=== PATIENT | female | born 1995 | race Caucasian/White ===

== ENCOUNTER 2022-09-26 07:55 | Outpatient (OUT) | payer MEDICARE, MEDICAID, SELFPAY ==
[2022-09-26 08:30] LABS: Basophils Percent Auto 0.6 % (0.2-2.0); Eosinophils Absolute Auto 0.3 10^3/uL (0.0-0.7); Eosinophils Percent Auto 4.4 % (0.9-7.0); Hematocrit 38.9 % (36.0-48.0); Immature Granulocytes Abs Auto 0.02 10^3/uL (0.00-0.03); Immature Granulocytes Pct Auto 0.3 % (0.0-0.5); Lymphocytes Absolute Auto 3.5 10^3/uL (1.2-3.8); Lymphocytes Percent Auto 48.6 % (20.5-60.0); Mean Corpuscular HGB Conc 33.4 g/dL (29.9-35.2); Mean Corpuscular Hemoglobin 30.9 pg (26.7-34.0); Mean Corpuscular Volume 92.4 fL (81.0-99.0); Monocytes Absolute Auto 0.5 10^3/uL (0.3-0.8); Monocytes Percent Auto 7.2 % (1.7-12.0); Neutrophils Absolute Auto 2.8 10^3/uL (1.4-6.5); Neutrophils Percent Auto 38.9 % (43.0-75.0); Platelet Count 134 10^3/uL (150-450); Red Blood Count 4.21 10^6/uL (4.20-5.40); Red Cell Distribution Width 13.5 % (11.0-15.0); White Blood Count 7.3 10^3/uL (4.0-11.0)
[2022-09-26 16:43] LABS: Anion Gap 12.4; BUN Creatinine Ratio 6.7; Carbon Dioxide 29.7 mmol/L (21.0-32.0); Chloride 100 mmol/L (98-107); Estimated GFR (African America >60 (>=60); Estimated GFR (Non-African Ame >60 (>=60); Free T4 1.25 ng/dL (0.76-1.46); Glucose 77 mg/dL (74-106); Potassium 4.1 mmol/L (3.5-5.1); Sodium 138 mmol/L (136-145)
[2022-09-26 16:44] LABS: Alanine Aminotransferase 18 U/L (14-59); Albumin Globulin Ratio 0.6; Albumin Level 2.8 g/dL (3.4-5.0); Alkaline Phosphatase 68 U/L (46-116); Aspartate Amino Transferase 22 U/L (15-37); Bilirubin Total 0.3 mg/dL (0.2-1.0); Calcium 9.1 mg/dL (8.5-10.1); Globulin 4.9 g/dL; Thyroid Stimulating Hormone 0.053 uIU/mL (0.358-3.740); Total Protein 7.7 g/dL (6.4-8.2)
== END 2022-09-26 07:56 ==
LOC: LAB 08:01
PROVIDERS: PCP Family Medicine; Visit Provider Family Medicine
DX: E06.3 Autoimmune thyroiditis (principal); E04.1 Nontoxic single thyroid nodule
CPT/HCPCS: 36415; 80053; 84439; 84443; 85025

== ENCOUNTER 2022-11-01 06:59 | Outpatient (OUT) | payer MEDICARE, MEDICAID, SELFPAY ==
[2022-11-01 08:43] LABS: Thyroid Stimulating Hormone 0.079 uIU/mL (0.358-3.740)
[2022-11-01 10:52] LABS: Free T4 1.38 ng/dL (0.76-1.46)
== END 2022-11-01 07:00 | disposition home or self-care (01) ==
LOC: LAB 06:59
PROVIDERS: PCP Family Medicine; Visit Provider Family Medicine
DX: E04.1 Nontoxic single thyroid nodule (principal); E06.3 Autoimmune thyroiditis
CPT/HCPCS: 36415; 84439; 84443

== ENCOUNTER 2022-11-13 05:55 | Emergency (ER) | payer MEDICARE, MEDICAID, SELFPAY ==
[2022-11-13 06:09] VITALS: PULSE 55; RESP 18; TEMP 36.6; O2SAT 100; BMI 24.3
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
--- NOTE | 2022-11-13 06:37 | CT_ITS ---
[address] [address] Patient Name: PONCE ESTEVES MRN: [id number] date: 1995 Sex: F Assigned Patient Location: ER Current Patient Location: ED.MAIN Accession/Order Number: [id number] Exam Date: 11/13/2022 06:37 Report Date: 11/13/2022 08:07 At the request of: DENIA RAGLAND Procedure: CT head/brain wo con EXAMINATION: CT head/brain wo con HISTORY: fall COMPARISON: No relevant comparison available. TECHNIQUE: Axial CT images were obtained without IV contrast. Dose reduction techniques were achieved by using automated exposure control and/or adjustment of mA and/or kV according to patient size and/or use of iterative reconstruction technique. FINDINGS: BRAIN: No edema, hemorrhage, mass, acute infarction, or inappropriate atrophy. CSF SPACES: No hydrocephalus, subarachnoid hemorrhage, or mass. Appropriate for age. SKULL: No fracture, mass, or other significant visible lesion. SINUSES: No significant mucosal thickening or fluid on the limited views. ORBITS: No appreciable abnormality on the limited views. OTHER: Skin surface contour irregularity suggestive of laceration and left supraorbital region. No radiopaque foreign body. CT/CT head/brain wo con IMPRESSION: 1. No intracranial hemorrhage or appreciable acute abnormality brain. 2. Left supraorbital soft tissue laceration. No fracture. Electronically authenticated by: KRIS MENDOZA Date: 11/13/2022 08:07
== END 2022-11-13 08:35 | disposition home or self-care (01) ==
PROVIDERS: Emergency Provider Emergency Medicine; PCP Family Medicine
DX: S09.8XXA Other specified injuries of head, initial encounter (principal); S01.112A Laceration without foreign body of left eyelid and periocular area, initial encounter; W19.XXXA Unspecified fall, initial encounter; S80.212A Abrasion, left knee, initial encounter; S80.211A Abrasion, right knee, initial encounter; Z79.899 Other long term (current) drug therapy; Z79.890 Hormone replacement therapy
CPT/HCPCS: 12011; 70450; 99284

== ENCOUNTER 2022-11-20 06:37 | Outpatient (OUT) | payer MEDICARE, MEDICAID, SELFPAY ==
[2022-11-20 06:51] LABS: Basophils Absolute Auto 0.1 10^3/uL (0.0-0.1); Basophils Percent Auto 0.7 % (0.2-2.0); Eosinophils Absolute Auto 0.3 10^3/uL (0.0-0.7); Eosinophils Percent Auto 4.2 % (0.9-7.0); Hematocrit 38.2 % (36.0-48.0); Hemoglobin 12.8 g/dL (12.0-16.0); Immature Granulocytes Abs Auto 0.02 10^3/uL (0.00-0.03); Immature Granulocytes Pct Auto 0.3 % (0.0-0.5); Lymphocytes Absolute Auto 3.6 10^3/uL (1.2-3.8); Lymphocytes Percent Auto 49.1 % (20.5-60.0); Mean Corpuscular HGB Conc 33.5 g/dL (29.9-35.2); Mean Corpuscular Hemoglobin 30.8 pg (26.7-34.0); Mean Corpuscular Volume 91.8 fL (81.0-99.0); Mean Platelet Volume 9.8 fL (9.5-13.5); Monocytes Absolute Auto 0.6 10^3/uL (0.3-0.8); Neutrophils Absolute Auto 2.8 10^3/uL (1.4-6.5); Neutrophils Percent Auto 37.7 % (43.0-75.0); Platelet Count 139 10^3/uL (150-450); Red Blood Count 4.16 10^6/uL (4.20-5.40); Red Cell Distribution Width 14.6 % (11.0-15.0); White Blood Count 7.3 10^3/uL (4.0-11.0)
[2022-11-20 08:56] LABS: Alanine Aminotransferase 18 U/L (14-59); Albumin Globulin Ratio 0.7; Albumin Level 2.9 g/dL (3.4-5.0); Alkaline Phosphatase 57 U/L (46-116); Anion Gap 10.1; Aspartate Amino Transferase 20 U/L (15-37); BUN Creatinine Ratio 7.5; Bilirubin Total 0.3 mg/dL (0.2-1.0); Calcium 8.4 mg/dL (8.5-10.1); Carbon Dioxide 31.6 mmol/L (21.0-32.0); Chloride 98 mmol/L (98-107); Estimated GFR (African America >60 (>=60); Estimated GFR (Non-African Ame >60 (>=60); Globulin 4.1 g/dL; Glucose 67 mg/dL (74-106); Potassium 3.7 mmol/L (3.5-5.1); Sodium 136 mmol/L (136-145)
[2022-11-22 13:08] LABS: Lamotrigine (Lamictal), Serum 12.4 ug/mL (2.0-20.0)
== END 2022-11-20 06:38 | disposition home or self-care (01) ==
LOC: LAB 06:37
PROVIDERS: PCP Family Medicine; Visit Provider Family Medicine
DX: G40.909 Epilepsy, unspecified, not intractable, without status epilepticus (principal); R42 Dizziness and giddiness; R26.81 Unsteadiness on feet
CPT/HCPCS: 36415; 80053; 80164; 80175; 85025

== ENCOUNTER 2022-12-18 18:31 | Outpatient (REF) | payer MEDICARE, MEDICAID, SELFPAY ==
[2022-12-18 19:35] LABS: Bilirubin Urine NEGATIVE (NEGATIVE); Blood Urine SMALL (NEGATIVE); Clarity Urine CLEAR (CLEAR); Color Urine YELLOW (YELLOW); Glucose Urine UA NEGATIVE (NEGATIVE); Ketones Urine 15 mg/dL (NEGATIVE); Leukocyte Esterase Urine TRACE (NEGATIVE); Nitrite Urine NEGATIVE (NEGATIVE); Protein Urine 30 mg/dL (NEG/TRACE); Specific Gravity Urine 1.025 (1.005-1.025)
[2022-12-18 19:36] LABS: Urine Microscopic Indicated YES
[2022-12-18 19:51] LABS: Bacteria Urine SMALL #/HPF (NONE SEEN); Cast Seen? NONE SEEN #/LPF (NONE SEEN); Crystals Seen? None Seen #/HPF (None Seen); Mucus Urine TRACE (NONE SEEN); Squamous Epithelial Cell Urine FEW #/LPF (NONE/RARE); Urine Culture Indicated YES
== END 2022-12-18 18:32 | disposition home or self-care (01) ==
LOC: LAB 18:31
PROVIDERS: PCP Family Medicine; Visit Provider Internal Medicine
DX: R30.9 Painful micturition, unspecified (principal); R82.90 Unspecified abnormal findings in urine; R39.198 Other difficulties with micturition
CPT/HCPCS: 81001; 87086; 87150

== ENCOUNTER 2023-03-01 09:30 | Emergency (ER) | payer MEDICARE, MEDICAID, SELFPAY ==
[2023-03-01 09:32] VITALS: BP 108/76; PULSE 98; RESP 18; TEMP 36.4; O2SAT 99; BMI 26.5
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
[2023-03-01 10:43] VITALS: O2SAT 99
[2023-03-01] MEDS: LIDOCAINE HCL 1%-EPINEPHRINE 1:100,000 20 ML MDV INJ (10:45)
--- NOTE | 2023-03-01 10:47 | PC.NURSE ---
1015 ketamine 200mg given im to left thigh spo2 applied to patient resp at bedside and [address] flowers pt with sr up x 2 pt placed on monitor 1020 dr flowers sutures patient at this time 1040 suture completed pt waking up at this time pt given tetanus shot at this time to left deeltoid pt tolerated well 1045 wound cleansd and bacitracin and bandaid applied to left eyebrow 1050 [facility] caregiver at bedside
--- NOTE | 2023-03-08 07:25 | PC.NURSE ---
03/01/23 pt was given adacel during er visit due to tetanus status not utd pt lily well
== END 2023-03-01 11:48 | disposition home or self-care (01) ==
PROVIDERS: Emergency Provider Emergency Medicine; PCP Family Medicine
DX: S01.112A Laceration without foreign body of left eyelid and periocular area, initial encounter (principal); S09.8XXA Other specified injuries of head, initial encounter; W01.10XA Fall on same level from slipping, tripping and stumbling with subsequent striking against unspecified object, initial encounter; Z79.899 Other long term (current) drug therapy; Z79.890 Hormone replacement therapy; F41.9 Anxiety disorder, unspecified; F84.0 Autistic disorder; G47.9 Sleep disorder, unspecified; R56.9 Unspecified convulsions
CPT/HCPCS: 12013; 90471; 90715; 96372; 99152; 99291

== ENCOUNTER 2023-05-05 18:14 | Emergency (ER) | payer MEDICARE, MEDICAID, SELFPAY ==
[2023-05-05 18:15] VITALS: BP 110/58; PULSE 86; RESP 16; TEMP 36.5; O2SAT 100; BMI 21.9
--- NOTE | 2023-05-05 18:28 | PC.NURSE ---
skin marker used to rigo area of concern, blister opened and culture obtained, Clean dry sterile dressing applied by Curtis Waddell at bedside
--- NOTE | 2023-05-05 18:28 | ED.SKABFB1 ---
HPI - Skin/Abscess/Foreign Bdy General Chief complaint: Skin/Abscess/Foreign Body Stated complaint: Wound Check Time Seen by Provider: 05/05/23 18:25 Source: patient Source comment: [facility], EMS Mode of arrival: ambulance History of Present Illness HPI narrative: patient is a 28-year-old female from [facility] [place], history of autism, partially verbal. Patient has developed a wound on her right dorsal hand, localized erythema and swelling with formation of purulent filled blister noted. Patient likely picks and has small scabs noted in different areas as well. This wound on the dorsal hand has some erythema surrounding it concerning for infection, no streaking. Patient was started on Keflex for, has had three doses but the area appears slightly worse and not improving. Transferred to Emergency Room for evaluation of hand wound. Patient alert to person, able to localize pain to the right hand. History comes from EMS and care staff. Concern for abscess, presentation favor cellulitis with infected blister Related Data Home Medications Medication Instructions Recorded Confirmed ammonium lactate 12 % topical cream applic topical 11/13/22 buspirone 30 mg tablet mg 11/13/22 clonidine HCl 0.2 mg tablet mg 11/13/22 divalproex 125 mg capsule,delayed mg PO 11/13/22 release sprinkle famotidine 40 mg tablet mg 11/13/22 guanfacine 2 mg tablet mg 11/13/22 lamotrigine 100 mg tablet mg 11/13/22 lamotrigine 200 mg tablet mg 11/13/22 levothyroxine 150 mcg tablet mcg 11/13/22 (Synthroid) loratadine 10 mg tablet mg 11/13/22 melatonin 3 mg tablet mg 11/13/22 norethindrone 1 mg-ethinyl tab 11/13/22 estradiol 35 mcg tablet (Nortrel) polyethylene glycol 3350 17 g 11/13/22 gram/dose oral powder risperidone 1 mg tablet 3 mg PO BID 11/13/22 11/13/22 Previous Rx's Medication Instructions Recorded sulfamethoxazole 800 1 tab PO Q12H 7 days #14 tabs 05/05/23 mg-trimethoprim 160 mg tablet (Bactrim DS) Allergies Allergy/AdvReac Type Severity Reaction Status Date / Time ethosuximide [From Zarontin] Allergy Unknown Verified 11/13/22 06:46 linaclotide [From Linzess] Allergy Unknown Verified 11/13/22 06:46 Review of Systems ROS Constitutional: Denies: fever or chills Cardiovascular: Denies: chest pain or palpitations Integumentary/Breast: Reports: other (infected blister right dorsal hand) Neurological: Denies: headache Psychiatric: Denies: anxiety Hematologic/Lymphatic: Denies: easy bruising Allergic/Immunologic: Denies: hives [facility] Medical History (Updated 05/05/23 @ 18:49 by PERRY Tejeda) Sleep disorder ?G47.9 - Sleep disorder, unspecified (ICD-10) Hypothyroidism ?E03.9 - Hypothyroidism, unspecified (ICD-10) Seizures ?R56.9 - Unspecified convulsions (ICD-10) Autism ?F84.0 - Autistic disorder (ICD-10) Anxiety ?F41.9 - Anxiety disorder, unspecified (ICD-10) Social History Smoking status: Never smoker Exam Narrative Exam Narrative: Nurses notes and vital signs reviewed and patient is not hypoxic. General: The patient appears well and in no apparent distress. Patient is resting comfortably on cart. Skin: Warm, dry, no pallor noted.patient has a dime-sized fluctuant blister right dorsal hand transparent with visible purulent material, 0.5 cm surrounding erythematous base, no tenderness or erythema to the palm of the hand. no evidence of tendon involvement. Head: atraumatic Neck: Supple, trachea mid-line, no tenderness, no lymphadenopathy Eye: no conjunctival injection Cardiovascular: Regular Rate and Rhythm Respiratory: Patient is in no distress, no accessory muscle use, lungs are clear to auscultation, no wheezing, rales or rhonchi. Chest Wall: no tenderness Musculoskeletal: contractures, history of autism.patient moves fingers hand and wrist freely, neg knavel's signs. Localized infected blister right dorsal hand just proximal to the 3rd MCP joint. No involvement of the palm, no fluctuance of underlying tissue but well domed blister noted with scab at the apex.no streaking or lymphangitis noted. No pain to the wrist joint, patient has small scabs to the left hand with no evidence of infection. GI: Normal bowel sounds, no tenderness to palpation, no masses appreciated. No rebound, guarding, or rigidity noted. Neurological: alert to person Psychiatric: Cooperative Constitutional Vital Signs, click to edit/add: Last Vital Signs Temp 97.7 F 05/05/23 18:15 Pulse 86 05/05/23 18:15 Resp 16 05/05/23 18:15 BP 110/58 05/05/23 18:15 Pulse Ox 100 05/05/23 18:15 O2 Del Method Room Air 05/05/23 18:15 Course Vital Signs Vital signs: Vital Signs Temperature 97.7 F 05/05/23 18:15 Pulse Rate 86 05/05/23 18:15 Respiratory Rate 16 05/05/23 18:15 Blood Pressure 110/58 05/05/23 18:15 Pulse Oximetry 100 05/05/23 18:15 Oxygen Delivery Method Room Air 05/05/23 18:15 Temperature 97.7 F 05/05/23 18:15 Pulse Rate 86 05/05/23 18:15 Respiratory Rate 16 05/05/23 18:15 Blood Pressure 110/58 05/05/23 18:15 Pulse Oximetry 100 05/05/23 18:15 Oxygen Delivery Method Room Air 05/05/23 18:15 MDM - Skin/Abscess/Foreign Bdy MDM Narrative Medical decision making narrative: Patient given Motrin for pain, infected blister suspected coming from base of scabbing, superficial. Patient had three doses of Keflex. Appearance favors possible MRSA. We'll cover with Bactrim as well. Wound culture pending, precautions discussed with care facility. They may use soap and water to the wound for cleaning and wet to dry dressings pending further healing. The patient is to followup with primary care physician in the coming week for reevaluation pending wound culture or to return to the emergency department should any of the signs or symptoms worsen or new symptoms develop. Patient had questions answered. The patient agrees with the following Diagnosis and Treatment plan and the patient will be discharged home. Discharge Plan Discharge Chief Complaint: Skin/Abscess/Foreign Body Clinical Impression: Infected blister Cellulitis Qualifiers: Site of cellulitis: extremity Site of cellulitis of extremity: upper extremity Laterality: right Qualified Code(s): L03.113 - Cellulitis of right upper limb Patient Disposition: Home, Self-Care Time of Disposition Decision: 18:30 Condition: Good Prescriptions / Home Meds: New sulfamethoxazole-trimethoprim [Bactrim DS] 800-160 mg tablet 1 tab PO Q12H 7 Days Qty: 14 0RF No Action lamotrigine 200 mg tablet famotidine 40 mg tablet melatonin 3 mg tablet clonidine HCl 0.2 mg tablet buspirone 30 mg tablet levothyroxine [Synthroid] 150 mcg tablet ammonium lactate 12 % cream TOPICAL polyethylene glycol 3350 17 gram/dose powder guanfacine 2 mg tablet divalproex 125 mg capsule, delayed rel sprinkle PO risperidone 1 mg tablet 3 mg PO BID lamotrigine 100 mg tablet loratadine 10 mg tablet Nortrel 1/35 (28) 1-35 mg-mcg tablet Instructions: Wound Infection (ED), Cellulitis (ED) Additional Instructions: wound culture pending,( SUSPECT MRSA- STANDARD PRECAUTIONS PENDING CULTURE) suspect infected blister, drained ad Bactrim one tablet twice a day for seven days to current Keflex prescription. Take with food. May apply wet to dry dressings until skin heals. Recommend soap and water daily. Stand Alone Forms: Portal Instructions Referrals: ADRIEL TILLEY DO [Primary Care Provider] - 1 week ED ID Incision & Drainage Moderate Sedation Message Please read if using moderate sedation: infected bursa right dorsal hand, dimes size localized erythema at margins favoring cellulitis. Fluctuant skin bubble ( see through blister) with purulent material beneath stemming from apex of scab distally. Skin cleansed with alcohol prep pad, utilizing aseptic technique a left blade scalpel was used to unroof the posterior and purulent/brown material expressed and collected with wound culture swab. No evidence of bleeding, underlying dermis appears intact and full thickness abscess not suspected. Patient tolerated this well without pain. Dry sterile gauze pad applied along with Rah bandage to secure. Neurovascular intact status post drainage procedure.
--- OUTSIDE RECORDS SUMMARY | 2023-05-05 18:33 | XMS_ITS | CCD ---
Author Name Unknown Address [address] [place] [address] Organization [facility] Care Team Providers Care Manager Of Tires Sales Name Role Phone PHYSICIAN, DEFAULT Unavailable Unavailable PHYSICIAN, DEFAULT Unavailable Unavailable PB BARTH Unavailable Unavailable Unavailable Primary Care Provider Unavailabl e PROVIDER, UNKNOWN Attending Unavailable PROVIDER, UNKNOWN Admitting Unavailable TILLEY, DR ADRIEL Craft Admitting Unavailable TILLEY, DR ADRIEL Craft Attending Unavailable TILLEY, DR ADRIEL Craft Primary Care Unavailable TILLEY, DR ADRIEL Craft Consulting Unavailable MISC, DR HERNANDEZ Admitting Unavailable MISC, DR HERNANDEZ Attending Unavailable TILLEY, DR ADRIEL Craft Primary Care Unavailable MISC, DR HERNANDEZ Consulting Unavailable TILLEY, DR ADRIEL Craft Admitting Unavailable TILLEY, DR ADRIEL Craft Attending Unavailable TILLEY, DR ADRIEL Craft Primary Care Unavailable TILLEY, DR ADRIEL Craft Consulting Unavailable MISC, DR HERNANDEZ Admitting Unavailable MISC, DR HERNANDEZ Attending Unavailable REQUEST, DR OROZCO LISTED Primary Care Unavaila ble MISC, DR HERNANDEZ Consulting Unavailable ZIEBER, DR KRIS White Consulting Unavailable TILLEY, DR ADRIEL Craft Admitting Unavailable TILLEY, DR ADRIEL Craft Attending Unavailable REQUEST, DR OROZCO LISTED Primary Care Unavaila ble TILLEY, DR ADRIEL Craft Consulting Unavailable HAY ., DR BLOCK Consulting Unavailable HAY ., DR BLOCK Admitting Unavailable HAY ., DR BLOCK Attending Unavailable TILLEY, DR ADRIEL Craft Primary Care Unavailable REQUEST, DR OROZCO LISTED Primary Care Unavaila ble TILLEY, DR ADRIEL Craft Admitting Unavailable TILLEY, DR ADRIEL Craft Attending Unavailable TILLEY, DR ADRIEL Craft Consulting Unavailable MISC, DR HERNANDEZ Admitting Unavailable MISC, DR HERNANDEZ Attending Unavailable REQUEST, DR OROZCO LISTED Primary Care Unavaila ble WEST, DR MATILDE Stanley Consulting Unavailable MISC, DR HERNANDEZ Consulting Unavailable Allergies Allergy Classification Reported Allergen(s) Allergy Type Date of Onset Reaction(s) Facility (3 sources) Ethosuximide; Translations: [ETHOSUXIMIDE] Drug Allergy 09-15-[address] [facility] (1 source) Allopurinol Drug Allergy 07-16-2013 [facility] (1 source) Ethosuximide Drug Allergy 07-16-2013 [facility] Medications Current Medications Medication Drug Class(es) Dates Sig (Normalized) Sig (Original) chlorhexidine gluconate 1.2 mg/ml mouthwash (2 sources) Start: 09-15-2014 take 15 mL by mouth twice daily chlorhexidine (PERIDEX) 0.12 % oral solution Take 15 mL by mouth 2 times daily. 1 Bottle 0 09/15/2014 Active cloNIDine (2 sources) Central alpha-2 Adrenergic Agonist CLONIDINE HCL ORAL Take by mouth. 0 Active docusate sodium 100 mg oral capsule (2 sources) take 1 capsule by mouth twice daily docusate sodium (COLACE) 100 MG capsule Take 100 mg by mouth 2 times daily. 0 Active fluticasone (2 sources) Corticosteroid Fluticasone Propionate (FLONASE NASAL) [place] into each nostril. 0 Active ibuprofen 600 mg oral tablet (2 sources) Nonsteroidal Anti-inflammatory Drug Start: 09-15-2014 take 1 tablet by mouth every six hours as needed for pain ibuprofen (MOTRIN) 600 MG tablet Take 1 Tab by mouth every 6 hours as needed for Pain. 30 Tab 1 09/15/2014 Active lactobacillus acidophilus 16 mg oral capsule (2 sources) Lactobacillus (ACIDOPHILUS) CAPS Take by mouth. 0 Active Selenium (SELENIMIN ORAL) (2 sources) Selenium (SELENI MIN ORAL) Take by mouth. 0 Active sennosides, nursing home 15 mg oral tablet (2 sources) take 1 tablet by mouth once daily as needed for constipation Sennosides (SENNA) 15 MG tablet Take 1 Tab by mouth daily as needed for Constipation. 0 Active topiramate 25 mg oral tablet (2 sources) take 3 tablets by mouth twice daily topiramate (TOPIRAGEN) 25 MG tablet Take 75 mg by mouth 2 times daily. 0 Active trihexyphenidyl hydrochloride 2 mg oral tablet (2 sources) take 1 tablet by mouth three times daily trihexyphenidyl 2 MG tablet Take 2 mg by mouth 3 times daily. 0 Active zinc gluconate 50 mg oral tablet (2 sources) Zinc Gluconate 5 0 MG TABS Take by mouth. 0 Active Problems Problem Classification Problem Date Documented Da te Episodic/Chronic E Codes: Fall (1 source) Fall on same level from slipping, tripping and stumbling with subsequent striking against unspecified object, initial encounter; Translations: [FALL SAME LVL SLIP STRK UNS OBJ INT] Onset: 07-23-2022 Episodic Epilepsy; convulsions (5 sources) Epilepsy, unspecified, not intractable, without status epilepticus; Translations: [EPILEPSY UNS NOT INTRACT W/O SE] Onset: 04-08-2022 Chronic Genitourinary symptoms and ill-defined conditions (1 source) Unspecified urinary incontinence; Translations: [UNSPECIFIED URINARY INCONTINENCE] Onset: 08-24-2022 Chronic Genitourinary symptoms and ill-defined conditions (4 sources) Anuria and oliguria; Translations: [ANURIA AND OLIGURIA] Onset: 08-21-2022 Episodic Menopausal disorders (1 source) Hormone replacement therapy; Translations: [HORMONE REPLACEMENT THERAPY] Onset: 07-23-2022 Episodic Open wounds of head; neck; and trunk (4 sources) Laceration without foreign body of other part of head, initial encounter; Translations: [LAC W/O FB OTH PART HEAD INIT ENC] Onset: 07-21-2022 Episodic Other aftercare (5 sources) Other residential (current) drug therapy; Translations: [OTH ASSISTED CURRENT DRUG THERAPY] Onset: 04-03-2022 Episodic Superficial injury; contusion (1 source) Contusion of other part of head, initial encounter; Translations: [CONTUS OTH PRT HEAD INITIAL ENCNTR] Onset: 07-23-2022 Episodic Thyroid disorders (13 sources) Hypothyroidism, unspecified; Translations: [Autoimmune thyroiditis] Onset: 06-27-2022 Chronic Results Test Name Value Interpretation Reference Range Facility FREE T4on 08-29-2022 Free T4 [Mass/Vol] 1.76 ng/dL Critically high 0.76-1.46 [facility] Comment on above: Performed By: #### F T4 #### [facility] [address] [place], [place] [address] Dr. Volodymyr Paez TSHon 08-29-2022 TSH Qn m[IU]/L Critically low 0.358-3.740 [facility] Comment on above: Performed By: #### T SH #### [facility] [address] [place] [address] Dr. Volodymyr Paez CULTURE URINEon 08-24-2022 CULTURE URINE Isolate 1 Streptococcus agalactiae >100,000 cfu/mL of ORGANISM 1 Streptococcus agalactiae ANTIBIOTIC M.I.C RX STATUS Benzylpenicillin <=0.06 S F Ampicillin <=0.25 S F Cefotaxime <=0.12 S F Ceftriaxone <=0.12 S F Levofloxacin 1 S F Inducible Clindamycin Resistance Neg NEG F Erythromycin >=8 R F Clindamycin >=1 R F Linezolid <=2 S F Vancomycin 0.5 S F Tetracycline >=16 R F Normal [facility] Comment on above: Performed By: #### T SH, CMP #### [facility] [address] [place] [address] Dr. Volodymyr Paez UA (CLEAN/CATCH) ELECTRO MECHANICAL DESIGNER/MICRO I F IND.on 08-21-2022 Bilirubin Ql (U) Negative Normal NEGATIVE [facility] Comment on above: Performed By: #### U ACSIND ICRO #### [facility] [address] [place] [address] Dr. Volodymyr Paez Clarity (U) CLEAR Normal CLEAR [facility] Comment on above: Performed By: #### U ACSSHAHEEN, ICRO #### [facility] [address] [place] [address] Dr. Volodymyr Paez Color (U) LT. YELLOW Normal YELLOW [facility] Comment on above: Performed By: #### U ACSIND UMICRO #### [facility] [address] [place] [address] Dr. Volodymyr Paez Glucose Ql (U) Negative Normal NEGATIVE [facility] Comment on above: Performed By: #### U ACSIND, UMICRO #### [facility] [address] [place] [address] Dr. Volodymyr Paez Hemoglobin Ql (U) Negative Normal NEGATIVE [facility] Comment on above: Performed By: #### U ACSIND, UMICRO #### [facility] [address] [place] [address] Dr. Volodymyr Paez Ketones Ql (U) Negative Normal NEGATIVE [facility] Comment on above: Performed By: #### U ACSIND, UMICRO #### [facility] [address] [place] [address] [address] Volodymyr Paez LEUKOCYTES SMALL Abnormal NEGATIVE [facility] Comment on above: Performed By: #### U ACSIND, UMICRO #### [facility] [address] [place] [address] [address] Volodymyr Paez Nitrite Ql (U) Negative Normal NEGATIVE [facility] Comment on above: Performed By: #### U ACSSHAHEEN, UMICRO #### [facility] [address] [place] [address] [address] Volodymyr Paez pH (U) 7.0 [pH] Normal 5-9 [facility] Comment on above: Performed By: #### U ACSSHAHEEN, UMICRO #### [facility] [address] [place] [address] Dr. Volodymyr Paez SPEC GRAVITY 1.020 Normal 1.005-<=1.025 [facility] Comment on above: Performed By: #### U ACSSHAHEEN, ICRO #### [facility] [address] [place] [address] Dr. Volodymyr Paez UA PROTEIN Negative Normal NEGATIVE/ TRACE [facility] Comment on above: Performed By: #### U ACSSHAHEEN, UMICRO #### [facility] [address] [place] [address] Dr. Volodymyr Paez UR MICRO IND INDICATED Normal [facility] Comment on above: Performed By: #### U ACSSHAHEEN, UMICRO #### [facility] [address] [place] [address] Dr. Volodymyr Paez Urobilinogen Qn (U) 0.2 {Leta'U}/dL Normal 0.2 - 1. 0 [facility] Comment on above: Performed By: #### U ACSSHAHEEN, UMICRO #### [facility] [address] [place] [address] [address] Volodymyr Paez URINE MICROSCOPIC ONLYon BACTERIA SMALL Abnormal NONE SEEN [facility] Comment on above: Performed By: #### U ACSIND, UMICRO #### [facility] [address] [place] [address] Dr. Volodymyr Paez Bacteria identified Cx Nom (U) INDICATED Normal [facility] Comment on above: Performed By: #### U ACSSHAHEEN, UMICRO #### [facility] [address] [place] [address] [address] Volodymyr Paez CAST NONE SEEN Normal NONE SEEN [facility] Comment on above: Performed By: #### U ACSSHAHEEN, UMICRO #### [facility] [address] [place] [address] Dr. Volodymyr Paez Crystals LM Nom (Urine sed) NONE SEEN Normal NONE SEEN [facility] Comment on above: Performed By: #### U ACSSHAHEEN ICRO #### [facility] [address] [place] [address] Dr. Volodymyr Paez Epithelial cells LM Ql (Urine sed) MODERATE Abnormal NONE SEEN /RARE [facility] Comment on above: Performed By: #### U ACSSHAHEEN ICRO #### [facility] [address] [place] [address] Dr. Volodymyr Paez MUCOUS TRACE Abnormal NONE SEEN [facility] Comment on above: Performed By: #### U ACSSHAHEEN ICRO #### [facility] [address] [place] [address] Dr. Volodymyr Paez RBC 2-5 Abnormal 0-2 [facility] Comment on above: Performed By: #### U VERA UMICRO #### [facility] [address] [place] [address] Dr. Volodymyr Paez WBC 10-20 Abnormal NONE SEEN [facility] Comment on above: Performed By: #### U ACSSHAHEEN UMICRO #### [facility] [address] [place] [address] Dr. Volodymyr Paez LAMOTRIGINEon 08-13-2022 Lamotrigine, Serum 11.2 ug/mL Normal 2.0-20.0 [facility] Comment on above: Result Comment: Dete ction Limit = 1.0 Performed By: #### T SH, CMP #### [facility] [address] [place] [address] [address] Volodymyr Paez CBC AUTO DIFFon 08-09-2022 BASO # 0.0 103/ul Normal 0.0-0.1 [facility] Comment on above: Performed By: #### C BC #### [facility] [address] [place] [address] Dr. Volodymyr Paez Basophils/100 WBC (Bld) 0.4 % Normal 0.2-2.0 [facility] Comment on above: Performed By: #### C BC #### [facility] [address] [place] [address] Dr. Volodymyr Paez EO # 0.4 103/ul Normal 0.0-0.7 [facility] Comment on above: Performed By: #### C BC #### [facility] [address] [place] [address] Dr. Volodymyr Paez Eosinophils/100 WBC (Bld) 4.3 % Normal 0.9-7.0 [facility] Comment on above: Performed By: #### C BC #### [facility] [address] [place] [address] Dr. Volodymyr Paez Erythrocyte distribution width (RBC) [Ratio] 13.2 % Normal 11.0-15.0 [facility] Comment on above: Performed By: #### C BC #### [facility] [address] [place] [address] Dr. Volodymyr Paez Hematocrit (Bld) [Volume fraction] 40.2 % Normal 36.0-48.0 [facility] Comment on above: Performed By: #### C BC #### [facility] [address] [place] [address] Dr. Volodymyr Paez Hemoglobin (Bld) [Mass/Vol] 13.8 g/dL Normal 12.0-16.0 [facility] Comment on above: Performed By: #### C BC #### [facility] [address] [place] [address] Dr. Volodymyr Paez IG # 0.02 10e3/ul Normal 0.00-0.03 [facility] Comment on above: Performed By: #### C BC #### [facility] [address] [place] [address] Dr. Volodymyr Paez IG % 0.2 % Normal 0.0-0.5 [facility] Comment on above: Performed By: #### C BC #### [facility] [address] [place] [address] Dr. Volodymyr Paez LYMPH # 4.3 103/ul Critically high 1.2-3.8 [facility] Comment on above: Performed By: #### C BC #### [facility] [address] [place] [address] Dr. Volodymyr Paez Lymphocytes/100 WBC (Bld) 51.8 % Normal 20.5-60.0 [facility] Comment on above: Performed By: #### C BC #### [facility] [address] [place] [address] Dr. Volodymyr Paez MANUAL DIFF REQ NO Normal [facility] Comment on above: Performed By: #### C BC #### [facility] [address] [place] [address] Dr. Volodymyr Paez MCH (RBC) [Entitic mass] 31.0 pg Normal 26.7-34.0 [facility] Comment on above: Performed By: #### C BC #### [facility] [address] [place] [address] Dr. Volodymyr Paez MCHC (RBC) [Mass/Vol] 34.3 g/dL Normal 29.9-35.2 [facility] Comment on above: Performed By: #### C BC #### [facility] [address] [place] [address] Dr. Volodymyr Paez MCV (RBC) [Entitic vol] 90.3 fL Normal 81.0-99.0 [facility] Comment on above: Performed By: #### C BC #### [facility] [address] [place] [address] Dr. Volodymyr Paez MONO # 0.9 103/ul Critically high 0.3-0.8 [facility] Comment on above: Performed By: #### C BC #### [facility] [address] [place] [address] Dr. Volodymyr Paez Monocytes/100 WBC (Bld) 10.4 % Normal 1.7-12.0 [facility] Comment on above: Performed By: #### C BC #### [facility] [address] [place] [address] Dr. Volodymyr Paez NEUT # 2.7 103/ul Normal 1.4-6.5 [facility] Comment on above: Performed By: #### C BC #### [facility] [address] [place] [address] Dr. Volodymyr Paez Neutrophils/100 WBC (Bld) 32.9 % Critically low 43.0-75.0 [facility] Comment on above: Performed By: #### C BC #### [facility] [address] [place] [address] Dr. Volodymyr Paez Platelet mean volume (Bld) [Entitic vol] 10.3 fL Normal 9.5-13.5 [facility] Comment on above: Performed By: #### C BC #### [facility] [address] [place] [address] Dr. Volodymyr Paez PLT 231 103/ul Normal 150-450 [facility] Comment on above: Performed By: #### C BC #### [facility] [address] [place] [address] Dr. Volodymyr Paez RBC 4.45 106/ul Normal 4.20-5.40 [facility] Comment on above: Performed By: #### C BC #### [facility] [address] [place] [address] Dr. Volodymyr Paez WBC 8.2 103/ul Normal 4.0-11.0 [facility] Comment on above: Performed By: #### C BC #### [facility] [address] [place] [address] Dr. Volodymyr Paez DEPAKENE/ VALPROIC ACIDon DEPAKENE 80.3 ug/ml Normal 50.0-100.0 [facility] Comment on above: Performed By: #### V ALP #### [facility] [address] [place] [address] Dr. Volodymyr Paez US THYROIDon 07-10-2022 US THYROID EXAMINATION: US THYROID HISTORY: Autoimmune thyroiditis COMPARISON: 10/24/2021 TECHNIQUE: Sonographic images of the thyroid gland were obtained. FINDINGS: The right thyroid lobe is normal in size and contour measuring 4.1 x 0.6 x 0.9 cm. Mildly heterogeneous echotexture with no focal nodules. The thyroid isthmus measures 3 mm. No focal nodules. The left thyroid lobe measures 4.3 x 0.8 x 1.1 cm. Mildly heterogeneous echotexture. 2 focal nodules, one nodule measuring over 5 mm Nodule 1:0.6 x 0.6 x 0.3 cm. Solid, hypoechoic, wide, smooth margins, no calcifications. TR 4 IMPRESSION: Diffuse thyroid atrophy 2 subcentimeter left thyroid nodules measuring up to 6 mm. No follow-up required TI-RADS: [employer] [place] [employer] TI-RADS committee's white paper recommendations for thyroid lesions classified as TR4 (moderately suspicious) are listed below: > 1.0 cm. Follow-up ultrasound in 1, 2, 3, and 5 years. > 1.5 cm. FNA. J. Am Chidi Radiol 2017;14:[id number]. Electronically authenticated by: MATILDE WATERMAN Date: 2022-07-10 13:01 Normal [facility] LAMOTRIGINEon 06-29-2022 Lamotrigine, Serum 14.2 ug/mL Normal 2.0-20.0 [facility] Comment on above: Result Comment: Dete ction Limit = 1.0 Performed By: #### T AKIKO, CMP #### [facility] [address] [place] [address] Dr. Volodymyr Paez CBC AUTO DIFFon 06-27-2022 BASO # 0.1 103/ul Normal 0.0-0.1 [facility] Comment on above: Performed By: #### T AKIKO, CMP #### [facility] [address] [place] [address] Dr. Volodymyr Paez Basophils/100 WBC (Bld) 0.7 % Normal 0.2-2.0 [facility] Comment on above: Performed By: #### T AKIKO, CMP #### [facility] [address] [place] [address] Dr. Volodymyr Paez EO # 0.4 103/ul Normal 0.0-0.7 [facility] Comment on above: Performed By: #### T SH, CMP #### [facility] [address] [place] [address] Dr. Volodymyr Paez Eosinophils/100 WBC (Bld) 5.1 % Normal 0.9-7.0 [facility] Comment on above: Performed By: #### T SH, CMP #### [facility] [address] [place] [address] Dr. Volodymyr Paez Erythrocyte distribution width (RBC) [Ratio] 13.1 % Normal 11.0-15.0 [facility] Comment on above: Performed By: #### T AKIKO, CMP #### [facility] [address] [place] [address] Dr. Volodymyr Paez Hematocrit (Bld) [Volume fraction] 39.7 % Normal 36.0-48.0 [facility] Comment on above: Performed By: #### T SH, CMP #### [facility] [address] [place] [address] Dr. Volodymyr Paez Hemoglobin (Bld) [Mass/Vol] 13.3 g/dL Normal 12.0-16.0 [facility] Comment on above: Performed By: #### T AKIKO, CMP #### [facility] [address] [place] [address] Dr. Volodymyr Paez IG # 0.02 10e3/ul Normal 0.00-0.03 [facility] Comment on above: Performed By: #### T SH, CMP #### [facility] [address] [place] [address] Dr. Volodymyr Paez IG % 0.3 % Normal 0.0-0.5 [facility] Comment on above: Performed By: #### T SH, CMP #### [facility] [address] [place] [address] Dr. Volodymyr Paez LYMPH # 3.6 103/ul Normal 1.2-3.8 [facility] Comment on above: Performed By: #### T SH, CMP #### [facility] [address] [place] [address] Dr. Volodymyr Paez Lymphocytes/100 WBC (Bld) 47.4 % Normal 20.5-60.0 [facility] Comment on above: Performed By: #### T SH, CMP #### [facility] [address] [place] [address] Dr. Volodymyr Paez MANUAL DIFF REQ NO Normal [facility] Comment on above: Performed By: #### T SH, CMP #### [facility] [address] [place] [address] Dr. Volodymyr Paez MCH (RBC) [Entitic mass] 30.3 pg Normal 26.7-34.0 [facility] Comment on above: Performed By: #### T SH, CMP #### [facility] [address] [place] [address] Dr. Volodymyr Paez MCHC (RBC) [Mass/Vol] 33.5 g/dL Normal 29.9-35.2 [facility] Comment on above: Performed By: #### T SH, CMP #### [facility] [address] [place] [address] Dr. Volodymyr Paez MCV (RBC) [Entitic vol] 90.4 fL Normal 81.0-99.0 [facility] Comment on above: Performed By: #### T SH, CMP #### [facility] [address] [place] [address] Dr. Volodymyr Paez MONO # 0.9 103/ul Critically high 0.3-0.8 [facility] Comment on above: Performed By: #### T SH, CMP #### [facility] [address] [place] [address] Dr. Volodymyr Paez Monocytes/100 WBC (Bld) 11.3 % Normal 1.7-12.0 [facility] Comment on above: Performed By: #### T SH, CMP #### [facility] [address] [place] [address] Dr. Volodymyr Paez NEUT # 2.7 103/ul Normal 1.4-6.5 [facility] Comment on above: Performed By: #### T SH, CMP #### [facility] [address] [place] [address] Dr. Volodymyr Paez Neutrophils/100 WBC (Bld) 35.2 % Critically low 43.0-75.0 [facility] Comment on above: Performed By: #### T SH, CMP #### [facility] [address] [place] [address] Dr. Volodymyr Paez Platelet mean volume (Bld) [Entitic vol] 11.4 fL Normal 9.5-13.5 [facility] Comment on above: Performed By: #### T SH, CMP #### [facility] [address] [place] [address] Dr. Volodymyr Paez PLT 96 103/ul Critically low 150-450 [facility] Comment on above: Result Comment: slid e made; no plt clumps seen Performed By: #### T SH, CMP #### [facility] [address] [place] [address] Dr. Volodymyr Paez RBC 4.39 106/ul Normal 4.20-5.40 [facility] Comment on above: Performed By: #### T SH, CMP #### [facility] [address] [place] [address] Dr. Volodymyr Paez WBC 7.6 103/ul Normal 4.0-11.0 [facility] Comment on above: Performed By: #### T SH, CMP #### [facility] [address] [place] [address] Dr. Volodymyr Paez FREE T4on 06-27-2022 Free T4 [Mass/Vol] 1.45 ng/dL Normal 0.76-1.46 [facility] Comment on above: Performed By: #### F T4 #### [facility] [address] [place] [address] Dr. Volodymyr Paez PROF 14(COMP METB)on 023 Albumin [Mass/Vol] 3.2 g/dL Critically low 3.4-5.0 [facility] Comment on above: Performed By: #### T SH, CMP #### [facility] [address] [place], [place] [id number] Dr. Volodymyr Paez Albumin/Globulin [Mass ratio] 0.7 {ratio} Normal [facility] Comment on above: Performed By: #### T AKIKO, CMP #### [facility] [address] [place] [address] Dr. Volodymyr Paez ALP [Catalytic activity/Vol] 65 U/L Normal 46-116 [facility] Comment on above: Performed By: #### T AKIKO, CMP #### [facility] [address] [place] [address] Dr. Volodymyr Paez ALT [Catalytic activity/Vol] 20 U/L Normal 14-59 [facility] Comment on above: Performed By: #### T AKIKO, CMP #### [facility] [address] [place] [address] Dr. Volodymyr Paez Anion gap [Moles/Vol] 11.3 mmol/L Normal [facility] Comment on above: Performed By: #### T AKIKO, CMP #### [facility] [address] [place] [address] Dr. Volodymyr Paez AST [Catalytic activity/Vol] 25 U/L Normal 15-37 [facility] Comment on above: Performed By: #### T AKIKO, CMP #### [facility] [address] [place] [address] Dr. Volodymyr Paez Bilirubin [Mass/Vol] 0.3 mg/dL Normal 0.2-1.0 [facility] Comment on above: Performed By: #### T AKIKO, CMP #### [facility] [address] [place] [address] Dr. Volodymyr Paez Calcium [Mass/Vol] 9.5 mg/dL Normal 8.5-10.1 [facility] Comment on above: Performed By: #### T AKIKO, CMP #### [facility] [address] [place] [address] Dr. Volodymyr Paez Chloride [Moles/Vol] 100 mmol/L Normal 98-107 [facility] Comment on above: Performed By: #### T AKIKO, CMP #### [facility] [address] [place] [address] Dr. Volodymyr Paez CO2 [Moles/Vol] 30.1 mmol/L Normal 21.0-32.0 [facility] Comment on above: Performed By: #### T SH, CMP #### [facility] [address] [place] [address] Dr. Volodymyr Paez Creatinine [Mass/Vol] 0.92 mg/dL Normal 0.55-1.02 [facility] Comment on above: Performed By: #### T SH, CMP #### [facility] [address] [place] [address] Dr. Volodymyr Paez EGFR-AF PALAUAN >60 Normal >=60 [facility] Comment on above: Performed By: #### T SH, CMP #### [facility] [address] [place] [address] Dr. Volodymyr Paez EGFR-NON AF PALAUAN >60 Normal >=60 [facility] Comment on above: Performed By: #### T SH, CMP #### [facility] [address] [place] [address] Dr. Volodymyr Paez Globulin (S) [Mass/Vol] 4.4 g/dL Normal [facility] Comment on above: Performed By: #### T SH, CMP #### [facility] [address] [place] [address] Dr. Volodymyr Paez Glucose [Mass/Vol] 76 mg/dL Normal 74-106 [facility] Comment on above: Performed By: #### T SH, CMP #### [facility] [address] [place] [address] Dr. Volodymyr Paez Potassium [Moles/Vol] 4.4 mmol/L Normal 3.5-5.1 [facility] Comment on above: Performed By: #### T SH, CMP #### [facility] [address] [place] [address] Dr. Volodymyr Paez Protein [Mass/Vol] 7.6 g/dL Normal 6.4-8.2 [facility] Comment on above: Performed By: #### T SH, CMP #### [facility] [address] [place] [address] Dr. Volodymyr Paez Sodium [Moles/Vol] 137 mmol/L Normal 136-145 [facility] Comment on above: Performed By: #### T SH, CMP #### [facility] [address] [address] [address] Volodymyr Paez Urea nitrogen [Mass/Vol] 7.0 mg/dL Normal 7.0-18.0 [facility] Comment on above: Performed By: #### T SH, CMP #### [facility] [address] [address] [address] Volodymyr Paez Urea nitrogen/Creatinine [Mass ratio] 7.6 mg/mg Normal [facility] Comment on above: Performed By: #### T SH, CMP #### [facility] [address] [place] [address] Dr. Volodymyr Paze TSHon 06-27-2022 TSH 0.099 uIU/mL Critically low 0.358-3.740 [facility] Comment on above: Performed By: #### T SH, CMP #### [facility] [address] [address] [address] Volodymyr Paez Progress Noteson 05-01-2022 Technology Sales Representative Authentication Interface Message Text Received message from Connie ([facility]) -- Bina from [place] calling to schedule an OR visit. -- I spoke to Cate today, informed her of the wait time -- we will call when there's an available opening for Ms. Esteves. Cate said that she will leave message for Bina and note it in charts. ----- Sunday, May 01, 2022 at 8:14:46 AM ----- ----- Provider: Parish Castellanos Specialist -- Clinic: [place] ----- Normal [facility] Telephone Encounteron 2022 Technology Sales Representative Authentication Interface Message Text Bina from [facility] calling in. She wanted to know where the pt was at on the OR wait list. E-mail sent to Connie E-mail sent 04/30/22 Normal [facility] DEPAKENE/ VALPROIC ACIDon DEPAKENE 72.4 ug/ml Normal 50.0-100.0 [facility] Comment on above: Performed By: #### T , [facility] #### [facility] [address] [address] [address] Volodymyr Paez Progress Noteson 03-13-2022 Technology Sales Representative Authentication Interface Message Text ----- Sunday, March 13, 2022 at 11:58:40 AM ----- ----- Provider: Ashely Coreas DMD -- Clinic: [place] ----- OR EVALUATION Patient presents for evaluation to determine best course of treatment due to history of Mental Disorders. Patient is accompanied by caregiver for today's appointment. Patient partially cooperated for a partial intraoral exam. Clinical findings: It is best suited that this patient have full comprehensive examination, radiographs and treatment completed in the OR setting. Explained that the patient will be added to our OR waiting list, and the legal guardian will be contacted once a time slot becomes available. Legal Guardian: Toshia Esteves Phone #: [phone] NOTE: Patient had a hard time leaning her head back, but allowed me to look. Patient not indicating she is in any pain. #8 is very discolored - most likely will need RCT treatment. Gingiva very red and irritated. Caregiver did not know who patient's guardian was or contact information, looked it up in [facility]. Next Visit: OR Normal [facility] US THYROIDon 10-25-2021 US THYROID EXAMINATION: US THYROID HISTORY: Non-toxic multinodular goiter COMPARISON: Ultrasound thyroid 02/23/2020 FINDINGS: RIGHT LOBE: Slightly enlarged lobe with heterogeneous echotexture. No suspicious nodules. Lobe size: 5.0 x 1.2 x 1.0 cm LEFT LOBE: Heterogeneous and containing an 11 x 10 x 7 mm TR 4 nodule and a 5 x 5 x 4 mm TR 4 nodule. Lobe size: 4.8 x 1 0.3, 0.1 0.3 cm ISTHMUS: Slightly thickened and heterogeneous echotexture. Thickness: 5 mm IMPRESSION: 1. Slightly prominent and heterogeneous thyroid gland; nonspecific. 2. Slight change in size and appearance of the 2 left lobe nodules, but by criteria annual screening is still recommended. TR 4: The [place] [employer] TI-RADS committee's white paper recommendations for thyroid lesions classified as TR4 (moderately suspicious) are listed below: > 1.0 cm. Follow-up ultrasound in 1, 2, 3, and 5 years. > 1.5 cm. FNA. J. Am Chidi Radiol 2017;14:587-595. Electronically authenticated by: KRIS MENDOZA Date: 2021-10-25 09:[address] [facility] FREE T4on 10-24-2021 Free T4 [Mass/Vol] 1.08 ng/dL Normal 0.76-1.46 [facility] Comment on above: Performed By: #### T SH, CMP #### [facility] [address] [address] [address] Volodymyr Paez TSHon 10-24-2021 TSH 12.719 uIU/mL Critically high 0.358-3.740 [facility] Comment on above: Performed By: #### T SH #### [facility] [address] [address] [address] Volodymyr Paez Encounters Encounter Date Encounter Type Care Provider Facility Start: 08-29-2022 End: 08-30-[address] ADRIEL TILLEY Facility:[facility] Start: 08-21-2022 End: 08-21-[address] DOCTOR JAVED Facility:[facility] Start: 08-09-2022 End: 08-10-[address] ADRIEL TILLEY Facility:[facility] Start: 07-21-2022 End: 07-21-[address] UMAIR Leung Facility:[facility] Start: 07-10-2022 End: 07-11-[address] DOCTOR JAVED Facility:[facility] Start: 06-27-2022 End: 06-28-[address] OROZCO LISTED REQUEST Facility:[facility] Start: 04-30-2022 Telephone encounter Martha dill DMD Work Phone: [facility] Comment on above: Dental Start: 04-03-2022 End: 04-04-[address] ADRIEL TILLEY Facility:[facility] Start: 03-13-2022 End: 03-18-2022 ambulatory UNKNOWN PROVIDER Facility:[facility] Start: 03-13-2022 End: 03-18-2022 Patient encounter procedure Martha Cooperrider DMD Work Phone: [facility] Start: 10-24-2021 End: 10-25-[address] DOCTOR INFANTE Facility: Start: 11-07-2016 End: 11-08-2016 Ambulatory DEFAULT PHYSICIAN Facility[facility] Plan of Treatment Date Care Activity Detail Author Start: 2043 Shingles (RZV) Vacci ne (1 of 2) Shingles (RZV) Vaccine (1 of 2) [facility] Start: 01-20-2022 Influenza vaccination Influenza Vacc ine (#1) [facility] Start: 07-19-2020 COVID-19 Vaccine (3 - Booster for Pfizer series) COVID-19 Vaccine (3 - Booster for Pfizer series) [facility] Start: 2014 Screening for malign ant neoplasm of cervix Pap Smear [facility] Start: 2011 Hepatitis C screening Hepatitis C An tibody [facility] Start: 2011 Tetanus + diphtheria + acellular pertussis vaccine (product) Tdap Booster [facility] Start: 01-02-2008 HIV screening HIV Test [facility] Payers Date Payer Category Payer Unknown 2013 Medicaid [id number] 2012 Medicare MEDICARE MEDICAR E PART A & B [id number] 2012-Present [address] [place] [address] Medicare [id number] 1993 Unknown [id number] 1959 Medicaid [id number] 1959 Medicare [id number] 1954 Unknown [id number] 1954 Unknown [id number] 1954 Unknown [id number] 1954 Unknown [id number] 1954 Unknown [id number] 1954 Unknown [id number] 1954 Unknown [id number] 1954 Unknown [id number] Social History Date Type Detail Facility Tobacco smoking stat [facility] Tobacco smoking consumption unknown [facility] Start: 1995 Sex Assigned At Not on file [facility] Note 04-30-2022 Telephone Encounter - Liliana Song - 04/30/2022 3:03 PM EST Note Date & Type Note Facility 04-30-2022 Miscellaneous Notes Formattin g of this note might be different from the original. Bina from [facility] calling in. She wanted to know where the pt was at on the OR wait list. E-mail sent to Connie E-mail sent 04/30/22 documented in this encounter [facility] Telephone encounter Note 04-30-2022 Telephone Encounter - Liliana Song - 04/30/2022 3:03 PM EST Note Date & Type Note Facility 04-30-2022 Telephone encounter Note Form atting of this note might be different from the original. Bina from [facility] calling in. She wanted to know where the pt was at on the OR wait list. E-mail sent to Connie E-mail sent 04/30/22 [facility] History of Present illness Narrative 03-13-2022 Martha Coreas DMD - 03/13/2022 10:06 AM EST Note Date & Type Note Facility 03-13-2022 History of Presen t illness Narrative ----- Sunday, March 13, 2022 at 11:58:40 AM ----- ----- Provider: [id number] - Martha Coreas DMD -- Clinic: [place] ----- OR EVALUATION Patient presents for evaluation to determine best course of treatment due to history of Mental Disorders. Patient is accompanied by caregiver for today's appointment. Patient partially cooperated for a partial intraoral exam. Clinical findings: It is best suited that this patient have full comprehensive examination, radiographs and treatment completed in the OR setting. Explained that the patient will be added to our OR waiting list, and the legal guardian will be contacted once a time slot becomes available. Legal Guardian: Toshia Esteves Phone #: [phone] NOTE: Patient had a hard time leaning her head back, but allowed me to look. Patient not indicating she is in any pain. #8 is very discolored - most likely will need RCT treatment. Gingiva very red and irritated. Caregiver did not know who patient's guardian was or contact information, looked it up in [facility]. Next Visit: OR documented in this encounter [facility] Summary Purpose Family History No Family History Records FoundNo Family History Records FoundNo Family History Records Found Advance Directives No Advanced Directives Records FoundNo Advanced Directives Records FoundNo Advanced Directives Records Found Additional Source Comments INFORMATION SOURCE (unrecogn ized section and content) DATE CREATED AUTHOR 10/16/2017 [facility] DATE CREATED AUTHOR AUTHOR'S ORGANIZ ATION 05/01/2022 [facility] DATE CREATED AUTHOR AUTHOR'S ORGANIZ ATION 09/02/2022 [facility] Reason for Visit (unrecogniz ed section and content) Reason Onset Date Comments Dental 04/30/2022 FOR RECORDS PERTAINING TO PATIENTS WHO ARE OR HAVE BEEN ENROLLED IN A CHEMICAL DEPENDENCY/SUBSTANCEABUSE PROGRAM, SOME INFORMATION MAY BE OMITTED. This clinical summary was aggregated from multiple sources. Caution should be exercised in using it in the provision of clinical care. This summary normalizes information from multiple sources, and as a consequence, information in this document may materially change the coding, format and clinical context of patient data. In addition, data may be omitted in some cases. CLINICAL DECISIONS SHOULD BE BASED ON THE PRIMARY CLINICAL RECORDS. [facility]. provides no warranty or guarantee of the accuracy or completeness of information in this document.
[2023-05-05] MEDS: IBUPROFEN 400 MG TABLET PO (18:48)
[2023-05-05] MEDS: SULFAMETHOXAZOLE/TRIMETHOPRIM 800-160 MG TABLET 1 TAB PO (18:48)
== END 2023-05-05 20:13 | disposition home or self-care (01) ==
PROVIDERS: Emergency Provider Emergency Medicine; PCP Family Medicine
DX: S60.521A Blister (nonthermal) of right hand, initial encounter (principal); L08.9 Local infection of the skin and subcutaneous tissue, unspecified; F84.0 Autistic disorder; Z79.899 Other long term (current) drug therapy; Z79.890 Hormone replacement therapy; G47.9 Sleep disorder, unspecified; F41.9 Anxiety disorder, unspecified; R56.9 Unspecified convulsions; X58.XXXA Exposure to other specified factors, initial encounter
CPT/HCPCS: 87070; 87150; 87186; 99284

== ENCOUNTER 2023-08-02 17:48 | Emergency (ER) | payer MEDICARE, MEDICAID, SELFPAY ==
[2023-08-02 17:49] VITALS: BP 98/62; PULSE 82; TEMP 36.7; O2SAT 100; BMI 24.2
--- NOTE | 2023-08-02 17:58 | CT_ITS ---
The [address] [address] Patient Name: PONCE ESTEVES MRN: [id number] date: 1995 Sex: F Assigned Patient Location: ED.MAIN Current Patient Location: ER Accession/Order Number: [id number] Exam Date: 08/02/2023 18:14 Report Date: 08/02/2023 19:17 At the request of: MARY HANNA Procedure: CT facial bones wo con CT MAXILLOFACIAL WITHOUT CONTRAST. CLINICAL HISTORY: fall COMPARISON: None. TECHNIQUE: Multidetector maxillofacial CT without contrast. Coronal and sagittal reformatted images were obtained. FINDINGS: OSSEOUS STRUCTURES: No acute fracture is seen. ORBITS: Normal orbits. No inflammation or fluid collection. ORAL CAVITY: No inflammation or fluid collection. No periapical lucency. SOFT TISSUES: There is a forehead scalp contusion.. VISUALIZED INTRACRANIAL CONTENTS: No acute findings. MASTOID AIR CELLS: Clear. PARANASAL SINUSES: Clear.. CT/CT facial bones wo con IMPRESSION: No acute maxillofacial fracture. Forehead scalp contusion. Electronically authenticated by: TOMAS NEWTON Date: 08/02/2023 19:17
--- NOTE | 2023-08-02 17:59 | CT_ITS ---
The [address] [address] Patient Name: PONCE ESTEVES MRN: [id number] date: 1995 Sex: F Assigned Patient Location: ED.MAIN Current Patient Location: ER Accession/Order Number: [id number] Exam Date: 08/02/2023 18:14 Report Date: 08/02/2023 19:13 At the request of: MARY HANNA Procedure: CT cervical spine wo con CT CERVICAL SPINE WITHOUT IV CONTRAST. INDICATION: Fall. COMPARISON: There are no prior studies available for comparison. TECHNIQUE: CT of the cervical spine without contrast. Orthogonal sagittal and coronal multiplanar reformatted images were created. . FINDINGS: BONY ALIGNMENT: There is normal cervical lordosis. No spondylolisthesis. VERTEBRAL BODY: No acute fracture of the cervical spine. 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 Intervertebral disc spaces are intact. CENTRAL CANAL/NEURAL FORAMINA: No high-grade central canal or neuroforaminal stenosis. SOFT TISSUE: No mass or inflammation. UPPER LUNGS: No acute findings. CT/CT cervical spine wo con IMPRESSION: No acute cervical spinal fracture. Electronically authenticated by: TOMAS NEWTON Date: 08/02/2023 19:13
--- NOTE | 2023-08-02 17:59 | CT_ITS ---
The [address] [address] Patient Name: PONCE ESTEVES MRN: [id number] date: 1995 Sex: F Assigned Patient Location: ED.MAIN Current Patient Location: ED.MAIN Accession/Order Number: [id number] Exam Date: 08/02/2023 18:14 Report Date: 08/02/2023 19:10 At the request of: MARY HANNA Procedure: CT head/brain wo con CT HEAD WITHOUT CONTRAST. INDICATION: Fall. COMPARISON: 11/13/2022 TECHNIQUE: Axial CT head images from the skull base to the vertex without IV contrast were acquired. Coronal and sagittal reformats were also obtained. FINDINGS: EXTRA-AXIAL SPACE: Age-appropriate ventricles. No acute extra-axial collection. No extra-axial mass. No midline shift. CEREBRUM: No focal abnormality. No CT evidence of acute large territorial cortical infarct, hemorrhage or mass effect. CEREBELLUM: No focal abnormality. No CT evidence of acute infarct, hemorrhage or mass effect. BRAINSTEM: No focal abnormality. No CT evidence of acute infarct, hemorrhage or mass effect. EXTRACRANIAL STRUCTURES. The paranasal sinuses are clear. Mastoid air cells are clear. Orbits are unremarkable. No discrete pituitary mass. Intact calvarium. CT/CT head/brain wo con IMPRESSION: No acute intracranial abnormality. Electronically authenticated by: TOMAS NEWTON Date: 08/02/2023 19:10
--- NOTE | 2023-08-02 18:06 | ED.HEATRA1 ---
HPI HPI - Head Injury General Chief complaint: Head Injury Stated complaint: FALL Time Seen by Provider: 08/02/23 17:56 Source: EMR Mode of arrival: ambulance Limitations: other Limitations comment: MRDD History of Present Illness HPI Narrative: 28-year-old female presents for an injury to her face. She was sitting in a chair and was rocking and she hit her forehead and nose area on a table when she rocked too far forward. 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 This reportedly happened today at 2 PM. She last had a tetanus shot about 20 years ago. Related Data Home Medications ?Medication ?Instructions ?Recorded ?Confirmed ammonium lactate 12 % topical cream 1 applic topical BID 11/13/22 08/02/23 buspirone 30 mg tablet 30 mg PO TID 11/13/22 08/02/23 clonidine HCl 0.2 mg tablet 0.2 mg PO QID 11/13/22 08/02/23 divalproex 125 mg capsule,delayed 125 mg PO TID 11/13/22 08/02/23 release sprinkle famotidine 40 mg tablet 40 mg PO DAILY 11/13/22 08/02/23 guanfacine 2 mg tablet 2 mg PO BID 11/13/22 08/02/23 lamotrigine 100 mg tablet 150 mg PO AC 11/13/22 08/02/23 lamotrigine 200 mg tablet mg 11/13/22 levothyroxine 150 mcg tablet mcg 11/13/22 (Synthroid) loratadine 10 mg tablet mg 11/13/22 melatonin 3 mg tablet mg 11/13/22 norethindrone 1 mg-ethinyl tab 11/13/22 estradiol 35 mcg tablet (Nortrel) polyethylene glycol 3350 17 g 11/13/22 gram/dose oral powder risperidone 1 mg tablet 3 mg PO BID 11/13/22 11/13/22 Previous Rx's ?Medication ?Instructions ?Recorded sulfamethoxazole 800 1 tab PO Q12H 7 days #14 tabs 05/05/23 mg-trimethoprim 160 mg tablet (Bactrim DS) Allergies Allergy/AdvReac Type Severity Reaction Status Date / Time ethosuximide [From Zarontin] Allergy Unknown Verified 08/02/23 18:00 linaclotide [From Linzess] Allergy Unknown Verified 08/02/23 18:00 Opioid HPI Opioid Management Most Recent Pain and Opioid Data: Last Pain Scale 4 03/01/23 09:43 Review of Systems ROS Narrative Not obtainable [facility] Medical History (Updated 08/02/23 @ 18:58 by Jose De Jesus Hightower MD) Sleep disorder ?G47.9 - Sleep disorder, unspecified (ICD-10) Hypothyroidism ?E03.9 - Hypothyroidism, unspecified (ICD-10) Seizures ?R56.9 - Unspecified convulsions (ICD-10) Autism ?F84.0 - Autistic disorder (ICD-10) Anxiety ?F41.9 - Anxiety disorder, unspecified (ICD-10) Social History Smoking status: Never smoker Exam Narrative Exam Narrative: Nurses note and vital signs reviewed and patient is not hypoxic. General: The patient appears well and in no apparent distress. Patient is resting comfortably on cart. Skin: Warm, dry, no pallor noted. There is no rash noted. Head: Normocephalic, she has purple-colored bruising on her forehead and nose. There is a superficial laceration on the bridge of her nose, no active bleeding. Eye: Normal conjunctiva, no drainage Ears, Nose, Mouth, and Throat: oral mucosa is moist. Nares patent. Cardiovascular: Regular Rate and Rhythm Respiratory: Patient is in no distress, no accessory muscle use, lungs are clear to auscultation, no wheezing, rales or rhonchi Back: non-tender, no CVA tenderness bilaterally to percussion. GI: Normal bowel sounds, no tenderness to palpation, no masses appreciated. No rebound, guarding, or rigidity noted. Musculoskeletal: Superficial abrasions present on the dorsum of her right hand. Fingers and wrist seem to have full range of motion Neurological: Awake and alert, watching a TV show on a tablet Psychiatric: Cooperative Constitutional Vital Signs, click to edit/add: Last Vital Signs Temp 98.1 F 08/02/23 17:49 Pulse 82 08/02/23 17:49 Resp 18 08/02/23 17:49 BP 98/62 08/02/23 17:49 Pulse Ox 100 08/02/23 17:49 O2 Del Method Room Air 08/02/23 17:49 Course Vital Signs Vital signs: Vital Signs Temperature 98.1 F 08/02/23 17:49 Pulse Rate 82 08/02/23 17:49 Respiratory Rate 18 08/02/23 17:49 Blood Pressure 98/62 08/02/23 17:49 Pulse Oximetry 100 08/02/23 17:49 Oxygen Delivery Method Room Air 08/02/23 17:49 Temperature 98.1 F 08/02/23 17:49 Pulse Rate 82 08/02/23 17:49 Respiratory Rate 18 08/02/23 17:49 Blood Pressure 98/62 08/02/23 17:49 Pulse Oximetry 100 08/02/23 17:49 Oxygen Delivery Method Room Air 08/02/23 17:49 MDM - Head Injury MDM Narrative Medical decision making narrative: CT scans are pending and the patient is signed out to Dr. Parisi Differential Diagnosis Differential diagnosis: Likely epidural hematoma, closed head injury, subarachnoid hematoma and subdural hematoma Discharge Plan Discharge Chief Complaint: Head Injury Clinical Impression: Facial contusion Patient Disposition: Still a Patient Prescriptions / Home Meds: No Action lamotrigine 200 mg tablet famotidine 40 mg tablet 40 mg PO DAILY melatonin 3 mg tablet clonidine HCl 0.2 mg tablet 0.2 mg PO QID buspirone 30 mg tablet 30 mg PO TID levothyroxine [Synthroid] 150 mcg tablet ammonium lactate 12 % cream 1 applic TOPICAL BID polyethylene glycol 3350 17 gram/dose powder guanfacine 2 mg tablet 2 mg PO BID divalproex 125 mg capsule, delayed rel sprinkle 125 mg PO TID risperidone 1 mg tablet 3 mg PO BID lamotrigine 100 mg tablet 150 mg PO AC loratadine 10 mg tablet Nortrel () 1-35 mg-mcg tablet sulfamethoxazole-trimethoprim [Bactrim DS] 800-160 mg tablet 1 tab PO Q12H 7 Days Qty: 14 0RF Print Language: Czech Referrals: ADRIEL TILLEY DO [Primary Care Provider] - 1 week
[2023-08-02] MEDS: ADACEL DIPH,PERTUSS(ACELL),TET VAC/PF 0.5 ML ADULT SYRINGE IM (18:30)
--- OUTSIDE RECORDS SUMMARY | 2023-08-02 18:30 | XMS_ITS | CCD ---
Author Organization [facility] Care Team Providers Care Marketing Officer Name Role Phone PHYSICIAN, DEFAULT Unavailable Unavailable [...] DR ADRIEL [employer] Unavailable MISC, DR HRENANDEZ Admitting Unavailable MISC, DR HERNANDEZ Attending Unavailable REQUEST, DR OROZCO LISTED Primary Care Unavaila ble WEST, DR MATILDE Stanley [employer] Unavailable MISC, DR HERNANDEZ Consulting Unavailable Allergies Allergy Classification Reported Allergen(s) Allergy Type Date of Onset Reaction(s) Facility (3 sources) Ethosuximide; Translations: [ETHOSUXIMIDE] Drug Allergy 09-15-2014 [facility] (1 source) Allopurinol Drug Allergy 07-16-2013 [facility] (1 source) Ethosuximide Drug Allergy 07-16-2013 [facility] Medications Current Medications Medication Drug [...] (2 sources) Corticosteroid Fluticasone Propionate (FLONASE NASAL) [place] into each nostril. 0 Active ibuprofen 600 [...] ORAL) Take by mouth. 0 Active sennosides, jail 15 mg oral tablet (2 sources) take [...] 07-21-2022 Episodic Other aftercare (5 sources) Other alf (current) drug therapy; Translations: [OTH ALF CURRENT DRUG THERAPY] Onset: 04-03-2022 Episodic Superficial injury; contusion (1 source) Contusion of other part of head, initial encounter; Translations: [CONTUS OTH PRT HEAD INITIAL ENCNTR] Onset: 07-23-2022 Episodic Thyroid disorders (13 sources) Hypothyroidism, unspecified; Translations: [Autoimmune thyroiditis] Onset: 06-27-2022 Chronic Results Test Name Value Interpretation Reference Range Facility FREE T4on 08-29-2022 Free T4 [Mass/Vol] 1.76 ng/dL Critically high 0.76-1.46 [facility] Comment on above: Performed By: #### F T4 #### [facility] [address] [address] [address] Volodymyr Paez TSHon 08-29-2022 TSH Qn m[IU]/L Critically low 0.358-3.740 [facility] Comment on above: Performed By: #### T SH #### [facility] [address] [address] [address] Volodymyr Paez CULTURE URINEon 08-24-2022 CULTURE [...] S F Tetracycline >=16 R F Normal [facility] Comment on above: Performed By: #### T SH, CMP #### [facility] [address] [place] [address] Dr. Volodymyr Paez UA (CLEAN/CATCH) CERTIFIED TRAVEL COUNSELOR/MICRO I F IND.on 08-21-2022 Bilirubin Ql (U) Negative Normal NEGATIVE [facility] Comment on above: Performed By: #### U ACSIND, UMICRO #### [facility] [address] [place] [address] Dr. Volodymyr Paez Clarity (U) CLEAR Normal CLEAR [facility] Comment on above: Performed By: #### U ACSIND, ICRO #### [facility] [address] [place] [address] Dr. Volodymyr Paez Color (U) LT. YELLOW Normal YELLOW [facility] Comment on above: Performed By: #### U ACSIND, UMICRO #### [facility] [address] [place] [address] Dr. Volodymyr Paez Glucose Ql (U) Negative Normal NEGATIVE [facility] Comment on above: Performed By: #### U ACSIND, UMICRO #### [facility] [address] [place] [address] Dr. Volodymyr Paez Hemoglobin Ql (U) Negative Normal NEGATIVE [facility] Comment on above: Performed By: #### U ACSIND, UMICRO #### [facility] [address] [place] [address] Dr. Volodymyr Paez Ketones Ql (U) Negative Normal NEGATIVE [facility] Comment on above: Performed By: #### U ACSIND, UMICRO #### [facility] [address] [address] [address] Volodymyr Paez LEUKOCYTES SMALL Abnormal NEGATIVE [facility] Comment on above: Performed By: #### U ACSSHAHEEN UMICRO #### [facility] [address] [place] [address] Dr. Volodymyr Paez Nitrite Ql (U) Negative Normal NEGATIVE [facility] Comment on above: Performed By: #### U ACSSHAHEEN UMICRO #### [facility] [address] [place] [address] Dr. Volodymyr Paez pH (U) 7.0 [pH] Normal 5-9 [facility] Comment on above: Performed By: #### U VIDYA GAMEZICRO #### [facility] [address] [place] [address] Dr. Volodymyr Paez SPEC GRAVITY 1.020 Normal 1.005-<=1.[address] [facility] Comment on above: Performed By: #### U VIDYA GAMEZICRO #### [facility] [address] [place] [address] Dr. Volodymyr Paez UA PROTEIN Negative Normal NEGATIVE/ TRACE [facility] Comment on above: Performed By: #### U VERA ICRO #### [facility] [address] [place] [address] Dr. Volodymyr Paez UR MICRO IND INDICATED Normal [facility] Comment on above: Performed By: #### U VIDYA GAMEZICRO #### [facility] [address] [place] [address] Dr. Volodymyr Paez Urobilinogen Qn (U) 0.2 {Leta'U}/dL Normal 0.2 - 1. 0 [facility] Comment on above: Performed By: #### U VERA UMICRO #### [facility] [address] [place] [address] Dr. Volodymyr Paez URINE MICROSCOPIC ONLYon BACTERIA SMALL Abnormal NONE SEEN [facility] Comment on above: Performed By: #### U VERA UMICRO #### [facility] [address] [place] [address] Dr. Volodymyr Paez Bacteria identified Cx Nom (U) INDICATED Normal [facility] Comment on above: Performed By: #### U ACSIND, UMICRO #### [facility] [address] [place] [address] Dr. Volodymyr Paez CAST NONE SEEN Normal NONE SEEN [facility] Comment on above: Performed By: #### U ACSIND, UMICRO #### [facility] [address] [place] [address] Dr. Volodymyr Paez Crystals LM Nom (Urine sed) NONE SEEN Normal NONE SEEN [facility] Comment on above: Performed By: #### U ACSIND, UMICRO #### [facility] [address] [place] [address] Dr. Volodymyr Paez Epithelial cells LM Ql (Urine sed) MODERATE Abnormal NONE SEEN /RARE [facility] Comment on above: Performed By: #### U ACSIND, UMICRO #### [facility] [address] [place] [address] Dr. Volodymyr Paez MUCOUS TRACE Abnormal NONE SEEN [facility] Comment on above: Performed By: #### U ACSIND, UMICRO #### [facility] [address] [place] [address] Dr. Volodymyr Paez RBC 2-5 Abnormal 0-2 [facility] Comment on above: Performed By: #### U ACSIND, UMICRO #### [facility] [address] [place] [address] Dr. Volodymyr Paez WBC 10-20 Abnormal NONE SEEN [facility] Comment on above: Performed By: #### U ACSIND, UMICRO #### [facility] [address] [place] [address] Dr. Volodymyr Paez LAMOTRIGINEon 08-13-2022 Lamotrigine, Serum 11.2 ug/mL Normal 2.0-20.0 [facility] Comment on above: Result Comment: Dete ction Limit = 1.0 Performed By: #### T SH, CMP #### [facility] [address] [place] [address] Dr. Volodymyr Paez CBC AUTO DIFFon 08-09-2022 BASO # 0.0 103/ul Normal 0.0-0.1 [facility] Comment on above: Performed By: #### C BC #### [facility] [address] [place] [address] Dr. Volodymyr Paez Basophils/100 WBC (Bld) 0.4 % Normal 0.2-2.0 [facility] Comment on above: Performed By: #### C BC #### [facility] [address] [place] [address] Dr. Volodymyr Paez EO # 0.4 103/ul Normal 0.0-0.7 [facility] Comment on above: Performed By: #### C BC #### [facility] [address] [place] [address] Dr. Volodymyr Paez Eosinophils/100 WBC (Bld) 4.3 % Normal 0.9-7.0 [facility] Comment on above: Performed By: #### C BC #### [facility] [address] [place] [address] Dr. Volodymyr Paez Erythrocyte distribution width (RBC) [Ratio] 13.2 % Normal 11.0-15.0 [facility] Comment on above: Performed By: #### C BC #### [facility] [address] [place] [address] Dr. Volodymyr Paez Hematocrit (Bld) [Volume fraction] 40.2 % Normal 36.0-48.0 [facility] Comment on above: Performed By: #### C BC #### [facility] [address] [place] [address] Dr. Volodymyr Paez Hemoglobin (Bld) [Mass/Vol] 13.8 g/dL Normal 12.0-16.0 [facility] Comment on above: Performed By: #### C BC #### [facility] [address] [place] [address] Dr. Volodymyr Paez IG # 0.02 10e3/ul Normal 0.00-0.03 [facility] Comment on above: Performed By: #### C BC #### [facility] [address] [place] [address] Dr. Volodymyr Paez IG % 0.2 % Normal 0.0-0.5 [facility] Comment on above: Performed By: #### C BC #### [facility] [address] [place] [address] Dr. Volodymyr Paez LYMPH # 4.3 103/ul Critically high 1.2-3.8 [facility] Comment on above: Performed By: #### C BC #### [facility] [address] [place] [address] Dr. Volodymyr Paez Lymphocytes/100 WBC (Bld) 51.8 % Normal 20.5-60.0 [facility] Comment on above: Performed By: #### C BC #### [facility] [address] [place] [address] Dr. Volodymyr Paez MANUAL DIFF REQ NO Normal [facility] Comment on above: Performed By: #### C BC #### [facility] [address] [place] [address] Dr. Volodymyr Paez MCH (RBC) [Entitic mass] 31.0 pg Normal 26.7-34.0 [facility] Comment on above: Performed By: #### C BC #### [facility] [address] [place] [address] Dr. Volodymyr Paez MCHC (RBC) [Mass/Vol] 34.3 g/dL Normal 29.9-35.2 [facility] Comment on above: Performed By: #### C BC #### [facility] [address] [place] [address] Dr. Volodymyr Paez MCV (RBC) [Entitic vol] 90.3 fL Normal 81.0-99.0 [facility] Comment on above: Performed By: #### C BC #### [facility] [address] [place] [address] Dr. Volodymyr Paez MONO # 0.9 103/ul Critically high 0.3-0.8 [facility] Comment on above: Performed By: #### C BC #### [facility] [address] [place] [address] Dr. Volodymyr Paez Monocytes/100 WBC (Bld) 10.4 % Normal 1.7-12.0 [facility] Comment on above: Performed By: #### C BC #### [facility] [address] [place] [address] Dr. Volodymyr Paez NEUT # 2.7 103/ul Normal 1.4-6.5 [facility] Comment on above: Performed By: #### C BC #### [facility] [address] [place] [address] Dr. Volodymyr Paez Neutrophils/100 WBC (Bld) 32.9 % Critically low 43.0-75.0 [facility] Comment on above: Performed By: #### C BC #### [facility] [address] [place] [address] Dr. Volodymyr Paez Platelet mean volume (Bld) [Entitic vol] 10.3 fL Normal 9.5-13.5 [facility] Comment on above: Performed By: #### C BC #### [facility] [address] [place] [address] Dr. Volodymyr Paez PLT 231 103/ul Normal 150-450 [facility] Comment on above: Performed By: #### C BC #### [facility] [address] [place] [address] Dr. Volodymyr Paez RBC 4.45 106/ul Normal 4.20-5.40 [facility] Comment on above: Performed By: #### C BC #### [facility] [address] [place] [address] Dr. Volodymyr Paez WBC 8.2 103/ul Normal 4.0-11.0 [facility] Comment on above: Performed By: #### C BC #### [facility] [address] [place] [address] Dr. Volodymyr Paez DEPAKENE/ VALPROIC ACIDon DEPAKENE 80.3 ug/ml Normal 50.0-100.0 [facility] Comment on above: Performed By: #### V ALP #### [facility] [address] [place] [address] Dr. Volodymyr Paez US THYROIDon 07-10-2022 US [...] 6 mm. No follow-up required TI-RADS: The [employer] TI-RADS committee's white paper recommendations for thyroid lesions classified as TR4 (moderately suspicious) are listed below: > 1.0 cm. Follow-up ultrasound in 1, 2, 3, and 5 years. > 1.5 cm. FNA. J. Am Chidi Radiol 2017;14:[id number]. Electronically authenticated by: MATILDE WATERMAN Date: 2022-07-10 13:01 Normal [facility] LAMOTRIGINEon 06-29-2022 Lamotrigine, Serum 14.2 ug/mL Normal 2.0-20.0 [facility] Comment on above: Result Comment: Dete ction Limit = 1.0 Performed By: #### T AKIKO, CMP #### [facility] [address] [place] [address] Dr. Volodymyr Paez CBC AUTO DIFFon 06-27-2022 BASO # 0.1 103/ul Normal 0.0-0.1 [facility] Comment on above: Performed By: #### T AKIKO, CMP #### [facility] [address] [address] [address] Volodymyr Paez Basophils/100 WBC (Bld) 0.7 % Normal 0.2-2.0 [facility] Comment on above: Performed By: #### T AKIKO, CMP #### [facility] [address] [place] [address] Dr. Volodymyr Paez EO # 0.4 103/ul Normal 0.0-0.7 [facility] Comment on above: Performed By: #### T SH, CMP #### [facility] [address] [place] [address] Dr. Volodymyr Paez Eosinophils/100 WBC (Bld) 5.1 % Normal 0.9-7.0 [facility] Comment on above: Performed By: #### T SH, CMP #### [facility] [address] [place] [address] Dr. Volodymyr Paez Erythrocyte distribution width (RBC) [Ratio] 13.1 % Normal 11.0-15.0 [facility] Comment on above: Performed By: #### T SH, CMP #### [facility] [address] [place] [address] Dr. Volodymyr Paez Hematocrit (Bld) [Volume fraction] 39.7 % Normal 36.0-48.0 [facility] Comment on above: Performed By: #### T SH, CMP #### [facility] [address] [place] [address] Dr. Volodymyr Paez Hemoglobin (Bld) [Mass/Vol] 13.3 g/dL Normal 12.0-16.0 [facility] Comment on above: Performed By: #### T SH, CMP #### [facility] [address] [place] [address] Dr. Volodymyr Paez IG # 0.02 10e3/ul Normal 0.00-0.03 [facility] Comment on above: Performed By: #### T SH, CMP #### [facility] [address] [place] [address] Dr. Volodymyr Paez IG % 0.3 % Normal 0.0-0.5 [facility] Comment on above: Performed By: #### T SH, CMP #### [facility] [address] [place] [address] Dr. Volodymyr Paez LYMPH # 3.6 103/ul Normal 1.2-3.8 [facility] Comment on above: Performed By: #### T SH, CMP #### [facility] [address] [place] [address] Dr. Volodymyr Paez Lymphocytes/100 WBC (Bld) 47.4 % Normal 20.5-60.0 [facility] Comment on above: Performed By: #### T SH, CMP #### [facility] [address] [place] [address] Dr. Volodymyr Paez MANUAL DIFF REQ NO Normal [facility] Comment on above: Performed By: #### T SH, CMP #### [facility] [address] [place] [address] Dr. Volodymyr Paez MCH (RBC) [Entitic mass] 30.3 pg Normal 26.7-34.0 [facility] Comment on above: Performed By: #### T SH, CMP #### [facility] [address] [place] [address] Dr. Volodymyr Paez MCHC (RBC) [Mass/Vol] 33.5 g/dL Normal 29.9-35.2 [facility] Comment on above: Performed By: #### T SH, CMP #### [facility] [address] [place] [address] Dr. Volodymyr Paez MCV (RBC) [Entitic vol] 90.4 fL Normal 81.0-99.0 [facility] Comment on above: Performed By: #### T SH, CMP #### [facility] [address] [place] [address] Dr. Volodymyr Paez MONO # 0.9 103/ul Critically high 0.3-0.[address] [facility] Comment on above: Performed By: #### T SH, CMP #### [facility] [address] [place] [address] Dr. Volodymyr Paez Monocytes/100 WBC (Bld) 11.3 % Normal 1.7-12.0 [facility] Comment on above: Performed By: #### T SH, CMP #### [facility] [address] [place] [address] Dr. Volodymyr Paez NEUT # 2.7 103/ul Normal 1.4-6.5 [facility] Comment on above: Performed By: #### T SH, CMP #### [facility] [address] [place] [address] Dr. Volodymyr Paez Neutrophils/100 WBC (Bld) 35.2 % Critically low 43.0-75.0 [facility] Comment on above: Performed By: #### T SH, CMP #### [facility] [address] [place] [address] Dr. Volodymyr Paez Platelet mean volume (Bld) [Entitic vol] 11.4 fL Normal 9.5-13.5 [facility] Comment on above: Performed By: #### T SH, CMP #### [facility] [address] [place] [address] Dr. Volodymyr Paez PLT 96 103/ul Critically low 150-450 [facility] Comment on above: Result Comment: slid e made; no plt clumps seen Performed By: #### T SH, CMP #### [facility] [address] [place] [address] Dr. Volodymyr Paez RBC 4.39 106/ul Normal 4.20-5.40 [facility] Comment on above: Performed By: #### T SH, CMP #### [facility] [address] [place] [address] Dr. Volodymyr Paez WBC 7.6 103/ul Normal 4.0-11.0 [facility] Comment on above: Performed By: #### T SH, CMP #### [facility] [address] [place] [address] Dr. Volodymyr Paez FREE T4on 06-27-2022 Free T4 [Mass/Vol] 1.45 ng/dL Normal 0.76-1.46 [facility] Comment on above: Performed By: #### F T4 #### [facility] [address] [place] [address] Dr. Volodymyr Paez PROF 14(COMP METB)on 023 Albumin [Mass/Vol] 3.2 g/dL Critically low 3.4-5.0 [facility] Comment on above: Performed By: #### T SH, CMP #### [facility] [address] [place] [address] Dr. Volodymyr Paez Albumin/Globulin [Mass ratio] 0.7 {ratio} Normal [facility] Comment on above: Performed By: #### T SH, CMP #### [facility] [address] [address] [address] Volodymyr Paez ALP [Catalytic activity/Vol] 65 U/L Normal 46-116 [facility] Comment on above: Performed By: #### T SH, CMP #### [facility] [address] [address] [address] Volodymyr Paez ALT [Catalytic activity/Vol] 20 U/L Normal 14-59 [facility] Comment on above: Performed By: #### T SH, CMP #### [facility] [address] [address] [address] Volodymyr Paez Anion gap [Moles/Vol] 11.3 mmol/L Normal [facility] Comment on above: Performed By: #### T SH, CMP #### [facility] [address] [address] [address] Volodymyr Paez AST [Catalytic activity/Vol] 25 U/L Normal 15-37 [facility] Comment on above: Performed By: #### T SH, CMP #### [facility] [address] [address] [address] Volodymyr Paez Bilirubin [Mass/Vol] 0.3 mg/dL Normal 0.2-1.0 [facility] Comment on above: Performed By: #### T SH, CMP #### [facility] [address] [address] [address] Volodymyr Paez Calcium [Mass/Vol] 9.5 mg/dL Normal 8.5-10.1 [facility] Comment on above: Performed By: #### T SH, CMP #### [facility] [address] [address] [address] Volodymyr Paez Chloride [Moles/Vol] 100 mmol/L Normal 98-107 [facility] Comment on above: Performed By: #### T SH, CMP #### [facility] [address] [address] [address] Volodymyr Paez CO2 [Moles/Vol] 30.1 mmol/L Normal 21.0-32.0 [facility] Comment on above: Performed By: #### T SH, CMP #### [facility] [address] [address] [address] Volodymyr Paez Creatinine [Mass/Vol] 0.92 mg/dL Normal 0.55-1.02 [facility] Comment on above: Performed By: #### T SH, CMP #### [facility] [address] [address] [address] Volodymyr Paez EGFR-AF ITALIAN >60 Normal >=60 [facility] Comment on above: Performed By: #### T SH, CMP #### [facility] [address] [address] [address] Volodymyr Paez EGFR-NON AF ITALIAN >60 Normal >=60 [facility] Comment on above: Performed By: #### T SH, CMP #### [facility] [address] [place] [address] Dr. Volodymyr Paez Globulin (S) [Mass/Vol] 4.4 g/dL Normal [facility] Comment on above: Performed By: #### T SH, CMP #### [facility] [address] [address] [address] Volodymyr Paez Glucose [Mass/Vol] 76 mg/dL Normal 74-106 [facility] Comment on above: Performed By: #### T SH, CMP #### [facility] [address] [place] [address] Dr. Volodymyr Paez Potassium [Moles/Vol] 4.4 mmol/L Normal 3.5-5.1 [facility] Comment on above: Performed By: #### T SH, CMP #### [facility] [address] [address] [address] Voloydmyr Paez Protein [Mass/Vol] 7.6 g/dL Normal 6.4-8.2 [facility] Comment on above: Performed By: #### T SH, CMP #### [facility] [address] [place] [address] Dr. Volodymyr Paez Sodium [Moles/Vol] 137 mmol/L Normal 136-145 [facility] Comment on above: Performed By: #### T SH, CMP #### [facility] [address] [address] [address] Volodymyr Paez Urea nitrogen [Mass/Vol] 7.0 mg/dL Normal 7.0-18.0 [facility] Comment on above: Performed By: #### T SH, CMP #### [facility] [address] [address] [address] Volodymyr Paez Urea nitrogen/Creatinine [Mass ratio] 7.6 mg/mg Normal [facility] Comment on above: Performed By: #### T SH, CMP #### [facility] [address] [address] [address] Volodymyr Paez TSHon 06-27-2022 TSH 0.099 uIU/mL Critically low 0.358-3.740 [facility] Comment on above: Performed By: #### T SH, CMP #### [facility] [address] [address] [address] Volodymyr Paez Progress Noteson 05-01-2022 [employer] Authentication Interface Message Text Received message from Connie ([facility] [place]) -- Bina from [place] calling to schedule an OR visit. -- I spoke to Cate today, informed her of the wait time -- we will call when there's an available opening for Ms. Esteves. Cate said that she will leave message for Bina and note it in charts. ----- Sunday, May 01, 2022 at 8:14:46 AM ----- ----- Provider: Parish Castellanos Specialist -- Clinic: [place] ----- Normal [facility] Telephone Encounteron 2022 [employer] Authentication Interface Message Text Bina from [facility] calling in. She wanted to know where the pt was at on the OR wait list. E-mail sent to Connie E-mail sent 04/30/22 Normal [facility] DEPAKENE/ VALPROIC ACIDon DEPAKENE 72.4 ug/ml Normal 50.0-100.0 [facility] Comment on above: Performed By: #### T SH, CMP #### [facility] [address], [place] [address] Dr. Volodymyr Paez Progress Noteson 03-13-2022 [employer] Authentication Interface Message Text ----- Sunday, March 13, 2022 at 11:58:40 AM ----- ----- Provider: [id number] Coreas DMD -- Clinic: [place] ----- OR EVALUATION Patient presents for evaluation [...] available. Legal Guardian: Toshia Esteves Phone #: [phone] NOTE: Patient had a hard time leaning her head back, but allowed me to look. Patient not indicating she is in any pain. #8 is very discolored - most likely will need RCT treatment. Gingiva very red and irritated. Caregiver did not know who patient's guardian was or contact information, looked it up in [employer]. Next Visit: OR Normal [facility] US THYROIDon 10-25-2021 US THYROID EXAMINATION: [...] screening is still recommended. TR 4: The [employer] TI-RADS committee's white paper recommendations for thyroid lesions classified as TR4 (moderately suspicious) are listed below: > 1.0 cm. Follow-up ultrasound in 1, 2, 3, and 5 years. > 1.5 cm. FNA. J. Am Chidi Radiol 2017;14:587-595. Electronically authenticated by: KRIS MENDOZA Date: 2021-10-25 09:31 Normal [facility] FREE T4on 10-24-2021 Free T4 [Mass/Vol] 1.08 ng/dL Normal 0.76-1.46 [facility] Comment on above: Performed By: #### T SH, CMP #### [facility] [address] [address] [address] Volodymyr Paez TSHon 10-24-2021 TSH 12.719 uIU/mL Critically high 0.358-3.740 [facility] Comment on above: Performed By: #### T SH #### [facility] [address] [address] [address] Volodymyr Paez Encounters Encounter Date Encounter Type Care Provider Facility Start: 08-29-2022 End: 08-30-[address] ADRIEL TILLEY Facility:[facility] Start: 08-21-2022 End: 08-21-[address] DOCTOR JAVED Facility:[facility] Start: 08-09-2022 End: 08-10-[address] ADRIEL TILLEY Facility:[facility] Start: 07-21-2022 End: 07-21-[address] UMAIR TURNER . Facility:[facility] Start: 07-10-2022 End: 07-11-[address] DOCTOR JAVED Facility:[facility] Start: 06-27-2022 End: 06-28-[address] OROZCO LISTED REQUEST Facility:[facility] Start: 04-30-2022 Telephone encounter Martha dill DMD Work Phone: [facility] Comment on above: Dental Start: 04-03-2022 End: 04-04-[address] ADRIEL TILLEY Facility:[facility] Start: 03-13-2022 End: 03-18-2022 ambulatory UNKNOWN PROVIDER Facility:[facility] Start: 03-13-2022 End: 03-18-2022 Patient encounter procedure Martha Coreas DMD Work Phone: [facility] Start: 10-24-2021 End: 10-25-[address] DOCTOR JAVED Facility: Start: 11-07-2016 End: 11-08-2016 Ambulatory DEFAULT PHYSICIAN Facility:[facility] Plan of Treatment Date Care Activity Detail Author Start: 2043 Shingles (RZV) Vacci ne (1 of 2) Shingles (RZV) Vaccine (1 of 2) [facility] Start: 01-20-2022 Influenza vaccination Influenza Vacc ine (#1) [facility] Start: 07-19-2020 COVID-19 Vaccine (3 - Booster for Pfizer series) COVID-19 Vaccine (3 - Booster for Pfizer series) [facility] Start: 2014 Screening for malign ant neoplasm of cervix Pap Smear [facility] Start: 2011 Hepatitis C screening Hepatitis C An tibody [facility] Start: 2011 Tetanus + diphtheria + acellular pertussis vaccine (product) Tdap Booster [facility] Start: 01-02-2008 HIV screening HIV Test [facility] Payers Date Payer Category Payer Unknown 2013 Medicaid [id number] 2012 Medicare MEDICARE MEDICAR E PART A & B [id number] 2012-Present [address] [place] [address] Medicare [id number] 1993 Unknown [id number] 1959 Medicaid [id number] 1959 Medicare [id number] 1954 Unknown [id number] 1954 Unknown [id number] 1954 Unknown [id number] 1954 Unknown [id number] 1954 Unknown [id number] 1954 Unknown [id number] 1954 Unknown [id number] 1954 Unknown [id number] Social History Date Type Detail Facility Tobacco smoking stat [facility] Tobacco smoking consumption unknown [facility] Start: 1995 Sex Assigned At Not on file [facility] Note 04-30-2022 Telephone Encounter - Liilana Song - 04/30/2022 3:03 PM EST Note Date & Type Note Facility 04-30-2022 Miscellaneous Notes Formattin g of this note might be different from the original. Bina from [facility] calling in. She wanted to know where the pt was at on the OR wait list. E-mail sent to Connie E-mail sent 04/30/22 documented in this encounter [facility] Note 04-30-2022 Telephone Encounter - Liliana Song - 04/30/2022 3:03 PM EST Note Date & Type Note Facility 04-30-2022 Telephone encounter Note Form atting of this note might be different from the original. Bina from [facility] calling in. She wanted to know where the pt was at on the OR wait list. E-mail sent to Connie E-mail sent 04/30/22 [facility] History of Present illness Narrative 03-13-2022 Martha Coreas DMD - 03/13/2022 10:06 AM EST Note Date & Type Note Facility 03-13-2022 History of Presen t illness Narrative ----- Sunday, March 13, 2022 at 11:58:40 AM ----- ----- Provider: [id number] - Martha Coreas DMD -- Clinic: [place] ----- OR EVALUATION Patient presents for evaluation [...] available. Legal Guardian: Toshia Esteves Phone #: [phone] NOTE: Patient had a hard time leaning her head back, but allowed me to look. Patient not indicating she is in any pain. #8 is very discolored - most likely will need RCT treatment. Gingiva very red and irritated. Caregiver did not know who patient's guardian was or contact information, looked it up in [employer]. Next Visit: OR documented in this encounter [facility] Summary Purpose Family History No Family History Records FoundNo Family History Records FoundNo Family History Records Found Advance Directives No Advanced Directives Records FoundNo Advanced Directives Records FoundNo Advanced Directives Records Found Additional Source Comments INFORMATION SOURCE (unrecogn ized section and content) DATE CREATED AUTHOR 10/16/2017 [facility] DATE CREATED AUTHOR AUTHOR'S ORGANIZ ATION 05/01/2022 [facility] DATE CREATED AUTHOR AUTHOR'S ORGANIZ ATION 09/02/2022 [facility] Reason for Visit (unrecogniz ed section and [...] BE BASED ON THE PRIMARY CLINICAL RECORDS. [facility] [employer] [facility] provides no warranty or guarantee of the accuracy or completeness of information in this document.
[2023-08-02 19:55] VITALS: BP 108/45; PULSE 80; O2SAT 99
== END 2023-08-02 21:36 | disposition home or self-care (01) ==
PROVIDERS: Emergency Provider Internal Medicine; PCP Family Medicine
DX: S00.83XA Contusion of other part of head, initial encounter (principal); Z23 Encounter for immunization; W22.03XA Walked into furniture, initial encounter; Z79.899 Other long term (current) drug therapy; F79 Unspecified intellectual disabilities; G47.9 Sleep disorder, unspecified; E03.9 Hypothyroidism, unspecified; R56.9 Unspecified convulsions; R84.0 Abnormal level of enzymes in specimens from respiratory organs and thorax; F41.9 Anxiety disorder, unspecified
CPT/HCPCS: 70450; 70486; 72125; 90471; 90715; 99284

== ENCOUNTER 2023-08-11 15:02 | Emergency (ER) | payer MEDICARE, MEDICAID, SELFPAY ==
[2023-08-11 15:02] VITALS: BP 110/64; PULSE 94; TEMP 36.7; O2SAT 96; BMI 23.1
--- NOTE | 2023-08-11 15:09 | CT_ITS ---
The [address] [address] Patient Name: PONCE ESTEVES MRN: [id number] date: 1995 Sex: F Assigned Patient Location: ER Current Patient Location: .MAIN Accession/Order Number: [id number] Exam Date: 08/11/2023 15:45 Report Date: 08/11/2023 16:38 At the request of: MARY HANNA Procedure: CT facial bones wo con EXAM: CT head/brain wo con, CT facial bones wo con HISTORY: fall COMPARISON: 08/02/2023 TECHNIQUE: Axial CT scans through the head and facial bones were obtained without IV contrast administration. Dose reduction techniques were achieved by using: automated exposure control and/or adjustment of mA and /or kV according to patient size and/or use of iterative reconstruction technique. CT BRAIN FINDINGS: Exam is distorted secondary to motion artifact. Findings are made within these confines. There is no evidence of acute intracranial hemorrhage or abnormal extra-axial fluid collection. No mass effect or midline shift is seen. There is no evidence of large acute territorial infarction. There is no hydrocephalus. No definite acute fracture is identified. There is soft tissue swelling in the mid forehead. CT/CT facial bones wo con IMPRESSION: Within the limitations of motion artifact, no discrete acute intracranial abnormality identified. No acute displaced calvarial fracture. Moderate soft tissue swelling over the mid forehead. CT FACIAL FINDINGS: Exam is distorted secondary to motion artifact. Findings are made within these confines. No acute fracture or posttraumatic malalignment. The globes are intact bilaterally. There is no retrobulbar hematoma. The soft tissues are unremarkable. The visualized paranasal sinuses show no air-fluid level. Mastoid air cells are clear. IMPRESSION: Within the limitations of motion artifact, no acute fracture of facial bones is identified. Electronically authenticated by: NGOC CARRASCO Date: 08/11/2023 16:38
--- NOTE | 2023-08-11 15:09 | CT_ITS ---
The [address] [address] Patient Name: PONCE ESTEVES MRN: [id number] date: 1995 Sex: F Assigned Patient Location: ER Current Patient Location: .[facility] Accession/Order Number: [id number] Exam Date: 08/11/2023 15:45 Report Date: 08/11/2023 16:38 At the request of: MARY HANNA Procedure: CT head/brain wo con EXAM: CT head/brain wo con, CT facial bones wo con HISTORY: fall COMPARISON: 08/02/2023 TECHNIQUE: Axial CT scans through the head and facial bones were obtained without IV contrast administration. Dose reduction techniques were achieved by using: automated exposure control and/or adjustment of mA and /or kV according to patient size and/or use of iterative reconstruction technique. CT BRAIN FINDINGS: Exam is distorted secondary to motion artifact. Findings are made within these confines. There is no evidence of acute intracranial hemorrhage or abnormal extra-axial fluid collection. No mass effect or midline shift is seen. There is no evidence of large acute territorial infarction. There is no hydrocephalus. No definite acute fracture is identified. There is soft tissue swelling in the mid forehead. CT/CT head/brain wo con IMPRESSION: Within the limitations of motion artifact, no discrete acute intracranial abnormality identified. No acute displaced calvarial fracture. Moderate soft tissue swelling over the mid forehead. CT FACIAL FINDINGS: Exam is distorted secondary to motion artifact. Findings are made within these confines. No acute fracture or posttraumatic malalignment. The globes are intact bilaterally. There is no retrobulbar hematoma. The soft tissues are unremarkable. The visualized paranasal sinuses show no air-fluid level. Mastoid air cells are clear. IMPRESSION: Within the limitations of motion artifact, no acute fracture of facial bones is identified. Electronically authenticated by: NGOC CARRASCO Date: 08/11/2023 16:38
--- NOTE | 2023-08-11 15:12 | ED_ITS ---
HPI HPI - Head Injury General Chief complaint: Head Injury Stated complaint: fall Time Seen by Provider: 08/11/23 15:09 Source: patient Mode of arrival: ambulance History of Present Illness HPI Narrative: 28-year-old female presents for a facial and head injury. She had fallen sometime within the last few hours and hit her face. She has fallen several times recently and was here within the last week for a similar injury. She is unable to provide any history, she has MRDD and lives in a facility. Related Data Home Medications ?Medication ?Instructions ?Recorded ?Confirmed ammonium lactate 12 % topical cream 1 applic topical BID 11/13/22 08/02/23 buspirone 30 mg tablet 30 mg PO TID 11/13/22 08/02/23 clonidine HCl 0.2 mg tablet 0.2 mg PO QID 11/13/22 08/02/23 divalproex 125 mg capsule,delayed 125 mg PO TID 11/13/22 08/02/23 release sprinkle famotidine 40 mg tablet 40 mg PO DAILY 11/13/22 08/02/23 guanfacine 2 mg tablet 2 mg PO BID 11/13/22 08/02/23 lamotrigine 100 mg tablet 150 mg PO AC 11/13/22 08/02/23 lamotrigine 200 mg tablet mg 11/13/22 levothyroxine 150 mcg tablet See Rx Instructions .Route .COMPLEX 11/13/22 08/02/23 (Synthroid) loratadine 10 mg tablet 10 mg PO AC 11/13/22 08/02/23 melatonin 3 mg tablet 3 mg PO .hs 11/13/22 08/02/23 norethindrone 1 mg-ethinyl 1 tab PO DAILY 11/13/22 08/02/23 estradiol 35 mcg tablet (Nortrel) polyethylene glycol 3350 17 17 g PO DAILY 11/13/22 08/02/23 gram/dose oral powder risperidone 1 mg tablet 3 mg PO BID 11/13/22 11/13/22 acetaminophen 500 mg tablet 1,000 mg PO .q4hr PRN pain 08/02/23 08/02/23 Previous Rx's ?Medication ?Instructions ?Recorded sulfamethoxazole 800 1 tab PO Q12H 7 days #14 tabs 05/05/23 mg-trimethoprim 160 mg tablet (Bactrim DS) Allergies Allergy/AdvReac Type Severity Reaction Status Date / Time ethosuximide [From Zarontin] Allergy Unknown Verified 08/02/23 18:00 linaclotide [From Linzess] Allergy Unknown Verified 08/02/23 18:00 Opioid HPI Opioid Management Most Recent Pain and Opioid Data: Last Pain Scale 3 08/11/23 15:28 Review of Systems ROS Narrative Not obtainable PFSH [facility] Medical History (Updated 08/11/23 @ 16:58 by Jose De Jesus Hightower MD) Sleep disorder ?G47.9 - Sleep disorder, unspecified (ICD-10) Hypothyroidism ?E03.9 - Hypothyroidism, unspecified (ICD-10) Seizures ?R56.9 - Unspecified convulsions (ICD-10) Autism ?F84.0 - Autistic disorder (ICD-10) Anxiety ?F41.9 - Anxiety disorder, unspecified (ICD-10) Social History Smoking status: Never smoker Exam Narrative Exam Narrative: Nurses note and vital signs reviewed and patient is not hypoxic. General: The patient is rocking on the bed and is in no respiratory distress. Skin: Warm, dry, no pallor noted. There is no rash noted. Head: Normocephalic, bruising noted on the forehead and bridge of nose and around both eyes Eye: Normal conjunctiva, no drainage Ears, Nose, Mouth, and Throat: oral mucosa is moist. Cardiovascular: Regular Rate and Rhythm Respiratory: Patient is in no distress, no accessory muscle use, lungs are clear to auscultation, no wheezing, rales or rhonchi Back: non-tender GI: Soft and nontender Musculoskeletal: No palpable tenderness Neurological: Awake and alert Psychiatric: Difficult to assess due to MRDD Constitutional Vital Signs, click to edit/add: Last Vital Signs Temp 98.0 F 08/11/23 15:02 Pulse 94 H 08/11/23 15:02 Resp 20 08/11/23 15:02 BP 110/64 08/11/23 15:02 Pulse Ox 96 08/11/23 15:02 O2 Del Method Room Air 08/11/23 15:02 Course Vital Signs Vital signs: Vital Signs Temperature 98.0 F 08/11/23 15:02 Pulse Rate 94 H 08/11/23 15:02 Respiratory Rate 20 08/11/23 15:02 Blood Pressure 110/64 08/11/23 15:02 Pulse Oximetry 96 08/11/23 15:02 Oxygen Delivery Method Room Air 08/11/23 15:02 Temperature 98.0 F 08/11/23 15:02 Pulse Rate 94 H 08/11/23 15:02 Respiratory Rate 20 08/11/23 15:02 Blood Pressure 110/64 08/11/23 15:02 Pulse Oximetry 96 08/11/23 15:02 Oxygen Delivery Method Room Air 08/11/23 15:02 MDM - Head Injury MDM Narrative Medical decision making narrative: CT facial bones and CT brain are negative per radiologist and the patient is released. Findings were discussed with her mother. Differential Diagnosis Differential diagnosis: Likely epidural hematoma, closed head injury, subarachnoid hematoma, subdural hematoma and other (Facial contusion) Imaging Data CT scan - head: Radiologist's impression: ITS Impressions Facial Bones CT 08/11/23 15:09 IMPRESSION: Within the limitations of motion artifact, no discrete acute intracranial abnormality identified. No acute displaced calvarial fracture. Moderate soft tissue swelling over the mid forehead. CT FACIAL FINDINGS: Exam is distorted secondary to motion artifact. Findings are made within these confines. No acute fracture or posttraumatic malalignment. The globes are intact bilaterally. There is no retrobulbar hematoma. The soft tissues are unremarkable. The visualized paranasal sinuses show no air-fluid level. Mastoid air cells are clear. IMPRESSION: Within the limitations of motion artifact, no acute fracture of facial bones is identified. Electronically authenticated by: [employer] Date: 08/11/2023 16:[address] 08/11/23 15:09 IMPRESSION: Within the limitations of motion artifact, no discrete acute intracranial abnormality identified. No acute displaced calvarial fracture. Moderate soft tissue swelling over the mid forehead. CT FACIAL FINDINGS: Exam is distorted secondary to motion artifact. Findings are made within these confines. No acute fracture or posttraumatic malalignment. The globes are intact bilaterally. There is no retrobulbar hematoma. The soft tissues are unremarkable. The visualized paranasal sinuses show no air-fluid level. Mastoid air cells are clear. IMPRESSION: Within the limitations of motion artifact, no acute fracture of facial bones is identified. Electronically authenticated by: [employer] ([employer]) Date: 08/11/2023 16:38 Discharge Plan Discharge Stand Alone Forms: Portal Instructions Chief Complaint: Head Injury Clinical Impression: Facial contusion Patient Disposition: Home, Self-Care Time of Disposition Decision: 16:57 Condition: Good Mode of Transportation: Private Vehicle Prescriptions / Home Meds: No Action lamotrigine 200 mg tablet famotidine 40 mg tablet 40 mg PO DAILY melatonin 3 mg tablet 3 mg PO .hs clonidine HCl 0.2 mg tablet 0.2 mg PO QID buspirone 30 mg tablet 30 mg PO TID levothyroxine [Synthroid] 150 mcg tablet See Rx Instructions .ROUTE .COMPLEX Rx Instructions: 125 mcg PO daily ammonium lactate 12 % cream 1 applic TOPICAL BID polyethylene glycol 3350 17 gram/dose powder 17 g PO DAILY guanfacine 2 mg tablet 2 mg PO BID divalproex 125 mg capsule, delayed rel sprinkle 125 mg PO TID risperidone 1 mg tablet 3 mg PO BID lamotrigine 100 mg tablet 150 mg PO AC loratadine 10 mg tablet 10 mg PO AC Nortrel 1/35 (28) 1-35 mg-mcg tablet 1 tab PO DAILY acetaminophen 500 mg tablet 1,000 mg PO .q4hr PRN (Reason: pain) sulfamethoxazole-trimethoprim [Bactrim DS] 800-160 mg tablet 1 tab PO Q12H 7 Days Qty: 14 0RF Print Language: Hungarian Instructions: Facial Contusion (ED) Referrals: ADRIEL TILLEY DO [Primary Care Provider] - 1 week
--- OUTSIDE RECORDS SUMMARY | 2023-08-11 15:13 | XMS_ITS | CCD ---
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 Name Role Phone PHYSICIAN, DEFAULT Unavailable Unavailable [...] Consulting Unavailable MISC, DR HERNANDEZ Consulting Unavailable EDSON LOMBARDI Attending Unavailable Allergies Allergy Classification Reported Allergen(s) Allergy Type Date of Onset Reaction(s) Facility (3 sources) Ethosuximide; Translations: [ETHOSUXIMIDE] Drug Allergy 09-15-2014 [facility] (1 source) Allopurinol Drug Allergy 07-16-2013 [facility] (1 source) Ethosuximide Drug Allergy 07-16-2013 [facility] Medications Current Medications Medication Drug Class(es) [...] (2 sources) Corticosteroid Fluticasone Propionate (FLONASE NASAL) [place] into each nostril. 0 Active ibuprofen 600 [...] ORAL) Take by mouth. 0 Active sennosides, group home 15 mg oral tablet (2 sources) [...] 07-21-2022 Episodic Other aftercare (5 sources) Other terminal carman (current) drug therapy; Translations: [OTH FDC CURRENT DRUG THERAPY] Onset: 04-03-2022 Episodic Superficial injury; contusion (1 source) Contusion of other part of head, initial encounter; Translations: [CONTUS OTH PRT HEAD INITIAL ENCNTR] Onset: 07-23-2022 Episodic Thyroid disorders (13 sources) Hypothyroidism, unspecified; Translations: [Autoimmune thyroiditis] Onset: 06-27-2022 Chronic Results Test Name Value Interpretation Reference Range Facility FREE T4on 08-29-2022 Free T4 [Mass/Vol] 1.76 ng/dL Critically high 0.76-1.46 [facility] Comment on above: Performed By: #### F T4 #### [facility] [address] [place] [address] Dr. Volodymyr Paez TSHon 08-29-2022 TSH Qn m[IU]/L Critically low 0.358-3.740 [facility] Comment on above: Performed By: #### T SH #### [facility] [address] [place] [address] Dr. Volodymyr Paez CULTURE URINEon 08-24-2022 CULTURE [...] S F Tetracycline >=16 R F Normal [facility] Comment on above: Performed By: #### T SH, CMP #### [facility] [address] [place] [address] Dr. Volodymyr Paez UA (CLEAN/CATCH) MIXER RUNNER/MICRO I F IND.on 08-21-2022 Bilirubin Ql (U) Negative Normal NEGATIVE [facility] Comment on above: Performed By: #### U ACSIND, ICRO #### [facility] [address] [place] [address] Dr. Volodymyr Paez Clarity (U) CLEAR Normal CLEAR [facility] Comment on above: Performed By: #### U ACSIND, ICRO #### [facility] [address] [place] [address] Dr. Volodymyr Paez Color (U) LT. YELLOW Normal YELLOW [facility] Comment on above: Performed By: #### U ACSIND, UMICRO #### [facility] [address] [place] [address] Dr. Volodymyr Paez Glucose Ql (U) Negative Normal NEGATIVE [facility] Comment on above: Performed By: #### U ACSIND, UMICRO #### [facility] [address] [place] [address] Dr. Volodymyr Paez Hemoglobin Ql (U) Negative Normal NEGATIVE [facility] Comment on above: Performed By: #### U ACSIND, UMICRO #### [facility] [address] [place] [address] Dr. Volodymyr Paez Ketones Ql (U) Negative Normal NEGATIVE [facility] Comment on above: Performed By: #### U ACSIND, UMICRO #### [facility] [address] [address] [address] Volodymyr Paez LEUKOCYTES SMALL Abnormal NEGATIVE [facility] Comment on above: Performed By: #### U ACSSHAHEEN UMICRO #### [facility] [address] [address] [address] Volodymyr Paez Nitrite Ql (U) Negative Normal NEGATIVE [facility] Comment on above: Performed By: #### U VERA UMICRO #### [facility] [address] [place] [address] Dr. Volodymyr Paez pH (U) 7.0 [pH] Normal 5-9 [facility] Comment on above: Performed By: #### U VERA UMICRO #### [facility] [address] [place] [address] Dr. Volodymyr Paez SPEC GRAVITY 1.020 Normal 1.005-<=1.025 [facility] Comment on above: Performed By: #### U VERA UMICRO #### [facility] [address] [place] [address] Dr. Volodymyr Paez UA PROTEIN Negative Normal NEGATIVE/ TRACE [facility] Comment on above: Performed By: #### U VERA UMICRO #### [facility] [address] [place] [address] Dr. Volodymyr Paez UR MICRO IND INDICATED Normal [facility] Comment on above: Performed By: #### U VERA UMICRO #### [facility] [address] [address] [address] Volodymyr Paez Urobilinogen Qn (U) 0.2 {Leta'U}/dL Normal 0.2 - 1. 0 [facility] Comment on above: Performed By: #### U VERA UMICRO #### [facility] [address] [place] [address] Dr. Volodymyr Paez URINE MICROSCOPIC ONLYon BACTERIA SMALL Abnormal NONE SEEN [facility] Comment on above: Performed By: #### U VERA UMICRO #### [facility] [address] [place] [address] Dr. Volodymyr Paez Bacteria identified Cx Nom (U) INDICATED Normal [facility] Comment on above: Performed By: #### U ACSIND, UMICRO #### [facility] [address] [place] [address] Dr. Volodymyr Paez CAST NONE SEEN Normal NONE SEEN [facility] Comment on above: Performed By: #### U ACSIND, UMICRO #### [facility] [address] [place] [address] Dr. Volodymyr Paez Crystals LM Nom (Urine sed) NONE SEEN Normal NONE SEEN [facility] Comment on above: Performed By: #### U ACSIND, UMICRO #### [facility] [address] [place] [address] Dr. Volodymyr Paez Epithelial cells LM Ql (Urine sed) MODERATE Abnormal NONE SEEN /RARE [facility] Comment on above: Performed By: #### U ACSSHAHEEN, UMICRO #### [facility] [address] [place] [address] Dr. Volodymyr Paez MUCOUS TRACE Abnormal NONE SEEN [facility] Comment on above: Performed By: #### U ACSSHAHEEN, UMICRO #### [facility] [address] [place] [address] Dr. Volodymyr Paez RBC 2-5 Abnormal 0-2 [facility] Comment on above: Performed By: #### U ACSSHAHEEN, UMICRO #### [facility] [address] [place] [address] Dr. Volodymyr Paez WBC 10-20 Abnormal NONE SEEN [facility] Comment on above: Performed By: #### U ACSIND, UMICRO #### [facility] [address] [place] [address] Dr. Volodymyr Paez LAMOTRIGINEon 08-13-2022 Lamotrigine, Serum 11.2 ug/mL Normal 2.0-20.0 [facility] Comment on above: Result Comment: Dete ction Limit = 1.0 Performed By: #### T SH, CMP #### [facility] [address] [place] [address] Dr. Volodymyr Paez CBC AUTO DIFFon 08-09-2022 BASO # 0.0 103/ul Normal 0.0-0.1 [facility] Comment on above: Performed By: #### C BC #### [facility] [address] [place] [address] Dr. Volodymyr Paez Basophils/100 WBC (Bld) 0.4 % Normal 0.2-2.0 [facility] Comment on above: Performed By: #### C BC #### [facility] [address] [place] [address] Dr. Volodymyr Paez EO # 0.4 103/ul Normal 0.0-0.7 [facility] Comment on above: Performed By: #### C BC #### [facility] [address] [place] [address] Dr. Volodymyr Paez Eosinophils/100 WBC (Bld) 4.3 % Normal 0.9-7.0 [facility] Comment on above: Performed By: #### C BC #### [facility] [address] [place] [address] Dr. Volodymyr Paez Erythrocyte distribution width (RBC) [Ratio] 13.2 % Normal 11.0-15.0 [facility] Comment on above: Performed By: #### C BC #### [facility] [address] [place] [address] Dr. Volodymyr Paez Hematocrit (Bld) [Volume fraction] 40.2 % Normal 36.0-48.0 [facility] Comment on above: Performed By: #### C BC #### [facility] [address] [place] [address] Dr. Volodymyr Paez Hemoglobin (Bld) [Mass/Vol] 13.8 g/dL Normal 12.0-16.0 [facility] Comment on above: Performed By: #### C BC #### [facility] [address] [place] [address] Dr. Volodymyr Paez IG # 0.02 10e3/ul Normal 0.00-0.03 [facility] Comment on above: Performed By: #### C BC #### [facility] [address] [place] [address] Dr. Volodymyr Paez IG % 0.2 % Normal 0.0-0.5 [facility] Comment on above: Performed By: #### C BC #### [facility] [address] [place] [address] Dr. Volodymyr Paez LYMPH # 4.3 103/ul Critically high 1.2-3.8 [facility] Comment on above: Performed By: #### C BC #### [facility] [address] [place] [address] Dr. Volodymyr Paez Lymphocytes/100 WBC (Bld) 51.8 % Normal 20.5-60.0 [facility] Comment on above: Performed By: #### C BC #### [facility] [address] [place] [address] Dr. Volodymyr Paez MANUAL DIFF REQ NO Normal [facility] Comment on above: Performed By: #### C BC #### [facility] [address] [place] [address] Dr. Volodymyr Paez MCH (RBC) [Entitic mass] 31.0 pg Normal 26.7-34.0 [facility] Comment on above: Performed By: #### C BC #### [facility] [address] [place] [address] Dr. Volodymyr Paez MCHC (RBC) [Mass/Vol] 34.3 g/dL Normal 29.9-35.2 [facility] Comment on above: Performed By: #### C BC #### [facility] [address] [place] [address] Dr. Volodymyr Paez MCV (RBC) [Entitic vol] 90.3 fL Normal 81.0-99.0 [facility] Comment on above: Performed By: #### C BC #### [facility] [address] [place] [address] Dr. Volodymyr Paez MONO # 0.9 103/ul Critically high 0.3-0.8 [facility] Comment on above: Performed By: #### C BC #### [facility] [address] [place] [address] Dr. Volodymyr Paez Monocytes/100 WBC (Bld) 10.4 % Normal 1.7-12.0 [facility] Comment on above: Performed By: #### C BC #### [facility] [address] [place] [address] Dr. Volodymyr Paez NEUT # 2.7 103/ul Normal 1.4-6.5 [facility] Comment on above: Performed By: #### C BC #### [facility] [address] [place] [address] Dr. Volodymyr Paez Neutrophils/100 WBC (Bld) 32.9 % Critically low 43.0-75.0 [facility] Comment on above: Performed By: #### C BC #### [facility] [address] [place] [address] Dr. Volodymyr Paez Platelet mean volume (Bld) [Entitic vol] 10.3 fL Normal 9.5-13.5 [facility] Comment on above: Performed By: #### C BC #### [facility] [address] [place] [address] Dr. Volodymyr Paez PLT 231 103/ul Normal 150-450 [facility] Comment on above: Performed By: #### C BC #### [facility] [address] [place] [address] Dr. Volodymyr Paez RBC 4.45 106/ul Normal 4.20-5.40 [facility] Comment on above: Performed By: #### C BC #### [facility] [address] [place] [address] Dr. Volodymyr Paez WBC 8.2 103/ul Normal 4.0-11.0 [facility] Comment on above: Performed By: #### C BC #### [facility] [address] [place] [address] Dr. Volodymyr Paez DEPAKENE/ VALPROIC ACIDon DEPAKENE 80.3 ug/ml Normal 50.0-100.0 [facility] Comment on above: Performed By: #### V ALP #### [facility] [address] [place] [address] Dr. Volodymyr Paez US THYROIDon 07-10-2022 US [...] 6 mm. No follow-up required TI-RADS: The [employer] TI-RADS committee's white paper recommendations for thyroid lesions classified as TR4 (moderately suspicious) are listed below: > 1.0 cm. Follow-up ultrasound in 1, 2, 3, and 5 years. > 1.5 cm. FNA. J. Am Chidi Radiol 2017;14:[id number]. Electronically authenticated by: MATILDE WATERMAN Date: 2022-07-10 13:01 Normal [facility] LAMOTRIGINEon 06-29-2022 Lamotrigine, Serum 14.2 ug/mL Normal 2.0-20.0 [facility] Comment on above: Result Comment: Dete ction Limit = 1.0 Performed By: #### T AKIKO, CMP #### [facility] [address] [place] [address] Dr. Volodymyr Paez CBC AUTO DIFFon 06-27-2022 BASO # 0.1 103/ul Normal 0.0-0.1 [facility] Comment on above: Performed By: #### T AKIKO, CMP #### [facility] [address] [place] [address] Dr. Volodymyr Paez Basophils/100 WBC (Bld) 0.7 % Normal 0.2-2.0 [facility] Comment on above: Performed By: #### T AKIKO, CMP #### [facility] [address] [place] [address] Dr. Volodymyr Paez EO # 0.4 103/ul Normal 0.0-0.7 [facility] Comment on above: Performed By: #### T SH, CMP #### [facility] [address] [place] [address] Dr. Volodymyr Paez Eosinophils/100 WBC (Bld) 5.1 % Normal 0.9-7.0 [facility] Comment on above: Performed By: #### T AKIKO, CMP #### [facility] [address] [place] [address] Dr. Volodymyr Paez Erythrocyte distribution width (RBC) [Ratio] 13.1 % Normal 11.0-15.0 [facility] Comment on above: Performed By: #### T AKIKO, CMP #### [facility] [address] [place] [address] Dr. Volodymyr Paez Hematocrit (Bld) [Volume fraction] 39.7 % Normal 36.0-48.0 [facility] Comment on above: Performed By: #### T AKIKO, CMP #### [facility] [address] [place] [address] Dr. Volodymyr Paez Hemoglobin (Bld) [Mass/Vol] 13.3 g/dL Normal 12.0-16.0 [facility] Comment on above: Performed By: #### T AKIKO, CMP #### [facility] [address] [place] [address] Dr. Volodymyr Paez IG # 0.02 10e3/ul Normal 0.00-0.03 [facility] Comment on above: Performed By: #### T AKIKO, CMP #### [facility] [address] [place] [address] Dr. Volodymyr Paez IG % 0.3 % Normal 0.0-0.5 [facility] Comment on above: Performed By: #### T AKIKO, CMP #### [facility] [address] [place] [address] Dr. Volodymyr Paez LYMPH # 3.6 103/ul Normal 1.2-3.8 [facility] Comment on above: Performed By: #### T AKIKO, CMP #### [facility] [address] [place] [address] Dr. Volodymyr Paez Lymphocytes/100 WBC (Bld) 47.4 % Normal 20.5-60.0 [facility] Comment on above: Performed By: #### T SH, CMP #### [facility] [address] [place] [address] Dr. Volodymyr Paez MANUAL DIFF REQ NO Normal [facility] Comment on above: Performed By: #### T SH, CMP #### [facility] [address] [place] [address] Dr. Volodymyr Paez MCH (RBC) [Entitic mass] 30.3 pg Normal 26.7-34.0 [facility] Comment on above: Performed By: #### T AKIKO, CMP #### [facility] [address] [place] [address] Dr. Volodymyr Paez MCHC (RBC) [Mass/Vol] 33.5 g/dL Normal 29.9-35.2 [facility] Comment on above: Performed By: #### T AKIKO, CMP #### [facility] [address] [place] [address] Dr. Volodymyr Paez MCV (RBC) [Entitic vol] 90.4 fL Normal 81.0-99.0 [facility] Comment on above: Performed By: #### T AKIKO, CMP #### [facility] [address] [place] [address] Dr. Volodymyr Paez MONO # 0.9 103/ul Critically high 0.3-0.8 [facility] Comment on above: Performed By: #### T SH, CMP #### [facility] [address] [place] [address] Dr. Volodymyr Paez Monocytes/100 WBC (Bld) 11.3 % Normal 1.7-12.0 [facility] Comment on above: Performed By: #### T SH, CMP #### [facility] [address] [place] [address] Dr. Volodymyr Paez NEUT # 2.7 103/ul Normal 1.4-6.5 [facility] Comment on above: Performed By: #### T SH, CMP #### [facility] [address] [place] [address] Dr. Volodymyr Paez Neutrophils/100 WBC (Bld) 35.2 % Critically low 43.0-75.0 [facility] Comment on above: Performed By: #### T SH, CMP #### [facility] [address] [place] [address] Dr. Volodymyr Paez Platelet mean volume (Bld) [Entitic vol] 11.4 fL Normal 9.5-13.5 [facility] Comment on above: Performed By: #### T SH, CMP #### [facility] [address] [place] [address] Dr. Volodymyr Paez PLT 96 103/ul Critically low 150-450 [facility] Comment on above: Result Comment: slid e made; no plt clumps seen Performed By: #### T SH, CMP #### [facility] [address] [place] [address] Dr. Volodymyr Paez RBC 4.39 106/ul Normal 4.20-5.40 [facility] Comment on above: Performed By: #### T SH, CMP #### [facility] [address] [place] [address] Dr. Volodymyr Paez WBC 7.6 103/ul Normal 4.0-11.0 [facility] Comment on above: Performed By: #### T SH, CMP #### [facility] [address] [place] [address] Dr. Volodymyr Paez FREE T4on 06-27-2022 Free T4 [Mass/Vol] 1.45 ng/dL Normal 0.76-1.46 [facility] Comment on above: Performed By: #### F T4 #### [facility] [address] [place] [address] Dr. Volodymyr Paez PROF 14(COMP METB)on 023 Albumin [Mass/Vol] 3.2 g/dL Critically low 3.4-5.0 [facility] Comment on above: Performed By: #### T SH, CMP #### [facility] [address] [place] [address] Dr. Volodymyr Paez Albumin/Globulin [Mass ratio] 0.7 {ratio} Normal [facility] Comment on above: Performed By: #### T SH, CMP #### [facility] [address] [place] [address] Dr. Volodymyr Paez ALP [Catalytic activity/Vol] 65 U/L Normal 46-116 [facility] Comment on above: Performed By: #### T SH, CMP #### [facility] [address] [address] [address] Volodymyr Paez ALT [Catalytic activity/Vol] 20 U/L Normal 14-59 [facility] Comment on above: Performed By: #### T SH, CMP #### [facility] [address] [place] [address] Dr. Volodymyr Paez Anion gap [Moles/Vol] 11.3 mmol/L Normal [facility] Comment on above: Performed By: #### T SH, CMP #### [facility] [address] [place] [address] Dr. Volodymyr Paez AST [Catalytic activity/Vol] 25 U/L Normal 15-37 [facility] Comment on above: Performed By: #### T AKIKO, CMP #### [facility] [address] [place] [address] Dr. Volodymyr Paez Bilirubin [Mass/Vol] 0.3 mg/dL Normal 0.2-1.0 [facility] Comment on above: Performed By: #### T AKIKO, CMP #### [facility] [address] [place] [address] Dr. Volodymyr Paez Calcium [Mass/Vol] 9.5 mg/dL Normal 8.5-10.1 [facility] Comment on above: Performed By: #### T SH, CMP #### [facility] [address] [place] [address] Dr. Volodymyr Paez Chloride [Moles/Vol] 100 mmol/L Normal 98-107 [facility] Comment on above: Performed By: #### T SH, CMP #### [facility] [address] [place] [address] Dr. Volodymyr Paez CO2 [Moles/Vol] 30.1 mmol/L Normal 21.0-32.0 [facility] Comment on above: Performed By: #### T SH, CMP #### [facility] [address] [address] [address] Volodymyr Paez Creatinine [Mass/Vol] 0.92 mg/dL Normal 0.55-1.02 [facility] Comment on above: Performed By: #### T SH, CMP #### [facility] [address] [address] [address] Volodymyr Paez EGFR-AF SWEDISH >60 Normal >=60 [facility] Comment on above: Performed By: #### T SH, CMP #### [facility] [address] [address] [address] Volodymyr Paez EGFR-NON AF SWEDISH >60 Normal >=60 [facility] Comment on above: Performed By: #### T SH, CMP #### [facility] [address] [place] [address] Dr. Volodymyr Paez Globulin (S) [Mass/Vol] 4.4 g/dL Normal [facility] Comment on above: Performed By: #### T SH, CMP #### [facility] [address] [address] [address] Volodymyr Paez Glucose [Mass/Vol] 76 mg/dL Normal 74-106 [facility] Comment on above: Performed By: #### T SH, CMP #### [facility] [address] [place] [address] Dr. Volodymyr Paez Potassium [Moles/Vol] 4.4 mmol/L Normal 3.5-5.1 [facility] Comment on above: Performed By: #### T SH, CMP #### [facility] [address] [address] [address] Volodymyr Paez Protein [Mass/Vol] 7.6 g/dL Normal 6.4-8.2 [facility] Comment on above: Performed By: #### T SH, CMP #### [facility] [address] [address] [address] Volodymyr Paez Sodium [Moles/Vol] 137 mmol/L Normal 136-145 [facility] Comment on above: Performed By: #### T SH, CMP #### [facility] [address] [address] [address] Volodymyr Paez Urea nitrogen [Mass/Vol] 7.0 mg/dL Normal 7.0-18.0 [facility] Comment on above: Performed By: #### T SH, CMP #### [facility] [address] [address] [address] Volodymyr Paez Urea nitrogen/Creatinine [Mass ratio] 7.6 mg/mg Normal [facility] Comment on above: Performed By: #### T SH, CMP #### [facility] [address] [address] [address] Volodymyr Paez TSHon 06-27-2022 TSH 0.099 uIU/mL Critically low 0.358-3.740 [facility] Comment on above: Performed By: #### T AKIKO, CMP #### [facility] [address] [address] [address] Volodymyr Paez Progress Noteson 05-01-2022 Business Supervisor Authentication Interface Message Text Received message from Connie ([facility] -- Bina from [facility] calling to schedule an OR visit. -- I spoke to Cate today, informed her of the wait time -- we will call when there's an available opening for Ms. Esteves. Cate said that she will leave message for Bina and note it in charts. ----- Sunday, May 01, 2022 at 8:14:46 AM ----- ----- Provider: Parish Castellanos Specialist -- Clinic: [place] ----- Normal [facility] Telephone Encounteron 2022 Business Supervisor Authentication Interface Message Text Bina from [facility] calling in. She wanted to know where the pt was at on the OR wait list. E-mail sent to Connie E-mail sent 04/30/22 Normal [facility] DEPAKENE/ VALPROIC ACIDon DEPAKENE 72.4 ug/ml Normal 50.0-100.0 [facility] Comment on above: Performed By: #### T , CMP #### [facility] [address] [address] [address] Volodymyr Paez Progress Noteson 03-13-2022 Business Supervisor Authentication Interface Message Text ----- Sunday, March 13, 2022 at 11:58:40 AM ----- ----- Provider: Ashely Coreas DMD -- Clinic: [place] ----- OR EVALUATION Patient presents for evaluation [...] available. Legal Guardian: Toshia Esteves Phone #: [phone] NOTE: Patient had a hard time leaning her head back, but allowed me to look. Patient not indicating she is in any pain. #8 is very discolored - most likely will need RCT treatment. Gingiva very red and irritated. Caregiver did not know who patient's guardian was or contact information, looked it up in [employer]. Next Visit: OR Normal [facility] US THYROIDon 10-25-2021 US THYROID EXAMINATION: [...] screening is still recommended. TR 4: The [employer] TI-RADS committee's white paper recommendations for thyroid lesions classified as TR4 (moderately suspicious) are listed below: > 1.0 cm. Follow-up ultrasound in 1, 2, 3, and 5 years. > 1.5 cm. FNA. J. Am Chidi Radiol 2017;14:587-595. Electronically authenticated by: KRIS MENDOZA Date: 2021-10-25 09:31 Normal [facility] FREE T4on 10-24-2021 Free T4 [Mass/Vol] 1.08 ng/dL Normal 0.76-1.46 [facility] Comment on above: Performed By: #### T SH, CMP #### [facility] [address] [address] [address] Volodymyr Paez TSHon 10-24-2021 TSH 12.719 uIU/mL Critically high 0.358-3.740 [facility] Comment on above: Performed By: #### T SH #### [facility] [address] [address] [address] Volodymyr Paez Encounters Encounter Date Encounter Type Care Provider Facility Start: 08-06-2023 End: 08-06-2023 ambulatory EDSON LOMBARDI Not Available Start: 08-29-2022 End: 08-30-[address] ADRIEL [...] encounter Martha dill DMD Work Phone: [facility] Comment on above: Dental Start: 04-03-2022 End: 04-04-[address] ADRIEL TILLEY Facility:[facility] Start: 03-13-2022 End: 03-18-2022 ambulatory UNKNOWN PROVIDER Facility:[facility] Start: 03-13-2022 End: 03-18-2022 Patient encounter procedure Martha Coreas DMD Work Phone: [facility] Start: 10-24-2021 End: 10-25-[address] DOCTOR JAVED Facility: Start: 11-07-2016 End: 11-08-2016 Ambulatory DEFAULT PHYSICIAN Facility:[facility] Plan of Treatment Date Care Activity Detail Author Start: 2043 Shingles (RZV) Vacci ne (1 of 2) [facility]ing[facility] (RZV[facility] Start: 01-20-2022 Influenza vaccination Influenza Vacc ine (#1) [facility] Start: 07-19-2020 COVID-19 Vaccine (3 - Booster for Pfizer series) COVID-19 Vaccine (3 - Booster for Pfizer series) [facility] Start: 2014 Screening for malign ant neoplasm of cervix Pap Smear [facility] Start: 2011 Hepatitis C screening Hepatitis C An tibody [facility] Start: 2011 Tetanus + diphtheria + acellular pertussis vaccine (product) Tdap [facility]oster [facility] Start: 01-02-2008 HIV screening HIV Test [facility] Payers Date Payer Category Payer Unknown 2013 Medicaid [id number] 2012 Medicare MEDICARE MEDICAR E PART A & B [id number] 2012-Present [address] [place] [address] Medicare [id number] 1993 Unknown [id number] 1993 Unknown [id number] 1959 Medicaid [id number] 1959 Medicare [id number] 1954 Unknown [id number] 1954 Unknown [id number] [id number] 1954 Unknown [id number] [id number] 1954 Unknown [id number] [id number] 1954 Unknown [id number] [id number] 1954 Unknown [id number] [id number] 1954 Unknown [id number] [id number] 1954 Unknown [id number] Social History Date Type Detail Facility Tobacco smoking stat [facility] Tobacco smoking consumption unknown [facility] Start: 1993 Sex Assigned At Not on file [facility] Note 04-30-2022 Telephone Encounter - Liliana Song - 04/30/2022 3:03 PM EST Note Date & Type Note Facility 04-30-2022 Miscellaneous Notes Formattin g of this note might be different from the original. Bina from [facility] calling in. She wanted to know where [...] be different from the original. Bina from [facility] calling in. She wanted to know where the pt was at on the OR wait list. E-mail sent to Connie E-mail sent 04/30/22 [facility] History of Present illness Narrative 03-13-2022 Martha Coreas DMD - 03/13/2022 10:06 AM EST Note Date & Type Note Facility 03-13-2022 History of Presen t illness Narrative ----- Sunday, March 13, 2022 at 11:58:40 AM ----- ----- Provider: [id number] - Martha Coreas DMD -- Clinic: [place] ----- OR EVALUATION Patient presents for evaluation [...] available. Legal Guardian: Toshia Esteves Phone #: [phone] NOTE: Patient had a hard time leaning her head back, but allowed me to look. Patient not indicating she is in any pain. #8 is very discolored - most likely will need RCT treatment. Gingiva very red and irritated. Caregiver did not know who patient's guardian was or contact information, looked it up in [facility]. Next Visit: OR documented in this encounter [facility] Summary Purpose Family History No Family History Records FoundNo Family History Records FoundNo Family History Records FoundNo Family History Records Found Advance Directives No Advanced Directives Records FoundNo Advanced Directives Records FoundNo Advanced Directives Records FoundNo Advanced Directives Records Found Additional Source Comments INFORMATION SOURCE (unrecogn ized section and content) DATE CREATED AUTHOR 10/16/2017 [facility] DATE CREATED AUTHOR AUTHOR'S ORGANIZ ATION 05/01/2022 [facility] DATE CREATED AUTHOR AUTHOR'S ORGANIZ ATION 09/02/2022 [facility] DATE CREATED AUTHOR AUTHOR'S ORGANIZ ATION 08/07/2023 [facility] Reason for Visit (unrecogniz ed section and [...] BE BASED ON THE PRIMARY CLINICAL RECORDS. [facility] provides no warranty or guarantee of the accuracy or completeness of information in this document.
== END 2023-08-11 17:16 | disposition home or self-care (01) ==
PROVIDERS: Emergency Provider Emergency Medicine; PCP Family Medicine
DX: S00.83XA Contusion of other part of head, initial encounter (principal); W19.XXXA Unspecified fall, initial encounter; F79 Unspecified intellectual disabilities; Z79.899 Other long term (current) drug therapy; Z79.890 Hormone replacement therapy; G47.9 Sleep disorder, unspecified; E03.9 Hypothyroidism, unspecified; F41.9 Anxiety disorder, unspecified; F84.0 Autistic disorder
CPT/HCPCS: 70450; 70486; 99284

== ENCOUNTER 2023-09-12 06:49 | Outpatient (OUT) | payer MEDICARE, MEDICAID, SELFPAY ==
--- OUTSIDE RECORDS SUMMARY | 2023-09-12 06:52 | XMS_ITS | CCD ---
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 Machine Adjuster Name Role Phone PHYSICIAN, DEFAULT Unavailable Unavailable [...] DR KRIS White Consulting Unavailable TILLEY, DR ADRILE Craft Admitting Unavailable TILLEY, DR ADRIEL Craft [...] Ethosuximide; Translations: [ETHOSUXIMIDE] Drug Allergy 09-15-2014 Rash [facility] (1 source) Allopurinol Drug Allergy 07-16-2013 [facility] Repository (1 source) Ethosuximide Drug Allergy 07-16-2013 [facility] Repository Medications Current Medications Medication Drug Class(es) [...] (2 sources) Corticosteroid Fluticasone Propionate (FLONASE NASAL) [place] into each nostril. 0 Active ibuprofen 600 [...] ORAL) Take by mouth. 0 Active sennosides, longterm 15 mg oral tablet (2 sources) take [...] 07-21-2022 Episodic Other aftercare (5 sources) Other detention (current) drug therapy; Translations: [OTH ENGINEER ASSISTANT CURRENT DRUG THERAPY] Onset: 04-03-2022 Episodic Superficial injury; contusion (1 source) Contusion of other part of head, initial encounter; Translations: [CONTUS OTH PRT HEAD INITIAL ENCNTR] Onset: 07-23-2022 Episodic Thyroid disorders (13 sources) Hypothyroidism, unspecified; Translations: [Autoimmune thyroiditis] Onset: 06-27-2022 Chronic Results Test Name Value Interpretation Reference Range Facility FREE T4on 08-29-2022 Free T4 [Mass/Vol] 1.76 ng/dL Critically high 0.76-1.46 [facility] Comment on above: Performed By: #### F T4 #### [facility] Laboratory [address] [place] [id number] Volodymyr Paez TSHon 08-29-2022 TSH Qn m[IU]/L Critically low 0.358-3.[address] [facility] Comment on above: Performed By: #### T SH #### [facility] [address] [address] [address] Volodymyr Paez CULTURE URINEon 08-24-2022 CULTURE [...] F Tetracycline >=16 R F Normal [facility] Comment on above: Performed By: #### T SH, CMP #### [facility] [address] [place] [address] Dr. Volodymyr Paez UA (CLEAN/CATCH) TIMBER FELLER/MICRO I F IND.on 08-21-2022 Bilirubin Ql (U) Negative Normal NEGATIVE [facility] Comment on above: Performed By: #### U ACSIND, UMICRO #### [facility] [address] [place] [address] Dr. Volodymyr Paez Clarity (U) CLEAR Normal CLEAR [facility] Comment on above: Performed By: #### U ACSIND, UMICRO #### [facility] [address] [place] [address] Dr. Volodymyr Paez Color (U) LT. YELLOW Normal YELLOW [facility] Comment on above: Performed By: #### U ACSIND, UMICRO #### [facility] [address] [place] [address] Dr. Volodymyr Paez Glucose Ql (U) Negative Normal NEGATIVE [facility] Comment on above: Performed By: #### U ACSIND, UMICRO #### [facility] [address] [place] [address] Dr. Volodymyr Paez Hemoglobin Ql (U) Negative Normal NEGATIVE [facility] Comment on above: Performed By: #### U ACSIND, UMICRO #### [facility] [address] [place] [address] Dr. Volodymyr Paez Ketones Ql (U) Negative Normal NEGATIVE [facility] Comment on above: Performed By: #### U ACSSHAHEEN UMICRO #### [facility] [address] [address] [address] Volodymyr Paez LEUKOCYTES SMALL Abnormal NEGATIVE [facility] Comment on above: Performed By: #### U ACSSHAHEEN, UMICRO #### [facility] [address] [address] [address] Volodymyr Paez Nitrite Ql (U) Negative Normal NEGATIVE [facility] Comment on above: Performed By: #### U ACSSHAHEEN UMICRO #### [facility] [address] [address] [address] Volodymyr Paez pH (U) 7.0 [pH] Normal 5-9 [facility] Comment on above: Performed By: #### U ACSSHAHEEN ICRO #### [facility] [address] [place] [address] Dr. Volodymyr Paez SPEC GRAVITY 1.020 Normal 1.005-<=1.[address] [facility] Comment on above: Performed By: #### U ACSSHAHEEN ICRO #### [facility] [address] [place] [address] Dr. Volodymyr Paez UA PROTEIN Negative Normal NEGATIVE/ TRACE [facility] Comment on above: Performed By: #### U VERA ICRO #### [facility] [address] [address] [address] Volodymyr Paez UR MICRO IND INDICATED Normal [facility] Comment on above: Performed By: #### U VERA UMICRO #### [facility] [address] [address] [address] Volodymyr Paez Urobilinogen Qn (U) 0.2 {Leta'U}/dL Normal 0.2 - 1. 0 [facility] Comment on above: Performed By: #### U ACSSHAHEEN ICRO #### [facility] [address] [address] [address] Volodymyr Paez URINE MICROSCOPIC ONLYon BACTERIA SMALL Abnormal NONE SEEN [facility] Comment on above: Performed By: #### U ACSSHAHEEN UMICRO #### [facility] [address] [place] [address] Dr. Volodymyr Paez Bacteria identified Cx Nom (U) INDICATED Normal [facility] Comment on above: Performed By: #### U ACSSHAHEEN, UMICRO #### [facility] [address] [place] [address] Dr. Volodymyr Paez CAST NONE SEEN Normal NONE SEEN [facility] Comment on above: Performed By: #### U ACSSHAHEEN, UMICRO #### [facility] [address] [place] [address] Dr. Volodymyr Paez Crystals LM Nom (Urine sed) NONE SEEN Normal NONE SEEN [facility] Comment on above: Performed By: #### U ACSSHAHEEN, UMICRO #### [facility] [address] [place] [address] Dr. Volodymyr Paez Epithelial cells LM Ql (Urine sed) MODERATE Abnormal NONE SEEN /RARE [facility] Comment on above: Performed By: #### U ACSSHAHEEN UMICRO #### [facility] [address] [place] [address] Dr. Volodymyr Paez MUCOUS TRACE Abnormal NONE SEEN [facility] Comment on above: Performed By: #### U ACSSHAHEEN UMICRO #### [facility] [address] [place] [address] Dr. Volodymyr Paez RBC 2-5 Abnormal 0-2 [facility] Comment on above: Performed By: #### U ACSSHAHEEN UMICRO #### [facility] [address] [place] [address] Dr. Volodymyr Paez WBC 10-20 Abnormal NONE SEEN [facility] Comment on above: Performed By: #### U ACSSHAHEEN, UMICRO #### [facility] [address] [place] [address] Dr. Volodymyr Paez LAMOTRIGINEon 08-13-2022 Lamotrigine, Serum 11.2 ug/mL Normal 2.0-20.0 [facility] Comment on above: Result Comment: Dete ction Limit = 1.0 Performed By: #### T SH, CMP #### [facility] [address] [place] [address] Dr. Volodymyr Paez CBC AUTO DIFFon 08-09-2022 BASO # 0.0 103/ul Normal 0.0-0.1 [facility] Comment on above: Performed By: #### C BC #### [facility] [address] [place] [address] Dr. Volodymyr Paez Basophils/100 WBC (Bld) 0.4 % Normal 0.2-2.0 [facility] Comment on above: Performed By: #### C BC #### [facility] [address] [place] [address] Dr. Volodymyr Paez EO # 0.4 103/ul Normal 0.0-0.7 [facility] Comment on above: Performed By: #### C BC #### [facility] [address] [place] [address] Dr. Volodymyr Paez Eosinophils/100 WBC (Bld) 4.3 % Normal 0.9-7.0 [facility] Comment on above: Performed By: #### C BC #### [facility] [address] [place] [address] Dr. Volodymyr Paez Erythrocyte distribution width (RBC) [Ratio] 13.2 % Normal 11.0-15.0 [facility] Comment on above: Performed By: #### C BC #### [facility] [address] [place] [address] Dr. Volodymyr Paez Hematocrit (Bld) [Volume fraction] 40.2 % Normal 36.0-48.0 [facility] Comment on above: Performed By: #### C BC #### [facility] [address] [place] [address] Dr. Volodymyr Paez Hemoglobin (Bld) [Mass/Vol] 13.8 g/dL Normal 12.0-16.0 [facility] Comment on above: Performed By: #### C BC #### [facility] [address] [place] [address] Dr. Volodymyr Paez IG # 0.02 10e3/ul Normal 0.00-0.03 [facility] Comment on above: Performed By: #### C BC #### [facility] [address] [place] [address] Dr. Volodymyr Paez IG % 0.2 % Normal 0.0-0.5 [facility] Comment on above: Performed By: #### C BC #### [facility] [address] [place] [address] Dr. Volodymyr Paez LYMPH # 4.3 103/ul Critically high 1.2-3.8 [facility] Comment on above: Performed By: #### C BC #### [facility] [address] [place] [address] Dr. Volodymyr Paez Lymphocytes/100 WBC (Bld) 51.8 % Normal 20.5-60.0 [facility] Comment on above: Performed By: #### C BC #### [facility] [address] [place] [address] Dr. Volodymyr Paez MANUAL DIFF REQ NO Normal [facility] Comment on above: Performed By: #### C BC #### [facility] [address] [place] [address] Dr. Volodymyr Paez MCH (RBC) [Entitic mass] 31.0 pg Normal 26.7-34.0 [facility] Comment on above: Performed By: #### C BC #### [facility] [address] [place] [address] Dr. Volodymyr Paez MCHC (RBC) [Mass/Vol] 34.3 g/dL Normal 29.9-35.2 [facility] Comment on above: Performed By: #### C BC #### [facility] [address] [place] [address] Dr. Volodymyr Paez MCV (RBC) [Entitic vol] 90.3 fL Normal 81.0-99.0 [facility] Comment on above: Performed By: #### C BC #### [facility] [address] [place] [address] Dr. Volodymyr Paez MONO # 0.9 103/ul Critically high 0.3-0.8 [facility] Comment on above: Performed By: #### C BC #### [facility] [address] [place] [address] Dr. Volodymyr Paez Monocytes/100 WBC (Bld) 10.4 % Normal 1.7-12.0 [facility] Comment on above: Performed By: #### C BC #### [facility] [address] [place] [address] Dr. Volodymyr Paez NEUT # 2.7 103/ul Normal 1.4-6.5 [facility] Comment on above: Performed By: #### C BC #### [facility] [address] [place] [address] Dr. Volodymyr Paez Neutrophils/100 WBC (Bld) 32.9 % Critically low 43.0-75.0 [facility] Comment on above: Performed By: #### C BC #### [facility] [address] [place] [address] Dr. Volodymyr Paez Platelet mean volume (Bld) [Entitic vol] 10.3 fL Normal 9.5-13.5 [facility] Comment on above: Performed By: #### C BC #### [facility] [address] [place] [address] Dr. Volodymyr Paez PLT 231 103/ul Normal 150-450 [facility] Comment on above: Performed By: #### C BC #### [facility] [address] [place] [address] Dr. Volodymyr Paez RBC 4.45 106/ul Normal 4.20-5.40 [facility] Comment on above: Performed By: #### C BC #### [facility] [address] [place] [address] Dr. Volodymyr Paez WBC 8.2 103/ul Normal 4.0-11.0 [facility] Comment on above: Performed By: #### C BC #### [facility] [address] [place] [address] Dr. Volodymyr Paez DEPAKENE/ VALPROIC ACIDon DEPAKENE 80.3 ug/ml Normal 50.0-100.0 [facility] Comment on above: Performed By: #### V ALP #### [facility] [address] [place] [address] Dr. Volodymyr Paez US THYROIDon 07-10-2022 US [...] 6 mm. No follow-up required TI-RADS: The [employer] TI-RADS committee's white paper recommendations for thyroid lesions classified as TR4 (moderately suspicious) are listed below: > 1.0 cm. Follow-up ultrasound in 1, 2, 3, and 5 years. > 1.5 cm. FNA. J. Am Chidi Radiol 2017;14:587-595. Electronically authenticated by: MATILDE WATERMAN Date: 2022-07-10 13:01 Normal [facility] LAMOTRIGINEon 06-29-2022 Lamotrigine, Serum 14.2 ug/mL Normal 2.0-20.0 [facility] Comment on above: Result Comment: Dete ction Limit = 1.0 Performed By: #### T AKIKO, CMP #### [facility] Laboratory [address] [place] [address] Dr. Volodymyr Paez CBC AUTO DIFFon 06-27-2022 BASO # 0.1 103/ul Normal 0.0-0.1 [facility] Comment on above: Performed By: #### T AKIKO, CMP #### [facility] [address] [place] [address] Dr. Volodymyr Paez Basophils/100 WBC (Bld) 0.7 % Normal 0.2-2.0 [facility] Comment on above: Performed By: #### T AKIKO, CMP #### [facility] [address] [place] [address] Dr. Volodymyr Paez EO # 0.4 103/ul Normal 0.0-0.7 [facility] Comment on above: Performed By: #### T SH, CMP #### [facility] [address] [place] [address] Dr. Volodymyr Paez Eosinophils/100 WBC (Bld) 5.1 % Normal 0.9-7.0 [facility] Comment on above: Performed By: #### T SH, CMP #### [facility] [address] [place] [address] Dr. Volodymyr Paez Erythrocyte distribution width (RBC) [Ratio] 13.1 % Normal 11.0-15.0 [facility] Comment on above: Performed By: #### T AKIKO, CMP #### [facility] [address] [place] [address] Dr. Volodymyr Paez Hematocrit (Bld) [Volume fraction] 39.7 % Normal 36.0-48.0 [facility] Comment on above: Performed By: #### T AKIKO, CMP #### [facility] [address] [place] [address] Dr. Volodymyr Paez Hemoglobin (Bld) [Mass/Vol] 13.3 g/dL Normal 12.0-16.0 [facility] Comment on above: Performed By: #### T AKIKO, CMP #### [facility] [address] [place] [address] Dr. Volodymyr Paez IG # 0.02 10e3/ul Normal 0.00-0.03 [facility] Comment on above: Performed By: #### T AKIKO, CMP #### [facility] [address] [place] [address] Dr. Volodymyr Paez IG % 0.3 % Normal 0.0-0.5 [facility] Comment on above: Performed By: #### T SH, CMP #### [facility] [address] [place] [address] Dr. Volodymyr Paez LYMPH # 3.6 103/ul Normal 1.2-3.8 [facility] Comment on above: Performed By: #### T AKIKO, CMP #### [facility] [address] [place] [address] Dr. Volodymyr Paez Lymphocytes/100 WBC (Bld) 47.4 % Normal 20.5-60.0 [facility] Comment on above: Performed By: #### T SH, CMP #### [facility] [address] [place] [address] Dr. Volodymyr Paez MANUAL DIFF REQ NO Normal [facility] Comment on above: Performed By: #### T SH, CMP #### [facility] [address] [place] [address] Dr. Volodymyr Paez MCH (RBC) [Entitic mass] 30.3 pg Normal 26.7-34.0 [facility] Comment on above: Performed By: #### T SH, CMP #### [facility] [address] [place] [address] Dr. Volodymyr Paez MCHC (RBC) [Mass/Vol] 33.5 g/dL Normal 29.9-35.2 [facility] Comment on above: Performed By: #### T SH, CMP #### [facility] [address] [place] [address] Dr. Volodymyr Paez MCV (RBC) [Entitic vol] 90.4 fL Normal 81.0-99.0 [facility] Comment on above: Performed By: #### T SH, CMP #### [facility] [address] [place] [address] Dr. Volodymyr Paez MONO # 0.9 103/ul Critically high 0.3-0.8 [facility] Comment on above: Performed By: #### T SH, CMP #### [facility] [address] [place] [address] Dr. Volodymyr Paez Monocytes/100 WBC (Bld) 11.3 % Normal 1.7-12.0 [facility] Comment on above: Performed By: #### T SH, CMP #### [facility] [address] [place] [address] Dr. Volodymyr Paez NEUT # 2.7 103/ul Normal 1.4-6.5 [facility] Comment on above: Performed By: #### T SH, CMP #### [facility] [address] [place] [address] Dr. Volodymyr Paez Neutrophils/100 WBC (Bld) 35.2 % Critically low 43.0-75.0 [facility] Comment on above: Performed By: #### T SH, CMP #### [facility] [address] [place] [address] Dr. Volodymyr Paez Platelet mean volume (Bld) [Entitic vol] 11.4 fL Normal 9.5-13.5 [facility] Comment on above: Performed By: #### T SH, CMP #### [facility] [address] [place] [address] Dr. Volodymyr Paez PLT 96 103/ul Critically low 150-450 [facility] Comment on above: Result Comment: slid e made; no plt clumps seen Performed By: #### T SH, CMP #### [facility] [address] [place] [address] Dr. Volodymyr Paez RBC 4.39 106/ul Normal 4.20-5.40 [facility] Comment on above: Performed By: #### T SH, CMP #### [facility] [address] [place] [address] Dr. Volodymyr Paez WBC 7.6 103/ul Normal 4.0-11.0 [facility] Comment on above: Performed By: #### T SH, CMP #### [facility] [address] [place] [address] Dr. Volodymyr Paez FREE T4on 06-27-2022 Free T4 [Mass/Vol] 1.45 ng/dL Normal 0.76-1.46 [facility] Comment on above: Performed By: #### F T4 #### [facility] [address] [place] [address] Dr. Volodymyr Paez PROF 14(COMP METB)on 023 Albumin [Mass/Vol] 3.2 g/dL Critically low 3.4-5.0 [facility] Comment on above: Performed By: #### T SH, CMP #### [facility] [address] [place] [address] Dr. Volodymyr Paez Albumin/Globulin [Mass ratio] 0.7 {ratio} Normal [facility] Comment on above: Performed By: #### T SH, CMP #### [facility] [address] [place] [address] Dr. Volodymyr Paez ALP [Catalytic activity/Vol] 65 U/L Normal 46-116 [facility] Comment on above: Performed By: #### T SH, CMP #### [facility] [address] [place] [address] Dr. Volodymyr Paez ALT [Catalytic activity/Vol] 20 U/L Normal 14-59 [facility] Comment on above: Performed By: #### T SH, CMP #### [facility] [address] [place] [address] Dr. Volodymyr Paez Anion gap [Moles/Vol] 11.3 mmol/L Normal [facility] Comment on above: Performed By: #### T AKIKO, CMP #### [facility] [address] [place] [address] Dr. Volodymyr Paez AST [Catalytic activity/Vol] 25 U/L Normal 15-37 [facility] Comment on above: Performed By: #### T AKIKO, CMP #### [facility] [address] [place] [address] Dr. Volodymyr Paez Bilirubin [Mass/Vol] 0.3 mg/dL Normal 0.2-1.0 [facility] Comment on above: Performed By: #### T AKIKO, CMP #### [facility] [address] [place] [address] Dr. Volodymyr Paez Calcium [Mass/Vol] 9.5 mg/dL Normal 8.5-10.1 [facility] Comment on above: Performed By: #### T SH, CMP #### [facility] [address] [place] [address] Dr. Volodymyr Paez Chloride [Moles/Vol] 100 mmol/L Normal 98-107 [facility] Comment on above: Performed By: #### T SH, CMP #### [facility] [address] [place] [address] Dr. Volodymyr Paez CO2 [Moles/Vol] 30.1 mmol/L Normal 21.0-32.0 [facility] Comment on above: Performed By: #### T SH, CMP #### [facility] [address] [place] [address] Dr. Volodymyr Paez Creatinine [Mass/Vol] 0.92 mg/dL Normal 0.55-1.02 [facility] Comment on above: Performed By: #### T SH, CMP #### [facility] [address] [address] [address] Volodymyr Paez EGFR-AF KITTITIAN >60 Normal >=60 [facility] Comment on above: Performed By: #### T SH, CMP #### [facility] [address] [place] [address] Dr. Volodymyr Paez EGFR-NON AF KITTITIAN >60 Normal >=60 [facility] Comment on above: Performed By: #### T SH, CMP #### [facility] [address] [place] [address] Dr. Volodymyr Paez Globulin (S) [Mass/Vol] 4.4 g/dL Normal [facility] Comment on above: Performed By: #### T SH, CMP #### [facility] [address] [place] [address] Dr. Volodymyr Paez Glucose [Mass/Vol] 76 mg/dL Normal 74-106 [facility] Comment on above: Performed By: #### T SH, CMP #### [facility] [address] [place] [address] Dr. Volodymyr Paez Potassium [Moles/Vol] 4.4 mmol/L Normal 3.5-5.1 [facility] Comment on above: Performed By: #### T SH, CMP #### [facility] [address] [place] [address] Dr. Volodymyr Paez Protein [Mass/Vol] 7.6 g/dL Normal 6.4-8.2 [facility] Comment on above: Performed By: #### T SH, CMP #### [facility] [address] [place] [address] Dr. Volodymyr Paez Sodium [Moles/Vol] 137 mmol/L Normal 136-145 [facility] Comment on above: Performed By: #### T SH, CMP #### [facility] [address] [address] [address] Volodymyr Paez Urea nitrogen [Mass/Vol] 7.0 mg/dL Normal 7.0-18.0 [facility] Comment on above: Performed By: #### T SH, CMP #### [facility] [address] [address] [address] Volodymyr Paez Urea nitrogen/Creatinine [Mass ratio] 7.6 mg/mg Normal [facility] Comment on above: Performed By: #### T SH, CMP #### [facility] [address] [address] [address] Volodymyr Paez TSHon 06-27-2022 TSH 0.099 uIU/mL Critically low 0.358-3.740 [facility] Comment on above: Performed By: #### T AKIKO, CMP #### [facility] [address] [address] [address] Volodymyr Paez Progress Noteson 05-01-2022 [employer] Authentication Interface Message Text Received message from Connie ([facility] -- Bina from [place] calling to schedule an OR visit. -- I spoke to Cate today, informed her of the wait time -- we will call when there's an available opening for Ms. Esteves. Cate said that she will leave message for Bina and note it in charts. ----- Sunday, May 01, 2022 at 8:14:46 AM ----- ----- Provider: Parish Castellanos Specialist -- Clinic: [place] ----- Normal [facility] Telephone Encounteron 2022 Area Plant Manager Authentication Interface Message Text Bina from [facility] calling in. She wanted to know where the pt was at on the OR wait list. E-mail sent to Connie E-mail sent 04/30/22 Normal [facility] DEPAKENE/ VALPROIC ACIDon DEPAKENE 72.4 ug/ml Normal 50.0-100.0 [facility] Comment on above: Performed By: #### T , CMP #### [facility] [address] [address] [address] Volodymyr Paez Progress Noteson 03-13-2022 Area Plant Manager Authentication Interface Message Text ----- Sunday, March 13, 2022 at 11:58:40 AM ----- ----- Provider: Ashely Coreas DMD -- Clinic: [place] ----- OR EVALUATION Patient presents for evaluation [...] available. Legal Guardian: Toshia Esteves Phone #: [phone] NOTE: Patient had a hard time leaning her head back, but allowed me to look. Patient not indicating she is in any pain. #8 is very discolored - most likely will need RCT treatment. Gingiva very red and irritated. Caregiver did not know who patient's guardian was or contact information, looked it up in [employer]. Next Visit: OR Normal [facility] US THYROIDon 10-25-2021 US THYROID EXAMINATION: [...] screening is still recommended. TR 4: The [employer] TI-RADS committee's white paper recommendations for thyroid lesions classified as TR4 (moderately suspicious) are listed below: > 1.0 cm. Follow-up ultrasound in 1, 2, 3, and 5 years. > 1.5 cm. FNA. J. Am Chidi Radiol 2017;14:587-595. Electronically authenticated by: KRIS MENDOZA Date: 2021-10-25 09:31 Normal [facility] FREE T4on 10-24-2021 Free T4 [Mass/Vol] 1.08 ng/dL Normal 0.76-1.46 [facility] Comment on above: Performed By: #### T SH, CMP #### [facility] [address] [address] [address] Volodymyr Paez TSHon 10-24-2021 TSH 12.719 uIU/mL Critically high 0.358-3.740 [facility] Comment on above: Performed By: #### T SH #### [facility] [address] [address] [address] Volodymyr Paez Encounters Encounter Date Encounter [...] REQUEST Facility:[facility] Start: 04-30-2022 Telephone encounter Martha stephensonider DMD Work Phone: [facility] Comment on above: Dental Start: 04-03-2022 End: 04-04-[address] ADRIEL TILLEY Facility:[facility] Start: 03-13-2022 End: 03-18-2022 ambulatory UNKNOWN PROVIDER Facility:[facility] Start: 03-13-2022 End: 03-18-2022 Patient encounter procedure Martha Cooperrider DMD Work Phone: [facility] Start: 10-24-2021 End: 10-25-[address] DOCTOR JAVED Facility: Start: 11-07-2016 End: 11-08-2016 Ambulatory DEFAULT PHYSICIAN Facility:[facility] Plan of Treatment Date Care Activity Detail Author Start: 2043 Shingles (RZV) Vacci ne (1 of 2) Shingles (RZV) Vaccine (1 of 2) [facility] Start: 01-20-2022 Influenza vaccination Influ[facility] ine [facility] Start: 07-19-2020 COVID-19 Vaccine (3 - Booster for Pfizer series) COVID-19 Vaccine (3 - Booster for Pfizer series) [facility] Start: 2014 Screening for malign ant neoplasm of cervix Pap Smear [facility] Start: 2011 Hepatitis C screening Hepatitis C An tibody [facility] Start: 2011 Tetanus + diphtheria + acellular pertussis vaccine (product) [facility]ap [facility] Start: 01-02-2008 HIV screening HIV Test [facility] Payers Date Payer Category Payer Unknown 2013 Medicaid [id number] 2012 Medicare MEDICARE MEDICAR E PART A & B [id number] 2012-Present [address] [place] [address] Medicare [id number] 1993 Unknown [id number] 1993 Unknown [id number] 1959 Medicaid [id number] 1959 Medicare [id number] 1954 Unknown [id number] 1954 Unknown [id number] 1954 Unknown [id number] 1954 Unknown [id number] [id number] 1954 Unknown [id number] [id number] 1954 Unknown [id number] 1954 Unknown [id number] 1954 Unknown [id number] Social History Date Type Detail Facility Tobacco smoking stat [facility] Start: 1995 Sex Assigned At Not on file [facility] Note 04-30-2022 Telephone Encounter - Liliana Song - 04/30/2022 3:03 PM EST Note Date & Type Note Facility 04-30-2022 Miscellaneous Notes Formattin g of this note might be different from the original. Bina from [facility] calling in. She wanted to know where the pt was at on the OR wait list. E-mail sent to Connie E-mail sent 04/30/22 documented in this encounter [facility] Telephone encounter Note 04-30-2022 Telephone Encounter - Liliana Song - 04/30/2022 3:03 PM EST Note Date & Type Note Facility 04-30-2022 Telephone encounter Note Form atting of this note might be different from the original. Bina from [facility] calling in. She wanted to know where the pt was at on the OR wait list. E-mail sent to Connie E-mail sent 04/30/22 [facility] History of Present illness Narrative 03-13-2022 Martha Coreas DMD - 03/13/2022 10:06 AM EST Note Date & Type Note Facility 03-13-2022 History of Presen t illness Narrative ----- Saturday, March 13, 2022 at 11:58:40 AM ----- ----- Provider: [id number] - Martha Coreas DMD -- Clinic: [place] ----- OR EVALUATION Patient presents for evaluation [...] available. Legal Guardian: Toshia Esteves Phone #: [phone] NOTE: Patient had a hard time leaning her head back, but allowed me to look. Patient not indicating she is in any pain. #8 is very discolored - most likely will need RCT treatment. Gingiva very red and irritated. Caregiver did not know who patient's guardian was or contact information, looked it up in [facility]. Next Visit: OR [facility] Summary Purpose Family History No Family History Records FoundNo Family History Records FoundNo Family History Records FoundNo Family History Records Found Advance Directives No Advanced Directives Records FoundNo Advanced Directives Records FoundNo Advanced Directives Records FoundNo Advanced Directives Records Found Additional Source Comments INFORMATION SOURCE (unrecogn ized section and content) DATE CREATED AUTHOR 10/16/2017 [facility] DATE CREATED AUTHOR AUTHOR'S ORGANIZ ATION 05/01/2022 [facility] DATE CREATED AUTHOR AUTHOR'S ORGANIZ ATION 09/02/2022 [facility] DATE CREATED AUTHOR AUTHOR'S ORGANIZ ATION 08/07/2023 [facility] Reason for Visit (unrecogniz ed section and [...] BE BASED ON THE PRIMARY CLINICAL RECORDS. [employer] [facility]. provides no warranty or guarantee of the accuracy or completeness of information in this document.
[2023-09-12 13:06] LABS: Valproic Acid 93.9 ug/mL (50.0-100.0)
[2023-09-16 17:06] LABS: Lamotrigine (Lamictal), Serum 10.3 ug/mL (2.0-20.0)
== END 2023-09-12 06:50 | disposition home or self-care (01) ==
LOC: LAB 06:50
PROVIDERS: PCP Family Medicine; Visit Provider Family Medicine
DX: G40.909 Epilepsy, unspecified, not intractable, without status epilepticus (principal); Z79.899 Other long term (current) drug therapy
CPT/HCPCS: 36415; 80164; 80175

== ENCOUNTER 2023-09-24 20:40 | Emergency (ER) | payer MEDICARE, MEDICAID, SELFPAY ==
[2023-09-24 20:43] VITALS: BP 104/66; PULSE 77; TEMP 36.4; O2SAT 98
--- NOTE | 2023-09-24 20:54 | XR_ITS ---
The [address] [address] Patient Name: PONCE ESTEVES MRN: [id number] date: 1995 Sex: F Assigned Patient Location: ER Current Patient Location: ER Accession/Order Number: [id number] Exam Date: 09/24/2023 21:15 Report Date: 09/24/2023 22:16 At the request of: KEVIN REYES Procedure: XR elbow RT min 3V XR elbow RT min 3V 09/24/2023 9:15 PM EDT CLINICAL INDICATION: Fall COMPARISON: None. TECHNIQUE: 3 views of the right elbow. FINDINGS: The bones are intact. The alignment is anatomic. The joints are maintained. Soft tissue edema involving the posterior elbow with foci of air and irregularity. XR/XR elbow RT min 3V IMPRESSION: No acute osseous abnormality. Electronically authenticated by: LUL MERCER Date: 09/24/2023 22:16
--- OUTSIDE RECORDS SUMMARY | 2023-09-24 20:54 | XMS_ITS | CCD ---
Author Organization [facility] [employer] Care Team Providers Care Union Contract Representative Name Role Phone PHYSICIAN, DEFAULT Unavailable Unavailable PHYSICIAN, DEFAULT Unavailable Unavailable PB BRATH Unavailable Unavailable Unavailable Primary Care Provider Unavailabl [...] Unavailable HAY ., DR BLOCK Attending Unavailable ITLLEY, DR ADRIEL Craft Primary Care Unavailable REQUEST, [...] Ethosuximide; Translations: [ETHOSUXIMIDE] Drug Allergy 09-15-2014 [facility] (1 source) Allopurinol Drug Allergy 07-16-2013 [facility] (1 source) Ethosuximide Drug Allergy 07-16-2013 [facility] Medications Current Medications Medication Drug Class(es) [...] (2 sources) Corticosteroid Fluticasone Propionate (FLONASE NASAL) [place] into each nostril. 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] Onset: 04-03-2022 Episodic Superficial injury; contusion (1 source) Contusion of other part of head, initial encounter; Translations: [CONTUS OTH PRT HEAD INITIAL ENCNTR] Onset: 07-23-2022 Episodic Thyroid disorders (13 sources) Hypothyroidism, unspecified; Translations: [Autoimmune thyroiditis] Onset: 06-27-2022 Chronic Results Test Name Value Interpretation Reference Range Facility FREE T4on 08-29-2022 Free T4 [Mass/Vol] 1.76 ng/dL Critically high 0.76-1.46 [facility] Comment on above: Performed By: #### F T4 #### [facility] [address] [place] [id number] Volodymyr Paez TSHon 08-29-2022 TSH Qn m[IU]/L Critically low 0.358-3.740 [facility] Comment on above: Performed By: #### T SH #### [facility] [address] [address] [address] Volodymyr Paez CULTURE URINEon 08-24-2022 CULTURE [...] F Tetracycline >=16 R F Normal [facility] Comment on above: Performed By: #### T SH, CMP #### [facility] [address] [place] [address] Dr. Volodymyr Paez UA (CLEAN/CATCH) AMMONIA BOX TENDER/MICRO I F IND.on 08-21-2022 Bilirubin Ql (U) Negative Normal NEGATIVE [facility] Comment on above: Performed By: #### U ACSIND, UMICRO #### [facility] [address] [place] [address] Dr. Volodymyr Paez Clarity (U) CLEAR Normal CLEAR [facility] Comment on above: Performed By: #### U ACSIND, UMICRO #### [facility] [address] [place] [address] Dr. Volodymyr Paez Color (U) LT. YELLOW Normal YELLOW [facility] Comment on above: Performed By: #### U ACSIND, UMICRO #### [facility] [address] [place] [address] Dr. Volodymyr Paez Glucose Ql (U) Negative Normal NEGATIVE [facility] Comment on above: Performed By: #### U ACSIND, UMICRO #### [facility] [address] [place] [address] Dr. Volodymyr Paez Hemoglobin Ql (U) Negative Normal NEGATIVE [facility] Comment on above: Performed By: #### U ACSIND, UMICRO #### [facility] [address] [place] [address] Dr. Volodymyr Paez Ketones Ql (U) Negative Normal NEGATIVE [facility] Comment on above: Performed By: #### U ACSSHAHEEN UMICRO #### [facility] [address] [address] [address] Volodymyr Paez LEUKOCYTES SMALL Abnormal NEGATIVE [facility] Comment on above: Performed By: #### U ACSSHAHEEN, UMICRO #### [facility] [address] [address] [address] Volodymyr Paez Nitrite Ql (U) Negative Normal NEGATIVE [facility] Comment on above: Performed By: #### U ACSSHAHEEN UMICRO #### [facility] [address] [address] [address] Volodymyr Paez pH (U) 7.0 [pH] Normal 5-9 [facility] Comment on above: Performed By: #### U ACSSHAHEEN ICRO #### [facility] [address] [place] [address] Dr. Volodymyr Paez SPEC GRAVITY 1.020 Normal 1.005-<=1.025 [facility] Comment on above: Performed By: #### U ACSSHAHEEN ICRO #### [facility] [address] [place] [address] Dr. Volodymyr Paez UA PROTEIN Negative Normal NEGATIVE/ TRACE [facility] Comment on above: Performed By: #### U VERA ICRO #### [facility] [address] [address] [address] Volodymyr Paez UR MICRO IND INDICATED Normal [facility] Comment on above: Performed By: #### U VERA UMICRO #### [facility] [address] [address] [address] Volodymyr Paez Urobilinogen Qn (U) 0.2 {Leta'U}/dL Normal 0.2 - 1. 0 [facility] Comment on above: Performed By: #### U ACSSHAHEEN ICRO #### [facility] [address] [address] [address] Volodymyr Paez URINE MICROSCOPIC ONLYon BACTERIA SMALL Abnormal NONE SEEN [facility] Comment on above: Performed By: #### U ACSSHAHEEN UMICRO #### [facility] [address] [place] [address] Dr. Volodymyr Paez Bacteria identified Cx Nom (U) INDICATED Normal [facility] Comment on above: Performed By: #### U ACSSHAHEEN, UMICRO #### [facility] [address] [place] [address] Dr. Volodymyr Paez CAST NONE SEEN Normal NONE SEEN [facility] Comment on above: Performed By: #### U ACSSHAHEEN, UMICRO #### [facility] [address] [place] [address] Dr. Vloodymyr Paez Crystals LM Nom (Urine sed) NONE SEEN Normal NONE SEEN [facility] Comment on above: Performed By: #### U ACSSHAHEEN, UMICRO #### [facility] [address] [place] [address] Dr. Volodymyr Paez Epithelial cells LM Ql (Urine sed) MODERATE Abnormal NONE SEEN /RARE [facility] Comment on above: Performed By: #### U ACSSHAHEEN UMICRO #### [facility] [address] [place] [address] Dr. Volodymyr Paez MUCOUS TRACE Abnormal NONE SEEN [facility] Comment on above: Performed By: #### U ACSSHAHEEN UMICRO #### [facility] [address] [place] [address] Dr. Volodymyr Paez RBC 2-5 Abnormal 0-2 [facility] Comment on above: Performed By: #### U ACSSHAHEEN UMICRO #### [facility] [address] [place] [address] Dr. Volodymyr Paez WBC 10-20 Abnormal NONE SEEN [facility] Comment on above: Performed By: #### U ACSSHAHEEN, UMICRO #### [facility] [address] [place] [address] Dr. Volodymyr Paez LAMOTRIGINEon 08-13-2022 Lamotrigine, Serum 11.2 ug/mL Normal 2.0-20.0 [facility] Comment on above: Result Comment: Dete ction Limit = 1.0 Performed By: #### T SH, CMP #### [facility] [address] [place] [address] Dr. Volodymyr Paez CBC AUTO DIFFon 08-09-2022 BASO # 0.0 103/ul Normal 0.0-0.1 [facility] Comment on above: Performed By: #### C BC #### [facility] [address] [place] [address] Dr. Volodymyr Paez Basophils/100 WBC (Bld) 0.4 % Normal 0.2-2.0 [facility] Comment on above: Performed By: #### C BC #### [facility] [address] [place] [address] Dr. Volodymyr Paez EO # 0.4 103/ul Normal 0.0-0.7 [facility] Comment on above: Performed By: #### C BC #### [facility] [address] [place] [address] Dr. Volodymyr Paez Eosinophils/100 WBC (Bld) 4.3 % Normal 0.9-7.0 [facility] Comment on above: Performed By: #### C BC #### [facility] [address] [place] [address] Dr. Volodymyr Paez Erythrocyte distribution width (RBC) [Ratio] 13.2 % Normal 11.0-15.0 [facility] Comment on above: Performed By: #### C BC #### [facility] [address] [place] [address] Dr. Volodymyr Paez Hematocrit (Bld) [Volume fraction] 40.2 % Normal 36.0-48.0 [facility] Comment on above: Performed By: #### C BC #### [facility] [address] [place] [address] Dr. Volodymyr Paez Hemoglobin (Bld) [Mass/Vol] 13.8 g/dL Normal 12.0-16.0 [facility] Comment on above: Performed By: #### C BC #### [facility] [address] [place] [address] Dr. Volodymyr Paez IG # 0.02 10e3/ul Normal 0.00-0.03 [facility] Comment on above: Performed By: #### C BC #### [facility] [address] [place] [address] Dr. Volodymyr Paez IG % 0.2 % Normal 0.0-0.5 [facility] Comment on above: Performed By: #### C BC #### [facility] [address] [place] [address] Dr. Volodymyr Paez LYMPH # 4.3 103/ul Critically high 1.2-3.8 [facility] Comment on above: Performed By: #### C BC #### [facility] [address] [place] [address] Dr. Volodymyr Paez Lymphocytes/100 WBC (Bld) 51.8 % Normal 20.5-60.0 [facility] Comment on above: Performed By: #### C BC #### [facility] [address] [place] [address] Dr. Voldoymyr Paez MANUAL DIFF REQ NO Normal [facility] Comment on above: Performed By: #### C BC #### [facility] [address] [place] [address] Dr. Volodymyr Paez MCH (RBC) [Entitic mass] 31.0 pg Normal 26.7-34.0 [facility] Comment on above: Performed By: #### C BC #### [facility] [address] [place] [address] Dr. Volodymyr Paez MCHC (RBC) [Mass/Vol] 34.3 g/dL Normal 29.9-35.2 [facility] Comment on above: Performed By: #### C BC #### [facility] [address] [place] [address] Dr. Volodymyr Paez MCV (RBC) [Entitic vol] 90.3 fL Normal 81.0-99.0 [facility] Comment on above: Performed By: #### C BC #### [facility] [address] [place] [address] Dr. Volodymyr Paez MONO # 0.9 103/ul Critically high 0.3-0.8 [facility] Comment on above: Performed By: #### C BC #### [facility] [address] [place] [address] Dr. Volodymyr Paez Monocytes/100 WBC (Bld) 10.4 % Normal 1.7-12.0 [facility] Comment on above: Performed By: #### C BC #### [facility] [address] [place] [address] Dr. Volodymyr Paez NEUT # 2.7 103/ul Normal 1.4-6.5 [facility] Comment on above: Performed By: #### C BC #### [facility] [address] [place] [address] Dr. Volodymyr Paez Neutrophils/100 WBC (Bld) 32.9 % Critically low 43.0-75.0 [facility] Comment on above: Performed By: #### C BC #### [facility] [address] [place] [address] Dr. Volodymyr Paez Platelet mean volume (Bld) [Entitic vol] 10.3 fL Normal 9.5-13.5 [facility] Comment on above: Performed By: #### C BC #### [facility] [address] [place] [address] Dr. Volodymyr Paez PLT 231 103/ul Normal 150-450 [facility] Comment on above: Performed By: #### C BC #### [facility] [address] [place] [address] Dr. Volodymyr Paez RBC 4.45 106/ul Normal 4.20-5.40 [facility] Comment on above: Performed By: #### C BC #### [facility] [address] [place] [address] Dr. Volodymyr Paez WBC 8.2 103/ul Normal 4.0-11.0 [facility] Comment on above: Performed By: #### C BC #### [facility] [address] [place] [address] Dr. Volodymyr Paez DEPAKENE/ VALPROIC ACIDon DEPAKENE 80.3 ug/ml Normal 50.0-100.0 [facility] Comment on above: Performed By: #### V ALP #### [facility] [address] [place] [address] Dr. Volodymyr Paez US THYROIDon 07-10-2022 US [...] 6 mm. No follow-up required TI-RADS: The [employer] TI-RADS committee's white paper recommendations for thyroid lesions classified as TR4 (moderately suspicious) are listed below: > 1.0 cm. Follow-up ultrasound in 1, 2, 3, and 5 years. > 1.5 cm. FNA. J. Am Chidi Radiol 2017;14:587-595. Electronically authenticated by: MATILDE WATERMAN Date: 2022-07-10 13:01 Normal [facility] LAMOTRIGINEon 06-29-2022 Lamotrigine, Serum 14.2 ug/mL Normal 2.0-20.0 [facility] Comment on above: Result Comment: Dete ction Limit = 1.0 Performed By: #### T AKIKO, CMP #### [facility] [address] [place] [address] Dr. Volodymyr Paez CBC AUTO DIFFon 06-27-2022 BASO # 0.1 103/ul Normal 0.0-0.1 [facility] Comment on above: Performed By: #### T AKIKO, CMP #### [facility] [address] [place] [address] Dr. Volodymyr Paez Basophils/100 WBC (Bld) 0.7 % Normal 0.2-2.0 [facility] Comment on above: Performed By: #### T AKIOK, CMP #### [facility] [address] [place] [address] Dr. Volodymyr Paez EO # 0.4 103/ul Normal 0.0-0.7 [facility] Comment on above: Performed By: #### T SH, CMP #### [facility] [address] [place] [address] Dr. Volodymyr Paez Eosinophils/100 WBC (Bld) 5.1 % Normal 0.9-7.0 [facility] Comment on above: Performed By: #### T SH, CMP #### [facility] [address] [place] [address] Dr. Volodymyr Paez Erythrocyte distribution width (RBC) [Ratio] 13.1 % Normal 11.0-15.0 [facility] Comment on above: Performed By: #### T AKIKO, CMP #### [facility] [address] [place] [address] Dr. Volodymyr Paez Hematocrit (Bld) [Volume fraction] 39.7 % Normal 36.0-48.0 [facility] Comment on above: Performed By: #### T AKIKO, CMP #### [facility] [address] [place] [address] Dr. Volodymyr Paez Hemoglobin (Bld) [Mass/Vol] 13.3 g/dL Normal 12.0-16.0 [facility] Comment on above: Performed By: #### T AKIKO, CMP #### [facility] [address] [place] [address] Dr. Volodymyr Paez IG # 0.02 10e3/ul Normal 0.00-0.03 [facility] Comment on above: Performed By: #### T AKIKO, CMP #### [facility] [address] [place] [address] Dr. Volodymyr Paez IG % 0.3 % Normal 0.0-0.5 [facility] Comment on above: Performed By: #### T SH, CMP #### [facility] [address] [place] [address] Dr. Volodymyr Paez LYMPH # 3.6 103/ul Normal 1.2-3.8 [facility] Comment on above: Performed By: #### T AKIKO, CMP #### [facility] [address] [place] [address] Dr. Volodymyr Paez Lymphocytes/100 WBC (Bld) 47.4 % Normal 20.5-60.0 [facility] Comment on above: Performed By: #### T SH, CMP #### [facility] [address] [place] [address] Dr. Volodymyr Paez MANUAL DIFF REQ NO Normal [facility] Comment on above: Performed By: #### T SH, CMP #### [facility] [address] [place] [address] Dr. Volodymyr Paez MCH (RBC) [Entitic mass] 30.3 pg Normal 26.7-34.0 [facility] Comment on above: Performed By: #### T SH, CMP #### [facility] [address] [place] [address] Dr. Volodymyr Paez MCHC (RBC) [Mass/Vol] 33.5 g/dL Normal 29.9-35.2 [facility] Comment on above: Performed By: #### T SH, CMP #### [facility] [address] [place] [address] Dr. Volodymyr Paez MCV (RBC) [Entitic vol] 90.4 fL Normal 81.0-99.0 [facility] Comment on above: Performed By: #### T SH, CMP #### [facility] [address] [place] [address] Dr. Volodymyr Paez MONO # 0.9 103/ul Critically high 0.3-0.8 [facility] Comment on above: Performed By: #### T SH, CMP #### [facility] [address] [place] [address] Dr. Volodymyr Paez Monocytes/100 WBC (Bld) 11.3 % Normal 1.7-12.0 [facility] Comment on above: Performed By: #### T SH, CMP #### [facility] [address] [place] [address] Dr. Volodymyr Paez NEUT # 2.7 103/ul Normal 1.4-6.5 [facility] Comment on above: Performed By: #### T SH, CMP #### [facility] [address] [place] [address] Dr. Volodymyr Paez Neutrophils/100 WBC (Bld) 35.2 % Critically low 43.0-75.0 [facility] Comment on above: Performed By: #### T SH, CMP #### [facility] [address] [place] [address] Dr. Volodymyr Paez Platelet mean volume (Bld) [Entitic vol] 11.4 fL Normal 9.5-13.5 [facility] Comment on above: Performed By: #### T SH, CMP #### [facility] [address] [place] [address] Dr. Volodymyr Paez PLT 96 103/ul Critically low 150-450 [facility] Comment on above: Result Comment: slid e made; no plt clumps seen Performed By: #### T SH, CMP #### [facility] [address] [place] [address] Dr. Volodymyr Paez RBC 4.39 106/ul Normal 4.20-5.40 [facility] Comment on above: Performed By: #### T SH, CMP #### [facility] [address] [place] [address] Dr. Volodymyr Paez WBC 7.6 103/ul Normal 4.0-11.0 [facility] Comment on above: Performed By: #### T SH, CMP #### [facility] [address] [place] [address] Dr. Volodymyr Paez FREE T4on 06-27-2022 Free T4 [Mass/Vol] 1.45 ng/dL Normal 0.76-1.46 [facility] Comment on above: Performed By: #### F T4 #### [facility] [address] [place] [address] Dr. Volodymyr Paez PROF 14(COMP METB)on 023 Albumin [Mass/Vol] 3.2 g/dL Critically low 3.4-5.0 [facility] Comment on above: Performed By: #### T SH, CMP #### [facility] [address] [place] [address] Dr. Volodymyr Paez Albumin/Globulin [Mass ratio] 0.7 {ratio} Normal [facility] Comment on above: Performed By: #### T SH, CMP #### [facility] [address] [place] [address] Dr. Volodymyr Paez ALP [Catalytic activity/Vol] 65 U/L Normal 46-116 [facility] Comment on above: Performed By: #### T SH, CMP #### [facility] [address] [place] [address] Dr. Volodymyr Paez ALT [Catalytic activity/Vol] 20 U/L Normal 14-59 [facility] Comment on above: Performed By: #### T SH, CMP #### [facility] [address] [place] [address] Dr. Volodymyr Paez Anion gap [Moles/Vol] 11.3 mmol/L Normal [facility] Comment on above: Performed By: #### T AKIKO, CMP #### [facility] [address] [place] [address] Dr. Volodymyr Paez AST [Catalytic activity/Vol] 25 U/L Normal 15-37 [facility] Comment on above: Performed By: #### T AKIKO, CMP #### [facility] [address] [place] [address] Dr. Volodymyr Paez Bilirubin [Mass/Vol] 0.3 mg/dL Normal 0.2-1.0 [facility] Comment on above: Performed By: #### T AKIKO, CMP #### [facility] [address] [place] [address] Dr. Volodymyr Paez Calcium [Mass/Vol] 9.5 mg/dL Normal 8.5-10.1 [facility] Comment on above: Performed By: #### T SH, CMP #### [facility] [address] [place] [address] Dr. Volodymyr Paez Chloride [Moles/Vol] 100 mmol/L Normal 98-107 [facility] Comment on above: Performed By: #### T SH, CMP #### [facility] [address] [place] [address] Dr. Volodymyr Paez CO2 [Moles/Vol] 30.1 mmol/L Normal 21.0-32.0 [facility] Comment on above: Performed By: #### T SH, CMP #### [facility] [address] [place] [address] Dr. Volodymyr Paez Creatinine [Mass/Vol] 0.92 mg/dL Normal 0.55-1.02 [facility] Comment on above: Performed By: #### T SH, CMP #### [facility] [address] [address] [address] Volodymyr Paez EGFR-AF DUTCH >60 Normal >=60 [facility] Comment on above: Performed By: #### T SH, CMP #### [facility] [address] [place] [address] Dr. Volodymyr Paez EGFR-NON AF DUTCH >60 Normal >=60 [facility] Comment on above: Performed By: #### T SH, CMP #### [facility] [address] [place] [address] Dr. Volodymyr Paez Globulin (S) [Mass/Vol] 4.4 g/dL Normal [facility] Comment on above: Performed By: #### T SH, CMP #### [facility] [address] [place] [address] Dr. Volodymyr Paez Glucose [Mass/Vol] 76 mg/dL Normal 74-106 [facility] Comment on above: Performed By: #### T SH, CMP #### [facility] [address] [place] [address] Dr. Volodymyr Paez Potassium [Moles/Vol] 4.4 mmol/L Normal 3.5-5.1 [facility] Comment on above: Performed By: #### T SH, CMP #### [facility] [address] [place] [address] Dr. Volodymyr Paez Protein [Mass/Vol] 7.6 g/dL Normal 6.4-8.2 [facility] Comment on above: Performed By: #### T SH, CMP #### [facility] [address] [place] [address] Dr. Volodymyr Paez Sodium [Moles/Vol] 137 mmol/L Normal 136-145 [facility] Comment on above: Performed By: #### T SH, CMP #### [facility] [address] [address] [address] Volodymyr Paez Urea nitrogen [Mass/Vol] 7.0 mg/dL Normal 7.0-18.0 [facility] Comment on above: Performed By: #### T SH, CMP #### [facility] [address] [address] [address] Volodymyr Paez Urea nitrogen/Creatinine [Mass ratio] 7.6 mg/mg Normal [facility] Comment on above: Performed By: #### T SH, CMP #### [facility] [address] [address] [address] Volodymyr Paez TSHon 06-27-2022 TSH 0.099 uIU/mL Critically low 0.358-3.740 [facility] Comment on above: Performed By: #### T AKIKO, CMP #### [facility] [address] [address] [address] Volodymyr Paez Progress Noteson 05-01-2022 [employer]st Authentication Interface Message Text Received message from Connie ([facility]) -- Bina from [place] calling to schedule an OR visit. -- I spoke to Cate today, informed her of the wait time -- we will call when there's an available opening for Ms. Esteves. Cate said that she will leave message for Bina and note it in charts. ----- Sunday, May 01, 2022 at 8:14:46 AM ----- ----- Provider: Parish Castellanos Specialist -- Clinic: [place] ----- Normal [facility] Telephone Encounteron 2022 Furn[employer] Combination Analyst Authentication Interface Message Text Bina from [facility] calling in. She wanted to know where the pt was at on the OR wait list. E-mail sent to Connie E-mail sent 04/30/22 Normal [facility] DEPAKENE/ VALPROIC ACIDon DEPAKENE 72.4 ug/ml Normal 50.0-100.0 [facility] Comment on above: Performed By: #### T , CMP #### [facility] [address] [address] [address] Volodymyr Paez Progress Noteson 03-13-2022 Furnace Combination Analyst Authentication Interface Message Text ----- Sunday, March 13, 2022 at 11:58:40 AM ----- ----- Provider: Ashely Coreas DMD -- Clinic: [place] ----- OR EVALUATION Patient presents for evaluation [...] available. Legal Guardian: Toshia Esteves Phone #: [phone] NOTE: Patient had a hard time leaning her head back, but allowed me to look. Patient not indicating she is in any pain. #8 is very discolored - most likely will need RCT treatment. Gingiva very red and irritated. Caregiver did not know who patient's guardian was or contact information, looked it up in [employer]. Next Visit: OR Normal [facility] US THYROIDon 10-25-2021 US THYROID EXAMINATION: [...] screening is still recommended. TR 4: The [employer] TI-RADS committee's white paper recommendations for thyroid lesions classified as TR4 (moderately suspicious) are listed below: > 1.0 cm. Follow-up ultrasound in 1, 2, 3, and 5 years. > 1.5 cm. FNA. J. Am Chidi Radiol 2017;14:587-595. Electronically authenticated by: KRIS MENDOZA Date: 2021-10-25 09:31 Normal [facility] FREE T4on 10-24-2021 Free T4 [Mass/Vol] 1.08 ng/dL Normal 0.76-1.46 [facility] Comment on above: Performed By: #### T SH, CMP #### [facility] [address] [address] [address] Volodymyr Paez TSHon 10-24-2021 TSH 12.719 uIU/mL Critically high 0.358-3.740 [facility] Comment on above: Performed By: #### T SH #### [facility] [address] [address] [address] Volodymyr Paez Encounters Encounter Date Encounter [...] Telephone encounter Martha stephensonider DMD Work Phone: [facility] Comment on above: Dental Start: 04-03-2022 End: 04-04-[address] ADRIEL TILLEY Facility:[facility] Start: 03-13-2022 End: 03-18-2022 ambulatory UNKNOWN PROVIDER Facility:[facility] Start: 03-13-2022 End: 03-18-2022 Patient encounter procedure Martha Cooperrider DMD Work Phone: [facility] Start: 10-24-2021 End: 10-25-[address] DOCTOR JAVED Facility: Start: 11-07-2016 End: 11-08-2016 Ambulatory DEFAULT PHYSICIAN Facility:[facility] Plan of Treatment Date Care Activity Detail Author Start: 2043 Shingles (RZV) Vacci ne (1 of 2) Shingles (RZV) Vaccine (1 of 2) [facility] Start: 01-20-2022 Influenza vaccination [facility] ine [facility]: 07-19-2020 COVID-19 Vaccine (3 - Booster for Pfizer series) COVID-19 Vaccine (3 - Booster for Pfizer series) [facility] Start: 2014 Screening for malign ant neoplasm of cervix Pap Smear [facility] Start: 2011 Hepatitis C screening Hepatitis C An tibody [facility] Start: 2011 Tetanus + diphtheria + acellular pertussis vaccine (product) Tdap Booster [facility] Start: 01-02-2008 HIV screening HIV Test [facility] Payers Date Payer Category Payer Unknown 2013 Medicaid [id number] 2012 Medicare MEDICARE MEDICAR E PART A & B [id number] 2012-Present [address] [place] [address] Medicare [id number] 1993 Unknown [id number] 1993 Unknown [id number] 1959 Medicaid [id number] 1959 Medicare [id number] 1954 Unknown [id number] 1954 Unknown [id number] 1954 Unknown [id number] 1954 Unknown [id number] 1954 Unknown [id number] 1954 Unknown [id number] 1954 Unknown [id number] 1954 Unknown [id number] Social History Date Type Detail Facility Tobacco smoking stat [facility] Tobacco [facility] consumption [facility] Start: 1993 Sex Assigned At Not on file [facility] Note 04-30-2022 Telephone Encounter - Liliana Song - 04/30/2022 3:03 PM EST Note Date & Type Note Facility 04-30-2022 Miscellaneous Notes Formattin g of this note might be different from the original. Bina from [facility] calling in. She wanted to know where the pt was at on the OR wait list. E-mail sent to Connie E-mail sent 04/30/22 documented in this encounter [facility] Telephone encounter Note 04-30-2022 Telephone Encounter - Liliana Song - 04/30/2022 3:03 PM EST Note Date & Type Note Facility 04-30-2022 Telephone encounter Note Form atting of this note might be different from the original. Bina from [facility] calling in. She wanted to know where the pt was at on the OR wait list. E-mail sent to Connie E-mail sent 04/30/22 [facility] History of Present illness Narrative 03-13-2022 Martha Coreas DMD - 03/13/2022 10:06 AM EST Note Date & Type Note Facility 03-13-2022 History of Presen t illness Narrative ----- Saturday, March 13, 2022 at 11:58:40 AM ----- ----- Provider: [id number] - Martha Coreas DMD -- Clinic: [place] ----- OR EVALUATION Patient presents for evaluation [...] available. Legal Guardian: Toshia Esteves Phone #: [phone] NOTE: Patient had a hard time leaning her head back, but allowed me to look. Patient not indicating she is in any pain. #8 is very discolored - most likely will need RCT treatment. Gingiva very red and irritated. Caregiver did not know who patient's guardian was or contact information, looked it up in [facility]. Next Visit: OR documented in this encounter [facility] Summary Purpose Family History No Family History Records FoundNo Family History Records FoundNo Family History Records FoundNo Family History Records Found Advance Directives No Advanced Directives Records FoundNo Advanced Directives Records FoundNo Advanced Directives Records FoundNo Advanced Directives Records Found Additional Source Comments INFORMATION SOURCE (unrecogn ized section and content) DATE CREATED AUTHOR 10/16/2017 [facility] DATE CREATED AUTHOR AUTHOR'S ORGANIZ ATION 05/01/2022 [facility] DATE CREATED AUTHOR AUTHOR'S ORGANIZ ATION 09/02/2022 [facility] DATE CREATED AUTHOR AUTHOR'S ORGANIZ ATION 08/07/2023 [facility] [place] Reason for Visit (unrecogniz ed section and [...] BE BASED ON THE PRIMARY CLINICAL RECORDS. [employer] [facility] [facility]. provides no warranty or guarantee of the accuracy or completeness of information in this document.
--- NOTE | 2023-09-24 20:55 | ED.GENADUL1 ---
HPI HPI - General Adult General Chief complaint: Extremity Injury, Upper Stated complaint: fall Time Seen by Provider: 09/24/23 20:52 Source: caregiver and medical record Mode of arrival: ambulance Limitations: physical limitation History of Present Illness HPI narrative: Patient is a 28-year-old female with a history of autism, profound developmental delay who lives [facility] a [facility], presents to the emergency department by ambulance for evaluation of her right elbow. She sustained a fall yesterday. She was not evaluated at that time. This was apparently a witnessed fall at work and the patient has been acting appropriately. The penitentiary was concerned today by the appearance of her right elbow. No medications given prior to arrival. Related Data Home Medications ?Medication ?Instructions ?Recorded ?Confirmed ammonium lactate 12 % topical cream 1 applic topical BID 11/13/22 08/02/23 buspirone 30 mg tablet 30 mg PO TID 11/13/22 08/02/23 clonidine HCl 0.2 mg tablet 0.2 mg PO QID 11/13/22 08/02/23 divalproex 125 mg capsule,delayed 125 mg PO TID 11/13/22 08/02/23 release sprinkle famotidine 40 mg tablet 40 mg PO DAILY 11/13/22 08/02/23 guanfacine 2 mg tablet 2 mg PO BID 11/13/22 08/02/23 lamotrigine 100 mg tablet 150 mg PO AC 11/13/22 08/02/23 lamotrigine 200 mg tablet mg 11/13/22 levothyroxine 150 mcg tablet See Rx Instructions .Route .COMPLEX 11/13/22 08/02/23 (Synthroid) loratadine 10 mg tablet 10 mg PO AC 11/13/22 08/02/23 melatonin 3 mg tablet 3 mg PO .hs 11/13/22 08/02/23 norethindrone 1 mg-ethinyl 1 tab PO DAILY 11/13/22 08/02/23 estradiol 35 mcg tablet (Nortrel) polyethylene glycol 3350 17 17 g PO DAILY 11/13/22 08/02/23 gram/dose oral powder risperidone 1 mg tablet 3 mg PO BID 11/13/22 11/13/22 acetaminophen 500 mg tablet 1,000 mg PO .q4hr PRN pain 08/02/23 08/02/23 Previous Rx's ?Medication ?Instructions ?Recorded sulfamethoxazole 800 1 tab PO Q12H 7 days #14 tabs 05/05/23 mg-trimethoprim 160 mg tablet (Bactrim DS) cephalexin 500 mg capsule 500 mg PO Q8H 10 days #30 caps 09/24/23 Allergies Allergy/AdvReac Type Severity Reaction Status Date / Time ethosuximide [From Zarontin] Allergy Unknown Verified 09/24/23 20:47 linaclotide [From Linzess] Allergy Unknown Verified 09/24/23 20:47 Opioid HPI Opioid Management Most Recent Opioid Data: Last Pain Scale 3 08/11/23 15:28 Review of Systems ROS Status of ROS unobtainable due to medical condition and unobtainable due to mental status Constitutional Denies: fever Ears, nose, mouth, and throat Denies: nasal congestion Respiratory Denies: shortness of breath Gastrointestinal Denies: nausea or vomiting Integumentary/Breast Denies: rash Allergic/Immunologic Denies: [facility] Medical History (Updated 09/24/23 @ 22:20 by PERRY Wilson) Sleep disorder ?G47.9 - Sleep disorder, unspecified (ICD-10) Hypothyroidism ?E03.9 - Hypothyroidism, unspecified (ICD-10) Seizures ?R56.9 - Unspecified convulsions (ICD-10) Autism ?F84.0 - Autistic disorder (ICD-10) Anxiety ?F41.9 - Anxiety disorder, unspecified (ICD-10) Social History Smoking status: Never smoker Exam Narrative Exam Narrative: Gen.: Awake, alert, in no distress; Developmentally delayed, does not participate in the history or cooperate with physical Head: Normocephalic, atraumatic ENT: Moist mucous membranes, No evidence of facial or dental injury Respiratory: No respiratory distress Extremities: Mild swelling and redness noted to the right posterior elbow over the olecranon with a 1 cm laceration noted over the posterior elbow. Patient does not actively flex or extend at the elbow however she uses the right arm to hold her iPad. She allows full passive range of motion at the right arm. No obvious deformity. Psych: Normal mood and affect Neuro: No focal neuro deficit Skin: Warm, dry, intact Constitutional Vital Signs, click to edit/add: Last Vital Signs Temp 97.5 F L 09/24/23 20:43 Pulse 77 09/24/23 20:43 Resp 18 09/24/23 20:43 BP 104/66 09/24/23 20:43 Pulse Ox 98 09/24/23 20:43 O2 Del Method Room Air 09/24/23 20:43 Course Vital Signs Vital signs: Vital Signs Temperature 97.5 F L 09/24/23 20:43 Pulse Rate 77 09/24/23 20:43 Respiratory Rate 18 09/24/23 20:43 Blood Pressure 104/66 09/24/23 20:43 Pulse Oximetry 98 09/24/23 20:43 Oxygen Delivery Method Room Air 09/24/23 20:43 Temperature 97.5 F L 09/24/23 20:43 Pulse Rate 77 09/24/23 20:43 Respiratory Rate 18 09/24/23 20:43 Blood Pressure 104/66 09/24/23 20:43 Pulse Oximetry 98 09/24/23 20:43 Oxygen Delivery Method Room Air 09/24/23 20:43 Medical Decision Making MDM Narrative Medical decision making narrative: X-rays obtained, radiologist reviewed with no evidence of acute bony abnormality. The laceration is over 24 hours old, there are no large open gapped wounds. The 1 cm laceration was cleansed and dressed with bacitracin and a dressing. Rah wrap placed for comfort. Patient is neurovascularly intact. Discussed tetanus update with the patient's mother at bedside, she does not want the patient to have a tetanus update tonight and would like to just take her home, she will talk to [facility] tomorrow to see if the patient needs a tetanus update and will have that done tomorrow if needed. Return to the ER if symptoms change or worsen. Medical Records Medical records reviewed: Yes I reviewed the patient's medical records Imaging Data XR elbow: Attestation: I have reviewed the pertinent imaging results. Radiologist's impression: ITS Impressions Elbow X-Ray 09/24/23 20:54 IMPRESSION: No acute osseous abnormality. Electronically authenticated by: LUL MERCER Date: 09/24/2023 22:16 Discharge Plan Discharge Stand Alone Forms: Portal Instructions Chief Complaint: Extremity Injury, Upper Clinical Impression: Contusion of right elbow, Laceration of right elbow Patient Disposition: Home, Self-Care Time of Disposition Decision: 22:20 Condition: Good Prescriptions / Home Meds: New cephalexin 500 mg capsule 500 mg PO Q8H 10 Days Qty: 30 0RF No Action lamotrigine 200 mg tablet famotidine 40 mg tablet 40 mg PO DAILY melatonin 3 mg tablet 3 mg PO .hs clonidine HCl 0.2 mg tablet 0.2 mg PO QID buspirone 30 mg tablet 30 mg PO TID levothyroxine [Synthroid] 150 mcg tablet See Rx Instructions .ROUTE .COMPLEX Rx Instructions: 125 mcg PO daily ammonium lactate 12 % cream 1 applic TOPICAL BID polyethylene glycol 3350 17 gram/dose powder 17 g PO DAILY guanfacine 2 mg tablet 2 mg PO BID divalproex 125 mg capsule, delayed rel sprinkle 125 mg PO TID risperidone 1 mg tablet 3 mg PO BID lamotrigine 100 mg tablet 150 mg PO AC loratadine 10 mg tablet 10 mg PO AC Nortrel (28) 1-35 mg-mcg tablet 1 tab PO DAILY acetaminophen 500 mg tablet 1,000 mg PO .q4hr PRN (Reason: pain) sulfamethoxazole-trimethoprim [Bactrim DS] 800-160 mg tablet 1 tab PO Q12H 7 Days Qty: 14 0RF Print Language: Icelandic Instructions: Contusion in Adults (ED), Laceration Without Closure (ED) Referrals: ADRIEL TILLEY DO [Primary Care Provider] - 1 week
[2023-09-24] MEDS: BACITRACIN 0.9 GM PACKET 1 PACKET TOPICAL (21:28)
[2023-09-24] MEDS: CEPHALEXIN 500 MG CAPSULE PO (22:28)
[2023-09-24 22:49] VITALS: BP 100/65; PULSE 70; O2SAT 98
== END 2023-09-24 22:49 | disposition home or self-care (01) ==
PROVIDERS: Emergency Provider Emergency Medicine; PCP Family Medicine
DX: S50.01XA Contusion of right elbow, initial encounter (principal); S51.011A Laceration without foreign body of right elbow, initial encounter; W19.XXXA Unspecified fall, initial encounter; F84.0 Autistic disorder; R62.50 Unspecified lack of expected normal physiological development in childhood
CPT/HCPCS: 73080; 99283

== ENCOUNTER 2023-11-12 06:31 | Outpatient (OUT) | payer MEDICARE, MEDICAID, SELFPAY ==
--- OUTSIDE RECORDS SUMMARY | 2023-11-12 06:34 | XMS_ITS | CCD ---
Author Organization [facility] Care Team Providers Care Oil Field Operator Name Role Phone PHYSICIAN, DEFAULT Unavailable [...] Consulting Unavailable MISC, DR HERNANDEZ Consulting Unavailable HILLEDSON Attending Unavailable HILL, EDSON Attending Unavailable Allergies Allergy Classification Reported Allergen(s) Allergy Type Date of Onset Reaction(s) Facility (3 sources) Ethosuximide; Translations: [ETHOSUXIMIDE] Drug Allergy 09-15-2014 [facility] (1 source) Allopurinol Drug Allergy 07-16-2013 [facility] (1 source) Ethosuximide Drug Allergy 07-16-2013 [facility] Medications Current Medications Medication Drug [...] (2 sources) Corticosteroid Fluticasone Propionate (FLONASE NASAL) [place] into each nostril. 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; Translations: [OTH SKILLED NURSING CURRENT DRUG THERAPY] Onset: 04-03-2022 Episodic Superficial injury; contusion (1 source) Contusion of other part of head, initial encounter; Translations: [CONTUS OTH PRT HEAD INITIAL ENCNTR] Onset: 07-23-2022 Episodic Thyroid disorders (13 sources) Hypothyroidism, unspecified; Translations: [Autoimmune thyroiditis] Onset: 06-27-2022 Chronic Results Test Name Value Interpretation Reference Range Facility FREE T4on 08-29-2022 Free T4 [Mass/Vol] 1.76 ng/dL Critically high 0.76-1.46 [facility] Comment on above: Performed By: #### F T4 #### [facility] [address], [place] [address] Dr. Volodymyr Paez TSHon 08-29-2022 TSH Qn m[IU]/L Critically low 0.358-3.740 [facility] Comment on above: Performed By: #### T SH #### [facility] [address] [place] [address] Dr. Volodymyr Paez CULTURE URINEon 08-24-2022 CULTURE [...] F Tetracycline >=16 R F Normal [facility] Comment on above: Performed By: #### T SH, CMP #### [facility] [address] [place] [address] Dr. Volodymyr Paez UA (CLEAN/CATCH) ECONOMIC SPECIALIST/MICRO I F IND.on 08-21-2022 Bilirubin Ql (U) Negative Normal NEGATIVE [facility] Comment on above: Performed By: #### U ACSSHAHEEN ICRO #### [facility] [address] [place] [address] Dr. Volodymyr Paez Clarity (U) CLEAR Normal CLEAR [facility] Comment on above: Performed By: #### U ACSSHAHEEN ICRO #### [facility] [address] [place] [address] Dr. Volodymyr Paez Color (U) LT. YELLOW Normal YELLOW [facility] Comment on above: Performed By: #### U ACSSHAHEEN UMICRO #### [facility] [address] [place] [address] Dr. Volodymyr Paez Glucose Ql (U) Negative Normal NEGATIVE [facility] Comment on above: Performed By: #### U ACSIND UMICRO #### [facility] [address] [place] [address] Dr. Volodymyr Paez Hemoglobin Ql (U) Negative Normal NEGATIVE [facility] Comment on above: Performed By: #### U ACSIND, UMICRO #### [facility] [address] [place] [address] Dr. Volodymyr Paez Ketones Ql (U) Negative Normal NEGATIVE [facility] Comment on above: Performed By: #### U ACSIND, UMICRO #### [facility] [address] [place] [address] Dr. Volodymyr Paez LEUKOCYTES SMALL Abnormal NEGATIVE [facility] Comment on above: Performed By: #### U ACSIND, UMICRO #### [facility] [address] [place] [address] Dr. Volodymyr Paez Nitrite Ql (U) Negative Normal NEGATIVE [facility] Comment on above: Performed By: #### U ACSSHAHEEN, UMICRO #### [facility] [address] [place] [address] Dr. Volodymyr Paez pH (U) 7.0 [pH] Normal 5-9 [facility] Comment on above: Performed By: #### U ACSSHAHEEN, UMICRO #### [facility] [address] [place] [address] Dr. Volodymyr Paez SPEC GRAVITY 1.020 Normal 1.005-<=1.025 [facility] Comment on above: Performed By: #### U ACSSHAHEEN, UMICRO #### [facility] [address] [place] [address] Dr. Volodymyr Paez UA PROTEIN Negative Normal NEGATIVE/ TRACE [facility] Comment on above: Performed By: #### U ACSSHAHEEN, UMICRO #### [facility] [address] [place] [address] Dr. Volodymyr Paez UR MICRO IND INDICATED Normal [facility] Comment on above: Performed By: #### U ACSSHAHEEN, UMICRO #### [facility] [address] [place] [address] Dr. Volodymyr Paez Urobilinogen Qn (U) 0.2 {Leta'U}/dL Normal 0.2 - 1. 0 [facility] Comment on above: Performed By: #### U ACSSHAHEEN, UMICRO #### [facility] [address] [place] [address] Dr. Volodymyr Paez URINE MICROSCOPIC ONLYon BACTERIA SMALL Abnormal NONE SEEN [facility] Comment on above: Performed By: #### U ACSIND, UMICRO #### [facility] [address] [place] [address] Dr. Volodymyr Paez Bacteria identified Cx Nom (U) INDICATED Normal [facility] Comment on above: Performed By: #### U ACSSHAHEEN, UMICRO #### [facility] [address] [place] [address] Dr. Volodymyr Paez CAST NONE SEEN Normal NONE SEEN [facility] Comment on above: Performed By: #### U ACSSHAHEEN, UMICRO #### [facility] [address] [place] [address] Dr. Volodymyr Paez Crystals LM Nom (Urine sed) NONE SEEN Normal NONE SEEN [facility] Comment on above: Performed By: #### U ACSSHAHEEN, ICRO #### [facility] [address] [place] [address] Dr. Volodymyr Paez Epithelial cells LM Ql (Urine sed) MODERATE Abnormal NONE SEEN /RARE [facility] Comment on above: Performed By: #### U ACSSHAHEEN, ICRO #### [facility] [address] [place] [address] Dr. Volodymyr Paez MUCOUS TRACE Abnormal NONE SEEN [facility] Comment on above: Performed By: #### U ACSSHAHEEN ICRO #### [facility] [address] [place] [address] Dr. Volodymyr Paez RBC 2-5 Abnormal 0-2 [facility] Comment on above: Performed By: #### U ACSSHAHEEN ICRO #### [facility] [address] [place] [address] Dr. Volodymyr Paez WBC 10-20 Abnormal NONE SEEN [facility] Comment on above: Performed By: #### U ACSSHAHEEN, ICRO #### [facility] [address] [place] [address] Dr. Volodymyr Paez LAMOTRIGINEon 08-13-2022 Lamotrigine, Serum 11.2 ug/mL Normal 2.0-20.0 [facility] Comment on above: Result Comment: Dete ction Limit = 1.0 Performed By: #### T SH, CMP #### [facility] [address] [place] [address] Dr. Volodymyr Paez CBC AUTO DIFFon 08-09-2022 BASO # 0.0 103/ul Normal 0.0-0.1 [facility] Comment on above: Performed By: #### C BC #### [facility] [address] [place] [address] Dr. Volodymyr Paez Basophils/100 WBC (Bld) 0.4 % Normal 0.2-2.0 [facility] Comment on above: Performed By: #### C BC #### [facility] [address] [place] [address] Dr. Volodymyr Paez EO # 0.4 103/ul Normal 0.0-0.7 [facility] Comment on above: Performed By: #### C BC #### [facility] [address] [place] [address] Dr. Volodymyr Paez Eosinophils/100 WBC (Bld) 4.3 % Normal 0.9-7.0 [facility] Comment on above: Performed By: #### C BC #### [facility] [address] [place] [address] Dr. Volodymyr Paez Erythrocyte distribution width (RBC) [Ratio] 13.2 % Normal 11.0-15.0 [facility] Comment on above: Performed By: #### C BC #### [facility] [address] [place] [address] Dr. Volodymyr Paez Hematocrit (Bld) [Volume fraction] 40.2 % Normal 36.0-48.0 [facility] Comment on above: Performed By: #### C BC #### [facility] [address] [place] [address] Dr. Volodymyr Paez Hemoglobin (Bld) [Mass/Vol] 13.8 g/dL Normal 12.0-16.0 [facility] Comment on above: Performed By: #### C BC #### [facility] [address] [place] [address] Dr. Volodymyr Paez IG # 0.02 10e3/ul Normal 0.00-0.03 [facility] Comment on above: Performed By: #### C BC #### [facility] [address] [place] [address] [address] Volodymyr Paez IG % 0.2 % Normal 0.0-0.5 [facility] Comment on above: Performed By: #### C BC #### [facility] [address] [place] [address] [address] Volodymyr Paez LYMPH # 4.3 103/ul Critically high 1.2-3.8 [facility] Comment on above: Performed By: #### C BC #### [facility] [address] [place] [address] Dr. Volodymyr Paez Lymphocytes/100 WBC (Bld) 51.8 % Normal 20.5-60.0 [facility] Comment on above: Performed By: #### C BC #### [facility] [address] [place] [address] Dr. Volodymyr Paez MANUAL DIFF REQ NO Normal [facility] Comment on above: Performed By: #### C BC #### [facility] [address] [place] [address] Dr. Volodymyr Paez MCH (RBC) [Entitic mass] 31.0 pg Normal 26.7-34.0 [facility] Comment on above: Performed By: #### C BC #### [facility] [address] [place] [address] Dr. Volodymyr Paez MCHC (RBC) [Mass/Vol] 34.3 g/dL Normal 29.9-35.2 [facility] Comment on above: Performed By: #### C BC #### [facility] [address] [place] [address] Dr. Volodymyr Paez MCV (RBC) [Entitic vol] 90.3 fL Normal 81.0-99.0 [facility] Comment on above: Performed By: #### C BC #### [facility] [address] [place] [address] Dr. Volodymyr Paez MONO # 0.9 103/ul Critically high 0.3-0.8 [facility] Comment on above: Performed By: #### C BC #### [facility] [address] [place] [address] Dr. Volodymyr Paez Monocytes/100 WBC (Bld) 10.4 % Normal 1.7-12.0 [facility] Comment on above: Performed By: #### C BC #### [facility] [address] [place] [address] Dr. Volodymyr Paez NEUT # 2.7 103/ul Normal 1.4-6.5 [facility] Comment on above: Performed By: #### C BC #### [facility] [address] [place] [address] Dr. Volodymyr Paez Neutrophils/100 WBC (Bld) 32.9 % Critically low 43.0-75.0 [facility] Comment on above: Performed By: #### C BC #### [facility] [address] [place] [address] Dr. Volodymyr Paez Platelet mean volume (Bld) [Entitic vol] 10.3 fL Normal 9.5-13.5 [facility] Comment on above: Performed By: #### C BC #### [facility] [address] [place] [address] Dr. Volodymyr Paez PLT 231 103/ul Normal 150-450 [facility] Comment on above: Performed By: #### C BC #### [facility] [address] [place] [address] Dr. oVlodymyr Paez RBC 4.45 106/ul Normal 4.20-5.40 [facility] Comment on above: Performed By: #### C BC #### [facility] [address] [place] [address] Dr. Volodymyr Paez WBC 8.2 103/ul Normal 4.0-11.0 [facility] Comment on above: Performed By: #### C BC #### [facility] [address] [place] [address] Dr. Volodymyr Paez DEPAKENE/ VALPROIC ACIDon DEPAKENE 80.3 ug/ml Normal 50.0-100.0 [facility] Comment on above: Performed By: #### V ALP #### [facility] [address] [place] [address] Dr. Volodymyr Paez US THYROIDon 07-10-2022 US [...] 6 mm. No follow-up required TI-RADS: The [employer] TI-RADS committee's white paper recommendations for thyroid lesions classified as TR4 (moderately suspicious) are listed below: > 1.0 cm. Follow-up ultrasound in 1, 2, 3, and 5 years. > 1.5 cm. FNA. J. Am Chidi Radiol 2017;14:[id number]. Electronically authenticated by: MATILDE WATERMAN Date: 2022-07-10 13:01 Normal [facility] LAMOTRIGINEon 06-29-2022 Lamotrigine, Serum 14.2 ug/mL Normal 2.0-20.0 [facility] Comment on above: Result Comment: Dete ction Limit = 1.0 Performed By: #### T AKIKO, CMP #### [facility] [address] [place] [address] Dr. Volodymyr Paez CBC AUTO DIFFon 06-27-2022 BASO # 0.1 103/ul Normal 0.0-0.1 [facility] Comment on above: Performed By: #### T AKIKO, CMP #### [facility] [address] [address] [address] Volodymyr Paez Basophils/100 WBC (Bld) 0.7 % Normal 0.2-2.0 [facility] Comment on above: Performed By: #### T AKIKO, CMP #### [facility] [address] [place] [address] Dr. Volodymyr Paez EO # 0.4 103/ul Normal 0.0-0.7 [facility] Comment on above: Performed By: #### T SH, CMP #### [facility] [address] [place] [address] Dr. Volodymyr Paez Eosinophils/100 WBC (Bld) 5.1 % Normal 0.9-7.0 [facility] Comment on above: Performed By: #### T SH, CMP #### [facility] [address] [place] [address] Dr. Volodymyr Paez Erythrocyte distribution width (RBC) [Ratio] 13.1 % Normal 11.0-15.0 [facility] Comment on above: Performed By: #### T SH, CMP #### [facility] [address] [place] [address] Dr. Volodymyr Paez Hematocrit (Bld) [Volume fraction] 39.7 % Normal 36.0-48.0 [facility] Comment on above: Performed By: #### T SH, CMP #### [facility] [address] [place] [address] Dr. Volodymyr Paez Hemoglobin (Bld) [Mass/Vol] 13.3 g/dL Normal 12.0-16.0 [facility] Comment on above: Performed By: #### T SH, CMP #### [facility] [address] [place] [address] Dr. Volodymyr Paez IG # 0.02 10e3/ul Normal 0.00-0.03 [facility] Comment on above: Performed By: #### T SH, CMP #### [facility] [address] [place] [address] Dr. Volodymyr Paez IG % 0.3 % Normal 0.0-0.5 [facility] Comment on above: Performed By: #### T SH, CMP #### [facility] [address] [place] [address] Dr. Volodymyr Paez LYMPH # 3.6 103/ul Normal 1.2-3.8 [facility] Comment on above: Performed By: #### T SH, CMP #### [facility] [address] [place] [address] Dr. Volodymyr Paez Lymphocytes/100 WBC (Bld) 47.4 % Normal 20.5-60.0 [facility] Comment on above: Performed By: #### T SH, CMP #### [facility] [address] [place] [address] Dr. Volodymyr Paez MANUAL DIFF REQ NO Normal [facility] Comment on above: Performed By: #### T SH, CMP #### [facility] [address] [place] [address] Dr. Volodymyr Paez MCH (RBC) [Entitic mass] 30.3 pg Normal 26.7-34.0 [facility] Comment on above: Performed By: #### T SH, CMP #### [facility] [address] [place] [address] Dr. Volodymyr Paez MCHC (RBC) [Mass/Vol] 33.5 g/dL Normal 29.9-35.2 [facility] Comment on above: Performed By: #### T SH, CMP #### [facility] [address] [place] [address] Dr. Volodymyr Paez MCV (RBC) [Entitic vol] 90.4 fL Normal 81.0-99.0 [facility] Comment on above: Performed By: #### T SH, CMP #### [facility] [address] [place] [address] Dr. Volodymyr Paez MONO # 0.9 103/ul Critically high 0.3-0.8 [facility] Comment on above: Performed By: #### T SH, CMP #### [facility] [address] [place] [address] Dr. Volodymyr Paez Monocytes/100 WBC (Bld) 11.3 % Normal 1.7-12.0 [facility] Comment on above: Performed By: #### T SH, CMP #### [facility] [address] [place] [address] Dr. Volodymyr Paez NEUT # 2.7 103/ul Normal 1.4-6.5 [facility] Comment on above: Performed By: #### T SH, CMP #### [facility] [address] [place] [address] Dr. Volodymyr Paez Neutrophils/100 WBC (Bld) 35.2 % Critically low 43.0-75.0 [facility] Comment on above: Performed By: #### T SH, CMP #### [facility] [address] [place] [address] Dr. Volodymyr Paez Platelet mean volume (Bld) [Entitic vol] 11.4 fL Normal 9.5-13.5 [facility] Comment on above: Performed By: #### T SH, CMP #### [facility] [address] [place] [address] Dr. Volodymyr Paez PLT 96 103/ul Critically low 150-450 [facility] Comment on above: Result Comment: slid e made; no plt clumps seen Performed By: #### T SH, CMP #### [facility] [address] [place] [address] Dr. Volodymyr Paez RBC 4.39 106/ul Normal 4.20-5.40 [facility] Comment on above: Performed By: #### T SH, CMP #### [facility] [address] [place] [address] Dr. Volodymyr Paez WBC 7.6 103/ul Normal 4.0-11.0 [facility] Comment on above: Performed By: #### T SH, CMP #### [facility] [address] [place] [address] Dr. Volodymyr Paez FREE T4on 06-27-2022 Free T4 [Mass/Vol] 1.45 ng/dL Normal 0.76-1.46 [facility] Comment on above: Performed By: #### F T4 #### [facility] [address] [place] [address] Dr. Volodymyr Paez PROF 14(COMP METB)on 023 Albumin [Mass/Vol] 3.2 g/dL Critically low 3.4-5.0 [facility] Comment on above: Performed By: #### T SH, CMP #### [facility] [address] [place] [address] Dr. Volodymyr Paez Albumin/Globulin [Mass ratio] 0.7 {ratio} Normal [facility] Comment on above: Performed By: #### T AKIKO, CMP #### [facility] [address] [place] [address] Dr. Volodymyr Paez ALP [Catalytic activity/Vol] 65 U/L Normal 46-116 [facility] Comment on above: Performed By: #### T AKIKO, CMP #### [facility] [address] [address] [address] Volodymyr Paez ALT [Catalytic activity/Vol] 20 U/L Normal 14-59 [facility] Comment on above: Performed By: #### T AKIKO, CMP #### [facility] [address] [place] [address] Dr. Volodymyr Paez Anion gap [Moles/Vol] 11.3 mmol/L Normal [facility] Comment on above: Performed By: #### T AKIKO, CMP #### [facility] [address] [place] [address] Dr. Volodymyr Paez AST [Catalytic activity/Vol] 25 U/L Normal 15-37 [facility] Comment on above: Performed By: #### T AKIKO, CMP #### [facility] [address] [place] [address] Dr. Volodymyr Paez Bilirubin [Mass/Vol] 0.3 mg/dL Normal 0.2-1.0 [facility] Comment on above: Performed By: #### T AKIKO, CMP #### [facility] [address] [place] [address] Dr. Volodymyr Paez Calcium [Mass/Vol] 9.5 mg/dL Normal 8.5-10.1 [facility] Comment on above: Performed By: #### T AKIKO, CMP #### [facility] [address] [place] [address] Dr. Volodymyr Paez Chloride [Moles/Vol] 100 mmol/L Normal 98-107 [facility] Comment on above: Performed By: #### T AKIKO, CMP #### [facility] [address] [place] [address] Dr. Volodymyr Paez CO2 [Moles/Vol] 30.1 mmol/L Normal 21.0-32.0 [facility] Comment on above: Performed By: #### T SH, CMP #### [facility] [address] [place] [address] Dr. Volodymyr Paez Creatinine [Mass/Vol] 0.92 mg/dL Normal 0.55-1.02 [facility] Comment on above: Performed By: #### T SH, CMP #### [facility] [address] [address] [address] Volodymyr Paez EGFR-AF SAMOAN >60 Normal >=60 [facility] Comment on above: Performed By: #### T SH, CMP #### [facility] [address] [place] [address] Dr. Volodymyr Paez EGFR-NON AF SAMOAN >60 Normal >=60 [facility] Comment on above: Performed By: #### T SH, CMP #### [facility] [address] [place] [address] Dr. Volodymyr Paez Globulin (S) [Mass/Vol] 4.4 g/dL Normal [facility] Comment on above: Performed By: #### T SH, CMP #### [facility] [address] [place] [address] Dr. Volodymyr Paez Glucose [Mass/Vol] 76 mg/dL Normal 74-106 [facility] Comment on above: Performed By: #### T SH, CMP #### [facility] [address] [place] [address] Dr. Volodymyr Paez Potassium [Moles/Vol] 4.4 mmol/L Normal 3.5-5.1 [facility] Comment on above: Performed By: #### T SH, CMP #### [facility] [address] [place] [address] Dr. Volodymyr Paez Protein [Mass/Vol] 7.6 g/dL Normal 6.4-8.2 [facility] Comment on above: Performed By: #### T SH, CMP #### [facility] [address] [place] [address] Dr. Volodymyr Paez Sodium [Moles/Vol] 137 mmol/L Normal 136-145 [facility] Comment on above: Performed By: #### T SH, CMP #### [facility] [address] [address] [address] Volodymyr Paez Urea nitrogen [Mass/Vol] 7.0 mg/dL Normal 7.0-18.0 [facility] Comment on above: Performed By: #### T SH, CMP #### [facility] [address] [address] [address] Volodymyr Paez Urea nitrogen/Creatinine [Mass ratio] 7.6 mg/mg Normal [facility] Comment on above: Performed By: #### T SH, CMP #### [facility] [address] [place] [address] Dr. Volodymyr Paez TSHon 06-27-2022 TSH 0.099 uIU/mL Critically low 0.358-3.740 [facility] Comment on above: Performed By: #### T SH, CMP #### [facility] [address] [place] [address] Dr. Volodymyr Paez Progress Noteson 05-01-2022 Quantitative Analyst Developer Authentication Interface Message Text Received message from Connie ([facility]) -- Bina from [place] calling to schedule an OR visit. -- I spoke to Cate today, informed her of the wait time -- we will call when there's an available opening for Ms. Esteves. Cate said that she will leave message for Bina and note it in charts. ----- Sunday, May 01, 2022 at 8:14:46 AM ----- ----- Provider: Parish Castellanos Specialist -- Clinic: [facility] ----- Normal [facility] [employer] Telephone Encounteron 2022 Quantitative Analyst Developer Authentication Interface Message Text Bina from [facility] calling in. She wanted to know where the pt was at on the OR wait list. E-mail sent to Connie E-mail sent 04/30/22 Normal [facility] [employer] DEPAKENE/ VALPROIC ACIDon DEPAKENE 72.4 ug/ml Normal 50.0-100.0 [facility] Comment on above: Performed By: #### T , [facility] #### [facility] [address] [address] [address] Volodymyr Paez Progress Noteson 03-13-2022 Quantitative Analyst Developer Authentication Interface Message Text ----- Sunday, March 13, 2022 at 11:58:40 AM ----- ----- Provider: Ashely Coreas DMD -- Clinic: [place] ----- OR EVALUATION Patient presents for evaluation [...] available. Legal Guardian: Toshia Esteves Phone #: [phone] NOTE: Patient had a hard time leaning her head back, but allowed me to look. Patient not indicating she is in any pain. #8 is very discolored - most likely will need RCT treatment. Gingiva very red and irritated. Caregiver did not know who patient's guardian was or contact information, looked it up in [place]. Next Visit: OR Normal [facility] US THYROIDon 10-25-2021 US THYROID EXAMINATION: [...] screening is still recommended. TR 4: The [employer] TI-RADS committee's white paper recommendations for thyroid lesions classified as TR4 (moderately suspicious) are listed below: > 1.0 cm. Follow-up ultrasound in 1, 2, 3, and 5 years. > 1.5 cm. FNA. J. Am Chidi Radiol 2017;14:587-595. Electronically authenticated by: KRIS MENDOZA Date: 2021-10-25 09:31 Normal [facility] FREE T4on 10-24-2021 Free T4 [Mass/Vol] 1.08 ng/dL Normal 0.76-1.46 [facility] Comment on above: Performed By: #### T SH, CMP #### [facility] [address] [address] [address] Volodymyr Paez TSHon 10-24-2021 TSH 12.719 uIU/mL Critically high 0.358-3.740 [facility] Comment on above: Performed By: #### T SH #### [facility] [address] [address] [address] Volodymyr Paez Encounters Encounter Date Encounter Type Care Provider Facility Start: 10-01-2023 End: 10-01-2023 ambulatory EDSON LOMBARDI Not Available Start: 08-06-2023 End: 08-06-2023 ambulatory EDSON LOMBARDI [...] Telephone encounter Martha dill DMD Work Phone: [facility] Comment on above: Dental Start: 04-03-2022 End: 04-04-[address] ADRIEL TILLEY Facility:[facility] Start: 03-13-2022 End: 03-18-2022 ambulatory UNKNOWN PROVIDER Facility:[facility] Start: 03-13-2022 End: 03-18-2022 Patient encounter procedure Martha Coreas DMD Work Phone: [facility] Start: 10-24-2021 End: 10-25-[address] DOCTOR JAVED Facility: Start: 11-07-2016 End: 11-08-2016 Ambulatory DEFAULT PHYSICIAN Facility:[facility] Plan of Treatment Date Care Activity Detail Author Start: 2043 Shingles (RZV) Vacci ne (1 of 2) Shingles (RZV) Vaccine (1 of 2) [facility] Start: 01-20-2022 Influenza vaccination Influenza Vacc ine (#1) [facility] Start: 07-19-2020 COVID-19 Vaccine (3 - Booster for Pfizer series) COVID-19 Vaccine (3 - Booster for Pfizer series) [facility] Start: 2014 Screening for malign ant neoplasm of cervix Pap Smear [facility] Start: 2011 Hepatitis C screening Hepatitis C An tibody [facility] Start: 2011 Tetanus + diphtheria + acellular pertussis vaccine (product) Tdap Booster [facility] Start: 01-02-2008 HIV screening HIV Test [facility] Payers Date Payer Category Payer Unknown 2013 Medicaid [id number] 2012 Medicare MEDICARE MEDICAR E PART A & B [id number] 2012-Present [address] [place] [address] Medicare [id number] 1993 Unknown [id number] 1993 Unknown [id number] 1993 Unknown [id number] 1959 Medicaid [id number] 1959 Medicare [id number] 1954 Unknown [id number] [id number] 1954 Unknown [id number] [id number] 1954 Unknown [id number] [id number] 1954 Unknown [id number] [id number] 1954 Unknown [id number] [id number] 1954 Unknown [id number] [id number] 1954 Unknown [id number] [id number] 1954 Unknown [id number] Social History Date Type Detail Facility Tobacco smoking stat [facility] Tobacco smoking consumption unknown [facility] Start: 1995 Sex Assigned At Not on file [facility] Note 04-30-2022 Telephone Encounter - Liliana Song - 04/30/2022 3:03 PM EST Note Date & Type Note Facility 04-30-2022 Miscellaneous Notes Formattin g of this note might be different from the original. Bina from [facility] calling in. She wanted to know where the pt was at on the OR wait list. E-mail sent to Connie E-mail sent 04/30/22 [facility] Tele[facility] encounter Note 04-30-2022 Telephone Encounter - Liliana Song - 04/30/2022 3:03 PM EST Note Date & Type Note Facility 04-30-2022 Telephone encounter Note Form atting of this note might be different from the original. Bina from [facility] calling in. She wanted to know where the pt was at on the OR wait list. E-mail sent to Connie E-mail sent 04/30/22 [facility] History of Present illness Narrative 03-13-2022 Martha Coreas DMD - 03/13/2022 10:06 AM EST Note Date & Type Note Facility 03-13-2022 History of Presen t illness Narrative ----- Sunday, March 13, 2022 at 11:58:40 AM ----- ----- Provider: [id number] Misael Coreas DMD -- Clinic: [place] ----- OR EVALUATION Patient presents for evaluation [...] available. Legal Guardian: Toshia Esteves Phone #: [phone] NOTE: Patient had a hard time leaning her head back, but allowed me to look. Patient not indicating she is in any pain. #8 is very discolored - most likely will need RCT treatment. Gingiva very red and irritated. Caregiver did not know who patient's guardian was or contact information, looked it up in [place]. Next Visit: OR [facility] Purpose Family History No Family History Records FoundNo Family History Records FoundNo Family History Records FoundNo Family History Records Found Advance Directives No Advanced Directives Records FoundNo Advanced Directives Records FoundNo Advanced Directives Records FoundNo Advanced Directives Records Found Additional Source Comments INFORMATION SOURCE (unrecogn ized section and content) DATE CREATED AUTHOR 10/16/2017 [facility] DATE CREATED AUTHOR AUTHOR'S ORGANIZ ATION 05/01/2022 [facility] DATE CREATED AUTHOR AUTHOR'S ORGANGRANT ATION 09/02/2022 [facility] DATE CREATED AUTHOR AUTHOR'S ORGANIZ ATION 10/01/2023 [facility] Reason for Visit (unrecogniz ed section and [...] BE BASED ON THE PRIMARY CLINICAL RECORDS. [facility] provides no warranty or guarantee of the accuracy or completeness of information in this document.
[2023-11-12 07:06] LABS: Basophils Absolute Auto 0.1 10^3/uL (0.0-0.1); Basophils Percent Auto 0.6 % (0.2-2.0); Eosinophils Absolute Auto 0.6 10^3/uL (0.0-0.7); Eosinophils Percent Auto 7.3 % (0.9-7.0); Hematocrit 40.3 % (36.0-48.0); Hemoglobin 13.8 g/dL (12.0-16.0); Immature Granulocytes Abs Auto 0.02 10^3/uL (0.00-0.03); Immature Granulocytes Pct Auto 0.3 % (0.0-0.5); Lymphocytes Absolute Auto 5.1 10^3/uL (1.2-3.8); Lymphocytes Percent Auto 64.7 % (20.5-60.0); Mean Corpuscular HGB Conc 34.2 g/dL (29.9-35.2); Mean Corpuscular Hemoglobin 33.6 pg (26.7-34.0); Mean Corpuscular Volume 98.1 fL (81.0-99.0); Mean Platelet Volume 10.3 fL (9.5-13.5); Monocytes Absolute Auto 0.7 10^3/uL (0.3-0.8); Neutrophils Absolute Auto 1.4 10^3/uL (1.4-6.5); Neutrophils Percent Auto 18.1 % (43.0-75.0); Platelet Count 105 10^3/uL (150-450); Red Blood Count 4.11 10^6/uL (4.20-5.40); Red Cell Distribution Width 12.6 % (11.0-15.0); White Blood Count 7.9 10^3/uL (4.0-11.0)
[2023-11-12 07:21] LABS: Free T4 0.67 ng/dL (0.76-1.46)
[2023-11-12 07:25] LABS: BUN Creatinine Ratio 11.3; Calcium 8.5 mg/dL (8.5-10.1); Carbon Dioxide 27.1 mmol/L (21.0-32.0); Chloride 99 mmol/L (98-107); Estimated GFR (African America >60 (>=60); Estimated GFR (Non-African Ame >60 (>=60); Glucose 98 mg/dL (74-106); Potassium 4.1 mmol/L (3.5-5.1); Sodium 135 mmol/L (136-145)
[2023-11-12 07:26] LABS: Alanine Aminotransferase 13 U/L (14-59); Albumin Globulin Ratio 0.7; Albumin Level 2.7 g/dL (3.4-5.0); Alkaline Phosphatase 46 U/L (46-116); Aspartate Amino Transferase 33 U/L (15-37); Bilirubin Total 0.2 mg/dL (0.2-1.0); Free T3 1.24 pg/mL (2.18-3.98); Globulin 4.1 g/dL; Thyroid Stimulating Hormone 17.944 uIU/mL (0.358-3.740); Total Protein 6.8 g/dL (6.4-8.2)
== END 2023-11-12 06:32 | disposition home or self-care (01) ==
LOC: LAB 06:31
PROVIDERS: PCP Family Medicine; Visit Provider Family Medicine
DX: E06.3 Autoimmune thyroiditis (principal); Z79.899 Other long term (current) drug therapy
CPT/HCPCS: 36415; 80053; 84439; 84443; 84481; 85025

== ENCOUNTER 2023-12-25 09:54 | Outpatient (OUT) | payer MEDICARE, MEDICAID, SELFPAY ==
--- NOTE | 2023-12-25 | US_ITS ---
[address] [address] Patient Name: PONCE ESTEVES MRN: [id number] date: 1995 Sex: F Assigned Patient Location: US Current Patient Location: Accession/Order Number: [id number] Exam Date: 12/25/2023 10:00 Report Date: 12/26/2023 06:26 At the request of: NON-STAFF PHYSICIAN Procedure: US thyroid EXAMINATION: US thyroid HISTORY: NONTOXIC MULTINODULAR GOITER COMPARISON: Ultrasound thyroid 07/10/2022 FINDINGS: RIGHT LOBE: Normal size and echotexture. Lobe size: 3.1 x 0.5 0.8 cm LEFT LOBE: Contains a 9 mm TR 4 nodule within superior pole and a 4 mm TR 4 nodule within inferior pole. Lobe size: 4.2 x 1.0 x 0.7 cm ISTHMUS: Normal size and echotexture. Thickness: 3 mm US/US thyroid IMPRESSION: 1. For slight technical differences in measurement, the left lobe TR 4 nodules are felt to be stable. No additional follow-up recommended at this time. TR4 (moderately suspicious): If > 1.0 cm, follow-up ultrasound in 1, 2, 3, and 5 years. If > 1.5 cm, fine needle aspiration (FNA). Electronically authenticated by: KRIS MENDOZA Date: 12/26/2023 06:26
--- OUTSIDE RECORDS SUMMARY | 2023-12-25 10:08 | XMS_ITS | CCD ---
Author Organization [facility] Care Team Providers Care Watch Inspector Name Role Phone PHYSICIAN, DEFAULT Unavailable Unavailable [...] sources) Ethosuximide; Translations: [ETHOSUXIMIDE] Drug Allergy 09-15-2014 [facility] (1 source) Allopurinol Drug Allergy 07-16-2013 [facility] (1 source) Ethosuximide Drug Allergy 07-16-2013 [facility] Medications Current Medications Medication [...] (2 sources) Corticosteroid Fluticasone Propionate (FLONASE NASAL) [place] into each nostril. 0 Active ibuprofen 600 [...] ORAL) Take by mouth. 0 Active sennosides, skilled nursing 15 mg oral tablet (2 sources) take [...] 07-21-2022 Episodic Other aftercare (5 sources) Other manager terminal (current) drug therapy; Translations: [OTH SCREWDOWN OPERATOR CURRENT DRUG THERAPY] Onset: 04-03-2022 Episodic Superficial injury; contusion (1 source) Contusion of other part of head, initial encounter; Translations: [CONTUS OTH PRT HEAD INITIAL ENCNTR] Onset: 07-23-2022 Episodic Thyroid disorders (13 sources) Hypothyroidism, unspecified; Translations: [Autoimmune thyroiditis] Onset: 06-27-2022 Chronic Results Test Name Value Interpretation Reference Range Facility FREE T4on 08-29-2022 Free T4 [Mass/Vol] 1.76 ng/dL Critically high 0.76-1.46 [facility] Comment on above: Performed By: #### F T4 #### [facility] [address], [place] [address] Dr. Volodymyr Paez TSHon 08-29-2022 TSH Qn m[IU]/L Critically low 0.358-3.740 [facility] Comment on above: Performed By: #### T SH #### [facility] [address] [place] [address] Dr. Volodymyr Paez CULTURE URINEon 08-24-2022 CULTURE [...] >=16 R F Normal [facility] Comment on above: Performed By: #### T SH, CMP #### [facility] [address] [place] [address] Dr. Volodymyr Paez UA (CLEAN/CATCH) ENGINEERING PROJECT MANAGER/MICRO I F IND.on 08-21-2022 Bilirubin Ql (U) Negative Normal NEGATIVE [facility] Comment on above: Performed By: #### U ACSSHAHEEN ICRO #### [facility] [address] [place] [address] Dr. Volodymyr Paez Clarity (U) CLEAR Normal CLEAR [facility] Comment on above: Performed By: #### U ACSSHAHEEN ICRO #### [facility] [address] [place] [address] Dr. Volodymyr Paez Color (U) LT. YELLOW Normal YELLOW [facility] Comment on above: Performed By: #### U ACSSHAHEEN UMICRO #### [facility] [address] [place] [address] Dr. Volodymyr Paez Glucose Ql (U) Negative Normal NEGATIVE [facility] Comment on above: Performed By: #### U ACSIND UMICRO #### [facility] [address] [place] [address] Dr. Volodymyr Paez Hemoglobin Ql (U) Negative Normal NEGATIVE [facility] Comment on above: Performed By: #### U ACSIND, UMICRO #### [facility] [address] [place] [address] Dr. Volodymyr Paez Ketones Ql (U) Negative Normal NEGATIVE [facility] Comment on above: Performed By: #### U ACSIND, UMICRO #### [facility] [address] [place] [address] Dr. Volodymyr Paez LEUKOCYTES SMALL Abnormal NEGATIVE [facility] Comment on above: Performed By: #### U ACSIND, UMICRO #### [facility] [address] [place] [address] Dr. Volodymyr Paez Nitrite Ql (U) Negative Normal NEGATIVE [facility] Comment on above: Performed By: #### U ACSSHAHEEN, UMICRO #### [facility] [address] [place] [address] Dr. Volodymyr Paez pH (U) 7.0 [pH] Normal 5-9 [facility] Comment on above: Performed By: #### U ACSSHAHEEN, UMICRO #### [facility] [address] [place] [address] Dr. Volodymyr Paez SPEC GRAVITY 1.020 Normal 1.005-<=1.025 [facility] Comment on above: Performed By: #### U ACSSHAHEEN, UMICRO #### [facility] [address] [place] [address] Dr. Volodymyr Paez UA PROTEIN Negative Normal NEGATIVE/ TRACE [facility] Comment on above: Performed By: #### U ACSSHAHEEN, UMICRO #### [facility] [address] [place] [address] Dr. Volodymyr Paez UR MICRO IND INDICATED Normal [facility] Comment on above: Performed By: #### U ACSSHAHEEN, UMICRO #### [facility] [address] [place] [address] Dr. Volodymyr Paez Urobilinogen Qn (U) 0.2 {Leta'U}/dL Normal 0.2 - 1. 0 [facility] Comment on above: Performed By: #### U ACSSHAHEEN, UMICRO #### [facility] [address] [place] [address] Dr. Volodymyr Paez URINE MICROSCOPIC ONLYon BACTERIA SMALL Abnormal NONE SEEN [facility] Comment on above: Performed By: #### U ACSIND, UMICRO #### [facility] [address] [place] [address] Dr. Volodymyr Paez Bacteria identified Cx Nom (U) INDICATED Normal [facility] Comment on above: Performed By: #### U ACSSHAHEEN, UMICRO #### [facility] [address] [place] [address] Dr. Volodymyr Paez CAST NONE SEEN Normal NONE SEEN [facility] Comment on above: Performed By: #### U ACSSHAHEEN, UMICRO #### [facility] [address] [place] [address] Dr. Volodymyr Paez Crystals LM Nom (Urine sed) NONE SEEN Normal NONE SEEN [facility] Comment on above: Performed By: #### U ACSSHAHEEN, ICRO #### [facility] [address] [place] [address] Dr. Volodymyr Paez Epithelial cells LM Ql (Urine sed) MODERATE Abnormal NONE SEEN /RARE [facility] Comment on above: Performed By: #### U ACSSHAHEEN, ICRO #### [facility] [address] [place] [address] Dr. Volodymyr Paez MUCOUS TRACE Abnormal NONE SEEN [facility] Comment on above: Performed By: #### U ACSSHAHEEN ICRO #### [facility] [address] [place] [address] Dr. Volodymyr Paez RBC 2-5 Abnormal 0-2 [facility] Comment on above: Performed By: #### U ACSSHAHEEN ICRO #### [facility] [address] [place] [address] Dr. Volodymyr Paez WBC 10-20 Abnormal NONE SEEN [facility] Comment on above: Performed By: #### U ACSSHAHEEN, ICRO #### [facility] [address] [place] [address] Dr. Volodymyr Paez LAMOTRIGINEon 08-13-2022 Lamotrigine, Serum 11.2 ug/mL Normal 2.0-20.0 [facility] Comment on above: Result Comment: Dete ction Limit = 1.0 Performed By: #### T SH, CMP #### [facility] [address] [place] [address] Dr. Volodymyr Paez CBC AUTO DIFFon 08-09-2022 BASO # 0.0 103/ul Normal 0.0-0.1 [facility] Comment on above: Performed By: #### C BC #### [facility] [address] [place] [address] Dr. Volodymyr Paez Basophils/100 WBC (Bld) 0.4 % Normal 0.2-2.0 [facility] Comment on above: Performed By: #### C BC #### [facility] [address] [place] [address] Dr. Volodymyr Paez EO # 0.4 103/ul Normal 0.0-0.7 [facility] Comment on above: Performed By: #### C BC #### [facility] [address] [place] [address] Dr. Volodymyr Paez Eosinophils/100 WBC (Bld) 4.3 % Normal 0.9-7.0 [facility] Comment on above: Performed By: #### C BC #### [facility] [address] [place] [address] Dr. Volodymyr Paez Erythrocyte distribution width (RBC) [Ratio] 13.2 % Normal 11.0-15.0 [facility] Comment on above: Performed By: #### C BC #### [facility] [address] [place] [address] Dr. Volodymyr Paez Hematocrit (Bld) [Volume fraction] 40.2 % Normal 36.0-48.0 [facility] Comment on above: Performed By: #### C BC #### [facility] [address] [place] [address] Dr. Volodymyr Paez Hemoglobin (Bld) [Mass/Vol] 13.8 g/dL Normal 12.0-16.0 [facility] Comment on above: Performed By: #### C BC #### [facility] [address] [place] [address] Dr. Volodymyr Paez IG # 0.02 10e3/ul Normal 0.00-0.03 [facility] Comment on above: Performed By: #### C BC #### [facility] [address] [place] [address] [address] Volodymyr Paez IG % 0.2 % Normal 0.0-0.5 [facility] Comment on above: Performed By: #### C BC #### [facility] [address] [place] [address] [address] Volodymyr Paez LYMPH # 4.3 103/ul Critically high 1.2-3.8 [facility] Comment on above: Performed By: #### C BC #### [facility] [address] [place] [address] Dr. Volodymyr Paez Lymphocytes/100 WBC (Bld) 51.8 % Normal 20.5-60.0 [facility] Comment on above: Performed By: #### C BC #### [facility] [address] [place] [address] Dr. Volodymyr Paez MANUAL DIFF REQ NO Normal [facility] Comment on above: Performed By: #### C BC #### [facility] [address] [place] [address] Dr. Volodymyr Paez MCH (RBC) [Entitic mass] 31.0 pg Normal 26.7-34.0 [facility] Comment on above: Performed By: #### C BC #### [facility] [address] [place] [address] Dr. Volodymyr Paez MCHC (RBC) [Mass/Vol] 34.3 g/dL Normal 29.9-35.2 [facility] Comment on above: Performed By: #### C BC #### [facility] [address] [place] [address] Dr. Volodymyr Paez MCV (RBC) [Entitic vol] 90.3 fL Normal 81.0-99.0 [facility] Comment on above: Performed By: #### C BC #### [facility] [address] [place] [address] Dr. Volodymyr Paez MONO # 0.9 103/ul Critically high 0.3-0.8 [facility] Comment on above: Performed By: #### C BC #### [facility] [address] [place] [address] Dr. Volodymyr Paez Monocytes/100 WBC (Bld) 10.4 % Normal 1.7-12.0 [facility] Comment on above: Performed By: #### C BC #### [facility] [address] [place] [address] Dr. Volodymyr Paez NEUT # 2.7 103/ul Normal 1.4-6.5 [facility] Comment on above: Performed By: #### C BC #### [facility] [address] [place] [address] Dr. Volodymyr Paez Neutrophils/100 WBC (Bld) 32.9 % Critically low 43.0-75.0 [facility] Comment on above: Performed By: #### C BC #### [facility] [address] [place] [address] Dr. Volodymyr Paez Platelet mean volume (Bld) [Entitic vol] 10.3 fL Normal 9.5-13.5 [facility] Comment on above: Performed By: #### C BC #### [facility] [address] [place] [address] Dr. Volodymyr Paez PLT 231 103/ul Normal 150-450 [facility] Comment on above: Performed By: #### C BC #### [facility] [address] [place] [address] Dr. Volodymyr Paez RBC 4.45 106/ul Normal 4.20-5.40 [facility] Comment on above: Performed By: #### C BC #### [facility] [address] [place] [address] Dr. Volodymyr Paez WBC 8.2 103/ul Normal 4.0-11.0 [facility] Comment on above: Performed By: #### C BC #### [facility] [address] [place] [address] Dr. Volodymyr Paez DEPAKENE/ VALPROIC ACIDon DEPAKENE 80.3 ug/ml Normal 50.0-100.0 [facility] Comment on above: Performed By: #### V ALP #### [facility] [address] [place] [address] Dr. Volodymyr Paez US THYROIDon 07-10-2022 US [...] 6 mm. No follow-up required TI-RADS: The [employer] TI-RADS committee's white paper recommendations for thyroid lesions classified as TR4 (moderately suspicious) are listed below: > 1.0 cm. Follow-up ultrasound in 1, 2, 3, and 5 years. > 1.5 cm. FNA. J. Am Chidi Radiol 2017;14:[id number]. Electronically authenticated by: MATILDE WATERMAN Date: 2022-07-10 13:01 Normal [facility] LAMOTRIGINEon 06-29-2022 Lamotrigine, Serum 14.2 ug/mL Normal 2.0-20.0 [facility] Comment on above: Result Comment: Dete ction Limit = 1.0 Performed By: #### T AKIKO, CMP #### [facility] [address] [place] [address] Dr. Volodymyr Paez CBC AUTO DIFFon 06-27-2022 BASO # 0.1 103/ul Normal 0.0-0.1 [facility] Comment on above: Performed By: #### T AKIKO, CMP #### [facility] [address] [place] [address] [address] Volodymyr Paez Basophils/100 WBC (Bld) 0.7 % Normal 0.2-2.0 [facility] Comment on above: Performed By: #### T AKIKO, CMP #### [facility] [address] [place] [address] Dr. Volodymyr Paez EO # 0.4 103/ul Normal 0.0-0.7 [facility] Comment on above: Performed By: #### T SH, CMP #### [facility] [address] [place] [address] Dr. Volodymyr Paez Eosinophils/100 WBC (Bld) 5.1 % Normal 0.9-7.0 [facility] Comment on above: Performed By: #### T SH, CMP #### [facility] [address] [place] [address] Dr. Volodymyr Paez Erythrocyte distribution width (RBC) [Ratio] 13.1 % Normal 11.0-15.0 [facility] Comment on above: Performed By: #### T SH, CMP #### [facility] [address] [place] [address] Dr. Volodymyr Paez Hematocrit (Bld) [Volume fraction] 39.7 % Normal 36.0-48.0 [facility] Comment on above: Performed By: #### T SH, CMP #### [facility] [address] [place] [address] Dr. Volodymyr Paez Hemoglobin (Bld) [Mass/Vol] 13.3 g/dL Normal 12.0-16.0 [facility] Comment on above: Performed By: #### T SH, CMP #### [facility] [address] [place] [address] Dr. Volodymyr Paez IG # 0.02 10e3/ul Normal 0.00-0.03 [facility] Comment on above: Performed By: #### T SH, CMP #### [facility] [address] [place] [address] Dr. Volodymyr Paez IG % 0.3 % Normal 0.0-0.5 [facility] Comment on above: Performed By: #### T SH, CMP #### [facility] [address] [place] [address] Dr. Volodymyr Paez LYMPH # 3.6 103/ul Normal 1.2-3.8 [facility] Comment on above: Performed By: #### T SH, CMP #### [facility] [address] [place] [address] Dr. Volodymyr Paez Lymphocytes/100 WBC (Bld) 47.4 % Normal 20.5-60.0 [facility] Comment on above: Performed By: #### T SH, CMP #### [facility] [address] [place] [address] Dr. Volodymyr Paez MANUAL DIFF REQ NO Normal [facility] Comment on above: Performed By: #### T SH, CMP #### [facility] [address] [place] [address] Dr. Volodymyr Paez MCH (RBC) [Entitic mass] 30.3 pg Normal 26.7-34.0 [facility] Comment on above: Performed By: #### T SH, CMP #### [facility] [address] [place] [address] Dr. Volodymyr Paez MCHC (RBC) [Mass/Vol] 33.5 g/dL Normal 29.9-35.2 [facility] Comment on above: Performed By: #### T SH, CMP #### [facility] [address] [place] [address] Dr. Volodymyr Paez MCV (RBC) [Entitic vol] 90.4 fL Normal 81.0-99.0 [facility] Comment on above: Performed By: #### T SH, CMP #### [facility] [address] [place] [address] Dr. Volodymyr Paez MONO # 0.9 103/ul Critically high 0.3-0.8 [facility] Comment on above: Performed By: #### T SH, CMP #### [facility] [address] [place] [address] Dr. Volodymyr Paez Monocytes/100 WBC (Bld) 11.3 % Normal 1.7-12.0 [facility] Comment on above: Performed By: #### T SH, CMP #### [facility] [address] [place] [address] Dr. Volodymyr Paez NEUT # 2.7 103/ul Normal 1.4-6.5 [facility] Comment on above: Performed By: #### T SH, CMP #### [facility] [address] [place] [address] Dr. Volodymyr Paez Neutrophils/100 WBC (Bld) 35.2 % Critically low 43.0-75.0 [facility] Comment on above: Performed By: #### T SH, CMP #### [facility] [address] [place] [address] Dr. Volodymyr Paez Platelet mean volume (Bld) [Entitic vol] 11.4 fL Normal 9.5-13.5 [facility] Comment on above: Performed By: #### T SH, CMP #### [facility] [address] [place] [address] Dr. Volodymyr Paez PLT 96 103/ul Critically low 150-450 [facility] Comment on above: Result Comment: slid e made; no plt clumps seen Performed By: #### T SH, CMP #### [facility] [address] [place] [address] Dr. Volodymyr Paez RBC 4.39 106/ul Normal 4.20-5.40 [facility] Comment on above: Performed By: #### T SH, CMP #### [facility] [address] [place] [address] Dr. Volodymyr Paez WBC 7.6 103/ul Normal 4.0-11.0 [facility] Comment on above: Performed By: #### T SH, CMP #### [facility] [address] [place] [address] Dr. Volodymyr Paez FREE T4on 06-27-2022 Free T4 [Mass/Vol] 1.45 ng/dL Normal 0.76-1.46 [facility] Comment on above: Performed By: #### F T4 #### [facility] [address] [place] [address] Dr. Volodymyr Paez PROF 14(COMP METB)on 023 Albumin [Mass/Vol] 3.2 g/dL Critically low 3.4-5.0 [facility] Comment on above: Performed By: #### T SH, CMP #### [facility] [address] [place] [address] Dr. Volodymyr Paez Albumin/Globulin [Mass ratio] 0.7 {ratio} Normal [facility] Comment on above: Performed By: #### T AKIKO, CMP #### [facility] [address] [place] [address] Dr. Volodymyr Paez ALP [Catalytic activity/Vol] 65 U/L Normal 46-116 [facility] Comment on above: Performed By: #### T AKIKO, CMP #### [facility] [address] [place] [address] [address] Volodymyr Paez ALT [Catalytic activity/Vol] 20 U/L Normal 14-59 [facility] Comment on above: Performed By: #### T AKIKO, CMP #### [facility] [address] [place] [address] Dr. Volodymyr Paez Anion gap [Moles/Vol] 11.3 mmol/L Normal [facility] Comment on above: Performed By: #### T AKIKO, CMP #### [facility] [address] [place] [address] Dr. Volodymyr Paez AST [Catalytic activity/Vol] 25 U/L Normal 15-37 [facility] Comment on above: Performed By: #### T AKIKO, CMP #### [facility] [address] [place] [address] Dr. Volodymyr Paez Bilirubin [Mass/Vol] 0.3 mg/dL Normal 0.2-1.0 [facility] Comment on above: Performed By: #### T AKIKO, CMP #### [facility] [address] [place] [address] Dr. Volodymyr Paez Calcium [Mass/Vol] 9.5 mg/dL Normal 8.5-10.1 [facility] Comment on above: Performed By: #### T AKIKO, CMP #### [facility] [address] [place] [address] Dr. Volodymyr Paez Chloride [Moles/Vol] 100 mmol/L Normal 98-107 [facility] Comment on above: Performed By: #### T AKIKO, CMP #### [facility] [address] [place] [address] Dr. Volodymyr Paez CO2 [Moles/Vol] 30.1 mmol/L Normal 21.0-32.0 [facility] Comment on above: Performed By: #### T SH, CMP #### [facility] [address] [place] [address] Dr. Volodymyr Paez Creatinine [Mass/Vol] 0.92 mg/dL Normal 0.55-1.02 [facility] Comment on above: Performed By: #### T SH, CMP #### [facility] [address] [address] [address] Volodymyr Paez EGFR-AF [place] >60 Normal >=60 [facility] Comment on above: Performed By: #### T SH, CMP #### [facility] [address] [place] [address] Dr. Volodymyr Paez EGFR-NON AF [place] >60 Normal >=60 [facility] Comment on above: Performed By: #### T SH, CMP #### [facility] [address] [place] [address] Dr. Volodymyr Paez Globulin (S) [Mass/Vol] 4.4 g/dL Normal [facility] Comment on above: Performed By: #### T SH, CMP #### [facility] [address] [place] [address] Dr. Volodymyr Paez Glucose [Mass/Vol] 76 mg/dL Normal 74-106 [facility] Comment on above: Performed By: #### T SH, CMP #### [facility] [address] [place] [address] Dr. Volodymyr Paez Potassium [Moles/Vol] 4.4 mmol/L Normal 3.5-5.1 [facility] Comment on above: Performed By: #### T SH, CMP #### [facility] [address] [place] [address] Dr. Volodymyr Paez Protein [Mass/Vol] 7.6 g/dL Normal 6.4-8.2 [facility] Comment on above: Performed By: #### T SH, CMP #### [facility] [address] [place] [address] Dr. Volodymyr Paez Sodium [Moles/Vol] 137 mmol/L Normal 136-145 [facility] Comment on above: Performed By: #### T SH, CMP #### [facility] [address] [address] [address] Volodymyr Paez Urea nitrogen [Mass/Vol] 7.0 mg/dL Normal 7.0-18.0 [facility] Comment on above: Performed By: #### T SH, CMP #### [facility] [address] [address] [address] Volodymyr Paez Urea nitrogen/Creatinine [Mass ratio] 7.6 mg/mg Normal [facility] Comment on above: Performed By: #### T SH, CMP #### [facility] [address] [place] [address] Dr. Volodymyr Paez TSHon 06-27-2022 TSH 0.099 uIU/mL Critically low 0.358-3.740 [facility] Comment on above: Performed By: #### T SH, CMP #### [facility] [address] [place] [address] Dr. Volodymyr Paez Progress Noteson 05-01-2022 Medical Numerical Control Operator Authentication Interface Message Text Received message from Connie ([facility]) -- Bina from [facility] calling to schedule an OR visit. -- I spoke to Cate today, informed her of the wait time -- we will call when there's an available opening for Ms. Esteves. Cate said that she will leave message for Bina and note it in charts. ----- Sunday, May 01, 2022 at 8:14:46 AM ----- ----- Provider: Parish Castellanos Specialist -- Clinic: [facility] ----- Normal [facility] Telephone Encounteron 2022 Medical Numerical Control Operator Authentication Interface Message Text Bina from [facility] calling in. She wanted to know where the pt was at on the OR wait list. E-mail sent to Connie E-mail sent 04/30/22 Normal [facility] DEPAKENE/ VALPROIC ACIDon DEPAKENE 72.4 ug/ml Normal 50.0-100.0 [facility] Comment on above: Performed By: #### T , [facility] #### [facility] [address] [address] [address] Volodymyr Paez Progress Noteson 03-13-2022 Medical Numerical Control Operator Authentication Interface Message Text ----- Sunday, March 13, 2022 at 11:58:40 AM ----- ----- Provider: Ashely Coreas DMD -- Clinic: [facility] ----- OR EVALUATION Patient presents for evaluation [...] available. Legal Guardian: Toshia Esteves Phone #: [phone] NOTE: Patient had a hard time leaning her head back, but allowed me to look. Patient not indicating she is in any pain. #8 is very discolored - most likely will need RCT treatment. Gingiva very red and irritated. Caregiver did not know who patient's guardian was or contact information, looked it up in [facility]. Next Visit: OR Normal [facility] US THYROIDon 10-25-2021 US THYROID EXAMINATION: [...] screening is still recommended. TR 4: The [place] [employer] TI-RADS committee's white paper recommendations for thyroid lesions classified as TR4 (moderately suspicious) are listed below: > 1.0 cm. Follow-up ultrasound in 1, 2, 3, and 5 years. > 1.5 cm. FNA. J. Am Chidi Radiol 2017;14:587-595. Electronically authenticated by: KRIS MENDOZA Date: 2021-10-25 09:31 Normal [facility] FREE T4on 10-24-2021 Free T4 [Mass/Vol] 1.08 ng/dL Normal 0.76-1.46 [facility] Comment on above: Performed By: #### T SH, CMP #### [facility] [address] [address] [address] Volodymyr Paez TSHon 10-24-2021 TSH 12.719 uIU/mL Critically high 0.358-3.740 [facility] Comment on above: Performed By: #### T SH #### [facility] [address] [address] [address] Volodymyr Paez Encounters Encounter Date Encounter [...] Telephone encounter Martha dill DMD Work Phone: [facility] Comment on above: Dental Start: 04-03-2022 End: 04-04-[address] ADRIEL TILLEY Facility:[facility] Start: 03-13-2022 End: 03-18-2022 ambulatory UNKNOWN PROVIDER Facility:[facility] Start: 03-13-2022 End: 03-18-2022 Patient encounter procedure Martha Coreas DMD Work Phone: [facility] Start: 10-24-2021 End: 10-25-[address] DOCTOR JAVED Facility: Start: 11-07-2016 End: 11-08-2016 Ambulatory DEFAULT PHYSICIAN Facility:[facility] Plan of Treatment Date Care Activity Detail Author Start: 2043 Shingles (RZV) Vacci ne (1 of 2) Shingles (RZV) Vaccine (1 of 2) [facility] Start: 01-20-2022 Influenza vaccination Influenza Vacc ine (#1) [facility] Start: 07-19-2020 COVID-19 Vaccine (3 - Booster for Pfizer series) COVID-19 Vaccine (3 - Booster for Pfizer series) [facility] Start: 2014 Screening for malign ant neoplasm of cervix Pap Smear [facility] Start: 2011 Hepatitis C screening Hepatitis C An tibody [facility] Start: 2011 Tetanus + diphtheria + acellular pertussis vaccine (product) [facility]ap [facility] Start: 01-02-2008 HIV screening HIV Test [facility] Payers Date Payer Category Payer Unknown 2013 Medicaid [id number] 2012 Medicare MEDICARE MEDICAR E PART A & B [id number] 2012-Present [address] [place] [address] Medicare [id number] 1993 Unknown [id number] 1993 Unknown [id number] 1993 Unknown [id number] [id number] 1959 Medicaid [id number] 1959 Medicare [id number] 1954 Unknown [id number] [id number] 1954 Unknown [id number] [id number] 1954 Unknown [id number] [id number] 1954 Unknown [id number] [id number] 1954 Unknown [id number] [id number] 1954 Unknown [id number] [id number] 1954 Unknown [id number] [id number] 1954 Unknown [id number] Social History Date Type Detail Facility Tobacco smoking stat [facility] Tobacco smoking consumption unknown [facility] Start: 1993 Sex Assigned At Not on file [facility] Note 04-30-2022 Telephone Encounter - Liliana Song - 04/30/2022 3:03 PM EST Note Date & Type Note Facility 04-30-2022 Miscellaneous Notes Formattin g of this note might be different from the original. Bina from [facility] calling in. She wanted to know where the pt was at on the OR wait list. E-mail sent to Connie E-mail sent 04/30/22 [facility] Note 04-30-2022 Telephone Encounter - Liliana Song - 04/30/2022 3:03 PM EST Note Date & Type Note Facility 04-30-2022 Telephone encounter Note Form atting of this note might be different from the original. Bina from [facility] calling in. She wanted to know where the pt was at on the OR wait list. E-mail sent to Connie E-mail sent 04/30/22 [facility] History of Present illness Narrative 03-13-2022 Martha Coreas DMD - 03/13/2022 10:06 AM EST Note Date & Type Note Facility 03-13-2022 History of Presen t illness Narrative ----- Sunday, March 13, 2022 at 11:58:40 AM ----- ----- Provider: [id number] Misael Coreas DMD -- Clinic: [facility] ----- OR EVALUATION Patient presents for evaluation [...] available. Legal Guardian: Toshia Esteves Phone #: [phone] NOTE: Patient had a hard time leaning her head back, but allowed me to look. Patient not indicating she is in any pain. #8 is very discolored - most likely will need RCT treatment. Gingiva very red and irritated. Caregiver did not know who patient's guardian was or contact information, looked it up in [employer]. Next Visit: OR [facility] this [facility] Summary Purpose Family History No Family History Records FoundNo Family History Records FoundNo Family History Records FoundNo Family History Records Found Advance Directives No Advanced Directives Records FoundNo Advanced Directives Records FoundNo Advanced Directives Records FoundNo Advanced Directives Records Found Additional Source Comments INFORMATION SOURCE (unrecogn ized section and content) DATE CREATED AUTHOR 10/16/2017 [facility] DATE CREATED AUTHOR AUTHOR'S ORGANIZ ATION 05/01/2022 [facility] DATE CREATED AUTHOR AUTHOR'S ORGANGRANT ATION 09/02/2022 [facility] pital DATE CREATED AUTHOR AUTHOR'S ORGANIZ ATION 10/01/2023 [facility] Reason for Visit (unrecogniz ed section [...] BE BASED ON THE PRIMARY CLINICAL RECORDS. [employer] [facility]. provides no warranty or guarantee of the accuracy or completeness of information in this document.
== END 2023-12-25 09:55 | disposition home or self-care (01) ==
LOC: US 09:55
PROVIDERS: PCP Family Medicine
DX: E04.2 Nontoxic multinodular goiter (principal)
CPT/HCPCS: 76536

== ENCOUNTER 2024-01-01 06:40 | Outpatient (OUT) | payer MEDICARE, MEDICAID, SELFPAY ==
--- OUTSIDE RECORDS SUMMARY | 2024-01-01 06:42 | XMS_ITS | CCD ---
Author Organization [facility] Care Team Providers Care [employer] Teacher Name Role Phone PHYSICIAN, DEFAULT Unavailable Unavailable PHYSICIAN, DEFAULT Unavailable Unavailable PB BARTH Unavailable Unavailable Unavailable Primary Care Provider Unavailabl e TILLEY, DR ADRIEL Craft Admitting Unavailable TILLEY, DR ADRIEL Craft Attending Unavailable TILLEY, DR ADRIEL Craft Primary Care Unavailable TILLEY, DR ADRIEL Craft Consulting Unavailable MISC, DR HERNANDEZ Admitting Unavailable MISC, DR HERNANDEZ Attending Unavailable TILLEY, DR ADRIEL Craft Primary Care Unavailable MISC, DR HERNANDEZ Consulting Unavailable TILLEY, DR ADRIEL Craft Admitting Unavailable TILLEY, DR ADRIEL Craft Attending Unavailable TILLEY, DR DARIEL Craft Primary Care Unavailable TILLEY, DR ARDIEL Craft Consulting Unavailable MISC, DR HERNANDEZ Admitting [...] Consulting Unavailable MISC, DR HERNANDEZ Consulting Unavailable HILL, EDSON Attending Unavailable HILL, EDSON Attending Unavailable Unavailable Primary Care Provider Unavailabl e Allergies Allergy Classification Reported Allergen(s) Allergy Type Date of Onset Reaction(s) Facility (3 sources) Ethosuximide Drug Allergy 09-15-2014 Rash [facility] (1 source) Allopurinol Drug Allergy 07-16-2013 [facility] (1 source) Ethosuximide Drug Allergy 07-16-2013 [facility] Medications Current Medications Medication Drug Class(es) Dates Sig (Normalized) Sig (Original) chlorhexidine gluconate 1.2 mg/ml mouthwash (3 sources) Start: 09-15-2014 take 15 mL by mouth twice daily chlorhexidine (PERIDEX) 0.12 % oral solution Take 15 mL by mouth 2 times daily. 1 Bottle 0 09/15/2014 Active cloNIDine (3 sources) Central alpha-2 Adrenergic Agonist CLONIDINE HCL ORAL Take by mouth. Active CLONIDINE HCL OR AL Take by mouth. 0 Active docusate sodium 100 mg oral capsule (3 sources) take 1 capsule by mouth twice daily docusate sodium (COLACE) 100 MG capsule Take 100 mg by mouth 2 times daily. Active fluticasone (3 sources) Corticosteroid Fluticasone Prop ionate (FLONASE NASAL) [place] into each nostril. Active Fluticasone Prop ionate (FLONASE NASAL) [place] into each nostril. 0 Active ibuprofen 600 mg oral tablet (3 sources) Nonsteroidal Anti-inflammatory Drug Start: 09-15-2014 take 1 tablet by mouth every six hours as needed for pain ibuprofen (MOTRIN) 600 MG tablet Take 1 Tab by mouth every 6 hours as needed for Pain. 30 Tab 1 09/15/2014 Active lactobacillus acidophilus 16 mg oral capsule (3 sources) Lactobacillus (ACIDOPHILUS) CAPS Take by mouth. Active Selenium (SELENIMIN ORAL) (3 sources) Selenium (SELENIMIN ORAL) Take by mouth. Active Selenium (SELENI MIN ORAL) Take by mouth. 0 Active sennosides, assisted 15 mg oral tablet (3 sources) take 1 tablet by luly th once daily as needed for constipation Sennosides (SENNA) 15 MG tablet Take 1 Tab by mouth daily as needed for Constipation. Active topiramate 25 mg oral tablet (3 sources) take 3 tablets by mo uth twice daily topiramate (TOPIRAGEN) 25 MG tablet Take 75 mg by mouth 2 times daily. Active trihexyphenidyl hydrochloride 2 mg oral tablet (3 sources) take 1 tablet by luly th three times daily trihexyphenidyl 2 MG tablet Take 2 mg by mouth 3 times daily. Active zinc gluconate 50 mg oral tablet (3 sources) Zinc Gluconate 5 0 MG TABS Take by mouth. Active Problems Problem Classification Problem Date Documented Da te Episodic/Chronic Disorders of teeth and jaw (1 source) Dental caries; Translations: [Dental caries, unspecified] 12-27-2023 Episodic E Codes: Fall (1 source) Fall on [...] Other detention (current) drug therapy; Translations: [OTH [facility] CURRENT DRUG THERAPY] Onset: 04-03-2022 Episodic Superficial injury; contusion (1 source) Contusion of other part of head, initial encounter; Translations: [CONTUS OTH PRT HEAD INITIAL ENCNTR] Onset: 07-23-2022 Episodic Thyroid disorders (13 sources) Hypothyroidism, unspecified; Translations: [Autoimmune thyroiditis] Onset: 06-27-2022 Chronic Results Test Name Value Interpretation Reference Range Facility Progress Noteson 12-30-2023 [employer] Authentication Interface Message Text Attempted to contact patient/ parent / guardian at telephone number listed -- no answer, left voicemail message requesting a return call.----- Saturday, December 30, 2023 at 2:26:35 PM ----- ----- Provider: LESLIE [facility] -- Clinic: [place] ----- Normal [facility] FREE T4on 08-29-2022 Free T4 [Mass/Vol] 1.76 ng/dL Critically high 0.76-1.46 [facility] Comment on above: Performed By: #### F T4 #### [facility] [address] [place] [address] Dr. Volodymyr Paez TSHon 08-29-2022 TSH Qn m[IU]/L Critically low 0.358-3.740 [facility] Comment on above: Performed By: #### T SH #### [facility] [address] [place] [address] Dr. Volodymyr Paez CULTURE URINEon 08-24-2022 CULTURE [...] S F Tetracycline >=16 R F Normal [facility] Comment on above: Performed By: #### T SH, CMP #### [facility] [address] [place] [address] Dr. Volodymyr Paez UA (CLEAN/CATCH) ESCROW SECRETARY/MICRO I F IND.on 08-21-2022 Bilirubin Ql (U) Negative Normal NEGATIVE [facility] Comment on above: Performed By: #### U ACSIND UMICRO #### [facility] [address] [place] [address] Dr. Volodymyr Paez Clarity (U) CLEAR Normal CLEAR [facility] Comment on above: Performed By: #### U ACSIND, UMICRO #### [facility] [address] [place] [address] Dr. Volodymyr Paez Color (U) LT. YELLOW Normal YELLOW [facility] Comment on above: Performed By: #### U ACSIND, UMICRO #### [facility] [address] [address] [address] Volodymyr Paez Glucose Ql (U) Negative Normal NEGATIVE [facility] Comment on above: Performed By: #### U ACSIND, UMICRO #### [facility] [address] [address] [address] Volodymyr Paez Hemoglobin Ql (U) Negative Normal NEGATIVE [facility] Comment on above: Performed By: #### U ACSIND, UMICRO #### [facility] [address] [address] [address] Volodymyr Paez Ketones Ql (U) Negative Normal NEGATIVE [facility] Comment on above: Performed By: #### U ACSIND, UMICRO #### [facility] [address] [address] [address] Volodymyr Paez LEUKOCYTES SMALL Abnormal NEGATIVE [facility] Comment on above: Performed By: #### U ACSIND, UMICRO #### [facility] [address] [address] [address] Volodymyr Paez Nitrite Ql (U) Negative Normal NEGATIVE [facility] Comment on above: Performed By: #### U ACSIND, UMICRO #### [facility] [address] [address] [address] Volodymyr Paez pH (U) 7.0 [pH] Normal 5-9 [facility] Comment on above: Performed By: #### U ACSIND, UMICRO #### [facility] [address] [address] [address] Volodymyr Paez SPEC GRAVITY 1.020 Normal 1.005-<=1.025 [facility] Comment on above: Performed By: #### U ACSIND, UMICRO #### [facility] [address] [address] [address] Volodymyr Paez UA PROTEIN Negative Normal NEGATIVE/ TRACE [facility] Comment on above: Performed By: #### U ACSIND, UMICRO #### [facility] [address] [address] [address] Volodymyr Paez UR MICRO IND INDICATED Normal [facility] Comment on above: Performed By: #### U ACSIND, UMICRO #### [facility] [address] [address] [address] Volodymyr Paez Urobilinogen Qn (U) 0.2 {Leta'U}/dL Normal 0.2 - 1. 0 [facility] Comment on above: Performed By: #### U ACSIND, UMICRO #### [facility] [address] [address] [address] Volodymyr Paez URINE MICROSCOPIC ONLYon BACTERIA SMALL Abnormal NONE SEEN [facility] Comment on above: Performed By: #### U ACSIND, UMICRO #### [facility] [address] [place] [address] Dr. Volodymyr Paez Bacteria identified Cx Nom (U) INDICATED Normal [facility] Comment on above: Performed By: #### U ACSIND, UMICRO #### [facility] [address] [place] [address] Dr. Volodymyr Paez CAST NONE SEEN Normal NONE SEEN [facility] Comment on above: Performed By: #### U ACSIND, UMICRO #### [facility] [address] [place] [address] Dr. Volodymyr Paez Crystals LM Nom (Urine sed) NONE SEEN Normal NONE SEEN [facility] Comment on above: Performed By: #### U ACSIND, UMICRO #### [facility] [address] [place] [address] Dr. Volodymyr Paez Epithelial cells LM Ql (Urine sed) MODERATE Abnormal NONE SEEN /RARE [facility] Comment on above: Performed By: #### U ACSIND, UMICRO #### [facility] [address] [address] [address] Volodymyr Paez MUCOUS TRACE Abnormal NONE SEEN [facility] Comment on above: Performed By: #### U ACSIND, UMICRO #### [facility] [address] [place] [address] Dr. Volodymyr Paez RBC 2-5 Abnormal 0-2 [facility] Comment on above: Performed By: #### U ACSIND, UMICRO #### [facility] [address] [place] [address] Dr. Volodymyr Paez WBC 10-20 Abnormal NONE SEEN [facility] Comment on above: Performed By: #### U ACSSHAHEEN, UMICRO #### [facility] [address] [place] [address] Dr. Volodymyr Paez LAMOTRIGINEon 08-13-2022 Lamotrigine, Serum 11.2 ug/mL Normal 2.0-20.0 [place] Comment on above: Result Comment: Dete ction Limit = 1.0 Performed By: #### T SH, CMP #### [facility] [address] [place] [address] Dr. Volodymyr Paez CBC AUTO DIFFon 08-09-2022 BASO # 0.0 103/ul Normal 0.0-0.1 [facility] Comment on above: Performed By: #### C BC #### [facility] [address] [place] [address] Dr. Volodymyr Paez Basophils/100 WBC (Bld) 0.4 % Normal 0.2-2.0 [facility] Comment on above: Performed By: #### C BC #### [facility] [address] [place] [address] Dr. Volodymyr Paez EO # 0.4 103/ul Normal 0.0-0.7 [facility] Comment on above: Performed By: #### C BC #### [facility] [address] [place] [address] Dr. Volodymyr Paez Eosinophils/100 WBC (Bld) 4.3 % Normal 0.9-7.0 [facility] Comment on above: Performed By: #### C BC #### [facility] [address] [place] [address] Dr. Volodymyr Paez Erythrocyte distribution width (RBC) [Ratio] 13.2 % Normal 11.0-15.0 [facility] Comment on above: Performed By: #### C BC #### [facility] [address] [place] [address] Dr. Volodymyr Paez Hematocrit (Bld) [Volume fraction] 40.2 % Normal 36.0-48.0 [facility] Comment on above: Performed By: #### C BC #### [facility] [address] [place] [address] Dr. Volodymyr Paez Hemoglobin (Bld) [Mass/Vol] 13.8 g/dL Normal 12.0-16.0 [facility] Comment on above: Performed By: #### C BC #### [facility] [address] [place] [address] Dr. Volodymyr Paez IG # 0.02 10e3/ul Normal 0.00-0.03 [facility] Comment on above: Performed By: #### C BC #### [facility] [address] [place] [address] Dr. Volodymyr Paez IG % 0.2 % Normal 0.0-0.5 [facility] Comment on above: Performed By: #### C BC #### [facility] [address] [place] [address] Dr. Volodymyr Paez LYMPH # 4.3 103/ul Critically high 1.2-3.8 [facility] Comment on above: Performed By: #### C BC #### [facility] [address] [place] [address] Dr. Volodymyr Paez Lymphocytes/100 WBC (Bld) 51.8 % Normal 20.5-60.0 [facility] Comment on above: Performed By: #### C BC #### [facility] [address] [place] [address] Dr. Volodymyr Paez MANUAL DIFF REQ NO Normal [facility] Comment on above: Performed By: #### C BC #### [facility] [address] [place] [address] Dr. Volodymyr Paez MCH (RBC) [Entitic mass] 31.0 pg Normal 26.7-34.0 [facility] Comment on above: Performed By: #### C BC #### [facility] [address] [place] [address] Dr. Volodymyr Paez MCHC (RBC) [Mass/Vol] 34.3 g/dL Normal 29.9-35.2 [facility] Comment on above: Performed By: #### C BC #### [facility] [address] [address] [address] Volodymyr Paez MCV (RBC) [Entitic vol] 90.3 fL Normal 81.0-99.0 [facility] Comment on above: Performed By: #### C BC #### [facility] [address] [address] [address] Volodymyr Paez MONO # 0.9 103/ul Critically high 0.3-0.8 [facility] Comment on above: Performed By: #### C BC #### [facility] [address] [address] [address] Volodymyr Paez Monocytes/100 WBC (Bld) 10.4 % Normal 1.7-12.0 [facility] Comment on above: Performed By: #### C BC #### [facility] [address] [address] [address] Volodymyr Paez NEUT # 2.7 103/ul Normal 1.4-6.5 [facility] Comment on above: Performed By: #### C BC #### [facility] [address] [place] [address] Dr. Volodymyr Paez Neutrophils/100 WBC (Bld) 32.9 % Critically low 43.0-75.0 [facility] Comment on above: Performed By: #### C BC #### [facility] [address] [address] [address] Volodymyr Paez Platelet mean volume (Bld) [Entitic vol] 10.3 fL Normal 9.5-13.5 [facility] Comment on above: Performed By: #### C BC #### [facility] [address] [place] [address] Dr. Volodymyr Paez PLT 231 103/ul Normal 150-450 [facility] Comment on above: Performed By: #### C BC #### [facility] [address] [place] [address] Dr. Volodymyr Paez RBC 4.45 106/ul Normal 4.20-5.40 [facility] Comment on above: Performed By: #### C BC #### [facility] [address] [address] [address] Volodymyr Paez WBC 8.2 103/ul Normal 4.0-11.0 [facility] Comment on above: Performed By: #### C BC #### [facility] [address] [place], [place] [address] Dr. Volodymyr Paez DEPAKENE/ VALPROIC ACIDon DEPAKENE 80.3 ug/ml Normal 50.0-100.0 [facility] Comment on above: Performed By: #### V ALP #### [facility] [address] [address] [address] Volodymyr Paez US THYROIDon 07-10-2022 US [...] 6 mm. No follow-up required TI-RADS: The [employer] TI-RADS committee's white paper recommendations for thyroid lesions classified as TR4 (moderately suspicious) are listed below: > 1.0 cm. Follow-up ultrasound in 1, 2, 3, and 5 years. > 1.5 cm. FNA. J. Am Chidi Radiol 2017;14:[id number]. Electronically authenticated by: MATILDE WATERMAN Date: 2022-07-10 13:01 Normal [facility] LAMOTRIGINEon 06-29-2022 Lamotrigine, Serum 14.2 ug/mL Normal 2.0-20.0 [place] Comment on above: Result Comment: Dete ction Limit = 1.0 Performed By: #### T SH, CMP #### [facility] [address] [place] [address] Dr. Volodymyr Paez CBC AUTO DIFFon 06-27-2022 BASO # 0.1 103/ul Normal 0.0-0.1 [facility] Comment on above: Performed By: #### T SH, CMP #### [facility] [address] [place] [address] Dr. Volodymyr Paez Basophils/100 WBC (Bld) 0.7 % Normal 0.2-2.0 [facility] Comment on above: Performed By: #### T SH, CMP #### [facility] [address] [place] [address] Dr. Volodymyr Paez EO # 0.4 103/ul Normal 0.0-0.7 [facility] Comment on above: Performed By: #### T SH, CMP #### [facility] [address] [place] [address] Dr. Volodymyr Paez Eosinophils/100 WBC (Bld) 5.1 % Normal 0.9-7.0 [facility] Comment on above: Performed By: #### T SH, CMP #### [facility] [address] [place] [address] Dr. Volodymyr Paez Erythrocyte distribution width (RBC) [Ratio] 13.1 % Normal 11.0-15.0 [facility] Comment on above: Performed By: #### T SH, CMP #### [facility] [address] [place] [address] Dr. Volodymyr Paez Hematocrit (Bld) [Volume fraction] 39.7 % Normal 36.0-48.0 [facility] Comment on above: Performed By: #### T SH, CMP #### [facility] [address] [place] [address] Dr. Volodymyr Paez Hemoglobin (Bld) [Mass/Vol] 13.3 g/dL Normal 12.0-16.0 [facility] Comment on above: Performed By: #### T SH, CMP #### [facility] [address] [place] [address] Dr. Volodymyr Paez IG # 0.02 10e3/ul Normal 0.00-0.03 [facility] Comment on above: Performed By: #### T SH, CMP #### [facility] [address] [place] [address] Dr. Volodymyr Paez IG % 0.3 % Normal 0.0-0.5 [facility] Comment on above: Performed By: #### T SH, CMP #### [facility] [address] [place] [address] Dr. Volodymyr Paez LYMPH # 3.6 103/ul Normal 1.2-3.8 [facility] Comment on above: Performed By: #### T SH, CMP #### [facility] [address] [place] [address] Dr. Volodymyr Paez Lymphocytes/100 WBC (Bld) 47.4 % Normal 20.5-60.0 [facility] Comment on above: Performed By: #### T SH, CMP #### [facility] [address] [place] [address] Dr. Volodymyr Paez MANUAL DIFF REQ NO Normal [facility] Comment on above: Performed By: #### T SH, CMP #### [facility] [address] [place] [address] Dr. Volodymyr Paez MCH (RBC) [Entitic mass] 30.3 pg Normal 26.7-34.0 [facility] Comment on above: Performed By: #### T SH, CMP #### [facility] [address] [place] [address] Dr. Volodymyr Paez MCHC (RBC) [Mass/Vol] 33.5 g/dL Normal 29.9-35.2 [facility] Comment on above: Performed By: #### T SH, CMP #### [facility] [address] [place] [address] Dr. Volodymyr Paez MCV (RBC) [Entitic vol] 90.4 fL Normal 81.0-99.0 [facility] Comment on above: Performed By: #### T SH, CMP #### [facility] [address] [place] [address] Dr. Volodymyr Paez MONO # 0.9 103/ul Critically high 0.3-0.8 [facility] Comment on above: Performed By: #### T AKIKO, CMP #### [facility] [address] [place] [address] Dr. Volodymyr Paez Monocytes/100 WBC (Bld) 11.3 % Normal 1.7-12.0 [facility] Comment on above: Performed By: #### T AKIKO, CMP #### [facility] [address] [place] [address] Dr. Volodymyr Paez NEUT # 2.7 103/ul Normal 1.4-6.5 [facility] Comment on above: Performed By: #### T AKIKO, CMP #### [facility] [address] [place] [address] Dr. Volodymyr Paez Neutrophils/100 WBC (Bld) 35.2 % Critically low 43.0-75.0 [facility] Comment on above: Performed By: #### T AKIKO, CMP #### [facility] [address] [place] [address] Dr. Volodymyr Paez Platelet mean volume (Bld) [Entitic vol] 11.4 fL Normal 9.5-13.5 [facility] Comment on above: Performed By: #### T AKIKO, CMP #### [facility] [address] [place] [address] Dr. Volodymyr Paez PLT 96 103/ul Critically low 150-450 [facility] Comment on above: Result Comment: slid e made; no plt clumps seen Performed By: #### T AKIKO, CMP #### [facility] [address] [place] [address] Dr. Volodymyr Paez RBC 4.39 106/ul Normal 4.20-5.40 [facility] Comment on above: Performed By: #### T AKIKO, CMP #### [facility] [address] [place] [address] Dr. Volodymyr Paez WBC 7.6 103/ul Normal 4.0-11.0 [facility] Comment on above: Performed By: #### T AKIKO, CMP #### [facility] [address] [place] [address] Dr. Volodymyr Paez FREE T4on 06-27-2022 Free T4 [Mass/Vol] 1.45 ng/dL Normal 0.76-1.46 [place] Comment on above: Performed By: #### F T4 #### [facility] [address] [place] [address] Dr. Volodymyr Paez PROF 14(COMP METB)on 023 Albumin [Mass/Vol] 3.2 g/dL Critically low 3.4-5.0 [facility] Comment on above: Performed By: #### T SH, CMP #### [facility] [address] [place] [address] Dr. Volodymyr Paez Albumin/Globulin [Mass ratio] 0.7 {ratio} [facility] Comment on above: Performed By: #### T SH, CMP #### [facility] [address] [place] [address] Dr. Volodymyr Paez ALP [Catalytic activity/Vol] 65 U/L Normal 46-116 [facility] Comment on above: Performed By: #### T SH, CMP #### [facility] [address] [place] [address] Dr. Volodymyr Paez ALT [Catalytic activity/Vol] 20 U/L Normal 14-59 [facility] Comment on above: Performed By: #### T SH, CMP #### [facility] [address] [place] [address] Dr. Volodymyr Paez Anion gap [Moles/Vol] 11.3 mmol/L Normal [facility] Comment on above: Performed By: #### T SH, CMP #### [facility] [address] [place] [address] Dr. Volodymyr Paez AST [Catalytic activity/Vol] 25 U/L Normal 15-37 [facility] Comment on above: Performed By: #### T SH, CMP #### [facility] [address] [place] [address] Dr. Volodymyr Paez Bilirubin [Mass/Vol] 0.3 mg/dL Normal 0.2-1.0 [facility] Comment on above: Performed By: #### T SH, CMP #### [facility] [address] [place] [address] Dr. Volodymyr Paez Calcium [Mass/Vol] 9.5 mg/dL Normal 8.5-10.1 The [facility] Comment on above: Performed By: #### T SH, CMP #### [facility] [address] [place] [address] Dr. Volodymyr Paez Chloride [Moles/Vol] 100 mmol/L Normal 98-107 [facility] Comment on above: Performed By: #### T SH, CMP #### [facility] [address] [place] [address] Dr. Volodymyr Paez CO2 [Moles/Vol] 30.1 mmol/L Normal 21.0-32.0 [facility] Comment on above: Performed By: #### T SH, CMP #### [facility] [address] [place] [address] Dr. Volodymyr Paez Creatinine [Mass/Vol] 0.92 mg/dL Normal 0.55-1.02 [facility] Comment on above: Performed By: #### T SH, CMP #### [facility] [address] [place] [address] Dr. Volodymyr Paez EGFR-AF [place] >60 Normal >=60 [facility] Comment on above: Performed By: #### T SH, CMP #### [facility] [address] [place] [address] Dr. Volodymyr Paez EGFR-NON AF [place] >60 Normal >=60 [facility] Comment on above: Performed By: #### T SH, CMP #### [facility] [address] [place] [address] Dr. Volodymyr Paez Globulin (S) [Mass/Vol] 4.4 g/dL Normal [facility] Comment on above: Performed By: #### T SH, CMP #### [facility] [address] [place] [address] Dr. Volodymyr Paez Glucose [Mass/Vol] 76 mg/dL Normal 74-106 [facility] Comment on above: Performed By: #### T SH, CMP #### [facility] [address] [place] [address] Dr. Volodymyr Paez Potassium [Moles/Vol] 4.4 mmol/L Normal 3.5-5.1 [facility] Comment on above: Performed By: #### T SH, CMP #### [facility] [address] [place] [address] Dr. Volodymyr Paez Protein [Mass/Vol] 7.6 g/dL Normal 6.4-8.2 [place] Comment on above: Performed By: #### T SH, CMP #### [facility] [address] [place] [address] Dr. Volodymyr Paez Sodium [Moles/Vol] 137 mmol/L Normal 136-145 [place] Comment on above: Performed By: #### T SH, CMP #### [facility] Laboratory [address] [place] [address] Dr. Volodymyr Paez Urea nitrogen [Mass/Vol] 7.0 mg/dL Normal 7.0-18.0 [facility] Comment on above: Performed By: #### T SH, CMP #### [facility] [address] [place] [address] Dr. Volodymyr Paez Urea nitrogen/Creatinine [Mass ratio] 7.6 mg/mg Normal [facility] Comment on above: Performed By: #### T SH, CMP #### [facility] [address] [place] [address] Dr. Volodymyr Paez TSHon 06-27-2022 TSH 0.099 uIU/mL Critically low 0.358-3.740 [facility] Comment on above: Performed By: #### T SH, CMP #### [facility] [address] [place] [address] Dr. Volodymyr Paez DEPAKENE/ VALPROIC ACIDon DEPAKENE 72.4 ug/ml Normal 50.0-100.0 [facility] Comment on above: Performed By: #### T SH, CMP #### [facility] [address] [place] [address] Dr. Volodymyr Paez US THYROIDon 10-25-2021 US THYROID EXAMINATION: US [...] screening is still recommended. TR 4: The [employer] TI-RADS committee's white paper recommendations for thyroid lesions classified as TR4 (moderately suspicious) are listed below: > 1.0 cm. Follow-up ultrasound in 1, 2, 3, and 5 years. > 1.5 cm. FNA. J. Am Chidi Radiol 2017;14:587-595. Electronically authenticated by: KRIS MENDOZA Date: 2021-10-25 09:31 Normal [facility] FREE T4on 10-24-2021 Free T4 [Mass/Vol] 1.08 ng/dL Normal 0.76-1.46 [place] Comment on above: Performed By: #### T SH, CMP #### [facility] [address] [address] [address] Volodymyr Paez TSHon 10-24-2021 TSH 12.719 uIU/mL Critically high 0.358-3.740 [facility] Comment on above: Performed By: #### T SH #### [facility] [address] [address] [address] Volodymyr Paez Encounters Encounter Date Encounter Type Care Provider Facility Start: 12-27-2023 End: 12-27-2023 Admission to same day surgery center Mike Weber DDS Work Phone: [facility] Start: 10-01-2023 End: 10-01-2023 ambulatory EDSON RALEIGH Not Available Start: 08-06-2023 End: 08-06-2023 ambulatory [...] REQUEST Facility:[facility] Start: 04-30-2022 Telephone encounter Martha Tristin dill DMD Work Phone: [facility] Comment on above: Dental Start: 04-03-2022 End: 04-04-[address] ADRIEL TILLEY Facility:[facility] Start: 03-13-2022 End: 03-18-2022 Patient encounter procedure Martha Coreas DMD Work Phone: [facility] Start: 10-24-2021 End: 10-25-[address] DOCTOR JAVED Facility:[facility] Start: 11-07-2016 End: 11-08-2016 Ambulatory DEFAULT PHYSICIAN Facility:[facility] Plan of Treatment Date Care Activity Detail Author Start: 2043 Shingles (RZV) Vacci ne (1 of 2) Shingles (RZV) Vaccine (1 of 2) [facility] Start: 01-21-2024 Influenza vaccination Influenza Vacc ine (#1) [facility] Start: 12-22-2023 COVID-19 Vaccine ( season) COVID-19 Vaccine ( season) [facility] Start: 01-20-2022 Influenza vaccination Influenza Vacc ine (#1) [facility] Start: 07-19-2020 COVID-19 Vaccine (3 - Booster for Pfizer series) COVID-19 Vaccine (3 - Booster for Pfizer series) [facility] Start: 01-02-2020 HPV Vaccine (optiona l start - years) HPV Vaccine (optional start 27-45 years) [facility] Start: 2014 Screening for malign ant neoplasm of cervix Pap Smear [facility] Start: 12-21-2013 Annual wellness visit Annual W nancy Visit ([id number]) [facility] Start: 01-02-2012 Hepatitis A (HAV) Va ccine (optional start 19+ years) Hepatitis A (HAV) Vaccine (optional start 19+ years) [facility] Start: 01-02-2012 Hepatitis B vaccination Hepati tis B (HBV) Vaccine (1 of 3 - 19+ 3-dose series) [facility] Start: 2011 Hepatitis C screening Hepatitis C An tibody [facility] Start: 2011 Tetanus + diphtheria + acellular pertussis vaccine (product) Tdap Booster [facility] Start: 01-02-2008 HIV screening HIV Test [facility] DENTAL RESTORATIONS DENTAL MEENA RATIONS Routine scheduled Caries [facility] Payers Date Payer Category Payer Unknown 2013 Medicaid [id number] 2012 Medicare MEDICARE MEDICAR E PART A & B [id number] 2012-Present [id number] [place] [address] Medicare [id number] 1993 Unknown [id number] 1993 Unknown [id number] 1959 Medicaid [id number] 1959 Medicare [id number] 1954 Unknown [id number] 1954 Unknown [id number] [id number] 1954 Unknown [id number] [id number] 1954 Unknown [id number] [id number] 1954 Unknown [id number] [id number] 1954 Unknown [id number] [id number] 1954 Unknown [id number] [id number] 1954 Unknown [id number] Social History Date Type Detail Facility Tobacco smoking stat [facility] Tobacco smoking consumption unknown [facility] Start: 1993 Sex Assigned At Not on file [facility] Gender identity Not on file [facility] Note 04-30-2022 Telephone Encounter - Liliana Song - 04/30/2022 3:03 PM EST Note Date & Type Note Facility 04-30-2022 Miscellaneous Notes Formattin g of this note might be different from the original. Bina from [facility] calling in. She wanted to know [...] be different from the original. Bina from [facility] calling in. She wanted to know where the pt was at on the OR wait list. E-mail sent to Connie E-mail sent 04/30/22 [facility] History of Present illness Narrative 03-13-2022 Martha Coreas DMD - 03/13/2022 10:06 AM EST Note Date & Type Note Facility 03-13-2022 History of Presen t illness Narrative ----- Sunday, March 13, 2022 at 11:58:40 AM ----- ----- Provider: [id number] Misael Coreas DMD -- Clinic: [place] ----- OR [...] available. Legal Guardian: Toshia Esteves Phone #: [phone] NOTE: Patient had a hard time leaning her head back, but allowed me to look. Patient not indicating she is in any pain. #8 is very discolored - most likely will need RCT treatment. Gingiva very red and irritated. Caregiver did not know who patient's guardian was or contact information, looked it up in [employer]. Next Visit: OR documented in this encounter [facility] Evaluation note Note Date & Type Note Facility Evaluation note Diagnosis Caries- Primary Unspecified dental caries [facility] Summary Purpose Family History No Family History Records FoundNo Family History Records FoundNo Family History Records FoundNo Family History Records Found Advance Directives No Advanced Directives Records FoundNo Advanced Directives Records FoundNo Advanced Directives Records FoundNo Advanced Directives Records Found Reason for Referral Specialty Diagnoses / Procedures Referred By Alessandro azul Referred To Contact Anesthesiology Diagnoses Caries Elmer Topete, DDS [address] [place] [address] [facility] PRE ADMISSION TESTING [address] [place] [address] Referral ID Status Reason Start Date Expiration Date V isits Requested Visits Authorized [id number] Authorized 12/27/2023 12/26/2024 1 1 Scheduling Instructions Your surgical team will reach out to you to schedule a pre-admission testing appointment. Question Answer Reason for consult? Recommended PAT Risk Score Additional Source Comments INFORMATION SOURCE (unrecogn ized section and content) DATE CREATED AUTHOR 10/16/2017 [facility] DATE CREATED AUTHOR AUTHOR'S ORGANIZ ATION 09/02/[address] [facility] DATE CREATED AUTHOR AUTHOR'S ORGANIZ ATION 10/01/2023 [facility] EPIC DATE CREATED AUTHOR AUTHOR'S ORGANIZ ATION 12/31/2023 [facility] [employer] [employer] [facility] Reason for Visit (unrecogniz ed section and [...] BE BASED ON THE PRIMARY CLINICAL RECORDS. [employer] [facility]. provides no warranty or guarantee of the accuracy or completeness of information in this document.
[2024-01-01 07:38] LABS: Thyroid Stimulating Hormone 17.755 uIU/mL (0.358-3.740)
[2024-01-01 08:38] LABS: Free T4 0.69 ng/dL (0.76-1.46)
== END 2024-01-01 06:41 | disposition home or self-care (01) ==
LOC: LAB 06:41
PROVIDERS: PCP Family Medicine; Visit Provider Family Medicine
DX: E03.9 Hypothyroidism, unspecified (principal)
CPT/HCPCS: 36415; 84439; 84443

== ENCOUNTER 2024-01-28 06:49 | Outpatient (OUT) | payer MEDICARE, MEDICAID, SELFPAY ==
--- OUTSIDE RECORDS SUMMARY | 2024-01-28 06:53 | XMS_ITS | CCD ---
Author Organization [facility] Care Team Providers Care Zone Supervisor Firearms Name Role Phone PHYSICIAN, DEFAULT Unavailable Unavailable [...] MISC, DR HERNANDEZ Consulting Unavailable ZIEBER, DR PETE White Consulting Unavailable TILLEY, DR ADRIEL Craft [...] ble TILLEY, DR ADRIEL Craft Admitting Unavailable TLILEY, DR ADRIEL Craft Attending Unavailable TILLEY, DR ADRIEL Craft Consulting Unavailable MISC, DR HERNANDEZ Admitting Unavailable MISC, DR HERNANDEZ Attending Unavailable REQUEST, DR OROZCO LISTED Primary Care Unavaila ble WEST, DR MATILDE Stanley Consulting Unavailable MISC, DR HERNANDEZ Consulting Unavailable Unavailable Primary Care Provider Unavailabl e Andersonlocattadeo OLSON, Noms Provider Primary Care Provi roselyn Pete Mcguire MD Unavailable [phone] EDSON MARTINEZ Attending Unavailable EDSON MARTINEZ Attending Unavailable EDSON MARTINEZ Attending Unavailable Andersonlokayla OLSON, Noms Provider Primary Care Provi roselyn Allergies Allergy Classification Reported Allergen(s) Allergy Type Date of Onset Reaction(s) Facility (6 sources) Ethosuximide Drug Allergy 09-15-2014 Rash [facility] (1 source) Allopurinol Drug Allergy 07-16-2013 [facility] (1 source) Ethosuximide Drug Allergy 07-16-2013 [facility] (2 sources) linaclotide Drug Allergy 08-06-2023 [facility] Healthcare Medications Current Medications Medication Drug Class(es) Dates Sig (Normalized) Sig (Original) busPIRone hydrochloride 30 mg oral tablet (1 source) take 1 tablet by mouth in the morning, then take 1 tablet by mouth in the evening, then take 1 tablet by mouth at bedtime busPIRone (Buspar) 30 MG tablet Take 30 mg by mouth in the morning and 30 mg in the evening and 30 mg before bedtime. Active chlorhexidine gluconate 1.2 mg/ml mouthwash (4 sources) Start: 09-15-2014 take 15 mL by mouth twice daily chlorhexidine (PERIDEX) 0.12 % oral solution Take 15 mL by mouth 2 times daily. 1 Bottle 0 09/15/2014 Active cloNIDine hydrochloride 0.2 mg oral tablet (5 sources) Central alpha-2 Adrenergic Agonist cloNIDine (Catapres) 0.2 MG tablet Take 0.2 mg by mouth in the morning and 0.2 mg at noon and 0.2 mg in the evening and 0.2 mg before bedtime. Active CLONIDINE HCL OR AL Take by mouth. Active CLONIDINE HCL OR AL Take by mouth. 0 Active docusate sodium 100 mg oral capsule (4 sources) take 1 capsule by mouth twice daily docusate sodium (COLACE) 100 MG capsule Take 100 mg by mouth 2 times daily. Active ethinyl estradiol 0.035 mg / norethindrone acetate 1 mg oral tablet (1 source) Estrogen norethindrone-et hiny l estradiol (Ortho-Novum, Nortrel) 1-35 MG-MCG tablet Take 1 tablet by mouth Daily Active famotidine 40 mg oral tablet (1 source) Histamine-2 Receptor Antagonist take 1 tablet by mouth once daily famotidine (Pepcid) 40 MG tablet Take 40 mg by mouth Daily Active fluticasone (4 sources) Corticosteroid Fluticasone Propionate (FLONASE NASAL) [employer] into each nostril. Active Fluticasone Prop ionate (FLONASE NASAL) [employer] into each nostril. 0 Active guanFACINE 2 mg oral tablet (1 source) Central alpha-2 Adrenergic Agonist take 1 tablet by mouth in the morning guanFACINE (Tenex) 2 MG tablet Take 2 mg by mouth in the morning and 2 mg before bedtime. Active ibuprofen 600 mg oral tablet (4 sources) Nonsteroidal Anti-inflammatory Drug Start: 09-16-19 15 take 1 tablet by mouth every six hours as needed for pain ibuprofen (MOTRIN) 600 MG tablet Take 1 Tab by mouth every 6 hours as needed for Pain. 30 Tab 1 09/15/2014 Active ammonium lactate 120 mg/ml topical cream (1 source) ammonium lactate (Amlactin) 12 % cream Apply 2 application topically Daily Active lactobacillus acidophilus 16 mg oral capsule (4 sources) Lactobacillus (ACIDOPHILUS) CAPS Take by mouth. Active lamoTRIgine 100 mg oral tablet (2 sources) Mood Stabilizer, Anti-epileptic Agent take 1 tablet by mouth at bedtime lamoTRIgine (LaMICtal) 100 MG tablet Take 100 mg by mouth at bedtime Active take 1 tablet by mouth in the mo rning lamoTRIgine (LaMICtal) 150 MG tablet Take 150 mg by mouth in the morning. Active levothyroxine sodium 0.175 mg oral tablet (1 source) l-Thyroxine take 1 tablet by mouth before mealtime levothyroxine (Synthroid, Levoxyl) 175 MCG tablet Take 175 mcg by mouth in the morning. Take before meals. Active loratadine 10 mg oral tablet (1 source) take 1 tablet by mouth once daily loratadine (Claritin) 10 MG tablet Take 10 mg by mouth Daily Active melatonin 3 mg disintegrating oral tablet (1 source) take 1 tablet by mouth at bedtime Melatonin 3 MG tablet dispersible Take 3 mg by mouth at bedtime Active 24 hr paliperidone 3 mg extended release oral tablet (1 source) Atypical Antipsychotic take 1 tablet by mouth every twenty-four hours in the morning paliperidone (Invega) 3 MG 24 hr tablet Take 3 mg by mouth in the morning and 3 mg before bedtime. Do not crush, chew, or split.. Active polyethylene glycol 3350 23811 mg powder for oral solution (1 source) Osmotic Laxative take 17 g by mouth once daily polyethylene glycol, PEG, 3350 (Miralax) 17 g packet Take 17 g by mouth Daily Active QUEtiapine 200 mg oral tablet (2 sources) Atypical Antipsychotic take 1 tablet by mouth at bedtime QUEtiapine (SEROquel) 200 MG tablet Take 200 mg by mouth at bedtime Active take 1 tablet by mouth at bedtim e QUEtiapine (SEROquel) 400 MG tablet Take 400 mg by mouth at bedtime Active Selenium (SELENIMIN ORAL) (4 sources) Selenium (SELENI MIN ORAL) Take by mouth. Active Selenium (SELENI MIN ORAL) Take by mouth. 0 Active sennosides, jail 15 mg oral tablet (4 sources) take 1 tablet by mouth once daily as needed for constipation Sennosides (SENNA) 15 MG tablet Take 1 Tab by mouth daily as needed for Constipation. Active topiramate 25 mg oral tablet (4 sources) take 3 tablets by mouth twice daily topiramate (TOPIRAGEN) 25 MG tablet Take 75 mg by mouth 2 times daily. Active trihexyphenidyl hydrochloride 2 mg oral tablet (4 sources) take 1 tablet by mouth three times daily trihexyphenidyl 2 MG tablet Take 2 mg by mouth 3 times daily. Active divalproex sodium 125 mg delayed release oral tablet (2 sources) Mood Stabilizer, Anti-epileptic Agent take 4 tablets by mouth in the morning, then take 4 tablets by mouth in the evening, then take 4 tablets by mouth at bedtime divalproex (Depakote) 125 MG EC tablet Take 500 mg by mouth in the morning and 500 mg in the evening and 500 mg before bedtime. Active divalproex (Depa kote) 125 MG EC tablet Take 1,000 mg by mouth at bedtime Do not crush, chew, or split. Active zinc gluconate 50 mg oral ta blet (4 sources) Zinc Gluconate 5 0 MG TABS Take by mouth. Active Problems Active Problems Problem Classification Problem Date Documented Da te Episodic/Chronic Anxiety disorders (2 sources) Anxiety disorder; Translations: [Anxiety disorder, unspecified] Onset: 09-03-2017 08-06-2023 Chronic Delirium, dementia, and amnestic and other cognitive disorders (3 sources) Pseudobulbar affect; Translations: [Pseudobulbar affect] Onset: 08-06-2023 08-06-2023 Chronic Developmental disorders (3 sources) Intellectual disability; Translations: [Unspecified intellectual disabilities] Onset: 01-15-2024 01-15-2024 Chronic Disorders of teeth and jaw (3 sources) Dental caries; Translations: [Dental caries, unspecified] Onset: 12-27-2023 12-27-2023 Episodic Disorders usually diagnosed in infancy, childhood, or adolescence (3 sources) Autism spectrum disorder; Translations: [Autistic disorder] Onset: 09-03-2017 08-06-2023 Chronic E Codes: Fall (1 source) Fall on same level from slipping, tripping and stumbling with subsequent striking against unspecified object, initial encounter; Translations: [FALL SAME LVL SLIP STRK UNS OBJ INT] Onset: 07-23-2022 Episodic Epilepsy; convulsions (8 sources) Epilepsy, unspecified, not intractable, without status epilepticus; Translations: [Seizure disorder] Onset: 04-08-2022 Chronic Genitourinary symptoms and ill-defined [...] 07-21-2022 Episodic Other aftercare (5 sources) Other intermediate (current) drug therapy; Translations: [OTH CORRECTION CURRENT DRUG THERAPY] Onset: 04-03-2022 Episodic Other nervous system disorders (3 sources) Abnormal gait; Translations: [Unsteadiness on feet] Onset: 08-06-2023 01-15-2024 Episodic Superficial injury; contusion (1 source) Contusion of other part of head, initial encounter; Translations: [CONTUS OTH PRT HEAD INITIAL ENCNTR] Onset: 07-23-2022 Episodic Thyroid disorders (13 sources) Hypothyroidism, unspecified; Translations: [Autoimmune thyroiditis] Onset: 06-27-2022 Chronic Past or Other Problems Problem Classification Problem Date Documented Da te Episodic/Chronic Conditions associated with dizziness or vertigo (2 sources) Dizziness; Translations: [Dizziness and giddiness] Onset: 07-03-2018 08-06-2023 Episodic Residual codes; unclassified (2 sources) Personal history of other specified conditions; Translations: [Personal history of other specified diseases] Onset: 09-03-2017 08-06-2023 Episodic Results Test Name Value Interpretation Reference Range Facility Progress Noteson 01-08-2024 Special Delivery Messenger Authentication Interface Message Text Parent/guardian/pat ient was contacted for PAT AND OR Sedation scheduled -- confirmed information with patient, also informed mom importance of going to PAT appointment -- if missed, IV Sedation will be cancelled, and you will be placed back on wait list 03/02/24----- Monday, January 08, 2024 at 2:14:12 PM ----- ----- Provider: [facility] -- Clinic: [place] ----- Normal [facility] Progress Noteson 12-30-2023 Special Delivery Messenger Authentication Interface Message Text Attempted to contact patient/ parent / guardian at telephone number listed -- no answer, left voicemail message requesting a return call.----- Saturday, December 30, 2023 at 2:26:35 PM ----- ----- Provider: [facility] -- Clinic: [place] ----- Normal [facility] FREE T4on 08-29-2022 Free T4 [Mass/Vol] 1.76 ng/dL Critically high 0.76-1.46 [facility] Comment on above: Performed By: #### F T4 #### [facility] [address] [place] [address] Dr. Volodymyr Paez TSHon 08-29-2022 TSH Qn m[IU]/L Critically low 0.358-3.740 [facility] Comment on above: Performed By: #### T SH #### [facility] [address] [place] [address] Dr. Volodymyr Paez CULTURE URINEon 08-24-2022 CULTURE [...] S F Tetracycline >=16 R F Normal [facility] Comment on above: Performed By: #### T SH, CMP #### [facility] [address] [place] [address] Dr. Volodymyr Paez UA (CLEAN/CATCH) SLATE ROOFER/MICRO I F IND.on 08-21-2022 Bilirubin Ql (U) Negative Normal NEGATIVE [facility] Comment on above: Performed By: #### U ACSIND, ICRO #### [facility] [address] [place] [address] Dr. Volodymyr Paez Clarity (U) CLEAR Normal CLEAR [facility] Comment on above: Performed By: #### U ACSIND, ICRO #### [facility] [address] [place] [address] Dr. Volodymyr Paez Color (U) LT. YELLOW Normal YELLOW [facility] Comment on above: Performed By: #### U ACSIND, UMICRO #### [facility] [address] [place] [address] Dr. Volodymyr Paez Glucose Ql (U) Negative Normal NEGATIVE [facility] [place] Comment on above: Performed By: #### U ACSIND, UMICRO #### [facility] [address] [place] [address] Dr. Volodymyr Paez Hemoglobin Ql (U) Negative Normal NEGATIVE [facility] Comment on above: Performed By: #### U ACSIND, UMICRO #### [facility] [address] [place] [address] Dr. Volodymry Paez Ketones Ql (U) Negative Normal NEGATIVE [facility] Comment on above: Performed By: #### U ACSSHAHEEN UMICRO #### [facility] [address] [address] [address] Volodymyr Paez LEUKOCYTES SMALL Abnormal NEGATIVE [facility] Comment on above: Performed By: #### U ACSSHAHEEN UMICRO #### [facility] [address] [address] [address] Volodymyr Paez Nitrite Ql (U) Negative Normal NEGATIVE [facility] Comment on above: Performed By: #### U ACSSHAHEEN UMICRO #### [facility] [address] [address] [address] Volodymyr Paez pH (U) 7.0 [pH] Normal 5-9 [facility] Comment on above: Performed By: #### U VERA UMICRO #### [facility] [address] [place] [address] Dr. Volodymyr Paez SPEC GRAVITY 1.020 Normal 1.005-<=1.[address] [facility] Comment on above: Performed By: #### U VERA UMICRO #### [facility] [address] [place] [address] Dr. Volodymyr Paez UA PROTEIN Negative Normal NEGATIVE/ TRACE [facility] Comment on above: Performed By: #### U VERA UMICRO #### [facility] [address] [place] [address] Dr. Volodymyr Paez UR MICRO IND INDICATED Normal [facility] Comment on above: Performed By: #### U VERA UMICRO #### [facility] [address] [address] [address] Volodymyr Paez Urobilinogen Qn (U) 0.2 {Leta'U}/dL Normal 0.2 - 1. 0 [facility] Comment on above: Performed By: #### U VERA UMICRO #### [facility] [address] [place] [address] Dr. Volodymyr Paez URINE MICROSCOPIC ONLYon BACTERIA SMALL Abnormal NONE SEEN [facility] Comment on above: Performed By: #### U VERA UMICRO #### [facility] [address] [place] [address] Dr. Volodymyr Paez Bacteria identified Cx Nom (U) INDICATED Normal [facility] Comment on above: Performed By: #### U ACSSHAHEEN, UMICRO #### [facility] [address] [place] [address] Dr. Volodymyr Paez CAST NONE SEEN Normal NONE SEEN [facility] Comment on above: Performed By: #### U ACSSHAHEEN, UMICRO #### [facility] [address] [place] [address] Dr. Volodymyr Paez Crystals LM Nom (Urine sed) NONE SEEN Normal NONE SEEN [facility] Comment on above: Performed By: #### U ACSSHAHEEN, UMICRO #### [facility] [address] [place] [address] Dr. Volodymyr Paez Epithelial cells LM Ql (Urine sed) MODERATE Abnormal NONE SEEN /RARE [facility] Comment on above: Performed By: #### U ACSSHAHEEN, UMICRO #### [facility] [address] [place] [address] Dr. Volodymyr Paez MUCOUS TRACE Abnormal NONE SEEN [facility] Comment on above: Performed By: #### U ACSSHAHEEN, UMICRO #### [facility] [address] [place] [address] Dr. Volodymyr Paez RBC 2-5 Abnormal 0-2 [facility] Comment on above: Performed By: #### U ACSSHAHEEN, UMICRO #### [facility] [address] [place] [address] Dr. Volodymyr Paez WBC 10-20 Abnormal NONE SEEN [facility] Comment on above: Performed By: #### U ACSSHAHEEN, UMICRO #### [facility] [address] [place] [address] Dr. Volodymyr Paez LAMOTRIGINEon 08-13-2022 Lamotrigine, Serum 11.2 ug/mL Normal 2.0-20.0 [facility] Comment on above: Result Comment: Dete ction Limit = 1.0 Performed By: #### T SH, CMP #### [facility] [address] [place] [address] Dr. Volodymyr Paez CBC AUTO DIFFon 08-09-2022 BASO # 0.0 103/ul Normal 0.0-0.1 [facility] Comment on above: Performed By: #### C BC #### [facility] [address] [place] [address] Dr. Volodymyr Paez Basophils/100 WBC (Bld) 0.4 % Normal 0.2-2.0 [facility] Comment on above: Performed By: #### C BC #### [facility] [address] [place] [address] Dr. Volodymyr Paez EO # 0.4 103/ul Normal 0.0-0.7 [facility] Comment on above: Performed By: #### C BC #### [facility] [address] [place] [address] Dr. Volodymyr Paez Eosinophils/100 WBC (Bld) 4.3 % Normal 0.9-7.0 [facility] Comment on above: Performed By: #### C BC #### [facility] [address] [place] [address] Dr. Volodymyr Paez Erythrocyte distribution width (RBC) [Ratio] 13.2 % Normal 11.0-15.0 [facility] Comment on above: Performed By: #### C BC #### [facility] [address] [place] [address] Dr. Volodymyr Paez Hematocrit (Bld) [Volume fraction] 40.2 % Normal 36.0-48.0 [facility] Comment on above: Performed By: #### C BC #### [facility] [address] [place] [address] Dr. Volodymyr Paez Hemoglobin (Bld) [Mass/Vol] 13.8 g/dL Normal 12.0-16.0 [facility] Comment on above: Performed By: #### C BC #### [facility] [address] [place] [address] Dr. Volodymyr Paez IG # 0.02 10e3/ul Normal 0.00-0.03 [facility] Comment on above: Performed By: #### C BC #### [facility] [address] [place] [address] Dr. Volodymyr Paez IG % 0.2 % Normal 0.0-0.5 [facility] Comment on above: Performed By: #### C BC #### [facility] [address] [place] [address] Dr. Volodymyr Paez LYMPH # 4.3 103/ul Critically high 1.2-3.[address] [facility] Comment on above: Performed By: #### C BC #### [facility] [address] [place] [address] Dr. Volodymyr Paez Lymphocytes/100 WBC (Bld) 51.8 % Normal 20.5-60.0 [facility] Comment on above: Performed By: #### C BC #### [facility] [address] [place] [address] Dr. Volodymyr Paez MANUAL DIFF REQ NO Normal [facility] Comment on above: Performed By: #### C BC #### [facility] [address] [place] [address] Dr. Volodymyr Paez MCH (RBC) [Entitic mass] 31.0 pg Normal 26.7-34.0 [facility] Comment on above: Performed By: #### C BC #### [facility] [address] [place] [address] Dr. Volodymyr Paez MCHC (RBC) [Mass/Vol] 34.3 g/dL Normal 29.9-35.2 [facility] Comment on above: Performed By: #### C BC #### [facility] [address] [place] [address] Dr. Volodymyr Paez MCV (RBC) [Entitic vol] 90.3 fL Normal 81.0-99.0 [facility] Comment on above: Performed By: #### C BC #### [facility] [address] [place] [address] Dr. Volodymyr Paez MONO # 0.9 103/ul Critically high 0.3-0.[address] [facility] Comment on above: Performed By: #### C BC #### [facility] [address] [place] [address] Dr. Volodmyyr Paez Monocytes/100 WBC (Bld) 10.4 % Normal 1.7-12.0 [facility] Comment on above: Performed By: #### C BC #### [facility] [address] [place] [address] Dr. Volodymyr Paez NEUT # 2.7 103/ul Normal 1.4-6.5 [facility] Comment on above: Performed By: #### C BC #### [facility] [address] [place] [address] Dr. Volodymyr Paez Neutrophils/100 WBC (Bld) 32.9 % Critically low 43.0-75.0 [facility] Comment on above: Performed By: #### C BC #### [facility] [address] [place] [address] Dr. Volodymyr Paez Platelet mean volume (Bld) [Entitic vol] 10.3 fL Normal 9.5-13.5 [facility] Comment on above: Performed By: #### C BC #### [facility] [address] [place] [address] Dr. Volodymyr Paez PLT 231 103/ul Normal 150-450 [facility] Comment on above: Performed By: #### C BC #### [facility] [address] [place] [address] Dr. Volodymyr Paez RBC 4.45 106/ul Normal 4.20-5.40 [facility] Comment on above: Performed By: #### C BC #### [facility] [address] [place] [address] Dr. Volodymyr Paez WBC 8.2 103/ul Normal 4.0-11.0 [facility] Comment on above: Performed By: #### C BC #### [facility] [address] [place] [address] Dr. Volodymyr Paez DEPAKENE/ VALPROIC ACIDon DEPAKENE 80.3 ug/ml Normal 50.0-100.0 [facility] Comment on above: Performed By: #### V ALP #### [facility] [address] [place] [address] Dr. Volodymyr Paez US THYROIDon 07-10-2022 US [...] 6 mm. No follow-up required TI-RADS: The [employer] TI-RADS committee's white paper recommendations for thyroid lesions classified as TR4 (moderately suspicious) are listed below: > 1.0 cm. Follow-up ultrasound in 1, 2, 3, and 5 years. > 1.5 cm. FNA. J. Am Chidi Radiol 2017;14:[id number]. Electronically authenticated by: MATILDE WATERMAN Date: 2022-07-10 13:01 Normal [facility] LAMOTRIGINEon 06-29-2022 Lamotrigine, Serum 14.2 ug/mL Normal 2.0-20.0 [facility] Comment on above: Result Comment: Dete ction Limit = 1.0 Performed By: #### T AKIKO, CMP #### [facility] [address] [place] [address] Dr. Volodymyr Paez CBC AUTO DIFFon 06-27-2022 BASO # 0.1 103/ul Normal 0.0-0.1 [facility] Comment on above: Performed By: #### T AKIKO, CMP #### [facility] [address] [place] [address] Dr. Volodymyr Paez Basophils/100 WBC (Bld) 0.7 % Normal 0.2-2.0 [facility] Comment on above: Performed By: #### T AKIOK, CMP #### [facility] [address] [place] [address] Dr. Volodymyr Paez EO # 0.4 103/ul Normal 0.0-0.7 [facility] Comment on above: Performed By: #### T AKIKO, CMP #### [facility] [address] [place] [address] Dr. Volodymyr Paez Eosinophils/100 WBC (Bld) 5.1 % Normal 0.9-7.0 [facility] Comment on above: Performed By: #### T AKIKO, CMP #### [facility] [address] [place] [address] Dr. Volodymyr Paez Erythrocyte distribution width (RBC) [Ratio] 13.1 % Normal 11.0-15.0 [facility] Comment on above: Performed By: #### T AKIKO, CMP #### [facility] [address] [place] [address] Dr. Volodymyr Paez Hematocrit (Bld) [Volume fraction] 39.7 % Normal 36.0-48.0 [facility] Comment on above: Performed By: #### T AKIKO, CMP #### [facility] [address] [place] [address] Dr. Volodymyr Paez Hemoglobin (Bld) [Mass/Vol] 13.3 g/dL Normal 12.0-16.0 [facility] Comment on above: Performed By: #### T AKIKO, CMP #### [facility] [address] [place] [address] Dr. Volodymyr Paez IG # 0.02 10e3/ul Normal 0.00-0.03 [facility] Comment on above: Performed By: #### T AKIKO, CMP #### [facility] [address] [place] [address] Dr. Volodymyr Paez IG % 0.3 % Normal 0.0-0.5 [facility] Comment on above: Performed By: #### T AKIKO, CMP #### [facility] [address] [place] [address] Dr. Volodymyr Paez LYMPH # 3.6 103/ul Normal 1.2-3.8 [facility] Comment on above: Performed By: #### T AKIKO, CMP #### [facility] [address] [place] [address] Dr. Volodymyr Paez Lymphocytes/100 WBC (Bld) 47.4 % Normal 20.5-60.0 [facility] Comment on above: Performed By: #### T SH, CMP #### [facility] [facility] [address] [place] [address] Dr. Volodymyr Paez MANUAL DIFF REQ NO Normal [facility] Comment on above: Performed By: #### T SH, CMP #### [facility] [address] [place] [address] Dr. Volodymyr Paez MCH (RBC) [Entitic mass] 30.3 pg Normal 26.7-34.0 [facility] Comment on above: Performed By: #### T SH, CMP #### [facility] [address] [place] [address] Dr. Volodymyr Paez MCHC (RBC) [Mass/Vol] 33.5 g/dL Normal 29.9-35.2 [facility] Comment on above: Performed By: #### T SH, CMP #### [facility] [address] [place] [address] Dr. Volodymyr Paez MCV (RBC) [Entitic vol] 90.4 fL Normal 81.0-99.0 [facility] Comment on above: Performed By: #### T AKIKO, CMP #### [facility] [address] [place] [address] Dr. Volodymyr Paez MONO # 0.9 103/ul Critically high 0.3-0.[address] [facility] Comment on above: Performed By: #### T SH, CMP #### [facility] [address] [place] [address] Dr. Volodymyr Paez Monocytes/100 WBC (Bld) 11.3 % Normal 1.7-12.0 [facility] Comment on above: Performed By: #### T SH, CMP #### [facility] [address] [place] [address] Dr. Volodymyr Paez NEUT # 2.7 103/ul Normal 1.4-6.5 [facility] Comment on above: Performed By: #### T SH, CMP #### [facility] [address] [place] [address] Dr. Volodymyr Paez Neutrophils/100 WBC (Bld) 35.2 % Critically low 43.0-75.0 [facility] Comment on above: Performed By: #### T SH, CMP #### [facility] [address] [place] [address] Dr. Volodymyr Paez Platelet mean volume (Bld) [Entitic vol] 11.4 fL Normal 9.5-13.5 [facility] Comment on above: Performed By: #### T SH, CMP #### [facility] [address] [place] [address] Dr. Volodymyr Paez PLT 96 103/ul Critically low 150-450 [facility] Comment on above: Result Comment: slid e made; no plt clumps seen Performed By: #### T SH, CMP #### [facility] [address] [place] [address] Dr. Volodymyr Paez RBC 4.39 106/ul Normal 4.20-5.40 [facility] Comment on above: Performed By: #### T SH, CMP #### [facility] [address] [place] [address] Dr. Volodymyr Paez WBC 7.6 103/ul Normal 4.0-11.0 [facility] Comment on above: Performed By: #### T SH, CMP #### [facility] [address] [place] [address] Dr. Volodymyr Paez FREE T4on 06-27-2022 Free T4 [Mass/Vol] 1.45 ng/dL Normal 0.76-1.46 [facility] Comment on above: Performed By: #### F T4 #### [facility] [address] [place] [address] Dr. Volodymyr Paez PROF 14(COMP METB)on 023 Albumin [Mass/Vol] 3.2 g/dL Critically low 3.4-5.0 [facility] Comment on above: Performed By: #### T SH, CMP #### [facility] [address] [place] [address] Dr. Volodymyr Paez Albumin/Globulin [Mass ratio] 0.7 {ratio} Normal [facility] Comment on above: Performed By: #### T SH, CMP #### [facility] [address] [place] [address] Dr. Volodymyr Paez ALP [Catalytic activity/Vol] 65 U/L Normal 46-116 [facility] Comment on above: Performed By: #### T SH, CMP #### [facility] [address] [place] [address] Dr. Volodymyr Paez ALT [Catalytic activity/Vol] 20 U/L Normal 14-59 [facility] Comment on above: Performed By: #### T SH, CMP #### [facility] [address] [place] [address] Dr. Volodymyr Paez Anion gap [Moles/Vol] 11.3 mmol/L Normal [facility] Comment on above: Performed By: #### T AKIKO, CMP #### [facility] [address] [place] [address] Dr. Volodymyr Paez AST [Catalytic activity/Vol] 25 U/L Normal 15-37 [facility] Comment on above: Performed By: #### T SH, CMP #### [facility] [address] [place] [address] Dr. Volodymyr Paez Bilirubin [Mass/Vol] 0.3 mg/dL Normal 0.2-1.0 [facility] Comment on above: Performed By: #### T AKIKO, CMP #### [facility] [address] [place] [address] Dr. Volodymyr Paez Calcium [Mass/Vol] 9.5 mg/dL Normal 8.5-10.1 [facility] Comment on above: Performed By: #### T SH, CMP #### [facility] [address] [place] [address] Dr. Volodymyr Paez Chloride [Moles/Vol] 100 mmol/L Normal 98-107 [facility] Comment on above: Performed By: #### T SH, CMP #### [facility] [address] [place] [address] Dr. Volodymyr Paez CO2 [Moles/Vol] 30.1 mmol/L Normal 21.0-32.0 [facility] Comment on above: Performed By: #### T SH, CMP #### [facility] [address] [place] [address] Dr. Volodymyr Paez Creatinine [Mass/Vol] 0.92 mg/dL Normal 0.55-1.02 [facility] Comment on above: Performed By: #### T SH, CMP #### [facility] [address] [address] [address] Volodymyr Paez EGFR-AF NICARAGUAN >60 Normal >=60 [facility] Comment on above: Performed By: #### T SH, CMP #### [facility] [address] [place] [address] Dr. Volodymyr Paez EGFR-NON AF NICARAGUAN >60 Normal >=60 [facility] Comment on above: Performed By: #### T SH, CMP #### [facility] [address] [place] [address] Dr. Volodymyr Paez Globulin (S) [Mass/Vol] 4.4 g/dL Normal [facility] Comment on above: Performed By: #### T SH, CMP #### [facility] [address] [place] [address] Dr. Volodymyr Paez Glucose [Mass/Vol] 76 mg/dL Normal 74-106 [facility] Comment on above: Performed By: #### T SH, CMP #### [facility] [address] [place] [address] Dr. Volodymyr Paez Potassium [Moles/Vol] 4.4 mmol/L Normal 3.5-5.1 [facility] Comment on above: Performed By: #### T SH, CMP #### [facility] [address] [place] [address] Dr. Volodymyr Paez Protein [Mass/Vol] 7.6 g/dL Normal 6.4-8.2 [facility] Comment on above: Performed By: #### T SH, CMP #### [facility] [address] [place] [address] Dr. Volodymyr Paez Sodium [Moles/Vol] 137 mmol/L Normal 136-145 [facility] Comment on above: Performed By: #### T SH, CMP #### [facility] [address] [address] [address] Volodymyr Paez Urea nitrogen [Mass/Vol] 7.0 mg/dL Normal 7.0-18.0 [facility] Comment on above: Performed By: #### T SH, CMP #### [facility] [address] [address] [address] Volodymyr Paez Urea nitrogen/Creatinine [Mass ratio] 7.6 mg/mg Normal [facility] Comment on above: Performed By: #### T SH, CMP #### [facility] [address] [place] [address] Dr. Volodymyr Paez TSHon 06-27-2022 TSH 0.099 uIU/mL Critically low 0.358-3.740 [facility] Comment on above: Performed By: #### T AKIKO, CMP #### [facility] [address] [place] [address] Dr. Volodymyr Paez DEPAKENE/ VALPROIC ACIDon DEPAKENE 72.4 ug/ml Normal 50.0-100.0 [facility] Comment on above: Performed By: #### T AKIKO, CMP #### [facility] [address] [place] [address] Dr. Volodymyr Paez US THYROIDon 10-25-2021 US [...] screening is still recommended. TR 4: The [employer] TI-RADS committee's white paper recommendations for thyroid lesions classified as TR4 (moderately suspicious) are listed below: > 1.0 cm. Follow-up ultrasound in 1, 2, 3, and 5 years. > 1.5 cm. FNA. J. Am Chidi Radiol 2017;14:587-595. Electronically authenticated by: PETE MENDOZA Date: 2021-10-25 09:31 Normal [facility] FREE T4on 10-24-2021 Free T4 [Mass/Vol] 1.08 ng/dL Normal 0.76-1.46 [facility] Comment on above: Performed By: #### T SH, CMP #### [facility] [address] [place], [place] [address] Dr. Volodymyr Paez TSHon 10-24-2021 TSH 12.719 uIU/mL Critically high 0.358-3.740 [facility] Comment on above: Performed By: #### T SH #### [facility] [address] [place], [place] [address] Dr. Volodymyr Paez Vital Signs Date Time Vital Sign Value Performing Clinician Faci lity 01-21-2024 11:05-0400 Diastolic blood pressure 72 mm[Hg] Edson AMADOR Work Phone: [facility] 01-21-2024 11:05-0400 Heart rate 92 /min Edson AMADOR Work Phone: [facility] 01-21-2024 11:05-0400 Respiratory rate 16 /min Edson AMADOR Work Phone: [facility] 01-21-2024 11:05-0400 SaO2% (BldA) [Mass fraction] 96 % Edson AMADOR Work Phone: [facility] 01-21-2024 11:05-0400 Systolic blood pressure 118 mm[Hg] Edson AMADOR Work Phone: [facility] Healthcare Encounters Encounter Date Encounter Type Care Provider Facility Start: 01-21-2024 End: 01-21-2024 Bamboo flowsheet Edson AMADOR Work Phone: [facility] Start: 01-21-2024 End: 01-21-2024 Bamboo flowsheet Edson Martinez PA Work Phone: [employer] [address] Start: 01-21-2024 End: 01-21-2024 ambulatory EDSON MARTINEZ Not Available Start: 01-21-2024 End: 01-21-2024 Office outpatient visit 15 minutes Edson Martinez PA Work Phone: [facility] [employer] [facility] Comment on above: Seizure disorder (CM S/HCC) (Primary Dx); Mental deficiency (CMS/HCC); Autism (CMS/HCC); Pseudobulbar affect; Gait instability Start: 12-27-2023 End: 12-27-2023 Admission to same day surgery center Mike Weber DDS Work Phone: [facility] Start: 10-01-2023 End: 10-01-2023 ambulatory EDSON MARTINEZ Not Available Start: 08-06-2023 End: 08-06-2023 ambulatory EDSON MARTINEZ Not Available Start: 08-29-2022 End: 08-30-2022 ambulatory [...] Telephone encounter Martha dill DMD Work Phone: [facility] Comment on above: Dental Start: 04-03-2022 End: 04-04-[address] ADRIEL TILLEY Facility:[facility] Start: 03-13-2022 End: 03-18-2022 Patient encounter procedure Martha Coreas DMD Work Phone: [facility] Start: 10-24-2021 End: 10-25-[address] DOCTOR JAVED Facility: Start: 11-07-2016 End: 11-08-2016 Ambulatory DEFAULT PHYSICIAN Facility:[facility] Plan of Treatment Date Care Activity Detail Author Start: 2043 Shingles (RZV) Vacci ne (1 of 2) Shingles (RZV) Vaccine (1 of 2) [facility] Start: 05-12-2024 End: 05-12-2024 Patient encounter procedure 05/12/2024 11:20 AM EST Office Visit [facility] [address] [place] [address] Edson Martinez PA [address] [place] [address] [facility] Start: 03-02-2024 Subsequent hospital visit by physician 03/02/2024 Hospital Encounter [facility] Ambulatory Surgery [address] [place], [place] [id number] Elmer Topete, DDS [address] [place] [address] [facility] Ambulatory Surgery Start: 02-05-2024 End: 02-05-2024 Patient encounter procedure 02/05/2024 9:15 AM EDT Office Visit [facility] Pre-Admission Testing [address] [place], [place] [id number] Refugio Ferrell, INSTRUMENT MAK[employer] [address] [place] [address] [facility] Pre-Admission Testing Start: 01-21-2024 Influenza vaccination Influenza Vacc ine (#1) [facility] Start: 01-21-2024 End: 01-20-2025 Lamotrigine level Lamotrigine level Lab Routine Seizure disorder (CMS/HCC) Expected: 01/21/2024 (Approximate), Expires: 01/20/2025 [facility] Work Phone: Comment on above: Expected: 01/21/2024 (Approximate), Expires: 01/20/2025 Start: 01-21-2024 End: 01-20-2025 Valproic acid level, total Valproic acid level, total Lab Routine Seizure disorder (CMS/HCC) Expected: 01/21/2024 (Approximate), Expires: 01/20/2025 [facility] Healthcare Comment on above: Expected: 01/21/2024 (Approximate), Expires: 01/20/2025 Start: 12-22-2023 COVID-19 Vaccine ( season) COVID-19 Vaccine ( season) [facility] Start: 12-22-2023 Influenza vaccination Influenza Vacc ine (#1) [facility] Start: 2023 Screening for malign ant neoplasm of cervix [facility] Start: 01-20-2022 Influenza vaccination Influenza Vacc ine (#1) [facility] Start: 07-19-2020 COVID-19 Vaccine (3 - Booster for Pfizer series) COVID-19 Vaccine (3 - Booster for Pfizer series) [facility] Start: 01-02-2020 HPV Vaccine (optiona l start 27-45 years) HPV Vaccine (optional start 27-45 years) [facility] Start: 2014 Screening for malign ant neoplasm of cervix Pap Smear [facility] Start: 12-21-2013 Annual wellness visit Annual [facility] Visit ([id number]) [facility] Start: 01-02-2012 Hepatitis A (HAV) Vaccine (optional start 19+ years) Hepatitis A (HAV) Vaccine (optional start 19+ years) [facility] Start: 01-02-2012 Hepatitis B vaccination Hepati tis B (HBV) Vaccine (1 of 3 - 19+ 3-dose series) [facility] Start: 2011 Hepatitis C screening Hepatitis C An tibody [facility] Start: 2011 Tetanus + diphtheria + acellular pertussis vaccine (product) Tdap Booster [facility] Start: 01-02-2008 HIV screening [facility] Start: 1993 Medicare Annual Wellness (AWV) Medicare Annual Wellness (AWV) [facility] DENTAL RESTORATIONS DENTAL MEENA RATIONS Routine scheduled Caries [facility] Payers Date Payer Category Payer Unknown 2013 Medicaid [id number] 2012 Medicare [id number] 1993 Unknown [id number] 2.16.84 [id number] 1993 Unknown [id number] 2.16.84 [id number] 1993 Unknown [id number] 2.16.84 [id number] 1959 Medicaid [id number] 1959 Medicare [id number] 1954 Unknown [id number] 2.16.84 [id number] 1954 Unknown [id number] 2.16.84 [id number] 1954 Unknown [id number] 2.16.84 [id number] 1954 Unknown [id number] 2.16.84 [id number] 1954 Unknown [id number] 2.16.84 [id number] 1954 Unknown [id number] 2.16.84 [id number] 1954 Unknown [id number] 2.16.84 [id number] 1954 Unknown [id number] 2.16.84 [id number] Social History Date Type Detail Facility Tobacco smoking stat [facility] Tobacco smoking consumption unknown [facility] Start: 1995 Sex Assigned At Not on file [facility] Start: 10-01-2023 End: 01-21-2024 Gender identity Not on file [facility] Start: 08-06-2023 Tobacco smoking stat us NHIS Never smoked tobacco [facility] Start: 08-06-2023 Tobacco use and exposure Smokeless t obacco non-user [facility] Start: 10-01-2023 End: 01-21-2024 Alcoholic beverage intake Lifetime non-drinker (finding) [facility] Start: 10-01-2023 End: 01-21-2024 History of Social function [facility] Note 04-30-2022 Telephone Encounter - Liliana Song - 04/30/2022 3:03 PM EST Note Date & Type Note Facility 04-30-2022 Miscellaneous Notes Formattin g of this note might be different from the original. Bina from [facility] calling in. She wanted to [...] be different from the original. Bina from [facility] calling in. She wanted to know where the pt was at on the OR wait list. E-mail sent to Connie E-mail sent 04/30/22 [facility] History of Present illness Narrative 03-13-2022 Martha Coreas DMD - 03/13/2022 10:06 AM EST Note Date & Type Note Facility 03-13-2022 History of Presen t illness Narrative ----- Sunday, March 13, 2022 at 11:58:40 AM ----- ----- Provider: [id number] Coreas DMD -- Clinic: [place] ----- OR EVALUATION Patient presents for evaluation [...] time slot becomes available. Legal Guardian: Toshia Ascencio Phone #: [phone] NOTE: Patient had a hard time leaning her head back, but allowed me to look. Patient not indicating she is in any pain. #8 is very discolored - most likely will need RCT treatment. Gingiva very red and irritated. Caregiver did not know who patient's guardian was or contact information, looked it up in Identify. Next Visit: OR documented in this encounter [facility] Evaluation note Note Date & Type Note Facility Evaluation note Diagnosis Caries- Primary Unspecified dental caries documented in this encounter [facility] Evaluation note Note Date & Type Note Facility Evaluation note Diagnosis Caries- Primary Unspecified dental caries Caries- Primary Unspecified dental caries [facility] Evaluation note Note Date & Type Note Facility Evaluation note Diagnosis Seizure disorder ([facility])- Primary Unspecified epilepsy without mention of intractable epilepsy Mental deficiency ([facility]) Unspecified mental retardation Autism ([facility]) Autistic disorder, current or active state Pseudobulbar affect Gait instability Abnormality of gait documented in this encounter [facility] Summary Purpose Family History No Family History Records FoundNo Family History Records FoundNo Family History Records FoundNo Family History Records Found Advance Directives No Advanced Directives Records FoundNo Advanced Directives Records FoundNo Advanced Directives Records FoundNo Advanced Directives Records Found Reason for Referral Specialty Diagnoses / Procedures Referred By Alessandro azul Referred To Contact Anesthesiology Diagnoses Caries Elmer Topete, DDS [address] [place] [address] [facility] PRE ADMISSION TESTING [address] [place] [address] Referral ID Status Reason Start Date Expiration Date V isits Requested Visits Authorized [id number] Authorized 12/27/2023 12/26/2024 1 1 Scheduling Instructions Your surgical team will reach out to you to schedule a pre-admission testing appointment. Question Answer Reason for consult? Recommended PAT Risk Score Additional Source Comments INFORMATION SOURCE (unrecogn ized section and content) DATE CREATED AUTHOR 10/16/2017 [facility] DATE CREATED AUTHOR AUTHOR'S ORGANIZ ATION 09/02/2022 [facility] DATE CREATED AUTHOR AUTHOR'S ORGANIZ ATION 01/10/2024 [facility] [employer] [facility] DATE CREATED AUTHOR AUTHOR'S ORGANIZ ATION 01/22/2024 [facility] EPIC Reason for Visit (unrecogniz ed section and content) Reason Onset Date Comments Dental 04/30/2022 Reason Comments Seizures Care Teams (unrecognized sec tion and content) Zone Supervisor Firearms Relationship Specialty Start Date End Date Unallocated, May Schneider MD [address] [place] [address] PCP - General Family Medicine 07/09/23 Pete Mcguire MD [address] [place] [address] Referring Physician Neurology 07/09/23 Zone Supervisor Firearms Relationship Specialty Start Date End Date Unallocated, May Schneider MD [address] [place] [address] PCP - General Family Medicine 07/09/23 Pete Mcguire MD [address] [place] [address] Referring Physician Neurology 07/09/23 FOR RECORDS PERTAINING TO PATIENTS WHO ARE [...] BE BASED ON THE PRIMARY CLINICAL RECORDS. [facility] [employer] [facility]. provides no warranty or guarantee of the accuracy or completeness of information in this document.
[2024-01-28 09:01] LABS: Thyroid Stimulating Hormone 7.461 uIU/mL (0.358-3.740)
[2024-01-28 11:18] LABS: Free T4 0.81 ng/dL (0.76-1.46)
== END 2024-01-28 06:50 | disposition home or self-care (01) ==
LOC: LAB 06:50
PROVIDERS: PCP Family Medicine; Visit Provider Family Medicine
DX: E03.9 Hypothyroidism, unspecified (principal); Z79.899 Other long term (current) drug therapy
CPT/HCPCS: 36415; 84439; 84443

== ENCOUNTER 2024-03-25 07:04 | Outpatient (OUT) | payer MEDICARE, MEDICAID, SELFPAY ==
--- OUTSIDE RECORDS SUMMARY | 2024-03-25 07:08 | XMS_ITS | CCD ---
Author Organization [facility] CliniSyme Care Team Providers Care Relay Tester Name Role Phone PHYSICIAN, DEFAULT Unavailable Unavailable PHYSICIAN, DEFAULT Unavailable Unavailable PB BARTH Unavailable Unavailable Unavailable Primary Care Provider Unavailabl e TILLEY, DR NATHAN Craft Admitting Unavailable TILLEY, DR NATHAN Craft Attending Unavailable TILLEY, DR NATHAN Craft Primary Care Unavailable TILLEY, DR NATHAN Craft Consulting Unavailable MISC, DR HERNANDEZ Admitting Unavailable MISC, DR HERNANDEZ Attending Unavailable TILLEY, DR NATHAN Craft Primary Care Unavailable MISC, DR HERNANDEZ Consulting Unavailable TILLEY, DR NATHAN Craft Admitting Unavailable TILLEY, DR NATHAN Craft Attending Unavailable TILLEY, DR NATHAN Craft Primary Care Unavailable TILLEY, DR NATHAN Craft Consulting Unavailable MISC, DR HERNANDEZ Admitting Unavailable MISC, DR HERNANDEZ Attending Unavailable REQUEST, DR OROZCO LISTED Primary Care Unavaila ble MISC, DR HERNANDEZ Consulting Unavailable ZIEBER, DR KRIS White Consulting Unavailable TILLEY, DR NATHAN Craft Admitting Unavailable TILLEY, DR NATHAN Craft Attending Unavailable REQUEST, DR OROZCO LISTED Primary Care Unavaila ble TILLEY, DR NATHAN Craft Consulting Unavailable HAY ., DR BLOCK Consulting Unavailable HAY ., DR BLOCK Admitting Unavailable HAY ., DR BLOCK Attending Unavailable TILLEY, DR NATHAN Craft Primary Care Unavailable REQUEST, DR OROZCO LISTED Primary Care Unavaila ble TILLEY, DR NATHAN Craft Admitting Unavailable TILLEY, DR NATHAN Craft Attending Unavailable TILLEY, DR NATHAN Craft Consulting Unavailable MISC, DR HERNANDEZ Admitting Unavailable MISC, DR HERNANDEZ Attending Unavailable REQUEST, DR OROZCO LISTED Primary Care Unavaila ble WEST, DR MATILDE Stanley Consulting Unavailable MISC, DR HERNANDEZ Consulting Unavailable Unavailable Primary Care Provider Unavailabl e Andersonlocated , May Provider Primary Care Provi roselyn Kris Mcguire MD Unavailable Andersonlocated May OLSON Provider Primary Care Provi roselyn ELMER TOPETE Attending Unavailable PROVIDER, UNKNOWN Admitting Unavailable PROVIDER, UNKNOWN Admitting Unavailable PROVIDER, UNKNOWN Attending Unavailable ELMER TOPETE Admitting Unavailable ELMER TOPETE Attending Unavailable Nathan Tilley MD Primary Care Provider RADHA MARTINEZ Attending Unavailable RADHA MARTINEZ Attending Unavailable RADHA MARTINEZ Attending Unavailable LAI ALVARADO Attending Unavailable Allergies Allergy Classification Reported Allergen(s) Allergy Type Date of Onset Reaction(s) Facility (19 sources) Ethosuximide; Translations: [ETHOSUXIMIDE] Drug Allergy 09-15-2014 Rash [facility] (1 source) Allopurinol Drug Allergy 07-16-2013 [facility] (1 source) Ethosuximide Drug Allergy 07-16-2013 [facility] (9 sources) linaclotide; Translations: [LINACLOTIDE] Drug Allergy 08-06-2023 [facility] Medications Current Medications Medication Drug Class(es) Dates Sig (Normalized) Sig (Original) acetaminophen 325 mg oral capsule (7 sources) Acetaminophen (Tylenol) 325 MG CAPS Take by mouth. Active busPIRone hydrochloride 30 mg oral tablet (12 sources) take 1 tablet by mouth in the morning, then take 1 tablet by mouth in the evening, then take 1 tablet by mouth at bedtime busPIRone (Buspar) 30 MG tablet Take 30 mg by mouth in the morning and 30 mg in the evening and 30 mg before bedtime. Active chlorhexidine gluconate 1.2 mg/ml mouthwash (12 sources) Start: 09-15-2014 take 15 mL by mouth twice daily chlorhexidine (PERIDEX) 0.12 % oral solution Take 15 mL by mouth 2 times daily. 1 Bottle 0 09/15/2014 Active cloNIDine hydrochloride 0.2 mg oral tablet (17 sources) Central alpha-2 Adrenergic Agonist cloNIDine (Catapres) 0.2 MG tablet Take 0.2 mg by mouth in the morning and 0.2 mg at noon and 0.2 mg in the evening and 0.2 mg before bedtime. Active CLONIDINE HCL OR AL Take by mouth. Suspended CLONIDINE HCL OR AL Take by mouth. Active CLONIDINE HCL OR AL Take by mouth. 0 Active docusate sodium 100 mg oral capsule (12 sources) take 1 capsule by mouth twice daily docusate sodium (COLACE) 100 MG capsule Take 100 mg by mouth 2 times daily. Active ethinyl estradiol 0.035 mg / norethindrone acetate 1 mg oral tablet (12 sources) Estrogen norethindrone-et hiny l estradiol (Ortho-Novum, Nortrel) 1-35 MG-MCG tablet Take 1 tablet by mouth Daily Active famotidine 40 mg oral tablet (12 sources) Histamine-2 Receptor Antagonist take 1 tablet by mouth once daily famotidine (Pepcid) 40 MG tablet Take 40 mg by mouth Daily Active fluticasone (12 sources) Corticosteroid Fluticasone Propionate (FLONASE NASAL) [place] into each nostril. Suspended Fluticasone Prop ionate (FLONASE NASAL) [place] into each nostril. Active Fluticasone Prop ionate (FLONASE NASAL) [place] into each nostril. 0 Active guanFACINE 2 mg oral tablet (12 sources) Central alpha-2 Adrenergic Agonist take 1 tablet by mouth in the morning guanFACINE (Tenex) 2 MG tablet Take 2 mg by mouth in the morning and 2 mg before bedtime. Active GUANFACINE HCL O RAL Take by mouth. Suspended GUANFACINE HCL O RAL Take by mouth. Active ibuprofen 600 mg oral tablet (12 sources) Nonsteroidal Anti-inflammatory Drug Start: 09-15-2014 take 1 tablet by mouth every six hours as needed for pain ibuprofen (MOTRIN) 600 MG tablet Take 1 Tab by mouth every 6 hours as needed for Pain. 30 Tab 1 09/15/2014 Active ammonium lactate 120 mg/ml topical cream (5 sources) ammonium lactate (Amlactin) 12 % cream Apply 2 application topically Daily Active lactobacillus acidophilus 16 mg oral capsule (12 sources) Lactobacillus (ACIDOPHILUS) CAPS Take by mouth. Active lamoTRIgine 100 mg oral tablet (17 sources) Mood Stabilizer, Anti-epileptic Agent take 1 tablet by mouth at bedtime lamoTRIgine (LaMICtal) 100 MG tablet Take 100 mg by mouth at bedtime Active take 1 tablet by mouth in the mo rning lamoTRIgine (LaMICtal) 150 MG tablet Take 150 mg by mouth in the morning. Active levothyroxine sodium 0.175 mg oral tablet (12 sources) l-Thyroxine take 1 tablet by mouth before mealtime levothyroxine (Synthroid, Levoxyl) 175 MCG tablet Take 175 mcg by mouth in the morning. Take before meals. Active take 1 tablet by mouth once sandra y levothyroxine (SYNTHROID) 200 MCG tablet Take 200 mcg by mouth daily. Active loratadine 10 mg oral tablet (12 sources) take 1 tablet by luly th once daily loratadine (Claritin) 10 MG tablet Take 10 mg by mouth Daily Active melatonin 3 mg disintegratin g oral tablet (12 sources) take 1 tablet by luly th at bedtime Melatonin 3 MG tablet dispersible Take 3 mg by mouth at bedtime Active take 1 tablet by mouth at bedtim e melatonin 3 MG TABS tablet Take 3 mg by mouth at bedtime. Active 2 ml ondansetron 2 mg/ml injection (1 source) Serotonin-3 Receptor Antagonist Start: 03-02-2024 End: 03-02-2024 take 4 mg intravenously once as needed for nausea 4 mg, Intravenous Push, PACU ONCE PRN, Starting on Sat03/02/24 at 0938, Until Sat03/02/24 at 1537, Nausea, Vomiting, PACU Now 24 hr paliperidone 3 mg extended release oral tablet (12 sources) Atypical Antipsychotic take 1 tablet by mouth every twenty-four hours in the morning paliperidone (Invega) 3 MG 24 hr tablet Take 3 mg by mouth in the morning and 3 mg before bedtime. Do not crush, chew, or split.. Active take 2 tablets by mouth once sachin ly paliperidone (INVEGA) 3 MG 24 hour tablet Take 6 mg by mouth daily. Active polyethylene glycol 3350 59261 mg powder for oral solution (12 sources) Osmotic Laxative take 17 g by mouth once daily polyethylene glycol, PEG, 3350 (Miralax) 17 g packet Take 17 g by mouth Daily Active QUEtiapine 200 mg oral tablet (17 sources) Atypical Antipsychotic take 1 tablet by mouth at bedtime QUEtiapine (SEROquel) 200 MG tablet Take 200 mg by mouth at bedtime Active take 1 tablet by mouth at bedtim e QUEtiapine (SEROquel) 400 MG tablet Take 400 mg by mouth at bedtime Active QUEtiapine Fumar ate (SEROQUEL ORAL) Take by mouth. Suspended QUEtiapine Fumar ate (SEROQUEL ORAL) Take by mouth. Active Selenium (SELENIMIN ORAL) (12 sources) Selenium (SELENI MIN ORAL) Take by mouth. Suspended Selenium (SELENI MIN ORAL) Take by mouth. Active Selenium (SELENI MIN ORAL) Take by mouth. 0 Active sennosides, half-way 15 mg oral tablet (12 sources) take 1 tablet by mouth once daily as needed for constipation Sennosides (SENNA) 15 MG tablet Take 1 Tab by mouth daily as needed for Constipation. Active topiramate 25 mg oral tablet (12 sources) take 3 tablets by mouth twice daily topiramate (TOPIRAGEN) 25 MG tablet Take 75 mg by mouth 2 times daily. Active trihexyphenidyl hydrochloride 2 mg oral tablet (12 sources) take 1 tablet by mouth three times daily trihexyphenidyl 2 MG tablet Take 2 mg by mouth 3 times daily. Active divalproex sodium 125 mg delayed release oral tablet (17 sources) Mood Stabilizer, Anti-epileptic Agent take 4 [...] Do not crush, chew, or split. Active take 1 tablet by mouth three gabrielle es daily divalproex (DEPAKOTE) 125 MG EC tablet Take 125 mg by mouth 3 times daily. Active zinc gluconate 50 mg oral ta blet (12 sources) Zinc Gluconate 5 0 MG TABS Take by mouth. Active Completed/Discontinued Medications Medication Drug Class(es) Dates Sig (Normalized) Sig (Original) 1 ml naloxone hydrochloride 0.4 mg/ml injection (2 sources) Opioid Antagonist Start: 03-02-2024 0.4 mg, Intravenous Push, PRN, Starting on Sat03/02/24 at 0937, Until Discontinued, Respiratory Rate Less Than 8 for adults and less than 12 for Peds or for suspected overdose, PACU Now 20 ml sodium chloride 9 mg/ml injection (1 source) Start: 03-02-2024 3 mL, Intravenous Push, PRN, Starting on Sat03/02/24 at 0937, Until Discontinued, For medication administration and blood draw, PACU Now Problems Active Problems Problem Classification Problem Date Documented Date Episodic/Chronic Anxiety disorders (6 sources) Anxiety disorder; Translations: [Anxiety disorder, unspecified] Onset: 09-03-2017 08-06-2023 Chronic Delirium, dementia, and amnestic and other cognitive disorders (8 sources) Pseudobulbar affect; Translations: [Pseudobulbar affect] Onset: 08-06-2023 08-06-2023 Chronic Developmental disorders (8 sources) Intellectual disability; Translations: [Unspecified intellectual disabilities] Onset: 01-15-2024 01-15-2024 Chronic Disorders usually diagnosed in infancy, childhood, or adolescence (8 sources) Autism spectrum disorder; Translations: [Autistic disorder] Onset: 09-03-2017 08-06-2023 Chronic E Codes: Fall (1 source) Fall on same level from slipping, tripping and stumbling with subsequent striking against unspecified object, initial encounter; Translations: [FALL SAME LVL SLIP STRK UNS OBJ INT] Onset: 07-23-2022 Episodic Epilepsy; convulsions (13 sources) Epilepsy, unspecified, not intractable, without status epilepticus; Translations: [Seizure disorder] Onset: 04-08-2022 Chronic Genitourinary symptoms and ill-defined conditions (1 source) Unspecified urinary incontinence; Translations: [UNSPECIFIED URINARY INCONTINENCE] Onset: 08-24-2022 Chronic Genitourinary symptoms and ill-defined conditions (4 sources) Anuria and oliguria; Translations: [ANURIA AND OLIGURIA] Onset: 08-21-2022 Episodic Menopausal disorders (1 source) Hormone replacement therapy; Translations: [HORMONE REPLACEMENT THERAPY] Onset: 07-23-2022 Episodic Mycoses (2 sources) Onychomycosis; Translations: [Tinea unguium] 03-10-2024 Episodic Open wounds of head; neck; and trunk (4 sources) Laceration without foreign body of other part of head, initial encounter; Translations: [LAC W/O FB OTH PART HEAD INIT ENC] Onset: 07-21-2022 Episodic Other aftercare (5 sources) Other rodent exterminator (current) drug therapy; Translations: [OTH SCAFFOLD WORKER CURRENT DRUG THERAPY] Onset: 04-03-2022 Episodic Other connective tissue disease (2 sources) Pain of toe of right foot; Translations: [Pain in right toe(s)] 03-10-2024 Episodic Other connective tissue disease (2 sources) Pain of toe of left foot; Translations: [Pain in left toe(s)] 03-10-2024 Episodic Other diseases of veins and lymphatics (2 sources) Peripheral venous insufficiency; Translations: [Venous insufficiency (chronic) (peripheral)] 03-10-2024 Episodic Other skin disorders (2 sources) Ingrowing nail; Translations: [Ingrowing nail] 03-10-2024 Episodic Superficial injury; contusion (1 source) Contusion of other part of head, initial encounter; Translations: [CONTUS OTH PRT HEAD INITIAL ENCNTR] Onset: 07-23-2022 Episodic Thyroid disorders (13 sources) Hypothyroidism, unspecified; Translations: [Autoimmune thyroiditis] Onset: 06-27-2022 Chronic Unclassified (1 source) NO SHOW 02-05-2024 Past or Other Problems Problem Classification Problem Date Documented Da te Episodic/Chronic Conditions associated with dizziness or vertigo (6 sources) Dizziness; Translations: [Dizziness and giddiness] Onset: 07-03-2018 08-06-2023 Episodic Disorders of teeth and jaw (12 sources) Dental caries; Translations: [Dental caries, unspecified] Onset: 12-27-2023 Resolved: 03-02-2024 12-27-2023 Episodic Other nervous system disorders (8 sources) Abnormal gait; Translations: [Unsteadiness on feet] Onset: 08-06-2023 01-15-2024 Episodic Residual codes; unclassified (6 sources) Personal history of other specified conditions; Translations: [Personal history of other specified diseases] Onset: 09-03-2017 08-06-2023 Episodic Results Test Name Value Interpretation Reference Range Facility Anesthesia Postprocedure [place] 03-02-2024 [facility] Authentication Interface Message Text Anesthesia Postoperative Assessment: Vital Signs (most recent): BP 113/73 (BP Location: right arm) Pulse 113 Temp 36.7 ???C (98.1 ???F) (Temporal) Resp 19 Ht 5' 4 (1.626 m) Wt 136 lb 9.6 oz (62 kg) LMP (LMP Unknown) Comment: hcg negative SpO2 98% BMI 23.45 kg/m??? Anesthesia Post Evaluation Level of consciousness: awake Post-procedure exam normal. Body temperature, hydration status, PONV and pain evaluated and addressed. Pain management: adequate Hydration status: normal PONV:No nausea/vomiting reported Cardiopulmonary status stable Respiratory status: acceptable Cardiovascular status: acceptable ANESTHESIA NOTABLE EVENTS: No notable events documented. Normal [facility] Anesthesia Preprocedure Geovany reis 03-02-2024 [facility] Authentication Interface Message Text ASA: 3 No history of anesthetic complications NPO status: Greater than 8 hours Past Medical History and Review of Systems Pulmonary (+) sleep apnea (-) non-smoker Dental ROS (+) teeth problems missing Endo (+) hypothyroidism (Gato's disease) label tacker - negative ROS Comment: - 03/02/2024 beta-HCG urine negative in the pre-op Neuro/Psych (+) bipolar disorder, anxiety/panic attacks, seizures (lamictal, lamictal treatment), intellectual disability Comment: - Autism Cardiovascular (+) Surgical risk: intermediate; Cardiac condition: no apparent No previous ECG available GI/Hepatic/Renal (+) GERD Heme/Other - negative ROS Other ROS: - Hx. Of tooth extraction 2014, GA, nasal ET #6.5, MAC #3, grade 1 view - Strabismus Physical Exam Airway Mallampati: II TM distance: Adequate Micrognathia: Not present Jaw opening: Adequate Neck flexion: Adequate Dental PE (+) missing teeth Pulmonary - pulmonary exam normal Comment: Chest clear to auscultation bilaterally Cardiovascular - cardiovascular exam normal Comment: RRR with S1S2; no murmurs, gallops, or rubs Neuro Comment: - Minimal verbal interaction, follows commands Plan Anesthesia plan: general; (ETT) Anesthesia risks / alternatives discussed pre-op ( Anesthesia consent obtained and scanned into [facility]. Scheduled for surgery 03/02/2024. ) Questions answered / anesthesia plan accepted ( Anesthesia consent obtained and scanned into [facility]. Scheduled for surgery 03/02/2024. ) Past medical history, surgical history, allergies, and medications reviewed. Pertinent laboratory tests, EKG, imaging, and consults reviewed and I have personally seen and evaluated the patient, repeating cabrera portions of the history and physical examination. Attestation: Anesthesia options were discussed with the patient and/or legal school admissions representative. The risks, benefits and alternatives were reviewed. Questions regarding anesthesia were answered. Patient and/or legal school admissions representative knows such anesthetics and procedures may be performed by Resident physicians, Certified Anesthesiologist Assistants, or Certified Nurse Anesthetists under the supervision of a physician. The patient /or the patient's legal school admissions representative agree with the plan for anesthesia. Comment: Anesthesia consent obtained and scanned into EPIC. Scheduled for surgery 03/02/2024. MHPATFORM Normal [facility] Anesthesia Transfer Of Careo n 03-02-2024 [facility] Authentication Interface Message Text Patient taken to PACU. Patient was awake, comfortable, and stable on arrival. Anesthesia Transfer of Care Note Past Medical History: Past Medical History: Diagnosis Date Alopecia Autism (HCC) Biliary dyskinesia Bipolar disorder (HCC) Constipation Dysphagia Furunculosis BERT (generalized anxiety disorder) GERD (gastroesophageal reflux disease) Gato's disease Hypothyroidism Intellectual disability OCD (obsessive compulsive disorder) ED (obstructive sleep apnea) No CPAP Pervasive developmental disorder (HCC) Seizure (HCC) Strabismus Thyroid nodule Sleep Apnea/Positive STOP-BANG: Yes Problem List: Patient Active Problem List: (none) - all problems resolved or deleted Past Surgical History: Review of patient's past surgical history indicates: EXTRACTION, TOOTH (09/15/2014) Procedure: Wilson teeth; Surgeon: Bradley Goodwin DDS; Location: PERIOPERATIVE SERVICES; Service: Oral EUA, ORAL (09/15/2014) Procedure: EUA, ORAL; Surgeon: Bradley Goodwin DDS; Location: PERIOPERATIVE SERVICES; Service: Oral Allergies: Linzess [linaclotide] and Zarontin [ethosuximide] Basic Operating Room Facts: Surgeon(s): Elmer Topete DDS Anesthesiologist: Milton Luna MD RESORT HOUSEKEEPER: Adalgisa Smith APRN-DARSHAN Operations Support Specialist: Dayanna Preciado MD DENTAL RESTORATIONS (Right: Mouth) Intraoperative Events: No acute event ASA: 3 EBL: 3 mL Urine Not documented Lactated Ringers and NaCl 0.9%: Fluid Totals (Filter: LR and NaCl 0.9% Medications Shown) Medication Calculated Total No medications were administered. Cell Saver: Not documented Blood Volume Values: Blood Products None MTP Blood: MTP PRBC: Not documented MTP FFP: Not documented MTP PLT: Not documented MTP Cryo: Not documented MTP Whole Blood: Not documented Current Vasoactive Medications: {Vasoactive Medications: None Lines, Drains, Airways Peripheral IV Access: 03/02/24 1018 22 gauge Left Hand (Active) Site Assessment WNL;Dressing intact 03/02/24 1020 Infusion Status Port #1 Infusing;Patent 03/02/24 1020 Airway Insertion Details [REMOVED] Advanced Airway: ETT, Nasal #6.5 (Removed) 03/02/24 1020 Pre-Oxygenation/ Induction: Mask Rapid Sequence Induction?: Mask Ventilation: Easy;w/nasal airway Blade Type: Mac Blade Size: 3.5 Visualization: Grade 1 Airway Type: ETT, Nasal Airway Size: #6.5 Post Insertion Assessment: Confirmation: Equal bilateral breath sounds, CO2 confirmed # Attempts >1: Special Equipment: Lalo forceps Present on Admission?: Previously Removed / Not Present: Removal Reason: Not Removed at Discharge: Removed 03/02/24 1155 Location (cm) 28 03/02/24 1020 Measured from: Naris 03/02/24 1020 Secured via: Taped 03/02/24 1020 Site Assessment WNL 03/02/24 1020 All non-working IVs have been removed: N/A Laboratory Data: CBC (last 3 years, up to 8 values) No lab values to display. BMP (last 3 years, up to 8 values) No lab values to display. Basic Metabolic Panel No lab values to display. No results found for: INR No result for BNP LFT's (last 3 years, up to 8 values) No lab values to display. Arterial Blood Gases None Hand off Completed: Yes 1. The patient was identified. 2. Pertinent medical history was relayed. 3. A brief discussion was had about any pertinent surgical/ procedural issues. 4. Intraoperative/ anesthetic management issue and concerns were discussed. 5. Plans for the early post-operative period relayed. 6. An opportunity for questions and acknowledgment of understanding of the report was received. Adalgisa Smith, GAME PROGRAMER-RESORT HOUSEKEEPER Normal [facility] Blood Attestationon 03-02-20 [facility] Authentication Interface Message Text Blood Attestation: ATTESTATION OF INFORMED CONSENT FOR BLOOD: The transfusion of blood and/or blood components were discussed with the patient and/or legal school admissions representative. The risks, benefits and alternatives were reviewed. Questions regarding blood transfusions were answered. The patient /or the patient's legal school admissions representative agree with the plan for transfusion of blood and/or blood components. Normal [facility] Brief Operative Noteon 03-02 [facility] Authentication Interface Message Text Brief Operative Note PHE OR 3 Chantel Ascencio 29 year old female Surgical Contact Serial Number: [id number] Preoperative Diagnosis: Pre-op Diagnosis * Caries [K02.9] Postoperative Diagnosis: * Caries [K02.9] Procedures: Full mouth x-ray [07980] Prophylaxis [18522] Restorations [87337] Floride application [83209] Surgeon(s): Surgeon(s): Elmer Topete DDS Staff: Table Filler Nurse: Trudi Padilla Component Engineer: Paula Contreras DDS; Melquiades Christie DDS Anesthesia: General Anesthesiologist: Milton Luna MD RESORT HOUSEKEEPER: Adalgisa Smith APRN-DARSHAN Operations Support Specialist: Dayanna Preciado MD Specimen(s): * No specimens in log * Estimated Blood Loss: less than 5 cc Lines/Drains: Peripheral IV Access: 03/02/24 1018 22 gauge Left Hand (Active) Site Assessment WNL;Dressing intact 03/02/24 1020 Infusion Status Port #1 Infusing;Patent 03/02/24 1020 Temporarily Retained Foreign Object: No Location: Object: Anticipated removal date: Findings: Normal Complications: None Status at end of surgery: Stable Activity: weight bearing as tolerated Surgical wound class: No wound. Patient Class: Outpatient Surgery. Is this a patient scheduled as an outpatient that needs to be admitted as an inpatient? No Dr. Topete was present in the OR for the critical portion of the procedure and procedure sign-out. Signed by Paula Contreras DDS 03/02/2024 11:48 AM Normal [facility] Progress Noteson 03-02-2024 [facility] Authentication Interface Message Text ----- Saturday, March 02, 2024 at 11:38:59 AM ----- ----- Provider: [id number] Rebolledo DDS -- Clinic: [facility] ----- ANGELICA notes, pt is ready for tx [place]. X-Rays look good, few cavities found and confirmed clinically. restos completed. OP Note by Paula Contreras DDS at 03/01/2024 6:14 PM Author: Paula Contreras DDS Service: Dentistry Author Type: Resident Filed: 03/02/2024 11:56 AM Date of Service: 03/01/2024 6:14 PM Note Type: OP Note Status: Cosign Needed Mechanical System Technician: Paula Contreras DDS (Resident) Cosign Required: Yes Expand All Collapse All Surgical Case Number Data Unavailable Operating Room Data Unavailable Preoperative Diagnosis(es): Caries [k02.9] Surgeon: Dr. Topete Is Analyst Surgeon: Melquiades Arias DDS - Paula Contreras DDS Anesthesia: General- Nasal ETT Estimated Blood Loss: Less than 5 cc IV Fluids: 50 cc Urine Output: Not measured. Findings: The patient was brought to the operating room and placed in the supine position on the operating room table. Following satisfactory induction of GA. The patient was intubated with a nasal endotracheal tube. She was then prepped and drapped in the usual sterile fashion for dental procedures. Full mouth series were then taken and an oral examination was completed. A moistened throat pack was then placed. Full mouth scaling The radiographs were examined by the attending and the resident and used in conjunction with th oral exam to formulate a treatment plan. The restorative aspect of the treatment plan included the following: Composite caodaism on tooth #7 surface ML. Amalgam restorations on teeth #29 O, #30 OL and #31 O surface. These restorations were placed following excavation of the carious lesions on each tooth. The remaining dentition was then polished with prophy paste. The oral cavity was irrigated and suctioned then the throat pack was removed. Fluoride treament was placed on the remaining dentition. The patient tolerated the procedure well was extubated in the operating room, and taken to the PACU in stable condition. Complications: None Status at end of surgery: Stable Medications: Medications Taking No outpatient medications have been marked as taking for the 03/02/24 encounter (Hospital Encounter). Dictated by: Paula Contreras DDS: Dr. Topete was present for the critical portions of the procedure. ----- Signed on Saturday, March 02, 2024 at 11:57:17 AM ----- ----- Provider: [id number] - Elmer Rebolledo DDS -- Clinic: [facility] ----- Normal [facility] URINE HCG-IN OFFICEon 2023 HCG ( test) Ql (U) Negative Negative [facility] Negative Internal Control Negative Negative [facility] Positive Internal Control Positive Positive [facility] URINE HCG-IN OFFICEOrdered B y: Aure Salgado on 03-02-2024 HCG ( test) Ql (U) Negative Negative [facility] Interpretation and review of laboratory results Normal [facility] Negative Internal Control Negative Negative [facility] Positive Internal Control Positive Positive [facility] OP Noteon 03-01-2024 [facility] Authentication Interface Message Text Surgical Case Number Data Unavailable Operating Room Data Unavailable Preoperative Diagnosis(es): Caries [k02.9] Surgeon: Dr. Topete Is Analyst Surgeon: Melquiades Arias DDS - Paula Contreras DDS Anesthesia: General- Nasal ETT Estimated Blood Loss: Less than 5 cc IV Fluids: 50 cc Urine Output: Not measured. Findings: The patient was brought to the operating room and placed in the supine position on the operating room table. Following satisfactory induction of GA. The patient was intubated with a nasal endotracheal tube. She was then prepped and drapped in the usual sterile fashion for dental procedures. Full mouth series were then taken and an oral examination was completed. A moistened throat pack was then placed. Full mouth scaling The radiographs were examined by the attending and the resident and used in conjunction with th oral exam to formulate a treatment plan. The restorative aspect of the treatment plan included the following: Composite caodaism on tooth #7 surface ML. Amalgam restorations on teeth #29 O, #30 OL and #31 O surface. These restorations were placed following excavation of the carious lesions on each tooth. The remaining dentition was then polished with prophy paste. The oral cavity was irrigated and suctioned then the throat pack was removed. Fluoride treament was placed on the remaining dentition. The patient tolerated the procedure well was extubated in the operating room, and taken to the PACU in stable condition. Complications: None Status at end of surgery: Stable Medications: No outpatient medications have been marked as taking for the 03/02/24 encounter (Hospital Encounter). Dictated by: Paula Contreras DDS: Dr. Topete was present for the critical portions of the procedure. Paula Contreras DDS 03/01/2024 6:15 PM Normal [facility] Telephone Encounteron 2023 [facility] Authentication Interface Message Text Anesthesia consent obtained and scanned into K[facility]ji. Scheduled for surgery 03/02/2024. Normal [facility] Telephone Encounteron 2023 [facility] Authentication Interface Message Text Anesthesia consent obtained and scanned into EPIC. Scheduled for surgery 03/02/2024. Normal [facility] PAT Call Historyon [facility] Authentication Interface Message Text Telephone History Chantel Ascencio, [id number] 02/19/2024 Patient was identified by name and date of via Ivon, caregiver. Needs: Physical, Neck Circumference, BHCG, and ED on DOS. Note: OSH records/labs scanned to director of social media marketing. If the patient becomes ill prior to procedure or surgery, they are to call their provider or surgeon's office directly. 29 year old 136.6 lbs 5' 4 Date of Surgery: 03/02 Surgeon: Yoselyn Type of Surgery: DENTAL RESTORATIONS HISTORY OF PRESENT ILLNESS: [email or web address] [address] [place], enter through the [facility] doors. STOP-BANG Row Name 02/19/24 3454 History of sleep apnea? Yes NO PSG found, NO CPAP (Mild ED per Mom) EXERCISE CAPACITY: <4 mets and Uses a wheel chair ALLERGIES: Zarontin [ethosuximide] PREVIOUS ANESTHETIC EXPERIENCES AND INTUBATION HISTORY: No previous anesthetic complication FAMILY HISTORY OF ANESTHETIC COMPLICATIONS: None per Mom PAST MEDICAL HISTORY: Past Medical History: Diagnosis Date Alopecia Autism (HCC) Biliary dyskinesia Bipolar disorder (HCC) Constipation Dysphagia Furunculosis BERT (generalized anxiety disorder) GERD (gastroesophageal reflux disease) Gato's disease Hypothyroidism Intellectual disability OCD (obsessive compulsive disorder) ED (obstructive sleep apnea) No CPAP Pervasive developmental disorder (HCC) Seizure (HCC) Strabismus Thyroid nodule PROBLEM LIST: Patient Active Problem List: Caries [K02.9] Past Medical History and Review of Systems Pulmonary (+) sleep apnea Comment: Denies SOB, wheezes, fever, chills, increased sputum, or general malaise. 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 ROS Neuro/Psych (+) bipolar disorder, seizures, intellectual disability Cardiovascular - negative ROS GI/Hepatic/Renal (+) GERD Heme/Other - negative ROS PAST SURGICAL HISTORY: Past Surgical History: Procedure Laterality Date EUA, ORAL 09/15/2014 Procedure: EUA, ORAL; Surgeon: Bradley Goodwin DDS; Location: PERIOPERATIVE SERVICES; Service: Oral EXTRACTION, TOOTH Bilateral 09/15/2014 Procedure: Wilson teeth; Surgeon: Bradley Goodwin DDS; Location: PERIOPERATIVE SERVICES; Service: Oral SOCIAL HISTORY: Social History Socioeconomic History Marital status: Single Tobacco Use Smoking status: Never Smokeless tobacco: Never Substance and Sexual Activity Alcohol use: Never Drug use: Never PAIN ASSESSMENT: Severity: 0 Location: N/A LABORATORY DATA: Type AND Screen (Last result in the past 30 days) No lab values to display. CBC (last 3 years, up to 8 values) No lab values to display. BMP (last 3 years, up to 8 values) No lab values to display. Basic Metabolic Panel No lab values to display. PT/PTT/INR (last 3 years, up to 8 values) No lab values to display. Arterial Blood Gases None No result for BNP LFT's (last 3 years, up to 8 values) No lab values to display. Urinalysis No lab values to display. Lipids (last 3 years, up to 8 values) No lab values to display. No results found for: TSH No results found for: HBA1C TESTS REVIEWED: CXRay: No Chest x-ray found EKG: Last ECG Date: Not Found ECHO: Echocardiogram date: Not Found No results found for this basename: LVEF Stress test date: Last StressTest: none found going back to 09/10/2014 CURRENT MEDICATION LIST: Current Outpatient Medications Medication Sig Dispense Refill levothyroxine (SYNTHROID) 200 MCG tablet Take 200 mcg by mouth daily. Acetaminophen (Tylenol) 325 MG CAPS Take by mouth. divalproex (DEPAKOTE) 125 MG EC tablet Take 125 mg by mouth 3 times daily. melatonin 3 MG TABS tablet Take 3 mg by mouth at bedtime. norethindrone-ethin yl estradiol (Nortrel , 21,) 1-35 MG-MCG tablet Take 1 Tablet by mouth daily. paliperidone (INVEGA) 3 MG 24 hour tablet Take 6 mg by mouth daily. polyethylene glycol (MIRALAX) packet Dissolve 17 g in 8 ounces of liquid and drink daily. QUEtiapine Fumarate (SEROQUEL ORAL) Take by mouth. busPIRone (BUSPAR) 30 MG tablet Take 30 mg by mouth daily. famotidine (PEPCID) 40 MG tablet Take 40 mg by mouth daily. GUANFACINE HCL ORAL Take by mouth. lamoTRIgine (LaMICtal) 100 MG tablet Take 100 mg by mouth daily. loratadine (CLARITIN) 10 MG tablet Take 10 mg by mouth daily. chlorhexidine (PERIDEX) 0.12 % oral solution Take 15 mL by mouth 2 times daily. 1 Bottle 0 ibuprofen (MOTRIN) 600 MG tablet Take 1 Tab by mouth every 6 hours as needed for Pain. 30 Tab 1 trihexyphenidyl 2 MG tablet Take 2 mg by mouth 3 times daily. Zinc Gluconate 50 MG TABS Take by mouth. Fluticasone Propionate (FLONASE NASAL) [place] into each nostril. Selenium (SELENIMIN ORAL) Take by mouth. Sennosides (SENNA) 15 MG tablet Take 1 Tab by mouth daily as needed for Constipation. topiramate (TOPIRAGEN) 25 MG tablet Take 75 mg by mouth 2 times daily (more content not included)... Normal [facility] Progress Noteson 02-17-2024 [facility] Authentication Interface Message Text Patient PAT has be rescheduled for 02/19/2024--for OR visit 03/02/2024----- Saturday, February 17, 2024 at 10:10:00 AM ----- ----- Provider: LESLIE [facility] [employer] -- Clinic: [place] ----- Normal [facility] Progress Noteson 02-05-2024 [facility] Authentication Interface Message Text Patient was no show for PAT today at [facility] surgery is scheduled 03/02-Contact Concetta @ [email or web address] --advised if PAT needs to reschedule or patient will be removed from OR----- Monday, February 05, 2024 at 4:24:04 PM ----- ----- Provider: LESLIE [facility] [employer] -- Clinic: [place] ----- Normal [facility] Progress Noteson 01-08-2024 [facility] Authentication Interface Message Text Parent/guardian/pat ient was contacted for PAT AND OR Sedation scheduled -- confirmed information with patient, also informed mom importance of going to PAT appointment -- if missed, IV Sedation will be cancelled, and you will be placed back on wait list 03/02/24----- Monday, January 08, 2024 at 2:14:12 PM ----- ----- Provider: LESLIE [facility] [employer] Mechanic -- Clinic: [place] ----- Normal [facility] Progress Noteson 12-30-2023 [facility] Authentication Interface Message Text Attempted to contact patient/ parent / guardian at telephone number listed -- no answer, left voicemail message requesting a return call.----- Saturday, December 30, 2023 at 2:26:35 PM ----- ----- Provider: LESLIE [facility] [employer] Metal Mechanic -- Clinic: [place] ----- [email or web address] FREE T4on 08-29-2022 Free T4 [Mass/Vol] 1.76 ng/dL Critically high 0.76-1.46 [facility] Comment on above: Performed By: #### F T4 #### [facility] [address] [place] [address] Dr. Volodymyr Paez TSHon 08-29-2022 TSH Qn m[IU]/L Critically low 0.358-3.740 [facility] Comment on above: Performed By: #### T SH #### [facility] [address] [place] [address] Dr. Volodymyr Paez CULTURE URINEon 08-24-2022 CULTURE [...] S F Tetracycline >=16 R F Normal [facility] Comment on above: Performed By: #### T SH, CMP #### [facility] [address] [place] [address] Dr. Volodymyr Paez UA (CLEAN/CATCH) [employer]ER/MICRO I F IND.on 08-21-2022 Bilirubin Ql (U) Negative Normal NEGATIVE [facility] Comment on above: Performed By: #### U ACSIND, UMICRO #### [facility] [address] [place] [address] Dr. Volodymyr Paez Clarity (U) CLEAR Normal CLEAR [facility] Comment on above: Performed By: #### U ACSIND, UMICRO #### [facility] [address] [place] [address] Dr. Volodymyr Paez Color (U) LT. YELLOW Normal YELLOW [facility] Comment on above: Performed By: #### U ACSIND, ICRO #### [facility] [address] [place] [address] Dr. Volodymyr Paez Glucose Ql (U) Negative Normal NEGATIVE [facility] Comment on above: Performed By: #### U ACSIND, ICRO #### [facility] [address] [place] [address] Dr. Volodymyr Paez Hemoglobin Ql (U) Negative Normal NEGATIVE [facility] Comment on above: Performed By: #### U ACSIND, ICRO #### [facility] [address] [place] [address] Dr. Volodymyr Paez Ketones Ql (U) Negative Normal NEGATIVE [facility] Comment on above: Performed By: #### U ACSIND, UMICRO #### [facility] [address] [place] [address] Dr. Volodymyr Paez LEUKOCYTES SMALL Abnormal NEGATIVE [facility] Comment on above: Performed By: #### U ACSIND, UMICRO #### [facility] [address] [place] [address] Dr. Volodymyr Paez Nitrite Ql (U) Negative Normal NEGATIVE [facility] Comment on above: Performed By: #### U ACSIND, UMICRO #### [facility] [address] [address] [address] Volodymyr Paez pH (U) 7.0 [pH] Normal 5-9 [facility] Comment on above: Performed By: #### U ACSIND, UMICRO #### [facility] [address] [address] [address] Volodymyr Paez SPEC GRAVITY 1.020 Normal 1.005-<=1.025 [facility] Comment on above: Performed By: #### U ACSIND, UMICRO #### [facility] [address] [address] [address] Volodymyr Paez UA PROTEIN Negative Normal NEGATIVE/ TRACE [facility] Comment on above: Performed By: #### U ACSIND, UMICRO #### [facility] [address] [place] [address] Dr. Volodymyr Paez UR MICRO IND INDICATED Normal [facility] Comment on above: Performed By: #### U ACSIND, UMICRO #### [facility] [address] [address] [address] Volodymyr Paez Urobilinogen Qn (U) 0.2 {Leta'U}/dL Normal 0.2 - 1. 0 [facility] Comment on above: Performed By: #### U ACSIND, UMICRO #### [facility] [address] [place] [address] Dr. Volodymyr Paez URINE MICROSCOPIC ONLYon BACTERIA SMALL Abnormal NONE SEEN [facility] Comment on above: Performed By: #### U ACSIND, UMICRO #### [facility] [address] [address] [address] Volodymyr Paez Bacteria identified Cx Nom (U) INDICATED Normal [facility] Comment on above: Performed By: #### U ACSIND, UMICRO #### [facility] [address] [place] [address] Dr. Volodymyr Paez CAST NONE SEEN Normal NONE SEEN [facility] Comment on above: Performed By: #### U ACSIND, UMICRO #### [facility] [address] [address] [address] Volodymyr Paez Crystals LM Nom (Urine sed) NONE SEEN Normal NONE SEEN [facility] Comment on above: Performed By: #### U ACSSHAHEEN, UMICRO #### [facility] [address] [address] [address] Volodymyr Paez Epithelial cells LM Ql (Urine sed) MODERATE Abnormal NONE SEEN /RARE [facility] Comment on above: Performed By: #### U ACSSHAHEEN, UMICRO #### [facility] [address] [address] [address] Volodymyr Paez MUCOUS TRACE Abnormal NONE SEEN [facility] Comment on above: Performed By: #### U ACSSHAHEEN, UMICRO #### [facility] [address] [place] [address] Dr. Volodymyr Paez RBC 2-5 Abnormal 0-2 [facility] Comment on above: Performed By: #### U ACSSHAHEEN, ICRO #### [facility] [address] [place] [address] Dr. Volodymyr Paez WBC 10-20 Abnormal NONE SEEN [facility] Comment on above: Performed By: #### U ACSSHAHEEN, ICRO #### [facility] [address] [place] [address] Dr. Volodymyr Paez LAMOTRIGINEon 08-13-2022 Lamotrigine, Serum 11.2 ug/mL Normal 2.0-20.0 [facility] Comment on above: Result Comment: Dete ction Limit = 1.0 Performed By: #### T SH, CMP #### [facility] [address] [place] [address] Dr. Volodymyr Paez CBC AUTO DIFFon 08-09-2022 BASO # 0.0 103/ul Normal 0.0-0.1 [facility] Comment on above: Performed By: #### C BC #### [facility] [address] [place] [address] Dr. Volodymyr Paez Basophils/100 WBC (Bld) 0.4 % Normal 0.2-2.0 [facility] Comment on above: Performed By: #### C BC #### [facility] [address] [address] [address] Volodymyr Paez EO # 0.4 103/ul Normal 0.0-0.7 [facility] Comment on above: Performed By: #### C BC #### [facility] [address] [place] [address] Dr. Volodymyr Paez Eosinophils/100 WBC (Bld) 4.3 % Normal 0.9-7.0 [facility] Comment on above: Performed By: #### C BC #### [facility] [address] [place] [address] Dr. Volodymyr Paez Erythrocyte distribution width (RBC) [Ratio] 13.2 % Normal 11.0-15.0 [facility] Comment on above: Performed By: #### C BC #### [facility] [address] [place] [address] Dr. Volodymyr Paez Hematocrit (Bld) [Volume fraction] 40.2 % Normal 36.0-48.0 [facility] Comment on above: Performed By: #### C BC #### [facility] [address] [place] [address] Dr. Volodymyr Paez Hemoglobin (Bld) [Mass/Vol] 13.8 g/dL Normal 12.0-16.0 [facility] Comment on above: Performed By: #### C BC #### [facility] [address] [place] [address] Dr. Volodymyr Paez IG # 0.02 10e3/ul Normal 0.00-0.03 [facility] Comment on above: Performed By: #### C BC #### [facility] [address] [place] [address] Dr. Volodymyr Paez IG % 0.2 % Normal 0.0-0.5 [facility] Comment on above: Performed By: #### C BC #### [facility] [address] [place] [address] Dr. Volodymyr Paez LYMPH # 4.3 103/ul Critically high 1.2-3.8 [facility] Comment on above: Performed By: #### C BC #### [facility] [address] [place] [address] Dr. Volodymyr Paez Lymphocytes/100 WBC (Bld) 51.8 % Normal 20.5-60.0 [facility] Comment on above: Performed By: #### C BC #### [facility] [address] [place] [address] Dr. Volodymyr Paez MANUAL DIFF REQ NO Normal [facility] Comment on above: Performed By: #### C BC #### [facility] [address] [place] [address] Dr. Volodymyr Paez MCH (RBC) [Entitic mass] 31.0 pg Normal 26.7-34.0 [facility] Comment on above: Performed By: #### C BC #### [facility] [address] [place] [address] Dr. Volodymyr Paez MCHC (RBC) [Mass/Vol] 34.3 g/dL Normal 29.9-35.2 [facility] Comment on above: Performed By: #### C BC #### [facility] [address] [place] [address] Dr. Volodymyr Paez MCV (RBC) [Entitic vol] 90.3 fL Normal 81.0-99.0 [facility] Comment on above: Performed By: #### C BC #### [facility] [address] [place] [address] Dr. Volodymyr Paez MONO # 0.9 103/ul Critically high 0.3-0.8 [facility] Comment on above: Performed By: #### C BC #### [facility] [address] [place] [address] Dr. Volodymyr Paez Monocytes/100 WBC (Bld) 10.4 % Normal 1.7-12.0 [facility] Comment on above: Performed By: #### C BC #### [facility] [address] [place] [address] Dr. Volodymyr Paez NEUT # 2.7 103/ul Normal 1.4-6.5 [facility] Comment on above: Performed By: #### C BC #### [facility] [address] [place] [address] Dr. Volodymyr Paez Neutrophils/100 WBC (Bld) 32.9 % Critically low 43.0-75.0 [facility] Comment on above: Performed By: #### C BC #### [facility] [address] [place] [address] Dr. Volodymyr Paez Platelet mean volume (Bld) [Entitic vol] 10.3 fL Normal 9.5-13.5 [facility] Comment on above: Performed By: #### C BC #### [facility] [address] [place] [address] Dr. Volodymyr Paez PLT 231 103/ul Normal 150-450 [facility] Comment on above: Performed By: #### C BC #### [facility] [address] [place] [address] Dr. Volodymyr Paez RBC 4.45 106/ul Normal 4.20-5.40 [facility] Comment on above: Performed By: #### C BC #### [facility] [address] [place] [address] Dr. Volodymyr Paez WBC 8.2 103/ul Normal 4.0-11.0 [facility] Comment on above: Performed By: #### C BC #### [facility] [address] [place] [address] Dr. Volodymyr Paez DEPAKENE/ VALPROIC ACIDon DEPAKENE 80.3 ug/ml Normal 50.0-100.0 [facility] Comment on above: Performed By: #### V ALP #### [facility] [address] [place] [address] Dr. Volodymyr Paez US THYROIDon 07-10-2022 US [...] 6 mm. No follow-up required TI-RADS: The [employer] TI-RADS committee's white paper recommendations for thyroid lesions classified as TR4 (moderately suspicious) are listed below: > 1.0 cm. Follow-up ultrasound in 1, 2, 3, and 5 years. > 1.5 cm. FNA. J. Am Chidi Radiol 2017;14:587-595. Electronically authenticated by: MATILDE WATERMAN Date: 2022-07-10 13:01 Normal [facility] LAMOTRIGINEon 06-29-2022 Lamotrigine, Serum 14.2 ug/mL Normal 2.0-20.0 [facility] Comment on above: Result Comment: Dete ction Limit = 1.0 Performed By: #### T SH, CMP #### [facility] [address] [place] [address] Dr. Volodymyr Paez CBC AUTO DIFFon 06-27-2022 BASO # 0.1 103/ul Normal 0.0-0.1 [facility] Comment on above: Performed By: #### T SH, CMP #### [facility] [address] [place] [address] Dr. Volodymyr Paez Basophils/100 WBC (Bld) 0.7 % Normal 0.2-2.0 [facility] Comment on above: Performed By: #### T SH, CMP #### [facility] [address] [place] [address] Dr. Volodymyr Paez EO # 0.4 103/ul Normal 0.0-0.7 [facility] Comment on above: Performed By: #### T SH, CMP #### [facility] [address] [place] [address] Dr. Volodymyr Paez Eosinophils/100 WBC (Bld) 5.1 % Normal 0.9-7.0 [facility] Comment on above: Performed By: #### T SH, CMP #### [facility] [address] [place] [address] Dr. Volodymyr Paez Erythrocyte distribution width (RBC) [Ratio] 13.1 % Normal 11.0-15.0 [facility] Comment on above: Performed By: #### T SH, CMP #### [facility] [address] [place] [address] Dr. Volodymyr Paez Hematocrit (Bld) [Volume fraction] 39.7 % Normal 36.0-48.0 [facility] Comment on above: Performed By: #### T SH, CMP #### [facility] [address] [place] [address] Dr. Volodymyr Paez Hemoglobin (Bld) [Mass/Vol] 13.3 g/dL Normal 12.0-16.0 [facility] Comment on above: Performed By: #### T SH, CMP #### [facility] [address] [place] [address] Dr. Volodymyr Paez IG # 0.02 10e3/ul Normal 0.00-0.03 [facility] Comment on above: Performed By: #### T SH, CMP #### [facility] [address] [place] [address] Dr. Volodymyr Paez IG % 0.3 % Normal 0.0-0.5 [facility] Comment on above: Performed By: #### T SH, CMP #### [facility] [address] [place] [address] Dr. Volodymyr Paez LYMPH # 3.6 103/ul Normal 1.2-3.8 [facility] Comment on above: Performed By: #### T SH, CMP #### [facility] [facility] [address] [place] [address] Dr. Volodymyr Paez Lymphocytes/100 WBC (Bld) 47.4 % Normal 20.5-60.0 [facility] Comment on above: Performed By: #### T SH, CMP #### [facility] [address] [place] [address] Dr. Volodymyr Paez MANUAL DIFF REQ NO Normal [facility] Comment on above: Performed By: #### T SH, CMP #### [facility] [address] [address] [address] Volodymyr Paez MCH (RBC) [Entitic mass] 30.3 pg Normal 26.7-34.0 [facility] Comment on above: Performed By: #### T SH, CMP #### [facility] [address] [place] [address] Dr. Volodymyr Paez MCHC (RBC) [Mass/Vol] 33.5 g/dL Normal 29.9-35.2 [facility] Comment on above: Performed By: #### T SH, CMP #### [facility] [address] [place] [address] Dr. Volodymyr Paez MCV (RBC) [Entitic vol] 90.4 fL Normal 81.0-99.0 [facility] Comment on above: Performed By: #### T SH, CMP #### [facility] [address] [place] [address] Dr. Volodymyr Paez MONO # 0.9 103/ul Critically high 0.3-0.8 [facility] Comment on above: Performed By: #### T SH, CMP #### [facility] [address] [place] [address] Dr. Volodymyr Paez Monocytes/100 WBC (Bld) 11.3 % Normal 1.7-12.0 [facility] Comment on above: Performed By: #### T SH, CMP #### [facility] [address] [place] [address] Dr. Volodymyr Paez NEUT # 2.7 103/ul Normal 1.4-6.5 [facility] Comment on above: Performed By: #### T SH, CMP #### [facility] [address] [place] [address] Dr. Volodymyr Paez Neutrophils/100 WBC (Bld) 35.2 % Critically low 43.0-75.0 [facility] Comment on above: Performed By: #### T SH, CMP #### [facility] [address] [place] [address] Dr. Volodymyr Paez Platelet mean volume (Bld) [Entitic vol] 11.4 fL Normal 9.5-13.5 [facility] Comment on above: Performed By: #### T SH, CMP #### [facility] [address] [place] [address] Dr. Volodymyr Paez PLT 96 103/ul Critically low 150-450 [facility] Comment on above: Result Comment: slid e made; no plt clumps seen Performed By: #### T SH, CMP #### [facility] [address] [place] [address] Dr. Volodymyr Paez RBC 4.39 106/ul Normal 4.20-5.40 [facility] Comment on above: Performed By: #### T SH, CMP #### [facility] [address] [place] [address] Dr. Volodymyr Paez WBC 7.6 103/ul Normal 4.0-11.0 [facility] Comment on above: Performed By: #### T SH, CMP #### [facility] [address] [place] [address] Dr. Volodymyr Paez FREE T4on 06-27-2022 Free T4 [Mass/Vol] 1.45 ng/dL Normal 0.76-1.46 [facility] Comment on above: Performed By: #### F T4 #### [facility] [address] [place] [address] Dr. Volodymyr Paez PROF 14(COMP METB)on 023 Albumin [Mass/Vol] 3.2 g/dL Critically low 3.4-5.0 [facility] Comment on above: Performed By: #### T SH, CMP #### [facility] [address] [place] [address] Dr. Volodymyr Paez Albumin/Globulin [Mass ratio] 0.7 {ratio} Normal [facility] Comment on above: Performed By: #### T SH, CMP #### [facility] [address] [place] [address] Dr. Volodymyr Paez ALP [Catalytic activity/Vol] 65 U/L Normal 46-116 [facility] Comment on above: Performed By: #### T SH, CMP #### [facility] [address] [address] [address] Volodymyr Paez ALT [Catalytic activity/Vol] 20 U/L Normal 14-59 [facility] Comment on above: Performed By: #### T SH, CMP #### [facility] [address] [address] [address] Volodymyr Paez Anion gap [Moles/Vol] 11.3 mmol/L Normal [facility] Comment on above: Performed By: #### T SH, CMP #### [facility] [address] [address] [address] Volodymyr Paez AST [Catalytic activity/Vol] 25 U/L Normal 15-37 [facility] Comment on above: Performed By: #### T AKIKO, CMP #### [facility] [address] [place] [address] Dr. Volodymyr Paez Bilirubin [Mass/Vol] 0.3 mg/dL Normal 0.2-1.0 [facility] Comment on above: Performed By: #### T AKIKO, CMP #### [facility] [address] [place] [address] Dr. Volodymyr Paez Calcium [Mass/Vol] 9.5 mg/dL Normal 8.5-10.1 [facility] Comment on above: Performed By: #### T AKIKO, CMP #### [facility] [address] [address] [address] Volodymyr Paez Chloride [Moles/Vol] 100 mmol/L Normal 98-107 [facility] Comment on above: Performed By: #### T AKIKO, CMP #### [facility] [address] [place] [address] Dr. Volodymyr Paez CO2 [Moles/Vol] 30.1 mmol/L Normal 21.0-32.0 [facility] Comment on above: Performed By: #### T AKIKO, CMP #### [facility] [address] [place] [address] Dr. Volodymyr Paez Creatinine [Mass/Vol] 0.92 mg/dL Normal 0.55-1.02 [facility] Comment on above: Performed By: #### T AKIKO, CMP #### [facility] [address] [place] [address] Dr. Volodymyr Paez EGFR-AF BHUTANESE >60 Normal >=60 [facility] Comment on above: Performed By: #### T AKIKO, CMP #### [facility] [address] [place] [address] Dr. Volodymyr Paez EGFR-NON AF BHUTANESE >60 Normal >=60 [facility] Comment on above: Performed By: #### T SH, CMP #### [facility] [address] [address] [address] Volodymyr Paez Globulin (S) [Mass/Vol] 4.4 g/dL Normal [facility] Comment on above: Performed By: #### T AKIKO, CMP #### [facility] [address] [place] [address] Dr. Volodymyr Paez Glucose [Mass/Vol] 76 mg/dL Normal 74-106 [facility] Comment on above: Performed By: #### T AKIKO, CMP #### [facility] [address] [place] [address] Dr. Volodymyr Paez Potassium [Moles/Vol] 4.4 mmol/L Normal 3.5-5.1 [facility] Comment on above: Performed By: #### T AKIKO, CMP #### [facility] [address] [place] [address] Dr. Volodymyr Paez Protein [Mass/Vol] 7.6 g/dL Normal 6.4-8.2 [facility] Comment on above: Performed By: #### T AKIKO, CMP #### [facility] [address] [place] [address] Dr. Volodymyr Paez Sodium [Moles/Vol] 137 mmol/L Normal 136-145 [facility] Comment on above: Performed By: #### T AKIKO, CMP #### [facility] [address] [place] [address] Dr. Volodymyr Paez Urea nitrogen [Mass/Vol] 7.0 mg/dL Normal 7.0-18.0 [facility] Comment on above: Performed By: #### T AKIKO, CMP #### [facility] [address] [place], [place] [address] Dr. Volodymyr Paez Urea nitrogen/Creatinine [Mass ratio] 7.6 mg/mg Normal [facility] Comment on above: Performed By: #### T SH, CMP #### [facility] [address] [address] [address] Volodymyr Paez TSHon 06-27-2022 TSH 0.099 uIU/mL Critically low 0.358-3.740 [facility] Comment on above: Performed By: #### T SH, CMP #### [facility] [address] [address] [address] Volodymyr Paez DEPAKENE/ VALPROIC ACIDon DEPAKENE 72.4 ug/ml Normal 50.0-100.0 [facility] Comment on above: Performed By: #### T , CMP #### [facility] [address] [place] [address] Dr. Volodymyr Paez US THYROIDon 10-25-2021 US [...] screening is still recommended. TR 4: The [employer] TI-RADS committee's white paper recommendations for thyroid lesions classified as TR4 (moderately suspicious) are listed below: > 1.0 cm. Follow-up ultrasound in 1, 2, 3, and 5 years. > 1.5 cm. FNA. J. Am Chidi Radiol 2017;14:587-595. Electronically authenticated by: KRIS MENDOZA Date: 2021-10-25 09:31 Normal [facility] FREE T4on 10-24-2021 Free T4 [Mass/Vol] 1.08 ng/dL Normal 0.76-1.46 [facility] Comment on above: Performed By: #### T SH, CMP #### [facility] [address] [address] [address] Volodymyr Paez TSHon 10-24-2021 TSH 12.719 uIU/mL Critically high 0.358-3.740 [facility] Comment on above: Performed By: #### T SH #### [facility] [address] [address] [address] Volodymyr Paez Vital Signs Date Time Vital Sign Value Performing Clinician Faci lity 03-10-2024 11:19-0500 Body height 165.1 cm Lai Alvarado DPM FACFAS Work Phone: [facility] 03-10-2024 11:19-0500 Body mass index (BMI) [Ratio] 21.3 kg/m2 Lai Alvarado DPM FACFAS Work Phone: [facility] 03-10-2024 11:19-0500 Body weight 58.06 kg Lai Alvarado DPM FACFAS Work Phone: [facility] 03-10-2024 11:19-0500 Diastolic blood pressure 72 mm[Hg] Lai Alvarado DPM FACFAS Work Phone: [facility] 03-10-2024 11:19-0500 Heart rate 88 /min Lai Alvarado DPM FACFAS Work Phone: [facility] 03-10-2024 11:19-0500 Systolic blood pressure 115 mm[Hg] Lai Alvarado DPM FACFAS Work Phone: [facility] 03-02-2024 12:30-0500 Body temperature 98.1 [degF] Elmer Topete DDS Work Phone: [facility] 03-02-2024 12:30-0500 Diastolic blood pressure 73 mm[Hg] Elmer Topete DDS Work Phone: [facility] 03-02-2024 12:30-0500 Heart rate 113 /min Elmer Topete [employer]: [place] Work Phone: [facility] 03-02-2024 12:30-0500 Respiratory rate 19 /min Elmer Topete [employer]: [place] Work Phone[facility] 03-02-2024 12:30-0500 SaO2% (BldA) [Mass fraction] 98 % Elmer Topete [employer]: [place] Work Phone: [facility] 03-02-2024 12:30-0500 Systolic blood pressure 113 mm[Hg] Elmer Topete [employer]: [place] Work Phone: [facility] 03-02-2024 09:11-0500 Body height 162.6 cm Elmer Topete [employer]: [place] Work Phone: [facility] 03-02-2024 09:11-0500 Body mass index (BMI) [Ratio] 23.45 kg/m2 Elmer Topete [employer]: [place] Work Phone: [facility] 03-02-2024 09:11-0500 Body weight 61.96 kg Elmeredgard Topete [employer]: [place] Work Phone: [facility] 02-19-2024 11:00-0400 Body height 162.6 cm Kelly Cabello RN [facility] 02-19-2024 11:00-0400 Body mass index (BMI) [Ratio] 23.45 kg/m2 Kelly Cabello RN [employer] 02-19-2024 11:00-0400 Body weight 61.96 kg Kelly Cabello RN [employer] 01-21-2024 11:05-0400 Diastolic blood pressure 72 mm[Hg] Radha AMADOR Work Phone: [facility] [employer] 01-21-2024 11:05-0400 Heart rate 92 /min Radha Martinez PA Work Phone: [facility] [employer] 01-21-2024 11:05-0400 Respiratory rate 16 /min Radha AMADOR Work Phone: [facility] [employer] 01-21-2024 11:05-0400 SaO2% (BldA) [Mass fraction] 96 % Radha AMADOR Work Phone: [facility] 01-21-2024 11:05-0400 Systolic blood pressure 118 mm[Hg] Radha AMADOR Work Phone: [facility] Healthcare Encounters Encounter Date Encounter Type Care Provider Facility Start: 03-10-2024 End: 03-10-2024 Bamboo flowsheet Lai D Dolce DPM FACFAS Work Phone: [facility] Start: 03-10-2024 End: 03-10-2024 Bamboo flowsheet Lai D Dolce DPM FACFAS Work Phone: [facility] Start: 03-10-2024 End: 03-10-2024 ambulatory LAI D DOLCE Not Available Start: 03-10-2024 End: 03-10-2024 Office outpatient new 30 minutes Lai D Dolce DPM FACFAS Work Phone: [facility] Comment on above: Venous insufficiency (chronic) (peripheral) (Primary Dx); Onychomycosis; Pain in right toe(s); Pain in left toe(s); Onychocryptosis Start: 03-02-2024 End: 03-02-2024 Patient encounter procedure Elmer Topete DDS Work Phone: [facility] Start: 03-02-2024 End: 03-02-2024 Subsequent hospital visit by physician Elmer Topete DDS Work Phone: [facility] Start: 03-02-2024 End: 03-02-2024 ambulatory ELMER TOPETE Facility:[facility] Start: 02-26-2024 End: 02-26-2024 Telephone encounter Kelly Cabello RN [facility] Comment on above: Pre-surgical Evaluat ion (DD adult dental restorations 03/02 under [place] at [place]. PAT completed - anesthesia consent. ZOHRA RN spoke to Mary (nurse), confirmed NPO, [place] address, and 0900 arrival time/) Start: 02-24-2024 End: 02-24-2024 Telephone encounter Ashleigh Kaplan RN [facility] Comment on above: PAT (Anesthesia cons ent obtained) Start: 02-21-2024 End: 02-21-2024 Telephone encounter Ashleigh Kaplan RN [facility] Comment on above: PAT (Anesthesia cons ent obtained) Start: 02-19-2024 End: 02-19-2024 Nursing evaluation of patient and report Kelly Cabello RN [facility] Comment on above: Pre-op evaluation (P rimary Dx) Start: 02-19-2024 End: 02-19-2024 Preprocedural examination done Kelly Cabello RN [facility] Start: 02-19-2024 ambulatory UNKNOWN PROVIDER Facili ty:[facility] Start: 02-19-2024 Encounter for other preprocedural examination UNKNOWN PROVIDER [facility] Start: 02-05-2024 End: 02-05-2024 Patient encounter procedure Refugio Ferrell GAME PROGRAMER-DIRECTOR OF CLINICAL APPLICATIONS Work Phone: [facility] Comment on above: NO SHOW (Primary Dx) Start: 01-21-2024 End: 01-21-2024 Bamboo flowsheet Radha AMADOR Work Phone: [employer] [facility] Start: 01-21-2024 End: 01-21-2024 Bamboo flowsheet Radha AMADOR Work Phone: [employer] [facility] Start: 01-21-2024 End: 01-21-2024 ambulatory RADHA MARTINEZ Not Available Start: 01-21-2024 End: 01-21-2024 Office outpatient visit 15 minutes Radha AMADOR Work Phone: [employer] [facility] Comment on above: Seizure disorder (CM S/HCC) (Primary Dx); Mental deficiency (CMS/HCC); Autism (CMS/HCC); Pseudobulbar affect; Gait instability Start: 12-27-2023 End: 12-27-2023 Admission to same day surgery center Mike Weebr DDS Work Phone: [facility] Start: 10-01-2023 End: 10-01-2023 ambulatory RADHA MARTINEZ Not Available Start: 08-06-2023 End: 08-06-2023 ambulatory RADHA MARTINEZ Not Available Start: 08-29-2022 End: 08-30-[address] NATHAN TILLEY Facility:[facility] Start: 08-21-2022 End: 08-21-[address] DOCTOR JAVED Facility:[facility] Start: 08-09-2022 End: 08-10-[address] NATHAN TILLEY Facility:[facility] Start: 07-21-2022 End: 07-21-[address] UMAIR TURNER . Facility:[facility] Start: 07-10-2022 End: 07-11-[address] DOCTOR JAVED Facility:[facility] Start: 06-27-2022 End: 06-28-[address] OROZCO LISTED REQUEST Facility:[facility] Start: 04-30-2022 Telephone encounter Martha dill DMD Work Phone: [facility] Comment on above: Dental Start: 04-03-2022 End: 04-04-[address] NATHAN TILLEY Facility:[facility] Start: 03-13-2022 End: 03-18-2022 Patient encounter procedure Martha Coreas DMD Work Phone: [facility] Start: 10-24-2021 End: 10-25-[address] DOCTOR JAVED Facility:[facility] Start: 11-07-2016 End: 11-08-2016 Ambulatory DEFAULT PHYSICIAN Facility:[facility] Procedures Date Procedure Procedure Detail Performing Clinician Start: 03-02-2024 End: 03-02-2024 Urine test visual color cmprsn neos Milton Luna MD Work Phone: Plan of Treatment Date Care Activity Detail Author Start: 2043 Shingles (RZV) Vacci ne (1 of 2) Shingles (RZV) Vaccine (1 of 2) [facility] Start: 06-10-2024 End: 06-10-2024 Patient encounter procedure 06/10/2024 10:30 AM EST Procedure Visit [facility] [address] [place] [address] Lai Alvarado DPM FACFAS [address] [place] [address] [place] [address] [facility] Start: 05-12-2024 End: 05-12-2024 Patient encounter procedure 05/12/2024 11:20 AM EST Office Visit [facility] [address] [place] [address] Radha Martinez PA [address] [place] [address] [facility] Start: 03-02-2024 End: 03-02-2024 Admission to same day surgery center 03/02/2024 9:14 AM EST - 03/02/2024 10:58 AM EST Surgery [facility] [address] [place], [place] [id number] Elmer Topete DDS [address] [id number] [facility] Comment on above: [facility] Start: 03-02-2024 End: 03-02-2024 DENTAL RESTORATIONS [facility] Start: 03-02-2024 End: 03-02-2024 Admission to same day surgery center 03/02/2024 7:40 AM EST - 03/02/2024 9:24 AM EST Surgery [facility] [address] [place] [address] Elmer Topete DDS [address] [place] [address] [facility] Comment on above: [employer] Start: 03-02-2024 End: 03-02-2024 DENTAL RESTORATIONS D[facility]ATIONS Routine scheduled Caries 03/02/2024 7:40 AM EST [facility] Start: 03-02-2024 Subsequent hospital visit by physician [facility] Start: 03-02-2024 End: 03-02-2024 Patient encounter procedure [facility] Start: 02-05-2024 End: 02-05-2024 Patient encounter procedure 02/05/2024 9:15 AM EDT Office Visit [facility] [address] [place] [address] Refugio Ferrell, GAME PROGRAMER-DIRECTOR OF CLINICAL APPLICATIONS [address] [place] [address] [facility] Start: 01-21-2024 Influenza vaccination Influenza Vacc ine (#[facility]) [facility] Start: 01-21-2024 End: 01-20-2025 Lamotrigine level Lamotrigine level Lab Routine Seizure disorder ([facility]/HCC) Expected: 01/21/2024 (Approximate), Expires: 01/20/2025 [facility] Work Phone: Comment on above: Expected: 01/21/2024 (Approximate), Expires: 01/20/2025 Start: 01-21-2024 End: 01-20-2025 Valproic acid level, total Valproic acid level, total Lab Routine Seizure disorder (CMS/HCC) Expected: 01/21/2024 (Approximate), Expires: 01/20/2025 [facility] Comment on above: Expected: 01/21/2024 (Approximate), Expires: 01/20/2025 Start: 12-22-2023 COVID-19 Vaccine ( season) COVID-19 Vaccine ( season) [facility] Start: 12-22-2023 COVID-19 Vaccine ( season) COVID-19 Vaccine ( season) [facility] Start: 12-22-2023 Influenza vaccination Influenza Vacc ine (#1) [facility] Start: 2023 Screening for malign ant neoplasm of cervix [facility] Start: 01-20-2022 Influenza vaccination Influenza Vacc [...] Start: 12-21-2013 Annual wellness visit Annual W ellness Visit ([id number]) [facility] Start: 01-02-2012 Hepatitis A [...] [facility] Start: 01-02-2008 HIV screening HIV Test [facility] Start: 1993 Medicare Annual Wellness (AWV) Medicare Annual Wellness (AWV) [facility]ATIONS DENTAL MEENA RATIONS Routine scheduled Caries [facility] Payers Date Payer Category Payer Dental --Stand Alone DENTAL-MEDI CAID [id number] 2014 Unknown 2013 Medicaid [id number] 2012 Medicare [id number] 2012 Medicare FFS MEDICARE [id number] 1993 Unknown [id number] 32 1993 Unknown [id number] [id number] 32 1993 Unknown [id number] [id number] 32 1993 Unknown [id number] [id number] 259 1993 Unknown [id number] [id number] 259 1993 Unknown [id number] [id number] 259 1993 Unknown [id number] [id number] 259 1959 Medicaid [id number] 1959 Medicare [id number] 1954 Unknown [id number] [id number] 93 1954 Unknown [id number] [id number] 93 1954 Unknown [id number] [id number] 93 1954 Unknown [id number] [id number] 93 1954 Unknown [id number] [id number] 93 1954 Unknown [id number] [id number] 93 1954 Unknown [id number] [id number] 93 1954 Unknown [id number] 93 Social History Date Type Detail Facility Tobacco smoking stat [facility] Tobacco smoking consumption unknown [facility] Start: 1995 Sex Assigned At [facility] on file [facility] Start: 10-01-2023 End: 03-10-2024 Gender identity Not on file [facility] Start: 08-06-2023 End: 02-19-2024 Tobacco smoking status [facility] Never smoked tobacco [facility] Start: 08-06-2023 End: 02-19-2024 Tobacco use and exposure Smokeless tobacco non-user [facility] Start: 10-01-2023 End: 03-10-2024 Alcoholic beverage intake Lifetime non-drinker (finding) [facility] Start: 10-01-2023 End: 03-10-2024 History of Social function [facility] Start: 07-06-2014 Sex Female (finding) [facility] Clinical Notes 03-13-2022 to 03-10-2024 Lai Alvarado DPM FAC[facility]AS - 03/10/2024 10:50 AM ESTDischarge InstructionsBrief Operative Note - Paula Contreras DDS - 03/02/2024 10:26 AM ESTOP Note - Paula Contreras DDS - 03/01/2024 6:14 PM EST Note Date & Type Note Facility 03-10-2024 History of Present illness Narrative patient: Chantel Ascencio : 1995 PCP: Nathan Tilley MD SUBJECTIVE This is a 29 y.o. female that presents today with a chief complaint of painful elongated nails digits 1 through 10. They cause marked limitation in ambulation due to pain and pressure from shoe gear. 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 Pseudobulbar affect Seizure disorder (CMS/HCC) Medications: Current Outpatient Medications: ammonium lactate (Amlactin) 12 % cream, Apply 2 application topically Daily, Disp: , Rfl: busPIRone (Buspar) 30 MG tablet, Take 30 mg by mouth in the morning and 30 mg in the evening and 30 mg before bedtime., Disp: , Rfl: cloNIDine (Catapres) 0.2 MG tablet, Take 0.2 mg by mouth in the morning and 0.2 mg at noon and 0.2 mg in the evening and 0.2 mg before bedtime., Disp: , Rfl: divalproex (Depakote) 125 MG EC tablet, Take 500 mg by mouth in the morning and 500 mg in the evening and 500 mg before bedtime., Disp: , Rfl: divalproex (Depakote) 125 MG EC tablet, Take 1,000 mg by mouth at bedtime Do not crush, chew, or split., Disp: , Rfl: famotidine (Pepcid) 40 MG tablet, Take 40 mg by mouth Daily, Disp: , Rfl: guanFACINE (Tenex) 2 MG tablet, Take 2 mg by mouth in the morning and 2 mg before bedtime., Disp: , Rfl: lamoTRIgine (LaMICtal) 100 MG tablet, Take 100 mg by mouth at bedtime, Disp: , Rfl: lamoTRIgine (LaMICtal) 150 MG tablet, Take 150 mg by mouth in the morning., Disp: , Rfl: levothyroxine (Synthroid, Levoxyl) 175 MCG tablet, Take 175 mcg by mouth in the morning. Take before meals., Disp: , Rfl: loratadine (Claritin) 10 MG tablet, Take 10 mg by mouth Daily, Disp: , Rfl: Melatonin 3 MG tablet dispersible, Take 3 mg by mouth at bedtime, Disp: , Rfl: norethindrone-ethinyl estradiol (Ortho-Novum, Nortrel) 1-35 MG-MCG tablet, Take 1 tablet by mouth Daily, Disp: , Rfl: paliperidone (Invega) 3 MG 24 hr tablet, Take 3 mg by mouth in the morning and 3 mg before bedtime. Do not crush, chew, or split.., Disp: , Rfl: polyethylene glycol, PEG, 3350 (Miralax) 17 g packet, Take 17 g by mouth Daily, Disp: , Rfl: QUEtiapine (SEROquel) 200 MG tablet, Take 200 mg by mouth at bedtime, Disp: , Rfl: QUEtiapine (SEROquel) 400 MG tablet, Take 400 mg by mouth at bedtime, Disp: , Rfl: Review of systems: Constitutional: Denies fever, chills, nausea, vomiting GI: Denies abdominal pain, cramping, loose stool, gastric ulcers Musculoskeletal: Denies low back pain, knee pain, systemic arthritis Neurologic: Denies burning, tingling, transient paralysis OBJECTIVE Physical Examination: DERM: Positive hair growth to b/l feet with good skin turgor noted. Negative openings in skin. No macerations noted interdigitally. Web spaces were clean and dry. No ulcerations were noted. Mild to moderate venous stasis disease bilaterally no ulcerations noted significant incurvation of the nails bilateral Nails 1 through 10 were thickened elongated yellow and crumbly with subungual debris. They were painful to palpation [id number] on the right [id number] on the left. VASC: DP /PT were nonpalpable bilateral. Capillary refill time < 3 seconds Digits 1-5 bilateral NEURO: [place] Cecy 5.07 monofilament was intact B/L. Vibratory sensation was intact B/L Musculoskeletal: Muscle strength was +5 over 5 all intrinsic and extrinsic muscles tested. ASSESSMENT 1. Onychomycosis 2. Pain in right toe(s) 3. Pain in left toe(s) 4. Onychocryptosis 5. Venous insufficiency (chronic) (peripheral) PLAN The patient her caregiver were educated on proper foot care as well as the etiology of onychomycosis. I educated the patient on proper shoe gear as well. Today the nails were debrided both in length and thickness 1 through 10. Educated the patient on venous stasis disease as well as her caregivers present during the examination treatment. Recommended elevation compression stating to me she currently uses compression. Performed slant back procedures of bilateral great toe secondary to incurvation of the nails. Lai Alvarado DPM FACFAS documented in this encounter [facility] 03-02-2024 Hospital Discharge instructions Rehana Aguillon RN - 03/02/2024 12:22 PM EST PERIOPERATIVE DISCHARGE/HOME-GOING INSTRUCTIONS ANESTHESIA - GENERAL (ADULT) If a problem arises, you may contact your physician by calling [phone] and asking for the resident mobile application tester for Dental service. Special Care Needs: Activity: Rest at home today and tomorrow, then progress to your regular activities as tolerated. Diet: Clear liquids are best tolerated at first. If you are not nauseated, you can progress your diet to solid foods as tolerated. Possible post-operative precautions: Call you doctor or clinic for: 1. Signs of infection such as fever or chills. 2. Severe pain that in not relieved by Tylenol or your pain medicine prescription. 3. You may have a sore throat - it is usually gone in 1 to 2 days. Post-anesthesia safety: Possible side effects include drowsiness, dizziness, or inability to think clearly. For your safety, do not drive, drink alcoholic beverages, take any unprescribed medication or make any important decisions for 24 hours. A responsible adult should be with you for 24 hours. If no urine by 6 pm or you become very uncomfortable and can t urinate, call [phone] or come to the emergency room. A risk of anesthesia is post operative nausea and/or vomiting (PONV). Certain patients?are at higher risk than others. Talk to your anesthesiologist about the plan to minimize this risk. In?general, it is best to start with only ice chips or small sips of water, then progress to clear, non-alcoholic fluids. You do not have to eat if you do not feel like it; fluids?are the most important in?the first?24 hours after surgery. If you start to eat, try bananas, applesauce, plain toast, saltine crackers, or broth; avoid fried or fatty foods. Make sure to eat something about 15 minutes before taking any pain medications. Seek medical attention for any prolonged?PONV and signs of dehydration. The day after surgery, a nurse will call to check on you. However, if there are any questions or concerns, please call us at the number listed in the home going instructions. documented in this encounter [facility] 03-02-2024 Miscellaneous Notes Brief Operative Note [facility] OR 3 Chantel Ascencio 29 year old female Surgical Contact Serial Number: [id number] Preoperative Diagnosis: Pre-op Diagnosis * Caries [K02.9] Postoperative Diagnosis: * Caries [K02.9] Procedures: Full mouth x-ray [44784] Prophylaxis [34766] Restorations [10838] Floride application [16293] Surgeon(s): Surgeon(s): Elmer Topete DDS Staff: Table Filler Nurse: Trudi Padilla Component Engineer: Paula Contreras DDS; Melquiades Christie DDS Anesthesia: General Anesthesiologist: Milton Luna MD RESORT HOUSEKEEPER: Adalgisa Smith APRN-DARSHAN Operations Support Specialist: Dayanna Preciado MD Specimen(s): * No specimens in log * Estimated Blood Loss: less than 5 cc Lines/Drains: Peripheral IV Access: 03/02/24 1018 22 gauge Left Hand (Active) Site Assessment WNL;Dressing intact 03/02/24 1020 Infusion Status Port #1 Infusing;Patent 03/02/24 1020 Temporarily Retained Foreign Object: No Location: Object: Anticipated removal date: Findings: Normal Complications: None Status at end of surgery: Stable Activity: weight bearing as tolerated Surgical wound class: No wound. Patient Class: Outpatient Surgery. Is this a patient scheduled as an outpatient that needs to be admitted as an inpatient? No Dr. Topete was present in the OR for the critical portion of the procedure and procedure sign-out. Signed by Paula Contreras DDS 03/02/2024 11:48 AM Cosigned by Elmer Topete DDS at 03/02/2024 11:55 AM EST Blood Attestation: ATTESTATION OF INFORMED CONSENT FOR BLOOD: The transfusion of blood and/or blood components were discussed with the patient and/or legal school admissions representative. The risks, benefits and alternatives were reviewed. Questions regarding blood transfusions were answered. The patient /or the patient s legal school admissions representative agree with the plan for transfusion of blood and/or blood components. Surgical Case Number Data Unavailable Operating Room Data Unavailable Preoperative Diagnosis(es): Caries [k02.9] Surgeon: Dr. Topete Is Analyst Surgeon: Melquiades Arias DDS - Paula Contreras DDS Anesthesia: General- Nasal ETT Estimated Blood Loss: Less than 5 cc IV Fluids: 50 cc Urine Output: Not measured. Findings: The patient was brought to the operating room and placed in the supine position on the operating room table. Following satisfactory induction of GA. The patient was intubated with a nasal endotracheal tube. She was then prepped and drapped in the usual sterile fashion for dental procedures. Full mouth series were then taken and an oral examination was completed. A moistened throat pack was then placed. Full mouth scaling The radiographs were examined by the attending and the resident and used in conjunction with th oral exam to formulate a treatment plan. The restorative aspect of the treatment plan included the following: Composite caodaism on tooth #7 surface ML. Amalgam restorations on teeth #29 O, #30 OL and #31 O surface. These restorations were placed following excavation of the carious lesions on each tooth. The remaining dentition was then polished with prophy paste. The oral cavity was irrigated and suctioned then the throat pack was removed. Fluoride treament was placed on the remaining dentition. The patient tolerated the procedure well was extubated in the operating room, and taken to the PACU in stable condition. Complications: None Status at end of surgery: Stable Medications: No outpatient medications have been marked as taking for the 03/02/24 encounter (Hospital Encounter). Dictated by: Paula Contreras DDS: Dr. Topete was present for the critical portions of the procedure. Paula Contreras DDS 03/01/2024 6:15 PM Cosigned by Elmer Topete DDS at 03/02/2024 11:56 AM EST documented in this encounter [facility] 03-02-2024 Surgery Postoperative evaluation and management note Brief Operative Note [facility] OR 3 Chantel Ascencio 29 year old female Surgical Contact Serial Number: [id number] Preoperative Diagnosis: Pre-op Diagnosis * Caries [K02.9] Postoperative Diagnosis: * Caries [K02.9] Procedures: Full mouth x-ray [72491] Prophylaxis [69528] Restorations [25088] Floride application [54154] Surgeon(s): Surgeon(s): Elmer Topete DDS Staff: Table Filler Nurse: Trudi Padilla Component Engineer: Paula Contreras DDS; Melquiades Christie DDS Anesthesia: General Anesthesiologist: Milton Luna MD RESORT HOUSEKEEPER: Adalgisa Smith APRN-DARSHAN Operations Support Specialist: Dayanna Preciado MD Specimen(s): * No specimens in log * Estimated Blood Loss: less than 5 cc Lines/Drains: Peripheral IV Access: 03/02/24 1018 22 gauge Left Hand (Active) Site Assessment WNL;Dressing intact 03/02/24 1020 Infusion Status Port #1 Infusing;Patent 03/02/24 1020 Temporarily Retained Foreign Object: No Location: Object: Anticipated removal date: Findings: Normal Complications: None Status at end of surgery: Stable Activity: weight bearing as tolerated Surgical wound class: No wound. Patient Class: Outpatient Surgery. Is this a patient scheduled as an outpatient that needs to be admitted as an inpatient? No Dr. Topete was present in the OR for the critical portion of the procedure and procedure sign-out. Signed by Palua Contreras DDS 03/02/2024 11:48 AM Cosigned by Elmer Topete DDS at 03/02/2024 11:55 AM EST [facility] 03-02-2024 History and physical note Images from the original note were not included. Surgical History and Physical [facility] [address] [place] [address] Name: Chantel Ascencio : 1995 29 year old CSN: [id number] Attending: Elmer Topete DDS Date of Admission: 03/02/2024 8:38 AM Room/Bed: [facility] OR/NONE Planned Procedure: Procedure(s): DENTAL RESTORATIONS HPI: Chantel Ascencio is a 29 year old female with Pre-Op Diagnosis Codes: * Caries [K02.9]. Past Medical History: Past Medical History: Diagnosis Date Alopecia Autism (HCC) Biliary dyskinesia Bipolar disorder (HCC) Constipation Dysphagia Furunculosis BERT (generalized anxiety disorder) GERD (gastroesophageal reflux disease) Gato's disease Hypothyroidism Intellectual disability OCD (obsessive compulsive disorder) ED (obstructive sleep apnea) No CPAP Pervasive developmental disorder (HCC) Seizure (HCC) Strabismus Thyroid nodule Past Surgical History: Review of patient's past surgical history indicates: EXTRACTION, TOOTH (09/15/2014) Procedure: Wilson teeth; Surgeon: Bradley Goodwin DDS; Location: PERIOPERATIVE SERVICES; Service: Oral EUA, ORAL (09/15/2014) Procedure: EUA, ORAL; Surgeon: Bradley Goodwin DDS; Location: PERIOPERATIVE SERVICES; Service: Oral Medications: Current Facility-Administered Medications Medication Dose Route Frequency Last Rate Last Admin naloxone (NARCAN) 0.4 MG/ML injection 0.4 mg Intravenous Push PRN ondansetron (ZOFRAN) 4 MG/2ML injection 4 mg Intravenous Push PACU once PRN sodium chloride 0.9 % injection 3 mL Intravenous Push PRN naloxone (NARCAN) 0.4 MG/ML injection 0.4 mg Intravenous Push PRN Family History: No family history on file. Social History: Social History Socioeconomic History Marital status: Single Tobacco Use Smoking status: Never Smokeless tobacco: Never Substance and Sexual Activity Alcohol use: Never Drug use: Never Allergies: Linzess [linaclotide] and Zarontin [ethosuximide] Vitals Signs: BP 101/49 (BP Location: right arm) Pulse 85 Resp 16 Ht 5' 4 (1.626 m) Wt 136 lb 9.6 oz (62 kg) LMP (LMP Unknown) Comment: hcg negative SpO2 100% BMI 23.45 kg/m ROS: Denies fever, chills, chest pain, SOB, palpitations. Objective Physical Exam: Gen: Eyes: Normal Pulm: Chest clear to auscultation bilaterally CV: No murmurs, gallops, or rubs Abd: No masses Neuro: No motor deficits Skin: No gross or obvious abnormalities on visible skin Psych: alert and oriented to person, place and time Imaging: Laboratory Values and Test Results: No results found for this or any previous visit (from the past 16047 hours). BMP (last 3 years, up to 8 values) No lab values to display. No results found for this or any previous visit (from the past 8760 hours). ASSESSMENT & PLAN Assessment: Chantel Ascencio is a 29 year old female with Pre-Op Diagnosis Codes: * Caries [K02.9]. Plan: I have personally reviewed the patient's medical history and performed the physical examination below immediately before the procedure. Medications, allergies, and pertinent laboratory and diagnostic tests were also reviewed at this time. Procedure is still indicated. Yes Seen an evaluated by Melquiades Stewart DDS. Discussed with attending Elmer Topete DDS. Melquiades Stewart DDS 03/02/24 9:38 AM Cosigned by Elmer Topete DDS at 03/02/2024 11:48 AM EST [facility] Work Phone: 03-02-2024 Note Surgical History and Physical [facility] [address] [place], [place] [id number] Name: Chantel Ascencio : 1995 29 year old CSN: [id number] Attending: Elmer Topete DDS Date of Admission: 03/02/2024 8:38 AM Room/Bed: [facility] OR/NONE Planned Procedure: Procedure(s): DENTAL RESTORATIONS HPI: Chantel Ascencio is a 29 year old female with Pre-Op Diagnosis Codes: * Caries [K02.9]. Past Medical History: Past Medical History: Diagnosis Date Alopecia Autism (HCC) Biliary dyskinesia Bipolar disorder (HCC) Constipation Dysphagia Furunculosis BERT (generalized anxiety disorder) GERD (gastroesophageal reflux disease) Gato's disease Hypothyroidism Intellectual disability OCD (obsessive compulsive disorder) ED (obstructive sleep apnea) No CPAP Pervasive developmental disorder (HCC) Seizure (HCC) Strabismus Thyroid nodule Past Surgical History: Review of patient's past surgical history indicates: EXTRACTION, TOOTH (09/15/2014) Procedure: Wilson teeth; Surgeon: Bradley Goodwin DDS; Location: PERIOPERATIVE SERVICES; Service: Oral EUA, ORAL (09/15/2014) Procedure: EUA, ORAL; Surgeon: Bradley Goodwin DDS; Location: PERIOPERATIVE SERVICES; Service: Oral Medications: Current Facility-Administered Medications Medication Dose Route Frequency Last Rate Last Admin naloxone (NARCAN) 0.4 MG/ML injection 0.4 mg Intravenous Push PRN ondansetron (ZOFRAN) 4 MG/2ML injection 4 mg Intravenous Push PACU once PRN sodium chloride 0.9 % injection 3 mL Intravenous Push PRN naloxone (NARCAN) 0.4 MG/ML injection 0.4 mg Intravenous Push PRN Family History: No family history on file. Social History: Social History Socioeconomic History Marital status: Single Tobacco Use Smoking status: Never Smokeless tobacco: Never Substance and Sexual Activity Alcohol use: Never Drug use: Never Allergies: Linzess [linaclotide] and Zarontin [ethosuximide] Vitals Signs: BP 101/49 (BP Location: right arm) Pulse 85 Resp 16 Ht 5' 4 (1.626 m) Wt 136 lb 9.6 oz (62 kg) LMP (LMP Unknown) Comment: hcg negative SpO2 100% BMI 23.45 kg/m??? ROS: Denies fever, chills, chest pain, SOB, palpitations. Objective Physical Exam: Gen: Eyes: Normal Pulm: Chest clear to auscultation bilaterally CV: No murmurs, gallops, or rubs Abd: No masses Neuro: No motor deficits Skin: No gross or obvious abnormalities on visible skin Psych: alert and oriented to person, place and time Imaging: Laboratory Values and Test Results: No results found for this or any previous visit (from the past 13544 hours). BMP (last 3 years, up to 8 values) No lab values to display. No results found for this or any previous visit (from the past 8760 hours). ASSESSMENT AND PLAN Assessment: Chantel Ascencio is a 29 year old female with Pre-Op Diagnosis Codes: * Caries [K02.9]. Plan: I have personally reviewed the patient's medical history and performed the physical examination below immediately before the procedure. Medications, allergies, and pertinent laboratory and diagnostic tests were also reviewed at this time. Procedure is still indicated. Yes Seen an evaluated by Melquiades Stewart DDS. Discussed with attending Elmer Topete DDS. Melquiades Stewart DDS 03/02/24 9:38 AM [facility] 03-02-2024 History and physical note Surgical Attestation: I have reviewed the patient's History and Physical Examination. I have personally seen and evaluated the patient, repeating cabrera portions. There is no significant interval change. Surgery is still indicated. Yes Consent reviewed and signed by patient/family: Yes Operative site verified and marked: site verified but not marked as not anatomically possible Melquiades Stewart DDS 03/02/2024 9:38 AM Cosigned by Elmer Topete DDS at 03/02/2024 11:48 AM EST HOSPITAL [facility] 03-02-2024 Note Surgical Attestation : I have reviewed the patient's History and Physical Examination. I have personally seen and evaluated the patient, repeating cabrera portions. There is no significant interval change. Surgery is still indicated. Yes Consent reviewed and signed by patient/family: Yes Operative site verified and marked: site verified but not marked as not anatomically possible Melquiades Stewart DDS 03/02/2024 9:38 AM [facility] 03-02-2024 Progress note Formatting of t his note is different from the original. Blood Attestation: ATTESTATION OF INFORMED CONSENT FOR BLOOD: The transfusion of blood and/or blood components were discussed with the patient and/or legal school admissions representative. The risks, benefits and alternatives were reviewed. Questions regarding blood transfusions were answered. The patient /or the patient s legal school admissions representative agree with the plan for transfusion of blood and/or blood components. [employer] Work Phone: 03-02-2024 History of Present illness Narrative ----- Saturday, March 02, 2024 at 11:38:59 AM ----- ----- Provider: Pradip Rebolledo DDS -- Clinic: [facility] ----- [place] notes, pt is ready for tx [place]. X-Rays look good, few cavities found and confirmed clinically. restos completed. OP Note by Paula Contreras DDS at 03/01/2024 6:14 PM Author: Paula Contreras DDS Service: Dentistry Author Type: Resident Filed: 03/02/2024 11:56 AM Date of Service: 03/01/2024 6:14 PM Note Type: OP Note Status: Cosign Needed Mechanical System Technician: Paula Contreras DDS (Resident) Cosign Required: Yes Expand All Collapse All Surgical Case Number Data Unavailable Operating Room Data Unavailable Preoperative Diagnosis(es): Caries [k02.9] Surgeon: Dr. Topete Is Analyst Surgeon: Melquiades Arias DDS - Paula Contreras DDS Anesthesia: General- Nasal ETT Estimated Blood Loss: Less than 5 cc IV Fluids: 50 cc Urine Output: Not measured. Findings: The patient was brought to the operating room and placed in the supine position on the operating room table. Following satisfactory induction of GA. The patient was intubated with a nasal endotracheal tube. She was then prepped and drapped in the usual sterile fashion for dental procedures. Full mouth series were then taken and an oral examination was completed. A moistened throat pack was then placed. Full mouth scaling The radiographs were examined by the attending and the resident and used in conjunction with th oral exam to formulate a treatment plan. The restorative aspect of the treatment plan included the following: Composite caodaism on tooth #7 surface ML. Amalgam restorations on teeth #29 O, #30 OL and #31 O surface. These restorations were placed following excavation of the carious lesions on each tooth. The remaining dentition was then polished with prophy paste. The oral cavity was irrigated and suctioned then the throat pack was removed. Fluoride treament was placed on the remaining dentition. The patient tolerated the procedure well was extubated in the operating room, and taken to the PACU in stable condition. Complications: None Status at end of surgery: Stable Medications: Medications Taking No outpatient medications have been marked as taking for the 03/02/24 encounter (Hospital Encounter). Dictated by: Paula Contreras DDS: Dr. Topete was present for the critical portions of the procedure. ----- Signed on Saturday, March 02, 2024 at 11:57:17 AM ----- ----- Provider: Pradip Rebolledo DDS -- Clinic: [facility] ----- documented in this encounter [facility] 03-01-2024 Surgery Surgical operation note Surgical Case Number Data Unavailable Operating Room Data Unavailable Preoperative Diagnosis(es): Caries [k02.9] Surgeon: Dr. Topete Is Analyst Surgeon: Melquiades Arias DDS - Paula Contreras DDS Anesthesia: General- Nasal ETT Estimated Blood Loss: Less than 5 cc IV Fluids: 50 cc Urine Output: Not measured. Findings: The patient was brought to the operating room and placed in the supine position on the operating room table. Following satisfactory induction of GA. The patient was intubated with a nasal endotracheal tube. She was then prepped and drapped in the usual sterile fashion for dental procedures. Full mouth series were then taken and an oral examination was completed. A moistened throat pack was then placed. Full mouth scaling The radiographs were examined by the attending and the resident and used in conjunction with th oral exam to formulate a treatment plan. The restorative aspect of the treatment plan included the following: Composite caodaism on tooth #7 surface ML. Amalgam restorations on teeth #29 O, #30 OL and #31 O surface. These restorations were placed following excavation of the carious lesions on each tooth. The remaining dentition was then polished with prophy paste. The oral cavity was irrigated and suctioned then the throat pack was removed. Fluoride treament was placed on the remaining dentition. The patient tolerated the procedure well was extubated in the operating room, and taken to the PACU in stable condition. Complications: None Status at end of surgery: Stable Medications: No outpatient medications have been marked as taking for the 03/02/24 encounter (Hospital Encounter). Dictated by: Paula Contreras DDS: Dr. Topete was present for the critical portions of the procedure. Paula Contreras DDS 03/01/2024 6:15 PM Cosigned by Elmer Topete DDS at 03/02/2024 11:56 AM EST [facility] 03-01-2024 Note Surgical Attestation : I have reviewed the patient's History and Physical Examination. I have personally seen and evaluated the patient, repeating cabrera portions. There is no significant interval change. Surgery is still indicated. Yes Consent reviewed and signed by patient/family: Yes Operative site verified and marked: Verified but not marked Paula Contreras DDS 03/01/2024 6:10 PM [email or web address] Telephone encounter Note Anesthesia consent obtained and scanned into [facility]. Scheduled for surgery 03/02/2024. [facility] 02-24-2024 Miscellaneous Notes Anesthesia consent obtained and scanned into [facility]. Scheduled for surgery 03/02/2024. documented in this encounter [facility] 02-21-2024 Telephone encounter Note Anesthesia consent obtained and scanned into [facility]. Scheduled for surgery 03/02/2024. [facility] 02-21-2024 Miscellaneous Notes Anesthesia consent obtained and scanned into [facility]. Scheduled for surgery 03/02/2024. documented in this encounter [facility] 02-19-2024 Instructions Kelly Cabello RN - 02/19/2024 12:19 PM EDT CURRENT MEDICATIONS: Aspirin: No NSAIDS: No Other Antiplatelet Medication: No Anticoagulants: No Steroids: No SGLT-2/GLP-1: No PATIENT MEDICATION INSTRUCTIONS: On the morning of your surgery, please take only the following medications, with a small sip of water: NONE. (Note: pt requires medication crushed/in pudding/applesauce or other substance). DAY OF SURGERY NOTES: Please use this CHECKLIST to prepare for your surgery/procedure: ? Assume that any lab or testing done during your Pre-admission testing appointment is within normal limits unless otherwise contacted. ? Expect a call from [facility] [employer] [facility] one business day prior to surgery for surgery arrival time and location. ? Please plan to restart your medications the day after surgery unless otherwise explicitly instructed. ? Please contact your surgeon s/proceduralist s office for any surgical or recovery types of questions. ? CANCELLING YOUR SURGERY/PROCEDURE: If you get a cold, are not feeling well, or become , please call your surgeon s office as soon as possible. ? Refer to your Preparing for Your Surgery/Procedure booklet or [facility]/surgery if you have questions. Contact the Pre-Admission Testing department at [phone] or your surgeon's office with any questions that are not answered. ? Eating and drinking before surgery: Adult Patients: No food or drink for 8 hours prior to surgery check in time. Plain water is allowed up to 2 hours prior to your surgery arrival time. A sip of water with approved morning medications is acceptable. Post-op Nausea and Vomiting: A risk of anesthesia is nausea and/or vomiting (PONV). Certain patients are at higher risk than others. Talk to your anesthesiologist about the plan to minimize this risk. In general, it is best to start with only ice chips or small sips of water, then progress to clear, non-alcoholic fluids. You do not have to eat if you do not feel like it; fluids are the most important in the first 24 hours after surgery. If you start to eat, try bananas, applesauce, plain toast, saltine crackers, or broth; avoid fried or fatty foods. Make sure to eat something about 15 minutes before taking any pain medications. Seek medical attention for any prolonged PONV and signs of dehydration. Patients whose assigned sex at was female, and are starting puberty or beyond, will be urine tested for per hospital policy. ON THE DAY OF SURGERY: ? DO bring your ID, insurance card, medication list, and a small amount of montero for filling prescriptions and any medical co-pays. ? Do NOT wear any jewelry, (including rings, earrings, or mouth, tongue, or body piercings). Metal jewelry could cause constriction, amputation, or lane. Loose or bulky things in your mouth can be unsafe and result in breathing problems. ? DO bring glasses if you wear contacts and other assistance items such as oxygen, inhaler, cane, walker, etc. ? Do NOT bring valuables, credit cards, or large amounts of montero. ? Do NOT wear lotion or strong-smelling fragrance (perfume, cologne, cream or lotion). ? ARRANGE FOR A RIDE: If you are scheduled to go home the same day of surgery, a responsible adult MUST drive or accompany you home in a car, cab, shared ride service, or Metro-van. You will not be allowed to drive yourself home or travel home alone. Your surgery may be cancelled if you do not have a ride. A responsible adult must stay with you after surgery. Please call [facility] [employer] if you need transportation assistance or have concerns about going home [phone]. ? PLEASE BE ON TIME. A late arrival may result in the cancellation/ delay of your surgery. Thank you for choosing [facility]; it is our pleasure to care for you documented in this encounter [facility] 02-19-2024 Evaluation note Telephone History Chantel Ascencio, [id number] 02/19/2024 Patient was identified by name and date of via Ivon, caregiver. Needs: Physical, Neck Circumference, BHCG, and ED on DOS. Note: OSH records/labs scanned to director of social media marketing. If the patient becomes ill prior to procedure or surgery, they are to call their provider or surgeon's office directly. 29 year old 136.6 lbs 5' 4 Date of Surgery: 03/02 Surgeon: Yoselyn Type of Surgery: DENTAL RESTORATIONS HISTORY OF PRESENT ILLNESS: telephone history for the upcoming surgery at [facility], [address] [place], enter through the west entrance doors. STOP-BANG Row Name 02/19/24 1154 History of sleep apnea? Yes NO PSG found, NO CPAP (Mild ED per Mom) EXERCISE CAPACITY: <4 mets and Uses a wheel chair ALLERGIES: Zarontin [ethosuximide] PREVIOUS ANESTHETIC EXPERIENCES AND INTUBATION HISTORY: No previous anesthetic complication FAMILY HISTORY OF ANESTHETIC COMPLICATIONS: None per Mom PAST MEDICAL HISTORY: Past Medical History: Diagnosis Date Alopecia Autism (HCC) Biliary dyskinesia Bipolar disorder (HCC) Constipation Dysphagia Furunculosis BERT (generalized anxiety disorder) GERD (gastroesophageal reflux disease) Gato's disease Hypothyroidism Intellectual disability OCD (obsessive compulsive disorder) ED (obstructive sleep apnea) No CPAP Pervasive developmental disorder (HCC) Seizure (HCC) Strabismus Thyroid nodule PROBLEM LIST: Patient Active Problem List: Caries [K02.9] Past Medical History and Review of Systems Pulmonary (+) sleep apnea Comment: Denies SOB, wheezes, fever, chills, increased sputum, or general malaise. 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 ROS Neuro/Psych (+) bipolar disorder, seizures, intellectual disability Cardiovascular - negative ROS GI/Hepatic/Renal (+) GERD Heme/Other - negative ROS PAST SURGICAL HISTORY: Past Surgical History: Procedure Laterality Date EUA, ORAL 09/15/2014 Procedure: EUA, ORAL; Surgeon: Bradley Goodwin DDS; Location: PERIOPERATIVE SERVICES; Service: Oral EXTRACTION, TOOTH Bilateral 09/15/2014 Procedure: Wilson teeth; Surgeon: Bradley Goodwin DDS; Location: PERIOPERATIVE SERVICES; Service: Oral SOCIAL HISTORY: Social History Socioeconomic History Marital status: Single Tobacco Use Smoking status: Never Smokeless tobacco: Never Substance and Sexual Activity Alcohol use: Never Drug use: Never PAIN ASSESSMENT: Severity: 0 Location: N/A LABORATORY DATA: Type & Screen (Last result in the past 30 days) No lab values to display. CBC (last 3 years, up to 8 values) No lab values to display. BMP (last 3 years, up to 8 values) No lab values to display. Basic Metabolic Panel No lab values to display. PT/PTT/INR (last 3 years, up to 8 values) No lab values to display. Arterial Blood Gases None No result for BNP LFT's (last 3 years, up to 8 values) No lab values to display. Urinalysis No lab values to display. Lipids (last 3 years, up to 8 values) No lab values to display. No results found for: TSH No results found for: HBA1C TESTS REVIEWED: CXRay: No Chest x-ray found EKG: Last ECG Date: Not Found ECHO: Echocardiogram date: Not Found No results found for this basename: LVEF Stress test date: Last StressTest: none found going back to 09/10/2014 CURRENT MEDICATION LIST: Current Outpatient Medications Medication Sig Dispense Refill levothyroxine (SYNTHROID) 200 MCG tablet Take 200 mcg by mouth daily. Acetaminophen (Tylenol) 325 MG CAPS Take by mouth. divalproex (DEPAKOTE) 125 MG EC tablet Take 125 mg by mouth 3 times daily. melatonin 3 MG TABS tablet Take 3 mg by mouth at bedtime. norethindrone-ethinyl estradiol (Nortrel 1/35, 21,) 1-35 MG-MCG tablet Take 1 Tablet by mouth daily. paliperidone (INVEGA) 3 MG 24 hour tablet Take 6 mg by mouth daily. polyethylene glycol (MIRALAX) packet Dissolve 17 g in 8 ounces of liquid and drink daily. QUEtiapine Fumarate (SEROQUEL ORAL) Take by mouth. busPIRone (BUSPAR) 30 MG tablet Take 30 mg by mouth daily. famotidine (PEPCID) 40 MG tablet Take 40 mg by mouth daily. GUANFACINE HCL ORAL Take by mouth. lamoTRIgine (LaMICtal) 100 MG tablet Take 100 mg by mouth daily. loratadine (CLARITIN) 10 MG tablet Take 10 mg by mouth daily. chlorhexidine (PERIDEX) 0.12 % oral solution Take 15 mL by mouth 2 times daily. 1 Bottle 0 ibuprofen (MOTRIN) 600 MG tablet Take 1 Tab by mouth every 6 hours as needed for Pain. 30 Tab 1 trihexyphenidyl 2 MG tablet Take 2 mg by mouth 3 times daily. Zinc Gluconate 50 MG TABS Take by mouth. Fluticasone Propionate (FLONASE NASAL) [place] into each nostril. Selenium (SELENIMIN ORAL) Take by mouth. Sennosides (SENNA) 15 MG tablet Take 1 Tab by mouth daily as needed for Constipation. topiramate (TOPIRAGEN) 25 MG tablet Take 75 mg by mouth 2 times daily. Lactobacillus (ACIDOPHILUS) CAPS Take by mouth. CLONIDINE HCL ORAL Take by mouth. docusate sodium (COLACE) 100 MG capsule Take 100 mg by mouth 2 times daily. No current facility-administered medications for this visit. CURRENT MEDICATIONS: Aspirin: No NSAIDS: No Other Antiplatelet Medication: No Anticoagulants: No Steroids: No SGLT-2/GLP-1: No PATIENT MEDICATION INSTRUCTIONS: On the morning of your surgery, please take only the following medications, with a small sip of water: NONE. (Note: pt requires medication crushed/in pudding/applesauce or other substance). DAY OF SURGERY NOTES: Please use this CHECKLIST to prepare for your surgery/procedure: ? Assume that any lab or testing done during your Pre-admission testing appointment is within normal limits unless otherwise contacted. ? Expect a call from [employer] one business day prior to surgery for surgery arrival time and location. ? Please plan to restart your medications the day after surgery unless otherwise explicitly instructed. ? Please contact your surgeon s/proceduralist s office for any surgical or recovery types of questions. ? CANCELLING YOUR SURGERY/PROCEDURE: If you get a cold, are not feeling well, or become , please call your surgeon s office as soon as possible. ? Refer to your Preparing for Your Surgery/Procedure booklet or [facility]org/surgery if you have questions. Contact the Pre-Admission Testing department at [phone] or your surgeon's office with any questions that are not answered. ? Eating and drinking before surgery: Adult Patients: No food or drink for 8 hours prior to surgery check in time. Plain water is allowed up to 2 hours prior to your surgery arrival time. A sip of water with approved morning medications is acceptable. Post-op Nausea and Vomiting: A risk of anesthesia is nausea and/or vomiting (PONV). Certain patients are at higher risk than others. Talk to your anesthesiologist about the plan to minimize this risk. In general, it is best to start with only ice chips or small sips of water, then progress to clear, non-alcoholic fluids. You do not have to eat if you do not feel like it; fluids are the most important in the first 24 hours after surgery. If you start to eat, try bananas, applesauce, plain toast, saltine crackers, or broth; avoid fried or fatty foods. Make sure to eat something about 15 minutes before taking any pain medications. Seek medical attention for any prolonged PONV and signs of dehydration. Patients whose assigned sex at was female, and are starting puberty or beyond, will be urine tested for per hospital policy. ON THE DAY OF SURGERY: ? DO bring your ID, insurance card, medication list, and a small amount of montero for filling prescriptions and any medical co-pays. ? Do NOT wear any jewelry, (including rings, earrings, or mouth, tongue, or body piercings). Metal jewelry could cause constriction, amputation, or lane. Loose or bulky things in your mouth can be unsafe and result in breathing problems. ? DO bring glasses if you wear contacts and other assistance items such as oxygen, inhaler, cane, walker, etc. ? Do NOT bring valuables, credit cards, or large amounts of montero. ? Do NOT wear lotion or strong-smelling fragrance (perfume, cologne, cream or lotion). ? ARRANGE FOR A RIDE: If you are scheduled to go home the same day of surgery, a responsible adult MUST drive or accompany you home in a car, cab, shared ride service, or Metro-van. You will not be allowed to drive yourself home or travel home alone. Your surgery may be cancelled if you do not have a ride. A responsible adult must stay with you after surgery. Please call [employer] if you need transportation assistance or have concerns about going home [phone]. ? PLEASE BE ON TIME. A late arrival may result in the cancellation/ delay of your surgery. [facility]; it is our pleasure to care for you Kelly Cabello RN Time Spent Performing this Telephone History: 48 with follow-up [facility]: [facility] 02-19-2024 Miscellaneous Notes Telephone History Chantel Ascencio, [id number] 02/19/2024 Patient was identified by name and date of via Ivon, caregiver. Needs: Physical, Neck Circumference, BHCG, and ED on DOS. If the patient becomes ill prior to procedure or surgery, they are to call their provider or surgeon's office directly. 29 year old 136.6 lbs 5' 4 Date of Surgery: 03/02 Surgeon: Yoselyn Type of Surgery: DENTAL RESTORATIONS HISTORY OF PRESENT ILLNESS: telephone history for the upcoming surgery at [facility], [address] [place], enter through the [place] entrance doors. STOP-BANG Row Name 02/19/24 0594 History of sleep apnea? Yes NO PSG found, NO CPAP (Mild ED per Mom) EXERCISE CAPACITY: <4 mets and Uses a wheel chair ALLERGIES: Zarontin [ethosuximide] PREVIOUS ANESTHETIC EXPERIENCES AND INTUBATION HISTORY: No previous anesthetic complication FAMILY HISTORY OF ANESTHETIC COMPLICATIONS: None per Mom PAST MEDICAL HISTORY: Past Medical History: Diagnosis Date Alopecia Autism (HCC) Biliary dyskinesia Bipolar disorder (HCC) Constipation Dysphagia Furunculosis BERT (generalized anxiety disorder) GERD (gastroesophageal reflux disease) Gato's disease Hypothyroidism Intellectual disability OCD (obsessive compulsive disorder) ED (obstructive sleep apnea) No CPAP Pervasive developmental disorder (HCC) Seizure (HCC) Strabismus Thyroid nodule PROBLEM LIST: Patient Active Problem List: Caries [K02.9] Past Medical History and Review of Systems Pulmonary (+) sleep apnea Comment: Denies SOB, wheezes, fever, chills, increased sputum, or general malaise. 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 ROS Neuro/Psych (+) bipolar disorder, seizures, intellectual disability Cardiovascular - negative ROS GI/Hepatic/Renal (+) GERD Heme/Other - negative ROS PAST SURGICAL HISTORY: Past Surgical History: Procedure Laterality Date EUA, ORAL 09/15/2014 Procedure: EUA, ORAL; Surgeon: Bradley Goodwin DDS; Location: PERIOPERATIVE SERVICES; Service: Oral EXTRACTION, TOOTH Bilateral 09/15/2014 Procedure: Wilson teeth; Surgeon: Bradley Goodwin DDS; Location: PERIOPERATIVE SERVICES; Service: Oral SOCIAL HISTORY: Social History Socioeconomic History Marital status: Single Tobacco Use Smoking status: Never Smokeless tobacco: Never Substance and Sexual Activity Alcohol use: Never Drug use: Never PAIN ASSESSMENT: Severity: 0 Location: N/A LABORATORY DATA: Type & Screen (Last result in the past 30 days) No lab values to display. CBC (last 3 years, up to 8 values) No lab values to display. BMP (last 3 years, up to 8 values) No lab values to display. Basic Metabolic Panel No lab values to display. PT/PTT/INR (last 3 years, up to 8 values) No lab values to display. Arterial Blood Gases None No result for BNP LFT's (last 3 years, up to 8 values) No lab values to display. Urinalysis No lab values to display. Lipids (last 3 years, up to 8 values) No lab values to display. No results found for: TSH No results found for: HBA1C TESTS REVIEWED: CXRay: No Chest x-ray found EKG: Last ECG Date: Not Found ECHO: Echocardiogram date: Not Found No results found for this basename: LVEF Stress test date: Last StressTest: none found going back to 09/10/2014 CURRENT MEDICATION LIST: Current Outpatient Medications Medication Sig Dispense Refill levothyroxine (SYNTHROID) 200 MCG tablet Take 200 mcg by mouth daily. Acetaminophen (Tylenol) 325 MG CAPS Take by mouth. divalproex (DEPAKOTE) 125 MG EC tablet Take 125 mg by mouth 3 times daily. melatonin 3 MG TABS tablet Take 3 mg by mouth at bedtime. norethindrone-ethinyl estradiol (Nortrel 1/35, 21,) 1-35 MG-MCG tablet Take 1 Tablet by mouth daily. paliperidone (INVEGA) 3 MG 24 hour tablet Take 6 mg by mouth daily. polyethylene glycol (MIRALAX) packet Dissolve 17 g in 8 ounces of liquid and drink daily. QUEtiapine Fumarate (SEROQUEL ORAL) Take by mouth. busPIRone (BUSPAR) 30 MG tablet Take 30 mg by mouth daily. famotidine (PEPCID) 40 MG tablet Take 40 mg by mouth daily. GUANFACINE HCL ORAL Take by mouth. lamoTRIgine (LaMICtal) 100 MG tablet Take 100 mg by mouth daily. loratadine (CLARITIN) 10 MG tablet Take 10 mg by mouth daily. chlorhexidine (PERIDEX) 0.12 % oral solution Take 15 mL by mouth 2 times daily. 1 Bottle 0 ibuprofen (MOTRIN) 600 MG tablet Take 1 Tab by mouth every 6 hours as needed for Pain. 30 Tab 1 trihexyphenidyl 2 MG tablet Take 2 mg by mouth 3 times daily. Zinc Gluconate 50 MG TABS Take by mouth. Fluticasone Propionate (FLONASE NASAL) [place] into each nostril. Selenium (SELENIMIN ORAL) Take by mouth. Sennosides (SENNA) 15 MG tablet Take 1 Tab by mouth daily as needed for Constipation. topiramate (TOPIRAGEN) 25 MG tablet Take 75 mg by mouth 2 times daily. Lactobacillus (ACIDOPHILUS) CAPS Take by mouth. CLONIDINE HCL ORAL Take by mouth. docusate sodium (COLACE) 100 MG capsule Take 100 mg by mouth 2 times daily. No current facility-administered medications for this visit. CURRENT MEDICATIONS: Aspirin: No NSAIDS: No Other Antiplatelet Medication: No Anticoagulants: No Steroids: No SGLT-2/GLP-1: No PATIENT MEDICATION INSTRUCTIONS: On the morning of your surgery, please take only the following medications, with a small sip of water: NONE. (Note: pt requires medication crushed/in pudding/applesauce or other substance). DAY OF SURGERY NOTES: Please use this CHECKLIST to prepare for your surgery/procedure: ? Assume that any lab or testing done during your Pre-admission testing appointment is within normal limits unless otherwise contacted. ? Expect a call from [employer] one business day prior to surgery for surgery arrival time and location. ? Please plan to restart your medications the day after surgery unless otherwise explicitly instructed. ? Please contact your surgeon s/proceduralist s office for any surgical or recovery types of questions. ? CANCELLING YOUR SURGERY/PROCEDURE: If you get a cold, are not feeling well, or become , please call your surgeon s office as soon as possible. ? Refer to your Preparing for Your Surgery/Procedure booklet or [facility]org/surgery if you have questions. Contact the Pre-Admission Testing department at [phone] or your surgeon's office with any questions that are not answered. ? Eating and drinking before surgery: Adult Patients: No food or drink for 8 hours prior to surgery check in time. Plain water is allowed up to 2 hours prior to your surgery arrival time. A sip of water with approved morning medications is acceptable. Post-op Nausea and Vomiting: A risk of anesthesia is nausea and/or vomiting (PONV). Certain patients are at higher risk than others. Talk to your anesthesiologist about the plan to minimize this risk. In general, it is best to start with only ice chips or small sips of water, then progress to clear, non-alcoholic fluids. You do not have to eat if you do not feel like it; fluids are the most important in the first 24 hours after surgery. If you start to eat, try bananas, applesauce, plain toast, saltine crackers, or broth; avoid fried or fatty foods. Make sure to eat something about 15 minutes before taking any pain medications. Seek medical attention for any prolonged PONV and signs of dehydration. Patients whose assigned sex at was female, and are starting puberty or beyond, will be urine tested for per hospital policy. ON THE DAY OF SURGERY: ? DO bring your ID, insurance card, medication list, and a small amount of montero for filling prescriptions and any medical co-pays. ? Do NOT wear any jewelry, (including rings, earrings, or mouth, tongue, or body piercings). Metal jewelry could cause constriction, amputation, or lane. Loose or bulky things in your mouth can be unsafe and result in breathing problems. ? DO bring glasses if you wear contacts and other assistance items such as oxygen, inhaler, cane, walker, etc. ? Do NOT bring valuables, credit cards, or large amounts of montero. ? Do NOT wear lotion or strong-smelling fragrance (perfume, cologne, cream or lotion). ? ARRANGE FOR A RIDE: If you are scheduled to go home the same day of surgery, a responsible adult MUST drive or accompany you home in a car, cab, shared ride service, or Metro-van. You will not be allowed to drive yourself home or travel home alone. Your surgery may be cancelled if you do not have a ride. A responsible adult must stay with you after surgery. Please call [employer] if you need transportation assistance or have concerns about going home [phone]. ? PLEASE BE ON TIME. A late arrival may result in the cancellation/ delay of your surgery. Thank you for choosing [facility]; it is our pleasure to care for you Kelly Cabello RN Time Spent Performing this Telephone History: 48 with follow-up [facility]: documented in this encounter [employer] 02-19-2024 Miscellaneous Notes Telephone History Chantel Ascencio, [id number] 02/19/2024 Patient was identified by name and date of via Ivon, caregiver. Needs: Physical, Neck Circumference, BHCG, and ED on DOS. Note: OSH records/labs scanned to director of social media marketing. If the patient becomes ill prior to procedure or surgery, they are to call their provider or surgeon's office directly. 29 year old 136.6 lbs 5' 4 Date of Surgery: 03/02 Surgeon: Yoselyn Type of Surgery: DENTAL RESTORATIONS HISTORY OF PRESENT ILLNESS: telephone history for the upcoming surgery at [facility], [address] [place], enter through the west entrance doors. STOP-BANG Row Name 02/19/24 1154 History of sleep apnea? Yes NO PSG found, NO CPAP (Mild ED per Mom) EXERCISE CAPACITY: <4 mets and Uses a wheel chair ALLERGIES: Zarontin [ethosuximide] PREVIOUS ANESTHETIC EXPERIENCES AND INTUBATION HISTORY: No previous anesthetic complication FAMILY HISTORY OF ANESTHETIC COMPLICATIONS: None per Mom PAST MEDICAL HISTORY: Past Medical History: Diagnosis Date Alopecia Autism (HCC) Biliary dyskinesia Bipolar disorder (HCC) Constipation Dysphagia Furunculosis BERT (generalized anxiety disorder) GERD (gastroesophageal reflux disease) Gato's disease Hypothyroidism Intellectual disability OCD (obsessive compulsive disorder) DE (obstructive sleep apnea) No CPAP Pervasive developmental disorder (HCC) Seizure (HCC) Strabismus Thyroid nodule PROBLEM LIST: Patient Active Problem List: Caries [K02.9] Past Medical History and Review of Systems Pulmonary (+) sleep apnea Comment: Denies SOB, wheezes, fever, chills, increased sputum, or general malaise. 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 ROS Neuro/Psych (+) bipolar disorder, seizures, intellectual disability Cardiovascular - negative ROS GI/Hepatic/Renal (+) GERD Heme/Other - negative ROS PAST SURGICAL HISTORY: Past Surgical History: Procedure Laterality Date EUA, ORAL 09/15/2014 Procedure: EUA, ORAL; Surgeon: Bradley Goodwin DDS; Location: PERIOPERATIVE SERVICES; Service: Oral EXTRACTION, TOOTH Bilateral 09/15/2014 Procedure: Wilson teeth; Surgeon: Bradley Goodwin DDS; Location: PERIOPERATIVE SERVICES; Service: Oral SOCIAL HISTORY: Social History Socioeconomic History Marital status: Single Tobacco Use Smoking status: Never Smokeless tobacco: Never Substance and Sexual Activity Alcohol use: Never Drug use: Never PAIN ASSESSMENT: Severity: 0 Location: N/A LABORATORY DATA: Type & Screen (Last result in the past 30 days) No lab values to display. CBC (last 3 years, up to 8 values) No lab values to display. BMP (last 3 years, up to 8 values) No lab values to display. Basic Metabolic Panel No lab values to display. PT/PTT/INR (last 3 years, up to 8 values) No lab values to display. Arterial Blood Gases None No result for BNP LFT's (last 3 years, up to 8 values) No lab values to display. Urinalysis No lab values to display. Lipids (last 3 years, up to 8 values) No lab values to display. No results found for: TSH No results found for: HBA1C TESTS REVIEWED: CXRay: No Chest x-ray found EKG: Last ECG Date: Not Found ECHO: Echocardiogram date: Not Found No results found for this basename: LVEF Stress test date: Last StressTest: none found going back to 09/10/2014 CURRENT MEDICATION LIST: Current Outpatient Medications Medication Sig Dispense Refill levothyroxine (SYNTHROID) 200 MCG tablet Take 200 mcg by mouth daily. Acetaminophen (Tylenol) 325 MG CAPS Take by mouth. divalproex (DEPAKOTE) 125 MG EC tablet Take 125 mg by mouth 3 times daily. melatonin 3 MG TABS tablet Take 3 mg by mouth at bedtime. norethindrone-ethinyl estradiol (Nortrel 1/35, 21,) 1-35 MG-MCG tablet Take 1 Tablet by mouth daily. paliperidone (INVEGA) 3 MG 24 hour tablet Take 6 mg by mouth daily. polyethylene glycol (MIRALAX) packet Dissolve 17 g in 8 ounces of liquid and drink daily. QUEtiapine Fumarate (SEROQUEL ORAL) Take by mouth. busPIRone (BUSPAR) 30 MG tablet Take 30 mg by mouth daily. famotidine (PEPCID) 40 MG tablet Take 40 mg by mouth daily. GUANFACINE HCL ORAL Take by mouth. lamoTRIgine (LaMICtal) 100 MG tablet Take 100 mg by mouth daily. loratadine (CLARITIN) 10 MG tablet Take 10 mg by mouth daily. chlorhexidine (PERIDEX) 0.12 % oral solution Take 15 mL by mouth 2 times daily. 1 Bottle 0 ibuprofen (MOTRIN) 600 MG tablet Take 1 Tab by mouth every 6 hours as needed for Pain. 30 Tab 1 trihexyphenidyl 2 MG tablet Take 2 mg by mouth 3 times daily. Zinc Gluconate 50 MG TABS Take by mouth. Fluticasone Propionate (FLONASE NASAL) [place] into each nostril. Selenium (SELENIMIN ORAL) Take by mouth. Sennosides (SENNA) 15 MG tablet Take 1 Tab by mouth daily as needed for Constipation. topiramate (TOPIRAGEN) 25 MG tablet Take 75 mg by mouth 2 times daily. Lactobacillus (ACIDOPHILUS) CAPS Take by mouth. CLONIDINE HCL ORAL Take by mouth. docusate sodium (COLACE) 100 MG capsule Take 100 mg by mouth 2 times daily. No current facility-administered medications for this visit. CURRENT MEDICATIONS: Aspirin: No NSAIDS: No Other Antiplatelet Medication: No Anticoagulants: No Steroids: No SGLT-2/GLP-1: No PATIENT MEDICATION INSTRUCTIONS: On the morning of your surgery, please take only the following medications, with a small sip of water: NONE. (Note: pt requires medication crushed/in pudding/applesauce or other substance). DAY OF SURGERY NOTES: Please use this CHECKLIST to prepare for your surgery/procedure: ? Assume that any lab or testing done during your Pre-admission testing appointment is within normal limits unless otherwise contacted. ? Expect a call from [employer] one business day prior to surgery for surgery arrival time and location. ? Please plan to restart your medications the day after surgery unless otherwise explicitly instructed. ? Please contact your surgeon s/proceduralist s office for any surgical or recovery types of questions. ? CANCELLING YOUR SURGERY/PROCEDURE: If you get a cold, are not feeling well, or become , please call your surgeon s office as soon as possible. ? Refer to your Preparing for Your Surgery/Procedure booklet or [email or web address] if you have questions. Contact the Pre-Admission Testing department at [phone] or your surgeon's office with any questions that are not answered. ? Eating and drinking before surgery: Adult Patients: No food or drink for 8 hours prior to surgery check in time. Plain water is allowed up to 2 hours prior to your surgery arrival time. A sip of water with approved morning medications is acceptable. Post-op Nausea and Vomiting: A risk of anesthesia is nausea and/or vomiting (PONV). Certain patients are at higher risk than others. Talk to your anesthesiologist about the plan to minimize this risk. In general, it is best to start with only ice chips or small sips of water, then progress to clear, non-alcoholic fluids. You do not have to eat if you do not feel like it; fluids are the most important in the first 24 hours after surgery. If you start to eat, try bananas, applesauce, plain toast, saltine crackers, or broth; avoid fried or fatty foods. Make sure to eat something about 15 minutes before taking any pain medications. Seek medical attention for any prolonged PONV and signs of dehydration. Patients whose assigned sex at was female, and are starting puberty or beyond, will be urine tested for per hospital policy. ON THE DAY OF SURGERY: ? DO bring your ID, insurance card, medication list, and a small amount of montero for filling prescriptions and any medical co-pays. ? Do NOT wear any jewelry, (including rings, earrings, or mouth, tongue, or body piercings). Metal jewelry could cause constriction, amputation, or lane. Loose or bulky things in your mouth can be unsafe and result in breathing problems. ? DO bring glasses if you wear contacts and other assistance items such as oxygen, inhaler, cane, walker, etc. ? Do NOT bring valuables, credit cards, or large amounts of montero. ? Do NOT wear lotion or strong-smelling fragrance (perfume, cologne, cream or lotion). ? ARRANGE FOR A RIDE: If you are scheduled to go home the same day of surgery, a responsible adult MUST drive or accompany you home in a car, cab, shared ride service, or [employer]-van. You will not be allowed to drive yourself home or travel home alone. Your surgery may be cancelled if you do not have a ride. A responsible adult must stay with you after surgery. Please call [employer] if you need transportation assistance or have concerns about going home [phone]. ? PLEASE BE ON TIME. A late arrival may result in the cancellation/ delay of your surgery. Thank you for choosing [facility]; it is our pleasure to care for you Kelly Cabello RN Time Spent Performing this Telephone History: 48 with follow-up [place]: documented in this encounter [facility] 10-21-2023 History and physical note Images from the original note were not included. Surgical History and Physical [facility] [address] [address] Name: Chantel Ascencio : 1995 29 year old CSN: [id number] Attending: Elmer Topete DDS Date of Admission: 03/02/2024 8:38 AM Room/Bed: [facility] OR/NONE Planned Procedure: Procedure(s): DENTAL RESTORATIONS HPI: Chantel Ascencio is a 29 year old female with Pre-Op Diagnosis Codes: * Caries [K02.9]. Past Medical History: Past Medical History: Diagnosis Date Alopecia Autism (HCC) Biliary dyskinesia Bipolar disorder (HCC) Constipation Dysphagia Furunculosis BERT (generalized anxiety disorder) GERD (gastroesophageal reflux disease) Gato's disease Hypothyroidism Intellectual disability OCD (obsessive compulsive disorder) ED (obstructive sleep apnea) No CPAP Pervasive developmental disorder (HCC) Seizure (HCC) Strabismus Thyroid nodule Past Surgical History: Review of patient's past surgical history indicates: EXTRACTION, TOOTH (09/15/2014) Procedure: Wilson teeth; Surgeon: Bradley Goodwin DDS; Location: PERIOPERATIVE SERVICES; Service: Oral EUA, ORAL (09/15/2014) Procedure: EUA, ORAL; Surgeon: Bradley Goodwin DDS; Location: PERIOPERATIVE SERVICES; Service: Oral Medications: Current Facility-Administered Medications Medication Dose Route Frequency Last Rate Last Admin naloxone (NARCAN) 0.4 MG/ML injection 0.4 mg Intravenous Push PRN ondansetron (ZOFRAN) 4 MG/2ML injection 4 mg Intravenous Push PACU once PRN sodium chloride 0.9 % injection 3 mL Intravenous Push PRN naloxone (NARCAN) 0.4 MG/ML injection 0.4 mg Intravenous Push PRN Family History: No family history on file. Social History: Social History Socioeconomic History Marital status: Single Tobacco Use Smoking status: Never Smokeless tobacco: Never Substance and Sexual Activity Alcohol use: Never Drug use: Never Allergies: Linzess [linaclotide] and Zarontin [ethosuximide] Vitals Signs: BP 101/49 (BP Location: right arm) Pulse 85 Resp 16 Ht 5' 4 (1.626 m) Wt 136 lb 9.6 oz (62 kg) LMP (LMP Unknown) Comment: hcg negative SpO2 100% BMI 23.45 kg/m ROS: Denies fever, chills, chest pain, SOB, palpitations. Objective Physical Exam: Gen: Eyes: Normal Pulm: Chest clear to auscultation bilaterally CV: No murmurs, gallops, or rubs Abd: No masses Neuro: No motor deficits Skin: No gross or obvious abnormalities on visible skin Psych: alert and oriented to person, place and time Imaging: Laboratory Values and Test Results: No results found for this or any previous visit (from the past 97434 hours). BMP (last 3 years, up to 8 values) No lab values to display. No results found for this or any previous visit (from the past 8760 hours). ASSESSMENT & PLAN Assessment: Chantel Ascencio is a 29 year old female with Pre-Op Diagnosis Codes: * Caries [K02.9]. Plan: I have personally reviewed the patient's medical history and performed the physical examination below immediately before the procedure. Medications, allergies, and pertinent laboratory and diagnostic tests were also reviewed at this time. Procedure is still indicated. Yes Seen an evaluated by Melquiades Stewart DDS. Discussed with attending Emler Topete DDS. Melquiades Stewart DDS 03/02/24 9:38 AM Cosigned by Elmer Topete DDS at 03/02/2024 11:48 AM EST Surgical Attestation: I have reviewed the patient's History and Physical Examination. I have personally seen and evaluated the patient, repeating cabrera portions. There is no significant interval change. Surgery is still indicated. Yes Consent reviewed and signed by patient/family: Yes Operative site verified and marked: site verified but not marked as not anatomically possible Melquiades Stewart DDS 03/02/2024 9:38 AM Cosigned by Elmer Topete DDS at 03/02/2024 11:48 AM EST documented in this encounter [facility] 04-30-2022 Miscellaneous Notes Bina from [facility] calling in. She wanted to know where the pt was at on the OR wait list. E-mail sent to Connie E-mail sent 04/30/22 documented in this encounter [facility] 04-30-2022 Telephone encounter Note Bina from [facility] calling in. She wanted to know where the pt was at on the OR wait list. E-mail sent to Connie E-mail sent 04/30/22 [facility] 03-13-2022 History of Present illness Narrative ----- Sunday, March 13, 2022 at 11:58:40 AM ----- ----- Provider: [id number] Coreas DMD -- Clinic: [place] ----- OR [...] available. Legal Guardian: Toshia Ascencio Phone #: [phone] NOTE: Patient had a hard time leaning her head back, but allowed me to look. Patient not indicating she is in any pain. #8 is very discolored - most likely will need RCT treatment. Gingiva very red and irritated. Caregiver did not know who patient's guardian was or contact information, looked it up in [facility]. Next Visit: OR documented in this encounter [facility] Evaluation note Diagnosis Caries- Primary Unspecified dental caries [facility] Diagnosis Caries- Primary Unspecified dental caries Caries- Primary Unspecified dental caries [facility] Diagnosis Seizure disorder (CMS/HCC)- Primary Unspecified epilepsy without mention of intractable epilepsy Mental deficiency (CMS/HCC) Unspecified mental retardation Autism (CMS/HCC) Autistic disorder, current or active state Pseudobulbar affect Gait instability Abnormality of gait [facility] Diagnosis Caries- Primary Unspecified dental caries NO SHOW- Primary Caries Unspecified dental caries [facility] Diagnosis Caries- Primary Unspecified dental caries Pre-op evaluation- Primary Preoperative examination, unspecified Caries Unspecified dental caries [facility] Diagnosis Caries- Primary Unspecified dental caries [facility] Diagnosis Venous insufficiency (chronic) (peripheral)- Primary Unspecified venous (peripheral) insufficiency Onychomycosis Dermatophytosis of nail Pain in right toe(s) Pain in left toe(s) Onychocryptosis Ingrowing nail [facility]* Auth/Cert (Routine) Specialty Diagnoses / Procedures Referred By Contac t Referred To Contact Ambulatory Surgery Diagnoses Caries Caries [K02.9] Procedures INTERDENTAL FIXATION. UNLISTED PROCEDURE, DENTOALVEOLAR STRUCTURES DENTAL RESTORATIONS Elmer Topete, DDS [address] [place] [address] Phone: tel: fax: [employer] [place] [address] Phone: tel: Referral ID Status Reason Start Date Expiration Date Visits Re quested Visits Authorized [id number] 3 [facility] Purpose Family History No Family History Records FoundNo Family History Records FoundNo Family History Records FoundNo Family History Records Found Advance Directives No Advanced Directives Records FoundNo Advanced Directives Records FoundNo Advanced Directives Records FoundNo Advanced Directives Records Found Reason for Referral Specialty Diagnoses / Procedures Referred By Contac t Referred To Contact Anesthesiology Diagnoses Caries Elmer Topete, DDS [address] [place] [address] [facility] PRE ADMISSION TESTING [address] [place] [address] Referral ID Status Reason Start Date Expiration Date V isits Requested Visits Authorized [id number] Authorized 12/27/2023 12/26/2024 1 1 Scheduling Instructions Your surgical team will reach out to you to schedule a pre-admission testing appointment. Question Answer Reason for consult? Recommended PAT Risk Score Additional Source Comments INFORMATION SOURCE (unrecogn ized section and content) DATE CREATED AUTHOR 10/16/2017 [facility] DATE CREATED AUTHOR AUTHOR'S ORGANIZ ATION 09/02/2022 [facility] DATE CREATED AUTHOR AUTHOR'S ORGANIZ ATION 03/10/2024 [facility] [employer] [facility] DATE CREATED AUTHOR AUTHOR'S ORGANIZ ATION 03/12/2024 [facility] EPIC Reason for Visit (unrecogniz ed section and content) Reason Onset Date Comments Dental 04/30/2022 Reason Comments Seizures Reason Onset Date Comments PAT 02/21/2024 Anesthesia conse nt obtained Reason Onset Date Comments PAT 02/24/2024 Anesthesia conse nt obtained Reason Onset Date Comments Pre-surgical Evaluation 02/26/2024 DD adult dental restorations 03/02 under [place] at [place]. PAT completed - anesthesia consent. ZOHRA RN spoke to Mary (nurse), confirmed [facility], [place] address, and 0900 arrival time Reason Comments Toenail Problem RT grt nail fungal Care Teams (unrecognized sec tion and content) Relay Tester Relationship Specialty Start Date End Date Unallocated, Noms Provider, [address] [place], [place] [id number] PCP - General Family Medicine 07/09/23 Kris Mcguire MD [address] [place] [address] Referring Physician Neurology 07/09/23 Relay Tester Relationship Specialty Start Date End Date Unallocated, May Schneider MD [address] [place] [address] [place] [address] PCP - General Family Medicine 07/09/23 Kris Mcguire MD [address] [place] [id number] Referring Physician Neurology 07/09/23 Relay Tester Relationship Specialty Start Date End Date Nathan Tilley MD [address] [place] [address] PCP - General Family Medicine 03/10/24 Kris Mcguire MD [address] [id number] Referring Physician Neurology 07/09/23 Relay Tester Relationship Specialty Start Date End Date Nathan Tilley MD [address] [place] [address] PCP - General Family Medicine 03/10/24 Kris Mcguire MD [address] [place] [address] Referring Physician Neurology 07/09/23 PRN Active and Recently Administ ered Medications (unrecognized section and content) Medication Order 02/29/2024 03/01/2024 03/02/2024 bacitracin 500 UNIT/GM ointment (CANCELED) PRN, Starting on Sat03/02/24 at 1037, Until Sat03/02/24 at 1156, Intra-op 1037 (Given - Provid er: Melquiades Stewart, DDS - Comment: Applied to lips at end of procedure) naloxone (NARCAN) 0.4 MG/ML injection 0.4 mg, Intravenous Push, PRN, Starting on Sat03/02/24 at 0937, Until Discontinued, Respiratory Rate Less Than 8 for adults and less than 12 for Peds or for suspected overdose, PACU Now ondansetron (ZOFRAN) 4 MG/2ML injection 4 mg, Intravenous Push, PACU ONCE PRN, Starting on Sat03/02/24 at 0938, Until Sat03/02/24 at 1537, Nausea, Vomiting, PACU Now sodium chloride 0.9 % injection 3 mL, Intravenous Push, PRN, Starting on Sat03/02/24 at 0937, Until Discontinued, For medication administration and blood draw, PACU Now FOR RECORDS PERTAINING TO PATIENTS WHO ARE [...] BE BASED ON THE PRIMARY CLINICAL RECORDS. [employer] provides no warranty or guarantee of the accuracy or completeness of information in this document.
[2024-03-25 08:16] LABS: Thyroid Stimulating Hormone 5.723 uIU/mL (0.358-3.740)
== END 2024-03-25 07:05 | disposition home or self-care (01) ==
LOC: LAB 07:05
PROVIDERS: PCP Family Medicine; Visit Provider Family Medicine
DX: E04.2 Nontoxic multinodular goiter (principal); Z79.899 Other long term (current) drug therapy
CPT/HCPCS: 36415; 84436; 84443

== ENCOUNTER 2024-04-01 07:23 | Outpatient (OUT) | payer MEDICARE, MEDICAID, SELFPAY ==
--- OUTSIDE RECORDS SUMMARY | 2024-04-01 07:26 | XMS_ITS | CCD ---
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 Suspended Fluticasone Prop ionate (FLONASE NASAL) [place] into each nostril. Active Fluticasone Prop ionate (FLONASE NASAL) [place] into each nostril. 0 Active guanFACINE 2 [...] by mouth daily. Active polyethylene glycol 3350 06181 mg powder for oral solution (12 sources) [...] ORAL) Take by mouth. 0 Active sennosides, mcc 15 mg oral tablet (12 sources) take [...] 07-21-2022 Episodic Other aftercare (5 sources) Other penitentiary (current) drug therapy; Translations: [OTH [facility] CURRENT DRUG THERAPY] Onset: 04-03-2022 Episodic Other [...] Range Facility Anesthesia Postprocedure Estelle meadows 03-02-2024 [employer] Authentication Interface Message Text Anesthesia Postoperative Assessment: [...] EVENTS: No notable events documented. 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 Scheduled for surgery 03/02/2024. ) Questions answered / anesthesia plan accepted ( Anesthesia consent obtained and scanned into [employer]. Scheduled for surgery 03/02/2024. ) Past medical history, surgical history, allergies, and medications reviewed. Pertinent laboratory tests, EKG, imaging, and consults reviewed and I have personally seen and evaluated the patient, repeating cabrera portions of the history and physical examination. Attestation: Anesthesia options were discussed with the patient and/or legal surgical sales representative. The risks, benefits and alternatives were reviewed. Questions regarding anesthesia were answered. Patient and/or legal surgical sales representative knows such anesthetics and procedures may be performed by Resident physicians, Certified Anesthesiologist Assistants, or Certified Nurse Anesthetists under the supervision of a physician. The patient /or the patient's legal surgical sales representative agree with the plan for anesthesia. Comment: Anesthesia consent obtained and scanned into [employer]. Scheduled for surgery 03/02/2024. MHPATFORM Normal [facility] Anesthesia Transfer Of Careo n 03-02-2024 [employer] Authentication Interface Message Text Patient taken to [...] surgical history indicates: EXTRACTION, TOOTH (09/15/2014) Procedure: [place] teeth; Surgeon: Bradley Goodwin DDS; Location: PERIOPERATIVE SERVICES; Service: Oral EUA, ORAL (09/15/2014) Procedure: EUA, ORAL; Surgeon: Bradley Goodwin DDS; Location: PERIOPERATIVE SERVICES; Service: Oral Allergies: Linzess [linaclotide] and Zarontin [ethosuximide] Basic Operating Room Facts: Surgeon(s): Elmer Topete DDS Anesthesiologist: Milton Luna MD STUDENT TRUCK DRIVER: Adalgisa Smith APRN-DARSHAN Medical File Clerk: Dayanna Preciado MD DENTAL RESTORATIONS (Right: Mouth) [...] of the report was received. Adalgisa Smith, CASEWORKER-STUDENT TRUCK DRIVER Normal [facility] Blood Attestationon 03-02-20 [employer] Interface Message Text Blood Attestation: ATTESTATION OF INFORMED CONSENT FOR BLOOD: The transfusion of blood and/or blood components were discussed with the patient and/or legal surgical sales representative. The risks, benefits and alternatives were reviewed. Questions regarding blood transfusions were answered. The patient /or the patient's legal surgical sales representative agree with the plan for transfusion of blood and/or blood components. Normal [facility] Brief Operative Noteon 03-02 [employer] Interface Message Text Brief Operative Note P[facility] OR 3 Chantel Ascencio 29 year old female Surgical Contact Serial Number: [id number] Preoperative Diagnosis: Pre-op Diagnosis * Caries [K02.9] Postoperative Diagnosis: * Caries [K02.9] Procedures: Full mouth x-ray [95050] Prophylaxis [06688] Restorations [54511] Floride application [10004] Surgeon(s): Surgeon(s): Elmer Topete DDS Staff: Diesel Locomotive Firer/Fireman Nurse: Trudi Padilla Baby Registry Sales Consultant: Paula Contreras DDS; Melquiades Christie DDS Anesthesia: General Anesthesiologist: Milton Luna MD STUDENT TRUCK DRIVER: Adalgisa Smith APRN-DARSHAN Medical File Clerk: Dayanna Preciado MD Specimen(s): * No specimens [...] Contreras DDS 03/02/2024 11:48 AM Normal [facility] Progress Noteson 03-02-2024 [employer] Interface Message Text ----- Saturday, March 02, 2024 at 11:38:59 AM ----- ----- Provider: [id number] Rebolledo DDS -- Clinic: [facility] ----- ANGELICA notes, pt is ready for tx [place]. X-Rays look good, few cavities found and confirmed clinically. restos completed. OP Note by Paula Contreras DDS at 03/01/2024 6:14 PM Author: Paula Contreras DDS Service: Dentistry Author Type: Resident Filed: 03/02/2024 11:56 AM Date of Service: 03/01/2024 6:14 PM Note Type: OP Note Status: Cosign Needed Valet Parker: Paula Contreras DDS (Resident) Cosign Required: Yes Expand All Collapse All Surgical Case Number Data Unavailable Operating Room Data Unavailable Preoperative Diagnosis(es): Caries [k02.9] Surgeon: Dr. 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 Amalgam restorations [...] 2024 at 11:57:17 AM ----- ----- Provider: [id number] - Elmer Rebolledo DDS -- Clinic: [facility] [...] Positive Positive [facility] OP Noteon 03-01-2024 [employer] Interface Message Text Surgical Case Number Data Unavailable Operating Room Data Unavailable Preoperative Diagnosis(es): Caries [k02.9] Surgeon: Dr. 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 Amalgam restorations [...] Contreras DDS 03/01/2024 6:15 PM Normal [facility] Telephone Encounteron 2023 [employer] Interface Message Text Anesthesia consent obtained and scanned into [employer]. Scheduled for surgery 03/02/2024. Normal [facility] Telephone Encounteron 2023 [employer] Interface Message Text Anesthesia consent obtained and scanned into [employer]. Scheduled for surgery 03/02/2024. Normal [facility] PAT Call Historyon [employer] Interface Message Text Telephone History Chantel Ascencio, [id number] 02/19/2024 Patient was identified by name and date of via Ivon, caregiver. Needs: Physical, Neck Circumference, BHCG, and ED on DOS. Note: OSH records/labs scanned to media supervisor. If the patient becomes ill prior to procedure or surgery, they are to call their provider or surgeon's office directly. 29 year old 136.6 lbs 5' 4 Date of Surgery: 03/02 Surgeon: Yoselyn Type of Surgery: DENTAL RESTORATIONS HISTORY OF PRESENT ILLNESS: [facility], [address] [place], enter through the [facility]. STOP-BANG Row Name 02/19/24 2694 History of sleep apnea? 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 Fluticasone Propionate (FLONASE NASAL) [place] into each nostril. Selenium (SELENIMIN ORAL) Take by mouth. Sennosides (SENNA) 15 MG tablet Take 1 Tab by mouth daily as needed for Constipation. topiramate (TOPIRAGEN) 25 MG tablet Take 75 mg by mouth 2 times daily (more content not included)... Normal [facility] Progress Noteson 02-17-2024 [employer] Interface Message Text Patient PAT has be rescheduled for 02/19/2024--for OR visit 03/02/2024----- Saturday, February 17, 2024 at 10:10:00 AM ----- ----- Provider: LESLIE [facility] Acute [facility] Nurse -- Clinic: [place] ----- Normal [facility] Progress Noteson 02-05-2024 [employer] Interface Message Text Patient was no show for PAT today at [facility] surgery is scheduled 03/02-Contact Concetta @ [email or web address] --advised if PAT needs to reschedule or patient will be removed from OR----- Monday, February 05, 2024 at 4:24:04 PM ----- ----- Provider: LESLIE [facility] Nurse -- Clinic: [place] ----- Normal [facility] Progress Noteson 01-08-2024 [employer] Interface Message Text Parent/guardian/pat ient was contacted for PAT AND OR Sedation scheduled -- confirmed information with patient, also informed mom importance of going to PAT appointment -- if missed, IV Sedation will be cancelled, and you will be placed back on wait list 03/02/24----- Monday, January 08, 2024 at 2:14:12 PM ----- ----- Provider: LESLIE [facility] Nurse -- Clinic: [place] ----- Normal [facility] Progress Noteson 12-30-2023 [employer] Interface Message Text Attempted to contact patient/ parent / guardian at telephone number listed -- no answer, left voicemail message requesting a return call.----- Saturday, December 30, 2023 at 2:26:35 PM ----- ----- Provider: LESLIE [facility] Nurse -- Clinic: [place] ----- Normal [facility] FREE T4on 08-29-2022 Free T4 [Mass/Vol] 1.76 ng/dL Critically high 0.76-1.46 [facility] Comment on above: Performed By: #### F T4 #### [facility] [address] [place] [address] Dr. Volodymyr Paez TSHon 08-29-2022 TSH Qn m[IU]/L Critically low 0.358-3.740 [facility] Comment on above: Performed By: #### T SH #### [facility] [address] [place] [address] Dr. Volodymyr Paez CULTURE URINEon 08-24-2022 CULTURE [...] S F Tetracycline >=16 R F Normal [facility] Comment on above: Performed By: #### T SH, CMP #### [facility] [address] [place] [address] Dr. Volodymyr Paez UA (CLEAN/CATCH) CHIEF LOAD DISPATCHER/MICRO I F IND.on 08-21-2022 Bilirubin Ql (U) Negative Normal NEGATIVE [facility] Comment on above: Performed By: #### U ACSIND, UMICRO #### [facility] [address] [place] [address] Dr. Volodymyr Paez Clarity (U) CLEAR Normal CLEAR [facility] Comment on above: Performed By: #### U ACSIND, UMICRO #### [facility] [address] [place] [address] Dr. Volodymyr Paez Color (U) LT. YELLOW Normal YELLOW [facility] Comment on above: Performed By: #### U ACSIND, ICRO #### [facility] [address] [place] [address] Dr. Volodymyr Paez Glucose Ql (U) Negative Normal NEGATIVE [facility] Comment on above: Performed By: #### U ACSIND, ICRO #### [facility] [address] [place] [address] Dr. Volodymyr Paez Hemoglobin Ql (U) Negative Normal NEGATIVE [facility] Comment on above: Performed By: #### U ACSIND, ICRO #### [facility] [address] [place] [address] Dr. Volodymyr Paez Ketones Ql (U) Negative Normal NEGATIVE [facility] Comment on above: Performed By: #### U ACSIND, UMICRO #### [facility] [address] [place] [address] Dr. Volodymyr Paez LEUKOCYTES SMALL Abnormal NEGATIVE [facility] Comment on above: Performed By: #### U ACSIND, UMICRO #### [facility] [address] [place] [address] Dr. Volodymyr Paez Nitrite Ql (U) Negative Normal NEGATIVE [facility] Comment on above: Performed By: #### U ACSIND, UMICRO #### [facility] [address] [address] [address] Volodymyr Paez pH (U) 7.0 [pH] Normal 5-9 [facility] Comment on above: Performed By: #### U ACSIND, UMICRO #### [facility] [address] [address] [address] Volodymyr Paez SPEC GRAVITY 1.020 Normal 1.005-<=1.025 [facility] Comment on above: Performed By: #### U ACSIND, UMICRO #### [facility] [address] [address] [address] oVlodymyr Paez UA PROTEIN Negative Normal NEGATIVE/ TRACE [facility] Comment on above: Performed By: #### U ACSIND, UMICRO #### [facility] [address] [place] [address] Dr. Volodymyr Paez UR MICRO IND INDICATED Normal [facility] Comment on above: Performed By: #### U ACSIND, UMICRO #### [facility] [address] [address] [address] Volodymyr Paez Urobilinogen Qn (U) 0.2 {Leta'U}/dL Normal 0.2 - 1. 0 [facility] Comment on above: Performed By: #### U ACSIND, UMICRO #### [facility] [address] [place] [address] Dr. Volodymyr Paez URINE MICROSCOPIC ONLYon BACTERIA SMALL Abnormal NONE SEEN [facility] Comment on above: Performed By: #### U ACSIND, UMICRO #### [facility] [address] [address] [address] Volodymyr Paez Bacteria identified Cx Nom (U) INDICATED Normal [facility] Comment on above: Performed By: #### U ACSIND, UMICRO #### [facility] [address] [place] [address] Dr. Volodymyr Paez CAST NONE SEEN Normal NONE SEEN [facility] Comment on above: Performed By: #### U ACSIND, UMICRO #### [facility] [address] [address] [address] Volodymyr Paez Crystals LM Nom (Urine sed) NONE SEEN Normal NONE SEEN [facility] Comment on above: Performed By: #### U ACSSHAHEEN, UMICRO #### [facility] [address] [address] [address] Volodymyr Paez Epithelial cells LM Ql (Urine sed) MODERATE Abnormal NONE SEEN /RARE [facility] Comment on above: Performed By: #### U ACSSHAHEEN, UMICRO #### [facility] [address] [address] [address] Volodymyr Paez MUCOUS TRACE Abnormal NONE SEEN [facility] Comment on above: Performed By: #### U ACSSHAHEEN, UMICRO #### [facility] [address] [place] [address] Dr. Volodymyr Paez RBC 2-5 Abnormal 0-2 [facility] Comment on above: Performed By: #### U ACSSHAHEEN, ICRO #### [facility] [address] [place] [address] Dr. Volodymyr Paez WBC 10-20 Abnormal NONE SEEN [facility] Comment on above: Performed By: #### U ACSSHAHEEN, ICRO #### [facility] [address] [place] [address] Dr. Volodymyr Paez LAMOTRIGINEon 08-13-2022 Lamotrigine, Serum 11.2 ug/mL Normal 2.0-20.0 [facility] Comment on above: Result Comment: Dete ction Limit = 1.0 Performed By: #### T SH, CMP #### [facility] [address] [place] [address] Dr. Volodymyr Paez CBC AUTO DIFFon 08-09-2022 BASO # 0.0 103/ul Normal 0.0-0.1 [facility] Comment on above: Performed By: #### C BC #### [facility] [address] [place] [address] Dr. Volodymyr Paez Basophils/100 WBC (Bld) 0.4 % Normal 0.2-2.0 [facility] Comment on above: Performed By: #### C BC #### [facility] [address] [address] [address] Volodymyr Paez EO # 0.4 103/ul Normal 0.0-0.7 [facility] Comment on above: Performed By: #### C BC #### [facility] [address] [place] [address] Dr. Volodymyr Paez Eosinophils/100 WBC (Bld) 4.3 % Normal 0.9-7.0 [facility] Comment on above: Performed By: #### C BC #### [facility] [address] [place] [address] Dr. Volodymyr Paez Erythrocyte distribution width (RBC) [Ratio] 13.2 % Normal 11.0-15.0 [facility] Comment on above: Performed By: #### C BC #### [facility] [address] [place] [address] Dr. Volodymyr Paez Hematocrit (Bld) [Volume fraction] 40.2 % Normal 36.0-48.0 [facility] Comment on above: Performed By: #### C BC #### [facility] [address] [place] [address] Dr. Volodymyr Paez Hemoglobin (Bld) [Mass/Vol] 13.8 g/dL Normal 12.0-16.0 [facility] Comment on above: Performed By: #### C BC #### [facility] [address] [place] [address] Dr. Volodymyr Paez IG # 0.02 10e3/ul Normal 0.00-0.03 [facility] Comment on above: Performed By: #### C BC #### [facility] [address] [place] [address] Dr. Volodymyr Paez IG % 0.2 % Normal 0.0-0.5 [facility] Comment on above: Performed By: #### C BC #### [facility] [address] [place] [address] Dr. Volodymyr Paez LYMPH # 4.3 103/ul Critically high 1.2-3.8 [facility] Comment on above: Performed By: #### C BC #### [facility] [address] [place] [address] Dr. Volodymyr Paez Lymphocytes/100 WBC (Bld) 51.8 % Normal 20.5-60.0 [facility] Comment on above: Performed By: #### C BC #### [facility] [address] [place] [address] Dr. Volodymyr Paez MANUAL DIFF REQ NO Normal [facility] Comment on above: Performed By: #### C BC #### [facility] [address] [place] [address] Dr. Volodymyr Paez MCH (RBC) [Entitic mass] 31.0 pg Normal 26.7-34.0 [facility] Comment on above: Performed By: #### C BC #### [facility] [address] [place] [address] Dr. Volodymyr Paez MCHC (RBC) [Mass/Vol] 34.3 g/dL Normal 29.9-35.2 [facility] Comment on above: Performed By: #### C BC #### [facility] [address] [place] [address] Dr. Volodymyr Paez MCV (RBC) [Entitic vol] 90.3 fL Normal 81.0-99.0 [facility] Comment on above: Performed By: #### C BC #### [facility] [address] [place] [address] Dr. Volodymyr Paez MONO # 0.9 103/ul Critically high 0.3-0.8 [facility] Comment on above: Performed By: #### C BC #### [facility] [address] [place] [address] Dr. Volodymyr Paez Monocytes/100 WBC (Bld) 10.4 % Normal 1.7-12.0 [facility] Comment on above: Performed By: #### C BC #### [facility] [address] [place] [address] Dr. Volodymyr Paez NEUT # 2.7 103/ul Normal 1.4-6.5 [facility] Comment on above: Performed By: #### C BC #### [facility] [address] [place] [address] Dr. Volodymyr Paez Neutrophils/100 WBC (Bld) 32.9 % Critically low 43.0-75.0 [facility] Comment on above: Performed By: #### C BC #### [facility] [address] [place] [address] Dr. Volodymyr Paez Platelet mean volume (Bld) [Entitic vol] 10.3 fL Normal 9.5-13.5 [facility] Comment on above: Performed By: #### C BC #### [facility] [address] [place] [address] Dr. Volodymyr Paez PLT 231 103/ul Normal 150-450 [facility] Comment on above: Performed By: #### C BC #### [facility] [address] [place] [address] Dr. Volodymyr Paez RBC 4.45 106/ul Normal 4.20-5.40 [facility] Comment on above: Performed By: #### C BC #### [facility] [address] [place] [address] Dr. Volodymyr Paez WBC 8.2 103/ul Normal 4.0-11.0 [facility] Comment on above: Performed By: #### C BC #### [facility] [address] [place] [address] Dr. Volodymyr Paez DEPAKENE/ VALPROIC ACIDon DEPAKENE 80.3 ug/ml Normal 50.0-100.0 [facility] Comment on above: Performed By: #### V ALP #### [facility] [address] [place] [address] Dr. Volodymyr Paez US THYROIDon 07-10-2022 US [...] 6 mm. No follow-up required TI-RADS: The [employer] TI-RADS committee's white paper recommendations for thyroid lesions classified as TR4 (moderately suspicious) are listed below: > 1.0 cm. Follow-up ultrasound in 1, 2, 3, and 5 years. > 1.5 cm. FNA. J. Am Chidi Radiol 2017;14:587-595. Electronically authenticated by: MATILDE WATERMAN Date: 2022-07-10 13:01 Normal [facility] LAMOTRIGINEon 06-29-2022 Lamotrigine, Serum 14.2 ug/mL Normal 2.0-20.0 [facility] Comment on above: Result Comment: Dete ction Limit = 1.0 Performed By: #### T SH, CMP #### [facility] [address] [place] [address] Dr. Volodymyr Paez CBC AUTO DIFFon 06-27-2022 BASO # 0.1 103/ul Normal 0.0-0.1 [facility] Comment on above: Performed By: #### T SH, CMP #### [facility] [address] [place] [address] Dr. Volodymyr Paez Basophils/100 WBC (Bld) 0.7 % Normal 0.2-2.0 [facility] Comment on above: Performed By: #### T SH, CMP #### [facility] [address] [place] [address] Dr. Volodymyr Paez EO # 0.4 103/ul Normal 0.0-0.7 [facility] Comment on above: Performed By: #### T SH, CMP #### [facility] [address] [place] [address] Dr. Volodymyr Paez Eosinophils/100 WBC (Bld) 5.1 % Normal 0.9-7.0 [facility] Comment on above: Performed By: #### T SH, CMP #### [facility] [address] [place] [address] Dr. Volodymyr Paez Erythrocyte distribution width (RBC) [Ratio] 13.1 % Normal 11.0-15.0 [facility] Comment on above: Performed By: #### T SH, CMP #### [facility] [address] [place] [address] Dr. Volodymyr Paez Hematocrit (Bld) [Volume fraction] 39.7 % Normal 36.0-48.0 [facility] Comment on above: Performed By: #### T SH, CMP #### [facility] [address] [place] [address] Dr. Volodymyr Paez Hemoglobin (Bld) [Mass/Vol] 13.3 g/dL Normal 12.0-16.0 [facility] Comment on above: Performed By: #### T SH, CMP #### [facility] [address] [place] [address] Dr. Volodymyr Paez IG # 0.02 10e3/ul Normal 0.00-0.03 [facility] Comment on above: Performed By: #### T SH, CMP #### [facility] [facility] [address] [place] [address] Dr. Volodymyr Paez IG % 0.3 % Normal 0.0-0.5 [facility] Comment on above: Performed By: #### T SH, CMP #### [facility] [address] [place] [address] Dr. Volodymyr Paez LYMPH # 3.6 103/ul Normal 1.2-3.8 [facility] Comment on above: Performed By: #### T SH, CMP #### [facility] [address] [place] [address] Dr. Volodymyr Paez Lymphocytes/100 WBC (Bld) 47.4 % Normal 20.5-60.0 [facility] Comment on above: Performed By: #### T SH, CMP #### [facility] [address] [place] [address] Dr. Volodymyr Paez MANUAL DIFF REQ NO Normal [facility] Comment on above: Performed By: #### T SH, CMP #### [facility] [address] [address] [address] Volodymyr Paez MCH (RBC) [Entitic mass] 30.3 pg Normal 26.7-34.0 [facility] Comment on above: Performed By: #### T SH, CMP #### [facility] [address] [place] [address] Dr. Volodymyr Paez MCHC (RBC) [Mass/Vol] 33.5 g/dL Normal 29.9-35.2 [facility] Comment on above: Performed By: #### T SH, CMP #### [facility] [address] [place] [address] Dr. Volodymyr Paez MCV (RBC) [Entitic vol] 90.4 fL Normal 81.0-99.0 [facility] Comment on above: Performed By: #### T SH, CMP #### [facility] [address] [place] [address] Dr. Volodymyr Paez MONO # 0.9 103/ul Critically high 0.3-0.8 [facility] Comment on above: Performed By: #### T SH, CMP #### [facility] [address] [place] [address] Dr. Volodymyr Paez Monocytes/100 WBC (Bld) 11.3 % Normal 1.7-12.0 [facility] Comment on above: Performed By: #### T SH, CMP #### [facility] [address] [place] [address] Dr. Volodymyr Paez NEUT # 2.7 103/ul Normal 1.4-6.5 [facility] Comment on above: Performed By: #### T SH, CMP #### [facility] [address] [place] [address] Dr. Volodymyr Paez Neutrophils/100 WBC (Bld) 35.2 % Critically low 43.0-75.0 [facility] Comment on above: Performed By: #### T SH, CMP #### [facility] [address] [place] [address] Dr. Volodymyr Paez Platelet mean volume (Bld) [Entitic vol] 11.4 fL Normal 9.5-13.5 [facility] Comment on above: Performed By: #### T SH, CMP #### [facility] [address] [place] [address] Dr. Volodymyr Paez PLT 96 103/ul Critically low 150-450 [facility] Comment on above: Result Comment: slid e made; no plt clumps seen Performed By: #### T SH, CMP #### [facility] [address] [place] [address] Dr. Volodymyr Paez RBC 4.39 106/ul Normal 4.20-5.40 [facility] Comment on above: Performed By: #### T SH, CMP #### [facility] [address] [place] [address] Dr. Volodymyr Paez WBC 7.6 103/ul Normal 4.0-11.0 [facility] Comment on above: Performed By: #### T SH, CMP #### [facility] [address] [place] [address] Dr. Volodymyr Paez FREE T4on 06-27-2022 Free T4 [Mass/Vol] 1.45 ng/dL Normal 0.76-1.46 [facility] Comment on above: Performed By: #### F T4 #### [facility] [address] [place] [address] Dr. Volodymyr Paez PROF 14(COMP METB)on 023 Albumin [Mass/Vol] 3.2 g/dL Critically low 3.4-5.0 [facility] Comment on above: Performed By: #### T SH, CMP #### [facility] [address] [place] [address] Dr. Volodymyr Paez Albumin/Globulin [Mass ratio] 0.7 {ratio} Normal [facility] Comment on above: Performed By: #### T SH, CMP #### [facility] [address] [place] [address] Dr. Volodymyr Paez ALP [Catalytic activity/Vol] 65 U/L Normal 46-116 [facility] Comment on above: Performed By: #### T SH, CMP #### [facility] [address] [address] [address] Volodymyr Paez ALT [Catalytic activity/Vol] 20 U/L Normal 14-59 [facility] Comment on above: Performed By: #### T SH, CMP #### [facility] [address] [address] [address] Volodymyr Paez Anion gap [Moles/Vol] 11.3 mmol/L Normal [facility] Comment on above: Performed By: #### T SH, CMP #### [facility] [address] [address] [address] Volodymyr Paez AST [Catalytic activity/Vol] 25 U/L Normal 15-37 [facility] Comment on above: Performed By: #### T AKIKO, CMP #### [facility] [address] [place] [address] Dr. Volodymyr Paez Bilirubin [Mass/Vol] 0.3 mg/dL Normal 0.2-1.0 [facility] Comment on above: Performed By: #### T AKIKO, CMP #### [facility] [address] [place] [address] Dr. Volodymyr Paez Calcium [Mass/Vol] 9.5 mg/dL Normal 8.5-10.1 [facility] Comment on above: Performed By: #### T AKIKO, CMP #### [facility] [address] [address] [address] Volodymyr Paez Chloride [Moles/Vol] 100 mmol/L Normal 98-107 [facility] Comment on above: Performed By: #### T AKIKO, CMP #### [facility] [address] [place] [address] Dr. Volodymyr Paez CO2 [Moles/Vol] 30.1 mmol/L Normal 21.0-32.0 [facility] Comment on above: Performed By: #### T AKIKO, CMP #### [facility] [address] [place] [address] Dr. Volodymyr Paez Creatinine [Mass/Vol] 0.92 mg/dL Normal 0.55-1.02 [facility] Comment on above: Performed By: #### T AKIKO, CMP #### [facility] [address] [place] [address] Dr. Volodymyr Paez EGFR-AF TAIWANESE >60 Normal >=60 [facility] Comment on above: Performed By: #### T AKIKO, CMP #### [facility] [address] [place] [address] Dr. Volodymyr Paez EGFR-NON AF TAIWANESE >60 Normal >=60 [facility] Comment on above: Performed By: #### T SH, CMP #### [facility] [address] [address] [address] Volodymyr Paez Globulin (S) [Mass/Vol] 4.4 g/dL Normal [facility] Comment on above: Performed By: #### T AKIKO, CMP #### [facility] [address] [place] [address] Dr. Volodymyr Paez Glucose [Mass/Vol] 76 mg/dL Normal 74-106 [facility] Comment on above: Performed By: #### T AKIKO, CMP #### [facility] [address] [place] [address] Dr. Volodymyr Paez Potassium [Moles/Vol] 4.4 mmol/L Normal 3.5-5.1 [facility] Comment on above: Performed By: #### T AKIKO, CMP #### [facility] [address] [place] [address] Dr. Volodymyr Paez Protein [Mass/Vol] 7.6 g/dL Normal 6.4-8.2 [facility] Comment on above: Performed By: #### T AKIKO, CMP #### [facility] [address] [place] [address] Dr. Volodymyr Paez Sodium [Moles/Vol] 137 mmol/L Normal 136-145 [facility] Comment on above: Performed By: #### T AKIKO, CMP #### [facility] [address] [place] [address] Dr. Volodymyr Paez Urea nitrogen [Mass/Vol] 7.0 mg/dL Normal 7.0-18.0 [facility] Comment on above: Performed By: #### T AKIKO, CMP #### [facility] [address] [place], [place] [address] Dr. Volodymyr Paez Urea nitrogen/Creatinine [Mass ratio] 7.6 mg/mg Normal [facility] Comment on above: Performed By: #### T SH, CMP #### [facility] [address] [address] [address] Volodymyr Paez TSHon 06-27-2022 TSH 0.099 uIU/mL Critically low 0.358-3.740 [facility] Comment on above: Performed By: #### T SH, CMP #### [facility] [address] [address] [address] Volodymyr Paez DEPAKENE/ VALPROIC ACIDon DEPAKENE 72.4 ug/ml Normal 50.0-100.0 [facility] Comment on above: Performed By: #### T , CMP #### [facility] [address] [place] [address] Dr. Volodymyr Paez US THYROIDon 10-25-2021 US [...] screening is still recommended. TR 4: The [employer] TI-RADS committee's white paper recommendations for thyroid lesions classified as TR4 (moderately suspicious) are listed below: > 1.0 cm. Follow-up ultrasound in 1, 2, 3, and 5 years. > 1.5 cm. FNA. J. Am Chidi Radiol 2017;14:587-595. Electronically authenticated by: KRIS MENDOZA Date: 2021-10-25 09:31 Normal [facility] FREE T4on 10-24-2021 Free T4 [Mass/Vol] 1.08 ng/dL Normal 0.76-1.46 [facility] Comment on above: Performed By: #### T SH, CMP #### [facility] [address] [address] [address] Volodymyr Paez TSHon 10-24-2021 TSH 12.719 uIU/mL Critically high 0.358-3.740 [facility] Comment on above: Performed By: #### T SH #### [facility] [address] [address] [address] Volodymyr Paez Vital Signs Date Time Vital Sign Value Performing Clinician Faci lity 03-10-2024 11:19-0500 Body height 165.1 cm Lai Alvarado DPM FACFAS Work Phone: [facility] 03-10-2024 11:19-0500 Body mass index (BMI) [Ratio] 21.3 kg/m2 Lai Alvarado DPM FACFAS Work Phone: [facility] 03-10-2024 11:19-0500 Body weight 58.06 kg Lai Alvarado DPM FACFAS Work Phone: [facility] 03-10-2024 11:19-0500 Diastolic blood pressure 72 mm[Hg] Lai Alvarado DPM FACFAS Work Phone: [facility] 03-10-2024 11:19-0500 Heart rate 88 /min Lai Alvarado DPM FACFAS Work Phone: [facility] 03-10-2024 11:19-0500 Systolic blood pressure 115 mm[Hg] Lai Alvarado DPM FACFAS Work Phone: [facility] 03-02-2024 12:30-0500 Body temperature 98.1 [degF] Elmer Topete DDS Work Phone: [facility] 03-02-2024 12:30-0500 Diastolic blood pressure 73 mm[Hg] Elmer Topete DDS Work Phone: [facility] 03-02-2024 12:30-0500 Heart rate 113 /min Elmer Topete [employer] [facility] 03-02-2024 12:30-0500 Respiratory rate 19 /min Elmer Topete [employer] [facility] 03-02-2024 12:30-0500 SaO2% (BldA) [Mass fraction] 98 % Elmer Topete [employer] [facility] 03-02-2024 12:30-0500 Systolic blood pressure 113 mm[Hg] Elmer Topete [employer] [facility] 03-02-2024 09:11-0500 Body height 162.6 cm Elmer Topete [employer] [facility] 03-02-2024 09:11-0500 Body mass index (BMI) [Ratio] 23.45 kg/m2 Elmer Topete [employer] [facility] 03-02-2024 09:11-0500 Body weight 61.96 kg Elmeredgard Topete [employer] [facility] 02-19-2024 11:00-0400 Body height 162.6 cm Kelly Cabello [facility] 02-19-2024 11:00-0400 Body mass index (BMI) [Ratio] 23.45 kg/m2 Kelly Cabello RN [facility] 02-19-2024 11:00-0400 Body weight 61.96 kg Kelly Cabello RN [facility] 01-21-2024 11:05-0400 Diastolic blood pressure 72 mm[Hg] Radha AMADOR Work Phone: [facility] [email or web address] 01-21-2024 11:05-0400 Heart rate 92 /min Radha Martinez PA Work Phone: [facility] [email or web address] 01-21-2024 11:05-0400 Respiratory rate 16 /min Radha AMADOR Work Phone: [facility] [email or web address] 01-21-2024 11:05-0400 SaO2% (BldA) [Mass fraction] 96 % Radha AMADOR Work Phone: [facility] 01-21-2024 11:05-0400 Systolic blood pressure 118 mm[Hg] Radha AMADOR Work Phone: [facility] Encounters Encounter Date Encounter Type Care Provider Facility Start: 03-10-2024 End: 03-10-2024 Bamboo flowsheet Lai D Dolce DPM FACFAS Work Phone: [facility] Start: 03-10-2024 End: 03-10-2024 Bamboo flowsheet Lai D Dolce DPM FACFAS Work Phone: [facility] Start: 03-10-2024 End: 03-10-2024 ambulatory LAI D DOLCE Not Available Start: 03-10-2024 End: 03-10-2024 Office outpatient new 30 minutes Lai D Dolce DPM FACFAS Work Phone: [facility] Comment on above: Venous insufficiency (chronic) (peripheral) (Primary Dx); Onychomycosis; Pain in right toe(s); Pain in left toe(s); Onychocryptosis Start: 03-02-2024 End: 03-02-2024 Patient encounter procedure Elmer Topete DDS Work Phone: [facility] Start: 03-02-2024 End: 03-02-2024 Subsequent hospital visit by physician Elmer Topete DDS Work Phone: [facility] Start: 03-02-2024 End: 03-02-2024 ambulatory ELMER TOPETE Facility:[facility] Start: 02-26-2024 End: 02-26-2024 Telephone encounter Kelly Cabello RN [facility] Comment on above: Pre-surgical Evaluat ion (DD adult dental restorations 03/02 under [place] at [facility]. PAT completed - anesthesia consent. ZOHRA RN spoke to Mary (nurse), confirmed NPO, [facility] address, and 0900 arrival time/) Start: 02-24-2024 End: 02-24-2024 Telephone encounter Ashleigh Kaplan RN [facility] Comment on above: PAT (Anesthesia cons ent obtained) Start: 02-21-2024 End: 02-21-2024 Telephone encounter Ashleigh Kaplan RN [facility] Comment on above: PAT (Anesthesia cons ent obtained) Start: 02-19-2024 End: 02-19-2024 Nursing evaluation of patient and report Kelly Cabello RN [facility] Comment on above: Pre-op evaluation (P rimary Dx) Start: 02-19-2024 End: 02-19-2024 Preprocedural examination done Kelly Cabello RN [facility] Start: 02-19-2024 ambulatory UNKNOWN PROVIDER Facili ty:[facility] Start: 02-19-2024 Encounter for other preprocedural examination UNKNOWN PROVIDER [facility] Start: 02-05-2024 End: 02-05-2024 Patient encounter procedure Refugio Ferrell CASEWORKER-SEWAGE DISPOSAL WORKER Work Phone: [facility] Comment on above: NO SHOW (Primary Dx) Start: 01-21-2024 End: 01-21-2024 Bamboo flowsheet Radha AMADOR Work Phone: [employer] [facility] Start: 01-21-2024 End: 01-21-2024 Bamboo flowsheet Radha AMADOR Work Phone: [employer] [facility] Start: 01-21-2024 End: 01-21-2024 ambulatory RADHA MARTINEZ Not Available Start: 01-21-2024 End: 01-21-2024 Office outpatient visit 15 minutes Radha AMADOR Work Phone: [employer] [facility] Comment on above: Seizure disorder (CM S/HCC) (Primary Dx); Mental deficiency (CMS/HCC); Autism (CMS/HCC); Pseudobulbar affect; Gait instability Start: 12-27-2023 End: 12-27-2023 Admission to same day surgery center Mike Weber DDS Work Phone: [facility] Start: 10-01-2023 End: 10-01-2023 ambulatory [...] Telephone encounter Martha dill DMD Work Phone: [facility] Comment on above: Dental Start: 04-03-2022 End: 04-04-[address] NATHAN TILLEY Facility:[facility] Start: 03-13-2022 End: 03-18-2022 Patient encounter procedure Martha Coreas DMD Work Phone: [facility] Start: 10-24-2021 End: 10-25-[address] DOCTOR JAVED Facility:[facility] Start: 11-07-2016 End: 11-08-2016 Ambulatory DEFAULT PHYSICIAN Facility:[facility] Procedures Date Procedure Procedure Detail Performing Clinician Start: 03-02-2024 End: 03-02-2024 Urine test visual color cmprsn neos Milton Luna MD Work Phone: Plan of Treatment Date Care Activity Detail Author Start: 2043 Shingles (RZV) Vacci ne (1 of 2) Shingles (RZV) Vaccine (1 of 2) [facility] Start: 06-10-2024 End: 06-10-2024 Patient encounter procedure 06/10/2024 10:30 AM EST Procedure Visit [facility] [address] [place] [address] Lai Alvarado DPM FACFAS [address] [place] [address] [place] [address] [facility] Start: 05-12-2024 End: 05-12-2024 Patient encounter procedure 05/12/2024 11:20 AM EST Office Visit [facility] [address] [place] [address] Radha Martinez PA [address] [place] [address] [facility] Start: 03-02-2024 End: 03-02-2024 Admission to same day surgery center 03/02/2024 9:14 AM EST - 03/02/2024 10:58 AM EST Surgery [facility] [address] [place], [place] [id number] Elmer Topete DDS [address] [id number] DENTAL RESTORATIONS [facility] Comment on above: [facility]AL [facility]ATIONS Start: 03-02-2024 End: 03-02-2024 DENTAL RESTORATIONS [facility] Start: 03-02-2024 End: 03-02-2024 Admission to same day surgery center 03/02/2024 7:40 AM EST - 03/02/2024 9:24 AM EST Surgery [facility] [address] [place] [address] Elmer Topete DDS [address] [place] [address] DENTAL RESTORATIONS [facility] Comment on above: DENTAL [facility]ORATIONS Start: 03-02-2024 End: 03-02-2024 DENTAL RESTORATIONS DENTAL RESTORATIONS Routine scheduled Caries 03/02/2024 7:40 AM EST [facility] Start: 03-02-2024 Subsequent hospital visit by physician [facility] Start: 03-02-2024 End: 03-02-2024 Patient encounter procedure [facility] Start: 02-05-2024 End: 02-05-2024 Patient encounter procedure 02/05/2024 9:15 AM EDT Office Visit [facility] [address] [place] [address] Refugio Ferrell, CASEWORKER-SEWAGE DISPOSAL WORKER [address] [place] [address] [facility] Start: 01-21-2024 Influenza vaccination Influenza Vacc ine (#[facility] Start: 01-21-2024 End: 01-20-2025 Lamotrigine level Lamotrigine level Lab Routine Seizure disorder ([facility]/HCC) Expected: 01/21/2024 (Approximate), Expires: 01/20/2025 [facility] Work Phone: Comment on above: Expected: 01/21/2024 (Approximate), Expires: 01/20/2025 Start: 01-21-2024 End: 01-20-2025 Valproic acid level, total Valproic acid level, total Lab Routine Seizure disorder (CMS/HCC) Expected: 01/21/2024 (Approximate), Expires: 01/20/2025 [facility] Comment on above: Expected: 01/21/2024 (Approximate), Expires: 01/20/2025 Start: 12-22-2023 COVID-19 Vaccine ( season) COVID-19 Vaccine ( season) [facility] Start: 12-22-2023 COVID-19 Vaccine ( season) COVID-19 Vaccine ( season) [facility] Start: 12-22-2023 Influenza vaccination Influenza Vacc ine (#1) [facility] Start: 2023 Screening for malign ant neoplasm of cervix [facility] Start: 01-20-2022 Influenza vaccination Influenza [...] [facility] Start: 01-02-2008 HIV screening HIV Test [facility] Start: 1993 Medicare Annual Wellness (AWV) Medicare Annual Wellness (AWV) [facility] DENTAL RESTORATIONS DENTAL MEENA RATIONS Routine scheduled Caries [facility] Payers Date Payer Category Payer Dental --Stand Alone DENTAL-MEDI CAID [id number] 2014 Unknown 2013 Medicaid [id number] 2012 Medicare [id number] 2012 Medicare FFS MEDICARE [id number] 1993 Unknown [id number] 32 1993 Unknown [id number] [id number] 32 1993 Unknown [id number] [id number] 32 1993 Unknown [id number] 2.840.1.180703.3.579.2.1 259 1993 Unknown [id number] 2.840.1.297163.3.579.2.1 259 1993 Unknown [id number] [id number] 259 1993 Unknown [id number] [id number] 259 1959 Medicaid [id number] 1959 Medicare [id number] 1954 Unknown [id number] [id number] 93 1954 Unknown [id number] [id number] 93 1954 Unknown [id number] [id number] 93 1954 Unknown [id number] [id number] 93 1954 Unknown [id number] [id number] 93 1954 Unknown [id number] [id number] 93 1954 Unknown [id number] [id number] 93 1954 Unknown [id number] [id number] 93 Social History Date Type Detail Facility Tobacco smoking stat [facility] Tobacco smoking consumption unknown [facility] Start: 1995 Sex Assigned At Not on file [facility] Start: 10-01-2023 End: 03-10-2024 Gender identity Not on file [facility] Start: 08-06-2023 End: 02-19-2024 Tobacco smoking status [facility] Never smoked tobacco [facility] Start: 08-06-2023 End: 02-19-2024 Tobacco use and exposure Smokeless tobacco non-user [facility] Start: 10-01-2023 End: 03-10-2024 Alcoholic beverage intake Lifetime non-drinker (finding) [facility] Start: 10-01-2023 End: 03-10-2024 History of Social function [facility] Start: 07-06-2014 Sex Female (finding) [facility] Clinical Notes 03-13-2022 to 03-10-2024 Lai Alvarado [...] subungual debris. They were painful to palpation 81322 on the right 80919 on the left. VASC: DP /PT were nonpalpable bilateral. Capillary refill time < 3 seconds Digits 1-5 bilateral NEURO: [place] Cecy 5.07 monofilament was intact B/L. Vibratory [...] Alvarado DPM FACFAS documented in this encounter [facility] 03-02-2024 Hospital Discharge instructions Rehana Aguillon RN - 03/02/2024 12:22 PM EST PERIOPERATIVE DISCHARGE/HOME-GOING INSTRUCTIONS ANESTHESIA - GENERAL (ADULT) If a problem arises, you may contact your physician by calling [phone] and asking for the resident drone operator for Dental service. Special Care Needs: Activity: [...] very uncomfortable and can t urinate, call [phone] or come to the emergency room. A [...] home going instructions. documented in this encounter [facility] 03-02-2024 Miscellaneous Notes Brief Operative Note [facility] OR 3 Chantel Ascencio 29 year old female Surgical Contact Serial Number: [id number] Preoperative Diagnosis: Pre-op Diagnosis * Caries [K02.9] Postoperative Diagnosis: * Caries [K02.9] Procedures: Full mouth x-ray [53468] Prophylaxis [79971] Restorations [85723] Floride application [16785] Surgeon(s): Surgeon(s): Elmer Topete DDS Staff: Diesel Locomotive Firer/Fireman Nurse: Trudi Padilla Baby Registry Sales Consultant: Paula Contreras DDS; Melquiades Christie DDS Anesthesia: General Anesthesiologist: Milton Luna MD STUDENT TRUCK DRIVER: Adalgisa Smith APRN-DARSHAN Medical File Clerk: Dayanna Preciado MD Specimen(s): * No specimens [...] were discussed with the patient and/or legal surgical sales representative. The risks, benefits and alternatives were reviewed. Questions regarding blood transfusions were answered. The patient /or the patient s legal surgical sales representative agree with the plan for transfusion of blood and/or blood components. Surgical Case Number Data Unavailable Operating Room Data Unavailable Preoperative Diagnosis(es): Caries [k02.9] Surgeon: Dr. 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 [employer] restorations [...] 11:56 AM EST documented in this encounter [facility] 03-02-2024 Surgery Postoperative evaluation and management note Brief Operative Note [facility] OR 3 Chantel Ascencio 29 year old female Surgical Contact Serial Number: [id number] Preoperative Diagnosis: Pre-op Diagnosis * Caries [K02.9] Postoperative Diagnosis: * Caries [K02.9] Procedures: Full mouth x-ray [15276] Prophylaxis [65622] Restorations [13048] Floride application [67638] Surgeon(s): Surgeon(s): Elmer Topete DDS Staff: Diesel Locomotive Firer/Fireman Nurse: Trudi Padilla Baby Registry Sales Consultant: Paula Contreras DDS; Melquiades Christie DDS Anesthesia: General Anesthesiologist: Milton Luna MD STUDENT TRUCK DRIVER: Adalgisa Smith APRN-DARSHAN Medical File Clerk: Dayanna Preciado MD Specimen(s): * No specimens [...] Topete DDS at 03/02/2024 11:55 AM EST [facility] 03-02-2024 History and physical note Images from the original note were not included. Surgical History and Physical [facility] [address] [place] [address] Name: Chantel Ascencio : 1995 29 year old CSN: [id number] Attending: Elmer Topete DDS Date of Admission: 03/02/2024 8:38 AM Room/Bed: [facility] OR/NONE Planned Procedure: Procedure(s): DENTAL RESTORATIONS HPI: [...] surgical history indicates: EXTRACTION, TOOTH (09/15/2014) Procedure: Chamberlain teeth; Surgeon: Bradley Goodwin DDS; Location: PERIOPERATIVE [...] or any previous visit (from the past 52197 hours). BMP (last 3 years, up to [...] Topete DDS at 03/02/2024 11:48 AM EST [facility] Work Phone: 03-02-2024 Note Surgical History and Physical [facility] [address] [place], [place] [id number] Name: Chantel Ascencio : 1995 29 year old CSN: [id number] Attending: Elmer Topete DDS Date of Admission: 03/02/2024 8:38 AM Room/Bed: [facility] OR/NONE Planned Procedure: Procedure(s): DENTAL RESTORATIONS HPI: [...] surgical history indicates: EXTRACTION, TOOTH (09/15/2014) Procedure: Chamberlain teeth; Surgeon: Bradley Goodwin DDS; Location: PERIOPERATIVE [...] or any previous visit (from the past 52649 hours). BMP (last 3 years, up to [...] Melquiades Stewart DDS 03/02/24 9:38 AM [facility] 03-02-2024 History and physical note Surgical [...] Topete DDS at 03/02/2024 11:48 AM EST [facility] 03-02-2024 Note Surgical Attestation : I have [...] Melquiades Stewart DDS 03/02/2024 9:38 AM [facility] 03-02-2024 Progress note Formatting of t his note is different from the original. Blood Attestation: ATTESTATION OF INFORMED CONSENT FOR BLOOD: The transfusion of blood and/or blood components were discussed with the patient and/or legal surgical sales representative. The risks, benefits and alternatives were reviewed. Questions regarding blood transfusions were answered. The patient /or the patient s legal surgical sales representative agree with the plan for transfusion of blood and/or blood components. [facility] Work Phone: 03-02-2024 History of Present illness Narrative ----- Saturday, March 02, 2024 at 11:38:59 AM ----- ----- Provider: Pradip Rebolledo DDS -- Clinic: [facility] ----- [place] notes, pt is ready for tx [place]. X-Rays look good, few cavities found and confirmed clinically. restos completed. OP Note by Paula Contreras DDS at 03/01/2024 6:14 PM Author: Paula Contreras DDS Service: Dentistry Author Type: Resident Filed: 03/02/2024 11:56 AM Date of Service: 03/01/2024 6:14 PM Note Type: OP Note Status: Cosign Needed Valet Parker: Paula Contreras DDS (Resident) Cosign Required: Yes Expand All Collapse All Surgical Case Number Data Unavailable Operating Room Data Unavailable Preoperative Diagnosis(es): Caries [k02.9] Surgeon: Dr. 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 Amalgam restorations [...] ----- Provider: Pradip Rebolledo DDS -- Clinic: [facility] ----- documented in this encounter [facility] 03-01-2024 Surgery Surgical operation note Surgical Case Number Data Unavailable Operating Room Data Unavailable Preoperative Diagnosis(es): Caries [k02.9] Surgeon: Dr. 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 Amalgam restorations [...] Topete DDS at 03/02/2024 11:56 AM EST [facility] 03-01-2024 Note Surgical Attestation : I have reviewed the patient's History and Physical Examination. I have personally seen and evaluated the patient, repeating cabrera portions. There is no significant interval change. Surgery is still indicated. Yes Consent reviewed and signed by patient/family: Yes Operative site verified and marked: Verified but not marked Paula Contreras DDS 03/01/2024 6:10 PM [facility] 02-24-[facility]24 Telephone encounter Note Anesthesia consent obtained and scanned into [employer]. Scheduled for surgery 03/02/2024. [facility] 02-24-2024 Miscellaneous Notes Anesthesia consent obtained and scanned into [employer]. Scheduled for surgery 03/02/2024. documented in this encounter [facility] 02-21-2024 Telephone encounter Note Anesthesia consent obtained and scanned into [employer]. Scheduled for surgery 03/02/2024. [facility] 02-21-2024 Miscellaneous Notes Anesthesia consent obtained and scanned into [employer]. Scheduled for surgery 03/02/2024. documented in this encounter [facility] 02-19-2024 Instructions Kelly Cabello RN - 02/19/2024 [...] otherwise contacted. ? Expect a call from [facility] one business day prior to surgery for [...] your Preparing for Your Surgery/Procedure booklet or [email or web address] if you have questions. Contact the Pre-Admission Testing department at [phone] or your surgeon's office with any questions [...] stay with you after surgery. Please call [facility] [employer] if you need transportation assistance or have concerns about going home [phone]. ? PLEASE BE ON TIME. A late arrival may result in the cancellation/ delay of your surgery. Thank you for choosing [facility]; it is our pleasure to care for you documented in this encounter [facility] 02-19-2024 Evaluation note Telephone History Chantel Ascencio, [id number] 02/19/2024 Patient was identified by name and date of via Ivon, caregiver. Needs: Physical, Neck Circumference, BHCG, and ED on DOS. Note: OSH records/labs scanned to media supervisor. If the patient becomes ill prior to procedure or surgery, they are to call their provider or surgeon's office directly. 29 year old 136.6 lbs 5' 4 Date of Surgery: 03/02 Surgeon: Yoselyn Type of Surgery: DENTAL RESTORATIONS HISTORY OF PRESENT ILLNESS: telephone history for the upcoming surgery at [facility], [address] [place], enter through the west entrance doors. 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 Fluticasone Propionate (FLONASE NASAL) [place] into each nostril. Selenium (SELENIMIN ORAL) Take [...] otherwise contacted. ? Expect a call from [facility] one business day prior to surgery for [...] your Preparing for Your Surgery/Procedure booklet or [email or web address] if you have questions. Contact the Pre-Admission Testing department at [phone] or your surgeon's office with any questions [...] stay with you after surgery. Please call [facility] if you need transportation assistance or have concerns about going home [phone]. ? PLEASE BE ON TIME. A late arrival may result in the cancellation/ delay of your surgery. [facility]; it is our pleasure to care for you Kelly Cabello RN Time Spent Performing this Telephone History: 48 with follow-up [facility]: [facility] 02-19-2024 Miscellaneous Notes Telephone History Chantel Ascencio, [id number] 02/19/2024 Patient was identified by name and [...] telephone history for the upcoming surgery at [facility], [address] [place], enter through the vernon entrance doors. STOP-BANG Row Name 02/19/24 0776 History of sleep apnea? 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 Fluticasone Propionate (FLONASE NASAL) [place] into each nostril. Selenium (SELENIMIN ORAL) Take [...] otherwise contacted. ? Expect a call from [facility] one business day prior to surgery for [...] your Preparing for Your Surgery/Procedure booklet or [email or web address] if you have questions. Contact the Pre-Admission Testing department at [phone] or your surgeon's office with any questions [...] stay with you after surgery. Please call [facility] if you need transportation assistance or have concerns about going home [phone]. ? PLEASE BE ON TIME. A late arrival may result in the cancellation/ delay of your surgery. Thank you for choosing [facility]; it is our pleasure to care for you Kelly Cabello RN Time Spent Performing this Telephone History: 48 with follow-up [facility]: documented in this encounter [facility] 02-19-2024 Miscellaneous Notes Telephone History Chantel Ascencio, [id number] 02/19/2024 Patient was identified by name and date of via Ivon, caregiver. Needs: Physical, Neck Circumference, BHCG, and ED on DOS. Note: OSH records/labs scanned to media supervisor. If the patient becomes ill prior to procedure or surgery, they are to call their provider or surgeon's office directly. 29 year old 136.6 lbs 5' 4 Date of Surgery: 03/02 Surgeon: Yoselyn Type of Surgery: DENTAL RESTORATIONS HISTORY OF PRESENT ILLNESS: telephone history for the upcoming surgery at [facility], [address] [place], enter through the west entrance doors. 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 Fluticasone Propionate (FLONASE NASAL) [place] into each nostril. Selenium (SELENIMIN ORAL) Take [...] otherwise contacted. ? Expect a call from [facility] one business day prior to surgery for [...] your Preparing for Your Surgery/Procedure booklet or [email or web address] if you have questions. Contact the Pre-Admission Testing department at [phone] or your surgeon's office with any questions [...] a car, cab, shared ride service, or [employer]-van. You will not be allowed to drive yourself home or travel home alone. Your surgery may be cancelled if you do not have a ride. A responsible adult must stay with you after surgery. Please call [facility] if you need transportation assistance or have concerns about going home [phone]. ? PLEASE BE ON TIME. A late arrival may result in the cancellation/ delay of your surgery. Thank you for choosing [facility]; it is our pleasure to care for you Kelly Cabello RN Time Spent Performing this Telephone History: 48 with follow-up [place]: documented in this encounter [facility] 10-21-2023 History and physical note Images from the original note were not included. Surgical History and Physical [facility] [address] [address] Name: Chantel Ascencio : 1995 29 year old CSN: [id number] Attending: Elmer Topete DDS Date of Admission: 03/02/2024 8:38 AM Room/Bed: [facility] OR/NONE Planned Procedure: Procedure(s): DENTAL RESTORATIONS HPI: [...] surgical history indicates: EXTRACTION, TOOTH (09/15/2014) Procedure: Chamberlain teeth; Surgeon: Bradley Goodwin DDS; Location: PERIOPERATIVE [...] or any previous visit (from the past 14742 hours). BMP (last 3 years, up to [...] 11:48 AM EST documented in this encounter [facility] 04-30-2022 Miscellaneous Notes Bina from [facility] calling in. She wanted to know where the pt was at on the OR wait list. E-mail sent to Connie E-mail sent 04/30/22 documented in this encounter [facility] 04-30-2022 Telephone encounter Note Bina from [facility] calling in. She wanted to know where the pt was at on the OR wait list. E-mail sent to Connie E-mail sent 04/30/22 [facility] 03-13-2022 History of Present illness Narrative ----- Sunday, March 13, 2022 at 11:58:40 AM ----- ----- Provider: [id number] Coreas DMD -- Clinic: [facility] ----- OR EVALUATION Patient presents for evaluation [...] available. Legal Guardian: Toshia Ascencio Phone #: [phone] NOTE: Patient had a hard time leaning her head back, but allowed me to look. Patient not indicating she is in any pain. #8 is very discolored - most likely will need RCT treatment. Gingiva very red and irritated. Caregiver did not know who patient's guardian was or contact information, looked it up in [facility]. Next Visit: OR documented in this encounter [...] DENTOALVEOLAR STRUCTURES DENTAL RESTORATIONS Elmer Topete, DDS [address] [place] [address] Phone: tel: fax: [facility] [employer] [place] [address] Phone: tel: Referral ID Status Reason Start Date Expiration Date Visits Re quested Visits Authorized [id number] 3 [facility] Purpose Family History No Family History Records FoundNo Family History Records FoundNo Family History Records FoundNo Family History Records Found Advance Directives No Advanced Directives Records FoundNo Advanced Directives Records FoundNo Advanced Directives Records FoundNo Advanced Directives Records Found Reason for Referral Specialty Diagnoses / Procedures Referred By Contac t Referred To Contact Anesthesiology Diagnoses Caries Elmer Topete, DDS [address] [place] [address] [facility] PRE ADMISSION TESTING [address] [place] [address] Referral ID Status Reason Start Date Expiration Date V isits Requested Visits Authorized [id number] Authorized 12/27/2023 12/26/2024 1 1 Scheduling Instructions Your surgical team will reach out to you to schedule a pre-admission testing appointment. Question Answer Reason for consult? Recommended PAT Risk Score Additional Source Comments INFORMATION SOURCE (unrecogn ized section and content) DATE CREATED AUTHOR 10/16/2017 [facility] DATE CREATED AUTHOR AUTHOR'S ORGANIZ ATION 09/02/2022 [facility] DATE CREATED AUTHOR AUTHOR'S ORGANIZ ATION 03/10/2024 [facility] DATE CREATED AUTHOR AUTHOR'S ORGANIZ ATION 03/12/2024 [facility] EPIC Reason for Visit (unrecogniz ed section and content) Reason Onset Date Comments Dental 04/30/2022 Reason Comments Seizures Reason Onset Date Comments PAT 02/21/2024 Anesthesia conse nt obtained Reason Onset Date Comments PAT 02/24/2024 Anesthesia conse nt obtained Reason Onset Date Comments Pre-surgical Evaluation 02/26/2024 DD adult dental restorations 03/02 under [place] at [place]. PAT completed - anesthesia consent. 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 Relationship Specialty Start Date End Date Unallocated, May Schneider MD [address] [place] [address] [place] [address] PCP - General Family Medicine 07/09/23 Kirs Mcguire MD [address] [place] [id number] Referring Physician Neurology 07/09/23 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 [employer] provides no warranty or guarantee of the accuracy or completeness of information in this document.
[2024-04-01 11:08] LABS: Free T4 0.81 ng/dL (0.76-1.46)
[2024-04-01 14:10] LABS: Valproic Acid 99.6 ug/mL (50.0-100.0)
[2024-04-06 06:07] LABS: Lamotrigine (Lamictal), Serum 11.8 ug/mL (2.0-20.0)
== END 2024-04-01 07:24 | disposition home or self-care (01) ==
LOC: LAB 07:23
PROVIDERS: PCP Family Medicine; Visit Provider Family Medicine
DX: G40.909 Epilepsy, unspecified, not intractable, without status epilepticus (principal); Z79.899 Other long term (current) drug therapy; E06.3 Autoimmune thyroiditis; F31.9 Bipolar disorder, unspecified
CPT/HCPCS: 36415; 80164; 80175; 84439; 84443

== ENCOUNTER 2024-05-29 06:37 | Outpatient (OUT) | payer MEDICARE, MEDICAID, SELFPAY ==
--- OUTSIDE RECORDS SUMMARY | 2024-05-29 06:40 | XMS_ITS | CCD ---
Author Organization [facility] Care Team Providers Care Gallery Or Museum Attendant Name Role Phone PHYSICIAN, DEFAULT Unavailable Unavailable [...] (1 source) Allopurinol Drug Allergy 07-16-2013 [facility] (1 source) Ethosuximide Drug Allergy 07-16-2013 [facility] (9 sources) linaclotide; Translations: [LINACLOTIDE] Drug [...] (12 sources) Corticosteroid Fluticasone Propionate (FLONASE NASAL) Kennedy into each nostril. Suspended Fluticasone Prop ionate (FLONASE NASAL) Kennedy into each nostril. Active Fluticasone Prop ionate (FLONASE NASAL) Kennedy into each nostril. 0 Active guanFACINE 2 [...] by mouth daily. 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 Scheduled for surgery 03/02/2024. ) Questions answered / anesthesia plan accepted ( Anesthesia consent obtained and scanned into [employer]. Scheduled for surgery 03/02/2024. ) Past medical history, surgical history, allergies, and medications reviewed. Pertinent laboratory tests, EKG, imaging, and consults reviewed and I have personally seen and evaluated the patient, repeating cabrera portions of the history and physical examination. Attestation: Anesthesia options were discussed with the patient and/or legal floor representative. The risks, benefits and alternatives were reviewed. Questions regarding anesthesia were answered. Patient and/or legal floor representative knows such anesthetics and procedures may be performed by Resident physicians, Certified Anesthesiologist Assistants, or Certified Nurse Anesthetists under the supervision of a physician. The patient /or the patient's legal floor representative agree with the plan for anesthesia. Comment: Anesthesia consent obtained and scanned into [employer]. Scheduled for surgery 03/02/2024. [facility]FORM Normal [facility] An[facility] Transfer Of Careo n 03-02-2024 [employer]hentication Interface Message Text Patient taken to [...] surgical history indicates: EXTRACTION, TOOTH (09/15/2014) Procedure: Danese teeth; Surgeon: Bradley Goodwin DDS; Location: PERIOPERATIVE SERVICES; Service: Oral EUA, ORAL (09/15/2014) Procedure: EUA, ORAL; Surgeon: Bradley Goodwin DDS; Location: PERIOPERATIVE SERVICES; Service: Oral Allergies: Linzess [linaclotide] and Zarontin [ethosuximide] Basic Operating Room Facts: Surgeon(s): Elmer Topete DDS Anesthesiologist: Milton Luna MD UNISHEAR OPERATOR: Adalgisa Smith APRN-DARSHAN Build And Deployment Engineer: Dayanna Preciado MD DENTAL RESTORATIONS (Right: Mouth) [...] of the report was received. Adalgisa Smith, EXECUTIVE TALENT ACQUISITION CONSULTANT-UNISHEAR OPERATOR Normal [facility] Blood Attestationon 03-02-20 [employer] Interface Message Text Blood Attestation: ATTESTATION OF INFORMED CONSENT FOR BLOOD: The transfusion of blood and/or blood components were discussed with the patient and/or legal floor representative. The risks, benefits and alternatives were reviewed. Questions regarding blood transfusions were answered. The patient /or the patient's legal floor representative agree with the plan for transfusion of blood and/or blood components. Normal [facility] Brief Operative Noteon 03-02 [employer] Interface Message Text Brief Operative Note PHE OR 3 Chantel Ascencio 29 year old female Surgical Contact Serial Number: [id number] Preoperative Diagnosis: Pre-op Diagnosis * Caries [K02.9] Postoperative Diagnosis: * Caries [K02.9] Procedures: Full mouth x-ray [28504] Prophylaxis [31107] Restorations [89316] Floride application [97743] Surgeon(s): Surgeon(s): Elmer Topete DDS Staff: Extraction Machine Operator Nurse: Trudi Padilla Scrap Drop Crane Operator: Paula Contreras DDS; Melquiades Christie DDS Anesthesia: General Anesthesiologist: Milton Luna MD UNISHEAR OPERATOR: Adalgisa Smith APRN-DARSHAN Build And Deployment Engineer: Dayanna Preciado MD Specimen(s): * No specimens [...] Contreras DDS 03/02/2024 11:48 AM Normal [facility] Progress Noteson 03-02-2024 [employer] Interface Message Text ----- Saturday, March 02, 2024 at 11:38:59 AM ----- ----- Provider: [id number] Rebolledo DDS -- Clinic: [facility] ----- ANGELICA notes, pt is ready for tx [place]. X-Rays look good, few cavities found and confirmed clinically. restos completed. OP Note by Paula Contreras DDS at 03/01/2024 6:14 PM Author: Paula Contreras DDS Service: Dentistry Author Type: Resident Filed: 03/02/2024 11:56 AM Date of Service: 03/01/2024 6:14 PM Note Type: OP Note Status: Cosign Needed Answerer: Paula Contreras DDS (Resident) Cosign Required: Yes Expand All Collapse All Surgical Case Number Data Unavailable Operating Room Data Unavailable Preoperative Diagnosis(es): Caries [k02.9] Surgeon: Dr. Topete Scanner Operator Surgeon: Melquiades Arias DDS - Paula Contreras [...] the treatment plan included the following: Composite worship on tooth #7 surface ML. [employer] restorations [...] 2024 at 11:57:17 AM ----- ----- Provider: [id number] - Elmer Rebolledo DDS -- Clinic: [facility] [...] Positive [facility] OP Noteon 03-01-2024 [employer] Interface Message Text Surgical Case Number Data Unavailable Operating Room Data Unavailable Preoperative Diagnosis(es): Caries [k02.9] Surgeon: Dr. Topete Scanner Operator Surgeon: Melquiades Arias DDS - Paula Contreras [...] the treatment plan included the following: Composite worship on tooth #7 surface ML. [employer] restorations [...] Contreras DDS 03/01/2024 6:15 PM Normal [facility] Telephone Encounteron 2023 [employer] Interface Message Text Anesthesia consent obtained and scanned into [employer]. Scheduled for surgery 03/02/2024. Normal [facility] Telephone Encounteron 2023 [employer] Interface Message Text Anesthesia consent obtained and scanned into [employer]. Scheduled for surgery 03/02/2024. Normal [facility] PAT Call Historyon [employer] Interface Message Text Telephone History Chantel Ascencio, [id number] 02/19/2024 Patient was identified by name and date of via Ivon, caregiver. Needs: Physical, Neck Circumference, BHCG, and ED on DOS. Note: OSH records/labs scanned to media planner. If the patient becomes ill prior to procedure or surgery, they are to call their provider or surgeon's office directly. 29 year old 136.6 lbs 5' 4 Date of Surgery: 03/02 Surgeon: Yoselyn Type of Surgery: DENTAL RESTORATIONS HISTORY OF PRESENT ILLNESS: [facility] [address] [place], enter through the [facility] doors. STOP-BANG Row Name 02/19/24 3364 History of sleep apnea? 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 Fluticasone Propionate (FLONASE NASAL) Kennedy into each nostril. Selenium (SELENIMIN ORAL) Take by mouth. Sennosides (SENNA) 15 MG tablet Take 1 Tab by mouth daily as needed for Constipation. topiramate (TOPIRAGEN) 25 MG tablet Take 75 mg by mouth 2 times daily (more content not included)... Normal [facility] Progress Noteson 02-17-2024 [employer] Interface Message Text Patient PAT has be rescheduled for 02/19/2024--for OR visit 03/02/2024----- Saturday, February 17, 2024 at 10:10:00 AM ----- ----- Provider: LESLIE Claros Dental-Product Expert -- Clinic: [facility] ----- Normal [facility] Progress Noteson 02-05-2024 [employer] Interface Message Text Patient was no show for PAT today at [facility] surgery is scheduled 03/02-Contact Concetta @ [email or web address] --advised if PAT needs to reschedule or patient will be removed from OR----- Monday, February 05, 2024 at 4:24:04 PM ----- ----- Provider: LESLIE Claros Dental-Product Expert -- Clinic: [facility] ----- Normal [facility] Progress Noteson 01-08-2024 [employer] Interface Message Text Parent/guardian/pat ient was contacted for PAT AND OR Sedation scheduled -- confirmed information with patient, also informed mom importance of going to PAT appointment -- if missed, IV Sedation will be cancelled, and you will be placed back on wait list 03/02/24----- Monday, January 08, 2024 at 2:14:12 PM ----- ----- Provider: LESLIE Claros Dental-Product Expert -- Clinic: [facility] ----- Normal [facility] Progress Noteson 12-30-2023 [employer] Interface Message Text Attempted to contact patient/ parent / guardian at telephone number listed -- no answer, left voicemail message requesting a return call.----- Saturday, December 30, 2023 at 2:26:35 PM ----- ----- Provider: LESLIE Claros Dental-Product Expert -- Clinic: [facility] ----- Normal [facility] FREE T4on 08-29-2022 Free T4 [Mass/Vol] 1.76 ng/dL Critically high 0.76-1.46 [facility] Comment on above: Performed By: #### F T4 #### [facility] [address] [place] [address] Dr. Volodymyr Paez TSHon 08-29-2022 TSH Qn m[IU]/L Critically low 0.358-3.[address] [facility] Comment on above: Performed By: #### T SH #### [facility] [address] [place] [address] Dr. Volodymyr Paez CULTURE URINEon 08-24-2022 CULTURE [...] S F Tetracycline >=16 R F Normal [facility] Comment on above: Performed By: #### T SH, CMP #### [facility] [address] [place] [address] Dr. Volodymyr Paez UA (CLEAN/CATCH) SUPERVISOR ROLLER SHOP/MICRO I F IND.on 08-21-2022 Bilirubin Ql (U) Negative Normal NEGATIVE [facility] Comment on above: Performed By: #### U ACSIND, UMICRO #### [facility] [address] [place] [address] Dr. Volodymyr Paez Clarity (U) CLEAR Normal CLEAR [facility] Comment on above: Performed By: #### U ACSIND, UMICRO #### [facility] [address] [place] [address] Dr. Volodymyr Paez Color (U) LT. YELLOW Normal YELLOW [facility] Comment on above: Performed By: #### U ACSIND, ICRO #### [facility] [address] [place] [address] Dr. Volodymyr Paez Glucose Ql (U) Negative Normal NEGATIVE [facility] Comment on above: Performed By: #### U ACSIND, ICRO #### [facility] [address] [place] [address] Dr. Volodymyr Paez Hemoglobin Ql (U) Negative Normal NEGATIVE [facility] Comment on above: Performed By: #### U ACSIND, ICRO #### [facility] [address] [place] [address] Dr. Volodymyr Paez Ketones Ql (U) Negative Normal NEGATIVE [facility] Comment on above: Performed By: #### U ACSIND, UMICRO #### [facility] [address] [place] [address] Dr. Volodymyr Paez LEUKOCYTES SMALL Abnormal NEGATIVE [facility] Comment on above: Performed By: #### U ACSIND, UMICRO #### [facility] [address] [place] [address] Dr. Volodymyr Paez Nitrite Ql (U) Negative Normal NEGATIVE [facility] Comment on above: Performed By: #### U ACSIND, UMICRO #### [facility] [address] [address] [address] Volodymyr Paez pH (U) 7.0 [pH] Normal 5-9 [facility] Comment on above: Performed By: #### U ACSIND, UMICRO #### [facility] [address] [address] [address] Volodymyr Paez SPEC GRAVITY 1.020 Normal 1.005-<=1.[address] [facility] Comment on above: Performed By: #### U ACSIND, UMICRO #### [facility] [address] [address] [address] Volodymyr Paez UA PROTEIN Negative Normal NEGATIVE/ TRACE [facility] Comment on above: Performed By: #### U ACSIND, UMICRO #### [facility] [address] [place] [address] Dr. Volodymyr Paez UR MICRO IND INDICATED Normal [facility] Comment on above: Performed By: #### U ACSIND, UMICRO #### [facility] [address] [address] [address] Volodymyr Paez Urobilinogen Qn (U) 0.2 {Leta'U}/dL Normal 0.2 - 1. 0 [facility] Comment on above: Performed By: #### U ACSIND, UMICRO #### [facility] [address] [place] [address] Dr. Volodymyr Paez URINE MICROSCOPIC ONLYon BACTERIA SMALL Abnormal NONE SEEN [facility] Comment on above: Performed By: #### U ACSIND, UMICRO #### [facility] [address] [address] [address] Volodymyr Paez Bacteria identified Cx Nom (U) INDICATED Normal [facility] Comment on above: Performed By: #### U ACSIND, UMICRO #### [facility] [address] [place] [address] Dr. Volodymyr Paez CAST NONE SEEN Normal NONE SEEN [facility] Comment on above: Performed By: #### U ACSIND, UMICRO #### [facility] [address] [address] [address] Volodymyr Paez Crystals LM Nom (Urine sed) NONE SEEN Normal NONE SEEN [facility] Comment on above: Performed By: #### U ACSSHAHEEN, UMICRO #### [facility] [address] [address] [address] Volodymyr Paez Epithelial cells LM Ql (Urine sed) MODERATE Abnormal NONE SEEN /RARE [facility] Comment on above: Performed By: #### U ACSSHAHEEN, UMICRO #### [facility] [address] [address] [address] Volodymyr Paez MUCOUS TRACE Abnormal NONE SEEN [facility] Comment on above: Performed By: #### U ACSSHAHEEN, UMICRO #### [facility] [address] [place] [address] Dr. Volodymyr Paez RBC 2-5 Abnormal 0-2 [facility] Comment on above: Performed By: #### U ACSSHAHEEN, ICRO #### [facility] [address] [place] [address] Dr. Volodymyr Paez WBC 10-20 Abnormal NONE SEEN [facility] Comment on above: Performed By: #### U ACSSHAHEEN, ICRO #### [facility] [address] [place] [address] Dr. Volodymyr Paez LAMOTRIGINEon 08-13-2022 Lamotrigine, Serum 11.2 ug/mL Normal 2.0-20.0 [facility] Comment on above: Result Comment: Dete ction Limit = 1.0 Performed By: #### T SH, CMP #### [facility] [address] [place] [address] Dr. Volodymyr Paez CBC AUTO DIFFon 08-09-2022 BASO # 0.0 103/ul Normal 0.0-0.1 [facility] Comment on above: Performed By: #### C BC #### [facility] [address] [place] [address] Dr. Volodymyr Paez Basophils/100 WBC (Bld) 0.4 % Normal 0.2-2.0 [facility] Comment on above: Performed By: #### C BC #### [facility] [address] [address] [address] Volodymyr Paez EO # 0.4 103/ul Normal 0.0-0.7 [facility] Comment on above: Performed By: #### C BC #### [facility] [address] [place] [address] Dr. Volodymyr Paez Eosinophils/100 WBC (Bld) 4.3 % Normal 0.9-7.0 [facility] Comment on above: Performed By: #### C BC #### [facility] [address] [place] [address] Dr. Volodymyr Paez Erythrocyte distribution width (RBC) [Ratio] 13.2 % Normal 11.0-15.0 [facility] Comment on above: Performed By: #### C BC #### [facility] [address] [place] [address] Dr. Volodymyr Paez Hematocrit (Bld) [Volume fraction] 40.2 % Normal 36.0-48.0 [facility] Comment on above: Performed By: #### C BC #### [facility] [address] [place] [address] Dr. Volodymyr Paez Hemoglobin (Bld) [Mass/Vol] 13.8 g/dL Normal 12.0-16.0 [facility] Comment on above: Performed By: #### C BC #### [facility] [address] [place] [address] Dr. Volodymyr Paez IG # 0.02 10e3/ul Normal 0.00-0.03 [facility] Comment on above: Performed By: #### C BC #### [facility] [address] [place] [address] Dr. Volodymyr Paez IG % 0.2 % Normal 0.0-0.5 [facility] Comment on above: Performed By: #### C BC #### [facility] [address] [place] [address] Dr. Volodymyr Paez LYMPH # 4.3 103/ul Critically high 1.2-3.[address] [facility] Comment on above: Performed By: #### C BC #### [facility] [address] [place] [address] Dr. Volodymyr Paez Lymphocytes/100 WBC (Bld) 51.8 % Normal 20.5-60.0 [facility] Comment on above: Performed By: #### C BC #### [facility] [address] [place] [address] Dr. Volodymyr Paez MANUAL DIFF REQ NO Normal The [facility] Comment on above: Performed By: #### C BC #### [facility] [address] [place] [address] Dr. Volodymyr Paez MCH (RBC) [Entitic mass] 31.0 pg Normal 26.7-34.0 [facility] Comment on above: Performed By: #### C BC #### [facility] [address] [place] [address] Dr. Volodymyr Paez MCHC (RBC) [Mass/Vol] 34.3 g/dL Normal 29.9-35.2 [facility] Comment on above: Performed By: #### C BC #### [facility] [address] [place] [address] Dr. Volodymyr Paez MCV (RBC) [Entitic vol] 90.3 fL Normal 81.0-99.0 [facility] Comment on above: Performed By: #### C BC #### [facility] [address] [place] [address] Dr. Volodymyr Paez MONO # 0.9 103/ul Critically high 0.3-0.8 The [facility] Comment on above: Performed By: #### C BC #### [facility] [address] [place] [address] Dr. Volodymyr Paez Monocytes/100 WBC (Bld) 10.4 % Normal 1.7-12.0 [facility] Comment on above: Performed By: #### C BC #### [facility] [address] [place] [address] Dr. Volodymyr Paez NEUT # 2.7 103/ul Normal 1.4-6.5 [facility] Comment on above: Performed By: #### C BC #### [facility] [address] [place] [address] Dr. Volodymyr Paez Neutrophils/100 WBC (Bld) 32.9 % Critically low 43.0-75.0 [facility] Comment on above: Performed By: #### C BC #### [facility] [address] [place] [address] Dr. Volodymyr Paez Platelet mean volume (Bld) [Entitic vol] 10.3 fL Normal 9.5-13.5 [facility] Comment on above: Performed By: #### C BC #### [facility] [address] [place] [address] Dr. Volodymyr Paez PLT 231 103/ul Normal 150-450 [facility] Comment on above: Performed By: #### C BC #### [facility] [address] [place] [address] Dr. Volodymyr Paez RBC 4.45 106/ul Normal 4.20-5.40 [facility] Comment on above: Performed By: #### C BC #### [facility] [address] [place] [address] Dr. Volodymyr Paez WBC 8.2 103/ul Normal 4.0-11.0 [facility] Comment on above: Performed By: #### C BC #### [facility] [address] [place] [address] Dr. Volodymyr Paez DEPAKENE/ VALPROIC ACIDon DEPAKENE 80.3 ug/ml Normal 50.0-100.0 [facility] Comment on above: Performed By: #### V ALP #### [facility] [address] [place] [address] Dr. Volodymyr Paez US THYROIDon 07-10-2022 US [...] 6 mm. No follow-up required TI-RADS: The [employer] TI-RADS committee's white paper recommendations for thyroid lesions classified as TR4 (moderately suspicious) are listed below: > 1.0 cm. Follow-up ultrasound in 1, 2, 3, and 5 years. > 1.5 cm. FNA. J. Am Chidi Radiol 2017;14:587-595. Electronically authenticated by: MATILDE WATERMAN Date: 2022-07-10 13:01 Normal [facility] LAMOTRIGINEon 06-29-2022 Lamotrigine, Serum 14.2 ug/mL Normal 2.0-20.0 [facility] Comment on above: Result Comment: Dete ction Limit = 1.0 Performed By: #### T SH, CMP #### [facility] [address] [place] [address] Dr. Volodymyr Paez CBC AUTO DIFFon 06-27-2022 BASO # 0.1 103/ul Normal 0.0-0.1 [facility] Comment on above: Performed By: #### T SH, CMP #### [facility] [address] [place] [address] Dr. Volodymyr Paez Basophils/100 WBC (Bld) 0.7 % Normal 0.2-2.0 [facility] Comment on above: Performed By: #### T SH, CMP #### [facility] [address] [place] [address] Dr. Volodymyr Paez EO # 0.4 103/ul Normal 0.0-0.7 [facility] Comment on above: Performed By: #### T SH, CMP #### [facility] [address] [place] [address] Dr. Volodymyr Paez Eosinophils/100 WBC (Bld) 5.1 % Normal 0.9-7.0 [facility] Comment on above: Performed By: #### T SH, CMP #### [facility] [address] [place] [address] Dr. Volodymyr Paez Erythrocyte distribution width (RBC) [Ratio] 13.1 % Normal 11.0-15.0 [facility] Comment on above: Performed By: #### T SH, CMP #### [facility] [address] [place] [address] Dr. Volodymyr Paez Hematocrit (Bld) [Volume fraction] 39.7 % Normal 36.0-48.0 [facility] Comment on above: Performed By: #### T SH, CMP #### [facility] [address] [place] [address] Dr. Volodymyr Paez Hemoglobin (Bld) [Mass/Vol] 13.3 g/dL Normal 12.0-16.0 [facility] Comment on above: Performed By: #### T SH, CMP #### [facility] [address] [place] [address] Dr. Volodymyr Paez IG # 0.02 10e3/ul Normal 0.00-0.03 [facility] Comment on above: Performed By: #### T SH, CMP #### [facility] [address] [place] [address] Dr. Volodymyr Paez IG % 0.3 % Normal 0.0-0.5 [facility] Comment on above: Performed By: #### T SH, CMP #### [facility] [address] [place] [address] Dr. Volodymyr Paez LYMPH # 3.6 103/ul Normal 1.2-3.8 [facility] Comment on above: Performed By: #### T SH, CMP #### [facility] [address] [place] [address] Dr. Volodymyr Paez Lymphocytes/100 WBC (Bld) 47.4 % Normal 20.5-60.0 [facility] Comment on above: Performed By: #### T SH, CMP #### [facility] [address] [place] [address] Dr. Volodymyr Paez MANUAL DIFF REQ NO Normal [facility] Comment on above: Performed By: #### T SH, CMP #### [facility] [address] [address] [address] Volodymyr Paez MCH (RBC) [Entitic mass] 30.3 pg Normal 26.7-34.0 [facility] Comment on above: Performed By: #### T SH, CMP #### [facility] [address] [place] [address] Dr. Volodymyr Paez MCHC (RBC) [Mass/Vol] 33.5 g/dL Normal 29.9-35.2 [facility] Comment on above: Performed By: #### T SH, CMP #### [facility] [address] [place] [address] Dr. Volodymyr Paez MCV (RBC) [Entitic vol] 90.4 fL Normal 81.0-99.0 [facility] Comment on above: Performed By: #### T SH, CMP #### [facility] [address] [place] [address] Dr. Volodymyr Paez MONO # 0.9 103/ul Critically high 0.3-0.[address] [facility] Comment on above: Performed By: #### T SH, CMP #### [facility] [address] [place] [address] Dr. Volodymyr Paez Monocytes/100 WBC (Bld) 11.3 % Normal 1.7-12.0 [facility] Comment on above: Performed By: #### T SH, CMP #### [facility] [address] [place] [address] Dr. Volodymyr Paez NEUT # 2.7 103/ul Normal 1.4-6.5 [facility] Comment on above: Performed By: #### T SH, CMP #### [facility] [address] [place] [address] Dr. Volodymyr Paez Neutrophils/100 WBC (Bld) 35.2 % Critically low 43.0-75.0 [facility] Comment on above: Performed By: #### T SH, CMP #### [facility] [address] [place] [address] Dr. Volodymyr Paez Platelet mean volume (Bld) [Entitic vol] 11.4 fL Normal 9.5-13.5 [facility] Comment on above: Performed By: #### T SH, CMP #### [facility] [address] [place] [address] Dr. Volodymyr Paez PLT 96 103/ul Critically low 150-450 [facility] Comment on above: Result Comment: slid e made; no plt clumps seen Performed By: #### T SH, CMP #### [facility] [address] [place] [address] Dr. Volodymyr Paez RBC 4.39 106/ul Normal 4.20-5.40 [facility] Comment on above: Performed By: #### T SH, CMP #### [facility] [address] [place] [address] Dr. Volodymyr Paez WBC 7.6 103/ul Normal 4.0-11.0 [facility] Comment on above: Performed By: #### T SH, CMP #### [facility] [address] [place] [address] Dr. Volodymyr Paez FREE T4on 06-27-2022 Free T4 [Mass/Vol] 1.45 ng/dL Normal 0.76-1.46 [facility] Comment on above: Performed By: #### F T4 #### [facility] [address] [place] [address] Dr. Volodymyr Paez PROF 14(COMP METB)on 023 Albumin [Mass/Vol] 3.2 g/dL Critically low 3.4-5.0 [facility] Comment on above: Performed By: #### T SH, CMP #### [facility] [address] [place] [address] Dr. Volodymyr Paez Albumin/Globulin [Mass ratio] 0.7 {ratio} Normal [facility] Comment on above: Performed By: #### T SH, CMP #### [facility] [address] [place] [address] Dr. Volodymyr Paez ALP [Catalytic activity/Vol] 65 U/L Normal 46-116 [facility] Comment on above: Performed By: #### T SH, CMP #### [facility] [address] [address] [address] Volodymyr Paez ALT [Catalytic activity/Vol] 20 U/L Normal 14-59 [facility] Comment on above: Performed By: #### T SH, CMP #### [facility] [address] [address] [address] Volodymyr Paez Anion gap [Moles/Vol] 11.3 mmol/L Normal [facility] Comment on above: Performed By: #### T SH, CMP #### [facility] [address] [address] [address] Volodymyr Paez AST [Catalytic activity/Vol] 25 U/L Normal 15-37 [facility] Comment on above: Performed By: #### T AKIKO, CMP #### [facility] [address] [place] [address] Dr. Volodymyr Paez Bilirubin [Mass/Vol] 0.3 mg/dL Normal 0.2-1.0 [facility] Comment on above: Performed By: #### T AKIKO, CMP #### [facility] [address] [place] [address] Dr. Volodymyr Paez Calcium [Mass/Vol] 9.5 mg/dL Normal 8.5-10.1 [facility] Comment on above: Performed By: #### T AKIKO, CMP #### [facility] [address] [address] [address] Volodymyr Paez Chloride [Moles/Vol] 100 mmol/L Normal 98-107 [facility] Comment on above: Performed By: #### T AKIKO, CMP #### [facility] [address] [place] [address] Dr. Volodymyr Paez CO2 [Moles/Vol] 30.1 mmol/L Normal 21.0-32.0 [facility] Comment on above: Performed By: #### T AKIKO, CMP #### [facility] [address] [place] [address] Dr. Volodymyr Paez Creatinine [Mass/Vol] 0.92 mg/dL Normal 0.55-1.02 [facility] Comment on above: Performed By: #### T AKIKO, CMP #### [facility] [address] [place] [address] Dr. Volodymyr Paez EGFR-AF TRISTANIAN >60 Normal >=60 [facility] Comment on above: Performed By: #### T AKIKO, CMP #### [facility] [address] [place] [address] Dr. Volodymyr Paez EGFR-NON AF TRISTANIAN >60 Normal >=60 [facility] Comment on above: Performed By: #### T SH, CMP #### [facility] [address] [address] [address] Volodymyr Paez Globulin (S) [Mass/Vol] 4.4 g/dL Normal [facility] Comment on above: Performed By: #### T AKIKO, CMP #### [facility] [address] [place] [address] Dr. Volodymyr Paez Glucose [Mass/Vol] 76 mg/dL Normal 74-106 [facility] Comment on above: Performed By: #### T AKIKO, CMP #### [facility] [address] [place] [address] Dr. Volodymyr Paez Potassium [Moles/Vol] 4.4 mmol/L Normal 3.5-5.1 [facility] Comment on above: Performed By: #### T AKIKO, CMP #### [facility] [address] [place] [address] Dr. Volodymyr Paez Protein [Mass/Vol] 7.6 g/dL Normal 6.4-8.2 [facility] Comment on above: Performed By: #### T AKIKO, CMP #### [facility] [address] [place] [address] Dr. Volodymyr Paez Sodium [Moles/Vol] 137 mmol/L Normal 136-145 [facility] Comment on above: Performed By: #### T AKIKO, CMP #### [facility] [address] [place] [address] Dr. Volodymyr Paez Urea nitrogen [Mass/Vol] 7.0 mg/dL Normal 7.0-18.0 [facility] Comment on above: Performed By: #### T AKIKO, CMP #### [facility] [address] [place], [place] [id number] Dr. Volodymyr Paez Urea nitrogen/Creatinine [Mass ratio] 7.6 mg/mg Normal [facility] Comment on above: Performed By: #### T SH, CMP #### [facility] [address] [address] [address] Volodymyr Paez TSHon 06-27-2022 TSH 0.099 uIU/mL Critically low 0.358-3.740 [facility] Comment on above: Performed By: #### T SH, CMP #### [facility] [address] [address] [address] Volodymyr Paez DEPAKENE/ VALPROIC ACIDon DEPAKENE 72.4 ug/ml Normal 50.0-100.0 [facility] Comment on above: Performed By: #### T , CMP #### [facility] [address] [place] [address] Dr. Volodymyr Paez US THYROIDon 10-25-2021 US [...] screening is still recommended. TR 4: The [employer] TI-RADS committee's white paper recommendations for thyroid lesions classified as TR4 (moderately suspicious) are listed below: > 1.0 cm. Follow-up ultrasound in 1, 2, 3, and 5 years. > 1.5 cm. FNA. J. Am Chidi Radiol 2017;14:587-595. Electronically authenticated by: KRIS MENDOZA Date: 2021-10-25 09:31 Normal [facility] FREE T4on 10-24-2021 Free T4 [Mass/Vol] 1.08 ng/dL Normal 0.76-1.46 [facility] Comment on above: Performed By: #### T SH, CMP #### [facility] [address] [address] [address] Volodymyr Paez TSHon 10-24-2021 TSH 12.719 uIU/mL Critically high 0.358-3.740 [facility] Comment on above: Performed By: #### T SH #### [facility] [address] [address] [address] Volodymyr Paez Vital Signs Date Time Vital Sign Value Performing Clinician Faci lity 03-10-2024 11:19-0500 Body height 165.1 cm Lai Alvarado DPM FACFAS Work Phone: [facility] 03-10-2024 11:19-0500 Body mass index (BMI) [Ratio] 21.3 kg/m2 Lai Alvarado DPM FACFAS Work Phone: [facility] 03-10-2024 11:19-0500 Body weight 58.06 kg Lai Alvarado DPM FACFAS Work Phone: [facility] 03-10-2024 11:19-0500 Diastolic blood pressure 72 mm[Hg] Lai Alvarado DPM FACFAS Work Phone: [facility] 03-10-2024 11:19-0500 Heart rate 88 /min Lai Alvarado DPM FACFAS Work Phone: [facility] 03-10-2024 11:19-0500 Systolic blood pressure 115 mm[Hg] Lai Alvarado DPM FACFAS Work Phone: [facility] 03-02-2024 12:30-0500 Body temperature 98.1 [degF] Elmer Topete DDS Work Phone: [facility] 03-02-2024 12:30-0500 Diastolic blood pressure 73 mm[Hg] Elmer Topete DDS Work Phone: [facility] 03-02-2024 12:30-0500 Heart rate 113 /min Elmer Topete [employer] [facility] 03-02-2024 12:30-0500 Respiratory rate 19 /min Elmer Topete [employer] [facility] 03-02-2024 12:30-0500 SaO2% (BldA) [Mass fraction] 98 % Elmer Topete [employer] [facility] 03-02-2024 12:30-0500 Systolic blood pressure 113 mm[Hg] Elmer Topete [employer] [facility] 03-02-2024 09:11-0500 Body height 162.6 cm Elmer Topete [employer] [facility] 03-02-2024 09:11-0500 Body mass index (BMI) [Ratio] 23.45 kg/m2 Elmer Topete [employer] [facility] 03-02-2024 09:11-0500 Body weight 61.96 kg Elmeredgard Topete [employer] [facility] 02-19-2024 11:00-0400 Body height 162.6 cm Kelly Cabello [facility] 02-19-2024 11:00-0400 Body mass index (BMI) [Ratio] 23.45 kg/m2 Kelly Cabello RN [employer] 02-19-2024 11:00-0400 Body weight 61.96 kg Kelly Cabello RN [employer] 01-21-2024 11:05-0400 Diastolic blood pressure 72 mm[Hg] Radha AMADOR Work Phone: [facility] [employer] 01-21-2024 11:05-0400 Heart rate 92 /min Radha Martinez PA Work Phone: [facility] [employer] 01-21-2024 11:05-0400 Respiratory rate 16 /min Radha AMADOR Work Phone: [facility] [employer] 01-21-2024 11:05-0400 SaO2% (BldA) [Mass fraction] 96 % Radha AMADOR Work Phone: [facility] 01-21-2024 11:05-0400 Systolic blood pressure 118 mm[Hg] Radha AMADOR Work Phone: [facility] Encounters Encounter Date Encounter Type Care Provider Facility Start: 03-10-2024 End: 03-10-2024 Bamboo flowsheet Lai D Dolce DPM FACFAS Work Phone: [facility] Start: 03-10-2024 End: 03-10-2024 Bamboo flowsheet Lai D Dolce DPM FACFAS Work Phone: [facility] Start: 03-10-2024 End: 03-10-2024 ambulatory LAI D DOLCE Not Available Start: 03-10-2024 End: 03-10-2024 Office outpatient new 30 minutes Lai D Dolce DPM FACFAS Work Phone: [facility] Comment on above: Venous insufficiency (chronic) (peripheral) (Primary Dx); Onychomycosis; Pain in right toe(s); Pain in left toe(s); Onychocryptosis Start: 03-02-2024 End: 03-02-2024 Patient encounter procedure Elmer Topete DDS Work Phone: [facility] Start: 03-02-2024 End: 03-02-2024 Subsequent hospital visit by physician Elmer Topete DDS Work Phone: [facility] Start: 03-02-2024 End: 03-02-2024 ambulatory ELMER TOPETE Facility:[facility] Start: 02-26-2024 End: 02-26-2024 Telephone encounter Kelly Cabello RN [facility] Pre-Admission Testing Comment on above: Pre-surgical Evaluat ion (DD adult dental restorations 03/02 under [place] at [place]. PAT completed - anesthesia consent. ZOHRA RN spoke to Mary (nurse), confirmed NPO, [place] address, and 0900 arrival time/) Start: 02-24-2024 End: 02-24-2024 Telephone encounter Ashleigh Kaplan RN [facility] Pre-Admission Testing Comment on above: PAT (Anesthesia cons ent obtained) Start: 02-21-2024 End: 02-21-2024 Telephone encounter Ashleigh Kaplan RN [facility] Pre-Admission Testing Comment on above: PAT (Anesthesia cons ent obtained) Start: 02-19-2024 End: 02-19-2024 Nursing evaluation of patient and report Kelly Cabello RN [facility] Pre-Admission Testing Comment on above: Pre-op evaluation (P rimary Dx) Start: 02-19-2024 End: 02-19-2024 Preprocedural examination done Kelly Cabello RN [facility] Start: 02-19-2024 ambulatory UNKNOWN PROVIDER Facili ty:[facility] Start: 02-19-2024 Encounter for other preprocedural examination UNKNOWN PROVIDER [facility] Start: 02-05-2024 End: 02-05-2024 Patient encounter procedure Refugio Ferrell EXECUTIVE TALENT ACQUISITION CONSULTANT-STOCK PARTS FABRICATOR Work Phone: [facility] Pre-Admission Testing Comment on above: NO SHOW (Primary Dx) Start: 01-21-2024 End: 01-21-2024 Bamboo flowsheet Radha AMADOR Work Phone: [employer] [facility] Start: 01-21-2024 End: 01-21-2024 Bamboo flowsheet Radha AMADOR Work Phone: [employer] [facility] Start: 01-21-2024 End: 01-21-2024 ambulatory RADHA MARTINEZ Not Available Start: 01-21-2024 End: 01-21-2024 Office outpatient visit 15 minutes Radha AMADOR Work Phone: [employer] [facility] Comment on above: Seizure disorder (CM S/HCC) (Primary Dx); Mental deficiency (CMS/HCC); Autism (CMS/HCC); Pseudobulbar affect; Gait instability Start: 12-27-2023 End: 12-27-2023 Admission to same day surgery center Mike Weber DDS Work Phone: [facility] Start: 10-01-2023 End: 10-01-2023 ambulatory RADHA [...] Telephone encounter Martha dill DMD Work Phone: [facility] Comment on above: Dental Start: 04-03-2022 End: 04-04-[address] NATHAN TILLEY Facility:[facility] Start: 03-13-2022 End: 03-18-2022 Patient encounter procedure Martha Coreas DMD Work Phone: [facility] Start: 10-24-2021 End: 10-25-[address] DOCTOR JAVED Facility:[facility] Start: 11-07-2016 End: 11-08-2016 Ambulatory DEFAULT PHYSICIAN Facility:[facility] Procedures Date Procedure Procedure Detail Performing Clinician Start: 03-02-2024 End: 03-02-2024 Urine test visual color cmprsn neos Milton Luna MD Work Phone: Plan of Treatment Date Care Activity Detail Author Start: 2043 Shingles (RZV) Vacci ne (1 of 2) Shingles (RZV) Vaccine (1 of 2) [facility] Start: 06-10-2024 End: 06-10-2024 Patient encounter procedure 06/10/2024 10:30 AM EST Procedure Visit [facility] [address] [place] [address] Lai Alvarado DPM FACFAS [address] [place] [address] [place] [address] [facility] Start: 05-12-2024 End: 05-12-2024 Patient encounter procedure 05/12/2024 11:20 AM EST Office Visit [facility] [address] [place] [address] Radha Martinez PA [address] [place] [address] [facility] Start: 03-02-2024 End: 03-02-2024 Admission to same day surgery center 03/02/2024 9:14 AM EST - 03/02/2024 10:58 AM EST Surgery [facility] [address] [place], [place] [id number] Elmer Topete DDS [address] [id number] DENTAL RESTORATIONS [facility] Surgery Comment on above: DENTAL RESTORATIONS Start: 03-02-2024 End: 03-02-2024 DENTAL RESTORATIONS [facility] Start: 03-02-2024 End: 03-02-2024 Admission to same day surgery center 03/02/2024 7:40 AM EST - 03/02/2024 9:24 AM EST Surgery [facility] Amb[facility] Surgery [address] [place] [address] Elmer Topete DDS [address] [place] [address] DENTAL RESTORATIONS [facility] Surgery Comment on above: DENTAL RESTORATIONS Start: 03-02-2024 End: 03-02-2024 DENTAL RESTORATIONS DENTAL RESTORATIONS Routine scheduled Caries 03/02/2024 7:40 AM EST [facility] Start: 03-02-2024 Subsequent hospital visit by physician [facility] Start: 03-02-2024 End: 03-02-2024 Patient encounter procedure [facility] Start: 02-05-2024 End: 02-05-2024 Patient encounter procedure 02/05/2024 9:15 AM EDT Office Visit [facility] Pre-Admission Testing [address] [place] [address] Refugio Ferrell, EXECUTIVE TALENT ACQUISITION CONSULTANT-STOCK PARTS FABRICATOR [address] [place] [address] [facility] Pre-Admission Testing Start: 01-21-2024 Influenza vaccination Influenza Vacc ine (#[facility]) [facility] Start: 01-21-2024 End: 01-20-2025 Lamotrigine level Lamotrigine level Lab Routine Seizure disorder ([facility]/HCC) Expected: 01/21/2024 (Approximate), Expires: 01/20/2025 [facility] Work Phone: Comment on above: Expected: 01/21/2024 (Approximate), Expires: 01/20/2025 Start: 01-21-2024 End: 01-20-2025 Valproic acid level, total Valproic acid level, total Lab Routine Seizure disorder (CMS/HCC) Expected: 01/21/2024 (Approximate), Expires: 01/20/2025 [facility] Comment on above: Expected: 01/21/2024 (Approximate), Expires: 01/20/2025 Start: 12-22-2023 COVID-19 Vaccine ( season) COVID-19 Vaccine ( season) [facility] Start: 12-22-2023 COVID-19 Vaccine ( season) COVID-19 Vaccine ( season) [facility] Start: 12-22-2023 Influenza vaccination Influenza Vacc ine (#1) [facility] Start: 2023 Screening for malign ant neoplasm of cervix [facility] Start: 01-20-2022 Influenza vaccination Influenza Vacc [...] [facility] Start: 01-02-2008 HIV screening HIV Test [facility] Start: 1993 Medicare Annual Wellness (AWV) Medicare Annual Wellness (AWV) [facility] DENTAL RESTORATIONS DENTAL MEENA RATIONS Routine scheduled Caries [facility] Payers Date Payer Category Payer Dental --Stand Alone DENTAL-MEDI CAID [id number] 2014 Unknown 2013 Medicaid [id number] 2012 Medicare [id number]. [id number] 2012 Medicare FFS MEDICARE [id number] 1993 Unknown [id number] [id number] 32 1993 Unknown [id number] [id number] 32 1993 Unknown [id number] [id number] 32 1993 Unknown [id number] 2.840.1.779829.3.579.2.1 259 1993 Unknown [id number] 2.840.1.028705.3.579.2.1 259 1993 Unknown [id number] 2.16840.1.525869.3.579.2.1 259 1993 Unknown [id number] [id number] 259 1959 Medicaid [id number] 1959 Medicare [id number] 1954 Unknown [id number] [id number] 93 1954 Unknown [id number] [id number] 93 1954 Unknown [id number] [id number] 93 1954 Unknown [id number] 2.16840.1.725308.3.579.2.5 93 1954 Unknown [id number] 2.16840.1.524871.3.579.2.5 93 1954 Unknown [id number] [id number] 93 1954 Unknown [id number] 2.16.840.1.567378.3.579.2.5 93 1954 Unknown [id number] [id number] 93 Social History Date Type Detail Facility Tobacco smoking stat [facility] Tobacco smoking consumption unknown [facility] Start: 1995 Sex Assigned At Not on file [facility] Start: 10-01-2023 End: 03-10-2024 Gender identity Not on file [facility] Start: 08-06-2023 End: 02-19-2024 Tobacco smoking status [facility] Never smoked tobacco [facility] Start: 08-06-2023 End: 02-19-2024 Tobacco use and exposure Smokeless tobacco non-user [facility] Start: 10-01-2023 End: 03-10-2024 Alcoholic beverage intake Lifetime non-drinker (finding) [facility] Start: 10-01-2023 End: 03-10-2024 History of Social function [facility] Start: 07-06-2014 Sex Female (finding) [facility] Clinical Notes 03-13-2022 to 03-10-2024 Lai Alvarado [...] subungual debris. They were painful to palpation 19263 on the right 18754 on the left. VASC: DP /PT were nonpalpable bilateral. Capillary refill time < 3 seconds Digits 1-5 bilateral NEURO: [place] Cecy 5.07 monofilament was intact B/L. Vibratory [...] Alvarado DPM FACFAS documented in this encounter [facility] 03-02-2024 Hospital Discharge instructions Rehana Aguillon RN - 03/02/2024 12:22 PM EST PERIOPERATIVE DISCHARGE/HOME-GOING INSTRUCTIONS ANESTHESIA - GENERAL (ADULT) If a problem arises, you may contact your physician by calling [phone] and asking for the resident visualization developer for Dental service. Special Care Needs: Activity: [...] very uncomfortable and can t urinate, call [phone] or come to the emergency room. A [...] home going instructions. documented in this encounter [facility] 03-02-2024 Miscellaneous Notes Brief Operative Note PHE OR 3 Chantel Ascencio 29 year old female Surgical Contact Serial Number: [id number] Preoperative Diagnosis: Pre-op Diagnosis * Caries [K02.9] Postoperative Diagnosis: * Caries [K02.9] Procedures: Full mouth x-ray [14680] Prophylaxis [54437] Restorations [84544] Floride application [71530] Surgeon(s): Surgeon(s): Elmer Topete DDS Staff: Extraction Machine Operator Nurse: Trudi Padilla Scrap Drop Crane Operator: Paula Contreras DDS; Melquiades Christie DDS Anesthesia: General Anesthesiologist: Milton Luna MD UNISHEAR OPERATOR: Adalgisa Smith APRN-DARSHAN Build And Deployment Engineer: Dayanna Preciado MD Specimen(s): * No specimens [...] were discussed with the patient and/or legal floor representative. The risks, benefits and alternatives were reviewed. Questions regarding blood transfusions were answered. The patient /or the patient s legal floor representative agree with the plan for transfusion of blood and/or blood components. Surgical Case Number Data Unavailable Operating Room Data Unavailable Preoperative Diagnosis(es): Caries [k02.9] Surgeon: Dr. Topete Scanner Operator Surgeon: Melquiades Arias DDS - Paula Contreras [...] the treatment plan included the following: Composite worship on tooth #7 surface ML. [employer] restorations [...] 11:56 AM EST documented in this encounter [facility] 03-02-2024 Surgery Postoperative evaluation and management note Brief Operative Note PHE OR 3 Chantel Ascencio 29 year old female Surgical Contact Serial Number: [id number] Preoperative Diagnosis: Pre-op Diagnosis * Caries [K02.9] Postoperative Diagnosis: * Caries [K02.9] Procedures: Full mouth x-ray [62598] Prophylaxis [57334] Restorations [88615] Floride application [84796] Surgeon(s): Surgeon(s): Elmer Topete DDS Staff: Extraction Machine Operator Nurse: Trudi Padilla Scrap Drop Crane Operator: Paula Contreras DDS; Melquiades Christie DDS Anesthesia: General Anesthesiologist: Milton Luna MD UNISHEAR OPERATOR: Adalgisa Smith APRN-DARSHAN Build And Deployment Engineer: Dayanna Preciado MD Specimen(s): * No specimens [...] Topete DDS at 03/02/2024 11:55 AM EST [facility] 03-02-2024 History and physical note Images from the original note were not included. Surgical History and Physical [facility] Ambulatory Surgery [address] [place] [address] Name: Chantel Ascencio : 1995 29 year old CSN: [id number] Attending: Elmer Topete DDS Date of Admission: 03/02/2024 8:38 AM Room/Bed: [facility] OR/NONE Planned Procedure: Procedure(s): DENTAL RESTORATIONS [...] surgical history indicates: EXTRACTION, TOOTH (09/15/2014) Procedure: Danese teeth; Surgeon: Bradley Goodwin DDS; Location: PERIOPERATIVE [...] or any previous visit (from the past 81366 hours). BMP (last 3 years, up to [...] Topete DDS at 03/02/2024 11:48 AM EST [facility] Work Phone: 03-02-2024 Note Surgical History and Physical [facility] Ambulatory Surgery [address] [place], [place] [address] Name: Chantel Ascencio : 1995 29 year old CSN: [id number] Attending: Elmer Topete DDS Date of Admission: 03/02/2024 8:38 AM Room/Bed: [facility] OR/NONE Planned Procedure: Procedure(s): DENTAL RESTORATIONS [...] surgical history indicates: EXTRACTION, TOOTH (09/15/2014) Procedure: Danese teeth; Surgeon: Bradley Goodwin DDS; Location: PERIOPERATIVE [...] or any previous visit (from the past 70890 hours). BMP (last 3 years, up to [...] Melquiades Stewart DDS 03/02/24 9:38 AM [facility] [employer] [facility] 03-02-2024 History and physical note Surgical [...] Topete DDS at 03/02/2024 11:48 AM EST [facility] [employer] 03-02-2024 Note Surgical Attestation : I have [...] Melquiades Stewart DDS 03/02/2024 9:38 AM [facility] [employer] [facility] 03-02-2024 Progress note Formatting of t his note is different from the original. Blood Attestation: ATTESTATION OF INFORMED CONSENT FOR BLOOD: The transfusion of blood and/or blood components were discussed with the patient and/or legal floor representative. The risks, benefits and alternatives were reviewed. Questions regarding blood transfusions were answered. The patient /or the patient s legal floor representative agree with the plan for transfusion of blood and/or blood components. [employer] Phone: 03-02-2024 History of Present illness Narrative ----- Saturday, March 02, 2024 at 11:38:59 AM ----- ----- Provider: Pradip Rebolledo DDS -- Clinic: [facility] ----- [place] notes, pt is ready for tx [place]. X-Rays look good, few cavities found and confirmed clinically. restos completed. OP Note by Paula Contreras DDS at 03/01/2024 6:14 PM Author: Paula Contreras DDS Service: Dentistry Author Type: Resident Filed: 03/02/2024 11:56 AM Date of Service: 03/01/2024 6:14 PM Note Type: OP Note Status: Cosign Needed Answerer: Paula Contreras DDS (Resident) Cosign Required: Yes Expand All Collapse All Surgical Case Number Data Unavailable Operating Room Data Unavailable Preoperative Diagnosis(es): Caries [k02.9] Surgeon: Dr. Topete Scanner Operator Surgeon: Melquiades Arias DDS - Paula Contreras [...] the treatment plan included the following: Composite worship on tooth #7 surface ML. [employer] restorations [...] ----- Provider: Pradip Rebolledo DDS -- Clinic: [facility] ----- documented in this encounter [facility] 03-01-2024 Surgery Surgical operation note Surgical Case Number Data Unavailable Operating Room Data Unavailable Preoperative Diagnosis(es): Caries [k02.9] Surgeon: Dr. Topete Scanner Operator Surgeon: Melquiades Arias DDS - Paula Contreras [...] the treatment plan included the following: Composite worship on tooth #7 surface ML. [employer]alg[employer] restorations [...] Topete DDS at 03/02/2024 11:56 AM EST [facility] 03-01-2024 Note Surgical Attestation : I have reviewed the patient's History and Physical Examination. I have personally seen and evaluated the patient, repeating cabrera portions. There is no significant interval change. Surgery is still indicated. Yes Consent reviewed and signed by patient/family: Yes Operative site verified and marked: Verified but not marked Paula Contreras DDS 03/01/2024 6:10 PM [facility] Telephone encounter Note Anesthesia consent obtained and scanned into [employer]. Scheduled for surgery 03/02/2024. [facility] 02-24-2024 Miscellaneous Notes Anesthesia consent obtained and scanned into [employer]. Scheduled for surgery 03/02/2024. documented in this encounter [facility] 02-21-2024 Telephone encounter Note Anesthesia consent obtained and scanned into [employer]. Scheduled for surgery 03/02/2024. [facility] 02-21-2024 Miscellaneous Notes Anesthesia consent obtained and scanned into [employer]. Scheduled for surgery 03/02/2024. documented in this encounter [facility] 02-19-2024 Instructions Kelly Cabello RN - 02/19/2024 [...] otherwise contacted. ? Expect a call from [employer] one business day prior to surgery for [...] your Preparing for Your Surgery/Procedure booklet or [email or web address] if you have questions. Contact the Pre-Admission Testing department at [phone] or your surgeon's office with any questions [...] stay with you after surgery. Please call [facility] [employer] if you need transportation assistance or have concerns about going home [phone]. ? PLEASE BE ON TIME. A late arrival may result in the cancellation/ delay of your surgery. Thank you for choosing [facility]; it is our pleasure to care for you documented in this encounter [facility] 02-19-2024 Evaluation note Telephone History Chantel Ascencio, [id number] 02/19/2024 Patient was identified by name and date of via Ivon, caregiver. Needs: Physical, Neck Circumference, BHCG, and ED on DOS. Note: OSH records/labs scanned to media planner. If the patient becomes ill prior to procedure or surgery, they are to call their provider or surgeon's office directly. 29 year old 136.6 lbs 5' 4 Date of Surgery: 03/02 Surgeon: Yoselyn Type of Surgery: DENTAL RESTORATIONS HISTORY OF PRESENT ILLNESS: telephone history for the upcoming surgery at [facility], [address] [place], enter through the west entrance doors. 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 Fluticasone Propionate (FLONASE NASAL) Kennedy into each nostril. Selenium (SELENIMIN ORAL) Take [...] otherwise contacted. ? Expect a call from [employer] one business day prior to surgery for [...] your Preparing for Your Surgery/Procedure booklet or [email or web address] if you have questions. Contact the Pre-Admission Testing department at [phone] or your surgeon's office with any questions [...] stay with you after surgery. Please call [employer] Document Preparation if you need transportation assistance or have concerns about going home [phone]. ? PLEASE BE ON TIME. A late arrival may result in the cancellation/ delay of your surgery. [facility]; it is our pleasure to care for you Kelly Cabello RN Time Spent Performing this Telephone History: 48 with follow-up [facility]: [facility] 02-19-2024 Miscellaneous Notes Telephone History Chantel Ascencio, [id number] 02/19/2024 Patient was identified by name and [...] telephone history for the upcoming surgery at [facility], [address] [place], enter through the east branch entrance doors. STOP-BANG Row Name 02/19/24 [id number] History of sleep apnea? 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 Fluticasone Propionate (FLONASE NASAL) Kennedy into each nostril. Selenium (SELENIMIN ORAL) Take [...] otherwise contacted. ? Expect a call from [employer] one business day prior to surgery for [...] your Preparing for Your Surgery/Procedure booklet or [email or web address] if you have questions. Contact the Pre-Admission Testing department at [phone] or your surgeon's office with any questions [...] stay with you after surgery. Please call [employer] Document Preparation if you need transportation assistance or have concerns about going home [phone]. ? PLEASE BE ON TIME. A late arrival may result in the cancellation/ delay of your surgery. Thank you for choosing [employer]; it is our pleasure to care for you Kelly Cabello RN Time Spent Performing this Telephone History: 48 with follow-up [facility]: documented in this encounter [facility] 02-19-2024 Miscellaneous Notes Telephone History Chantel Ascencio, [id number] 02/19/2024 Patient was identified by name and date of via Ivon, caregiver. Needs: Physical, Neck Circumference, BHCG, and ED on DOS. Note: OSH records/labs scanned to media planner. If the patient becomes ill prior to procedure or surgery, they are to call their provider or surgeon's office directly. 29 year old 136.6 lbs 5' 4 Date of Surgery: 03/02 Surgeon: Yoselyn Type of Surgery: DENTAL RESTORATIONS HISTORY OF PRESENT ILLNESS: telephone history for the upcoming surgery at [facility], [address] [place], enter through the west entrance doors. 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 Fluticasone Propionate (FLONASE NASAL) Kennedy into each nostril. Selenium (SELENIMIN ORAL) Take [...] otherwise contacted. ? Expect a call from [employer] one business day prior to surgery for [...] your Preparing for Your Surgery/Procedure booklet or [email or web address] if you have questions. Contact the Pre-Admission Testing department at [phone] or your surgeon's office with any questions [...] a car, cab, shared ride service, or [employer]-van. You will not be allowed to drive yourself home or travel home alone. Your surgery may be cancelled if you do not have a ride. A responsible adult must stay with you after surgery. Please call [employer] Document Preparation if you need transportation assistance or have concerns about going home [phone]. ? PLEASE BE ON TIME. A late arrival may result in the cancellation/ delay of your surgery. Thank you for choosing [facility]; it is our pleasure to care for you Kelly Cabello RN Time Spent Performing this Telephone History: 48 with follow-up [place] [facility]: documented in this encounter [facility] 10-21-2023 History and physical note Images from the original note were not included. Surgical History and Physical [facility] [address] [address] Name: Chantel Ascencio : 1995 29 year old CSN: [id number] Attending: Elmer Topete DDS Date of Admission: 03/02/2024 8:38 AM Room/Bed: [facility] OR/NONE Planned Procedure: Procedure(s): DENTAL RESTORATIONS [...] surgical history indicates: EXTRACTION, TOOTH (09/15/2014) Procedure: Danese teeth; Surgeon: Bradley Goodwin DDS; Location: PERIOPERATIVE [...] or any previous visit (from the past 43120 hours). BMP (last 3 years, up to [...] 11:48 AM EST documented in this encounter [facility] 04-30-2022 Miscellaneous Notes Bina from [facility] calling in. She wanted to know where the pt was at on the OR wait list. E-mail sent to Connie E-mail sent 04/30/22 documented in this encounter [facility] 04-30-2022 Telephone encounter Note Bina from [facility] calling in. She wanted to know where the pt was at on the OR wait list. E-mail sent to Connie E-mail sent 04/30/22 [facility] 03-13-2022 History of Present illness Narrative ----- Sunday, March 13, 2022 at 11:58:40 AM ----- ----- Provider: [id number] Coreas DMD -- Clinic: [facility] ----- OR EVALUATION Patient presents for evaluation [...] time slot becomes available. Legal Guardian: Toshia sAcencio Phone #: [phone] NOTE: Patient had a hard time leaning her head back, but allowed me to look. Patient not indicating she is in any pain. #8 is very discolored - most likely will need RCT treatment. Gingiva very red and irritated. Caregiver did not know who patient's guardian was or contact information, looked it up in [facility]. Next Visit: OR documented in [...] DENTOALVEOLAR STRUCTURES DENTAL RESTORATIONS Elmer Topete, DDS [address] [place] [address] Phone: tel: fax: [place] [employer] [place] [address] Phone: tel: Referral ID Status Reason Start Date Expiration Date Visits Re quested Visits Authorized [id number] 3 [facility] Summary Purpose Family History No [...] Caries Elmer Topete, DDS [address] [place] [address] [facility] PRE ADMISSION TESTING [address] [place] [address] Referral ID Status Reason Start Date Expiration Date V isits Requested Visits Authorized [id number] Authorized 12/27/2023 12/26/2024 1 1 Scheduling Instructions Your surgical team will reach out to you to schedule a pre-admission testing appointment. Question Answer Reason for consult? Recommended PAT Risk Score Additional Source Comments INFORMATION SOURCE (unrecogn ized section and content) DATE CREATED AUTHOR 10/16/2017 [facility] DATE CREATED AUTHOR AUTHOR'S ORGANIZ ATION 09/02/2022 [facility] DATE CREATED AUTHOR AUTHOR'S ORGANIZ ATION 03/10/2024 [facility] DATE CREATED AUTHOR AUTHOR'S ORGANIZ ATION 03/12/2024 [facility] EPIC Reason for Visit (unrecogniz ed section and content) Reason Onset Date Comments Dental 04/30/2022 Reason Comments Seizures Reason Onset Date Comments PAT 02/21/2024 Anesthesia conse nt obtained Reason Onset Date Comments PAT 02/24/2024 Anesthesia conse nt obtained Reason Onset Date Comments Pre-surgical Evaluation 02/26/2024 DD adult dental restorations 03/02 under [place] at [place]. PAT completed - anesthesia consent. ZOHRA RN spoke to Mary (nurse), confirmed [facility], [place] address, and 0900 arrival time Reason Comments Toenail Problem RT grt nail fungal Care Teams (unrecognized sec tion and content) Gallery [employer] Museum Attendant Relationship Specialty Start Date End Date Unallocated, [place] Provider, [address] [place], [place] [id number] PCP - General Family Medicine 07/09/23 Kris Mcguire MD [address] [place] [address] Referring Physician Neurology 07/09/23 [employer] Museum Attendant Relationship Specialty Start Date End Date Unallocated, May Schneider MD [address] [place] [address] [place] [address] PCP - General Family Medicine 07/09/23 Kris Mcguire MD [address] [place] [id number] Referring Physician Neurology 07/09/23 Gallery [employer] Museum Attendant Relationship Specialty Start Date End Date Nathan Tilley MD [address] [place] [address] PCP - General Family Medicine 03/10/24 Kris Mcguire MD [address] [place] [id number] Referring Physician Neurology 07/09/23 Gallery [employer] Museum Attendant Relationship Specialty Start Date End Date Nathan Tilley MD [address] [place] [address] PCP - General Family Medicine 03/10/24 Kris Mcguire MD [address] [place] [address] Referring Physician Neurology 07/09/23 PRN Active and [...] BE BASED ON THE PRIMARY CLINICAL RECORDS. [employer] provides no warranty or guarantee of the accuracy or completeness of information in this document.
[2024-05-29 08:01] LABS: Thyroid Stimulating Hormone 0.054 uIU/mL (0.358-3.740)
[2024-05-29 08:05] LABS: Free T4 1.07 ng/dL (0.76-1.46)
== END 2024-05-29 06:38 | disposition home or self-care (01) ==
LOC: LAB 06:38
PROVIDERS: PCP Family Medicine; Visit Provider Family Medicine
DX: E03.9 Hypothyroidism, unspecified (principal)
CPT/HCPCS: 36415; 84439; 84443

== ENCOUNTER 2024-06-05 06:48 | Outpatient (OUT) | payer MEDICARE, MEDICAID, SELFPAY ==
--- OUTSIDE RECORDS SUMMARY | 2024-06-05 06:52 | XMS_ITS | CCD ---
Author Organization [facility]iniSy[facility] Care Team Providers Care Parts Assembler Name Role Phone PHYSICIAN, DEFAULT Unavailable Unavailable [...] Primary Care Provider Unavailabl e Andersonlocated , Frank Provider Primary Care Provi roselyn Kris Mcguire MD Unavailable Andersonlocated Frank OLSON Provider Primary Care Provi roselyn ELMER TOPETE Attending Unavailable PROVIDER, UNKNOWN Admitting Unavailable PROVIDER, UNKNOWN Admitting Unavailable PROVIDER, UNKNOWN Attending Unavailable ELMER TOPETE Admitting Unavailable ELMER TOPETE Attending Unavailable Nathan Tilley MD Primary Care Provider [phone] RADHA MARTINEZ Attending Unavailable RADHA MARTINEZ Attending Unavailable RADHA MARTINEZ Attending Unavailable LAI ALVARADO Attending Unavailable Allergies Allergy Classification Reported Allergen(s) Allergy Type Date of Onset Reaction(s) Facility (20 sources) Ethosuximide; Translations: [ETHOSUXIMIDE] Drug Allergy 09-15-2014 [facility] (1 source) Allopurinol Drug Allergy 07-16-2013 [facility] (1 source) Ethosuximide Drug Allergy 07-16-2013 [facility] (11 sources) linaclotide; Translations: [LINACLOTIDE] Drug Allergy 08-06-2023 [facility] Medications Current Medications Medication Drug Class(es) Dates Sig (Normalized) Sig (Original) acetaminophen 325 mg oral capsule (7 sources) Acetaminophen (Tylenol) 325 MG CAPS Take by mouth. Active busPIRone hydrochloride 30 mg oral tablet (14 sources) take 1 tablet by mouth in [...] Active cloNIDine hydrochloride 0.2 mg oral tablet (19 sources) Central alpha-2 Adrenergic Agonist cloNIDine (Catapres) [...] / norethindrone acetate 1 mg oral tablet (14 sources) Estrogen norethindrone-et hiny l estradiol (Ortho-Novum, Nortrel) 1-35 MG-MCG tablet Take 1 tablet by mouth Daily Active famotidine 40 mg oral tablet (14 sources) Histamine-2 Receptor Antagonist take 1 tablet by mouth once daily famotidine (Pepcid) 40 MG tablet Take 40 mg by mouth Daily Active fluticasone (12 sources) Corticosteroid Fluticasone Propionate (FLONASE NASAL) [place] into each nostril. Suspended Fluticasone Prop ionate (FLONASE NASAL) [place] into each nostril. Active Fluticasone Prop ionate (FLONASE NASAL) [place] into each nostril. 0 Active guanFACINE 2 mg oral tablet (14 sources) Central alpha-2 Adrenergic Agonist take 1 [...] Active ammonium lactate 120 mg/ml topical cream (7 sources) ammonium lactate (Amlactin) 12 % cream Apply 2 application topically Daily Active lactobacillus acidophilus 16 mg oral capsule (12 sources) Lactobacillus (ACIDOPHILUS) CAPS Take by mouth. Active lamoTRIgine 100 mg oral tablet (20 sources) Mood Stabilizer, Anti-epileptic Agent take 1 tablet by mouth at bedtime lamoTRIgine (LaMICtal) 100 MG tablet Take 100 mg by mouth at bedtime Active take 1 tablet by mouth in the mo rning lamoTRIgine (LaMICtal) 150 MG tablet Take 150 mg by mouth in the morning. Active levothyroxine sodium 0.2 mg oral tablet (16 sources) l-Thyroxine take 1 tablet by mouth before mealtime levothyroxine (Synthroid, Levoxyl) 200 MCG tablet Take 200 mcg by mouth in the morning. Take before meals. Active take 1 tablet by mouth before me altime levothyroxine (Synthroid, Levoxyl) 25 MCG tablet Take 25 mcg by mouth in the morning. Take before meals. Active take 1 tablet by mouth before me altime levothyroxine (Synthroid, Levoxyl) 175 MCG tablet Take 175 mcg by mouth in the morning. Take before meals. Active loratadine 10 mg oral tablet (14 sources) take 1 tablet by luly th once daily loratadine (Claritin) 10 MG tablet Take 10 mg by mouth Daily Active melatonin 3 mg disintegratin g oral tablet (14 sources) take 1 tablet by luly th [...] paliperidone 3 mg extended release oral tablet (14 sources) Atypical Antipsychotic take 1 tablet by [...] by mouth daily. Active polyethylene glycol 3350 41943 mg powder for oral solution (14 sources) Osmotic Laxative take 17 g by mouth once daily polyethylene glycol, PEG, 3350 (Miralax) 17 g packet Take 17 g by mouth Daily Active QUEtiapine 200 mg oral tablet (20 sources) Atypical Antipsychotic take 1 tablet by [...] ORAL) Take by mouth. 0 Active sennosides, snf 15 mg oral tablet (12 sources) take [...] sodium 125 mg delayed release oral tablet (20 sources) Mood Stabilizer, Anti-epileptic Agent take 4 [...] 0.4 mg, Intravenous Push, PRN, Starting on 03/02/24 at 0937, Until Discontinued, Respiratory Rate Less [...] Problem Date Documented Date Episodic/Chronic Anxiety disorders (8 sources) Anxiety disorder; Translations: [Anxiety disorder, unspecified] Onset: 09-03-2017 08-06-2023 Chronic Delirium, dementia, and amnestic and other cognitive disorders (10 sources) Pseudobulbar affect; Translations: [Pseudobulbar affect] Onset: 08-06-2023 08-06-2023 Chronic Developmental disorders (10 sources) Intellectual disability; Translations: [Unspecified intellectual disabilities] Onset: 01-15-2024 01-15-2024 Chronic Disorders usually diagnosed in infancy, childhood, or adolescence (12 sources) Autism spectrum disorder; Translations: [Autistic disorder] Onset: 09-03-2017 08-06-2023 Chronic E Codes: Fall (1 source) Fall on same level from slipping, tripping and stumbling with subsequent striking against unspecified object, initial encounter; Translations: [FALL SAME LVL SLIP STRK UNS OBJ INT] Onset: 07-23-2022 Episodic Epilepsy; convulsions (17 sources) Epilepsy, unspecified, not intractable, without status [...] 07-21-2022 Episodic Other aftercare (5 sources) Other fpc (current) drug therapy; Translations: [OTH USP CURRENT DRUG THERAPY] Onset: 04-03-2022 Episodic Other connective tissue disease (2 sources) Pain of toe of right foot; Translations: [Pain in right toe(s)] 03-10-2024 Episodic Other connective tissue disease (2 sources) Pain of toe of left foot; Translations: [Pain in left toe(s)] 03-10-2024 Episodic Other diseases of veins and lymphatics (2 sources) Peripheral venous insufficiency; Translations: [Venous insufficiency (chronic) (peripheral)] 03-10-2024 Episodic Other nervous system disorders (12 sources) Abnormal gait; Translations: [Unsteadiness on feet] Onset: 08-06-2023 01-15-2024 Episodic Other nutritional; endocrine; and metabolic disorders (2 sources) Developmental delay; Translations: [Unspecified lack of expected normal physiological development in childhood] 06-03-2024 Episodic Other skin disorders (2 sources) Ingrowing [...] Episodic/Chronic Conditions associated with dizziness or vertigo (8 sources) Dizziness; Translations: [Dizziness and giddiness] Onset: 07-03-2018 08-06-2023 Episodic Disorders of teeth and jaw (12 sources) Dental caries; Translations: [Dental caries, unspecified] Onset: 12-27-2023 Resolved: 03-02-2024 12-27-2023 Episodic Residual codes; unclassified (8 sources) Personal history of other specified conditions; Translations: [Personal history of other specified diseases] Onset: 09-03-2017 08-06-2023 Episodic Results Test Name Value Interpretation Reference Range Facility Anesthesia Postprocedure Estelle carusobeau 03-02-2024 Experimental Flight Test Mechanic Authentication Interface Message Text Anesthesia Postoperative Assessment: [...] EVENTS: No notable events documented. 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 Scheduled for surgery 03/02/2024. ) Questions answered / anesthesia plan accepted ( Anesthesia consent obtained and scanned into Mydish. Scheduled for surgery 03/02/2024. ) Past medical history, surgical history, allergies, and medications reviewed. Pertinent laboratory tests, EKG, imaging, and consults reviewed and I have personally seen and evaluated the patient, repeating cabrera portions of the history and physical examination. Attestation: Anesthesia options were discussed with the patient and/or legal chemical sales representative. The risks, benefits and alternatives were reviewed. Questions regarding anesthesia were answered. Patient and/or legal chemical sales representative knows such anesthetics and procedures may be performed by Resident physicians, Certified Anesthesiologist Assistants, or Certified Nurse Anesthetists under the supervision of a physician. The patient /or the patient's legal chemical sales representative agree with the plan for anesthesia. Comment: Anesthesia consent obtained and scanned into Mydish. Scheduled for surgery 03/02/2024. MHPATFORM Normal [facility] Anesthesia Transfer Of Careo n 03-02-2024 Experimental Flight Test Mechanic Authentication Interface Message Text Patient taken to [...] surgical history indicates: EXTRACTION, TOOTH (09/15/2014) Procedure: [place] teeth; Surgeon: Bradley Goodwin DDS; Location: PERIOPERATIVE SERVICES; Service: Oral EUA, ORAL (09/15/2014) Procedure: EUA, ORAL; Surgeon: Bradley Goodwin DDS; Location: PERIOPERATIVE SERVICES; Service: Oral Allergies: Linzess [linaclotide] and Zarontin [ethosuximide] Basic Operating Room Facts: Surgeon(s): Elmer Topete DDS Anesthesiologist: Milton Luna MD ANALYTICAL LABORATORY TECHNICIAN: Adalgisa Smith APRN-DARSHAN Supervisor Record Press: Dayanna Preciado MD DENTAL RESTORATIONS (Right: Mouth) [...] of the report was received. Adalgisa Smith, WARP HAULER-ANALYTICAL LABORATORY TECHNICIAN Normal [facility] Blood Attestationon 03-02-20 Experimental [employer] Test Mechanic Authentication Interface Message Text Blood Attestation: ATTESTATION OF INFORMED CONSENT FOR BLOOD: The transfusion of blood and/or blood components were discussed with the patient and/or legal chemical sales representative. The risks, benefits and alternatives were reviewed. Questions regarding blood transfusions were answered. The patient /or the patient's legal chemical sales representative agree with the plan for transfusion of blood and/or blood components. Normal [facility] Brief Operative Noteon 03-02 Experimental Flight Test Mechanic Authentication Interface Message Text Brief Operative Note [facility] OR 3 Chantel Ascencio 29 year old female Surgical Contact Serial Number: [id number] Preoperative Diagnosis: Pre-op Diagnosis * Caries [K02.9] Postoperative Diagnosis: * Caries [K02.9] Procedures: Full mouth x-ray [85486] Prophylaxis [57564] Restorations [91055] Floride application [01322] Surgeon(s): Surgeon(s): Elmer Topete DDS Staff: Retail Shift Leader Nurse: Trudi Padilla Field Talent Qualification Specialist: Paula Contreras DDS; Melquiades Christie DDS Anesthesia: General Anesthesiologist: Milton Luna MD ANALYTICAL LABORATORY TECHNICIAN: Adalgisa Smith APRN-DARSHAN Supervisor Record Press: Dayanna Preciado MD Specimen(s): * No specimens [...] Contreras DDS 03/02/2024 11:48 AM Normal [facility] Progress Noteson 03-02-2024 Experimental Flight Test Mechanic Authentication Interface Message Text ----- Saturday, March 02, 2024 at 11:38:59 AM ----- ----- Provider: [id number] - Elmer Rebolledo DDS -- Clinic: [facility] ----- [place] notes, pt is ready for tx [place]. X-Rays look good, few cavities found and confirmed clinically. restos completed. OP Note by Paula Contreras DDS at 03/01/2024 6:14 PM Author: Paula Contreras DDS Service: Dentistry Author Type: Resident Filed: 03/02/2024 11:56 AM Date of Service: 03/01/2024 6:14 PM Note Type: OP Note Status: Cosign Needed Refrigerating Machine Operator: Paula Contreras DDS (Resident) Cosign Required: Yes Expand All Collapse All Surgical Case Number Data Unavailable Operating Room Data Unavailable Preoperative Diagnosis(es): Caries [k02.9] Surgeon: Dr. Topete Tissue Rewinder Surgeon: Melquiades Arias DDS - Paula Contreras [...] the treatment plan included the following: Composite holiness on tooth #7 surface ML. Amalgam restorations [...] 2024 at 11:57:17 AM ----- ----- Provider: [id number] - Elmer Rebolledo DDS -- Clinic: [facility] [...] [facility]on 03-01-2024 Experimental Flight Test Mechanic Authentication Interface Message Text Surgical Case Number Data Unavailable Operating Room Data Unavailable Preoperative Diagnosis(es): Caries [k02.9] Surgeon: Dr. Topete Tissue Rewinder Surgeon: Melquiades Arias DDS - Paula Contreras [...] the treatment plan included the following: Composite holiness on tooth #7 surface ML. Amalgam restorations [...] Contreras DDS 03/01/2024 6:15 PM Normal [facility] Telephone Encounteron 2023 Experimental Flight Test Mechanic Authentication Interface Message Text Anesthesia consent obtained and scanned into Mydish. Scheduled for surgery 03/02/2024. Normal [facility] Telephone Encounteron 2023 Experimental Flight Test Mechanic Authentication Interface Message Text Anesthesia consent obtained and scanned into Mydish. Scheduled for surgery 03/02/2024. Normal [facility] PAT Call Historyon Experimental Flight Test Mechanic Authentication Interface Message Text Telephone History Chantel Ascencio, [id number] 02/19/2024 Patient was identified by name and date of via Ivon, caregiver. Needs: Physical, Neck Circumference, BHCG, and ED on DOS. Note: OSH records/labs scanned to social media project manager. If the patient becomes ill prior to procedure or surgery, they are to call their provider or surgeon's office directly. 29 year old 136.6 lbs 5' 4 Date of Surgery: 03/02 Surgeon: Yoselyn Type of Surgery: DENTAL RESTORATIONS HISTORY OF PRESENT ILLNESS: telephone history for the upcoming surgery at [facility], [address] [place], [facility] through [facility]. 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 norethindrone-ethin yl estradiol (Nortrel 1, 21,) 1-35 MG-MCG tablet Take 1 Tablet [...] Take by mouth. Fluticasone Propionate (FLONASE NASAL) [place] into each nostril. Selenium (SELENIMIN ORAL) Take by mouth. Sennosides (SENNA) 15 MG tablet Take 1 Tab by mouth daily as needed for Constipation. topiramate (TOPIRAGEN) 25 MG tablet Take 75 mg by mouth 2 times daily (more content not included)... Normal [facility] Progress Noteson 02-17-2024 Experimental Flight Test Mechanic Authentication Interface Message Text Patient PAT has be rescheduled for 02/19/2024--for OR visit 03/02/2024----- Saturday, February 17, 2024 at 10:10:00 AM ----- ----- Provider: Justine Awad-Date Night Caregiver -- Clinic: [place] ----- Normal [facility] Progress Noteson 02-05-2024 Experimental Flight Test Mechanic Authentication Interface Message Text Patient was no show for PAT today at [place] there surgery is scheduled 03/02-Contact Concetta figueroa --advised if PAT needs to reschedule or patient will be removed from OR----- Monday, February 05, 2024 at 4:24:04 PM ----- ----- Provider: LESLIE [facility]-Date Night Caregiver -- Clinic: [place] ----- Normal [facility] Progress Noteson 01-08-2024 Experimental Flight Test Mechanic Authentication Interface Message Text Parent/guardian/pat ient was contacted for PAT AND OR Sedation scheduled -- confirmed information with patient, also informed mom importance of going to PAT appointment -- if missed, IV Sedation will be cancelled, and you will be placed back on wait list 03/02/24----- Monday, January 08, 2024 at 2:14:12 PM ----- ----- Provider: LESLIE [facility]-Date Night Caregiver -- Clinic: [place] ----- Normal [facility] Progress Noteson 12-30-2023 Experimental Flight Test Mechanic Authentication Interface Message Text Attempted to contact patient/ parent / guardian at telephone number listed -- no answer, left voicemail message requesting a return call.----- Saturday, December 30, 2023 at 2:26:35 PM ----- ----- Provider: LESLIE [facility]-Date Night Caregiver -- Clinic: [place] ----- Normal [facility] FREE T4on 08-29-2022 Free T4 [Mass/Vol] 1.76 ng/dL Critically high 0.76-1.46 [facility] Comment on above: Performed By: #### F T4 #### [facility] [address] [address] [address] Volodymyr Paez TSHon 08-29-2022 TSH Qn m[IU]/L Critically low 0.358-3.740 [facility] Comment on above: Performed By: #### T SH #### [facility] [address] [address] [address] Volodymyr Paez CULTURE URINEon 08-24-2022 CULTURE [...] S F Tetracycline >=16 R F Normal [facility] Comment on above: Performed By: #### T SH, CMP #### [facility] [address] [place] [address] Dr. Volodymyr Paez UA (CLEAN/CATCH) COLLECTOR OF PORT/MICRO I F IND.on 08-21-2022 Bilirubin Ql (U) Negative Normal NEGATIVE [facility] Comment on above: Performed By: #### U ACSIND, UMICRO #### [facility] [address] [place] [address] Dr. Volodymyr Paez Clarity (U) CLEAR Normal CLEAR [facility] Comment on above: Performed By: #### U ACSIND, UMICRO #### [facility] [address] [place] [address] Dr. Volodymyr Paez Color (U) LT. YELLOW Normal YELLOW [facility] Comment on above: Performed By: #### U ACSIND, UMICRO #### [facility] [address] [place] [address] Dr. Volodymyr Paez Glucose Ql (U) Negative Normal NEGATIVE [facility] Comment on above: Performed By: #### U ACSIND, UMICRO #### [facility] [address] [place] [address] Dr. Volodymyr Paez Hemoglobin Ql (U) Negative Normal NEGATIVE [facility] Comment on above: Performed By: #### U ACSIND, UMICRO #### [facility] [address] [place] [address] Dr. Volodymyr Paez Ketones Ql (U) Negative Normal NEGATIVE [facility] Comment on above: Performed By: #### U ACSIND, UMICRO #### [facility] [address] [place] [address] Dr. Volodymyr Paez LEUKOCYTES SMALL Abnormal NEGATIVE [facility] Comment on above: Performed By: #### U ACSSHAHEEN UMICRO #### [facility] [address] [place] [address] Dr. Volodymyr Paez Nitrite Ql (U) Negative Normal NEGATIVE [facility] Comment on above: Performed By: #### U ACSSHAHEEN UMICRO #### [facility] [address] [place] [address] Dr. Volodymyr Paez pH (U) 7.0 [pH] Normal 5-9 [facility] Comment on above: Performed By: #### U VIDYA GAMEZICRO #### [facility] [address] [place] [address] Dr. Volodymyr Paez SPEC GRAVITY 1.020 Normal 1.005-<=1.025 The [facility] Comment on above: Performed By: #### U VIDYA GAMEZICRO #### [facility] [address] [place] [address] Dr. Volodymyr Paez UA PROTEIN Negative Normal NEGATIVE/ TRACE [facility] Comment on above: Performed By: #### U VIDYA GAMEZICRO #### [facility] [address] [place] [address] Dr. Volodymyr Paez UR MICRO IND INDICATED Normal [facility] Comment on above: Performed By: #### U VIDYA GAMEZICRO #### [facility] [address] [place] [address] Dr. Volodymyr Paez Urobilinogen Qn (U) 0.2 {Leta'U}/dL Normal 0.2 - 1. 0 [facility] Comment on above: Performed By: #### U VERA UMICRO #### [facility] [address] [place] [address] Dr. Volodymyr Paez URINE MICROSCOPIC ONLYon BACTERIA SMALL Abnormal NONE SEEN [facility] Comment on above: Performed By: #### U ACSSHAHEEN UMICRO #### [facility] [address] [place] [address] Dr. Volodymyr Paez Bacteria identified Cx Nom (U) INDICATED Normal [facility] Comment on above: Performed By: #### U ACSIND, UMICRO #### [facility] [address] [place] [address] Dr. Volodymyr Paez CAST NONE SEEN Normal NONE SEEN [facility] Comment on above: Performed By: #### U ACSIND, UMICRO #### [facility] [address] [place] [address] Dr. Volodymyr Paez Crystals LM Nom (Urine sed) NONE SEEN Normal NONE SEEN [facility] Comment on above: Performed By: #### U ACSIND, UMICRO #### [facility] [address] [place] [address] Dr. Volodymyr Paez Epithelial cells LM Ql (Urine sed) MODERATE Abnormal NONE SEEN /RARE [facility] Comment on above: Performed By: #### U ACSIND, UMICRO #### [facility] [address] [place] [address] Dr. Volodymyr Paez MUCOUS TRACE Abnormal NONE SEEN [facility] Comment on above: Performed By: #### U ACSIND, UMICRO #### [facility] [address] [place] [address] Dr. Volodymyr Paez RBC 2-5 Abnormal 0-2 [facility] Comment on above: Performed By: #### U ACSIND, UMICRO #### [facility] [address] [place] [address] Dr. Volodymyr Paez WBC 10-20 Abnormal NONE SEEN [facility] Comment on above: Performed By: #### U ACSIND, UMICRO #### [facility] [address] [place] [address] Dr. Volodymyr Paez LAMOTRIGINEon 08-13-2022 Lamotrigine, Serum 11.2 ug/mL Normal 2.0-20.0 The [facility] Comment on above: Result Comment: Dete ction Limit = 1.0 Performed By: #### T SH, CMP #### [facility] [address] [place] [address] Dr. Volodymyr Paez CBC AUTO DIFFon 08-09-2022 BASO # 0.0 103/ul Normal 0.0-0.1 [facility] Comment on above: Performed By: #### C BC #### [facility] [address] [place] [address] Dr. Volodymyr Paez Basophils/100 WBC (Bld) 0.4 % Normal 0.2-2.0 [facility] Comment on above: Performed By: #### C BC #### [facility] [address] [place] [address] Dr. Volodymyr Paez EO # 0.4 103/ul Normal 0.0-0.7 [facility] Comment on above: Performed By: #### C BC #### [facility] [address] [place] [address] Dr. Volodymyr Paez Eosinophils/100 WBC (Bld) 4.3 % Normal 0.9-7.0 [facility] Comment on above: Performed By: #### C BC #### [facility] [address] [place] [address] Dr. Volodymyr Paez Erythrocyte distribution width (RBC) [Ratio] 13.2 % Normal 11.0-15.0 [facility] Comment on above: Performed By: #### C BC #### [facility] [address] [place] [address] Dr. Volodymyr Paez Hematocrit (Bld) [Volume fraction] 40.2 % Normal 36.0-48.0 [facility] Comment on above: Performed By: #### C BC #### [facility] [address] [place] [address] Dr. Volodymyr Paez Hemoglobin (Bld) [Mass/Vol] 13.8 g/dL Normal 12.0-16.0 [facility] Comment on above: Performed By: #### C BC #### [facility] [address] [place] [address] Dr. Volodymyr Paez IG # 0.02 10e3/ul Normal 0.00-0.03 [facility] Comment on above: Performed By: #### C BC #### [facility] [address] [place] [address] Dr. Volodymyr Paez IG % 0.2 % Normal 0.0-0.5 [facility] Comment on above: Performed By: #### C BC #### [facility] [address] [place] [address] Dr. Volodymyr Paez LYMPH # 4.3 103/ul Critically high 1.2-3.8 [facility] Comment on above: Performed By: #### C BC #### [facility] [address] [place] [address] Dr. Volodymyr Paez Lymphocytes/100 WBC (Bld) 51.8 % Normal 20.5-60.0 [facility] Comment on above: Performed By: #### C BC #### [facility] [address] [place] [address] Dr. Volodymyr Paez MANUAL DIFF REQ NO Normal [facility] Comment on above: Performed By: #### C BC #### [facility] [address] [place] [address] Dr. Volodymyr Peaz MCH (RBC) [Entitic mass] 31.0 pg Normal 26.7-34.0 [facility] Comment on above: Performed By: #### C BC #### [facility] [address] [place] [address] Dr. Volodymyr Paez MCHC (RBC) [Mass/Vol] 34.3 g/dL Normal 29.9-35.2 [facility] Comment on above: Performed By: #### C BC #### [facility] [address] [place] [address] Dr. Volodymyr Paez MCV (RBC) [Entitic vol] 90.3 fL Normal 81.0-99.0 [facility] Comment on above: Performed By: #### C BC #### [facility] [address] [place] [address] Dr. Volodymyr Paez MONO # 0.9 103/ul Critically high 0.3-0.8 [facility] Comment on above: Performed By: #### C BC #### [facility] [address] [place] [address] Dr. Volodymyr Paez Monocytes/100 WBC (Bld) 10.4 % Normal 1.7-12.0 [facility] Comment on above: Performed By: #### C BC #### [facility] [address] [place] [address] Dr. Volodymyr Paez NEUT # 2.7 103/ul Normal 1.4-6.5 [facility] Comment on above: Performed By: #### C BC #### [facility] [address] [place] [address] Dr. Volodymyr Paez Neutrophils/100 WBC (Bld) 32.9 % Critically low 43.0-75.0 [facility] Comment on above: Performed By: #### C BC #### [facility] [address] [place] [address] Dr. Volodymyr Paez Platelet mean volume (Bld) [Entitic vol] 10.3 fL Normal 9.5-13.5 [facility] Comment on above: Performed By: #### C BC #### [facility] [address] [place] [address] Dr. Volodymyr Paez PLT 231 103/ul Normal 150-450 [facility] Comment on above: Performed By: #### C BC #### [facility] [address] [place] [address] Dr. Volodymyr Paez RBC 4.45 106/ul Normal 4.20-5.40 [facility] Comment on above: Performed By: #### C BC #### [facility] [address] [place] [address] Dr. Volodymyr Paez WBC 8.2 103/ul Normal 4.0-11.0 [facility] Comment on above: Performed By: #### C BC #### [facility] [address] [place] [address] Dr. Volodymyr Paez DEPAKENE/ VALPROIC ACIDon DEPAKENE 80.3 ug/ml Normal 50.0-100.0 [facility] Comment on above: Performed By: #### V ALP #### [facility] [address] [place] [address] Dr. Volodymyr Paez US THYROIDon 07-10-2022 US [...] 6 mm. No follow-up required TI-RADS: The [employer] TI-RADS committee's white paper recommendations for thyroid lesions classified as TR4 (moderately suspicious) are listed below: > 1.0 cm. Follow-up ultrasound in 1, 2, 3, and 5 years. > 1.5 cm. FNA. J. Am Chidi Radiol 2017;14:587-595. Electronically authenticated by: MATILDE WATERMAN Date: 2022-07-10 13:01 Normal [facility] LAMOTRIGINEon 06-29-2022 Lamotrigine, Serum 14.2 ug/mL Normal 2.0-20.0 [facility] Comment on above: Result Comment: Dete ction Limit = 1.0 Performed By: #### T AKIKO, CMP #### [facility] [address] [place] [address] Dr. Volodymyr Paez CBC AUTO DIFFon 06-27-2022 BASO # 0.1 103/ul Normal 0.0-0.1 [facility] Comment on above: Performed By: #### T AKIKO, CMP #### [facility] [address] [address] [address] Volodymyr Paez Basophils/100 WBC (Bld) 0.7 % Normal 0.2-2.0 [facility] Comment on above: Performed By: #### T AKIKO, CMP #### [facility] [address] [address] [address] Volodymyr Paez EO # 0.4 103/ul Normal 0.0-0.7 [facility] Comment on above: Performed By: #### T SH, CMP #### [facility] [address] [place] [address] Dr. Volodymyr Paez Eosinophils/100 WBC (Bld) 5.1 % Normal 0.9-7.0 [facility] Comment on above: Performed By: #### T SH, CMP #### [facility] [address] [place] [address] Dr. Volodymyr Paez Erythrocyte distribution width (RBC) [Ratio] 13.1 % Normal 11.0-15.0 [facility] Comment on above: Performed By: #### T SH, CMP #### [facility] [address] [place] [address] Dr. Volodymyr Paez Hematocrit (Bld) [Volume fraction] 39.7 % Normal 36.0-48.0 [facility] Comment on above: Performed By: #### T AKIKO, CMP #### [facility] [address] [place] [address] Dr. Volodymyr Paez Hemoglobin (Bld) [Mass/Vol] 13.3 g/dL Normal 12.0-16.0 [facility] Comment on above: Performed By: #### T SH, CMP #### [facility] [address] [place] [address] Dr. Volodymyr Paez IG # 0.02 10e3/ul Normal 0.00-0.03 [facility] Comment on above: Performed By: #### T AKIKO, CMP #### [facility] [address] [place] [address] Dr. Volodymyr Paez IG % 0.3 % Normal 0.0-0.5 [facility] Comment on above: Performed By: #### T SH, CMP #### [facility] [address] [place] [address] Dr. Volodymyr Paez LYMPH # 3.6 103/ul Normal 1.2-3.8 [facility] Comment on above: Performed By: #### T SH, CMP #### [facility] [address] [place] [address] Dr. Volodymyr Paez Lymphocytes/100 WBC (Bld) 47.4 % Normal 20.5-60.0 [facility] Comment on above: Performed By: #### T SH, CMP #### [facility] [address] [place] [address] Dr. Volodymyr Paez MANUAL DIFF REQ NO Normal [facility] Comment on above: Performed By: #### T SH, CMP #### [facility] [address] [place] [address] Dr. Volodymyr Paez MCH (RBC) [Entitic mass] 30.3 pg Normal 26.7-34.0 [facility] Comment on above: Performed By: #### T SH, CMP #### [facility] [address] [place] [address] Dr. Voloydmyr Paez MCHC (RBC) [Mass/Vol] 33.5 g/dL Normal 29.9-35.2 [facility] Comment on above: Performed By: #### T AKIKO, CMP #### [facility] [address] [place] [address] Dr. Volodymyr Paez MCV (RBC) [Entitic vol] 90.4 fL Normal 81.0-99.0 [facility] Comment on above: Performed By: #### T SH, CMP #### [facility] [address] [place] [address] Dr. Volodymyr Paez MONO # 0.9 103/ul Critically high 0.3-0.8 [facility] Comment on above: Performed By: #### T AKIKO, CMP #### [facility] [address] [place] [address] Dr. Volodymyr Paez Monocytes/100 WBC (Bld) 11.3 % Normal 1.7-12.0 [facility] Comment on above: Performed By: #### T SH, CMP #### [facility] [address] [place] [address] Dr. Volodymyr Paez NEUT # 2.7 103/ul Normal 1.4-6.5 [facility] Comment on above: Performed By: #### T SH, CMP #### [facility] [address] [place] [address] Dr. Volodymyr Paez Neutrophils/100 WBC (Bld) 35.2 % Critically low 43.0-75.0 [facility] Comment on above: Performed By: #### T SH, CMP #### [facility] [address] [place] [address] Dr. Volodymyr Paez Platelet mean volume (Bld) [Entitic vol] 11.4 fL Normal 9.5-13.5 [facility] Comment on above: Performed By: #### T SH, CMP #### [facility] [address] [place] [address] Dr. Volodymyr Paez PLT 96 103/ul Critically low 150-450 [facility] Comment on above: Result Comment: slid e made; no plt clumps seen Performed By: #### T AKIKO, CMP #### [facility] [address] [place] [address] Dr. Volodymyr Paez RBC 4.39 106/ul Normal 4.20-5.40 [facility] Comment on above: Performed By: #### T AKIKO, CMP #### [facility] [address] [place] [address] Dr. Volodymyr Paez WBC 7.6 103/ul Normal 4.0-11.0 [facility] Comment on above: Performed By: #### T AKIKO, CMP #### [facility] [address] [place] [address] Dr. Volodymyr Paez FREE T4on 06-27-2022 Free T4 [Mass/Vol] 1.45 ng/dL Normal 0.76-1.46 [facility] Comment on above: Performed By: #### F T4 #### [facility] [address] [place] [address] Dr. Volodymyr Paez PROF 14(COMP METB)on 023 Albumin [Mass/Vol] 3.2 g/dL Critically low 3.4-5.[address] [facility] Comment on above: Performed By: #### T SH, CMP #### [facility] [address] [place] [address] Dr. Volodymyr Paez Albumin/Globulin [Mass ratio] 0.7 {ratio} Normal [facility] Comment on above: Performed By: #### T SH, CMP #### [facility] [address] [address] [address] Volodymyr Paez ALP [Catalytic activity/Vol] 65 U/L Normal 46-116 [facility] Comment on above: Performed By: #### T SH, CMP #### [facility] [address] [address] [address] Volodymyr Paez ALT [Catalytic activity/Vol] 20 U/L Normal 14-59 [facility] Comment on above: Performed By: #### T SH, CMP #### [facility] [address] [address] [address] Volodymyr Paez Anion gap [Moles/Vol] 11.3 mmol/L Normal [facility] Comment on above: Performed By: #### T SH, CMP #### [facility] [address] [address] [address] Volodymyr Paez AST [Catalytic activity/Vol] 25 U/L Normal 15-37 [facility] Comment on above: Performed By: #### T SH, CMP #### [facility] [address] [address] [address] Volodymyr Paez Bilirubin [Mass/Vol] 0.3 mg/dL Normal 0.2-1.0 [facility] Comment on above: Performed By: #### T SH, CMP #### [facility] [address] [address] [address] Volodymyr Paez Calcium [Mass/Vol] 9.5 mg/dL Normal 8.5-10.1 [facility] Comment on above: Performed By: #### T SH, CMP #### [facility] [address] [address] [address] Volodymyr Paez Chloride [Moles/Vol] 100 mmol/L Normal 98-107 [facility] Comment on above: Performed By: #### T SH, CMP #### [facility] [address] [address] [address] Volodymyr Paez CO2 [Moles/Vol] 30.1 mmol/L Normal 21.0-32.0 [facility] Comment on above: Performed By: #### T SH, CMP #### [facility] [address] [address] [address] Volodymyr Paez Creatinine [Mass/Vol] 0.92 mg/dL Normal 0.55-1.02 [facility] Comment on above: Performed By: #### T SH, CMP #### [facility] [address] [address] [address] Volodymyr Paez EGFR-AF BAHAMIAN >60 Normal >=60 [facility] Comment on above: Performed By: #### T SH, CMP #### [facility] [address] [address] [address] Volodymyr Paez EGFR-NON AF BAHAMIAN >60 Normal >=60 [facility] Comment on above: Performed By: #### T SH, CMP #### [facility] [address] [place] [address] Dr. Volodymyr Paez Globulin (S) [Mass/Vol] 4.4 g/dL Normal [facility] Comment on above: Performed By: #### T SH, CMP #### [facility] [address] [address] [address] Volodymyr Paez Glucose [Mass/Vol] 76 mg/dL Normal 74-106 The [facility] Comment on above: Performed By: #### T SH, CMP #### [facility] [address] [place] [address] Dr. Volodymyr Paez Potassium [Moles/Vol] 4.4 mmol/L Normal 3.5-5.1 [facility] Comment on above: Performed By: #### T SH, CMP #### [facility] [address] [address] [address] Volodymyr Paez Protein [Mass/Vol] 7.6 g/dL Normal 6.4-8.2 [facility] Comment on above: Performed By: #### T SH, CMP #### [facility] [address] [place] [address] Dr. Volodymyr Paez Sodium [Moles/Vol] 137 mmol/L Normal 136-145 [facility] Comment on above: Performed By: #### T SH, CMP #### [facility] [address] [place], [place] [address] Dr. Volodymyr Paez Urea nitrogen [Mass/Vol] 7.0 mg/dL Normal 7.0-18.0 [facility] Comment on above: Performed By: #### T SH, CMP #### [facility] [address] [place], [place] [address] Dr. Volodymyr Paez Urea nitrogen/Creatinine [Mass ratio] 7.6 mg/mg Normal [facility] Comment on above: Performed By: #### T SH, CMP #### [facility] [address] [address] [address] Volodymyr Paez TSHon 06-27-2022 TSH 0.099 uIU/mL Critically low 0.358-3.740 [facility] Comment on above: Performed By: #### T SH, CMP #### [facility] [address] [place] [address] Dr. Volodymyr Paez DEPAKENE/ VALPROIC ACIDon DEPAKENE 72.4 ug/ml Normal 50.0-100.0 [facility] Comment on above: Performed By: #### T SH, CMP #### [facility] [address] [place] [address] Dr. Volodymyr Paez US THYROIDon 10-25-2021 US [...] screening is still recommended. TR 4: The [employer] TI-RADS committee's white paper recommendations for thyroid lesions classified as TR4 (moderately suspicious) are listed below: > 1.0 cm. Follow-up ultrasound in 1, 2, 3, and 5 years. > 1.5 cm. FNA. J. Am Chidi Radiol 2017;14:587-595. Electronically authenticated by: KRIS MENDOZA Date: 2021-10-25 09:31 Normal [facility] FREE T4on 10-24-2021 Free T4 [Mass/Vol] 1.08 ng/dL Normal 0.76-1.46 [facility] Comment on above: Performed By: #### T SH, CMP #### [facility] [address] [place], [place] [address] Dr. Volodymyr Paez TSHon 10-24-2021 TSH 12.719 uIU/mL Critically high 0.358-3.740 [facility] [place] Comment on above: Performed By: #### T SH #### [facility] [address] [address] [address] Volodymyr Paez Vital Signs Date Time Vital Sign Value Performing Clinician Faci lity 06-03-2024 09:45-0500 Body height 165.1 cm Eduarda Polyplus-transfection PA Work Phone: [facility] 06-03-2024 09:45-0500 Body mass index (BMI) [Ratio] 21.47 kg/m2 Eduarda Lowe PA Work Phone: [facility] 06-03-2024 09:45-0500 Body weight 58.51 kg Eduarda Lowe PA Work Phone: [facility] 03-10-2024 11:19-0500 Body height 165.1 cm Lai Alvarado DPM FACFAS Work Phone: [facility] 03-10-2024 11:19-0500 Body mass index (BMI) [Ratio] 21.3 kg/m2 Lai Alvarado DPM FACFAS Work Phone: [facility] 03-10-2024 11:19-0500 Body weight 58.06 kg Lai Alvarado DPM FACFAS Work Phone: [facility] 03-10-2024 11:19-0500 Diastolic blood pressure 72 mm[Hg] Lai Dolce DPM FACFAS Work Phone: [facility] 03-10-2024 11:19-0500 Heart rate 88 /min Lai Alvarado DPM FACFAS Work Phone: [facility] 03-10-2024 11:19-0500 Systolic blood pressure 115 mm[Hg] Lai Alvarado DPM FACFAS Work Phone: [facility] 03-02-2024 12:30-0500 Body temperature 98.1 [degF] Elmer Topete DDS Work Phone: [facility] 03-02-2024 12:30-0500 Diastolic blood pressure 73 mm[Hg] Elmer Topete DDS Work Phone: [facility] 03-02-2024 12:30-0500 Heart rate 113 /min Elmer Topete DDS Work Phone: [facility] 03-02-2024 12:30-0500 Respiratory rate 19 /min Elmer Topete DDS Work Phone: [facility] 03-02-2024 12:30-0500 SaO2% (BldA) [Mass fraction] 98 % Elmer Topete DDS Work Phone: [facility] 03-02-2024 12:30-0500 Systolic blood pressure 113 mm[Hg] Elmer Topete DDS Work Phone: [facility] 03-02-2024 09:11-0500 Body height 162.6 cm Elmer Topete DDS Work Phone: [facility] 03-02-2024 09:11-0500 Body mass index (BMI) [Ratio] 23.45 kg/m2 Elmer Topete DDS Work Phone: [facility] 03-02-2024 09:11-0500 Body weight 61.96 kg Elmer Topete DDS Work Phone: [facility] 02-19-2024 11:00-0400 Body height 162.6 cm Kelly Cabello RN [facility] 02-19-2024 11:00-0400 Body mass index (BMI) [Ratio] 23.45 kg/m2 Kelly Cabello RN [facility] 02-19-2024 11:00-0400 Body weight 61.96 kg Kelly Cabello RN [facility] 01-21-2024 11:05-0400 Diastolic blood pressure 72 mm[Hg] Radha AMADOR Work Phone: [facility] 01-21-2024 11:05-0400 Heart rate 92 /min Radha AMADOR Work Phone: [facility] 01-21-2024 11:05-0400 Respiratory rate 16 /min Radha AMADOR Work Phone: [facility] 01-21-2024 11:05-0400 SaO2% (BldA) [Mass fraction] 96 % Radha AMADOR Work Phone: [facility] 01-21-2024 11:05-0400 Systolic blood pressure 118 mm[Hg] Radha Martinez PA Work Phone: [facility] Healthcare Encounters Encounter Date Encounter Type Care Provider Facility Start: 06-03-2024 End: 06-03-2024 Office outpatient visit 25 minutes Eduarda AMADOR Work Phone: [facility] Comment on above: Seizure disorder (CM S/HCC) (Primary Dx); Autism (CMS/HCC); Developmental delay; Gait instability Start: 03-10-2024 End: 03-10-2024 Bamboo flowsheet Lai Alvarado DPM FACFAS Work Phone: [facility] Start: 03-10-2024 End: 03-10-2024 Bamboo flowsheet Lai Alvarado DPM FACFAS Work Phone: [facility] Start: 03-10-2024 End: 03-10-2024 ambulatory LAI ALVARADO Not Available Start: 03-10-2024 End: 03-10-2024 Office outpatient new 30 minutes Lai Alvarado DPM FACFAS Work Phone: [facility] Comment on above: Venous insufficiency (chronic) (peripheral) (Primary Dx); Onychomycosis; Pain in right toe(s); Pain in left toe(s); Onychocryptosis Start: 03-02-2024 End: 03-02-2024 Patient encounter procedure Elmer Topete DDS Work Phone: [facility] Dentistry Start: 03-02-2024 End: 03-02-2024 Subsequent hospital visit by physician Elmer Topete DDS Work Phone: [facility] Start: 03-02-2024 End: 03-02-2024 ambulatory ELMER ALROSSY Facility:[facility] Start: 02-26-2024 End: 02-26-2024 Telephone encounter Kelly Cabello RN [facility] Pre-Admission Testing Comment on above: Pre-surgical Evaluat ion (DD adult dental restorations 03/02 under [place] at [place]. PAT completed - anesthesia consent. PAT RN spoke to Mary (nurse), confirmed NPO, [place] address, and 0900 arrival time/) Start: 02-24-2024 End: 02-24-2024 Telephone encounter Ashleigh Kaplan RN [facility] Pre-Admission Testing Comment on above: PAT (Anesthesia cons ent obtained) Start: 02-21-2024 End: 02-21-2024 Telephone encounter Ashleigh Kaplan RN [facility] Pre-Admission Testing Comment on above: PAT (Anesthesia cons ent obtained) Start: 02-19-2024 End: 02-19-2024 Nursing evaluation of patient and report Kelly Cabello RN [facility] Pre-Admission Testing Comment on above: Pre-op evaluation (P rimary Dx) Start: 02-19-2024 End: 02-19-2024 Preprocedural examination done Kelly Cabello RN [facility] Start: 02-19-2024 ambulatory UNKNOWN PROVIDER Facili ty:[facility] Start: 02-19-2024 Encounter for other preprocedural examination UNKNOWN PROVIDER [facility] Start: 02-05-2024 End: 02-05-2024 Patient encounter procedure Refugio Ferrell [employer]ER Work Phone: [facility] Pre-Admission Testing Comment on above: NO SHOW (Primary Dx) Start: 01-21-2024 End: 01-21-2024 Bamboo flowsheet Radha AMADOR Work Phone: [facility] Start: 01-21-2024 End: 01-21-2024 Bamboo flowsheet Radha Martinez PA [facility] Start: 01-21-2024 End: 01-21-2024 ambulatory RADHA MARTINEZ Not Available Start: 01-21-2024 End: 01-21-2024 Office outpatient visit 15 minutes Radha AMADOR Work Phone: [facility] [employer] [facility] Comment on above: Seizure disorder (CM S/HCC) (Primary Dx); Mental deficiency (CMS/HCC); Autism (CMS/HCC); Pseudobulbar affect; Gait instability Start: 12-27-2023 End: 12-27-2023 Admission to same day surgery center Mike Weber DDS Work Phone: [facility] Start: 10-01-2023 End: 10-01-2023 ambulatory RADHA MARTINEZ [...] REQUEST Facility:[facility] Start: 04-30-2022 Telephone encounter Martha Crow rrider DMD Work Phone: [facility] Comment on above: Dental Start: 04-03-2022 End: 04-04-[address] NATHAN TILLEY Facility:[facility] Start: 03-13-2022 End: 03-18-2022 Patient encounter procedure Martha Coreas ALEXANDER Work Phone: [facility] Start: 10-24-2021 End: 10-25-[address] DOCTOR JAVED Facility:[facility] Start: 11-07-2016 End: 11-08-2016 Ambulatory DEFAULT PHYSICIAN Facility:[facility] Procedures Date Procedure Procedure Detail Performing Clinician Start: 03-02-2024 End: 03-02-2024 Urine test visual color cmprsn meths Milton Luna MD Work Phone: Plan of Treatment Date Care Activity Detail Author Start: 2043 Shingles (RZV) Vacci ne (1 of 2) Shingles (RZV) Vaccine (1 of 2) [facility] Start: 08-25-2024 End: 08-25-2024 Patient encounter procedure 08/25/2024 9:00 AM EDT Office Visit [facility] [address] [place] [address] Eduarda De Anda PA [address] [place] [address] [facility] Start: 06-10-2024 End: 06-10-2024 Patient encounter procedure 06/10/2024 10:30 AM EST Procedure Visit [facility] [address] [facility] [place] [address] Lai Alvarado, DPM FACFAS [address] [place] [address] [facility] Start: 05-12-2024 End: 05-12-2024 Patient encounter procedure 05/12/2024 11:20 AM EST Office Visit [facility] [address] [place] [address] Radha Martinez PA [address] [place] [address] [facility] [address] [facility] Start: 03-02-2024 End: 03-02-2024 Admission to same day surgery center 03/02/2024 9:14 AM EST - 03/02/2024 10:58 AM EST Surgery [facility] [address] [place] [id number] Elmer Topete DDS [address] [place] [address] DENTAL [facility]ORATIONS [facility] Surgery Comment on above: [facility]AL [employer] Start: 03-02-2024 End: 03-02-2024 DENTAL RESTORATIONS [facility] Start: 03-02-2024 End: 03-02-2024 Admission to same day surgery center 03/02/2024 7:40 AM EST - 03/02/2024 9:24 AM EST Surgery [facility] [address] [place] [id number] Elmer Topete DDS [address] [place] [address] DENTAL RESTORATIONS [facility] Surgery Comment on above: D[facility]AL [employer]ORATIONS Start: 03-02-2024 End: 03-02-2024 DENTAL RESTORATIONS DENTAL RESTORATIONS Routine scheduled Caries 03/02/2024 7:40 AM EST [facility] Start: 03-02-2024 Subsequent hospital visit by physician [facility] Start: 03-02-2024 End: 03-02-2024 Patient encounter procedure [facility] Dentistry Start: 02-05-2024 End: 02-05-2024 Patient encounter procedure 02/05/2024 9:15 AM EDT Office Visit [facility] Pre-Admission Testing [address] [place] [id number] Refugio Ferrell, CHERELLE-PHYSICAL EDUCATION TEACHER [address] [address] [facility] Pre-Admission Testing Start: 01-21-2024 Influenza vaccination Influenza Vacc ine (#1) [facility] Start: 01-21-2024 End: 01-20-2025 Lamotrigine level Lamotrigine level Lab Routine Seizure disorder (CMS/HCC) Expected: 01/21/2024 (Approximate), Expires: 01/20/2025 [facility] Work Phone: Comment on above: Expected: 01/21/2024 (Approximate), Expires: 01/20/2025 Start: 01-21-2024 End: 01-20-2025 Valproic acid level, total Valproic acid level, total Lab Routine Seizure disorder (CMS/HCC) Expected: 01/21/2024 (Approximate), Expires: 01/20/2025 [facility] Comment on above: Expected: 01/21/2024 (Approximate), Expires: 01/20/2025 Start: 12-22-2023 COVID-19 Vaccine ( season) COVID-19 Vaccine ( season) [facility] Start: 12-22-2023 COVID-19 Vaccine ( season) COVID-19 Vaccine ( season) [facility] Start: 12-22-2023 Influenza vaccination Influenza Vacc ine (#1) [facility] Start: 2023 Screening for malign ant neoplasm of cervix [facility] Start: 01-20-2022 Influenza vaccination [...] Start: 12-21-2013 Annual wellness visit Annual [facility] Visit ([id number]) [facility] Start: 01-02-2012 Hepatitis A (HAV) Vaccine (optional start 19+ years) Hepatitis A (HAV) Vaccine (optional start 19+ years) [facility] Start: 01-02-2012 Hepatitis B vaccination Hepati tis B (HBV) Vaccine (1 of + 3-dose series) [facility] Start: 2011 Hepatitis C screening Hepatitis C An tibody [facility] Start: 2011 Tetanus + diphtheria + acellular pertussis vaccine (product) [facility] Start: 01-02-2008 HIV screening HIV Test [facility] Start: 1993 Medicare Annual Wellness (AWV) Medicare Annual Wellness (AWV) [facility] DENTAL RESTORATIONS DENTAL MEENA RATIONS Routine scheduled Caries [facility] Payers Date Payer Category Payer Dental --Stand Alone DENTAL-MEDI CAID [id number] 2014 Unknown 2013 Medicaid [id number] 2012 Medicare [id number]. [id number] 2012 Medicare FFS MEDICARE [id number] 1993 Unknown [id number] [id number] 32 1993 Unknown [id number] 2.16.840.1.186030.3.579.2.7 32 1993 Unknown [id number] 2.16.840.1.075816.3.579.2.7 32 1993 Unknown [id number] 2.16.840.1.087089.3.579.2.1 259 1993 Unknown [id number] 2.16.840.1.034875.3.579.2.1 259 1993 Unknown [id number] 2.16.840.1.619274.3.579.2.1 259 1993 Unknown [id number] 2.16.840.1.185094.3.579.2.1 259 1959 Medicaid [id number] 1959 Medicare [id number] 1954 Unknown [id number] 2.16.840.1.008907.3.579.2.5 93 1954 Unknown [id number] 2.16.840.1.653537.3.579.2.5 93 1954 Unknown [id number] 2.840.1.980683.3.579.2.5 93 1954 Unknown [id number] 2.840.1.217993.3.579.2.5 93 1954 Unknown [id number] 2.840.1.350675.3.579.2.5 93 1954 Unknown [id number] 2.16.840.1.824297.3.579.2.5 93 1954 Unknown [id number] 2.16.840.1.866909.3.579.2.5 93 1954 Unknown [id number] 2.16.840.1.739319.3.579.2.5 93 Social History Date Type Detail Facility Tobacco smoking stat [facility] Tobacco smoking consumption unknown [facility] Start: 1995 Sex Assigned At [facility] on file [facility] Start: 10-01-2023 End: 06-03-2024 Gender identity Not on file [facility] Start: 08-06-2023 End: 02-19-2024 Tobacco smoking status NHIS Never smoked tobacco [facility] Start: 08-06-2023 End: 02-19-2024 Tobacco use and exposure Smokeless tobacco non-user [facility] Start: 10-01-2023 End: 06-03-2024 Alcoholic beverage intake Lifetime non-drinker (finding) [facility] Start: 10-01-2023 End: 06-03-2024 History of Social function [facility] Start: 07-06-2014 Sex [facility] (finding) [facility] Notes 03-13-2022 to 06-03-2024 PERRY Vazquez - 06/03/2024 10:00 AM ESTMarjuany Alvarado DPM [facility] - 03/10/2024 10:50 AM ESTDischarge InstructionsBrief Operative Note - Paula Contreras DDS - 03/02/2024 10:26 AM EST Note Date & Type Note Facility 06-03-2024 History of Present illness Narrative Romelia Ascencio is a 29 y.o. 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 Social History Tobacco Use Smoking status: Never Smokeless tobacco: Never Substance Use Topics Alcohol use: Never Medication Documentation Review Audit Reviewed by Krista Wu MA (Frontend Engineer) on 06/03/24 at 0955 Medication Order Taking? Sig Documenting Provider Last Dose Status ammonium lactate (Amlactin) 12 % cream [id number] Apply 2 application topically Daily Patient not taking: Reported on 06/03/2024 Historical Provider, Active busPIRone (Buspar) 30 MG tablet [id number] Take 30 mg by mouth in the morning and 30 mg in the evening and 30 mg before bedtime. Historical Provider, Active cloNIDine (Catapres) 0.2 MG tablet [id number] Take 0.2 mg by mouth in the morning and 0.2 mg at noon and 0.2 mg in the evening and 0.2 mg before bedtime. Real Schneider MD Active divalproex (Depakote) 125 MG EC tablet [id number] Take 500 mg by mouth in the morning and 500 mg in the evening and 500 mg before bedtime. Real Schneider MD Active divalproex (Depakote) 125 MG EC tablet [id number] Take 1,000 mg by mouth at bedtime Do not crush, chew, or split. Real Schneider MD Active famotidine (Pepcid) 40 MG tablet [id number] Take 40 mg by mouth Daily Real Schneider MD Active guanFACINE (Tenex) 2 MG tablet [id number] Take 2 mg by mouth in the morning and 2 mg before bedtime. Real Schneider MD Active lamoTRIgine (LaMICtal) 100 MG tablet [id number] Take 100 mg by mouth at bedtime Real Schneider MD Active lamoTRIgine (LaMICtal) 150 MG tablet [id number] Take 150 mg by mouth in the morning. Real Schneider MD Active levothyroxine (Synthroid, Levoxyl) 200 MCG tablet [id number] Take 200 mcg by mouth in the morning. Take before meals. Real Schneider MD Active levothyroxine (Synthroid, Levoxyl) 25 MCG tablet [id number] Take 25 mcg by mouth in the morning. Take before meals. Real Schneider MD Active loratadine (Claritin) 10 MG tablet [id number] Take 10 mg by mouth Daily Real Schneider MD Active Melatonin 3 MG tablet dispersible [id number] Take 3 mg by mouth at bedtime Real Schneider MD Active norethindrone-ethinyl estradiol (Ortho-Novum, Nortrel) 1-35 MG-MCG tablet [id number] Take 1 tablet by mouth Daily Real Schneider MD Active paliperidone (Invega) 3 MG 24 hr tablet [id number] Take 3 mg by mouth in the morning and 3 mg before bedtime. Do not crush, chew, or split.. Real Schneider MD Active polyethylene glycol, PEG, 3350 (Miralax) 17 g packet [id number] Take 17 g by mouth Daily Real Schneider MD Active QUEtiapine (SEROquel) 200 MG tablet [id number] Take 200 mg by mouth at bedtime Historical Provider, Active QUEtiapine (SEROquel) 400 MG tablet [id number] Take 400 mg by mouth at bedtime Historical Provider, Active HPI History obtained from caregiver report from [facility] Caregiver from [facility] here with patient today SEIZURE -on lamictal and depakote -denies any missed doses -denies any recent seizure -Angel Griffith continues to use a wheelchair for long distances -they consider her high risk for falls -last fall a couple of weeks ago -she is very unsteady -caregiver does not think that she had recent medication levels checked -she is very fatigued during the day -caregiver notes that she sleeps most of the day ROS Review of Systems Constitutional: Negative for activity change and appetite change. Respiratory: Negative. Neurological: Negative for dizziness, tremors and seizures. Objective Visit Vitals Ht 5' 5 Wt 129 lb BMI 21.47 kg/m Smoking Status Never BSA 1.64 m Neurological Exam Mental Status Awake and alert. Orientation: Unable to assess. Memory: impaired. Fund of knowledge is abnormal. Cranial Nerves CN II: Visual acuity appears grossly intact. CN III, IV, : Extraocular movements intact bilaterally. Normal lids and orbits bilaterally. Pupils equal round and reactive to light bilaterally. CN VII: Full and symmetric facial movement. CN VIII: Hearing is normal. Motor Normal muscle bulk throughout. Increased muscle tone. No abnormal involuntary movements. Gait In wheelchair. Motor Examination RUE Strength deltoid, biceps, triceps, wrist extensors, wrist extensors, wrist flexor, manager ambulatory strength 5/5. LUE Strength deltoid, biceps, triceps, wrist extensors, wrist extensors, wrist flexor, manager ambulatory strength 5/5. RLE Strength illopsoas, quadriceps, tibialis anterior, and gastrocnemius strength 5/5. LLE Strength illopsoas, quadriceps, tibialis anterior, and gastrocnemius strength 5/5. Tone Normal tone x4 extremities. Reflexes: RUE biceps reflex 1, brachioradialis reflex 1 LUE biceps reflex 1, brachioradialis reflex 1 RLE knee reflex 1 LLE knee reflex 1 Assessment and Plan Seizure disorder (CMS/HCC) Mental deficiency (CMS/HCC) Autism (CMS/HCC) Pseudobulbar affect Patient has history of seizure disorder, autism, MRDD and anxiety with signs/symptoms of pseudobulbar affect. She has been on topamax in the past, and this has since been weaned. She is maintained on depakote and lamictal for seizure prevention. Blood work revealed depakote and lamictal levels within therapeutic range from August 2023. She denies recent seizures but caregiver that she is more fatigued. She has not yet had labwork done. Dizziness Gait instability Tremor She also experiences chronic gait instability, dizziness, and is high risk for recurrent falls. She has completed vestibular therapy in the past. Carotid ultrasound was very limited due to patient cooperation. For MRI or CTA she would require sedation per [facility]. She had two recent falls 07/17/23 and 08/02/23. She was evaluated at [facility] ER. Lamictal dose was recently decreased, although she continues with balance problem. Blood work 09/12/2023: Valproic acid level 93.9, lamictal level 10.3 Blood work 08/07/2022: depakote level 80.3, lamictal level 11.2 Blood work 11/23/2022: depakote level 85, lamictal level 12.[address] 08/02/2023: nonacute CT cervical spine 08/02/2023: nonacute. 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 Maxillofacial without contrast 08/02/2023: revealed no acute fracture. There was finding of forehead scalp contusion. Ambulatory EEG 2018: normal PLAN Labwork order written on facility order sheet. Continue lamictal 150mg PO QAM and 100mg PO at bedtime for seizure prevention Continue Depakote 125mg 4 tabs PO TID and 8 tabs PO at bedtime for seizure prevention Continue with fall precautions at [facility] and assisted transfers and supervision/assistance with ambulation to avoid falls. She is at a high risk of trauma and debility associated with falls. 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 They were painful to palpation 24129 on the right 34756 on the left. VASC: DP /PT were nonpalpable bilateral. Capillary refill time < 3 seconds Digits 1-5 bilateral NEURO: Loma Cecy 5.07 monofilament was intact B/L. Vibratory [...] toe secondary to incurvation of the nails. MAURA Salas documented in this encounter [facility] 03-02-2024 Hospital Discharge instructions Rehana Aguillon RN - 03/02/2024 12:22 PM EST PERIOPERATIVE DISCHARGE/HOME-GOING INSTRUCTIONS ANESTHESIA - GENERAL (ADULT) If a problem arises, you may contact your physician by calling [phone] and asking for the resident integration specialist for Dental service. Special Care Needs: Activity: [...] very uncomfortable and can t urinate, call [phone] or come to the emergency room. A [...] home going instructions. documented in this encounter [facility] 03-02-2024 Miscellaneous Notes Brief Operative Note [facility] OR 3 Chantel Ascencio 29 year old female Surgical Contact Serial Number: [id number] Preoperative Diagnosis: Pre-op Diagnosis * Caries [K02.9] Postoperative Diagnosis: * Caries [K02.9] Procedures: Full mouth x-ray [46750] Prophylaxis [99102] Restorations [11806] Floride application [17176] Surgeon(s): Surgeon(s): Elmer Topete DDS Staff: Retail Shift Leader Nurse: Trudi Padilla Field Talent Qualification Specialist: Paula Contreras DDS; Melquiades Christie DDS Anesthesia: General Anesthesiologist: Milton Luna MD ANALYTICAL LABORATORY TECHNICIAN: Adalgisa Smith APRN-DARSHAN Supervisor Record Press: Dayanna Preciado MD Specimen(s): * No specimens [...] were discussed with the patient and/or legal chemical sales representative. The risks, benefits and alternatives were reviewed. Questions regarding blood transfusions were answered. The patient /or the patient s legal chemical sales representative agree with the plan for transfusion of blood and/or blood components. Surgical Case Number Data Unavailable Operating Room Data Unavailable Preoperative Diagnosis(es): Caries [k02.9] Surgeon: Dr. Topete Tissue Rewinder Surgeon: Melquiades Arias DDS - aPula Contreras DDS Anesthesia: General- Nasal ETT Estimated [...] the treatment plan included the following: Composite holiness on tooth #7 surface ML. Amalgam restorations [...] 11:56 AM EST documented in this encounter [facility] 03-02-2024 Surgery Postoperative evaluation and management note Brief Operative Note [facility] OR 3 Chantel Ascencio 29 year old female Surgical Contact Serial Number: [id number] Preoperative Diagnosis: Pre-op Diagnosis * Caries [K02.9] Postoperative Diagnosis: * Caries [K02.9] Procedures: Full mouth x-ray [48626] Prophylaxis [16583] Restorations [09591] Floride application [57908] Surgeon(s): Surgeon(s): Elmer Topete DDS Staff: Retail Shift Leader Nurse: Trudi Padilla Field Talent Qualification Specialist: Paula Contreras DDS; Melquiades Christie DDS Anesthesia: General Anesthesiologist: Milton Luna MD ANALYTICAL LABORATORY TECHNICIAN: Adalgisa Smith APRN-DARSHAN Supervisor Record Press: Dayanna Preciado MD Specimen(s): * No specimens [...] Topete DDS at 03/02/2024 11:55 AM EST [facility] 03-02-2024 History and physical note Images from the original note were not included. Surgical History and Physical [facility] Ambulatory Surgery [address] [place] [address] Name: Chantel Ascencio : 1995 29 year old CSN: [id number] Attending: Elmer Topete DDS Date of Admission: 03/02/2024 8:38 AM Room/Bed: [facility] OR/NONE Planned Procedure: Procedure(s): DENTAL RESTORATIONS [...] surgical history indicates: EXTRACTION, TOOTH (09/15/2014) Procedure: [place] teeth; Surgeon: Bradley Goodwin DDS; Location: PERIOPERATIVE [...] or any previous visit (from the past 58551 hours). BMP (last 3 years, up to [...] Topete DDS at 03/02/2024 11:48 AM EST [facility] Work Phone: 03-02-2024 Note Surgical History and Physical [facility] Ambulatory Surgery [address] [place] [address] Name: Chantel Ascencio : 1995 29 year old CSN: [id number] Attending: Elmer Topete DDS Date of Admission: 03/02/2024 8:38 AM Room/Bed: [facility] OR/NONE Planned Procedure: Procedure(s): DENTAL RESTORATIONS [...] surgical history indicates: EXTRACTION, TOOTH (09/15/2014) Procedure: [place] teeth; Surgeon: Bradley Goodwin DDS; Location: PERIOPERATIVE [...] or any previous visit (from the past 10394 hours). BMP (last 3 years, up to [...] Melquiades Stewart DDS 03/02/24 9:38 AM [facility] 03-02-2024 History and physical note Surgical [...] Topete DDS at 03/02/2024 11:48 AM EST ank 03-02-2024 Note Surgical Attestation : I have [...] Melquiades Stewart DDS 03/02/2024 9:38 AM [facility] 03-02-2024 Progress note Formatting of t his note is different from the original. Blood Attestation: ATTESTATION OF INFORMED CONSENT FOR BLOOD: The transfusion of blood and/or blood components were discussed with the patient and/or legal chemical sales representative. The risks, benefits and alternatives were reviewed. Questions regarding blood transfusions were answered. The patient /or the patient s legal chemical sales representative agree with the plan for transfusion of blood and/or blood components. [facility] Work Phone: 03-02-2024 History of Present illness Narrative ----- Saturday, March 02, 2024 at 11:38:59 AM ----- ----- Provider: [id number] Rebolledo DDS -- Clinic: [facility] ----- [place] notes, pt is ready for tx [place]. X-Rays look good, few cavities found and confirmed clinically. restos completed. OP Note by Paula Contreras DDS at 03/01/2024 6:14 PM Author: Paula Contreras DDS Service: Dentistry Author Type: Resident Filed: 03/02/2024 11:56 AM Date of Service: 03/01/2024 6:14 PM Note Type: OP Note Status: Cosign Needed Refrigerating Machine Operator: Paula Contreras DDS (Resident) Cosign Required: Yes Expand All Collapse All Surgical Case Number Data Unavailable Operating Room Data Unavailable Preoperative Diagnosis(es): Caries [k02.9] Surgeon: Dr. Topete Tissue Rewinder Surgeon: Melquiades Arias DDS - Paula Contreras [...] the treatment plan included the following: Composite holiness on tooth #7 surface ML. Amalgam restorations [...] 2024 at 11:57:17 AM ----- ----- Provider: [id number] - Elmer Rebolledo DDS -- Clinic: [facility] ----- documented in this encounter [facility] 03-01-2024 Surgery Surgical operation note Surgical Case Number Data Unavailable Operating Room Data Unavailable Preoperative Diagnosis(es): Caries [k02.9] Surgeon: Dr. Topete Tissue Rewinder Surgeon: Melquiades Arias DDS - Paula Contreras [...] the treatment plan included the following: Composite holiness on tooth #7 surface ML. Amalgam restorations [...] Topete DDS at 03/02/2024 11:56 AM EST [facility] 03-01-2024 Note Surgical Attestation : I have reviewed the patient's History and Physical Examination. I have personally seen and evaluated the patient, repeating cabrera portions. There is no significant interval change. Surgery is still indicated. Yes Consent reviewed and signed by patient/family: Yes Operative site verified and marked: Verified but not marked Paula Contreras DDS 03/01/2024 6:10 PM [facility] 02-24-2024 Telephone encounter Note Anesthesia consent obtained and scanned into Myd[facility]. Scheduled for surgery [facility]/02[facility]2024[facility] Miscellaneous Notes Anesthesia consent obtained and scanned into Mydish. Scheduled for surgery 03/02/2024. [facility]-21-2024 Telephone encounter Note Anesthesia consent obtained and scanned into Mydish. Scheduled for surgery 03/02/2024. [facility] 02-21-2024 Miscellaneous Notes Anesthesia consent obtained and scanned into Mydish. Scheduled for surgery 03/02/2024. documented in this encounter [facility] 02-19-2024 Instructions Kelly Cabello RN - [...] otherwise contacted. ? Expect a call from [facility] one business day prior to surgery for [...] your Preparing for Your Surgery/Procedure booklet or [email or web address] if you have questions. Contact the Pre-Admission Testing department at [phone] or your surgeon's office with any questions [...] stay with you after surgery. Please call [employer] if you need transportation assistance or have concerns about going home [phone]. ? PLEASE BE ON TIME. A late arrival may result in the cancellation/ delay of your surgery. Thank you for choosing [facility]; it is our pleasure to care for you documented in this encounter [facility] 02-19-2024 Evaluation note Telephone History Chantel Ascencio, [id number] 02/19/2024 Patient was identified by name and date of via Ivon, caregiver. Needs: Physical, Neck Circumference, BHCG, and ED on DOS. Note: OSH records/labs scanned to social media project manager. If the patient becomes ill prior to procedure or surgery, they are to call their provider or surgeon's office directly. 29 year old 136.6 lbs 5' 4 Date of Surgery: 03/02 Surgeon: Yoselyn Type of Surgery: DENTAL RESTORATIONS HISTORY OF PRESENT ILLNESS: telephone history for the upcoming surgery at [facility], [address] enter through the west entrance doors. STOP-BANG [...] (+) teeth problems missing Endo (+) hypothyroidism sewing machine bobbin winder - negative ROS Neuro/Psych (+) bipolar disorder, seizures, intellectual disability Cardiovascular - negative ROS GI/Hepatic/Renal (+) GERD Heme/Other - negative ROS PAST SURGICAL HISTORY: Past Surgical History: Procedure Laterality Date EUA, ORAL 09/15/2014 Procedure: EUA, ORAL; Surgeon: Bradley Goodwin DDS; Location: PERIOPERATIVE SERVICES; Service: Oral EXTRACTION, TOOTH Bilateral 09/15/2014 Procedure: [place] teeth; Surgeon: Bradley Goodwin DDS; Location: PERIOPERATIVE [...] Take by mouth. Fluticasone Propionate (FLONASE NASAL) [place] into each nostril. Selenium (SELENIMIN ORAL) Take [...] otherwise contacted. ? Expect a call from [facility] [facility] one business day prior to surgery for [...] your Preparing for Your Surgery/Procedure booklet or [email or web address] if you have questions. Contact the Pre-Admission Testing department at [phone] or your surgeon's office with any questions [...] stay with you after surgery. Please call [employer] if you need transportation assistance or have concerns about going home [phone]. ? PLEASE BE ON TIME. A late arrival may result in the cancellation/ delay of your surgery. Thank you for choosing [facility] [employer] [facility]; it is our pleasure to care for you Kelly Cabello RN Time Spent Performing this Telephone History: 48 with follow-up [facility]: [facility] 02-19-2024 Miscellaneous Notes Telephone History Chantel Ascencio, [id number] 02/19/2024 Patient was identified by name and [...] telephone history for the upcoming surgery at [facility], [address] [place], enter through the west entrance doors. STOP-BANG [...] (+) teeth problems missing Endo (+) hypothyroidism sewing machine bobbin winder - negative ROS Neuro/Psych (+) bipolar disorder, seizures, intellectual disability Cardiovascular - negative ROS GI/Hepatic/Renal (+) GERD Heme/Other - negative ROS PAST SURGICAL HISTORY: Past Surgical History: Procedure Laterality Date EUA, ORAL 09/15/2014 Procedure: EUA, ORAL; Surgeon: Bradley Goodwin DDS; Location: PERIOPERATIVE SERVICES; Service: Oral EXTRACTION, TOOTH Bilateral 09/15/2014 Procedure: [place] teeth; Surgeon: Bradley Goodwin DDS; Location: PERIOPERATIVE [...] Take by mouth. Fluticasone Propionate (FLONASE NASAL) [place] into each nostril. Selenium (SELENIMIN ORAL) Take [...] otherwise contacted. ? Expect a call from [employer] one business day prior to surgery for [...] your Preparing for Your Surgery/Procedure booklet or [email or web address] if you have questions. Contact the Pre-Admission Testing department at [phone] or your surgeon's office with any questions [...] stay with you after surgery. Please call [employer] if you need transportation assistance or have concerns about going home [phone]. ? PLEASE BE ON TIME. A late arrival may result in the cancellation/ delay of your surgery. Thank you for choosing [facility]; it is our pleasure to care for you Kelly Cabello RN Time Spent Performing this Telephone History: 48 with follow-up [place]: documented in this encounter [facility] 02-19-2024 Miscellaneous Notes Telephone History Chantel Ascencio, [id number] 02/19/2024 Patient was identified by name and date of via Ivon, caregiver. Needs: Physical, Neck Circumference, BHCG, and ED on DOS. Note: OSH records/labs scanned to social media project manager. If the patient becomes ill prior to procedure or surgery, they are to call their provider or surgeon's office directly. 29 year old 136.6 lbs 5' 4 Date of Surgery: 03/02 Surgeon: Yoselyn Type of Surgery: DENTAL RESTORATIONS HISTORY OF PRESENT ILLNESS: telephone history for the upcoming surgery at [facility], [address] [place], enter through the [facility]. STOP-BANG Row Name 02/19/24 1154 History [...] (+) teeth problems missing Endo (+) hypothyroidism sewing machine bobbin winder - negative ROS Neuro/Psych (+) bipolar disorder, seizures, intellectual disability Cardiovascular - negative ROS GI/Hepatic/Renal (+) GERD Heme/Other - negative ROS PAST SURGICAL HISTORY: Past Surgical History: Procedure Laterality Date EUA, ORAL 09/15/2014 Procedure: EUA, ORAL; Surgeon: Bradley Goodwin DDS; Location: PERIOPERATIVE SERVICES; Service: Oral EXTRACTION, TOOTH Bilateral 09/15/2014 Procedure: [place] teeth; Surgeon: Bradley Goodwin DDS; Location: PERIOPERATIVE [...] Take by mouth. Fluticasone Propionate (FLONASE NASAL) [place] into each nostril. Selenium (SELENIMIN ORAL) Take [...] otherwise contacted. ? Expect a call from [employer] one business day prior to surgery for [...] your Preparing for Your Surgery/Procedure booklet or [email or web address] if you have questions. Contact the Pre-Admission Testing department at [phone] or your surgeon's office with any questions [...] stay with you after surgery. Please call [facility] Social Work if you need transportation assistance or have concerns about going home [phone]. ? PLEASE BE ON TIME. A late arrival may result in the cancellation/ delay of your surgery. Thank you for choosing [facility]; it is our pleasure to care for you Kelly Cabello RN Time Spent Performing this Telephone History: 48 with follow-up [place]: documented in this encounter [facility] 10-21-2023 History and physical note Images from the original note were not included. Surgical History and Physical [facility] Amb[facility] Surgery [address] [place] [address] Name: Chantel Ascencio : 1995 29 year old CSN: [id number] Attending: Elmer Topete DDS Date of Admission: 03/02/2024 8:38 AM Room/Bed: [facility] OR/NONE Planned Procedure: Procedure(s): DENTAL RESTORATIONS [...] surgical history indicates: EXTRACTION, TOOTH (09/15/2014) Procedure: [place] teeth; Surgeon: Bradley Goodwin DDS; Location: PERIOPERATIVE [...] or any previous visit (from the past 88034 hours). BMP (last 3 years, up to [...] 11:48 AM EST documented in this encounter [facility] 04-30-2022 Miscellaneous Notes Bina from [facility] calling in. She wanted to know where the pt was at on the OR wait list. E-mail sent to Connie E-mail sent 04/30/22 documented in this encounter [facility] 04-30-2022 Telephone encounter Note Ibna from [facility] calling in. She wanted to know where the pt was at on the OR wait list. E-mail sent to Connie E-mail sent 04/30/22 [facility] 03-13-2022 History of Present illness Narrative ----- Sunday, March 13, 2022 at 11:58:40 AM ----- ----- Provider: Ashely Coreas DMD -- Clinic: [place] ----- OR EVALUATION Patient presents for evaluation [...] available. Legal Guardian: Toshia Ascencio Phone #: [phone] NOTE: Patient had a hard time leaning her head back, but allowed me to look. Patient not indicating she is in any pain. #8 is very discolored - most likely will need RCT treatment. Gingiva very red and irritated. Caregiver did not know who patient's guardian was or contact information, looked it up in [employer]. Next Visit: OR documented in this encounter [...] Ingrowing nail [facility] Diagnosis Seizure disorder (CMS/HCC)- Primary Unspecified epilepsy without mention of intractable epilepsy Autism (CMS/HCC) Autistic disorder, current or active state Developmental delay Unspecified delay in development Gait instability Abnormality of gait [facility] N[facility]* Auth/Cert (Routine) Specialty Diagnoses / Procedures Referred By Alessandro azul Referred To Contact Ambulatory Surgery Diagnoses Caries Caries [[id number]] Procedures INTERDENTAL FIXATION. UNLISTED PROCEDURE, DENTOALVEOLAR STRUCTURES DENTAL RESTORATIONS DequanMisaelLetitiaKyler fosterth, DDS [address] [place] [address] Phone: tel: fax: [facility] [employer] [address] [place] [phone] Phone: tel: Referral ID Status Reason Start Date Expiration Date Visits Re quested Visits Authorized [id number] 3 [facility] Summary Purpose Family History No Family History Records FoundNo Family History Records FoundNo Family History Records FoundNo Family History Records Found Advance Directives No Advanced Directives Records FoundNo Advanced Directives Records FoundNo Advanced Directives Records FoundNo Advanced Directives Records Found Reason for Referral Specialty Diagnoses / Procedures Referred By Alessandro azul Referred To Contact Anesthesiology Diagnoses Caries Elmer Topete, DDS [address] [place] [address] [facility] PRE ADMISSION TESTING [address] [place] [address] Referral ID Status Reason Start Date Expiration Date V isits Requested Visits Authorized [id number] Authorized 12/27/2023 12/26/2024 1 1 Scheduling Instructions Your surgical team will reach out to you to schedule a pre-admission testing appointment. Question Answer Reason for consult? Recommended PAT Risk Score Additional Source Comments INFORMATION SOURCE (unrecogn ized section and content) DATE CREATED AUTHOR 10/16/2017 [facility] DATE CREATED AUTHOR AUTHOR'S ORGANIZ ATION 09/02/[address] [facility] DATE CREATED AUTHOR AUTHOR'S ORGANIZ ATION 03/10/2024 [facility] [employer] DATE CREATED AUTHOR AUTHOR'S ORGANIZ ATION 03/12/2024 [facility] EPIC Reason for Visit (unrecogniz ed section and content) Reason Onset Date Comments Dental 04/30/2022 Reason Comments Seizures Reason Onset Date Comments PAT 02/21/2024 Anesthesia conse nt obtained Reason Onset Date Comments PAT 02/24/2024 Anesthesia conse nt obtained Reason Onset Date Comments Pre-surgical Evaluation 02/26/2024 DD adult dental restorations 03/02 under [place] at [place]. PAT completed - anesthesia consent. PAT RN spoke to Mary (nurse), confirmed NPO, [place] address, and 0900 arrival time Reason Comments Toenail Problem RT grt nail fungal Care Teams (unrecognized sec tion and content) Parts Assembler Relationship Specialty Start Date End [place] Unalloc[place], [place] [address] [place] [address] PCP - General Family Medicine 07/09/23 Kris Mcguire MD [address] [place] [address] Referring Physician Neurology 07/09/23 Parts Assembler Relationship Specialty Start Date End Date Unallocated, Frank Schneider MD [address] [place] [address] PCP - General Family Medicine 07/09/23 Kris Mcguire MD [address] [place] [address] Referring Physician Neurology 07/09/23 Parts Assembler Relationship Specialty Start Date End Date Nathan Tilley MD [facility] [address] [place] [address] PCP - General Family Medicine 03/10/24 Kris Mcguire MD [address] [place] [address] Referring Physician Neurology 07/09/23 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 [facility]. provides no warranty or guarantee of the accuracy or completeness of information in this document.
[2024-06-05 10:53] LABS: Valproic Acid 94.5 ug/mL (50.0-100.0)
[2024-06-08 08:08] LABS: Lamotrigine (Lamictal), Serum 13.4 ug/mL (2.0-20.0)
== END 2024-06-05 06:49 | disposition home or self-care (01) ==
LOC: LAB 06:50
PROVIDERS: PCP Family Medicine; Visit Provider Family Medicine
DX: Z51.81 Encounter for therapeutic drug level monitoring (principal); R53.83 Other fatigue
CPT/HCPCS: 36415; 80164; 80175

== ENCOUNTER 2024-09-22 06:59 | Outpatient (OUT) | payer MEDICARE, MEDICAID, SELFPAY ==
--- OUTSIDE RECORDS SUMMARY | 2024-09-22 07:02 | XMS_ITS | Clinical Summary ---
Author Organization [employer] [facility] tem Address [id number] [address] [place] [address] Care Team Providers Care Line Service Technician Name Role Phone Nathan Iyer DO Primary Care Provider Allergies Active Allergy Reactions Criticality Noted Date Comments Ethosuximide Rash Low 09/15/2014 Medications cloNIDine (CATAPRES) 0.2 mg tablet Take 0.2 mg by mouth 3 (three) times a day. Active divalproex (DEPAKOTE) 125 mg EC tablet Take 125 mg by mouth 4 (four) times a day. Active docusate sodium (COLACE) 100 mg capsule Take 100 mg by mouth 3 (three) times a day. Active fluticasone (FLONASE) 50 mcg/actuation nasal spray Administer 1 spray into each nostril daily. Active guanFACINE (TENEX) 1 mg tablet Take 2 mg by mouth nightly. Active guanFACINE (TENEX) 2 mg tablet Take 2 mg by mouth every morning before breakfast. Active diphenhydrAMINE (SOMINEX) 25 mg tablet Take 25 mg by mouth nightly as needed for sleep. Active ibuprofen (ADVIL,MOTRIN) 600 mg tablet Take 600 mg by mouth every 6 (six) hours as needed for pain. Active guaiFENesin (MUCINEX) 600 mg tablet extended release 12hr Take 600 mg by mouth every 12 (twelve) hours as needed. Active ondansetron (ZOFRAN) 4 mg tablet Take 4 mg by mouth every 8 (eight) hours as needed for nausea or vomiting. Active sennosides (sennosides) 8.8 mg/5 mL syrup Take 8.6 mg by mouth 2 (two) times a day as needed. Active triamcinolone (KENALOG) 0.1 % lotion Apply 1 application topically daily as needed. Active levothyroxine (SYNTHROID, LEVOTHROID) 100 MCG tablet Take 100 mcg by mouth daily. Active ammonium lactate (AMLACTIN) 12 % cream 8 Active diazePAM (VALIUM) 5 mg tablet 8 Active divalproex sprinkle (DEPAKOTE SPRINKLE) 125 mg capsule 8 Active lamoTRIgine (LaMICtal XR) 300 mg tablet extended release 24hr 8 Active NORTREL 1/35, 28, 1-35 mg-mcg per tablet 8 Active risperiDONE (RisperDAL) 1 mg tablet 8 Active risperiDONE (RisperDAL) 0.5 mg tablet 8 Active loratadine (CLARITIN) 10 mg tablet Take 10 mg by mouth daily. Active MELATONIN ORAL Take 3 mg by mouth once daily at bedtime. Active senna (SENOKOT) 8.6 mg tablet Take 17.2 mg by mouth 2 (two) times a day. Active acetaminophen (TYLENOL) 325 mg tablet Take 650 mg by mouth. Active bisacodyl (BISCOLAX) 10 mg suppository Insert 10 mg into the rectum as needed for constipation. Active diphenhydrAMINE (COMPLETE ALLERGY) 25 mg capsule Take 25 mg by mouth every 6 (six) hours as needed for itching. Active guaiFENesin (ROBITUSSIN) 100 mg/5 mL syrup Take by mouth every 4 (four) hours as needed for cough. Active busPIRone (BUSPAR) 10 mg tablet 3 (three) times a day. 8 Active lansoprazole (PREVACID) 30 mg capsule 8 Active pantoprazole (PROTONIX) 40 mg EC tablet 8 Active minoxidil (ROGAINE) 5 % solution Apply 1 application topically. Active cyanocobalamin, vitamin B-12, (VITAMIN B-12 ORAL) Take 1,500 mcg by mouth. Active lubiprostone (AMITIZA) 24 MCG capsule Take 24 mcg by mouth 2 (two) times a day with meals. Active bacitracin 500 unit/gram ointment Apply 1 application topically 2 (two) times a day. Active Active Problems Problem Noted Date Diagnosed Date Dizziness 07/03/2018 Thickening of wall of gallbladder 09/03/2017 Developmental delay 09/03/2017 Vomiting 09/03/2017 Dysphagia 09/03/2017 Autism 09/03/2017 Thyroid nodule 09/03/2017 Hypothyroidism 09/03/2017 History of seizure 09/03/2017 Anxiety disorder 09/03/2017 Resolved Problems Problem Noted Date Diagnosed Date Resolved Date Biliary dyskinesia 06/24/2018 0 Chronic cholecystitis 06/24/20182019 Weight loss 09/03/2017 07/01/2019 Family History Medical History Relation Name Comments Hypothyroidism Father Relation Name Status Comments Father Alive Mother Alive Social History Tobacco Use Types Packs/Day Years Used Date Smoking Tobacco: Never Smokeless Tobacco: Never Tobacco Cessation:Counseling Given: No Alcohol Use Standard Drinks/Week Comments No 0 (1 standard drink = 0.6 oz pur e alcohol) PHQ-2 Answer Date Recorded Total Score 0 07/01/2019 Childcare Answer Date Recorded Childcare Unknown 10/02/2018 Employment Answer Date Recorded Employment Unknown 10/02/2018 Purpose - Life Answer Date Recorded Purpose and direction in life Unknown Comments Unknown Sex and Gender Information Value Date Recorded Sex Assigned at Not on file Legal Sex Female 1:10 PM EDT Gender Identity Not on file Sexual Orientation Not on file Last Filed Vital Signs Vital Sign Reading Time Taken Comments Blood Pressure 105/65 07/01/2019 1:20 PM EDT Pulse 101 07/01/2019 1:20 PM EDT Temperature 36.3 C (97.4 F) 01/27/2018 10:31 AM EDT Respiratory Rate 17 06/24/2018 9:49 AM EST Oxygen Saturation 98% 2018 10:38 AM EDT Inhaled Oxygen Concentration - - Weight 71.4 kg (157 lb 8 oz) 07/01/2019 1:20 PM EDT Height 165.1 cm (5' 5 ) 07/01/2019 1:20 PM EDT Body Mass Index 26.21 07/01/2019 1:20 PM EDT Plan of Treatment Health Maintenance Due Date Last Done Comments Depression Screening 2005 Tobacco Screening 2005 Adult BMI Screening 2011 DTaP,Tdap and Td Vaccines (1 - Tdap) 01/02/2012 Pap Smear 2014 Influenza Vaccine 12/21/2024 Medical Devices Not on file Insurance MEDICAID [place] MEDICARE Advance Directives Documents on File Type Date Recorded 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
--- OUTSIDE RECORDS SUMMARY | 2024-09-22 07:02 | XMS_ITS | Clinical Summary ---
Author Organization [facility] Address [address] [place], [place] [id number] Care Team Providers Care Senior Linux Systems Engineer Name Role Phone Nathan Iyer DO Primary Care Provider Social History Tobacco Use Types Packs/Day Years Used Date Smoking Tobacco: Never Assessed Comments Unknown Sex and Gender Information Value Date Recorded Sex Assigned at Not on file Legal Sex Female 8:23 AM EST Gender Identity Not on file Sexual Orientation Not on file Plan of Treatment Health Maintenance Due Date Last Done Comments Anxiety Screening 2011 Depression Screening 2011 HIV Screening 2011 Hepatitis C Screening 2011 DTaP,Tdap,Td Vaccine (1 - Tdap) 01/02/2012 Hepatitis B Vaccine (1 of 3 - 19+ 3-dose series) 01/01 Cervical Cancer Screening 2014 Covid-19 Vaccine (2023- season) 2023 Influenza Vaccine (Season Ended) 2024 Insurance [address] [place] [id number] MEDICAID [place] Care Teams Senior Linux Systems Engineer Relationship Specialty Start Date End Date Nathan Iyer DO PCP - General Family Medicine 09/03/12
--- OUTSIDE RECORDS SUMMARY | 2024-09-22 07:03 | XMS_ITS | CCD ---
Author Organization [facility] Care Team Providers Care Returned Goods Receiving Clerk Name Role Phone PHYSICIAN, DEFAULT Unavailable Unavailable [...] Unavailable Nathan Tilley MD Primary Care Provider [phone] Kris Mcguire MD Unavailable EDUARDA PRUITT Attending Unavailable LAI ALVARADO Attending Unavailable RADHA MARTINEZ Attending Unavailable RADHA MARTINEZ Attending Unavailable EDUARDA PRUITT Attending Unavailable LAI ALVARADO Attending Unavailable LAI ALVARADO Attending Unavailable Allergies Allergy Classification Reported Allergen(s) Allergy Type Date of Onset Reaction(s) Facility (20 sources) Ethosuximide; Translations: [ETHOSUXIMIDE] [facility] All[facility]ol Drug Allergy 07-16-2013 [facility] (1 source) Ethosuximide Drug Allergy 07-16-2013 [facility] (18 sources) linaclotide; Translations: [LINACLOTIDE] Drug Allergy 08-06-2023 [facility] Healthcare Medications Current Medications Medication Drug Class(es) Dates Sig (Normalized) Sig (Original) acetaminophen 325 mg oral capsule (7 sources) Acetaminophen (Tylenol) 325 MG CAPS Take by mouth. Active busPIRone hydrochloride 30 mg oral tablet (20 sources) take 1 tablet by mouth in [...] Active cloNIDine hydrochloride 0.2 mg oral tablet (20 sources) Central alpha-2 Adrenergic Agonist cloNIDine (Catapres) 0.2 MG tablet Take 0.2 mg by mouth in the morning and 0.2 mg at noon and 0.2 mg in the evening and 0.2 mg before bedtime. Active CLONIDINE HCL OR AL Take by mouth. Suspended CLONIDINE HCL OR AL Take by mouth. Active CLONIDINE HCL OR AL Take by mouth. 0 Active diazePAM 5 mg oral tablet (2 sources) Benzodiazepine Start: 08-11-2024 diazePAM (Valium) 5 MG tablet Indications: Gait instability , Developmental delay , Seizure disorder (CMS/HCC) Take 1 tablet (5 mg) by mouth 1 time for 1 dose 30 minutes prior to MRI 1 tablet 08/11/2024 Active docusate sodium 100 mg oral capsule (12 sources) take 1 capsule by mouth twice daily docusate sodium (COLACE) 100 MG capsule Take 100 mg by mouth 2 times daily. Active ethinyl estradiol 0.035 mg / norethindrone acetate 1 mg oral tablet (20 sources) Estrogen norethindrone-et hi nyl estradiol (Ortho-Novum, Nortrel) 1-35 MG-MCG tablet Take 1 tablet by mouth Daily Active famotidine 40 mg oral tablet (20 sources) Histamine-2 Receptor Antagonist take 1 tablet by mouth once daily famotidine (Pepcid) 40 MG tablet Take 40 mg by mouth Daily Active fluticasone (12 sources) Corticosteroid Fluticasone Propionate (FLONASE NASAL) Eddy into each nostril. Suspended Fluticasone Prop ionate (FLONASE NASAL) Eddy into each nostril. Active Fluticasone Prop ionate (FLONASE NASAL) Eddy into each nostril. 0 Active guanFACINE 2 mg oral tablet (20 sources) Central alpha-2 Adrenergic Agonist take 1 [...] Active ammonium lactate 120 mg/ml topical cream (14 sources) ammonium lactate (Amlactin) 12 % cream [...] Active levothyroxine sodium 0.2 mg oral tablet (20 sources) l-Thyroxine take 1 tablet by mouth [...] meals. Active loratadine 10 mg oral tablet (20 sources) take 1 tablet by luly th once daily loratadine (Claritin) 10 MG tablet Take 10 mg by mouth Daily Active melatonin 3 mg disintegratin g oral tablet (20 sources) take 1 tablet by luly th [...] paliperidone 3 mg extended release oral tablet (20 sources) Atypical Antipsychotic take [...] by mouth daily. Active polyethylene glycol 3350 96026 mg powder for oral solution (20 sources) Osmotic Laxative take 17 g by [...] ORAL) Take by mouth. 0 Active sennosides, halfway 15 mg oral tablet (12 sources) take [...] Problem Date Documented Date Episodic/Chronic Anxiety disorders (15 sources) Anxiety disorder; Translations: [Anxiety disorder, unspecified] Onset: 09-03-2017 08-06-2023 Chronic Delirium, dementia, and amnestic and other cognitive disorders (19 sources) Pseudobulbar affect; Translations: [Pseudobulbar affect] Onset: 08-06-2023 08-06-2023 Chronic Developmental disorders (17 sources) Intellectual disability; Translations: [Unspecified intellectual disabilities] Onset: 01-15-2024 01-15-2024 Chronic Disorders usually diagnosed in infancy, childhood, or adolescence (19 sources) Autism spectrum disorder; Translations: [Autistic disorder] Onset: 09-03-2017 08-06-2023 Chronic E Codes: Fall (1 source) Fall on same level from slipping, tripping and stumbling with subsequent striking against unspecified object, initial encounter; Translations: [FALL SAME LVL SLIP STRK UNS OBJ INT] Onset: 07-23-2022 Episodic Epilepsy; convulsions (20 sources) Epilepsy, unspecified, not intractable, without status epilepticus; Translations: [Seizure disorder] Onset: 04-08-2022 Chronic Genitourinary symptoms and ill-defined conditions (1 source) Unspecified urinary incontinence; Translations: [UNSPECIFIED URINARY INCONTINENCE] Onset: 08-24-2022 Chronic Genitourinary symptoms and ill-defined conditions (4 sources) Anuria and oliguria; Translations: [ANURIA AND OLIGURIA] Onset: 08-21-2022 Episodic Malaise and fatigue (2 sources) Asthenia; Translations: [Weakness] 08-11-2024 Episodic Menopausal disorders (1 source) Hormone replacement therapy; Translations: [HORMONE REPLACEMENT THERAPY] Onset: 07-23-2022 Episodic Mycoses (4 sources) Onychomycosis; Translations: [Tinea unguium] 03-10-2024 Episodic Open wounds of head; neck; and trunk (4 sources) Laceration without foreign body of other part of head, initial encounter; Translations: [LAC W/O FB OTH PART HEAD INIT ENC] Onset: 07-21-2022 Episodic Other aftercare (5 sources) Other buttermaker (current) drug therapy; Translations: [OTH CARE HOME CURRENT DRUG THERAPY] Onset: 04-03-2022 Episodic Other connective tissue disease (4 sources) Pain of toe of right foot; Translations: [Pain in right toe(s)] 03-10-2024 Episodic Other connective tissue disease (4 sources) Pain of toe of left foot; Translations: [Pain in left toe(s)] 03-10-2024 Episodic Other diseases of veins and lymphatics (2 sources) Peripheral venous insufficiency; Translations: [Venous insufficiency (chronic) (peripheral)] 03-10-2024 Episodic Other nutritional; endocrine; and metabolic disorders (4 sources) Developmental delay; Translations: [Unspecified lack of [...] Episodic/Chronic Conditions associated with dizziness or vertigo (15 sources) Dizziness; Translations: [Dizziness and giddiness] Onset: 07-03-2018 08-06-2023 Episodic Disorders of teeth and jaw (12 sources) Dental caries; Translations: [Dental caries, unspecified] Onset: 12-27-2023 Resolved: 03-02-2024 12-27-2023 Episodic Other nervous system disorders (20 sources) Abnormal gait; Translations: [Unsteadiness on feet] Onset: 08-06-2023 01-15-2024 Episodic Residual codes; unclassified (15 sources) Personal history of other specified conditions; Translations: [Personal history of other specified diseases] Onset: 09-03-2017 08-06-2023 Episodic Results Test Name Value Interpretation Reference Range Facility Anesthesia Postprocedure Estelle taniationon 03-02-2024 Improvement Lead Authentication Interface Message Text Anesthesia Postoperative Assessment: [...] EVENTS: No notable events documented. 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 Of tooth extraction 2015, [place], nasal ET #6.5, MAC #3, grade [...] ( Anesthesia consent obtained and scanned into [facility]. Scheduled for surgery 03/02/2024. ) Questions answered / anesthesia plan accepted ( Anesthesia consent obtained and scanned into [facility]. Scheduled for surgery 03/02/2024. ) Past medical history, surgical history, allergies, and medications reviewed. Pertinent laboratory tests, EKG, imaging, and consults reviewed and I have personally seen and evaluated the patient, repeating cabrera portions of the history and physical examination. Attestation: Anesthesia options were discussed with the patient and/or legal insurance representative. The risks, benefits and alternatives were reviewed. Questions regarding anesthesia were answered. Patient and/or legal insurance representative knows such anesthetics and procedures may be performed by Resident physicians, Certified Anesthesiologist Assistants, or Certified Nurse Anesthetists under the supervision of a physician. The patient /or the patient's legal insurance representative agree with the plan for anesthesia. Comment: Anesthesia consent obtained and scanned into [facility]. Scheduled for surgery 03/02/2024. MHPATFORM Normal [facility] Anesthesia Transfer Of Careo n 03-02-2024 Improvement Lead Authentication Interface Message Text Patient taken to [...] surgical history indicates: EXTRACTION, TOOTH (09/15/2014) Procedure: [place] teeth; Surgeon: Bradley Goodwin DDS; Location: PERIOPERATIVE SERVICES; Service: Oral EUA, ORAL (09/15/2014) Procedure: EUA, ORAL; Surgeon: Buddy, Bradley Y., DDS; Location: PERIOPERATIVE SERVICES; Service: Oral Allergies: Linzess [linaclotide] and Zarontin [ethosuximide] Basic Operating Room Facts: Surgeon(s): Elmer Topete DDS Anesthesiologist: Milton Luna MD DAIRY EQUIPMENT SPECIALIST: Adalgisa Smith APRN-DARSHAN Melt Supervisor: Dayanna Preciado MD DENTAL RESTORATIONS (Right: Mouth) [...] of the report was received. Adalgisa Smith, CHERELLE-DARSHAN Normal [facility] Blood Attestationon 03-02-20 Improvement Lead Authentication Interface Message Text Blood Attestation: ATTESTATION OF INFORMED CONSENT FOR BLOOD: The transfusion of blood and/or blood components were discussed with the patient and/or legal insurance representative. The risks, benefits and alternatives were reviewed. Questions regarding blood transfusions were answered. The patient /or the patient's legal insurance representative agree with the plan for transfusion of blood and/or blood components. Normal [facility] Brief Operative Noteon 03-02 Improvement Lead Authentication Interface Message Text Brief Operative Note PHE OR 3 Chantel Ascencio 29 year old female Surgical Contact Serial Number: [id number] Preoperative Diagnosis: Pre-op Diagnosis * Caries [K02.9] Postoperative Diagnosis: * Caries [K02.9] Procedures: Full mouth x-ray [91138] Prophylaxis [62102] Restorations [21240] Floride application [58377] Surgeon(s): Surgeon(s): Elmer Topete DDS Staff: Team Foreman Nurse: Trudi Padilla Energy Conservation Representative: Paula Contreras DDS; Melquiades Christie DDS Anesthesia: General Anesthesiologist: Milton Luna MD DAIRY EQUIPMENT SPECIALIST: Adalgisa Smith APRN-DARSHAN Melt Supervisor: Dayanna Preciado MD Specimen(s): * No specimens [...] Contreras DDS 03/02/2024 11:48 AM Normal [facility] Progress Noteson 03-02-2024 Improvement Lead Authentication Interface Message Text ----- Saturday, March 02, 2024 at 11:38:59 AM ----- ----- Provider: Pradip Rebolledo DDS -- Clinic: [facility] ----- [place] notes, pt is ready for tx [place]. X-Rays look good, few cavities found and confirmed clinically. restos completed. OP Note by Paula Contreras DDS at 03/01/2024 6:14 PM Author: Paula Contreras DDS Service: Dentistry Author Type: Resident Filed: 03/02/2024 11:56 AM Date of Service: 03/01/2024 6:14 PM Note Type: OP Note Status: Cosign Needed Metal Cutter: Paula Contreras DDS (Resident) Cosign Required: Yes Expand All Collapse All Surgical Case Number Data Unavailable Operating Room Data Unavailable Preoperative Diagnosis(es): Caries [k02.9] Surgeon: Dr. Topete Drafting Detailer Surgeon: Melquiades Arias DDS - Paula Contreras [...] the treatment plan included the following: Composite buddhist on tooth #7 surface ML. Amalgam restorations [...] 2024 at 11:57:17 AM ----- ----- Provider: [id number] Rebolledo DDS -- Clinic: [facility] ----- Normal [facility] URINE HCG-IN [...] Positive [facility] OP Noteon 03-01-2024 Improvement Lead Authentication Interface Message Text Surgical Case Number Data Unavailable Operating Room Data Unavailable Preoperative Diagnosis(es): Caries [k02.9] Surgeon: Dr. Topete Drafting Detailer Surgeon: Melquiades Arias DDS - Paula Contreras [...] the treatment plan included the following: Composite buddhist on tooth #7 surface ML. Amalgam restorations [...] Contreras DDS 03/01/2024 6:15 PM Normal [facility] Telephone Encounteron 2023 Improvement Lead Authentication Interface Message Text Anesthesia consent obtained and scanned into [facility]. Scheduled for surgery 03/02/2024. Normal [facility] Telephone Encounteron 2023 Improvement Lead Authentication Interface Message Text Anesthesia consent obtained and scanned into [facility]. Scheduled for surgery 03/02/2024. Normal [facility] PAT Call Historyon Improvement Lead Authentication Interface Message Text Telephone History Chantel Ascencio, [id number] 02/19/2024 Patient was identified by name and date of via Ivon, caregiver. Needs: Physical, Neck Circumference, BHCG, and ED on DOS. Note: OSH records/labs scanned to [facility]. If the patient becomes ill prior to procedure or surgery, they are to call their provider or surgeon's office directly. 29 year old 136.6 lbs 5' 4 Date of Surgery: 03/02 Surgeon: Yoselyn Type of Surgery: DENTAL RESTORATIONS HISTORY OF PRESENT ILLNESS: telephone history for the upcoming surgery at [facility], [address] [place], enter through the west entrance doors. STOP-BANG Row Name 02/19/24 [id number] History of sleep apnea? 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 Fluticasone Propionate (FLONASE NASAL) Eddy into each nostril. Selenium (SELENIMIN ORAL) Take by mouth. Sennosides (SENNA) 15 MG tablet Take 1 Tab by mouth daily as needed for Constipation. topiramate (TOPIRAGEN) 25 MG tablet Take 75 mg by mouth 2 times daily (more content not included)... Normal [facility] Progress Noteson 02-17-2024 Improvement Lead Authentication Interface Message Text Patient PAT has be rescheduled for 02/19/2024--for OR visit 03/02/2024----- Saturday, February 17, 2024 at 10:10:00 AM ----- ----- Provider: LESLIE Claros Dental-Assembler Trim -- Clinic: [place] ----- Normal [facility] Progress Noteson 02-05-2024 Improvement Lead Authentication Interface Message Text Patient was no show for PAT today at [facility] surgery is scheduled 03/02-Contact Concetta @ [email or web address] --advised if PAT needs to reschedule or patient will be removed from OR----- Monday, February 05, 2024 at 4:24:04 PM ----- ----- Provider: LESLIE [facility]os [facility]im -- Clinic: [place] ----- Normal [facility] Progress Noteson 01-08-2024 Improvement Lead Authentication Interface Message Text Parent/guardian/pat ient was contacted for PAT AND OR Sedation scheduled -- confirmed information with patient, also informed mom importance of going to PAT appointment -- if missed, IV Sedation will be cancelled, and you will be placed back on wait list 03/02/24----- Monday, January 08, 2024 at 2:14:12 PM ----- ----- Provider: LESLIE Claros [facility]-Assembler Trim -- Clinic: [place] ----- Normal [facility] Progress Noteson 12-30-2023 Improvement Lead Authentication Interface Message Text Attempted to contact patient/ parent / guardian at telephone number listed -- no answer, left voicemail message requesting a return call.----- Saturday, December 30, 2023 at 2:26:35 PM ----- ----- Provider: LESLIE Claros [facility]-Assembler Trim -- Clinic: [place] ----- Normal [facility] FREE T4on 08-29-2022 Free T4 [Mass/Vol] 1.76 ng/dL Critically high 0.76-1.46 [facility] Comment on above: Performed By: #### F T4 #### [facility] [address] [place] [address] Dr. Volodymyr Paez TSHon 08-29-2022 TSH Qn m[IU]/L Critically low 0.358-3.740 [facility] Comment on above: Performed By: #### T SH #### [facility] [address] [place] [address] Dr. Volodymyr Paez CULTURE URINEon 08-24-2022 CULTURE [...] S F Tetracycline >=16 R F Normal [facility] Comment on above: Performed By: #### T SH, CMP #### [facility] [address] [place] [address] Dr. Volodymyr Paez UA (CLEAN/CATCH) BIOLOGICAL SCIENTIST/MICRO I F IND.on 08-21-2022 Bilirubin Ql (U) Negative Normal NEGATIVE [facility] Comment on above: Performed By: #### U ACSSHAHEEN ICRO #### [facility] [address] [place] [address] Dr. Volodymyr Paez Clarity (U) CLEAR Normal CLEAR [facility] Comment on above: Performed By: #### U ACSSHAHEEN UMICRO #### [facility] [address] [place] [address] Dr. Volodymyr Paez Color (U) LT. YELLOW Normal YELLOW [facility] Comment on above: Performed By: #### U ACSSHAHEEN, UMICRO #### [facility] [address] [place] [address] Dr. Volodymyr Paez Glucose Ql (U) Negative Normal NEGATIVE [facility] Comment on above: Performed By: #### U ACSIND, UMICRO #### [facility] [address] [address] [address] Volodymyr Paez Hemoglobin Ql (U) Negative Normal NEGATIVE [facility] Comment on above: Performed By: #### U ACSIND, UMICRO #### [facility] [address] [address] [address] Volodymyr Paez Ketones Ql (U) Negative Normal NEGATIVE [facility] Comment on above: Performed By: #### U ACSIND, UMICRO #### [facility] [address] [address] [address] Volodymyr Paez LEUKOCYTES SMALL Abnormal NEGATIVE [facility] Comment on above: Performed By: #### U ACSIND, UMICRO #### [facility] [address] [place] [address] Dr. Volodymyr Paez Nitrite Ql (U) Negative Normal NEGATIVE [facility] Comment on above: Performed By: #### U ACSIND, ICRO #### [facility] [address] [place] [address] Dr. Volodymyr Paez pH (U) 7.0 [pH] Normal 5-9 [facility] Comment on above: Performed By: #### U ACSSHAHEEN, ICRO #### [facility] [address] [place] [address] Dr. Volodymyr Paez SPEC GRAVITY 1.020 Normal 1.005-<=1.025 [facility] Comment on above: Performed By: #### U ACSIND, UMICRO #### [facility] [address] [place] [address] Dr. Volodymyr Paez UA PROTEIN Negative Normal NEGATIVE/ TRACE [facility] Comment on above: Performed By: #### U ACSIND, UMICRO #### [facility] [address] [place] [address] Dr. Volodymyr Paez UR MICRO IND INDICATED Normal [facility] Comment on above: Performed By: #### U ACSIND, UMICRO #### [facility] [address] [place] [address] Dr. Volodymyr Paez Urobilinogen Qn (U) 0.2 {Leta'U}/dL Normal 0.2 - 1. 0 [facility] Comment on above: Performed By: #### U ACSIND, UMICRO #### [facility] [address] [place] [address] Dr. Volodymyr Paez URINE MICROSCOPIC ONLYon BACTERIA SMALL Abnormal NONE SEEN [facility] Comment on above: Performed By: #### U ACSIND, UMICRO #### [facility] [address] [place] [address] Dr. Volodymyr Paez Bacteria identified Cx Nom (U) INDICATED Normal [facility] Comment on above: Performed By: #### U ACSIND, UMICRO #### [facility] [address] [place] [address] Dr. Volodymyr Paez CAST NONE SEEN Normal NONE SEEN [facility] Comment on above: Performed By: #### U ACSIND, UMICRO #### [facility] [address] [place] [address] Dr. Volodymyr Paez Crystals LM Nom (Urine sed) NONE SEEN Normal NONE SEEN [facility] Comment on above: Performed By: #### U ACSSHAHEEN, UMICRO #### [facility] [address] [place] [address] Dr. Volodymyr Paez Epithelial cells LM Ql (Urine sed) MODERATE Abnormal NONE SEEN /RARE [facility] Comment on above: Performed By: #### U ACSSHAHEEN UMICRO #### [facility] [address] [place] [address] Dr. Volodymyr Paez MUCOUS TRACE Abnormal NONE SEEN [facility] Comment on above: Performed By: #### U ACSIND, UMICRO #### [facility] [address] [place] [address] Dr. Volodymyr Paez RBC 2-5 Abnormal 0-2 [facility] Comment on above: Performed By: #### U ACSIND, UMICRO #### [facility] [address] [place] [address] Dr. Volodymyr Paez WBC 10-20 Abnormal NONE SEEN [facility] Comment on above: Performed By: #### U ACSIND, UMICRO #### [facility] [address] [place] [address] Dr. Volodymyr Paez LAMOTRIGINEon 08-13-2022 Lamotrigine, Serum 11.2 ug/mL Normal 2.0-20.0 [facility] Comment on above: Result Comment: Dete ction Limit = 1.0 Performed By: #### T SH, CMP #### [facility] [address] [place] [address] Dr. Volodymyr Paez CBC AUTO DIFFon 08-09-2022 BASO # 0.0 103/ul Normal 0.0-0.1 [facility] Comment on above: Performed By: #### C BC #### [facility] [address] [place] [address] Dr. Volodymyr Paez Basophils/100 WBC (Bld) 0.4 % Normal 0.2-2.0 [facility] Comment on above: Performed By: #### C BC #### [facility] [address] [place] [address] Dr. Volodymyr Paez EO # 0.4 103/ul Normal 0.0-0.7 [facility] Comment on above: Performed By: #### C BC #### [facility] [address] [place] [address] Dr. Volodymyr Paez Eosinophils/100 WBC (Bld) 4.3 % Normal 0.9-7.0 [facility] Comment on above: Performed By: #### C BC #### [facility] [address] [place] [address] Dr. Volodymyr Paez Erythrocyte distribution width (RBC) [Ratio] 13.2 % Normal 11.0-15.0 [facility] Comment on above: Performed By: #### C BC #### [facility] [address] [place] [address] Dr. Volodymyr Paez Hematocrit (Bld) [Volume fraction] 40.2 % Normal 36.0-48.0 [facility] Comment on above: Performed By: #### C BC #### [facility] [address] [place] [address] Dr. Volodymyr Paez Hemoglobin (Bld) [Mass/Vol] 13.8 g/dL Normal 12.0-16.0 [facility] Comment on above: Performed By: #### C BC #### [facility] [address] [place] [address] Dr. Volodymyr Paez IG # 0.02 10e3/ul Normal 0.00-0.03 [facility] Comment on above: Performed By: #### C BC #### [facility] [address] [place] [address] Dr. Volodymyr Paez IG % 0.2 % Normal 0.0-0.5 [facility] Comment on above: Performed By: #### C BC #### [facility] [address] [place] [address] Dr. Volodymyr Paez LYMPH # 4.3 103/ul Critically high 1.2-3.8 [facility] Comment on above: Performed By: #### C BC #### [facility] [address] [place] [address] Dr. Volodymyr Paez Lymphocytes/100 WBC (Bld) 51.8 % Normal 20.5-60.0 [facility] Comment on above: Performed By: #### C BC #### [facility] [address] [place] [address] Dr. Volodymyr Paez MANUAL DIFF REQ NO Normal [facility] Comment on above: Performed By: #### C BC #### [facility] [address] [place] [address] Dr. Volodymyr Paez MCH (RBC) [Entitic mass] 31.0 pg Normal 26.7-34.0 [facility] Comment on above: Performed By: #### C BC #### [facility] [address] [place] [address] Dr. Volodymyr Paez MCHC (RBC) [Mass/Vol] 34.3 g/dL Normal 29.9-35.2 [facility] Comment on above: Performed By: #### C BC #### [facility] [address] [place] [address] Dr. Volodymyr Paez MCV (RBC) [Entitic vol] 90.3 fL Normal 81.0-99.0 [facility] Comment on above: Performed By: #### C BC #### [facility] [address] [place] [address] Dr. Volodymyr Paez MONO # 0.9 103/ul Critically high 0.3-0.8 [facility] Comment on above: Performed By: #### C BC #### [facility] [address] [place] [address] Dr. Volodymyr Paez Monocytes/100 WBC (Bld) 10.4 % Normal 1.7-12.0 [facility] Comment on above: Performed By: #### C BC #### [facility] [address] [place] [address] Dr. Volodymyr Paez NEUT # 2.7 103/ul Normal 1.4-6.5 [facility] Comment on above: Performed By: #### C BC #### [facility] [address] [place] [address] Dr. Volodymyr Paez Neutrophils/100 WBC (Bld) 32.9 % Critically low 43.0-75.0 [facility] Comment on above: Performed By: #### C BC #### [facility] [address] [place] [address] Dr. Volodymyr Paez Platelet mean volume (Bld) [Entitic vol] 10.3 fL Normal 9.5-13.5 [facility] Comment on above: Performed By: #### C BC #### [facility] [address] [place] [address] Dr. Volodymyr Paez PLT 231 103/ul Normal 150-450 [facility] Comment on above: Performed By: #### C BC #### [facility] [address] [place] [address] Dr. Volodymyr Paez RBC 4.45 106/ul Normal 4.20-5.40 [facility] Comment on above: Performed By: #### C BC #### [facility] [address] [place] [address] Dr. Volodymyr Paez WBC 8.2 103/ul Normal 4.0-11.0 [facility] Comment on above: Performed By: #### C BC #### [facility] [address] [place] [address] Dr. Volodymyr Paez DEPAKENE/ VALPROIC ACIDon DEPAKENE 80.3 ug/ml Normal 50.0-100.0 [facility] Comment on above: Performed By: #### V ALP #### [facility] [address] [address] [address] Volodymyr Paez US THYROIDon 07-10-2022 US [...] 6 mm. No follow-up required TI-RADS: The [employer] TI-RADS committee's white paper recommendations for thyroid lesions classified as TR4 (moderately suspicious) are listed below: > 1.0 cm. Follow-up ultrasound in 1, 2, 3, and 5 years. > 1.5 cm. FNA. J. Am Chidi Radiol 2017;14:587-595. Electronically authenticated by: MATILDE WATERMAN Date: 2022-07-10 13:01 Normal [facility] LAMOTRIGINEon 06-29-2022 Lamotrigine, Serum 14.2 ug/mL Normal 2.0-20.0 [facility] Comment on above: Result Comment: Dete ction Limit = 1.0 Performed By: #### T SH, CMP #### [facility] [address] [place] [address] Dr. Volodymyr Paez CBC AUTO DIFFon 06-27-2022 BASO # 0.1 103/ul Normal 0.0-0.1 [facility] Comment on above: Performed By: #### T SH, CMP #### [facility] [address] [place] [address] Dr. Volodymyr Paez Basophils/100 WBC (Bld) 0.7 % Normal 0.2-2.0 [facility] Comment on above: Performed By: #### T SH, CMP #### [facility] [address] [place] [address] Dr. Volodymyr Paez EO # 0.4 103/ul Normal 0.0-0.7 [facility] Comment on above: Performed By: #### T SH, CMP #### [facility] [address] [place] [address] Dr. Volodymyr Paez Eosinophils/100 WBC (Bld) 5.1 % Normal 0.9-7.0 [facility] Comment on above: Performed By: #### T AKIKO, CMP #### [facility] [address] [place] [address] Dr. Volodymyr Paez Erythrocyte distribution width (RBC) [Ratio] 13.1 % Normal 11.0-15.0 [facility] Comment on above: Performed By: #### T AKIKO, CMP #### [facility] [address] [place] [address] Dr. Volodymyr Paez Hematocrit (Bld) [Volume fraction] 39.7 % Normal 36.0-48.0 [facility] Comment on above: Performed By: #### T AKIKO, CMP #### [facility] [address] [place] [address] Dr. Volodymyr Paez Hemoglobin (Bld) [Mass/Vol] 13.3 g/dL Normal 12.0-16.0 [facility] Comment on above: Performed By: #### T SH, CMP #### [facility] [address] [place] [address] Dr. Volodymyr Paez IG # 0.02 10e3/ul Normal 0.00-0.03 [facility] Comment on above: Performed By: #### T AKIKO, CMP #### [facility] [address] [place], [place] [id number] Dr. Volodymyr Paez IG % 0.3 % Normal 0.0-0.5 [facility] Comment on above: Performed By: #### T AKIKO, CMP #### [facility] [address] [place] [address] Dr. Volodymyr Paez LYMPH # 3.6 103/ul Normal 1.2-3.8 [facility] Comment on above: Performed By: #### T AKIKO, CMP #### [facility] [address] [place] [address] Dr. Volodymyr Paez Lymphocytes/100 WBC (Bld) 47.4 % Normal 20.5-60.0 [facility] Comment on above: Performed By: #### T AKIKO, CMP #### [facility] [address] [place] [address] Dr. Volodymyr Paez MANUAL DIFF REQ NO Normal [facility] Comment on above: Performed By: #### T AKIKO, CMP #### [facility] [address] [place] [address] Dr. Volodymyr Paez MCH (RBC) [Entitic mass] 30.3 pg Normal 26.7-34.0 [facility] Comment on above: Performed By: #### T AKIKO, CMP #### [facility] [address] [place] [address] Dr. Volodymyr Paez MCHC (RBC) [Mass/Vol] 33.5 g/dL Normal 29.9-35.2 [facility] Comment on above: Performed By: #### T AKIKO, CMP #### [facility] [address] [place] [address] Dr. Volodymyr Paez MCV (RBC) [Entitic vol] 90.4 fL Normal 81.0-99.0 [facility] Comment on above: Performed By: #### T AKIKO, CMP #### [facility] [address] [place] [address] Dr. Volodymyr Paez MONO # 0.9 103/ul Critically high 0.3-0.8 [facility] Comment on above: Performed By: #### T AKIKO, CMP #### [facility] [address] [place] [address] Dr. Volodymyr Paez Monocytes/100 WBC (Bld) 11.3 % Normal 1.7-12.0 [facility] Comment on above: Performed By: #### T SH, CMP #### [facility] [address] [place] [address] Dr. Volodymyr Paez NEUT # 2.7 103/ul Normal 1.4-6.5 [facility] Comment on above: Performed By: #### T SH, CMP #### [facility] [address] [place] [address] Dr. Volodymyr Paez Neutrophils/100 WBC (Bld) 35.2 % Critically low 43.0-75.0 [facility] Comment on above: Performed By: #### T AKIKO, CMP #### [facility] [address] [place] [address] Dr. Volodymyr Paez Platelet mean volume (Bld) [Entitic vol] 11.4 fL Normal 9.5-13.5 [facility] Comment on above: Performed By: #### T AKIKO, CMP #### [facility] [address] [place] [address] Dr. Volodymyr Paez PLT 96 103/ul Critically low 150-450 [facility] Comment on above: Result Comment: slid e made; no plt clumps seen Performed By: #### T AKIKO, CMP #### [facility] [address] [place] [address] Dr. Volodymyr Paez RBC 4.39 106/ul Normal 4.20-5.40 [facility] Comment on above: Performed By: #### T AKIKO, CMP #### [facility] [address] [place] [address] Dr. Volodymyr Paez WBC 7.6 103/ul Normal 4.0-11.0 [facility] Comment on above: Performed By: #### T AKIKO, CMP #### [facility] [address] [place] [address] Dr. Volodymyr Paez FREE T4on 06-27-2022 Free T4 [Mass/Vol] 1.45 ng/dL Normal 0.76-1.46 [facility] Comment on above: Performed By: #### F T4 #### [facility] [address] [place] [address] Dr. Volodymyr Paez PROF 14(COMP METB)on 023 Albumin [Mass/Vol] 3.2 g/dL Critically low 3.4-5.0 [facility] Comment on above: Performed By: #### T SH, CMP #### [facility] [address] [place] [address] Dr. Volodymyr Paez Albumin/Globulin [Mass ratio] 0.7 {ratio} Normal [facility] Comment on above: Performed By: #### T SH, CMP #### [facility] [address] [place] [address] Dr. Volodymyr Paez ALP [Catalytic activity/Vol] 65 U/L Normal 46-116 [facility] Comment on above: Performed By: #### T SH, CMP #### [facility] [address] [place] [address] Dr. Volodymyr Paez ALT [Catalytic activity/Vol] 20 U/L Normal 14-59 [facility] Comment on above: Performed By: #### T SH, CMP #### [facility] [address] [place] [address] Dr. Volodymyr Paez Anion gap [Moles/Vol] 11.3 mmol/L Normal [facility] Comment on above: Performed By: #### T SH, CMP #### [facility] [address] [place] [address] Dr. Volodymyr Paez AST [Catalytic activity/Vol] 25 U/L Normal 15-37 [facility] Comment on above: Performed By: #### T SH, CMP #### [facility] [address] [place] [address] Dr. Volodymyr Paez Bilirubin [Mass/Vol] 0.3 mg/dL Normal 0.2-1.0 [facility] Comment on above: Performed By: #### T SH, CMP #### [facility] [address] [place] [address] Dr. Volodymyr Paez Calcium [Mass/Vol] 9.5 mg/dL Normal 8.5-10.1 [facility] Comment on above: Performed By: #### T SH, CMP #### [facility] [address] [address] [address] Volodymyr Paez Chloride [Moles/Vol] 100 mmol/L Normal 98-107 [facility] Comment on above: Performed By: #### T SH, CMP #### [facility] [address] [address] [address] Volodymyr Paez CO2 [Moles/Vol] 30.1 mmol/L Normal 21.0-32.0 [facility] Comment on above: Performed By: #### T SH, CMP #### [facility] [address] [place] [address] Dr. Volodymyr Paez Creatinine [Mass/Vol] 0.92 mg/dL Normal 0.55-1.02 [facility] Comment on above: Performed By: #### T SH, CMP #### [facility] [address] [place] [address] Dr. Volodymyr Paez EGFR-AF MARTINIQUAIS >60 Normal >=60 [facility] Comment on above: Performed By: #### T SH, CMP #### [facility] [address] [place] [address] Dr. Volodymyr Paez EGFR-NON AF MARTINIQUAIS >60 Normal >=60 [facility] Comment on above: Performed By: #### T SH, CMP #### [facility] [address] [place] [address] Dr. Volodymyr Paez Globulin (S) [Mass/Vol] 4.4 g/dL Normal [facility] Comment on above: Performed By: #### T SH, CMP #### [facility] [address] [place] [address] Dr. Volodymyr Paez Glucose [Mass/Vol] 76 mg/dL Normal 74-106 [facility] Comment on above: Performed By: #### T SH, CMP #### [facility] [address] [place] [address] Dr. Volodymyr Paez Potassium [Moles/Vol] 4.4 mmol/L Normal 3.5-5.1 [facility] Comment on above: Performed By: #### T SH, CMP #### [facility] [address] [address] [address] Volodymyr Paez Protein [Mass/Vol] 7.6 g/dL Normal 6.4-8.2 [facility] Comment on above: Performed By: #### T SH, CMP #### [facility] [address] [place] [address] Dr. Volodymyr Paez Sodium [Moles/Vol] 137 mmol/L Normal 136-145 [facility] Comment on above: Performed By: #### T SH, CMP #### [facility] [address] [place] [address] Dr. Volodymyr Paez Urea nitrogen [Mass/Vol] 7.0 mg/dL Normal 7.0-18.0 [facility] Comment on above: Performed By: #### T SH, CMP #### [facility] [address] [place] [address] Dr. Volodymyr Paez Urea nitrogen/Creatinine [Mass ratio] 7.6 mg/mg Normal [facility] Comment on above: Performed By: #### T SH, CMP #### [facility] [address] [place] [address] Dr. Volodymyr Paez TSHon 06-27-2022 TSH 0.099 uIU/mL Critically low 0.358-3.740 [facility] Comment on above: Performed By: #### T SH, CMP #### [facility] [address] [place] [address] Dr. Volodymyr Paez DEPAKENE/ VALPROIC ACIDon DEPAKENE 72.4 ug/ml Normal 50.0-100.0 [facility] Comment on above: Performed By: #### T SH, CMP #### [facility] [address] [place] [address] Dr. Volodymyr Paez US THYROIDon 10-25-2021 US [...] screening is still recommended. TR 4: The [employer] TI-RADS committee's white paper recommendations for thyroid lesions classified as TR4 (moderately suspicious) are listed below: > 1.0 cm. Follow-up ultrasound in 1, 2, 3, and 5 years. > 1.5 cm. FNA. J. Am Chidi Radiol 2017;14:587-595. Electronically authenticated by: KRIS MENDOZA Date: 2021-10-25 09:31 Normal [facility] FREE T4on 10-24-2021 Free T4 [Mass/Vol] 1.08 ng/dL Normal 0.76-1.46 [facility] Comment on above: Performed By: #### T SH, CMP #### [facility] [address] [address] [address] Volodymyr Paez TSHon 10-24-2021 TSH 12.719 uIU/mL Critically high 0.358-3.740 [facility] Comment on above: Performed By: #### T SH #### [facility] [address] [address] [address] Volodymyr Paez Vital Signs Date Time Vital Sign Value Performing Clinician Faci lity 08-25-2024 11:03040 Body height 165.1 cm Lai Alvarado DPM [facility]ACFAS Work Phone: [facility] 08-25-2024 11:03040 Body mass index (BMI) [Ratio] 21.3 kg/m2 Lai Alvarado DPM [facility]AC[facility]AS Work Phone: [facility] 08-25-2024 11:03040 Body weight 58.06 kg Lai Alvarado DPM [facility]AC[facility]AS Work Phone: [facility] 08-25-2024 11:03-0400 Diastolic blood pressure 64 mm[Hg] Lai Alvarado DPM FACFAS Work Phone: [facility] 08-25-2024 11:03-0400 Heart rate 71 /min Lai Alvarado DPM [facility]AC[facility]AS Work Phone: [facility] 08-25-2024 11:03-0400 Systolic blood pressure 110 mm[Hg] Lai Alvarado DPM [facility]AC[facility]AS Work Phone: [facility] 08-11-2024 10:16-0400 Body height 165.1 cm Eduarda Lowe PA Work Phone: [facility] 08-11-2024 10:16-0400 Body mass index (BMI) [Ratio] 21.47 kg/m2 Eduarda Lowe PA Work Phone: [facility] 08-11-2024 10:16-0400 Body weight 58.51 kg Eduarda Lowe PA Work Phone: [facility] 08-11-2024 10:16-0400 Diastolic blood pressure 62 mm[Hg] Eduarda Lowe PA Work Phone: [facility] 08-11-2024 10:16-0400 Systolic blood pressure 106 mm[Hg] Eduarda Lowe PA Work Phone: [facility] 06-10-2024 10:24-0500 Body height 165.1 cm Lai Alvarado DPM [facility]AC[facility]AS Work Phone: [facility] 06-10-2024 10:24-0500 Body mass index (BMI) [Ratio] 21.47 kg/m2 Lai Alvarado DPM [facility]AC[facility]AS Work Phone: [facility] 06-10-2024 10:24-0500 Body weight 58.51 kg Lai Alvarado DPM [facility]AC[facility]AS Work Phone: [facility] 06-10-2024 10:24-0500 Diastolic blood pressure 72 mm[Hg] Lai Alvarado DPM FACFAS Work Phone: [facility] 06-10-2024 10:24-0500 Heart rate 74 /min Lai Alvarado DPM [facility]AC[facility]AS Work Phone: [facility] 06-10-2024 10:24-0500 Systolic blood pressure 120 mm[Hg] Lai Alvarado DPM [facility]ACFAS Work Phone: [facility] 06-03-2024 09:45-0500 Body height 165.1 cm Eduarda Lowe PA Work Phone: [facility] 06-03-2024 09:45-0500 Body mass index (BMI) [Ratio] 21.47 kg/m2 Eduarda Lowe PA Work Phone: [facility] 06-03-2024 09:45-0500 Body weight 58.51 kg Eduarda Lowe PA Work Phone: [facility] 03-10-2024 11:19-0500 Body height 165.1 cm Lai Alvarado DPM FAC[facility]AS Work Phone: [facility] 03-10-2024 11:19-0500 Body mass index (BMI) [Ratio] 21.3 kg/m2 Lai Alvarado DPM [facility]AS Work Phone: [facility] 03-10-2024 11:19-0500 Body weight 58.06 kg Lai Alvarado DPM [facility]AS Work Phone: [facility] 03-10-2024 11:19-0500 Diastolic blood pressure 72 mm[Hg] Lai Alvarado DPM [facility]AC[facility]AS Work Phone: [facility] 03-10-2024 11:19-0500 Heart rate 88 /min Lai Alvarado DPM [facility]AC[facility]AS Work Phone: [facility] 03-10-2024 11:19-0500 Systolic blood pressure 115 mm[Hg] Lai Alvarado DPM FACFAS Work Phone: [facility] 03-02-2024 12:30-0500 Body temperature 98.1 [degF] Elmer Topete DDS Work Phone: [facility] 03-02-2024 12:30-0500 Diastolic blood pressure 73 mm[Hg] Elmer Topete DDS Work Phone: [facility] 03-02-2024 12:30-0500 Heart rate 113 /min Elmer Topete DDS Work Phone: [employer] 03-02-2024 12:30-0500 Respiratory rate 19 /min [facility]mer [facility]ete [facility]DS [facility] 03-02-2024 12:30-0500 SaO2% (BldA) [Mass fraction] 98 % Elmer Topete [employer] [facility] 03-02-2024 12:30-0500 Systolic blood pressure 113 mm[Hg] Elmer Topete DDS [facility] 03-02-2024 09:11-0500 Body height 162.6 cm Elmer Topete [employer] [facility] 03-02-2024 09:11-0500 Body mass index (BMI) [Ratio] 23.45 kg/m2 Elmer Topete [employer] [facility] 03-02-2024 09:11-0500 Body weight 61.96 kg Elmer Topete DDS [facility] 02-19-2024 11:00-0400 Body height 162.6 cm Kelly Cabello RN [facility] 02-19-2024 11:00-0400 Body mass index (BMI) [Ratio] 23.45 kg/m2 Kelly Cabello RN [facility] 02-19-2024 11:00-0400 Body weight 61.96 kg Kelly Cabello RN [facility] 01-21-2024 11:05-0400 Diastolic blood pressure 72 mm[Hg] Radha Martinez PA Work Phone: [facility] [employer] 01-21-2024 11:05-0400 Heart rate 92 /min Radha Martinez PA Work Phone: [facility] [employer] 01-21-2024 11:05-0400 Respiratory rate 16 /min Radha AMADOR Work Phone: [facility] 01-21-2024 11:05-0400 SaO2% (BldA) [Mass fraction] 96 % Radha AMADOR Work Phone: [facility] 01-21-2024 11:05-0400 Systolic blood pressure 118 mm[Hg] Radha AMADOR Work Phone: [facility] Healthcare Encounters Encounter Date Encounter Type Care Provider Facility Start: 08-25-2024 End: 08-25-2024 Bamboo flowsheet Lai D Dolce DPM FACFAS Work Phone: [facility] Start: 08-25-2024 End: 08-25-2024 Bamboo flowsheet Lai D Dolce DPM FACFAS Work Phone: [facility] Start: 08-25-2024 End: 08-25-2024 Patient encounter procedure Lai D Dolce DPM FACFAS Work Phone: [facility] Comment on above: Onychomycosis (Prima ry Dx); Pain in right toe(s); Pain in left toe(s) Start: 08-25-2024 End: 08-25-2024 ambulatory LAI D DOLCE Not Available Start: 08-11-2024 End: 08-11-2024 Bamboo flowsheet Eduarda Lowe PA Work Phone: [facility] Start: 08-11-2024 End: 08-11-2024 Bamboo flowsheet Eduarda Lowe PA Work Phone: [facility] Start: 08-11-2024 End: 08-11-2024 Office outpatient visit 25 minutes Eduarda Lowe PA Work Phone: [facility] Comment on above: Seizure disorder (CM S/HCC) (Primary Dx); Gait instability; Pseudobulbar affect; Developmental delay; Weakness Start: 08-11-2024 End: 08-11-2024 ambulatory EDUARDA LOWE Not Available Start: 06-10-2024 End: 06-10-2024 Bamboo flowsheet Lai D Dolce DPM [facility]AC[facility]AS Work Phone: [facility] Start: 06-10-2024 End: 06-10-2024 Bamboo flowsheet Lai D Dolce DPM FAC[facility]AS Work Phone: [facility] Start: 06-10-2024 End: 06-10-2024 Patient encounter procedure Lai D Dolce DPM FACFAS Work Phone: [facility] Comment on above: Onychomycosis (Prima ry Dx); Pain in right toe(s); Pain in left toe(s) Start: 06-10-2024 End: 06-10-2024 ambulatory LAI D DOLCE Not Available Start: 06-03-2024 End: 06-03-2024 Office outpatient visit 25 minutes Eduarda AMADOR Work Phone: [facility] Comment on above: Seizure disorder (CM S/HCC) (Primary Dx); Autism (CMS/HCC); Developmental delay; Gait instability Start: 06-03-2024 End: 06-03-2024 ambulatory EDUARDA PRUITT Not Available Start: 03-10-2024 End: 03-10-2024 Bamboo flowsheet Lai D Dolce DPM FACFAS Work Phone: [facility] Start: 03-10-2024 End: 03-10-2024 Bamboo flowsheet Lai D Dolce DPM FACFAS Work Phone: [facility] Start: 03-10-2024 End: 03-10-2024 ambulatory LAI D DOLCE Not Available Start: 03-10-2024 End: 03-10-2024 Office outpatient new 30 minutes Lai D Dolce DPM FACFAS Work Phone: [facility] Comment on above: Venous insufficiency (chronic) (peripheral) (Primary Dx); Onychomycosis; Pain in right toe(s); Pain in left toe(s); Onychocryptosis Start: 03-02-2024 End: 03-02-2024 Patient encounter procedure Elmer Topete DDS Work Phone: [facility] Start: 03-02-2024 End: 03-02-2024 Subsequent hospital visit by physician Elmer Topete DDS Work Phone: [facility] Start: 03-02-2024 End: 03-02-2024 ambulatory ELMER TOPETE Facility:[facility] Start: 02-26-2024 End: 02-26-2024 Telephone encounter Kelly Cabello RN [facility] Pre-Admission Testing Comment on above: Pre-surgical Evaluat ion (DD adult dental restorations 03/02 under [place] at [place]. PAT completed - anesthesia consent. PAT RN spoke to Mary (nurse), confirmed NPO, [place] address, and 0900 arrival time/) Start: 02-24-2024 End: 02-24-2024 Telephone encounter Ashleigh Kaplan RN [facility] Pre-Admission Testing Comment on above: PAT (Anesthesia cons ent obtained) Start: 02-21-2024 End: 02-21-2024 Telephone encounter Ashleigh Kaplan RN [facility] Pre-Admission Testing Comment on above: PAT (Anesthesia cons ent obtained) Start: 02-19-2024 End: 02-19-2024 Nursing evaluation of patient and report Kelly Cabello RN [facility] Pre-Admission Testing Comment on above: Pre-op evaluation (P rimary Dx) Start: 02-19-2024 End: 02-19-2024 Preprocedural examination done Kelly Cabello RN [facility] Start: 02-19-2024 ambulatory UNKNOWN PROVIDER Facili ty:[facility] Start: 02-19-2024 Encounter for other preprocedural examination UNKNOWN PROVIDER [facility] Start: 02-05-2024 End: 02-05-2024 Patient encounter procedure Kelechisophie Ghassan [employer] Work Phone: [facility] Pre-Admission Testing Comment on above: NO SHOW (Primary Dx) Start: 01-21-2024 End: 01-21-2024 Bamboo flowsheet Radha AMADOR Work Phone: [facility] Start: 01-21-2024 End: 01-21-2024 Bamboo flowsheet Radha AMADOR Work Phone: [facility] Start: 01-21-2024 End: 01-21-2024 ambulatory RADHA MARTINEZ Not Available Start: 01-21-2024 End: 01-21-2024 Office outpatient visit 15 minutes Radha AMADOR Work Phone: [facility] Comment on above: Seizure disorder (CM S/HCC) (Primary Dx); Mental deficiency (CMS/HCC); Autism (CMS/HCC); Pseudobulbar affect; Gait instability Start: 12-27-2023 End: 12-27-2023 Admission to same day surgery center Mike Tonnyyasir Weber DDS Work Phone: [facility] Start: 10-01-2023 End: 10-01-2023 ambulatory RADHA MARTINEZ Not Available Start: 08-29-2022 [...] Telephone encounter Martha dill DMD Work Phone: [facility] Comment on above: Dental Start: 04-03-2022 End: 04-04-[address] NATHAN TILLEY Facility:[facility] Start: 03-13-2022 End: 03-18-2022 Patient encounter procedure Martha Coreas DMD Work Phone: [facility] Start: 10-24-2021 End: 10-25-[address] DOCTOR JAVED Facility:[facility] Start: 11-07-2016 End: 11-08-2016 Ambulatory DEFAULT PHYSICIAN Facility:[facility] Procedures Date Procedure Procedure Detail Performing Clinician Start: 03-02-2024 End: 03-02-2024 Urine test visual color cmprsn meths Milton Luna MD Work Phone: Plan of Treatment Date Care Activity Detail Author Start: 2043 Shingles (RZV) Vacci ne (1 of 2) Shingles (RZV) Vaccine (1 of 2) [facility] Start: 12-21-2024 Influenza vaccination Influenz a Vaccine (Season Ended) [facility] Start: 11-03-2024 End: 11-03-2024 Patient encounter procedure 11/03/2024 11:00 AM EDT Procedure Visit [facility] [address] [place] [address] Lai Alvarado, DPM FACFAS [address] [facility] [place] [address] [facility] Start: 08-25-2024 End: 08-25-2024 Patient encounter procedure [facility] Comment on above: Arrived Start: 08-19-2024 End: 08-19-2024 Patient encounter procedure 08/19/2024 11:00 AM EDT Procedure Visit [facility] [address] [place] [id number] Lai Alvarado, DPM FACFAS [address] [facility] [place] [address] [facility] Start: 08-11-2024 End: 08-11-2024 Patient encounter procedure [facility] Comment on above: Arrived Start: 06-10-2024 End: 06-10-2024 Patient encounter procedure [facility] Comment on above: Arrived Start: 05-12-2024 End: 05-12-2024 Patient encounter procedure 05/12/2024 11:20 AM EST Office Visit [facility] [address] [place] [address] Radha Martinez PA [address] [place] [address] [facility] Start: 03-02-2024 End: 03-02-2024 Admission to same day surgery center 03/02/2024 9:14 AM EST - 03/02/2024 10:58 AM EST Surgery [facility] Amb[facility] [address] [place] [address] Elmer Topete DDS [address] [place] [address] DENTAL RESTORATIONS [facility] Comment on above: DENTAL RESTORATIONS Start: 03-02-2024 End: 03-02-2024 DENTAL RESTORATIONS [facility] Start: 03-02-2024 End: 03-02-2024 Admission to same day surgery center 03/02/2024 7:40 AM EST - 03/02/2024 9:24 AM EST Surgery [facility] Ambulatory Surgery [address] [place] [address] Elmer Topete DDS [address] [place] [address] DENTAL RESTORATIONS [facility] Surgery Comment on above: DENTAL RESTORATIONS Start: 03-02-2024 End: 03-02-2024 DENTAL RESTORATIONS DENTAL RESTORATIONS Routine scheduled Caries 03/02/2024 7:40 AM EST [facility] Start: 03-02-2024 Subsequent hospital visit by physician [facility] Ambulatory Surgery Start: 03-02-2024 End: 03-02-2024 Patient encounter procedure [facility] Dentistry Start: 02-05-2024 End: 02-05-2024 Patient encounter procedure 02/05/2024 9:15 AM EDT Office Visit [facility] Pre-Admission Testing [address] [place] [address] Refugio Ferrell, CALENDER FEEDER-PRICING INTERN [address] [facility] [address] [facility] Pre-Admission Testing Start: 01-21-2024 Influenza vaccination Influenza Vacc ine (#1) [facility] Start: 01-21-2024 End: 01-20-2025 Lamotrigine level Lamotrigine level Lab Routine Seizure disorder (CMS/HCC) Expected: 01/21/2024 (Approximate), Expires: 01/20/2025 [facility] Work Phone: Comment on above: Expected: 01/21/2024 (Approximate), Expires: 01/20/2025 Start: 01-21-2024 End: 01-20-2025 Valproic acid level, total Valproic acid level, total Lab Routine Seizure disorder (CMS/HCC) Expected: 01/21/2024 (Approximate), Expires: 01/20/2025 [facility] Comment on above: Expected: 01/21/2024 (Approximate), Expires: 01/20/2025 Start: 12-22-2023 COVID-19 Vaccine ( season) COVID-19 Vaccine ( season) [facility] Start: 12-22-2023 COVID-19 Vaccine ( season) COVID-19 Vaccine ( season) [facility] Start: 12-22-2023 Influenza vaccination Influenza Vacc ine (#1) [facility] Start: 2023 Screening for malign ant neoplasm of cervix [facility] Start: 01-20-2022 Influenza vaccination Influenza [...] Start: 12-21-2013 Annual wellness visit Annual [facility] Visit ([id number]) [facility] Start: 01-02-2012 Hepatitis A (HAV) Vaccine (optional start 19+ years) Hepatitis A (HAV) Vaccine (optional start 19+ years) [facility] Start: 01-02-2012 Hepatitis B vaccination Hepati tis B (HBV) Vaccine (1 of 3 - 19+ 3-dose series) [facility] Start: 2011 Hepatitis C screening Hepatitis C An tibody [facility] Start: 2011 Tetanus + diphtheria + acellular pertussis vaccine (product) Tdap Booster [facility] Start: 01-02-2008 HIV screening HIV Test [facility] Start: 1993 Medicare Annual Wellness (AWV) Medicare Annual Wellness (AWV) [facility] DENTAL RESTORATIONS DENTAL MEENA RATIONS Routine scheduled Caries [facility] Payers Date Payer Category Payer Dental --Stand Alone DENTAL-MEDI CAID [id number] 2014 Unknown 2013 Medicaid [id number]. [id number] 2012 Medicare [id number] [id number]. [id number] 2012 Medicare FFS MEDICARE [id number] 1993 Unknown [id number] 2.16.840.1.080076.3.579.2.7 32 1993 Unknown [id number] 2.16.840.1.842288.3.579.2.7 32 1993 Unknown [id number] 2.16.840.1.431554.3.579.2.7 32 1993 Unknown [id number] 2.16.840.1.550683.3.579.2.1 259 1993 Unknown [id number] 2.16.840.1.106684.3.579.2.1 259 1993 Unknown [id number] 2.16.840.1.051787.3.579.2.1 259 1993 Unknown [id number] 2.16.840.1.673677.3.579.2.1 259 1993 Unknown [id number] 2.16.840.1.966337.3.579.2.1 259 1993 Unknown [id number] 2.16.840.1.966685.3.579.2.1 259 1993 Unknown [id number] 2.16.840.1.760684.3.579.2.1 259 1959 Medicaid [id number] 1959 Medicare [id number] 1954 Unknown [id number] 2.16.840.1.929571.3.579.2.5 93 1954 Unknown [id number] .16.840.1.308790.3.579.2.5 93 1954 Unknown [id number] 2.16.840.1.265920.3.579.2.5 93 1954 Unknown [id number] 2.16.840.1.388553.3.579.2.5 93 1954 Unknown [id number] 2.16.840.1.717516.3.579.2.5 93 1954 Unknown [id number] 2.16.840.1.350809.3.579.2.5 93 1954 Unknown [id number] 2.16.840.1.217625.3.579.2.5 93 1954 Unknown [id number] 2.16.840.1.799369.3.579.2.5 93 Social History Date Type Detail Facility [facility] Start: 1995 [facility] Start: 10-01-2023 End: 08-11-2024 Gender identity Not on file [facility] Start: 08-06-2023 End: 02-19-2024 Tobacco smoking status NDIS Never smoked tobacco [facility] Start: 08-06-2023 End: 02-19-2024 Tobacco use and exposure Smokeless tobacco non-user [facility] Start: 10-01-2023 End: 08-25-2024 Alcoholic beverage intake Lifetime non-drinker (finding) [facility] Start: 10-01-2023 End: 08-11-2024 History of Social function [facility] Start: 07-06-2014 Sex Female (finding) [facility] Clinical Notes 03-13-2022 to 08-25-2024 Lai Alvarado DPM FACFAS - 08/25/2024 11:00 AM PERRY Lentz - 08/11/2024 10:40 AM Julio Alvarado DPM FACSHANAE - 06/10/2024 10:30 AM PERRY Potts - 06/03/2024 10:00 AM EST Note Date & Type Note Facility 08-25-2024 History of Present illness Narrative Images from the original note were not included. patient: Chantel Ascencio : 1995 PCP: Nathan Tilley MD SUBJECTIVE This is a 29 y.o. female that presents today with a chief complaint of painful elongated nails digits 1 through 10. They cause marked limitation in ambulation due to pain and pressure from shoe gear. 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 Pseudobulbar affect Seizure disorder (CMS/HCC) Medications: Current Outpatient Medications: ammonium lactate (Amlactin) 12 % cream, Apply 2 application topically Daily (Patient not taking: Reported on 06/03/2024), Disp: , Rfl: busPIRone (Buspar) 30 MG tablet, Take 30 mg by mouth in the morning and 30 mg in the evening and 30 mg before bedtime., Disp: , Rfl: cloNIDine (Catapres) 0.2 MG tablet, Take 0.2 mg by mouth in the morning and 0.2 mg at noon and 0.2 mg in the evening and 0.2 mg before bedtime., Disp: , Rfl: diazePAM (Valium) 5 MG tablet, Take 1 tablet (5 mg) by mouth 1 time for 1 dose 30 minutes prior to MRI, Disp: 1 tablet, Rfl: 0 divalproex (Depakote) 125 MG EC tablet, Take [...] morning., Disp: , Rfl: levothyroxine (Synthroid, Levoxyl) 200 MCG tablet, Take 200 mcg by mouth in the morning. Take before meals., Disp: , Rfl: levothyroxine (Synthroid, Levoxyl) 25 MCG tablet, Take 25 mcg by mouth in the [...] clean and dry. No ulcerations were noted. Nails 1 through 10 were thickened elongated yellow and crumbly with subungual debris. They were painful to palpation 11071 on the right 10156 on the left. VASC: DP /PT were nonpalpable bilateral. Capillary refill time < 3 seconds Digits 1-5 bilateral NEURO: Mend[place] Cecy 5.07 monofilament was intact B/L. Vibratory sensation was intact B/L Musculoskeletal: Muscle strength was +5 over 5 all intrinsic and extrinsic muscles tested. Radiographs: AP/MO/LAT: Diagnostic ultrasound: ASSESSMENT 1. Onychomycosis 2. Pain in right toe(s) 3. Pain in left toe(s) PLAN The patient was educated on proper foot care as well as the etiology of onychomycosis. I educated the patient on proper shoe gear as well. Today the nails were debrided both in length and thickness 1 through 10. MAURA Salas documented in this encounter [facility] 08-11-2024 History of Present illness Narrative Romelia Ascencio [...] Never Medication Documentation Review Audit Reviewed by Freida Amezquita MA (Baler Operator) on 08/11/24 at 1017 Medication Order Taking? Sig Documenting Provider Last Dose Status ammonium lactate (Amlactin) 12 % cream [id number] Apply 2 application topically Daily Patient not taking: Reported on 06/03/2024 Historical ProviderMD Active busPIRone (Buspar) 30 MG tablet [id number] Take 30 mg by mouth in the morning and 30 mg in the evening and 30 mg before bedtime. Historical MD Jennie Active cloNIDine (Catapres) 0.2 MG tablet [id number] Take 0.2 mg by mouth in the morning and 0.2 mg at noon and 0.2 mg in the evening and 0.2 mg before bedtime. Historical MD Jennie Active divalproex (Depakote) 125 MG EC tablet [id number] Take 500 mg by mouth in the morning and 500 mg in the evening and 500 mg before bedtime. Real Schneider MD Active divalproex (Depakote) 125 MG EC tablet [id number] Take 1,000 mg by mouth at bedtime Do not crush, chew, or split. Real Schneider MD Active famotidine (Pepcid) 40 MG tablet [id number] Take 40 mg by mouth Daily Real Schneider MD Active guanFACINE (Tenex) 2 MG tablet [id number] Take 2 mg by mouth in the morning and 2 mg before bedtime. Real Schneider MD Active lamoTRIgine (LaMICtal) 100 MG tablet [id number] Take 100 mg by mouth at bedtime Real Schneider MD Active lamoTRIgine (LaMICtal) 150 MG tablet [id number] Take 150 mg by mouth in the morning. Real Schneider MD Active levothyroxine (Synthroid, Levoxyl) 200 MCG tablet [id number] Take 200 mcg by mouth in the morning. Take before meals. Real Schneider MD Active levothyroxine (Synthroid, Levoxyl) 25 MCG tablet [id number] Take 25 mcg by mouth in the morning. Take before meals. Historical ProviderMD Active loratadine (Claritin) 10 MG tablet [id number] Take 10 mg by mouth Daily Historical MD Jennie Active Melatonin 3 MG tablet dispersible [id number] Take 3 mg by mouth at bedtime Historical ProviderMD Active norethindrone-ethinyl estradiol (Ortho-Novum, Nortrel) 1-35 MG-MCG tablet [id number] Take 1 tablet by mouth Daily Historical ProviderMD Active paliperidone (Invega) 3 MG 24 hr tablet [id number] Take 3 mg by mouth in the morning and 3 mg before bedtime. Do not crush, chew, or split.. Historical ProviderMD Active polyethylene glycol, PEG, 3350 (Miralax) 17 g packet [id number] Take 17 g by mouth Daily Historical MD Jennie Active QUEtiapine (SEROquel) 200 MG tablet [id number] Take 200 mg by mouth at bedtime Historical MD Jennie Active QUEtiapine (SEROquel) 400 MG tablet [id number] Take 400 mg by mouth at bedtime Historical ProviderMD Active HPI History obtained from caregiver report from [facility] Caregiver from [facility] here with patient today SEIZURE -on lamictal and depakote -denies any missed doses -denies any recent seizure -[facility] continues to use a wheelchair -she is in PT and they states she is declining -she has trouble with loss of balance when she is walking or standing -per therapy notes she struggles to maintain upright posture -her rocking has increased -she is not walking with out assistance -they would like to look into further testing that may be causing her decline ROS Review of Systems Constitutional: Negative for activity change and appetite change. Respiratory: Negative. Musculoskeletal: Positive for gait problem. Neurological: Positive for weakness. Negative for dizziness, tremors and seizures. Objective Visit Vitals BP 106/62 Ht 5' 5 Wt 129 lb BMI [...] triceps, wrist extensors, wrist extensors, wrist flexor, gin inspector strength 5/5. LUE Strength deltoid, biceps, triceps, wrist extensors, wrist extensors, wrist flexor, gin inspector strength 5/5. RLE Strength illopsoas, quadriceps, tibialis [...] but caregiver that she is more fatigued. Labwork 06/05/24 revealed therapeutic medication levels. There is note from PT and staff at [facility] that the patient has had continued loss of balance when standing or walking. She loses her balance with all activities including transfers. Strength is also worsening. If MRI is needed, she would likely need sedation. Dizziness Gait instability Tremor She also experiences chronic gait instability, dizziness, and is high risk for recurrent falls. She has completed vestibular therapy in the past. Carotid ultrasound was very limited due to patient cooperation. For MRI or CTA she would require sedation per [facility]. She continues with balance disturbance and worsening strength per PT at [facility]. Blood work 09/12/2023: Valproic acid level 93.9, [...] contusion. Ambulatory EEG 2018: normal PLAN Labwork reviewed. Progress notes and PT notes reviewed from [facility]. We will look into local options for MRI brain and cervical spine with sedation. We may need to consider [facility]. Continue Lamictal 150mg PO QAM and 100mg PO at bedtime for seizure prevention Continue Depakote 125mg 4 tabs PO TID and 8 tabs PO at bedtime for seizure prevention Continue with fall precautions and assisted transfers and supervision/assistance with ambulation to avoid falls. She is at a high risk of trauma and debility associated with falls and her symptoms are worsening. We will assess for acute change. Follow up after imaging. documented in this encounter [facility] 06-10-2024 History of Present illness Narrative Images from the original note were not included. patient: Chantel Ascencio : 1995 PCP: Nathan Tilley MD SUBJECTIVE This is a 29 y.o. female that presents today with a chief complaint of painful elongated nails digits 1 through 10. They cause marked limitation in ambulation due to pain and pressure from shoe gear. 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 Take before meals., Disp: , Rfl: levothyroxine (Synthroid, Levoxyl) 25 MCG tablet, Take 25 mcg by mouth in the [...] clean and dry. No ulcerations were noted. Nails 1 through 10 were thickened elongated yellow and crumbly with subungual debris. They were painful to palpation 78412 on the right 86104 on the left. VASC: DP /PT were nonpalpable bilateral. Capillary refill time < 3 seconds Digits 1-5 bilateral NEURO: [place] Cecy 5.07 monofilament was intact B/L. Vibratory sensation was intact B/L Musculoskeletal: Muscle strength was +5 over 5 all intrinsic and extrinsic muscles tested. Radiographs: AP/MO/LAT: Diagnostic ultrasound: ASSESSMENT 1. Onychomycosis 2. Pain in right toe(s) 3. Pain in left toe(s) PLAN The patient was educated on proper foot care as well as the etiology of onychomycosis. I educated the patient on proper shoe gear as well. Today the nails were debrided both in length and thickness 1 through 10. MAURA Salas documented in this encounter [facility] 06-03-2024 History of Present illness Narrative Romelia [...] Review Audit Reviewed by Krista Wu MA (Baler Operator) on 06/03/24 at 0955 Medication Order Taking? Sig Documenting Provider Last Dose Status ammonium lactate (Amlactin) 12 % cream [id number] Apply 2 application topically Daily Patient not taking: Reported on 06/03/2024 Real Schneider MD Active busPIRone (Buspar) 30 MG tablet [id number] Take 30 mg by mouth in the morning and 30 mg in the evening and 30 mg before bedtime. Real Schneider MD Active cloNIDine (Catapres) 0.2 MG tablet [id number] Take 0.2 mg by mouth in the morning and 0.2 mg at noon and 0.2 mg in the evening and 0.2 mg before bedtime. Real Schneider MD Active divalproex (Depakote) 125 MG EC tablet [id number] Take 500 mg by mouth in the morning and 500 mg in the evening and 500 mg before bedtime. Real Schneider MD Active divalproex (Depakote) 125 MG EC tablet [id number] Take 1,000 mg by mouth at bedtime Do not crush, chew, or split. Real Schneider MD Active famotidine (Pepcid) 40 MG tablet [id number] Take 40 mg by mouth Daily Real Schneider MD Active guanFACINE (Tenex) 2 MG tablet [id number] Take 2 mg by mouth in the morning and 2 mg before bedtime. Real Schneider MD Active lamoTRIgine (LaMICtal) 100 MG tablet [id number] Take 100 mg by mouth at bedtime Real Schneider MD Active lamoTRIgine (LaMICtal) 150 MG tablet [id number] Take 150 mg by mouth in the morning. Real Schneider MD Active levothyroxine (Synthroid, Levoxyl) 200 MCG tablet [id number] Take 200 mcg by mouth in the morning. Take before meals. Real Schneider MD Active levothyroxine (Synthroid, Levoxyl) 25 MCG tablet [id number] Take 25 mcg by mouth in the morning. Take before meals. Real Schneider MD Active loratadine (Claritin) 10 MG tablet [id number] Take 10 mg by mouth Daily Real Schneider MD Active Melatonin 3 MG tablet dispersible [id number] Take 3 mg by mouth at bedtime Real Schneider MD Active norethindrone-ethinyl estradiol (Ortho-Novum, Nortrel) 1-35 MG-MCG tablet [id number] Take 1 tablet by mouth Daily Historical ProviderMD Active paliperidone (Invega) 3 MG 24 hr tablet [id number] Take 3 mg by mouth in the morning and 3 mg before bedtime. Do not crush, chew, or split.. Historical Provider, Active polyethylene glycol, PEG, 3350 (Miralax) 17 g packet [id number] Take 17 g by mouth Daily Historical ProviderMD Active QUEtiapine (SEROquel) 200 MG tablet [id number] Take 200 mg by mouth at bedtime Historical ProviderMD Active QUEtiapine (SEROquel) 400 MG tablet [id number] Take 400 mg by mouth at bedtime Historical Provider, Active HPI History obtained from caregiver report from [facility] Caregiver from [facility] here with patient today SEIZURE -on lamictal and depakote -denies any missed doses -denies any recent seizure -[facility] continues to use a wheelchair for long [...] triceps, wrist extensors, wrist extensors, wrist flexor, gin inspector strength 5/5. LUE Strength deltoid, biceps, triceps, wrist extensors, wrist extensors, wrist flexor, gin inspector strength 5/5. RLE Strength illopsoas, quadriceps, tibialis [...] or CTA she would require sedation per [facility]. She had two recent falls 07/17/23 and 08/02/23. She was evaluated at [facility]. Lamictal dose was recently decreased, although [...] seizure prevention Continue with fall precautions at [facility] and assisted transfers and supervision/assistance with ambulation to avoid falls. She is at a high risk of trauma and debility associated with falls. Follow up 2 months documented in this encounter [facility] 03-10-2024 History of Present illness Narrative [...] subungual debris. They were painful to palpation 62885 on the right 76254 on the left. VASC: DP /PT were nonpalpable bilateral. Capillary refill time < 3 seconds Digits 1-5 bilateral NEURO: [place] Cecy 5.07 monofilament was intact B/L. Vibratory [...] nails. MAURA Salas documented in this encounter [facility] 03-02-2024 Hospital Discharge instructions Rehana Aguillon RN - 03/02/2024 12:22 PM EST PERIOPERATIVE DISCHARGE/HOME-GOING INSTRUCTIONS ANESTHESIA - GENERAL (ADULT) If a problem arises, you may contact your physician by calling [phone] and asking for the resident energy conservation representative for Dental service. Special Care Needs: Activity: [...] very uncomfortable and can t urinate, call [phone] or come to the emergency room. A [...] home going instructions. documented in this encounter [facility] 03-02-2024 Miscellaneous Notes Brief Operative Note [facility] OR 3 Chantel Ascencio 29 year old female Surgical Contact Serial Number: [id number] Preoperative Diagnosis: Pre-op Diagnosis * Caries [K02.9] Postoperative Diagnosis: * Caries [K02.9] Procedures: Full mouth x-ray [64099] Prophylaxis [72882] Restorations [39396] Floride application [67961] Surgeon(s): Surgeon(s): Elmer Topete DDS Staff: Team Foreman Nurse: Trudi Padilla Energy Conservation Representative: Paula Contreras DDS; Melquiades Christie DDS Anesthesia: General Anesthesiologist: Milton Luna MD DAIRY EQUIPMENT SPECIALIST: Adalgisa Smith APRN-DARSHAN Melt Supervisor: Dayanna Preciado MD Specimen(s): * No specimens [...] were discussed with the patient and/or legal insurance representative. The risks, benefits and alternatives were reviewed. Questions regarding blood transfusions were answered. The patient /or the patient s legal insurance representative agree with the plan for transfusion of blood and/or blood components. Surgical Case Number Data Unavailable Operating Room Data Unavailable Preoperative Diagnosis(es): Caries [k02.9] Surgeon: Dr. Topete Drafting Detailer Surgeon: Melquiades Arias DDS - Paula Contreras [...] the treatment plan included the following: Composite buddhist on tooth #7 surface ML. Amalgam restorations [...] 11:56 AM EST documented in this encounter [facility] 03-02-2024 Surgery Postoperative evaluation and management note Brief Operative Note [facility] OR 3 Chantel Ascencio 29 year old female Surgical Contact Serial Number: [id number] Preoperative Diagnosis: Pre-op Diagnosis * Caries [K02.9] Postoperative Diagnosis: * Caries [K02.9] Procedures: Full mouth x-ray [90098] Prophylaxis [21192] Restorations [37360] Floride application [55313] Surgeon(s): Surgeon(s): Elmer Topete DDS Staff: Team Foreman Nurse: Trudi Padilla Energy Conservation Representative: Paula Contreras DDS; Melquiades Christie DDS Anesthesia: General Anesthesiologist: Milton Luna MD DAIRY EQUIPMENT SPECIALIST: Adalgisa Smith APRN-DARSHAN Melt Supervisor: Dayanna Preciado MD Specimen(s): * No specimens [...] Topete DDS at 03/02/2024 11:55 AM EST [facility] 03-02-2024 History and physical note Images from the original note were not included. Surgical History and Physical [facility] Ambulatory Surgery [address] [place] [address] Name: Chantel Ascencio : 1995 29 year old CSN: [id number] Attending: Elmer Topete DDS Date of Admission: 03/02/2024 8:38 AM Room/Bed: [facility] OR/NONE Planned Procedure: Procedure(s): DENTAL RESTORATIONS [...] surgical history indicates: EXTRACTION, TOOTH (09/15/2014) Procedure: [place] teeth; Surgeon: Bradley Goodwin DDS; Location: PERIOPERATIVE [...] or any previous visit (from the past 44472 hours). BMP (last 3 years, up to [...] Topete DDS at 03/02/2024 11:48 AM EST [facility] Work Phone: 03-02-2024 Note Surgical History and Physical [facility] Ambulatory Surgery [address] [place] [address] Name: Chantel Ascencio : 1995 29 year old CSN: [id number] Attending: Elmer Topete DDS Date of Admission: 03/02/2024 8:38 AM Room/Bed: [facility] OR/NONE Planned Procedure: Procedure(s): DENTAL RESTORATIONS [...] surgical history indicates: EXTRACTION, TOOTH (09/15/2014) Procedure: [place] teeth; Surgeon: Bradley Goodwin DDS; Location: PERIOPERATIVE [...] or any previous visit (from the past 97914 hours). BMP (last 3 years, up to [...] Melquiades Stewart DDS 03/02/24 9:38 AM [facility] 03-02-2024 History and physical note Surgical [...] Topete DDS at 03/02/2024 11:48 AM EST [facility] 03-02-2024 Note Surgical Attestation : I have [...] Melquiades Stewart DDS 03/02/2024 9:38 AM [facility] 03-02-2024 Progress note Formatting of t his note is different from the original. Blood Attestation: ATTESTATION OF INFORMED CONSENT FOR BLOOD: The transfusion of blood and/or blood components were discussed with the patient and/or legal insurance representative. The risks, benefits and alternatives were reviewed. Questions regarding blood transfusions were answered. The patient /or the patient s legal insurance representative agree with the plan for transfusion of blood and/or blood components. [facility] Work Phone: 03-02-2024 History of Present illness Narrative ----- Saturday, March 02, 2024 at 11:38:59 AM ----- ----- Provider: Pradip - Elmer Rebolledo DDS -- Clinic: [facility] ----- [place] notes, [place] is ready for tx [place]. X-Rays look good, few cavities found and confirmed clinically. restos completed. OP Note by aPula Contreras DDS at 03/01/2024 6:14 PM Author: Paula Contreras DDS Service: Dentistry Author Type: Resident Filed: 03/02/2024 11:56 AM Date of Service: 03/01/2024 6:14 PM Note Type: OP Note Status: Cosign Needed Metal Cutter: Paula Contreras DDS (Resident) Cosign Required: Yes Expand All Collapse All Surgical Case Number Data Unavailable Operating Room Data Unavailable Preoperative Diagnosis(es): Caries [k02.9] Surgeon: Dr. Topete Drafting Detailer Surgeon: Melquiades Arias DDS - Paula Contreras [...] the treatment plan included the following: Composite buddhist on tooth #7 surface ML. Amalgam restorations [...] ----- Provider: Pradip Rebolledo DDS -- Clinic: [facility] ----- documented in this encounter [facility] 03-01-2024 Surgery Surgical operation note Surgical Case Number Data Unavailable Operating Room Data Unavailable Preoperative Diagnosis(es): Caries [k02.9] Surgeon: Dr. Topete Drafting Detailer Surgeon: Melquiades Arias DDS - Paula Contreras [...] the treatment plan included the following: Composite buddhist on tooth #7 surface ML. Amalgam restorations [...] Topete DDS at 03/02/2024 11:56 AM EST [facility] 03-01-2024 Note Surgical Attestation : I have reviewed the patient's History and Physical Examination. I have personally seen and evaluated the patient, repeating cabrera portions. There is no significant interval change. Surgery is still indicated. Yes Consent reviewed and signed by patient/family: Yes Operative site verified and marked: Verified but not marked Paula Contreras DDS 03/01/2024 6:10 PM [facility] 02-24-2024 Telephone encounter Note Anesthesia consent obtained and scanned into [employer]. Scheduled for surgery 03/02/2024. [facility] 02-24-2024 Miscellaneous Notes Anesthesia consent obtained and scanned into [employer]. Scheduled for surgery 03/02/2024. documented in this encounter [facility] 02-21-2024 Telephone encounter Note Anesthesia consent obtained and scanned into [employer]. Scheduled for surgery 03/02/2024. [facility] 02-21-2024 Miscellaneous Notes Anesthesia consent obtained and scanned into [employer]. Scheduled for surgery 03/02/2024. documented in this encounter [facility] 02-19-2024 Instructions Kelly Cabello RN [...] otherwise contacted. ? Expect a call from [facility] one business day prior to surgery for [...] your Preparing for Your Surgery/Procedure booklet or [email or web address] if you have questions. Contact the Pre-Admission Testing department at [phone] or your surgeon's office with any questions [...] stay with you after surgery. Please call [facility] if you need transportation assistance or have concerns about going home [phone]. ? PLEASE BE ON TIME. A late arrival may result in the cancellation/ delay of your surgery. Thank you for choosing [facility]; it is our pleasure to care for you documented in this encounter [facility] 02-19-2024 Evaluation note Telephone History Chantel Ascencio, [id number] 02/19/2024 Patient was identified by name and date of via Ivon, caregiver. Needs: Physical, Neck Circumference, BHCG, and ED on DOS. Note: OSH records/labs scanned to social media intern. If the patient becomes ill prior to procedure or surgery, they are to call their provider or surgeon's office directly. 29 year old 136.6 lbs 5' 4 Date of Surgery: 03/02 Surgeon: Yoselyn Type of Surgery: DENTAL RESTORATIONS HISTORY OF PRESENT ILLNESS: telephone history for the upcoming surgery at [facility], [address] [place], enter through the [place] entrance doors. 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 Fluticasone Propionate (FLONASE NASAL) Eddy into each nostril. Selenium (SELENIMIN ORAL) Take [...] otherwise contacted. ? Expect a call from [facility] one business day prior to surgery for [...] your Preparing for Your Surgery/Procedure booklet or [email or web address] if you have questions. Contact the Pre-Admission Testing department at [phone] or your surgeon's office with any questions [...] stay with you after surgery. Please call [facility] Social Work if you need transportation assistance or have concerns about going home [phone]. ? PLEASE BE ON TIME. A late arrival may result in the cancellation/ delay of your surgery. Thank you for choosing [facility]; it is our pleasure to care for you Kelly Cabello RN Time Spent Performing this Telephone History: 48 with follow-up [place]: [facility] 02-19-2024 Miscellaneous Notes Telephone History Chantel Ascencio, [id number] 02/19/2024 Patient was identified by name and [...] telephone history for the upcoming surgery at [facility], [address] [place], enter through the [place] entrance doors. 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 Fluticasone Propionate (FLONASE NASAL) Eddy into each nostril. Selenium (SELENIMIN ORAL) Take [...] otherwise contacted. ? Expect a call from [facility] one business day prior to surgery for [...] your Preparing for Your Surgery/Procedure booklet or [email or web address] if you have questions. Contact the Pre-Admission Testing department at [phone] or your surgeon's office with any questions [...] stay with you after surgery. Please call [facility] Social Work if you need transportation assistance or have concerns about going home [phone]. ? PLEASE BE ON TIME. A late arrival may result in the cancellation/ delay of your surgery. Thank you for choosing [facility]; it is our pleasure to care for you Kelly Cabello RN Time Spent Performing this Telephone History: 48 with follow-up [facility]: documented in this encounter [facility] 02-19-2024 Miscellaneous Notes Telephone History Chantel Ascencio, [id number] 02/19/2024 Patient was identified by name and date of via Ivon, caregiver. Needs: Physical, Neck Circumference, BHCG, and ED on DOS. Note: OSH records/labs scanned to social media intern. If the patient becomes ill prior to procedure or surgery, they are to call their provider or surgeon's office directly. 29 year old 136.6 lbs 5' 4 Date of Surgery: 03/02 Surgeon: Yoselyn Type of Surgery: DENTAL RESTORATIONS HISTORY OF PRESENT ILLNESS: telephone history for the upcoming surgery at [facility], [address] [facility], enter through the [facility] doors. 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 norethindrone-ethinyl estradiol (Nortrel 1, 21,) 1-35 MG-MCG tablet [...] Take by mouth. Fluticasone Propionate (FLONASE NASAL) Eddy into each nostril. Selenium (SELENIMIN ORAL) Take [...] otherwise contacted. ? Expect a call from [facility] one business day prior to surgery for [...] your Preparing for Your Surgery/Procedure booklet or [email or web address] if you have questions. Contact the Pre-Admission Testing department at [phone] or your surgeon's office with any questions [...] stay with you after surgery. Please call [facility] [employer] [facility] if you need transportation assistance or have concerns about going home [phone]. ? PLEASE BE ON TIME. A late arrival may result in the cancellation/ delay of your surgery. Thank you for choosing [facility]; it is our pleasure to care for you Kelly Cabello RN Time Spent Performing this Telephone History: 48 with follow-up [facility]: documented in this encounter [facility] 10-21-2023 History and physical note Images from the original note were not included. Surgical History and Physical [facility] Ambulatory Surgery [address] [place] [address] Name: Chantel Ascencio : 1995 29 year old CSN: [id number] Attending: Elmer Topete DDS Date of Admission: 03/02/2024 8:38 AM Room/Bed: [facility] OR/NONE Planned Procedure: Procedure(s): DENTAL RESTORATIONS [...] surgical history indicates: EXTRACTION, TOOTH (09/15/2014) Procedure: [place] teeth; Surgeon: Bradley Goodwin DDS; Location: PERIOPERATIVE [...] or any previous visit (from the past 22779 hours). BMP (last 3 years, up to [...] 11:48 AM EST documented in this encounter [facility] 04-30-2022 Miscellaneous Notes Bina from [facility] calling in. She wanted to know where the pt was at on the OR wait list. E-mail sent to Connie E-mail sent 04/30/22 documented in this encounter [facility] 04-30-2022 Telephone encounter Note Bnia from [facility] calling in. She wanted to know where the pt was at on the OR wait list. E-mail sent to Connie E-mail sent 04/30/22 [facility] History of Present illness Narrative ----- Sunday, March 13, 2022 at 11:58:40 AM ----- ----- Provider: [id number] - Martha Coreas DMD -- Clinic: [place] ----- OR EVALUATION Patient presents for evaluation [...] available. Legal Guardian: Toshia Ascencio Phone #: [phone] NOTE: Patient had a hard time leaning her head back, but allowed me to look. Patient not indicating she is in any pain. #8 is very discolored - most likely will need RCT treatment. Gingiva very red and irritated. Caregiver did not know who patient's guardian was or contact information, looked it up in [employer]. Next Visit: OR documented in this encounter [facility] Evaluation note Diagnosis Caries- Primary Unspecified dental [...] [facility] Diagnosis Onychomycosis- Primary Dermatophytosis of nail Pain in right toe(s) Pain in left toe(s) [facility] Diagnosis Seizure disorder (CMS/HCC)- Primary Unspecified epilepsy without mention of intractable epilepsy Gait instability Abnormality of gait Pseudobulbar affect Developmental delay Unspecified delay in development Weakness Other malaise and fatigue [facility] Diagnosis Onychomycosis- Primary Dermatophytosis of nail Pain in right toe(s) Pain in left toe(s) [facility] N[facility]* Auth/Cert (Routine) Specialty Diagnoses / Procedures Referred By Alessandro azul Referred To Contact Ambulatory Surgery Diagnoses Caries Caries [K02.9] Procedures INTERDENTAL FIXATION. UNLISTED PROCEDURE, DENTOALVEOLAR STRUCTURES DENTAL RESTORATIONS Elmer Topete, DDS [address] [place] [address] Phone: tel: fax: [email or web address] [address] Phone: tel: Referral ID Status Reason Start Date Expiration Date Visits Re quested Visits Authorized [id number] 3 3 [facility] Summary Purpose Family History No [...] Caries Elmer Topete, DDS [address] [place] [address] [facility] PRE ADMISSION TESTING [address] [place] [address] Referral ID Status Reason Start Date Expiration Date V isits Requested Visits Authorized [id number] Authorized 12/27/2023 12/26/2024 1 1 Scheduling Instructions Your surgical team will reach out to you to schedule a pre-admission testing appointment. Question Answer Reason for consult? Recommended PAT Risk Score Additional Source Comments INFORMATION SOURCE (unrecogn ized section and content) DATE CREATED AUTHOR 10/16/2017 [facility] DATE CREATED AUTHOR AUTHOR'S ORGANIZ ATION 09/02/2022 [employer] [facility] DATE CREATED AUTHOR AUTHOR'S ORGANIZ ATION 03/10/2024 [facility] DATE CREATED AUTHOR AUTHOR'S ORGANIZ ATION 08/28/2024 [facility] EPIC Reason for Visit (unrecogniz ed section and content) Reason Onset Date Comments Dental 04/30/2022 Reason Comments Seizures Reason Onset Date Comments PAT 02/21/2024 Anesthesia conse nt obtained Reason Onset Date Comments PAT 02/24/2024 Anesthesia conse nt obtained Reason Onset Date Comments Pre-surgical Evaluation 02/26/2024 DD adult dental restorations 03/02 under [place] at [place]. PAT completed - anesthesia consent. PAT RN spoke to Mary (nurse), confirmed O, [place] address, and 0900 arrival time Reason Comments Toenail Problem RT grt nail fungal Reason Comments Toenail Care Non DM nail care Care Teams (unrecognized sec tion and content) Returned Goods Receiving Clerk Relationship Specialty Start Date End Date Unallocated, Frank Schneider MD [address] [place] [address] PCP - General Family Medicine 07/09/23 Kris Mcguire MD [address] [place] [address] Referring Physician Neurology 07/09/23 Returned Goods Receiving Clerk Relationship Specialty Start Date End Date Unallocated, Frank Schneider MD [address] [place] [address] PCP - General Family Medicine 07/09/23 Kris Mcguire MD [address] [place] [address] Referring Physician Neurology 07/09/23 Returned Goods Receiving Clerk Relationship Specialty Start Date End Date Nathan Tilley MD [address] [place] [address] PCP - General Family Medicine 03/10/24 Kris Mcguire MD [address] [place] [address] Referring Physician Neurology 07/09/23 Returned Goods Receiving Clerk Relationship Specialty Start Date End Date Nathan Tilley MD [facility] [address] [place] [address] PCP - General Family Medicine 03/10/24 Kris Mcguire MD [address] [place] [address] Referring Physician Neurology 07/09/23 Returned Goods Receiving Clerk Relationship Specialty Start Date End Date Nathan Tilley MD [address] [place] [address] PCP - General Family Medicine 03/10/24 Kris Mcguire MD [address] [place] [address] Referring Physician Neurology 07/09/23 Returned Goods Receiving Clerk Relationship Specialty Start Date End Date Nathan Tilley MD [address] [place] [address] PCP - General Family Medicine 03/10/24 Kris Mcguire MD [address] [place] [address] Referring Physician Neurology 07/09/23 Returned Goods Receiving Clerk Relationship Specialty Start Date End Date Nathan Tilley MD [facility] [address] [place] [address] PCP - General Family Medicine 03/10/24 Kris Mcguire MD [address] [place] [address] Referring Physician Neurology 07/09/23 Returned Goods Receiving Clerk Relationship Specialty Start Date End Date Nathan Tilley MD [address] [place], [place] [address] [address] [place] [address] PCP - General Family Medicine 03/10/24 Kris Mcguire MD Referring Physician Neurology 07/09/23 Returned Goods Receiving Clerk Relationship Specialty Start Date End Date Nathan Tilley MD [facility] [address] [place] [address] PCP - General Family Medicine 03/10/24 Kris Mcguire MD Referring Physician Neurology 07/09/23 PRN Active and [...] BE BASED ON THE PRIMARY CLINICAL RECORDS. [facility]. provides no warranty or guarantee of the accuracy or completeness of information in this document.
[2024-09-22 10:46] LABS: Free T4 1.03 ng/dL (0.76-1.46)
== END 2024-09-22 07:00 | disposition home or self-care (01) ==
LOC: LAB 07:00
PROVIDERS: PCP Family Medicine; Visit Provider Internal Medicine Endocrinology, Diabetes & Metabolism
DX: E03.9 Hypothyroidism, unspecified (principal)
CPT/HCPCS: 36415; 84439; 84443

== ENCOUNTER 2024-10-29 06:53 | Outpatient (OUT) | payer MEDICARE, MEDICAID, SELFPAY ==
--- OUTSIDE RECORDS SUMMARY | 2024-10-29 06:56 | XMS_ITS | CCD ---
Author Organization [facility] Care Team Providers Care Television Parts Tester Name Role Phone PHYSICIAN, DEFAULT Unavailable Unavailable PHYSICIAN, DEFAULT Unavailable Unavailable PB BARTH Unavailable Unavailable Unavailable Primary Care Provider Unavailabl e IYER, DR NATHAN Craft Admitting Unavailable IYER, DR NATHAN Craft Attending Unavailable IYER, DR NATHAN Craft Primary Care Unavailable IYER, DR NATHAN Craft Consulting Unavailable MISC, DR HERNANDEZ Admitting Unavailable MISC, DR HERNANDEZ Attending Unavailable IYER, DR NATHAN Craft Primary Care Unavailable MISC, DR HERNANDEZ Consulting Unavailable IYER, DR NATHAN Craft Admitting Unavailable IYER, DR NATHAN Craft Attending Unavailable IYER, DR NATHAN Craft Primary Care Unavailable IYER, DR NATHAN Craft Consulting Unavailable MISC, DR HERNANDEZ Admitting Unavailable MISC, DR HERNANDEZ Attending Unavailable REQUEST, DR OROZCO LISTED Primary Care Unavaila ble MISC, DR HERNANDEZ Consulting Unavailable ZIEBER, DR KRIS White Consulting Unavailable IYER, DR NATHAN Craft Admitting Unavailable IYER, DR NATHAN Craft Attending Unavailable REQUEST, DR OROZCO LISTED Primary Care Unavaila ble IYER, DR NATHAN Craft Consulting Unavailable HAY ., DR BLOCK Consulting Unavailable HAY ., DR BLOCK Admitting Unavailable HAY ., DR BLOCK Attending Unavailable IYER, DR NATHAN Craft Primary Care Unavailable REQUEST, DR OROZCO LISTED Primary Care Unavaila ble IYER, DR NATHAN Craft Admitting Unavailable IYER, DR NATHAN Craft Attending Unavailable IYER, DR NATHAN Craft Consulting Unavailable MISC, DR HERNANDEZ Admitting Unavailable MISC, DR HERNANDEZ Attending Unavailable REQUEST, DR OROZCO LISTED Primary Care Unavaila ble WEST, DR MATILDE Stanley Consulting Unavailable MISC, DR HERNANDEZ Consulting Unavailable IYER, NATHAN Arce Unavailable IYER, NATHAN Annitting Unavailable Unavailable Primary Care Provider Unavailabl e Andersonlocattadeo OLSON, Noms Provider Primary Care Provi roselyn Kris Mcguire MD Unavailable Unallocated , [facility] Provider Primary Care Jaspreet dempsey ELMER TOPETE Attending Unavailable PROVIDER, UNKNOWN Admitting Unavailable PROVIDER, UNKNOWN Admitting Unavailable PROVIDER, UNKNOWN Attending Unavailable ELMER TOPETE Admitting Unavailable ELMER TOPETE Attending Unavailable Nathan Iyer MD Primary Care Provider Kris Mcguire MD EDUARDA DE ANDA Attending Unavailable LAI ALVARADO Attending Unavailable HARJIT, RADHA Attending Unavailable HARJIT, RADHA Attending Unavailable ADILSON, EDUARDA Attending Unavailable LAI ALVARADO Attending Unavailable CHRISTIANO, LAI Valentine Attending Unavailable Adilson, Eduarda Attending Unavailable Eduarda De Anda Admitting Unavailable Nathan Iyer Primary Care Unavailable Allergies Allergy Classification Reported Allergen(s) Allergy Type Date of Onset Reaction(s) Facility (20 sources) Ethosuximide; Translations: [ETHOSUXIMIDE] Drug Allergy 09-15-2014 [facility] (1 source) Allopurinol Drug Allergy 07-16-2013 [facility] (1 source) Ethosuximide Drug Allergy 07-16-2013 [facility] (18 sources) linaclotide; Translations: [LINACLOTIDE] Drug Allergy 08-06-2023 [facility] Healthcare Medications Current Medications Medication Drug [...] (12 sources) Corticosteroid Fluticasone Propionate (FLONASE NASAL) [place] into each nostril. Suspended Fluticasone Prop ionate (FLONASE NASAL) [place] into each nostril. Active Fluticasone Prop ionate (FLONASE NASAL) [place] into each nostril. 0 Active guanFACINE 2 [...] by mouth daily. Active polyethylene glycol 3350 59164 mg powder for oral solution (20 sources) [...] ORAL) Take by mouth. 0 Active sennosides, long term 15 mg oral tablet (12 sources) take [...] 07-21-2022 [facility] Other aftercare (5 sources) Other fdc (current) drug therapy; Translations: [OTH FILM OR VIDEOTAPE EDITOR CURRENT DRUG THERAPY] Onset: 04-03-2022 Epis[facility] Other [...] Interpretation Reference Range Facility Anesthesia Postprocedure Estelle luationon 03-02-2024 [employer] Authentication Interface Message Text Anesthesia Postoperative Assessment: [...] EVENTS: No notable events documented. 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 Scheduled for surgery 03/02/2024. ) Questions answered / anesthesia plan accepted ( Anesthesia consent obtained and scanned into [facility]. Scheduled for surgery 03/02/2024. ) Past medical history, surgical history, allergies, and medications reviewed. Pertinent laboratory tests, EKG, imaging, and consults reviewed and I have personally seen and evaluated the patient, repeating cabrera portions of the history and physical examination. Attestation: Anesthesia options were discussed with the patient and/or legal technical sales representative. The risks, benefits and alternatives were reviewed. Questions regarding anesthesia were answered. Patient and/or legal technical sales representative knows such anesthetics and procedures may be performed by Resident physicians, Certified Anesthesiologist Assistants, or Certified Nurse Anesthetists under the supervision of a physician. The patient /or the patient's legal technical sales representative agree with the plan for anesthesia. Comment: Anesthesia consent obtained and scanned into [facility]. Scheduled for surgery 03/02/2024. MHPATFORM Normal [facility] Anesthesia Transfer Of Careo n 03-02-2024 House[employer] Authentication Interface Message Text Patient taken to [...] surgical history indicates: EXTRACTION, TOOTH (09/15/2014) Procedure: [place] teeth; Surgeon: Bradley Goodwin DDS; Location: PERIOPERATIVE SERVICES; Service: Oral EUA, ORAL (09/15/2014) Procedure: EUA, ORAL; Surgeon: Bradley Goodwin DDS; Location: PERIOPERATIVE SERVICES; Service: Oral Allergies: Linzess [linaclotide] and Zarontin [ethosuximide] Basic Operating Room Facts: Surgeon(s): Elmer Topete DDS Anesthesiologist: Milton Luna MD HEALTH SCREENER: Adalgisa Smith APRN-DARSHAN Assembler Flexible Leads: Dayanna Preciado MD DENTAL RESTORATIONS (Right: Mouth) [...] was received. Adalgisa Smith, CHERELLE-DARSHAN Normal [facility] Blood Attestationon 03-02-20 [facility] Authentication Interface Message Text Blood Attestation: ATTESTATION OF INFORMED CONSENT FOR BLOOD: The transfusion of blood and/or blood components were discussed with the patient and/or legal technical sales representative. The risks, benefits and alternatives were reviewed. Questions regarding blood transfusions were answered. The patient /or the patient's legal technical sales representative agree with the plan for transfusion of blood and/or blood components. Normal [facility] Brief Operative Noteon 03-02 [facility] Authentication Interface Message Text Brief Operative Note PHE OR 3 Chantel Ascencio 29 year old female Surgical Contact Serial Number: [id number] Preoperative Diagnosis: Pre-op Diagnosis * Caries [K02.9] Postoperative Diagnosis: * Caries [K02.9] Procedures: Full mouth x-ray [06093] Prophylaxis [71864] Restorations [44464] Floride application [59699] Surgeon(s): Surgeon(s): Elmer Topete DDS Staff: Senior Cost Analyst Nurse: Trudi Padilla Employment Consultant: Paula Contreras DDS; Melquiades Christie DDS Anesthesia: General Anesthesiologist: Milton Luna MD HEALTH SCREENER: Adalgisa Smith, HOSPITALITY WORKERS-DARSHAN Assembler Flexible Leads: Dayanna Preciado MD Specimen(s): * No specimens [...] be admitted as an inpatient? No Dr. Toepte was present in the OR for the critical portion of the procedure and procedure sign-out. Signed by Paula Contreras DDS 03/02/2024 11:48 AM Normal [facility] Progress Noteson 03-02-2024 [employer] Authentication Interface Message Text ----- Saturday, March 02, 2024 at 11:38:59 AM ----- ----- Provider: Pradip Rebolledo DDS -- Clinic: [facility] ----- [place] notes, pt is ready for tx [place]. X-Rays look good, few cavities found and confirmed clinically. restos completed. OP Note by Paula Contreras DDS at 03/01/2024 6:14 PM Author: Paula Contreras DDS Service: Dentistry Author Type: Resident Filed: 03/02/2024 11:56 AM Date of Service: 03/01/2024 6:14 PM Note Type: OP Note Status: Cosign Needed Environmental Educator: Paula Contreras DDS (Resident) Cosign Required: Yes Expand All Collapse All Surgical Case Number Data Unavailable Operating Room Data Unavailable Preoperative Diagnosis(es): Caries [k02.9] Surgeon: Dr. Topete Construction Checker Surgeon: Melquiades Arias DDS - Paula Contreras [...] the treatment plan included the following: Composite yarsani on tooth #7 surface ML. Amalgam restorations [...] ----- Provider: Pradip Rebolledo DDS -- Clinic: [facility] ----- Normal [facility] URINE HCG-IN OFFICEon 2023 HCG ( test) Ql (U) Negative Negative [facility] Negative Internal Control Negative Negative [facility] Positive Internal Control Positive Positive [facility] URINE HCG-IN OFFICEOrdered B y: Aure Naomi on 03-02-2024 HCG ( test) Ql (U) Negative Negative [facility] Interpretation and review of laboratory results Normal [facility] Negative Internal Control Negative Negative [facility] Positive Internal Control Positive Positive [facility] OP Noteon 03-01-2024 House[employer] Authentication Interface Message Text Surgical Case Number Data Unavailable Operating Room Data Unavailable Preoperative Diagnosis(es): Caries [k02.9] Surgeon: Dr. Topete Construction Checker Surgeon: Melquiades Arias DDS - Paula Contreras [...] the treatment plan included the following: Composite yarsani on tooth #7 surface ML. Amalgam restorations [...] Contreras DDS 03/01/2024 6:15 PM Normal [facility] Telephone Encounteron 2023 [facility] Authentication Interface Message Text Anesthesia consent obtained and scanned into [facility]. Scheduled for surgery 03/02/2024. Normal [facility] Telephone Encounteron 2023 [facility] Authentication Interface Message Text Anesthesia consent obtained and scanned into [facility]. Scheduled for surgery 03/02/2024. Normal [facility] PAT Call Historyon [employer] Authentication Interface Message Text Telephone History Chantel Ascencio, [id number] 02/19/2024 Patient was identified by name and date of via Ivon, caregiver. Needs: Physical, Neck Circumference, BHCG, and ED on DOS. Note: OSH records/labs scanned to [facility]. If the patient becomes ill prior to procedure or surgery, they are to call their provider or surgeon's office directly. 29 year old 136.6 lbs 5' 4 Date of Surgery: 03/02 Surgeon: Yoselyn Type of Surgery: DENTAL RESTORATIONS HISTORY OF PRESENT ILLNESS: telephone history for the upcoming surgery at [facility], [address] [place], enter through the [place] entrance doors. GRZEGORZ-TIKI Row Name 02/19/24 1204 History of sleep apnea? 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 norethindrone-ethin yl estradiol (Nortrel 135, 21,) 1-35 MG-MCG tablet Take 1 Tablet [...] Take by mouth. Fluticasone Propionate (FLONASE NASAL) [place] into each nostril. Selenium (SELENIMIN ORAL) Take by mouth. Sennosides (SENNA) 15 MG tablet Take 1 Tab by mouth daily as needed for Constipation. topiramate (TOPIRAGEN) 25 MG tablet Take 75 mg by mouth 2 times daily (more content not included)... Normal [facility] Progress Noteson 02-17-2024 House[employer] Authentication Interface Message Text Patient PAT has be rescheduled for 02/19/2024--for OR visit 03/02/2024----- Saturday, February 17, 2024 at 10:10:00 AM ----- ----- Provider: LESLIE Claros [facility] -- Clinic: [facility] ----- Normal [facility] Progress Noteson 02-05-2024 House[employer] Authentication Interface Message Text Patient was no show for PAT today at [facility] surgery is scheduled 03/02-Contact Concetta ramoswiconisco --advised if PAT needs to reschedule or patient will be removed from OR----- Monday, February 05, 2024 at 4:24:04 PM ----- ----- Provider: LESLIE Claros [facility] Admin -- Clinic: [facility] ----- Normal [facility] Progress Noteson 01-08-2024 [facility] Authentication Interface Message Text Parent/guardian/pat ient was contacted for PAT AND OR Sedation scheduled -- confirmed information with patient, also informed mom importance of going to PAT appointment -- if missed, IV Sedation will be cancelled, and you will be placed back on wait list 03/02/24----- Monday, January 08, 2024 at 2:14:12 PM ----- ----- Provider: LESLIE Claros [facility] -- Clinic: [facility] ----- Normal [facility] Progress Noteson 12-30-2023 Household [employer]ores Authentication Interface Message Text Attempted to contact patient/ parent / guardian at telephone number listed -- no answer, left voicemail message requesting a return call.----- Saturday, December 30, 2023 at 2:26:35 PM ----- ----- Provider: THOUSTON4 - Candace Claros, Dental[facility] Admin -- Clinic: [facility] ----- [facility] Free T4on 01-09-2023 Free T4 [Mass/Vol] 1.12 ng/dL Normal 0.58-1.64 [facility] Comment on above: Performed By: #### 2 [id number], [id number] #### [facility] [address] [place] [address] Physician Orderon 01-09-2023 Physician Order [id number] Normal [facility] TSHon 01-09-2023 TSH Qn 4.74 m[IU]/L Normal 0.34-5.60 [facility] Comment on above: Performed By: #### 2 [id number], [id number] #### [facility] [address] [place] [address] FREE T4on 08-29-2022 Free T4 [Mass/Vol] 1.76 ng/dL Critically high 0.76-1.46 [facility] Comment on above: Performed By: #### F T4 #### [facility] [address] [place] [address] Dr. Volodymyr Paez TSHon 08-29-2022 TSH Qn m[IU]/L Critically low 0.358-3.740 [facility] Comment on above: Performed By: #### T SH #### [facility] [address] [place] [address] Dr. Volodymyr Paez CULTURE URINEon 08-24-2022 CULTURE [...] S F Tetracycline >=16 R F Normal [facility] Comment on above: Performed By: #### T SH, CMP #### [facility] [address] [address] [address] Volodymyr Paez UA (CLEAN/CATCH) MILLING OPERATOR/MICRO I F IND.on 08-21-2022 Bilirubin Ql (U) Negative Normal NEGATIVE [facility] Comment on above: Performed By: #### U ACSIND, UMICRO #### [facility] [address] [address] [address] Volodymyr Paez Clarity (U) CLEAR Normal CLEAR [facility] Comment on above: Performed By: #### U ACSIND, UMICRO #### [facility] [address] [address] [address] Volodymyr Paez Color (U) LT. YELLOW Normal YELLOW [facility] Comment on above: Performed By: #### U ACSIND, UMICRO #### [facility] [address] [place] [address] Dr. Volodymyr Paez Glucose Ql (U) Negative Normal NEGATIVE [facility] Comment on above: Performed By: #### U ACSIND, UMICRO #### [facility] [address] [address] [address] Volodymyr Paez Hemoglobin Ql (U) Negative Normal NEGATIVE [facility] Comment on above: Performed By: #### U ACSIND, UMICRO #### [facility] [address] [address] [address] Volodymyr Paez Ketones Ql (U) Negative Normal NEGATIVE [facility] Comment on above: Performed By: #### U ACSIND, UMICRO #### [facility] [address] [address] [address] Volodymyr Paez LEUKOCYTES SMALL Abnormal NEGATIVE [facility] Comment on above: Performed By: #### U ACSIND, UMICRO #### [facility] [address] [address] [address] Volodymyr Paez Nitrite Ql (U) Negative Normal NEGATIVE [facility] Comment on above: Performed By: #### U ACSIND, UMICRO #### [facility] [address] [address] [address] Volodymyr Paez pH (U) 7.0 [pH] Normal 5-9 [facility] Comment on above: Performed By: #### U ACSSHAHEEN UMICRO #### [facility] [address] [place] [address] Dr. Volodymyr Paez SPEC GRAVITY 1.020 Normal 1.005-<=1.025 [facility] Comment on above: Performed By: #### U ACSIND, UMICRO #### [facility] [address] [place] [address] Dr. Volodymyr Paez UA PROTEIN Negative Normal NEGATIVE/ TRACE [facility] Comment on above: Performed By: #### U ACSSHAHEEN UMICRO #### [facility] [address] [place] [address] Dr. Volodymyr Paez UR MICRO IND INDICATED Normal [facility] Comment on above: Performed By: #### U ACSSHAHEEN UMICRO #### [facility] [address] [place] [address] Dr. Volodymyr Paez Urobilinogen Qn (U) 0.2 {Leta'U}/dL Normal 0.2 - 1. 0 [facility] Comment on above: Performed By: #### U ACSSHAHEEN UMICRO #### [facility] [address] [place] [address] Dr. Volodymyr Paez URINE MICROSCOPIC ONLYon BACTERIA SMALL Abnormal NONE SEEN [facility] Comment on above: Performed By: #### U ACSSHAHEEN UMICRO #### [facility] [address] [place] [address] Dr. Volodymyr Paez Bacteria identified Cx Nom (U) INDICATED Normal [facility] Comment on above: Performed By: #### U ACSIND, UMICRO #### [facility] [address] [place] [address] Dr. Volodymyr Paez CAST NONE SEEN Normal NONE SEEN [facility] Comment on above: Performed By: #### U ACSIND, UMICRO #### [facility] [address] [place] [address] Dr. Volodymyr Paez Crystals LM Nom (Urine sed) NONE SEEN Normal NONE SEEN [facility] Comment on above: Performed By: #### U ACSIND, UMICRO #### [facility] [address] [place] [address] Dr. Volodymyr Paez Epithelial cells LM Ql (Urine sed) MODERATE Abnormal NONE SEEN /RARE [facility] Comment on above: Performed By: #### U ACSIND, UMICRO #### [facility] [address] [place] [address] Dr. Volodymyr Paez MUCOUS TRACE Abnormal NONE SEEN [facility] Comment on above: Performed By: #### U ACSIND, UMICRO #### [facility] [address] [place] [address] Dr. Volodymyr Paez RBC 2-5 Abnormal 0-2 [facility] Comment on above: Performed By: #### U ACSIND, UMICRO #### [facility] [address] [place] [address] Dr. Volodymyr Paez WBC 10-20 Abnormal NONE SEEN [facility] Comment on above: Performed By: #### U ACSSHAHEEN, ICRO #### [facility] [address] [place] [address] Dr. Volodymyr Paez LAMOTRIGINEon 08-13-2022 Lamotrigine, Serum 11.2 ug/mL Normal 2.0-20.0 [facility] Comment on above: Result Comment: Dete ction Limit = 1.0 Performed By: #### T SH, CMP #### [facility] [address] [place] [address] Dr. Volodymyr Paez CBC AUTO DIFFon 08-09-2022 BASO # 0.0 103/ul Normal 0.0-0.1 [facility] Comment on above: Performed By: #### C BC #### [facility] [address] [place] [address] Dr. Volodymyr Paez Basophils/100 WBC (Bld) 0.4 % Normal 0.2-2.0 [facility] Comment on above: Performed By: #### C BC #### [facility] [address] [place] [address] Dr. Volodymyr Paez EO # 0.4 103/ul Normal 0.0-0.7 [facility] Comment on above: Performed By: #### C BC #### [facility] [address] [place] [address] Dr. Volodymyr Paez Eosinophils/100 WBC (Bld) 4.3 % Normal 0.9-7.0 [facility] Comment on above: Performed By: #### C BC #### [facility] [address] [place] [address] Dr. Volodymyr Paez Erythrocyte distribution width (RBC) [Ratio] 13.2 % Normal 11.0-15.0 [facility] Comment on above: Performed By: #### C BC #### [facility] [address] [place] [address] Dr. Volodymyr Paez Hematocrit (Bld) [Volume fraction] 40.2 % Normal 36.0-48.0 [facility] Comment on above: Performed By: #### C BC #### [facility] [address] [place] [address] Dr. Volodymyr Paez Hemoglobin (Bld) [Mass/Vol] 13.8 g/dL Normal 12.0-16.0 [facility] Comment on above: Performed By: #### C BC #### [facility] [address] [place] [address] Dr. Volodymyr Paez IG # 0.02 10e3/ul Normal 0.00-0.03 [facility] Comment on above: Performed By: #### C BC #### [facility] [address] [place] [address] Dr. Volodymyr Paez IG % 0.2 % Normal 0.0-0.5 [facility] Comment on above: Performed By: #### C BC #### [facility] [address] [place] [address] Dr. Volodymyr Paez LYMPH # 4.3 103/ul Critically high 1.2-3.8 [facility] Comment on above: Performed By: #### C BC #### [facility] [address] [place] [address] Dr. Volodymyr Paez Lymphocytes/100 WBC (Bld) 51.8 % Normal 20.5-60.0 [facility] Comment on above: Performed By: #### C BC #### [facility] [address] [place] [address] Dr. Volodymyr Paez MANUAL DIFF REQ NO Normal [facility] Comment on above: Performed By: #### C BC #### [facility] [address] [place] [address] Dr. Volodymyr Paez MCH (RBC) [Entitic mass] 31.0 pg Normal 26.7-34.0 [facility] Comment on above: Performed By: #### C BC #### [facility] [address] [place] [address] Dr. Volodymyr Paez MCHC (RBC) [Mass/Vol] 34.3 g/dL Normal 29.9-35.2 [facility] Comment on above: Performed By: #### C BC #### [facility] [address] [place] [address] Dr. Volodymyr Paez MCV (RBC) [Entitic vol] 90.3 fL Normal 81.0-99.0 [facility] Comment on above: Performed By: #### C BC #### [facility] [address] [place] [address] Dr. Volodymyr Paez MONO # 0.9 103/ul Critically high 0.3-0.8 [facility] Comment on above: Performed By: #### C BC #### [facility] [address] [place] [address] Dr. Volodymyr Paez Monocytes/100 WBC (Bld) 10.4 % Normal 1.7-12.0 [facility] Comment on above: Performed By: #### C BC #### [facility] [address] [place] [address] Dr. Volodymyr Paez NEUT # 2.7 103/ul Normal 1.4-6.5 [facility] Comment on above: Performed By: #### C BC #### [facility] [address] [place] [address] Dr. Volodymyr Paez Neutrophils/100 WBC (Bld) 32.9 % Critically low 43.0-75.0 [facility] Comment on above: Performed By: #### C BC #### [facility] [address] [address] [address] Volodymyr Paez Platelet mean volume (Bld) [Entitic vol] 10.3 fL Normal 9.5-13.5 [facility] Comment on above: Performed By: #### C BC #### [facility] [address] [address] [address] Volodymyr Paez PLT 231 103/ul Normal 150-450 [facility] Comment on above: Performed By: #### C BC #### [facility] [address] [address] [address] Volodymyr Paez RBC 4.45 106/ul Normal 4.20-5.40 [facility] Comment on above: Performed By: #### C BC #### [facility] [address] [place] [address] Dr. Volodymyr Paez WBC 8.2 103/ul Normal 4.0-11.0 [facility] Comment on above: Performed By: #### C BC #### [facility] [address] [place] [address] Dr. Volodymyr Paez DEPAKENE/ VALPROIC ACIDon DEPAKENE 80.3 ug/ml Normal 50.0-100.0 [facility] Comment on above: Performed By: #### V ALP #### [facility] [address] [place] [address] Dr. Volodymyr Paez US THYROIDon 07-10-2022 US [...] 6 mm. No follow-up required TI-RADS: [employer] TI-RADS committee's white paper recommendations for thyroid lesions classified as TR4 (moderately suspicious) are listed below: > 1.0 cm. Follow-up ultrasound in 1, 2, 3, and 5 years. > 1.5 cm. FNA. J. Am Chidi Radiol 2017;14:587-595. Electronically authenticated by: MATILDE WATERMAN Date: 2022-07-10 13:01 Normal [facility] LAMOTRIGINEon 06-29-2022 Lamotrigine, Serum 14.2 ug/mL Normal 2.0-20.0 [facility] Comment on above: Result Comment: Dete ction Limit = 1.0 Performed By: #### T AKIKO, CMP #### [facility] [address] [place] [address] Dr. Volodymyr Paez CBC AUTO DIFFon 06-27-2022 BASO # 0.1 103/ul Normal 0.0-0.1 [facility] Comment on above: Performed By: #### T AKIKO, CMP #### [facility] [address] [place] [address] Dr. Volodymyr Paez Basophils/100 WBC (Bld) 0.7 % Normal 0.2-2.0 [facility] Comment on above: Performed By: #### T AKIKO, CMP #### [facility] [address] [place] [address] Dr. Volodymyr Paez EO # 0.4 103/ul Normal 0.0-0.7 [facility] Comment on above: Performed By: #### T AKIKO, CMP #### [facility] [address] [place] [address] Dr. Volodymyr Paez Eosinophils/100 WBC (Bld) 5.1 % Normal 0.9-7.0 [facility] Comment on above: Performed By: #### T SH, CMP #### [facility] [address] [place] [address] Dr. Volodymyr Paez Erythrocyte distribution width (RBC) [Ratio] 13.1 % Normal 11.0-15.0 [facility] Comment on above: Performed By: #### T SH, CMP #### [facility] [address] [place] [address] Dr. Volodymyr Paez Hematocrit (Bld) [Volume fraction] 39.7 % Normal 36.0-48.0 [facility] Comment on above: Performed By: #### T SH, CMP #### [facility] [address] [place] [address] Dr. Volodymyr Paez Hemoglobin (Bld) [Mass/Vol] 13.3 g/dL Normal 12.0-16.0 [facility] Comment on above: Performed By: #### T SH, CMP #### [facility] [address] [place] [address] Dr. Volodymyr Paez IG # 0.02 10e3/ul Normal 0.00-0.03 [facility] Comment on above: Performed By: #### T SH, CMP #### [facility] [address] [place] [address] Dr. Volodymyr Paez IG % 0.3 % Normal 0.0-0.5 [facility] Comment on above: Performed By: #### T SH, CMP #### [facility] [address] [place] [address] Dr. Volodymyr Paez LYMPH # 3.6 103/ul Normal 1.2-3.8 [facility] Comment on above: Performed By: #### T SH, CMP #### [facility] [address] [place] [address] Dr. Volodymyr Paez Lymphocytes/100 WBC (Bld) 47.4 % Normal 20.5-60.0 [facility] Comment on above: Performed By: #### T SH, CMP #### [facility] [address] [place] [address] Dr. Volodymyr Paez MANUAL DIFF REQ NO Normal [facility] Comment on above: Performed By: #### T SH, CMP #### [facility] [address] [place] [address] Dr. Volodymyr Paez MCH (RBC) [Entitic mass] 30.3 pg Normal 26.7-34.0 [facility] Comment on above: Performed By: #### T SH, CMP #### [facility] [address] [place] [address] Dr. Volodymyr Paez MCHC (RBC) [Mass/Vol] 33.5 g/dL Normal 29.9-35.2 [facility] Comment on above: Performed By: #### T SH, CMP #### [facility] [address] [place] [address] Dr. Volodymyr Paez MCV (RBC) [Entitic vol] 90.4 fL Normal 81.0-99.0 [facility] Comment on above: Performed By: #### T AKIKO, CMP #### [facility] [address] [place] [address] Dr. Volodymyr Paez MONO # 0.9 103/ul Critically high 0.3-0.8 [facility] Comment on above: Performed By: #### T AKIKO, CMP #### [facility] [address] [place] [address] Dr. Volodymyr Paez Monocytes/100 WBC (Bld) 11.3 % Normal 1.7-12.0 [facility] Comment on above: Performed By: #### T AKIKO, CMP #### [facility] [address] [place] [address] Dr. Volodymyr Paez NEUT # 2.7 103/ul Normal 1.4-6.5 [facility] Comment on above: Performed By: #### T AKIKO, CMP #### [facility] [address] [place] [address] Dr. Volodymyr Paez Neutrophils/100 WBC (Bld) 35.2 % Critically low 43.0-75.0 [facility] Comment on above: Performed By: #### T SH, CMP #### [facility] [address] [place] [address] Dr. Volodymyr Paez Platelet mean volume (Bld) [Entitic vol] 11.4 fL Normal 9.5-13.5 [facility] Comment on above: Performed By: #### T AKIKO, CMP #### [facility] [address] [place] [address] Dr. Volodymyr Paez PLT 96 103/ul Critically low 150-450 [facility] Comment on above: Result Comment: slid e made; no plt clumps seen Performed By: #### T SH, CMP #### [facility] [address] [place] [address] Dr. Volodymyr Paez RBC 4.39 106/ul Normal 4.20-5.40 [facility] Comment on above: Performed By: #### T SH, CMP #### [facility] [address] [place] [address] Dr. Volodymyr Paez WBC 7.6 103/ul Normal 4.0-11.0 [facility] Comment on above: Performed By: #### T SH, CMP #### [facility] [address] [place] [address] Dr. Volodymyr Paez FREE T4on 06-27-2022 Free T4 [Mass/Vol] 1.45 ng/dL Normal 0.76-1.46 [facility] Comment on above: Performed By: #### F T4 #### [facility] [address] [place] [address] Dr. Volodymyr Paez PROF 14(COMP METB)on 023 Albumin [Mass/Vol] 3.2 g/dL Critically low 3.4-5.0 [facility] Comment on above: Performed By: #### T SH, CMP #### [facility] [address] [place] [address] Dr. Volodymyr Paez Albumin/Globulin [Mass ratio] 0.7 {ratio} Normal [facility] Comment on above: Performed By: #### T SH, CMP #### [facility] [address] [place] [address] Dr. Volodymyr Paez ALP [Catalytic activity/Vol] 65 U/L Normal 46-116 [facility] Comment on above: Performed By: #### T SH, CMP #### [facility] [address] [place] [address] Dr. Volodymyr Paez ALT [Catalytic activity/Vol] 20 U/L Normal 14-59 [facility] Comment on above: Performed By: #### T SH, CMP #### [facility] [address] [address] [address] Volodymyr Paez Anion gap [Moles/Vol] 11.3 mmol/L Normal [facility] Comment on above: Performed By: #### T SH, CMP #### [facility] [address] [address] [address] Volodymyr Paez AST [Catalytic activity/Vol] 25 U/L Normal 15-37 [facility] Comment on above: Performed By: #### T SH, CMP #### [facility] [address] [address] [address] Volodymyr Paez Bilirubin [Mass/Vol] 0.3 mg/dL Normal 0.2-1.0 [facility] Comment on above: Performed By: #### T SH, CMP #### [facility] [address] [place] [address] Dr. Volodymyr Paez Calcium [Mass/Vol] 9.5 mg/dL Normal 8.5-10.1 [facility] Comment on above: Performed By: #### T SH, CMP #### [facility] [address] [place] [address] Dr. Volodymyr Paez Chloride [Moles/Vol] 100 mmol/L Normal 98-107 [facility] Comment on above: Performed By: #### T SH, CMP #### [facility] [address] [place] [address] Dr. Volodymyr Paez CO2 [Moles/Vol] 30.1 mmol/L Normal 21.0-32.0 [facility] Comment on above: Performed By: #### T SH, CMP #### [facility] [address] [place] [address] Dr. Volodymyr Paez Creatinine [Mass/Vol] 0.92 mg/dL Normal 0.55-1.02 [facility] Comment on above: Performed By: #### T SH, CMP #### [facility] [address] [place] [address] Dr. Volodymyr Paez EGFR-AF CHINESE >60 Normal >=60 [facility] Comment on above: Performed By: #### T SH, CMP #### [facility] [address] [address] [address] Volodymyr Paez EGFR-NON AF CHINESE >60 Normal >=60 [facility] Comment on above: Performed By: #### T SH, CMP #### [facility] [address] [address] [address] Volodymyr Paez Globulin (S) [Mass/Vol] 4.4 g/dL Normal [facility] Comment on above: Performed By: #### T SH, CMP #### [facility] [address] [address] [address] Volodymyr Paez Glucose [Mass/Vol] 76 mg/dL Normal 74-106 [facility] Comment on above: Performed By: #### T SH, CMP #### [facility] [address] [place] [address] Dr. Volodymyr Paez Potassium [Moles/Vol] 4.4 mmol/L Normal 3.5-5.1 [facility] Comment on above: Performed By: #### T SH, CMP #### [facility] [address] [place] [address] Dr. Volodymyr Paez Protein [Mass/Vol] 7.6 g/dL Normal 6.4-8.2 [facility] Comment on above: Performed By: #### T SH, CMP #### [facility] [address] [place] [address] Dr. Volodymyr Paez Sodium [Moles/Vol] 137 mmol/L Normal 136-145 [facility] Comment on above: Performed By: #### T SH, CMP #### [facility] [address] [place] [address] Dr. Volodymyr Paez Urea nitrogen [Mass/Vol] 7.0 mg/dL Normal 7.0-18.0 [facility] Comment on above: Performed By: #### T SH, CMP #### [facility] [address] [place] [address] Dr. Volodymyr Paez Urea nitrogen/Creatinine [Mass ratio] 7.6 mg/mg Normal [facility] Comment on above: Performed By: #### T SH, CMP #### [facility] [address] [place] [address] Dr. Volodymyr Paez TSHon 06-27-2022 TSH 0.099 uIU/mL Critically low 0.358-3.740 [facility] Comment on above: Performed By: #### T SH, CMP #### [facility] [address] [address] [address] Volodymyr Paez DEPAKENE/ VALPROIC ACIDon DEPAKENE 72.4 ug/ml Normal 50.0-100.0 [facility] Comment on above: Performed By: #### T SH, CMP #### [facility] [address] [address] [address] Volodymyr Paez US THYROIDon 10-25-2021 US [...] screening is still recommended. TR 4: [employer] TI-RADS committee's white paper recommendations for thyroid lesions classified as TR4 (moderately suspicious) are listed below: > 1.0 cm. Follow-up ultrasound in 1, 2, 3, and 5 years. > 1.5 cm. FNA. J. Am Chidi Radiol 2017;14:587-595. Electronically authenticated by: KRIS MENDOZA Date: 2021-10-25 09:31 Normal [facility] FREE T4on 10-24-2021 Free T4 [Mass/Vol] 1.08 ng/dL Normal 0.76-1.46 [facility] Comment on above: Performed By: #### T SH, CMP #### [facility] [address] [address] [address] Volodymyr Paez TSHon 10-24-2021 TSH 12.719 uIU/mL Critically high 0.358-3.740 [facility] Comment on above: Performed By: #### T #### [facility] [address] [address] [address] Volodymyr Paez Vital Signs Date Time Vital Sign Value Performing Clinician Junior whitt 08-25-2024 11:03-0400 Body height 165.1 cm Lai Alvarado DPM FACFAS Work Phone: [facility] 08-25-2024 11:03-0400 Body mass index (BMI) [Ratio] 21.3 kg/m2 Lai Alvarado DPM FACFAS Work Phone: [facility] 08-25-2024 11:03-0400 Body weight 58.06 kg Lai Alvarado DPM FACFAS Work Phone: [facility] 08-25-2024 11:03-0400 Diastolic blood pressure 64 mm[Hg] Lai Alvarado DPM FACFAS Work Phone: [facility] 08-25-2024 11:03-0400 Heart rate 71 /min Lai Alvarado DPM FACFAS Work Phone: [facility] 08-25-2024 11:03-0400 Systolic blood pressure 110 mm[Hg] Lai Alvarado DPM FACFAS Work Phone: [facility] 08-11-2024 10:16-0400 Body height 165.1 cm Eduarda Lowe PA Work Phone: [facility] 08-11-2024 10:16-0400 Body mass index (BMI) [Ratio] 21.47 kg/m2 Eduarda Lowe PA Work Phone: [facility] 08-11-2024 10:16-0400 Body weight 58.51 kg Eduarda Lowe PA Work Phone: [facility] 08-11-2024 10:16-0400 Diastolic blood pressure 62 mm[Hg] Eduarda Lowe PA Work Phone: [facility] 08-11-2024 10:16-0400 Systolic blood pressure 106 mm[Hg] Eduarda Lowe PA Work Phone: [facility] 06-10-2024 10:24-0500 Body height 165.1 cm Lai Alvarado DPM FACFAS Work Phone: [facility] 06-10-2024 10:24-0500 Body mass index (BMI) [Ratio] 21.47 kg/m2 Lai Alvarado DPM FACFAS Work Phone: [facility] 06-10-2024 10:24-0500 Body weight 58.51 kg Lai Alvarado DPM FACFAS Work Phone: [facility] 06-10-2024 10:24-0500 Diastolic blood pressure 72 mm[Hg] Lai Alvarado DPM FACFAS Work Phone: [facility] 06-10-2024 10:24-0500 Heart rate 74 /min Lai Alvarado DPM FACFAS Work Phone: [facility] 06-10-2024 10:24-0500 Systolic blood pressure 120 mm[Hg] Lai Alvarado DPM FACFAS Work Phone: [facility] 06-03-2024 09:45-0500 Body height 165.1 cm Eduarda Lowe PA Work Phone: [facility] 06-03-2024 09:45-0500 Body mass index (BMI) [Ratio] 21.47 kg/m2 Eduarda Lowe PA Work Phone: [facility] 06-03-2024 09:45-0500 Body weight 58.51 kg Eduarda Lowe PA Work Phone: [facility] 03-10-2024 11:19-0500 Body height 165.1 cm Lai Alvarado DPM FACFAS Work Phone: [facility] 03-10-2024 11:19-0500 Body mass index (BMI) [Ratio] 21.3 kg/m2 Lai Alvarado DPM FACFAS Work Phone: [facility] 03-10-2024 11:19-0500 Body weight 58.06 kg Lai Alvarado DPM FACFAS Work Phone: [facility] 03-10-2024 11:19-0500 Diastolic blood pressure 72 mm[Hg] Lai Alvarado DPM FACFAS Work Phone: [facility] 03-10-2024 11:19-0500 Heart rate 88 /min Lai Alvarado DPM FACFAS Work Phone: [facility] 03-10-2024 11:19-0500 Systolic blood pressure 115 mm[Hg] Lai Alvarado DPM FACFAS Work Phone: [facility] 03-02-2024 12:30-0500 Body temperature 98.1 [degF] Elmer Baires-Danicai DDS Work Phone: [facility] 03-02-2024 12:30-0500 Diastolic blood pressure 73 mm[Hg] Elmer Al-Danicai DDS Work Phone: [facility] 03-02-2024 12:30-0500 Heart rate 113 /min Elmer Baires-Danicai DDS Work Phone: [facility] 03-02-2024 12:30-0500 Respiratory rate 19 /min Elmer Baires-Danicai DDS Work Phone: [facility] 03-02-2024 12:30-0500 SaO2% (BldA) [Mass fraction] 98 % Elmer Baires-Danicai DDS Work Phone: [facility] 03-02-2024 12:30-0500 Systolic blood pressure 113 mm[Hg] Elmer Al-Danicai DDS Work Phone: [facility] 03-02-2024 09:11-0500 Body height 162.6 cm Elmer Baires-Danicai DDS Work Phone: [facility] 03-02-2024 09:11-0500 Body mass index (BMI) [Ratio] 23.45 kg/m2 Elmer Al-Mashni DDS Work Phone: [facility] 03-02-2024 09:11-0500 Body weight 61.96 kg Elmer Topete DDS Work Phone: [facility] 02-19-2024 11:00-0400 Body height 162.6 cm Kelly Cabello RN [facility] 02-19-2024 11:00-0400 Body mass index (BMI) [Ratio] 23.45 kg/m2 Kelly Cabello RN [facility] 02-19-2024 11:00-0400 Body weight 61.96 kg Kelly Cabello RN [facility] 01-21-2024 11:05-0400 Diastolic blood pressure 72 mm[Hg] Radha AMADOR Work Phone: [facility] 01-21-2024 11:05-0400 Heart rate 92 /min Radha AMADOR Work Phone: [facility] 01-21-2024 11:05-0400 Respiratory rate 16 /min Radha AMADOR Work Phone: [facility] 01-21-2024 11:05-0400 SaO2% (BldA) [Mass fraction] 96 % Radha AMADOR Work Phone: [facility] 01-21-2024 11:05-0400 Systolic blood pressure 118 mm[Hg] Radha AMADOR Work Phone: [facility] Healthcare Encounters Encounter Date Encounter Type Care Provider Facility Start: 10-01-2024 End: 10-01-2024 ambulatory [facility] Facility:[facility] Start: 08-25-2024 End: 08-25-2024 Bamboo flowsheet Lai Alvarado DPM FACFAS Work Phone: [facility] Start: 08-25-2024 End: 08-25-2024 Bamboo flowsheet Lai Alvarado DPM FACFAS Work Phone: [facility] Start: 08-25-2024 End: 08-25-2024 Patient encounter procedure Lai Alvarado DPM FACFAS Work Phone: [facility] [...] Phone: [facility] Start: 08-11-2024 End: 08-11-2024 Office outpatient visit 25 minutes Eduarda Lowe PA Work Phone: [facility] Comment on above: Seizure disorder (CM S/HCC) [...] 06-03-2024 Office outpatient visit 25 minutes Eduarda Lowe PA Work Phone: [facility] Comment on above: Seizure disorder (CM S/HCC) (Primary Dx); Autism (CMS/HCC); Developmental delay; Gait instability Start: 06-03-2024 End: 06-03-2024 ambulatory EDUARDA LOWE Not Available Start: 03-10-2024 End: 03-10-2024 Bamboo flowsheet Lai Serge Dolce DPM FACFAS Work Phone: [facility] Start: 03-10-2024 End: 03-10-2024 Bamboo flowsheet Lai D Dolce DPM FACFAS Work Phone: [facility] Start: 03-10-2024 End: 03-10-2024 ambulatory LAI Valentine DOLRODOLFO Not Available Start: 03-10-2024 End: 03-10-2024 Office outpatient new 30 minutes Lai Serge Dolce DPM FACFAS Work Phone: [facility] Comment on above: Venous insufficiency (chronic) (peripheral) (Primary Dx); Onychomycosis; Pain in right toe(s); Pain in left toe(s); Onychocryptosis Start: 03-02-2024 End: 03-02-2024 Patient encounter procedure Elmer Topete DDS Work Phone: [facility] Start: 03-02-2024 End: 03-02-2024 Subsequent hospital visit by physician Elmer Topete DDS Work Phone: [facility] Start: 03-02-2024 End: 03-02-2024 ambulatory ELMER TOPETE Facility:[facility] Start: 02-26-2024 End: 02-26-2024 Telephone encounter Kelly Cabello RN [facility] Pre-Admission Testing Comment on above: Pre-surgical Evaluat ion (DD adult dental restorations 03/02 under [place] at [place]. PAT completed - anesthesia consent. ZOHRA RN spoke to Mary (nurse), confirmed NPO, [place] address, and 0900 arrival time/) Start: 02-24-2024 End: 02-24-2024 Telephone encounter Ashleigh Kaplan RN [facility] Pre-Admission Testing Comment on above: PAT (Anesthesia cons ent obtained) Start: 02-21-2024 End: 02-21-2024 Telephone encounter Ashleigh Kaplan RN [facility] Pre-Admission Testing Comment on above: PAT (Anesthesia cons ent obtained) Start: 02-19-2024 End: 02-19-2024 Nursing evaluation of patient and report Kelly Cabello RN [facility] Pre-Admission Testing Comment on above: Pre-op evaluation (P rimary Dx) Start: 02-19-2024 End: 02-19-2024 Preprocedural examination done Kelly Cabello RN [facility] Start: 02-19-2024 ambulatory UNKNOWN PROVIDER Facili ty:[facility] Start: 02-19-2024 Encounter for other preprocedural examination UNKNOWN PROVIDER [facility] Start: 02-05-2024 End: 02-05-2024 Patient encounter procedure Refugio Ghassan [employer] Work Phone: [facility] Pre-Admission Testing Comment on above: NO SHOW (Primary Dx) Start: 01-21-2024 End: 01-21-2024 [employer] Radha AMADOR Work Phone: [employer] [facility] Start: 01-21-2024 End: 01-21-2024 Bamboo flowsheet Radha AMADOR Work Phone: [employer] [facility] Start: 01-21-2024 End: 01-21-2024 ambulatory RADHA MARTINEZ Not Available Start: 01-21-2024 End: 01-21-2024 Office outpatient visit 15 minutes Radha AMADOR Work Phone: [employer] [facility] Comment on above: Seizure disorder (CM S/HCC) (Primary Dx); Mental deficiency (CMS/HCC); Autism (CMS/HCC); Pseudobulbar affect; Gait instability Start: 12-27-2023 End: 12-27-2023 Admission to same day surgery center Mike Weber DDS Work Phone: [facility] Start: 10-01-2023 End: 10-01-2023 ambulatory RADHA MARTINEZ Not Available Start: 01-09-2023 End: 01-10-2023 ambulatory NATHAN IYER Facility:[facility] Start: 08-29-2022 End: 08-30-[address] NATHAN IYER Facility: Start: 08-21-2022 End: 08-21-[address] DOCTOR JAVED Facility:[facility] Start: 08-09-2022 End: 08-10-[address] NATHAN IYER Facility:[facility] Start: 07-21-2022 End: 07-21-[address] UMAIR Leung Facility:[facility] Start: 07-10-2022 End: 07-11-[address] DOCTOR JAVED Facility:[facility] Start: 06-27-2022 End: 06-28-2022 ambulatory NONE LISTED REQUEST Facility:[facility] Start: 04-30-2022 Telephone encounter Martha Tristin dill DMD Work Phone: [facility] Comment on above: Dental Start: 04-03-2022 End: 04-04-[address] NATHAN IYER Facility:[facility] Start: 03-13-2022 End: 03-18-2022 Patient encounter procedure Martha Joss DMD Work Phone: [facility] Start: 10-24-2021 End: 10-25-[address] DOCTOR JAVED Facility:[facility] Start: 11-07-2016 End: 11-08-2016 Ambulatory DEFAULT PHYSICIAN [facility] Procedures Date Procedure Procedure Detail Performing Clinician Start: 03-02-2024 End: 03-02-2024 Urine test visual color cmprsn neos Milton Luna MD Work Phone: Plan of Treatment Date Care Activity Detail Author Start: 2043 Shingles (RZV) Vacci ne (1 of 2) Shingles (RZV) Vaccine (1 of 2) [facility] Start: 12-21-2024 Influenza vaccination Influenz a Vaccine (Season Ended) [facility] Start: 11-03-2024 End: 11-03-2024 Patient encounter procedure 11/03/2024 11:00 AM EDT Procedure Visit [facility] [facility]ists [address] [facility] Luana [place] [address] Lai Alvarado, DPM FACFAS [address] [facility] [place] [address] [facility] Start: 08-25-2024 End: 08-25-2024 Patient encounter procedure CK LUNA Comment on above: Arrived Start: 08-19-2024 End: 08-19-2024 Patient encounter procedure 08/19/2024 11:00 AM EDT Procedure Visit [facility] [address] [place] [address] Lai Alvarado, DPM FACFAS [address] [place] [address] [facility] Start: 08-11-2024 End: 08-11-2024 Patient encounter procedure CK BURROUGHS Comment on above: Arrived Start: 06-10-2024 End: 06-10-2024 Patient encounter procedure [facility] Comment on above: Arrived Start: 05-12-2024 End: 05-12-2024 Patient encounter procedure 05/12/2024 11:20 AM EST Office Visit [facility] [address] [facility] [address] [place] [address] Radha Martinez PA [address] [place] [address] [facility] Start: 03-02-2024 End: 03-02-2024 Admission to same day surgery center 03/02/2024 9:14 AM EST - 03/02/2024 10:58 AM EST Surgery [facility] [address] [place] [address] Elmer Topete, [address] [place] [address] DENTAL RESTORATIONS [facility] Comment on above: DENTAL RESTORATIONS Start: 03-02-2024 End: 03-02-2024 DENTAL RESTORATIONS [facility] Start: 03-02-2024 End: 03-02-2024 Admission to same day surgery center 03/02/2024 7:40 AM EST - 03/02/2024 9:24 AM EST Surgery [facility] [address] [place] [address] Elmer Topete, DDS [address] [place] [address] DENTAL RESTORATIONS [facility] Comment on above: DENTAL RESTORATIONS Start: 03-02-2024 End: 03-02-2024 DENTAL RESTORATIONS DENTAL RESTORATIONS Routine scheduled Caries 03/02/2024 7:[address] [facility] Start: 03-02-2024 Subsequent hospital visit by physician [facility] Start: 03-02-2024 End: 03-02-[address] [facility] Dentistry Start: 02-05-2024 End: 02-05-2024 Patient encounter procedure 02/05/2024 9:15 AM EDT Office Visit [facility] Pre-Admission Testing [address] [place], [place] [id number] Refugio Ferrell, HOSPITALITY WORKERS-INTERIOR DESIGN COORDINATOR [address] [facility] [place] [address] [facility] Pre-Admission Testing Start: 01-21-2024 Influenza vaccination Influenza Vacc ine (#1) [facility] Start: 01-21-2024 End: 01-20-2025 Lamotrigine level Lamotrigine level Lab Routine Seizure disorder ([facility]/HCC) Expected: 01/21/2024 (Approximate), Expires: 01/20/2025 [facility] Healthcare Work Phone: Comment on above: Expected: 01/21/2024 (Approximate), Expires: 01/20/2025 Start: 01-21-2024 End: 01-20-2025 Valproic acid level, total Valproic acid level, total Lab Routine Seizure disorder (CMS/HCC) Expected: 01/21/2024 (Approximate), Expires: 01/20/2025 [facility] Comment on above: Expected: 01/21/2024 (Approximate), Expires: 01/20/2025 Start: 12-22-2023 COVID-19 Vaccine () COVID-19 Vaccine (3 - 2023-24 season) [facility] Start: 12-22-2023 COVID-19 Vaccine ( season) COVID-19 Vaccine ( season) [facility] Start: 12-22-2023 Influenza vaccination Influenza Vacc ine (#1) [facility] Start: 2023 Screening for malign ant neoplasm of cervix [facility] Start: 01-20-2022 Influenza vaccination Influenza Vacc [...] Start: 12-21-2013 Annual wellness visit Annual [facility] Visit ([id number]) [facility] Start: 01-02-2012 Hepatitis [...] [facility] Start: 01-02-2008 HIV screening [facility] Start: 1995 Medicare Annual Wellness (AWV) Medicare Annual Wellness (AWV) [facility] DENTAL RESTORATIONS DENTAL MEENA RATIONS Routine scheduled [facility] Payers Date Payer Category Payer Self-pay 2024 Medicare [id number] 2014 Dental --Stand Alone DENTAL-MEDI CAID [id number] 2014 Unknown 2013 Medicaid [id number]. [id number] 2012 Medicare [id number] [id number]. [id number] 2012 Medicare FFS MEDICARE [id number] 1993 Unknown [id number] 2.16.840.1.452613.3.579.2.7 32 1993 Unknown [id number] 2.16.840.1.652518.3.579.2.7 32 1993 Unknown [id number] 2.840.1.495368.3.579.2.7 32 1993 Unknown [id number] 2.16840.1.801019.3.579.2.1 259 1993 Unknown [id number] 2.16.840.1.049006.3.579.2.1 259 1993 Unknown [id number] 2.16.840.1.503833.3.579.2.1 259 1993 Unknown [id number] 2.16.840.1.603433.3.579.2.1 259 1993 Unknown [id number] 2.16.840.1.919729.3.579.2.1 259 1993 Unknown [id number] 2.16.840.1.325986.3.579.2.1 259 1993 Unknown [id number] 2.16.840.1.868342.3.579.2.1 259 1959 Medicaid [id number] 1959 Medicare [id number] 1954 Unknown [id number] 2.16.840.1.768198.3.579.2.5 93 1954 Unknown [id number] 2.16.840.1.227139.3.579.2.5 93 1954 Unknown [id number] 2.16.840.1.721286.3.579.2.5 93 1954 Unknown [id number] 2.16.840.1.074908.3.579.2.5 93 1954 Unknown [id number] 2.16.840.1.352863.3.579.2.5 93 1954 Unknown [id number] 2.16.840.1.053696.3.579.2.5 93 1954 Unknown [id number] 2.16.840.1.738413.3.579.2.5 93 1954 Unknown [id number] 2.16.840.1.487303.3.579.2.5 93 Unknown [id number] 2.16.840.1.426974.3.579.2.7 27 Unknown [id number] 2.16.840.1.844350.3.579.2.5 31 Social History Date Type Detail Facility [facility] Start: 1995 Sex Assigned At Not on file [facility] Start: 10-01-2023 End: 08-11-2024 Gender identity Not on file [facility] Start: 08-06-2023 End: 02-19-2024 Tobacco smoking status NHIS Never smoked tobacco [facility] Start: 08-06-2023 End: 02-19-2024 Tobacco use and exposure Smokeless tobacco non-user [facility] Start: 10-01-2023 End: 08-25-2024 Alcoholic beverage intake Lifetime non-drinker (finding) [facility] Start: 10-01-2023 End: 08-11-2024 History of Social function [facility] Start: 07-06-2014 Sex Female (finding) Angel torrezyang Clinical Notes 03-13-2022 to 08-25-2024 Lai Alvarado DPM FACFAS - 08/25/2024 11:00 AM PERRY Lentz - 08/11/2024 10:40 AM Julio Alvarado DPM FACSHANAE - 06/10/2024 10:30 AM PERRY Potts - 06/03/2024 10:00 AM EST Note Date & Type Note Facility 08-25-2024 History of Present illness Narrative Images from the original note were not included. patient: Chantel Ascencio : 1995 PCP: Nathan Iyer MD SUBJECTIVE This is a 29 y.o. female that presents today with a chief complaint of painful elongated nails digits 1 through 10. They cause marked limitation in ambulation due to pain and pressure from shoe gear. 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 They were painful to palpation 27771 on the right 45884 on the left. VASC: DP /PT were nonpalpable bilateral. Capillary refill time < 3 seconds Digits 1-5 bilateral NEURO: [place] Cecy 5.07 monofilament was intact B/L. Vibratory [...] 10. MAURA Salas documented in this encounter [facility] 08-11-2024 History of Present illness Narrative [...] Review Audit Reviewed by Freida Amezquita MA ([employer] Alterations Dressmaker) on 08/11/24 at 1017 Medication Order Taking? Sig Documenting Provider Last Dose Status ammonium lactate (Amlactin) 12 % cream [id number] Apply 2 application topically Daily Patient not taking: Reported on 06/03/2024 Historical ProviderMD Active busPIRone (Buspar) 30 MG tablet [id number] Take 30 mg by mouth in the morning and 30 mg in the evening and 30 mg before bedtime. Historical ProviderMD Active cloNIDine (Catapres) 0.2 MG tablet [id number] Take 0.2 mg by mouth in the morning and 0.2 mg at noon and 0.2 mg in the evening and 0.2 mg before bedtime. Historical ProviderMD Active divalproex (Depakote) 125 MG EC tablet [id number] Take 500 mg by mouth in the morning and 500 mg in the evening and 500 mg before bedtime. Historical ProviderMD Active divalproex (Depakote) 125 MG EC tablet [id number] Take 1,000 mg by mouth at bedtime Do not crush, chew, or split. Historical ProviderMD Active famotidine (Pepcid) 40 MG tablet [id number] Take 40 mg by mouth Daily Historical ProviderMD Active guanFACINE (Tenex) 2 MG tablet [id number] Take 2 mg by mouth in the morning and 2 mg before bedtime. Historical ProviderMD Active lamoTRIgine (LaMICtal) 100 MG tablet [id number] Take 100 mg by mouth at bedtime Historical ProviderMD Active lamoTRIgine (LaMICtal) 150 MG tablet [id number] Take 150 mg by mouth in the morning. Historical ProviderMD Active levothyroxine (Synthroid, Levoxyl) 200 MCG tablet [id number] Take 200 mcg by mouth in the morning. Take before meals. Historical ProviderMD Active levothyroxine (Synthroid, Levoxyl) 25 MCG tablet [id number] Take 25 mcg by mouth in the morning. Take before meals. Historical ProviderMD Active loratadine (Claritin) 10 MG tablet [id number] Take 10 mg by mouth Daily Historical ProviderMD Active Melatonin 3 MG tablet dispersible [id number] Take 3 mg by mouth at bedtime Historical ProviderMD Active norethindrone-ethinyl estradiol (Ortho-Novum, Nortrel) 1-35 MG-MCG tablet [id number] Take 1 tablet by mouth Daily Historical ProviderMD Active paliperidone (Invega) 3 MG 24 hr tablet [id number] Take 3 mg by mouth in the morning and 3 mg before bedtime. Do not crush, chew, or split.. Historical ProviderMD Active polyethylene glycol, PEG, 3350 (Miralax) 17 g packet [id number] Take 17 g by mouth Daily Historical ProviderMD Active QUEtiapine (SEROquel) 200 MG tablet [id number] Take 200 mg by mouth at bedtime Historical ProviderMD Active QUEtiapine (SEROquel) 400 MG tablet [id number] Take 400 mg by mouth at bedtime Historical Provider, Active HPI History obtained from caregiver report from [facility] Caregiver from [facility] here with patient today SEIZURE -on lamictal and depakote -denies any missed doses -denies any recent seizure -Angel Griffith continues to use a wheelchair -she is [...] triceps, wrist extensors, wrist extensors, wrist flexor, construction skills teacher strength 5/5. LUE Strength deltoid, biceps, triceps, wrist extensors, wrist extensors, wrist flexor, construction skills teacher strength 5/5. RLE Strength illopsoas, quadriceps, tibialis [...] is note from PT and staff at [facility] that the patient has had continued loss [...] or CTA she would require sedation per [facility]. She continues with balance disturbance and worsening strength per PT at [facility]. Blood work 09/12/2023: Valproic acid level 93.9, [...] finding of forehead scalp contusion. Ambulatory EEG 2017: normal PLAN Labwork reviewed. Progress notes and PT notes reviewed from [facility]. We will look into local options for [...] up after imaging. documented in this encounter [facility] 06-10-2024 History of Present illness Narrative Images from the original note were not included. patient: Chantel Ascencio : 1995 PCP: Nathan Iyer MD SUBJECTIVE This is a 29 y.o. [...] subungual debris. They were painful to palpation 80175 on the right 97751 on the left. VASC: DP /PT were nonpalpable bilateral. Capillary refill time < 3 seconds Digits 1-5 bilateral NEURO: [place] Cecy 5.07 monofilament was intact B/L. Vibratory [...] 10. MAURA Salas documented in this encounter [facility] 06-03-2024 History of Present illness Narrative [...] Review Audit Reviewed by Krista Wu MA ([employer]ter[employer] Dressmaker) on 06/03/24 at 0955 Medication Order Taking? Sig Documenting Provider Last Dose Status ammonium lactate (Amlactin) 12 % cream [id number] Apply 2 application topically Daily Patient not taking: Reported on 06/03/2024 Historical ProviderMD Active busPIRone (Buspar) 30 MG tablet [id number] Take 30 mg by mouth in the morning and 30 mg in the evening and 30 mg before bedtime. Historical Provider, Active cloNIDine (Catapres) 0.2 MG tablet [id number] Take 0.2 mg by mouth in the morning and 0.2 mg at noon and 0.2 mg in the evening and 0.2 mg before bedtime. Real Schneider MD Active divalproex (Depakote) 125 MG EC tablet [id number] Take 500 mg by mouth in the morning and 500 mg in the evening and 500 mg before bedtime. Real Schneider MD Active divalproex (Depakote) 125 MG EC tablet [id number] Take 1,000 mg by mouth at bedtime Do not crush, chew, or split. Real Schneider MD Active famotidine (Pepcid) 40 MG tablet [id number] Take 40 mg by mouth Daily Real Schneider MD Active guanFACINE (Tenex) 2 MG tablet [id number] Take 2 mg by mouth in the morning and 2 mg before bedtime. Real Schneider MD Active lamoTRIgine (LaMICtal) 100 MG tablet [id number] Take 100 mg by mouth at bedtime Real Schneider MD Active lamoTRIgine (LaMICtal) 150 MG tablet [id number] Take 150 mg by mouth in the morning. Real Schneider MD Active levothyroxine (Synthroid, Levoxyl) 200 MCG tablet [id number] Take 200 mcg by mouth in the morning. Take before meals. Real Schneider MD Active levothyroxine (Synthroid, Levoxyl) 25 MCG tablet [id number] Take 25 mcg by mouth in the morning. Take before meals. Real Schneider MD Active loratadine (Claritin) 10 MG tablet [id number] Take 10 mg by mouth Daily Real Schneider MD Active Melatonin 3 MG tablet dispersible [id number] Take 3 mg by mouth at bedtime Real Schneider MD Active norethindrone-ethinyl estradiol (Ortho-Novum, Nortrel) 1-35 MG-MCG tablet [id number] Take 1 tablet by mouth Daily Real Schneider MD Active paliperidone (Invega) 3 MG 24 hr tablet [id number] Take 3 mg by mouth in the morning and 3 mg before bedtime. Do not crush, chew, or split.. Real Schneider MD Active polyethylene glycol, PEG, 3350 (Miralax) 17 g packet [id number] Take 17 g by mouth Daily Real Schneider MD Active QUEtiapine (SEROquel) 200 MG tablet [id number] Take 200 mg by mouth at bedtime Historical Provider, Active QUEtiapine (SEROquel) 400 MG tablet [id number] Take 400 mg by mouth at bedtime Historical Provider, Active HPI History obtained from caregiver report from [facility] Caregiver from [facility] here with patient today SEIZURE -on lamictal [...] triceps, wrist extensors, wrist extensors, wrist flexor, construction skills teacher strength 5/5. LUE Strength deltoid, biceps, triceps, wrist extensors, wrist extensors, wrist flexor, construction skills teacher strength 5/5. RLE Strength illopsoas, quadriceps, tibialis [...] or CTA she would require sedation per [facility]. She had two recent falls 07/17/23 and 08/02/23. She was evaluated at [facility] ER. Lamictal dose was recently decreased, [...] seizure prevention Continue with fall precautions at [facility] and assisted transfers and supervision/assistance with ambulation to avoid falls. She is at a high risk of trauma and debility associated with falls. Follow up 2 months documented in this encounter [facility] 03-10-2024 History of Present illness Narrative patient: Chantel Ascencio : 1995 PCP: Nathan Iyer MD SUBJECTIVE This is a 29 y.o. 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 They were painful to palpation 52979 on the right 77209 on the left. VASC: DP /PT were nonpalpable bilateral. Capillary refill time < 3 seconds Digits 1-5 bilateral NEURO: [place] Cecy 5.07 monofilament was intact B/L. Vibratory [...] nails. MAURA Salas documented in this encounter [facility] 03-02-2024 Hospital Discharge instructions Rehana Aguillon RN - 03/02/2024 12:22 PM EST PERIOPERATIVE DISCHARGE/HOME-GOING INSTRUCTIONS ANESTHESIA - GENERAL (ADULT) If a problem arises, you may contact your physician by calling [phone] and asking for the resident technical solutions director for Dental service. Special Care Needs: Activity: [...] very uncomfortable and can t urinate, call [phone] or come to the emergency room. A [...] home going instructions. documented in this encounter [facility] 03-02-2024 Miscellaneous Notes Brief Operative Note [facility] OR 3 Chantel Ascencio 29 year old female Surgical Contact Serial Number: [id number] Preoperative Diagnosis: Pre-op Diagnosis * Caries [K02.9] Postoperative Diagnosis: * Caries [K02.9] Procedures: Full mouth x-ray [24701] Prophylaxis [69530] Restorations [66085] Floride application [25733] Surgeon(s): Surgeon(s): Elmer Topete DDS Staff: Senior Cost Analyst Nurse: Trudi Padilla Employment Consultant: Paula Contreras DDS; Melquiades Christie DDS Anesthesia: General Anesthesiologist: Milton Luan MD HEALTH SCREENER: Adalgisa Smith APRN-DARSHAN Assembler Flexible Leads: Dayanna Preciado MD Specimen(s): * No specimens [...] were discussed with the patient and/or legal technical sales representative. The risks, benefits and alternatives were reviewed. Questions regarding blood transfusions were answered. The patient /or the patient s legal technical sales representative agree with the plan for transfusion of blood and/or blood components. Surgical Case Number Data Unavailable Operating Room Data Unavailable Preoperative Diagnosis(es): Caries [k02.9] Surgeon: Dr. Topete Construction Checker Surgeon: Melquiades Arias DDS - Paula Contreras [...] the treatment plan included the following: Composite yarsani on tooth #7 surface ML. Amalgam restorations [...] 11:56 AM EST documented in this encounter [facility] 03-02-2024 Surgery Postoperative evaluation and management note Brief Operative Note [facility] OR 3 Chantel Ascencio 29 year old female Surgical Contact Serial Number: [id number] Preoperative Diagnosis: Pre-op Diagnosis * Caries [K02.9] Postoperative Diagnosis: * Caries [K02.9] Procedures: Full mouth x-ray [34211] Prophylaxis [63239] Restorations [70150] Floride application [08719] Surgeon(s): Surgeon(s): Elmer Topete DDS Staff: Senior Cost Analyst Nurse: Trudi Padilla Employment Consultant: Paula Contreras DDS; Melquiades Christie DDS Anesthesia: General Anesthesiologist: Milton Luna MD HEALTH SCREENER: Adalgisa Smith APRN-DARSHAN Assembler Flexible Leads: Dayanna Preciado MD Specimen(s): * No specimens [...] Topete DDS at 03/02/2024 11:[address] [facility] 03-02-2024 History and physical note Images from the original note were not included. Surgical History and Physical [facility] Amb[facility] Surgery [address] [place] [address] Name: Chantel Ascencio : 1995 29 year old CSN: [id number] Attending: Elmer Topete DDS Date of Admission: 03/02/2024 8:38 AM Room/Bed: [facility]/NONE Planned Procedure: Procedure(s): DENTAL RESTORATIONS [...] surgical history indicates: EXTRACTION, TOOTH (09/15/2014) Procedure: Minor [place] teeth; Surgeon: Bradley Goodwin DDS; Location: PERIOPERATIVE [...] or any previous visit (from the past 13351 hours). BMP (last 3 years, up to [...] Topete DDS at 03/02/2024 11:[address] [facility] Work Phone: 03-02-2024 Note Surgical History and Physical [facility] [address] [place] [address] Name: Chantel Ascencio : 1995 29 year old CSN: [id number] Attending: Elmer Topete DDS Date of Admission: 03/02/2024 8:38 AM Room/Bed: [facility]/NONE Planned Procedure: Procedure(s): DENTAL RESTORATIONS HPI: Chantel Ascencio is a 29 year old female with Pre-Op Diagnosis Codes: * Caries [K02.9]. Past Medical History: Past Medical History: Diagnosis Date Alopecia Autism (HCC) Biliary dyskinesia Bipolar disorder (HCC) Constipation Dysphagia Furunculosis BERT (generalized anxiety disorder) GERD (gastroesophageal reflux disease) Gaot's disease Hypothyroidism Intellectual disability OCD (obsessive compulsive disorder) ED (obstructive sleep apnea) No CPAP Pervasive developmental disorder (HCC) Seizure (HCC) Strabismus Thyroid nodule Past Surgical History: Review of patient's past surgical history indicates: EXTRACTION, TOOTH (09/15/2014) Procedure: [place] teeth; Surgeon: Bradley Goodwin DDS; Location: PERIOPERATIVE [...] or any previous visit (from the past 22164 hours). BMP (last 3 years, up to [...] Melquiades Stewart DDS 03/02/24 9:38 AM [facility] 03-02-2024 History and physical note Surgical [...] Topete DDS at 03/02/2024 11:48 AM EST [facility] 03-02-2024 Note Surgical Attestation : I have [...] Melquiades Stewart DDS 03/02/2024 9:38 AM [facility] 03-02-2024 Progress note Formatting of t his note is different from the original. Blood Attestation: ATTESTATION OF INFORMED CONSENT FOR BLOOD: The transfusion of blood and/or blood components were discussed with the patient and/or legal technical sales representative. The risks, benefits and alternatives were reviewed. Questions regarding blood transfusions were answered. The patient /or the patient s legal technical sales representative agree with the plan for transfusion of blood and/or blood components. [facility] Work Phone: 03-02-2024 History of Present illness Narrative ----- Saturday, March 02, 2024 at 11:38:59 AM ----- ----- Provider: [id number] Rebolledo DDS -- Clinic: [facility] ----- [place] notes, pt is ready for tx [place]. X-Rays look good, few cavities found and confirmed clinically. restos completed. OP Note by Paula Contreras DDS at 03/01/2024 6:14 PM Author: Paula Contreras DDS Service: Dentistry Author Type: Resident Filed: 03/02/2024 11:56 AM Date of Service: 03/01/2024 6:14 PM Note Type: OP Note Status: Cosign Needed Environmental Educator: Paula Contreras DDS (Resident) Cosign Required: Yes Expand All Collapse All Surgical Case Number Data Unavailable Operating Room Data Unavailable Preoperative Diagnosis(es): Caries [k02.9] Surgeon: Dr. Topete Construction Checker Surgeon: Melquiades Arias DDS - Paula Contreras [...] the treatment plan included the following: Composite yarsani on tooth #7 surface ML. Amalgam restorations [...] 2024 at 11:57:17 AM ----- ----- Provider: [id number] - Elmer Rebolledo DDS -- Clinic: [facility] ----- documented in this encounter [facility] 03-01-2024 Surgery Surgical operation note Surgical Case Number Data Unavailable Operating Room Data Unavailable Preoperative Diagnosis(es): Caries [k02.9] Surgeon: Dr. Topete Construction Checker Surgeon: Melquiades Arias DDS - Paula Contreras [...] the treatment plan included the following: Composite yarsani on tooth #7 surface ML. Amalgam restorations [...] Topete DDS at 03/02/2024 11:[address] [facility] 03-01-2024 Note Surgical Attestation : I have reviewed the patient's History and Physical Examination. I have personally seen and evaluated the patient, repeating cabrera portions. There is no significant interval change. Surgery is still indicated. Yes Consent reviewed and signed by patient/family: Yes Operative site verified and marked: Verified but not marked Paula Contreras DDS 03/01/2024 6:10 PM [facility] 02-24-2024 Telephone encounter Note Anesthesia consent obtained and scanned into [employer]. Scheduled for surgery [facility]/02[facility]2024[facility] Miscellaneous Notes Anesthesia consent obtained and scanned into [employer]. Scheduled for surgery 03/02/2024. [facility] Tele[facility] encounter Note Anesthesia consent obtained and scanned into [employer]. Scheduled for surgery 03/02/2024. [facility] Miscellaneous Notes Anesthesia consent obtained and scanned into [employer]. Scheduled for surgery 03/02/2024. documented in this encounter [facility] 02-19-2024 Instructions Kelly Cabello RN - 02/19/2024 [...] otherwise contacted. ? Expect a call from [facility] one business day prior to surgery for [...] your Preparing for Your Surgery/Procedure booklet or [email or web address] if you have questions. Contact the Pre-Admission Testing department at [phone] or your surgeon's office with any questions [...] stay with you after surgery. Please call [facility] if you need transportation assistance or have concerns about going home [phone]. ? PLEASE BE ON TIME. A late arrival may result in the cancellation/ delay of your surgery. Thank you for choosing [facility]; it is our pleasure to care for you documented in this encounter [facility] 02-19-2024 Evaluation note Telephone History Chantel Ascencio, [id number] 02/19/2024 Patient was identified by name and date of via Ivon, caregiver. Needs: Physical, Neck Circumference, BHCG, and ED on DOS. Note: OSH records/labs scanned to remedial reading teacher. If the patient becomes ill prior to procedure or surgery, they are to call their provider or surgeon's office directly. 29 year old 136.6 lbs 5' 4 Date of Surgery: 03/02 Surgeon: Yoselyn Type of Surgery: DENTAL RESTORATIONS HISTORY OF PRESENT ILLNESS: telephone history for the upcoming surgery at 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 Fluticasone Propionate (FLONASE NASAL) [place] into each nostril. Selenium (SELENIMIN ORAL) Take [...] otherwise contacted. ? Expect a call from [facility] one business day prior to surgery for [...] your Preparing for Your Surgery/Procedure booklet or [email or web address] if you have questions. Contact the Pre-Admission Testing department at [phone] or your surgeon's office with any questions [...] stay with you after surgery. Please call [facility] if you need transportation assistance or have concerns about going home [phone]. ? PLEASE BE ON TIME. A late arrival may result in the cancellation/ delay of your surgery. Thank you for choosing [facility]; it is our pleasure to care for you Kelly Cabello RN Time Spent Performing this Telephone History: 48 with follow-up [facility]: [facility] 02-19-2024 Miscellaneous Notes Telephone History Chantel Ascencio, [id number] 02/19/2024 Patient was identified by name and [...] telephone history for the upcoming surgery at [facility], [address] [place], enter through the west entrance doors. 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 Fluticasone Propionate (FLONASE NASAL) [place] into each nostril. Selenium (SELENIMIN ORAL) Take [...] otherwise contacted. ? Expect a call from [facility] one business day prior to surgery for [...] your Preparing for Your Surgery/Procedure booklet or [email or web address] if you have questions. Contact the Pre-Admission Testing department at [phone] or your surgeon's office with any questions [...] stay with you after surgery. Please call [facility] if you need transportation assistance or have concerns about going home [phone]. ? PLEASE BE ON TIME. A late arrival may result in the cancellation/ delay of your surgery. Thank you for choosing [facility]; it is our pleasure to care for you Kelly Cabello RN Time Spent Performing this Telephone History: 48 with follow-up [place]: documented in this encounter [facility] 02-19-2024 Miscellaneous Notes Telephone History Chantel Ascencio, [id number] 02/19/2024 Patient was identified by name and date of via Ivon, caregiver. Needs: Physical, Neck Circumference, BHCG, and ED on DOS. Note: OSH records/labs scanned to remedial reading teacher. If the patient becomes ill prior to procedure or surgery, they are to call their provider or surgeon's office directly. 29 year old 136.6 lbs 5' 4 Date of Surgery: 03/02 Surgeon: Yoselyn Type of Surgery: DENTAL RESTORATIONS HISTORY OF PRESENT ILLNESS: telephone history for the upcoming surgery at [facility], [address] [place], enter through the [facility] doors. 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 Fluticasone Propionate (FLONASE NASAL) [place] into each nostril. Selenium (SELENIMIN ORAL) Take [...] otherwise contacted. ? Expect a call from [facility] one business day prior to surgery for [...] your Preparing for Your Surgery/Procedure booklet or [email or web address] if you have questions. Contact the Pre-Admission Testing department at [phone] or your surgeon's office with any questions [...] stay with you after surgery. Please call [facility] Social Work if you need transportation assistance or have concerns about going home [phone]. ? PLEASE BE ON TIME. A late arrival may result in the cancellation/ delay of your surgery. Thank you for choosing [facility]; it is our pleasure to care for you Kelly Cabello RN Time Spent Performing this Telephone History: 48 with follow-up [place]: documented in this encounter [facility] 10-21-2023 History and physical note Images from the original note were not included. Surgical History and Physical [facility] [address] [place] [address] Name: Chantel Ascencio : 1995 29 year old CSN: [id number] Attending: Elmer Topete DDS Date of Admission: 03/02/2024 8:38 AM Room/Bed: [facility]/NONE Planned Procedure: Procedure(s): DENTAL RESTORATIONS [...] surgical history indicates: EXTRACTION, TOOTH (09/15/2014) Procedure: [place] teeth; Surgeon: Bradley Goodwin DDS; Location: PERIOPERATIVE [...] or any previous visit (from the past 03209 hours). BMP (last 3 years, up to [...] 11:48 AM EST documented in this encounter [facility] 04-30-2022 Miscellaneous Notes Bina from [facility] calling in. She wanted to know where the pt was at on the OR wait list. E-mail sent to Connie E-mail sent 04/30/[address] this encounter [facility] 04-30-2022 Telephone encounter Note Bina from [facility] calling in. She wanted to know where the pt was at on the OR wait list. E-mail sent to Connie E-mail sent 04/30/22 [facility] 03-13-2022 History of Present illness Narrative ----- [...] available. Legal Guardian: Toshia Ascencio Phone #: [phone] NOTE: Patient had a hard time leaning her head back, but allowed me to look. Patient not indicating she is in any pain. #8 is very discolored - most likely will need RCT treatment. Gingiva very red and irritated. Caregiver did not know who patient's guardian was or contact information, looked it up in [employer]. Next Visit: OR documented in this encounter [...] UNLISTED PROCEDURE, DENTOALVEOLAR STRUCTURES DENTAL RESTORATIONS Elmer Topete DDS [address] [id number] Phone: tel: fax: [facility] [employer] [address] [facility] [address] Phone: tel: Referral ID Status Reason Start Date Expiration Date Visits Re quested Visits Authorized [id number] [address] [facility] Summary Purpose Family History No Family History [...] To Contact Anesthesiology Diagnoses Caries Elmer Topete, VIANNEY [address] [place] [address] [facility] PRE ADMISSION TESTING [address] [place] [address] Referral ID Status Reason Start Date Expiration Date V isits Requested Visits Authorized [id number] Authorized 12/27/2023 12/26/2024 1 1 Scheduling Instructions Your surgical team will reach out to you to schedule a pre-admission testing appointment. Question Answer Reason for consult? Recommended PAT Risk Score Additional Source Comments INFORMATION SOURCE (unrecogn ized section and content) DATE CREATED AUTHOR 10/16/2017 [facility] DATE CREATED AUTHOR AUTHOR'S ORGANIZ ATION 09/02/2022 [facility] DATE CREATED AUTHOR AUTHOR'S ORGANIZ ATION 01/11/2023 [facility] DATE CREATED AUTHOR AUTHOR'S ORGANIZ ATION 03/10/2024 [facility] DATE CREATED AUTHOR AUTHOR'S ORGANIZ ATION 08/28/2024 [facility] DATE CREATED AUTHOR AUTHOR'S ORGANIZ ATION 10/06/2024 [facility] Reason for Visit (unrecogniz ed section and content) Reason Onset Date Comments Dental 04/30/2022 Reason Comments Seizures Reason Onset Date Comments PAT 02/21/2024 Anesthesia conse nt obtained Reason Onset Date Comments PAT 02/24/2024 Anesthesia conse nt obtained Reason Onset Date Comments Pre-surgical Evaluation 02/26/2024 DD adult dental restorations 03/02 under [place] at [place]. PAT completed - anesthesia consent. PAT RN spoke to Mary (nurse), confirmed NPO, [place] address, and 0900 arrival time Reason Comments Toenail Problem RT grt nail fungal Reason Comments Toenail Care Non DM nail care Care Teams (unrecognized sec tion and content) Television Parts Tester Relationship Specialty Start Date End Date Unallocated, May Schneider MD [address] [place] [address] PCP - General Family Medicine 07/09/23 Kris Mcguire MD [address] [place] [address] Referring Physician Neurology 07/09/23 Television Parts Tester Relationship Specialty Start Date End Date Unallocated, May Schneider MD [address] [place] [address] PCP - General Family Medicine 07/09/23 Kris Mcguire MD [address] [place] [address] Referring Physician Neurology 07/09/23 Television Parts Tester Relationship Specialty Start Date End Date Nathan Iyer MD [address] [place] [address] PCP - General Family Medicine 03/10/24 Kris Mcguire MD [address] [place] [address] Referring Physician Neurology 07/09/23 Television Parts Tester Relationship Specialty Start Date End Date Nathan Iyer MD [facility] [address] [place] [address] PCP - General Family Medicine 03/10/24 Kris Mcguire MD [address] [place] [address] Referring Physician Neurology 07/09/23 Television Parts Tester Relationship Specialty Start Date End Date Nathan Iyer MD [facility] [address] [place] [address] PCP - General Family Medicine 03/10/24 Kris Mcguire MD [address] [place] [address] Referring Physician Neurology 07/09/23 Television Parts Tester Relationship Specialty Start Date End Date Nathan Iyer MD [facility] [address] [place] [address] PCP - General Family Medicine 03/10/24 Kris Mcguire MD [address] [place] [address] Referring Physician Neurology 07/09/23 Television Parts Tester Relationship Specialty Start Date End Date Nathan Iyer MD [facility] [address] [place] [address] PCP - General Family Medicine 03/10/24 Kris Mcguire MD [address] [place] [address] Referring Physician Neurology 07/09/23 Television Parts Tester Relationship Specialty Start Date End Date Nathan Iyer MD [facility] [address] [place] [address] PCP - General Family Medicine 03/10/24 Kris Mcguire MD Referring Physician Neurology 07/09/23 Television Parts Tester Relationship Specialty Start Date End Date Nathan Iyer MD [facility] [address] [place] [address] PCP - General Family Medicine 03/10/24 Kris [...] BE BASED ON THE PRIMARY CLINICAL RECORDS. [employer] [facility]. provides no warranty or guarantee of the accuracy or completeness of information in this document.
--- OUTSIDE RECORDS SUMMARY | 2024-10-29 06:56 | XMS_ITS | Clinical Summary ---
Author Organization [facility] tem Address [id number] [address] [place] [address] Care Team Providers Care Publications Editor Name Role Phone Nathan Iyer DO Primary [...] Documents on File Type Date Recorded Patient Jewelry Inspector Expl anation Living Will 09/03/2017 4:36 PM LEGAL GURA DIANSHIP/AGREEMENT FOR CARE [facility] Care Teams Publications Editor Relationship Specialty Start Date End Date Nathan Iyer DO [address] [place] [address] PCP - General Family Medicine 08/23/17
--- OUTSIDE RECORDS SUMMARY | 2024-10-29 06:56 | XMS_ITS | Clinical Summary ---
Author Organization [facility] Address [address] [place], [place] [id number] Care Team Providers Care Stationary Engineer Name Role Phone Nathan Iyer DO Primary Care Provider [phone] Social History Tobacco Use Types Packs/Day Years [...] Covid-19 Vaccine (2023- season) 2023 Influenza Vaccine (#1) 2024 Insurance [address] [id number] MEDICAID [place] Care Teams Stationary Engineer Relationship Specialty Start Date End Date Nathan Iyer DO PCP - General Family Medicine 09/03/12
[2024-10-29 07:22] LABS: Hematocrit 39.4 % (36.0-48.0); Hemoglobin 13.8 g/dL (12.0-16.0); Immature Granulocytes Abs Auto 0.03 10^3/uL (0.00-0.03); Immature Granulocytes Pct Auto 0.5 % (0.0-0.5); Lymphocytes Absolute Auto 4.0 10^3/uL (1.2-3.8); Mean Corpuscular HGB Conc 35.0 g/dL (29.9-35.2); Mean Corpuscular Hemoglobin 34.8 pg (26.7-34.0); Mean Corpuscular Volume 99.2 fL (81.0-99.0); Platelet Count 164 10^3/uL (150-450); Red Blood Count 3.97 10^6/uL (4.20-5.40); White Blood Count 6.6 10^3/uL (4.0-11.0)
[2024-10-29 08:11] LABS: Alanine Aminotransferase 13 U/L (14-59); Albumin Globulin Ratio 0.6; Albumin Level 2.8 g/dL (3.4-5.0); Alkaline Phosphatase 46 U/L (46-116); Anion Gap 9.5; Aspartate Amino Transferase 21 U/L (15-37); Blood Urea Nitrogen 11.0 mg/dL (7.0-18.0); Calcium 9.4 mg/dL (8.5-10.1); Carbon Dioxide 31.6 mmol/L (21.0-32.0); Chloride 100 mmol/L (98-107); Estimated GFR (African America >60 (>=60 mL/min/1.73m^2); Estimated GFR (Non-African Ame >60 (>=60 mL/min/1.73m^2); Free T3 1.90 pg/mL (2.18-3.98); Globulin 4.5 g/dL; Glucose 71 mg/dL (74-106); Potassium 4.1 mmol/L (3.5-5.1); Sodium 137 mmol/L (136-145); Thyroid Stimulating Hormone 8.031 uIU/mL (0.358-3.740); Total Protein 7.3 g/dL (6.4-8.2)
== END 2024-10-29 06:54 | disposition home or self-care (01) ==
LOC: LAB 06:54
PROVIDERS: PCP Family Medicine; Visit Provider Family Medicine
DX: E03.9 Hypothyroidism, unspecified (principal)
CPT/HCPCS: 36415; 80053; 84439; 84443; 84481; 85025

== ENCOUNTER 2024-12-08 07:15 | Outpatient (OUT) | payer MEDICARE, MEDICAID, SELFPAY ==
--- OUTSIDE RECORDS SUMMARY | 2024-11-24 09:30 | XMS_ITS | Encounter Summary ---
Author Organization [facility] Address [address] [place] [address] Care Team Providers Care Tamping Machine Operator Name Role Phone Pete Mcguire MD Unavailable [phone] Nathan Iyer MD Primary Care Provider [phone] Reason for Visit * Reason Comments Toenail Care Non DM nail care Encounter Details Date Type Department Care Team (Latest Contact Info) Description 11/24/2024 9:30 AM EDT Procedure Visit [facility] [address] [place] [address] Lai Alston, DPM [facility] [address] [facility] [place] [address] Onychomycosis (Primary Dx); Pain in right toe(s); Pain in left toe(s) Social History Tobacco Use Types Packs/Day Years Used Date Smoking Tobacco: Never Smokeless Tobacco: Never Tobacco Cessation:Counseling Given: Yes Alcohol Use Standard Drinks/Week Comments Never 0 (1 standard drink = 0.6 oz pur e alcohol) Comments Unknown Sex and Gender Information Value Date Recorded Sex Assigned at Not on file Legal Sex Female 11:47 PM EDT Gender Identity Not on file Sexual Orientation Not on file documented as of this encounter Last Filed Vital Signs Vital Sign Reading Time Taken Comments Blood Pressure 115/63 11/24/2024 10:00 AM EDT Pulse 70 11/24/2024 10:00 AM EDT Temperature - - Respiratory Rate - - Oxygen Saturation - - Inhaled Oxygen Concentration - - Weight 58.1 kg (128 lb) 11/24/2024 10:00 AM EDT Height 165.1 cm (5' 5 ) 11/24/2024 10:00 AM EDT Body Mass Index 21.3 11/24/2024 10:00 AM EDT documented in this encounter Progress Notes * Lai Alston DPM [facility] - 11/24/2024 9:30 AM EDT Images from the original note were not [...] Linzess [Linaclotide] Ethosuximide Rash Past Medical History: Active Ambulatory Problems Diagnosis Date Noted Anxiety disorder 09/03/2017 Autism (HCC) 09/03/2017 History of seizure 09/03/2017 Dizziness 07/03/2018 Pseudobulbar affect 08/06/2023 Gait instability 08/06/2023 Seizure disorder (HCC) Mental disability 01/15/2024 Resolved Ambulatory Problems Diagnosis Date Noted No Resolved Ambulatory Problems Past Medical History: Diagnosis Date Anxiety 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 They were painful to palpation 19247 on the right 09263 on the left. VASC: DP /PT were nonpalpable bilateral. Capillary refill time < 3 seconds Digits 1-5 bilateral NEURO: [place] Cecy 5.07 monofilament was intact B/L. Vibratory [...] were debrided both in length and thickness 1through 10. MAURA Salas documented in this encounter Plan of Treatment Upcoming Encounters Date Type Department Care Team (Late st Contact Info) Description 02/23/2025 9:30 AM EST Procedure Visit [facility] [address] [place] [address] Lai Alston DPM [facility] [address] [place] [address] documented as of this encounter Visit Diagnoses Diagnosis Onychomycosis- Primary Dermatophytosis of nail Pain in right toe(s) Pain in left toe(s) documented in this encounter Care Teams Tamping Machine Operator Relationship Specialty Start Date End Date Nathan Iyer MD [address] [facility] [address] [place] [address] PCP - General Family Medicine 03/10/24 Pete Mcguire MD Referring Physician Neurology 07/09/23 documented as of this encounter
--- OUTSIDE RECORDS SUMMARY | 2024-12-08 07:17 | XMS_ITS | Clinical Summary ---
Author Organization [facility] Healthcare Address [address] [place] [address] Care Team Providers Care Safety And Health Manager Name Role Phone Pete Mcguire MD Unavailable Nathan Iyer MD Primary Care Provider Allergies Active Allergy Reactions Criticality Noted Date Comments Ethosuximide Rash Low 09/15/2014 Linaclotide 08/06/2023 Medications ammonium lactate (Amlactin) 12 % cream Apply 2 application topically Daily Active busPIRone (Buspar) 30 MG tablet Take 30 mg by mouth in the morning and 30 mg in the evening and 30 mg before bedtime. Active cloNIDine (Catapres) 0.2 MG tablet Take 0.2 mg by mouth in the morning and 0.2 mg at noon and 0.2 mg in the evening and 0.2 mg before bedtime. Active divalproex (Depakote) 125 MG EC tablet Take 500 mg by mouth in the morning and 500 mg in the evening and 500 mg before bedtime. Active divalproex (Depakote) 125 MG EC tablet Take 1,000 mg by mouth at bedtime Do not crush, chew, or split. Active famotidine (Pepcid) 40 MG tablet Take 40 mg by mouth Daily Active guanFACINE (Tenex) 2 MG tablet Take 2 mg by mouth in the morning and 2 mg before bedtime. Active lamoTRIgine (LaMICtal) 100 MG tablet Take 100 mg by mouth at bedtime Active lamoTRIgine (LaMICtal) 150 MG tablet Take 150 mg by mouth in the morning. Active loratadine (Claritin) 10 MG tablet Take 10 mg by mouth Daily Active Melatonin 3 MG tablet dispersible Take 3 mg by mouth at bedtime Active norethindrone-et hinyl estradiol (Ortho-Novum, Nortrel) 1-35 MG-MCG tablet Take 1 tablet by mouth Daily Active paliperidone (Invega) 3 MG 24 hr tablet Take 3 mg by mouth in the morning and 3 mg before bedtime. Do not crush, chew, or split.. Active polyethylene glycol, PEG, 3350 (Miralax) 17 g packet Take 17 g by mouth Daily Active QUEtiapine (SEROquel) 200 MG tablet Take 200 mg by mouth at bedtime Active QUEtiapine (SEROquel) 400 MG tablet Take 400 mg by mouth at bedtime Active levothyroxine (Synthroid, Levoxyl) 200 MCG tablet Take 200 mcg by mouth in the morning. Take before meals. Active levothyroxine (Synthroid, Levoxyl) 25 MCG tablet Take 25 mcg by mouth in the morning. Take before meals. Active diazePAM (Valium) 5 MG tabletIndication s:Gait instability,Deve lopmental delay,Seizure disorder (HCC) Take 1 tablet (5 mg) by mouth 1 time for 1 dose 30 minutes prior to MRI 1 tablet 5 Active Active Problems Problem Noted Date Diagnosed Date Mental disability 01/15/2024 Overview (01/15/2024): Mental Retardation She has undelrying Autism, MRDD and anxiety with s/s of PBA. She follows with psychiatry and was recently started on Lexapro and is doing well. Pseudobulbar affect 08/06/2023 Gait instability 08/06/2023 Overview (01/15/2024): Patient has been experiencing increased gait instability and balance problems in the past month noted by [place], increased tone in her extremities, dizziness when looking upwards which has been contributing to falls. She has had dizziness in the past, as noted above. She had an unwitnessed fall without reported loss of consciousness. She was evaluated recently after the fall at [facility] and had a Head CT, which revealed no acute process. There was left supraorbital soft tissue laceration. Blood work 11/23/2022 revealed Lamictal 12.4, valproic acid 85. Carotid ultraound was very limited due to patient cooperation, no hemodynamic significant stenosis noted. For MRI or CTA she would require sedation per [place]. Her balance is stable and there have been no falls since her last visit. Dizziness 07/03/2018 Anxiety disorder 09/03/2017 Autism 09/03/2017 History of seizure 09/03/2017 Seizure disorder Overview (01/15/2024): Patient with history of seizure disorder. She was previously on Topamax and this was weaned. Ambulatory EEG from 2018 was normal. She is currently treated with Depakote and Lamictal. Bloodwork 08/07/2022 revealed Lamictal level 11.2, Depakote level 80.3, platelets 231. She is overall at baseline with no recent breakthrough events. Encounters Date Type Department Care Team Description 11/27/2024 Abstract [facility] [address] [place] [address] Lai Alston, DPM FACFAS 11/24/2024 9:30 AM EDT Procedure Visit [facility] [address] [place] [address] Lai Alston, DPM FACFAS Onychomycosis (Primary Dx); Pain in right toe(s); Pain in left toe(s) 11/24/2024 Bamboo flowsheet [facility] [address] [place] [id number] Lai Alston, DPM FACFAS from Last 3 Months Social History Tobacco Use Types Packs/Day Years [...] AM EDT Temperature - - Respiratory Rate 16 01/21/2024 11:05 AM EDT Oxygen Saturation 96% 01/21/2024 11:05 AM EDT Inhaled Oxygen Concentration - - Weight 58.1 kg (128 lb) 11/24/2024 10:00 AM EDT Height 165.1 cm (5' 5 ) 11/24/2024 10:00 AM EDT Body Mass Index 21.3 11/24/2024 10:00 AM EDT Plan of Treatment Upcoming Encounters Date Type Department Care Team (Late st Contact Info) Description 02/23/2025 9:30 AM EST Procedure Visit [facility] [address] [facility] [place] [address] Lai Alston, MAURA FACFAS [address] [facility] [place] [address] Health Maintenance Due Date Last Done Comments Pap Smear 2014 Cervical Cancer Screening 2023 HPV/Cotest 2023 Influenza Vaccine (#1) [address] [place] [address] MEDICARE [place]ICA[place] Care Teams Safety And Health Manager Relationship Specialty Start Date End Date Nathan Iyer MD [facility] [employer] [address] [place] [address] PCP - General Family Medicine 03/10/24 Pete Mcguire MD Referring Physician Neurology 07/09/23
--- OUTSIDE RECORDS SUMMARY | 2024-12-08 07:17 | XMS_ITS | Encounter Summary ---
Author Organization [facility] Address [address] [place] [address] Care Team Providers Care Inspector Repairer Name Role Phone Pete Mcguire MD Unavailable [phone] Nathan Iyer MD Primary Care Provider [phone] Encounter Details Date Type Department Care Team (Late Contact Info) Description 11/24/2024 Bamboo flowsheet [facility] [address] [place] [address] Lai Alston, DPM FACFAS [address] [place] [address] Social History Tobacco Use Types Packs/Day Years Used Date Smoking Tobacco: Never Smokeless Tobacco: Never Alcohol Use Standard Drinks/Week Comments Never 0 (1 standard drink = 0.6 oz pur e alcohol) Comments Unknown Sex and Gender Information Value Date Recorded Sex Assigned at Not on file Legal Sex Female 11:47 PM EDT Gender Identity Not on file Sexual Orientation Not on file documented as of this encounter Plan of Treatment Upcoming Encounters Date Type Department Care Team (Late Contact Info) Description 02/23/2025 9:30 AM EST Procedure Visit [facility] [address] [place] [address] Lai Alston, DPM FACFAS [address] [place] [address] documented as of this encounter Visit Diagnoses Not on filedocumented in this encounter Care Teams Inspector Repairer Relationship Specialty Start Date End Date Nathan Iyer MD [address] [facility] [address] [facility] [address] [place], [place] [address] PCP - General Family Medicine 03/10/24 Pete Mcguire MD Referring Physician Neurology 07/09/23 documented as of this encounter
--- OUTSIDE RECORDS SUMMARY | 2024-12-08 07:17 | XMS_ITS | Encounter Summary ---
Author Organization [facility] Address [address] [place] [address] Care Team Providers Care Continuous Improvement Lead Name Role Phone Pete Mcguire MD Unavailable [phone] Nathan Iyer MD Primary Care Provider [phone] Encounter Details Date Type Department Care Team (Late st Contact Info) Description 11/27/2024 Abstract [facility] [address] [place] [phone] Lai Alston, DPM FACFAS [address] [place] [address] Social History Tobacco Use Types Packs/Day Years [...] EST Procedure Visit [facility] [address] [place] [address] Lai Alston, DPM FACFAS [address] [place] [address] documented as of this encounter Visit Diagnoses Not on filedocumented in this encounter Care Teams Continuous Improvement Lead Relationship Specialty Start Date End Date Nathan Iyer MD [facility] [employer] [address] [place] [address] PCP - General Family Medicine 03/10/24 Pete Mcguire MD Referring Physician Neurology 07/09/23 documented as of this encounter
--- OUTSIDE RECORDS SUMMARY | 2024-12-08 07:17 | XMS_ITS | Clinical Summary ---
Author Organization [email or web address] tem Address [id number] [address] [place] [address] Care Team Providers Care Telecommunicator Supervisor Name Role Phone Nathan Iyer DO Primary [...] 07/01/2019 1:20 PM EDT Plan of Treatment Upcoming Encounters Date Type Department Care Team (Late st Contact Info) Description 12/24/2024 10:15 AM EDT Office Visit [facility] [address] [place] [address] Lyn Monroy, PA-C [address] [facility] [address] [place] [address] Health Maintenance Due Date Last Done Comments Depression Screening 2005 Tobacco Screening 2005 Adult BMI Screening 2011 DTaP,Tdap and Td Vaccines (1 - Tdap) 01/02/2012 Pap Smear 2014 Influenza Vaccine 12/21/2024 Medical Devices Not on file Insurance MEDICAID [place] MEDICARE Advance Directives Documents on File Type Date Recorded Patient Director Business Systems Expl anation Living Will 09/03/2017 4:36 PM LEGAL [employer] DIAN[employer]IP/AGREEMENT FOR CARE [facility] Care Teams Telecommunicator Supervisor Relationship Specialty Start Date End Date Nathan Iyer DO [address] [place] [address] PCP - General Family Medicine 08/23/17
--- OUTSIDE RECORDS SUMMARY | 2024-12-08 07:17 | XMS_ITS | Clinical Summary ---
Author Organization [facility] Address [address] [place], [place] [id number] Care Team Providers Care Pesticide Applicator Name Role Phone Nathan Iyer DO Primary [...] 3-dose series) 01/01 Cervical Cancer Screening 2014 HPV Vaccine (1 - 3-dose SCDM series) 01/02/2020 Influenza Vaccine (#1) 2024 [address] [place] [address] MEDICAID [place] Care Teams Pesticide Applicator Relationship Specialty Start Date End Date Nathan Iyer DO PCP - General Family Medicine 09/03/12
--- OUTSIDE RECORDS SUMMARY | 2024-12-08 07:19 | XMS_ITS | CCD ---
Author Organization [facility]iniSym[facility] Care Team Providers Care Orthoptist Name Role Phone PHYSICIAN, DEFAULT Unavailable Unavailable [...] Consulting Unavailable MISC, DR HERNANDEZ Consulting Unavailable TILLEY, NATHAN Attending Unavailable TILLEY, NATHAN Annitting Unavailable Unavailable Primary Care Provider Unavailabl e Rock OLSON, Noms Provider Primary Care Provi roselyn Kris Mcguire MD Unavailable [phone] Unallocated MD [facility] Provider Primary Care Jaspreet roselyn ELMER TOPETE Attending Unavailable PROVIDER, UNKNOWN Admitting Unavailable PROVIDER, UNKNOWN Admitting Unavailable PROVIDER, UNKNOWN Attending Unavailable ELMER TOPETE Admitting Unavailable ELMER TOPETE Attending Unavailable Nathan Tilley MD Primary Care Provider [phone] Kris Mcguire MD Unavailable Eduarda De Anda Attending Unavailable Eduarda De Anda Admitting Unavailable Nathan Tilley Primary Care Unavailable Kris Mcguire MD Unavailable [phone] EDUARDA DE ANDA Attending Unavailable DOLLAI REYNOLDS Attending Unavailable EDUARDA DE ANDA Attending Unavailable DOLLAI REYNOLDS Attending Unavailable DOLCELAI Attending Unavailable RADHA MARTINEZ Attending Unavailable LAI ALVARADO Attending Unavailable Allergies Allergy Classification Reported Allergen(s) Allergy Type Date of Onset Reaction(s) Facility (20 sources) Ethosuximide; Translations: [ETHOSUXIMIDE] Drug Allergy 09-15-2014 [facility] (1 source) Allopurinol Drug Allergy 07-16-2013 [facility] (1 source) Ethosuximide Drug Allergy 07-16-2013 [facility] (20 sources) linaclotide; Translations: [LINACLOTIDE] Drug Allergy 08-06-2023 [facility] Medications Current Medications Medication Drug Class(es) Dates [...] 0 Active diazePAM 5 mg oral tablet (4 sources) Benzodiazepine Start: 08-11-2024 diazePAM (Valium) 5 MG tablet Indications: Gait instability , Developmental delay , Seizure disorder (HCC) Take 1 tablet (5 mg) [...] (12 sources) Corticosteroid Fluticasone Propionate (FLONASE NASAL) Bailey into each nostril. Suspended Fluticasone Prop ionate (FLONASE NASAL) Bailey into each nostril. Active Fluticasone Prop ionate (FLONASE NASAL) Bailey into each nostril. 0 Active guanFACINE 2 [...] Active ammonium lactate 120 mg/ml topical cream (16 sources) ammonium lactate (Amlactin) 12 % cream [...] by mouth daily. Active polyethylene glycol 3350 08601 mg powder for oral solution (20 sources) [...] ORAL) Take by mouth. 0 Active sennosides, mcfp 15 mg oral tablet (12 sources) take [...] Problem Date Documented Date Episodic/Chronic Anxiety disorders (17 sources) Anxiety disorder; Translations: [Anxiety disorder, unspecified] Onset: 09-03-2017 08-06-2023 Chronic Delirium, dementia, and amnestic and other cognitive disorders (20 sources) Pseudobulbar affect; Translations: [Pseudobulbar affect] Onset: 08-06-2023 08-06-2023 Chronic Developmental disorders (19 sources) Intellectual disability; Translations: [Unspecified intellectual disabilities] Onset: 01-15-2024 01-15-2024 Chronic Disorders usually diagnosed in infancy, childhood, or adolescence (20 sources) Autism spectrum disorder; Translations: [Autistic disorder] [...] [HORMONE REPLACEMENT THERAPY] Onset: 07-23-2022 Episodic Mycoses (5 sources) Onychomycosis; Translations: [Tinea unguium] 03-10-2024 Episodic Open wounds of head; neck; and trunk (4 sources) Laceration without foreign body of other part of head, initial encounter; Translations: [LAC W/O FB OTH PART HEAD INIT ENC] Onset: 07-21-2022 Episodic Other aftercare (5 sources) 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 therapy; Translations: [OTH USP CURRENT DRUG THERAPY] Onset: 04-03-2022 Episodic Other connective tissue disease (5 sources) Pain of toe of right foot; Translations: [Pain in right toe(s)] 03-10-2024 Episodic Other connective tissue disease (5 sources) Pain of toe of left foot; [...] Episodic/Chronic Conditions associated with dizziness or vertigo (17 sources) Dizziness; Translations: [Dizziness and giddiness] Onset: 07-03-2018 08-06-2023 Episodic Disorders of teeth and jaw (12 sources) Dental caries; Translations: [Dental caries, unspecified] Onset: 12-27-2023 Resolved: 03-02-2024 12-27-2023 Episodic Other nervous system disorders (20 sources) Abnormal gait; Translations: [Unsteadiness on feet] Onset: 08-06-2023 01-15-2024 Episodic Residual codes; unclassified (17 sources) Personal history of other specified conditions; Translations: [Personal history of other specified diseases] Onset: 09-03-2017 08-06-2023 Episodic Results Test Name Value Interpretation Reference Range Facility Anesthesia Postprocedure Estelle luationon 03-02-2024 [employer] Systems Operator Authentication Interface Message Text Anesthesia Postoperative Assessment: [...] EVENTS: No notable events documented. 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 Scheduled for surgery 03/02/2024. ) Questions answered / anesthesia plan accepted ( Anesthesia consent obtained and scanned into [employer]. Scheduled for surgery 03/02/2024. ) Past medical history, surgical history, allergies, and medications reviewed. Pertinent laboratory tests, EKG, imaging, and consults reviewed and I have personally seen and evaluated the patient, repeating cabrera portions of the history and physical examination. Attestation: Anesthesia options were discussed with the patient and/or legal branch customer service representative. The risks, benefits and alternatives were reviewed. Questions regarding anesthesia were answered. Patient and/or legal branch customer service representative knows such anesthetics and procedures may be performed by Resident physicians, Certified Anesthesiologist Assistants, or Certified Nurse Anesthetists under the supervision of a physician. The patient /or the patient's legal branch customer service representative agree with the plan for anesthesia. Comment: Anesthesia consent obtained and scanned into Mixwit. Scheduled for surgery 03/02/2024. MHPATFORM Normal [facility] [place] [employer] Surveillance Systems Operator Authentication Interface Message Text Patient taken to [...] surgical history indicates: EXTRACTION, TOOTH (09/15/2014) Procedure: [place] teeth; Surgeon: Bradley Goodwin DDS; Location: PERIOPERATIVE SERVICES; Service: Oral EUA, ORAL (09/15/2014) Procedure: EUA, ORAL; Surgeon: Bradley Goodwin DDS; Location: PERIOPERATIVE SERVICES; Service: Oral Allergies: Linzess [linaclotide] and Zarontin [ethosuximide] Basic Operating Room Facts: Surgeon(s): Elmer Topete DDS Anesthesiologist: Milton Luna MD ASSISTANT INFANT TODDLER TEACHER: Adalgisa Smith APRN-DARSHAN Client Application Support Engineer: Dayanna Preciado MD DENTAL RESTORATIONS (Right: [...] understanding of the report was received. Adalgisa Smith APRN-DARSHAN Normal [facility] Blood Attestationon 03-02-20 Ground Surveillance Systems Operator Authentication Interface Message Text Blood Attestation: ATTESTATION OF INFORMED CONSENT FOR BLOOD: The transfusion of blood and/or blood components were discussed with the patient and/or legal branch customer service representative. The risks, benefits and alternatives were reviewed. Questions regarding blood transfusions were answered. The patient /or the patient's legal branch customer service representative agree with the plan for transfusion of blood and/or blood components. Normal [facility] Brief Operative Noteon 03-02 Ground Surveillance Systems Operator Authentication Interface Message Text Brief Operative Note PHE OR 3 Chantel Ascencio 29 year old female Surgical Contact Serial Number: [id number] Preoperative Diagnosis: Pre-op Diagnosis * Caries [K02.9] Postoperative Diagnosis: * Caries [K02.9] Procedures: Full mouth x-ray [44569] Prophylaxis [43147] Restorations [35416] Floride application [52011] Surgeon(s): Surgeon(s): Elmer Topete DDS Staff: Program Director/Music Director Nurse: Trudi Padilla Precision Thread Grinder Operator: Paula Contreras DDS; Melquiades Christie DDS Anesthesia: General Anesthesiologist: Milton Luna MD ASSISTANT INFANT TODDLER TEACHER: Adalgisa Smith APRN-DARSHAN Client Application Support Engineer: Dayanna Preciado MD Specimen(s): * No [...] Contreras DDS 03/02/2024 11:48 AM Normal [facility] Progress Noteson 03-02-2024 Ground Surveillance Systems Operator Authentication Interface Message Text ----- Saturday, March 02, 2024 at 11:38:59 AM ----- ----- Provider: Pradip Rebolledo DDS -- Clinic: [facility] ----- [place] notes, pt is ready for tx [place]. X-Rays look good, few cavities found and confirmed clinically. restos completed. OP Note by Paula Contreras DDS at 03/01/2024 6:14 PM Author: Paula Contreras DDS Service: Dentistry Author Type: Resident Filed: 03/02/2024 11:56 AM Date of Service: 03/01/2024 6:14 PM Note Type: OP Note Status: Cosign Needed Calculus Tutor: Paula Contreras DDS (Resident) Cosign Required: Yes Expand All Collapse All Surgical Case Number Data Unavailable Operating Room Data Unavailable Preoperative Diagnosis(es): Caries [k02.9] Surgeon: Dr. Topete Orthotics Prosthetics Technician Surgeon: Melquiades Arias DDS - Paula Contreras [...] the treatment plan included the following: Composite gnosticism on tooth #7 surface ML. Amalgam restorations [...] ----- Provider: Pradip Rebolledo DDS -- Clinic: [facility] ----- Normal [facility] URINE HCG-IN OFFICEon 2023 HCG ( test) Ql (U) Negative Negative [facility] Negative Internal Control Negative Negative [facility] Positive Internal Control Positive Positive [facility] URINE HCG-IN OFFICEOrdered B y: Aure Ceballosangela on 03-02-2024 HCG ( test) Ql (U) Negative Negative [facility] Interpretation and review of laboratory results Normal [facility] Negative Internal Control Negative Negative [facility] Positive Internal Control Positive Positive [facility] OP Noteon 03-01-2024 Ground Surveillance Systems Operator Authentication Interface Message Text Surgical Case Number Data Unavailable Operating Room Data Unavailable Preoperative Diagnosis(es): Caries [k02.9] Surgeon: Dr. Topete Orthotics Prosthetics Technician Surgeon: Melquiades Arias DDS - Paula Aboelkheir,DDS Anesthesia: General- Nasal ETT Estimated Blood Loss: [...] the treatment plan included the following: Composite gnosticism on tooth #7 surface ML. Amalgam restorations [...] 03/02/24 encounter (Hospital Encounter). Dictated by: Paula Conrteras DDS: Dr. Topete was present for the critical portions of the procedure. Paula Contreras DDS 03/01/2024 6:15 PM Normal [facility] Telephone Encounteron 2023 Ground Surveillance Systems Operator Authentication Interface Message Text Anesthesia consent obtained and scanned into Mixwit. Scheduled for surgery 03/02/2024. Normal [facility] Telephone Encounteron 2023 Ground Surveillance Systems Operator Authentication Interface Message Text Anesthesia consent obtained and scanned into Mixwit. Scheduled for surgery 03/02/2024. Normal [facility] PAT Call Historyon Ground Surveillance Systems Operator Authentication Interface Message Text Telephone History Chantel Ascencio, [id number] 02/19/2024 Patient was identified by name and date of via Ivon, caregiver. Needs: Physical, Neck Circumference, BHCG, and ED on DOS. Note: OSH records/labs scanned to [facility]. If the patient becomes ill prior to procedure or surgery, they are to call their provider or surgeon's office directly. 29 year old 136.6 lbs 5' 4 Date of Surgery: 03/02 Surgeon: Yoselyn Type of Surgery: DENTAL RESTORATIONS HISTORY OF PRESENT ILLNESS: telephone history for the upcoming surgery at [facility], [address] enter through the west entrance doors. STOP-BANG Row Name 02/19/24 0401 History of sleep apnea? 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 norethindrone-ethin yl estradiol (Nortrel 1/35, 21,) 1-35 MG-MCG tablet [...] Take by mouth. Fluticasone Propionate (FLONASE NASAL) Bailey into each nostril. Selenium (SELENIMIN ORAL) Take by mouth. Sennosides (SENNA) 15 MG tablet Take 1 Tab by mouth daily as needed for Constipation. topiramate (TOPIRAGEN) 25 MG tablet Take 75 mg by mouth 2 times daily (more content not included)... Normal [facility] Progress Noteson 02-17-2024 Ground Surveillance Systems Operator Authentication Interface Message Text Patient PAT has be rescheduled for 02/19/2024--for OR visit 03/02/2024----- Saturday, February 17, 2024 at 10:10:00 AM ----- ----- Provider: LESLIE Claros Dental-Cruise Counselor -- Clinic: [place] ----- Normal [facility] Progress Noteson 02-05-2024 Ground Surveillance Systems Operator Authentication Interface Message Text Patient was no show for PAT today at [facility] surgery is scheduled 03/02-Contact Concetta @ [facility] --advised if PAT needs to reschedule or patient will be removed from OR----- Monday, February 05, 2024 at 4:24:04 PM ----- ----- Provider: LESLIE Claros Dental-Cruise Counselor -- Clinic: [place] ----- Normal [facility] Progress Noteson 01-08-2024 Ground Surveillance Systems Operator Authentication Interface Message Text Parent/guardian/pat ient was contacted for PAT AND OR Sedation scheduled -- confirmed information with patient, also informed mom importance of going to PAT appointment -- if missed, IV Sedation will be cancelled, and you will be placed back on wait list 03/02/24----- Monday, January 08, 2024 at 2:14:12 PM ----- ----- Provider: LESLIE Claros Dental-Cruise Counselor -- Clinic: [place] ----- Normal [facility] Progress Noteson 12-30-2023 Ground Surveillance Systems Operator Authentication Interface Message Text Attempted to contact patient/ parent / guardian at telephone number listed -- no answer, left voicemail message requesting a return call.----- Saturday, December 30, 2023 at 2:26:35 PM ----- ----- Provider: LESLIE Claros Dental-Cruise Counselor -- Clinic: [place] ----- Normal [facility] Free T4on 01-09-2023 Free T4 [Mass/Vol] 1.12 ng/dL Normal 0.58-1.64 [facility] Comment on above: Performed By: #### 2 [id number], [id number] #### [facility] [address] [id number] Physician Orderon 01-09-2023 Physician Order [id number] Normal [facility] TSHon 01-09-2023 TSH Qn 4.74 m[IU]/L Normal 0.34-5.60 [facility] Comment on above: Performed By: #### 2 [id number], [id number] #### [facility] [address] [id number] FREE T4on 08-29-2022 Free T4 [Mass/Vol] 1.76 ng/dL Critically high 0.76-1.46 [facility] Comment on above: Performed By: #### F T4 #### [facility] [address] [place] [address] Dr. Volodymyr Paez TSHon 08-29-2022 TSH Qn m[IU]/L Critically low 0.358-3.740 [facility] Comment on above: Performed By: #### T SH #### [facility] [address] [place] [address] Dr. Volodymyr Paez CULTURE URINEon 08-24-2022 CULTURE [...] F Tetracycline >=16 R F Normal [facility] Comment on above: Performed By: #### T SH, CMP #### [facility] [address] [address] [address] Volodymyr Paez UA (CLEAN/CATCH) INDUSTRIAL EDUCATION TEACHER/MICRO I F IND.on 08-21-2022 Bilirubin Ql (U) Negative Normal NEGATIVE [facility] Comment on above: Performed By: #### U ACSIND, UMICRO #### [facility] [address] [address] [address] Volodymyr Paez Clarity (U) CLEAR Normal CLEAR [facility] Comment on above: Performed By: #### U ACSIND, UMICRO #### [facility] [address] [place] [address] Dr. Volodymyr Paez Color (U) LT. YELLOW Normal YELLOW [facility] Comment on above: Performed By: #### U ACSIND, UMICRO #### [facility] [address] [place] [address] Dr. Volodymyr Paez Glucose Ql (U) Negative Normal NEGATIVE [facility] Comment on above: Performed By: #### U ACSIND, UMICRO #### [facility] [address] [address] [address] Volodymyr Paez Hemoglobin Ql (U) Negative Normal NEGATIVE [facility] Comment on above: Performed By: #### U ACSIND, UMICRO #### [facility] [address] [address] [address] Volodymyr Paez Ketones Ql (U) Negative Normal NEGATIVE [facility] Comment on above: Performed By: #### U ACSIND, UMICRO #### [facility] [address] [address] [address] Volodymyr Paez LEUKOCYTES SMALL Abnormal NEGATIVE [facility] Comment on above: Performed By: #### U ACSIND, UMICRO #### [facility] [address] [place] [address] Dr. Volodymyr Paez Nitrite Ql (U) Negative Normal NEGATIVE [facility] Comment on above: Performed By: #### U ACSIND, UMICRO #### [facility] [address] [place] [address] Dr. Volodymyr Paez pH (U) 7.0 [pH] Normal 5-9 [facility] Comment on above: Performed By: #### U ACSSHAHEEN UMICRO #### [facility] [address] [place] [address] Dr. Volodymyr Paez SPEC GRAVITY 1.020 Normal 1.005-<=1.025 [facility] Comment on above: Performed By: #### U ACSSHAHEEN UMICRO #### [facility] [address] [place] [address] Dr. Volodymyr Paez UA PROTEIN Negative Normal NEGATIVE/ TRACE [facility] Comment on above: Performed By: #### U ACSSHAHEEN UMICRO #### [facility] [address] [place] [address] Dr. Volodymyr Paez UR MICRO IND INDICATED Normal [facility] Comment on above: Performed By: #### U ACSSHAHEEN UMICRO #### [facility] [address] [place] [address] Dr. Volodymyr Paez Urobilinogen Qn (U) 0.2 {Leta'U}/dL Normal 0.2 - 1. 0 [facility] Comment on above: Performed By: #### U ACSSHAHEEN UMICRO #### [facility] [address] [place] [address] Dr. Volodymyr Paez URINE MICROSCOPIC ONLYon BACTERIA SMALL Abnormal NONE SEEN [facility] Comment on above: Performed By: #### U ACSSHAHEEN UMICRO #### [facility] [address] [place] [address] Dr. Volodymyr Paez Bacteria identified Cx Nom (U) INDICATED Normal [facility] Comment on above: Performed By: #### U ACSSHAHEEN UMICRO #### [facility] [address] [place] [address] Dr. Volodymyr Paez CAST NONE SEEN Normal NONE SEEN [facility] Comment on above: Performed By: #### U ACSSHAHEEN UMICRO #### [facility] [address] [place] [address] Dr. Volodymyr Paez Crystals LM Nom (Urine sed) NONE SEEN Normal NONE SEEN [facility] Comment on above: Performed By: #### U ACSIND, UMICRO #### [facility] [address] [place] [address] Dr. Volodymyr Paez Epithelial cells LM Ql (Urine sed) MODERATE Abnormal NONE SEEN /RARE [facility] Comment on above: Performed By: #### U ACSIND, UMICRO #### [facility] [address] [place] [address] Dr. Volodymyr Paez MUCOUS TRACE Abnormal NONE SEEN [facility] Comment on above: Performed By: #### U ACSSHAHEEN, UMICRO #### [facility] [address] [place] [address] Dr. Volodymyr Paez RBC 2-5 Abnormal 0-2 [facility] Comment on above: Performed By: #### U ACSSHAHEEN, UMICRO #### [facility] [address] [place] [address] Dr. Volodymyr Paez WBC 10-20 Abnormal NONE SEEN [facility] Comment on above: Performed By: #### U ACSSHAHEEN, UMICRO #### [facility] [address] [place] [address] Dr. Volodymyr Paez LAMOTRIGINEon 08-13-2022 Lamotrigine, Serum 11.2 ug/mL Normal 2.0-20.0 [facility] Comment on above: Result Comment: Dete ction Limit = 1.0 Performed By: #### T SH, CMP #### [facility] [address] [place] [address] Dr. Volodymyr Paez CBC AUTO DIFFon 08-09-2022 BASO # 0.0 103/ul Normal 0.0-0.1 [facility] Comment on above: Performed By: #### C BC #### [facility] [address] [place] [address] Dr. Volodymyr Paez Basophils/100 WBC (Bld) 0.4 % Normal 0.2-2.0 [facility] Comment on above: Performed By: #### C BC #### [facility] [address] [place] [address] Dr. Volodymyr Paez EO # 0.4 103/ul Normal 0.0-0.7 [facility] Comment on above: Performed By: #### C BC #### [facility] [address] [place] [address] Dr. Volodymyr Paez Eosinophils/100 WBC (Bld) 4.3 % Normal 0.9-7.0 [facility] Comment on above: Performed By: #### C BC #### [facility] [address] [place] [address] Dr. Volodymyr Paez Erythrocyte distribution width (RBC) [Ratio] 13.2 % Normal 11.0-15.0 [facility] Comment on above: Performed By: #### C BC #### [facility] [address] [place] [address] Dr. Volodymyr Paez Hematocrit (Bld) [Volume fraction] 40.2 % Normal 36.0-48.0 [facility] Comment on above: Performed By: #### C BC #### [facility] [address] [place] [address] Dr. Volodymyr Paez Hemoglobin (Bld) [Mass/Vol] 13.8 g/dL Normal 12.0-16.0 [facility] Comment on above: Performed By: #### C BC #### [facility] [address] [place] [address] Dr. Volodymyr Paez IG # 0.02 10e3/ul Normal 0.00-0.03 [facility] Comment on above: Performed By: #### C BC #### [facility] [address] [place] [address] Dr. Volodymyr Paez IG % 0.2 % Normal 0.0-0.5 [facility] Comment on above: Performed By: #### C BC #### [facility] [address] [place] [address] Dr. Volodymyr Paez LYMPH # 4.3 103/ul Critically high 1.2-3.8 [facility] Comment on above: Performed By: #### C BC #### [facility] [address] [place] [address] Dr. Volodymyr Paez Lymphocytes/100 WBC (Bld) 51.8 % Normal 20.5-60.0 [facility] Comment on above: Performed By: #### C BC #### [facility] [address] [place] [address] Dr. Volodymyr Paez MANUAL DIFF REQ NO Normal [facility] Comment on above: Performed By: #### C BC #### [facility] [address] [place] [address] Dr. Volodymyr Paez MCH (RBC) [Entitic mass] 31.0 pg Normal 26.7-34.0 [facility] Comment on above: Performed By: #### C BC #### [facility] [address] [place] [address] Dr. Volodymyr Paez MCHC (RBC) [Mass/Vol] 34.3 g/dL Normal 29.9-35.2 [facility] Comment on above: Performed By: #### C BC #### [facility] [address] [place] [address] Dr. Volodymyr Paez MCV (RBC) [Entitic vol] 90.3 fL Normal 81.0-99.0 [facility] Comment on above: Performed By: #### C BC #### [facility] [address] [place] [address] Dr. Volodymyr Paez MONO # 0.9 103/ul Critically high 0.3-0.8 [facility] Comment on above: Performed By: #### C BC #### [facility] [address] [place] [address] Dr. Volodymyr Paez Monocytes/100 WBC (Bld) 10.4 % Normal 1.7-12.0 [facility] Comment on above: Performed By: #### C BC #### [facility] [address] [place] [address] Dr. Volodymyr Paez NEUT # 2.7 103/ul Normal 1.4-6.5 [facility] Comment on above: Performed By: #### C BC #### [facility] [address] [place] [address] Dr. Volodymyr Paez Neutrophils/100 WBC (Bld) 32.9 % Critically low 43.0-75.0 [facility] Comment on above: Performed By: #### C BC #### [facility] [address] [place] [address] Dr. Volodymyr Paez Platelet mean volume (Bld) [Entitic vol] 10.3 fL Normal 9.5-13.5 [facility] Comment on above: Performed By: #### C BC #### [facility] [address] [place] [address] Dr. Volodymyr Paez PLT 231 103/ul Normal 150-450 [facility] Comment on above: Performed By: #### C BC #### [facility] [address] [place] [address] Dr. Volodymyr Paez RBC 4.45 106/ul Normal 4.20-5.40 [facility] Comment on above: Performed By: #### C BC #### [facility] [address] [place] [address] Dr. Volodymyr Paez WBC 8.2 103/ul Normal 4.0-11.0 [facility] Comment on above: Performed By: #### C BC #### [facility] [address] [place] [address] Dr. Volodymyr Paez DEPAKENE/ VALPROIC ACIDon DEPAKENE 80.3 ug/ml Normal 50.0-100.0 [facility] Comment on above: Performed By: #### V ALP #### [facility] [address] [place] [address] Dr. Volodymyr Paez US THYROIDon 07-10-2022 US [...] 6 mm. No follow-up required TI-RADS: The [employer] TI-RADS committee's white paper recommendations for thyroid lesions classified as TR4 (moderately suspicious) are listed below: > 1.0 cm. Follow-up ultrasound in 1, 2, 3, and 5 years. > 1.5 cm. FNA. J. Am Chidi Radiol 2017;14:587-595. Electronically authenticated by: MATILDE WATERMAN Date: 2022-07-10 13:01 Normal [facility] LAMOTRIGINEon 06-29-2022 Lamotrigine, Serum 14.2 ug/mL Normal 2.0-20.0 [facility] Comment on above: Result Comment: Dete ction Limit = 1.0 Performed By: #### T AKIKO, CMP #### [facility] [address] [place] [address] Dr. Volodymyr Paez CBC AUTO DIFFon 06-27-2022 BASO # 0.1 103/ul Normal 0.0-0.1 [facility] Comment on above: Performed By: #### T AKIKO, CMP #### [facility] [address] [place] [address] Dr. Volodymyr Paez Basophils/100 WBC (Bld) 0.7 % Normal 0.2-2.0 [facility] Comment on above: Performed By: #### T AIKKO, CMP #### [facility] [address] [place] [address] Dr. Volodymyr Paez EO # 0.4 103/ul Normal 0.0-0.7 [facility] Comment on above: Performed By: #### T SH, CMP #### [facility] [address] [place] [address] Dr. Volodymyr Paez Eosinophils/100 WBC (Bld) 5.1 % Normal 0.9-7.0 [facility] Comment on above: Performed By: #### T KAIKO, CMP #### [facility] [address] [place] [address] Dr. Volodymyr Paez Erythrocyte distribution width (RBC) [Ratio] 13.1 % Normal 11.0-15.0 [facility] Comment on above: Performed By: #### T AKIKO, CMP #### [facility] [address] [place] [address] Dr. Volodymyr Paez Hematocrit (Bld) [Volume fraction] 39.7 % Normal 36.0-48.0 [facility] Comment on above: Performed By: #### T AKIKO, CMP #### [facility] [address] [place] [address] Dr. Volodymyr Paez Hemoglobin (Bld) [Mass/Vol] 13.3 g/dL Normal 12.0-16.0 [facility] Comment on above: Performed By: #### T AKIKO, CMP #### [facility] [address] [place] [address] Dr. Volodymyr Paez IG # 0.02 10e3/ul Normal 0.00-0.03 [facility] Comment on above: Performed By: #### T AKIKO, CMP #### [facility] [address] [place] [address] Dr. Volodymyr Paez IG % 0.3 % Normal 0.0-0.5 [facility] Comment on above: Performed By: #### T AKIKO, CMP #### [facility] [address] [place] [address] Dr. Volodymyr Paez LYMPH # 3.6 103/ul Normal 1.2-3.8 [facility] Comment on above: Performed By: #### T AKIKO, CMP #### [facility] [address] [place] [address] Dr. Volodymyr Paez Lymphocytes/100 WBC (Bld) 47.4 % Normal 20.5-60.0 [facility] Comment on above: Performed By: #### T AKIKO, CMP #### [facility] [address] [place] [address] Dr. Volodymyr Paez MANUAL DIFF REQ NO Normal [facility] Comment on above: Performed By: #### T AKIKO, CMP #### [facility] [address] [place] [address] Dr. Volodymyr Paez MCH (RBC) [Entitic mass] 30.3 pg Normal 26.7-34.0 [facility] Comment on above: Performed By: #### T SH, CMP #### [facility] [address] [place] [address] Dr. Volodymyr Paez MCHC (RBC) [Mass/Vol] 33.5 g/dL Normal 29.9-35.2 [facility] Comment on above: Performed By: #### T SH, CMP #### [facility] [address] [place] [address] Dr. Volodymyr Paez MCV (RBC) [Entitic vol] 90.4 fL Normal 81.0-99.0 [facility] Comment on above: Performed By: #### T AKIKO, CMP #### [facility] [address] [place] [address] Dr. Volodymyr Paez MONO # 0.9 103/ul Critically high 0.3-0.8 [facility] Comment on above: Performed By: #### T AKIKO, CMP #### [facility] [address] [place] [address] Dr. Volodymyr Paez Monocytes/100 WBC (Bld) 11.3 % Normal 1.7-12.0 [facility] Comment on above: Performed By: #### T AKIKO, CMP #### [facility] [address] [place] [address] Dr. Volodymyr Paez NEUT # 2.7 103/ul Normal 1.4-6.5 [facility] Comment on above: Performed By: #### T AKIKO, CMP #### [facility] [address] [place] [address] Dr. Volodymyr Paez Neutrophils/100 WBC (Bld) 35.2 % Critically low 43.0-75.0 [facility] Comment on above: Performed By: #### T AKIKO, CMP #### [facility] [address] [place] [address] Dr. Volodymyr Paez Platelet mean volume (Bld) [Entitic vol] 11.4 fL Normal 9.5-13.5 [facility] Comment on above: Performed By: #### T AKIKO, CMP #### [facility] [address] [place] [address] Dr. Volodymyr Peaz PLT 96 103/ul Critically low 150-450 [facility] Comment on above: Result Comment: slid e made; no plt clumps seen Performed By: #### T SH, CMP #### [facility] [address] [place] [address] Dr. Volodymyr Paez RBC 4.39 106/ul Normal 4.20-5.40 [facility] Comment on above: Performed By: #### T SH, CMP #### [facility] [address] [place] [address] Dr. Volodymyr Paez WBC 7.6 103/ul Normal 4.0-11.0 [facility] Comment on above: Performed By: #### T SH, CMP #### [facility] [address] [place] [address] Dr. Volodymyr Paez FREE T4on 06-27-2022 Free T4 [Mass/Vol] 1.45 ng/dL Normal 0.76-1.46 [facility] Comment on above: Performed By: #### F T4 #### [facility] [address] [place] [address] Dr. Volodymyr Paez PROF 14(COMP METB)on 023 Albumin [Mass/Vol] 3.2 g/dL Critically low 3.4-5.0 [facility] Comment on above: Performed By: #### T SH, CMP #### [facility] [address] [place] [address] Dr. Volodymyr Paez Albumin/Globulin [Mass ratio] 0.7 {ratio} Normal [facility] Comment on above: Performed By: #### T SH, CMP #### [facility] [address] [place] [address] Dr. Volodymyr Paez ALP [Catalytic activity/Vol] 65 U/L Normal 46-116 [facility] Comment on above: Performed By: #### T SH, CMP #### [facility] [address] [place] [address] Dr. Volodymyr Paez ALT [Catalytic activity/Vol] 20 U/L Normal 14-59 [facility] Comment on above: Performed By: #### T SH, CMP #### [facility] [address] [address] [address] Volodymyr Paez Anion gap [Moles/Vol] 11.3 mmol/L Normal [facility] Comment on above: Performed By: #### T SH, CMP #### [facility] [address] [address] [address] Volodymyr Paez AST [Catalytic activity/Vol] 25 U/L Normal 15-37 [facility] Comment on above: Performed By: #### T SH, CMP #### [facility] [address] [address] [address] Volodymyr Paez Bilirubin [Mass/Vol] 0.3 mg/dL Normal 0.2-1.0 [facility] Comment on above: Performed By: #### T SH, CMP #### [facility] [address] [address] [address] Volodymyr Paez Calcium [Mass/Vol] 9.5 mg/dL Normal 8.5-10.1 [facility] Comment on above: Performed By: #### T SH, CMP #### [facility] [address] [address] [address] Volodymyr Paez Chloride [Moles/Vol] 100 mmol/L Normal 98-107 [facility] Comment on above: Performed By: #### T SH, CMP #### [facility] [address] [address] [address] Volodymyr Paez CO2 [Moles/Vol] 30.1 mmol/L Normal 21.0-32.0 [facility] Comment on above: Performed By: #### T SH, CMP #### [facility] [address] [address] [address] Volodymyr Paez Creatinine [Mass/Vol] 0.92 mg/dL Normal 0.55-1.02 [facility] Comment on above: Performed By: #### T SH, CMP #### [facility] [address] [address] [address] Volodymyr Paez EGFR-AF TURKMEN >60 Normal >=60 [facility] Comment on above: Performed By: #### T SH, CMP #### [facility] [address] [address] [address] Volodymyr Paez EGFR-NON AF TURKMEN >60 Normal >=60 [facility] Comment on above: Performed By: #### T SH, CMP #### [facility] [address] [address] [address] Volodymyr Paez Globulin (S) [Mass/Vol] 4.4 g/dL Normal [facility] Comment on above: Performed By: #### T SH, CMP #### [facility] [address] [address] [address] Volodymyr Paez Glucose [Mass/Vol] 76 mg/dL Normal 74-106 [facility] Comment on above: Performed By: #### T SH, CMP #### [facility] [address] [address] [address] Volodymyr Paez Potassium [Moles/Vol] 4.4 mmol/L Normal 3.5-5.1 [facility] Comment on above: Performed By: #### T SH, CMP #### [facility] [address] [address] [address] Volodymyr Paez Protein [Mass/Vol] 7.6 g/dL Normal 6.4-8.2 [facility] Comment on above: Performed By: #### T SH, CMP #### [facility] [address] [address] [address] Volodymyr Paez Sodium [Moles/Vol] 137 mmol/L Normal 136-145 [facility] Comment on above: Performed By: #### T SH, CMP #### [facility] [address] [address] [address] Volodymyr Paez Urea nitrogen [Mass/Vol] 7.0 mg/dL Normal 7.0-18.0 [facility] Comment on above: Performed By: #### T SH, CMP #### [facility] [address] [address] [address] Volodymyr Paez Urea nitrogen/Creatinine [Mass ratio] 7.6 mg/mg Normal [facility] Comment on above: Performed By: #### T SH, CMP #### [facility] [address] [address] [address] Volodymyr Paez TSHon 06-27-2022 TSH 0.099 uIU/mL Critically low 0.358-3.740 [facility] Comment on above: Performed By: #### T SH, CMP #### [facility] [address] [address] [address] Volodymyr Paez DEPAKENE/ VALPROIC ACIDon DEPAKENE 72.4 ug/ml Normal 50.0-100.0 [facility] Comment on above: Performed By: #### T AKIKO, CMP #### [facility] [address] [address] [address] Volodymyr Paez US THYROIDon 10-25-2021 US [...] screening is still recommended. TR 4: The [employer] TI-RADS committee's white paper recommendations for thyroid lesions classified as TR4 (moderately suspicious) are listed below: > 1.0 cm. Follow-up ultrasound in 1, 2, 3, and 5 years. > 1.5 cm. FNA. J. Am Chidi Radiol 2017;14:587-595. Electronically authenticated by: KRIS MENDOZA Date: 2021-10-25 09:31 Normal [facility] FREE T4on 10-24-2021 Free T4 [Mass/Vol] 1.08 ng/dL Normal 0.76-1.46 [facility] Comment on above: Performed By: #### T SH, CMP #### [facility] [address] [place], [place] [address] Dr. Volodymyr Paez TSHon 10-24-2021 TSH 12.719 uIU/mL Critically high 0.358-3.740 [facility] Comment on above: Performed By: #### T SH #### [facility] [address] [place], [place] [address] Dr. Volodymyr Paez Vital Signs Date Time Vital Sign Value Performing Clinician Andreei lity 11-24-2024 10:00-0400 Body height 165.1 cm Lai Hackettce DPM FACFAS Work Phone: [facility] 11-24-2024 10:00-0400 Body mass index (BMI) [Ratio] 21.3 kg/m2 Lai Dolce DPM FACFAS Work Phone: [facility] 11-24-2024 10:00-0400 Body weight 58.06 kg Lai Dolce DPM FACFAS Work Phone: [facility] 11-24-2024 10:00-0400 Diastolic blood pressure 63 mm[Hg] Lai Dolce DPM FACFAS Work Phone: [facility] 11-24-2024 10:00-0400 Heart rate 70 /min Lai Dolce DPM FACFAS Work Phone: [facility] 11-24-2024 10:00-0400 Systolic blood pressure 115 mm[Hg] Lai Dolce DPM FACFAS Work Phone: [facility] 08-25-2024 11:03-0400 Body height 165.1 cm Lai Dolce DPM FACFAS Work Phone: [facility] 08-25-2024 11:03-0400 Body mass index (BMI) [Ratio] 21.3 kg/m2 Lai Dolce DPM FACFAS Work Phone: [facility] 08-25-2024 11:03-0400 Body weight 58.06 kg Lai Dolce DPM FACFAS Work Phone: [facility] 08-25-2024 11:03-0400 Diastolic blood pressure 64 mm[Hg] Lai Alvarado DPM FACFAS Work Phone: [facility] 08-25-2024 11:03-0400 Heart rate 71 /min Lai Alvarado DPM FACFAS Work Phone: [facility] 08-25-2024 11:03-0400 Systolic blood pressure 110 mm[Hg] Lai Alvarado DPM FACFAS Work Phone: [facility] 08-11-2024 10:16-0400 Body height 165.1 cm Eduarda Lowe PA Work Phone: [facility] 08-11-2024 10:16-0400 Body mass index (BMI) [Ratio] 21.47 kg/m2 Eduarda Lowe PA Work Phone: [facility] 08-11-2024 10:16-0400 Body weight 58.51 kg Eduarda Lowe PA Work Phone: [facility] 08-11-2024 10:16-0400 Diastolic blood pressure 62 mm[Hg] Eduarda Lowe PA Work Phone: [facility] 08-11-2024 10:16-0400 Systolic blood pressure 106 mm[Hg] Eduarda Lowe PA Work Phone: [facility] 06-10-2024 10:24-0500 Body height 165.1 cm Lai Alvarado DPM FACFAS Work Phone: [facility] 06-10-2024 10:24-0500 Body mass index (BMI) [Ratio] 21.47 kg/m2 Lai Alvarado DPM FACFAS Work Phone: [facility] 06-10-2024 10:24-0500 Body weight 58.51 kg Lai Alvarado DPM FACFAS Work Phone: [facility] 06-10-2024 10:24-0500 Diastolic blood pressure 72 mm[Hg] Lai Alvarado DPM FACFAS Work Phone: [facility] 06-10-2024 10:24-0500 Heart rate 74 /min Lai Alvarado DPM FACFAS Work Phone: [facility] 06-10-2024 10:24-0500 Systolic blood pressure 120 mm[Hg] Lai Alvarado DPM FACFAS Work Phone: [facility] 06-03-2024 09:45-0500 Body height 165.1 cm Eduarda Lowe PA Work Phone: [facility] 06-03-2024 09:45-0500 Body mass index (BMI) [Ratio] 21.47 kg/m2 Eduarda Lowe PA Work Phone: [facility] 06-03-2024 09:45-0500 Body weight 58.51 kg Eduarda Lowe PA Work Phone: [facility] 03-10-2024 11:19-0500 Body height 165.1 cm Lai Alvarado DPM FACFAS Work Phone: [facility] 03-10-2024 11:19-0500 Body mass index (BMI) [Ratio] 21.3 kg/m2 Lai Alvarado DPM FACFAS Work Phone: [facility] 03-10-2024 11:19-0500 Body weight 58.06 kg Lai Alvarado DPM FACFAS Work Phone: [facility] 03-10-2024 11:19-0500 Diastolic blood pressure 72 mm[Hg] Lai Alvarado DPM FACFAS Work Phone: [facility] 03-10-2024 11:19-0500 Heart rate 88 /min Lai Alvarado DPM FACFAS Work Phone: [facility] 03-10-2024 11:19-0500 Systolic blood pressure 115 mm[Hg] Lai Alvarado DPM FACFAS Work Phone: [facility] 03-02-2024 12:30-0500 Body temperature 98.1 [degF] Elmer Topete DDS Work Phone: [facility] 03-02-2024 12:30-0500 Diastolic blood pressure 73 mm[Hg] Elmer Toptee DDS Work Phone: [facility] 03-02-2024 12:30-0500 Heart rate 113 /min Elmer Samaniegoi DDS Work Phone: [facility] 03-02-2024 12:30-0500 Respiratory rate 19 /min Elmer Topete DDS Work Phone: [facility] 03-02-2024 12:30-0500 SaO2% (BldA) [Mass fraction] 98 % Elmer Topete DDS Work Phone: [facility] 03-02-2024 12:30-0500 Systolic blood pressure 113 mm[Hg] Elmer Topete DDS Work Phone: [facility] 03-02-2024 09:11-0500 Body height 162.6 cm Elmeredgard [facility]ete DDS [facility] 03-02-2024 09:11-0500 Body mass index (BMI) [Ratio] 23.45 kg/m2 Elmeredgard Topete DDS Work Phone: [facility] 03-02-2024 09:11-0500 Body weight 61.96 kg Elmer Topete DDS Work Phone: [facility] 02-19-2024 11:00-0400 Body height 162.6 cm [email or web address] 02-19-2024 11:00-0400 Body mass index (BMI) [Ratio] 23.45 kg/m2 Kelly Cabello RN [facility] 02-19-2024 11:00-0400 Body weight 61.96 kg Kelly Cabello RN [facility] 01-21-2024 11:05-0400 Diastolic blood pressure 72 mm[Hg] Radha Martinez PA Work Phone: [facility] 01-21-2024 11:05-0400 Heart rate 92 /min Radha Martinez PA Work Phone: [facility] 01-21-2024 11:05-0400 Respiratory rate 16 /min Radha Hill PA Work Phone: [facility] 01-21-2024 11:05-0400 SaO2% (BldA) [Mass fraction] 96 % Radha AMADOR Work Phone: [facility] 01-21-2024 11:05-0400 Systolic blood pressure 118 mm[Hg] Radha AMADOR Work Phone: [facility] Healthcare Encounters Encounter Date Encounter Type Care Provider Facility Start: 11-24-2024 End: 11-24-2024 Bamboo flowsheet Lai D Dolce DPM FACFAS Work Phone: [facility] Start: 11-24-2024 End: 11-24-2024 Bamboo flowsheet Lai D Dolce DPM FACFAS Work Phone: [facility] Start: 11-24-2024 End: 11-24-2024 ambulatory LAI Serge ALVARADO Not Available Start: 11-24-2024 End: 11-24-2024 Patient encounter procedure Lai D Dolce DPM FACFAS Work Phone: [facility] Comment on above: Onychomycosis (Prima ry Dx); Pain in right toe(s); Pain in left toe(s) Start: 10-01-2024 End: 10-01-2024 ambulatory Eduarda [facility] Facility:[facility] Start: 08-25-2024 End: 08-25-2024 Bamboo flowsheet Lai [...] End: 03-02-2024 Patient encounter procedure Elmer Topete S Work Phone: [facility] Dentistry Start: 03-02-2024 End: 03-02-2024 Subsequent hospital visit by physician Elmer Topete [facility] Work Phone: [facility] Start: 03-02-2024 End: 03-02-2024 ambulatory ELMER TOPETE Facility:[facility] Start: 02-26-2024 End: 02-26-2024 Telephone encounter Kelly Cabello RN [facility] Pre-Admission Testing Comment on above: Pre-surgical Evaluat ion (DD adult dental restorations 03/02 under [place] at [place]. PAT completed - anesthesia consent. ZORHA RN spoke to Mary (nurse), confirmed NPO, [place] address, and 0900 arrival time/) Start: 02-24-2024 End: 02-24-2024 Telephone encounter Ashleigh Kaplan RN [facility] Pre-Admission Testing Comment on above: PAT (Anesthesia cons ent obtained) Start: 02-21-2024 End: 02-21-2024 Telephone encounter Ashleigh Kaplan RN [facility] Pre-Admission Testing Comment on above: PAT (Anesthesia cons ent obtained) Start: 02-19-2024 End: 02-19-2024 Nursing evaluation of patient and report Kelly Cabello RN [facility] Pre-Admission Testing Comment on above: Pre-op evaluation (P rimary Dx) Start: 02-19-2024 End: 02-19-2024 Preprocedural examination done Kelly Cabello RN [facility] Start: 02-19-2024 ambulatory UNKNOWN PROVIDER Facili ty:[facility] Start: 02-19-2024 Encounter for other preprocedural examination UNKNOWN PROVIDER [facility] Start: 02-05-2024 End: 02-05-2024 Patient encounter procedure Refugio Duronromanherlinda [employer] LEVELER-[employer]OTOCOMPOSITION KEYBOARD OPERATOR Work Phone: [facility] Pre-Admission Testing Comment on above: NO SHOW (Primary Dx) Start: 01-21-2024 End: 01-21-2024 Bamboo flowsheet Radha AMADOR Work Phone: [facility] Start: 01-21-2024 End: 01-21-2024 Bamboo flowsheet Radha AMADOR Work Phone: [facility] Start: 01-21-2024 End: 01-21-2024 ambulatory RADHA MARTINEZ Not Available Start: 01-21-2024 End: 01-21-2024 Office outpatient visit 15 minutes Radha AMADOR Work Phone: [facility] Comment on above: Seizure disorder (CM S/HCC) (Primary Dx); Mental deficiency (CMS/HCC); Autism (CMS/HCC); Pseudobulbar affect; Gait instability Start: 12-27-2023 End: 12-27-2023 Admission to same day surgery center Mike Weber DDS Work Phone: [facility] Start: 01-09-2023 End: 01-10-2023 ambulatory NATHAN TILLEY Facility[facility] Start: 08-29-2022 End: 08-30-[address] NATHAN [...] encounter procedure Martha Coreas DMD Work Phone: [facility] Start: 10-24-2021 End: 10-25-[address] DOCTOR JAVED Facility:[facility] Start: 11-07-2016 End: 11-08-2016 Ambulatory DEFAULT PHYSICIAN Facility:[facility] Procedures Date Procedure Procedure Detail Performing Clinician Start: 03-02-2024 End: 03-02-2024 Urine test visual color cmprsn neos Milton Luna MD Work Phone: Plan of Treatment Date Care Activity Detail Author Start: 2043 Shingles (RZV) Vacci ne (1 of 2) Shingles (RZV) Vaccine (1 of 2) [facility] Start: 02-23-2025 End: 02-23-2025 Patient encounter procedure 02/23/2025 9:30 AM EST Procedure Visit [facility] [address] [place] [id number] Lai Alvarado, DPM FACFAS [address] [place] [address] [facility] [facility] Start: 12-21-2024 Influenza vaccination [facility] Start: 11-03-2024 End: 11-03-2024 Patient encounter procedure 11/03/2024 11:00 AM EDT Procedure Visit [facility] [address] [place] [id number] Lai Alvarado, DPM FACFAS [address] [place] [address] [facility] Start: 08-25-2024 End: 08-25-2024 Patient encounter procedure CK SHAINA CHERYL Comment on above: Arrived Start: 08-19-2024 End: 08-19-2024 Patient encounter procedure 08/19/2024 11:00 AM EDT Procedure Visit [facility] [address] [place] [address] Lai Alvarado, DPM FACFAS [address] [facility] [place] [address] [facility] Start: 08-11-2024 End: 08-11-2024 Patient encounter procedure [facility] BURROUGHS Comment on above: Arrived Start: 06-10-2024 End: 06-10-2024 Patient encounter procedure [facility] Comment on above: Arrived Start: 05-12-2024 End: 05-12-2024 Patient encounter procedure 05/12/2024 11:20 AM EST Office Visit [facility] [address] [place] [address] Radha Martinez PA [address] [place] [address] [facility] [address] [facility] Start: 03-02-2024 End: 03-02-2024 Admission to same day surgery center 03/02/2024 9:14 AM EST - 03/02/2024 10:58 AM EST Surgery [facility] [address] [place] [address] Elmer Topete, DDS [address] [place] [address] DENTAL RESTORATIONS [facility] Comment on above: DENTAL RESTORATIONS Start: 03-02-2024 End: 03-02-2024 DENTAL RESTORATIONS [facility] Start: 03-02-2024 End: 03-02-2024 Admission to same day surgery center 03/02/2024 7:40 AM EST - 03/02/2024 9:24 AM EST Surgery [facility] [address] [place] [address] Elmer Topete, DDS [address] [place] [address] DENTAL RESTORATIONS [facility] Comment on above: DENTAL RESTORATIONS Start: 03-02-2024 End: 03-02-2024 DENTAL RESTORATIONS DENTAL RESTORATIONS Routine scheduled Caries 03/02/2024 7:40 AM EST [facility] Start: 03-02-2024 Subsequent hospital visit by physician [facility] Start: 03-02-2024 End: 03-02-2024 Patient encounter procedure [facility] Dentistry Start: 02-05-2024 End: 02-05-2024 Patient encounter procedure 02/05/2024 9:15 AM EDT Office Visit [facility] [address] [place] [address] Refugio Ferrell, PRINTED CIRCUIT BOARDS SOLDER LEVELER-PHOTOCOMPOSITION KEYBOARD OPERATOR [address] [facility] [address] [facility] Start: 01-21-2024 Influenza vaccination Influenza Vacc ine (#1) [facility] Start: 01-21-2024 End: 01-20-2025 Lamotrigine level Lamotrigine level Lab Routine Seizure disorder (CMS/HCC) Expected: 01/21/2024 (Approximate), Expires: 01/20/2025 [facility] Work Phone: Comment on above: Expected: 01/21/2024 (Approximate), Expires: 01/20/2025 Start: 01-21-2024 End: 01-20-2025 Valproic acid level, total Valproic acid level, total Lab Routine Seizure disorder (CMS/HCC) Expected: 01/21/2024 (Approximate), Expires: 01/20/2025 [facility] Comment on above: Expected: 01/21/2024 (Approximate), Expires: 01/20/2025 Start: 12-22-2023 COVID-19 Vaccine ( season) COVID-19 Vaccine ( season) [facility] Start: 12-22-2023 COVID-19 Vaccine ( season) COVID-19 Vaccine ( season) [facility] Start: 12-22-2023 Influenza vaccination Influenza Vacc ine (#1) [facility] Start: 2023 Screening for malign ant neoplasm of cervix [facility] Start: 01-20-2022 Influenza vaccination Influenza [...] Start: 12-21-2013 [facility] wellness [id number] Start: 01-02-2012 Hepatitis A [...] [facility] Start: 01-02-2008 HIV screening [facility] Start: 1995 Medicare Annual Wellness (AWV) Medicare Annual Wellness (AWV) [facility] DENTAL RESTORATIONS DENTAL MEENA RATIONS Routine scheduled [facility] Payers Date Payer Category Payer Self-pay 2024 Medicare [id number] 2014 Dental --Stand Alone DENTAL-MEDI CAID [id number] 2014 Unknown 2013 Medicaid [id number] 2012 Medicare [id number] [id number]. [id number] 2012 Medicare FFS MEDICARE [id number] 1993 Unknown [id number] 32 1993 Unknown [id number] 2.840.1.743544.3.579.2.7 32 1993 Unknown [id number] 2840.1.150967.3.579.2.7 32 1993 Unknown [id number] 2.16840.1.411388.3.579.2.1 259 1993 Unknown [id number] 2.16840.1.310290.3.579.2.1 259 1993 Unknown [id number] 2.16840.1.482048.3.579.2.1 259 1993 Unknown [id number] 2.16840.1.994930.3.579.2.1 259 1993 Unknown [id number] 2.16.840.1.432213.3.579.2.1 259 1993 Unknown [id number] 2.16.840.1.773682.3.579.2.1 259 1993 Unknown [id number] 2.16.840.1.030404.3.579.2.1 259 1959 Medicaid [id number] 1959 Medicare [id number] 1954 Unknown [id number] 2.16.840.1.897130.3.579.2.5 93 1954 Unknown [id number] 2.16.840.1.038947.3.579.2.5 93 1954 Unknown [id number] 2.16.840.1.815366.3.579.2.5 93 1954 Unknown [id number] 2.16.840.1.709870.3.579.2.5 93 1954 Unknown [id number] 2.16.840.1.977673.3.579.2.5 93 1954 Unknown [id number] 2.16.840.1.530518.3.579.2.5 93 1954 Unknown [id number] 2.16.840.1.051318.3.579.2.5 93 1954 Unknown [id number] 2.16.840.1.841578.3.579.2.5 93 Unknown [id number] 2.16.840.1.913110.3.579.2.7 27 Unknown [id number] 2.16.840.1.396927.3.579.2.5 31 Social History Date Type Detail Facility Tobacco smoking stat [facility] Tobacco smoking consumption unknown [facility] Start: 1995 Sex Assigned At Not on file [facility] Start: 10-01-2023 End: 11-24-2024 Gender identity Not on file [facility] Start: 08-06-2023 End: 02-19-2024 Tobacco smoking status NHIS Never smoked tobacco [facility] Start: 08-06-2023 End: 02-19-2024 Tobacco use and exposure Smokeless tobacco non-user [facility] Start: 10-01-2023 End: 11-24-2024 Alcoholic beverage intake Lifetime non-drinker (finding) [facility] Start: 10-01-2023 End: 11-24-2024 History of Social function [facility] Start: 07-06-2014 Sex Female (finding) [facility] Clinical Notes 03-13-2022 to 11-24-2024 Lai Alvarado DPM FACFAS - 11/24/2024 9:30 AM EDTMkelvin Alvarado DPM FACFAS - 08/25/2024 11:00 AM PERRY Lentz - 08/11/2024 10:40 AM EDTMarc Serge Alvarado DPM FACFAS - 06/10/2024 10:30 AM EST Note Date & Type Note Facility 11-24-2024 History of Present illness Narrative Images from [...] subungual debris. They were painful to palpation 27120 on the right 90282 on the left. VASC: DP /PT were nonpalpable bilateral. Capillary refill time < 3 seconds Digits 1-5 bilateral NEURO: [place] Cecy 5.07 monofilament was intact B/L. Vibratory [...] 10. 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 They were painful to palpation 65673 on the right 33114 on the left. VASC: DP /PT were nonpalpable bilateral. Capillary refill time < 3 seconds Digits 1-5 bilateral NEURO: [place] Cecy 5.07 monofilament was intact B/L. Vibratory [...] 10. MAURA Salas documented in this encounter [facility] 08-11-2024 History of Present illness Narrative Romelia [...] Review Audit Reviewed by Freida Amezquita MA (Bottle House Pumper) on 08/11/24 at 1017 Medication Order Taking? Sig Documenting Provider Last Dose Status ammonium lactate (Amlactin) 12 % cream [id number] Apply 2 application topically Daily Patient not taking: Reported on 06/03/2024 Historical ProviderMD Active busPIRone (Buspar) 30 MG tablet [id number] Take 30 mg by mouth in the morning and 30 mg in the evening and 30 mg before bedtime. Historical ProviderMD Active cloNIDine (Catapres) 0.2 MG tablet [id number] Take 0.2 mg by mouth in the morning and 0.2 mg at noon and 0.2 mg in the evening and 0.2 mg before bedtime. Real Schneider MD Active divalproex (Depakote) 125 MG EC tablet [id number] Take 500 mg by mouth in the morning and 500 mg in the evening and 500 mg before bedtime. Real Schneider MD Active divalproex (Depakote) 125 MG EC tablet [id number] Take 1,000 mg by mouth at bedtime Do not crush, chew, or split. Historical MD Jennie Active famotidine (Pepcid) 40 MG tablet [id number] Take 40 mg by mouth Daily Historical MD Jennie Active guanFACINE (Tenex) 2 MG tablet [id number] Take 2 mg by mouth in the morning and 2 mg before bedtime. Historical ProviderMD Active lamoTRIgine (LaMICtal) 100 MG tablet [id number] Take 100 mg by mouth at bedtime Historical ProviderMD Active lamoTRIgine (LaMICtal) 150 MG tablet [id number] Take 150 mg by mouth in the morning. Historical ProviderMD Active levothyroxine (Synthroid, Levoxyl) 200 MCG tablet [id number] Take 200 mcg by mouth in the morning. Take before meals. Historical ProviderMD Active levothyroxine (Synthroid, Levoxyl) 25 MCG tablet [id number] Take 25 mcg by mouth in the morning. Take before meals. Historical ProviderMD Active loratadine (Claritin) 10 MG tablet [id number] Take 10 mg by mouth Daily Historical ProviderMD Active Melatonin 3 MG tablet dispersible [id number] Take 3 mg by mouth at bedtime Historical MD Jennie Active norethindrone-ethinyl estradiol (Ortho-Novum, Nortrel) 1-35 MG-MCG tablet [id number] Take 1 tablet by mouth Daily Historical ProviderMD Active paliperidone (Invega) 3 MG 24 hr tablet [id number] Take 3 mg by mouth in the morning and 3 mg before bedtime. Do not crush, chew, or split.. Historical ProviderMD Active polyethylene glycol, PEG, 3350 (Miralax) 17 g packet [id number] Take 17 g by mouth Daily Historical MD Jennie Active QUEtiapine (SEROquel) 200 MG tablet [id number] Take 200 mg by mouth at bedtime Historical MD Jennie Active QUEtiapine (SEROquel) 400 MG tablet [id number] Take 400 mg by mouth at bedtime Historical ProviderMD Active HPI History obtained from caregiver report from [place] Caregiver from [place] here with patient today SEIZURE -on lamictal and depakote -denies any missed doses -denies any recent seizure -[place] continues to use a wheelchair -she is [...] triceps, wrist extensors, wrist extensors, wrist flexor, superintendent horticulture strength 5/5. LUE Strength deltoid, biceps, triceps, wrist extensors, wrist extensors, wrist flexor, superintendent horticulture strength 5/5. RLE Strength illopsoas, quadriceps, tibialis [...] is note from PT and staff at [place] that the patient has had continued loss [...] or CTA she would require sedation per [place]. She continues with balance disturbance and worsening strength per PT at [place]. Blood work 09/12/2023: Valproic acid level 93.9, [...] Progress notes and PT notes reviewed from [place]. We will look into local options for [...] up after imaging. documented in this encounter [facility] 06-10-2024 History of Present illness Narrative Images [...] subungual debris. They were painful to palpation 19315 on the right 12242 on the left. VASC: DP /PT were nonpalpable bilateral. Capillary refill time < 3 seconds Digits 1-5 bilateral NEURO: [place] Cecy 5.07 monofilament was intact B/L. Vibratory [...] 10. MAURA Salas documented in this encounter [facility] 06-03-2024 History of Present illness Narrative Romelia [...] Review Audit Reviewed by Krista Wu MA (Bottle House Pumper) on 06/03/24 at 0955 Medication Order Taking? Sig Documenting Provider Last Dose Status ammonium lactate (Amlactin) 12 % cream [id number] Apply 2 application topically Daily Patient not taking: Reported on 06/03/2024 Historical MD Jennie Active busPIRone (Buspar) 30 MG tablet [id number] Take 30 mg by mouth in the morning and 30 mg in the evening and 30 mg before bedtime. Historical MD Jennie Active cloNIDine (Catapres) 0.2 MG tablet [id number] Take 0.2 mg by mouth in the morning and 0.2 mg at noon and 0.2 mg in the evening and 0.2 mg before bedtime. Historical MD Jennie Active divalproex (Depakote) 125 MG EC tablet [id number] Take 500 mg by mouth in the morning and 500 mg in the evening and 500 mg before bedtime. Real Schneider MD Active divalproex (Depakote) 125 MG EC tablet [id number] Take 1,000 mg by mouth at bedtime Do not crush, chew, or split. Real Schneider MD Active famotidine (Pepcid) 40 MG tablet [id number] Take 40 mg by mouth Daily Historical MD Jennie Active guanFACINE (Tenex) 2 MG tablet [id number] Take 2 mg by mouth in the morning and 2 mg before bedtime. Real Schneider MD Active lamoTRIgine (LaMICtal) 100 MG tablet [id number] Take 100 mg by mouth at bedtime Historical MD Jennie Active lamoTRIgine (LaMICtal) 150 MG tablet [id number] Take 150 mg by mouth in the morning. Real Schneider MD Active levothyroxine (Synthroid, Levoxyl) 200 MCG tablet [id number] Take 200 mcg by mouth in the morning. Take before meals. Historical ProviderMD Active levothyroxine (Synthroid, Levoxyl) 25 MCG tablet [id number] Take 25 mcg by mouth in the morning. Take before meals. Historical ProviderMD Active loratadine (Claritin) 10 MG tablet [id number] Take 10 mg by mouth Daily Historical ProviderMD Active Melatonin 3 MG tablet dispersible [id number] Take 3 mg by mouth at bedtime Historical ProviderMD Active norethindrone-ethinyl estradiol (Ortho-Novum, Nortrel) 1-35 MG-MCG tablet [id number] Take 1 tablet by mouth Daily Historical ProviderMD Active paliperidone (Invega) 3 MG 24 hr tablet [id number] Take 3 mg by mouth in the morning and 3 mg before bedtime. Do not crush, chew, or split.. Historical ProviderMD Active polyethylene glycol, PEG, 3350 (Miralax) 17 g packet [id number] Take 17 g by mouth Daily Historical ProviderMD Active QUEtiapine (SEROquel) 200 MG tablet [id number] Take 200 mg by mouth at bedtime Historical ProviderMD Active QUEtiapine (SEROquel) 400 MG tablet [id number] Take 400 mg by mouth at bedtime Historical Provider, Active HPI History obtained from caregiver report from [place] Caregiver from [place] here with patient today SEIZURE -on lamictal and depakote -denies any missed doses -denies any recent seizure -[place] continues to use a wheelchair for long [...] triceps, wrist extensors, wrist extensors, wrist flexor, superintendent horticulture strength 5/5. LUE Strength deltoid, biceps, triceps, wrist extensors, wrist extensors, wrist flexor, superintendent horticulture strength 5/5. RLE Strength illopsoas, quadriceps, tibialis [...] or CTA she would require sedation per [place]. She had two recent falls 07/17/23 and 08/02/23. She was evaluated at [facility]. Lamictal dose was recently decreased, although [...] seizure prevention Continue with fall precautions at [place] and assisted transfers and supervision/assistance with ambulation to avoid falls. She is at a high risk of trauma and debility associated with falls. 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 They were painful to palpation 90068 on the right 23493 on the left. VASC: DP /PT were nonpalpable bilateral. Capillary refill time < 3 seconds Digits 1-5 bilateral NEURO: [place] Cecy 5.07 monofilament was intact B/L. Vibratory [...] nails. MAURA Salas documented in this encounter [facility] 03-02-2024 Hospital Discharge instructions Rehana Aguillon RN - 03/02/2024 12:22 PM EST PERIOPERATIVE DISCHARGE/HOME-GOING INSTRUCTIONS ANESTHESIA - GENERAL (ADULT) If a problem arises, you may contact your physician by calling [phone] and asking for the resident transmission technician for Dental service. Special Care Needs: Activity: [...] very uncomfortable and can t urinate, call [phone] or come to the emergency room. A [...] instructions. documented in this encounter [facility] 03-02-2024 Miscellaneous Notes Brief Operative Note PHE OR 3 Chantel Ascencio 29 year old female Surgical Contact Serial Number: [id number] Preoperative Diagnosis: Pre-op Diagnosis * Caries [K02.9] Postoperative Diagnosis: * Caries [K02.9] Procedures: Full mouth x-ray [53104] Prophylaxis [17828] Restorations [22540] Floride application [00601] Surgeon(s): Surgeon(s): Elmer Topete DDS Staff: Program Director/Music Director Nurse: Trudi Padilla Precision Thread Grinder Operator: Paula Contreras DDS; Melquiades Christie DDS Anesthesia: General Anesthesiologist: Milton Luna MD ASSISTANT INFANT TODDLER TEACHER: Adalgisa Smith APRN-DARSHAN Client Application Support Engineer: Dayanna Preciado MD Specimen(s): * No [...] were discussed with the patient and/or legal branch customer service representative. The risks, benefits and alternatives were reviewed. Questions regarding blood transfusions were answered. The patient /or the patient s legal branch customer service representative agree with the plan for transfusion of blood and/or blood components. Surgical Case Number Data Unavailable Operating Room Data Unavailable Preoperative Diagnosis(es): Caries [k02.9] Surgeon: Dr. Topete Orthotics Prosthetics Technician Surgeon: Melquiades Arias DDS - Paula Contreras [...] the treatment plan included the following: Composite gnosticism on tooth #7 surface ML. Amalgam restorations [...] EST documented in this encounter [facility] 03-02-2024 Surgery Postoperative evaluation and management note Brief Operative Note PHE OR 3 Chantel Loomisyer 29 year old female Surgical Contact Serial Number: [id number] Preoperative Diagnosis: Pre-op Diagnosis * Caries [K02.9] Postoperative Diagnosis: * Caries [K02.9] Procedures: Full mouth x-ray [61737] Prophylaxis [45028] Restorations [45480] Floride application [46721] Surgeon(s): Surgeon(s): Elmer Topete DDS Staff: Program Director/Music Director Nurse: Trudi Padilla Precision Thread Grinder Operator: Paula Contreras DDS; Melquiades Christie DDS Anesthesia: General Anesthesiologist: Milton Luna MD ASSISTANT INFANT TODDLER TEACHER: sAdalgisa APRN-DARSHAN Client Application Support Engineer: Dayanna Preciado MD Specimen(s): * No [...] at 03/02/2024 11:55 AM EST [facility] 03-02-2024 History and physical note Images from the original note were not included. Surgical History and Physical [facility] [address] [place] [address] Name: Chantel Ascencio : 1995 29 year old CSN: [id number] Attending: Elmer Topete DDS Date of Admission: 03/02/2024 8:38 AM Room/Bed: [facility] OR/NONE Planned Procedure: Procedure(s): DENTAL RESTORATIONS HPI: [...] surgical history indicates: EXTRACTION, TOOTH (09/15/2014) Procedure: [place] teeth; Surgeon: Bradley Goodwin DDS; Location: PERIOPERATIVE [...] or any previous visit (from the past 79977 hours). BMP (last 3 years, up to [...] Topete DDS at 03/02/2024 11:48 AM EST [facility] 03-02-2024 Note Surgical History and Physical [facility] [address] [place] [address] Name: Chantel Ascencio : 1995 29 year old CSN: [id number] Attending: Elmer Topete DDS Date of Admission: 03/02/2024 8:38 AM Room/Bed: [facility] OR/NONE Planned Procedure: Procedure(s): DENTAL RESTORATIONS HPI: [...] surgical history indicates: EXTRACTION, TOOTH (09/15/2014) Procedure: [place] teeth; Surgeon: Bradley Goodwin DDS; Location: PERIOPERATIVE [...] or any previous visit (from the past 64719 hours). BMP (last 3 years, up to [...] Melquiades Stewart DDS 03/02/24 9:38 AM [facility] 03-02-2024 History and physical note Surgical [...] Topete DDS at 03/02/2024 11:48 AM EST [facility] 03-02-2024 Note Surgical Attestation : I have [...] Melquiades Stewart DDS 03/02/2024 9:38 AM [facility] 03-02-2024 Progress note Formatting of t his note is different from the original. Blood Attestation: ATTESTATION OF INFORMED CONSENT FOR BLOOD: The transfusion of blood and/or blood components were discussed with the patient and/or legal branch customer service representative. The risks, benefits and alternatives were reviewed. Questions regarding blood transfusions were answered. The patient /or the patient s legal branch customer service representative agree with the plan for transfusion of blood and/or blood components. [facility] Work Phone: 03-02-2024 History of Present illness Narrative ----- Saturday, March 02, 2024 at 11:38:59 AM ----- ----- Provider: [id number] - Elmer Rebolledo DDS -- Clinic: [facility] ----- [place] notes, pt is ready for tx [place]. X-Rays look good, few cavities found and confirmed clinically. restos completed. OP Note by Paula Contreras DDS at 03/01/2024 6:14 PM Author: Paula Contreras DDS Service: Dentistry Author Type: Resident Filed: 03/02/2024 11:56 AM Date of Service: 03/01/2024 6:14 PM Note Type: OP Note Status: Cosign Needed Calculus Tutor: Paula Contreras DDS (Resident) Cosign Required: Yes Expand All Collapse All Surgical Case Number Data Unavailable Operating Room Data Unavailable Preoperative Diagnosis(es): Caries [k02.9] Surgeon: Dr. Topete Orthotics Prosthetics Technician Surgeon: Melquiades Arias DDS - Paula Contreras [...] the treatment plan included the following: Composite gnosticism on tooth #7 surface ML. Amalgam restorations [...] 2024 at 11:57:17 AM ----- ----- Provider: [id number] Misael Rebolledo DDS -- Clinic: [facility] ----- documented in this encounter [facility] 03-01-2024 Surgery Surgical operation note Surgical Case Number Data Unavailable Operating Room Data Unavailable Preoperative Diagnosis(es): Caries [k02.9] Surgeon: Dr. Topete Orthotics Prosthetics Technician Surgeon: Melquiades Arias DDS - Paula Contreras [...] the treatment plan included the following: Composite gnosticism on tooth #7 surface ML. Amalgam restorations [...] Topete DDS at 03/02/2024 11:56 AM EST [facility] 03-01-2024 Note Surgical Attestation : I have reviewed the patient's History and Physical Examination. I have personally seen and evaluated the patient, repeating cabrera portions. There is no significant interval change. Surgery is still indicated. Yes Consent reviewed and signed by patient/family: Yes Operative site verified and marked: Verified but not marked Paula Contreras DDS 03/01/2024 6:10 PM [facility] 02-24-2024 Telephone encounter Note Anesthesia consent obtained and scanned into EPIC. Scheduled for surgery 03/02/2024. [facility] 02-24-2024 Miscellaneous Notes Anesthesia consent obtained and scanned into EPIC. Scheduled for surgery 03/02/2024. documented in this encounter [facility] 02-21-2024 Telephone encounter Note Anesthesia consent obtained and scanned into EPIC. Scheduled for surgery 03/02/2024. [facility] 02-21-2024 Miscellaneous Notes Anesthesia consent obtained and scanned into EPIC. Scheduled for surgery 03/02/2024. documented in this encounter [facility] 02-19-2024 Instructions Kelly Cabello RN - 02/19/2024 [...] ? Expect a call from [facility] [facility] one business day prior to surgery for [...] your Preparing for Your Surgery/Procedure booklet or [email or web address] if you have questions. Contact the Pre-Admission Testing department at [phone] or your surgeon's office with any questions [...] you after surgery. Please call [facility] Social Work if you need transportation assistance or have concerns about going home [phone]. ? PLEASE BE ON TIME. A late arrival may result in the cancellation/ delay of your surgery. Thank you for choosing [facility]; it is our pleasure to care for you documented in this encounter [facility] 02-19-2024 Evaluation note Telephone History Chantel Sonu, [id number] 02/19/2024 Patient was identified by name and date of via Ivon, caregiver. Needs: Physical, Neck Circumference, BHCG, and ED on DOS. Note: OSH records/labs scanned to [employer]. If the patient becomes ill prior to procedure or surgery, they are to call their provider or surgeon's office directly. 29 year old 136.6 lbs 5' 4 Date of Surgery: 03/02 Surgeon: Yoselyn Type of Surgery: DENTAL RESTORATIONS HISTORY OF PRESENT ILLNESS: telephone history for the upcoming surgery at [facility], [address] [place], enter through the [facility] doors. STOP-BANG Row Name 02/19/24 7303 History of sleep apnea? 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 Fluticasone Propionate (FLONASE NASAL) [place] into each nostril. Selenium (SELENIMIN ORAL) Take [...] otherwise contacted. ? Expect a call from [facility] one business day prior to surgery for [...] your Preparing for Your Surgery/Procedure booklet or [email or web address] if you have questions. Contact the Pre-Admission Testing department at [phone] or your surgeon's office with any questions [...] you after surgery. Please call [facility] Social Work if you need transportation assistance or have concerns about going home [phone]. ? PLEASE BE ON TIME. A late arrival may result in the cancellation/ delay of your surgery. Thank you for choosing [facility]; it is our pleasure to care for you Kelly Cabello RN Time Spent Performing this Telephone History: 48 with follow-up [facility] [place]: [facility] 02-19-2024 Miscellaneous Notes Telephone History Chantel Ascencio, [id number] 02/19/2024 Patient was identified by name and [...] for the upcoming surgery at [facility], [address] [place], enter through the [facility] doors. 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 norethindrone-ethinyl estradiol (Nortrel 135, 21,) 1-35 MG-MCG tablet [...] Take by mouth. Fluticasone Propionate (FLONASE NASAL) [place] into each nostril. Selenium (SELENIMIN ORAL) Take [...] otherwise contacted. ? Expect a call from [facility] one business day prior to surgery for [...] your Preparing for Your Surgery/Procedure booklet or [email or web address] if you have questions. Contact the Pre-Admission Testing department at [phone] or your surgeon's office with any questions [...] you after surgery. Please call [facility] Social Work if you need transportation assistance or have concerns about going home [phone]. ? PLEASE BE ON TIME. A late arrival may result in the cancellation/ delay of your surgery. Thank you for choosing [facility]; it is our pleasure to care for you Kelly Cabello RN Time Spent Performing this Telephone History: 48 with follow-up [facility] [place]: documented in this encounter [facility] 02-19-2024 Miscellaneous Notes Telephone History Chantel Ascencio, [id number] 02/19/2024 Patient was identified by name and date of via Ivon, caregiver. Needs: Physical, Neck Circumference, BHCG, and ED on DOS. Note: OSH records/labs scanned to chief media officer. If the patient becomes ill prior to procedure or surgery, they are to call their provider or surgeon's office directly. 29 year old 136.6 lbs 5' 4 Date of Surgery: 03/02 Surgeon: Yoselyn Type of Surgery: DENTAL RESTORATIONS HISTORY OF PRESENT ILLNESS: telephone history for the upcoming surgery at [facility], [address] [place], enter through the [facility] entrance doors. STOP-BANG Row Name 02/19/24 1154 History of sleep apnea? 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 norethindrone-ethinyl estradiol (Nortrel 135, 21,) 1-35 MG-MCG tablet [...] Take by mouth. Fluticasone Propionate (FLONASE NASAL) [place] into each nostril. Selenium (SELENIMIN ORAL) Take [...] otherwise contacted. ? Expect a call from [facility] one business day prior to surgery for [...] your Preparing for Your Surgery/Procedure booklet or [email or web address] if you have questions. Contact the Pre-Admission Testing department at [phone] or your surgeon's office with any questions [...] you after surgery. Please call [facility] Social Work if you need transportation assistance or have concerns about going home [phone]. ? PLEASE BE ON TIME. A late arrival may result in the cancellation/ delay of your surgery. Thank you for choosing [facility]; it is our pleasure to care for you Kelly Cabello RN Time Spent Performing this Telephone History: 48 with follow-up [facility] [place]: documented in this encounter [facility] 10-21-2023 History and physical note Images from the original note were not included. Surgical History and Physical [facility] [address] [facility] [address] [address] Name: Chantel Ascencio : 1995 29 year old CSN: [id number] Attending: Elmer Topete DDS Date of Admission: 03/02/2024 8:38 AM Room/Bed: [facility] OR/NONE Planned Procedure: Procedure(s): DENTAL RESTORATIONS HPI: [...] surgical history indicates: EXTRACTION, TOOTH (09/15/2014) Procedure: [place] teeth; Surgeon: Bradley Goodwin DDS; Location: PERIOPERATIVE [...] or any previous visit (from the past 51468 hours). BMP (last 3 years, up to [...] EST documented in this encounter [facility] 04-30-2022 Miscellaneous Notes Bina from [facility] calling in. She wanted to know where the pt was at on the OR wait list. E-mail sent to Connie E-mail sent 04/30/22 documented in this encounter [facility] 04-30-2022 Telephone encounter Note Bina from [facility] calling in. She wanted to know where the pt was at on the OR wait list. E-mail sent to Connie E-mail sent 04/30/[address] [facility] History of Present illness Narrative ----- Saturday, March 13, 2022 at 11:58:40 AM ----- ----- Provider: [id number] Coreas DMD -- Clinic: [facility] ----- OR EVALUATION Patient presents for evaluation [...] available. Legal Guardian: Toshia Ascencio Phone #: [phone] NOTE: Patient had a hard time leaning her head back, but allowed me to look. Patient not indicating she is in any pain. #8 is very discolored - most likely will need RCT treatment. Gingiva very red and irritated. Caregiver did not know who patient's guardian was or contact information, looked it up in [employer]. Next Visit: OR documented in this encounter [facility] Evaluation note Diagnosis Caries- Primary Unspecified dental caries [facility] Diagnosis Caries- Primary Unspecified dental caries Caries- Primary Unspecified dental caries [facility] Diagnosis Seizure disorder (CMS/HCC)- Primary Unspecified epilepsy without mention of intractable epilepsy Mental deficiency ([facility]) Unspecified mental retardation Autism ([facility]) Autistic disorder, current or active state Pseudobulbar [...] [facility] Diagnosis Seizure disorder ([facility])- Primary Unspecified epilepsy without mention of intractable epilepsy Autism ([facility]) Autistic disorder, current or active state Developmental delay Unspecified delay in development Gait instability Abnormality of gait [facility] Diagnosis Onychomycosis- Primary Dermatophytosis of nail Pain in right toe(s) Pain in left toe(s) [facility]* Diagnosis Seizure disorder ([facility]/HCC)- Primary Unspecified epilepsy without mention of intractable [...] Specialty Diagnoses / Procedures Referred By Alessandro t Referred To Contact Ambulatory Surgery Diagnoses Caries Caries [K02.9] Procedures INTERDENTAL FIXATION. UNLISTED PROCEDURE, DENTOALVEOLAR STRUCTURES DENTAL RESTORATIONS Elmer Topete, DDS [address] [place] [address] Phone: tel: fax: [employer] [place] [place] [address] Phone: tel: Referral ID Status Reason Start Date Expiration Date Visits Re quested Visits Authorized [id number] 3 3 [facility] Summary Purpose Family History No Family History [...] Caries Elmer Topete, DDS [address] [place] [address] [facility] PRE ADMISSION TESTING [address] [id number] Referral ID Status Reason Start Date Expiration Date V isits Requested Visits Authorized [id number] Authorized 12/27/2023 12/26/2024 1 1 Scheduling Instructions Your surgical team will reach out to you to schedule a pre-admission testing appointment. Question Answer Reason for consult? Recommended PAT Risk Score Additional Source Comments INFORMATION SOURCE (unrecogn ized section and content) DATE CREATED AUTHOR 10/16/2017 [facility] DATE CREATED AUTHOR AUTHOR'S ORGANIZ ATION 09/02/2022 [facility] DATE CREATED AUTHOR AUTHOR'S ORGANIZ ATION 01/11/2023 [facility] DATE CREATED AUTHOR AUTHOR'S ORGANIZ ATION 03/10/2024 [facility] DATE CREATED AUTHOR AUTHOR'S ORGANIZ ATION 10/06/2024 [facility] DATE CREATED AUTHOR AUTHOR'S ORGANIZ ATION 11/27/2024 [facility] EPIC Reason for Visit (unrecogniz ed section and content) Reason Onset Date Comments Dental 04/30/2022 Reason Comments Seizures Reason Onset Date Comments PAT 02/21/2024 Anesthesia conse nt obtained Reason Onset Date Comments PAT 02/24/2024 Anesthesia conse nt obtained Reason Onset Date Comments Pre-surgical Evaluation 02/26/2024 DD adult dental restorations 03/02 under [place] at [place]. PAT completed - anesthesia consent. PAT RN spoke to Mary (nurse), confirmed NPO, [place] address, and 0900 arrival time Reason Comments Toenail Problem RT grt nail fungal Reason Comments Toenail Care Non DM nail care Care Teams (unrecognized sec tion and content) Orthoptist Relationship Specialty Start Date End Date Unallocated, May Schneider MD [address] [place] [address] PCP - General Family Medicine 07/09/23 Kris Mcguire MD [address] [id number] Referring Physician Neurology 07/09/23 Orthoptist Relationship Specialty Start Date End Date Unallocated, May Schneider MD [address] [place], [place] [address] [place] [address] PCP - General Family Medicine 07/09/23 Kris Mcguire MD [address] [id number] Referring Physician Neurology 07/09/23 Orthoptist Relationship Specialty Start Date End Date Nathan Tilley MD [facility] [employer] [address] [place] [address] PCP - General Family Medicine 03/10/24 Kris Mcguire MD [address] [id number] Referring Physician Neurology 07/09/23 Orthoptist Relationship Specialty Start Date End Date Nathan Tilley MD [facility] [employer] [address] [place] [address] PCP - General Family Medicine 03/10/24 Kris Mcguire MD [address] [id number] Referring Physician Neurology 07/09/23 Orthoptist Relationship Specialty Start Date End Date Nathan Tilley MD [address] [place] [address] PCP - General Family Medicine 03/10/24 Kris Mcguire MD [address] [place] [address] Referring Physician Neurology 07/09/23 Orthoptist Relationship Specialty Start Date End Date Nathan Tilley MD [facility] [employer] [address] [place] [address] PCP - General Family Medicine 03/10/24 Kris Mcguire MD [address] [place] [address] Referring Physician Neurology 07/09/23 Orthoptist Relationship Specialty Start Date End Date Nathan Tilley MD [facility] [employer] [address] [place] [address] PCP - General Family Medicine 03/10/24 Kris Mcguire MD [address] [place] [address] Referring Physician Neurology 07/09/23 Orthoptist Relationship Specialty Start Date End Date Nathan Tilley MD [facility] [employer] [address] [place] [address] PCP - General Family Medicine 03/10/24 Kris Mcguire MD Referring Physician Neurology 07/09/23 Orthoptist Relationship Specialty Start Date End Date Nathan Tilley MD [address] [place] [address] PCP - General Family Medicine 03/10/24 Kris Mcguire MD Referring Physician Neurology 07/09/23 Orthoptist Relationship Specialty Start Date End Date Nathan Tilley MD [address] [place] [address] PCP - General [facility] Medicine 03/10/24 Kris Mcguire MD Referring Physician Neurology 07/09/23 Orthoptist Relationship Specialty Start Date End Date Nathan Tilley MD [address] [place] [address] PCP - General [facility] Medicine 03/10/24 Kris Mcguire MD Referring Physician [...] BE BASED ON THE PRIMARY CLINICAL RECORDS. [employer] [facility]. provides no warranty or guarantee of the accuracy or completeness of information in this document.
== END 2024-12-08 07:16 | disposition home or self-care (01) ==
LOC: LAB 07:15
PROVIDERS: PCP Family Medicine; Visit Provider Family Medicine
DX: F41.8 Other specified anxiety disorders (principal); G40.909 Epilepsy, unspecified, not intractable, without status epilepticus; F84.0 Autistic disorder; Z79.899 Other long term (current) drug therapy
CPT/HCPCS: 36415; 80164

== ENCOUNTER 2024-12-15 08:50 | Outpatient (OUT) | payer MEDICARE, MEDICAID, SELFPAY ==
--- OUTSIDE RECORDS SUMMARY | 2024-12-17 08:53 | XMS_ITS | Clinical Summary ---
Author Organization [facility] Healthcare Address [address] [place] [address] [address] Care Team Providers Care American Board Certified Orthotist Name Role Phone Pete Mcguire MD Unavailable Nathan Iyer MD Primary Care Provider [phone] Allergies Active Allergy Reactions Criticality Noted Date [...] problems in the past month noted by Farnham, increased tone in her extremities, dizziness when looking upwards which has been contributing to falls. She has had dizziness in the past, as noted above. She had an unwitnessed fall without reported loss of consciousness. She was evaluated recently after the fall at [facility] and had a Head CT, which revealed no acute process. There was left supraorbital soft tissue laceration. Blood work 11/23/2022 revealed Lamictal 12.4, valproic acid 85. Carotid ultraound was very limited due to patient cooperation, no hemodynamic significant stenosis noted. For MRI or CTA she would require sedation per Farnham. Her balance is stable and there have [...] Description 11/27/2024 Abstract [facility] [address] [facility] [place] [address] Lai Alston, DPM FACFAS 11/24/2024 9:30 AM EDT Procedure Visit [facility] [address] [place] [address] Lai Alston, DPM FACFAS Onychomycosis (Primary Dx); Pain in right toe(s); Pain in left toe(s) 11/24/2024 Bamboo flowsheet [facility] [address] [place] [id number] Lai Alston, DPM FACFAS from Last 3 [...] EST Procedure Visit [facility] [address] [facility] [place] [address] Lai Alston, MAURA FACFAS [address] [facility] [place] [address] Health Maintenance Due Date Last Done Comments Pap Smear 2014 Cervical Cancer Screening 2023 HPV/Cotest 2023 Influenza Vaccine (#1) [address] [place] [address] MEDICARE MEDICAID [place] Care Teams American Board Certified Orthotist Relationship Specialty Start Date End Date Nathan Iyer MD [facility] [employer] [address] [place] [address] PCP - General Family Medicine 03/10/24 Pete Mcguire MD Referring Physician Neurology 07/09/23
--- OUTSIDE RECORDS SUMMARY | 2024-12-17 08:53 | XMS_ITS | Clinical Summary ---
Author Organization [facility] Address [address] [address] Care Team Providers Care Ski Topper Name Role Phone Unavailable Primary Care Provider Unavailabl e Source Comments The following information is NOT included in Care Everywhere downloads:Psychiatric notes, ECG results, Cardiac Rehab notes, Pulmonary Function notes, data from Smart[employer] (includes but not limited toPregnancy data,audiograms, eye exams, pre-surgical evaluation notes, well-child exam data).[facility] Allergies Active Allergy Reactions Criticality Noted Date Comments Linaclotide 03/02/2024 Ethosuximide Rash 09/15/2014 Medications Lactobacillus (ACIDOPHILUS) CAPS Take by mouth. Active CLONIDINE HCL ORAL Take by mouth. Active docusate sodium (COLACE) 100 MG capsule Take 100 mg by mouth 2 times daily. Active Fluticasone Propionate (FLONASE NASAL) [place] into each nostril. Active Selenium (SELENIMIN ORAL) Take by mouth. Active Sennosides (SENNA) 15 MG tablet Take 1 Tab by mouth daily as needed for Constipation. Active topiramate (TOPIRAGEN) 25 MG tablet Take 75 mg by mouth 2 times daily. Active trihexyphenidyl 2 MG tablet Take 2 mg by mouth 3 times daily. Active Zinc Gluconate 50 MG TABS Take by mouth. Active chlorhexidine (PERIDEX) 0.12 % oral solution Take 15 mL by mouth 2 times daily. 1 Bottle 0 09/15/2014 Active ibuprofen (MOTRIN) 600 MG tablet Take 1 Tab by mouth every 6 hours as needed for Pain. 30 Tab 1 09/15/2014 Active busPIRone (BUSPAR) 30 MG tablet Take 30 mg by mouth daily. Active famotidine (PEPCID) 40 MG tablet Take 40 mg by mouth daily. Active GUANFACINE HCL ORAL Take by mouth. Active lamoTRIgine (LaMICtal) 100 MG tablet Take 100 mg by mouth daily. Active loratadine (CLARITIN) 10 MG tablet Take 10 mg by mouth daily. Active melatonin 3 MG TABS tablet Take 3 mg by mouth at bedtime. Active norethindrone-e thinyl estradiol (Nortrel 1/35, 21,) 1-35 MG-MCG tablet Take 1 Tablet by mouth daily. Active paliperidone (INVEGA) 3 MG 24 hour tablet Take 6 mg by mouth daily. Active polyethylene glycol (MIRALAX) packet Dissolve 17 g in 8 ounces of liquid and drink daily. Active QUEtiapine Fumarate (SEROQUEL ORAL) Take by mouth. Active levothyroxine (SYNTHROID) 200 MCG tablet Take 200 mcg by mouth daily. Active Acetaminophen (Tylenol) 325 MG CAPS Take by mouth. Active divalproex (DEPAKOTE) 125 MG EC tablet Take 125 mg by mouth 3 times daily. Active Resolved Problems Problem Noted Date Diagnosed Date Resolved Date Caries 12/27/2023 03/02/2024 Social History Tobacco Use Types Packs/Day Years Used Date Smoking Tobacco: Never Smokeless Tobacco: Never Tobacco Cessation:Counseling Given: Not Answered Alcohol Use Standard Drinks/Week Comments Never 0 (1 standard drink = 0.6 oz pur e alcohol) Substance Use Types Use/Week Comments Never Comments No Sex and Gender Information Value Date Recorded Sex Assigned at Not on file Legal Sex Female 1:56 PM EDT Gender Identity Not on file Sexual Orientation Not on file Last Filed Vital Signs Vital Sign Reading Time Taken Comments Blood Pressure 113/73 03/02/2024 12:30 PM EST Pulse 113 03/02/2024 12:30 PM EST Temperature 36.7 C (98.1 F) 03/02/2024 12:30 PM EST Respiratory Rate 19 03/02/2024 12:30 PM EST Oxygen Saturation 98% 03/02/2024 12:30 PM EST Inhaled Oxygen Concentration - - Weight 62 kg (136 lb 9.6 oz) 03/02/2024 9:11 AM EST Height 162.6 cm (5' 4 ) 03/02/2024 9:11 AM EST Body Mass Index 23.45 03/02/2024 9:11 AM EST Plan of Treatment Health Maintenance Due Date Last Done Comments HIV Test 01/02/2008 Hepatitis C Antibody 2011 Tdap Booster 2011 Hepatitis A (HAV) Vaccine (optional start 19+ years) 01/02/2012 Hepatitis B (HBV) Vaccine (1 of 3 - 19+ 3-dose series) 01/02/2012 Annual Wellness Visit (G0438) 12/21/2013 Pap Smear 2014 HPV Vaccine (optional start 27-45 years) 01/02/2020 COVID-19 Vaccine ( - 2023- season) 2023 05/24/2020, 05/03/2020 Influenza Vaccine (#1) 2025 Shingles (RZV) Vaccine (1 of 2) 2043 Mammography Discontinued Pneumococcal Vaccine(s) Aged Out No l onger eligible based on patient's age to complete this topic Insurance MEDICAID MEDICARE DENTAL-MEDICAID DENTAL-MEDICAID
--- OUTSIDE RECORDS SUMMARY | 2024-12-17 08:53 | XMS_ITS | Clinical Summary ---
Author Organization [facility] tem Address [id number] [address] [place] [address] Care Team Providers Care Mild Disabilities Teacher Name Role Phone Nathan Iyer DO Primary [...] Nose and Throat [address] [place] [address] Lyn Monroy, PA-C [address] [facility] [place] [address] Health Maintenance Due Date Last Done Comments Depression Screening 2005 Tobacco Screening 2005 Adult BMI Screening 2011 DTaP,Tdap and Td Vaccines (1 - Tdap) 01/02/2012 Pap Smear 2014 Influenza Vaccine 12/21/2024 Medical Devices Not on file Insurance MEDICAID [place] MEDICARE Advance Directives Documents on File Type Date Recorded 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
--- OUTSIDE RECORDS SUMMARY | 2024-12-17 08:53 | XMS_ITS | Clinical Summary ---
Author Organization [facility] Address [address] [place], [place] [id number] Care Team Providers Care Contact Center Assistant Name Role Phone Nathan Iyer DO Primary [...] series) 01/02/2020 Influenza Vaccine (#1) 2024 Insurance [address] [place] [address] [place]ICA[place] Care Teams Contact Center Assistant Relationship Specialty Start Date End Date Nathan Iyer DO PCP - General Family Medicine 09/03/12
--- OUTSIDE RECORDS SUMMARY | 2024-12-17 08:53 | XMS_ITS | Encounter Summary ---
Author Organization [facility] Address [address] [place] [address] Care Team Providers Care Mailing Manager Name Role Phone Pete Mcguire MD Unavailable [phone] Nathan Iyer MD Primary Care Provider [phone] Encounter Details Date Type Department Care Team (Late st Contact Info) Description 11/27/2024 Abstract [facility] [address] [address] [place] [id number] Lai Alston, DPM FACFAS [address] [place] [address] Social History Tobacco Use Types [...] EST Procedure Visit [facility] [address] [address] [place] [address] Lai Alston, DPM FACFAS [address] [place] [address] documented as of this encounter Visit Diagnoses Not on filedocumented in this encounter Care Teams Mailing Manager Relationship Specialty Start Date End Date Nathan Iyer MD [facility] [employer] [address] [place] [address] PCP - General Family Medicine 03/10/24 Pete Mcguire MD Referring Physician Neurology 07/09/23 documented as of this encounter
--- OUTSIDE RECORDS SUMMARY | 2024-12-17 08:56 | XMS_ITS | CCD ---
Author Organization [facility] CliniSyal Care Team Providers Care Health Information Administrator Name Role Phone PHYSICIAN, DEFAULT Unavailable Unavailable [...] Provi roselyn Kris Mcguire MD Unavailable Unallocated MD [facility] Provider Primary Care Jaspreet roselyn ELMER TOPETE Attending Unavailable PROVIDER, UNKNOWN Admitting Unavailable PROVIDER, UNKNOWN Admitting Unavailable PROVIDER, UNKNOWN Attending Unavailable ELMER TOPETE Admitting Unavailable ELMER TOPETE Attending Unavailable Nathan Tilley MD Primary Care Provider [phone] Kris Mcguire MD Unavailable [phone] Eduarda De Anda Attending Unavailable Eduarda De Anda Admitting Unavailable Nathan Tilley Primary Care Unavailable Kris Mcguire MD Unavailable EDUARDA DE ANDA Attending Unavailable DOLLAI REYNOLDS Attending Unavailable EDUARDA DE ANDA Attending Unavailable DOLLAI REYNOLDS Attending Unavailable DOLCELAI Attending Unavailable RADHA MARTINEZ Attending Unavailable LAI ALVARADO Attending Unavailable Allergies Allergy Classification Reported Allergen(s) Allergy Type Date of Onset Reaction(s) Facility (20 sources) Ethosuximide; Translations: [ETHOSUXIMIDE] Drug Allergy 09-15-2014 [facility] (1 source) Allopurinol Drug Allergy 07-16-2013 [facility] (1 source) Ethosuximide Drug Allergy 07-16-2013 [facility] (20 sources) linaclotide; Translations: [LINACLOTIDE] Drug Allergy 08-06-2023 [facility] Medications Current Medications Medication Drug Class(es) Dates [...] (12 sources) Corticosteroid Fluticasone Propionate (FLONASE NASAL) Coffey into each nostril. Suspended Fluticasone Prop ionate (FLONASE NASAL) Coffey into each nostril. Active Fluticasone Prop ionate (FLONASE NASAL) Coffey into each nostril. 0 Active guanFACINE 2 [...] by mouth daily. Active polyethylene glycol 3350 36573 mg powder for oral solution (20 sources) [...] ORAL) Take by mouth. 0 Active sennosides, care home 15 mg oral tablet (12 sources) take [...] Episodic Other aftercare (5 sources) Other terminal gauger (current) drug therapy; Translations: [OTH [facility] CURRENT DRUG THERAPY] Onset: 04-03-2022 Episodic Other [...] Range Facility Anesthesia Postprocedure Estelle luationon 03-02-2024 [facility] Authentication Interface Message Text Anesthesia Postoperative Assessment: [...] EVENTS: No notable events documented. Normal [facility] Anesthesia Preprocedure Eval uationon 03-02-2024 [employer] Developer Authentication Interface Message Text ASA: 3 No history of anesthetic complications NPO status: Greater than 8 hours Past Medical History and Review of Systems Pulmonary (+) sleep apnea (-) non-smoker Dental ROS (+) teeth problems missing Endo (+) hypothyroidism (Gato's disease) conformal pad former - negative ROS Comment: - 03/02/2024 beta-HCG [...] ( Anesthesia consent obtained and scanned into MyWave. Scheduled for surgery 03/02/2024. ) Questions answered / anesthesia plan accepted ( Anesthesia consent obtained and scanned into MyWave. Scheduled for surgery 03/02/2024. ) Past medical history, surgical history, allergies, and medications reviewed. Pertinent laboratory tests, EKG, imaging, and consults reviewed and I have personally seen and evaluated the patient, repeating cabrera portions of the history and physical examination. Attestation: Anesthesia options were discussed with the patient and/or legal patient service representative. The risks, benefits and alternatives were reviewed. Questions regarding anesthesia were answered. Patient and/or legal patient service representative knows such anesthetics and procedures may be performed by Resident physicians, Certified Anesthesiologist Assistants, or Certified Nurse Anesthetists under the supervision of a physician. The patient /or the patient's legal patient service representative agree with the plan for anesthesia. Comment: Anesthesia consent obtained and scanned into MyWave. Scheduled for surgery 03/02/2024. MHPATFORM Normal [facility] [place] 03-02-2024 [facility] Developer Authentication Interface Message Text Patient taken to [...] surgical history indicates: EXTRACTION, TOOTH (09/15/2014) Procedure: [place] teeth; Surgeon: Bradley Goodwin DDS; Location: PERIOPERATIVE SERVICES; Service: Oral EUA, ORAL (09/15/2014) Procedure: EUA, ORAL; Surgeon: Bradley Goodwin DDS; Location: PERIOPERATIVE SERVICES; Service: Oral Allergies: Linzess [linaclotide] and Zarontin [ethosuximide] Basic Operating Room Facts: Surgeon(s): Elmer Topete DDS Anesthesiologist: Milton Luna MD VENEER STAPLER: Adalgisa Smith APRN-DARSHAN Dry Chain Operator: Dayanna Preciado MD DENTAL RESTORATIONS (Right: Mouth) [...] was received. Adalgisa Smith APRN-DARSHAN Normal [facility] Blood Attestationon 03-02-20 [facility] Developer Authentication Interface Message Text Blood Attestation: ATTESTATION OF INFORMED CONSENT FOR BLOOD: The transfusion of blood and/or blood components were discussed with the patient and/or legal patient service representative. The risks, benefits and alternatives were reviewed. Questions regarding blood transfusions were answered. The patient /or the patient's legal patient service representative agree with the plan for transfusion of blood and/or blood components. Normal [facility] Brief Operative Noteon 03-02 [employer] Developer Authentication Interface Message Text Brief Operative Note PHE OR 3 Chantel Ascencio 29 year old female Surgical Contact Serial Number: [id number] Preoperative Diagnosis: Pre-op Diagnosis * Caries [K02.9] Postoperative Diagnosis: * Caries [K02.9] Procedures: Full mouth x-ray [98122] Prophylaxis [28452] Restorations [85782] Floride application [50784] Surgeon(s): Surgeon(s): Elmer Topete DDS Staff: Financial Wellness Coach Nurse: Trudi Padilla Environmental Scientist: Paula Contreras DDS; Melquiades Christie DDS Anesthesia: General Anesthesiologist: Milton Luna MD VENEER STAPLER: Adalgisa Smith APRN-DARSHAN Dry Chain Operator: Dayanna Preciado MD Specimen(s): * No specimens [...] Contreras DDS 03/02/2024 11:48 AM Normal [facility] Progress Noteson 03-02-2024 [employer] Developer Authentication Interface Message Text ----- Saturday, March 02, 2024 at 11:38:59 AM ----- ----- Provider: Pradip Rebolledo DDS -- Clinic: [facility] ----- [place] notes, pt is ready for tx [place]. X-Rays look good, few cavities found and confirmed clinically. restos completed. OP Note by Paula Contreras DDS at 03/01/2024 6:14 PM Author: Paula Contreras DDS Service: Dentistry Author Type: Resident Filed: 03/02/2024 11:56 AM Date of Service: 03/01/2024 6:14 PM Note Type: OP Note Status: Cosign Needed Web Content & Social Media Manager: Paula Contreras DDS (Resident) Cosign Required: Yes Expand All Collapse All Surgical Case Number Data Unavailable Operating Room Data Unavailable Preoperative Diagnosis(es): Caries [k02.9] Surgeon: Dr. Topete Electrical Maintenance Engineer Surgeon: Melquiades Arias DDS - Paula Contreras [...] the treatment plan included the following: Composite protestant on tooth #7 surface ML. Amalgam restorations [...] ----- Provider: Pradip Rebolledo DDS -- Clinic: [facility] ----- Normal [facility] URINE [...] Positive Positive [facility] OP Noteon 03-01-2024 [employer] Developer Authentication Interface Message Text Surgical Case Number Data Unavailable Operating Room Data Unavailable Preoperative Diagnosis(es): Caries [k02.9] Surgeon: Dr. Topete Electrical Maintenance Engineer Surgeon: Melquiades Arias DDS - Paula Aboelkheir,DDS [...] the treatment plan included the following: Composite protestant on tooth #7 surface ML. Amalgam restorations [...] Contreras DDS 03/01/2024 6:15 PM Normal [facility] Telephone Encounteron 2023 [facility] Developer Authentication Interface Message Text Anesthesia consent obtained and scanned into MyWave. Scheduled for surgery 03/02/2024. Normal [facility] Telephone Encounteron 2023 [employer] Developer Authentication Interface Message Text Anesthesia consent obtained and scanned into MyWave. Scheduled for surgery 03/02/2024. Normal [facility] PAT Call Historyon [employer] Developer Authentication Interface Message Text Telephone History Chantel Ascencio, [id number] 02/19/2024 Patient was identified by name and date of via Ivon, caregiver. Needs: Physical, Neck Circumference, BHCG, and ED on DOS. Note: OSH records/labs scanned to [facility]. If the patient becomes ill prior to procedure or surgery, they are to call their provider or surgeon's office directly. 29 year old 136.6 lbs 5' 4 Date of Surgery: 03/02 Surgeon: Yoselyn Type of Surgery: DENTAL RESTORATIONS HISTORY OF PRESENT ILLNESS: telephone history for the upcoming surgery at [facility], [address] enter through the west entrance doors. STOP-BANG Row Name 02/19/24 [id number] History of sleep apnea? Yes NO PSG [...] (+) teeth problems missing Endo (+) hypothyroidism conformal pad former - negative ROS Neuro/Psych (+) bipolar disorder, seizures, intellectual disability Cardiovascular - negative ROS GI/Hepatic/Renal (+) GERD Heme/Other - negative ROS PAST SURGICAL HISTORY: Past Surgical History: Procedure Laterality Date EUA, ORAL 09/15/2014 Procedure: EUA, ORAL; Surgeon: Bradley Goodwin DDS; Location: PERIOPERATIVE SERVICES; Service: Oral EXTRACTION, TOOTH Bilateral 09/15/2014 Procedure: [place] teeth; Surgeon: Bradley Goodwin DDS; Location: PERIOPERATIVE [...] Take by mouth. Fluticasone Propionate (FLONASE NASAL) Coffey into each nostril. Selenium (SELENIMIN ORAL) Take by mouth. Sennosides (SENNA) 15 MG tablet Take 1 Tab by mouth daily as needed for Constipation. topiramate (TOPIRAGEN) 25 MG tablet Take 75 mg by mouth 2 times daily (more content not included)... Normal [facility] Progress Noteson 02-17-2024 [employer] Developer Authentication Interface Message Text Patient PAT has be rescheduled for 02/19/2024--for OR visit 03/02/2024----- Saturday, February 17, 2024 at 10:10:00 AM ----- ----- Provider: LESLIE Claros Dental-Automobile Sales Representative -- Clinic: [facility] ----- Normal [facility] Progress Noteson 02-05-2024 [employer] Developer Authentication Interface Message Text Patient was no show for PAT today at [facility] surgery is scheduled 03/02-Contact Concetta @ [facility] --advised if PAT needs to reschedule or patient will be removed from OR----- Monday, February 05, 2024 at 4:24:04 PM ----- ----- Provider: LESLIE [facility] [employer]-Autom[employer] Sales Representative -- Clinic: [facility] ----- Normal [facility] Progress Noteson 01-08-2024 [employer] Developer Authentication Interface Message Text Parent/guardian/pat ient was contacted for PAT AND OR Sedation scheduled -- confirmed information with patient, also informed mom importance of going to PAT appointment -- if missed, IV Sedation will be cancelled, and you will be placed back on wait list 03/02/24----- Monday, January 08, 2024 at 2:14:12 PM ----- ----- Provider: LESLIE [facility] [employer]-Autom[employer] Sales Representative -- Clinic: [facility] ----- Normal [facility] Progress Noteson 12-30-2023 [employer] Developer Authentication Interface Message Text Attempted to contact patient/ parent / guardian at telephone number listed -- no answer, left voicemail message requesting a return call.----- Saturday, December 30, 2023 at 2:26:35 PM ----- ----- Provider: LESLIE [facility]os [employer]-Automobile Sales Representative -- Clinic: [place] ----- Normal [facility] Free T4on 01-09-2023 Free T4 [Mass/Vol] 1.12 ng/dL Normal 0.58-1.64 [facility] Comment on above: Performed By: #### 2 [id number], [id number] #### [facility] [address] [id number] Physician Orderon 01-09-2023 Physician Order [id number] Normal [facility] TSHon 01-09-2023 TSH Qn 4.74 m[IU]/L Normal 0.34-5.60 [facility] Comment on above: Performed By: #### 2 [id number], [id number] #### [facility] [address] [id number] FREE T4on 08-29-2022 Free T4 [Mass/Vol] 1.76 ng/dL Critically high 0.76-1.46 [facility] Comment on above: Performed By: #### F T4 #### [facility] [address] [place] [address] Dr. Volodymyr Paez TSHon 08-29-2022 TSH Qn m[IU]/L Critically low 0.358-3.740 [facility] Comment on above: Performed By: #### T SH #### [facility] [address] [place] [address] Dr. Volodymyr Paez CULTURE URINEon 08-24-2022 CULTURE [...] F Tetracycline >=16 R F Normal [facility] Comment on above: Performed By: #### T SH, CMP #### [facility] [address] [address] [address] Volodymyr Paez UA (CLEAN/CATCH) B2B SALES REPRESENTATIVE/MICRO I F IND.on 08-21-2022 Bilirubin Ql (U) Negative Normal NEGATIVE [facility] Comment on above: Performed By: #### U ACSIND, UMICRO #### [facility] [address] [address] [address] Volodymyr Paez Clarity (U) CLEAR Normal CLEAR [facility] Comment on above: Performed By: #### U ACSIND, UMICRO #### [facility] [address] [place] [address] Dr. Volodymyr Paez Color (U) LT. YELLOW Normal YELLOW [facility] Comment on above: Performed By: #### U ACSIND, UMICRO #### [facility] [address] [place] [address] Dr. Volodymyr Paez Glucose Ql (U) Negative Normal NEGATIVE [facility] Comment on above: Performed By: #### U ACSIND, UMICRO #### [facility] [address] [address] [address] Volodymyr Paez Hemoglobin Ql (U) Negative Normal NEGATIVE [facility] Comment on above: Performed By: #### U ACSIND, UMICRO #### [facility] [address] [address] [address] Volodymyr Paez Ketones Ql (U) Negative Normal NEGATIVE [facility] Comment on above: Performed By: #### U ACSIND, UMICRO #### [facility] [address] [address] [address] Volodymyr Paez LEUKOCYTES SMALL Abnormal NEGATIVE [facility] Comment on above: Performed By: #### U ACSIND, UMICRO #### [facility] [address] [place] [address] Dr. Volodymyr Paez Nitrite Ql (U) Negative Normal NEGATIVE [facility] Comment on above: Performed By: #### U ACSIND, UMICRO #### [facility] [address] [place] [address] Dr. Volodymyr Paez pH (U) 7.0 [pH] Normal 5-9 [facility] Comment on above: Performed By: #### U ACSSHAHEEN UMICRO #### [facility] [address] [place] [address] Dr. Volodymyr Paez SPEC GRAVITY 1.020 Normal 1.005-<=1.025 [facility] Comment on above: Performed By: #### U ACSSHAHEEN UMICRO #### [facility] [address] [place] [address] Dr. Volodymyr Paez UA PROTEIN Negative Normal NEGATIVE/ TRACE [facility] Comment on above: Performed By: #### U ACSSHAHEEN UMICRO #### [facility] [address] [place] [address] Dr. Volodymyr Paez UR MICRO IND INDICATED Normal [facility] Comment on above: Performed By: #### U ACSSHAHEEN UMICRO #### [facility] [address] [place] [address] Dr. Volodymyr Paez Urobilinogen Qn (U) 0.2 {Leta'U}/dL Normal 0.2 - 1. 0 [facility] Comment on above: Performed By: #### U ACSSHAHEEN UMICRO #### [facility] [address] [place] [address] Dr. Volodymyr Paez URINE MICROSCOPIC ONLYon BACTERIA SMALL Abnormal NONE SEEN [facility] Comment on above: Performed By: #### U ACSSHAHEEN UMICRO #### [facility] [address] [place] [address] Dr. Volodymyr Paez Bacteria identified Cx Nom (U) INDICATED Normal [facility] Comment on above: Performed By: #### U ACSSHAHEEN UMICRO #### [facility] [address] [place] [address] Dr. Volodymyr Paez CAST NONE SEEN Normal NONE SEEN [facility] Comment on above: Performed By: #### U ACSSHAHEEN UMICRO #### [facility] [address] [place] [address] Dr. Volodymyr Paez Crystals LM Nom (Urine sed) NONE SEEN Normal NONE SEEN [facility] Comment on above: Performed By: #### U ACSIND, UMICRO #### [facility] [address] [place] [address] Dr. Volodymyr Paez Epithelial cells LM Ql (Urine sed) MODERATE Abnormal NONE SEEN /RARE [facility] Comment on above: Performed By: #### U ACSIND, UMICRO #### [facility] [address] [place] [address] Dr. Volodymyr Paez MUCOUS TRACE Abnormal NONE SEEN [facility] Comment on above: Performed By: #### U ACSSHAHEEN, UMICRO #### [facility] [address] [place] [address] Dr. Volodymyr Paez RBC 2-5 Abnormal 0-2 [facility] Comment on above: Performed By: #### U ACSSHAHEEN, UMICRO #### [facility] [address] [place] [address] Dr. Volodymyr Paez WBC 10-20 Abnormal NONE SEEN [facility] Comment on above: Performed By: #### U ACSSHAHEEN, UMICRO #### [facility] [address] [place] [address] Dr. Volodymyr Paez LAMOTRIGINEon 08-13-2022 Lamotrigine, Serum 11.2 ug/mL Normal 2.0-20.0 [facility] Comment on above: Result Comment: Dete ction Limit = 1.0 Performed By: #### T SH, CMP #### [facility] [address] [place] [address] Dr. Volodymyr Paez CBC AUTO DIFFon 08-09-2022 BASO # 0.0 103/ul Normal 0.0-0.1 [facility] Comment on above: Performed By: #### C BC #### [facility] [address] [place] [address] Dr. Volodymyr Paez Basophils/100 WBC (Bld) 0.4 % Normal 0.2-2.0 [facility] Comment on above: Performed By: #### C BC #### [facility] [address] [place] [address] Dr. Volodymyr Paez EO # 0.4 103/ul Normal 0.0-0.7 [facility] Comment on above: Performed By: #### C BC #### [facility] [address] [place] [address] Dr. Volodymyr Paez Eosinophils/100 WBC (Bld) 4.3 % Normal 0.9-7.0 [facility] Comment on above: Performed By: #### C BC #### [facility] [address] [place] [address] Dr. Volodymyr Paez Erythrocyte distribution width (RBC) [Ratio] 13.2 % Normal 11.0-15.0 [facility] Comment on above: Performed By: #### C BC #### [facility] [address] [place] [address] Dr. Volodymyr Paez Hematocrit (Bld) [Volume fraction] 40.2 % Normal 36.0-48.0 [facility] Comment on above: Performed By: #### C BC #### [facility] [address] [place] [address] Dr. Volodymyr Paez Hemoglobin (Bld) [Mass/Vol] 13.8 g/dL Normal 12.0-16.0 [facility] Comment on above: Performed By: #### C BC #### [facility] [address] [place] [address] Dr. Volodymyr Paez IG # 0.02 10e3/ul Normal 0.00-0.03 [facility] Comment on above: Performed By: #### C BC #### [facility] [address] [place] [address] Dr. Volodymyr Paez IG % 0.2 % Normal 0.0-0.5 [facility] Comment on above: Performed By: #### C BC #### [facility] [address] [place] [address] Dr. Volodymyr Paez LYMPH # 4.3 103/ul Critically high 1.2-3.8 [facility] Comment on above: Performed By: #### C BC #### [facility] [address] [place] [address] Dr. Volodymyr Paez Lymphocytes/100 WBC (Bld) 51.8 % Normal 20.5-60.0 [facility] Comment on above: Performed By: #### C BC #### [facility] [address] [place] [address] Dr. Volodymyr Paez MANUAL DIFF REQ NO Normal [facility] Comment on above: Performed By: #### C BC #### [facility] [address] [place] [address] Dr. Volodymyr Paez MCH (RBC) [Entitic mass] 31.0 pg Normal 26.7-34.0 [facility] Comment on above: Performed By: #### C BC #### [facility] [address] [place] [address] Dr. Volodymyr Paez MCHC (RBC) [Mass/Vol] 34.3 g/dL Normal 29.9-35.2 [facility] Comment on above: Performed By: #### C BC #### [facility] [address] [place] [address] Dr. Volodymyr Paez MCV (RBC) [Entitic vol] 90.3 fL Normal 81.0-99.0 [facility] Comment on above: Performed By: #### C BC #### [facility] [address] [place] [address] Dr. Volodymyr Paez MONO # 0.9 103/ul Critically high 0.3-0.8 [facility] Comment on above: Performed By: #### C BC #### [facility] [address] [place] [address] Dr. Volodymyr Paez Monocytes/100 WBC (Bld) 10.4 % Normal 1.7-12.0 [facility] Comment on above: Performed By: #### C BC #### [facility] [address] [place] [address] Dr. Volodymyr Paez NEUT # 2.7 103/ul Normal 1.4-6.5 [facility] Comment on above: Performed By: #### C BC #### [facility] [address] [place] [address] Dr. Volodymyr Paez Neutrophils/100 WBC (Bld) 32.9 % Critically low 43.0-75.0 [facility] Comment on above: Performed By: #### C BC #### [facility] [address] [place] [address] Dr. Volodymyr Paez Platelet mean volume (Bld) [Entitic vol] 10.3 fL Normal 9.5-13.5 [facility] Comment on above: Performed By: #### C BC #### [facility] [address] [place] [address] Dr. Volodymyr Paez PLT 231 103/ul Normal 150-450 [facility] Comment on above: Performed By: #### C BC #### [facility] [address] [place] [address] Dr. Volodymyr Paez RBC 4.45 106/ul Normal 4.20-5.40 [facility] Comment on above: Performed By: #### C BC #### [facility] [address] [place] [address] Dr. Volodymyr Paez WBC 8.2 103/ul Normal 4.0-11.0 [facility] Comment on above: Performed By: #### C BC #### [facility] [address] [place] [address] Dr. Volodymyr Paez DEPAKENE/ VALPROIC ACIDon DEPAKENE 80.3 ug/ml Normal 50.0-100.0 [facility] Comment on above: Performed By: #### V ALP #### [facility] [address] [place] [address] Dr. Volodymyr Paez US THYROIDon 07-10-2022 US [...] by: MATILDE WATERMAN Date: 2022-07-10 13:01 Normal [facility] LAMOTRIGINEon 06-29-2022 Lamotrigine, Serum 14.2 ug/mL Normal 2.0-20.0 [facility] Comment on above: Result Comment: Dete ction Limit = 1.0 Performed By: #### T AKIKO, CMP #### [facility] [address] [place] [address] Dr. Volodymyr Paez CBC AUTO DIFFon 06-27-2022 BASO # 0.1 103/ul Normal 0.0-0.1 [facility] Comment on above: Performed By: #### T AKIKO, CMP #### [facility] [address] [place] [address] Dr. Volodymyr Paez Basophils/100 WBC (Bld) 0.7 % Normal 0.2-2.0 [facility] Comment on above: Performed By: #### T AKIKO, CMP #### [facility] [address] [place] [address] Dr. Volodymyr Paez EO # 0.4 103/ul Normal 0.0-0.7 [facility] Comment on above: Performed By: #### T SH, CMP #### [facility] [address] [place] [address] Dr. Volodymyr Paez Eosinophils/100 WBC (Bld) 5.1 % Normal 0.9-7.0 [facility] Comment on above: Performed By: #### T AKIKO, CMP #### [facility] [address] [place] [address] Dr. Volodymyr Paez Erythrocyte distribution width (RBC) [Ratio] 13.1 % Normal 11.0-15.0 [facility] Comment on above: Performed By: #### T AKIKO, CMP #### [facility] [address] [place] [address] Dr. Volodymyr Paez Hematocrit (Bld) [Volume fraction] 39.7 % Normal 36.0-48.0 [facility] Comment on above: Performed By: #### T AKIKO, CMP #### [facility] Laboratory [address] [place] [address] Dr. Volodymyr Paez Hemoglobin (Bld) [Mass/Vol] 13.3 g/dL Normal 12.0-16.0 [facility] Comment on above: Performed By: #### T AKIKO, CMP #### [facility] [address] [place] [address] Dr. Volodymyr Paez IG # 0.02 10e3/ul Normal 0.00-0.03 [facility] Comment on above: Performed By: #### T AKIKO, CMP #### [facility] [address] [place] [address] Dr. Volodymyr Paez IG % 0.3 % Normal 0.0-0.5 [facility] Comment on above: Performed By: #### T AKIKO, CMP #### [facility] [address] [place] [address] Dr. Volodymyr Paez LYMPH # 3.6 103/ul Normal 1.2-3.8 [facility] Comment on above: Performed By: #### T AKIKO, CMP #### [facility] [address] [place] [address] Dr. Volodymyr Paez Lymphocytes/100 WBC (Bld) 47.4 % Normal 20.5-60.0 [facility] Comment on above: Performed By: #### T AKIKO, CMP #### [facility] [address] [place] [address] Dr. Volodymyr Paez MANUAL DIFF REQ NO Normal [facility] Comment on above: Performed By: #### T AKIKO, CMP #### [facility] [address] [place] [address] Dr. Volodymyr Paez MCH (RBC) [Entitic mass] 30.3 pg Normal 26.7-34.0 [facility] Comment on above: Performed By: #### T SH, CMP #### [facility] [address] [place] [address] Dr. Volodymyr Paez MCHC (RBC) [Mass/Vol] 33.5 g/dL Normal 29.9-35.2 [facility] Comment on above: Performed By: #### T SH, CMP #### [facility] [address] [place] [address] Dr. Volodymyr Paez MCV (RBC) [Entitic vol] 90.4 fL Normal 81.0-99.0 [facility] Comment on above: Performed By: #### T AKIKO, CMP #### [facility] [address] [place] [address] Dr. Volodymyr Paez MONO # 0.9 103/ul Critically high 0.3-0.8 [facility] Comment on above: Performed By: #### T AKIKO, CMP #### [facility] [address] [place] [address] Dr. Volodymyr Paez Monocytes/100 WBC (Bld) 11.3 % Normal 1.7-12.0 [facility] Comment on above: Performed By: #### T AKIKO, CMP #### [facility] [address] [place] [address] Dr. Volodymyr Paez NEUT # 2.7 103/ul Normal 1.4-6.5 [facility] Comment on above: Performed By: #### T AKIKO, CMP #### [facility] [address] [place] [address] Dr. Volodymyr Paez Neutrophils/100 WBC (Bld) 35.2 % Critically low 43.0-75.0 [facility] Comment on above: Performed By: #### T AKIKO, CMP #### [facility] [address] [place] [address] Dr. Volodymyr Paez Platelet mean volume (Bld) [Entitic vol] 11.4 fL Normal 9.5-13.5 [facility] Comment on above: Performed By: #### T AKIKO, CMP #### [facility] [address] [place] [address] Dr. Volodymyr Paez PLT 96 103/ul Critically low 150-450 [facility] Comment on above: Result Comment: slid e made; no plt clumps seen Performed By: #### T SH, CMP #### [facility] [address] [place] [address] Dr. Volodymyr Paez RBC 4.39 106/ul Normal 4.20-5.40 [facility] Comment on above: Performed By: #### T SH, CMP #### [facility] [address] [place] [address] Dr. Volodymyr Paez WBC 7.6 103/ul Normal 4.0-11.0 [facility] Comment on above: Performed By: #### T SH, CMP #### [facility] [address] [place] [address] Dr. Volodymyr Paez FREE T4on 06-27-2022 Free T4 [Mass/Vol] 1.45 ng/dL Normal 0.76-1.46 [facility] Comment on above: Performed By: #### F T4 #### [facility] [address] [place] [address] Dr. Volodymyr Paez PROF 14(COMP METB)on 023 Albumin [Mass/Vol] 3.2 g/dL Critically low 3.4-5.0 [facility] Comment on above: Performed By: #### T SH, CMP #### [facility] [address] [place] [address] Dr. Volodymyr Paez Albumin/Globulin [Mass ratio] 0.7 {ratio} Normal [facility] Comment on above: Performed By: #### T SH, CMP #### [facility] [address] [place] [address] Dr. Volodymyr Paez ALP [Catalytic activity/Vol] 65 U/L Normal 46-116 [facility] Comment on above: Performed By: #### T SH, CMP #### [facility] [address] [place] [address] Dr. Volodymyr Paez ALT [Catalytic activity/Vol] 20 U/L Normal 14-59 [facility] Comment on above: Performed By: #### T SH, CMP #### [facility] [address] [address] [address] Volodymyr Paez Anion gap [Moles/Vol] 11.3 mmol/L Normal [facility] Comment on above: Performed By: #### T SH, CMP #### [facility] [address] [address] [address] Volodymyr Paez AST [Catalytic activity/Vol] 25 U/L Normal 15-37 [facility] Comment on above: Performed By: #### T SH, CMP #### [facility] [address] [address] [address] Volodymyr Paez Bilirubin [Mass/Vol] 0.3 mg/dL Normal 0.2-1.0 [facility] Comment on above: Performed By: #### T SH, CMP #### [facility] [address] [address] [address] Volodymyr Paez Calcium [Mass/Vol] 9.5 mg/dL Normal 8.5-10.1 [facility] Comment on above: Performed By: #### T SH, CMP #### [facility] [address] [address] [address] Volodymyr Paez Chloride [Moles/Vol] 100 mmol/L Normal 98-107 [facility] Comment on above: Performed By: #### T SH, CMP #### [facility] [address] [address] [address] Volodymyr Paez CO2 [Moles/Vol] 30.1 mmol/L Normal 21.0-32.[address] [facility] Comment on above: Performed By: #### T SH, CMP #### [facility] [address] [address] [address] Volodymyr Paez Creatinine [Mass/Vol] 0.92 mg/dL Normal 0.55-1.02 [facility] Comment on above: Performed By: #### T SH, CMP #### [facility] [address] [address] [address] Volodymyr Paez EGFR-AF ANDORRAN >60 Normal >=[address] [facility] Comment on above: Performed By: #### T SH, CMP #### [facility] [address] [address] [address] Volodymyr Paez EGFR-NON AF ANDORRAN >60 Normal >=60 [facility] Comment on above: Performed By: #### T SH, CMP #### [facility] [address] [address] [address] Volodymyr Paez Globulin (S) [Mass/Vol] 4.4 g/dL Normal [facility] Comment on above: Performed By: #### T SH, CMP #### [facility] [address] [address] [address] Volodymyr Paez Glucose [Mass/Vol] 76 mg/dL Normal 74-106 [facility] Comment on above: Performed By: #### T SH, CMP #### [facility] [address] [address] [address] Volodymyr Paez Potassium [Moles/Vol] 4.4 mmol/L Normal 3.5-5.1 [facility] Comment on above: Performed By: #### T SH, CMP #### [facility] [address] [address] [address] Volodymyr Paez Protein [Mass/Vol] 7.6 g/dL Normal 6.4-8.2 [facility] Comment on above: Performed By: #### T SH, CMP #### [facility] [address] [address] [address] Volodymyr Paez Sodium [Moles/Vol] 137 mmol/L Normal 136-145 [facility] Comment on above: Performed By: #### T SH, CMP #### [facility] [address] [address] [address] Volodymyr Paez Urea nitrogen [Mass/Vol] 7.0 mg/dL Normal 7.0-18.0 [facility] Comment on above: Performed By: #### T SH, CMP #### [facility] [address] [address] [address] Volodymyr Paez Urea nitrogen/Creatinine [Mass ratio] 7.6 mg/mg Normal [facility] Comment on above: Performed By: #### T SH, CMP #### [facility] [address] [address] [address] Volodymyr Paez TSHon 06-27-2022 TSH 0.099 uIU/mL Critically low 0.358-3.740 [facility] Comment on above: Performed By: #### T SH, CMP #### [facility] [address] [address] [address] Volodymyr Paez DEPAKENE/ VALPROIC ACIDon DEPAKENE 72.4 ug/ml Normal 50.0-100.0 [facility] Comment on above: Performed By: #### T AKIKO, CMP #### [facility] [address] [address] [address] Volodymyr Paez US THYROIDon 10-25-2021 US [...] KRIS MENDOZA Date: 2021-10-25 09:31 Normal [facility] FREE T4on 10-24-2021 Free T4 [Mass/Vol] 1.08 ng/dL Normal 0.76-1.46 [facility] Comment on above: Performed By: #### T SH, CMP #### [facility] [address] [place], [place] [address] Dr. Volodymyr Paez TSHon 10-24-2021 TSH 12.719 uIU/mL Critically high 0.358-3.740 [facility] Comment on above: Performed By: #### T SH #### [facility] [address] [place], [place] [address] Dr. Volodymyr Paez Vital Signs Date Time Vital Sign Value Performing Clinician Andreei lity 11-24-2024 10:00-0400 Body height 165.1 cm Lai Hackettce DPM FACFAS Work Phone: [facility] 11-24-2024 10:00-0400 Body mass index (BMI) [Ratio] 21.3 kg/m2 Lai Dolce DPM FACFAS Work Phone: [facility] 11-24-2024 10:00-0400 Body weight 58.06 kg Lai Dolce DPM FACFAS Work Phone: [facility] 11-24-2024 10:00-0400 Diastolic blood pressure 63 mm[Hg] Lai Dolce DPM FACFAS Work Phone: [facility] 11-24-2024 10:00-0400 Heart rate 70 /min Lai Dolce DPM FACFAS Work Phone: [facility] 11-24-2024 10:00-0400 Systolic blood pressure 115 mm[Hg] Lai Dolce DPM FACFAS Work Phone: [facility] 08-25-2024 11:03-0400 Body height 165.1 cm Lai Dolce DPM FACFAS Work Phone: [facility] 08-25-2024 11:03-0400 Body mass index (BMI) [Ratio] 21.3 kg/m2 Lai Dolce DPM FACFAS Work Phone: [facility] 08-25-2024 11:03-0400 Body weight 58.06 kg Lai Dolce DPM FACFAS Work Phone: [facility] 08-25-2024 11:03-0400 Diastolic blood pressure 64 mm[Hg] Lai Alvarado DPM FACFAS Work Phone: [facility] 08-25-2024 11:03-0400 Heart rate 71 /min Lai Alvarado DPM FACFAS Work Phone: [facility] 08-25-2024 11:03-0400 Systolic blood pressure 110 mm[Hg] Lai Alvarado DPM FACFAS Work Phone: [facility] 08-11-2024 10:16-0400 Body height 165.1 cm Eduarda Lowe PA Work Phone: [facility] 08-11-2024 10:16-0400 Body mass index (BMI) [Ratio] 21.47 kg/m2 Eduarda Lowe PA Work Phone: [facility] 08-11-2024 10:16-0400 Body weight 58.51 kg Eduarda Lowe PA Work Phone: [facility] 08-11-2024 10:16-0400 Diastolic blood pressure 62 mm[Hg] Eduarda Lowe PA Work Phone: [facility] 08-11-2024 10:16-0400 Systolic blood pressure 106 mm[Hg] Eduarda Lowe PA Work Phone: [facility] 06-10-2024 10:24-0500 Body height 165.1 cm Lai Alvarado DPM FACFAS Work Phone: [facility] 06-10-2024 10:24-0500 Body mass index (BMI) [Ratio] 21.47 kg/m2 Lai Alvarado DPM FACFAS Work Phone: [facility] 06-10-2024 10:24-0500 Body weight 58.51 kg Lai Alvarado DPM FACFAS Work Phone: [facility] 06-10-2024 10:24-0500 Diastolic blood pressure 72 mm[Hg] Lai Alvarado DPM FACFAS Work Phone: [facility] 06-10-2024 10:24-0500 Heart rate 74 /min Lai Alvarado DPM FACFAS Work Phone: [facility] 06-10-2024 10:24-0500 Systolic blood pressure 120 mm[Hg] Lai Alvarado DPM FACFAS Work Phone: [facility] 06-03-2024 09:45-0500 Body height 165.1 cm Eduarda Lowe PA Work Phone: [facility] 06-03-2024 09:45-0500 Body mass index (BMI) [Ratio] 21.47 kg/m2 Eduarda Lowe PA Work Phone: [facility] 06-03-2024 09:45-0500 Body weight 58.51 kg Eduarda Lowe PA Work Phone: [facility] 03-10-2024 11:19-0500 Body height 165.1 cm Lai Alvarado DPM FACFAS Work Phone: [facility] 03-10-2024 11:19-0500 Body mass index (BMI) [Ratio] 21.3 kg/m2 Lai Alvarado DPM FACFAS Work Phone: [facility] 03-10-2024 11:19-0500 Body weight 58.06 kg Lai Alvarado DPM FACFAS Work Phone: [facility] 03-10-2024 11:19-0500 Diastolic blood pressure 72 mm[Hg] Lai Alvarado DPM FACFAS Work Phone: [facility] 03-10-2024 11:19-0500 Heart rate 88 /min Lai Alvarado DPM FACFAS Work Phone: [facility] 03-10-2024 11:19-0500 Systolic blood pressure 115 mm[Hg] Lai Alvarado DPM FACFAS Work Phone: [facility] 03-02-2024 12:30-0500 Body temperature 98.1 [degF] Elmer Topete DDS Work Phone: [facility] 03-02-2024 12:30-0500 Diastolic blood pressure 73 mm[Hg] Elmer Topete DDS Work Phone: [email or web address] 03-02-2024 12:30-0500 Heart rate 113 /min Elmer Samaniegoi DDS Work Phone: [email or web address] 03-02-2024 12:30-0500 Respiratory rate 19 /min Elmer Topete DDS Work Phone: [email or web address] 03-02-2024 12:30-0500 SaO2% (BldA) [Mass fraction] 98 % Elmer Topete DDS Work Phone: [email or web address] 03-02-2024 12:30-0500 Systolic blood pressure 113 mm[Hg] Elmer Topete DDS Work Phone: [email or web address] 03-02-2024 09:11-0500 Body height 162.6 cm Elmeredgard Topete DDS Work Phone: [facility] 03-02-2024 09:11-0500 Body mass index (BMI) [Ratio] 23.45 kg/m2 Elmeredgrad Topete DDS Work Phone: [email or web address] 03-02-2024 09:11-0500 Body weight 61.96 kg Elmer Topete DDS Work Phone: [email or web address] 02-19-2024 11:00-0400 Body height 162.6 cm Kelly Cabello RN [facility] 02-19-2024 11:00-0400 Body mass index (BMI) [Ratio] 23.45 kg/m2 Kelly Cabello RN [facility] 02-19-2024 11:00-0400 Body weight 61.96 kg Kelly Cabello [email or web address] 01-21-2024 11:05-0400 Diastolic blood pressure 72 mm[Hg] Radha Martinez PA Work Phone: [facility] 01-21-2024 11:05-0400 Heart rate 92 /min Radha Martinez PA Work Phone: [facility] 01-21-2024 11:05-0400 Respiratory rate 16 /min Radha Hill PA Work Phone: [facility] 01-21-2024 11:05-0400 SaO2% (BldA) [Mass fraction] 96 % Radha AMADOR Work Phone: [facility] 01-21-2024 11:05-0400 Systolic blood pressure 118 mm[Hg] Radha AMADOR Work Phone: [facility] Encounters Encounter Date Encounter Type [...] toe(s) Start: 10-01-2024 End: 10-01-2024 ambulatory Eduarda [facility] Facility[facility] Start: 08-25-2024 End: 08-25-2024 Bamboo flowsheet [...] encounter procedure Elmer Topete S Work Phone: [facility] Start: 03-02-2024 End: 03-02-2024 Subsequent hospital visit by physician Elmer Topete [facility] Work Phone: [facility] [place] [facility] Start: 03-02-2024 End: 03-02-2024 ambulatory ELMER TOPETE Facility:[facility] Start: 02-26-2024 End: 02-26-2024 Telephone encounter Kelly Cabello RN [facility] Pre-Admission Testing Comment on above: Pre-surgical Evaluat ion (DD adult dental restorations 03/02 under [place] at [place]. PAT completed - anesthesia consent. ZOHRA RN spoke to Mary (nurse), confirmed NPO, [place] address, and 0900 arrival time/) Start: 02-24-2024 End: 02-24-2024 Telephone encounter Ashleigh Kaplan RN [facility] Pre-Admission Testing Comment on above: PAT (Anesthesia cons ent obtained) Start: 02-21-2024 End: 02-21-2024 Telephone encounter Ashleigh Kaplan RN [facility] Pre-Admission Testing Comment on above: PAT (Anesthesia cons ent obtained) Start: 02-19-2024 End: 02-19-2024 Nursing evaluation of patient and report Kelly Cabello RN [facility] [place] Pre-Admission Testing Comment on above: Pre-op evaluation (P rimary Dx) Start: 02-19-2024 End: 02-19-2024 Preprocedural examination done Kelly Cabello RN [facility] Start: 02-19-2024 ambulatory UNKNOWN PROVIDER Facili ty:[facility] Start: 02-19-2024 Encounter for other preprocedural examination UNKNOWN PROVIDER [facility] Start: 02-05-2024 End: 02-05-2024 Patient encounter procedure Refugio Duronromanherlinda CRISIS MENTAL HEALTH THERAPIST-PHONE TRIAGE SPECIALIST Work Phone: [facility] [place] Pre-Admission Testing Comment on above: NO SHOW (Primary Dx) Start: 01-21-2024 End: 01-21-2024 Bamboo flowsheet Radha AMADOR Work Phone: [email or web address] [facility] Start: 01-21-2024 End: 01-21-2024 Bamboo flowsheet Radha AMADOR Work Phone: [email or web address] [facility] Start: 01-21-2024 End: 01-21-2024 ambulatory RADHA MARTINEZ Not Available Start: 01-21-2024 End: 01-21-2024 Office outpatient visit 15 minutes Radha AMADOR Work Phone: [email or web address] [facility] Comment on above: Seizure disorder (CM S/HCC) (Primary Dx); Mental deficiency (CMS/HCC); Autism (CMS/HCC); Pseudobulbar affect; Gait instability Start: 12-27-2023 End: 12-27-2023 Admission to same day surgery center Mike Weber DDS Work Phone: [facility] Start: 01-09-2023 End: 01-10-2023 ambulatory NATHAN TILLEY Facility:[facility] Start: 08-29-2022 End: 08-30-2022 [...] Telephone encounter Martha dill DMD Work Phone: [facility] Comment on above: Dental Start: 04-03-2022 End: 04-04-[address] NATHAN TILLEY Facility:[facility] Start: 03-13-2022 End: 03-18-2022 Patient encounter procedure Martha Coreas DMD Work Phone: [facility] Start: 10-24-2021 End: 10-25-[address] DOCTOR JAVED Facility:[facility] Start: 11-07-2016 End: 11-08-2016 Ambulatory DEFAULT PHYSICIAN Facility:[facility] Procedures Date Procedure Procedure Detail Performing Clinician Start: 03-02-2024 End: 03-02-2024 Urine test visual color cmprsn neos Milton Luna MD Work Phone: Plan of Treatment Date Care Activity Detail Author Start: 2043 Shingles (RZV) Vacci ne (1 of 2) Shingles (RZV) Vaccine (1 of 2) [facility] Start: 02-23-2025 End: 02-23-2025 Patient encounter procedure 02/23/2025 9:30 AM EST Procedure Visit [facility] [address] [place] [phone] Lai Alvarado, DPM FACFAS [address] [place] [address] [facility] Start: 12-21-2024 Influenza vaccination [facility] Start: 11-03-2024 End: 11-03-2024 Patient encounter procedure 11/03/2024 11:00 AM EDT Procedure Visit [facility] [address] [place] [phone] Lai Alvarado, DPM FACFAS [address] [place] [address] [facility] Start: 08-25-2024 End: 08-25-2024 Patient encounter procedure [facility] SHAINA CHERYL Comment on above: Arrived Start: 08-19-2024 End: 08-19-2024 Patient encounter procedure 08/19/2024 11:00 AM EDT Procedure Visit [facility] [address] [place] [address] Lai Alvarado, DPM FACFAS [address] [facility] [place] [address] [facility] Start: 08-11-2024 End: 08-11-2024 Patient encounter procedure CK BURROUGHS Comment on above: Arrived Start: 06-10-2024 End: 06-10-2024 Patient encounter procedure [facility] Comment on above: Arrived Start: 05-12-2024 End: 05-12-2024 Patient encounter procedure 05/12/2024 11:20 AM EST Office Visit [facility] [address] [place] [address] Radha Martinez PA [address] [place] [address] [facility] Start: 03-02-2024 End: 03-02-2024 Admission to same day surgery center 03/02/2024 9:14 AM EST - 03/02/2024 10:58 AM EST Surgery [facility] [place] [facility] [address] [place] [address] Elmer Topete, DDS [address] [place] [address] DENTAL RESTORATIONS [facility] [place] [facility] Comment on above: DENTAL RESTORATIONS Start: 03-02-2024 End: 03-02-2024 DENTAL RESTORATIONS [facility] Start: 03-02-2024 End: 03-02-2024 Admission to same day surgery center 03/02/2024 7:40 AM EST - 03/02/2024 9:24 AM EST Surgery [facility] [place] [facility] [address] [place] [address] Elmer Topete, DDS [address] [place] [address] DENTAL RESTORATIONS [facility] [place] [facility] Comment on above: DENTAL RESTORATIONS Start: 03-02-2024 End: 03-02-2024 DENTAL RESTORATIONS DENTAL RESTORATIONS Routine scheduled Caries 03/02/2024 7:40 AM EST [facility] Start: 03-02-2024 Subsequent hospital visit by physician [facility] [place] [facility] Start: 03-02-2024 End: 03-02-2024 Patient encounter procedure [facility] Start: 02-05-2024 End: 02-05-2024 Patient encounter procedure 02/05/2024 9:15 AM EDT Office Visit [facility] Pre-Admission Testing [address] [place] [id number] Refugio Ferrell, CRISIS MENTAL HEALTH THERAPIST-PHONE TRIAGE SPECIALIST [address] [facility] [place] [address] [facility] [place] Pre-Admission Testing Start: 01-21-2024 Influenza vaccination Influenza Vacc ine (#1) [facility] Start: 01-21-2024 End: 01-20-2025 Lamotrigine level Lamotrigine level Lab Routine Seizure disorder (CMS/HCC) Expected: 01/21/2024 (Approximate), Expires: 01/20/2025 [facility] Work Phone: Comment on above: Expected: 01/21/2024 (Approximate), Expires: 01/20/2025 Start: 01-21-2024 End: 01-20-2025 Valproic acid level, total Valproic acid level, total Lab Routine Seizure disorder (CMS/HCC) Expected: 01/21/2024 (Approximate), Expires: 01/20/2025 [facility] Comment on above: Expected: 01/21/2024 (Approximate), Expires: 01/20/2025 Start: 12-22-2023 COVID-19 Vaccine ( season) COVID-19 Vaccine ( season) [facility] Start: 12-22-2023 COVID-19 Vaccine ( season) COVID-19 Vaccine ( season) [facility] Start: 12-22-2023 Influenza vaccination Influenza Vacc ine (#1) [facility] Start: 2023 Screening for malign ant neoplasm of cervix [facility] Start: 01-20-2022 Influenza vaccination Influenza [...] Start: 12-21-2013 [facility] wellness [id number] Start: 01-02-2012 [...] [facility] Start: 01-02-2008 HIV [facility] Start: 1993 Medicare Annual Wellness (AWV) Medicare Annual Wellness (AWV) [facility] DENTAL RESTORATIONS DENTAL MEENA RATIONS Routine scheduled [facility] Payers Date Payer Category Payer Self-pay 2024 Medicare [id number] 2014 Dental --Stand Alone DENTAL-MEDI CAID [id number] 2014 Unknown 2013 Medicaid [id number] 2012 Medicare [id number]. [id number] 2012 Medicare FFS MEDICARE [id number] 1993 Unknown [id number] 32 1993 Unknown [id number] 2.840.1.914108.3.579.2.7 32 1993 Unknown [id number] 32 1993 Unknown [id number] 2.16840.1.268611.3.579.2.1 259 1993 Unknown [id number] 2.16840.1.872110.3.579.2.1 259 1993 Unknown [id number] 2.16840.1.301549.3.579.2.1 259 1993 Unknown [id number] 2.16840.1.060593.3.579.2.1 259 1993 Unknown [id number] 2.16.840.1.676054.3.579.2.1 259 1993 Unknown [id number] 2.16.840.1.411868.3.579.2.1 259 1993 Unknown [id number] 2.16.840.1.884997.3.579.2.1 259 1959 Medicaid [id number] 1959 Medicare [id number] 1954 Unknown [id number] 2.16.840.1.952859.3.579.2.5 93 1954 Unknown [id number] 2.16.840.1.670583.3.579.2.5 93 1954 Unknown [id number] 2.16.840.1.164531.3.579.2.5 93 1954 Unknown [id number] 2.16.840.1.786900.3.579.2.5 93 1954 Unknown [id number] 2.16.840.1.751252.3.579.2.5 93 1954 Unknown [id number] 2.16.840.1.787758.3.579.2.5 93 1954 Unknown [id number] 1956 Unknown [id number] 93 Unknown [id number] 27 Unknown [id number] 31 Social History Date Type Detail Facility Tobacco smoking stat [facility] Tobacco smoking consumption unknown [facility] Start: 1995 Sex Assigned At Not on file [facility] Start: 10-01-2023 End: 11-24-2024 Gender identity Not on file [facility] Start: 08-06-2023 End: 02-19-2024 Tobacco smoking status NHIS Never smoked tobacco [facility] Start: 08-06-2023 End: 02-19-2024 Tobacco use and exposure Smokeless tobacco non-user [facility] Start: 10-01-2023 End: 11-24-2024 Alcoholic beverage intake Lifetime non-drinker (finding) [facility] Start: 10-01-2023 End: 11-24-2024 History of Social function [facility] Start: 07-06-2014 Sex Female (finding) [facility] Clinical Notes 03-13-2022 to 11-24-2024 Lai Alvarado [...] subungual debris. They were painful to palpation 33758 on the right 85785 on the left. VASC: DP /PT were nonpalpable bilateral. Capillary refill time < 3 seconds Digits 1-5 bilateral NEURO: Battiest Cecy 5.07 monofilament was intact B/L. Vibratory [...] 10. MAURA Salas documented in this encounter 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 They were painful to palpation 98440 on the right 02619 on the left. VASC: DP /PT were nonpalpable bilateral. Capillary refill time < 3 seconds Digits 1-5 bilateral NEURO: Battiest Cecy 5.07 monofilament was intact B/L. Vibratory [...] 10. MAURA Salas documented in this encounter [facility] 08-11-2024 History of Present illness Narrative Romelia [...] Review Audit Reviewed by Freida Amezquita MA (Knitted Goods Shaper) on 08/11/24 at 1017 Medication Order Taking? Sig Documenting Provider Last Dose Status ammonium lactate (Amlactin) 12 % cream [id number] Apply 2 application topically Daily Patient not taking: Reported on 06/03/2024 Historical ProviderMD Active busPIRone (Buspar) 30 MG tablet [id number] Take 30 mg by mouth in the morning and 30 mg in the evening and 30 mg before bedtime. Historical ProviderMD Active cloNIDine (Catapres) 0.2 MG tablet [id number] Take 0.2 mg by mouth in the morning and 0.2 mg at noon and 0.2 mg in the evening and 0.2 mg before bedtime. Real Schneider MD Active divalproex (Depakote) 125 MG EC tablet [id number] Take 500 mg by mouth in the morning and 500 mg in the evening and 500 mg before bedtime. Real Schneider MD Active divalproex (Depakote) 125 MG EC tablet [id number] Take 1,000 mg by mouth at bedtime Do not crush, chew, or split. Historical MD Jennie Active famotidine (Pepcid) 40 MG tablet [id number] Take 40 mg by mouth Daily Historical MD Jennie Active guanFACINE (Tenex) 2 MG tablet [id number] Take 2 mg by mouth in the morning and 2 mg before bedtime. Historical ProviderMD Active lamoTRIgine (LaMICtal) 100 MG tablet [id number] Take 100 mg by mouth at bedtime Historical ProviderMD Active lamoTRIgine (LaMICtal) 150 MG tablet [id number] Take 150 mg by mouth in the morning. Historical ProviderMD Active levothyroxine (Synthroid, Levoxyl) 200 MCG tablet [id number] Take 200 mcg by mouth in the morning. Take before meals. Historical ProviderMD Active levothyroxine (Synthroid, Levoxyl) 25 MCG tablet [id number] Take 25 mcg by mouth in the morning. Take before meals. Historical ProviderMD Active loratadine (Claritin) 10 MG tablet [id number] Take 10 mg by mouth Daily Historical ProviderMD Active Melatonin 3 MG tablet dispersible [id number] Take 3 mg by mouth at bedtime Historical MD Jennie Active norethindrone-ethinyl estradiol (Ortho-Novum, Nortrel) 1-35 MG-MCG tablet [id number] Take 1 tablet by mouth Daily Historical ProviderMD Active paliperidone (Invega) 3 MG 24 hr tablet [id number] Take 3 mg by mouth in the morning and 3 mg before bedtime. Do not crush, chew, or split.. Historical ProviderMD Active polyethylene glycol, PEG, 3350 (Miralax) 17 g packet [id number] Take 17 g by mouth Daily Historical MD Jennie Active QUEtiapine (SEROquel) 200 MG tablet [id number] Take 200 mg by mouth at bedtime Historical MD Jennie Active QUEtiapine (SEROquel) 400 MG tablet [id number] Take 400 mg by mouth at bedtime Historical ProviderMD Active HPI History obtained from caregiver report from [facility] Caregiver from [facility] here with patient today SEIZURE -on lamictal and depakote -denies any missed doses -denies any recent seizure -[place] continues to use a wheelchair -she is [...] triceps, wrist extensors, wrist extensors, wrist flexor, affiliate marketing coordinator strength 5/5. LUE Strength deltoid, biceps, triceps, wrist extensors, wrist extensors, wrist flexor, affiliate marketing coordinator strength 5/5. RLE Strength illopsoas, quadriceps, tibialis [...] is note from PT and staff at [facility] that the patient has had continued loss [...] or CTA she would require sedation per [facility]. She continues with balance disturbance and worsening strength per PT at [facility]. Blood work 09/12/2023: Valproic acid level 93.9, [...] Progress notes and PT notes reviewed from [place]. We will look into local options for [...] up after imaging. documented in this encounter [facility] 06-10-2024 History of Present illness Narrative Images [...] subungual debris. They were painful to palpation 59433 on the right 61538 on the left. VASC: DP /PT were nonpalpable bilateral. Capillary refill time < 3 seconds Digits 1-5 bilateral NEURO: Battiest Cecy 5.07 monofilament was intact B/L. Vibratory [...] 10. MAURA Salas documented in this encounter [facility] 06-03-2024 History of Present illness Narrative Romelia [...] Review Audit Reviewed by Krista Wu MA (Knitted Goods Shaper) on 06/03/24 at 0955 Medication Order Taking? Sig Documenting Provider Last Dose Status ammonium lactate (Amlactin) 12 % cream [id number] Apply 2 application topically Daily Patient not taking: Reported on 06/03/2024 Historical MD Jennie Active busPIRone (Buspar) 30 MG tablet [id number] Take 30 mg by mouth in the morning and 30 mg in the evening and 30 mg before bedtime. Historical MD Jennie Active cloNIDine (Catapres) 0.2 MG tablet [id number] Take 0.2 mg by mouth in the morning and 0.2 mg at noon and 0.2 mg in the evening and 0.2 mg before bedtime. Historical MD Jennie Active divalproex (Depakote) 125 MG EC tablet [id number] Take 500 mg by mouth in the morning and 500 mg in the evening and 500 mg before bedtime. Real Schneider MD Active divalproex (Depakote) 125 MG EC tablet [id number] Take 1,000 mg by mouth at bedtime Do not crush, chew, or split. Real Schneider MD Active famotidine (Pepcid) 40 MG tablet [id number] Take 40 mg by mouth Daily Historical MD Jennie Active guanFACINE (Tenex) 2 MG tablet [id number] Take 2 mg by mouth in the morning and 2 mg before bedtime. Real Schneider MD Active lamoTRIgine (LaMICtal) 100 MG tablet [id number] Take 100 mg by mouth at bedtime Historical MD Jennie Active lamoTRIgine (LaMICtal) 150 MG tablet [id number] Take 150 mg by mouth in the morning. Real Schneider MD Active levothyroxine (Synthroid, Levoxyl) 200 MCG tablet [id number] Take 200 mcg by mouth in the morning. Take before meals. Historical ProviderMD Active levothyroxine (Synthroid, Levoxyl) 25 MCG tablet [id number] Take 25 mcg by mouth in the morning. Take before meals. Historical ProviderMD Active loratadine (Claritin) 10 MG tablet [id number] Take 10 mg by mouth Daily Historical ProviderMD Active Melatonin 3 MG tablet dispersible [id number] Take 3 mg by mouth at bedtime Historical ProviderMD Active norethindrone-ethinyl estradiol (Ortho-Novum, Nortrel) 1-35 MG-MCG tablet [id number] Take 1 tablet by mouth Daily Historical ProviderMD Active paliperidone (Invega) 3 MG 24 hr tablet [id number] Take 3 mg by mouth in the morning and 3 mg before bedtime. Do not crush, chew, or split.. Historical ProviderMD Active polyethylene glycol, PEG, 3350 (Miralax) 17 g packet [id number] Take 17 g by mouth Daily Historical ProviderMD Active QUEtiapine (SEROquel) 200 MG tablet [id number] Take 200 mg by mouth at bedtime Historical ProviderMD Active QUEtiapine (SEROquel) 400 MG tablet [id number] Take 400 mg by mouth at bedtime Historical Provider, Active HPI History obtained from caregiver report from [place] Caregiver from [place] here with patient today SEIZURE -on lamictal and depakote -denies any missed doses -denies any recent seizure -[place] continues to use a wheelchair for long [...] triceps, wrist extensors, wrist extensors, wrist flexor, affiliate marketing coordinator strength 5/5. LUE Strength deltoid, biceps, triceps, wrist extensors, wrist extensors, wrist flexor, affiliate marketing coordinator strength 5/5. RLE Strength illopsoas, quadriceps, tibialis [...] or CTA she would require sedation per [place]. She had two recent falls 07/17/23 and 08/02/23. She was evaluated at [facility] ER. Lamictal dose was recently decreased, [...] seizure prevention Continue with fall precautions at [facility] and assisted transfers and supervision/assistance with ambulation to avoid falls. She is at a high risk of trauma and debility associated with falls. Follow up 2 months documented in this encounter 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 They were painful to palpation 49546 on the right 41454 on the left. VASC: DP /PT were nonpalpable bilateral. Capillary refill time < 3 seconds Digits 1-5 bilateral NEURO: Battiest Cecy 5.07 monofilament was intact B/L. Vibratory [...] nails. MAURA Salas documented in this encounter [facility] 03-02-2024 Hospital Discharge instructions Rehana Aguillon RN - 03/02/2024 12:22 PM EST PERIOPERATIVE DISCHARGE/HOME-GOING INSTRUCTIONS ANESTHESIA - GENERAL (ADULT) If a problem arises, you may contact your physician by calling [phone] and asking for the resident online health and fitness coach for Dental service. Special Care Needs: Activity: [...] very uncomfortable and can t urinate, call [phone] or come to the emergency room. A [...] home going instructions. documented in this encounter [facility] 03-02-2024 Miscellaneous Notes Brief Operative Note PHE OR 3 Chantel Ascencio 29 year old female Surgical Contact Serial Number: [id number] Preoperative Diagnosis: Pre-op Diagnosis * Caries [K02.9] Postoperative Diagnosis: * Caries [K02.9] Procedures: Full mouth x-ray [98029] Prophylaxis [83470] Restorations [96970] Floride application [64709] Surgeon(s): Surgeon(s): Elmer Topete DDS Staff: Financial Wellness Coach Nurse: Trudi Padilla Environmental Scientist: Paula Contreras DDS; Melquiades Christie DDS Anesthesia: General Anesthesiologist: Milton Luna MD VENEER STAPLER: Adalgisa Smith APRN-DARSHAN Dry Chain Operator: Dayanna Preciado MD Specimen(s): * No specimens [...] were discussed with the patient and/or legal patient service representative. The risks, benefits and alternatives were reviewed. Questions regarding blood transfusions were answered. The patient /or the patient s legal patient service representative agree with the plan for transfusion of blood and/or blood components. Surgical Case Number Data Unavailable Operating Room Data Unavailable Preoperative Diagnosis(es): Caries [k02.9] Surgeon: Dr. Topete Electrical Maintenance Engineer Surgeon: Melquiades Arias DDS - Paula Contreras [...] the treatment plan included the following: Composite protestant on tooth #7 surface ML. Amalgam restorations [...] 11:56 AM EST documented in this encounter [facility] 03-02-2024 Surgery Postoperative evaluation and management note Brief Operative Note PHE OR 3 Chantel Loomisyer 29 year old female Surgical Contact Serial Number: [id number] Preoperative Diagnosis: Pre-op Diagnosis * Caries [K02.9] Postoperative Diagnosis: * Caries [K02.9] Procedures: Full mouth x-ray [79798] Prophylaxis [25905] Restorations [02024] Floride application [45877] Surgeon(s): Surgeon(s): Elmer Topete DDS Staff: Financial Wellness Coach Nurse: Trudi Padilla Environmental Scientist: Paula Contreras DDS; Melquiades Christie DDS Anesthesia: General Anesthesiologist: Milton Luna MD VENEER STAPLER: sAdalgisa APRN-DARSHAN Dry Chain Operator: Dayanna Preciado MD Specimen(s): * No specimens [...] Topete DDS at 03/02/2024 11:55 AM EST [facility] 03-02-2024 History and physical note Images from the original note were not included. Surgical History and Physical [facility] [address] [place] [address] Name: Chantel Ascencio : 1995 29 year old CSN: [id number] Attending: Elmer Topete DDS Date of Admission: 03/02/2024 8:38 AM Room/Bed: [facility] OR/NONE Planned Procedure: Procedure(s): DENTAL RESTORATIONS [...] surgical history indicates: EXTRACTION, TOOTH (09/15/2014) Procedure: [place] teeth; Surgeon: Bradley Goodwin DDS; Location: PERIOPERATIVE [...] or any previous visit (from the past 60804 hours). BMP (last 3 years, up to [...] Topete DDS at 03/02/2024 11:48 AM EST [facility]: 03-02-2024 Note Surgical History and Physical [facility] [address] [place] [address] Name: Chantel Ascencio : 1995 29 year old CSN: [id number] Attending: Elmer Topete DDS Date of Admission: 03/02/2024 8:38 AM Room/Bed: [facility] OR/NONE Planned Procedure: Procedure(s): DENTAL RESTORATIONS [...] surgical history indicates: EXTRACTION, TOOTH (09/15/2014) Procedure: [place] teeth; Surgeon: Bradley Goodwin DDS; Location: PERIOPERATIVE [...] or any previous visit (from the past 71267 hours). BMP (last 3 years, up to [...] Melquiades Stewart DDS 03/02/24 9:38 AM [facility] 03-02-2024 History and physical note Surgical [...] Topete DDS at 03/02/2024 11:48 AM EST [facility] 03-02-2024 Note Surgical Attestation : I have [...] Melquiades Stewart DDS 03/02/2024 9:38 AM [facility] 03-02-2024 Progress note Formatting of t his note is different from the original. Blood Attestation: ATTESTATION OF INFORMED CONSENT FOR BLOOD: The transfusion of blood and/or blood components were discussed with the patient and/or legal patient service representative. The risks, benefits and alternatives were reviewed. Questions regarding blood transfusions were answered. The patient /or the patient s legal patient service representative agree with the plan for transfusion of blood and/or blood components. [facility] Work Phone: 03-02-2024 History of Present illness Narrative ----- Saturday, March 02, 2024 at 11:38:59 AM ----- ----- Provider: [id number] - Elmer Rebolledo DDS -- Clinic: [facility] ----- [place] notes, pt is ready for tx [place]. X-Rays look good, few cavities found and confirmed clinically. restos completed. OP Note by Paula Contreras DDS at 03/01/2024 6:14 PM Author: Paula Contreras DDS Service: Dentistry Author Type: Resident Filed: 03/02/2024 11:56 AM Date of Service: 03/01/2024 6:14 PM Note Type: OP Note Status: Cosign Needed Web Content & Social Media Manager: Paula Contreras DDS (Resident) Cosign Required: Yes Expand All Collapse All Surgical Case Number Data Unavailable Operating Room Data Unavailable Preoperative Diagnosis(es): Caries [k02.9] Surgeon: Dr. Topete Electrical Maintenance Engineer Surgeon: Melquiades Arias DDS - Paula Contreras [...] the treatment plan included the following: Composite protestant on tooth #7 surface ML. Amalgam restorations [...] 2024 at 11:57:17 AM ----- ----- Provider: [id number] Misael Rebolledo DDS -- Clinic: [facility] ----- documented in this encounter [facility] 03-01-2024 Surgery Surgical operation note Surgical Case Number Data Unavailable Operating Room Data Unavailable Preoperative Diagnosis(es): Caries [k02.9] Surgeon: Dr. Topete Electrical Maintenance Engineer Surgeon: Melquiades Arias DDS - Paula Contreras [...] the treatment plan included the following: Composite protestant on tooth #7 surface ML. Amalgam restorations [...] for the critical portions of the procedure. Puala Contreras DDS 03/01/2024 6:15 PM Cosigned by Elmer Topete DDS at 03/02/2024 11:56 AM EST [facility] 03-01-2024 Note Surgical Attestation : I have reviewed the patient's History and Physical Examination. I have personally seen and evaluated the patient, repeating cabrera portions. There is no significant interval change. Surgery is still indicated. Yes Consent reviewed and signed by patient/family: Yes Operative site verified and marked: Verified but not marked Paula Contreras DDS 03/01/2024 6:10 PM [facility] 02-24-2024 Telephone encounter Note Anesthesia consent obtained and scanned into EPIC. Scheduled for surgery 03/02/2024. [facility] 02-24-2024 Miscellaneous Notes Anesthesia consent obtained and scanned into EPIC. Scheduled for surgery 03/02/2024. documented in this encounter [facility] 02-21-2024 Telephone encounter Note Anesthesia consent obtained and scanned into EPIC. Scheduled for surgery 03/02/2024. [facility] 02-21-2024 Miscellaneous Notes Anesthesia consent obtained and scanned into EPIC. Scheduled for surgery 03/02/2024. documented in this encounter [facility] 02-19-2024 Instructions Kelly Cabello RN [...] otherwise contacted. ? Expect a call from [facility] one business day prior to surgery for [...] your Preparing for Your Surgery/Procedure booklet or [email or web address] if you have questions. Contact the Pre-Admission Testing department at [phone] or your surgeon's office with any questions [...] stay with you after surgery. Please call [facility] Social Work if you need transportation assistance or have concerns about going home [phone]. ? PLEASE BE ON TIME. A late arrival may result in the cancellation/ delay of your surgery. Thank you for choosing [facility]; it is our pleasure to care for you documented in this encounter [facility] 02-19-2024 Evaluation note Telephone History Chantel Sonu, [id number] 02/19/2024 Patient was identified by name and date of via [place], caregiver. Needs: Physical, Neck Circumference, BHCG, and ED on DOS. Note: OSH records/labs scanned to [employer]. If the patient becomes ill prior to procedure or surgery, they are to call their provider or surgeon's office directly. 29 year old 136.6 lbs 5' 4 Date of Surgery: 03/02 Surgeon: Yoselyn Type of Surgery: DENTAL RESTORATIONS HISTORY OF PRESENT ILLNESS: telephone history for the upcoming surgery at [facility], [address] [place], enter through the [facility] doors. STOP-BANG Row Name 02/19/24 9510 History of sleep apnea? Yes NO PSG [...] (+) teeth problems missing Endo (+) hypothyroidism conformal pad former - negative ROS Neuro/Psych (+) bipolar disorder, seizures, intellectual disability Cardiovascular - negative ROS GI/Hepatic/Renal (+) GERD Heme/Other - negative ROS PAST SURGICAL HISTORY: Past Surgical History: Procedure Laterality Date EUA, ORAL 09/15/2014 Procedure: EUA, ORAL; Surgeon: Bradley Goodwin DDS; Location: PERIOPERATIVE SERVICES; Service: Oral EXTRACTION, TOOTH Bilateral 09/15/2014 Procedure: [place] teeth; Surgeon: Bradley Goodwin DDS; Location: PERIOPERATIVE [...] Take by mouth. Fluticasone Propionate (FLONASE NASAL) Coffey into each nostril. Selenium (SELENIMIN ORAL) Take [...] otherwise contacted. ? Expect a call from [facility] one business day prior to surgery for [...] your Preparing for Your Surgery/Procedure booklet or [email or web address] if you have questions. Contact the Pre-Admission Testing department at [phone] or your surgeon's office with any questions [...] stay with you after surgery. Please call [facility] Social Work if you need transportation assistance or have concerns about going home [phone]. ? PLEASE BE ON TIME. A late arrival may result in the cancellation/ delay of your surgery. Thank you for choosing [facility]; it is our pleasure to care for you Kelly Cabello RN Time Spent Performing this Telephone History: 48 with follow-up [facility]: [facility] 02-19-2024 Miscellaneous Notes Telephone History Chantel Ascencio, [id number] 02/19/2024 Patient was identified by name and [...] telephone history for the upcoming surgery at [facility], [address] [place], enter through the [facility] doors. STOP-BANG Row Name 02/19/24 1154 [...] (+) teeth problems missing Endo (+) hypothyroidism conformal pad former - negative ROS Neuro/Psych (+) bipolar disorder, seizures, intellectual disability Cardiovascular - negative ROS GI/Hepatic/Renal (+) GERD Heme/Other - negative ROS PAST SURGICAL HISTORY: Past Surgical History: Procedure Laterality Date EUA, ORAL 09/15/2014 Procedure: EUA, ORAL; Surgeon: Bradley Goodwin DDS; Location: PERIOPERATIVE SERVICES; Service: Oral EXTRACTION, TOOTH Bilateral 09/15/2014 Procedure: [place] teeth; Surgeon: Bradley Goodwin DDS; Location: PERIOPERATIVE [...] Take by mouth. Fluticasone Propionate (FLONASE NASAL) Coffey into each nostril. Selenium (SELENIMIN ORAL) Take [...] otherwise contacted. ? Expect a call from [facility] one business day prior to surgery for [...] for Your Surgery/Procedure booklet or [email or web address] if you have questions. Contact the Pre-Admission Testing department at [phone] or your surgeon's office with any questions [...] stay with you after surgery. Please call [facility] Social Work if you need transportation assistance or have concerns about going home [phone]. ? PLEASE BE ON TIME. A late arrival may result in the cancellation/ delay of your surgery. Thank you for choosing [facility]; it is our pleasure to care for you Kelly Cabello RN Time Spent Performing this Telephone History: 48 with follow-up [facility]: documented in this encounter [facility] 02-19-2024 Miscellaneous Notes Telephone History Chantel Ascencio, [id number] 02/19/2024 Patient was identified by name and date of via Ivon, caregiver. Needs: Physical, Neck Circumference, BHCG, and ED on DOS. Note: OSH records/labs scanned to media executive. If the patient becomes ill prior to procedure or surgery, they are to call their provider or surgeon's office directly. 29 year old 136.6 lbs 5' 4 Date of Surgery: 03/02 Surgeon: Yoselyn Type of Surgery: DENTAL RESTORATIONS HISTORY OF PRESENT ILLNESS: telephone history for the upcoming surgery at [facility], [address] [place], enter through the [facility] entrance doors. STOP-BANG Row Name 02/19/24 1154 [...] (+) teeth problems missing Endo (+) hypothyroidism conformal pad former - negative ROS Neuro/Psych (+) bipolar disorder, seizures, intellectual disability Cardiovascular - negative ROS GI/Hepatic/Renal (+) GERD Heme/Other - negative ROS PAST SURGICAL HISTORY: Past Surgical History: Procedure Laterality Date EUA, ORAL 09/15/2014 Procedure: EUA, ORAL; Surgeon: Bradley Goodwin DDS; Location: PERIOPERATIVE SERVICES; Service: Oral EXTRACTION, TOOTH Bilateral 09/15/2014 Procedure: [place] teeth; Surgeon: Bradley Goodwin DDS; Location: PERIOPERATIVE [...] Take by mouth. Fluticasone Propionate (FLONASE NASAL) [place] into each nostril. Selenium (SELENIMIN ORAL) Take [...] otherwise contacted. ? Expect a call from [employer] one business day prior to surgery for [...] your Preparing for Your Surgery/Procedure booklet or [email or web address] if you have questions. Contact the Pre-Admission Testing department at [phone] or your surgeon's office with any questions [...] stay with you after surgery. Please call [facility] Social Work if you need transportation assistance or have concerns about going home [phone]. ? PLEASE BE ON TIME. A late arrival may result in the cancellation/ delay of your surgery. Thank you for choosing [facility]; it is our pleasure to care for you Kelly Cabello RN Time Spent Performing this Telephone History: 48 with follow-up [facility]: documented in this encounter [facility] 10-21-2023 History and physical note Images from the original note were not included. Surgical History and Physical [facility] [address] [facility] [address] Name: Chantel Ascencio : 1995 29 year old CSN: [id number] Attending: Elmer Topete DDS Date of Admission: 03/02/2024 8:38 AM Room/Bed: [facility] OR/NONE Planned Procedure: Procedure(s): DENTAL RESTORATIONS [...] surgical history indicates: EXTRACTION, TOOTH (09/15/2014) Procedure: [place] teeth; Surgeon: Bradley Goodwin DDS; Location: PERIOPERATIVE [...] or any previous visit (from the past 95837 hours). BMP (last 3 years, up to [...] 11:48 AM EST documented in this encounter [facility] 04-30-2022 Miscellaneous Notes Bina from [facility] calling in. She wanted to know where the pt was at on the OR wait list. E-mail sent to Connie E-mail sent 04/30/22 documented in this encounter [facility] 04-30-2022 Telephone encounter Note Bina from [facility] calling in. She wanted to know where the pt was at on the OR wait list. E-mail sent to Connie E-mail sent 04/30/22 [facility] History of Present illness Narrative ----- Saturday, March 13, 2022 at 11:58:40 AM ----- ----- Provider: [id number] Coreas DMD -- Clinic: [facility] ----- OR [...] available. Legal Guardian: Toshia Ascencio Phone #: [phone] NOTE: Patient had a hard time leaning her head back, but allowed me to look. Patient not indicating she is in any pain. #8 is very discolored - most likely will need RCT treatment. Gingiva very red and irritated. Caregiver did not know who patient's guardian was or contact information, looked it up in [employer]. Next Visit: OR documented in this encounter [facility] Evaluation note Diagnosis Caries- Primary Unspecified dental caries [facility] Diagnosis Caries- Primary Unspecified dental caries Caries- Primary Unspecified dental caries [facility] Diagnosis Seizure disorder (CMS/HCC)- Primary Unspecified epilepsy without mention of intractable epilepsy Mental deficiency ([facility]) Unspecified mental retardation Autism ([facility]) Autistic disorder, current or active [...] [facility] Seizure disorder ([facility])- Primary Unspecified epilepsy without mention of intractable epilepsy Autism ([facility]) Autistic disorder, current or active state Developmental delay Unspecified delay in development Gait instability Abnormality of gait [facility] Diagnosis Onychomycosis- Primary Dermatophytosis of nail Pain in right toe(s) Pain in left toe(s) [facility] Diagnosis Seizure disorder ([facility]/HCC)- Primary Unspecified epilepsy without mention of [...] DENTOALVEOLAR STRUCTURES DENTAL RESTORATIONS Elmer Topete, DDS [address] [place] [address] Phone: tel: fax: THE [employer] ([employer] [place] [address] Phone: tel: Referral ID Status Reason Start Date Expiration Date Visits Re quested Visits Authorized [id number] 3 3 [facility] Summary Purpose Family History No [...] Caries Elmer Topete, DDS [address] [place] [address] [facility] PRE ADMISSION TESTING [address] [id number] Referral ID Status Reason Start Date Expiration Date V isits Requested Visits Authorized [id number] Authorized 12/27/2023 12/26/2024 1 1 Scheduling Instructions Your surgical team will reach out to you to schedule a pre-admission testing appointment. Question Answer Reason for consult? Recommended PAT Risk Score Additional Source Comments INFORMATION SOURCE (unrecogn ized section and content) DATE CREATED AUTHOR 10/16/2017 [facility] DATE CREATED AUTHOR AUTHOR'S ORGANIZ ATION 09/02/2022 [facility] DATE CREATED AUTHOR AUTHOR'S ORGANIZ ATION 01/11/2023 [facility] DATE CREATED AUTHOR AUTHOR'S ORGANIZ ATION 03/10/2024 [email or web address] DATE CREATED AUTHOR AUTHOR'S ORGANIZ ATION 10/06/[address] [facility] DATE CREATED AUTHOR AUTHOR'S ORGANIZ ATION 11/27/2024 [facility] dical Specialists EPIC Reason for Visit (unrecogniz ed section and content) Reason Onset Date Comments Dental 04/30/2022 Reason Comments Seizures Reason Onset Date Comments PAT 02/21/2024 Anesthesia conse nt obtained Reason Onset Date Comments PAT 02/24/2024 Anesthesia conse nt obtained Reason Onset Date Comments Pre-surgical Evaluation 02/26/2024 DD adult dental restorations 03/02 under [place] at [place]. PAT completed - anesthesia consent. PAT RN spoke to Mary (nurse), confirmed NPO, [place] address, and 0900 arrival time Reason Comments Toenail Problem RT grt nail fungal Reason Comments Toenail Care Non DM nail care Care Teams (unrecognized sec tion and content) Health Information Administrator Relationship Specialty Start Date End Date Unallocated, May Schneider MD [address] [place] [address] PCP - General Family Medicine 07/09/23 Kris Mcguire MD [address] [phone] Referring Physician Neurology 07/09/23 Health Information Administrator Relationship Specialty Start Date End Date Unallocated, May Schneider MD [address] [place], [place] [address] [place] [address] PCP - General Family Medicine 07/09/23 Kris Mcguire MD [address] [phone] Referring Physician Neurology 07/09/23 Health Information Administrator Relationship Specialty Start Date End Date Nathan Tilley MD [facility] [address] [place] [address] PCP - General Family Medicine 03/10/24 Kris Mcguire MD [address] [phone] Referring Physician Neurology 07/09/23 Health Information Administrator Relationship Specialty Start Date End Date Nathan Tilley MD [facility] [address] [place] [address] PCP - General Family Medicine 03/10/24 Kris Mcguire MD [address] [phone] Referring Physician Neurology 07/09/23 Health Information Administrator Relationship Specialty Start Date End Date Nathan Tilley MD [address] [place] [address] PCP - General Family Medicine 03/10/24 Kris Mcguire MD [address] [place] [address] Referring Physician Neurology 07/09/23 Health Information Administrator Relationship Specialty Start Date End Date Nathan Tilley MD [facility] [address] [place] [address] PCP - General Family Medicine 03/10/24 Kris Mcguire MD [address] [place] [address] Referring Physician Neurology 07/09/23 Health Information Administrator Relationship Specialty Start Date End Date Nathan Tilley MD [facility] [address] [place] [address] PCP - General Family Medicine 03/10/24 Kris Mcguire MD [address] [place] [address] Referring Physician Neurology 07/09/23 Health Information Administrator Relationship Specialty Start Date End Date Nathan Tilley MD [facility] [address] [place] [address] PCP - General Family Medicine 03/10/24 Kris Mcguire MD Referring Physician Neurology 07/09/23 Health Information Administrator Relationship Specialty Start Date End Date Nathan Tilley MD [address] [place] [address] PCP - General Family Medicine 03/10/24 Kris Mcguire MD Referring Physician Neurology 07/09/23 Health Information Administrator Relationship Specialty Start Date End Date Nathan Tilley MD [address] [place] [address] PCP - General [facility] Medicine 03/10/24 Kris Mcguire MD Referring Physician Neurology 07/09/23 Health Information Administrator Relationship Specialty Start Date End Date Nathan Tilley MD [address] [place] [address] PCP - General [facility] Medicine 03/10/24 Kris Mcguire MD Referring [...] BE BASED ON THE PRIMARY CLINICAL RECORDS. [employer] [facility]. provides no warranty or guarantee of the accuracy or completeness of information in this document.
== END 2024-12-15 08:51 | disposition home or self-care (01) ==
LOC: LAB 12-17 08:51
PROVIDERS: PCP Family Medicine; Visit Provider Family Medicine
DX: G40.909 Epilepsy, unspecified, not intractable, without status epilepticus (principal); F42.9 Obsessive-compulsive disorder, unspecified; F31.9 Bipolar disorder, unspecified
CPT/HCPCS: 36415; 80164

== ENCOUNTER 2025-01-13 07:15 | Outpatient (OUT) | payer MEDICARE, MEDICAID, SELFPAY ==
--- OUTSIDE RECORDS SUMMARY | 2025-01-13 07:17 | XMS_ITS | Clinical Summary ---
Author Organization [facility] Address [address] [place] [address] Care Team Providers Care Salesperson [employer] Name Role Phone Unavailable Primary Care Provider Unavailabl e Source Comments The following information is NOT included in Care Everywhere downloads:Psychiatric notes, ECG results, Cardiac Rehab notes, Pulmonary Function notes, data from [employer] (includes but not limited toPregnancy data,audiograms, eye exams, pre-surgical evaluation notes, well-child exam data).[facility] Allergies Active Allergy Reactions Criticality Noted Date Comments Linaclotide 03/02/2024 Ethosuximide Rash 09/15/2014 Medications Lactobacillus (ACIDOPHILUS) CAPS Take by mouth. Active CLONIDINE HCL ORAL Take by mouth. Active docusate sodium (COLACE) 100 MG capsule Take 100 mg by mouth 2 times daily. Active Fluticasone Propionate (FLONASE NASAL) [place] into each nostril. Active Selenium (SELENIMIN ORAL) [...] HPV Vaccine (optional start 27-45 years) 01/02/2020 Dental Oral Exam 08/31/2024 03/02/2024 Dental Prophylaxis 08/31/2024 03/02/2024 COVID-19 Vaccine ( - 2024- season) 2024 05/24/2020, 05/03/2020 Influenza Vaccine (#1) 2024 Dental X-Ray: Bitewings 03/03/2025 03/02/2024 Shingles (RZV) Vaccine (1 of 2) 2043 Mammography Discontinued Pneumococcal Vaccine(s) Aged Out No l onger eligible based on patient's age to complete this topic Procedures Procedure Name Priority Date/Time Associated Diagnosis Comments PROPHYLAXIS - ADULT Routine 03/02/2024 1 2:00 AM EST COMPREHENSVE ORAL EVALUATION Routine 03/02/2024 12:00 AM EST from Last 3 Months or Most Recently Relevant to Health Maintenance Insurance MEDICAID MEDICARE DENTAL-MEDICAID DENTAL-MEDICAID
--- OUTSIDE RECORDS SUMMARY | 2025-01-13 07:17 | XMS_ITS | Clinical Summary ---
Author Organization [facility] Address [address] [place], [place] [id number] Care Team Providers Care Enterprise Account Manager Name Role Phone Nathan Iyer DO Primary [...] [place] [address] [place] Care Teams Enterprise Account Manager Relationship Specialty Start Date End Date Nathan Iyer DO PCP - General Family Medicine 09/03/12
--- OUTSIDE RECORDS SUMMARY | 2025-01-13 07:17 | XMS_ITS | Encounter Summary ---
Author Organization [facility] Address [address] [id number] Care Team Providers Care Foot Tender Name Role Phone Unavailable Primary Care Provider Unavailabl e Encounter Details Date Type Department Care Team (Late st Contact Info) Description 03/02/2024 Abstract [facility] Dentistry [address] [place] [address] Paula Contreras DDS [address] [id number] Social History Tobacco Use Types Packs/Day Years [...] as of this encounter Plan of Treatment Not on file documented as of this encounter Procedures Procedure Name Priority Date/Time Associated Diagnosis Comments 16 EXTRACTION ERUPTED TOOTH/EXR Routine 03/02/2024 12:00 AM EST 32 EXTRACTION ERUPTED TOOTH/EXR Routine 03/02/2024 12:00 AM EST 1 EXTRACTION ERUPTED TOOTH/EXR Routine 03/02/2024 12:00 AM EST 17 EXTRACTION ERUPTED TOOTH/EXR Routine 03/02/2024 12:00 AM EST 7 ML RESIN - TWO SURFACES, ANTERIOR Routine 03/02/2024 12:00 AM EST 30 LO AMALGAM TWO SURFACES PERMANE Routine 03/02/2024 12:00 AM EST 15 O AMALGAM ONE SURFACE PERMANEN Routine 03/02/2024 12:00 AM EST 29 O AMALGAM ONE SURFACE PERMANEN Routine 03/02/2024 12:00 AM EST 18 O AMALGAM ONE SURFACE PERMANEN Routine 03/02/2024 12:00 AM EST 31 O AMALGAM ONE SURFACE PERMANEN Routine 03/02/2024 12:00 AM EST PROPHYLAXIS - ADULT Routine 03/02/2024 1 2:00 AM EST COMPREHENSVE ORAL EVALUATION Routine 03/02/2024 12:00 AM EST documented in this encounter Visit Diagnoses Not on filedocumented in this encounter
--- OUTSIDE RECORDS SUMMARY | 2025-01-13 07:17 | XMS_ITS | Clinical Summary ---
Author Organization [facility] Address [address] [place] [address] Care Team Providers Care Director Of Product Marketing Name Role Phone Pete Mcguire MD Unavailable [...] problems in the past month noted by [place], increased tone in her extremities, dizziness when looking upwards which has been contributing to falls. She has had dizziness in the past, as noted above. She had an unwitnessed fall without reported loss of consciousness. She was evaluated recently after the fall at [facility] and had a Head CT, which revealed no acute process. There was left supraorbital soft tissue laceration. Blood work 11/23/2022 revealed Lamictal 12.4, valproic acid 85. Carotid ultraound was very limited due to patient cooperation, no hemodynamic significant stenosis noted. For MRI or CTA she would require sedation per [place]. Her balance is stable and there have [...] Description 11/27/2024 Abstract [facility] [address] [facility] [place] [address] Lai Alston, DPM FACFAS 11/24/2024 9:30 AM EDT Procedure Visit [facility] [address] [place] [address] Lai Alston, DPM FACFAS Onychomycosis (Primary Dx); Pain in right toe(s); Pain in left toe(s) 11/24/2024 Bamboo flowsheet [facility] [address] [place] [id number] Lai Alston, DPM FACFAS from Last 3 [...] EST Procedure Visit [facility] [address] [place] [address] Lai Alston, MAURA FACFAS [address] [facility] [place] [address] Health Maintenance Due Date Last Done Comments Pap Smear 2014 Cervical Cancer Screening 2023 HPV/Cotest 2023 Influenza Vaccine (#1) [address] [place] [address] MEDICARE [place]ICA[place] Care Teams Director Of Product Marketing Relationship Specialty Start Date End Date Nathan Iyer MD [facility] [address] [place] [address] PCP - General Family Medicine 03/10/24 Pete Mcguire MD Referring Physician Neurology 07/09/23
--- OUTSIDE RECORDS SUMMARY | 2025-01-13 07:17 | XMS_ITS | Clinical Summary ---
Author Organization [facility] Address [id number] [address] [place] [address] Care Team Providers Care Speech Instructor Name Role Phone Nathan Iyer DO Primary Care Provider [phone] Allergies Active Allergy Reactions Criticality Noted Date Comments Linaclotide Nausea And Vomiting 12/24/2024 Ethosuximide Rash Low 09/15/2014 Medications cloNIDine (CATAPRES) 0.2 mg tablet Take 1 tablet (0.2 mg total) by mouth in the morning and 1 tablet (0.2 mg total) at noon and 1 tablet (0.2 mg total) before bedtime. Active divalproex (DEPAKOTE) 125 mg EC tablet Take 1 tablet (125 mg total) by mouth in the morning and 1 tablet (125 mg total) at noon and 1 tablet (125 mg total) in the evening and 1 tablet (125 mg total) before bedtime. Active docusate sodium (COLACE) 100 mg capsule Take 1 capsule (100 mg total) by mouth in the morning and 1 capsule (100 mg total) at noon and 1 capsule (100 mg total) before bedtime. Active guanFACINE (TENEX) 1 mg tablet Take 2 mg by mouth nightly. Active guanFACINE (TENEX) 2 mg tablet Take 1 tablet (2 mg total) by mouth every morning before breakfast. Active diphenhydrAMINE (SOMINEX) 25 mg tablet Take 25 mg by mouth nightly as needed for sleep. Active ibuprofen (ADVIL,MOTRIN) 600 mg tablet Take 1 tablet (600 mg total) by mouth every 6 (six) hours as needed for pain. Active guaiFENesin (MUCINEX) 600 mg tablet extended release 12hr Take 1 tablet (600 mg total) by mouth every 12 (twelve) hours as needed. Active ondansetron (ZOFRAN) 4 mg tablet Take 1 tablet (4 mg total) by mouth every 8 (eight) hours as needed for nausea or vomiting. Active sennosides (sennosides) 8.8 mg/5 mL syrup Take 8.6 mg by mouth 2 (two) times a day as needed. Active triamcinolone (KENALOG) 0.1 % lotion Apply 1 application topically daily as needed. Active levothyroxine (SYNTHROID, LEVOTHROID) 100 MCG tablet Take 1 tablet (100 mcg total) by mouth in the morning. Active ammonium lactate (AMLACTIN) 12 % cream [...] Active acetaminophen (TYLENOL) 325 mg tablet Take 2 tablets (650 mg total) by mouth. Active bisacodyl (BISCOLAX) 10 mg suppository Insert 1 suppository (10 mg total) into the rectum as needed for constipation. Active diphenhydrAMINE (COMPLETE ALLERGY) 25 mg capsule Take 25 mg by mouth every 6 (six) hours as needed for itching. Active guaiFENesin (ROBITUSSIN) 100 mg/5 mL syrup Take by mouth every 4 (four) hours as needed for cough. Active busPIRone (BUSPAR) 10 mg tablet 1 tablet (10 mg total) in the morning and 1 tablet (10 mg total) at noon and 1 tablet (10 mg total) before bedtime. 8 Active lansoprazole (PREVACID) 30 mg capsule [...] topically 2 (two) times a day. Active polyethylene glycol (GLYCOLAX) 17 gram packet Take 17 g by mouth in the morning. Active famotidine (PEPCID) 40 mg tablet Take 1 tablet (40 mg total) by mouth in the morning. Active mupirocin (BACTROBAN) 2 % ointment Apply 1 Application topically 3 (three) times a day. Active paliperidone (INVEGA) 3 mg 24 hr tablet Take 1 tablet (3 mg total) by mouth every morning. Active QUEtiapine (SEROquel) 400 mg tablet Take 1 tablet (400 mg total) by mouth nightly. Active azelastine (ASTELIN) 137 mcg (0.1 %) nasal sprayIndication s:Nasal congestion Administer 2 sprays into each nostril in the morning and 2 sprays before bedtime. Use in each nostril as directed. 30 mL 5 5 Active mometasone (NASONEX) 50 mcg/actuation nasal sprayIndication s:Nasal congestion Administer 2 sprays into each nostril in the morning. 17 g 5 5 Active fluticasone (FLONASE) 50 mcg/actuation nasal spray Administer 1 spray into each nostril daily. 025 Discontin ued(Alter dave therapy) Active Problems Problem Noted Date Diagnosed Date Nasal congestion 12/24/2024 Recurrent sinusitis 12/24/2024 Dizziness 07/03/2018 Thickening of wall of gallbladder 09/03/2017 Developmental delay 09/03/2017 Vomiting 09/03/2017 Dysphagia 09/03/2017 Autism 09/03/2017 Thyroid nodule 09/03/2017 Hypothyroidism 09/03/2017 History of seizure 09/03/2017 Anxiety disorder 09/03/2017 Resolved Problems Problem Noted Date Diagnosed Date Resolved Date Biliary dyskinesia 06/24/2018 0 Chronic cholecystitis 06/24/20182019 Weight loss 09/03/2017 07/01/2019 Encounters Date Type Department Care Team Description 12/24/2024 10:15 AM EDT Office Visit [facility] [address] [facility] [place] [address] Lyn Monroy PA-C Recurrent sinusitis (Primary Dx); Recurrent sinus infections; Nasal congestion 12/24/2024 Travel from Last 3 Months Family History Medical History Relation Name Comments [...] Care Team (Late st Contact Info) Description 02/24/2025 9:30 AM EST Office Visit [facility] Department of [facility] [address] [facility] [address] [place] [address] Shanna Del Valle MD [address] [facility] [place] [address] 03/16/2025 12:45 PM EST Office Visit [facility] [address] [facility] [address] [place] [address] Lyn Monroy, PA-C [address] [address] Health Maintenance Due Date Last Done Comments Depression Screening 2005 Tobacco Screening 2005 Adult BMI Screening 2011 Pap Smear 2014 DTaP,Tdap and Td Vaccines (3 - Td or Tdap) 06/10/2021 06/10/2011, 11/02/2005 Influenza Vaccine 12/21/2024 COVID-19 Vaccine Completed 02/06/2024, , 05/24/2020, Additional history exists Medical Devices Not on file [place] Advance Directives Documents on File Type Date Recorded Patient Materials Scheduler Expl anation Living Will 09/03/2017 4:36 PM LEGAL [place]URA DIANSHIP/AGREEMENT FOR CARE [facility] Care Teams Speech Instructor Relationship Specialty Start Date End Date Nathan Iyer DO [address] [place] [address] PCP - General Family Medicine 5/4/18
--- OUTSIDE RECORDS SUMMARY | 2025-01-13 07:17 | XMS_ITS | Encounter Summary ---
Author Organization [facility] Address [address] [place] [address] Care Team Providers Care Manager Steel Name Role Phone Pete Mcguire MD Unavailable [phone] Nathan Iyer MD Primary Care Provider [phone] Encounter Details Date Type Department Care Team (Late st Contact Info) Description 11/27/2024 Abstract [facility] [address] [place] [id number] Lai Alston, DPM FACFAS [address] [place] [address] Social History Tobacco Use Types [...] EST Procedure Visit [facility] [address] [place] [address] Lai Alston, DPM FACFAS [address] [place] [address] documented as of this encounter Visit Diagnoses Not on filedocumented in this encounter Care Teams Manager Steel Relationship Specialty Start Date End Date Nathan Iyer MD [facility] [address] [place] [address] PCP - General Family Medicine 03/10/24 Pete Mcguire MD Referring Physician Neurology 07/09/23 documented as of this encounter
--- OUTSIDE RECORDS SUMMARY | 2025-01-13 07:18 | XMS_ITS | CCD ---
Author Organization [facility] Care Team Providers Care Dry Cleaning Attendant Name Role Phone PHYSICIAN, DEFAULT Unavailable [...] Unavailable TILLEY, NATHAN Attending Unavailable TILLEY, NATHAN Admitting Unavailable Unavailable Primary Care Provider Unavailabl e Unallocated May OLSON Provider Primary Care Provi roselyn Kris Mcguire MD Unavailable Unallocated May OLSON Provider Primary Care Provi roselyn ELMER TOPETE Attending Unavailable PROVIDER, UNKNOWN Admitting Unavailable PROVIDER, UNKNOWN Admitting Unavailable PROVIDER, UNKNOWN Attending Unavailable ELMER TOPETE Admitting Unavailable ELMER TOPETE Attending Unavailable Tilley Nathan OLSON Primary Care Provider Maynor OLSON, Kris Unavailable [phone] Maynor OLSON, Kris Unavailable EDUARDA PRUITT Attending Unavailable DOLCE, LAI Valentine Attending Unavailable LOWE, EDUARDA Attending Unavailable DOLCE, LAI Valentine Attending Unavailable DOLCE, LAI Valentine Attending Unavailable HILL, RADHA Attending Unavailable DOLCE, LAI Valnetine Attending Unavailable Tilley Nathan RENEE Primary Care Provider PHILIP VICTOR Attending Unavailable TILLEYNATHAN Referring Unavailable TILLEYNATHAN Primary Care Unavailable Tilley Nathan RENEE Primary Care Provider [phone] Jadiel VIDEO GAMES MECHANIC-PATIENT SERVICE TECHNICIAN PST-CKenisha Attending Provider Kenisha Duvall Attending Unavailable TilleyNathan Primary Care Unavailable Kenisha Duvall Admitting Unavailable Tilley, Nathan Craft Primary Care Unavailable Lowe, Eduarda Admitting Unavailable Lowe, Eduarda Attending Unavailable DuvallKenisha Admitting Unavailable DuvallKenisha chavira Attending Unavailable TilleyNathan Primary Care Unavailable Allergies Allergy Classification Reported Allergen(s) Allergy Type Date of Onset Reaction(s) Facility (20 sources) Ethosuximide; Translations: [ETHOSUXIMIDE] Drug Allergy 5 [facility] (1 source) Allopurinol Drug Allergy 4 [facility] (1 source) Ethosuximide Drug Allergy 4 [facility] (20 sources) linaclotide; Translations: [LINACLOTIDE] Drug Allergy 4 Unknown Reaction [facility] (1 source) Ethosuximide Drug Allergy 5 Rash [facility] (1 source) linaclotide Drug Allergy 5 Nausea And Vomiting [facility] (1 source) Ethosuximide Drug Allergy [address] [place] [address] Repository (1 source) linaclotide Drug Allergy [address] [place] [address] Repository Medications Current Medications Medication Drug Class(es) Dates Sig (Normalized) Sig (Original) acetaminophen 325 mg oral capsule (10 sources) Start: 12-28-2024 take 2 capsules by mouth every four to six hours as needed for pain Acetaminophen 325 mg capsule Active 650 MG PO EVERY 4-6 HOURS as needed for fever or pain December 28, 2024 12:00am Complies with drug therapy acetaminophen (T YLENOL) 325 mg tablet Take 2 tablets (650 mg total) by mouth. Active Acetaminophen (T ylenol) 325 MG CAPS Take by mouth. Active Acetaminophen / guaiFENesin (2 sources) Start: 12-28-2024 take 1 tablet by mouth twice daily Acetaminophen-Guaifenesin 325-200 mg tablet Active 1 TAB PO Twice daily December 28, 2024 12:00am Complies with drug therapy Start: 12-28-2024 take 1 tablet by mouth twice d aily azelastine hydrochloride 0.137 mg/actuat metered dose nasal spray (1 source) Histamine-1 Receptor Antagonist Start: 12-24-2024 take 2 spray(s) nasal route in the morning azelastine (ASTELIN) 137 mcg (0.1 %) nasal spray Indications: Nasal congestion Administer 2 sprays into each nostril in the morning and 2 sprays before bedtime. Use in each nostril as directed. 30 mL 5 12/24/2024 Active bacitracin 0.5 unt/mg topical ointment (1 source) bacitracin 500 unit/gram ointment Apply 1 application topically 2 (two) times a day. Active bisacodyl 10 mg rectal suppository (3 sources) Stimulant Laxative Start: 12-28-2024 Bisacodyl (Dulcolax (Bisacodyl)) 10 mg suppository Active 10 MG AR Daily as needed for constipation December 28, 2024 12:00am Complies with drug therapy bisacodyl (BISCO LAX) 10 mg suppository Insert 1 suppository (10 mg total) into the rectum as needed for constipation. Active busPIRone hydrochloride 30 mg oral tablet (20 sources) Start: 12-28-2024 take 1 tablet by mouth three times daily Buspirone 30 mg tablet Active 30 MG PO Three times daily December 28, 2024 12:00am Complies with drug therapy Start: 12-19-2017 busPIRone (BUS PAR) 10 mg tablet 1 tablet (10 mg total) in the morning and 1 tablet (10 mg total) at noon and 1 tablet (10 mg total) before bedtime. 12/19/2017 Active take 1 tablet by luly th in the morning, then take 1 tablet [...] times daily. 1 Bottle 0 09/15/2014 Active 12 hr cloNIDine hydrochloride 0.1 mg extended release oral tablet (20 sources) Central alpha-2 Adrenergic Agonist Start: 12-28-2024 take 1 tablet by mouth three times daily Clonidine Hcl 0.2 mg tablet Active 0.2 MG PO Three times daily December 28, 2024 12:00am Complies with drug therapy Start: 12-28-2024 take 1 tablet by luly th twice daily Clonidine Hcl 0.1 mg tablet extended release 12 hr Active 0.1 MG PO Twice daily December 28, 2024 12:00am Complies with drug therapy cloNIDine (CATAP RES) 0.2 mg tablet Take 1 tablet (0.2 mg total) by mouth in the morning and 1 tablet (0.2 mg total) at noon and 1 tablet (0.2 mg total) before bedtime. Active CLONIDINE HCL OR AL Take by mouth. Suspended CLONIDINE HCL OR AL Take by mouth. Active CLONIDINE HCL OR AL Take by mouth. 0 Active cyanocobalamin, vitamin B-12, (VITAMIN B-12 ORAL) (1 source) cyanocobalamin, vitamin B-12, (VITAMIN B-12 ORAL) Take 1,500 mcg by mouth. Active cyproheptadine hydrochloride 4 mg oral tablet (2 sources) Start: 12-29-19 take 1 tablet by mouth once daily at bedtime Cyproheptadine 4 mg tablet Active 4 MG PO Daily at bedtime December 28, 2024 12:00am Complies with drug therapy diazePAM 5 mg oral tablet (5 sources) Benzodiazepine Start: 08-12-19 diazePAM (Valium) 5 MG tablet Indications: Gait instability , Developmental delay , Seizure disorder (HCC) Take 1 tablet (5 mg) by mouth 1 time for 1 dose 30 minutes prior to MRI 1 tablet 08/11/2024 Active Start: 08-06-2017 diazePAM (LEIDA UM) 5 mg tablet 08/06/2017 Active diphenhydrAMINE hydrochloride 25 mg oral tablet (2 sources) Histamine-1 Receptor Antagonist take 1 tablet by mouth once daily as needed for sleep diphenhydrAMINE (SOMINEX) 25 mg tablet Take 25 mg by mouth nightly as needed for sleep. Active take 1 capsule by mo [facility] every six hours as needed diphenhydrAMINE (COMPLETE ALLERGY) 25 mg capsule Take 25 mg by mouth every 6 (six) hours as needed for itching. Active docusate sodium 100 mg oral capsule (13 sources) docusate sodium (COLACE) 100 mg capsule Take 1 capsule (100 mg total) by mouth in the morning and 1 capsule (100 mg total) at noon and 1 capsule (100 mg total) before bedtime. Active Norethindrone-Ethin Estradiol (20 sources) Estrogen Start: 12-28-2024 take [id number] 7 ug by mouth once daily Norethindrone-Ethin Estradiol (Nortrel 1/35 (21)) 1-35 mg-mcg (21) tablet Active 1 TAB PO Daily December 28, 2024 12:00am Complies with drug therapy Start: 12-28-2024 take [id number] 2857 ug by mouth once daily Start: 10-07-2017 NORTREL 1/35, 28, 1-35 mg-mcg per tablet 10/07/2017 Active norethindrone-et hinyl estradiol (Ortho-Novum, Nortrel) 1-35 MG-MCG tablet Take 1 tablet by mouth Daily Active famotidine 40 mg oral tablet (20 sources) Histamine-2 Receptor Antagonist Start: 12-28-2024 take 1 tablet by mouth once daily Famotidine 40 mg tablet Active 40 MG PO Daily December 28, 2024 12:00am Complies with drug therapy take 1 tablet by mouth in the mo rning famotidine (PEPCID) 40 mg tablet Take 1 tablet (40 mg total) by mouth in the morning. Active guaiFENesin 20 mg/ml oral solution (4 sources) Start: 12-28-2024 take 200 mg by mouth every four hours as needed for cough Guaifenesin (Adult Tussin Chest Congestion) 100 mg/5 mL liquid Active 200 MG PO Every 4 hours as needed for cough December 28, 2024 12:00am Complies with drug therapy guaiFENesin (MARGIE ITUSSIN) 100 mg/5 mL syrup Take by mouth every 4 (four) hours as needed for cough. Active take 1 tablet by luly th every twelve hours as needed guaiFENesin (MUCINEX) 600 mg tablet exte nded release 12hr Take 1 tablet (600 mg total) by mouth every 12 (twelve) hours as needed. Active guanFACINE 2 mg oral tablet (20 sources) Central alpha-2 Adrenergic Agonist Start: 12-28-2024 take 1 tablet by mouth twice daily Guanfacine 2 mg tablet Active 2 MG PO Twice daily December 28, 2024 12:00am Complies with drug therapy take 2 tablets by mouth once sachin ly guanFACINE (TENEX) 1 mg tablet Take 2 mg by mouth nightly. Active take 1 tablet by luly th once daily before breakfast guanFACINE (TENEX) 2 mg tablet Take 1 tablet (2 mg total) by mouth every morning before breakfast. Active GUANFACINE HCL O RAL Take by mouth. Suspended GUANFACINE HCL O RAL Take by mouth. Active ibuprofen 600 mg oral tablet (15 sources) Nonsteroidal Anti-inflammatory Drug Start: 12-28-2024 Ibuprofen (Ibu) 6 00 mg tablet Active 600 MG PO every 6 to 8 hours as needed for pain December 28, 2024 12:00am Complies with drug therapy Start: 09-15-2014 take 1 tablet by luly th every six hours as needed for pain ibuprofen (MOTRIN) 600 MG tablet Take 1 Tab by mouth every 6 hours as needed for Pain. 30 Tab 1 09/15/2014 Active ammonium lactate 120 mg/ml topical cream (17 sources) Start: 07-08-2017 ammonium lacta te (AMLACTIN) 12 % cream 07/08/2017 Active ammonium lactate (Amlactin) 12 % cream Apply 2 application topically Daily Active lactobacillus acidophilus 16 mg oral capsule (12 sources) Lactobacillus (ACIDOPHILUS) CAPS Take by mouth. Active lamoTRIgine 100 mg oral tablet (20 sources) Mood Stabilizer, Anti-epileptic Agent Start: take 1 tablet by mouth once daily at bedtime Lamotrigine (Lamictal) 100 mg tablet Active 100 MG PO Daily at bedtime December 28, 2024 12:00am Complies with drug therapy Start: 12-28-2024 take 1 tablet by luly th once daily Lamotrigine (Lamictal) 150 mg tablet Active 150 MG PO Daily December 28, 2024 12:00am Complies with drug therapy Start: 10-10-2017 lamoTRIgine (L aMICtal XR) 300 mg tablet extended release 24hr 10/10/2017 Active take 1 tablet by luly th at bedtime lamoTRIgine (LaMICtal) 100 MG tablet Take 100 mg by mouth at bedtime Active take 1 tablet by luly th in the morning lamoTRIgine (LaMICtal) 150 MG tablet Take 150 mg by mouth in the morning. Active lansoprazole 30 mg delayed release oral capsule (1 source) Proton Pump Inhibitor Start: 01-23-2018 lansoprazole (PREVACID) 30 mg capsule 01/23/2018 Active levothyroxine sodium 0.2 mg oral tablet (20 sources) l-Thyroxine Start: 12-28-2024 take 1 tablet by mouth once daily Levothyroxine (Euthyrox) 200 mcg tablet Active 200 MCG PO Daily December 28, 2024 12:00am Complies with drug therapy take 1 tablet by mouth in the mo rning levothyroxine (SYNTHROID, LEVOTHROID) 100 MCG tablet Take 1 tablet (100 mcg total) by mouth in the morning. Active take 1 tablet by mouth before me altime levothyroxine (Synthroid, Levoxyl) 200 MCG tablet Take [...] (20 sources) take 1 tablet by mouth once daily loratadine (CLARITIN) 10 mg tablet Take 10 mg by mouth daily. Active lubiprostone 0.024 mg oral capsule (1 source) Chloride Channel Activator take 1 capsule by mouth twice daily at mealtime lubiprostone (AMITIZA) 24 MCG capsule Take 24 mcg by mouth 2 (two) times a day with meals. Active melatonin 3 mg oral capsule (20 sources) Start: 5 take 1 capsule by mouth once daily at bedtime Melatonin 3 mg capsule Active 3 MG PO Daily at bedtime December 28, 2024 12:00am Complies with drug therapy take 3 mg by mouth once daily at bedtime MELATONIN ORAL Take 3 mg by mouth once daily at bedtime. Active take 1 tablet by mouth at bedtim e Melatonin 3 MG tablet dispersible Take 3 mg by mouth at bedtime Active minoxidil 50 mg/ml topical spray (1 source) Arteriolar Vasodilator minoxidil (ROGAINE) 5 % solution Apply 1 application topically. Active mometasone furoate 0.05 mg/actuat metered dose nasal spray (1 source) Corticosteroid Start: 5 take 2 spray(s) nasal route in the morning mometasone (NASONEX) 50 mcg/actuation nasal spray Indications: Nasal congestion Administer 2 sprays into each nostril in the morning. 17 g 5 12/24/2024 Active mupirocin 0.02 mg/mg topical ointment (3 sources) RNA Synthetase Inhibitor Antibacterial Start: Mupirocin (Centany) 2 % ointment Active 1 APPLIC TOPICAL Twice daily December 28, 2024 12:00am Complies with drug therapy mupirocin (BACTR OBAN) 2 % ointment Apply 1 Application topically 3 (three) times a day. Active ondansetron 4 mg disintegrating oral tablet (4 sources) Serotonin-3 Receptor Antagonist Start: 12-28-2024 Ondansetron 4 mg tablet,disintegrating Active 4 MG PO every 6 to 8 hours as needed for nausea and vomiting December 28, 2024 12:00am Complies with drug therapy Start: 03-02-2024 End: 03-02-2024 take 4 mg intravenously once as needed for nausea 4 mg, Intravenous Push, PACU ONCE PRN, Starting on 03/02/24 at 0938, Until Sat03/02/24 at 1537, Nausea, Vomiting, PACU Now take 1 tablet by luly th every eight hours as needed for nausea and vomiting ondansetron (ZOFRAN) 4 mg tablet Take 1 tablet (4 mg total) by mouth every 8 (eight) hours as needed for nausea or vomiting. Active 24 hr paliperidone 3 mg extended release oral tablet (20 sources) Atypical Antipsychotic Start: 12-28-2024 take 1 tablet by mouth three times daily Paliperidone (Invega) 3 mg tablet extended release 24hr Active 3 MG PO Three times daily December 28, 2024 12:00am Complies with drug therapy take 1 tablet by luly th once daily in the morning paliperidone (INVEGA) 3 mg 24 hr tablet Take 1 tablet (3 mg total) by mouth every morning. Active take 1 tablet by luly th every twenty-four hours in the morning paliperidone (Invega) 3 MG 24 hr tablet Take 3 mg by mouth in the morning and 3 mg before bedtime. Do not crush, chew, or split.. Active take 2 tablets by mouth once sachin ly paliperidone (INVEGA) 3 MG 24 hour tablet Take 6 mg by mouth daily. Active pantoprazole 40 mg delayed release oral tablet (1 source) Proton Pump Inhibitor Start: 02-27-2018 pantoprazole (PROTONIX) 40 mg EC tablet 02/27/2018 Active polyethylene glycol 3350 36265 mg powder for oral solution (20 sources) Osmotic Laxative Start: 12-28-2024 Polyethylene Glycol 3350 (Clearlax) 17 gram powder in packet Active 17 GM PO Daily December 28, 2024 12:00am Complies with drug therapy polyethylene gly col (GLYCOLAX) 17 gram packet Take 17 g by mouth in the morning. Active QUEtiapine 400 mg oral tablet (20 sources) Atypical Antipsychotic Start: 12-28-2024 take 1 tablet by mouth once daily at bedtime Quetiapine 400 mg tablet Active 400 MG PO Daily at bedtime December 28, 2024 12:00am Complies with drug therapy take 1 tablet by mouth once sandra y QUEtiapine (SEROquel) 400 mg tablet Take 1 tablet (400 mg total) by mouth nightly. Active take 1 tablet by mouth at bedtim e QUEtiapine (SEROquel) 200 MG tablet Take 200 mg by mouth at bedtime Active QUEtiapine Fumar ate (SEROQUEL ORAL) Take by mouth. Suspended QUEtiapine Fumar ate (SEROQUEL ORAL) Take by mouth. Active risperiDONE 1 mg oral tablet (2 sources) Atypical Antipsychotic Start: 10-10-2017 risperi DONE (RisperDAL) 0.5 mg tablet 10/10/2017 Active Start: 10-10-2017 risperiDONE (R isperDAL) 1 mg tablet 10/10/2017 Active Selenium (SELENIMIN ORAL) (12 sources) Selenium (SELENI MIN ORAL) Take by mouth. Suspended Selenium (SELENI MIN ORAL) Take by mouth. Active Selenium (SELENI MIN ORAL) Take by mouth. 0 Active sennosides, halfway 8.6 mg oral tablet (16 sources) Start: 12-28-2024 Sennosides (Bl ack-Draught Lax-Senna) 8.6 mg tablet Active 17.2 MG PO 1 to 2 times per day as needed for constipation December 28, 2024 12:00am Complies with drug therapy take 2 tablets by mouth twice da jose c senna (SENOKOT) 8.6 mg tablet Take 17.2 mg by mouth 2 (two) times a day. Active take 8.6 mg by mouth twice daily as needed sennosides (sennosides) 8.8 mg/5 mL syrup Take 8.6 mg by mouth 2 (two) times a day as needed. Active take 1 tablet by luly th once daily as needed for constipation Sennosides (SENNA) 15 MG tablet Take 1 Tab by mouth daily as needed for Constipation. Active topiramate 25 mg oral tablet (12 sources) take 3 tablets by mouth twice daily topiramate (TOPIRAGEN) 25 MG tablet Take 75 mg by mouth 2 times daily. Active triamcinolone acetonide 1 mg/ml topical lotion (1 source) Corticosteroid triamcinolone (KENALOG) 0.1 % lotion Apply 1 application topically daily as needed. Active trihexyphenidyl hydrochloride 2 mg oral tablet (12 sources) take 1 tablet by mouth three times daily trihexyphenidyl 2 MG tablet Take 2 mg by mouth 3 times daily. Active divalproex sodium 125 mg delayed release oral tablet (20 sources) Mood Stabilizer, Anti-epileptic Agent Start: 025 Divalproex (Depakote) 125 mg tablet,delayed release (DR/EC) Active 1000 MG PO Twice daily December 28, 2024 12:00am Complies with drug therapy Start: 12-28-2024 take 4 tablets by mo uth once daily Divalproex (Depakote) 125 mg tablet,delayed release (DR/EC) Active 500 MG PO Daily December 28, 2024 12:00am Complies with drug therapy Start: 10-10-2017 divalproex spr inkle (DEPAKOTE SPRINKLE) 125 mg capsule 10/10/2017 Active divalproex (DEPA KOTE) 125 mg EC tablet Take 1 tablet (125 mg total) by mouth in the morning and 1 tablet (125 mg total) at noon and 1 tablet (125 mg total) in the evening and 1 tablet (125 mg total) before bedtime. Active divalproex (Depa kote) 125 MG EC tablet Take 1,000 mg by mouth at bedtime Do not crush, chew, or split. Active take 4 tablets by mo ut in the morning, then take 4 tablets by mouth in the evening, then take 4 tablets by mouth at bedtime divalproex (Depakote) 125 MG EC tablet Take 500 mg by mouth in the morning and 500 mg in the evening and 500 mg before bedtime. Active zinc gluconate 50 mg oral ta blet (12 sources) Zinc Gluconate 5 0 MG TABS Take by mouth. Active Completed/Discontinued Medications Medication Drug Class(es) Dates Sig (Normalized) Sig (Original) fluticasone propionate 0.05 mg/actuat metered dose nasal spray (13 sources) Corticosteroid End: 12-24-2024 take 1 spray(s) nasal route once daily fluticasone (FLONASE) 50 mcg/actuation nasal spray Administer 1 spray into each nostril daily. 12/24/2024 Discontinued (Alternate therapy) Fluticasone Prop ionate (FLONASE NASAL) [place] into each nostril. Suspended Fluticasone Prop ionate (FLONASE NASAL) [place] into each nostril. Active Fluticasone Prop ionate (FLONASE NASAL) [place] into each nostril. 0 Active 1 ml naloxone hydrochloride 0.4 mg/ml injection (2 sources) Opioid Antagonist Start: 03-02-2024 0.4 mg, Intr avenous Push, PRN, Starting on Sat03/02/24 at 0937, Until Discontinued, Respiratory Rate Less Than 8 for adults and less than 12 for Peds or for suspected overdose, PACU Now 20 ml sodium chloride 9 mg/ml injection (1 source) Start: 03-02-2024 3 mL, Intraven ous Push, PRN, Starting on Sat03/02/24 at 0937, Until Discontinued, For medication administration and blood draw, PACU Now Problems Active Problems Problem Classification Problem Date Documented Date Episodic/Chronic Anxiety disorders (18 sources) Anxiety disorder; Translations: [Anxiety disorder, unspecified] [...] 07-21-2022 Episodic Other aftercare (5 sources) Other [place] [facility] (current) drug therapy; Translations: [OTH DISABILITY EXAMINER CURRENT DRUG THERAPY] Onset: 04-03-2022 Episodic [...] (peripheral)] 03-10-2024 Episodic Other nervous system disorders (20 sources) Abnormal gait; Translations: [Unsteadiness on feet] Onset: 08-06-2023 01-15-2024 Episodic Other skin disorders (2 sources) Ingrowing nail; Translations: [Ingrowing nail] 03-10-2024 Episodic Other upper respiratory disease (4 sources) Nasal congestion; Translations: [Nasal congestion] Onset: 12-24-2024 12-24-2024 Episodic Other upper respiratory disease (1 source) Nasal congestion; Translations: [Nasal congestion] Onset: 12-24-2024 Episodic Other upper respiratory infections (5 sources) Recurrent sinusitis; Translations: [Chronic sinusitis, unspecified] Onset: 12-24-2024 12-24-2024 Chronic Superficial injury; contusion (1 source) Contusion of other part of head, initial encounter; Translations: [CONTUS OTH PRT HEAD INITIAL ENCNTR] Onset: 07-23-2022 Episodic Thyroid disorders (15 sources) Hypothyroidism, unspecified; Translations: [Autoimmune thyroiditis] Onset: 09-03-2017 Chronic Unclassified (1 source) NO SHOW 02-05-2024 Unclassified (1 source) Sinus Problem Onset: 12-24-2024 Unclassified (1 source) Please arrange for MRI with General Anesthesia, need to have an MRI suite that can accommodate general anesthesia Past or Other Problems Problem Classification Problem Date Documented Da te Episodic/Chronic Biliary tract disease (3 sources) Finding of measures of gallbladder; Translations: [Other specified diseases of gallbladder] Onset: 09-03-2017 Resolved: 07-01-2019 09-03-2017 Episodic Conditions associated with dizziness or vertigo (18 sources) Dizziness; Translations: [Dizziness and giddiness] Onset: 07-03-2018 08-06-2023 Episodic Disorders of teeth and jaw (12 sources) Dental caries; Translations: [Dental caries, unspecified] Onset: 12-27-2023 Resolved: 03-02-2024 12-27-2023 Episodic Mood disorders (1 source) Mood disorders Onset: 07-01-2019 07-01-2019 Nausea and vomiting (1 source) Vomiting; Translations: [Vomiting, unspecified] Onset: 09-03-2017 09-03-2017 Episodic Other gastrointestinal disorders (1 source) Dysphagia; Translations: [Dysphagia, unspecified] Onset: 09-03-2017 09-03-2017 Episodic Other nutritional; endocrine; and metabolic disorders (5 sources) Developmental delay; Translations: [Unspecified lack of expected normal physiological development in childhood] Onset: 09-03-2017 06-03-2024 Episodic Other nutritional; endocrine; and metabolic disorders (1 source) Weight decreased; Translations: [Abnormal weight loss] Onset: 09-03-2017 Resolved: 07-01-2019 07-01-2019 Episodic Residual codes; unclassified (18 sources) Personal history of other specified conditions; Translations: [Personal history of other specified diseases] Onset: 09-03-2017 08-06-2023 Episodic Results Test Name Value Interpretation Reference Range Facility Anesthesia Postprocedure [facility] 03-02-2024 [employer] Operator Authentication Interface Message Text Anesthesia Postoperative [...] EVENTS: No notable events documented. Normal [facility] Anesthesia Preprocedure Geovany reis 03-02-2024 [employer]ane Operator Authentication Interface Message Text ASA: 3 No history of anesthetic complications NPO status: Greater than 8 hours Past Medical History and Review of Systems Pulmonary (+) sleep apnea (-) non-smoker Dental ROS (+) teeth problems missing Endo (+) hypothyroidism (Gato's disease) brusher tender - negative ROS Comment: - 03/02/2024 [...] ( Anesthesia consent obtained and scanned into [facility]. Scheduled for surgery 03/02/2024. ) Questions answered / anesthesia plan accepted ( Anesthesia consent obtained and scanned into [facility]. Scheduled for surgery 03/02/2024. ) Past medical history, surgical history, allergies, and medications reviewed. Pertinent laboratory tests, EKG, imaging, and consults reviewed and I have personally seen and evaluated the patient, repeating cabrera portions of the history and physical examination. Attestation: Anesthesia options were discussed with the patient and/or legal advertising account representative. The risks, benefits and alternatives were reviewed. Questions regarding anesthesia were answered. Patient and/or legal advertising account representative knows such anesthetics and procedures may be performed by Resident physicians, Certified Anesthesiologist Assistants, or Certified Nurse Anesthetists under the supervision of a physician. The patient /or the patient's legal advertising account representative agree with the plan for anesthesia. Comment: Anesthesia consent obtained and scanned into EPIC. Scheduled for surgery 03/02/2024. 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 Authentication Interface Message Text Patient taken [...] surgical history indicates: EXTRACTION, TOOTH (09/15/2014) Procedure: [place] teeth; Surgeon: Bradley Goodwin DDS; Location: PERIOPERATIVE SERVICES; Service: Oral EUA, ORAL (09/15/2014) Procedure: EUA, ORAL; Surgeon: Bradley Goodwin DDS; Location: PERIOPERATIVE SERVICES; Service: Oral Allergies: Linzess [linaclotide] and Zarontin [ethosuximide] Basic Operating Room Facts: Surgeon(s): Elmer Topete DDS Anesthesiologist: Milton Luna MD CUTTER TENDER: Adalgisa Smith APRN-DARSHAN Supervisor Edging: Dayanna Preciado MD DENTAL RESTORATIONS (Right: Mouth) [...] of the report was received. Adalgisa Smith, VIDEO GAMES MECHANIC-CUTTER TENDER Normal [facility] Blood Attestationon 03-02-20 Pit Crane Operator Authentication Interface Message Text Blood Attestation: ATTESTATION OF INFORMED CONSENT FOR BLOOD: The transfusion of blood and/or blood components were discussed with the patient and/or legal advertising account representative. The risks, benefits and alternatives were reviewed. Questions regarding blood transfusions were answered. The patient /or the patient's legal advertising account representative agree with the plan for transfusion of blood and/or blood components. Normal [facility] Brief Operative Noteon 03-02 Pit Crane Operator Authentication Interface Message Text Brief Operative Note PHE OR 3 Chantel Ascencio 29 year old female Surgical Contact Serial Number: [id number] Preoperative Diagnosis: Pre-op Diagnosis * Caries [K02.9] Postoperative Diagnosis: * Caries [K02.9] Procedures: Full mouth x-ray [85750] Prophylaxis [14711] Restorations [27659] Floride application [50033] Surgeon(s): Surgeon(s): Elmer Topete DDS Staff: Belt Repairer Nurse: Trudi Padilla Factorer: Paula Contreras DDS; Melquiades Christie DDS Anesthesia: General Anesthesiologist: Milton Luna MD CUTTER TENDER: Adalgisa Smith APRN-DARSHAN Supervisor Edging: Dayanna Preciado MD Specimen(s): * No specimens [...] Contreras DDS 03/02/2024 11:48 AM Normal [facility] Progress Noteson 03-02-2024 Pit Crane Operator Authentication Interface Message Text ----- Saturday, March 02, 2024 at 11:38:59 AM ----- ----- Provider: [id number] Rebolledo DDS -- Clinic: [facility] ----- [place] notes, pt is ready for tx [place]. X-Rays look good, few cavities found and confirmed clinically. restos completed. OP Note by Paula Contreras DDS at 03/01/2024 6:14 PM Author: Paula Contreras DDS Service: Dentistry Author Type: Resident Filed: 03/02/2024 11:56 AM Date of Service: 03/01/2024 6:14 PM Note Type: OP Note Status: Cosign Needed Tank Car Loader: Paula Contreras DDS (Resident) Cosign Required: Yes Expand All Collapse All Surgical Case Number Data Unavailable Operating Room Data Unavailable Preoperative Diagnosis(es): Caries [k02.9] Surgeon: Dr. Topete Electrolysis Investigator Surgeon: Melquiades Arias DDS - Paula Contreras [...] the treatment plan included the following: Composite denominational on tooth #7 surface ML. Amalgam restorations [...] 2024 at 11:57:17 AM ----- ----- Provider: [id number] - Elmer Rebolledo DDS -- Clinic: [facility] [...] Positive [facility] OP Noteon 03-01-2024 Pit Crane Operator Authentication Interface Message Text Surgical Case Number Data Unavailable Operating Room Data Unavailable Preoperative Diagnosis(es): Caries [k02.9] Surgeon: Dr. Topete Electrolysis Investigator Surgeon: Melquiades Arias DDS - Paula Contreras [...] the treatment plan included the following: Composite denominational on tooth #7 surface ML. Amalgam restorations [...] Contreras DDS 03/01/2024 6:15 PM Normal [facility] Telephone Encounteron 2023 Pit Crane Operator Authentication Interface Message Text Anesthesia consent obtained and scanned into [employer]. Scheduled for surgery 03/02/2024. Normal [facility] Telephone Encounteron 2023 Pit Crane Operator Authentication Interface Message Text Anesthesia consent obtained and scanned into EPIC. Scheduled for surgery 03/02/2024. Normal [facility] PAT Call Historyon Pit Crane Operator Authentication Interface Message Text Telephone History Chantel Ascencio, [id number] 02/19/2024 Patient was identified by name and date of via Ivon, caregiver. Needs: Physical, Neck Circumference, BHCG, and ED on DOS. Note: OSH records/labs scanned to digital media manager. If the patient becomes ill prior to procedure or surgery, they are to call their provider or surgeon's office directly. 29 year old 136.6 lbs 5' 4 Date of Surgery: 03/02 Surgeon: Yoselyn Type of Surgery: DENTAL RESTORATIONS HISTORY OF PRESENT ILLNESS: telephone history for the upcoming surgery at [facility], [address] [place], [facility] STOP-BANG Row Name 02/19/24 [id number] History of sleep apnea? Yes NO PSG [...] (+) teeth problems missing Endo (+) hypothyroidism brusher tender - negative ROS Neuro/Psych (+) bipolar disorder, seizures, intellectual disability Cardiovascular - negative ROS GI/Hepatic/Renal (+) GERD Heme/Other - negative ROS PAST SURGICAL HISTORY: Past Surgical History: Procedure Laterality Date EUA, ORAL 09/15/2014 Procedure: EUA, ORAL; Surgeon: Bradley Goodwin DDS; Location: PERIOPERATIVE SERVICES; Service: Oral EXTRACTION, TOOTH Bilateral 09/15/2014 Procedure: [place] teeth; Surgeon: Bradley Goodwin DDS; Location: PERIOPERATIVE [...] Take by mouth. Fluticasone Propionate (FLONASE NASAL) [place] into each nostril. Selenium (SELENIMIN ORAL) Take by mouth. Sennosides (SENNA) 15 MG tablet Take 1 Tab by mouth daily as needed for Constipation. topiramate (TOPIRAGEN) 25 MG tablet Take 75 mg by mouth 2 times daily (more content not included)... Normal [facility] Progress Noteson 02-17-2024 Pit Crane Operator Authentication Interface Message Text Patient PAT has be rescheduled for 02/19/2024--for OR visit 03/02/2024----- Saturday, February 17, 2024 at 10:10:00 AM ----- ----- Provider: LESLIE [facility]-Financial Investment Manager -- Clinic: [place] ----- Normal [facility] Progress Noteson 02-05-2024 Pit Crane Operator Authentication Interface Message Text Patient was no show for PAT today at [facility] surgery is scheduled 03/02-Contact [place] --advised if PAT needs to reschedule or patient will be removed from OR----- Monday, February 05, 2024 at 4:24:04 PM ----- ----- Provider: LESLIE [facility]-Financial Investment Manager -- Clinic: [place] ----- Normal [facility] Progress Noteson 01-08-2024 Pit Crane Operator Authentication Interface Message Text Parent/guardian/pat ient was contacted for PAT AND OR Sedation scheduled -- confirmed information with patient, also informed mom importance of going to PAT appointment -- if missed, IV Sedation will be cancelled, and you will be placed back on wait list 03/02/24----- Monday, January 08, 2024 at 2:14:12 PM ----- ----- Provider: LESLIE [facility]-Financial Investment Manager -- Clinic: [place] ----- Normal [facility] Progress Noteson 12-30-2023 Pit Crane Operator Authentication Interface Message Text Attempted to contact patient/ parent / guardian at telephone number listed -- no answer, left voicemail message requesting a return call.----- Saturday, December 30, 2023 at 2:26:35 PM ----- ----- Provider: LESLIE [facility]-Financial Investment Manager -- Clinic: [place] ----- [facility] Free T4on 01-09-2023 Free T4 [Mass/Vol] 1.12 ng/dL Normal 0.58-1.64 [facility] Comment on above: Performed By: #### 2 [id number] #### [facility] Laboratory [address] [place] [address] Physician Orderon 01-09-2023 Physician Order [id number] Normal [facility] TSHon 01-09-2023 TSH Qn 4.74 m[IU]/L Normal 0.34-5.60 [facility] Comment on above: Performed By: #### 2 [id number], [id number] #### [facility] [address] [place] [address] FREE T4on 08-29-2022 Free T4 [Mass/Vol] 1.76 ng/dL Critically high 0.76-1.46 [facility] Comment on above: Performed By: #### F T4 #### [facility] [address] [place] [address] Dr. Volodymyr Paez TSHon 08-29-2022 TSH Qn m[IU]/L Critically low 0.358-3.740 [facility] Comment on above: Performed By: #### T SH #### [facility] [address] [place] [address] Dr. Volodymyr Paez CULTURE URINEon 08-24-2022 CULTURE [...] S F Tetracycline >=16 R F Normal [facility] Comment on above: Performed By: #### T SH, CMP #### [facility] [address] [place] [address] Dr. Volodymyr Paez UA (CLEAN/CATCH) CARD DECORATOR/MICRO I F IND.on 08-21-2022 Bilirubin Ql (U) Negative Normal NEGATIVE [facility] Comment on above: Performed By: #### U ACSSHAHEEN ICRO #### [facility] [address] [place] [address] Dr. Volodymyr Paez Clarity (U) CLEAR Normal CLEAR [facility] Comment on above: Performed By: #### U ACSSHAHEEN, UMICRO #### [facility] [address] [place] [address] Dr. Volodymyr Paez Color (U) LT. YELLOW Normal YELLOW [facility] Comment on above: Performed By: #### U ACSSHAHEEN, UMICRO #### [facility] [address] [place] [address] Dr. Volodymyr Paez Glucose Ql (U) Negative Normal NEGATIVE [facility] Comment on above: Performed By: #### U ACSSHAHEEN, UMICRO #### [facility] [address] [address] [address] Volodymyr Paez Hemoglobin Ql (U) Negative Normal NEGATIVE [facility] Comment on above: Performed By: #### U ACSIND, UMICRO #### [facility] [address] [address] [address] Volodymyr Paez Ketones Ql (U) Negative Normal NEGATIVE [facility] Comment on above: Performed By: #### U ACSIND, UMICRO #### [facility] [address] [place] [address] Dr. Volodymyr Paez LEUKOCYTES SMALL Abnormal NEGATIVE [facility] Comment on above: Performed By: #### U ACSIND UMICRO #### [facility] [address] [place] [address] Dr. Volodymyr Paez Nitrite Ql (U) Negative Normal NEGATIVE [facility] Comment on above: Performed By: #### U ACSIND UMICRO #### [facility] [address] [address] [address] Volodymyr Paez pH (U) 7.0 [pH] Normal 5-9 [facility] Comment on above: Performed By: #### U ACSSHAHEEN UMICRO #### [facility] [address] [place] [address] Dr. Volodymyr Paez SPEC GRAVITY 1.020 Normal 1.005-<=1.025 [facility] Comment on above: Performed By: #### U ACSIND UMICRO #### [facility] [address] [address] [address] Volodymyr Paez UA PROTEIN Negative Normal NEGATIVE/ TRACE [facility] Comment on above: Performed By: #### U ACSIND, UMICRO #### [facility] [address] [address] [address] Volodymyr Paez UR MICRO IND INDICATED Normal [facility] Comment on above: Performed By: #### U ACSIND, UMICRO #### [facility] [address] [place] [address] Dr. Volodymyr Paez Urobilinogen Qn (U) 0.2 {Leta'U}/dL Normal 0.2 - 1. 0 [facility] Comment on above: Performed By: #### U ACSIND, UMICRO #### [facility] [address] [place] [address] Dr. Volodymyr Paez URINE MICROSCOPIC ONLYon BACTERIA SMALL Abnormal NONE SEEN The [facility] Comment on above: Performed By: #### U ACSIND, UMICRO #### [facility] [address] [place] [address] Dr. Volodymyr Paez Bacteria identified Cx Nom (U) INDICATED Normal [facility] Comment on above: Performed By: #### U ACSIND, UMICRO #### [facility] [address] [place] [address] Dr. Volodymyr Paez CAST NONE SEEN Normal NONE SEEN The [facility] Comment on above: Performed By: #### U ACSIND, UMICRO #### [facility] [address] [place] [address] Dr. Volodymyr Paez Crystals LM Nom (Urine sed) NONE SEEN Normal NONE SEEN The [facility] Comment on above: Performed By: #### U ACSIND, UMICRO #### [facility] [address] [place] [address] Dr. Volodymyr Paez Epithelial cells LM Ql (Urine sed) MODERATE Abnormal NONE SEEN /RARE [facility] Comment on above: Performed By: #### U ACSIND, UMICRO #### [facility] [address] [place] [address] Dr. Volodymyr Paez MUCOUS TRACE Abnormal NONE SEEN The [facility] Comment on above: Performed By: #### U ACSIND, UMICRO #### [facility] [address] [place] [address] Dr. Volodymyr Paez RBC 2-5 Abnormal 0-2 [facility] Comment on above: Performed By: #### U ACSIND, UMICRO #### [facility] [address] [place] [address] Dr. Volodymyr Paez WBC 10-20 Abnormal NONE SEEN The [facility] Comment on above: Performed By: #### U ACSIND, UMICRO #### [facility] [address] [place] [address] Dr. Volodymyr Paez LAMOTRIGINEon 08-13-2022 Lamotrigine, Serum 11.2 ug/mL Normal 2.0-20.0 [facility] Comment on above: Result Comment: Dete ction Limit = 1.0 Performed By: #### T SH, CMP #### [facility] [address] [place] [address] Dr. Volodymyr Paez CBC AUTO DIFFon 08-09-2022 BASO # 0.0 103/ul Normal 0.0-0.1 [facility] Comment on above: Performed By: #### C BC #### [facility] [address] [place] [address] Dr. Volodymyr Paez Basophils/100 WBC (Bld) 0.4 % Normal 0.2-2.0 [facility] Comment on above: Performed By: #### C BC #### [facility] [address] [place] [address] Dr. Volodymyr Paez EO # 0.4 103/ul Normal 0.0-0.7 [facility] Comment on above: Performed By: #### C BC #### [facility] [address] [place] [address] Dr. Volodymyr Paez Eosinophils/100 WBC (Bld) 4.3 % Normal 0.9-7.0 [facility] Comment on above: Performed By: #### C BC #### [facility] [address] [place] [address] Dr. Volodymyr Paez Erythrocyte distribution width (RBC) [Ratio] 13.2 % Normal 11.0-15.0 [facility] Comment on above: Performed By: #### C BC #### [facility] [address] [place] [address] Dr. Volodymyr Paez Hematocrit (Bld) [Volume fraction] 40.2 % Normal 36.0-48.0 [facility] Comment on above: Performed By: #### C BC #### [facility] [address] [place] [address] Dr. Volodymyr Paez Hemoglobin (Bld) [Mass/Vol] 13.8 g/dL Normal 12.0-16.0 [facility] Comment on above: Performed By: #### C BC #### [facility] [address] [place] [address] Dr. Volodymyr Paez IG # 0.02 10e3/ul Normal 0.00-0.03 [facility] Comment on above: Performed By: #### C BC #### [facility] [address] [place] [address] Dr. Volodymyr Paez IG % 0.2 % Normal 0.0-0.5 [facility] Comment on above: Performed By: #### C BC #### [facility] [address] [place] [address] Dr. Volodymyr Paez LYMPH # 4.3 103/ul Critically high 1.2-3.8 [facility] Comment on above: Performed By: #### C BC #### [facility] [address] [place] [address] Dr. Volodymyr Paez Lymphocytes/100 WBC (Bld) 51.8 % Normal 20.5-60.0 [facility] Comment on above: Performed By: #### C BC #### [facility] [address] [place] [address] Dr. Volodymyr Paez MANUAL DIFF REQ NO Normal [facility] Comment on above: Performed By: #### C BC #### [facility] [address] [place] [address] Dr. Volodymyr Paez MCH (RBC) [Entitic mass] 31.0 pg Normal 26.7-34.0 [facility] Comment on above: Performed By: #### C BC #### [facility] [address] [place] [address] Dr. Volodymyr Paez MCHC (RBC) [Mass/Vol] 34.3 g/dL Normal 29.9-35.2 [facility] Comment on above: Performed By: #### C BC #### [facility] [address] [place] [address] Dr. Volodymyr Paez MCV (RBC) [Entitic vol] 90.3 fL Normal 81.0-99.0 [facility] Comment on above: Performed By: #### C BC #### [facility] [address] [address] [address] Volodymyr Paez MONO # 0.9 103/ul Critically high 0.3-0.8 [facility] Comment on above: Performed By: #### C BC #### [facility] [address] [address] [address] Volodymyr Paez Monocytes/100 WBC (Bld) 10.4 % Normal 1.7-12.0 [facility] Comment on above: Performed By: #### C BC #### [facility] [address] [address] [address] Volodymyr Paez NEUT # 2.7 103/ul Normal 1.4-6.5 [facility] Comment on above: Performed By: #### C BC #### [facility] [address] [place] [address] Dr. Volodymyr Paez Neutrophils/100 WBC (Bld) 32.9 % Critically low 43.0-75.0 [facility] Comment on above: Performed By: #### C BC #### [facility] [address] [address] [address] Volodymyr Paez Platelet mean volume (Bld) [Entitic vol] 10.3 fL Normal 9.5-13.5 [facility] Comment on above: Performed By: #### C BC #### [facility] [address] [address] [address] Volodymyr Paez PLT 231 103/ul Normal 150-450 [facility] Comment on above: Performed By: #### C BC #### [facility] [address] [address] [address] Volodymyr Paez RBC 4.45 106/ul Normal 4.20-5.40 [facility] Comment on above: Performed By: #### C BC #### [facility] [address] [address] [address] Volodymyr Paez WBC 8.2 103/ul Normal 4.0-11.0 [facility] Comment on above: Performed By: #### C BC #### [facility] [address] [place] [address] Dr. Volodymyr Paez DEPAKENE/ VALPROIC ACIDon DEPAKENE 80.3 ug/ml Normal 50.0-100.0 [facility] Comment on above: Performed By: #### V ALP #### [facility] [address] [place] [address] Dr. Volodymyr Paez US THYROIDon 07-10-2022 US [...] 6 mm. No follow-up required TI-RADS: The [employer] TI-RADS committee's white paper recommendations for thyroid lesions classified as TR4 (moderately suspicious) are listed below: > 1.0 cm. Follow-up ultrasound in 1, 2, 3, and 5 years. > 1.5 cm. FNA. J. Am Chidi Radiol 2017;14:587-595. Electronically authenticated by: MATILDE WATERMAN Date: 2022-07-10 13:01 Normal [facility] LAMOTRIGINEon 06-29-2022 Lamotrigine, Serum 14.2 ug/mL Normal 2.0-20.0 [facility] Comment on above: Result Comment: Dete ction Limit = 1.0 Performed By: #### T SH, CMP #### [facility] [address] [place] [address] Dr. Volodymyr Paez CBC AUTO DIFFon 06-27-2022 BASO # 0.1 103/ul Normal 0.0-0.1 [facility] Comment on above: Performed By: #### T SH, CMP #### [facility] [address] [place] [address] Dr. Volodymyr Paez Basophils/100 WBC (Bld) 0.7 % Normal 0.2-2.0 [facility] Comment on above: Performed By: #### T SH, CMP #### [facility] [address] [place] [address] Dr. Volodymyr Paez EO # 0.4 103/ul Normal 0.0-0.7 [facility] Comment on above: Performed By: #### T SH, CMP #### [facility] [address] [place] [address] Dr. Volodymyr Paez Eosinophils/100 WBC (Bld) 5.1 % Normal 0.9-7.0 [facility] Comment on above: Performed By: #### T SH, CMP #### [facility] [address] [place] [address] Dr. Volodymyr Paez Erythrocyte distribution width (RBC) [Ratio] 13.1 % Normal 11.0-15.0 [facility] Comment on above: Performed By: #### T SH, CMP #### [facility] [address] [place] [address] Dr. Volodymyr Paez Hematocrit (Bld) [Volume fraction] 39.7 % Normal 36.0-48.0 [facility] Comment on above: Performed By: #### T SH, CMP #### [facility] [address] [place] [address] Dr. Volodymyr Paez Hemoglobin (Bld) [Mass/Vol] 13.3 g/dL Normal 12.0-16.0 [facility] Comment on above: Performed By: #### T SH, CMP #### [facility] [address] [place] [address] Dr. Volodymyr Paez IG # 0.02 10e3/ul Normal 0.00-0.03 [facility] Comment on above: Performed By: #### T SH, CMP #### [facility] [address] [place] [address] Dr. Volodymyr Paez IG % 0.3 % Normal 0.0-0.5 [facility] Comment on above: Performed By: #### T SH, CMP #### [facility] [address] [place] [address] Dr. Volodymyr Paez LYMPH # 3.6 103/ul Normal 1.2-3.8 [facility] Comment on above: Performed By: #### T SH, CMP #### [facility] [address] [place] [address] Dr. Volodymyr Paez Lymphocytes/100 WBC (Bld) 47.4 % Normal 20.5-60.0 [facility] Comment on above: Performed By: #### T SH, CMP #### [facility] [address] [place] [address] Dr. Volodymyr Paez MANUAL DIFF REQ NO Normal [facility] Comment on above: Performed By: #### T SH, CMP #### [facility] [address] [place] [address] Dr. Volodymyr Paez MCH (RBC) [Entitic mass] 30.3 pg Normal 26.7-34.0 [facility] Comment on above: Performed By: #### T SH, CMP #### [facility] [address] [place] [address] Dr. Volodymyr Paez MCHC (RBC) [Mass/Vol] 33.5 g/dL Normal 29.9-35.2 [facility] Comment on above: Performed By: #### T SH, CMP #### [facility] [address] [place] [address] Dr. Volodymyr Paez MCV (RBC) [Entitic vol] 90.4 fL Normal 81.0-99.0 [facility] Comment on above: Performed By: #### T SH, CMP #### [facility] [address] [place] [address] Dr. Volodymyr Paez MONO # 0.9 103/ul Critically high 0.3-0.8 [facility] System Comment on above: Performed By: #### T SH, CMP #### [facility] [address] [place] [address] Dr. Volodymyr Paez Monocytes/100 WBC (Bld) 11.3 % Normal 1.7-12.0 [facility] Comment on above: Performed By: #### T SH, CMP #### [facility] [address] [place] [address] Dr. Volodymyr Paez NEUT # 2.7 103/ul Normal 1.4-6.5 [facility] Comment on above: Performed By: #### T SH, CMP #### [facility] [address] [place] [address] Dr. Volodymyr Paez Neutrophils/100 WBC (Bld) 35.2 % Critically low 43.0-75.0 [facility] Comment on above: Performed By: #### T SH, CMP #### [facility] [address] [place] [address] Dr. Volodymyr Paez Platelet mean volume (Bld) [Entitic vol] 11.4 fL Normal 9.5-13.5 [facility] Comment on above: Performed By: #### T AKIKO, CMP #### [facility] [address] [place] [address] Dr. Volodymyr Paez PLT 96 103/ul Critically low 150-450 [facility] Comment on above: Result Comment: slid e made; no plt clumps seen Performed By: #### T SH, CMP #### [facility] [address] [place] [address] Dr. Volodymyr Paez RBC 4.39 106/ul Normal 4.20-5.40 [facility] Comment on above: Performed By: #### T SH, CMP #### [facility] [address] [place] [address] Dr. Volodymyr Paez WBC 7.6 103/ul Normal 4.0-11.0 [facility] Comment on above: Performed By: #### T SH, CMP #### [facility] [address] [place] [address] Dr. Volodymyr Paez FREE T4on 06-27-2022 Free T4 [Mass/Vol] 1.45 ng/dL Normal 0.76-1.46 [facility] Comment on above: Performed By: #### F T4 #### [facility] [address] [place] [address] Dr. Volodymyr Paez PROF 14(COMP METB)on 023 Albumin [Mass/Vol] 3.2 g/dL Critically low 3.4-5.0 [facility] Comment on above: Performed By: #### T SH, CMP #### [facility] [address] [place] [address] Dr. Volodymyr Paez Albumin/Globulin [Mass ratio] 0.7 {ratio} Normal [facility] Comment on above: Performed By: #### T SH, CMP #### [facility] [address] [place] [address] Dr. Volodymyr Paez ALP [Catalytic activity/Vol] 65 U/L Normal 46-116 [facility] Comment on above: Performed By: #### T SH, CMP #### [facility] [address] [place] [address] Dr. Volodymyr Paez ALT [Catalytic activity/Vol] 20 U/L Normal 14-59 [facility] Comment on above: Performed By: #### T SH, CMP #### [facility] [address] [place] [address] Dr. Volodymyr Paez Anion gap [Moles/Vol] 11.3 mmol/L Normal [facility] Comment on above: Performed By: #### T SH, CMP #### [facility] [address] [place] [address] Dr. Volodymyr Paez AST [Catalytic activity/Vol] 25 U/L Normal 15-37 [facility] Comment on above: Performed By: #### T SH, CMP #### [facility] [address] [place] [address] Dr. Volodymyr Paez Bilirubin [Mass/Vol] 0.3 mg/dL Normal 0.2-1.0 [facility] Comment on above: Performed By: #### T SH, CMP #### [facility] [address] [place] [address] Dr. Volodymyr Paez Calcium [Mass/Vol] 9.5 mg/dL Normal 8.5-10.1 [facility] Comment on above: Performed By: #### T SH, CMP #### [facility] [address] [place] [address] Dr. Volodymyr Paez Chloride [Moles/Vol] 100 mmol/L Normal 98-107 [facility] Comment on above: Performed By: #### T SH, CMP #### [facility] [address] [address] [address] Volodymyr Paez CO2 [Moles/Vol] 30.1 mmol/L Normal 21.0-32.0 [facility] Comment on above: Performed By: #### T SH, CMP #### [facility] [address] [place] [address] Dr. Volodymyr Paez Creatinine [Mass/Vol] 0.92 mg/dL Normal 0.55-1.02 [facility] Comment on above: Performed By: #### T SH, CMP #### [facility] [address] [place] [address] Dr. Volodymyr Paez EGFR-AF SUDANESE >60 Normal >=60 [facility] Comment on above: Performed By: #### T SH, CMP #### [facility] [address] [place] [address] Dr. Volodymyr Paez EGFR-NON AF SUDANESE >60 Normal >=60 [facility] Comment on above: Performed By: #### T SH, CMP #### [facility] [address] [place] [address] Dr. Volodymyr Paez Globulin (S) [Mass/Vol] 4.4 g/dL Normal [facility] Comment on above: Performed By: #### T SH, CMP #### [facility] [address] [place] [address] Dr. Volodymyr Paez Glucose [Mass/Vol] 76 mg/dL Normal 74-106 [facility] Comment on above: Performed By: #### T SH, CMP #### [facility] [address] [place] [address] Dr. Volodymyr Paez Potassium [Moles/Vol] 4.4 mmol/L Normal 3.5-5.1 [facility] Comment on above: Performed By: #### T SH, CMP #### [facility] [address] [address] [address] Volodymyr Paez Protein [Mass/Vol] 7.6 g/dL Normal 6.4-8.2 [facility] Comment on above: Performed By: #### T AKIKO, CMP #### [facility] [address] [address] [address] Volodymyr Paez Sodium [Moles/Vol] 137 mmol/L Normal 136-145 [facility] Comment on above: Performed By: #### T SH, CMP #### [facility] [address] [place] [address] Dr. Volodymyr Paez Urea nitrogen [Mass/Vol] 7.0 mg/dL Normal 7.0-18.0 [facility] Comment on above: Performed By: #### T AKIKO, CMP #### [facility] [address] [place] [address] Dr. Volodymyr Paez Urea nitrogen/Creatinine [Mass ratio] 7.6 mg/mg Normal [facility] Comment on above: Performed By: #### T AKIKO, CMP #### [facility] [address] [place] [address] Dr. Volodymyr Paez TSHon 06-27-2022 TSH 0.099 uIU/mL Critically low 0.358-3.740 [facility] Comment on above: Performed By: #### T AKIKO, CMP #### [facility] [address] [place] [address] Dr. Volodymyr Paez DEPAKENE/ VALPROIC ACIDon DEPAKENE 72.4 ug/ml Normal 50.0-100.0 [facility] Comment on above: Performed By: #### T AKIKO, CMP #### [facility] [address] [place] [address] Dr. Volodymyr Paez US THYROIDon 10-25-2021 US [...] screening is still recommended. TR 4: The [employer] TI-RADS committee's white paper recommendations for thyroid lesions classified as TR4 (moderately suspicious) are listed below: > 1.0 cm. Follow-up ultrasound in 1, 2, 3, and 5 years. > 1.5 cm. FNA. J. Am Chidi Radiol 2017;14:587-595. Electronically authenticated by: KRIS MENDOZA Date: 2021-10-25 09:31 Normal [facility] FREE T4on 10-24-2021 Free T4 [Mass/Vol] 1.08 ng/dL Normal 0.76-1.46 [facility] Comment on above: Performed By: #### T SH, CMP #### [facility] [address] [address] [address] Volodymyr Paez TSHon 10-24-2021 TSH 12.719 uIU/mL Critically high 0.358-3.740 [facility] Comment on above: Performed By: #### T SH #### [facility] [address] [address] [address] Volodymyr Paez Vital Signs Date Time Vital Sign Value Performing Clinician Facility 01-08-2025 08:01-0400 Body height 165.1 cm Nathan Tilley DO Work Phone: [facility] 01-08-2025 08:01-0400 Body weight 58.87 kg Nathan Tilley DO Work Phone: [facility] 01-08-2025 08:01-0400 Diastolic blood pressure 64 mm[Hg] Nathan Tilley DO Work Phone: [facility] 01-08-2025 08:01-0400 Heart rate 87 /min Nathan Tilley DO Work Phone: [facility] 01-08-2025 08:01-0400 Respiratory rate 16 /min Nathan Tilley DO Work Phone: [facility] 01-08-2025 08:01-0400 SaO2% (BldA) [Mass fraction] 97 % Nathan Tilley DO Work Phone: [facility] 01-08-2025 08:01-0400 Systolic blood pressure 113 mm[Hg] Nathan Tilley DO Work Phone: [facility] 11-24-2024 10:00-0400 Body height 165.1 cm Lai Dolce DPM FACFAS Work Phone: [facility] 11-24-2024 10:00-0400 Body mass index (BMI) [Ratio] 21.3 kg/m2 Lai Dolce DPM FACFAS Work Phone: [facility] 11-24-2024 10:00-0400 Body weight 58.06 kg Lai Dolce DPM FACFAS Work Phone: [facility] 11-24-2024 10:00-0400 Diastolic blood pressure 63 mm[Hg] Lai Dolce DPM FACFAS Work Phone: [facility] 11-24-2024 10:00-0400 Heart rate 70 /min Lai Dolce DPM FACFAS Work Phone: [facility] 11-24-2024 10:00-0400 Systolic blood pressure 115 mm[Hg] Lai Dolce DPM FACFAS Work Phone: [facility] 08-25-2024 11:03-0400 Body height 165.1 cm Lai Dolce DPM FACFAS Work Phone: [facility] 08-25-2024 11:03-0400 Body mass index (BMI) [Ratio] 21.3 kg/m2 Lai Dolce DPM FACFAS Work Phone: [facility] 08-25-2024 11:03-0400 Body weight 58.06 kg Lai Dolce DPM FACFAS Work Phone: [facility] 08-25-2024 11:03-0400 Diastolic blood pressure 64 mm[Hg] Lai Alvarado DPM FACFAS Work Phone: [facility] 08-25-2024 11:03-0400 Heart rate 71 /min Lai Alvarado DPM FACFAS Work Phone: [facility] 08-25-2024 11:03-0400 Systolic blood pressure 110 mm[Hg] Lai Alvarado DPM FACFAS Work Phone: [facility] 08-11-2024 10:16-0400 Body height 165.1 cm Eduarda Lowe PA Work Phone: [facility] 08-11-2024 10:16-0400 Body mass index (BMI) [Ratio] 21.47 kg/m2 Eduarda Lowe PA Work Phone: [facility] 08-11-2024 10:16-0400 Body weight 58.51 kg Eduarda Lowe PA Work Phone: [facility] 08-11-2024 10:16-0400 Diastolic blood pressure 62 mm[Hg] Eduarda Lowe PA Work Phone: [facility] 08-11-2024 10:16-0400 Systolic blood pressure 106 mm[Hg] Eduarda Lowe PA Work Phone: [facility] 06-10-2024 10:24-0500 Body height 165.1 cm Lai Alvarado DPM FACFAS Work Phone: [facility] 06-10-2024 10:24-0500 Body mass index (BMI) [Ratio] 21.47 kg/m2 Lai Alvarado DPM FACFAS Work Phone: [facility] 06-10-2024 10:24-0500 Body weight 58.51 kg Lai Alvarado DPM FACFAS Work Phone: [facility] 06-10-2024 10:24-0500 Diastolic blood pressure 72 mm[Hg] Lai Alvarado DPM FACFAS Work Phone: [facility] 06-10-2024 10:24-0500 Heart rate 74 /min Lai Dolce DPM FACFAS Work Phone: [facility] 06-10-2024 10:24-0500 Systolic blood pressure 120 mm[Hg] Lai Hackettce DPM FACFAS Work Phone: [facility] 06-03-2024 09:45-0500 Body height 165.1 cm Eduarda Crowdlye PA Work Phone: [facility] 06-03-2024 09:45-0500 Body mass index (BMI) [Ratio] 21.47 kg/m2 Eduarda Lowe PA Work Phone: [facility] 06-03-2024 09:45-0500 Body weight 58.51 kg Eduarda Lowe PA Work Phone: [facility] 03-10-2024 11:19-0500 Body height 165.1 cm Lai Dolce DPM FACFAS Work Phone: [facility] 03-10-2024 11:19-0500 Body mass index (BMI) [Ratio] 21.3 kg/m2 Lai Dolce DPM FACFAS Work Phone: [facility] 03-10-2024 11:19-0500 Body weight 58.06 kg Lai Dolce DPM FACFAS Work Phone: [facility] 03-10-2024 11:19-0500 Diastolic blood pressure 72 mm[Hg] Lai Hackettce DPM FACFAS Work Phone: [facility] 03-10-2024 11:19-0500 Heart rate 88 /min Lai Dolce DPM FACFAS Work Phone: [facility] 03-10-2024 11:19-0500 Systolic blood pressure 115 mm[Hg] Lai Dolce DPM FACFAS Work Phone: [facility] 03-02-2024 12:30-0500 Body temperature 98.1 [degF] Elmer Topete DDS Work Phone: [facility] 11-11-2024 12:30-0500 Diastolic blood pressure 73 mm[Hg] [facility] 03-02-2024 12:30-0500 Heart rate 113 /min Elmer Topete DDS [facility] 03-02-2024 12:30-0500 Respiratory rate 19 /min Elmer Topete DDS [facility] 03-02-2024 12:30-0500 SaO2% (BldA) [Mass fraction] 98 % Elmer Topete DDS [facility] 03-02-2024 12:30-0500 Systolic blood pressure 113 mm[Hg] Elmer Topete DDS [facility] 03-02-2024 09:11-0500 Body height 162.6 cm Elmeredgard Topete DDS [facility] 03-02-2024 09:11-0500 Body mass index (BMI) [Ratio] 23.45 kg/m2 Elmeredgard Topete DDS [facility] 03-02-2024 09:11-0500 Body weight 61.96 kg Elmeredgard Topete DDS [facility] 02-19-2024 11:00-0400 Body height 162.6 cm [facility] 02-19-2024 11:00-0400 Body mass index (BMI) [Ratio] 23.45 kg/m2 Kelly Cabello RN [facility] 02-19-2024 11:00-0400 Body weight 61.96 kg [facility] 01-21-2024 11:05-0400 Diastolic blood pressure 72 mm[Hg] Radha Lombardi PA Work Phone: [facility] 01-21-2024 11:05-0400 Heart rate 92 /min Radha Lombardi PA Work Phone: [facility] 01-21-2024 11:05-0400 Respiratory rate 16 /min Radha AMADOR Work Phone: [facility] 01-21-2024 11:05-0400 SaO2% (BldA) [Mass fraction] 96 % Radha AMADOR Work Phone: [facility] 01-21-2024 11:05-0400 Systolic blood pressure 118 mm[Hg] Radha AMADOR Work Phone: [facility] Healthcare Encounters Encounter Date Encounter Type Care Provider Facility Start: 01-08-2025 End: 01-08-2025 Patient encounter procedure Kenisha Mata Duvall [employer] MECHANIC-PATIENT SERVICE TECHNICIAN PST-[facility] -Surgery Center [facility] Start: 01-08-2025 End: 01-08-2025 ambulatory Nathan Tilley DO Work Phone: [facility] Work Phone: Start: 12-28-2024 End: 12-28-2024 Patient encounter procedure Kenisha Mata Jadiel [employer] MECHANIC-PATIENT SERVICE TECHNICIAN PST-C -Pre-Surgical Testing Work Phone: Start: 12-28-2024 End: 12-28-2024 ambulatory Nathan Tilley DO Work Phone: [facility] Work Phone: Start: 12-24-2024 End: 12-24-2024 Office outpatient new 30 minutes Philip Victor PA-C Work Phone: [facility] Comment on above: Recurrent sinusitis (Primary Dx); Recurrent sinus infections; Nasal congestion Start: 12-24-2024 End: 12-24-2024 ambulatory PHILIP VICTOR [facility] Start: 11-24-2024 End: 11-24-2024 Bamboo flowsheet Lai Alvarado DPM FACFAS Work Phone: [facility] Start: 11-24-2024 End: 11-24-2024 Bamboo flowsheet Lai Alvarado DPM FACFAS Work Phone: [facility] [place] Start: 11-24-2024 End: 11-24-2024 ambulatory LAI ALVARADO Not Available Start: 11-24-2024 End: 11-24-2024 Patient encounter procedure Lai Alvarado DPM FACFAS Work Phone: [facility] Comment on above: Onychomycosis (Prima ry Dx); Pain in right toe(s); Pain in left toe(s) Start: 10-01-2024 End: 10-01-2024 ambulatory Nathan Tilley Facility:[facility] Start: 08-25-2024 End: 08-25-2024 Bamboo flowsheet Lai Alvarado DPM FACFAS Work Phone: [facility] Start: 08-25-2024 End: 08-25-2024 Bamboo flowsheet Lai Serge Alvarado DPM FACFAS Work Phone: [facility] Start: 08-25-2024 End: 08-25-2024 Patient encounter procedure Lai Serge Hackettezio DPM FACFAS Work Phone: [facility] Comment on above: Onychomycosis (Prima ry Dx); Pain in right toe(s); Pain in left toe(s) Start: 08-25-2024 End: 08-25-2024 ambulatory LAI ALVARADO Not Available Start: 08-11-2024 End: 08-11-2024 Bamboo flowsheet Eduarda Lowe PA Work Phone: [facility] Start: 08-11-2024 End: 08-11-2024 Bamboo flowsheet Eduarda Lowe PA Work Phone: [facility] Start: 08-11-2024 End: 08-11-2024 Office outpatient visit 25 minutes Eduarda Lowe PA Work Phone: [facility] Comment on above: Seizure disorder (CM S/HCC) [...] instability Start: 06-03-2024 End: 06-03-2024 ambulatory EDUARDA SONAL Not Available Start: 03-10-2024 End: 03-10-2024 Bamboo [...] encounter procedure Elmer Topete DDS Work Phone: [facility] Start: 03-02-2024 End: 03-02-2024 Subsequent hospital visit by physician Elmer Topete DDS Work Phone: [facility] Start: 03-02-2024 End: 03-02-2024 ambulatory ELMER TOPETE Facility:[facility] Start: 02-26-2024 End: 02-26-2024 Telephone encounter Kelly Cabello RN [facility] Pre-Admission [facility] Comment on above: Pre-surgical Evaluat ion (DD adult dental restorations 03/02 under [place] at [place]. PAT completed - anesthesia consent. PAT RN spoke to Mary (nurse), confirmed NPO, [place] address, and 0900 arrival time/) Start: 02-24-2024 End: 02-24-2024 Telephone encounter Ashleigh Kaplan RN [facility] Comment on above: PAT (Anesthesia cons ent obtained) Start: 02-21-2024 End: 02-21-2024 Telephone encounter Ashleigh Kaplan RN [facility]mission [facility] Comment on above: PAT (Anesthesia cons ent obtained) Start: 02-19-2024 End: 02-19-2024 Nursing evaluation of patient and report Kelly Cabello RN [facility] Comment on above: Pre-op evaluation (P rimary Dx) Start: 02-19-2024 End: 02-19-2024 Preprocedural examination done Kelly Cabello RN [facility] Start: 02-19-2024 ambulatory UNKNOWN PROVIDER Facili ty:[facility] Start: 02-19-2024 Encounter for other preprocedural examination UNKNOWN PROVIDER [facility] Start: 02-05-2024 End: 02-05-2024 Patient encounter procedure Refugio Ferrell [employer] MECHANIC-[employer]LL HAULER Work Phone: [facility] Comment on above: NO SHOW (Primary Dx) Start: 01-21-2024 End: 01-21-2024 Bamboo flowsheet Radha AMADOR Work Phone: [facility] [address] Start: 01-21-2024 End: 01-21-2024 Bamboo flowsheet Radha AMADOR Work Phone: [facility] [address] Start: 01-21-2024 End: 01-21-2024 ambulatory RADHA LOMBARDI Not Available Start: 01-21-2024 End: 01-21-2024 Office outpatient visit 15 minutes Radha AMADOR Work Phone: [facility] [employer] [facility] Comment on above: Seizure disorder (CM S/HCC) (Primary Dx); Mental deficiency (CMS/HCC); Autism (CMS/HCC); Pseudobulbar affect; Gait instability Start: 12-27-2023 End: 12-27-2023 Admission to same day surgery center Mike Weber DDS Work Phone: [facility] Start: 01-09-2023 End: 01-10-2023 ambulatory NATHAN TILLEY Facility:[facility] Start: 08-29-2022 End: 08-30-2022 ambulatory [...] Telephone encounter Martha dill DMD Work Phone: [facility] Comment on above: Dental Start: 04-03-2022 End: 04-04-[address] NATHAN TILLEY Facility:[facility] Start: 03-13-2022 End: 03-18-2022 Patient encounter procedure Martha Coreas DMD Work Phone: [facility] Start: 10-24-2021 End: 10-25-[address] [...] (RZV) Vaccine (1 of 2) [facility] Start: 02-24-2025 End: 02-24-2025 Patient encounter procedure 02/24/2025 9:30 AM EST Office Visit [facility], A Department of [address] [place] [address] Shanna Del Valle MD [address] [place] [address] [facility], A Department of [facility] Start: 02-23-2025 End: 02-23-2025 Patient encounter procedure 02/23/2025 9:30 AM EST Procedure Visit [facility] [address] [place] [id number] Lai Alvarado, DPM FACFAS [address] [place] [address] [facility] Start: 02-17-2025 End: 02-17-2025 Patient encounter procedure 02/17/2025 2:45 PM EDT Office Visit [facility] [address] [facility] [place] [place] [address] Philip Victor, PA-C [address] [address] [facility] Start: 01-08-2025 OR CAT/MRI W/ IV SEDATION (Not Applicable) OR CAT/MRI W/ IV SEDATION (Not Applicable) [facility] Start: 12-21-2024 Influenza vaccination [facility] Start: 11-03-2024 End: 11-03-2024 Patient encounter procedure 11/03/2024 11:00 AM EDT Procedure Visit [facility] [address] [place] [address] Lai Alvarado, DPM FACFAS [address] [place] [address] [facility] Start: 08-25-2024 End: 08-25-2024 Patient encounter procedure [facility] Comment on above: Arrived Start: 08-19-2024 End: 08-19-2024 Patient encounter procedure 08/19/2024 11:00 AM EDT Procedure Visit [facility] [address] [place] [address] Lai Alvarado, DPM FACFAS [address] [place] [address] [facility] Start: 08-11-2024 End: 08-11-2024 Patient encounter procedure [facility] Comment on above: Arrived Start: 06-10-2024 End: 06-10-2024 Patient encounter procedure [facility] Comment on above: Arrived Start: 05-12-2024 End: 05-12-2024 Patient encounter procedure 05/12/2024 11:20 AM EST Office Visit [facility] [address] [place] [address] Radha Lombardi PA [address] [place] [address] [facility] Start: 03-02-2024 End: 03-02-2024 Admission to same day surgery center 03/02/2024 9:14 AM EST - 03/02/2024 10:58 AM EST Surgery [facility] [address] [place] [id number] Elmer Topete S [address] [place] [address] DENTAL [employer]ORATIONS [facility] Comment on above: [employer]AL [employer] Start: 03-02-2024 End: 03-02-2024 DENTAL RESTORATIONS [facility] Start: 03-02-2024 End: 03-02-2024 Admission to same day surgery center 03/02/2024 7:40 AM EST - 03/02/2024 9:24 AM EST Surgery [facility] [address] [place] [id number] Elmer Topete DDS [address] [place] [address] DENTAL [employer]ORATIONS [facility] Comment on above: [employer]AL [employer]OR[employer] Start: 03-02-2024 End: 03-02-2024 DENTAL RESTORATIONS DENTAL RESTORATIONS Routine scheduled Caries 03/02/2024 7:40 AM EST [facility] Start: 03-02-2024 Subsequent hospital visit by physician [facility] Start: 03-02-2024 End: 03-02-2024 Patient encounter procedure [facility] Start: 02-05-2024 End: 02-05-2024 Patient encounter procedure 02/05/2024 9:15 AM EDT Office Visit [facility] [address] [place] [phone] Refugio Ferrell, CHERELLE-ROLL HAULER [address] [facility] [place] [address] [facility] Start: 01-21-2024 Influenza vaccination Influenza Vacc ine (#1) [facility] Start: 01-21-2024 End: 01-20-2025 Lamotrigine level Lamotrigine level Lab Routine Seizure disorder (CMS/HCC) Expected: 01/21/2024 (Approximate), Expires: 01/20/2025 [facility] Work Phone: Comment on above: Expected: 01/21/2024 (Approximate), Expires: 01/20/2025 Start: 01-21-2024 End: 01-20-2025 Valproic acid level, total Valproic acid level, total Lab Routine Seizure disorder (CMS/HCC) Expected: 01/21/2024 (Approximate), Expires: 01/20/2025 [facility] Comment on above: Expected: 01/21/2024 (Approximate), Expires: 01/20/2025 Start: 12-22-2023 COVID-19 Vaccine ( season) COVID-19 Vaccine ( season) [facility] Start: 12-22-2023 COVID-19 Vaccine () COVID-19 Vaccine () [facility] Start: 12-22-2023 Influenza vaccination Influenza Vacc ine (#1) [facility] Start: 2023 Screening for malign ant neoplasm of cervix [facility] Start: 01-20-2022 Influenza vaccination Influenza Vacc ine (#1) [facility] Start: 06-10-2021 DTaP,Tdap and Td Vaccines (3 - Td or Tdap) DTaP,Tdap and Td Vaccines (3 - Td or Tdap) [facility] Start: 07-19-2020 COVID-19 Vaccine (3 [...] Hepati tis B (HBV) Vaccine (1 of - + 3-dose series) [facility] Start: 2011 Adult BMI Screening Adult BMI Screen ing [facility] Start: 2011 Hepatitis C screening Hepatitis C An tibody [facility] Start: 2011 Tetanus + diphtheria + acellular pertussis vaccine (product) [facility] Start: 01-02-2008 HIV screening HIV Test [place] Start: 2005 Depression Screening Depression Scre ening [facility] Start: 2005 Tobacco Screening Tobacco Screening [facility] Start: 1993 Medicare Annual Wellness (AWV) Medicare Annual Wellness (AWV) [facility] DENTAL RESTORATIONS DENTAL MEENA RATIONS Routine scheduled [facility] referral [facility] Work Phone: Payers Date Payer Category Payer Self-pay 2024 Medicare [id number] 2014 Dental --Stand Alone DENTAL-MEDI CAID [id number] 2014 Unknown 2013 Medicaid [id number]. [id number] 2012 Medicare [id number] [id number]. [id number] 2012 Medicare FFS MEDICARE [id number] 1993 Unknown [id number] 2.16.840.1.089834.3.579.2.7 32 1993 Unknown [id number] 2.16.840.1.632047.3.579.2.7 32 1993 Unknown [id number] 2.16.840.1.863370.3.579.2.7 32 1993 Unknown [id number] 2.16.840.1.595940.3.579.2.1 259 1993 Unknown [id number] 2.16.840.1.416497.3.579.2.1 259 1993 Unknown [id number] 2.16.840.1.817806.3.579.2.1 259 1993 Unknown [id number] 2.16840.1.650391.3.579.2.1 259 1993 Unknown [id number] 2.16.840.1.851634.3.579.2.1 259 1993 Unknown [id number] 2.16.840.1.745276.3.579.2.1 259 1993 Unknown [id number] 2.16.840.1.312169.3.579.2.1 259 1993 Unknown [id number] 2.16.840.1.572876.3.579.2.1 286 1959 Medicaid [id number] 1959 Medicare [id number] 1954 Unknown [id number] 2.16.840.1.417215.3.579.2.5 93 1954 Unknown [id number] 2.16.840.1.972638.3.579.2.5 93 1954 Unknown [id number] 2.16.840.1.692863.3.579.2.5 93 1954 Unknown [id number] 2.16.840.1.051970.3.579.2.5 93 1954 Unknown [id number] 2.16.840.1.003657.3.579.2.5 93 1954 Unknown [id number] 2.16.840.1.110440.3.579.2.5 93 1954 Unknown [id number] 2.16.840.1.252351.3.579.2.5 93 1954 Unknown [id number] 2.16.840.1.200727.3.579.2.5 93 Unknown [id number] 2.16.840.1.000604.3.579.2.7 27 Unknown [facility] [id number] Unknown [id number] 2.16.840.1.638875.3.579.2.5 31 Unknown [id number] 2.16.840.1.718207.3.579.2.5 31 Unknown [id number] 2.16.840.1.399257.3.579.2.5 31 Social History Date Type Detail [facility] Start: 1995 Sex Assigned At [facility] on file [facility] Start: 06-02-2020 End: 10-01-2023 Gender identity Not on file [facility] Start: 08-06-2023 End: 01-08-2025 Tobacco smoking status NHIS Never smoked tobacco [facility] Start: 09-03-2017 End: 08-06-2023 Tobacco use and exposure Smokeless tobacco non-user [facility] Start: 10-01-2023 End: 11-24-2024 Alcoholic beverage intake Lifetime non-drinker (finding) [facility] Start: 06-02-2020 End: 10-01-2023 History of Social function [facility] Start: 07-06-2014 End: 08-15-2017 Sex Female (finding) [facility] Start: 07-01-2019 Alcoholic beverage intake Current non-drinker of alcohol (finding) [facility] Adolescent depressio n screening assessment 0 [facility] Start: 1995 Sex Assigned At Female F [facility] Goals Date Patient Goal Desired Activity /State Clinical Notes 03-13-2022 to 12-24-2024 Philip Victor PA-C - 12/24/2024 10:15 AM EDTMarc Serge Alvarado DPM [facility]AC[facility]AS - 11/24/2024 9:30 AM EDTMarc Serge Alvarado DPM FACFAS - 08/25/2024 11:00 AM PERRY Lentz - 08/11/2024 10:40 AM EDT Note Date & Type Note Facility 12-24-2024 History of Present illness Narrative [facility] [address] [facility] [id number] SUBJECTIVE: Patient ID (1995): Chantel Ascencio is a 29 y.o. female presents today for Chief Complaint Patient presents with Sinus Problem Nasal Congestion HPI: Chantel is seen as a new patient in consultation for recurrent sinusitis and chronic nasal congestion. She is present with her mother and caregiver who provide the history. She has a history of autism and developmental delay and resides at [facility]. Mom reports that Chantel experiences chronic nasal congestion, drainage and frequent recurring sinus infections a few times per year. There is concern for allergies as there seems to be a seasonal pattern to patient's symptoms. She has not had formal allergy testing. Per nursing documentation sent by care facility. Patient was started on a Z-Babak 12/22 due to green nasal drainage. Since last March she has been on Levaquin, Augmentin, clindamycin and cephalexin for congestion and sinus infections. The duration of antibiotic treatments have been proximally 7 days, each time she is treated. It is also noted that she will often times have puffy, red eyes and seems to be light sensitive. It is unclear if Chantel takes daily antihistamines, though her mother mentions she might be taking Claritin. The use of nasal sprays is uncertain, but the patient does use eye drops for her dry eyes as needed. Chantel has no history of ENT-related surgeries such as sinus surgery, tonsillectomy or ear tube placement. She has not had sinus imaging. Mom notes that she is scheduled for a brain MRI to be completed at [facility] in [place] next week which has to be done with sedation. HISTORY: Past Medical History: Diagnosis Date Abnormal ultrasound ADHD (attention deficit hyperactivity disorder) Allergic Alopecia Anxiety Anxiety disorder 09/03/2017 Autism Developmental delay 09/03/2017 Dysphagia 09/03/2017 Gato's disease History of seizure 09/03/2017 History of seizures Hypothyroidism Mental retardation Pervasive developmental disorder Pica RUQ abdominal pain Seizures ([facility]) Sleep apnea Strabismus Thickening of wall of gallbladder Thyroid nodule LEFT Vomiting 09/03/2017 Weight loss Past Surgical History: Procedure Laterality Date EGD N/A 2018 Performed by Destiney Magaña MD at [facility] Family History Problem Relation Age of Onset Hypothyroidism Father Social History Socioeconomic History Marital status: Single Spouse name: Not on file Number of children: Not on file Years of education: Not on file Highest education level: Not on file Occupational History Not on file Tobacco Use Smoking status: Never Smokeless tobacco: Never Substance and Sexual Activity Alcohol use: No Drug use: No Sexual activity: Defer Other Topics Concern Coffee Not Asked Tea Not Asked Carbonated Beverages Not Asked Chocolate Not Asked Social History Narrative Not on file Social Drivers of Health Financial Resource Strain: Not on file Food Insecurity: Not on file Transportation Needs: Not on file Physical Activity: Not on file Stress: Not on file Social Connections: Not on file Interpersonal Safety: Not on file Housing Instability: Not on file Allergies Allergen Reactions Linzess [Linaclotide] Nausea And Vomiting Zarontin [Ethosuximide] Rash Current Outpatient Medications Medication Sig Dispense Refill acetaminophen (TYLENOL) 325 mg tablet Take 2 tablets (650 mg total) by mouth. bisacodyl (BISCOLAX) 10 mg suppository Insert 1 suppository (10 mg total) into the rectum as needed for constipation. busPIRone (BUSPAR) 10 mg tablet 1 tablet (10 mg total) in the morning and 1 tablet (10 mg total) at noon and 1 tablet (10 mg total) before bedtime. cloNIDine (CATAPRES) 0.2 mg tablet Take 1 tablet (0.2 mg total) by mouth in the morning and 1 tablet (0.2 mg total) at noon and 1 tablet (0.2 mg total) before bedtime. cyanocobalamin, vitamin B-12, (VITAMIN B-12 ORAL) Take 1,500 mcg by mouth. divalproex (DEPAKOTE) 125 mg EC tablet Take 1 tablet (125 mg total) by mouth in the morning and 1 tablet (125 mg total) at noon and 1 tablet (125 mg total) in the evening and 1 tablet (125 mg total) before bedtime. divalproex sprinkle (DEPAKOTE SPRINKLE) 125 mg capsule docusate sodium (COLACE) 100 mg capsule Take 1 capsule (100 mg total) by mouth in the morning and 1 capsule (100 mg total) at noon and 1 capsule (100 mg total) before bedtime. famotidine (PEPCID) 40 mg tablet Take 1 tablet (40 mg total) by mouth in the morning. guaiFENesin (MUCINEX) 600 mg tablet extended release 12hr Take 1 tablet (600 mg total) by mouth every 12 (twelve) hours as needed. guaiFENesin (ROBITUSSIN) 100 mg/5 mL syrup Take by mouth every 4 (four) hours as needed for cough. guanFACINE (TENEX) 2 mg tablet Take 1 tablet (2 mg total) by mouth every morning before breakfast. ibuprofen (ADVIL,MOTRIN) 600 mg tablet Take 1 tablet (600 mg total) by mouth every 6 (six) hours as needed for pain. lamoTRIgine (LaMICtal XR) 300 mg tablet extended release 24hr levothyroxine (SYNTHROID, LEVOTHROID) 100 MCG tablet Take 1 tablet (100 mcg total) by mouth in the morning. MELATONIN ORAL Take 3 mg by mouth once daily at bedtime. mupirocin (BACTROBAN) 2 % ointment Apply 1 Application topically 3 (three) times a day. NORTREL 1/35, 28, 1-35 mg-mcg per tablet ondansetron (ZOFRAN) 4 mg tablet Take 1 tablet (4 mg total) by mouth every 8 (eight) hours as needed for nausea or vomiting. paliperidone (INVEGA) 3 mg 24 hr tablet Take 1 tablet (3 mg total) by mouth every morning. polyethylene glycol (GLYCOLAX) 17 gram packet Take 17 g by mouth in the morning. QUEtiapine (SEROquel) 400 mg tablet Take 1 tablet (400 mg total) by mouth nightly. ammonium lactate (AMLACTIN) 12 % cream (Patient not taking: Reported on 12/24/2024) azelastine (ASTELIN) 137 mcg (0.1 %) nasal spray Administer 2 sprays into each nostril in the morning and 2 sprays before bedtime. Use in each nostril as directed. 30 mL 5 bacitracin 500 unit/gram ointment Apply 1 application topically 2 (two) times a day. (Patient not taking: Reported on 12/24/2024) diazePAM (VALIUM) 5 mg tablet (Patient not taking: Reported on 12/24/2024) diphenhydrAMINE (COMPLETE ALLERGY) 25 mg capsule Take 25 mg by mouth every 6 (six) hours as needed for itching. (Patient not taking: Reported on 12/24/2024) diphenhydrAMINE (SOMINEX) 25 mg tablet Take 25 mg by mouth nightly as needed for sleep. (Patient not taking: Reported on 12/24/2024) guanFACINE (TENEX) 1 mg tablet Take 2 mg by mouth nightly. (Patient not taking: Reported on 12/24/2024) lansoprazole (PREVACID) 30 mg capsule (Patient not taking: Reported on 12/24/2024) loratadine (CLARITIN) 10 mg tablet Take 10 mg by mouth daily. (Patient not taking: Reported on 12/24/2024) lubiprostone (AMITIZA) 24 MCG capsule Take 24 mcg by mouth 2 (two) times a day with meals. (Patient not taking: Reported on 12/24/2024) minoxidil (ROGAINE) 5 % solution Apply 1 application topically. (Patient not taking: Reported on 12/24/2024) mometasone (NASONEX) 50 mcg/actuation nasal spray Administer 2 sprays into each nostril in the morning. 17 g 5 pantoprazole (PROTONIX) 40 mg EC tablet (Patient not taking: Reported on 12/24/2024) risperiDONE (RisperDAL) 0.5 mg tablet (Patient not taking: Reported on 12/24/2024) risperiDONE (RisperDAL) 1 mg tablet (Patient not taking: Reported on 12/24/2024) senna (SENOKOT) 8.6 mg tablet Take 17.2 mg by mouth 2 (two) times a day. (Patient not taking: Reported on 12/24/2024) sennosides (sennosides) 8.8 mg/5 mL syrup Take 8.6 mg by mouth 2 (two) times a day as needed. (Patient not taking: Reported on 12/24/2024) triamcinolone (KENALOG) 0.1 % lotion Apply 1 application topically daily as needed. (Patient not taking: Reported on 12/24/2024) No current facility-administered medications for this visit. REVIEW OF SYSTEMS: Review of Systems Constitutional: Negative for fever. HENT: Positive for congestion and sore throat. Eyes: Negative for redness. Respiratory: Positive for cough. Skin: Negative for rash. Data Reviewed: PHYSICAL EXAMINATION: There were no vitals taken for this visit. Constitutional: Alert, NAD, somewhat reluctant to examination . Voice normal quality. Head/Face: Normocephalic, without obvious abnormality, salivary glands normal, atraumatic, sinuses nontender, and facial nerve intact Eyes: No gross abnormalities., EOMI, no nystagmus, and no lid ptosis Ear: RIGHT: hearing normal, external ear normal, and canal abnormal due to occluding cerumen LEFT: hearing normal, external ear normal, canal normal, and TM normal without fluid or infection Nose: External nose appears normal, septum midline, no nasal polyps or masses, turbinate hypertrophy, clear rhinorrhea, and mucosal edema Oral: normal teeth, normal lips, normal gums, normal hard palate, normal anterior tongue, and oral mucosa moist Oropharynx: normal-appearing mucosa, no pharyngitis, no exudate, and normal soft palate and uvula Nasopharynx: unable to view due to hyperactive gag reflex, Neck:normal, supple, no adenopathy, thyroid normal in size, no nodules or tenderness, and no neck masses palpable Respiration: No stridor, Normal respiratory effort. Neurologic: Grossly normal ASSESSMENT/PLAN: Chantel was seen today for sinus problem and nasal congestion. Diagnoses and all orders for this visit: Recurrent sinusitis Recurrent sinus infections - [facility] [place], [place] - [facility] [place] [place]; Future Nasal congestion - [facility] [place] - [facility] [place] [place]; Future - azelastine (ASTELIN) 137 mcg (0.1 %) nasal spray; Administer 2 sprays into each nostril in the morning and 2 sprays before bedtime. Use in each nostril as directed. - mometasone (NASONEX) 50 mcg/actuation nasal spray; Administer 2 sprays into each nostril in the morning. Plan: Chantel Ascencio was seen and evaluated. Examination was limited due to patient's cognition. Nasal endoscopy was not attempted as I suspected that patient would be very intolerant to this exam. -referral placed to Allergy/immunology -ordered azelastine and Nasonex nasal sprays to be used in combination -we will request for MRI brain imaging to be pushed through PACS for assessment of the sinuses. Although this is not the preferred imaging modality some insight can be gathered as opposed to ordering CT sinus which patient will most likely require sedation to complete. -return for follow-up in 4-6 weeks, advised to call sooner with concerns. All questions were addressed, mom agrees to this plan. Provider Statement: I PHILIP VICTOR PA-C personally performed the services described in the documentation as described by the above named scribe in my presence. It is both accurate and complete at the time of final signature. Philip Victor PA-C 12/24/2024 12:17 PM Counseling: The following elements of medical decision making were considered during this visit: Prescription drug management and Reviewed and summarized previous records and Low risk of morbidity from additional diagnostic testing or treatment. The patient was counseled regarding prognosis, risks and benefits of treatment options, impressions, importance of compliance with treatment and risk factor reductions. The patient verbalized understanding and agreement to the plan. Please note that parts of this chart were generated using voice recognition M*Modal dictation software. Although every effort was made to ensure the accuracy of this automated earth mover, some errors in earth mover may have occurred. Philip Victor PA-C 12/24/24 1224 documented in this encounter [facility] 11-24-2024 History of Present illness Narrative Images [...] subungual debris. They were painful to palpation [phone] on the right [id number] on the left. VASC: DP /PT were nonpalpable bilateral. Capillary refill time < 3 seconds Digits 1-5 bilateral NEURO: Story Cecy 5.07 monofilament was intact B/L. Vibratory [...] 10. MAURA Salas documented in this encounter [facility] 08-25-2024 History of Present illness Narrative [...] Past Medical History: Diagnosis Date Anxiety Autism ([facility]) Disturbance of salivary secretion [...] subungual debris. They were painful to palpation [phone] on the right [phone] on the left. VASC: DP /PT were nonpalpable bilateral. Capillary refill time < 3 seconds Digits 1-5 bilateral NEURO: Story Cecy 5.07 monofilament was intact B/L. Vibratory [...] 10. MAURA Salas documented in this encounter [facility] 08-11-2024 History of Present illness Narrative [...] Review Audit Reviewed by Freida Amezquita MA (Morgue Keeper) on 08/11/24 at 1017 Medication Order Taking? Sig Documenting Provider Last Dose Status ammonium lactate (Amlactin) 12 % cream [id number] Apply 2 application topically Daily Patient not taking: Reported on 06/03/2024 Real Schneider MD Active busPIRone (Buspar) 30 MG tablet [id number] Take 30 mg by mouth in the morning and 30 mg in the evening and 30 mg before bedtime. Real Schneider MD Active cloNIDine (Catapres) 0.2 MG tablet [id number] Take 0.2 mg by mouth in the morning and 0.2 mg at noon and 0.2 mg in the evening and 0.2 mg before bedtime. Real Schneider MD Active divalproex (Depakote) 125 MG EC tablet [id number] Take 500 mg by mouth in the morning and 500 mg in the evening and 500 mg before bedtime. Real Schneider MD Active divalproex (Depakote) 125 MG EC tablet [id number] Take 1,000 mg by mouth at bedtime Do not crush, chew, or split. Real Schneider MD Active famotidine (Pepcid) 40 MG tablet [id number] Take 40 mg by mouth Daily Real Schneider MD Active guanFACINE (Tenex) 2 MG tablet [id number] Take 2 mg by mouth in the morning and 2 mg before bedtime. Real Schneider MD Active lamoTRIgine (LaMICtal) 100 MG tablet [id number] Take 100 mg by mouth at bedtime Real Schneider MD Active lamoTRIgine (LaMICtal) 150 MG tablet [id number] Take 150 mg by mouth in the morning. Real Schneider MD Active levothyroxine (Synthroid, Levoxyl) 200 MCG tablet [id number] Take 200 mcg by mouth in the morning. Take before meals. Real Schneider MD Active levothyroxine (Synthroid, Levoxyl) 25 MCG tablet [id number] Take 25 mcg by mouth in the morning. Take before meals. Real Schneider MD Active loratadine (Claritin) 10 MG tablet [id number] Take 10 mg by mouth Daily Real Schneider MD Active Melatonin 3 MG tablet dispersible [id number] Take 3 mg by mouth at bedtime Real Schneider MD Active norethindrone-ethinyl estradiol (Ortho-Novum, Nortrel) 1-35 MG-MCG tablet [id number] Take 1 tablet by mouth Daily Historical Provider, Active paliperidone (Invega) 3 MG 24 hr tablet [id number] Take 3 mg by mouth in the morning and 3 mg before bedtime. Do not crush, chew, or split.. Historical Provider, Active polyethylene glycol, PEG, 3350 (Miralax) 17 g packet [id number] Take 17 g by mouth Daily Historical ProviderMD Active QUEtiapine (SEROquel) 200 MG tablet [id number] Take 200 mg by mouth at bedtime Historical ProviderMD Active QUEtiapine (SEROquel) 400 MG tablet [id number] Take 400 mg by mouth at bedtime Historical Provider, Active HPI History obtained from caregiver report from [facility] Caregiver from [facility] here with patient today SEIZURE -on lamictal and depakote -denies any missed doses -denies any recent seizure -[facility] continues to use a wheelchair -she is [...] triceps, wrist extensors, wrist extensors, wrist flexor, meter supervisor strength 5/5. LUE Strength deltoid, biceps, triceps, wrist extensors, wrist extensors, wrist flexor, meter supervisor strength 5/5. RLE Strength illopsoas, quadriceps, tibialis [...] is note from PT and staff at [facility] that the patient has had continued loss [...] or CTA she would require sedation per [facility]. She continues with balance disturbance and worsening strength per PT at [facility]. Blood work 09/12/2023: Valproic acid level 93.9, [...] Progress notes and PT notes reviewed from [facility]. We will look into local options for [...] up after imaging. documented in this encounter [facility] 06-10-2024 History of Present illness Narrative [...] Past Medical History: Diagnosis Date Anxiety Autism ([facility]) Disturbance of salivary secretion [...] subungual debris. They were painful to palpation [id number] on the right [phone] on the left. VASC: DP /PT were nonpalpable bilateral. Capillary refill time < 3 seconds Digits 1-5 bilateral NEURO: Story Cecy 5.07 monofilament was intact B/L. Vibratory [...] 10. MAURA Salas documented in this encounter [facility] 06-03-2024 History of Present illness Narrative [...] Review Audit Reviewed by Krista Wu MA (Morgue Keeper) on 06/03/24 at 0955 Medication Order Taking? Sig Documenting Provider Last Dose Status ammonium lactate (Amlactin) 12 % cream [id number] Apply 2 application topically Daily Patient not taking: Reported on 06/03/2024 Historical Provider, Active busPIRone (Buspar) 30 MG tablet [id number] Take 30 mg by mouth in the morning and 30 mg in the evening and 30 mg before bedtime. Real Schneider MD Active cloNIDine (Catapres) 0.2 MG tablet [id number] Take 0.2 mg by mouth in the morning and 0.2 mg at noon and 0.2 mg in the evening and 0.2 mg before bedtime. Real Schneider MD Active divalproex (Depakote) 125 MG EC tablet [id number] Take 500 mg by mouth in the morning and 500 mg in the evening and 500 mg before bedtime. Real Schneider MD Active divalproex (Depakote) 125 MG EC tablet [id number] Take 1,000 mg by mouth at bedtime Do not crush, chew, or split. Real Schneider MD Active famotidine (Pepcid) 40 MG tablet [id number] Take 40 mg by mouth Daily Real Schneider MD Active guanFACINE (Tenex) 2 MG tablet [id number] Take 2 mg by mouth in the morning and 2 mg before bedtime. Real Schneider MD Active lamoTRIgine (LaMICtal) 100 MG tablet [id number] Take 100 mg by mouth at bedtime Historical MD Jennie Active lamoTRIgine (LaMICtal) 150 MG tablet [id number] Take 150 mg by mouth in the morning. Real Schneider MD Active levothyroxine (Synthroid, Levoxyl) 200 MCG tablet [id number] Take 200 mcg by mouth in the morning. Take before meals. Real Schneider MD Active levothyroxine (Synthroid, Levoxyl) 25 MCG tablet [id number] Take 25 mcg by mouth in the morning. Take before meals. Real Schneider MD Active loratadine (Claritin) 10 MG tablet [id number] Take 10 mg by mouth Daily Real Schneider MD Active Melatonin 3 MG tablet dispersible [id number] Take 3 mg by mouth at bedtime Real Schneider MD Active norethindrone-ethinyl estradiol (Ortho-Novum, Nortrel) 1-35 MG-MCG tablet [id number] Take 1 tablet by mouth Daily Real Schneider MD Active paliperidone (Invega) 3 MG 24 hr tablet [id number] Take 3 mg by mouth in the morning and 3 mg before bedtime. Do not crush, chew, or split.. Real Schneider MD Active polyethylene glycol, PEG, 3350 (Miralax) 17 g packet [id number] Take 17 g by mouth Daily Historical Provider, Active QUEtiapine (SEROquel) 200 MG tablet [id number] Take 200 mg by mouth at bedtime Historical Provider, Active QUEtiapine (SEROquel) 400 MG tablet [id number] Take 400 mg by mouth at bedtime Historical Provider, Active HPI History obtained from caregiver report from [facility] Caregiver from [facility] here with patient today SEIZURE -on lamictal [...] triceps, wrist extensors, wrist extensors, wrist flexor, meter supervisor strength 5/5. LUE Strength deltoid, biceps, triceps, wrist extensors, wrist extensors, wrist flexor, meter supervisor strength 5/5. RLE Strength illopsoas, quadriceps, tibialis [...] or CTA she would require sedation per [facility]. She had two recent falls 07/17/23 and 08/02/23. She was evaluated at [facility] ER. Lamictal dose was recently decreased, [...] seizure prevention Continue with fall precautions at [place] and assisted transfers and supervision/assistance with ambulation to avoid falls. She is at a high risk of trauma and debility associated with falls. Follow up 2 months documented in this encounter [facility] 03-10-2024 History of Present illness Narrative [...] subungual debris. They were painful to palpation 97635 on the right 68065 on the left. VASC: DP /PT were nonpalpable bilateral. Capillary refill time < 3 seconds Digits 1-5 bilateral NEURO: Story Cecy 5.07 monofilament was intact B/L. Vibratory [...] nails. MAURA Salas documented in this encounter [facility] 03-02-2024 Hospital Discharge instructions Rehana Aguillon RN - 03/02/2024 12:22 PM EST PERIOPERATIVE DISCHARGE/HOME-GOING INSTRUCTIONS ANESTHESIA - GENERAL (ADULT) If a problem arises, you may contact your physician by calling [phone] and asking for the resident humanities division chair for Dental service. Special Care Needs: Activity: [...] very uncomfortable and can t urinate, call [phone] or come to the emergency room. A [...] home going instructions. documented in this encounter [facility] 03-02-2024 Miscellaneous Notes Brief Operative Note PHE OR 3 Chantel Ascencio 29 year old female Surgical Contact Serial Number: [id number] Preoperative Diagnosis: Pre-op Diagnosis * Caries [K02.9] Postoperative Diagnosis: * Caries [K02.9] Procedures: Full mouth x-ray [84462] Prophylaxis [02553] Restorations [77321] Floride application [64651] Surgeon(s): Surgeon(s): Elmer Topete DDS Staff: Belt Repairer Nurse: Trudi Padilla Factorer: Paula Contreras DDS; [facility]aney DDS Anesthesia: General Anesthesiologist: Milton Luna MD CUTTER TENDER: Adalgisa Smith APRN-DARSHAN Supervisor Edging: Dayanna Preciado MD Specimen(s): * No specimens [...] were discussed with the patient and/or legal advertising account representative. The risks, benefits and alternatives were reviewed. Questions regarding blood transfusions were answered. The patient /or the patient s legal advertising account representative agree with the plan for transfusion of blood and/or blood components. Surgical Case Number Data Unavailable Operating Room Data Unavailable Preoperative Diagnosis(es): Caries [k02.9] Surgeon: Dr. Topete Electrolysis Investigator Surgeon: Melquiades Arias DDS - Paula Contreras [...] the treatment plan included the following: Composite denominational on tooth #7 surface ML. Amalgam restorations [...] 11:56 AM EST documented in this encounter [facility] 03-02-2024 Surgery Postoperative evaluation and management note Brief Operative Note PHE OR 3 Chantel Ascencio 29 year old female Surgical Contact Serial Number: [id number] Preoperative Diagnosis: Pre-op Diagnosis * Caries [K02.9] Postoperative Diagnosis: * Caries [K02.9] Procedures: Full mouth x-ray [00141] Prophylaxis [00978] Restorations [99916] Floride application [76130] Surgeon(s): Surgeon(s): Elmer Topete DDS Staff: Belt Repairer Nurse: Trudi Padilla Factorer: Paula Contreras DDS; Melquiades Christie DDS Anesthesia: General Anesthesiologist: Milton Luna MD CUTTER TENDER: Adalgisa Smith APRN-DARSHAN Supervisor Edging: Dayanna Preciado MD Specimen(s): * No specimens [...] Topete DDS at 03/02/2024 11:55 AM EST [facility] 03-02-2024 History and physical note Images from the original note were not included. Surgical History and Physical [facility] [address] [place] [address] Name: Chantel Ascencio : 1995 29 year old CSN: [id number] Attending: Elmer Topete DDS Date of Admission: 03/02/2024 8:38 AM Room/Bed: [facility] OR/NONE Planned Procedure: Procedure(s): DENTAL RESTORATIONS [...] surgical history indicates: EXTRACTION, TOOTH (09/15/2014) Procedure: Ferris teeth; Surgeon: Bradley Goodwin DDS; Location: PERIOPERATIVE [...] or any previous visit (from the past 33666 hours). BMP (last 3 years, up to [...] Topete DDS at 03/02/2024 11:48 AM EST [facility] Work Phone: 03-02-2024 Note Surgical History and Physical [facility] [address] [place] [address] Name: Chantel Ascencio : 1995 29 year old CSN: [id number] Attending: Elmer Topete DDS Date of Admission: 03/02/2024 8:38 AM Room/Bed: [facility] OR/NONE Planned Procedure: Procedure(s): DENTAL RESTORATIONS [...] surgical history indicates: EXTRACTION, TOOTH (09/15/2014) Procedure: Ferris teeth; Surgeon: Bradley Goodwin DDS; Location: PERIOPERATIVE [...] or any previous visit (from the past 92552 hours). BMP (last 3 years, up to [...] Melquiades Stewart DDS 03/02/24 9:38 AM [facility] 03-02-2024 History and physical note Surgical [...] Topete DDS at 03/02/2024 11:48 AM EST [employer] [facility] 03-02-2024 Note Surgical Attestation : I have [...] Melquiades Stewart DDS 03/02/2024 9:38 AM [facility] 03-02-2024 Progress note Formatting of t his note is different from the original. Blood Attestation: ATTESTATION OF INFORMED CONSENT FOR BLOOD: The transfusion of blood and/or blood components were discussed with the patient and/or legal advertising account representative. The risks, benefits and alternatives were reviewed. Questions regarding blood transfusions were answered. The patient /or the patient s legal advertising account representative agree with the plan for transfusion of blood and/or blood components. [employer] Work Phone: 03-02-2024 History of Present illness Narrative ----- Saturday, March 02, 2024 at 11:38:59 AM ----- ----- Provider: [id number] - Elmer Rebolledo DDS -- Clinic: [facility] ----- [place] notes, pt is ready for tx [place]. X-Rays look good, few cavities found and confirmed clinically. restos completed. OP Note by Paula Contreras DDS at 03/01/2024 6:14 PM Author: Paula Contreras DDS Service: Dentistry Author Type: Resident Filed: 03/02/2024 11:56 AM Date of Service: 03/01/2024 6:14 PM Note Type: OP Note Status: Cosign Needed Tank Car Loader: Paula Contreras DDS (Resident) Cosign Required: Yes Expand All Collapse All Surgical Case Number Data Unavailable Operating Room Data Unavailable Preoperative Diagnosis(es): Caries [k02.9] Surgeon: Dr. Topete Electrolysis Investigator Surgeon: Melquiades Arias DDS - Paula Contreras [...] the treatment plan included the following: Composite denominational on tooth #7 surface ML. Amalgam restorations [...] ----- Provider: Pradip Rebolledo DDS -- Clinic: [facility] ----- documented in this encounter [facility] 03-01-2024 Surgery Surgical operation note Surgical Case Number Data Unavailable Operating Room Data Unavailable Preoperative Diagnosis(es): Caries [k02.9] Surgeon: Dr. Topete Electrolysis Investigator Surgeon: Melquiades Arias DDS - Paula Contreras [...] the treatment plan included the following: Composite denominational on tooth #7 surface ML. Amalgam restorations [...] Topete DDS at 03/02/2024 11:56 AM EST [facility] 03-01-2024 Note Surgical Attestation : I have reviewed the patient's History and Physical Examination. I have personally seen and evaluated the patient, repeating cabrera portions. There is no significant interval change. Surgery is still indicated. Yes Consent reviewed and signed by patient/family: Yes Operative site verified and marked: Verified but not marked Paula Contreras DDS 03/01/2024 6:10 PM [facility] 02-24-2024 Telephone encounter Note Anesthesia consent obtained and scanned into [facility]. Sched[facility] for [facility] Miscellaneous Notes Anesthesia consent obtained and scanned into [employer]. Scheduled for surgery 03/02/2024. documented in this encounter [facility] 02-21[facility]24 Telephone encounter Note Anesthesia consent obtained and scanned into [employer]. Scheduled for surgery 03/02/2024. [facility] 11-01-2024 Miscellaneous Notes Anesthesia consent obtained and scanned into [employer]. Scheduled for surgery 03/02/2024. documented in this encounter [facility] 02-19-2024 Instructions Kelly Cabello RN - [...] otherwise contacted. ? Expect a call from [facility] one business day prior to surgery [...] your Preparing for Your Surgery/Procedure booklet or [email or web address] if you have questions. Contact the Pre-Admission Testing department at [phone] or your surgeon's office with any questions [...] stay with you after surgery. Please call [employer] if you need transportation assistance or have concerns about going home [phone]. ? PLEASE BE ON TIME. A late arrival may result in the cancellation/ delay of your surgery. Thank you for choosing [facility]; it is our pleasure to care for you documented in this encounter [facility] 02-19-2024 Evaluation note Telephone History Chantel Ascencio, [id number] 02/19/2024 Patient was identified by name and date of via Ivon, caregiver. Needs: Physical, Neck Circumference, BHCG, and ED on DOS. Note: OSH records/labs scanned to digital media manager. If the patient becomes ill prior to procedure or surgery, they are to call their provider or surgeon's office directly. 29 year old 136.6 lbs 5' 4 Date of Surgery: 03/02 Surgeon: Yoselyn Type of Surgery: DENTAL RESTORATIONS HISTORY OF PRESENT ILLNESS: telephone history for the upcoming surgery at [facility], [address] [place], enter through the [facility] entrance doors. STOP-BANG Row Name 02/19/24 1154 [...] (+) teeth problems missing Endo (+) hypothyroidism brusher tender - negative ROS Neuro/Psych (+) bipolar disorder, seizures, intellectual disability Cardiovascular - negative ROS GI/Hepatic/Renal (+) GERD Heme/Other - negative ROS PAST SURGICAL HISTORY: Past Surgical History: Procedure Laterality Date EUA, ORAL 09/15/2014 Procedure: EUA, ORAL; Surgeon: Bradley Goodwin DDS; Location: PERIOPERATIVE SERVICES; Service: Oral EXTRACTION, TOOTH Bilateral 09/15/2014 Procedure: Ferris teeth; Surgeon: Bradley Goodwin DDS; Location: PERIOPERATIVE [...] Take by mouth. Fluticasone Propionate (FLONASE NASAL) [place] into each nostril. Selenium (SELENIMIN ORAL) Take [...] otherwise contacted. ? Expect a call from [facility] one business day prior to surgery for [...] your Preparing for Your Surgery/Procedure booklet or [email or web address] if you have questions. Contact the Pre-Admission Testing department at [phone] or your surgeon's office with any questions [...] stay with you after surgery. Please call [employer] if you need transportation assistance or have concerns about going home [phone]. ? PLEASE BE ON TIME. A late arrival may result in the cancellation/ delay of your surgery. Thank you for choosing [facility]; it is our pleasure to care for you Kelly Cabello RN Time Spent Performing this Telephone History: 48 with follow-up [facility]: [facility] 02-19-2024 Miscellaneous Notes Telephone History Chantel Ascencio, [id number] 02/19/2024 Patient was identified by name and [...] telephone history for the upcoming surgery at [facility], [address] [place], [facility]. STOP-BANG Row Name 02/19/24 1154 [...] (+) teeth problems missing Endo (+) hypothyroidism brusher tender - negative ROS Neuro/Psych (+) bipolar disorder, seizures, intellectual disability Cardiovascular - negative ROS GI/Hepatic/Renal (+) GERD Heme/Other - negative ROS PAST SURGICAL HISTORY: Past Surgical History: Procedure Laterality Date EUA, ORAL 09/15/2014 Procedure: EUA, ORAL; Surgeon: Bradley Goodwin DDS; Location: PERIOPERATIVE SERVICES; Service: Oral EXTRACTION, TOOTH Bilateral 09/15/2014 Procedure: Ferris teeth; Surgeon: Bradley Goodwin DDS; Location: PERIOPERATIVE [...] Take by mouth. Fluticasone Propionate (FLONASE NASAL) [place] into each nostril. Selenium (SELENIMIN ORAL) Take [...] otherwise contacted. ? Expect a call from [facility] one business day prior to surgery for [...] your Preparing for Your Surgery/Procedure booklet or [email or web address] if you have questions. Contact the Pre-Admission Testing department at [phone] or your surgeon's office with any questions [...] stay with you after surgery. Please call [employer] if you need transportation assistance or have concerns about going home [phone]. ? PLEASE BE ON TIME. A late arrival may result in the cancellation/ delay of your surgery. Thank you for choosing [facility]; it is our pleasure to care for you Kelly Cabello RN Time Spent Performing this Telephone History: 48 with follow-up [place]: documented in this encounter [facility] 02-19-2024 Miscellaneous Notes Telephone History Chantel Ascencio, [id number] 02/19/2024 Patient was identified by name and date of via Ivon, caregiver. Needs: Physical, Neck Circumference, BHCG, and ED on DOS. Note: OSH records/labs scanned to digital media manager. If the patient becomes ill prior to procedure or surgery, they are to call their provider or surgeon's office directly. 29 year old 136.6 lbs 5' 4 Date of Surgery: 03/02 Surgeon: Yoselyn Type of Surgery: DENTAL RESTORATIONS HISTORY OF PRESENT ILLNESS: telephone history for the upcoming surgery at [facility], [address] [place], enter through the [facility] entrance doors. STOP-BANG Row Name 02/19/24 1154 [...] (+) teeth problems missing Endo (+) hypothyroidism brusher tender - negative ROS Neuro/Psych (+) bipolar disorder, seizures, intellectual disability Cardiovascular - negative ROS GI/Hepatic/Renal (+) GERD Heme/Other - negative ROS PAST SURGICAL HISTORY: Past Surgical History: Procedure Laterality Date EUA, ORAL 09/15/2014 Procedure: EUA, ORAL; Surgeon: Bradley Goodwin DDS; Location: PERIOPERATIVE SERVICES; Service: Oral EXTRACTION, TOOTH Bilateral 09/15/2014 Procedure: Ferris teeth; Surgeon: Bradley Goodwin DDS; Location: PERIOPERATIVE [...] Take by mouth. Fluticasone Propionate (FLONASE NASAL) [place] into each nostril. Selenium (SELENIMIN ORAL) Take [...] otherwise contacted. ? Expect a call from [facility] one business day prior to surgery for [...] your Preparing for Your Surgery/Procedure booklet or [email or web address] if you have questions. Contact the Pre-Admission Testing department at [phone] or your surgeon's office with any questions [...] stay with you after surgery. Please call [facility] Social Work if you need transportation assistance or have concerns about going home [phone]. ? PLEASE BE ON TIME. A late arrival may result in the cancellation/ delay of your surgery. Thank you for choosing [facility]; it is our pleasure to care for you Kelly Cabello RN Time Spent Performing this Telephone History: 48 with follow-up [facility]: documented in this encounter [facility] 10-21-2023 History and physical note Images from the original note were not included. Surgical History and Physical [facility] [address] [address] Name: Chantel Ascencio : 1995 29 year old CSN: [id number] Attending: Elmer Topete DDS Date of Admission: 03/02/2024 8:38 AM Room/Bed: [facility] OR/NONE Planned Procedure: Procedure(s): DENTAL RESTORATIONS [...] surgical history indicates: EXTRACTION, TOOTH (09/15/2014) Procedure: Ferris teeth; Surgeon: Bradley Goodwin DDS; Location: PERIOPERATIVE [...] or any previous visit (from the past 43469 hours). BMP (last 3 years, up to [...] Stewart DDS 03/02/24 9:38 AM Cosigned by Elemr Topete DDS at 03/02/2024 11:48 AM EST [...] 11:48 AM EST documented in this encounter [facility] 04-30-2022 Miscellaneous Notes Bina from [facility] calling in. She wanted to know where the pt was at on the OR wait list. E-mail sent to Connie E-mail sent 04/30/22 documented in this encounter [facility] 04-30-2022 Telephone encounter Note Bina from [facility] calling in. She wanted to know where the pt was at on the OR wait list. E-mail sent to Connie E-mail sent 04/30/22 [facility] 03-13-2022 History of Present illness Narrative ----- Sunday, March 13, 2022 at 11:58:40 AM ----- ----- Provider: [id number] Misael Coreas DMD -- Clinic: [place] ----- OR EVALUATION Patient presents for evaluation [...] available. Legal Guardian: Toshia Ascencio Phone #: [phone] NOTE: Patient had a hard time leaning her head back, but allowed me to look. Patient not indicating she is in any pain. #8 is very discolored - most likely will need RCT treatment. Gingiva very red and irritated. Caregiver did not know who patient's guardian was or contact information, looked it up in [employer]. Next Visit: OR documented in this encounter [...] in left toe(s) documented in this encounter [facility] HealthcareEvaluation note* Diagnosis Seizure disorder (CMS/HCC)- Primary Unspecified epilepsy without mention of intractable epilepsy Gait instability Abnormality of gait Pseudobulbar affect Developmental delay Unspecified delay in development Weakness Other malaise and fatigue documented in this encounter [facility] HealthcareEvaluation note* Diagnosis Onychomycosis- Primary Dermatophytosis of nail Pain in right toe(s) Pain in left toe(s) documented in this encounter [facility] HealthcareEvaluation note* Diagnosis Recurrent sinusitis- Primary Unspecified sinusitis (chronic) Recurrent sinus infections Unspecified sinusitis (chronic) Nasal congestion Other diseases of nasal cavity and sinuses [facility] assessment information available [facility] Work Phone: InstructionsNot on filedocumented in this encounter [facility] SystemReason for referral (narrative)No reason for referral information availableUniversity [facility] Work Phone: Reason for visit Narrative* Auth/Cert (Routine) Specialty Diagnoses / Procedures Referred By Alessandro t Referred To Contact Ambulatory Surgery Diagnoses Caries Caries [K02.9] Procedures INTERDENTAL FIXATION. UNLISTED PROCEDURE, DENTOALVEOLAR STRUCTURES DENTAL RESTORATIONS Elmer Topete, DDS [address] [place] [address] Phone: tel: fax: [employer] 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 Living Will 09/03/2017 4:36 PM LEGAL GURA DIANSHIP/AGREEMENT FOR CARE RUST Advance Directive Response Recorded Date/ Time Advance Directives No December 12:12pm Reason for Referral Specialty Diagnoses / Procedures Referred By Alessandro t Referred To Contact Anesthesiology Diagnoses Caries Elmer Topete, DDS [address] [place] [address] S PRE ADMISSION TESTING [address] [place] [address] Referral ID Status Reason Start Date Expiration Date V isits Requested Visits Authorized [id number] Authorized 12/27/2023 12/26/2024 1 1 Scheduling Instructions Your surgical team will reach out to you to schedule a pre-admission testing appointment. Question Answer Reason for consult? Recommended PAT Risk Score Chief Complaint and Reason for Visit Chief Complaint Admit Date R26.81 R62.50 G40.909 December 28 11:04am Chief Complaint Admit Date R26.81 R62.50 G40.909 December 28 11:04am R26.81 R62.50 G40.909 January 08 7:36am Additional Source Comments INFORMATION SOURCE (unrecogn ized section and content) DATE CREATED AUTHOR 10/16/2017 [facility] DATE CREATED AUTHOR AUTHOR'S ORGANIZ ATION 09/02/[address] [facility] DATE CREATED AUTHOR AUTHOR'S ORGANIZ ATION 01/11/2023 [facility] DATE CREATED AUTHOR AUTHOR'S ORGANIZ ATION 03/10/2024 [facility] DATE CREATED AUTHOR AUTHOR'S ORGANIZ ATION 11/27/2024 [facility] EPIC DATE CREATED AUTHOR AUTHOR'S ORGANIZ ATION 12/26/2024 [facility] DATE CREATED AUTHOR AUTHOR'S ORGANIZ ATION 01/09/2025 [facility] y[facility] Reason for Visit (unrecogniz ed section and content) Reason Onset Date Comments Dental 04/30/2022 Reason Comments Seizures Reason Onset Date Comments PAT 02/21/2024 Anesthesia conse nt obtained Reason Onset Date Comments PAT 02/24/2024 Anesthesia conse nt obtained Reason Onset Date Comments Pre-surgical Evaluation 02/26/2024 DD adult dental restorations 03/02 under [place] at [place]. PAT completed - anesthesia consent. PAT RN spoke to Mary (nurse), confirmed NPO, [place] address, and 0900 arrival time Reason Comments Toenail Problem RT grt nail fungal Reason Comments Toenail Care Non DM nail care Reason Comments Sinus Problem Nasal Congestion Specialty Diagnoses / Procedures Referred By Alessandro azul Referred To Contact Otolaryngology Diagnoses Recurrent sinus infections Nasal congestion Ref Prov, [place] [address] [facility] - [facility] [address] [place] [address], [address] [place] [address] Phone: tel: fax: Referral ID Status Reason Start Date Expiration Date Visits Requested Visits Authorized [id number] Pending Review Specialty Services Required 11/11/2024 11/11/2025 1 1 Care Teams (unrecognized sec tion and content) Dry Cleaning Attendant Relationship Specialty Start Date End Date Unallocated, May Schneider MD [address] [place] [address] [id number] PCP - General Family Medicine 07/09/23 Kris Mcguire MD [address] [place] [address] Referring Physician Neurology 07/09/23 Dry Cleaning Attendant Relationship Specialty Start Date End Date Unallocated, May Schneider MD [address] [place] [address] PCP - General Family Medicine 07/09/23 Kris Mcguire MD [address] [place] [address] Referring Physician Neurology 07/09/23 Dry Cleaning Attendant Relationship Specialty Start Date End Date Nathan Tilley MD [address] [employer] [address] [place] [address] PCP - General Family Medicine 03/10/24 Kris Mcguire MD [address] [place] [address] Referring Physician Neurology 07/09/23 Dry Cleaning Attendant Relationship Specialty Start Date End Date Nathan Tilley MD [address] [employer] [place] [address] PCP - General Family Medicine 03/10/24 Kris Mcguire MD [address] [place] [address] Referring Physician Neurology 07/09/23 Dry Cleaning Attendant Relationship Specialty Start Date End Date Nathan Tilley MD [facility] [employer] [address] [place] [address] PCP - General Family Medicine 03/10/24 Kris Mcguire MD [address] [place] [address] Referring Physician Neurology 07/09/23 Dry Cleaning Attendant Relationship Specialty Start Date End Date Nathan Tilley MD [facility] [employer] [address] [place] [address] PCP - General Family Medicine 03/10/24 Kris Mcguire MD [address] [place] [address] Referring Physician Neurology 07/09/23 Dry Cleaning Attendant Relationship Specialty Start Date End Date Nathan Tilley MD [facility] [employer] [address] [place] [address] PCP - General Family Medicine 03/10/24 Kris Mcguire MD [address] [place] [address] Referring Physician Neurology 07/09/23 Dry Cleaning Attendant Relationship Specialty Start Date End Date Nathan Tilley MD [address] [employer] [address] [place] [address] PCP - General Family Medicine 03/10/24 Kris Mcguire MD Referring Physician Neurology 07/09/23 Dry Cleaning Attendant Relationship Specialty Start Date End Date Nathan Tilley MD [facility] [employer] Systems [address] [place] [address] PCP - General Family Medicine 03/10/24 Kris Mcguire MD Referring Physician Neurology 07/09/23 Dry Cleaning Attendant Relationship Specialty Start Date End Date Ntahan Tilley MD [address] [employer] [address] [place] [address] PCP - General Family Medicine 03/10/24 Kris Mcguire MD Referring Physician Neurology 07/09/23 Dry Cleaning Attendant Relationship Specialty Start Date End Date Nathan Tilley MD [address] [employer] [address] [place] [address] PCP - General Family Medicine 03/10/24 Kris Mcguire MD Referring Physician Neurology 07/09/23 Dry Cleaning Attendant Relationship Specialty Start Date End Date Tilley Nathan DO [address] [id number] PCP - General Family Medicine 08/23/17 Team Status: Active Member Role Status Dates Nathan Tilley DO Primary Care Provider Active Team Status: Inactive Member Role Status Dates Nathan Tilley DO Primary Care Provider Active Start: December 28, 2024 End: December 28, 2024 STACIE Prado Attending Provider Active Start: December 28, 2024 End: December 28, 2024 Team Status: Inactive Member Role Status Dates Nathan Tilley DO Primary Care Provider Active Start: January 08, 2025 End: January 08, 2025 STACIE Prado Attending Provider Active Start: January 08, 2025 End: January 08, 2025 PRN Active and Recently Administ ered Medications [...] medication administration and blood draw, PACU Now Goals (unrecognized section and content) Goals may be documented in a n alternate section FOR RECORDS PERTAINING TO PATIENTS WHO ARE [...] BE BASED ON THE PRIMARY CLINICAL RECORDS. [employer] provides no warranty or guarantee of the accuracy or completeness of information in this document.
[2025-01-13 08:24] LABS: Free T3 2.27 pg/mL (2.18-3.98); Thyroid Stimulating Hormone 0.160 uIU/mL (0.358-3.740)
== END 2025-01-13 07:16 | disposition home or self-care (01) ==
LOC: LAB 07:15
PROVIDERS: PCP Family Medicine; Visit Provider Family Medicine
DX: E06.3 Autoimmune thyroiditis (principal); E04.1 Nontoxic single thyroid nodule; Z79.899 Other long term (current) drug therapy
CPT/HCPCS: 36415; 84439; 84443; 84481

== ENCOUNTER 2025-02-02 07:06 | Outpatient (OUT) | payer MEDICARE, MEDICAID, SELFPAY ==
--- OUTSIDE RECORDS SUMMARY | 2025-02-02 07:09 | XMS_ITS | Clinical Summary ---
Author Organization [facility] Address [address] [place] [address] Care Team Providers Care Training Technician Name Role Phone Nathan Iyer DO [...] Vaccine (1 - 3-dose SCDM series) 01/02/2020 Covid-19 Vaccine (1 - season) 2024 Influenza Vaccine (#1) 2024 Insurance [address] [place] [address] MEDICAID [place] Care Teams Training Technician Relationship Specialty Start Date End Date Nathan Iyer DO PCP - General Family Medicine 09/03/12
--- OUTSIDE RECORDS SUMMARY | 2025-02-02 07:09 | XMS_ITS | Encounter Summary ---
Author Organization [facility] Address [address] [place] [address] Care Team Providers Care Paster Hat Lining Name Role Phone Unavailable Primary Care Provider Unavailabl e Encounter Details Date Type Department Care Team (Late st Contact Info) Description 03/02/2024 Abstract [facility] [address] [place] [address] Paula Contreras DDS [address] [place] [address] Social History Tobacco Use Types Packs/Day Years [...] Care Team (Late st Contact Info) Description 12/22/2025 11:00 AM EDT Office Visit [facility] [address] [place] [address] Kaushal Wilson R[facility] [address] [place] [address] documented as of this encounter Procedures Procedure [...]
--- OUTSIDE RECORDS SUMMARY | 2025-02-02 07:10 | XMS_ITS | CCD ---
Author Organization [facility] Care Team Providers Care Store Clerk Cashier Name Role Phone PHYSICIAN, DEFAULT Unavailable Unavailable [...] Care Provi roselyn Kris Mcguire MD Unavailable [phone] Unallocated , [place] Provider Primary Care Jaspreet roselyn ELMER TOPETE Attending Unavailable PROVIDER, UNKNOWN Admitting Unavailable PROVIDER, UNKNOWN Admitting Unavailable PROVIDER, UNKNOWN Attending Unavailable YOSELYN, ELMER Admitting Unavailable ELMER TOPETE Attending Unavailable Iyer Nathan OLSON Primary Care Provider [phone] Maynor OLSON, Kris Unavailable Maynor OLSON, Kris Unavailable EDUARDA DE ANDA Attending Unavailable DOLCE, LAI Valentine Attending Unavailable LOWE, EDUARDA Attending Unavailable DOLCE, LAI Valentine Attending Unavailable DOLCE, LAI Valentine Attending Unavailable HILL, RADHA Attending Unavailable DOLCE, LAI Valentine Attending Unavailable Iyer DONathan Primary Care Provider PHILIP MONROY Attending Unavailable IYERNATHAN Referring Unavailable IYERNATHAN A Primary Care Unavailable Iyer DONathan Primary Care Provider Jadiel ACCOUNT SUPPORT SPECIALIST-SVP [employer] SAL[employer]-CKenisha Attending Provider Kenisha Duvall Attending Unavailable IyerNathan Primary Care Unavailable DuvallKenisha chavira E Admitting Unavailable Duvall, Kenisha Mata Admitting Unavailable Duvall, Kenisha Mata Attending Unavailable IyerNathan Primary Care Unavailable IyerNathan Primary Care Unavailable Seun De Andaa Admitting Unavailable Eduarda De Anda Attending Unavailable ДМИТРИЙ FELICIANO Referring Unavailab le Дмитрий Feliciano DO Attending Provider Allergies Allergy Classification Reported Allergen(s) Allergy Type Date of Onset Reaction(s) Facility (20 sources) Ethosuximide; Translations: [ETHOSUXIMIDE] Drug Allergy 5 Rash [facility] (1 source) Allopurinol Drug Allergy 4 [facility] (1 source) Ethosuximide Drug Allergy 4 [facility] (20 sources) linaclotide; Translations: [LINACLOTIDE] Drug Allergy 4 Unknown Reaction [facility] (1 source) Ethosuximide Drug Allergy 5 Rash [facility] (1 source) linaclotide Drug Allergy 5 Nausea And Vomiting [facility] (1 source) Ethosuximide Drug Allergy 5 [facility] (1 source) linaclotide Drug Allergy 5 [facility] Medications Current Medications Medication Drug Class(es) Dates Sig (Normalized) Sig (Original) acetaminophen 325 mg oral capsule (11 sources) Start: 12-28-2024 take 2 capsules by [...] Take by mouth. Active Acetaminophen / guaiFENesin (3 sources) Start: 12-28-2024 take 1 tablet by [...] day. Active bisacodyl 10 mg rectal suppository (4 sources) Stimulant Laxative Start: 12-28-2024 Bisacodyl (Dulcolax (Bisacodyl)) 10 mg suppository Active 10 MG WI Daily as needed for constipation December 28, [...] Active cyproheptadine hydrochloride 4 mg oral tablet (3 sources) Start: 12-29-19 take 1 tablet by [...] for sleep. Active take 1 capsule by [facility] every six hours as needed diphenhydrAMINE (COMPLETE [...] Estradiol (20 sources) Estrogen Start: 12-28-2024 take 0.0978298285519050 7 ug by mouth once daily Norethindrone-Ethin Estradiol (Nortrel 1/35 (21)) 1-35 mg-mcg (21) tablet Active 1 TAB PO Daily December 28, 2024 12:00am Complies with drug therapy Start: 12-28-2024 take 0.8808321467766 2857 ug by mouth once daily Start: [...] morning. Active guaiFENesin 20 mg/ml oral solution (5 sources) Start: 12-28-2024 take 200 mg by [...] mouth. Active ibuprofen 600 mg oral tablet (16 sources) Nonsteroidal Anti-inflammatory Drug Start: 12-28-2024 Start: 09-15-2014 take 1 tablet by luly [...] 1 tablet by mouth once daily Levothyroxine (Synthroid) 200 mcg tablet Active 200 MCG PO Daily January 27, 2025 12:00am Complies with drug therapy take 1 [...] 12/24/2024 Active mupirocin 0.02 mg/mg topical ointment (4 sources) RNA Synthetase Inhibitor Antibacterial Start: 5 Mupirocin (Centany) 2 % ointment Active 1 APPLIC TOPICAL Twice daily December 28, 2024 12:00am Complies with drug therapy mupirocin (BACTR OBAN) 2 % ointment Apply 1 Application topically 3 (three) times a day. Active ondansetron 4 mg disintegrat ing oral tablet (5 sources) Serotonin-3 Receptor Antagonist Start: 12-28-2024 Start: 03-02-2024 End: 03-02-2024 take 4 mg [...] EC tablet 02/27/2018 Active polyethylene glycol 3350 92913 mg powder for oral solution (20 sources) [...] by mouth. 0 Active sennosides, group home 8.6 mg oral tablet (17 sources) Start: 12-28-2024 Sennosides (Bl ack-Draujamart Lax-Senna) 8.6 mg tablet Active 17.2 MG [...] tablet,delayed release (DR/EC) Active 1000 MG PO Three times daily January 27, 2025 1:21pm Complies with drug therapy Start: 12-28-2024 take 4 tablets by [facility] once daily Start: 12-28-2024 End: 01-27-2025 Divalproex (Depakote) 125 mg tablet,delayed release (DR/EC) Discontinued 1000 MG PO Twice daily December 28, 2024 12:00am January 27, 2025 1:23pm Start: 10-10-2017 divalproex spr inkle (DEPAKOTE SPRINKLE) [...] or split. Active take 4 tablets by [facility] in the morning, then take 4 tablets [...] (Alternate therapy) Fluticasone Prop ionate (FLONASE NASAL) [place] into each nostril. Suspended Fluticasone Prop ionate (FLONASE NASAL) [place] into each nostril. Active Fluticasone Prop ionate (FLONASE NASAL) [place] into each nostril. 0 Active 1 ml [...] affect] Onset: 08-06-2023 08-06-2023 Chronic Developmental disorders (20 sources) Intellectual disability; Translations: [Unspecified intellectual disabilities] [...] 07-21-2022 Episodic Other aftercare (5 sources) Other superintendent container terminal (current) drug therapy; Translations: [OTH PRISON CURRENT DRUG THERAPY] Onset: 04-03-2022 Episodic Other [...] on feet] Onset: 08-06-2023 01-15-2024 Episodic Other nervous system disorders (1 source) Unsteadiness on feet; Translations: [Unsteadiness on feet] Onset: 01-08-2025 Episodic Other skin disorders (2 sources) Ingrowing [...] (1 source) Sinus Problem Onset: 12-24-2024 Unclassified (2 sources) Please arrange for MRI with General Anesthesia, [...] Range Facility Anesthesia Postprocedure [place] 03-02-2024 Hospice Art Therapist Authentication Interface Message Text Anesthesia Postoperative Assessment: [...] EVENTS: No notable events documented. Normal [facility] Anesthesia Preprocedure Eval uationon 03-02-2024 Hospice Art Therapist Authentication Interface Message Text ASA: 3 No history of anesthetic complications NPO status: Greater than 8 hours Past Medical History and Review of Systems Pulmonary (+) sleep apnea (-) non-smoker Dental ROS (+) teeth problems missing Endo (+) hypothyroidism (Gato's disease) tea blender - negative ROS Comment: - 03/02/2024 beta-HCG [...] ( Anesthesia consent obtained and scanned into [facility]. Scheduled for surgery 03/02/2024. ) Questions answered / anesthesia plan accepted ( Anesthesia consent obtained and scanned into [facility]. Scheduled for surgery 03/02/2024. ) Past medical history, surgical history, allergies, and medications reviewed. Pertinent laboratory tests, EKG, imaging, and consults reviewed and I have personally seen and evaluated the patient, repeating cabrera portions of the history and physical examination. Attestation: Anesthesia options were discussed with the patient and/or legal food service representative. The risks, benefits and alternatives were reviewed. Questions regarding anesthesia were answered. Patient and/or legal food service representative knows such anesthetics and procedures may be performed by Resident physicians, Certified Anesthesiologist Assistants, or Certified Nurse Anesthetists under the supervision of a physician. The patient /or the patient's legal food service representative agree with the plan for anesthesia. Comment: Anesthesia consent obtained and scanned into [facility]. Scheduled for surgery 03/02/2024. MHPATFORM Normal [facility] Anesthesia Transfer Of Careo n 03-02-2024 Hospice Art Therapist Authentication Interface Message Text Patient taken to [...] surgical history indicates: EXTRACTION, TOOTH (09/15/2014) Procedure: White Stone teeth; Surgeon: Bradley Goodwin DDS; Location: PERIOPERATIVE SERVICES; Service: Oral EUA, ORAL (09/15/2014) Procedure: EUA, ORAL; Surgeon: Bradley Goodwin DDS; Location: PERIOPERATIVE SERVICES; Service: Oral Allergies: Linzess [linaclotide] and Zarontin [ethosuximide] Basic Operating Room Facts: Surgeon(s): Elmer Topete DDS Anesthesiologist: Milton Luna MD METAL FURNITURE PANEL COVERER: Adalgisa Smith APRN-DARSHAN Ware Tester: Dayanna Preciado MD DENTAL RESTORATIONS (Right: Mouth) [...] of the report was received. Adalgisa Smith, ACCOUNT SUPPORT SPECIALIST-METAL FURNITURE PANEL COVERER Normal [facility] Blood Attestationon 03-02-20 Hospice Art Therapist Authentication Interface Message Text Blood Attestation: ATTESTATION OF INFORMED CONSENT FOR BLOOD: The transfusion of blood and/or blood components were discussed with the patient and/or legal food service representative. The risks, benefits and alternatives were reviewed. Questions regarding blood transfusions were answered. The patient /or the patient's legal food service representative agree with the plan for transfusion of blood and/or blood components. Normal [facility] Brief Operative Noteon 03-02 Hospice Art Therapist Authentication Interface Message Text Brief Operative Note PHE OR 3 oPnce Esteves 29 year old female Surgical Contact Serial Number: [id number] Preoperative Diagnosis: Pre-op Diagnosis * Caries [K02.9] Postoperative Diagnosis: * Caries [K02.9] Procedures: Full mouth x-ray [86861] Prophylaxis [95011] Restorations [74936] Floride application [23553] Surgeon(s): Surgeon(s): Elmer Topete DDS Staff: Bundle Collector Nurse: Trudi Padilla Community Nurse: Paula Contreras DDS; Melquiades Christie DDS Anesthesia: General Anesthesiologist: Milton Luna MD METAL FURNITURE PANEL COVERER: Adalgisa Smith APRN-DARSHAN Ware Tester: Dayanna Preciado MD Specimen(s): * No specimens [...] Contreras DDS 03/02/2024 11:48 AM Normal [facility] Progress Noteson 03-02-2024 Hospice Art Therapist Authentication Interface Message Text ----- Saturday, March 02, 2024 at 11:38:59 AM ----- ----- Provider: Pradip Rebolledo DDS -- Clinic: [facility] ----- [place] notes, pt is ready for tx [place]. X-Rays look good, few cavities found and confirmed clinically. restos completed. OP Note by Paula Contreras DDS at 03/01/2024 6:14 PM Author: Paula Contreras DDS Service: Dentistry Author Type: Resident Filed: 03/02/2024 11:56 AM Date of Service: 03/01/2024 6:14 PM Note Type: OP Note Status: Cosign Needed Railroad Track Inspector: Paula Contreras DDS (Resident) Cosign Required: Yes Expand All Collapse All Surgical Case Number Data Unavailable Operating Room Data Unavailable Preoperative Diagnosis(es): Caries [k02.9] Surgeon: Dr. Topete Inspector Plug Seam Surgeon: Melquiades Arias DDS - Paula Contreras [...] the treatment plan included the following: Composite sikh on tooth #7 surface ML. Amalgam restorations [...] at 11:57:17 AM ----- ----- Provider: Pradip - Elmer [...] Positive Positive [facility] OP Noteon 03-01-2024 Hospice Art Therapist Authentication Interface Message Text Surgical Case Number Data Unavailable Operating Room Data Unavailable Preoperative Diagnosis(es): Caries [k02.9] Surgeon: Dr. Topete Inspector Plug Seam Surgeon: Melquiades Arias DDS - Paula Contreras [...] the treatment plan included the following: Composite sikh on tooth #7 surface ML. Amalgam restorations [...] Contreras DDS 03/01/2024 6:15 PM Normal [facility] Telephone Encounteron 2023 Hospice Art Therapist Authentication Interface Message Text Anesthesia consent obtained and scanned into [facility]. Scheduled for surgery 03/02/2024. Normal [facility] Telephone Encounteron 2023 Hospice Art Therapist Authentication Interface Message Text Anesthesia consent obtained and scanned into [facility]. Scheduled for surgery 03/02/2024. Normal [facility] PAT Call Historyon Hospice Art Therapist Authentication Interface Message Text Telephone History Ponce Esteves, [id number] 02/19/2024 Patient was identified by name and date of via Ivon, caregiver. Needs: Physical, Neck Circumference, BHCG, and ED on DOS. Note: OSH records/labs scanned to [employer]. If the patient becomes ill prior to procedure or surgery, they are to call their provider or surgeon's office directly. 29 year old 136.6 lbs 5' 4 Date of Surgery: 03/02 Surgeon: Yoselyn Type of Surgery: DENTAL RESTORATIONS HISTORY OF PRESENT ILLNESS: [facility] [address] [facility] [place], enter through [facility] doors. STOP-BANG Row Name 02/19/24 1154 History [...] (+) teeth problems missing Endo (+) hypothyroidism tea blender - negative ROS Neuro/Psych (+) bipolar disorder, seizures, intellectual disability Cardiovascular - negative ROS GI/Hepatic/Renal (+) GERD Heme/Other - negative ROS PAST SURGICAL HISTORY: Past Surgical History: Procedure Laterality Date EUA, ORAL 09/15/2014 Procedure: EUA, ORAL; Surgeon: Bradley Goodwin DDS; Location: PERIOPERATIVE SERVICES; Service: Oral EXTRACTION, TOOTH Bilateral 09/15/2014 Procedure: White Stone teeth; Surgeon: Bradley Goodwin DDS; Location: PERIOPERATIVE [...] Take by mouth. Fluticasone Propionate (FLONASE NASAL) [place] into each nostril. Selenium (SELENIMIN ORAL) Take by mouth. Sennosides (SENNA) 15 MG tablet Take 1 Tab by mouth daily as needed for Constipation. topiramate (TOPIRAGEN) 25 MG tablet Take 75 mg by mouth 2 times daily (more content not included)... Normal [facility] Progress Noteson 02-17-2024 Hospice Art Therapist Authentication Interface Message Text Patient PAT has be rescheduled for 02/19/2024--for OR visit 03/02/2024----- Saturday, February 17, 2024 at 10:10:00 AM ----- ----- Provider: LESLIE [facility]-Director Of Health Care Marketing -- Clinic: [place] ----- Normal [facility] Progress Noteson 02-05-2024 Hospice Art Therapist Authentication Interface Message Text Patient was no show for PAT today at [facility] surgery is scheduled 03/02-Contact Concetta @ [facility] --advised if PAT needs to reschedule or patient will be removed from OR----- Monday, February 05, 2024 at 4:24:04 PM ----- ----- Provider: LESLIE [facility]-Director Of Health Care Marketing -- Clinic: [place] ----- Normal [facility] Progress Noteson 01-08-2024 Hospice Art Therapist Authentication Interface Message Text Parent/guardian/pat ient was contacted for PAT AND OR Sedation scheduled -- confirmed information with patient, also informed mom importance of going to PAT appointment -- if missed, IV Sedation will be cancelled, and you will be placed back on wait list 03/02/24----- Monday, January 08, 2024 at 2:14:12 PM ----- ----- Provider: LESLIE [facility]-Director Of Health Care Marketing -- Clinic: [place] ----- Normal [facility] Progress Noteson 12-30-2023 Hospice Art Therapist Authentication Interface Message Text Attempted to contact patient/ parent / guardian at telephone number listed -- no answer, left voicemail message requesting a return call.----- Saturday, December 30, 2023 at 2:26:35 PM ----- ----- Provider: LESLIE [facility]-Director Of Health Care Marketing -- Clinic: [place] ----- Normal [facility] Free T4on 01-09-2023 Free T4 [Mass/Vol] 1.12 ng/dL Normal 0.58-1.64 [facility] Comment on above: Performed By: #### 2 [id number], [id number] #### [facility] [address] [place] [address] Physician Orderon 01-09-2023 Physician Order [id number] [id number]:[id number] Normal [facility] TSHon 01-09-2023 TSH Qn 4.74 m[IU]/L Normal 0.34-5.60 [facility] Comment on above: Performed By: #### 2 [id number], [id number] #### [facility] [address] [place] [address] FREE T4on 08-29-2022 Free T4 [Mass/Vol] 1.76 ng/dL Critically high 0.76-1.46 [facility] Comment on above: Performed By: #### F T4 #### [facility] [address] [place] [address] Dr. Volodymyr Paez TSHon 08-29-2022 TSH Qn m[IU]/L Critically low 0.358-3.740 [facility] Comment on above: Performed By: #### T SH #### [facility] [address] [place] [address] Dr. Volodymyr Paez CULTURE URINEon 08-24-2022 CULTURE [...] S F Tetracycline >=16 R F Normal [facility] Comment on above: Performed By: #### T SH, CMP #### [facility] [address] [place] [address] Dr. Volodymyr Paez UA (CLEAN/CATCH) AUTO BODY REPAIR TECHNICIAN/MICRO I F IND.on 08-21-2022 Bilirubin Ql (U) Negative Normal NEGATIVE [facility] Comment on above: Performed By: #### U VERA UMICRO #### [facility] [address] [place] [address] Dr. Volodymyr Paez Clarity (U) CLEAR Normal CLEAR [facility] Comment on above: Performed By: #### U VERA UMICRO #### [facility] [address] [place] [address] Dr. oVlodymyr Paez Color (U) LT. YELLOW Normal YELLOW [facility] Comment on above: Performed By: #### U VERA UMICRO #### [facility] [address] [place] [address] Dr. Volodymyr Paez Glucose Ql (U) Negative Normal NEGATIVE [facility] Comment on above: Performed By: #### U ACSIND, UMICRO #### [facility] [address] [address] [address] Volodymyr Paez Hemoglobin Ql (U) Negative Normal NEGATIVE [facility] Comment on above: Performed By: #### U ACSIND, UMICRO #### [facility] [address] [address] [address] Volodymyr Paez Ketones Ql (U) Negative Normal NEGATIVE [facility] Comment on above: Performed By: #### U ACSIND, UMICRO #### [facility] [address] [address] [address] Volodymyr Paez LEUKOCYTES SMALL Abnormal NEGATIVE [facility] Comment on above: Performed By: #### U ACSIND, UMICRO #### [facility] [address] [address] [address] Volodymyr Paez Nitrite Ql (U) Negative Normal NEGATIVE [facility] Comment on above: Performed By: #### U ACSIND, UMICRO #### [facility] [address] [address] [address] Volodymyr Paez pH (U) 7.0 [pH] Normal 5-9 [facility] Comment on above: Performed By: #### U ACSIND, UMICRO #### [facility] [address] [address] [address] Volodymyr Paez SPEC GRAVITY 1.020 Normal 1.005-<=1.025 [facility] Comment on above: Performed By: #### U ACSIND, UMICRO #### [facility] [address] [address] [address] Volodymyr Paez UA PROTEIN Negative Normal NEGATIVE/ TRACE [facility] Comment on above: Performed By: #### U ACSIND, UMICRO #### [facility] [address] [address] [address] Volodymyr Paez UR MICRO IND INDICATED Normal [facility] Comment on above: Performed By: #### U ACSIND, UMICRO #### [facility] [address] [place] [address] Dr. Volodymyr Paez Urobilinogen Qn (U) 0.2 {Leta'U}/dL Normal 0.2 - 1. 0 [facility] Comment on above: Performed By: #### U ACSSHAHEEN, UMICRO #### [facility] [address] [place] [address] Dr. Volodymyr Paez URINE MICROSCOPIC ONLYon BACTERIA SMALL Abnormal NONE SEEN [facility] Comment on above: Performed By: #### U ACSSHAHEEN, UMICRO #### [facility] [address] [place] [address] Dr. Volodymyr Paez Bacteria identified Cx Nom (U) INDICATED Normal [facility] Comment on above: Performed By: #### U ACSSHAHEEN, UMICRO #### [facility] [address] [place] [address] Dr. Volodymyr Paez CAST NONE SEEN Normal NONE SEEN [facility] Comment on above: Performed By: #### U ACSSHAHEEN, UMICRO #### [facility] [address] [place] [address] Dr. Volodymyr Paez Crystals LM Nom (Urine sed) NONE SEEN Normal NONE SEEN [facility] Comment on above: Performed By: #### U ACSSHAHEEN, ICRO #### [facility] [address] [place] [address] Dr. Volodymyr Paez Epithelial cells LM Ql (Urine sed) MODERATE Abnormal NONE SEEN /RARE [facility] Comment on above: Performed By: #### U ACSSHAHEEN, UMICRO #### [facility] [address] [place] [address] Dr. Volodymyr Paez MUCOUS TRACE Abnormal NONE SEEN [facility] Comment on above: Performed By: #### U ACSSHAHEEN UMICRO #### [facility] [address] [place] [address] Dr. Volodymyr Paez RBC 2-5 Abnormal 0-2 [facility] Comment on above: Performed By: #### U ACSSHAHEEN, UMICRO #### [facility] [address] [place] [address] Dr. Volodymyr Paez WBC 10-20 Abnormal NONE SEEN [facility] Comment on above: Performed By: #### U ACSIND, UMICRO #### [facility] [address] [place] [address] Dr. Volodymyr Paez LAMOTRIGINEon 08-13-2022 Lamotrigine, Serum 11.2 ug/mL Normal 2.0-20.0 [facility] Comment on above: Result Comment: Dete ction Limit = 1.0 Performed By: #### T SH, CMP #### [facility] [address] [place] [address] Dr. Volodymyr Paez CBC AUTO DIFFon 08-09-2022 BASO # 0.0 103/ul Normal 0.0-0.1 [facility] Comment on above: Performed By: #### C BC #### [facility] [address] [place] [address] Dr. Volodymyr Paez Basophils/100 WBC (Bld) 0.4 % Normal 0.2-2.0 [facility] Comment on above: Performed By: #### C BC #### [facility] [address] [place] [address] Dr. Volodymyr Paez EO # 0.4 103/ul Normal 0.0-0.7 [facility] Comment on above: Performed By: #### C BC #### [facility] [address] [place] [address] Dr. Volodymyr Paez Eosinophils/100 WBC (Bld) 4.3 % Normal 0.9-7.0 [facility] Comment on above: Performed By: #### C BC #### [facility] [address] [place] [address] Dr. Volodymyr Paez Erythrocyte distribution width (RBC) [Ratio] 13.2 % Normal 11.0-15.0 [facility] Comment on above: Performed By: #### C BC #### [facility] [address] [place] [address] Dr. Volodymyr Paez Hematocrit (Bld) [Volume fraction] 40.2 % Normal 36.0-48.0 [facility] Comment on above: Performed By: #### C BC #### [facility] [address] [place] [address] Dr. Volodymyr Paez Hemoglobin (Bld) [Mass/Vol] 13.8 g/dL Normal 12.0-16.0 [facility] Comment on above: Performed By: #### C BC #### [facility] [address] [place] [address] Dr. Volodymyr Paez IG # 0.02 10e3/ul Normal 0.00-0.03 [facility] Comment on above: Performed By: #### C BC #### [facility] [address] [place] [address] Dr. Volodymyr Paez IG % 0.2 % Normal 0.0-0.5 [facility] Comment on above: Performed By: #### C BC #### [facility] [address] [place] [address] Dr. Volodymyr Paez LYMPH # 4.3 103/ul Critically high 1.2-3.8 The [facility] Comment on above: Performed By: #### C BC #### [facility] [address] [place] [address] Dr. Volodymyr Paez Lymphocytes/100 WBC (Bld) 51.8 % Normal 20.5-60.0 [facility] Comment on above: Performed By: #### C BC #### [facility] [address] [place] [address] Dr. Volodymyr Paez MANUAL DIFF REQ NO Normal The [facility] Comment on above: Performed By: #### C BC #### [facility] [address] [place] [address] Dr. Volodymyr Paez MCH (RBC) [Entitic mass] 31.0 pg Normal 26.7-34.0 [facility] Comment on above: Performed By: #### C BC #### [facility] [address] [place] [address] Dr. Volodymyr Paez MCHC (RBC) [Mass/Vol] 34.3 g/dL Normal 29.9-35.2 [facility] Comment on above: Performed By: #### C BC #### [facility] [address] [place] [address] Dr. Volodymyr Paez MCV (RBC) [Entitic vol] 90.3 fL Normal 81.0-99.0 [facility] Comment on above: Performed By: #### C BC #### [facility] [address] [address] [address] Volodymyr Paez MONO # 0.9 103/ul Critically high 0.3-0.[address] [facility] Comment on above: Performed By: #### C BC #### [facility] [address] [address] [address] Volodymyr Paez Monocytes/100 WBC (Bld) 10.4 % Normal 1.7-12.0 [facility] Comment on above: Performed By: #### C BC #### [facility] [address] [place] [address] Dr. Volodymyr Paez NEUT # 2.7 103/ul Normal 1.4-6.5 [facility] Comment on above: Performed By: #### C BC #### [facility] [address] [place] [address] Dr. Volodymyr Paez Neutrophils/100 WBC (Bld) 32.9 % Critically low 43.0-75.0 [facility] Comment on above: Performed By: #### C BC #### [facility] [address] [place] [address] Dr. Volodymyr Paez Platelet mean volume (Bld) [Entitic vol] 10.3 fL Normal 9.5-13.5 The [facility] Comment on above: Performed By: #### C BC #### [facility] [address] [place] [address] Dr. Volodymyr Paez PLT 231 103/ul Normal 150-450 [facility] Comment on above: Performed By: #### C BC #### [facility] [address] [place] [address] Dr. Volodymyr Paez RBC 4.45 106/ul Normal 4.20-5.40 [facility] Comment on above: Performed By: #### C BC #### [facility] [address] [place] [address] Dr. Volodymyr Paez WBC 8.2 103/ul Normal 4.0-11.0 [facility] Comment on above: Performed By: #### C BC #### [facility] [address] [place] [address] Dr. Volodymyr Paez DEPAKENE/ VALPROIC ACIDon DEPAKENE 80.3 ug/ml Normal 50.0-100.0 [facility] Comment on above: Performed By: #### V ALP #### [facility] [address] [place] [address] Dr. Volodymyr Paez US THYROIDon 07-10-2022 US [...] 6 mm. No follow-up required TI-RADS: The [employer] TI-RADS committee's white paper recommendations for thyroid lesions classified as TR4 (moderately suspicious) are listed below: > 1.0 cm. Follow-up ultrasound in 1, 2, 3, and 5 years. > 1.5 cm. FNA. J. Am Chidi Radiol 2017;14:[id number]. Electronically authenticated by: MATILDE WATERMAN Date: 2022-07-10 13:01 Normal The [facility] LAMOTRIGINEon 06-29-2022 Lamotrigine, Serum 14.2 ug/mL Normal 2.0-20.0 [facility] Comment on above: Result Comment: Dete ction Limit = 1.0 Performed By: #### T SH, CMP #### [facility] [address] [place] [address] Dr. Volodymyr Paez CBC AUTO DIFFon 06-27-2022 BASO # 0.1 103/ul Normal 0.0-0.1 [facility] Comment on above: Performed By: #### T SH, CMP #### [facility] [address] [place] [address] Dr. Volodymyr Paez Basophils/100 WBC (Bld) 0.7 % Normal 0.2-2.0 [facility] Comment on above: Performed By: #### T SH, CMP #### [facility] [address] [place] [address] Dr. Volodymyr Paez EO # 0.4 103/ul Normal 0.0-0.7 [facility] Comment on above: Performed By: #### T SH, CMP #### [facility] [address] [place] [address] Dr. Volodymyr Paez Eosinophils/100 WBC (Bld) 5.1 % Normal 0.9-7.0 [facility] Comment on above: Performed By: #### T SH, CMP #### [facility] [address] [place] [address] Dr. Volodymyr Paez Erythrocyte distribution width (RBC) [Ratio] 13.1 % Normal 11.0-15.0 [facility] Comment on above: Performed By: #### T AKIKO, CMP #### [facility] [address] [place] [address] Dr. Volodymyr Paez Hematocrit (Bld) [Volume fraction] 39.7 % Normal 36.0-48.0 [facility] Comment on above: Performed By: #### T SH, CMP #### [facility] [address] [place] [address] Dr. Volodymyr Paez Hemoglobin (Bld) [Mass/Vol] 13.3 g/dL Normal 12.0-16.0 [facility] Comment on above: Performed By: #### T SH, CMP #### [facility] [address] [place] [address] Dr. Volodymyr Paez IG # 0.02 10e3/ul Normal 0.00-0.03 [facility] Comment on above: Performed By: #### T SH, CMP #### [facility] [address] [place] [address] Dr. Volodymyr Paez IG % 0.3 % Normal 0.0-0.5 [facility] Comment on above: Performed By: #### T SH, CMP #### [facility] [address] [place] [address] Dr. Volodymyr Paez LYMPH # 3.6 103/ul Normal 1.2-3.8 [facility] Comment on above: Performed By: #### T SH, CMP #### [facility] [address] [place] [address] Dr. Volodymyr Paez Lymphocytes/100 WBC (Bld) 47.4 % Normal 20.5-60.0 [facility] Comment on above: Performed By: #### T SH, CMP #### [facility] [address] [place] [address] Dr. Volodymyr Paez MANUAL DIFF REQ NO Normal The [facility] Comment on above: Performed By: #### T SH, CMP #### [facility] [address] [place] [address] Dr. Volodymyr Paez MCH (RBC) [Entitic mass] 30.3 pg Normal 26.7-34.0 [facility] Comment on above: Performed By: #### T AKIKO, CMP #### [facility] [address] [place] [address] Dr. Volodymyr Paez MCHC (RBC) [Mass/Vol] 33.5 g/dL Normal 29.9-35.2 [facility] Comment on above: Performed By: #### T SH, CMP #### [facility] [address] [place] [address] Dr. Volodymyr Paez MCV (RBC) [Entitic vol] 90.4 fL Normal 81.0-99.0 [facility] Comment on above: Performed By: #### T SH, CMP #### [facility] [address] [place] [address] Dr. Volodymyr Paez MONO # 0.9 103/ul Critically high 0.3-0.[address] [facility] Comment on above: Performed By: #### T AKIKO, CMP #### [facility] [address] [place] [address] Dr. Volodymyr Paez Monocytes/100 WBC (Bld) 11.3 % Normal 1.7-12.0 [facility] Comment on above: Performed By: #### T SH, CMP #### [facility] [address] [place] [address] Dr. Volodymyr Paez NEUT # 2.7 103/ul Normal 1.4-6.5 [facility] Comment on above: Performed By: #### T SH, CMP #### [facility] [address] [place] [address] Dr. Volodymyr Paez Neutrophils/100 WBC (Bld) 35.2 % Critically low 43.0-75.0 [facility] Comment on above: Performed By: #### T SH, CMP #### [facility] [address] [place] [address] Dr. Volodymyr Paez Platelet mean volume (Bld) [Entitic vol] 11.4 fL Normal 9.5-13.5 [facility] Comment on above: Performed By: #### T SH, CMP #### [facility] [address] [place] [address] Dr. Volodymyr Paez PLT 96 103/ul Critically low 150-450 [facility] Comment on above: Result Comment: slid e made; no plt clumps seen Performed By: #### T SH, CMP #### [facility] [address] [place] [address] Dr. Volodymyr Paez RBC 4.39 106/ul Normal 4.20-5.40 [facility] Comment on above: Performed By: #### T SH, CMP #### [facility] [address] [place] [address] Dr. Volodymyr Paez WBC 7.6 103/ul Normal 4.0-11.0 [facility] Comment on above: Performed By: #### T SH, CMP #### [facility] [address] [place] [address] Dr. Volodymyr Paez FREE T4on 06-27-2022 Free T4 [Mass/Vol] 1.45 ng/dL Normal 0.76-1.46 [facility] Comment on above: Performed By: #### F T4 #### [facility] [address] [place] [address] Dr. Volodymyr Paez PROF 14(COMP METB)on 023 Albumin [Mass/Vol] 3.2 g/dL Critically low 3.4-5.0 Th e [facility] Comment on above: Performed By: #### T SH, CMP #### [facility] [address] [place] [address] Dr. Volodymyr Paez Albumin/Globulin [Mass ratio] 0.7 {ratio} Normal [facility] Comment on above: Performed By: #### T SH, CMP #### [facility] [address] [place] [address] Dr. Volodymyr Paez ALP [Catalytic activity/Vol] 65 U/L Normal 46-116 [facility] Comment on above: Performed By: #### T SH, CMP #### [facility] [address] [place] [address] Dr. Volodymyr Paez ALT [Catalytic activity/Vol] 20 U/L Normal 14-59 [facility] Comment on above: Performed By: #### T AKIKO, CMP #### [facility] [address] [place] [address] Dr. Volodymyr Paez Anion gap [Moles/Vol] 11.3 mmol/L Normal [facility] Comment on above: Performed By: #### T AKIKO, CMP #### [facility] [address] [place] [address] Dr. Volodymyr Paez AST [Catalytic activity/Vol] 25 U/L Normal 15-37 [facility] Comment on above: Performed By: #### T AKIKO, CMP #### [facility] [address] [place] [address] Dr. Volodymyr Paez Bilirubin [Mass/Vol] 0.3 mg/dL Normal 0.2-1.0 [facility] Comment on above: Performed By: #### T AKIKO, CMP #### [facility] [address] [place] [address] Dr. Volodymyr Paez Calcium [Mass/Vol] 9.5 mg/dL Normal 8.5-10.1 [facility] Comment on above: Performed By: #### T SH, CMP #### [facility] [address] [place] [address] Dr. Volodymyr Paez Chloride [Moles/Vol] 100 mmol/L Normal 98-107 [facility] Comment on above: Performed By: #### T SH, CMP #### [facility] [address] [place] [address] Dr. Volodymyr Paez CO2 [Moles/Vol] 30.1 mmol/L Normal 21.0-32.0 [facility] Comment on above: Performed By: #### T SH, CMP #### [facility] [address] [place] [address] Dr. Volodymyr Paez Creatinine [Mass/Vol] 0.92 mg/dL Normal 0.55-1.02 [facility] Comment on above: Performed By: #### T AKIKO, CMP #### [facility] [address] [place] [address] Dr. Volodymyr Paez EGFR-AF PERUVIAN >60 Normal >=60 [facility] Comment on above: Performed By: #### T SH, CMP #### [facility] [address] [place] [address] Dr. Volodymyr Paez EGFR-NON AF PERUVIAN >60 Normal >=60 [facility] Comment on above: Performed By: #### T SH, CMP #### [facility] [address] [place] [address] Dr. Volodymyr Paez Globulin (S) [Mass/Vol] 4.4 g/dL Normal [facility] Comment on above: Performed By: #### T SH, CMP #### [facility] [address] [place] [address] Dr. Volodymyr Paez Glucose [Mass/Vol] 76 mg/dL Normal 74-106 [facility] Comment on above: Performed By: #### T SH, CMP #### [facility] [address] [place] [address] Dr. Volodymyr Paez Potassium [Moles/Vol] 4.4 mmol/L Normal 3.5-5.1 [facility] Comment on above: Performed By: #### T SH, CMP #### [facility] [address] [place] [address] Dr. Volodymyr Paez Protein [Mass/Vol] 7.6 g/dL Normal 6.4-8.2 [facility] Comment on above: Performed By: #### T SH, CMP #### [facility] [address] [place] [address] Dr. Volodymyr Paez Sodium [Moles/Vol] 137 mmol/L Normal 136-145 [facility] Comment on above: Performed By: #### T SH, CMP #### [facility] [address] [place] [address] Dr. Volodymyr Paez Urea nitrogen [Mass/Vol] 7.0 mg/dL Normal 7.0-18.0 [facility] Comment on above: Performed By: #### T AKIKO, CMP #### [facility] [address] [place] [address] Dr. Volodymyr Paez Urea nitrogen/Creatinine [Mass ratio] 7.6 mg/mg Normal [facility] Comment on above: Performed By: #### T SH, CMP #### [facility] [address] [place] [address] Dr. Volodymyr Paez TSHon 06-27-2022 TSH 0.099 uIU/mL Critically low 0.358-3.740 [facility] Comment on above: Performed By: #### T AKIKO, CMP #### [facility] [address] [place] [address] Dr. Volodymyr Paez DEPAKENE/ VALPROIC ACIDon DEPAKENE 72.4 ug/ml Normal 50.0-100.0 [facility] Comment on above: Performed By: #### T SH, CMP #### [facility] [address] [place] [address] Dr. Volodymyr Paez US THYROIDon 10-25-2021 US [...] screening is still recommended. TR 4: The [employer] TI-RADS committee's white paper recommendations for thyroid lesions classified as TR4 (moderately suspicious) are listed below: > 1.0 cm. Follow-up ultrasound in 1, 2, 3, and 5 years. > 1.5 cm. FNA. J. Am Chidi Radiol 2017;14:587-595. Electronically authenticated by: KRIS MENDOZA Date: 2021-10-25 09:31 Normal [facility] FREE T4on 10-24-2021 Free T4 [Mass/Vol] 1.08 ng/dL Normal 0.76-1.46 [facility] Comment on above: Performed By: #### T SH, [facility] #### [facility] [address] [address] [address] Volodymyr Paez TSHon 10-24-2021 TSH 12.719 uIU/mL Critically high 0.358-3.740 [facility] Comment on above: Performed By: #### T SH #### [facility] [address] [address] [address] Volodymyr Paez Vital Signs Date Time Vital Sign Value Performing Clinician Facility 01-27-2025 13:12-0400 Body weight 58.74 kg Nathan Medinaring DO Work Phone: [facility] 01-27-2025 13:12-0400 Diastolic blood pressure 74 mm[Hg] Nathan Iyer DO Work Phone: [facility] 01-27-2025 13:12-0400 Heart rate 89 /min Nathan Iyer DO Work Phone: [facility] 01-27-2025 13:12-0400 SaO2% (BldA) [Mass fraction] 98 % Nathan Iyer DO Work Phone: [facility] 01-27-2025 13:12-0400 Systolic blood pressure 118 mm[Hg] Nathan Iyer DO Work Phone: [facility] 01-08-2025 08:01-0400 Body height 165.1 cm Nathan Iyer DO Work Phone: [facility] 01-08-2025 08:01-0400 Body weight 58.87 kg Nathan Iyer DO Work Phone: [facility] 01-08-2025 08:01-0400 Diastolic blood pressure 64 mm[Hg] Nathan Iyer DO Work Phone: [facility] 01-08-2025 08:01-0400 Heart rate 87 /min Nathan Iyer DO Work Phone: [facility] 01-08-2025 08:01-0400 Respiratory rate 16 /min Nathan Iyer DO Work Phone: [facility] 01-08-2025 08:01-0400 SaO2% (BldA) [Mass fraction] 97 % Nathan Iyer DO Work Phone: [facility] 01-08-2025 08:01-0400 Systolic blood pressure 113 mm[Hg] Nathan Iyer DO Work Phone: [facility] 11-24-2024 10:00-0400 Body height 165.1 cm Lai Alvarado DPM FACFAS Work Phone: [facility] 11-24-2024 10:00-0400 Body mass index (BMI) [Ratio] 21.3 kg/m2 Lai Alvarado DPM FACFAS Work Phone: [facility] 11-24-2024 10:00-0400 Body weight 58.06 kg Lai Dolce DPM FACFAS Work Phone: [facility] 11-24-2024 10:00-0400 Diastolic blood pressure 63 mm[Hg] Lai Dolce DPM FACFAS Work Phone: [facility] 11-24-2024 10:00-0400 Heart rate 70 /min Lai Dolce DPM FACFAS Work Phone: [facility] 11-24-2024 10:00-0400 Systolic blood pressure 115 mm[Hg] Lai Dolce DPM FACFAS Work Phone: [facility] 08-25-2024 11:03-0400 Body height 165.1 cm Lai Dolce DPM FACFAS Work Phone: [facility] 08-25-2024 11:03-0400 Body mass index (BMI) [Ratio] 21.3 kg/m2 Lai Dolce DPM FACFAS Work Phone: [facility] 08-25-2024 11:03-0400 Body weight 58.06 kg Lai Dolce DPM FACFAS Work Phone: [facility] 08-25-2024 11:03-0400 Diastolic blood pressure 64 mm[Hg] Lai Dolce DPM FACFAS Work Phone: [facility] 08-25-2024 11:03-0400 Heart rate 71 /min Lai Dolce DPM FACFAS Work Phone: [facility] 08-25-2024 11:03-0400 Systolic blood pressure 110 mm[Hg] Lai Dolce DPM FACFAS Work Phone: [facility] 08-11-2024 10:16-0400 Body height 165.1 cm Eduarda Lowe PA Work Phone: [facility] 08-11-2024 10:16-0400 Body mass index (BMI) [Ratio] 21.47 kg/m2 Eduarda Lowe PA Work Phone: [facility] 08-11-2024 10:16-0400 Body weight 58.51 kg Eduarda Lowe PA Work Phone: [facility] 08-11-2024 10:16-0400 Diastolic blood pressure 62 mm[Hg] Eduarda Lowe PA Work Phone: [facility] 08-11-2024 10:16-0400 Systolic blood pressure 106 mm[Hg] Eduarda Lowe PA Work Phone: [facility] 06-10-2024 10:24-0500 Body height 165.1 cm Lai Alvarado DPM FACFAS Work Phone: [facility] 06-10-2024 10:24-0500 Body mass index (BMI) [Ratio] 21.47 kg/m2 Lai Alvarado DPM FACFAS Work Phone: [facility] 06-10-2024 10:24-0500 Body weight 58.51 kg Lai Alvarado DPM FACFAS Work Phone: [facility] 06-10-2024 10:24-0500 Diastolic blood pressure 72 mm[Hg] Lai Alvarado DPM FACFAS Work Phone: [facility] 06-10-2024 10:24-0500 Heart rate 74 /min Lai Alvarado DPM FACFAS Work Phone: [facility] 06-10-2024 10:24-0500 Systolic blood pressure 120 mm[Hg] Lai Alvarado DPM FACFAS Work Phone: [facility] 06-03-2024 09:45-0500 Body height 165.1 cm Eduarda Lowe PA Work Phone: [facility] 06-03-2024 09:45-0500 Body mass index (BMI) [Ratio] 21.47 kg/m2 Eduarda Lowe PA Work Phone: [facility] 06-03-2024 09:45-0500 Body weight 58.51 kg Eduarda Lowe PA Work Phone: [facility] 03-10-2024 11:19-0500 Body height 165.1 cm Lai Alvarado DPM FACFAS Work Phone: [facility] 03-10-2024 11:19-0500 Body mass index (BMI) [Ratio] 21.3 kg/m2 Lai Alvarado DPM FACFAS Work Phone: [facility] 03-10-2024 11:19-0500 Body weight 58.06 kg Lai Alvarado DPM FACFAS Work Phone: [facility] 03-10-2024 11:19-0500 Diastolic blood pressure 72 mm[Hg] Lai Alvarado DPM FACFAS Work Phone: [facility] 03-10-2024 11:19-0500 Heart rate 88 /min Lai Alvarado DPM FACFAS Work Phone: [facility] 03-10-2024 11:19-0500 Systolic blood pressure 115 mm[Hg] Lai Alvarado DPM FACFAS Work Phone: [facility] 03-02-2024 12:30-0500 Body temperature 98.1 [degF] Elmer Samaniegoi DDS Work Phone: [facility] 03-02-2024 12:30-0500 Diastolic blood pressure 73 mm[Hg] Elmer Samaniegoi DDS Work Phone: [facility] 03-02-2024 12:30-0500 Heart rate 113 /min Elmer Samaniegoi DDS Work Phone: [facility] 03-02-2024 12:30-0500 Respiratory rate 19 /min Elmer Samaniegoi DDS Work Phone: [facility] 03-02-2024 12:30-0500 SaO2% (BldA) [Mass fraction] 98 % Elmer Samaniegoi DDS Work Phone: [facility] 03-02-2024 12:30-0500 Systolic blood pressure 113 mm[Hg] Elmer Samaniegoi DDS Work Phone: [facility] 03-02-2024 09:11-0500 Body height 162.6 cm Elmer Samaniegoi DDS Work Phone: [facility] 03-02-2024 09:11-0500 Body mass index (BMI) [Ratio] 23.45 kg/m2 Elmer Topete DDS Work Phone: [facility] 03-02-2024 09:11-0500 Body weight 61.96 kg Elmer Topete DDS Work Phone: [facility] 02-19-2024 11:00-0400 Body height 162.6 cm Kelly Cabello RN [facility] 02-19-2024 11:00-0400 Body mass index (BMI) [Ratio] 23.45 kg/m2 Kelly Cabello RN [facility] 02-19-2024 11:00-0400 Body weight 61.96 kg Kelly Cabello RN [facility] 01-21-2024 11:05-0400 Diastolic blood pressure 72 mm[Hg] Radha AMADOR Work Phone: [facility] 01-21-2024 11:05-0400 Heart rate 92 /min Radha AMADOR Work Phone: [facility] 01-21-2024 11:05-0400 Respiratory rate 16 /min Radha AMADOR Work Phone: [facility] 01-21-2024 11:05-0400 SaO2% (BldA) [Mass fraction] 96 % Radha AMADOR Work Phone: [facility] 01-21-2024 11:05-0400 Systolic blood pressure 118 mm[Hg] Radha Lombardi PA Work Phone: [facility] Healthcare Encounters Encounter Date Encounter Type Care Provider Facility Start: 02-26-2025 ambulatory ДМИТРИЙ [facility] Start: 01-27-2025 End: 01-27-2025 ambulatory Nathan Iyer DO Work Phone: [facility] Work Phone: Start: 01-27-2025 End: 01-27-2025 Patient encounter procedure Дмитрий Ruano DO -[facility] Work Phone: Start: 01-08-2025 End: 01-08-2025 Patient encounter procedure Kenisha Duvall ACCOUNT SUPPORT SPECIALIST[employer]-[facility] [place] Start: 01-08-2025 End: 01-08-2025 ambulatory Nathan Iyer DO Work Phone: [facility] Work Phone: Start: 12-28-2024 End: 12-28-2024 Departed Referred Kenisha Duvall ACCOUNT SUPPORT SPECIALIST[employer] -Pre-Surgical Testing Work Phone: Start: 12-28-2024 End: 12-28-2024 Patient encounter procedure Kenisha Duvall ACCOUNT SUPPORT SPECIALIST[employer] -Pre-Surgical Testing Work Phone: Start: 12-28-2024 End: 12-28-2024 ambulatory Nathan Iyer DO Work Phone: [facility] Work Phone: Start: 12-24-2024 End: 12-24-2024 Office outpatient new 30 minutes Philip Monroy PA-C Work Phone: [facility] Comment on above: Recurrent sinusitis (Primary Dx); Recurrent sinus infections; Nasal congestion Start: 12-24-2024 End: 12-24-2024 ambulatory PHILIPANGELICA MONROY [facility] Start: 11-24-2024 End: 11-24-2024 Bamboo flowsheet Lai D Dolce DPM FACFAS Work Phone: [facility] Start: 11-24-2024 End: 11-24-2024 Bamboo flowsheet Lai D Dolce DPM FACFAS Work Phone: [facility] Start: 11-24-2024 End: 11-24-2024 ambulatory LAI D DOLCE Not Available Start: 11-24-2024 End: 11-24-2024 Patient encounter procedure Lai D Dolce DPM FACFAS Work Phone: [facility] Comment on above: Onychomycosis (Prima ry Dx); Pain in right toe(s); Pain in left toe(s) Start: 10-01-2024 End: 10-01-2024 ambulatory Nathan Iyer Facility:[facility] Start: 08-25-2024 End: 08-25-2024 Bamboo flowsheet [...] Phone: [facility] Start: 08-11-2024 End: 08-11-2024 Bamboo flowsheet Eduarda Lowe PA Work Phone: [facility] Start: 08-11-2024 End: 08-11-2024 Office outpatient visit 25 minutes Eduarda Lowe PA Work Phone: [facility] Comment on above: Seizure disorder (CM S/HCC) (Primary Dx); Gait instability; Pseudobulbar affect; Developmental delay; Weakness Start: 08-11-2024 End: 08-11-2024 ambulatory EDUARDA LOWE Not Available Start: 06-10-2024 End: 06-10-2024 Bamboo flowsheet Lai Alvarado DPM FACFAS Work Phone: [facility] Start: 06-10-2024 End: 06-10-2024 Bamboo flowsheet Lai Alvarado DPM FACFAS Work [...] instability Start: 06-03-2024 End: 06-03-2024 ambulatory EDUARDA DE ANDA Not Available Start: 03-10-2024 End: 03-10-2024 Bamboo [...] Elmer Topete DDS Work Phone: [facility] Start: 03-02-2024 End: 03-02-2024 Subsequent hospital visit by physician Elmer Topete DDS Work Phone: [facility] Start: 03-02-2024 End: 03-02-2024 ambulatory [facility] Facility:[facility] Start: 02-26-2024 End: 02-26-2024 Telephone encounter Kelly Cabello RN [facility] Pre-Admission Testing Comment on above: Pre-surgical Evaluat ion (DD adult dental restorations 03/02 under [place] at [place]. PAT completed - anesthesia consent. PAT RN spoke to Mary (nurse), confirmed NPO, [place] address, and 0900 arrival time/) Start: 02-24-2024 End: 02-24-2024 Telephone encounter Ashleigh Kaplan RN [facility] Pre-Admission Testing Comment on above: PAT (Anesthesia cons ent obtained) Start: 02-21-2024 End: 02-21-2024 Telephone encounter Ashleigh Kaplan RN [facility] Pre-Admission Testing Comment on above: PAT (Anesthesia cons ent obtained) Start: 02-19-2024 End: 02-19-2024 Nursing evaluation of patient and report Kelly Cabello RN [facility] Pre-Admission Testing Comment on above: Pre-op evaluation (P rimary Dx) Start: 02-19-2024 End: 02-19-2024 Preprocedural examination done Kelly Cabello RN [facility] Start: 02-19-2024 ambulatory UNKNOWN PROVIDER Facili ty:[facility] Start: 02-19-2024 Encounter for other preprocedural examination UNKNOWN PROVIDER [facility] Start: 02-05-2024 End: 02-05-2024 Patient encounter procedure Refugio Evansdayamiherlinda ACCOUNT SUPPORT SPECIALIST-BILLPOSTER Work Phone: [facility] Pre-Admission Testing Comment on above: NO SHOW (Primary Dx) Start: 01-21-2024 End: 01-21-2024 Bamboo flowsheet Radha AMADOR Work Phone: [facility] [address] Start: 01-21-2024 End: 01-21-2024 Bamboo flowsheet Radha AMADOR [facility] [address] Start: 01-21-2024 End: 01-21-2024 ambulatory RADHA LOMBARDI Not Available Start: 01-21-2024 End: 01-21-2024 Office outpatient visit 15 minutes Radha AMADOR Work Phone: [facility] Comment on above: Seizure disorder (CM S/HCC) (Primary Dx); Mental deficiency (CMS/HCC); Autism (CMS/HCC); Pseudobulbar affect; Gait instability Start: 12-27-2023 End: 12-27-2023 Admission to same day surgery center Mikeyandel Weber DDS Work Phone: [facility] Start: 01-09-2023 End: 01-10-2023 ambulatory NATHAN IYER Facility:[facility] Start: 08-29-2022 End: 08-30-[address] NATHAN IYER Facility: Start: 08-21-2022 End: 08-21-[address] DOCTOR JAVED Facility:[facility] Start: 08-09-2022 End: 08-10-[address] NATHAN IYER Facility: Start: 07-21-2022 End: 07-21-[address] UMAIR Leung Facility: Start: 07-10-2022 End: 07-11-[address] DOCTOR JAVED Facility:[facility] Start: 06-27-2022 End: 06-28-[address] PAM ABDUL Facility: Start: 04-30-2022 Telephone encounter Martha dill DMD Work Phone: [facility] Comment on above: Dental Start: 04-03-2022 End: 04-04-[address] NATHAN IYER Facility: Start: 03-13-2022 End: 03-18-2022 Patient encounter procedure Martha Coreas DMD Work Phone: [facility] Start: 10-24-2021 End: 10-25-[address] DOCTOR JAVED Facility: Start: 11-07-2016 End: 11-08-2016 Ambulatory DEFAULT PHYSICIAN Facility:[facility] Procedures Date Procedure Procedure Detail Performing Clinician Start: 03-02-2024 End: 03-02-2024 Urine test visual color cmprsn neos Milton Luna MD Work Phone: Plan of Treatment Date Care Activity Detail Author Start: 2043 Shingles (RZV) Vacci ne (1 of 2) Shingles (RZV) Vaccine (1 of 2) [facility] Start: 02-24-2025 End: 02-24-2025 Patient encounter procedure 02/24/2025 9:30 AM EST Office Visit [facility] Department of [facility] [address] [place] [phone] Shanna Del Valle MD [address] [place] [address] [facility] Department of [facility] Start: 02-23-2025 End: 02-23-2025 Patient encounter procedure 02/23/2025 9:30 AM EST Procedure Visit [facility] [address] [place] [phone] Lai Alvarado, DPM FACFAS [address] [place] [address] [facility] Start: 02-17-2025 End: 02-17-2025 Patient encounter procedure 02/17/2025 2:45 PM EDT Office Visit [facility] [address] [place] [address] Philip Monroy, PA-C [address] [address] [facility] Start: 01-08-2025 OR CAT/MRI W/ IV SEDATION (Not Applicable) OR CAT/MRI W/ IV SEDATION (Not Applicable) [facility] Start: 12-21-2024 Influenza vaccination [facility] Start: 11-03-2024 End: 11-03-2024 Patient encounter procedure 11/03/2024 11:00 AM EDT Procedure Visit [facility] [address] [place] [address] Lai Alvarado, DPM FACFAS [address] [facility] [place] [address] [facility] Start: 08-25-2024 End: 08-25-2024 Patient encounter procedure [facility] Comment on above: Arrived Start: 08-19-2024 End: 08-19-2024 Patient encounter procedure 08/19/2024 11:00 AM EDT Procedure Visit [facility] [address] [facility] [place] [address] Lai Alvarado, DPM FACFAS [address] [facility] [place] [address] [facility] Start: 08-11-2024 End: 08-11-2024 Patient encounter procedure [facility] Comment on above: Arrived Start: 06-10-2024 End: 06-10-2024 Patient encounter procedure [facility] Comment on above: Arrived Start: 05-12-2024 End: 05-12-2024 Patient encounter procedure 05/12/2024 11:20 AM EST Office Visit [facility] [address] [facility] [address] [address] [place] [address] Radha Lombardi PA [address] [place] [address] [facility] Start: 03-02-2024 End: 03-02-2024 Admission to same day surgery center 03/02/2024 9:14 AM EST - 03/02/2024 10:58 AM EST Surgery [facility] [address] [place] [address] Elmer Topete, VIANNEY [address] [place] [address] DENTAL RESTORATIONS [facility] Comment on above: DENTAL RESTORATIONS Start: 03-02-2024 End: 03-02-2024 DENTAL RESTORATIONS [facility] Start: 03-02-2024 End: 03-02-2024 Admission to same day surgery center 03/02/2024 7:40 AM EST - 03/02/2024 9:24 AM EST Surgery [facility] [address] [place] [address] Elmer Topete, DDS [address] [place] [address] DENTAL RESTORATIONS [facility] Comment on above: DENTAL RESTORATIONS Start: 03-02-2024 End: 03-02-2024 DENTAL RESTORATIONS DENTAL RESTORATIONS Routine scheduled Caries 03/02/2024 7:40 AM EST [facility] Start: 03-02-2024 Subsequent hospital visit by physician [facility] Start: 03-02-2024 End: 03-02-2024 Patient encounter procedure [facility] Start: 02-05-2024 End: 02-05-2024 Patient encounter procedure 02/05/2024 9:15 AM EDT Office Visit [facility] Pre-Admission Testing [address] [place] [address] Refugio Ferrell, ACCOUNT SUPPORT SPECIALIST-BILLPOSTER [address] [facility] [address] [facility] Pre-Admission Testing Start: 01-21-2024 Influenza vaccination Influenza Vacc ine (#1) [facility] Start: 01-21-2024 End: 01-20-2025 Lamotrigine level Lamotrigine level Lab Routine Seizure disorder (CMS/HCC) Expected: 01/21/2024 (Approximate), Expires: 01/20/2025 [facility] Work Phone: Comment on above: Expected: 01/21/2024 (Approximate), Expires: 01/20/2025 Start: 01-21-2024 End: 01-20-2025 Valproic acid level, total Valproic acid level, total Lab Routine Seizure disorder (CMS/HCC) Expected: 01/21/2024 (Approximate), Expires: 01/20/2025 [facility] Comment on above: Expected: 01/21/2024 (Approximate), Expires: 01/20/2025 Start: 12-22-2023 COVID-19 Vaccine () COVID-19 Vaccine ( season) [facility] Start: 12-22-2023 COVID-19 Vaccine () COVID-19 Vaccine () [facility] Start: 12-22-2023 Influenza vaccination Influenza Vacc ine (#1) [facility] Start: 2023 Screening for malign ant neoplasm of cervix [facility] Start: 01-20-2022 Influenza vaccination Influenza Vacc ine (#1) [facility] Start: 06-10-2021 DTaP,Tdap and Td Vaccines (3 - Td or Tdap) DTaP,Tdap and Td Vaccines (3 - Td or Tdap) [facility] Start: 07-19-2020 COVID-19 Vaccine (3 - Booster for Pfizer series) COVID-19 Vaccine (3 - Booster for Pfizer series) [facility] Start: 01-02-2020 HPV Vaccine (optiona l start 27-45 years) HPV Vaccine (optional start 27-45 years) [facility] Start: 2014 Screening for malign ant neoplasm of cervix Pap Smear [facility] Start: 12-21-2013 Annual wellness visit Annual [facility] Visit ([id number]) [facility] Start: 01-02-2012 Hepatitis A (HAV) Vaccine (optional start 19+ years) Hepatitis A (HAV) Vaccine (optional start 19+ years) [facility] Start: 01-02-2012 Hepatitis B vaccination Hepati tis B (HBV) Vaccine (1 of 3 - 19+ 3-dose series) [facility] Start: 2011 Adult BMI Screening Adult BMI Screen ing [facility] Start: 2011 Hepatitis C screening Hepatitis C An tibody [facility] Start: 2011 Tetanus + diphtheria + acellular pertussis vaccine (product) Tdap Booster [facility] Start: 01-02-2008 HIV screening HIV Test [facility] Start: 2005 Depression Screening Depression Scre ening [facility] Start: 2005 Tobacco Screening Tobacco Screening [facility] Start: 1993 Medicare Annual Wellness (AWV) Medicare Annual Wellness (AWV) [facility] DENTAL RESTORATIONS DENTAL MEENA RATIONS Routine scheduled Caries [facility] Patient referral [facility] Work Phone: Payers Date Payer Category Payer Self-pay 2024 Medicare [id number] 2014 Dental --Stand Alone DENTAL-MEDI CAID [id number] 2014 Unknown 2013 Medicaid [id number]. [id number] 2012 Medicare [id number] [id number]. [id number] 2012 Medicare FFS MEDICARE [id number] 1993 Unknown [id number] 2.16.840.1.690541.3.579.2.7 32 1993 Unknown [id number] 2.16.840.1.678873.3.579.2.7 32 1993 Unknown [id number] 2.16.840.1.754428.3.579.2.7 32 1993 Unknown [id number] 2.16.840.1.261693.3.579.2.1 259 1993 Unknown [id number] 2.16.840.1.458938.3.579.2.1 259 1993 Unknown [id number] 2.16.840.1.368429.3.579.2.1 259 1993 Unknown [id number] 2.16.840.1.942852.3.579.2.1 259 1993 Unknown [id number] 2.16.840.1.315208.3.579.2.1 259 1993 Unknown [id number] 2.16.840.1.447697.3.579.2.1 259 1993 Unknown [id number] 2.16.840.1.696709.3.579.2.1 259 1993 Unknown [id number] 2.16.840.1.174036.3.579.2.1 286 1959 Medicaid [id number] 1959 Medicare [id number] 1954 Unknown [id number] 2.16.840.1.429069.3.579.2.5 93 1954 Unknown [id number] 2.16.840.1.406674.3.579.2.5 93 1954 Unknown [id number] 2.16.840.1.041658.3.579.2.5 93 1954 Unknown [id number] 2.16.840.1.636465.3.579.2.5 93 1954 Unknown [id number] 2.16.840.1.718441.3.579.2.5 93 1954 Unknown [id number] 2.16.840.1.022417.3.579.2.5 93 1954 Unknown [id number] 2.16.840.1.980182.3.579.2.5 93 1954 Unknown [id number] 2.16.840.1.569850.3.579.2.5 93 Unknown [id number] 2.16.840.1.818716.3.579.2.7 27 Unknown [facility] [id number] Unknown [id number] 2.16.840.1.453419.3.579.2.5 31 Unknown [id number] 2.16.840.1.625880.3.579.2.5 31 Unknown [id number] 2.16.840.1.018071.3.579.2.5 31 Social History Date Type Detail Facility Tobacco smoking stat [facility] Tobacco smoking consumption unknown [facility] Start: 1995 Sex Assigned At Not on file [facility] Start: 06-02-2020 End: 10-01-2023 Gender identity Not on file [facility] Start: 08-06-2023 End: 01-08-2025 Tobacco smoking status CTIS Never smoked tobacco [facility] Start: 09-03-2017 End: 08-06-2023 Tobacco use and exposure Smokeless tobacco non-user [facility] Start: 10-01-2023 End: 11-24-2024 Alcoholic beverage intake Lifetime non-drinker (finding) [facility] Start: 06-02-2020 End: 10-01-2023 History of Social function [facility] Start: 07-06-2014 End: 08-15-2017 Sex Female (finding) [facility] Start: 07-01-2019 Alcoholic beverage intake Current non-drinker of alcohol (finding) [facility] Adolescent depressio n screening assessment 0 [facility] Start: 1995 Sex Assigned At Female F [facility] Goals Date Patient Goal Desired Activity /State Clinical Notes 03-13-2022 to 01-20-2025 Note Date & Type Note Facility 10-01-2025 Evaluation note Diagnosis Onset Date Resolution Autism acute January 27, 2 025 12:36pm Mental deficiency acute January 27, 2025 12:36pm Gait instability chronic January 27, 2025 12:36pm Seizure disorder chronic January 27, 2025 12:36pm [facility] Work Phone: [phone]) 863-757709-04-2025 History of Present illness Narrative* Philip Monroy PA-C - 12/24/2024 10:15 AM EDT [facility] [address] [facility] [place] [address] SUBJECTIVE: Patient ID (1995): Ponce Esteves is a 29 y.o. female presents today for Chief Complaint Patient presents with Sinus Problem Nasal Congestion HPI: Ponce is seen as a new patient in consultation for recurrent sinusitis and chronic nasal congestion. She is present with her mother and caregiver who provide the history. She has a history of autism and developmental delay and resides at [facility]. Mom reports that Ponce experiences chronic nasal congestion, drainage and frequent [...] be light sensitive. It is unclear if Ponce takes daily antihistamines, though her mother mentions she might be takingClaritin. The use of nasal sprays is uncertain, but the patient does use eye drops for her dry eyesas needed. Ponce has no history of ENT-related surgeries such as sinus surgery, tonsillectomy or ear tube placement. She has not had sinus imaging. Mom notes that she is scheduled for a brain MRI to be completed at [facility] [place] next week which has to be done with sedation. HISTORY: Past Medical History: Diagnosis Date Abnormal ultrasound ADHD (attention deficit hyperactivity disorder) Allergic Alopecia Anxiety Anxiety disorder 09/03/2017 Autism Developmental delay 09/03/2017 Dysphagia 09/03/2017 Gato's disease History of seizure 09/03/2017 History of seizures Hypothyroidism Mental retardation Pervasive developmental disorder Pica RUQ abdominal pain Seizures (CMS-HCC) Sleep apnea Strabismus Thickening of wall of gallbladder Thyroid nodule LEFT Vomiting 09/03/2017 Weight loss Past Surgical History: Procedure Laterality Date EGD N/A 2018 Performed by Destiney Magaña MD at [facility] Family History Problem [...] (10 mg total) into the rectum as neededfor constipation. busPIRone (BUSPAR) 10 mg tablet 1 tablet (10 mg total) in the morning and 1 tablet (10 mg total) atnoon and 1 tablet (10 mg total) before [...] total) by mouth in the morning and 1capsule (100 mg total) at noon and 1 [...] total) by mouth every 6 (six) hours asneeded for pain. lamoTRIgine (LaMICtal XR) 300 mg [...] 2 (two) times a day with meals. (Patientnot taking: Reported on 12/24/2024) minoxidil (ROGAINE) 5 [...] Normal respiratory effort. Neurologic: Grossly normal ASSESSMENT/PLAN: Ponce was seen today for sinus problem and nasal congestion. Diagnoses and all orders for this visit: Recurrent sinusitis Recurrent sinus infections - [facility] [place], [place] - [facility] [place], [place]; Future Nasal congestion - [facility] - [place], [place] - [facility] [place], [place]; Future - azelastine (ASTELIN) 137 mcg (0.1 %) nasal spray; Administer 2 sprays into each nostril in the morning and 2 sprays before bedtime. Use in each nostril as directed. - mometasone (NASONEX) 50 mcg/actuation nasal spray; Administer 2 sprays into each nostril in the morning. Plan: Ponce Esteves was seen and evaluated. Examination was limited [...] insight can be gathered as opposed to orderingCT sinus which patient will most likely require sedation to complete. -return for follow-up in 4-6 weeks, advised to call sooner with concerns. All questions were addressed, mom agrees to this plan. Provider Statement: I PHILIP MONROY PA-C personally performed the services described in the documentation as described by the above named scribe in my presence. It is both accurate and complete at the time of final signature. Philip Monroy PA-C 12/24/2024 12:17 PM Counseling: The following elements of medical decision making were considered during this visit: Prescription drug management and Reviewed and summarized previous records and Low risk of morbidity from additional diagnostic testing or treatment. The patient was counseled regarding prognosis, risks and benefitsof treatment options, impressions, importance of compliance with treatment and risk factor reductions. The patient verbalized understanding and agreement to the plan. Please note that parts of this chart were generated using voice recognition M*Modal dictation software. Although every effort was made to ensure the accuracy of this automated advertising vice president, some errors in advertising vice president may have occurred. Philip Monroy PA-C 12/24/24 1224 documented [facility] History of Present illness Narrative* Lai Alvarado DPM FACFAS - 11/24/2024 9:30 AM EDT Images from the original note were not included. patient: Ponce Esteves : 1995 PCP: Nathan Iyer MD SUBJECTIVE [...] affect 08/06/2023 Gait instability 08/06/2023 Seizure disorder ([facility]) Mental disability 01/15/2024 Resolved Ambulatory Problems Diagnosis [...] subungual debris. They were painful to palpation [id number] on the right 55452 on the left. VASC: DP /PT were nonpalpable bilateral. Capillary refill time < 3 seconds Digits 1-5 bilateral NEURO: [place] Cecy 5.07 monofilament was intact B/L. Vibratory [...] 1through 10. MAURA Salas documented in this [facility]jyc[facility]jkcc[facility]-07-[facility] History of Present illness Narrative* MAURA Salas - 08/25/2024 11:00 AM EDT Images from the original note were not included. patient: Ponce Esteves : 1995 PCP: Nathan Iyer MD SUBJECTIVE This is a 29 y.o. female that presents today with a chief complaint of painful elongated nails digits 1 through 10. They cause marked limitation in ambulation due to pain and pressure from shoe gear. Allergies: Allergies Allergen Reactions Linzess [Linaclotide] Ethosuximide Rash Past Medical History: Past Medical History: Diagnosis Date Anxiety Autism ([facility]) Disturbance of salivary secretion Mood [...] subungual debris. They were painful to palpation 48877 on the right 91618 on the left. VASC: DP /PT were nonpalpable bilateral. Capillary refill time < 3 seconds Digits 1-5 bilateral NEURO: [place] Cecy 5.07 monofilament was intact B/L. Vibratory [...] 1through 10. MAURA Salas documented in this [facility]04-22-2025 History of Present illness Narrative* PERRY Vazquez - 08/11/2024 10:40 AM EDT Romelia Esteves is a 29 y.o. year old female [...] Review Audit Reviewed by Freida Amezquita MA (Profile Saw Operator) on 08/11/24 at 1017 Medication Order Taking? Sig Documenting Provider Last Dose Status ammonium lactate (Amlactin) 12 % cream [id number] Apply 2 application topically Daily Patient not taking: Reported on 06/03/2024 Historical MD Jennie Active busPIRone (Buspar) 30 MG tablet [id number] Take 30 mg by mouth in the morning and 30 mg in the evening and 30 mg before bedtime. Real Schneider MD Active cloNIDine (Catapres) 0.2 MG tablet [id number] Take 0.2 mg by mouth in the morning and 0.2 mg at noon and 0.2 mg in the evening and 0.2 mg before bedtime. Real Schneider MD Active divalproex (Depakote) 125 MG EC tablet [id number] Take 500 mg by mouth in the morning and 500 mg in the evening and 500 mg before bedtime. Real Schneider MD Active divalproex (Depakote) 125 MG EC tablet [id number] Take 1,000 mg by mouth at bedtime Do not crush, chew, or split. Historical MD Jennie Active famotidine (Pepcid) 40 MG tablet [id number] Take 40 mg by mouth Daily Real Schneider MD Active guanFACINE (Tenex) 2 MG tablet [id number] Take 2 mg by mouth in the morning and 2 mg before bedtime. Real Schneider MD Active lamoTRIgine (LaMICtal) 100 MG tablet [id number] Take 100 mg by mouth at bedtime Real Shcneider MD Active lamoTRIgine (LaMICtal) 150 MG tablet [id number] Take 150 mg by mouth in the morning. Real Schneider MD Active levothyroxine (Synthroid, Levoxyl) 200 MCG tablet [id number] Take 200 mcg by mouth in the morning. Take before meals. Real Schneider MD Active levothyroxine (Synthroid, Levoxyl) 25 MCG tablet [id number] Take 25 mcg by mouth in the morning. Takebefore meals. Real Schneider MD Active loratadine (Claritin) 10 MG tablet [id number] Take 10 mg by mouth Daily Real Schneider MD Active Melatonin 3 MG tablet dispersible [id number] Take 3 mg by mouth at bedtime Real Schneider MD Active norethindrone-ethinyl estradiol (Ortho-Novum, Nortrel) 1-35 MG-MCG tablet [id number] Take 1 tablet bymouth Daily Historical ProviderMD Active paliperidone (Invega) 3 MG 24 hr tablet [id number] Take 3 mg by mouth in the morning and 3 mg before bedtime. Do not crush, chew, or split.. Historical Provider, Active polyethylene glycol, PEG, 3350 (Miralax) 17 g packet [id number] Take 17 g by mouth Daily Historical Provider, Active QUEtiapine (SEROquel) 200 MG tablet [id number] Take 200 mg by mouth at bedtime Historical ProviderMD Active QUEtiapine (SEROquel) 400 MG tablet [id number] Take 400 mg by mouth at bedtime Historical Provider, Active HPI History obtained from caregiver report from [place] Caregiver from [place] here with patient today SEIZURE -on lamictal and depakote -denies any missed doses -denies any recent seizure -[place] continues to use a wheelchair -she is [...] triceps, wrist extensors, wrist extensors, wrist flexor, transplanter strength 5/5. LUE Strength deltoid, biceps, triceps, wrist extensors, wrist extensors, wrist flexor, transplanter strength 5/5. RLE Strength illopsoas, quadriceps, tibialis [...] has since been weaned. She is maintained ondepakote and lamictal for seizure prevention. Blood work revealed depakote and lamictal levels within therapeutic range from August 2023. She denies recent seizures but caregiver that she is more fatigued. Labwork 06/05/24 revealed therapeutic medication levels. There is note from PT and staff at [place] that the patient has had continued loss of balance when standing or walking. She loses her balance with all activities including transfers. Strength is also worsening. If MRI is needed, she wouldlikely need sedation. Dizziness Gait instability Tremor She also experiences chronic gait instability, dizziness, and is high risk for recurrent falls. Shehas completed vestibular therapy in the past. Carotid ultrasound was very limited due to patient cooperation. For MRI or CTA she would require sedation per [place]. She continues with balance disturbance and worsening strength per PT at [place]. Blood work 09/12/2023: Valproic acid level 93.9, lamictal level 10.3 Blood work 08/07/2022: depakote level 80.3, lamictal level 11.2 Blood work 11/23/2022: depakote level 85, lamictal level 12.[address] 08/02/2023: nonacute CT cervical spine 08/02/2023: nonacute. 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 CT Maxillofacial without contrast 08/02/2023: revealed no acute fracture. There was finding of forehead scalp contusion. Ambulatory EEG 2018: normal PLAN Labwork reviewed. Progress notes and PT notes reviewed from [place]. We will look into local options for MRI brain and cervical spine with sedation. We may need to consider [facility]. Continue Lamictal 150mg PO QAM and 100mg PO at bedtime for seizure prevention Continue Depakote 125mg 4 tabs PO TID and 8 tabs PO at bedtime for seizure prevention Continue with fall precautions and assisted transfers and supervision/assistance with ambulation toavoid falls. She is at a high risk of trauma and debility associated with falls and her symptoms are worsening. We will assess for acute change. Follow up after imaging. documented in this encounterSaint [facility]–SmithvilleRiripogqzo97-06-1066 History of Present illness Narrative* Lai Alvarado DPM FACFAS - 06/10/2024 10:30 AM EST Images from the original note were not included. patient: Ponce Esteves : 1995 PCP: Nathan Iyer MD SUBJECTIVE This is a 29 y.o. female that presents today with a chief complaint of painful elongated nails digits 1 through 10. They cause marked limitation in ambulation due to pain and pressure from shoe gear. Allergies: Allergies Allergen Reactions Linzess [Linaclotide] Ethosuximide Rash Past Medical History: Past Medical History: Diagnosis Date Anxiety Autism (CMS/FORMERLY [facility]) Disturbance of salivary secretion Mood [...] subungual debris. They were painful to palpation 58064 on the right 00720 on the left. VASC: DP /PT were nonpalpable bilateral. Capillary refill time < 3 seconds Digits 1-5 bilateral NEURO: [place] Cecy 5.07 monofilament was intact B/L. Vibratory [...] 1through 10. MAURA Salas documented in this encounterSaint Luke's [facility] Hospital–SmithvilleZrokjtmvsn11-57-2736 History of Present illness Narrative* PERRY Vazquez - 06/03/2024 10:00 AM EST Subjective Ponce Esteves is a 29 y.o. year old female [...] Review Audit Reviewed by Krista Wu MA (Profile Saw Operator) on 06/03/24 at 0955 Medication Order Taking? Sig Documenting Provider Last Dose Status ammonium lactate (Amlactin) 12 % cream [id number] Apply 2 application topically Daily Patient not taking: Reported on 06/03/2024 Historical ProviderMD Active busPIRone (Buspar) 30 MG tablet [id number] Take 30 mg by mouth in the morning and 30 mg in the evening and 30 mg before bedtime. Historical MD Jennie Active cloNIDine (Catapres) 0.2 MG tablet [id number] Take 0.2 mg by mouth in the morning and 0.2 mg at noon and 0.2 mg in the evening and 0.2 mg before bedtime. Historical MD Jennie Active divalproex (Depakote) 125 MG EC tablet [id number] Take 500 mg by mouth in the morning and 500 mg in the evening and 500 mg before bedtime. Real Schneider MD Active divalproex (Depakote) 125 MG EC tablet [id number] Take 1,000 mg by mouth at bedtime Do not crush, chew, or split. Historical MD Jennie Active famotidine (Pepcid) 40 MG tablet [id number] Take 40 mg by mouth Daily Historical MD Jennie Active guanFACINE (Tenex) 2 MG tablet [id number] Take 2 mg by mouth in the morning and 2 mg before bedtime. Historical MD Jennie Active lamoTRIgine (LaMICtal) 100 MG tablet [id number] Take 100 mg by mouth at bedtime Historical MD Jennie Active lamoTRIgine (LaMICtal) 150 MG tablet [id number] Take 150 mg by mouth in the morning. Real Schneider MD Active levothyroxine (Synthroid, Levoxyl) 200 MCG tablet [id number] Take 200 mcg by mouth in the morning. Take before meals. Historical MD Jennie Active levothyroxine (Synthroid, Levoxyl) 25 MCG tablet [id number] Take 25 mcg by mouth in the morning. Takebefore meals. Real Schneider MD Active loratadine (Claritin) 10 MG tablet [id number] Take 10 mg by mouth Daily Real Schneider MD Active Melatonin 3 MG tablet dispersible [id number] Take 3 mg by mouth at bedtime Historical MD Jennie Active norethindrone-ethinyl estradiol (Ortho-Novum, Nortrel) 1-35 MG-MCG tablet [id number] Take 1 tablet bymouth Daily Historical ProviderMD Active paliperidone (Invega) 3 MG 24 hr tablet [id number] Take 3 mg by mouth in the morning and 3 mg before bedtime. Do not crush, chew, or split.. Historical Provider, Active polyethylene glycol, PEG, 3350 (Miralax) 17 g packet [id number] Take 17 g by mouth Daily Historical ProviderMD Active QUEtiapine (SEROquel) 200 MG tablet [id number] Take 200 mg by mouth at bedtime Historical ProviderMD Active QUEtiapine (SEROquel) 400 MG tablet [id number] Take 400 mg by mouth at bedtime Historical Provider, Active HPI History obtained from caregiver report from [place] Caregiver from [place] here with patient today SEIZURE -on lamictal [...] triceps, wrist extensors, wrist extensors, wrist flexor, transplanter strength 5/5. LUE Strength deltoid, biceps, triceps, wrist extensors, wrist extensors, wrist flexor, transplanter strength 5/5. RLE Strength illopsoas, quadriceps, tibialis [...] has since been weaned. She is maintained ondepakote and lamictal for seizure prevention. Blood work revealed depakote and lamictal levels within therapeutic range from August 2023. She denies recent seizures but caregiver that she is more fatigued. She has not yet had labwork done. Dizziness Gait instability Tremor She also experiences chronic gait instability, dizziness, and is high risk for recurrent falls. Shehas completed vestibular therapy in the past. Carotid ultrasound was very limited due to patient cooperation. For MRI or CTA she would require sedation per [place]. She had two recent falls 07/17/23and 08/02/23. She was evaluated at [facility]. Lamictal dose was recently decreased, although she continues with balance problem. Blood work 09/12/2023: Valproic acid level 93.9, lamictal level 10.3 Blood work 08/07/2022: depakote level 80.3, lamictal level 11.2 Blood work 11/23/2022: depakote level 85, lamictal level 12.[address] 08/02/2023: nonacute CT cervical spine 08/02/2023: nonacute. 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 CT Maxillofacial without contrast 08/02/2023: revealed no acute fracture. There was finding of forehead scalp contusion. Ambulatory EEG 2017: normal PLAN Labwork order written on facility order sheet. Continue lamictal 150mg PO QAM and 100mg PO at bedtime for seizure prevention Continue Depakote 125mg 4 tabs PO TID and 8 tabs PO at bedtime for seizure prevention Continue with fall precautions at [place] and assisted transfers and supervision/assistance with ambulation to avoid falls. She is at a high risk of trauma and debility associated with falls. Follow up 2 months documented in this encounterSaint Luke's [facility] Hospital–SmithvilleEqdumcoujr88-00-6518 History of Present illness Narrative* Lai Alvarado DPM FACFAS - 03/10/2024 10:50 AM EST patient: Ponce Esteves : 1995 PCP: Nathan Iyer MD SUBJECTIVE This is a 29 y.o. female that presents today with a chief complaint of painful elongated nails digits 1 through 10. They cause marked limitation in ambulation due to pain and pressure from shoe gear.Patient is also here complaining of venous disease bilaterally she is here today with her caregivers Allergies: Allergies Allergen Reactions Linzess [Linaclotide] Ethosuximide Rash Past Medical History: Past Medical History: Diagnosis Date Anxiety Autism (CMS/FORMERLY [facility]) Disturbance of salivary secretion Mood [...] subungual debris. They were painful to palpation 77071 on the right 69983 on the left. VASC: DP /PT were nonpalpable bilateral. Capillary refill time < 3 seconds Digits 1-5 bilateral NEURO: [place] Cecy 5.07 monofilament was intact B/L. Vibratory [...] the nails. MAURA Salas documented in this encounterSaint Luke's North Hospital–SmithvilleQawtmwibde58-32-3340 Hospital Discharge instructions* Discharge Instructions* Rehana Aguillon RN - 03/02/2024 12:22 PM EST PERIOPERATIVE DISCHARGE/HOME-GOING INSTRUCTIONS ANESTHESIA - GENERAL (ADULT) If a problem arises, you may contact your physician by calling [phone] and asking for the resident batch tank controller for Dental service. Special Care Needs: Activity: [...] very uncomfortable and can t urinate, call [phone] or come to the emergency room. A [...] to eat something about 15 minutes before takingany pain medications. Seek medical attention for any prolonged?PONV and signs of dehydration. The day after surgery, a nurse will call to check on you. However, if there are any questions or concerns, please call us at the number listed in the home going instructions. documented in this [id number] Miscellaneous Notes* Brief Operative Note - Paula Contreras DDS - 03/02/2024 10:26 AM EST Brief Operative Note [facility] OR 3 Ponce Esteves 29 year old female Surgical Contact Serial Number: [id number] Preoperative Diagnosis: Pre-op Diagnosis * Caries [K02.9] Postoperative Diagnosis: * Caries [K02.9] Procedures: Full mouth x-ray [36637] Prophylaxis [43455] Restorations [00405] Floride application [77127] Surgeon(s): Surgeon(s): Elmer Topete DDS Staff: Bundle Collector Nurse: Trudi Padilla Community Nurse: Paula Contreras DDS; Melquiades Christie DDS Anesthesia: General Anesthesiologist: Milton Luna MD METAL FURNITURE PANEL COVERER: Adalgisa Smith APRN-DARSHAN Ware Tester: Dayanna Preciado MD Specimen(s): * No specimens [...] Topete DDS at 03/02/2024 11:55 AM EST * Blood Attestation - Milton Luna MD - 03/02/2024 9:16 AM EST Blood Attestation: ATTESTATION OF INFORMED CONSENT FOR BLOOD: The transfusion of blood and/or blood components were discussed with the patient and/or legal food service representative. The risks, benefits and alternatives were reviewed. Questions regarding blood transfusions were answered. The patient /or the patient s legal food service representative agree with the plan for transfusion of blood and/or blood components. * OP Note - Paula Contreras DDS - 03/01/2024 6:14 PM EST Surgical Case Number Data Unavailable Operating Room Data Unavailable Preoperative Diagnosis(es): Caries [k02.9] Surgeon: Dr. Topete Inspector Plug Seam Surgeon: Melquiades Arias DDS - Paula Contreras [...] the treatment plan included the following: Composite sikh on tooth#7 surface ML. Amalgam restorations on teeth #29 O, #30 OL and #31 O surface. These restorations were placed following excavation of the carious lesions on each tooth. The remaining dentition was then polished with prophy paste. The oral cavity was irrigated and suctioned then the throat pack was removed. Fluoride treament was placed on the remaining dentition. Thepatient tolerated the procedure well was extubated in [...] 03/02/2024 11:56 AM EST documented in this [id number] Surgery Postoperative evaluation and management note* Brief Operative Note - Paula Contreras DDS - 03/02/2024 10:26 AM EST Brief Operative Note [facility] OR 3 Ponce Esteves 29 year old female Surgical Contact Serial Number: [id number] Preoperative Diagnosis: Pre-op Diagnosis * Caries [K02.9] Postoperative Diagnosis: * Caries [K02.9] Procedures: Full mouth x-ray [44897] Prophylaxis [15443] Restorations [89358] Floride application [84924] Surgeon(s): Surgeon(s): Elmer Topete DDS Staff: Bundle Collector Nurse: Trudi Padilla Community Nurse: Paula Contreras DDS; Melquiades Christie DDS Anesthesia: General Anesthesiologist: Milton Luna MD METAL FURNITURE PANEL COVERER: sAdalgisa APRN-DARSHAN Ware Tester: Dayanna Preciado MD Specimen(s): * No specimens [...] Topete DDS at 03/02/2024 11:55 AM EST [id number] History and physical note* Melquiades Christie DDS - 03/02/2024 9:38 AM EST Images from the original note were not included. Surgical History and Physical [facility] [address] [place] [address] Name: Ponce Esteves : 1995 29 year old CSN: [id number] Attending: Elmer Topete DDS Date of Admission: 03/02/2024 8:38 AM Room/Bed: [facility] OR/NONE Planned Procedure: Procedure(s): DENTAL RESTORATIONS HPI: Ponce Esteves is a 29 year old female with [...] surgical history indicates: EXTRACTION, TOOTH (09/15/2014) Procedure: [place] teeth; Surgeon: Bradley Goodwin DDS; Location: PERIOPERATIVE [...] (1.626 m) Wt 136 lb 9.6 oz (62kg) LMP (LMP Unknown) Comment: hcg negative SpO2 [...] or any previous visit (from the past 66604 hours). BMP (last 3 years, up to 8 values) No lab values to display. No results found for this or any previous visit (from the past 8760 hours). ASSESSMENT & PLAN Assessment: Ponce Esteves is a 29 year old female with Pre-Op Diagnosis Codes: * Caries [K02.9]. Plan: I have personally reviewed the patient's medical history and performed the physical examination below immediately before the procedure. Medications, allergies, and pertinent laboratory and diagnostictests were also reviewed at this time. Procedure is still indicated. Yes Seen an evaluated by Melquiades Stewart DDS. Discussed with attending Elmer Topete DDS. Melquiades Stewart DDS 03/02/24 9:38 AM Cosigned by Elmer Topete DDS at 03/02/2024 11:48 AM EST [facility] Work Phone: 1(740) 689-495111-11-2024 NoteSurgical History and Physical [facility] [address] [place] [address] Name: Ponce Esteves : 1995 29 year old CSN: [id number] Attending: Elmer Topete DDS Date of Admission: 03/02/2024 8:38 AM Room/Bed: [facility] OR/NONE Planned Procedure: Procedure(s): DENTAL RESTORATIONS HPI: Ponce Esteves is a 29 year old female with [...] surgical history indicates: EXTRACTION, TOOTH (09/15/2014) Procedure: [place] teeth; Surgeon: Bradley Goodwin DDS; Location: PERIOPERATIVE [...] or any previous visit (from the past 39727 hours). BMP (last 3 years, up to 8 values) No lab values to display. No results found for this or any previous visit (from the past 8760 hours). ASSESSMENT AND PLAN Assessment: Ponce Esteves is a 29 year old female with [...] Topete DDS. Melquiades Stewart DDS 03/02/24 9:38 AMThe [facility]11-11-[facility] History and physical note* Melquiades Christie DDS - 03/02/2024 9:37 AM EST Surgical Attestation: I have reviewed [...] Topete DDS at 03/02/2024 11:48 AM EST [id number] NoteSurgical Attestation: I have reviewed the patient's History and Physical Examination. I have personally seen and evaluated the patient, repeating cabrera portions. There is no significant interval change. Surgery is still indicated. Yes Consent reviewed and signed by patient/family: Yes Operative site verified and marked: site verified but not marked as not anatomically possible Melquiades Stewart DDS 03/02/2024 9:38 AMThe [facility] [id number] Progress note* Blood Attestation - Milton Luna MD - 03/02/2024 9:16 AM EST Blood Attestation: ATTESTATION OF INFORMED CONSENT FOR BLOOD: The transfusion of blood and/or blood components were discussed with the patient and/or legal food service representative. The risks, benefits and alternatives were reviewed. Questions regarding blood transfusions were answered. The patient /or the patient s legal food service representative agree with the plan for transfusion of blood and/or blood components. [facility] Work Phone: 1(853) 569-797911-11-2024 History of Present illness Narrative* Elmer Mcpherson DDS - 03/02/2024 8:12 AM EST ----- Saturday, March 02, 2024 at 11:38:59 AM ----- ----- Provider: [id number] - Elmer Rebolledo DDS -- [facility] [...] Note Type: OP Note Status: Cosign Needed Railroad Track Inspector: Paula Contreras DDS (Resident) Cosign Required: Yes Expand All Collapse All Surgical Case Number Data Unavailable Operating Room Data Unavailable Preoperative Diagnosis(es): Caries [k02.9] Surgeon: Dr. Topete Inspector Plug Seam Surgeon: Melquiades Arias DDS - Paula Contreras [...] the treatment plan included the following: Composite sikh on tooth#7 surface ML. Amalgam restorations on teeth #29 O, #30 OL and #31 O surface. These restorations were placed following excavation of the carious lesions on each tooth. The remaining dentition was then polished with prophy paste. The oral cavity was irrigated and suctioned then the throat pack was removed. Fluoride treament was placed on the remaining dentition. Thepatient tolerated the procedure well was extubated in [...] 2024 at 11:57:17 AM ----- ----- Provider: [id number] Rebolledo DDS -- Clinic: [facility] ----- documented in this [id number] Surgery Surgical operation note* OP Note - Paula Contreras DDS - 03/01/2024 6:14 PM EST Surgical Case Number Data Unavailable Operating Room Data Unavailable Preoperative Diagnosis(es): Caries [k02.9] Surgeon: Dr. Topete Inspector Plug Seam Surgeon: Melquiades Arias DDS - Paula Contreras [...] the treatment plan included the following: Composite sikh on tooth#7 surface ML. Amalgam restorations on teeth #29 O, #30 OL and #31 O surface. These restorations were placed following excavation of the carious lesions on each tooth. The remaining dentition was then polished with prophy paste. The oral cavity was irrigated and suctioned then the throat pack was removed. Fluoride treament was placed on the remaining dentition. Thepatient tolerated the procedure well was extubated in [...] Topete DDS at 03/02/2024 11:56 AM EST [id number] NoteSurgical Attestation: I have reviewed the patient's History and Physical Examination. I have personally seen and evaluated the patient, repeating cabrera portions. There is no significant interval change. Surgery is still indicated. Yes Consent reviewed and signed by patient/family: Yes Operative site verified and marked: Verified but not marked Paula Contreras DDS 03/01/2024 6:10 PMThe [facility]11-04-[facility] Telephone encounter Note* Telephone Encounter - Ashleigh Kaplan RN - 02/24/2024 9:07 AM EST Anesthesia consent obtained and scanned into Shicon. Scheduled for surgery 03/02/2024. [id number] Miscellaneous Notes* Telephone Encounter - Ashleigh Kaplan RN - 02/24/2024 9:07 AM EST Anesthesia consent obtained and scanned into EPIC. Scheduled for surgery 03/02/2024. documented in this [id number] Telephone encounter Note* Telephone Encounter - Ashleigh Kaplan RN - 02/21/2024 12:22 PM EDT Anesthesia consent obtained and scanned into EPIC. Scheduled for surgery 03/02/2024. [id number] Miscellaneous Notes* Telephone Encounter - Ashleigh Kaplan RN - 02/21/2024 12:22 PM EDT Anesthesia consent obtained and scanned into Shicon. Scheduled for surgery 03/02/2024. documented in this [id number] Instructions* Discharge Instructions* Kelly Cabello RN - 02/19/2024 12:19 PM [...] otherwise contacted. ? Expect a call from [facility] one business day prior to surgery for [...] your Preparing for Your Surgery/Procedure booklet or [email or web address] if you have questions. Contact the Pre-Admission Testing department at [phone] or your surgeon's office with any questions [...] stay with you after surgery. Please call [facility] if you need transportation assistance or have concerns about going home [phone]. ? PLEASE BE ON TIME. A late arrival may result in the cancellation/ delay of your surgery. Thank you for choosing [facility]; it is our pleasure to care for you documented in this [id number] Evaluation note* PAT Call History - Kelly Cabello RN - 02/19/2024 11:55 AM EDT Telephone History Ponce Esteves [id number] 02/19/2024 Patient was identified by name and date of via Ivon, caregiver. Needs: Physical, Neck Circumference, BHCG, and ED on DOS. Note: OSH records/labs scanned to interactive media director. If the patient becomes ill prior to procedure or surgery, they are to call their provider or surgeon's office directly. 29 year old 136.6 lbs 5' 4 Date of Surgery: 03/02 Surgeon: Yoselyn Type of Surgery: DENTAL RESTORATIONS HISTORY OF PRESENT ILLNESS: telephone history for the upcoming surgery at [facility], [address] [place], enter through the west entrance doors. STOP-BANG Row Name 02/19/24 1508 History of sleep apnea? Yes NO PSG [...] (+) teeth problems missing Endo (+) hypothyroidism tea blender - negative ROS Neuro/Psych (+) bipolar disorder, seizures, intellectual disability Cardiovascular - negative ROS GI/Hepatic/Renal (+) GERD Heme/Other - negative ROS PAST SURGICAL HISTORY: Past Surgical History: Procedure Laterality Date EUA, ORAL 09/15/2014 Procedure: EUA, ORAL; Surgeon: Bradley Goodwin DDS; Location: PERIOPERATIVE SERVICES; Service: Oral EXTRACTION, TOOTH Bilateral 09/15/2014 Procedure: White Stone teeth; Surgeon: Bradley Goodwin DDS; Location: PERIOPERATIVE [...] Take by mouth. Fluticasone Propionate (FLONASE NASAL) [place] into each nostril. Selenium (SELENIMIN ORAL) Take [...] otherwise contacted. ? Expect a call from [facility] one business day prior to surgery for [...] your Preparing for Your Surgery/Procedure booklet or [email or web address] if you have questions. Contact the Pre-Admission Testing department at [phone] or your surgeon's office with any questions [...] stay with you after surgery. Please call [facility] if you need transportation assistance or have concerns about going home [phone]. ? PLEASE BE ON TIME. A late arrival may result in the cancellation/ delay of your surgery. Thank you for choosing [facility]; it is our pleasure to care for you Kelly Cabello RN Time Spent Performing this Telephone History: 48 with follow-up [facility]: [id number] Miscellaneous Notes* PAT Call History - Kelly Cabello, RN - 02/19/2024 11:55 AM EDT Telephone History Ponce Esteves, [id number] 02/19/2024 Patient was identified by name and date of via Ivon, caregiver. Needs: Physical, Neck Circumference, BHCG, and ED on DOS. If the patient becomes ill prior to procedure or surgery, they are tocall their provider or surgeon's office directly. 29 year old 136.6 lbs 5' 4 Date of Surgery: 03/02 Surgeon: Yoselyn Type of Surgery: DENTAL RESTORATIONS HISTORY OF PRESENT ILLNESS: telephone history for the upcoming surgery at [facility] [place], [address] [place], enter through the kaplan entrance doors. STOP-BANG Row Name 02/19/24 0396 History of sleep apnea? Yes NO PSG [...] (+) teeth problems missing Endo (+) hypothyroidism tea blender - negative ROS Neuro/Psych (+) bipolar disorder, seizures, intellectual disability Cardiovascular - negative ROS GI/Hepatic/Renal (+) GERD Heme/Other - negative ROS PAST SURGICAL HISTORY: Past Surgical History: Procedure Laterality Date EUA, ORAL 09/15/2014 Procedure: EUA, ORAL; Surgeon: Bradley Goodwin DDS; Location: PERIOPERATIVE SERVICES; Service: Oral EXTRACTION, TOOTH Bilateral 09/15/2014 Procedure: [place] Stone teeth; Surgeon: Bradley Goodwin DDS; Location: PERIOPERATIVE [...] Take by mouth. Fluticasone Propionate (FLONASE NASAL) [place] into each nostril. Selenium (SELENIMIN ORAL) Take [...] otherwise contacted. ? Expect a call from [facility] one business day prior to surgery for [...] your Preparing for Your Surgery/Procedure booklet or [email or web address] if you have questions. Contact the Pre-Admission Testing department at [phone] or your surgeon's office with any questions [...] stay with you after surgery. Please call [facility] if you need transportation assistance or have concerns about going home [phone]. ? PLEASE BE ON TIME. A late arrival may result in the cancellation/ delay of your surgery. Thank you for choosing [facility] [place]; it is our pleasure to care for you Kelly Cabello RN Time Spent Performing this Telephone History: 48 with follow-up [place]: documented in this [id number] Miscellaneous Notes* PAT Call History - Kelly Cabello RN - 02/19/2024 11:55 AM EDT Telephone History Ponce Esteves, [id number] 02/19/2024 Patient was identified by name and date of via Ivon, caregiver. Needs: Physical, Neck Circumference, BHCG, and ED on DOS. Note: OSH records/labs scanned to interactive media director. If the patient becomes ill prior to procedure or surgery, they are to call their provider or surgeon's office directly. 29 year old 136.6 lbs 5' 4 Date of Surgery: 03/02 Surgeon: Yoselyn Type of Surgery: DENTAL RESTORATIONS HISTORY OF PRESENT ILLNESS: telephone history for the upcoming surgery at [facility] [place], [address] [place], enter through the [facility] doors. STOP-BANG Row Name 02/19/24 1154 History [...] (+) teeth problems missing Endo (+) hypothyroidism tea blender - negative ROS Neuro/Psych (+) bipolar disorder, seizures, intellectual disability Cardiovascular - negative ROS GI/Hepatic/Renal (+) GERD Heme/Other - negative ROS PAST SURGICAL HISTORY: Past Surgical History: Procedure Laterality Date EUA, ORAL 09/15/2014 Procedure: EUA, ORAL; Surgeon: Bradley Goodwin DDS; Location: PERIOPERATIVE SERVICES; Service: Oral EXTRACTION, TOOTH Bilateral 09/15/2014 Procedure: [place] teeth; Surgeon: Bradley Goodwin DDS; Location: PERIOPERATIVE [...] Take by mouth. Fluticasone Propionate (FLONASE NASAL) [place] into each nostril. Selenium (SELENIMIN ORAL) Take [...] otherwise contacted. ? Expect a call from [facility] [place] one business day prior to surgery for [...] questions. Contact the Pre-Admission Testing department at [phone] or your surgeon's office with any questions [...] you after surgery. Please call [facility] Social Work if you need transportation assistance or have concerns about going home [phone]. ? PLEASE BE ON TIME. A late arrival may result in the cancellation/ delay of your surgery. Thank you for choosing [facility] [place]; it is our pleasure to care for you Kelly Cabello RN Time Spent Performing this Telephone History: 48 with follow-up [facility]: documented in this [id number] History and physical note* Melquiades Christie DDS - 03/02/2024 9:38 AM EST Images from the original note were not included. Surgical History and Physical [facility] [address] [place] [address] Name: Ponce Esteves : 1995 29 year old CSN: [id number] Attending: Elmer Topete DDS Date of Admission: 03/02/2024 8:38 AM Room/Bed: [facility] OR[facility]NONE Planned Procedure: Procedure(s): DENTAL RESTORATIONS HPI: Ponce Esteves is a 29 year old female with [...] surgical history indicates: EXTRACTION, TOOTH (09/15/2014) Procedure: [place] teeth; Surgeon: Bradley Goodwin DDS; Location: PERIOPERATIVE [...] (1.626 m) Wt 136 lb 9.6 oz (62kg) LMP (LMP Unknown) Comment: hcg negative SpO2 [...] or any previous visit (from the past 17946 hours). BMP (last 3 years, up to 8 values) No lab values to display. No results found for this or any previous visit (from the past 8760 hours). ASSESSMENT & PLAN Assessment: Ponce Esteves is a 29 year old female with Pre-Op Diagnosis Codes: * Caries [K02.9]. Plan: I have personally reviewed the patient's medical history and performed the physical examination below immediately before the procedure. Medications, allergies, and pertinent laboratory and diagnostictests were also reviewed at this time. Procedure is still indicated. Yes Seen an evaluated by Melquiades Stewart DDS. Discussed with attending Elmer Topete DDS. Melquiades Stewart DDS 03/02/24 9:38 AM Cosigned by Elmer Topete DDS at 03/02/2024 11:48 AM EST * Melquiades Christie DDS - 03/02/2024 9:37 AM EST Surgical Attestation: I have reviewed [...] 03/02/2024 11:48 AM EST documented in this [id number] Miscellaneous Notes* Telephone Encounter - Liliana Song - 04/30/2022 3:03 PM EST Bina from [facility] calling in. She wanted to know where the pt was at on the OR wait list. E-mail sent to Connie E-mail sent 04/30/22 documented in this [id number] Telephone encounter Note* Telephone Encounter - Liliana Song - 04/30/2022 3:03 PM EST Bina from [facility] calling in. She wanted to know where the pt was at on the OR wait list. E-mail sent to Connie E-mail sent 04/30/22 [id number] History of Present illness Narrative* Martha Coreas DMD - 03/13/2022 10:06 AM EST ----- Sunday, March 13, 2022 at 11:58:40 AM ----- ----- Provider: [id number] - Martha Coreas DMD -- Clinic: [place] ----- OR EVALUATION Patient presents for evaluation [...] available. Legal Guardian: Toshia Esteves Phone #: [phone] NOTE: Patient had a hard time leaning her head back, but allowed me to look. Patient not indicatingshe is in any pain. #8 is very discolored - most likely will need RCT treatment. Gingiva very red and irritated. Caregiver did not know who patient's guardian was or contact information, looked it up in [employer] Next Visit: OR documented in [facility]* Diagnosis Caries- Primary Unspecified dental caries [...] [facility] Diagnosis Recurrent sinusitis- Primary Unspecified sinusitis (chronic) Recurrent sinus infections Unspecified sinusitis (chronic) Nasal congestion Other diseases of nasal cavity and sinuses documented [facility] assessment information available [facility] Work Phone: InstructionsNot on filedocumented in this encounter [facility] (narrative)No reason for referral information availableKindred Healthcare Ctr Work Phone: Reason for visit Narrative* Auth/Cert (Routine) Specialty Diagnoses / Procedures Referred By Alessandro azul Referred To Contact Ambulatory Surgery Diagnoses Caries Caries [K02.9] Procedures INTERDENTAL FIXATION. UNLISTED PROCEDURE, DENTOALVEOLAR STRUCTURES DENTAL RESTORATIONS Elmer Topete, DDS [address] [place] [address] Phone: tel: fax: [facility] [address] [place] [address] Phone: tel: Referral ID Status Reason Start Date Expiration Date Visits Re quested Visits Authorized [id number] 3 [facility] Summary Purpose Family History No Family History Records FoundNo Family History Records FoundNo Family History Records FoundNo Family History Records FoundNo Family History Records FoundNo Family History Records FoundNo Family History Records FoundNo Family History Records Found Advance Directives Documents on File Type Date Recorded Patient Pharmacy Picking Tech Expl anation Living Will 09/03/2017 4:36 PM LEGAL GURA DIANSHIP/AGREEMENT FOR CARE [facility] Advance Directive Response Recorded Date/ Time Advance Directives No December 12:12pm Reason for Referral Specialty Diagnoses / Procedures Referred By Alessandro azul Referred To Contact Anesthesiology Diagnoses Caries Elmer Topete, DDNieves [address] [id number] [facility] PRE ADMISSION TESTING [address] [place] [address] Referral ID Status Reason Start Date Expiration Date V isits Requested Visits Authorized [id number] Authorized 12/27/2023 12/26/2024 1 1 Scheduling Instructions Your surgical team will reach out to you to schedule a pre-admission testing appointment. Question Answer Reason for consult? Recommended PAT Risk Score Chief Complaint and Reason for Visit Chief Complaint Admit Date R26.81 R62.50 G40.909 December 28 11:04am Chief Complaint Admit Date R26.81 R62.50 G40.909 December 28 11:04am R26.81 R62.50 G40.909 January 08 7:36am Chief Complaint Admit Date R26.81 R62.50 G40.909 December 28 11:04am R26.81 R62.50 G40.909 January 08 7:36am Follow up January 27, 2025 12 :36pm Reason for Visit Admit Date Autism January 27, 2025 12 :36pm Mental deficiency January 27, 2025 12 :36pm Gait instability January 27, 2025 12 :36pm Seizure disorder January 27, 2025 12 :36pm Additional Source Comments INFORMATION SOURCE (unrecogn ized section and content) DATE CREATED AUTHOR 10/16/[address] [facility] DATE CREATED AUTHOR AUTHOR'S ORGANIZ ATION 09/02/2022 [facility] DATE CREATED AUTHOR AUTHOR'S ORGANIZ ATION 01/11/2023 [facility] DATE CREATED AUTHOR AUTHOR'S ORGANIZ ATION 03/10/2024 [facility] DATE CREATED AUTHOR AUTHOR'S ORGANIZ ATION 11/27/2024 [facility] EPIC DATE CREATED AUTHOR AUTHOR'S ORGANIZ ATION 12/26/2024 [facility] DATE CREATED AUTHOR AUTHOR'S ORGANIZ ATION 01/22/2025 [facility] DATE CREATED AUTHOR AUTHOR'S ORGANIZ ATION 01/25/[address] [facility] Reason for Visit (unrecogniz ed section and content) Reason Onset Date Comments Dental 04/30/2022 Reason Comments Seizures Reason Onset Date Comments PAT 02/21/2024 Anesthesia conse nt obtained Reason Onset Date Comments PAT 02/24/2024 Anesthesia conse nt obtained Reason Onset Date Comments Pre-surgical Evaluation 02/26/2024 DD adult dental restorations 03/02 under [place] at [place]. PAT completed - anesthesia consent. PAT RN spoke to Mary (nurse), confirmed NPO, [place] address, and 0900 arrival time Reason Comments Toenail Problem RT grt nail fungal Reason Comments Toenail Care Non DM nail care Reason Comments Sinus Problem Nasal Congestion Specialty Diagnoses / Procedures Referred By Alessandro azul Referred To Contact Otolaryngology Diagnoses Recurrent sinus infections Nasal congestion Ref Prov, [place] [address] [facility] [address] [place] [address], [address] [place] [address] Phone: tel: fax: Referral ID Status Reason Start Date Expiration Date Visits Requested Visits Authorized [id number] Pending Review Specialty Services Required 11/11/2024 11/11/2025 1 1 Care Teams (unrecognized sec tion and content) Store Clerk Cashier Relationship Specialty Start Date End Date Unallocated, May Schneider MD [address] [facility] [place] [address] PCP - General Family Medicine 07/09/23 Kris Mcguire MD [address] [place] [address] Referring Physician Neurology 07/09/23 Store Clerk Cashier Relationship Specialty Start Date End Date Unallocated, May Schneider MD [address] [facility] [place] [address] PCP - General Family Medicine 07/09/23 Kris Mcguire MD [address] [place] [address] Referring Physician Neurology 07/09/23 Store Clerk Cashier Relationship Specialty Start Date End Date Nathan Iyer MD [employer] [address] [place] [address] PCP - General Family Medicine 03/10/24 Kris Mcguire MD [address] [place] [address] Referring Physician Neurology 07/09/23 Store Clerk Cashier Relationship Specialty Start Date End Date Nathan Iyer MD [address] [employer] [address] [place] [address] PCP - General Family Medicine 03/10/24 Kris Mcguire MD [address] [place] [address] Referring Physician Neurology 07/09/23 Store Clerk Cashier Relationship Specialty Start Date End Date Nathan Iyer MD [address] [employer] [address] [place] [address] PCP - General Family Medicine 03/10/24 Kris Mcguire MD [address] [place] [address] Referring Physician Neurology 07/09/23 Store Clerk Cashier Relationship Specialty Start Date End Date Nathan Iyer MD [address] [employer] [address] [place] [address] PCP - General Family Medicine 03/10/24 Kris Mcguire MD [address] [place] [address] Referring Physician Neurology 07/09/23 Store Clerk Cashier Relationship Specialty Start Date End Date Nathan Iyer MD [address] [employer] [address] [place] [address] PCP - General Family Medicine 03/10/24 Kris Mcguire MD [address] [place] [address] Referring Physician Neurology 07/09/23 Store Clerk Cashier Relationship Specialty Start Date End Date Nathan Iyer MD [address] [employer] [address] [place] [address] PCP - General Family Medicine 03/10/24 Kris Mcguire MD Referring Physician Neurology 07/09/23 Store Clerk Cashier Relationship Specialty Start Date End Date Nathan Iyer MD [address] [employer] [address] [place] [address] PCP - General Family Medicine 03/10/24 Kris Mcguire MD Referring Physician Neurology 07/09/23 Store Clerk Cashier Relationship Specialty Start Date End Date Nathan Iyer MD [address] [employer] [address] [place] [address] PCP - General Family Medicine 03/10/24 Kris Mcguire MD Referring Physician Neurology 07/09/23 Store Clerk Cashier Relationship Specialty Start Date End Date Nathan Iyer MD [address] [employer] [address] [place] [address] PCP - General Family Medicine 03/10/24 Kris Mcguire MD Referring Physician Neurology 07/09/23 Store Clerk Cashier Relationship Specialty Start Date End Date Nathan Iyer DO [address] [place] [address] PCP - General Family Medicine 08/23/17 Team Status: Active Member Role Status Dates Nathan Iyer DO Primary Care Provider Active Team Status: Inactive Member Role Status Dates Nathan Iyer DO Primary Care Provider Active Start: December 28, 2024 End: December 28, 2024 STACIE Prado Attending Provider Active Start: December 28, 2024 End: December 28, 2024 Team Status: Inactive Member Role Status Dates Nathan Iyer DO Primary Care Provider Active Start: January 08, 2025 End: January 08, 2025 STACIE Prado Attending Provider Active Start: January 08, 2025 End: January 08, 2025 Team Status: Inactive Member Role Status Dates Nathan Iyer DO Primary Care Provider Active Start: January 27, 2025 End: January 27, 2025 Дмитрий Feliciano DO Attending Provider Active Start: January 27, 2025 End: January 27, 2025 PRN Active and Recently Administ ered [...] BE BASED ON THE PRIMARY CLINICAL RECORDS. [facility]. provides no warranty or guarantee of the accuracy or completeness of information in this document.
--- OUTSIDE RECORDS SUMMARY | 2025-02-02 07:10 | XMS_ITS | Encounter Summary ---
Author Organization [facility] Address [address] [place] [address] Care Team Providers Care Home Health Occupational Therapist Name Role Phone Pete Mcguire MD Unavailable [phone] Nathan Iyer MD Primary Care Provider [phone] Encounter Details Date Type Department Care Team (Late st Contact Info) Description 11/27/2024 Abstract [facility] [address] [place] [id number] Lai Alston, DPM [facility] [address] [place] [address] Social History Tobacco Use Types [...] EST Procedure Visit [facility] [address] [place] [address] Lai Alston, DPM FACFAS [address] [place] [address] documented as of this encounter Visit Diagnoses Not on filedocumented in this encounter Care Teams Home Health Occupational Therapist Relationship Specialty Start Date End Date Nathan Iyer MD [facility] [employer] [address] [place] [address] PCP - General Family Medicine 03/10/24 Pete Mcguire MD Referring Physician Neurology 07/09/23 documented as of this encounter
--- OUTSIDE RECORDS SUMMARY | 2025-02-02 07:10 | XMS_ITS | Clinical Summary ---
Author Organization [facility] Address [address] [place] [address] Care Team Providers Care Copy Cutter Name Role Phone Pete Mcguire MD Unavailable [...] problems in the past month noted by Hope, increased tone in her extremities, dizziness when looking upwards which has been contributing to falls. She has had dizziness in the past, as noted above. She had an unwitnessed fall without reported loss of consciousness. She was evaluated recently after the fall at [facility] and had a Head CT, which revealed no acute process. There was left supraorbital soft tissue laceration. Blood work 11/23/2022 revealed Lamictal 12.4, valproic acid 85. Carotid ultraound was very limited due to patient cooperation, no hemodynamic significant stenosis noted. For MRI or CTA she would require sedation per Hope. Her balance is stable and there have [...] Description 11/27/2024 Abstract [facility] [address] [facility] [place] [address] Lai Alston, DPM FACFAS 11/24/2024 9:30 AM EDT Procedure Visit [facility] [address] [place] [address] Lai Alston, DPM FACFAS Onychomycosis (Primary Dx); Pain in right toe(s); Pain in left toe(s) 11/24/2024 Bamboo flowsheet [facility] [address] [place] [id number] Lai Alston, DPM FACFAS from Last 3 [...] EST Procedure Visit [facility] [address] [facility] [place] [address] Lai Alston, MAURA FACFAS [address] [facility] [place] [address] Health Maintenance Due Date Last Done Comments Pap Smear 2014 Cervical Cancer Screening 2023 HPV/Cotest 2023 Influenza Vaccine (#1) [address] [place] [address] MEDICARE MEDICAID [place] Care Teams Copy Cutter Relationship Specialty Start Date End Date Nathan Iyer MD [facility] [employer] [place] [address] PCP - General Family Medicine 03/10/24 Pete Mcguire MD Referring Physician Neurology 07/09/23
--- OUTSIDE RECORDS SUMMARY | 2025-02-02 07:10 | XMS_ITS | Clinical Summary ---
Author Organization [facility] Address [address] [place] [address] Care Team Providers Care Worm Picker Name Role Phone Unavailable Primary Care Provider Unavailabl e Source Comments The following information is NOT included in Care Everywhere downloads:Psychiatric notes, ECG results, Cardiac Rehab notes, Pulmonary Function notes, data from SmartForms (includes but not limited toPregnancy data,audiograms, eye exams, pre-surgical evaluation notes, well-child exam data).[facility] Allergies Active Allergy Reactions Criticality Noted Date Comments Linaclotide 03/02/2024 Ethosuximide Rash 09/15/2014 Medications Lactobacillus (ACIDOPHILUS) CAPS Take by mouth. Active CLONIDINE HCL ORAL Take by mouth. Active docusate sodium (COLACE) 100 MG capsule Take 100 mg by mouth 2 times daily. Active Fluticasone Propionate (FLONASE NASAL) [place] into each nostril. Active Selenium (SELENIMIN ORAL) [...] 03/02/2024 9:11 AM EST Plan of Treatment Upcoming Encounters Date Type Department Care Team (Late st Contact Info) Description 12/22/2025 11:00 AM EDT Office Visit [facility] [address] [place] [address] Kaushal Wilson, RD [address] [place] [address] Health Maintenance Due Date Last Done Comments [...] Most Recently Relevant to Health Maintenance Insurance [address] [place] [address] MEDICARE DENTAL-MEDICAID DENTAL-MEDICAID
--- OUTSIDE RECORDS SUMMARY | 2025-02-02 07:10 | XMS_ITS | Clinical Summary ---
Author Organization [facility] Address [address], [address] [place] [address] Care Team Providers Care Dental Front Office Assistant Name Role Phone Unavailable Primary Care Provider Unavailabl e Encounters Date Type Department Care Team Description 01/21/2025 Transcribe Orders [facility] Pre Access [address] [id number] Ramos Feliciano DO Seizure disorder (HCC) (Primary Dx); Unsteady gait from Last 3 Months Social History Tobacco Use Types Packs/Day Years Used Date Smoking Tobacco: Never Assessed Comments Unknown Sex and Gender Information Value Date Recorded Sex Assigned at Not on file Legal Sex Female 9:46 AM EDT Gender Identity Not on file Sexual Orientation Not on file Plan of Treatment Upcoming Encounters Date Type Department Care Team (Latest Contact Info) Description 02/26/2025 11:30 AM EST Appointment [address] [address] ORDER FAXED *WITH ANESTHESIA PT IN SENIOR LIVING DEVELOPMENTALLY DISABLED OK PER NATHALIE. [facility], [facility] W/ LI[facility]. REMY JOSEPH WHALEN IS LEGAL GUARDIAN - JOSEPH WHALEN WILL BE W/ PT DOS AND WILL BE THERE TO SIGN CONSENTS. ARRIVAL AT 930 AM 02/26/2025 1:00 PM EST Appointment [address] [address] ORDER FAXED *WITH ANESTHESIA PT IN SENIOR LIVING DEVELOPMENTALLY DISABLED OK PER NATHALIE. [facility], [facility] W/ [facility]. REMY JOSEPH WHALEN IS LEGAL GUARDIAN - JOSEPH WHALEN WILL BE W/ PT DOS AND WILL BE THERE TO SIGN CONSENTS. ARRIVAL AT 930 AM Health Maintenance Due Date Last Done Comments Depression Screen 2005 Varicella vaccine (1 of 2 - 13+ 2-dose series) 2006 HIV screen 01/02/2008 Hepatitis C screen 2011 DTaP/Tdap/Td vaccine (1 - Tdap) 01/02/2012 Hepatitis B vaccine (1 of 3 - 19+ 3-dose series) 01/02/2012 Pap smear 2014 Cervical cancer screen 2023 HPV (without or with Pap) 2023 Flu vaccine (#1) 11/20/2024 COVID-19 Vaccine (1 - 2023-2 5 season) 2024 Annual Wellness Visit (Medicare) 01/21/2025 HPV vaccine (No Doses Required) Completed Hepatitis A vaccine Aged Out No longe r eligible based on patient's age to complete this topic Hib vaccine Aged Out No longer eligi ble based on patient's age to complete this topic Meningococcal (ACWY) vaccine Aged Out No longer eligible based on patient's age to complete this topic Meningococcal B vaccine Aged Out No l onger eligible based on patient's age to complete this topic Pneumococcal 0-49 years Vaccine Aged Out No longer eligible based on patient's age to complete this topic Polio vaccine Aged Out No longer elig ible based on patient's age to complete this topic Insurance MEDICARE [place]ICAID [place]
--- OUTSIDE RECORDS SUMMARY | 2025-02-02 07:10 | XMS_ITS | Clinical Summary ---
Author Organization Myxer s tem Address [id number] [address] [place] [address] Care Team Providers Care Electrical Maintenance Technician Name Role Phone Nathan Iyer DO Primary Care Provider [phone] Allergies Active Allergy Reactions Criticality Noted Date [...] azelastine (ASTELIN) 137 mcg (0.1 %) nasal sprayIndications :Nasal congestion Administer 2 sprays into each nostril in the morning and 2 sprays before bedtime. Use in each nostril as directed. 30 mL 5 5 Active mometasone (NASONEX) 50 mcg/actuation nasal sprayIndications :Nasal congestion Administer 2 sprays into each nostril in the morning. 17 g 5 5 Active Active Problems Problem Noted Date [...] Ear, Nose and Throat [address] [place] [address] Lyn Monroy PA-C Recurrent sinusitis [...] Description 02/24/2025 9:30 AM EST Office Visit [facility], A Department of [facility] [address] [place] [id number] Shanna Del Valle MD [address] [place] [address] 03/16/2025 12:45 PM EST Office Visit [facility] [address] [place] [address] Lyn Monroy, PA-C [address] [facility] [address] [place] [address] Health Maintenance Due Date Last Done Comments [...] Documents on File Type Date Recorded Patient Sales Recruiter Expl anation Living Will 09/03/2017 4:36 PM LEGAL GURA DIANSHIP/AGREEMENT FOR CARE [facility] Care Teams Electrical Maintenance Technician Relationship Specialty Start Date End Date Nathan Iyer DO [address] [place] [address] PCP - General Family Medicine 08/23/17
--- OUTSIDE RECORDS SUMMARY | 2025-02-02 07:10 | XMS_ITS | Encounter Summary ---
Author Organization [facility] Address [address] [facility] [place] [address] Care Team Providers Care Tariff Publishing Agent Name Role Phone Unavailable Primary Care Provider Unavailabl e Reason for Referral * Imaging (Routine) - Pending Review Specialty Diagnoses / Procedures Referred By Alessandro azul Referred To Contact Radiology Diagnoses Unsteady gait Seizure disorder (HCC) Procedures MRI BRAIN W WO CONTRAST Ramos Feliciano DO [address] [place] [address] Phone: tel: fax: Referral ID Status Reason Start Date Expiration Date V isits Requested Visits Authorized [id number] Pending Review 01/21/2025 01/21/2026 1 1 * Imaging (Routine) - Pending Review Specialty Diagnoses / Procedures Referred By Alessandro azul Referred To Contact Radiology Diagnoses Unsteady gait Seizure disorder (HCC) Procedures MRI CERVICAL SPINE WO CONTRAST Ramos Feliciano DO [address] [place] [address] Phone: tel: fax: Referral ID Status Reason Start Date Expiration Date V isits Requested Visits Authorized [id number] Pending Review 01/21/2025 01/21/2026 1 1 Encounter Details Date Type Department Care Team (Late st Contact Info) Description 01/21/2025 Transcribe Orders [facility] [address] [place], [place] [id number] Ramos Feliciano DO [address] [place] [address] Seizure disorder (HCC) (Primary Dx); Unsteady gait Social History Tobacco Use Types Packs/Day Years [...] Info) Description 02/26/2025 11:30 AM EST Appointment [address] [address] ORDER FAXED *WITH ANESTHESIA PT IN LONG TERM DEVELOPMENTALLY DISABLED OK PER NATHALIE. [facility] W/ LIZ. REMY JOSEPH WHALEN IS LEGAL GUARDIAN - JOSEPH WHALEN WILL BE W/ PT DOS AND WILL BE THERE TO SIGN CONSENTS. ARRIVAL AT 930 AM 02/26/2025 1:00 PM EST Appointment [address] [address] ORDER FAXED *WITH ANESTHESIA PT IN LONG TERM DEVELOPMENTALLY DISABLED OK PER NATHALIE. [facility] W/ LIZ. REMY JOSEPH WHALEN IS LEGAL GUARDIAN - JOSEPH WHALEN WILL BE W/ PT DOS AND WILL BE THERE TO SIGN CONSENTS. ARRIVAL AT 930 AM Scheduled Orders Name Type Priority Associated Diagnoses Orde r Schedule MRI CERVICAL SPINE WO CONTRAST Imaging Routine Unsteady gait Seizure disorder (HCC) Expected: 01/21/2025, Expires: 01/21/2026 MRI BRAIN W WO CONTRAST Imaging Routine Unsteady gait Seizure disorder (HCC) Expected: 01/21/2025, Expires: 01/21/2026 documented as of this encounter Visit Diagnoses Diagnosis Seizure disorder (HCC)- Primary Unspecified epilepsy without mention of intractable epilepsy Unsteady gait Abnormality of gait documented in this encounter
[2025-02-06 07:13] LABS: Lamotrigine (Lamictal), Serum 11.3 ug/mL (2.0-20.0)
== END 2025-02-02 07:07 | disposition home or self-care (01) ==
LOC: LAB 07:08
PROVIDERS: PCP Family Medicine; Visit Provider Family Medicine
DX: F84.0 Autistic disorder (principal); R26.89 Other abnormalities of gait and mobility; G40.909 Epilepsy, unspecified, not intractable, without status epilepticus; Z79.899 Other long term (current) drug therapy
CPT/HCPCS: 36415; 80164; 80175

== ENCOUNTER 2025-02-25 08:49 | Outpatient (OUT) | payer MEDICARE, MEDICAID, SELFPAY ==
--- OUTSIDE RECORDS SUMMARY | 2025-02-23 09:30 | XMS_ITS | Encounter Summary ---
Author Organization [facility] Address [address] [place] [address] Care Team Providers Care Deaf Teacher Name Role Phone Pete Mcguire MD Unavailable [phone] Nathan Iyer MD Primary Care Provider [phone] Reason for Visit * ReasonCommentsToenail CareNon DM nail care Encounter Details DateTypeDepartmentCare Team (Latest Contact Info)Dczlbyebeqn82/04/2025 9:30 AM ESTProcedure Visit [facility] [address] [place] [address] Lai Alston, DPM FACFAS [address] [place] [address] Onychomycosis (Primary Dx); Pain in right toe(s); Pain in left toe(s) Social History Tobacco UseTypesPacks/DayYears UsedDateSmoking Tobacco: NeverSmokeless Tobacco: Never Tobacco Cessation:Counseling Given: Yes Alcohol UseStandard Drinks/WeekCommentsNever0 (1 standard drink = 0.6 oz pure alcohol)CommentsUnknownSex and Gender InformationValueDate RecordedSex Assigned at BirthNot on fileLegal SqyZxxemd68/15/2023 11:47 PM EDTGender IdentityNot on fileSexual OrientationNot on filedocumented as of this encounter Last Filed Vital Signs Vital SignReadingTime TakenCommentsBlood Yxqtqklv560/6402/23/2025 9:47 AM EST Pfouv388502/23/2025 9:47 AM ESTTemperature--Respiratory Rate--Oxygen Saturation-- Inhaled Oxygen Concentration--Lpoxjo90.1 kg (128 lb)02/23/2025 9:47 AM ESTHeight 165.1 cm (5' 5 )02/23/2025 9:47 AM ESTBody Mass Index21.311 9:47 AM EST documented in this encounter Progress Notes * Lai Alston DPM FACFAS - 02/23/2025 9:30 AM EST Images from the original note were not included. patient: Chantel Ascencio : 1995 PCP: Nathan Iyer MD SUBJECTIVE This is a 30 y.o. female that presents today with a chief complaint of painful elongated nails digits 1 through 10. They cause marked limitation in ambulation due to pain and pressure from shoe gear. Allergies: Allergies[1] Past Medical History: Active Ambulatory Problems Diagnosis Date Noted Anxiety disorder 09/03/2017 Autism (HCC) 09/03/2017 History of seizure 09/03/2017 Dizziness 07/03/2018 Pseudobulbar affect 08/06/2023 Gait instability 08/06/2023 Seizure disorder ([facility]) Mental disability 01/15/2024 Resolved Ambulatory Problems Diagnosis Date Noted No Resolved Ambulatory Problems Past Medical History: Diagnosis Date Anxiety Disturbance of salivary secretion Mood disorder due to medical condition Medications: Current Medications[2] Review of systems: Constitutional: Denies fever, chills, [...] subungual debris. They were painful to palpation 17756 on the right 23972 on the left. VASC: DP /PT were nonpalpable bilateral. Capillary refill time < 3 seconds Digits 1-5 bilateral NEURO: [place] Cecy 5.07 monofilament was intact B/L. Vibratory [...] both in length and thickness 1through 10. Lai Alston DPM FACFAS [1] Allergies Allergen Reactions Linzess [Linaclotide] Ethosuximide Rash [2] Current Outpatient Medications: ammonium lactate (Amlactin) 12 [...] by mouth at bedtime, Disp: , Rfl: documented in this encounter Plan of Treatment DateTypeDepartmentCare Team (Latest Contact Info)Oibbkbpgazn34/03/2026 9:30 AM ESTProcedure Visit [facility] [address] [place] [id number] Lai Alston DPM FACFAS [address] [place] [address] documented as of this encounter Visit Diagnoses Diagnosis Onychomycosis- Primary Dermatophytosis of nail Pain in right toe(s) Pain in left toe(s) documented in this encounter Care Teams Team MemberRelationshipSpecialtyStart DateEnd Date Nathan Iyer MD [address] [employer] [address] [place] [address] PCP - GeneralFamily Ezlhtijr08/19/24 Pete Mcguire MD Referring PhysicianNeurology07/09/23documented as of this encounter
--- OUTSIDE RECORDS SUMMARY | 2025-02-24 09:30 | XMS_ITS | Encounter Summary ---
Author Organization [facility]Book[facility] s [facility] Address [id number] [address] [place] [address] Care Team Providers Care Dental Director Name Role Phone Nathan Iyer DO Primary Care Provider [phone] Reason for Visit * ReasonCommentsNew PatientRed puffy eyes, runny noses, more likely year round * Consultation (Routine) - Pending ReviewSpecialtyDiagnoses / ProceduresReferred By ContactReferred To ContactAllergy and Immunology Diagnoses Recurrent sinus infections Nasal congestion Lyn Monroy, TAMIKO [address] [address] Phone: tel: fax: [facility] All[facility]ology, A Department of [address] [place] [address] Phone: tel: fax: Referral IDStatusReasonStart DateExpiration DateVisits RequestedVisits [id number] Review/ Encounter Details DateTypeDepartmentCare Team (Latest Contact Info)Wcltxihtduu74/05/2025 9:30 AM ESTOffice Visit [facility], A Department of [address] [place] [address] Shanna Del Valle MD [address] [place] [address] [address] [place] [address] Other allergy, initial encounter (Primary Dx); Chronic rhinitis Social History Tobacco UseTypesPacks/DayYears UsedDateSmoking Tobacco: NeverSmokeless Tobacco: NeverAlcohol UseStandard Drinks/WeekCommentsNo0 (1 standard drink = 0.6 oz pure alcohol)PHQ-2AnswerDate RecordedTotal Rlqen289ChildcareAnswerDate NwucbnuyNnmisolavAakkspu02/13/2019EmploymentAnswerDate RecordedEmploymentUnknown 10/02/2018Purpose - LifeAnswerDate RecordedPurpose and direction in lifeUnknown 1CommentsUnknownSex and Gender InformationValueDate RecordedSex Assigned at BirthNot on fileLegal ClxTjqphu04/26/2018 1:10 PM EDTGender Identity Not on fileSexual OrientationNot on filedocumented as of this encounter Last Filed Vital Signs Vital SignReadingTime TakenCommentsBlood Xzufinsu526/7511 9:34 AM EST Rpabv164702/24/2025 9:34 AM ESTTemperature--Respiratory Rate--Oxygen Ipzopdqizv00% 02/24/2025 9:34 AM ESTInhaled Oxygen Concentration--Hxtyga32 kg (136 lb 9.6 oz) 02/24/2025 9:34 AM ESTHeight--Body Mass Index22.7303 1:20 PM EDT documented in this encounter Patient Instructions * Patient Instructions* Shanna Del Valle MD - 02/24/2025 9:30 AM EST Chronic Rhinitis: - SPT was unable to be completed today due to recent antihistamine use. She is on cyproheptadine and azelastine nasal spray. - Ordered a respiratory allergy panel. - Reviewed proper avoidance measures during the visit today and provided a handout. - Start Flonase (fluticasone) 2 sprays in each nostril twice daily. It must be used everyday for the best results. Symptoms start to improve in about 1 week, and it may take 1-2 months of consistent everyday use to see the full benefit. - Continue azelastine nasal spray, 2 SEN, twice daily. - Start azelastine 0.05% eye drop, one drop in each eye twice daily. Can discontinue lubricant eyedrops if not helping. - Reviewed proper nasal sprays using instructions in details today. - Continue with cetirizine 10 mg daily as needed. - Advised to discontinue Benadryl use due to the short half life and worse comparative side effectsto second generation antihistamines. - Continue to follow up with ENT (Lyn Monroy PA-C). Follow up as needed pending allergy test results. documented in this encounter Progress Notes * Shanna Del Valle MD - 02/24/2025 9:30 AM EST Images from the original note were not included. [facility] HISTORY OF PRESENT ILLNESS: Chantel is a 30 y.o. female who presents for new patient evaluation and consultation regarding recurrent sinus infections and nasal congestion. She is present today with her mother and caregiver. Shewas referred by Lyn Monroy PA-C. PCP: NATHAN IYER, Nasal Congestion and Itchy Eyes: Has a h/o seasonal environmental allergies. Symptoms are mainly nasal congestion, runny nose, itchynose, red eyes, itchy eyes, sneezing, PND, and occasional cough. Symptoms are all year around and seemingly occur randomly. Has tried azelastine, clonidine and cyproheptadine, which didn't help much with the symptoms. They are unsure if she stopped antihistamines for this appointment. No pets. Uses lubricant eye drops. PAST MEDICAL HISTORY: Past Medical History: Diagnosis Date Abnormal ultrasound ADHD (attention deficit hyperactivity disorder) Allergic Alopecia Anxiety Anxiety disorder 09/03/2017 Autism Developmental delay 09/03/2017 Dysphagia 09/03/2017 Gato's disease History of seizure 09/03/2017 History of seizures Hypothyroidism Mental retardation Pervasive developmental disorder Pica RUQ abdominal pain Seizures (CMS-HCC) Sleep apnea Strabismus Thickening of wall of gallbladder Thyroid nodule LEFT Vomiting 09/03/2017 Weight loss PAST SURGICAL HISTORY: Past Surgical History: Procedure Laterality Date EGD N/A 2018 Performed by Destiney Magaña MD at [facility] WISDOM TOOTH EXTRACTION FAMILY HISTORY: Family History Problem Relation Age of Onset Hypothyroidism Father SOCIAL HISTORY: Social History Socioeconomic History Marital status: Single Tobacco Use Smoking status: Never Smokeless tobacco: Never Substance and Sexual Activity Alcohol use: No Drug use: No Sexual activity: Defer Environmental History: Allergy Environmental History Lives with: care home Secondhand Smoke Exposure?: No Pets: no pets Mold/mildew: No Housing Type: care home facility AC: Central Air Conditioning Heating: Furnace Michelle: Carpet?: Yes Michelle: Hardwood?: Yes Michelle: Tile?: No ALLERGY: Allergies Allergen Reactions Linzess [Linaclotide] Nausea And Vomiting Zarontin [Ethosuximide] Rash MEDICATIONS Current Outpatient Medications Medication Sig Dispense Refill acetaminophen (TYLENOL) 325 mg tablet Take 2 tablets (650 mg total) by mouth. ammonium lactate (AMLACTIN) 12 % cream (Patient not taking: Reported on 02/24/2025) azelastine (ASTELIN) 137 mcg (0.1 %) nasal spray Administer 2 sprays into each nostril in the morning and 2 sprays before bedtime. Use in each nostril as directed. 30 mL 5 azelastine (OPTIVAR) 0.05 % ophthalmic solution Administer 1 drop to both eyes 2 (two) times a day.6 mL 12 bacitracin 500 unit/gram ointment Apply 1 application topically 2 (two) times a day. (Patient not taking: Reported on 02/24/2025) bisacodyl (BISCOLAX) 10 mg suppository Insert 1 [...] B-12 ORAL) Take 1,500 mcg by mouth. diazePAM (VALIUM) 5 mg tablet (Patient not taking: Reported on 02/24/2025) diphenhydrAMINE (COMPLETE ALLERGY) 25 mg capsule Take 25 mg by mouth every 6 (six) hours as needed for itching. (Patient not taking: Reported on 02/24/2025) diphenhydrAMINE (SOMINEX) 25 mg tablet Take 25 mg by mouth nightly as needed for sleep. (Patient not taking: Reported on 02/24/2025) divalproex (DEPAKOTE) 125 mg EC tablet Take [...] mg total) by mouth in the morning. fluticasone propionate (FLONASE) 50 mcg/actuation nasal spray Administer 2 sprays into each nostrilin the morning. 16 g 12 guaiFENesin (MUCINEX) 600 mg tablet extended release 12hr Take 1 tablet (600 mg total) by mouth every 12 (twelve) hours as needed. guaiFENesin (ROBITUSSIN) 100 mg/5 mL syrup Take by mouth every 4 (four) hours as needed for cough. guanFACINE (TENEX) 1 mg tablet Take 2 mg by mouth nightly. (Patient not taking: Reported on 02/24/2025) guanFACINE (TENEX) 2 mg tablet Take 1 tablet (2 mg total) by mouth every morning before breakfast. ibuprofen (ADVIL,MOTRIN) 600 mg tablet Take 1 tablet (600 mg total) by mouth every 6 (six) hours asneeded for pain. lamoTRIgine (LaMICtal XR) 300 mg tablet extended release 24hr lansoprazole (PREVACID) 30 mg capsule (Patient not taking: Reported on 02/24/2025) levothyroxine (SYNTHROID, LEVOTHROID) 100 MCG tablet Take 1 tablet (100 mcg total) by mouth in the morning. loratadine (CLARITIN) 10 mg tablet Take 10 mg by mouth daily. (Patient not taking: Reported on 02/24/2025) lubiprostone (AMITIZA) 24 MCG capsule Take 24 mcg by mouth 2 (two) times a day with meals. (Patientnot taking: Reported on 02/24/2025) MELATONIN ORAL Take 3 mg by mouth once daily at bedtime. minoxidil (ROGAINE) 5 % solution Apply 1 application topically. (Patient not taking: Reported on 02/24/2025) mometasone (NASONEX) 50 mcg/actuation nasal spray Administer 2 sprays into each nostril in the morning. 17 g 5 mupirocin (BACTROBAN) 2 % ointment Apply 1 Application topically 3 (three) times a day. NORTREL 1/35, 28, 1-35 mg-mcg per tablet ondansetron (ZOFRAN) 4 mg tablet Take 1 tablet (4 mg total) by mouth every 8 (eight) hours as needed for nausea or vomiting. paliperidone (INVEGA) 3 mg 24 hr tablet Take 1 tablet (3 mg total) by mouth every morning. pantoprazole (PROTONIX) 40 mg EC tablet (Patient not taking: Reported on 02/24/2025) polyethylene glycol (GLYCOLAX) 17 gram packet Take 17 g by mouth in the morning. QUEtiapine (SEROquel) 400 mg tablet Take 1 tablet (400 mg total) by mouth nightly. risperiDONE (RisperDAL) 0.5 mg tablet (Patient not taking: Reported on 02/24/2025) risperiDONE (RisperDAL) 1 mg tablet (Patient not taking: Reported on 02/24/2025) senna (SENOKOT) 8.6 mg tablet Take 17.2 mg by mouth 2 (two) times a day. (Patient not taking: Reported on 02/24/2025) sennosides (sennosides) 8.8 mg/5 mL syrup Take 8.6 mg by mouth 2 (two) times a day as needed. (Patient not taking: Reported on 02/24/2025) triamcinolone (KENALOG) 0.1 % lotion Apply 1 application topically daily as needed. (Patient not taking: Reported on 02/24/2025) No current facility-administered medications for this visit. ROS: A comprehensive 10+ review of systems was negative except for symptoms noted in HPI. Additional positives include: None. Physical Exam General appearance: well-nourished, well-hydrated, in NAD Head: No scalp scaling, no scalp rash, no alopecia Neck: No cervical LAD, full neck ROM Eyes: Pupils symmetric, EOMMI, no conjunctival injection, no infraorbital darkening, no periorbitaledema or rash ENT: Right TM- clear, +light reflex, no effusions, not bulging Left TM- clear, +light reflex, no effusions, not bulging Nose: External nose symmetric, 1+ nasal turbinates, normal nasal mucosa, no rhinorrhea, no polyps Mouth: No oropharyngeal lesions, MMM CV: RRR, no murmur, 2+ peripheral pulses, cap refill <2s Respiratory: Comfortable WOB, normal RR, no stertor, no stridor, CTAB with good aeration throughoutall lung dailey Abdomen: soft, non-distended Skin: No rash, hives, angioedema, or excoriations Neurologic: No focal deficit. Labs, imaging, and records: I have personally obtained and reviewed the labs/imaging below, with interpretation as follows: No results found for this or any previous visit. Assessment/ Plan: 1. Other allergy, initial encounter 2. Chronic rhinitis Chronic Rhinitis: - SPT was unable to be completed today due to recent antihistamine use. She is on cyproheptadine and azelastine nasal spray. - Ordered a respiratory allergy panel. - Reviewed proper avoidance measures during the visit today and provided a handout. - Start Flonase (fluticasone) 2 sprays in each nostril twice daily. It must be used everyday for the best results. Symptoms start to improve in about 1 week, and it may take 1-2 months of consistent everyday use to see the full benefit. - Continue azelastine nasal spray, 2 SEN, twice daily. - Start azelastine 0.05% eye drop, one drop in each eye twice daily. Can discontinue lubricant eyedrops if not helping. - Reviewed proper nasal sprays using instructions in details today. - Continue with cetirizine 10 mg daily as needed. - Advised to discontinue Benadryl use due to the short half life and worse comparative side effectsto second generation antihistamines. - Continue to follow up with ENT (Lyn Monroy PA-C). Follow up as needed pending allergy test results. Scribe Statement: Scribed for and in the presence of Shanna Del Valle MD by Jennifer Wolfe (scribe). I, Shanna Del Valle MD, personally performed the services described in the documentation, as scribed inmy presence, and confirm that the documentation is both accurate and complete. Shanna Del Valle MD [facility] Total time spent was 45 minutes: preparing to see the patient (e.g., review of tests), obtaining and/or reviewing history, examination, counseling and educating the patient/family/caregive, orders and documenting clinical information in the electronic or other health record. documented in this encounter Plan of Treatment DateTypeDepartmentCare Team (Latest Contact Info)Oahrwpizooe34/25/2025 12:45 PM ESTOffice Visit [facility] [address] [place] [address] Lyn Monroy PA-C [address] [address] NameTypePriorityAssociated DiagnosesDate/TimeRespiratory allergy panelLabRoutine Chronic rhinitis Other allergy, initial encounter 02/24/2025 10:42 AM ESTNameTypePriorityAssociated DiagnosesOrder Schedule Respiratory allergy panelLabRoutine Chronic rhinitis Other allergy, initial encounter 1 Occurrences starting 02/24/2025 until 02/24/2026documented as of this encounter Visit Diagnoses Diagnosis Other allergy, initial encounter- Primary Chronic rhinitis documented in this encounter Additional Health Concerns AssessmentNoted TimePHQ-9 Depression Total Score: 1:26 PM EDT documented as of this encounter Care Teams Team MemberRelationshipSpecialtyStart DateEnd Date Nathan Iyer DO [address] [place] [address] PCP - GeneralFamily Medicine08/23/17documented as of this encounter
--- OUTSIDE RECORDS SUMMARY | 2025-02-25 07:25 | XMS_ITS | Encounter Summary ---
Author Organization [facility] Address [address] [facility], [address] [place] [address] Care Team Providers Care Clamp Remover Name Role Phone Unavailable Primary Care Provider Unavailabl e Encounter Details DateTypeDepartmentCare Team (Latest Contact Info)Gyxxmjzzdfm63/06/2025 7:25 AM ESTHospital Encounter [facility] Pre-Admit Testing [address] [place], [place] [id number] Social History Tobacco UseTypesPacks/DayYears UsedDateSmoking Tobacco: Never Assessed CommentsUnknownSex and Gender InformationValueDate RecordedSex Assigned at Not on fileLegal ZrnWfxuzw12/22/2025 9:46 AM EDTGender IdentityNot on fileSexual OrientationNot on filedocumented as of this encounter Plan of Treatment DateTypeDepartmentCare Team (Latest Contact Info)Kcoplrynprf56/07/2025 11:[address] [phone] ORDER FAXED *WITH ANESTHESIA PT IN INTERMEDIATE DEVELOPMENTALLY DISABLED OK PER JOY AND CHASE. [facility] W/ LIZ. REMY JOSEPH WHALEN IS LEGAL GUARDIAN - JOSEPH WHALEN WILL BE W/ PT DOS AND WILL BE THERE TO SIGN CONSENTS. ARRIVAL AT 930 AM 02/26/2025 1:[address] [address] ORDER FAXED *WITH ANESTHESIA PT IN INTERMEDIATE DEVELOPMENTALLY DISABLED OK PER JOY AND CHASE. [facility] W/ LIZ. REMY JOSEPH WHALEN IS LEGAL GUARDIAN - JOSEPH WHALEN WILL BE W/ PT DOS AND WILL BE THERE TO SIGN CONSENTS. ARRIVAL AT 930 AM documented as of this encounter Visit Diagnoses Not on filedocumented in this encounter
--- OUTSIDE RECORDS SUMMARY | 2025-02-25 08:52 | XMS_ITS | Encounter Summary ---
Author Organization [facility] Address [id number] [address] [place] [address] Care Team Providers Care Vision Specialist Name Role Phone Nathan Iyer Primary Care Provider [phone] Encounter Details DateTypeDepartmentCare Team (Latest Contact Info)Frtxefeaekh60/05/2025Travel Social History Tobacco UseTypesPacks/DayYears UsedDateSmoking Tobacco: NeverSmokeless Tobacco: NeverAlcohol UseStandard Drinks/WeekCommentsNo0 (1 standard drink = 0.6 oz pure alcohol)PHQ-2AnswerDate RecordedTotal Nguav842ChildcareAnswerDate QicxohlrZtjenmaaaSstqege26/13/2019EmploymentAnswerDate RecordedEmploymentUnknown 10/02/2018Purpose - LifeAnswerDate RecordedPurpose and direction in lifeUnknown 1CommentsUnknownSex and Gender InformationValueDate RecordedSex Assigned at BirthNot on fileLegal RllIuwvzy80/26/2018 1:10 PM EDTGender Identity Not on fileSexual OrientationNot on filedocumented as of this encounter Plan of Treatment DateTypeDepartmentCare Team (Latest Contact Info)Rzlnegdncog29/25/2025 12:45 PM ESTOffice Visit [facility] [address] [place] [address] Lyn Monroy, PA-C [address] [address] documented as of this encounter Visit Diagnoses Not on filedocumented in this encounter Additional Health Concerns AssessmentNoted TimePHQ-9 Depression Total Score: 1:26 PM EDT documented as of this encounter Care Teams Team MemberRelationshipSpecialtyStart DateEnd Date Nathan Iyer DO [address] [place] [address] PCP - GeneralFamily Medicine08/23/17documented as of this encounter
--- OUTSIDE RECORDS SUMMARY | 2025-02-25 08:52 | XMS_ITS | Clinical Summary ---
Author Organization [facility] Address [address] [place] [address] Care Team Providers Care Poultry Buyer Name Role Phone Christos Iyerel Luana RENEE Primary Care Provider Social History Tobacco UseTypesPacks/DayYears UsedDateSmoking Tobacco: Never Assessed CommentsUnknownSex and Gender InformationValueDate RecordedSex Assigned at Not on fileLegal AljBhfbqr48/02/2012 8:23 AM ESTGender IdentityNot on fileSexual OrientationNot on file Plan of Treatment Health MaintenanceDue DateLast DoneCommentsAnxiety Vpnxsatyb49/12/2011Depression Kziaabzyd78/12/2011HIV Gnncmaxry85/12/2011Hepatitis C Oawiixgwo59/12/2011 DTaP,Tdap,Td Vaccine (1 - Tdap)01/02/2012Hepatitis B Vaccine (1 of 3 - 19+ 3- dose series)01/02/2012Cervical Cancer Cjpxbuwbp16/12/2014HPV Vaccine (1 - 3-dose SCDM series)01/02/2020Covid-19 Vaccine ( - 2024- season)2024Influenza Vaccine (#1)2024 Insurance [address] [place] [address] Care Teams Team MemberRelationshipSpecialtyStart DateEnd Date Nathan Iyer DO [facility]09/03/12
--- OUTSIDE RECORDS SUMMARY | 2025-02-25 08:52 | XMS_ITS | Clinical Summary ---
Author Organization [facility] Address [address] [facility] [place] [address] Care Team Providers Care Billposting Supervisor Name Role Phone Unavailable Primary Care Provider Unavailabl e Source Comments The following information is NOT included in Care Everywhere downloads:Psychiatric notes, ECG results, Cardiac Rehab notes, Pulmonary Function notes, data from SmartForms (includes but not limited toPregnancy data,audiograms, eye exams, pre-surgical evaluation notes, well-child exam data).[facility] Allergies Active AllergyReactionsCriticalityNoted GpxwWjnstqlgIklmayqangk05/11/2024 BkeydxkxzhegAlov27/27/2015 Medications MedicationSigDispense QuantityRefillsLast FilledStart DateEnd DateStatus Lactobacillus (ACIDOPHILUS) CAPS Take by mouth.Active CLONIDINE HCL ORAL Take by mouth.Active docusate sodium (COLACE) 100 MG capsule Take 100 mg by mouth 2 times daily.Active Fluticasone Propionate (FLONASE NASAL) [place] into each nostril.Active Selenium (SELENIMIN ORAL) Take by mouth.Active Sennosides (SENNA) 15 MG tablet Take 1 Tab by mouth daily as needed for Constipation.Active topiramate (TOPIRAGEN) 25 MG tablet Take 75 mg by mouth 2 times daily.Active trihexyphenidyl 2 MG tablet Take 2 mg by mouth 3 times daily.Active Zinc Gluconate 50 MG TABS Take by mouth.Active chlorhexidine (PERIDEX) 0.12 % oral solution Take 15 mL by mouth 2 times daily. 1 Bottle ctive ibuprofen (MOTRIN) 600 MG tablet Take 1 Tab by mouth every 6 hours as needed for Pain. 30 Tab ctive busPIRone (BUSPAR) 30 MG tablet Take 30 mg by mouth daily.Active famotidine (PEPCID) 40 MG tablet Take 40 mg by mouth daily.Active GUANFACINE HCL ORAL Take by mouth.Active lamoTRIgine (LaMICtal) 100 MG tablet Take 100 mg by mouth daily.Active loratadine (CLARITIN) 10 MG tablet Take 10 mg by mouth daily.Active melatonin 3 MG TABS tablet Take 3 mg by mouth at bedtime.Active norethindrone-ethinyl estradiol (Nortrel 135, 21,) 1-35 MG-MCG tablet Take 1 Tablet by mouth daily.Active paliperidone (INVEGA) 3 MG 24 hour tablet Take 6 mg by mouth daily.Active polyethylene glycol (MIRALAX) packet Dissolve 17 g in 8 ounces of liquid and drink daily.Active QUEtiapine Fumarate (SEROQUEL ORAL) Take by mouth.Active levothyroxine (SYNTHROID) 200 MCG tablet Take 200 mcg by mouth daily.Active Acetaminophen (Tylenol) 325 MG CAPS Take by mouth.Active divalproex (DEPAKOTE) 125 MG EC tablet Take 125 mg by mouth 3 times daily.Active Resolved Problems ProblemNoted DateDiagnosed DateResolved FplvVaxemh65 Social History Tobacco UseTypesPacks/DayYears UsedDateSmoking Tobacco: NeverSmokeless Tobacco: Never Tobacco Cessation:Counseling Given: Not Answered Alcohol UseStandard Drinks/WeekCommentsNever0 (1 standard drink = 0.6 oz pure alcohol)Substance UseTypesUse/WeekCommentsNeverCommentsNoSex and Gender InformationValueDate RecordedSex Assigned at BirthNot on fileLegal SexFemale 07/06/2014 1:56 PM EDTGender IdentityNot on fileSexual OrientationNot on file Last Filed Vital Signs Vital SignReadingTime TakenCommentsBlood Aoqloqso117/7303/02/2024 12:30 PM EST Nwnho74920/11/2024 12:30 PM TDXDrqjlfdqeku96.7 ??C (98.1 ??F)03/02/2024 12:30 PM ESTRespiratory Fhms785703/02/2024 12:30 PM ESTOxygen Ffpstnbued85%03/02/2024 12:30 PM ESTInhaled Oxygen Concentration--Jqgurw55 kg (136 lb 9.6 oz)03/02/2024 9:11 AM PGFJctxrd011.6 cm (5' 4 )03/02/2024 9:11 AM ESTBody Mass Index23.45105/02/2023 9:11 AM EST Plan of Treatment DateTypeDepartmentCare Team (Latest Contact Info)Sbexivftvoq53/02/2026 11:00 AM EDTOffice Visit [facility] [address], [place] [id number] Kaushal Wilson, [facility] [address] [place] [address] Health MaintenanceDue DateLast DoneCommentsHIV Test01/02/2008Hepatitis C Imibgtlp89/12/2011Tdap Hpovfat5101/01/2011Hepatitis A (HAV) Vaccine (optional start 19+ years)01/02/2012Hepatitis B (HBV) Vaccine (1 of 3 - 19+ 3-dose series) 01/02/2012nnual Wellness Visit (G0438)12/21/2013Pap Smear2014HPV Vaccine (optional start 27-45 years)01/02/2020Dental Oral Exam4Dental Tcafmhlysyg60OVID-19 Vaccine ( - 2024- season)2024 05/24/2020, 05/03/2020Influenza Vaccine (#1)2024Dental X-Ray: Bitewings Shingles (RZV) Vaccine (1 of 2)2043Mammography DiscontinuedPneumococcal Vaccine(s)Aged OutNo longer eligible based on patient's age to complete this topic Procedures Procedure NamePriorityDate/TimeAssociated DiagnosisCommentsPROPHY ADULT 14 & QPKPCQwgyyig03/11/2024 12:00 AM ESTCOMPREHENSIVE KZQLFzmnqou11/11/2024 12:00 AM ESTfrom Last 3 Months or Most Recently Relevant to Health Maintenance Insurance * Guarantor: Barbra Ascencio TypeRelation to PatientDate of BirthPhone Billing DbkmuzvNljyixzmxnwpyNdmw[address] [place] [address]
--- OUTSIDE RECORDS SUMMARY | 2025-02-25 08:52 | XMS_ITS | Clinical Summary ---
Author Organization [employer] [facility] [facility] Address [id number] [address] [place] [address] Care Team Providers Care Java Programmer Name Role Phone Nathan Iyer DO Primary Care Provider [phone] Allergies Active AllergyReactionsCriticalityNoted DateCommentsLinaclotideNausea And Jmicizik71/04/8808VzmxqlefurmuGuooGzh85/27/2015 Medications MedicationSigDispense QuantityRefillsLast FilledStart DateEnd DateStatus cloNIDine (CATAPRES) 0.2 mg tablet Take 1 tablet (0.2 mg total) by mouth in the morning and 1 tablet (0.2 mg total) at noon and 1 tablet (0.2 mg total) before bedtime.Active divalproex (DEPAKOTE) 125 mg EC tablet Take 1 tablet (125 mg total) by mouth in the morning and 1 tablet (125 mg total) at noon and 1 tablet (125 mg total) in the evening and 1 tablet (125 mg total) before bedtime.Active docusate sodium (COLACE) 100 mg capsule Take 1 capsule (100 mg total) by mouth in the morning and 1 capsule (100 mg total) at noon and 1 capsule (100 mg total) before bedtime.Active guanFACINE (TENEX) 1 mg tablet Take 2 mg by mouth nightly.Active guanFACINE (TENEX) 2 mg tablet Take 1 tablet (2 mg total) by mouth every morning before breakfast.Active diphenhydrAMINE (SOMINEX) 25 mg tablet Take 25 mg by mouth nightly as needed for sleep.Active ibuprofen (ADVIL,MOTRIN) 600 mg tablet Take 1 tablet (600 mg total) by mouth every 6 (six) hours as needed for pain. Active guaiFENesin (MUCINEX) 600 mg tablet extended release 12hr Take 1 tablet (600 mg total) by mouth every 12 (twelve) hours as needed.Active ondansetron (ZOFRAN) 4 mg tablet Take 1 tablet (4 mg total) by mouth every 8 (eight) hours as needed for nausea or vomiting.Active sennosides (sennosides) 8.8 mg/5 mL syrup Take 8.6 mg by mouth 2 (two) times a day as needed.Active triamcinolone (KENALOG) 0.1 % lotion Apply 1 application topically daily as needed.Active levothyroxine (SYNTHROID, LEVOTHROID) 100 MCG tablet Take 1 tablet (100 mcg total) by mouth in the morning.Active ammonium lactate (AMLACTIN) 12 % cream 07/08/2017Active diazePAM (VALIUM) 5 mg tablet 08/06/2017Active divalproex sprinkle (DEPAKOTE SPRINKLE) 125 mg capsule 10/10/2017Active lamoTRIgine (LaMICtal XR) 300 mg tablet extended release 24hr 10/10/2017Active NORTREL 1/35, 28, 1-35 mg-mcg per tablet 10/07/2017Active risperiDONE (RisperDAL) 1 mg tablet 10/10/2017Active risperiDONE (RisperDAL) 0.5 mg tablet 10/10/2017Active loratadine (CLARITIN) 10 mg tablet Take 10 mg by mouth daily.Active MELATONIN ORAL Take 3 mg by mouth once daily at bedtime.Active senna (SENOKOT) 8.6 mg tablet Take 17.2 mg by mouth 2 (two) times a day.Active acetaminophen (TYLENOL) 325 mg tablet Take 2 tablets (650 mg total) by mouth.Active bisacodyl (BISCOLAX) 10 mg suppository Insert 1 suppository (10 mg total) into the rectum as needed for constipation. Active diphenhydrAMINE (COMPLETE ALLERGY) 25 mg capsule Take 25 mg by mouth every 6 (six) hours as needed for itching.Active guaiFENesin (ROBITUSSIN) 100 mg/5 mL syrup Take by mouth every 4 (four) hours as needed for cough.Active busPIRone (BUSPAR) 10 mg tablet 1 tablet (10 mg total) in the morning and 1 tablet (10 mg total) at noon and 1 tablet (10 mg total)before bedtime.12/19/2017Active lansoprazole (PREVACID) 30 mg capsule 01/23/2018Active pantoprazole (PROTONIX) 40 mg EC tablet 02/27/2018Active minoxidil (ROGAINE) 5 % solution Apply 1 application topically.Active cyanocobalamin, vitamin B-12, (VITAMIN B-12 ORAL) Take 1,500 mcg by mouth.Active lubiprostone (AMITIZA) 24 MCG capsule Take 24 mcg by mouth 2 (two) times a day with meals.Active bacitracin 500 unit/gram ointment Apply 1 application topically 2 (two) times a day.Active polyethylene glycol (GLYCOLAX) 17 gram packet Take 17 g by mouth in the morning.Active famotidine (PEPCID) 40 mg tablet Take 1 tablet (40 mg total) by mouth in the morning.Active mupirocin (BACTROBAN) 2 % ointment Apply 1 Application topically 3 (three) times a day.Active paliperidone (INVEGA) 3 mg 24 hr tablet Take 1 tablet (3 mg total) by mouth every morning.Active QUEtiapine (SEROquel) 400 mg tablet Take 1 tablet (400 mg total) by mouth nightly.Active azelastine (ASTELIN) 137 mcg (0.1 %) nasal spray Indications:Nasal congestionAdminister 2 sprays into each nostril in the morning and 2 sprays before bedtime. Use in each nostril as directed. 30 mL 5Active mometasone (NASONEX) 50 mcg/actuation nasal spray Indications:Nasal congestionAdminister 2 sprays into each nostril in the morning. 17 g 5Active fluticasone propionate (FLONASE) 50 mcg/actuation nasal spray Administer 2 sprays into each nostril in the morning. 16 g 1215Active azelastine (OPTIVAR) 0.05 % ophthalmic solution Administer 1 drop to both eyes 2 (two) times a day. 6 mL 1215Active Active Problems ProblemNoted DateDiagnosed DateNasal skhkidlftv27/04/2025Recurrent sinusitis 12/24/20249166Ycfviqrfm44/14/2019Thickening of wall of jxtzohwqagi91/15/2018 Developmental delay09/03/20175121Tnhandws48/15/5698Iyforksta54/15/2018Autism 09/03/2017Thyroid tikyea4709/03/20175310Luietyumlfsxca52/15/2018History of seizure 09/03/2017Anxiety rmmdydgc71/15/2018 Resolved Problems ProblemNoted DateDiagnosed DateResolved DateBiliary xzflruiath94/05/2019 07/01/2019Chronic cuopyjrttddkv30Weight loss09/03/2017 07/01/2019 Encounters DateTypeDepartmentCare RdcnKmordllaqgo90/05/2025 9:30 AM ESTOffice Visit [facility] [address] [place] [address] Shanna Del Valle MD Other allergy, initial encounter (Primary Dx); Chronic jskmhhdu70/05/3897Ujrcqt98/04/2025 10:15 AM EDTOffice Visit [facility] [address] [place] [address] Lyn Monroy, TAMIKO Recurrent sinusitis (Primary Dx); Recurrent sinus infections; Nasal rwnpbkpjow02/04/2025Travelfrom Last 3 Months Family History Medical HistoryRelationNameCommentsHypothyroidismFatherRelationNameStatus CommentsFatherAliveMotherAlive Social History Tobacco UseTypesPacks/DayYears UsedDateSmoking Tobacco: NeverSmokeless Tobacco: Never Tobacco Cessation:Counseling Given: No Alcohol UseStandard Drinks/WeekCommentsNo0 (1 standard drink = 0.6 oz pure alcohol)PHQ-2AnswerDate RecordedTotal Wmplj892ChildcareAnswerDate MrwtahvbPanxvzhjdNwtwswx11/13/2019EmploymentAnswerDate RecordedEmploymentUnknown 10/02/2018Purpose - LifeAnswerDate RecordedPurpose and direction in lifeUnknown 1CommentsUnknownSex and Gender InformationValueDate RecordedSex Assigned at BirthNot on fileLegal MghLfwnxm57/26/2018 1:10 PM EDTGender Identity Not on fileSexual OrientationNot on file Last Filed Vital Signs Vital SignReadingTime TakenCommentsBlood Pabqcaqc204/7502/24/2025 9:34 AM EST Beodh701102/24/2025 9:34 AM BWHXwfpzpzwtyi19.3 ??C (97.4 ??F)01/27/2018 10:31 AM EDTRespiratory Gumk612406/24/2018 9:49 AM ESTOxygen Jflwkxxxpx42%02/24/2025 9:34 AM ESTInhaled Oxygen Concentration--Pzsjyy36 kg (136 lb 9.6 oz)02/24/2025 9:34 AM LJVGgclzu768.1 cm (5' 5 )07/01/2019 1:20 PM EDTBody Mass Index22.7303 1:20 PM EDT Plan of Treatment DateTypeDepartmentCare Team (Latest Contact Info)Fnwszmcszof73/25/2025 12:45 PM ESTOffice Visit [facility] [address] [place] [address] Lyn Monroy, PA-C [address] [address] Health MaintenanceDue DateLast DoneCommentsDepression Rovadbdsa26/12/2005Tobacco Ihlxgnyyh46/12/2005Pap Smear2014DTaP,Tdap and Td Vaccines (3 - Td or Tdap) /, 11/02/2005COVID-19 Vaccine ( season)2024 02/06/2024, 02/06/2023, 05/24/2020, Additional history existsAdult BMI Screening 6104/26/2024Influenza FkaxbmtVvierplko57/22/2025 Medical Devices Not on file Insurance [address] [place] [address] Advance Directives TypeDate RecordedPatient RepresentativeExplanationLiving Will09/03/2017 4:36 PM LEGAL GURADIANSHIP/AGREEMENT FOR CARE [facility] Care Teams Team MemberRelationshipSpecialtyStart DateEnd Date Nathan Iyer DO [address] [place] [address] PCP - GeneralFamily Medicine08/23/17
--- OUTSIDE RECORDS SUMMARY | 2025-02-25 08:53 | XMS_ITS | Encounter Summary ---
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 Name Role Phone Pete Mcguire MD Unavailable [phone] Nathan Iyer MD Primary Care Provider [phone] Encounter Details DateTypeDepartmentCare Team (Latest Contact Info)Vwcmlvatnhm85/04/2025amboo flowsheet [facility] [address] [place] [address] Lai Alston, DPM FACFAS [address] [place] [address] Social History Tobacco UseTypesPacks/DayYears UsedDateSmoking Tobacco: NeverSmokeless Tobacco: NeverAlcohol UseStandard Drinks/WeekCommentsNever0 (1 standard drink = 0.6 oz pure alcohol)CommentsUnknownSex and Gender InformationValueDate Recorded Sex Assigned at BirthNot on fileLegal OozKvoawb97/15/2023 11:47 PM EDTGender IdentityNot on fileSexual OrientationNot on filedocumented as of this encounter Plan of Treatment DateTypeDepartmentCare Team (Latest Contact Info)Hvvhhenyaem05/03/2026 9:30 AM ESTProcedure Visit [facility] [address] [place] [address] Lai Alston, DPM FACFAS [address] [place] [address] documented as of this encounter Visit Diagnoses Not on filedocumented in this encounter Care Teams Team MemberRelationshipSpecialtyStart DateEnd Date Nathan Iyer MD [address] [place] [address] [address] [place] [id number] PCP - GeneralFamily Vrdsizrd72/19/24 Pete Mcguire MD Referring PhysicianNeurology07/09/23documented as of this encounter
--- OUTSIDE RECORDS SUMMARY | 2025-02-25 08:53 | XMS_ITS | Clinical Summary ---
Author Organization [facility] Address [address] [place] [address] Care Team Providers Care Hog Raiser Name Role Phone Pete Mcguire MD Unavailable Nathan Iyer MD Primary Care Provider Allergies Active AllergyReactionsCriticalityNoted DateCommentsEthosuximideRashLow 09/15/20142114Kdkcmsxeyka68/16/2024 Medications MedicationSigDispense QuantityRefillsLast FilledStart DateEnd DateStatus ammonium lactate (Amlactin) 12 % cream Apply 2 application topically DailyActive busPIRone (Buspar) 30 MG tablet Take 30 mg by mouth in the morning and 30 mg in the evening and 30 mg before bedtime.Active cloNIDine (Catapres) 0.2 MG tablet Take 0.2 mg by mouth in the morning and 0.2 mg at noon and 0.2 mg in the evening and 0.2 mg before bedtime.Active divalproex (Depakote) 125 MG EC tablet Take 500 mg by mouth in the morning and 500 mg in the evening and 500 mg before bedtime.Active divalproex (Depakote) 125 MG EC tablet Take 1,000 mg by mouth at bedtime Do not crush, chew, or split.Active famotidine (Pepcid) 40 MG tablet Take 40 mg by mouth DailyActive guanFACINE (Tenex) 2 MG tablet Take 2 mg by mouth in the morning and 2 mg before bedtime.Active lamoTRIgine (LaMICtal) 100 MG tablet Take 100 mg by mouth at bedtimeActive lamoTRIgine (LaMICtal) 150 MG tablet Take 150 mg by mouth in the morning.Active loratadine (Claritin) 10 MG tablet Take 10 mg by mouth DailyActive Melatonin 3 MG tablet dispersible Take 3 mg by mouth at bedtimeActive norethindrone-ethinyl estradiol (Ortho-Novum, Nortrel) 1-35 MG-MCG tablet Take 1 tablet by mouth DailyActive paliperidone (Invega) 3 MG 24 hr tablet Take 3 mg by mouth in the morning and 3 mg before bedtime. Do not crush, chew, or split..Active polyethylene glycol, PEG, 3350 (Miralax) 17 g packet Take 17 g by mouth DailyActive QUEtiapine (SEROquel) 200 MG tablet Take 200 mg by mouth at bedtimeActive QUEtiapine (SEROquel) 400 MG tablet Take 400 mg by mouth at bedtimeActive levothyroxine (Synthroid, Levoxyl) 200 MCG tablet Take 200 mcg by mouth in the morning. Take before meals.Active levothyroxine (Synthroid, Levoxyl) 25 MCG tablet Take 25 mcg by mouth in the morning. Take before meals.Active diazePAM (Valium) 5 MG tablet Indications:Gait instability,Developmental delay,Seizure disorder (HCC)Take 1 tablet (5 mg) by mouth 1 time for 1 dose 30 minutes prior to MRI 1 tablet 5Active Active Problems ProblemNoted DateDiagnosed DateMental oxwikmplib03/25/2024 Overview (01/15/2024): Mental Retardation She has undelrying Autism, MRDD and anxiety with s/s of PBA. She follows with psychiatry and was recently started on Lexapro and is doing well. Pseudobulbar imlxjh2208/06/2023Gait jvlsdnvwqaj65/16/2024 Overview (01/15/2024): Patient has been experiencing increased gait instability and balance problems in the past month noted by [place], increased tone in her extremities, dizziness when looking upwards which has been contributing to falls. She has had dizziness in the past, as noted above. She had an unwitnessed fall without reported loss of consciousness. She was evaluated recently after the [facility] at [facility] and had a He ad CT, which revealed no acute process. There was left supraorbital soft tissue laceration. Blood work 11/23/2022 revealed Lamictal 12.4, valproic acid 85. Carotid ultraound was very limited due to patient cooperation, no hemodynamic significant stenosis noted. For MRI or CTA she would require sedation per [place]. Her balance is stable and there have been no falls since her last visit. Eusbvzoxa71/14/2019Anxiety xrisgqai24/15/0965Tnieqz53/15/2018History of seizure 09/03/2017Seizure disorder Overview (01/15/2024): Patient with history of seizure disorder. She was previously on Topamax and this was weaned. Ambulatory EEG from 2018 was normal. She is currently treated with Depakote and Lamictal. Bloodwork 08/07/2022 revealed Lamictal level 11.2, Depakote level 80.3, platelets 231. She is overall at baseline with no recent breakthrough events. Encounters DateTypeDepartmentCare XdmcVbwwkeahwzx31/04/2025 9:30 AM ESTProcedure Visit [facility] [address] [place] [address] Lai Alston, DPM FACFAS Onychomycosis (Primary Dx); Pain in right toe(s); Pain in left toe(s)5Bamboo flowsheet [facility] [address] [place] [address] Lai Alston, DPM FACFAS 5Abstract [facility] [address] [place] [address] Lai Alston, DPM FACFAS from Last 3 Months Social History Tobacco UseTypesPacks/DayYears UsedDateSmoking Tobacco: NeverSmokeless Tobacco: Never Tobacco Cessation:Counseling Given: Yes Alcohol UseStandard Drinks/WeekCommentsNever0 (1 standard drink = 0.6 oz pure alcohol)CommentsUnknownSex and Gender InformationValueDate RecordedSex Assigned at BirthNot on fileLegal LxcVfeocw44/15/2023 11:47 PM EDTGender IdentityNot on fileSexual OrientationNot on file Last Filed Vital Signs Vital SignReadingTime TakenCommentsBlood Iedlzdab206/6411 9:47 AM EST Gzxqg7347 9:47 AM ESTTemperature--Respiratory Zawv6926 11:05 AM EDTOxygen Xobdjwosxv17%01/21/2024 11:05 AM EDTInhaled Oxygen Concentration-- Mdprms73.1 kg (128 lb)02/23/2025 9:47 AM BQTIkjjdm713.1 cm (5' 5 )02/23/2025 9:47 AM ESTBody Mass Index21.311 9:47 AM EST Plan of Treatment DateTypeDepartmentCare Team (Latest Contact Info)Etqhzximrpm35/03/2026 9:30 AM ESTProcedure Visit [facility] [address] [facility] [address] Lai Alston, DPM FACFAS [address] [facility] [place] [address] Health MaintenanceDue DateLast DoneCommentsPap Smear2014Cervical Cancer Qsqrjlaci85/12/2023HPV/Hzfpsw373COVID-19 Vaccine ( season) , 05/24/2020, 05/03/2020Influenza SpgpmrhKvxcovptc37/22/2025 Pneumococcal Vaccine: Pediatrics (0 to 5 Years) and At-Risk Patients (6 to 64 Years)Aged OutNo longer eligible based on patient's age to complete this topic Insurance [address] [place] [address] Care Teams Team MemberRelationshipSpecialtyStart DateEnd Nathan Iyer MD [address] [place] [address] [address] [place] [address] PCP - GeneralFamily Yyzfasis41/19/24 Pete Mcguire MD Referring PhysicianNeurology07/09/23
--- OUTSIDE RECORDS SUMMARY | 2025-02-25 08:53 | XMS_ITS | Clinical Summary ---
Author Organization [facility] Address [address], [address] [place] [address] Care Team Providers Care [employer] Name Role Phone Unavailable Primary Care Provider Unavailabl e Encounters DateTypeDepartmentCare XnpcCsvasefzlni42/06/2025 7:25 AM ESTHospital Encounter [facility] Pre-Admit Testing [address] [place] [address] [id number] 01/21/2025Transcribe Orders [facility] [address] [place] [address] Ramos Feliciano DO Seizure disorder (HCC) (Primary Dx); Unsteady gaitfrom Last 3 Months Social History Tobacco UseTypesPacks/DayYears UsedDateSmoking Tobacco: Never Assessed CommentsUnknownSex and Gender InformationValueDate RecordedSex Assigned at Not on fileLegal IgnJafbqp20/22/2025 9:46 AM EDTGender IdentityNot on fileSexual OrientationNot on file Plan of Treatment DateTypeDepartmentCare Team (Latest Contact Info)Vvmrhzvblvz12/07/2025 11:[address] [id number] ORDER FAXED *WITH ANESTHESIA PT IN LONG-TERM DEVELOPMENTALLY DISABLED OK PER NATHALIE. [facility] W/ NURSELUCIE. MOMJOSEPH IS LEGAL GUARDIAN - JOSEPH WHALEN WILL BE W/ PT DOS AND WILL BE THERE TO SIGN CONSENTS. ARRIVAL AT 930 AM 02/26/2025 1:[address] [address] ORDER FAXED *WITH ANESTHESIA PT IN LONG-TERM DEVELOPMENTALLY DISABLED OK PER NATHALIE. [facility] W/ [facility]URSEL[facility]CIE. MOMJOSEPH IS LEGAL GUARDIAN - JOSEPH WHALEN WILL BE W/ PT DOS AND WILL BE THERE TO SIGN CONSENTS. ARRIVAL AT 930 AM Health MaintenanceDue DateLast DoneCommentsDepression Xmqggd1701/01/2005Varicella vaccine (1 of 2 - 13+ 2-dose series)2006HIV hteiac7801/02/2008Hepatitis C nexmrk6501/01/2011DTaP/Tdap/Td vaccine (1 - Tdap)01/02/2012Hepatitis B vaccine (1 of 3 - 19+ 3-dose series)01/02/2012Pap smear2014Cervical cancer screen 2023HPV (without or with Pap)2023Flu vaccine (#1)5COVID-19 Vaccine ( season)2024nnual Wellness Visit (Medicare)01/21/2025 HPV vaccine (No Doses Required)CompletedHepatitis A vaccineAged OutNo longer eligible based on patient's age to complete this topicHib vaccineAged OutNo longer eligible based on patient's age to complete this topicMeningococcal (ACWY) vaccineAged OutNo longer eligible based on patient's age to complete this topicMeningococcal B vaccineAged OutNo longer eligible based on patient's age to complete this topicPneumococcal 0-49 years VaccineAged OutNo longer eligible based on patient's age to complete this topicPolio vaccineAged OutNo longer eligible based on patient's age to complete this topic Insurance * Guarantor: Barbra Ascencio TypeRelation to PatientDate of BirthPhone Billing AddressPersonal/VcvyvhChdd1995 [facility] [address] [place] [address] [place] [phone]
--- NOTE | 2025-02-25 08:56 | US_ITS ---
The [address] [address] Patient Name: PONCE ESTEVES MRN: [id number] date: 1995 Sex: F Assigned Patient Location: [place] Current Patient Location: [place] Accession/Order Number: [id number] Exam Date: 02/25/2025 09:00 Report Date: 02/25/2025 11:15 At the request of: NIRU JOE MD Procedure: US thyroid THYROID ULTRASOUND COMPARISON: 12/25/2023 CLINICAL DATA: Hyperthyroidism The right thyroid lobe measures 3.4 x 1.4 x 0.5 cm. The left lobe measures 3.8 x 0.6 x 0.8 cm. The isthmus measures 3 mm. There is heterogeneous echogenicity. At the superior pole on the left, there is a hypoechoic nodule measuring 5 x 3 x 5 mm, also seen on the prior though is currently smaller. At the inferior pole on the left, there is another small hypoechoic nodule measuring 3 mm. This is only imaged in the transverse plane. It is similar to the comparison. No new nodularity is seen. US/US thyroid IMPRESSION: SMALL THYROID GLAND WITH WITH LEFT-SIDED NODULARITY. THE DOMINANT NODULE HAS DECREASE IN SIZE. Impression dictated by: Brooke Toribio M.D. 02/25/2025 11:15 AM Dictation Location: [place] [address] Electronically authenticated by: [id number] Y Date: 02/25/2025 11:15
--- OUTSIDE RECORDS SUMMARY | 2025-02-25 08:56 | XMS_ITS | CCD ---
Author Organization [facility] Care Team Providers Care Junior Linux Administrator Name Role Phone PHYSICIAN, DEFAULT Unavailable [...] Care Provi roselyn Kris Mcguire MD Unavailable [phone] Unallocated MD, Noms Provider Primary Care Hilarioi roselyn ELMER TOPETE Attending Unavailable PROVIDER, UNKNOWN Admitting Unavailable PROVIDER, UNKNOWN Admitting Unavailable PROVIDER, UNKNOWN Attending Unavailable ELMER TOPETE Admitting Unavailable ELMER TOPETE Attending Unavailable Iyer Nathan OLSON Primary Care Provider [phone] Kris Mcguire MD Unavailable Kris Mcguire MD Unavailable [phone] Iyer DO, Nathan A Primary Care Provider [phone] PHILIP MONROY Attending Unavailable IYERNATHAN Referring Unavailable IYER, NATHAN A Primary Care Unavailable Iyer DO, Nathan A Primary Care Provider [phone] Jadiel OPERATIONS PLANNER-FOUNDRY MOLDER-CKenisha Attending Provider Kenisha Duvall Attending Unavailable Iyer, Nathan Craft Primary Care Unavailable Duvall Kenisha E Admitting Unavailable Duvall, Kenisha E Admitting Unavailable Duvall, Kenisha Mata Attending Unavailable Iyer, Nathan Craft Primary Care Unavailable Iyer, Nathan Luana Primary Care Unavailable Eduarda De Anda Admitting Unavailable Eduarda De Anda Attending Unavailable ДМИТРИЙ FELICIANO Referring Unavailab le Дмитрий Feliciano DO Attending Provider [phone] Nathan Iyer MD Primary Care Provider EDUARDA DE ANDA Attending Unavailable DOLLAI REYNOLDS Attending Unavailable EDUARDA DE ANDA Attending Unavailable DOLCELAI Attending Unavailable DOLCE, LAI Valentine Attending Unavailable DOLCE, LAI Valentine Attending Unavailable DOLCE, LAI Valentine Attending Unavailable Allergies Allergy ClassificationReported Allergen(s)Allergy TypeDate of OnsetReaction(s) Facility (20 sources)Ethosuximide; Translations: [ETHOSUXIMIDE]Drug Zwossks18-97-4251Mppu [facility] (1 source)AllopurinolDrug Bsgaweu32-34-1965Xwk[facility] ([facility] source)EthosuximideDrug Rlupysj29-97-5491TxlLima [facility] (20 sources)linaclotide; Translations: [LINACLOTIDE]Drug Xosqssd58-91-9583 Unknown ReactionNOOK Healthcare (2 sources)EthosuximideDrug Lfvczjt10-12-9377PrnyJuuBnwoxw Health System (2 sources)linaclotideDrug Duwuqek46-55-2641Jsonxk And VomitingProMedica [facility] (1 source)EthosuximideDrug Jrdqugs91-36-6179CrsuqkocySelect [facility] (1 source)linaclotideDrug Nyzhucn81-69-9975YltaicpgqSelect Medical Specialty [facility] [place] [facility] Medications Current Medications MedicationDrug Class(es)DatesSig (Normalized)Sig (Original)acetaminophen 325 mg oral capsule (13 sources)Start: 52-98-2532onkt 2 capsules by mouth every four to six hours as needed for painAcetaminophen 325 mg capsule Active 650 MG PO EVERY 4-6 HOURS as needed for fever or pain 2024 12:00am Complies with drug therapy acetaminophen (TYLENOL) 325 mg tablet Take 2 tablets (650 mg total) by mouth. ActiveAcetaminophen (Tylenol) 325 MG CAPS Take by mouth. ActiveAcetaminophen / guaiFENesin (3 sources)Start: 63-65-5064wavw 1 tablet by mouth twice dailyAcetaminophen- Guaifenesin 325-200 mg tablet Active 1 TAB PO Twice daily December 28, 2024 12:00amComplies with drug therapyStart: 69-20-6684qcfg 1 tablet by mouth twice dailyazelastine hydrochloride 0.5 mg/ml ophthalmic solution (3 sources)Histamine-1 Receptor AntagonistStart: 47-06-0267zotz 1 drop(s) into the eye(s) twice dailyazelastine (OPTIVAR) 0.05 % ophthalmic solution Administer 1 drop to both eyes 2 (two) times a day.6 mL 12 02/24/2025 ActiveStart: 09-65-3420ttcx 2 spray(s) nasal route in the morningazelastine (ASTELIN) 137 mcg (0.1 %) nasal spray Indications: Nasal congestion Administer 2 sprays into each nostril in the morning and 2 sprays before bedtime. Use in each nostril as directed. 30 mL5 12/24/2024 Activebacitracin 0.5 unt/mg topical ointment (2 sources)bacitracin 500 unit/gram ointment Apply 1 application topically 2 (two) times a day. Activebisacodyl 10 mg rectal suppository (5 sources)Stimulant LaxativeStart: 73-43-3005Hoqhumeuu (Dulcolax (Bisacodyl)) 10 mg suppository Active 10 MG MS Daily as needed for constipationSept2024 12:00am Complies with drug therapybusPIRone hydrochloride 30 mg oral tablet (20 sources)Start: 84-72-8873yrnl 1 tablet by mouth three times dailyBuspirone 30 mg tablet Active 30 MG PO Three times daily December 28, 2024 12:00am Complies with drug therapyStart: 02-28-4147jkfZQAbzb (BUSPAR) 10 mg tablet 1 tablet (10 mg total) in the morning and 1 tablet (10 mg total) atnoon and 1 tablet (10 mg total) before bedtime. 12/19/2017 Activetake 1 tablet by mouth once dailybusPIRone (BUSPAR) 30 MG tablet Take 30 mg by mouth daily. Active chlorhexidine gluconate 1.2 mg/ml mouthwash (12 sources)Start: 18-31-9650odor 15 mL by mouth twice dailychlorhexidine (PERIDEX) 0.12 % oral solution Take 15 mL by mouth 2 times daily. 1 Bottle 0 09/15/2014 Uxptaf79 hr cloNIDine hydrochloride 0.1 mg extended release oral tablet (20 sources)Central alpha-2 Adrenergic AgonistStart: 10-64-0140aeyk 1 tablet by mouth three times dailyClonidine Hcl 0.2 mg tablet Active 0.2 MG PO Three times daily December 28, 2024 12:00am Complieswith drug therapyStart: 87-25-0188cxyz 1 tablet by mouth twice dailyClonidine Hcl 0.1 mg tablet extended release 12 hr Active 0.1 MG PO Twice daily December 282:00am Complies with drug therapyCLONIDINE HCL ORAL Take by mouth. SuspendedCLONIDINE HCL ORAL Take by mouth. ActiveCLONIDINE HCL ORAL Take by mouth. 0 Activecyanocobalamin, vitamin B-12, (VITAMIN B-12 ORAL) (2 sources)cyanocobalamin, vitamin B-12, (VITAMIN B-12 ORAL) Take 1,500 mcg by mouth. Activecyproheptadine hydrochloride 4 mg oral tablet (3 sources)Start: 38-96-6759yyoq 1 tablet by mouth once daily at bedtime Cyproheptadine 4 mg tablet Active 4 MG PO Daily at bedtime December 28, 2024 12:00am Complies with drug therapydiazePAM 5 mg oral tablet (8 sources)BenzodiazepineStart: 21-23-3625xaownZXJ (Valium) 5 MG tablet Indications: Gait instability , Developmental delay , Seizure disorder (HCC) Take 1 tablet (5 mg) by mouth 1 time for 1 dose 30 minutes prior to MRI 1 tablet 08/11/2024 ActiveStart: 42-44-8207talmhXSD (VALIUM) 5 mg tablet 08/06/2017 ActivediphenhydrAMINE hydrochloride 25 mg oral tablet (4 sources)Histamine-1 Receptor Antagonisttake 1 tablet by mouth once daily as needed for sleepdiphenhydrAMINE (SOMINEX) 25 mg tablet Take 25 mg by mouth nightly as needed for sleep. Activetake 1 capsule by mouth every six hours as neededdiphenhydrAMINE (COMPLETE ALLERGY) 25 mg capsule Take 25 mg by mouth every 6 (six) hours as needed for itching. Activedocusate sodium 100 mg oral capsule (15 sources)docusate sodium (COLACE) 100 mg capsule Take 1 capsule (100 mg total) by mouth in the morning and 1capsule (100 mg total) at noon and 1 capsule (100 mg total) before bedtime. ActiveNorethindrone-Ethin Estradiol (20 sources)EstrogenStart: 44-37-2626zmop 0.60814773491428727 ug by mouth once dailyNorethindrone-Ethin Estradiol (Nortrel 1/35 (21)) 1-35 mg-mcg (21) tablet Active 1 TAB PO Daily December 28, 2024 12:00am Complies with drug therapy Start: 96-88-6686jqlk 0.92887090356529578 ug by mouth once dailyStart: 45-11-3426HDTLFGR 1/35, 28, 1-35 mg-mcg per tablet 10/07/2017 Active norethindrone-ethinyl estradiol (Ortho-Novum, Nortrel) 1-35 MG-MCG tablet Take 1 tablet by mouth Daily Activefamotidine 40 mg oral tablet (20 sources)Histamine-2 Receptor AntagonistStart: 01-41-3854werg 1 tablet by mouth once dailyFamotidine 40 mg tablet Active 40 MG PO Daily December 28, 2024 12:00am Complies with drug therapyfluticasone propionate 0.05 mg/actuat metered dose nasal spray (15 sources)CorticosteroidStart: 52-24-3986aekj 2 spray(s) nasal route in the morningfluticasone propionate (FLONASE) 50 mcg/actuation nasal spray Administer 2 sprays into each nostrilin the morning. 16 g 12 02/24/2025 Active End: 80-24-9886gmzw 1 spray(s) nasal route once dailyfluticasone (FLONASE) 50 mcg/actuation nasal spray Administer 1 spray into each nostril daily. 12/24/2024 Discontinued (Alternate therapy)Fluticasone Propionate (FLONASE NASAL) Rogers into each nostril. SuspendedFluticasone Propionate (FLONASE NASAL) Rogers into each nostril. ActiveFluticasone Propionate (FLONASE NASAL) Rogers into each nostril. 0 ActiveguaiFENesin 20 mg/ml oral solution (7 sources)Start: 19-97-3098awpe 200 mg by mouth every four hours as needed for coughGuaifenesin (Adult Tussin Chest Congestion) 100 mg/5 mL liquid Active 200 MG PO Every 4 hours as needed for cough December 28, 2024 12:00am Complies with drug therapytake 1 tablet by mouth every twelve hours as neededguaiFENesin (MUCINEX) 600 mg tablet extended release 12hr Take 1 tablet (600 mg total) by mouth every 12 (twelve) hours as needed. ActiveguanFACINE 2 mg oral tablet (20 sources)Central alpha-2 Adrenergic AgonistStart: 27-39-1197zfsz 1 tablet by mouth twice dailyGuanfacine 2 mg tablet Active 2 MG PO Twice daily December 28, 2024 12:00am Complies with drug therapytake 2 tablets by mouth once daily guanFACINE (TENEX) 1 mg tablet Take 2 mg by mouth nightly. Activetake 1 tablet by mouth once daily before breakfastguanFACINE (TENEX) 2 mg tablet Take 1 tablet (2 mg total) by mouth every morning before breakfast. ActiveGUANFACINE HCL ORAL Take by mouth. SuspendedGUANFACINE HCL ORAL Take by mouth. Activeibuprofen 600 mg oral tablet (18 sources)Nonsteroidal Anti-inflammatory DrugStart: 55-49-0810eqqoimkg lactate 120 mg/ml topical cream (20 sources)Start: 25-20-6709nacalzwz lactate (AMLACTIN) 12 % cream 07/08/2017 Activeammonium lactate (Amlactin) 12 % cream Apply 2 application topically Daily Activelactobacillus acidophilus 16 mg oral capsule (13 sources)Lactobacillus (ACIDOPHILUS) CAPS Take by mouth. ActivelamoTRIgine 100 mg oral tablet (20 sources)Mood Stabilizer, Anti-epileptic AgentStart: 11-39-3932dyzd 1 tablet by mouth once daily at bedtimeLamotrigine (Lamictal) 100 mg tablet Active 100 MG PO Daily at bedtime December 28, 2024 12:00am Complies with drug therapy Start: 34-01-0444bhsi 1 tablet by mouth once dailyLamotrigine (Lamictal) 150 mg tablet Active 150 MG PO Daily December 28, 2024 12:00am Complies with drug therapyStart: 26-45-3174zanrSCKdntl (LaMICtal XR) 300 mg tablet extended release 24hr 10/10/2017 Activelansoprazole 30 mg delayed release oral capsule (2 sources)Proton Pump InhibitorStart: 01-94-0989czbhvxbfygjn (PREVACID) 30 mg capsule 01/23/2018 Activelevothyroxine sodium 0.2 mg oral tablet (20 sources)l-ThyroxineStart: 62-80-6428zxcx 1 tablet by mouth once daily Levothyroxine (Synthroid) 200 mcg tablet Active 200 MCG PO Daily January 27, 2025 12:00am Complieswith drug therapytake 1 tablet by mouth in the morning levothyroxine (SYNTHROID, LEVOTHROID) 100 MCG tablet Take 1 tablet (100 mcg total) by mouth in the morning. Activetake 1 tablet by mouth before mealtime levothyroxine (Synthroid, Levoxyl) 25 MCG tablet Take 25 mcg by mouth in the morning. Take before meals. Activetake 1 tablet by mouth before mealtime levothyroxine (Synthroid, Levoxyl) 175 MCG tablet Take 175 mcg by mouth in the morning. Take beforemeals. Activeloratadine 10 mg oral tablet (20 sources)take 1 tablet by mouth once dailyloratadine (CLARITIN) 10 mg tablet Take 10 mg by mouth daily. Activelubiprostone 0.024 mg oral capsule (2 sources)Chloride Channel Activatortake 1 capsule by mouth twice daily at mealtimelubiprostone (AMITIZA) 24 MCG capsule Take 24 mcg by mouth 2 (two) times a day with meals. Activemelatonin 3 mg oral capsule (20 sources)Start: 13-86-2808pcjk 1 capsule by mouth once daily at bedtime Melatonin 3 mg capsule Active 3 MG PO Daily at bedtime December 28, 2024 12:00am Complies with drug therapytake 3 mg by mouth once daily at bedtime MELATONIN ORAL Take 3 mg by mouth once daily at bedtime. Activetake 1 tablet by mouth at bedtimeMelatonin 3 MG tablet dispersible Take 3 mg by mouth at bedtime Activeminoxidil 50 mg/ml topical spray (2 sources)Arteriolar Vasodilatorminoxidil (ROGAINE) 5 % solution Apply 1 application topically. Activemometasone furoate 0.05 mg/actuat metered dose nasal spray (2 sources)CorticosteroidStart: 49-33-6359ocha 2 spray(s) nasal route in the morningmometasone (NASONEX) 50 mcg/actuation nasal spray Indications: Nasal congestion Administer 2 spraysinto each nostril in the morning. 17 g 5 12/24/2024 Activemupirocin 0.02 mg/mg topical ointment (5 sources)RNA Synthetase Inhibitor AntibacterialStart: 21-26-8307Qbqbjihkd (Centany) 2 % ointment Active 1 APPLIC TOPICAL Twice daily December 28, 2024 12:00am Complies with drug therapymupirocin (BACTROBAN) 2 % ointment Apply 1 Application topically 3 (three) times a day. Activeondansetron 4 mg disintegrating oral tablet (6 sources)Serotonin-3 Receptor AntagonistStart: 66-29-7996Jwgci: 03-02-2024 End: 96-91-5123yimu 4 mg intravenously once as needed for nausea4 mg, Intravenous Push, PACU ONCE PRN, Starting on Sat03/02/24 at 0938, Until Sat03/02/24 at 1537, Nausea, Vomiting, PACU Nowtake 1 tablet by mouth every eight hours as needed for nausea and vomitingondansetron (ZOFRAN) 4 mg tablet Take 1 tablet (4 mg total) by mouth every 8 (eight) hours as needed for nausea or vomiting. Tnykdi62 hr paliperidone 3 mg extended release oral tablet (20 sources)Atypical AntipsychoticStart: 20-34-7720habb 1 tablet by mouth three times dailyPaliperidone (Invega) 3 mg tablet extended release 24hr Active 3 MG PO Three times daily December 28, 2024 12:00am Complies with drug therapytake 1 tablet by mouth once daily in the morningpaliperidone (INVEGA) 3 mg 24 hr tablet Take 1 tablet (3 mg total) by mouth every morning. Activetake 1 tablet by mouth every twenty-four hours in the morningpaliperidone (Invega) 3 MG 24 hr tablet Take 3 mg by mouth in the morning and 3 mg before bedtime. Do not crush, chew, or split.. Activetake 2 tablets by mouth once dailypaliperidone (INVEGA) 3 MG 24 hour tablet Take 6 mg by mouth daily. Activepantoprazole 40 mg delayed release oral tablet (2 sources)Proton Pump InhibitorStart: 32-40-3530bliqkmciyupx (PROTONIX) 40 mg EC tablet 02/27/2018 Activepolyethylene glycol 3350 30924 mg powder for oral solution (20 sources)Osmotic LaxativeStart: 12-57-8025Ukuszkkkqzer Glycol 3350 (Clearlax) 17 gram powder in packet Active 17 GM PO Daily December 28, 2024 12:00am Complies with drug therapyQUEtiapine 400 mg oral tablet (20 sources)Atypical AntipsychoticStart: 31-77-3468dxaq 1 tablet by mouth once daily at bedtimeQuetiapine 400 mg tablet Active 400 MG PO Daily at bedtime December 28, 2024 12:00am Complies with drug therapytake 1 tablet by mouth at bedtimeQUEtiapine (SEROquel) 200 MG tablet Take 200 mg by mouth at bedtime ActiveQUEtiapine Fumarate (SEROQUEL ORAL) Take by mouth. SuspendedQUEtiapine Fumarate (SEROQUEL ORAL) Take by mouth. ActiverisperiDONE 1 mg oral tablet (4 sources)Atypical AntipsychoticStart: 94-19-1923kxseuwdEPLJ (RisperDAL) 0.5 mg tablet 10/10/2017 ActiveStart: 00-18-2380imzpxnlKUGK (RisperDAL) 1 mg tablet 10/10/2017 ActiveSelenium (SELENIMIN ORAL) (13 sources)Selenium (SELENIMIN ORAL) Take by mouth. SuspendedSelenium (SELENIMIN ORAL) Take by mouth. ActiveSelenium (SELENIMIN ORAL) Take by mouth. 0 Activesennosides, correction 8.6 mg oral tablet (20 sources)Start: 65-64-0415Xriuzsogtp (Black-Draught Lax-Senna) 8.6 mg tablet Active 17.2 MG PO 1 to 2 times per day as neededfor constipation December 28, 2024 12:00am Complies with drug therapytake 2 tablets by mouth twice dailysenna (SENOKOT) 8.6 mg tablet Take 17.2 mg by mouth 2 (two) times a day. Activetake 8.6 mg by mouth twice daily as neededsennosides (sennosides) 8.8 mg/5 mL syrup Take 8.6 mg by mouth 2 (two) times a day as needed. Activetake 1 tablet by mouth once daily as needed for constipationSennosides (SENNA) 15 MG tablet Take 1 Tab by mouth daily as needed for Constipation. Activetopiramate 25 mg oral tablet (13 sources)take 3 tablets by mouth twice dailytopiramate (TOPIRAGEN) 25 MG tablet Take 75 mg by mouth 2 times daily. Activetriamcinolone acetonide 1 mg/ml topical lotion (2 sources)Corticosteroidtriamcinolone (KENALOG) 0.1 % lotion Apply 1 application topically daily as needed. Activetrihexyphenidyl hydrochloride 2 mg oral tablet (13 sources)take 1 tablet by mouth three times dailytrihexyphenidyl 2 MG tablet Take 2 mg by mouth 3 times daily. Activedivalproex sodium 125 mg delayed release oral tablet (20 sources)Mood Stabilizer, Anti-epileptic AgentStart: 80-61-9153Yjclvaqskm (Depakote) 125 mg tablet,delayed release (DR/EC) Active 1000 MG PO Three times daily January 27, 2025 1:21pm Complies with drug therapyStart: 52-28-7919ejjc 4 tablets by mouth once dailyStart: 12-28-2024 End: 29-00-5719Uobuyuwbtq (Depakote) 125 mg tablet,delayed release (DR/EC) Discontinued 1000 MG PO Twice daily December 28, 2024 12:00am January 27, 2025 1:23pmStart: 84-40-6397wrfxgaewjp sprinkle (DEPAKOTE SPRINKLE) 125 mg capsule 10/10/2017 Activedivalproex (DEPAKOTE) 125 mg EC tablet Take 1 tablet (125 mg total) by mouth in the morning and 1 tablet (125 mg total) at noon and 1 tablet (125 mg total) in the evening and 1 tablet (125 mg total) before bedtime. Activezinc gluconate 50 mg oral tablet (13 sources)Zinc Gluconate 50 MG TABS Take by mouth. Active Completed/Discontinued Medications MedicationDrug Class(es)DatesSig (Normalized)Sig (Original)1 ml naloxone hydrochloride 0.4 mg/ml injection (2 sources)Opioid AntagonistStart: .4 mg, Intravenous Push, PRN, Starting on Sat03/02/24 at 0937, Until Discontinued, Respiratory Rate Less Than 8 for adults and less than 12 for Peds or for suspected overdose, PACU Now20 ml sodium chloride 9 mg/ml injection (1 source)Start: mL, Intravenous Push, PRN, Starting on Sat03/02/24 at 0937, Until Discontinued, For medication administration and blood draw, PACU Now Problems Active Problems Problem ClassificationProblemDateDocumented DateEpisodic/ChronicAllergic reactions (1 source)Allergic disposition; Translations: [Other allergy, initial encounter] 21-09-5658UfjnytzcYqtizrv disorders (20 sources)Anxiety disorder; Translations: [Anxiety disorder, unspecified] Onset: 647294-85-5681HygqyljRptcntif, dementia, and amnestic and other cognitive disorders (20 sources)Pseudobulbar affect; Translations: [Pseudobulbar affect]Onset: 212375-89-2598FugeikjLeqntfdjlcjip disorders (20 sources)Intellectual disability; Translations: [Unspecified intellectual disabilities]Onset: 454614-70-6696DinuhwkKuwycocre usually diagnosed in infancy, childhood, or adolescence (20 sources)Autism spectrum disorder; Translations: [Autistic disorder]Onset: 120541-54-6379ZdvcmrcP Codes: Fall (1 source)Fall on same level from slipping, tripping and stumbling with subsequent striking against unspecified object, initial encounter; Translations: [FALL SAME LVL SLIP STRK UNS OBJ INT]Onset: 02-68-1028KpvfzxbnUblejubr; convulsions (20 sources)Epilepsy, unspecified, not intractable, without status epilepticus; Translations: [Seizure disorder]Onset: 13-83-3982JboutxvMarmnceyprdub symptoms and ill-defined conditions (1 source)Unspecified urinary incontinence; Translations: [UNSPECIFIED URINARY INCONTINENCE]Onset: 09-64-2195YbvuindPuwaijgwbjhfp symptoms and ill-defined conditions (4 sources)Anuria and oliguria; Translations: [ANURIA AND OLIGURIA]Onset: 93-64-6517JbxzmxobDkmgcnr and fatigue (2 sources)Asthenia; Translations: [Weakness]53-03-4994CjkjkdyeXlziqosxaj disorders (1 source)Hormone replacement therapy; Translations: [HORMONE REPLACEMENT THERAPY]Onset: 22-24-1439GhggtbecKakjrqr (6 sources)Onychomycosis; Translations: [Tinea unguium]80-54-1133WflkylnuKaaf wounds of head; neck; and trunk (4 sources)Laceration without foreign body of other part of head, initial encounter; Translations: [LAC W/O FBOTH PART HEAD INIT ENC]Onset: 07-21-2022 EpisodicOther aftercare (5 sources)Other longterm (current) drug therapy; Translations: [OTH FPC CURRENT DRUG THERAPY]Onset: 77-64-5032JdkcsokmMdddt connective tissue disease (6 sources)Pain of toe of right foot; Translations: [Pain in right toe(s)] 32-70-1125HzncmxywWvjaf connective tissue disease (6 sources)Pain of toe of left foot; Translations: [Pain in left toe(s)] 80-44-5324IbedtchuJykpk diseases of veins and lymphatics (2 sources)Peripheral venous insufficiency; Translations: [Venous insufficiency (chronic) (peripheral)]61-40-2098FrkjbaxtKqhku nervous system disorders (1 source)Unsteadiness on feet; Translations: [Unsteadiness on feet]Onset: 07-79-2671FvwlreicEmjdh skin disorders (2 sources)Ingrowing nail; Translations: [Ingrowing nail]47-73-0962JrpjvrhsSxsih upper respiratory disease (1 source)Chronic rhinitis; Translations: [Chronic rhinitis]63-25-2918Oftemhc Other upper respiratory disease (5 sources)Nasal congestion; Translations: [Nasal congestion]Onset: 12-24-2024 12-95-4046BownqrncZhrcj upper respiratory disease (1 source)Nasal congestion; Translations: [Nasal congestion]Onset: 12-24-2024 EpisodicOther upper respiratory infections (6 sources)Recurrent sinusitis; Translations: [Chronic sinusitis, unspecified] Onset: 262079-99-5270YleunetLcsrbndzrcq injury; contusion (1 source)Contusion of other part of head, initial encounter; Translations: [CONTUS OTH PRT HEAD INITIAL ENCNTR]Onset: 55-12-5637WidiubfmEzaefkk disorders (17 sources)Hypothyroidism, unspecified; Translations: [Autoimmune thyroiditis] Onset: 19-62-0570NepvwfkHmjudqcjadda (1 source)NO HLTF38-24-3313Lnkjdgbpuedj (1 source)Sinus ProblemOnset: 82-49-0979Juzmfwnmqryc (2 sources)Please arrange for MRI with General Anesthesia, need to have an MRI suite that can accommodate general anesthesia Past or Other Problems Problem ClassificationProblemDateDocumented DateEpisodic/ChronicBiliary tract disease (6 sources)Finding of measures of gallbladder; Translations: [Other specified diseases of gallbladder]Onset: 09-03-2017 Resolved: 042901-10-3001JfqmslchIvtiwksidy associated with dizziness or vertigo (20 sources)Dizziness; Translations: [Dizziness and giddiness]Onset: 07-03-2018 98-39-6112CeorberoJmphicmxi of teeth and jaw (13 sources)Dental caries; Translations: [Dental caries, unspecified]Onset: 12-27-2023 Resolved: 523593-87-7018WxbrqdfdDfdh disorders (2 sources)Mood disordersOnset: Nausea and vomiting (2 sources)Vomiting; Translations: [Vomiting, unspecified]Onset: 09-03-2017 22-76-4188XraliipnLupal gastrointestinal disorders (2 sources)Dysphagia; Translations: [Dysphagia, unspecified]Onset: 09-03-2017 22-05-7101CdaapzjsCfhby nervous system disorders (20 sources)Abnormal gait; Translations: [Unsteadiness on feet]Onset: 08-06-2023 85-81-1668BvaqkvdqXxmyq nutritional; endocrine; and metabolic disorders (6 sources)Developmental delay; Translations: [Unspecified lack of expected normal physiological development in childhood]Onset: EpisodicOther nutritional; endocrine; and metabolic disorders (2 sources)Weight decreased; Translations: [Abnormal weight loss]Onset: 09-03-2017 Resolved: 272517-18-2397OyxypyfqJwtwuzju codes; unclassified (20 sources)Personal history of other specified conditions; Translations: [Personal history of other specified diseases]Onset: Episodic Results Test NameValueInterpretationReference RangeFacilityAnesthesia Postprocedure Evaluationon 31-37-2103Ynnambgomvewm Authentication Interface Message Text Anesthesia Postoperative Assessment: [...] acceptable ANESTHESIA NOTABLE EVENTS: No notable events documented.NormalThe [facility]cer [facility] Hospital SystemAnesthesia Preprocedure Evaluationon [id number] Authentication Interface Message TextASA: 3 No history of anesthetic complications NPO status: Greater than 8 hours Past Medical History and Review of Systems Pulmonary (+) sleep apnea (-) non-smoker Dental ROS (+) teeth problems missing Endo (+) hypothyroidism (Gato's disease) top cutter - negative ROS Comment: - 03/02/2024 beta-HCG [...] ( Anesthesia consent obtained and scanned into [employer]. Scheduled for surgery 03/02/2024. ) Questions answered / anesthesia plan accepted ( Anesthesia consent obtained and scanned into [employer]. Scheduled for surgery 03/02/2024. ) Past medical history, surgical history, allergies, and medications reviewed. Pertinent laboratory tests, EKG, imaging, and consults reviewed and I have personally seen and evaluated the patient, repeating cabrera portions of the history and physical examination. Attestation: Anesthesia options were discussed with the patient and/or legal b2b outside sales representative. The risks, benefits and alternatives were reviewed. Questions regarding anesthesia were answered. Patient and/or legal b2b outside sales representative knows such anesthetics and procedures may be performed by Resident physicians, Certified Anesthesiologist Assistants, or Certified Nurse Anesthetists under the supervision of a physician. The patient /or the patient's legal b2b outside sales representative agree with the plan for anesthesia. Comment: Anesthesia consent obtained and scanned into Neomatrix. Scheduled for surgery 03/02/2024. [facility] Transfer Of Careon 03-02-2024 Sequins Winder Authentication Interface Message TextPatient taken to PACU. Patient was awake, comfortable, [...] surgical history indicates: EXTRACTION, TOOTH (09/15/2014) Procedure: [place] teeth; Surgeon: Bradley Goodiwn DDS; Location: [facility]IVE SERVICES; Service: Oral EUA, ORAL (09/15/2014) Procedure: EUA, ORAL; Surgeon: Bradley Goodwin DDS; Location: PERIOPERATIVE SERVICES; Service: Oral Allergies: Linzess [linaclotide] and Zarontin [ethosuximide] Basic Operating Room Facts: Surgeon(s): lEmer oTpete DDS Anesthesiologist: Milton Luna MD COMM[employer]CIAL GRE[employer] BUILDING ARCHITECT: Adalgisa Smith APRN-DARSHAN Sensitometrist: Dayanna Preciado MD DENTAL RESTORATIONS (Right: Mouth) [...] of the report was received. Adalgisa Smith, [facility] Attestationon [id number] Authentication Interface Message TextBlood Attestation: ATTESTATION OF INFORMED CONSENT FOR BLOOD: The transfusion of blood and/or blood components were discussed with the patient and/or legal b2b outside sales representative. The risks, benefits and alternatives were reviewed. Questions regarding blood transfusions were answered. The patient /or the patient's legal b2b outside sales representative agree with the plan for transfusion of blood and/or blood components.NormalThe [facility] SystemBrselect medical [facility] Operative Noteon [id number] Authentication Interface Message TextBrief Operative Note PHE OR 3 Ponce Esteves 29 year old female Surgical Contact Serial Number: [id number] Preoperative Diagnosis: Pre-op Diagnosis * Caries [K02.9] Postoperative Diagnosis: * Caries [K02.9] Procedures: Full mouth x-ray [50765] Prophylaxis [81348] Restorations [27163] Floride application [26811] Surgeon(s): Surgeon(s): Elmer Topete DDS Staff: Rough Rice Grader Nurse: Trudi Padilla Corporate Librarian: Paula Contreras DDS; Melquiades Christie DDS Anesthesia: General Anesthesiologist: Milton Luna MD [employer] BUILD[employer] ARCHITECT: Adalgisa Smith APRN-DARSHAN Sensitometrist: Dayanna Preciado MD Specimen(s): * No specimens [...] Signed by Paula Contreras DDS 03/02/2024 11:48 AMNormalThe [facility] Progress Noteson [id number] Authentication Interface Message Text ----- Saturday, March 02, 2024 at 11:38:59 AM ----- ----- Provider: [id number] Rebolledo DDS -- Clinic: [facility] ----- [place] notes, pt is ready for tx [place]. X-Rays look good, few cavities found and confirmed clinically. restos completed. OP Note by Paula Contreras DDS at 03/01/2024 6:14 PM Author: Paula Contreras DDS Service: Dentistry Author Type: Resident Filed: 03/02/2024 11:56 AM Date of Service: 03/01/2024 6:14 PM Note Type: OP Note Status: Cosign Needed Insurance Healthcare Representative: Paula Contreras DDS (Resident) Cosign Required: Yes Expand All Collapse All Surgical Case Number Data Unavailable Operating Room Data Unavailable Preoperative Diagnosis(es): Caries [k02.9] Surgeon: Dr. Topete Imaging Assistant Surgeon: Melquiades Arias DDS - Paula Contreras [...] the treatment plan included the following: Composite uatsdin on tooth #7 surface ML. Amalgam restorations [...] 2024 at 11:57:17 AM ----- ----- Provider: [id number] Misael Rebolledo DDS -- Clinic: [facility] -----NormalThe [facility] URINE HCG-IN OFFICEon [id number] ( test) Ql (U)NegativeNegative MetroHealthNegative Internal ControlNegativeNegativeMetroHealthPositive Internal ControlPositivePositiveMetroHealthMetroHealthURINE HCG-IN OFFICEOrdered By: Aure Salgado on [id number] ( test) Ql (U)NegativeNegative MetroHealthInterpretation and review of laboratory resultsNormalMetroHealth Negative Internal ControlNegativeNegativeMetroHealthPositive Internal Control PositivePositiveMetroHealthMetroHealthOP Noteon [id number] Authentication Interface Message TextSurgical Case Number Data Unavailable Operating Room Data Unavailable Preoperative Diagnosis(es): Caries [k02.9] Surgeon: Dr. Topete Imaging Assistant Surgeon: eMlquiades Arias DDS - Paula Contreras DDS Anesthesia: [...] the treatment plan included the following: Composite uatsdin on tooth #7 surface ML. Amalgam restorations [...] the procedure. Paula Contreras DDS 03/01/2024 6:15 PMNormalThe MetroJ.W. Ruby [facility] Hospital SystemTelephone Encounteron [id number] Authentication Interface Message Text Anesthesia consent obtained and scanned into Neomatrix. [facility]2024[facility] System[facility]on 02-21-2024 Sequins Winder Authentication Interface Message TextAnesthesia consent obtained and scanned into Neomatrix. Scheduled for surgery 03/02/2024.[facility] SystemPAT Call Historyon 02-19-2024 Sequins Winder Authentication Interface Message TextTelephone History Ponce Esteves, [id number] 02/19/2024 Patient was identified by name and date of via Ivon, caregiver. Needs: Physical, Neck Circumference, BHCG, and ED on DOS. Note: OSH records/labs scanned to media consultant. If the patient becomes ill prior to procedure or surgery, they are to call their provider or surgeon's office directly. 29 year old 136.6 lbs 5' 4 Date of Surgery: 03/02 Surgeon: Yoselyn Type of Surgery: DENTAL RESTORATIONS HISTORY OF PRESENT ILLNESS: telephone history for the upcoming surgery at [facility], [address] [place], enter through the [place] entrance doors. STOP-BANG Row Name 02/19/24 1154 [...] (+) teeth problems missing Endo (+) hypothyroidism top cutter - negative ROS Neuro/Psych (+) bipolar disorder, seizures, intellectual disability Cardiovascular - negative ROS GI/Hepatic/Renal (+) GERD Heme/Other - negative ROS PAST SURGICAL HISTORY: Past Surgical History: Procedure Laterality Date EUA, ORAL 09/15/2014 Procedure: EUA, ORAL; Surgeon: Bradley Goodwin DDS; Location: PERIOPERATIVE SERVICES; Service: Oral EXTRACTION, TOOTH Bilateral 09/15/2014 Procedure: [place] teeth; Surgeon: Bradley Goodwin DDS; Location: PERIOPERATIVE [...] Take by mouth. Fluticasone Propionate (FLONASE NASAL) Rogers into each nostril. Selenium (SELENIMIN ORAL) Take by mouth. Sennosides (SENNA) 15 MG tablet Take 1 Tab by mouth daily as needed for Constipation. topiramate (TOPIRAGEN) 25 MG tablet Take 75 mg by mouth 2 times daily (more content not included)...NormalThe [facility] CenterSprint Bioscience SystemProgress Noteson 02-17-2024 Sequins Winder Authentication Interface Message TextPatient PAT has be rescheduled for 02/19/2024--for OR visit 03/02/2024----- Saturday, February 17, 2024 at 10:10:00 AM ----- ----- Provider: [facility] -- Clinic: [place] -----NormalAd[facility] SystemProgress Noteson [id number] Authentication Interface Message TextPatient was no show for PAT today at [place] there surgery is scheduled 03/02-Contact [place] --advised if PAT needs to reschedule or patient will be removed from OR----- Monday, February 05, 2024 at 4:24:04 PM ----- ----- Provider: LESLIE [facility] -- Clinic: [place] -----NormalAd[facility] County Hospital SystemProgress Noteson [id number] Authentication Interface Message TextParent/guardian/patient was contacted for PAT AND OR Sedation scheduled -- confirmed information with patient, also informed mom importance of going to PAT appointment -- if missed, IV Sedation will be cancelled, and you will be placed back on wait list 03/02/24----- Monday, January 08, 2024 at 2:14:12 PM ----- ----- Provider: LESLIE [facility] -- Clinic: [place] -----NormalThe Madison Avenue HospitalroJ.W. Ruby Memorial Hospital SystemProgress Noteson [id number] Authentication Interface Message TextAttempted to contact patient/ parent / guardian at telephone number listed -- no answer, left voicemail message requesting a return call.----- Saturday, December 30, 2023 at 2:26:35 PM ----- ----- Provider: LESLIE [facility] -- [place]: [place] -----NormalThe [facility] SystemFree T4on 28-27-7313Ywup T4 [Mass/Vol]1.12 ng/dLNormal0.58-1.64[facility]tering Health PrebleComment on above:Performed By: #### [id number], [id number] #### [facility] [address], [place] [address]Urzjurbzs Orderon [id number] Order [id number]#1.00CD:127NormalJ.W. Ruby Memorial Hospital 91-03-6750WCZ Qn4.74 m[IU]/LNormal0.34-5.60[facility] Health PrebleComment on above:Performed By: #### [id number], [id number] #### [facility] [address], [place] [address]NSYE T4on 97-54-5695Tqrz T4 [Mass/Vol]1.76 ng/dLCritically high 0.76-1.46[facility] HospitalComment on above:Performed By: #### FT4 #### [facility] [address] [place] [address] Volodymyr PaezBuffalo Psychiatric Centeralex 70-76-4350GSK Qnm[IU]/LCritically low0.358-3.740[facility] HospitalComment on above:Performed By: #### TSH #### [facility] [address] [place] [address] Dr. Volodymyr Matthews URINEon [id number] URINEIsolate 1 Streptococcus agalactiae >100,000 cfu/mL of ORGANISM 1 Streptococcus agalactiae ANTIBIOTIC M.I.C RX STATUS Benzylpenicillin <=0.06 S F Ampicillin <=0.25 S F Cefotaxime <=0.12 S F Ceftriaxone <=0.12 S F Levofloxacin 1 S F Inducible Clindamycin Resistance Neg NEG F Erythromycin >=8 R F Clindamycin >=1 R F Linezolid <=2 S F Vancomycin 0.5 S F Tetracycline >=16 R FNormalLima City HospitalComment on above:Performed By: #### TSH, CMP #### [facility] [address] [place] [address] Dr. Volodymyr Zapata (CLEAN/CATCH) PHYSICIAN REPRESENTATIVE/MICRO IF IND.on 10-79-7458Tsfhotpad Ql (U) NegativeNormalNEGATIVELima City HospitalComment on above:Performed By: #### TASHA UMICRO #### [facility] [address] [place] [address] Dr. Volodymyr PaezClethel (U)CLEARNormalCLEARLima City HospitalComment on above: Performed By: #### UACSSHAHEEN UMICRO #### [facility] [address] [place] [address] Dr. Volodymyr Jones (U)LT. YELLOWNormalYSuburban Community Hospital & Brentwood HospitalComment on above:Performed By: #### UACSSHAHEEN UMICRO #### [facility] [address] [place] [address] Dr. Volodymyr PaezGlucose Ql (U)NegativeNormalNEGATIVELima City HospitalComment on above:Performed By: #### UACSSHAHEEN UMICRO #### [facility] [address] [place] [address] Dr. Volodymyr PaezHemoglobin Ql (U)NegativeNormalNEGATIVEThe [facility] Comment on above:Performed By: #### TASHA UMICRO #### [facility] [address] [address] [address] Volodymyr Salgado Ql (U)NegativeNormalNEGATIVEThe [facility] HospitalComment on above:Performed By: #### TASHA UMICRO #### [facility] [address] [address] [address] Volodymyr PaezLEUKOCYTESSMALLAbnormalNEGATIVEThe [facility] HospitalComment on above:Performed By: #### TASHA UMICRO #### [facility] [address] [address] [address] Volodymyr Arellano Ql (U)NegativeNormalNEGATIVEThe [facility] HospitalComment on above:Performed By: #### TASHA UMICRO #### [facility] [address] [address] [address] Volodymyr PaezpH (U)7.0 [pH]Normal5-9The [facility] HospitalComment on above: Performed By: #### TASHA UMICRO #### [facility] [address] [address] [address] Volodymyr PaezSPEC GRAVITY1.087Dwosiq4.005-<=1.025The [facility] HospitalComment on above:Performed By: #### TASHA UMICRO #### [facility] [address] [address] [address] Volodymyr PaezUA PROTEINNegativeNormalNEGATIVE/ TRACEThe [facility] Comment on above:Performed By: #### TASHA UMICRO #### [facility] [address] [address] [address] Volodymyr Mendez MICRO INDINDICATEDNormalThe [facility] HospitalComment on above: Performed By: #### TASHA UMICRO #### [facility] [address] [address] [address] Volodymyr PaezUrobilinogen Qn (U)0.2 {Leta'U}/dLNormal0.2 - 1.0The [facility] on above:Performed By: #### TASHA UMICRO #### [facility] [address] [address] [address] Volodymyr LONGORIAon [id number]PDX SEEN [facility] on above:Performed By: #### TASHA UMICRO #### [facility] [address] [place] [address] Dr. Volodymyr Ladd identified Cx Nom (U)INDICATEDLakeHealth Beachwood Medical Center on above:Performed By: #### TASHA UMICRO #### [facility] [address] [place] [address] Dr. Volodymyr Ernst SEENNormalNONE SEENAultman Orrville Hospital on above:Performed By: #### TASHA UMICRO #### [facility] [address] [place] [address] Dr. Volodymyr Mcdonough LM Nom (Urine sed)NONE SEENNormalNONE SEENAultman Orrville Hospital on above:Performed By: #### TASHA UMICRO #### [facility] [address] [place] [address] Dr. Helm ChangEpithelial cells LM Ql (Urine sed)MODERATEAbnormalNONE SEEN /RARE The [facility] HospitalComselect specialty hospital-[facility] on above:Performed By: #### TASHA UMICRO #### [facility] [address] [place] [address] Dr. Volodymyr GoodmanACEAbnormalNONE SEENAultman Orrville Hospital on above:Performed By: #### TASHA UMICRO #### [facility] [address] [place] [address] Dr. Volodymyr PaezTpmnqRLC9-2Hfrpmrbf0-3DlhAultman Orrville Hospital on above:Performed By: #### TASHA UMICRO #### [facility] [address] [place] [address] Dr. Volodymyr PaezRqpmpQHZ20-15PbxrtysaSFRE SEENThe [facility] HospitalComment on above: Performed By: #### UACSIND, UMICRO #### [facility] [address] [place] [address] Dr. Volodymyr PaezLAMOTRIGINEon 77-06-2149Zcfyvpuidhu, Serum11.2 ug/mLNormal 2.0-20.0The [facility] HospitalComment on above:Result Comment: Detection Limit = 1.0Performed By: #### TSH, CMP #### [facility] [address] [place] [address] Dr. Volodymyr PaezCBC AUTO DIFFon 60-55-7552YQPA #0.0 103/ulNormal0.0-0.1The [facility] HospitalComment on above:Performed By: #### CBC #### [facility] [address] [place] [address] Dr. Volodymyr PaezBasophils/100 WBC (Bld)0.4 %Normal0.2-2.0The [facility] Comment on above:Performed By: #### CBC #### [facility] [address] [place] [address] Dr. Volodymyr Alcala #0.4 103/ulNormal0.0-0.7The [facility] HospitalComment on above: Performed By: #### CBC #### [facility] [address] [place] [address] Dr. Volodymyr Haydenosinophils/100 WBC (Bld)4.3 %Normal0.9-7.0The [facility] Comment on above:Performed By: #### CBC #### [facility] [address] [place] [address] Dr. Volodymyr Haydenrythrocyte distribution width (RBC) [Ratio]13.2 %Gdpxzi17.0-15.0 The [facility] HospitalComment on above:Performed By: #### CBC #### [facility] [address] [place] [address] Dr. Volodymyr PaezHematocrit (Bld) [Volume fraction]40.2 %Iggven13.0-48.0The [facility] HospitalComment on above:Performed By: #### CBC #### [facility] [address] [address] [address] Volodymyr PaezHemoglobin (Bld) [Mass/Vol]13.8 g/bGZadufv10.0-16.0The [facility] HospitalComment on above:Performed By: #### CBC #### [facility] [address] [address] [address] Volodymyr Harrison #0.02 10e3/ulNormal0.00-0.03The [facility] HospitalComment on above:Performed By: #### CBC #### [facility] [address] [address] [address] Volodymyr Harrison %0.2 %Normal0.0-0.5The [facility] HospitalComment on above: Performed By: #### CBC #### [facility] [address] [address] [address] Volodymyr Mccormick #4.3 103/ulCritically high1.2-3.8The [facility] Comment on above:Performed By: #### CBC #### [facility] [address] [address] [address] Volodymyr Rodriguezhocytes/100 WBC (Bld)51.8 %Zlqnho02.5-60.0The [facility] HospitalComment on above:Performed By: #### CBC #### [facility] [address] [address] [address] Volodymyr StroudUAL DIFF REQNONormalThe [facility] HospitalComment on above: Performed By: #### CBC #### [facility] [address] [address] [address] Volodymyr Khan (RBC) [Entitic mass]31.0 seGcthch42.7-34.0The [facility] HospitalComment on above:Performed By: #### CBC #### [facility] [address] [address] [address] Volodymyr Khan (RBC) [Mass/Vol]34.3 g/zDVrnffo44.9-35.2The [facility] HospitalComment on above:Performed By: #### CBC #### [facility] [address] [address] [address] Volodymyr KhanV (RBC) [Entitic vol]90.3 jOFvrysx70.0-99.0The [facility] HospitalComment on above:Performed By: #### CBC #### [facility] [address] [address] [address] Volodymyr Villegas #0.9 103/ulCritically high0.3-0.8The [facility] Comment on above:Performed By: #### CBC #### [facility] [address] [address] [address] Volodymyr Geeocytes/100 WBC (Bld)10.4 %Normal1.7-12.0[facility] Comment on above:Performed By: #### CBC #### [facility] [address] [place] [address] Dr. Volodymyr Klely #2.7 103/ulNormal1.4-6.5The [facility] HospitalComment on above:Performed By: #### CBC #### [facility] [address] [place] [address] Dr. Volodymyr Coulterutrophils/100 WBC (Bld)32.9 %Critically low43.0-75.0The [facility] HospitalComment on above:Performed By: #### CBC #### [facility] [address] [place] [address] Dr. Volodymyr Llamaslet mean volume (Bld) [Entitic vol]10.3 fLNormal9.5-13.5The [facility] HospitalComment on above:Performed By: #### CBC #### [facility] [address] [place] [address] Dr. Volodymyr PaezPLT231 103/evZcltph052-899Bzd [facility] HospitalComment on above: Performed By: #### CBC #### [facility] [address] [place] [address] Dr. Volodymyr PaezRBC4.45 106/ulNormal4.20-5.40The [facility] Systemment on above:Performed By: #### CBC #### [facility] [address] [place], [place] [address] Dr[address] Volodymyr PaezWBC8.2 103/ulNormal4.0-11.0The [facility] Systemment on above: Performed By: #### CBC #### [facility] [address] [place], [place] [address] Dr[address] Volodymyr RaiPAKENE/ VALPROIC ACIDon 47-97-7007MWKKYTSS00.3 ug/mlNormal 50.0-100.0The [facility] HospitalComment on above:Performed By: #### VALP #### [facility] [address] [place] [address] Dr. Volodymyr Moore THYROIDon 25-60-3460QQ THYROIDEXAMINATION: US THYROID HISTORY: Autoimmune thyroiditis COMPARISON: 10/24/2021 [...] 6 mm. No follow-up required TI-RADS: The [employer] TI-RADS committee's white paper recommendations for thyroid lesions classified as TR4 (moderately suspicious) are listed below: > 1.0 cm. Follow-up ultrasound in 1, 2, 3, and 5 years. > 1.5 cm. FNA. J. Am Chidi Radiol 2017;14:587-595. Electronically authenticated by: MATILDE WATERMAN Date: 2022-07-10 13:01NormalThe [facility] HospitalLAMOTRIGINEon 80-86-1641Jewddpsmfbm, Serum14.2 ug/mLNormal 2.0-20.0The [facility] HospitalComment on above:Result Comment: Detection Limit = 1.0Performed By: #### TSH, CMP #### [facility] [address] [place] [address] Dr. Volodymyr Kevin AUTO DIFFon 63-37-1329OMGX #0.1 103/ulNormal0.0-0.1The [facility] HospitalComment on above:Performed By: #### TSH, CMP #### [facility] [address] [place] [address] Dr. Volodymyr PaezBasophils/100 WBC (Bld)0.7 %Normal0.2-2.0The [facility] Comment on above:Performed By: #### TSH, CMP #### [facility] [address] [place] [address] Dr. Volodymyr Alcala #0.4 103/ulNormal0.0-0.7The [facility] HospitalComment on above: Performed By: #### TSH, CMP #### [facility] [address] [place] [address] Dr. Volodymyr Haydenosinophils/100 WBC (Bld)5.1 %Normal0.9-7.0The [facility] Comment on above:Performed By: #### TSH, CMP #### [facility] [address] [place] [address] Dr. Volodymyr Haydenrythrocyte distribution width (RBC) [Ratio]13.1 %Tpxjxk48.0-15.0 The [facility] HospitalComment on above:Performed By: #### TSH, CMP #### [facility] [address] [place] [address] Dr. Volodymyr PaezHematocrit (Bld) [Volume fraction]39.7 %Yvxspp99.0-48.0The [facility] HospitalComment on above:Performed By: #### TSH, CMP #### [facility] [address] [place] [address] Dr. Volodymyr PaezHemoglobin (Bld) [Mass/Vol]13.3 g/oDVtkdlv87.0-16.0The [facility] HospitalComment on above:Performed By: #### TSH, CMP #### [facility] [address] [address] [address] Volodymyr Harrison #0.02 10e3/ulNormal0.00-0.03[facility] on above:Performed By: #### TSH, CMP #### [facility] [address] [address] [address] Volodymyr Harrison %0.3 %Normal0.0-0.5The [facility] HospitalComselect [facility]-[place] on above: Performed By: #### TSH, CMP #### [facility] [address] [place] [address] Dr. Volodymyr Mccormick #3.6 103/ulNormal1.2-3.8[facility] on above:Performed By: #### TSH, CMP #### [facility] [address] [place] [address] Dr. Volodymyr Rodriguezhocytes/100 WBC (Bld)47.4 %Lvgkfz04.5-60.0[facility] on above:Performed By: #### TSH, CMP #### [facility] [address] [place] [address] Dr. Volodymyr StroudUAL DIFF REQNONormalThe [facility] HospitalComselect [facility]-[place] on above: Performed By: #### TSH, CMP #### [facility] [address] [place] [address] Dr. Volodymyr Khan (RBC) [Entitic mass]30.3 geSzmlmi35.7-34.0[facility] on above:Performed By: #### TSH, CMP #### [facility] [address] [place] [address] Dr. Volodymyr Khan (RBC) [Mass/Vol]33.5 g/zPZybykk03.9-35.2[facility] on above:Performed By: #### TSH, CMP #### [facility] [address] [place] [address] Dr. Volodymyr Khan (RBC) [Entitic vol]90.4 nBFpfqsp10.0-99.0The [facility] HospitalComment on above:Performed By: #### TSH, CMP #### [facility] [address] [place] [address] Dr. Volodymyr Villegas #0.9 103/ulCritically high0.3-0.8The [facility] Comment on above:Performed By: #### TSH, CMP #### [facility] [address] [place] [address] Dr. Volodymyr Geeocytes/100 WBC (Bld)11.3 %Normal1.7-12.0[facility] Comment on above:Performed By: #### TSH, CMP #### [facility] [address] [place] [address] Dr. Volodymyr Kelly #2.7 103/ulNormal1.4-6.5The [facility] HospitalComment on above:Performed By: #### TSH, CMP #### [facility] [address] [place] [address] Dr. Volodymyr Coulterutrophils/100 WBC (Bld)35.2 %Critically low43.0-75.0The [facility] HospitalComment on above:Performed By: #### TSH, CMP #### [facility] [address] [place] [address] Dr. Volodymyr Hunt mean volume (Bld) [Entitic vol]11.4 fLNormal9.5-13.5ThDetwiler Memorial HospitalComment on above:Performed By: #### TSH, CMP #### [facility] [address] [place] [address] Dr. Volodymyr MorinT96 103/ulCritically arw836-467Koo [facility] HospitalComment on above:Result Comment: slide made; no plt clumps seenPerformed By: #### TSH, CMP #### [facility] [address] [place] [address] Dr. Volodymyr ShermanC4.39 106/ulNormal4.20-5.40The [facility] HospitalComment on above:Performed By: #### TSH, CMP #### [facility] [address] [place] [address] Dr. Volodymyr PaezWBC7.6 103/ulNormal4.0-11.0[facility] on above: Performed By: #### TSH, CMP #### [facility] [address] [place] [address] Dr. Volodymyr River T4on 19-66-9244Sxev T4 [Mass/Vol]1.45 ng/dLNormal0.76-1.46 The [facility] HospitalComment on above:Performed By: #### FT4 #### [facility] [address] [address] [address] Volodymyr PaezPROF 14(COMP METB)on 69-76-4428Gdjwnxm [Mass/Vol]3.2 g/dL Critically low3.4-5.0[facility] on above:Performed By: #### TSH, CMP #### [facility] [address] [place] [address] Dr. Volodymyr PaezAlbumin/Globulin [Mass ratio]0.7 {ratio}NormalThe [facility] Systemment on above:Performed By: #### TSH, CMP #### [facility] [address] [place] [address] Dr. Volodymyr Holland [Catalytic activity/Vol]65 U/NNemfez36-543Put [facility] on above:Performed By: #### TSH, CMP #### [facility] [address] [address] [address] Volodymyr Kowalski [Catalytic activity/Vol]20 U/DFttgkh08-06Gde [facility] Systemment on above:Performed By: #### TSH, CMP #### [facility] [address] [address] [address] Volodymyr Jorge gap [Moles/Vol]11.3 mmol/LNormalThe [facility] [place] on above:Performed By: #### TSH, CMP #### [facility] [address] [place] [address] Dr. Volodymyr Braga [Catalytic activity/Vol]25 U/KXnuxhu55-09Mau [facility] HospitalComment on above:Performed By: #### TSH, CMP #### [facility] [address] [address] [address] Volodymyr PaezBilirubin [Mass/Vol]0.3 mg/dLNormal0.2-1.0The [facility] Comment on above:Performed By: #### TSH, CMP #### [facility] [address] [address] [address] Volodymyr PaezCalcium [Mass/Vol]9.5 mg/dLNormal8.5-10.1The [facility] Comment on above:Performed By: #### TSH, CMP #### [facility] [address] [address] [address] Volodymyr PaezChloride [Moles/Vol]100 mmol/MXrciqj83-750RmrL[facility] Comment on above:Performed By: #### TSH, CMP #### [facility] [address] [address] [address] Volodymyr PaezCO2 [Moles/Vol]30.1 mmol/TOygqxm00.0-32.0[facility] Comment on above:Performed By: #### TSH, CMP #### [facility] [address] [place] [address] Dr. Volodymyr PaezCreatinine [Mass/Vol]0.92 mg/dLNormal0.55-1.02[facility] HospitalComment on above:Performed By: #### TSH, CMP #### [facility] [address] [address] [address] Volodymyr HaydenGFR-AF IVORIAN>60Normal>=60The [facility] HospitalComment on above:Performed By: #### TSH, CMP #### [facility] [address] [address] [address] Volodymyr HaydenGFR-NON AF IVORIAN>60Normal>=60The [facility] HospitalComment on above:Performed By: #### TSH, CMP #### [facility] [address] [place] [address] Dr. Volodymyr PaezGlobulin (S) [Mass/Vol]4.4 g/dLNormalThe [facility] HospitalComment on above:Performed By: #### TSH, CMP #### [facility] [address] [address] [address] Volodymyr PaezGlucose [Mass/Vol]76 mg/zENjpjfb44-977Iwe [facility] Comment on above:Performed By: #### TSH, CMP #### [facility] [address] [place] [address] Dr. Volodymyr PaezPotassium [Moles/Vol]4.4 mmol/LNormal3.5-5.1The [facility] Comment on above:Performed By: #### TSH, CMP #### [facility] [address] [place] [address] Dr. Volodymyr PaezProtein [Mass/Vol]7.6 g/dLNormal6.4-8.2The [facility] Comment on above:Performed By: #### TSH, CMP #### [facility] [address] [place] [address] Dr. Volodymyr PaezSodium [Moles/Vol]137 mmol/LJmtbod312-160Eru [facility] Comment on above:Performed By: #### TSH, CMP #### [facility] [address] [place] [address] Dr. Volodymyr PaezUrea nitrogen [Mass/Vol]7.0 mg/dLNormal7.0-18.0[facility] HospitalComment on above:Performed By: #### TSH, CMP #### [facility] [address] [place] [address] Dr. Volodymyr Broussard nitrogen/Creatinine [Mass ratio]7.6 mg/mgNormalThe [facility] HospitalComment on above:Performed By: #### TSH, CMP #### [facility] [address] [place] [address] Dr. Volodymyr Everett 67-09-7104URZ4.099 uIU/mLCritically low0.358-3.740[facility] HospitalComment on above:Performed By: #### TSH, CMP #### [facility] [address] [place] [address] Dr. Volodymyr Munoz/ TIGISTIC ACIDon 01-12-9727LGBQSIYQ03.4 ug/mlNormal 50.0-100.0The [facility] HospitalComment on above:Performed By: #### TSH, CMP #### [facility] [id number] Volodymyr Moore THYROIDon 55-79-1971HW THYROIDEXAMINATION: US THYROID HISTORY: Non-toxic multinodular goiter COMPARISON: [...] screening is still recommended. TR 4: The [employer] TI-RADS committee's white paper recommendations for thyroid lesions classified as TR4 (moderately suspicious) are listed below: > 1.0 cm. Follow-up ultrasound in 1, 2, 3, and 5 years. > 1.5 cm. FNA. J. Am Chidi Radiol 2017;14:587-595. Electronically authenticated by: KRIS MENDOZA Date: 2021-10-25 09:31NormalThe [facility] HospitalFREE T4on 06-75-5644Gwpf T4 [Mass/Vol]1.08 ng/dLNormal0.76-1.46 The [facility] HospitalComment on above:Performed By: #### TSH, CMP #### [facility] [address] Volodymyr Everett 80-59-8333KLQ18.719 uIU/mLCritically high0.358-3.740The [facility] HospitalComment on above:Performed By: #### TSH #### [facility] [address] Volodymyr Paez Vital Signs Date TimeVital SignValuePerforming DvbdvifldGxcrlxyf31-82-8974 09:34-0500Body mass index (BMI) [Ratio]22.73 kg/d7VsqvrShanna Del Valle MD Work Phone: 1(050)987-[address] [place], [place] 1277911-05-2025 09:34-0500Body qgthse87.96 kgShanna Del Valle MD Work Phone: 1(761)175-[address] [place], [place] 1277911-05-2025 09:34-0500Diastolic blood mm[Hg]Shanna Del Valle MD Work Phone: 1(596)998-[address] [place], [place] 1277911-05-2025 09:34-0500Heart rate 79 /minShanna Del Valle MD Work Phone: 1(639)999-[address] [place], [place] 1277911-05-2025 09:34-7707BtH4% (BldA) [Mass fraction]97 %Shanna Del Valle MD Work Phone: 1(297)748-[address] [place], [place] 1277911-05-2025 09:34-0500Systolic blood gugpregf276 mm[Hg]Shanna Del Valle MD Work Phone: 1(003)281-[address] [place], [place] 1277911-04-2025 09:47-0500Body eawgyo845.1 cmMarjuany Hackettce DPM FACFAS Work Phone: 1([phone])[address]11-04-2025 09:47-0500Body mass index (BMI) [Ratio]21.3 kg/m2Marc Lewce DPM FACFAS Work Phone: 1(165)[address] [place], [place] 7473811-04-2025 09:47-0500Body mkawlw37.06 kgMarc Lewce DPM FACFAS Work Phone: [phone])[address] [address]-04-2025 09:47-0500Diastolic blood aquroogf06 mm[Hg]Lai Alston DPM FACFAS Work Phone: [phone])[address] [address]-04-2025 09:47-0500Heart rate70 /min Lai Alston DPM FACFAS Work Phone: [phone] [address]-04-2025 09:47-0500Systolic blood qtduvsrz346 mm[Hg]Lai Alston DPBindu FACFAS Work Phone: [facility] HospitalQpmmqctwcf53-58-2778 13:12-0400Body izvhsy52.74 kgDaniel Iyer DO Work Phone: [facility]10-08-2025 13:12-0400 Diastolic blood qyxlxpvk17 mm[Hg]Nathan Iyer DO Work Phone: 1(425)627-[address] [place], [place] 6125110-08-2025 13:12-0400 Heart rate89 /minDaniel Iyer DO Work Phone: [phone])[address]10-08-2025 13:12-0400 SaO2% (BldA) [Mass fraction]98 %Nathan Iyer DO Work Phone: 1(803)120-[address] [place], [place] 6125110-08-2025 13:12-0400 Systolic blood utyyxzmp430 mm[Hg]Nathan Iyer DO Work Phone: 1(771)[address]09-19-2025 08:01-0400 Body kpivfe862.1 cmDaniel Iyer DO Work Phone: 1(380)[address]09-19-2025 08:01-0400 Body .87 kgDaniel Iyer DO Work Phone: 1(342)175-[address] [place], [place] 6125109-19-2025 08:01-0400 Diastolic blood xbgalbow50 mm[Hg]Nathan Iyer DO Work Phone: 1(473)308-[address] [place], [place] 6125109-19-2025 08:01-0400 Heart rate87 /minDaniel Iyer DO Work Phone: 1(117)664-[address] [place], [place] 6125109-19-2025 08:01-0400 Respiratory rate16 /minDaniel Iyer DO Work Phone: 1(983)905-[address] [place], [place] 6125109-19-2025 08:01-0400 SaO2% (BldA) [Mass fraction]97 %Nathan Iyer DO Work Phone: [facility]09-19-2025 08:01-0400 Systolic blood qyuuowwl740 mm[Hg]Nathan Iyer DO Work Phone: [facility]08-05-2025 10:00-0400 Body tkatfc085.1 cmMarc Dolce DPM FACFAS Work Phone: 1(698)[address] [place], [place] 7473808-05-2025 10:00-0400Body mass index (BMI) [Ratio]21.3 kg/m2Marc Dolce DPM FACFAS Work Phone: 1(082)[address] [place], [place] 7473808-05-2025 10:00-0400Body vbxlyt78.06 kgMarc Dolce DPM FACFAS Work Phone: 1(172)[address] [place], [place] 7473808-05-2025 10:00-0400Diastolic blood fapeybbo57 mm[Hg]Lai Dolce DPM FACFAS Work Phone: 1(496)[address] [place], [place] 7473808-05-2025 10:00-0400Heart rate70 /min Lai Dolce DPM FACFAS Work Phone: 1(306)[address] [place], [place] 7473808-05-2025 10:00-0400Systolic blood uxbtykad050 mm[Hg]Lai Dolce DPM FACFAS Work Phone: 1(013)[address] [place], [place] 7473805-06-2025 11:03-0400Body .1 cmMarc Dolce DPM FACFAS Work Phone: 1(666)[address] [place], [place] 7473805-06-2025 11:03-0400Body mass index (BMI) [Ratio]21.3 kg/m2Marc Dolce DPM FACFAS Work Phone: 1(998)[address] [place], [place] 7473805-06-2025 11:03-0400Body fjughc90.06 kgMarc Dolce DPM FACFAS Work Phone: 1(335)[address] [place], [place] 7473805-06-2025 11:03-0400Diastolic blood gkuonbpk87 mm[Hg]Lai Dolce DPM FACFAS Work Phone: 1(282)[address] [place], [place] 7473805-06-2025 11:03-0400Heart rate71 /min Lai Alston DPM FACFAS Work Phone: [facility] HospitalInckldtoky18-94-3285 11:03-0400Systolic blood hzzkmbea325 mm[Hg]Lai Alston DPM FACFAS Work Phone: [facility] HospitalWplszehzbd29-83-1390 10:16-0400Body .1 cmAngela Lowe PA Work Phone: [facility] HospitalZzzpllaicr10-50-2502 10:16-0400Body mass index (BMI) [Ratio]21.47 kg/f9Hmumcl Lowe PA Work Phone: [facility] HospitalMlpbvvhavi52-82-7377 10:16-0400Body mljykv92.51 kgAngela Lowe PA Work Phone: [facility] HospitalZrxgjafwur03-28-9385 10:16-0400Diastolic blood eoedxjyj94 mm[Hg]Eduarda Lowe PA Work Phone: [facility] HospitalWnrqlskmbp39-08-4188 10:16-0400Systolic blood mm[Hg]Eduarda Lowe PA Work Phone: [facility] HospitalIudwydmygf23-77-3294 10:24-0500Body .1 cmMarjuany Alston DPM FACFAS Work Phone: [facility] HospitalOfginbuteu99-40-8552 10:24-0500Body mass index (BMI) [Ratio]21.47 kg/m2Lai Alston DPM FACFAS Work Phone: [facility] HospitalGpyuxpjppj55-90-8911 10:24-0500Body xltera72.51 kgMarc Alecia DPM FACFAS Work Phone: [facility] HospitalJcsqnccnty40-65-5834 10:24-0500Diastolic blood mxahtlaj22 mm[Hg]Lai Alston DPM FACFAS Work Phone: [facility] HospitalCylxittmyu14-00-9817 10:24-0500Heart rate74 /min Lai Alston DPM FACFAS Work Phone: [facility] HospitalLkmmqzmlgr17-88-8626 10:24-0500Systolic blood xxvbiabu591 mm[Hg]Lai Alston DPM FACFAS Work Phone: [facility] HospitalZqfultyhuu35-70-6628 09:45-0500Body awvxox889.1 cmAngela Lowe PA Work Phone: [facility] HospitalHgjffrmxzv19-11-2501 09:45-0500Body mass index (BMI) [Ratio]21.47 kg/h7Siimts Lowe PA Work Phone: [facility] HospitalOyiqaagewu19-86-1182 09:45-0500Body dmdilf40.51 kgAngela Lowe PA Work Phone: [facility] HospitalUjfzlbjmug91-96-6716 11:19-0500Body tycifo936.1 cmMarjuany Alston DPM FACFAS Work Phone: [facility] HospitalVgayafifpd90-64-4685 11:19-0500Body mass index (BMI) [Ratio]21.3 kg/m2Marc Lewce DPM FACFAS Work Phone: [phone])[address]11-19-2024 11:19-0500Body .06 kgMarc Lewce DPM FACFAS Work Phone: [phone] CenterSarah [facility] [address]Zqimfdniwn63-30-9250 11:19-0500Diastolic blood ueqnmoul46 mm[Hg]Lai Alston DPM FACFAS Work Phone: 1(285)[address] [place] [address]-19-2024 11:19-0500Heart rate88 /min Lai Alston DPM FACFAS Work Phone: 1(893)[address] [address]-19-2024 11:19-0500Systolic blood ogysvows773 mm[Hg]Lai Alston DPM FACFAS Work Phone: 1(981)[address] [address]-11-2024 12:30-0500Body temperature 98.1 [degF]Elmer Topete DDS Work Phone: 1(741) [phone]mLzedfj84-28-4256 12:30-0500Diastolic blood gydjoajg89 mm[Hg]Elmer Topete DDS Work Phone: 1(268) [phone]49-682142XkzgfOjxkpq62-32-6161 12:30-0500Heart yfac648 /min Elmer Topete DDS Work Phone: 1(524) [phone]26-293547UphsgGzfipq12-72-0903 12:30-0500Respiratory rate19 /minElmer Topete DDS Work Phone: 1(133) [phone]HrdpyStyrjb18-66-5465 12:30-4807ZgA8% (BldA) [Mass fraction]98 %Elmer Topete [employer] Work Phone: 1(379) [phone]unfRyfqji73-99-6363 12:30-0500Systolic blood mm[Hg]Elmer Topete [employer] Work Phone: 1(178) [phone]aXrejpj20-72-2237 09:11-0500Body sauszg141.6 cm Elmer Topete DDS Work Phone: 1(291) 163-9924960-7895BwjlqZolzxw84-942420PfnqbZrwqxp21-62-5358 09:11-0500Body mass index (BMI) [Ratio]23.45 kg/n9DtkrcElmer Topete DDS Work Phone: 1(226) [phone]eBhvuts62-40-7121 09:11-0500Body .96 kg Elmer Topete [employer] Work Phone: 1(341) [phone]3-040335BeimpZvjmnp24-24-7511 11:00-0400Body atbwnh297.6 cm Kelly Irineo FIKinbyGnaxem81-15-3938 11:00-0400Body mass index (BMI) [Ratio] 23.45 kg/b4BsgzyeblKelly Cabello VCHgqxhDstttq03-20-7591 11:00-0400Body ipxsae68.96 kg Kelly Irineo YSWzmaoGixrcr19-03-7950 11:05-0400Diastolic blood mm[Hg]Radha AMADOR Work Phone: noSaint [facility] HospitalGrzdbysnmz82-21-9282 11:05-0400Heart rate92 /min Radha AMDAOR Work Phone: noSaint [facility] HospitalUojzcojdxh24-75-7767 11:05-0400Respiratory rate16 /minRadha AMADOR Work Phone: noSaint [facility]'s Saint [facility] HospitalEddfesaoxv16-68-8691 11:052045YkP6% (BldA) [Mass fraction]96 %Radha AMADOR Work Phone: NOSaint John's Saint Francis HospitalFsfeeenxym23-20-5732 11:05040Systolic blood tezudrxg923 mm[Hg]Radha AMADOR Work Phone: [facility] Encounters Encounter DateEncounter TypeCare ProviderFacilityStart: 03-56-3869fbqceyvhte ДМИТРИЙ Kang [facility] Hospitaltart: 02-24-2025 End: 93-51-7015Gkpvzt consultation new/estab patient 58 Rohit Del Valle MD Work Phone: [facility] of [facility] HospitalComment on above:Other allergy, initial encounter (Primary Dx); Chronic rhinitisStart: 02-23-2025 End: 66-33-8098Exrtjk flowsheetMarc D Dolce DPM FACFAS Work Phone: [facility] Hospitalt[facility]: 02-23-2025 End: 23-59-0956Wkihcp flowsheetMarc D Dolce DPM FACFAS Work Phone: [facility] Hospitaltart: 02-23-2025 End: 70-60-1727Ntbusnx encounter procedureMarc D Dolce DPM FACFAS Work Phone: [facility]oms [facility] PODComment on above:Onychomycosis (Primary Dx); Pain in right toe(s); Pain in left toe(s)Start: 02-23-2025 End: 01-60-2431qetybdxdnzJNSD D DOLCENot AvailableStart: 01-27-2025 End: 45-19-4039zeofiqtrtuQixzff A Herring DO Work Phone: [facility] Work Phone: Start: 01-27-2025 End: 71-48-9096Kfmkwmv encounter procedureChristopher Jodie Ruano DO-[facility] [place] Work Phone: Start: 01-08-2025 End: 23-75-8890Xqaekjz encounter procedureSmary Duvall BBWC-SWI-[facility] HospitalStart: 01-08-2025 End: 95-21-4931lntetlxtlaWiviwr A Iyer DO Work Phone: [facility] Work Phone: Start: 12-28-2024 End: 06-42-1947Qldcnkvu ReferredSagloria Duvall QIVW-BTT-Y-Pre-Surgical Testing Work Phone: Start: 12-28-2024 End: 05-23-0412Baqpsci encounter procedureSmary Duvall OPERATIONS PLANNER-[employer]OUNDRY MOLDER-C -Pre-Surgical Testing Work Phone: Start: 12-28-2024 End: 67-26-5643aezatcfotwNiluwr A Iyer DO Work Phone: [facility] Work Phone: Start: 12-24-2024 End: 89-37-9157Uwuoeh outpatient new 30 minutesMarla Serge Monroy [facility] Work Phone: [facility] Physicians Ear, Nose and ThroatComment on above:Recurrent sinusitis (Primary Dx); Recurrent sinus infections; Nasal congestionStart: 12-24-2024 End: 72-11-8502fluatmgumkXPKNL D [facility] PPGStart: 11-24-2024 End: 95-16-0208Btowev flowsheetMarc D Dolce DPM FACFAS Work Phone: [facility] BrownwoodwnStart: 11-24-2024 End: 98-32-2396Glirwi flowsheetMarc D Dolce DPM FACFAS Work Phone: [facility] BrownwoodwnStart: 11-24-2024 End: 21-82-8873bxszwvqrxyDLNP D DOLCENot AvailableStart: 11-24-2024 End: 07-56-9743Bervvla encounter procedureMarc D Dolce DPM FACFAS Work Phone: noMS NMA PODComment on above:Onychomycosis (Primary Dx); Pain in right toe(s); Pain in left toe(s)Start: 10-01-2024 End: 07-28-5455luubvcavoyBpzevf A HerringFacility:[facility] Centertart: 08-25-2024 End: 23-67-0224Uyisfr flowsheetMarc D Dolce DPM FACFAS Work Phone: [facility] PODStart: 08-25-2024 End: 84-77-6623Sqdzsl flowsheetMarc D Dolce DPM FACFAS Work Phone: [facility] PODStart: 08-25-2024 End: 75-25-0740Ivzfahe encounter procedureMarc D Dolce DPM FACFAS Work Phone: noMS [facility] PODComment on above:Onychomycosis (Primary Dx); Pain in right toe(s); Pain in left toe(s)Start: 08-25-2024 End: 68-94-5155imtdirlfvkQXLK D DOLCENot AvailableStart: 08-11-2024 End: 61-23-1926Gnkuti flowsheetAngela Lowe PA Work Phone: a[facility] [place]UEStart: 08-11-2024 End: 96-54-8979Xqwvks flowsheetAngela Lowe PA Work Phone: a[facility] [place]UEStart: 08-11-2024 End: 83-43-5803Drikoc outpatient visit 25 minutesAngela Lowe PA Work Phone: aNA [place]LEVUEComment on above:Seizure disorder (CMS/HCC) (Primary Dx); Gait instability; Pseudobulbar affect; Developmental delay; WeaknessStart: 08-11-2024 End: 44-51-5250trnpqodkmzGSLHFS LOWENot AvailableStart: 06-10-2024 End: 94-05-8846Hhnxwf flowsheetMarc D Dolce DPM FACFAS Work Phone: noMS [facility] PODStart: 06-10-2024 End: 96-26-7596Cxnvqy flowsheetMarc D Dolce DPM FACFAS Work Phone: [facility] PODStart: 06-10-2024 End: 94-92-6897Zpjjkjb encounter procedureMarc D Dolce DPM FACFAS Work Phone: noMS [facility]MA PODComment on above:Onychomycosis (Primary Dx); Pain in right toe(s); Pain in left toe(s)Start: 06-10-2024 End: 69-73-0233hfhpkckfaxKJLA D DOLCENot AvailableStart: 06-03-2024 End: 32-07-5736Vaclkh outpatient visit 25 minutesAngeamanda AMADOR Work Phone: a[facility] [place]Comment on above:Seizure disorder (CMS/HCC) (Primary Dx); Autism (CMS/HCC); Developmental delay; Gait instabilityStart: 06-03-2024 End: 54-36-4169gnfhgwzmswSPFEKZ LOWENot AvailableStart: 03-10-2024 End: 96-82-5279Uxxzgm flowsheetMarc D Dolce DPM FACFAS Work Phone: [facility] PODStart: 03-10-2024 End: 87-88-2308Tlyarw flowsheetMarc D Dolce DPM FACFAS Work Phone: [facility] PODStart: 03-10-2024 End: 84-69-1208jvklahuhccKSEC D DOLCENot AvailableStart: 03-10-2024 End: 56-69-1592Minqfb outpatient new 30 minutesMarc D Dolce DPM FACFAS Work Phone: noMS NMA PODComment on above:Venous insufficiency (chronic) (peripheral) (Primary Dx); Onychomycosis; Pain in right toe(s); Pain in left toe(s); OnychocryptosisStart: 03-02-2024 End: 64-60-2329Goauood encounter German Topete DDS Work Phone: [facility] DentistryStart: 03-02-2024 End: 98-38-8679Eivuzwwspo hospital visit by Lm Topete DDS Work Phone: [facility] Ambulatory SurgeryStart: 03-02-2024 End: 64-01-2271qikgsngohmVQTIG AL-MASHNIFacility:[facility] CenterStart: 02-26-2024 End: 84-31-6693Idwabkpme encounterJrgloria Irineo RNMercer County Community Hospital Pre-Admission TestingComment on above:Pre-surgical Evaluation (DD adult dental restorations 03/02 under [place] at [place]. PAT completed - anesthesia consent. PAT RN spoke to Mary (nurse), confirmed NPO, [place] address, and 0900 arrival time/)Start: 02-24-2024 End: 93-23-0610Rrwmbosuo encounterMelbao Eusebio [facility] Pre-Admission TestingComment on above:PAT (Anesthesia consent obtained)Start: 02-21-2024 End: 01-28-0988Dwqogxcjk encounterMelbao Kaplan [facility] Pre-Admission TestingComment on above:PAT (Anesthesia consent obtained)Start: 02-19-2024 End: 63-82-9288Sevgyun evaluation of patient and reportKelly Cabello RN [facility] Pre-Admission TestingComment on above:Pre-op evaluation (Primary Dx)Start: 02-19-2024 End: 15-40-0652Cqqkvogmzrpdv examination donePerrydes Irineo [facility] HospitalStart: 88-56-3631wezqsvdxpdUHOKJPB PROVIDERFacility:[facility] CenterStart: 02-19-2024 Encounter for other preprocedural examinationUNKNOWN PROVIDERThe [facility] SystemStart: 02-05-2024 End: 49-85-2621Irvlsgn encounter procedureRefugio Ferrell APRN-KEMI Work Phone: [facility] Pre-Admission TestingComment on above:NO SHOW (Primary Dx)Start: 01-21-2024 End: 87-67-9867Ohnjfp Alis AMADOR Work Phone: [facility]Start: 01-21-2024 End: 57-33-3475Noorud flowsheetRadah AMADOR Work Phone: [facility] ROUTEStart: 01-21-2024 End: 14-03-2124Odujen outpatient visit [facility] hospitalRadha Juan AMADOR Work Phone: n[facility] ROUTEComment on above:Seizure disorder (CMS/HCC) (Primary Dx); Mental deficiency (CMS/HCC); Autism (CMS/HCC); Pseudobulbar affect; Gait instabilityStart: 12-27-2023 End: 38-92-5985Jhanhbouo to [facility] day [facility] Bayyandel Weber DDS Work Phone: [facility] DentistryStart: 01-09-2023 End: 17-97-4510pyolugsvptWHLJFR HERRINGFacility:FTMCStart: 08-29-2022 End: 72-74-7146hybaipndygMW NATHAN Craft HERRINGFacility:U1Napdh: 08-21-2022 End: 50-79-8974ndjdczuwujPJ DOCTOR MISCFacility:D6Myudv: 08-09-2022 End: 45-12-1359iutfabsrbtUQ NATHAN Craft HERRINGFacility:Q0Nvxzy: 07-21-2022 End: 14-66-2204sszzxvexdeDV UMAIR TURNER .Facility:X1Ergsb: 07-10-2022 End: 68-99-0437owycywpbawON DOCTOR MISCFacility:F0Dxrug: 06-27-2022 End: 98-26-2339mohlxtlheoKX NONE LISTED REQUESTFacility:Z4Paokb: 04-30-2022 Telephone encounterMartha Coreas DMD Work Phone: [facility] DentistryComment on above:DentalStart: 04-03-2022 End: 43-15-9540vygaimkpqwCO DANIEL A HERRINGFacility:P0Tkmpo: 03-13-2022 End: 22-13-5564Xyzbfvx encounter procedureMartha Coreas DMD Work Phone: [facility] DentistryStart: 10-24-2021 End: 60-31-8258dvtalgpzxpSN DOCTOR MISCFacility:Y4Pwoku: 11-07-2016 End: 05-64-2374OqqqvuxrvoACVCFOF PHYSICIANFacility:[facility] Procedures DateProcedureProcedure DetailPerforming ClinicianStart: 03-02-2024 End: 54-11-7257Cdokv test visual color cmprsn Windy Luna MD Work Phone: Plan of Treatment DateCare ActivityDetailAuthorStart: 60-64-2513Qrklwrel (RZV) Vaccine (1 of 2) Shingles (RZV) Vaccine (1 of 2)[facility] HospitalStart: 03-65-6412Eilpu BMI Screening Adult BMI ScreeningECU Health Chowan Hospitaltart: 12-22-2025 End: 39-42-3375Wsoxnxg encounter /02/2026 11:00 AM EDT Office Visit [facility] [address] [place] [address] Matilde Wilson, [facility] [address] [place] [address] [facility] DentistryStart: 05-25-2025 End: 67-45-4128Bzntkck encounter vkpevqbfr46/03/2026 9:30 AM EST Procedure Visit [facility] [address] [place] [phone] Lai Alston, DPM FACFAS [address] [place] [address] [facility] NMA PODStart: 03-16-2025 End: 96-89-6251Egnlqah encounter sypdomaud23/25/2025 12:45 PM EST Office Visit [facility] [address] [place] [address] Philip Monroy, PA-C [address] [facility] [address] [place] [address] [facility] ThroatStart: 61-34-3349Fptkxh X-Ray: BitewingsDental X-Ray: BitewingsMetroHealthStart: 02-24-2025 End: 38-14-0023Rwpljbs encounter zrforkokv59/05/2025 9:30 AM EST Office Visit [facility] All[facility] and Immunology, A Department of [facility] [address] [place] [phone] Shanna Del Valle MD [address] [place] [address] [facility] All[facility] Immunology, A Department of [facility] Start: 02-23-2025 End: 66-88-6427Stacumm encounter procedureNOMS NMA PODComment on above:Arrived Start: 02-17-2025 End: 50-13-8444Dlqdrtn encounter mfefzeqzt49/29/2025 2:45 PM EDT Office Visit [facility] [address] [place] [phone] Philip Monroy, PAMisaelC [address] [address] [facility] ThroatStart: 55-36-4844RZ CAT/MRI W/ IV SEDATION (Not Applicable) OR CAT/MRI W/ IV SEDATION (Not Applicable)[facility] Start: 15-26-6901BGVFV-19 Vaccine ( season)COVID-19 Vaccine ( season)[facility]HealthStart: 97-38-1995HPZTS-19 Vaccine ( season) COVID-19 Vaccine ( season)[facility] HealthcareStart: 89-28-0438MKQPV-19 Vaccine ( season)COVID-19 Vaccine ( season)[facility] SystemStart: 60-29-7877Ovhohtzjd vaccinationNOOK HealthcareStart: 11-03-2024 End: 01-29-2709Dnhfgam encounter ejvzjukxw51/15/2025 11:00 AM EDT Procedure Visit [facility] [address] [place] [address] Lai Alston, DPM FACFAS [address] [place] [address] [facility] SpecialistsStart: 34-84-2928Mjcxwm Oral ExamDental Oral ExamMetroHealthStart: 02-11-1080Wqzzwe ProphylaxisDental ProphylaxisMetroHealthStart: 08-25-2024 End: 70-86-8067Duynfvy encounter procedureANA PORT CLINTONComment on above: ArrivedStart: 08-19-2024 End: 40-26-7133Opxajmk encounter cceoirgxj81/30/2025 11:00 AM EDT Procedure Visit [facility] [address] [place] [address] Lai Alston, DPM FACFAS [address] [place] [address] [facility] NMA PODStart: 08-11-2024 End: 14-59-3122Eywepja encounter procedureANA BELLEVUEComment on above:Arrived Start: 06-10-2024 End: 88-18-6096Aorqwgf encounter procedureNOMS NMA PODComment on above:Arrived Start: 05-12-2024 End: 37-25-2987Fecspco encounter hdfdncwoc20/21/2025 11:20 AM EST Office Visit [facility] [address] [place] [address] Radha Martinez PA [address] [place] [address] NOMNieves [facility] ROUTEStart: 03-02-2024 End: 80-06-7313Gkmrnavcy to same day surgery bystqf3303/02/2024 9:14 AM EST - 03/02/2024 10:58 AM EST Surgery [facility] [address] [place] [address] Elmer Topete, ERICS [address] [place] [address] [facility] SurgeryComment on above:DENTAL RESTORATIONSStart: 03-02-2024 End: 86-20-2306EVVBEO RESTORATIONSMetroHealthStart: 03-02-2024 End: 73-67-7527Wtidekigg to same day surgery krfxyv2003/02/2024 7:40 AM EST - 03/02/2024 9:24 AM EST Surgery [facility] [address] [place] [address] Elmer Topete DDS [address] [place] [address] DENTAL RESTORATIONS [facility] Ambulatory SurgeryComment on above:DENTAL RESTORATIONSStart: 03-02-2024 End: 16-98-0193SRRLYX RESTORATIONSDENTAL RESTORATIONS Routine scheduled Caries 03/02/2024 7:40 AM ESTMetroHealthStart: 02-58-9205Dnoffhkcqm hospital visit by physicianUniversity [facility] Ambulatory SurgeryStart: 03-02-2024 End: 30-74-8124Rxnykqt encounter procedureMercer County Community Hospital DentistryStart: 02-05-2024 End: 12-43-8150Igrvbmi encounter xendgtsnn10/16/2024 9:15 AM EDT Office Visit [facility] Pre-Admission Testing [address] [place] [address] Refugio Ferrell, OPERATIONS PLANNER-NUCLEAR WASTE MANAGEMENT ENGINEER [address] [place] [address] [facility] Pre-Admission TestingStart: 56-19-1812Pbceyqdkn vaccinationInfluenza Vaccine (#1)[facility] Start: 01-21-2024 End: 27-45-2437Xbaloninhzk levelLamotrigine level Lab Routine Seizure disorder (CMS/HCC) Expected: 01/21/2024 (Approximate), Expires: 01/20/2025[facility] Work Phone: Comment on above:Expected: 01/21/2024 (Approximate), Expires: 01/20/2025Start: 01-21-2024 End: 86-50-4767Stjlfaak acid level, totalValproic acid level, total Lab Routine Seizure disorder (CMS/HCC) Expected: 01/21/2024 (Approximate), Expires: 01/20/2025N[facility] HealthcareComment on above:Expected: 01/21/2024 (Approximate), Expires: 01/20/2025Start: 65-61-9807XLRJL-19 Vaccine ( season)COVID- 19 Vaccine ()[facility]roHealthStart: 42-30-6795FZKEV-19 Vaccine ()COVID-19 Vaccine ( season)[facility]roHealthStart: 75-51-6363Brtqamxeh vaccinationInfluenza Vaccine (#1)MetroHealthStart: 85-46-7962Igbazqcgi for malignant neoplasm of cervixNOMS HealthcareStart: 86-68-8116Javieeyjt vaccinationInfluenza Vaccine (#1)MetroHealthStart: 00-73-2069WJcS,Tdap and Td Vaccines (3 - Td or Tdap)DTaP,Tdap and Td Vaccines (3 - Td or Tdap)[facility] SystemStart: 72-24-0861MALXC-19 Vaccine (3 - Booster for Pfizer series)COVID-19 Vaccine (3 - Booster for Pfizer series) [facility]HealthStart: 21-95-2986YTA Vaccine (optional start 27-45 years)HPV Vaccine (optional start 27-45 years)MetroHealthStart: 28-80-5003KZP Vaccines (1 - 3-dose SCDM series)HPV Vaccines (1 - 3-dose SCDM series)[facility] HealthcareStart: 77-60-3555Gqsjjnluv for malignant neoplasm of cervixPap SmearMetroHealthStart: 11-48-1796Uuxemt wellness visitAnnual Wellness Visit (G0438)MetroHealthStart: 45-47-3741Lhykooqsa A (HAV) Vaccine (optional start 19+ years)Hepatitis A (HAV) Vaccine (optional start 19+ years)[facility]HealthStart: 73-37-1893Bokmbopde B vaccinationHepatitis B (HBV) Vaccine (1 of 3 - 19+ 3-dose series)[facility] Start: 48-31-3128Mhcgpywkz B Vaccines (1 of 3 - 19+ 3-dose series)Hepatitis B Vaccines (1 of 3 - 19+ 3-dose series)[facility] HealthcareStart: 94-77-7926Rtghx BMI ScreeningAdult BMI ScreeningProLicking Memorial Hospital SystemStart: 18-75-5233Pjiwufhdc C screeningHepatitis C AntibodyMetroHealthStart: 11-82-5463Bzmmycs + diphtheria + acellular pertussis vaccine (product)Tdap BoosterMetroHealthStart: 30-43-1069YAZ screeningHIV TestMetroHealthStart: 86-86-8980Phszdtu of varicella vaccination Varicella Vaccines (1 of 2 - 13+ 2-dose series)[facility] HealthcareStart: 2005 Depression ScreeningDepression ScreeningJ.W. [facility] Health SystemStart: 2005 Tobacco ScreeningTobacco ScreeningProLicking Memorial Hospital SystemStart: 01-02-2000 DTaP/Tdap/Td Vaccines (1 - Tdap)DTaP/Tdap/Td Vaccines (1 - Tdap)[facility] Start: 17-30-9824NKJ Vaccines (1 of 1 - Standard series)MMR Vaccines (1 of 1 - Standard series)[facility] HealthcareStart: 1993Medicare Annual Wellness (AWV) Medicare Annual Wellness (AWV)NOMS HealthcareDENTAL RESTORATIONSDENTAL RESTORATIONS Routine scheduled CariesMetroHealthPatient referralDayton Children'S Hospital Work Phone: End: 30-26-7703Hfxoykomzik allergy panelRespiratory allergy panel Lab Routine Chronic rhinitis Other allergy, initial encounter 1 Occurrences starting 02/24/2025 until 02/24/2026[facility] Work Phone: Comment on above:1 Occurrences starting 02/24/2025 until 02/24/2026Respiratory allergy panelRespiratory allergy panel Lab Routine Chronic rhinitis Other allergy, initial encounter 02/24/2025 10:42 AM EST [facility] Payers DatePayer CategoryPayerPolicy [id number]-[id number] --Stand AloneDENTAL-MEDICAID Member Subscriber Plan / Payer (Effective 2014-Present) Name: Ponce Esteves Relation to Subscriber: Self Name: Ponce Esteves Payer ID: Not on file Group ID: Not on file Type: Medicaid Address: [address] [place] [id number] [id number] [id number] 2013Medicare [facility] MEDIC[facility] [id number] .1.495814.3.57[id number] .1.424760.3.57[id number] .1.314568.3.57[id number] 2.1.688740.3.57[id number] 2.0.1.226147.3.579.[id number] 2.0.1.904971.3.57[id number] 2..1.519297.3.579.2.889736-19-7379Ljufuwu6133571 2..1.914935.3.579.2.9[id number] 2..1.164748.3.579.2.231037-72-4229Aysfvew9926594 2..1.738021.3.579.2.533643-73-7324Eeqrgfk1648396 2..1.765483.3.579.2.1259 [id number] 1960Medicare [id number] 2..1.344725.3.579.2. [id number] 2..1.698263.3.579.[id number] 2..1.584556.3.579.[id number] 2..1.255154.3.579.2.25140-51-1529Jpwutio5506421 2..1.038641.3.579.2.98575-14-7609Hinaojm8992137 2.0.1.476474.3.579.[id number] 2.0.1.883802.3.57[id number] 2.16.840.1.074594.3.57[id number] 2.16.840.1.73930[id number] 64y25265-mt16-41ot-[id number] 2.16.840.1.53847[id number] 2.840.1.523228.3.579.2.531 [id number] 2.16.840.1.693095.3.579.2.531 Social History DateTypeDetailFacilityTobacco smoking status NHISTobacco smoking consumption unknownMetroHealthStart: 89-10-6176Ndz Assigned At BirthNot on fileMetroHealth Start: 06-02-2020 End: 80-21-9284Jtvlfx identityNot on [facility] SystemStart: 09-03-2017 End: 01-24-5013Ohwrcko smoking status NHISNever smoked tobaccoNOMS Healthcare Start: 09-03-2017 End: 51-73-3244Dvwyppx use and exposureSmokeless tobacco non-userNOMS Healthcare Start: 10-01-2023 End: 53-88-4007Qzyfxgryz beverage intakeLifetime non-drinker (finding)[facility] HealthcareStart: 06-02-2020 End: 71-46-9457Mpikgvm of Social functionProLicking Memorial Hospital SystemStart: 07-06-2014 End: 28-33-6813PbkJcckhk (finding)[facility]HealthStart: 07-01-2019 End: 53-21-3312Ffqvpawrr beverage intakeCurrent non-drinker of alcohol (finding) ProMEssentia Health SystemStart: 10-66-8648Vssuyvddpg depression screening cbhrpxvikx6QmbSpsqqe Health SystemStart: 91-57-3704Lzr Assigned At BirthMercy Hospitaltart: 67-09-2199Jbvhwmd of drug misuse behaviorHas never misused drugs (situation)[facility] Goals DatePatient GoalDesired Activity/State Clinical Notes 03-13-2022 to 02-24-2025 Note Date & MwmqAovsRyhzhewa98-89-8625 History of Present illness Narrative* Shanna Del Valle MD - 02/24/2025 9:30 AM EST Images from the original note were not included. [facility] HISTORY OF PRESENT ILLNESS: Ponce is a 30 y.o. female who presents for new patient evaluation and consultation regarding recurrent sinus infections and nasal congestion. She is present today with her mother and caregiver. Shewas referred by Philip Monroy PA-C. PCP: NATHAN IYER, DO Nasal Congestion and Itchy Eyes: Has a [...] 2018 Performed by Destiney Magaña MD at [facility] WISDOM TOOTH EXTRACTION FAMILY HISTORY: Family History Problem Relation Age of Onset Hypothyroidism Father SOCIAL HISTORY: Social History Socioeconomic History Marital status: Single Tobacco Use Smoking status: Never Smokeless tobacco: Never Substance and Sexual Activity Alcohol use: No Drug use: No Sexual activity: Defer Environmental History: Allergy Environmental History Lives with: retirement Secondhand Smoke Exposure?: No Pets: no pets Mold/mildew: No Housing Type: retirement facility AC: Central Air Conditioning Heating: Furnace [...] - Continue to follow up with ENT (Philip Monroy PA-C). Follow up as needed pending allergy test results. Scribe Statement: Scribed for and in the presence of Shanna Del Valle MD by Jennifer Wolfe (scribe). I, Shanna Del Valle MD, personally performed the services described in the documentation, as scribed inmy presence, and confirm that the documentation is both accurate and complete. Shanna Del Valle MD [facility] Total time spent was 45 minutes: preparing to see the patient (e.g., review of tests), obtaining and/or reviewing history, examination, counseling and educating the patient/family/caregive, orders and documenting clinical information in the electronic or other health record. documented in this encounterCleveland [facility]11-05-2025 Instructions* Patient Instructions* Shanna Del Valle MD - [...] - Continue to follow up with ENT (Philip Monroy PA-C). Follow up as needed pending allergy test results. documented in this encounterCleveland Clinic Mentor Hospital11-04-2025 History of Present illness Narrative* Lai Alston DPM FACFAS - 02/23/2025 9:30 [...] affect 08/06/2023 Gait instability 08/06/2023 Seizure disorder ([facility]) Mental disability 01/15/2024 Resolved Ambulatory Problems [...] subungual debris. They were painful to palpation 09254 on the right [address]65[address] on the left. VASC: DP /PT were nonpalpable bilateral. Capillary refill time < 3 seconds Digits 1-5 bilateral NEURO: Huffman Cecy 5.07 monofilament was intact B/L. Vibratory [...] bedtime, Disp: , Rfl: documented in this encounterEastern Missouri State HospitalJpwrhgqqdp78-37-0885 Evaluation note* Diagnosis Onset Date Resolution Status Admit Date Autism acuteOctober 2024 12:36pmMental deficiencyacuteOctober 2024 12:36pm Gait instabilitychronicOctober 2024 12:36pmSeizure disorderchronicOctober 2024 12:36pm [facility] Work Phone: 1(905) 463-438809-04-2025 History of Present illness Narrative* Philip Monroy PA-C - 12/24/2024 10:15 AM EDT [facility] [address] [facility] [address] SUBJECTIVE: Patient ID (1995): Ponce Esteves is [...] autism and developmental delay and resides at [facility]. Mom reports that Ponce experiences chronic nasal [...] a brain MRI to be completed at [facility] in [place] next week which has to be done with sedation. HISTORY: Past Medical History: Diagnosis Date Abnormal ultrasound ADHD (attention deficit hyperactivity disorder) Allergic Alopecia Anxiety Anxiety disorder 09/03/2017 Autism Developmental delay 09/03/2017 Dysphagia 09/03/2017 Gato's disease History of seizure 09/03/2017 History of seizures Hypothyroidism Mental retardation Pervasive developmental disorder Pica RUQ abdominal pain Seizures ([facility]) Sleep apnea Strabismus Thickening of wall of gallbladder Thyroid nodule LEFT Vomiting 09/03/2017 Weight loss Past Surgical History: Procedure Laterality Date EGD N/A 2018 Performed by Destiney Magaña MD at [facility] WISDOM TOOTH EXTRACTION Family History Problem [...] [facility] - [place], [place] - [facility] - [place], [place]; Future Nasal congestion - [facility] - [place], [place] - [facility] [place], [place]; Future - azelastine (ASTELIN) 137 mcg [...] this chart were generated using voice recognition Building[employer] dictation software. Although every effort was made to ensure the accuracy of this automated shop lead, some errors in shop lead may have occurred. Philip Monroy PA-C 12/24/24 1224 documented in this encounterPremier Health Miami Valley HospitalBlue Badge Style Rehabilitation Institute Of MichiganIoalhl06-14-6845 History of Present illness Narrative* Lai Alston DPM FACFAS - 11/24/2024 9:30 [...] subungual debris. They were painful to palpation 63116 on the right 14580 on the left. VASC: DP /PT were nonpalpable bilateral. Capillary refill time < 3 seconds Digits 1-5 bilateral NEURO: Huffman Cecy 5.07 monofilament was intact B/L. Vibratory [...] 1through 10. MAURA Salas documented in this encounterEastern Missouri State HospitalEshtyefgbn43-94-6188 History of Present illness Narrative* MAURA Salas [...] Past Medical History: Diagnosis Date Anxiety Autism (CMS/[facility]) Disturbance of salivary secretion Mood disorder [...] subungual debris. They were painful to palpation 99429 on the right [address]4430 on the left. VASC: DP /PT were nonpalpable bilateral. Capillary refill time < 3 seconds Digits 1-5 bilateral NEURO: Huffman Cecy 5.07 monofilament was intact B/L. Vibratory [...] and thickness 1through 10. Lai Alston DPM FACSHANAE documented in this encounterEastern Missouri State HospitalYczfrmlyzs97-46-4256 History of Present illness Narrative* PERRY Vazquez - 08/11/2024 10:40 AM EDT Subjective Ponce Esteves is a 29 y.o. [...] Review Audit Reviewed by Freida Amezquita MA (Parish Visitor) on 08/11/24 at 1017 Medication Order Taking? Sig Documenting Provider Last Dose Status ammonium lactate (Amlactin) 12 % cream [id number] Apply 2 application topically Daily Patient not taking: Reported on 06/03/2024 Historical ProviderMD Active busPIRone (Buspar) 30 MG tablet [id number] Take 30 mg by mouth in the morning and 30 mg in the evening and 30 mg before bedtime. Historical ProviderMD Active cloNIDine (Catapres) 0.2 MG tablet [id number] Take 0.2 mg by mouth in the morning and 0.2 mg at noon and 0.2 mg in the evening and 0.2 mg before bedtime. Historical ProviderMD Active divalproex (Depakote) 125 MG EC tablet [id number] Take 500 mg by mouth in the morning and 500 mg in the evening and 500 mg before bedtime. Historical ProviderMD Active divalproex (Depakote) 125 MG EC tablet [id number] Take 1,000 mg by mouth at bedtime Do not crush, chew, or split. Historical ProviderMD Active famotidine (Pepcid) 40 MG tablet [id number] Take 40 mg by mouth Daily Historical MD Jennie Active guanFACINE (Tenex) 2 MG tablet [id number] Take 2 mg by mouth in the morning and 2 mg before bedtime. Historical MD Jennie Active lamoTRIgine (LaMICtal) 100 MG tablet [id number] Take 100 mg by mouth at bedtime Historical MD Jennie Active lamoTRIgine (LaMICtal) 150 MG tablet [id number] Take 150 mg by mouth in the morning. Historical MD Jennie Active levothyroxine (Synthroid, Levoxyl) 200 MCG tablet [id number] Take 200 mcg by mouth in the morning. Take before meals. Historical MD Jennie Active levothyroxine (Synthroid, Levoxyl) 25 MCG tablet [id number] Take 25 mcg by mouth in the morning. Takebefore meals. Historical ProviderMD Active loratadine (Claritin) 10 MG tablet [id number] Take 10 mg by mouth Daily Historical MD Jennie Active Melatonin 3 MG tablet dispersible [id number] Take 3 mg by mouth at bedtime Historical MD Jennie Active norethindrone-ethinyl estradiol (Ortho-Novum, Nortrel) 1-35 MG-MCG tablet [id number] Take 1 tablet bymouth Daily Historical MD Jennie Active paliperidone (Invega) 3 MG 24 hr tablet [id number] Take 3 mg by mouth in the morning and 3 mg before bedtime. Do not crush, chew, or split.. Historical MD Jennie Active polyethylene glycol, PEG, 3350 (Miralax) 17 g packet [id number] Take 17 g by mouth Daily Historical MD Jennie Active QUEtiapine (SEROquel) 200 MG tablet [id number] Take 200 mg by mouth at bedtime Historical MD Jennie Active QUEtiapine (SEROquel) 400 MG tablet [id number] Take 400 mg by mouth at bedtime Historical ProviderMD Active HPI History obtained from caregiver report from [place] Caregiver from [place] here with patient today SEIZURE -on lamictal and depakote -denies any missed doses -denies any recent seizure -[place] continues to use a wheelchair -she is [...] triceps, wrist extensors, wrist extensors, wrist flexor, manufacturing project manager strength 5/5. LUE Strength deltoid, biceps, triceps, wrist extensors, wrist extensors, wrist flexor, manufacturing project manager strength 5/5. RLE Strength illopsoas, quadriceps, tibialis [...] is note from PT and staff at [facility] [place] that the patient has had continued loss [...] or CTA she would require sedation per [place]. She continues with balance disturbance and worsening strength per PT at [facility] [place]. Blood work 09/12/2023: Valproic acid level 93.9, [...] Progress notes and PT notes reviewed from [place]. We will look into local options for [...] Follow up after imaging. documented in this encounterEastern Missouri State [id number] History of Present illness Narrative* Lai Alston DPM FACFAS - 06/10/2024 10:30 AM EST [...] subungual debris. They were painful to palpation 71921 on the right 87680 on the left. VASC: DP /PT were nonpalpable bilateral. Capillary refill time < 3 seconds Digits 1-5 bilateral NEURO: Huffman Cecy 5.07 monofilament was intact B/L. Vibratory [...] 1through 10. MAURA Salas documented in this encounterEastern Missouri State HospitalNimfofdgjt57-19-2998 History of Present illness Narrative* PERRY Vazquez [...] Review Audit Reviewed by Krista Wu MA ([facility]) on 06/03/24 at 0955 Medication Order Taking? Sig Documenting Provider Last Dose Status ammonium lactate (Amlactin) 12 % cream [id number] Apply 2 application topically Daily Patient not taking: Reported on 06/03/2024 Historical ProviderMD Active busPIRone (Buspar) 30 MG tablet [id number] Take 30 mg by mouth in the morning and 30 mg in the evening and 30 mg before bedtime. Historical ProviderMD Active cloNIDine (Catapres) 0.2 MG tablet [id number] Take 0.2 mg by mouth in the morning and 0.2 mg at noon and 0.2 mg in the evening and 0.2 mg before bedtime. Real Schneider MD Active divalproex (Depakote) 125 MG EC tablet [id number] Take 500 mg by mouth in the morning and 500 mg in the evening and 500 mg before bedtime. Real Schneider MD Active divalproex (Depakote) 125 MG EC tablet [id number] Take 1,000 mg by mouth at bedtime Do not crush, chew, or split. Historical MD Jennie Active famotidine (Pepcid) 40 MG tablet [id number] Take 40 mg by mouth Daily Historical ProviderMD Active guanFACINE (Tenex) 2 MG tablet [id number] Take 2 mg by mouth in the morning and 2 mg before bedtime. Historical ProviderMD Active lamoTRIgine (LaMICtal) 100 MG tablet [id number] Take 100 mg by mouth at bedtime Historical MD Jennie Active lamoTRIgine (LaMICtal) 150 MG tablet [id number] Take 150 mg by mouth in the morning. Historical ProviderMD Active levothyroxine (Synthroid, Levoxyl) 200 MCG tablet [id number] Take 200 mcg by mouth in the morning. Take before meals. Historical MD Jennie Active levothyroxine (Synthroid, Levoxyl) 25 MCG tablet [id number] Take 25 mcg by mouth in the morning. Takebefore meals. Historical MD Jennie Active loratadine (Claritin) 10 MG tablet [id number] Take 10 mg by mouth Daily Historical MD Jennie Active Melatonin 3 MG tablet dispersible [id number] Take 3 mg by mouth at bedtime Historical MD Jennie Active norethindrone-ethinyl estradiol (Ortho-Novum, Nortrel) 1-35 MG-MCG tablet [id number] Take 1 tablet bymouth Daily Historical MD Jennie Active paliperidone (Invega) 3 MG 24 hr tablet [id number] Take 3 mg by mouth in the morning and 3 mg before bedtime. Do not crush, chew, or split.. Historical MD Jennie Active polyethylene glycol, PEG, 3350 (Miralax) 17 g packet [id number] Take 17 g by mouth Daily Historical ProviderMD Active QUEtiapine (SEROquel) 200 MG tablet [id number] Take 200 mg by mouth at bedtime Historical MD Jennie Active QUEtiapine (SEROquel) 400 MG tablet [id number] Take 400 mg by mouth at bedtime Historical ProviderMD Active HPI History obtained from caregiver report from [place] Caregiver from [place] here with patient today SEIZURE -on lamictal and depakote -denies any missed doses -denies any recent seizure -[place] continues to use a wheelchair for long [...] triceps, wrist extensors, wrist extensors, wrist flexor, manufacturing project manager strength 5/5. LUE Strength deltoid, biceps, triceps, wrist extensors, wrist extensors, wrist flexor, manufacturing project manager strength 5/5. RLE Strength illopsoas, quadriceps, tibialis [...] or CTA she would require sedation per [place]. She had two recent falls 3/27/24and 08/02/23. She was evaluated at [facility] ER. Lamictal dose was recently decreased, [...] seizure prevention Continue with fall precautions at [place] and assisted transfers and supervision/assistance with ambulation to avoid falls. She is at a high risk of trauma and debility associated with falls. Follow up 2 months documented in this [facility]11-19-2024 History of Present illness Narrative* Lai Alston DPM FACFAS - 03/10/2024 10:50 AM EST [...] Past Medical History: Diagnosis Date Anxiety Autism ([facility]) Disturbance of salivary secretion Mood disorder [...] subungual debris. They were painful to palpation 80427 on the right 86676 on the left. VASC: DP /PT were nonpalpable bilateral. Capillary refill time < 3 seconds Digits 1-5 bilateral NEURO: Huffman Cecy 5.07 monofilament was intact B/L. Vibratory [...] the nails. MAURA Salas documented in this encounterSarah Ville [id number] Hospital Discharge instructions* Discharge Instructions* Rehana Aguillon RN - 03/02/2024 12:22 PM EST PERIOPERATIVE DISCHARGE/HOME-GOING INSTRUCTIONS ANESTHESIA - GENERAL (ADULT) If a problem arises, you may contact your physician by calling [phone] and asking for the resident electronic warfare technical for Dental service. Special Care Needs: Activity: [...] very uncomfortable and can t urinate, call [phone] or come to the emergency room. A [...] the home going instructions. documented in this [id number] Miscellaneous Notes* Brief Operative Note - Paula Contreras DDS - 03/02/2024 10:26 AM EST Brief Operative Note [facility] OR 3 Ponce Esteves 29 year old female Surgical Contact Serial Number: [id number] Preoperative Diagnosis: Pre-op Diagnosis * Caries [K02.9] Postoperative Diagnosis: * Caries [K02.9] Procedures: Full mouth x-ray [29167] Prophylaxis [95161] Restorations [79730] Floride application [78655] Surgeon(s): Surgeon(s): Elmer Topete DDS Staff: Rough Rice Grader Nurse: Trudi Padilla Corporate Librarian: Paula Contreras DDS; Melquiades Christie DDS Anesthesia: General Anesthesiologist: Milton Luna MD COMMERCIAL GREEN BUILDING ARCHITECT: Adalgisa Smith APRN-DARSHAN Sensitometrist: Dayanna Preciado MD Specimen(s): * No specimens [...] were discussed with the patient and/or legal b2b outside sales representative. The risks, benefits and alternatives were reviewed. Questions regarding blood transfusions were answered. The patient /or the patient s legal b2b outside sales representative agree with the plan for transfusion of blood and/or blood components. * OP Note - Paula Contreras DDS - 03/01/2024 6:14 PM EST Surgical Case Number Data Unavailable Operating Room Data Unavailable Preoperative Diagnosis(es): Caries [k02.9] Surgeon: Dr. Topete Imaging Assistant Surgeon: Melquiades Arias DDS - Paula Contreras [...] the treatment plan included the following: Composite uatsdin on tooth#7 surface ML. Amalgam restorations on [...] 03/02/2024 11:56 AM EST documented in this [id number] Surgery Postoperative evaluation and management note* Brief Operative Note - Paula Contreras DDS - 03/02/2024 10:26 AM EST Brief Operative Note [facility] OR 3 Ponce Esteves 29 year old female Surgical Contact Serial Number: [id number] Preoperative Diagnosis: Pre-op Diagnosis * Caries [K02.9] Postoperative Diagnosis: * Caries [K02.9] Procedures: Full mouth x-ray [19087] Prophylaxis [41442] Restorations [88385] Floride application [94402] Surgeon(s): Surgeon(s): Elmer Topete DDS Staff: Rough Rice Grader Nurse: Trudi Padilla Corporate Librarian: Paula Contreras DDS; Melquiades Christie DDS Anesthesia: General Anesthesiologist: Milton Luna MD COMMERCIAL GREEN BUILDING ARCHITECT: Adalgisa Smith APRN-DARSHAN Sensitometrist: Dayanna Preciado MD Specimen(s): * No specimens [...] Topete DDS at 03/02/2024 11:55 AM EST [id number] History and physical note* Melquiades Christie DDS - 03/02/2024 9:38 AM EST Images from the original note were not included. Surgical History and Physical [facility] Ambulatory Surgery [address] [place] [address] Name: Ponce Esteves : 1995 29 year old CSN: [id number] Attending: Elmer Topete DDS Date of Admission: [...] surgical history indicates: EXTRACTION, TOOTH (09/15/2014) Procedure: Stayton teeth; Surgeon: Bradley Goodwin DDS; Location: PERIOPERATIVE [...] or any previous visit (from the past 93448 hours). BMP (last 3 years, up to [...] Topete DDS at 03/02/2024 11:48 AM EST [facility] Work Phone: 1(629) 589-381911-11-2024 NoteSurgical History and Physical [facility] Ambulatory Surgery [address] [place] [address] Name: Ponce Esteves : 1995 29 year old CSN: [id number] Attending: Elmer Topete DDS Date of Admission: [...] surgical history indicates: EXTRACTION, TOOTH (09/15/2014) Procedure: Stayton teeth; Surgeon: Bradley Goodwin DDS; Location: PERIOPERATIVE [...] or any previous visit (from the past 90275 hours). BMP (last 3 years, up to [...] DDS. Melquiades Stewart DDS 03/02/24 9:[facility] History and physical note* Melquiades Christie [...] Topete DDS at 03/02/2024 11:48 AM EST [id number] NoteSurgical Attestation: I have reviewed the patient's History and Physical Examination. I have personally seen and evaluated the patient, repeating cabrera portions. There is no significant interval change. Surgery is still indicated. Yes Consent reviewed and signed by patient/family: Yes Operative site verified and marked: site verified but not marked as not anatomically possible Melquiades Stewart DDS 03/02/2024 9:38 AMThe [facility] [id number] Progress note* Blood Attestation - Milton Luna MD - 03/02/2024 9:16 AM EST Blood Attestation: ATTESTATION OF INFORMED CONSENT FOR BLOOD: The transfusion of blood and/or blood components were discussed with the patient and/or legal b2b outside sales representative. The risks, benefits and alternatives were reviewed. Questions regarding blood transfusions were answered. The patient /or the patient s legal b2b outside sales representative agree with the plan for transfusion of blood and/or blood components. [facility] Work Phone: 1(241) 197-340111-11-2024 History of Present illness Narrative* Elmer Mcpherson DDS - 03/02/2024 8:12 AM EST ----- Saturday, March 02, 2024 at 11:38:59 AM ----- ----- Provider: [id number] - Elmer Rebolledo DDS -- Clinic: [facility] [...] Note Type: OP Note Status: Cosign Needed Insurance Healthcare Representative: Paula Contreras DDS (Resident) Cosign Required: Yes Expand All Collapse All Surgical Case Number Data Unavailable Operating Room Data Unavailable Preoperative Diagnosis(es): Caries [k02.9] Surgeon: Dr. Topete Imaging Assistant Surgeon: Melquiades Arias DDS - Paula Contreras [...] the treatment plan included the following: Composite uatsdin on tooth#7 surface ML. Amalgam restorations on [...] ----- Provider: Pradip Rebolledo DDS -- Clinic: [facility] ----- documented in this [id number] Surgery Surgical operation note* OP Note - Paula oCntreras DDS - 03/01/2024 6:14 PM EST Surgical Case Number Data Unavailable Operating Room Data Unavailable Preoperative Diagnosis(es): Caries [k02.9] Surgeon: Dr. Topete Imaging Assistant Surgeon: Melquiades Arias DDS - Paula Contreras [...] the treatment plan included the following: Composite uatsdin on tooth#7 surface ML. Amalgam restorations on [...] DDS at 03/02/2024 11:56 AM EST [id number] NoteSurgical Attestation: I have reviewed the patient's History and Physical Examination. I have personally seen and evaluated the patient, repeating cabrera portions. There is no significant interval change. Surgery is still indicated. Yes Consent reviewed and signed by patient/family: Yes Operative site verified and marked: Verified but not marked Paula Contreras DDS 03/01/2024 6:10 [facility] [id number] Telephone encounter Note* Telephone Encounter - Ashleigh Kaplan RN - 02/24/2024 9:07 AM EST Anesthesia consent obtained and scanned into PSYCHIATRIC. Scheduled for surgery 03/02/2024. [id number] Miscellaneous Notes* Telephone Encounter - Ashleigh Kaplan RN - 02/24/2024 9:07 AM EST Anesthesia consent obtained and scanned into PSYCHIATRIC. Scheduled for surgery 03/02/2024. documented in this [id number] Telephone encounter Note* Telephone Encounter - Ashleigh Kaplan RN - 02/21/2024 12:22 PM EDT Anesthesia consent obtained and scanned into PSYCHIATRIC. Scheduled for surgery 03/02/2024. [id number] Miscellaneous Notes* Telephone Encounter - Ashleigh Kaplan RN - 02/21/2024 12:22 PM EDT Anesthesia consent obtained and scanned into PSYCHIATRIC. Scheduled for surgery 03/02/2024. documented in this [id number] Instructions* Discharge Instructions* Kelly Cabello RN - [...] otherwise contacted. ? [facility] one business day prior to surgery [...] questions. Contact the Pre-Admission Testing department at [phone] or your surgeon's office with any questions [...] a car, cab, shared ride service, or Moogi. You will not be allowed to drive yourself home or travel home alone. Your surgery may be cancelled if you do not have a ride. A responsible adult must stay with you after surgery. Please call [facility] Social Work if you need transportation assistance or have concerns about going home [phone]. ? PLEASE BE ON TIME. A late arrival may result in the cancellation/ delay of your surgery. Thank you for choosing [facility]; it is our pleasure to care for you documented in this [id number] Evaluation note* PAT Call History - Kelly Cabello RN - 02/19/2024 11:55 AM EDT Telephone History Ponce Esteves, [id number] 02/19/2024 Patient was identified by name and date of via Ivon, caregiver. Needs: Physical, Neck Circumference, BHCG, and ED on DOS. Note: OSH records/labs scanned to media consultant. If the patient becomes ill prior to procedure or surgery, they are to call their provider or surgeon's office directly. 29 year old 136.6 lbs 5' 4 Date of Surgery: 03/02 Surgeon: Yoselyn Type of Surgery: DENTAL RESTORATIONS HISTORY OF PRESENT ILLNESS: telephone history for the upcoming surgery at [facility], [address] [address] [place], enter through the [facility] doors. STOP-BANG Row Name 02/19/24 1154 History [...] (+) teeth problems missing Endo (+) hypothyroidism top cutter - negative ROS Neuro/Psych (+) bipolar disorder, seizures, intellectual disability Cardiovascular - negative ROS GI/Hepatic/Renal (+) GERD Heme/Other - negative ROS PAST SURGICAL HISTORY: Past Surgical History: Procedure Laterality Date EUA, ORAL 09/15/2014 Procedure: EUA, ORAL; Surgeon: Bradley Goodwin DDS; Location: PERIOPERATIVE SERVICES; Service: Oral EXTRACTION, TOOTH Bilateral 09/15/2014 Procedure: Stay[place] teeth; Surgeon: Bradley Goodwin DDS; Location: PERIOPERATIVE [...] Take by mouth. Fluticasone Propionate (FLONASE NASAL) Rogers into each nostril. Selenium (SELENIMIN ORAL) Take [...] otherwise contacted. ? Expect a call from [facility] one business day prior to surgery for [...] your Preparing for Your Surgery/Procedure booklet or [email or web address] if you have questions. Contact the Pre-Admission Testing department at [phone] or your surgeon's office with any questions [...] stay with you after surgery. Please call [facility] [employer] Work if you need transportation assistance or have concerns about going home [phone]. ? PLEASE BE ON TIME. A late arrival may result in the cancellation/ delay of your surgery. Thank you for choosing [facility]; it is our pleasure to care for you Kelly Cabello RN Time Spent Performing this Telephone History: 48 with follow-up [facility]: [id number] Miscellaneous Notes* PAT Call History - Kelly Cabello RN - 02/19/2024 11:55 AM EDT Telephone History Ponce Esteves, [id number] 02/19/2024 Patient was identified by name and [...] telephone history for the upcoming surgery at [facility], [address], [place], enter through the [facility] doors. STOP-BANG Row Name 02/19/24 9312 History of sleep apnea? Yes NO PSG [...] (+) teeth problems missing Endo (+) hypothyroidism top cutter - negative ROS Neuro/Psych (+) bipolar disorder, seizures, intellectual disability Cardiovascular - negative ROS GI/Hepatic/Renal (+) GERD Heme/Other - negative ROS PAST SURGICAL HISTORY: Past Surgical History: Procedure Laterality Date EUA, ORAL 09/15/2014 Procedure: EUA, ORAL; Surgeon: Bradley Goodwin DDS; Location: PERIOPERATIVE SERVICES; Service: Oral EXTRACTION, TOOTH Bilateral 09/15/2014 Procedure: Stay[place] teeth; Surgeon: Bradley Goodwin DDS; Location: PERIOPERATIVE [...] by mouth at bedtime. norethindrone-ethinyl estradiol (Nortrel , 21,) 1-35 MG-MCG tablet [...] Take by mouth. Fluticasone Propionate (FLONASE NASAL) Rogers into each nostril. Selenium (SELENIMIN ORAL) Take [...] otherwise contacted. ? Expect a call from [facility] one business day prior to surgery for [...] your Preparing for Your Surgery/Procedure booklet or [email or web address] if you have questions. Contact the Pre-Admission Testing department at [phone] or your surgeon's office with any questions [...] stay with you after surgery. Please call [employer] if you need transportation assistance or have concerns about going home [phone]. ? PLEASE BE ON TIME. A late arrival may result in the cancellation/ delay of your surgery. Thank you for choosing [facility]; it is our pleasure to care for you Kelly Cabello RN Time Spent Performing this Telephone History: 48 with follow-up [facility]: documented in this [id number] Miscellaneous Notes* PAT Call History - Kelly Cabello RN - 02/19/2024 11:55 AM EDT Telephone History Ponce Esteves [id number] 02/19/2024 Patient was identified by name and date of via Ivon, caregiver. Needs: Physical, Neck Circumference, BHCG, and ED on DOS. Note: OSH records/labs scanned to media consultant. If the patient becomes ill prior to procedure or surgery, they are to call their provider or surgeon's office directly. 29 year old 136.6 lbs 5' 4 Date of Surgery: 03/02 Surgeon: Yoselyn Type of Surgery: DENTAL RESTORATIONS HISTORY OF PRESENT ILLNESS: telephone history for the upcoming surgery at [facility], [address] [place], enter through the west entrance doors. STOP-BANG Row Name 02/19/24 4274 History of sleep apnea? Yes NO PSG [...] (+) teeth problems missing Endo (+) hypothyroidism top cutter - negative ROS Neuro/Psych (+) bipolar disorder, seizures, intellectual disability Cardiovascular - negative ROS GI/Hepatic/Renal (+) GERD Heme/Other - negative ROS PAST SURGICAL HISTORY: Past Surgical History: Procedure Laterality Date EUA, ORAL 09/15/2014 Procedure: EUA, ORAL; Surgeon: Bradley Goodwin DDS; Location: PERIOPERATIVE SERVICES; Service: Oral EXTRACTION, TOOTH Bilateral 09/15/2014 Procedure: Stay[place] teeth; Surgeon: Bradley Goodwin DDS; Location: PERIOPERATIVE [...] Take by mouth. Fluticasone Propionate (FLONASE NASAL) Rogers into each nostril. Selenium (SELENIMIN ORAL) Take [...] otherwise contacted. ? Expect a call from [facility] one business day prior to surgery for [...] your Preparing for Your Surgery/Procedure booklet or [email or web address] if you have questions. Contact the Pre-Admission Testing department at [phone] or your surgeon's office with any questions [...] stay with you after surgery. Please call [employer] if you need transportation assistance or have concerns about going home [phone]. ? PLEASE BE ON TIME. A late arrival may result in the cancellation/ delay of your surgery. Thank you for choosing [facility]; it is our pleasure to care for you Kelly Cabello RN Time Spent Performing this Telephone History: 48 with follow-up [facility]: documented in this [id number] History and physical note* Melquiades Christie DDS - 03/02/2024 9:38 AM EST Images from the original note were not included. Surgical History and Physical [facility] Ambulatory Surgery [address] [id number] Name: Ponce Esteves : 1995 29 year old CSN: [id number] Attending: Elmer Topete DDS Date of Admission: [...] surgical history indicates: EXTRACTION, TOOTH (09/15/2014) Procedure: Stay[place] teeth; Surgeon: Bradley Goodwin DDS; Location: PERIOPERATIVE [...] or any previous visit (from the past 71696 hours). BMP (last 3 years, up to [...] 03/02/2024 11:48 AM EST documented in this [id number] Miscellaneous Notes* Telephone Encounter - Liliana Song - 04/30/2022 3:03 PM EST Bina from [facility] calling in. She wanted to know where the pt was at on the OR wait list. E-mail sent to Connie E-mail sent 04/30/22 documented in this [id number] Telephone encounter Note* Telephone Encounter - Liliana Song - 04/30/2022 3:03 PM EST Bina from [facility] calling in. She wanted to know where the pt was at on the OR wait list. E-mail sent to Connie E-mail sent 04/30/22 [id number] History of Present illness Narrative* Martha Coreas DMD - 03/13/2022 10:06 AM EST ----- Sunday, March 13, 2022 at 11:58:40 AM ----- ----- Provider: [id number] Misael Coreas DMD -- Clinic: [place] ----- OR EVALUATION Patient presents for evaluation [...] available. Legal Guardian: Toshia Esteves Phone #: [phone] NOTE: Patient had a hard time leaning her head back, but allowed me to look. Patient not indicatingshe is in any pain. #8 is very discolored - most likely will need RCT treatment. Gingiva very red and irritated. Caregiver did not know who patient's guardian was or contact information, looked it up in [facility]. Next Visit: OR documented in [facility]Met[facility]HealthEvaluation [facility]* Diagnosis Caries- Primary Unspecified dental caries [facility]* Diagnosis Caries- Primary Unspecified dental caries Caries- Primary Unspecified dental caries [facility]* Diagnosis Seizure disorder (CMS/HCC)- Primary Unspecified epilepsy without mention of intractable epilepsy Mental deficiency ([facility]) Unspecified mental retardation Autism ([facility]) Autistic disorder, current or active state [...] epilepsy without mention of intractable epilepsy Autism ([facility]/HCC) Autistic disorder, current or active state Developmental [...] malaise and fatigue documented in this encounter [facility]* Diagnosis Onychomycosis- Primary Dermatophytosis of nail Pain in right toe(s) Pain in left toe(s) documented in this encounter [facility] HealthcareEvaluation note* Diagnosis Recurrent sinusitis- Primary Unspecified sinusitis (chronic) Recurrent sinus infections Unspecified sinusitis (chronic) Nasal congestion Other diseases of nasal cavity and sinuses documented in this [facility] noteNo assessment information available [facility] Work Phone: Evaluation note* Diagnosis Onychomycosis- Primary Dermatophytosis of nail Pain in right toe(s) Pain in left toe(s) documented in this encounter [facility] HealthcareEvaluation note* Diagnosis Other allergy, initial encounter- Primary Chronic rhinitis documented in this encounter [facility] SystemInstructionsNot on filedocumented in this encounter [facility] SystemReason for referral (narrative)No reason for referral information availableProm[facility] Work Phone: Reulhv for visit Narrative* Auth/Cert (Routine) SpecialtyDiagnoses / ProceduresReferred By ContactReferred To Contact Ambulatory Surgery Diagnoses Caries Caries [K02.9] Procedures INTERDENTAL FIXATION. UNLISTED PROCEDURE, DENTOALVEOLAR STRUCTURES DENTAL RESTORATIONS Elmer Topete, DDS [address] [place] [address] Phone: tel: fax: [facility] [employer] [facility] [place] [address] Phone: tel: Referral IDStatusReasonStart DateExpiration DateVisits RequestedVisits [id number] [facility] Summary Purpose Family History No Family History Records FoundNo Family History Records FoundNo Family History Records FoundNo Family History Records FoundNo Family History Records FoundNo Family History Records FoundNo Family History Records FoundNo Family History Records Found Advance Directives No Advanced Directives Records FoundDocuments on File TypeDate RecordedPatient RepresentativeExplanationLiving Will5/ 4:36 PM LEGAL GURADIANSHIP/AGREEMENT FOR [facility] Advance Directive Response Recorded Date/ Time Advance Directives No December 12:12pm TypeDate RecordedPatient RepresentativeExplanationLiving 09/03/2017 4:36 PM LEGAL GURADIANSHIP/AGREEMENT FOR [facility] Reason for Referral SpecialtyDiagnoses / ProceduresReferred By ContactReferred To Contact Anesthesiology Diagnoses Caries Elmer Topete, DDS [address] [place] [address] [facility] PRE ADMISSION TESTING [address] [place] [address] Referral IDStatusReasonStart DateExpiration DateVisits RequestedVisits [id number] Scheduling Instructions Your surgical team will reach out to you to schedule a pre-admission testing appointment. QuestionAnswer Reason for consult? Recommended PAT Risk Score [...] and content) DATE CREATED AUTHOR 10/16/2017 [facility] DATE CREATED AUTHOR AUTHOR'S ORGANIZ ATION 09/02/2022 [facility] DATE CREATED AUTHOR AUTHOR'S ORGANIZ ATION 01/11/2023 [facility] DATE CREATED AUTHOR AUTHOR'S ORGANIZ ATION 03/10/2024 [facility] DATE CREATED AUTHOR AUTHOR'S ORGANIZ ATION 12/26/2024 [facility] DATE CREATED AUTHOR AUTHOR'S ORGANIZ ATION 01/22/2025 [facility] DATE CREATED AUTHOR AUTHOR'S ORGANIZ ATION 01/25/2025 [facility] DATE CREATED AUTHOR AUTHOR'S ORGANIZ ATION 02/24/2025 [facility] EPIC Reason for Visit (unrecogniz ed section and content) ReasonOnset MlcpSrmavpquKgfyek39/09/2023ReasonCommentsSeizuresReasonOnset Date BbfawficONN99/01/2024nesthesia consent obtainedReasonOnset DateCommentsPAT 02/24/2024nesthesia consent obtainedReasonOnset DateCommentsPre-surgical Oprhipqxzc98/06/2024D adult dental restorations 03/02 under [place] at [facility]. PAT completed - anesthesia consent. ZOHRA RN spoke to Mary (nurse), confirmed NPO, [facility] address, and 0900 arrival timeReasonCommentsToenail ProblemRT grt nail fungalReasonCommentsToenail CareNon DM nail careReasonCommentsSinus ProblemNasal CongestionSpecialtyDiagnoses / ProceduresReferred By ContactReferred To Contact Otolaryngology Diagnoses Recurrent sinus infections Nasal congestion Ref Prov, [place] [address] [facility] [address] [place] [address] Phone: tel: fax: Referral IDStatusReasonStart DateExpiration DateVisits RequestedVisits [id number] Review Specialty Services Required [id number] PatientRed puffy eyes, runny noses, more likely year roundSpecialtyDiagnoses / ProceduresReferred By ContactReferred To ContactAllergy and Immunology Diagnoses Recurrent sinus infections Nasal congestion Philip Monroy, PAMisaelC [address] [facility] [address] [place] [address] Phone: tel: fax: [facility] Department of [facility] [address] [place] [address] Phone: tel: fax: Referral IDStatusReasonStart DateExpiration DateVisits RequestedVisits [id number] Review Care Teams (unrecognized sec tion and content) Team MemberRelationshipSpecialtyStart DateEnd Date Unallocated, Noms MD Jennie [facility] [place] [address] PCP - GeneralFamily Medicine07/09/23 Kris Mcguire MD [address] [place] [address] Referring PhysicianNeurology07/09/23Team MemberRelationshipSpecialtyStart DateEnd Date Unallocated, Fayes MD Jennie [address] [place] [address] PCP - GeneralFamily Medicine07/09/23 Kris Mcguire MD [address] [place] [address] Referring PhysicianNeurology07/09/23Team MemberRelationshipSpecialtyStart DateEnd Date Nathan Iyer MD [address] [place], [place] [id number] PCP - GeneralFamily Fjldrwpi54/19/24 Kris Mcguire MD [address] [place] [address] Referring PhysicianNeurology07/09/23Team MemberRelationshipSpecialtyStart DateEnd Date Nathan Iyer MD [address] [place] [address] PCP - GeneralFamily Plzhdnhj19/19/24 Kris Mcguire MD [address] [place] [address] Referring PhysicianNeurology07/09/23Team MemberRelationshipSpecialtyStart DateEnd Date Nathan Iyer MD [address] [place] [address] PCP - [facility]03/10/24 Kris Mcguire MD [address] [place] [address] Referring PhysicianNeurology07/09/23Team MemberRelationshipSpecialtyStart DateEnd Date Nathan Iyer MD [address] [place] [address] [facility] - [facility] Teqprtta39/19/24 Kris Mcguire MD [address] [place] [address] Referring PhysicianNeurology07/09/23Team MemberRelationshipSpecialtyStart DateEnd Date Nathan Iyer MD [address] [place] [address] [facility] - [facility] Asuiuzxm28/19/24 Kris Mcguire MD [address] [place] [address] Referring PhysicianNeurology07/09/23Team MemberRelationshipSpecialtyStart DateEnd Nathan Iyer MD [address] [place] [address] PCP - GeneralFamily Gctbjzgh06/19/24 Kris Mcguire MD Referring PhysicianNeurology07/09/23Team MemberRelationshipSpecialtyStart DateEnd Nathan Iyer MD [facility] [address] [place] [address] PCP - GeneralFamily Prsgszlm77/19/24 Kris Mcguire MD Referring PhysicianNeurology07/09/23Team MemberRelationshipSpecialtyStart End Nathan Iyer MD [facility] [address] [place] [address] PCP - GeneralFamily Xzxeejqc00/19/24 Kris Mcguire MD Referring PhysicianNeurology07/09/23Team MemberRelationshipSpecialtyStart End Nathan Iyer MD [address] [place] [address] PCP - GeneralFamily Cxvxqgxy83/19/24 Kris Mcguire MD Referring PhysicianNeurology07/09/23Team MemberRelationshipSpecialtyStart DateEnd Date Nathan Iyer DO [facility] [place] [address] [facility] - [facility]08/23/17 Team Status: Active Member Role Status Dates Nathan Iyer DO Primary Care Provider Active Team Status: Inactive Member Role Status Dates Nathan Iyer DO Primary Care Provider Active Start: December 28, 2024 End: December 28, 2024Kenisha Duvall APRN-FNP-CAttending ProviderActive Start: December 28, 2024 End: December 28, 2024 Team Status: Inactive Member Role Status Dates Nathan Iyer DO Primary Care Provider Active Start: January 08, 2025 End: January 08, 2025Kenisha Duvall APRN-FNP-CAttending ProviderActive Start: January 08, 2025 End: January 08, 2025 Team Status: Inactive Member Role Status Dates Nathan Iyer DO Primary Care Provider Active Start: January 27, 2025 End: January 27james Feliciano DOAttending ProviderActiveStart: January 27, 2025 End: January 27, 2025Team MemberRelationshipSpecialtyStart DateEnd Date Nathan Iyer MD [address] [place] [address] PCP - [facility] Xtwbanwg62/19/24 Kris Mcguire MD Referring PhysicianNeurology07/09/23Team MemberRelationshipSpecialtyStart DateEnd Date Nathan Iyer MD [address] [place] [address] PCP - GeneralFamily Kkvpebcs89/19/24 Kris Mcguire MD Referring PhysicianNeurology07/09/23Team MemberRelationshipSpecialtyStart DateEnd Nathan Iyer DO [address] [id number] PCP - GeneralFamily Medicine08/23/17 PRN Active and Recently Administ ered Medications (unrecognized section and content) Medication Order bacitracin 500 UNIT/GM ointment (CANCELED) PRN, Starting on Sat03/02/24 at 1037, Until Sat03/02/24 at 1156, Intra-op * 1037 (Given - Provider: Melquiades Stewart DDS - Comment: Applied to lips at [...] BE BASED ON THE PRIMARY CLINICAL RECORDS. [facility] [employer] [facility]. provides no warranty or guarantee of the accuracy or completeness of information in this document.
== END 2025-02-25 08:50 | disposition home or self-care (01) ==
LOC: US 08:49
PROVIDERS: PCP Family Medicine; Visit Provider Internal Medicine Endocrinology, Diabetes & Metabolism
DX: E03.9 Hypothyroidism, unspecified (principal); Z79.899 Other long term (current) drug therapy; E04.2 Nontoxic multinodular goiter
CPT/HCPCS: 76536

== ENCOUNTER 2025-03-09 06:46 | Outpatient (REF) | payer MEDICARE, MEDICAID, SELFPAY ==
--- OUTSIDE RECORDS SUMMARY | 2025-02-26 09:46 | XMS_ITS | Encounter Summary ---
Author Organization [facility]aki L[facility] Address [address], [address] [place] [address] Care Team Providers Care Station Cleaning Porter Name Role Phone Nathan Iyer MD Primary Care Provider + [phone] Reason for Referral * Imaging (Routine) - Pending ReviewSpecialtyDiagnoses / ProceduresReferred By ContactReferred To ContactRadiology Diagnoses Unsteady gait Seizure disorder (HCC) Procedures MRI CERVICAL SPINE WO CONTRAST Ramos Feliciano DO [address] [place] [address] Phone: tel: fax: Referral IDStatusReasonStalivia DateExpiration DateVisits RequestedVisits [id number] Reason for Visit * Imaging (Routine) - Pending ReviewSpecialtyDiagnoses / ProceduresReferred By ContactReferred To ContactRadiology Diagnoses Unsteady gait Seizure disorder (HCC) Procedures MRI CERVICAL SPINE WO CONTRAST Ramos Feliciano DO [address] [place] [address] Phone: tel: fax: Referral IDStatusReasonStart DateExpiration DateVisits RequestedVisits [id number] [id number] Encounter Details DateTypeDepartmentCare Team (Latest Contact Info)Tzthdyomnrx58/07/2025 9:46 AM EST - 02/28/2025 11:59 PM ESTHospital Encounter [facility] [address] [place] [address] Unsteady gait; Seizure disorder (HCC) Discharge Disposition: Home or Self Care Social History Tobacco UseTypesPacks/DayYears UsedDateSmoking Tobacco: Never Assessed Interpersonal Safety Domain Source: IP Abuse ScreeningAnswerDate Recorded Physical pqkucTcxurz50/07/2025Verbal axlzvLcwrbs29/07/2025Emotional abuseDenies 02/26/2025Financial dfyofHlhxgq52/07/2025Sexual pmmrxQixnka18/07/2025 CommentsUnknownSex and Gender InformationValueDate RecordedSex Assigned at Not on fileLegal WcjKnzuet38/22/2025 9:46 AM EDTGender IdentityNot on fileSexual OrientationNot on filedocumented as of this encounter Medications at Time of Discharge MedicationSigDispense QuantityRefillsLast FilledStart DateEnd Date azelastine (OPTIVAR) 0.05 % ophthalmic solution Place 1 drop into both eyes 2 times daily azelastine (ASTELIN) 0.1 % nasal spray 2 sprays by Nasal route 2 times daily Use in each nostril as directed busPIRone (BUSPAR) 30 MG tablet Take 30 mg by mouth 3 times daily 8am,4pm,8pm polyethylene glycol (GLYCOLAX) 17 g packet Take 1 packet by mouth daily 8am cloNIDine (CATAPRES) 0.1 MG tablet Take 1 tablet by mouth 2 times daily 8am, 4pm cloNIDine (CATAPRES) 0.2 MG tablet Take 1 tablet by mouth 3 times daily 8am,4pm,8pm cyproheptadine (PERIACTIN) 4 MG tablet Take 1 tablet by mouth daily 8pm divalproex (DEPAKOTE) [address] tablet Take 1 tablet by mouth 3 times daily 8am, 4pm, HS divalproex (DEPAKOTE) [address] tablet Take 1 tablet by mouth 3 times daily 8 tabs 8am, 4tabs 4pm,8 tabs HS famotidine (PEPCID) 40 MG tablet Take 1 tablet by mouth every morning Fluticasone Furoate 50 MCG/ACT AEPB Inhale 2 sprays into the lungs every morning guanFACINE HCl 2 MG TABS Take 2 mg by mouth in the morning and 2 mg in the evening. lamoTRIgine (LAMICTAL) 100 MG tablet Take 1 tablet by mouth at bedtime lamoTRIgine (LAMICTAL) 150 MG tablet Take 1 tablet by mouth every morning polyethyl glycol-propyl glycol 0.4-0.3 % (SYSTANE) 0.4-0.3 % ophthalmic solution 1 drop in the morning and 1 drop in the evening. Affected eye. melatonin 3 MG TABS tablet Take 1 tablet by mouth at bedtime mometasone (ASMANEX) 50 MCG/ACT AERO inhaler Inhale 2 puffs into the lungs every morning norethindrone-ethinyl estradiol (NORTREL , 21,) 1-35 MG-MCG per tablet Take 1 tablet by mouth every morning paliperidone (INVEGA) 3 MG extended release tablet Take 1 tablet by mouth 3 times daily 8am, 4pm, 8pm QUEtiapine (SEROQUEL) 400 MG tablet Take 1 tablet by mouth at bedtime levothyroxine (SYNTHROID) 200 MCG tablet Take 1 tablet by mouth Daily 4pm levothyroxine (SYNTHROID) 25 MCG tablet Take 1 tablet by mouth Daily 4pm acetaminophen (TYLENOL) 325 MG tablet Take 2 tablets by mouth every 4 hours as needed for Pain (temp) bisacodyl (DULCOLAX) [address] 1 suppository rectally daily as needed for Constipation guaiFENesin 400 MG tablet Take 1 tablet by mouth 2 times daily as needed for Cough ibuprofen (ADVIL;MOTRIN) 600 MG tablet Take 1 tablet by mouth every 6 hours as needed for Pain mometasone (ELOCON) 0.1 % ointment Apply topically 2 times daily as needed M-F mupirocin (BACTROBAN) 2 % ointment Apply topically 2 times daily as needed Apply topically 3 times daily. ondansetron (ZOFRAN) 4 MG tablet Take 1 tablet by mouth every 6 hours as needed for Nausea or Vomiting guaiFENesin (ROBITUSSIN) 100 MG/5ML liquid Take 10 mLs by mouth every 4 hours as needed for Cough senna (SENOKOT) 8.6 MG tablet Take 2 tablets by mouth 2 times daily as needed for Constipation Hydrocerin (EUCERIN) CREA cream Apply topically every morning Upper arms Benzocaine (SOLARCAINE EX) Apply topically every 4 hours as needed (sunburn) Vitamins A & D (VITAMIN A & D) ointment Apply topically 2 times daily as needed for Dry Skin Apply topically as needed skin rednessdocumented as of this encounter Plan of Treatment Not on file documented as of this encounter Procedures Procedure NamePriorityDate/TimeAssociated DiagnosisCommentsMRI CERVICAL SPINE WO VNVTALESEmtxpka26/07/2025 12:30 PM EST Unsteady gait Seizure disorder (HCC) documented in this encounter Results * MRI CERVICAL SPINE WO CONTRAST (02/26/2025 12:30 PM EST)Anatomical Region LateralityModalityC-spine, T-spine, NeckMagnetic ResonanceSpecimen (Source) Anatomical Location / LateralityCollection Method / VolumeCollection Time Received Time02/28/2025 2:14 PM EST Impressions 02/28/2025 2:20 PM EST Cerebral volume loss, advanced for patient's stated age. Severe degenerative thecal sac narrowing and neural foraminal stenosis at the C5-C6 disc level. Narrative 02/28/2025 2:20 PM EST EXAMINATION: MRI OF THE BRAIN WITHOUT AND WITH CONTRAST; MRI OF THE CERVICAL SPINE WITHOUT CONTRAST ??02/26/2025 11:07 am TECHNIQUE: Multiplanar multisequence MRI of the head/brain was performed without and with the administration of intravenous contrast.; Multiplanar multisequence MRI of the cervical spine was performed without the administration of intravenous contrast. COMPARISON: None. HISTORY: ORDERING SYSTEM PROVIDED HISTORY: Unsteady gait TECHNOLOGIST PROVIDED HISTORY: STAT Creatinine as needed:->No What is the sedation requirement?->Anesthesia Reason for Exam: Unsteady gait, Seizure disorder (HCC); ORDERING SYSTEM PROVIDED HISTORY: Unsteady gait TECHNOLOGIST PROVIDED HISTORY: What is the sedation requirement?->Anesthesia Reason for Exam: Unsteady gait, Seizure disorder (HCC) FINDINGS: MRI brain: INTRACRANIAL STRUCTURES/VENTRICLES: ??There is no acute infarct. There is volume loss. ??No mass, shift, or bleed is identified. ??The medial temporal lobes are symmetric in size and signal intensity. ??No abnormal enhancement is detected after contrast administration. ??Normal expected signal voids are seen within the vessels at the base of skull. ORBITS: The visualized portion of the orbits demonstrate no acute abnormality. SINUSES: The visualized paranasal sinuses and mastoid air cells demonstrate no acute abnormality. BONES/SOFT TISSUES: The bone marrow signal intensity appears normal. The soft tissues demonstrate no acute abnormality. 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 ??Adfq-fi-lrryqnxr degenerative disc disease is noted at C5-C6. ??No acute fracture or traumatic subluxation is identified. The cervical cord is normal in size and signal intensity. At C5-C6 there is a disc osteophyte complex, ligamentum flavum thickening, and facet hypertrophy resulting in severe narrowing of the thecal sac and both neural foramen. Procedure Note Mario Blankenship MD - 02/28/2025 EXAMINATION: MRI OF THE BRAIN WITHOUT AND WITH CONTRAST; MRI OF THE CERVICAL SPINEWITHOUT CONTRAST 02/26/2025 11:07 am TECHNIQUE: Multiplanar multisequence MRI of the head/brain was performed withoutand with the administration of intravenous contrast.; Multiplanarmultisequence MRI of the cervical spine was performed without the administration of intravenous contrast. COMPARISON: None. HISTORY: ORDERING SYSTEM PROVIDED HISTORY: Unsteady gait TECHNOLOGIST PROVIDED HISTORY: STAT Creatinine as needed:->No What is the sedation requirement?->Anesthesia Reason for Exam: Unsteady gait, Seizure disorder (HCC); ORDERING SYSTEM PROVIDED HISTORY: Unsteady gait TECHNOLOGIST PROVIDED HISTORY: What is the sedation requirement?->Anesthesia Reason for Exam: Unsteady gait, Seizure disorder (HCC) FINDINGS: MRI brain: INTRACRANIAL STRUCTURES/VENTRICLES: There is no acute infarct. There is volume loss. No mass, shift, or bleed is identified. The medialtemporal lobes are symmetric in size and signal intensity. No abnormal enhancementis detected after contrast administration. Normal expected signal voidsare seen within the vessels at the base of skull. ORBITS: The visualized portion of the orbits demonstrate no acuteabnormality. SINUSES: The visualized paranasal sinuses and mastoid air cellsdemonstrate no acute abnormality. BONES/SOFT TISSUES: The bone marrow signal intensity appears normal. Thesoft tissues demonstrate no acute abnormality. 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 Xgeq-pb-tvytwnrb degenerative discdisease is noted at C5-C6. No acute fracture or traumatic subluxation isidentified. The cervical cord is normal in size and signal intensity. At C5-C6 there is a disc osteophyte complex, ligamentum flavumthickening, and facet hypertrophy resulting in severe narrowing of the thecal sacand both neural foramen. IMPRESSION: Cerebral volume loss, advanced for patient's stated age. Severe degenerative thecal sac narrowing and neural foraminal stenosis atthe C5-C6 disc level. Authorizing ProviderResult TypeResult StatusChristopher Bindu Feliciano [facility] MRI ORDERABLESFinal Result documented in this encounter Visit Diagnoses Diagnosis Unsteady gait Abnormality of gait Seizure disorder (HCC) Unspecified epilepsy without mention of intractable epilepsy documented in this encounter Care Teams Team MemberRelationshipSpecialtyStart DateEnd Date Nathan Iyer MD [address] [place] [address] PCP - GeneralFamily Mcoiydag74/7/25documented as of this encounter
--- OUTSIDE RECORDS SUMMARY | 2025-02-26 09:46 | XMS_ITS | Encounter Summary ---
Author Organization [facility] Address [address], [address] [place] [address] Care Team Providers Care Audio Visual Specialist Name Role Phone Nathan Iyer MD Primary Care Provider + [phone] Reason for Referral * Imaging (Routine) - Pending ReviewSpecialtyDiagnoses / ProceduresReferred By ContactReferred To ContactRadiology Diagnoses Unsteady gait Seizure disorder (HCC) Procedures MRI BRAIN W WO CONTRAST Ramos Feliciano DO [address] [place] [address] Phone: tel: fax: Referral IDStatusReasonStalivia DateExpiration DateVisits RequestedVisits [id number] Reason for Visit * Imaging (Routine) - Pending ReviewSpecialtyDiagnoses / ProceduresReferred By ContactReferred To ContactRadiology Diagnoses Unsteady gait Seizure disorder (HCC) Procedures MRI BRAIN W WO CONTRAST Ramos Feliciano DO [address] [place], [place] [address] Phone: tel: fax: Referral IDStatusReasonStart DateExpiration DateVisits RequestedVisits [id number] Encounter Details DateTypeDepartmentCare Team (Latest Contact Info)Dzfxklwynxw39/07/2025 9:46 AM EST - 02/28/2025 11:59 PM ESTHospital Encounter [facility] [address] [place] [address] Unsteady gait; Seizure disorder (HCC) Discharge Disposition: Home or Self Care Social History Tobacco UseTypesPacks/DayYears UsedDateSmoking Tobacco: Never Assessed Interpersonal Safety Domain Source: IP Abuse ScreeningAnswerDate Recorded Physical djuzcGyzwgf66/07/2025Verbal fpwxyNvrodc72/07/2025Emotional abuseDenies 02/26/2025Financial ksjweXhlswe36/07/2025Sexual lngvdHfebrr20/07/2025 CommentsUnknownSex and Gender InformationValueDate RecordedSex Assigned at Not on fileLegal ZzdAeezwz05/22/2025 9:46 AM EDTGender IdentityNot on fileSexual OrientationNot on filedocumented as of this encounter Last Filed Vital Signs Vital SignReadingTime TakenCommentsBlood Amsrrxgs336/7002/26/2025 1:45 PM EST Oyttn350102/26/2025 1:45 PM LSOIekiqsqodxl09 ??C (96.8 ??F)02/26/2025 12:47 PM EST Respiratory Irzk090402/26/2025 1:45 PM ESTOxygen Orgwyfenyb26%02/26/2025 1:45 PM ESTInhaled Oxygen Concentration--Weight--Height--Body Mass Index--documented in this encounter Discharge Instructions * Discharge Instructions* Korina Ríos RN - 02/26/2025 1:39 PM EST No alcoholic beverages, no driving or operating machinery, no making important decisions for 24 hours. You may have a normal diet but should eat lightly day of surgery. Drink plenty of fluids. Urinate within 8 hours after surgery, if unable to urinate call your doctor documented in this encounter Medications at Time of Discharge [...] the lungs every morning norethindrone-ethinyl estradiol (NORTREL 1, 21,) 1-35 MG-MCG per tablet Take 1 [...] of this encounter Procedures Procedure NamePriorityDate/TimeAssociated DiagnosisCommentsMRI BRAIN W WO KCFDEACENqdwqky45/07/2025 12:29 PM EST Unsteady gait Seizure disorder (HCC) HCG, SERUM, IKJHBMCACMASWCZ86/07/2025 10:39 AM EST documented in this encounter Results * MRI BRAIN W WO CONTRAST (02/26/2025 12:29 PM EST)Anatomical RegionLaterality ModalityHeadMagnetic ResonanceSpecimen (Source)Anatomical Location / LateralityCollection Method / VolumeCollection TimeReceived Time02/28/2025 2:14 PM EST Impressions 02/28/2025 2:20 [...] 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 ??Rcbm-ix-ekcrnooj degenerative disc disease is noted at C5-C6. 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 Eidz-zf-xzqrpbpv degenerative discdisease is noted at C5-C6. No [...] level. Authorizing ProviderResult TypeResult StatusChristopher Bindu Feliciano [facility] MRI ORDERABLESFinal Result * (ABNORMAL) HCG, SERUM, QUALITATIVE (02/26/2025 10:39 AM EST)ComponentValueRef RangeTest MethodAnalysis TimePerformed AtPathologist SignaturePreg, Serum POSITIVE(A)HJHXXHGV26/07/2025 10:39 AM ESTMERCY LABORATORIESComment: ? If HCG results do not concur with clinical observations, additional testing to confirm result is recommended. ??This test is not labeled for use as a tumor marker. ? [facility] has confirmed the use of plasma for this test. This has not been cleared or approved by the U.S. Food and Drug Administration. ??The FDA has determined that such clearance is not necessary. Specimen (Source)Anatomical Location / LateralityCollection Method / Volume Collection TimeReceived TimeBloodBLOOD SPECIMEN / Lqkkaky8202/26/2025 10:39 AM EST 02/26/2025 10:39 AM EST Narrative Authorizing ProviderResult TypeResult StatusChristelly Feliciano DOCHEMISTRY ORDERABLESFinal ResultPerforming OrganizationAddressCity/State/ZIP CodePhone Number [employer] [address] [place] [address], [facility] [phone] documented in this encounter Visit Diagnoses Diagnosis Unsteady gait Abnormality of gait Seizure disorder (HCC) Unspecified epilepsy without mention of intractable epilepsy documented in this encounter Administered Medications Medication OrderMAR ActionAction DateDoseRateSite gadoteridol (PROHANCE) injection 13 mL 13 mL, IntraVENous, IMG ONCE PRN, 1 dose, Starting on Sat02/26/25 at 1229, Until Sat02/26/25 at 1230, Other Given02/26/2025 12:30 PM EST13 mLsdocumented in this encounter Care Teams Team MemberRelationshipSpecialtyStart DateEnd Nathan Iyer MD [address] [place] [id number] PCP - GeneralFamily Dngqsjfu57/7/25documented as of this encounter
--- OUTSIDE RECORDS SUMMARY | 2025-02-26 11:07 | XMS_ITS | Encounter Summary ---
Author Organization [facility] Address [address], [address] [place] [address] Care Team Providers Care Lumber Tailer Name Role Phone Nathan Iyer MD Primary Care Provider + [phone] Encounter Details DateTypeDepartmentCare Team (Latest Contact Info)Cqqkllqfhop44/07/2025 11:07 AM ESTAnesthesia Event [address] [place] [address] Sandy Luna Anesthesia Record Procedure NameResponsible AnesthesiologistAnesthesia Start TimeAnesthesia Stop TimeMRI CERVICAL SPINE WO CONTRAST Events No events on file. * Meds No medications on file. * Agents No agents on file. * Blood No blood administrations on file. Lines, Drains, and Airways No LDAs on file. documented in this encounter Social History Tobacco UseTypesPacks/DayYears UsedDateSmoking Tobacco: Never Assessed Interpersonal Safety Domain Source: IP Abuse ScreeningAnswerDate Recorded Physical sdcpqVigmdq04/07/2025Verbal kviwxCghtyb88/07/2025Emotional abuseDenies 02/26/2025Financial rntofLgeslp50/07/2025Sexual cpplfOtmqfj70/07/2025 CommentsUnknownSex and Gender InformationValueDate RecordedSex Assigned at Not on fileLegal PkhPgmrer79/22/2025 9:46 AM EDTGender IdentityNot on fileSexual OrientationNot on filedocumented as of this encounter Plan of Treatment Not on file documented as of this encounter Visit Diagnoses Not on filedocumented in this encounter Care Teams Team MemberRelationshipSpecialtyStart DateEnd Date Iyer, Nathan A, MD [address] [place] [address] PCP - GeneralFamily Nwztqnab59/7/25documented as of this encounter
--- OUTSIDE RECORDS SUMMARY | 2025-02-26 11:21 | XMS_ITS | Encounter Summary ---
Author Organization [facility] Address [address], [address] [place] [address] Care Team Providers Care Fitter Helper Name Role Phone Nathan Iyer MD Primary Care Provider + [phone] Encounter Details DateTypeDepartmentCare Team (Latest Contact Info)Soanrzmmkfo33/07/2025 11:21 AM ESTAnesthesia Event [facility] [address] [place], [place] [id number] Jose Lawrence MD [address], [address] [place], [place] [address] Marialuisa Correia, [place] [id number] [facility] [address] [place] [address] Anesthesia Record Procedure NameResponsible AnesthesiologistAnesthesia Start TimeAnesthesia Stop TimeMRI BRAIN W WO Jose Nelson MD02/26/25 [id number] 1251Date DqjvUovuuQlskcax67/07/09199174Ng StartLocation: {AN Start Location:[id number]} 1121An Start Caba1248Floqwuv2987Wk InductionThe patient was reevaluated immediately before anesthesia induction.1130An QIC8918Xclgueahzk Gozlr0094BJE Mazhlre1449ny stop bgmz5273Hooltec to RNVital signs are within acceptable limits and stable, SBAR handoff/transfer of care to RN. Patient Handoff Status: Level of Response: -- Oxygen device: -- Airway Status: -- BP: -- Pulse: -- SpO2: -- Re spirations: -- Temp: -- Temp Source: --1251An Stop* NameTotalpropofol injection 20 mL519.03 mglidocaine (PF) injection 1%50 mglactated ringers wfhaasxl496 mL * Agents Name O2 * Blood No blood administrations on file. TypeDetailsPlacementRemovalPeripheral IVPlacement date 02/26/25; Placement time 1040; Size 22 g; Orientation Posterior, Right; Location Hand; Local anesthetic None; Removal date 03/02/25; Removal time [id number] by Janeen Holbrook RN03/02/25 1241 by Discharge ProviderMirandaSage Memorial Hospitaliirskeqa92/07/25; 1130; Auscultation, Capnometry; Ventilated by mask (1); 1; Oral; LMA; 4; 02/26/25; 92461604/28/24 1130 by Marialuisa Correia APRN - CRNA02/26/25 1235 by Marialuisa Correia APRN - CRNAdocumented in this encounter Social History Tobacco UseTypesPacks/DayYears UsedDateSmoking Tobacco: Never Assessed Interpersonal Safety Domain Source: IP Abuse ScreeningAnswerDate Recorded Physical rrqnxMaacji61/07/2025Verbal mgcwqSrgavf03/07/2025Emotional abuseDenies 02/26/2025Financial yxvseKughtm53/07/2025Sexual vxjuhZtumev46/07/2025 CommentsUnknownSex and Gender InformationValueDate RecordedSex Assigned at Not on fileLegal IymLgxljo85/22/2025 9:46 AM EDTGender IdentityNot on fileSexual OrientationNot on filedocumented as of this encounter Plan of Treatment Not on file documented as of this encounter Visit Diagnoses Not on filedocumented in this encounter Administered Medications Medication OrderMAR ActionAction DateDoseRateSite lactated ringers infusion IntraVENous, ANES CONTINUOUS PRN, Starting on Sat02/26/25 at 1121, Intra-op New Bag02/26/2025 11:21 AM EST lidocaine PF 1 % injection IntraVENous, ANES ONCE PRN, Starting on Sat02/26/25 at 1127, Until Sat02/26/25 at 1251, Intra-op Given02/26/2025 11:27 AM EST50 mg propofol 10 mg/mL infusion IntraVENous, ANES ONCE PRN, Starting on Sat02/26/25 at 1127, Until Sat02/26/25 at 1251, Intra-op Rate/Dose Wileqx3502/26/2025 11:50 AM EST80 mcg/kg/min30.384 mL/hrNew Bag 02/26/2025 11:30 AM ZEU356 mcg/kg/min37.98 mL/eaCqqfq6902/26/2025 11:27 AM OLC224 mgdocumented in this encounter Care Teams Team MemberRelationshipSpecialtyStart DateEnd Date Nathan Iyer MD [address] [place] [address] PCP - GeneralFamily Keutnfti70/7/25documented as of this encounter
--- OUTSIDE RECORDS SUMMARY | 2025-03-07 09:17 | XMS_ITS | CCD ---
Author Organization [facility] Care Team Providers Care Audience Coordinator Name Role Phone PHYSICIAN, DEFAULT Unavailable Unavailable [...] NATHAN Craft Consulting Unavailable HAY ., DR BOLCK Consulting Unavailable HAY ., DR BLOCK Admitting [...] Unavailable Unavailable Primary Care Provider Unavailabl e Romeocattadeo OLSON, Noms Provider Primary Care Provi roselyn Kris Mcguire MD Unavailable Unallocated MD, Noms Provider Primary Care Jaspreet roselyn ELMER TOPETE Attending Unavailable PROVIDER, UNKNOWN Admitting Unavailable PROVIDER, UNKNOWN Admitting Unavailable PROVIDER, UNKNOWN Attending Unavailable ELMER TOPETE Admitting Unavailable ELMER TOPETE Attending Unavailable Iyer Nathan OLSON Primary Care Provider Maynor OLSON, Kris Unavailable Maynor OLSON, Kris Unavailable Iyer DONathan A Primary Care Provider PHILIP MONROY Attending Unavailable IYERNATHAN Referring Unavailable IYER, NATHAN Craft Primary Care Unavailable Iyer DO Nathan A Primary Care Provider Duvall SINGING WAITER OR WAITRESS-EMERGENCY MANAGEMENT CONSULTANT-C, Kenisha Mata Attending Provider Kenisha Duvall Attending Unavailable Iyer, Nathan Craft Primary Care Unavailable Duvall, Kenisha E Admitting Unavailable Duvall, Kenisha E Admitting Unavailable Duvall, Kenisha E Attending Unavailable Iyer, Nathan Craft Primary Care Unavailable Iyer, Nathan A Primary Care Unavailable Eduarda De Anda Admitting Unavailable Eduarda De Anda Attending Unavailable Дмитрий Feliciano DO Attending Provider Nathan Iyer MD Primary Care Provider [phone] EDUARDA DE ANDA Attending Unavailable DOLCE, LAI Valentine Attending Unavailable LOWEEDUARDA Attending Unavailable DOLCE, LAI Valentine Attending Unavailable DOLCE, LAI Valentine Attending Unavailable DOLCE, LAI Valentine Attending Unavailable DOLCE, LAI Valentine Attending Unavailable JERMANSHANNA Attending Unavailable PHILIP MONROY Referring Unavailable IYER, NATHAN Craft Primary Care Unavailable IYERNATHAN Referring Unavailable IYER, NATHAN Craft Primary Care Unavailable ДМИТРИЙ FELICIANO Referring Unavailab le IYER, NATHAN Craft Primary Care Unavailable IYER, NATHAN Craft Primary Care Unavailable ДМИТРИЙ FELICIANO Referring Unavailab le Iyer Nathan OLSON Primary Care Provider [phone] Allergies Allergy ClassificationReported Allergen(s)Allergy TypeDate of OnsetReaction(s) Facility (20 sources)Ethosuximide; Translations: [ETHOSUXIMIDE]Drug Gtlndbs50-17-6293Oytn [facility] (1 source)AllopurinolDrug Mdyazeh20-97-2572Uwr [facility] (1 source)EthosuximideDrug Rqllbtf67-78-1679Pkt [facility] (20 sources)linaclotide; Translations: [LINACLOTIDE]Drug Xeibvdo65-85-8901 Unknown ReactionNOWV [facility] (4 sources)EthosuximideDrug Suwyhty48-40-8896Zktm, [facility]chingC[facility] (4 sources)linaclotideDrug Nhogeoi39-51-2732Qlaypm And VomitingC[facility] (1 source)EthosuximideDrug Exgvsmn69-40-1114NiyzdmkicMer[facility] (1 source)linaclotideDrug Iekgdwi09-39-6480QbhzrkfknMercy [facility] Medications Current Medications MedicationDrug Class(es)DatesSig (Normalized)Sig (Original)acetaminophen 325 mg oral capsule (15 sources)Start: 82-81-0909yali 2 capsules by mouth every four to six hours as needed for painAcetaminophen 325 mg capsule Active 650 MG PO EVERY 4-6 HOURS as needed for fever or pain 2024 12:00am Complies with drug therapy take 2 tablets by mouth every four hours as needed for painacetaminophen (TYLENOL) 325 MG tablet Take 2 tablets by mouth every 4 hours as needed for Pain (temp) ActiveAcetaminophen (Tylenol) 325 MG CAPS Take by mouth. Active Acetaminophen / guaiFENesin (3 sources)Start: 15-60-3613isoc 1 tablet by mouth twice dailyAcetaminophen- Guaifenesin 325-200 mg tablet Active 1 TAB PO Twice daily December 28, 2024 12:00amComplies with drug therapyStart: 54-66-9118qybh 1 tablet by mouth twice dailyazelastine hydrochloride 0.5 mg/ml ophthalmic solution (7 sources)Histamine-1 Receptor AntagonistStart: 55-63-7946sncr 1 drop(s) into the eye(s) twice dailyazelastine (OPTIVAR) 0.05 % ophthalmic solution Administer 1 drop to both eyes 2 (two) times a day.6 mL 12 02/24/2025 ActiveStart: 70-53-1030zdxy 2 spray(s) nasal route in the morningazelastine (ASTELIN) 137 mcg (0.1 %) nasal spray Indications: Nasal congestion Administer 2 sprays into each nostril in the morning and 2 sprays before bedtime. Use in each nostril as directed. 30 mL5 12/24/2024 Activetake 1 drop(s) into the eye(s) twice daily azelastine (OPTIVAR) 0.05 % ophthalmic solution Place 1 drop into both eyes 2 times daily Activetake 2 spray(s) nasal route twice dailyazelastine (ASTELIN) 0.1 % nasal spray 2 sprays by Nasal route 2 times daily Use in each nostril as directed Activebacitracin 0.5 unt/mg topical ointment (2 sources)bacitracin 500 unit/gram ointment Apply 1 application topically 2 (two) times a day. ActiveBenzocaine (2 sources)Standardized Chemical AllergenBenzocaine (SOLARCAINE EX) Apply topically every 4 hours as needed (sunburn) Activebisacodyl 10 mg rectal suppository (7 sources)Stimulant LaxativeStart: 07-55-8744Nah[place]ocko (Dulcolax (Bisacodyl)) 10 mg suppository Active 10 MG MA Daily as needed for constipationSept2024 12:00am Complies with drug therapybusPIRone hydrochloride 30 mg oral tablet (20 sources)Start: 73-32-1170xxgz 1 tablet by mouth three times dailyBuspirone 30 mg tablet Active 30 MG PO Three times daily December 28, 2024 12:00am Complies with drug therapyStart: 57-92-7730xxzFCNyay (BUSPAR) 10 mg tablet 1 tablet (10 mg total) in the morning and 1 tablet (10 mg total) atnoon and 1 tablet (10 mg total) before bedtime. 12/19/2017 Activetake 1 tablet by mouth once dailybusPIRone (BUSPAR) 30 MG tablet Take 30 mg by mouth daily. Active chlorhexidine gluconate 1.2 mg/ml mouthwash (12 sources)Start: 50-82-3382crdx 15 mL by mouth twice dailychlorhexidine (PERIDEX) 0.12 % oral solution Take 15 mL by mouth 2 times daily. 1 Bottle 0 09/15/2014 Ifqhul16 hr cloNIDine hydrochloride 0.1 mg extended release oral tablet (20 sources)Central alpha-2 Adrenergic AgonistStart: 87-95-0459jurx 1 tablet by mouth three times dailyClonidine Hcl 0.2 mg tablet Active 0.2 MG PO Three times daily December 28, 2024 12:00am Complieswith drug therapyStart: 54-84-1602lgpu 1 tablet by mouth twice dailyClonidine Hcl 0.1 mg tablet extended release 12 hr Active 0.1 MG PO Twice daily December 282:00am Complies with drug therapytake 1 tablet by mouth twice dailycloNIDine (CATAPRES) 0.1 MG tablet Take 1 tablet by mouth 2 times daily 8am, 4pm ActiveCLONIDINE HCL ORAL Take by mouth. SuspendedCLONIDINE HCL ORAL Take by mouth. ActiveCLONIDINE HCL ORAL Take by mouth. 0 Activecyanocobalamin, vitamin B-12, (VITAMIN B-12 ORAL) (2 sources)cyanocobalamin, vitamin B-12, (VITAMIN B-12 ORAL) Take 1,500 mcg by mouth. Activecyproheptadine hydrochloride 4 mg oral tablet (5 sources)Start: 92-58-7523heia 1 tablet by mouth once daily at bedtime Cyproheptadine 4 mg tablet Active 4 MG PO Daily at bedtime December 28, 2024 12:00am Complies with drug therapydiazePAM 5 mg oral tablet (8 sources)BenzodiazepineStart: 11-30-1218eshqnPNG (Valium) 5 MG tablet Indications: Gait instability , Developmental delay , Seizure disorder (HCC) Take 1 tablet (5 mg) by mouth 1 time for 1 dose 30 minutes prior to MRI 1 tablet 08/11/2024 ActiveStart: 59-40-2302tgeulRGC (VALIUM) 5 mg tablet 08/06/2017 ActivediphenhydrAMINE hydrochloride [...] total) before bedtime. ActiveNorethindrone-Ethin Estradiol (20 sources)EstrogenStart: 38-08-8331oubp 0.14990535881610652 ug by mouth once dailyNorethindrone-Ethin Estradiol (Nortrel 1/35 (21)) 1-35 mg-mcg (21) tablet Active 1 TAB PO Daily December 28, 2024 12:00am Complies with drug therapy Start: 86-72-6928ohqf 0.36815253264274070 ug by mouth once dailyStart: 40-29-0487EATCXKP 1/35, 28, 1-35 mg-mcg per tablet 10/07/2017 Activetake 1 tablet by mouth once daily in the morning, then take 0.13841695276627249-80 tablets by mouthoncenorethindrone-ethinyl estradiol (NORTREL 1/35, 21,) 1-35 MG- MCG per tablet Take 1 tablet by mouth every morning Activefamotidine 40 mg oral tablet (20 sources)Histamine-2 Receptor AntagonistStart: 46-30-3079gepa 1 tablet by mouth once dailyFamotidine 40 mg tablet Active 40 MG PO Daily December 28, 2024 12:00am Complies with drug therapyfluticasone propionate 0.05 mg/actuat metered dose nasal spray (17 sources)CorticosteroidStart: 82-18-4691gabi 2 spray(s) nasal route in the morningfluticasone propionate (FLONASE) 50 mcg/actuation nasal spray Administer 2 sprays into each nostrilin the morning. 16 g 12 02/24/2025 Activetake 2 spray(s) by inhalation once daily in the morningFluticasone Furoate 50 MCG/ACT AEPB Inhale 2 sprays into the lungs every morning Active End: 77-98-2445aseg 1 spray(s) nasal route once dailyfluticasone (FLONASE) 50 mcg/actuation nasal spray Administer 1 spray into each nostril daily. 12/24/2024 Discontinued (Alternate therapy)Fluticasone Propionate (FLONASE NASAL) [place] into each nostril. SuspendedFluticasone Propionate (FLONASE NASAL) [place] into each nostril. ActiveFluticasone Propionate (FLONASE NASAL) [place] into each nostril. 0 ActiveguaiFENesin 20 mg/ml oral solution (11 sources)Start: 96-63-3572xkub 200 mg by mouth every four hours as needed for coughGuaifenesin (Adult Tussin Chest Congestion) 100 mg/5 mL liquid Active 200 MG PO Every 4 hours as needed for cough December 28, 2024 12:00am Complies with drug therapytake 1 tablet by mouth twice daily as needed for cough guaiFENesin 400 MG tablet Take 1 tablet by mouth 2 times daily as needed for Cough Activetake 1 tablet by mouth every twelve hours as neededguaiFENesin (MUCINEX) 600 mg tablet extended release 12hr Take 1 tablet (600 mg total) by mouth every 12 (twelve) hours as needed. ActiveguanFACINE 2 mg oral tablet (20 sources)Central alpha-2 Adrenergic AgonistStart: 19-49-4502gdbj 1 tablet by mouth twice dailyGuanfacine 2 [...] by mouth. Activeibuprofen 600 mg oral tablet (20 sources)Nonsteroidal Anti-inflammatory DrugStart: 50-23-0800xuhqhbfw lactate 120 mg/ml topical cream (20 sources)Start: 22-82-8343ltmbechp lactate (AMLACTIN) 12 % cream 07/08/2017 Activeammonium lactate (Amlactin) 12 % cream Apply 2 application topically Daily Activelactobacillus acidophilus 16 mg oral capsule (13 sources)Lactobacillus (ACIDOPHILUS) CAPS Take by mouth. ActivelamoTRIgine 100 mg oral tablet (20 sources)Mood Stabilizer, Anti-epileptic AgentStart: 24-14-4109axsj 1 tablet by mouth once daily at bedtimeLamotrigine (Lamictal) 100 mg tablet Active 100 MG PO Daily at bedtime December 28, 2024 12:00am Complies with drug therapy Start: 07-09-4528kxch 1 tablet by mouth once dailyLamotrigine (Lamictal) 150 mg tablet Active 150 MG PO Daily December 28, 2024 12:00am Complies with drug therapyStart: 15-74-6597pnuzOKUcccs (LaMICtal XR) 300 mg tablet extended release 24hr 10/10/2017 Activelanolin 0.155 mg/mg / petrolatum 0.535 mg/mg topical ointment (2 sources)Vitamins A & D (VITAMIN A & D) ointment Apply topically 2 times daily as needed for Dry Skin Apply topically as needed skin redness Active lansoprazole 30 mg delayed release oral capsule (2 sources)Proton Pump InhibitorStart: 25-10-0806izhesfdoixsu (PREVACID) 30 mg capsule 01/23/2018 Activelevothyroxine sodium 0.2 mg oral tablet (20 sources)l-ThyroxineStart: 86-76-1225makf 1 tablet by mouth once daily Levothyroxine (Synthroid) 200 mcg tablet Active 200 MCG PO Daily January 27, 2025 12:00am Complieswith drug therapytake 1 tablet by mouth once daily levothyroxine (SYNTHROID) 25 MCG tablet Take 1 tablet by mouth Daily 4pm Active take 1 tablet by mouth in the morninglevothyroxine (SYNTHROID, LEVOTHROID) 100 MCG tablet Take 1 tablet (100 mcg total) by mouth in the morning. Activetake 1 tablet by mouth before mealtimelevothyroxine (Synthroid, Levoxyl) 175 MCG tablet Take 175 [...] Activemelatonin 3 mg oral capsule (20 sources)Start: 85-95-4680sadj 1 capsule by mouth once daily at bedtime Melatonin 3 mg capsule Active 3 MG PO Daily at bedtime December 28, 2024 12:00am Complies with drug therapytake 1 tablet by mouth at bedtimemelatonin 3 MG TABS tablet Take 1 tablet by mouth at bedtime Activetake 1 tablet by mouth at bedtimeMelatonin 3 MG tablet dispersible Take 3 mg by mouth at bedtime Active minoxidil 50 mg/ml topical spray (2 sources)Arteriolar Vasodilatorminoxidil (ROGAINE) 5 % solution Apply 1 application topically. Activemometasone furoate 0.05 mg/actuat metered dose nasal spray (6 sources)CorticosteroidStart: 01-14-5246bcve 2 spray(s) nasal route in the morningmometasone (NASONEX) 50 mcg/actuation nasal spray Indications: Nasal congestion Administer 2 spraysinto each nostril in the morning. 17 g 5 12/24/2024 Activemometasone (ELOCON) 0.1 % ointment Apply topically 2 times daily as needed M-F Activetake 2 puff(s) by inhalation once daily in the morning mometasone (ASMANEX) 50 MCG/ACT AERO inhaler Inhale 2 puffs into the lungs every morning Activemupirocin 0.02 mg/mg topical ointment (7 sources)RNA Synthetase Inhibitor AntibacterialStart: 65-06-0050Gekrlnttt (Centany) 2 % ointment Active 1 APPLIC TOPICAL Twice daily December 28, 2024 12:00am Complies with drug therapymupirocin (BACTROBAN) 2 % ointment Apply topically 2 times daily as needed Apply topically 3 times daily. Activemupirocin (BACTROBAN) 2 % ointment Apply 1 Application topically 3 (three) times a day. Activeondansetron 4 mg disintegrating oral tablet (8 sources)Serotonin-3 Receptor AntagonistStart: 13-76-6871Vzzgh: 03-02-2024 End: 82-23-7073ycfi 4 mg intravenously once as needed for nausea4 mg, Intravenous Push, PACU ONCE PRN, Starting on Sat03/02/24 at 0938, Until Sat03/02/24 at 1537, Nausea, Vomiting, PACU Nowtake 1 tablet by mouth every six hours as needed for nauseaondansetron (ZOFRAN) 4 MG tablet Take 1 tablet by mouth every 6 hours as needed for Nausea or Vomiting Activetake 1 tablet by mouth every eight hours as needed for nausea and vomitingondansetron (ZOFRAN) 4 mg tablet Take 1 tablet (4 mg total) by mouth every 8 (eight) hours as needed for nausea or vomiting. Nilvpz04 hr paliperidone 3 mg extended release oral tablet (20 sources)Atypical AntipsychoticStart: 77-18-4523jmnu 1 tablet by mouth three times dailyPaliperidone [...] release oral tablet (2 sources)Proton Pump InhibitorStart: 99-99-4977pvopdoeebftt (PROTONIX) 40 mg EC tablet 02/27/2018 Activepetrolatum 610 mg/ml topical cream (2 sources)Hydrocerin (EUCERIN) CREA cream Apply topically every morning Upper arms Activepolyethylene glycol 3350 25683 mg powder for oral solution (20 sources)Osmotic LaxativeStart: 02-92-3968Zojhjjxdjmhi Glycol 3350 (Clearlax) 17 gram powder in packet Active 17 GM PO Daily December 28, 2024 12:00am Complies with drug therapypolyethylene glycol 400 4 mg/ml / propylene glycol 3 mg/ml ophthalmic solution (2 sources)take 1 drop(s) into the eye(s) in the morningpolyethyl glycol-propyl glycol 0.4-0.3 % (SYSTANE) 0.4-0.3 % ophthalmic solution 1 drop in the morning and 1 drop in the evening. Affected eye. ActiveQUEtiapine 400 mg oral tablet (20 sources)Atypical AntipsychoticStart: 95-16-2608txjh 1 tablet by mouth once daily at [...] 1 mg oral tablet (4 sources)Atypical AntipsychoticStart: 35-53-2660zsibfadQVMT (RisperDAL) 0.5 mg tablet 10/10/2017 ActiveStart: 72-69-7133stemmkxWVBU (RisperDAL) 1 mg tablet 10/10/2017 ActiveSelenium (SELENIMIN ORAL) (13 sources)Selenium (SELENIMIN ORAL) Take by mouth. SuspendedSelenium (SELENIMIN ORAL) Take by mouth. ActiveSelenium (SELENIMIN ORAL) Take by mouth. 0 Activesennosides, halfway 8.6 mg oral tablet (20 sources)Start: 19-69-5175Gpbmplbczl (Black-Draught Lax-Senna) 8.6 mg tablet Active 17.2 MG PO 1 to 2 times per day as neededfor constipation December 28, 2024 12:00am Complies with drug therapytake 2 tablets by mouth twice daily as needed for constipationsenna (SENOKOT) 8.6 MG tablet Take 2 tablets by mouth 2 times daily as needed for Constipation Activetake 8.6 mg by mouth twice daily [...] oral tablet (20 sources)Mood Stabilizer, Anti-epileptic AgentStart: 60-53-7507Edujhchaap (Depakote) 125 mg tablet,delayed release (DR/EC) Active 1000 MG PO Three times daily January 27, 2025 1:21pm Complies with drug therapyStart: 67-55-8859kvfj 4 tablets by mouth once dailyStart: 12-28-2024 End: 53-88-2372Uvolkurrie (Depakote) 125 mg tablet,delayed release (DR/EC) Discontinued 1000 MG PO Twice daily December 28, 2024 12:00am January 27, 2025 1:23pmStart: 28-50-2420iymjxbfqlw sprinkle (DEPAKOTE SPRINKLE) 125 mg capsule 10/10/2017 Activetake 1 tablet by mouth three times daily at bedtime divalproex (DEPAKOTE) [address] tablet Take 1 tablet by mouth 3 times daily 8am, 4pm, HS Activezinc gluconate 50 mg oral tablet (13 sources)Zinc Gluconate 50 MG TABS Take by mouth. Active Completed/Discontinued Medications MedicationDrug Class(es)DatesSig (Normalized)Sig (Original)gadoteridol (PROHANCE) injection 13 mL (1 source)Start: 02-26-2025 End: 59-26-4500vzqe 1 dose intravenously once13 mL, IntraVENous, IMG ONCE PRN, 1 dose, Starting on Sat02/26/25 at 1229, Until Sat02/26/25 at 1230, Other1 ml naloxone hydrochloride 0.4 mg/ml injection (2 [...] Problems Active Problems Problem ClassificationProblemDateDocumented DateEpisodic/ChronicAllergic reactions (2 sources)Allergic disposition; Translations: [Other allergy, initial encounter]Onset: 164506-45-9607RnsctieqAwpcfqb disorders (20 sources)Anxiety disorder; Translations: [Anxiety disorder, unspecified] Onset: 353535-29-2419WcsbqjfIqidvbcj, dementia, and amnestic and other cognitive disorders (20 sources)Pseudobulbar affect; Translations: [Pseudobulbar affect]Onset: 623298-49-7417FkvyseeEsczaiogitnnm disorders (20 sources)Intellectual disability; Translations: [Unspecified intellectual disabilities]Onset: 513744-56-7726VclyvtqSdofulsrl usually diagnosed in infancy, childhood, or adolescence (20 sources)Autism spectrum disorder; Translations: [Autistic disorder]Onset: 145522-11-6492BqdrpigE Codes: Fall (1 source)Fall on same level from slipping, tripping and stumbling with subsequent striking against unspecified object, initial encounter; Translations: [FALL SAME LVL SLIP STRK UNS OBJ INT]Onset: 20-38-3232GatmdfrpKfqpfzyf; convulsions (20 sources)Epilepsy, unspecified, not intractable, without status epilepticus; Translations: [Seizure disorder]Onset: 37-41-8085UebiiuuNwmauvsr; convulsions (2 sources)Seizure ozxuugph63-80-9242EegpsltjKuwjcgjqthpbr symptoms and ill- defined conditions (1 source)Unspecified urinary incontinence; Translations: [UNSPECIFIED URINARY INCONTINENCE]Onset: 69-46-2103ZkwdlgdHqvxmnrjeumbd symptoms and ill-defined conditions (4 sources)Anuria and oliguria; Translations: [ANURIA AND OLIGURIA]Onset: 76-52-7203ElorpfavHchnqem and fatigue (2 sources)Asthenia; Translations: [Weakness]90-92-7683RhgdeekwVyltwnseaf disorders (1 source)Hormone replacement therapy; Translations: [HORMONE REPLACEMENT THERAPY]Onset: 58-57-4383RjljyrutGhqoinl (6 sources)Onychomycosis; Translations: [Tinea unguium]34-79-9327PiukjuwyMbam wounds of head; neck; and trunk (4 sources)Laceration without foreign body of other part of head, initial encounter; Translations: [LAC W/O FBOTH PART HEAD INIT ENC]Onset: 07-21-2022 EpisodicOther aftercare (5 sources)Other emt intermediate (current) drug therapy; Translations: [OTH ASSISTED CURRENT DRUG THERAPY]Onset: 71-33-8666KdluimmzFmrjs connective tissue disease (6 sources)Pain of toe of right foot; Translations: [Pain in right toe(s)] 29-47-6951TlviaagsZjwmn connective tissue disease (6 sources)Pain of toe of left foot; Translations: [Pain in left toe(s)] 25-69-6351MfxkhodyPubng diseases of veins and lymphatics (2 sources)Peripheral venous insufficiency; Translations: [Venous insufficiency (chronic) (peripheral)]94-87-3074BlxbttaqGhgyf nervous system disorders (20 sources)Abnormal gait; Translations: [Unsteadiness on feet]Onset: 08-06-2023 68-59-2413UxgyukjbLoxjk nervous system disorders (2 sources)Unsteadiness on feet; Translations: [Unsteadiness on feet]Onset: 05-72-3446NfzcptjiWtakn skin disorders (2 sources)Ingrowing nail; Translations: [Ingrowing nail]89-64-6509EfylsdjvKgnar upper respiratory disease (1 source)Chronic rhinitis; Translations: [Chronic rhinitis]47-70-0015Cffwjsz Other upper respiratory disease (1 source)Chronic rhinitis; Translations: [Chronic rhinitis]Onset: 02-24-2025 ChronicOther upper respiratory disease (5 sources)Nasal congestion; Translations: [Nasal congestion]Onset: 12-24-2024 68-84-8994UynmijkdLeqvw upper respiratory disease (1 source)Nasal congestion; Translations: [Nasal congestion]Onset: 12-24-2024 EpisodicOther upper respiratory infections (6 sources)Recurrent sinusitis; Translations: [Chronic sinusitis, unspecified] Onset: 858412-87-7416XivzkyiFhkljrcnsog injury; contusion (1 source)Contusion of other part of head, initial encounter; Translations: [CONTUS OTH PRT HEAD INITIAL ENCNTR]Onset: 15-73-1807LbvfbtrkRuhcbsk disorders (17 sources)Hypothyroidism, unspecified; Translations: [Autoimmune thyroiditis] Onset: 10-72-2344JlpmjyoOnzhcsaaznli (1 source)NO ZEHY90-56-2359Jtubyrkxsikn (1 source)Sinus ProblemOnset: 27-94-3606Yoomnokhfaya (2 sources)Please arrange for MRI with General Anesthesia, need to have an MRI suite that can accommodate general anesthesiaUnclassified (1 source)New PatientOnset: 02-24-2025 Past or Other Problems Problem ClassificationProblemDateDocumented DateEpisodic/ChronicBiliary tract disease (6 sources)Finding of measures of gallbladder; Translations: [Other specified diseases of gallbladder]Onset: 09-03-2017 Resolved: 800895-39-9014UplzvzniPafhtynbtj associated with dizziness or vertigo (20 sources)Dizziness; Translations: [Dizziness and giddiness]Onset: 07-03-2018 84-94-7771FrzpmslpZzstavhox of teeth and jaw (13 sources)Dental caries; Translations: [Dental caries, unspecified]Onset: 12-27-2023 Resolved: 319640-81-8066VkpnaagkIfur disorders (2 sources)Mood disordersOnset: Nausea and vomiting (2 sources)Vomiting; Translations: [Vomiting, unspecified]Onset: 09-03-2017 11-77-3664VuscojfzNlkdi gastrointestinal disorders (2 sources)Dysphagia; Translations: [Dysphagia, unspecified]Onset: 09-03-2017 58-33-6525LqfreiomPxqej nutritional; endocrine; and metabolic disorders (6 sources)Developmental delay; Translations: [Unspecified lack of expected normal physiological development in childhood]Onset: EpisodicOther nutritional; endocrine; and metabolic disorders (2 sources)Weight decreased; Translations: [Abnormal weight loss]Onset: 09-03-2017 Resolved: 643912-04-2930MqgxfnbsNlmeqosu codes; unclassified (20 sources)Personal history of other specified conditions; Translations: [Personal history of other specified diseases]Onset: Episodic Results Test NameValueInterpretationReference RangeFacilityMRI BRAIN W WO CONTRASTon 94-95-0421KTK BRAIN W WO CONTRASTEXAMINATION: MRI OF THE BRAIN WITHOUT AND WITH CONTRAST; MRI OF THE CERVICAL SPINE WITHOUT CONTRAST 02/26/2025 11:07 am TECHNIQUE: Multiplanar multisequence [...] mass, shift, or bleed is identified. The medial temporal lobes are symmetric in size and signal intensity. No abnormal enhancement is detected after contrast administration. 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 Bkyd-ds-ovmmcigy degenerative disc disease is noted at C5-C6. No acute fracture or traumatic subluxation is identified. The cervical cord is normal in size and signal intensity. At C5-C6 there is a disc osteophyte complex, ligamentum flavum thickening, and facet hypertrophy resulting in severe narrowing of the thecal sac and both neural foramen. IMPRESSION: Cerebral volume loss, advanced for patient's stated age. Severe degenerative thecal sac narrowing and neural foraminal stenosis at the C5-C6 disc level. Interpreted by: Mario Blankenship MD Signed by: Mario Blankenship MD 02/28/25 Final resultNormalMercy Park SanitariumMRI CERVICAL SPINE WO CONTRAST on 78-57-6045SDE CERVICAL SPINE WO CONTRASTEXAMINATION: MRI OF THE BRAIN WITHOUT AND WITH CONTRAST; MRI OF THE CERVICAL SPINE WITHOUT CONTRAST 02/26/2025 11:07 am TECHNIQUE: Multiplanar multisequence [...] mass, shift, or bleed is identified. The medial temporal lobes are symmetric in size and signal intensity. No abnormal enhancement is detected after contrast administration. 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 Matp-sp-oblmmdha degenerative disc disease is noted at C5-C6. No acute fracture or traumatic subluxation is identified. The cervical cord is normal in size and signal intensity. At C5-C6 there is a disc osteophyte complex, ligamentum flavum thickening, and facet hypertrophy resulting in severe narrowing of the thecal sac and both neural foramen. IMPRESSION: Cerebral volume loss, advanced for patient's stated age. Severe degenerative thecal sac narrowing and neural foraminal stenosis at the C5-C6 disc level. Interpreted by: Mario Blankenship MD Signed by: Mario Blankenship MD 02/28/25 Final resultNormalMercy Park SanitariumNo Panel Informationon [id number] volume loss, advanced for patient's stated age. Severe degenerative thecal sac narrowing and neural foraminal stenosis at the C5-C6 disc level. [facility]PN RIS CONSOLIDATEDEXAMINATION: MRI OF THE BRAIN WITHOUT AND WITH CONTRAST; MRI OF THE CERVICAL SPINE WITHOUT CONTRAST 02/26/2025 11:07 am TECHNIQUE: Multiplanar multisequence [...] mass, shift, or bleed is identified. The medial temporal lobes are symmetric in size and signal intensity. No abnormal enhancement is detected after contrast administration. 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 Lkat-sc-ujowaquq degenerative disc disease is noted at C5-C6. No acute fracture or traumatic subluxation is identified. The cervical cord is normal in size and signal intensity. At C5-C6 there is a disc osteophyte complex, ligamentum flavum thickening, and facet hypertrophy resulting in severe narrowing of the thecal sac and both neural foramen. [facility] Mario Oliver MD - 02/28/2025 EXAMINATION: MRI OF THE BRAIN WITHOUT AND WITH CONTRAST; MRI OF THE CERVICAL SPINE WITHOUT CONTRAST 02/26/2025 11:07 am TECHNIQUE: Multiplanar multisequence [...] mass, shift, or bleed is identified. The medial temporal lobes are symmetric in size and signal intensity. No abnormal enhancement is detected after contrast administration. 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 Hdiw-oo-ppoobnuo degenerative disc disease is noted at C5-C6. No acute fracture or traumatic subluxation is identified. The cervical cord is normal in size and signal intensity. At C5-C6 there is a disc osteophyte complex, ligamentum flavum thickening, and facet hypertrophy resulting in severe narrowing of the thecal sac and both neural foramen. IMPRESSION: Cerebral volume loss, advanced for patient's stated age. Severe degenerative thecal sac narrowing and neural foraminal stenosis at the C5-C6 disc level. [employer]No Panel InformationOrdered By: Mario Blankenship on 02-28-2025 [facility] [employer] Work Phone: HCG Screen, Bloodon [id number] Screen, Blood PositiveAbnormalNEGMercy Park SanitariumComment on above:Result Comment: If HCG results do not concur with clinical observations, additional testing to confirm result is recommended. This test is not labeled for use as a tumor marker. [employer] has confirmed the use of plasma for this test. This has not been cleared or approved by the U.S. Food and Drug Administration. The FDA has determined that such clearance is not necessary.Performed By: #### HCG #### [employer] [address] [place] [address] Coin Teller: Jake Cabral MDHCG, SERUM, QUALITATIVEon [id number] ( test) QlPositiveAbnormalNEGATIVEInova Alexandria HospitalComment on above: If HCG results do not concur with clinical observations, additional testing to confirm result is recommended. This test is not labeled for use as a tumor marker. [facility] has confirmed the use of plasma for this test. This has not been cleared or approved by the U.S. Food and Drug Administration. The FDA has determined that such clearance is not necessary. Interpretation and review of laboratory resultsAbnormalCarilion Franklin Memorial Hospital Brain WO and W contrast Rajni [id number] Study observation (narrative)[facility] Cervical spine WO contraston [id number] Study observation (narrative)[facility] HospitalRESPIRATORY ALLERGY PANELon [id number] ALTERNATA<^0.10Normal <0.10ProOhiohealth Dublin Methodist HospitalComment on above:Order Comment: Class 0: Normal Class 0/1: Low level of Allergy, indicative of ongoing sensitization. Class 1: Low level of Allergy, indicative of ongoing sensitization. Class 2: Moderate level of Allergy, indicative of stronger ongoing sensitization. Class 3: High level of Allergy, indicative of high level sensitization. Class 4: Very High level of Allergy, indicative of very high level sensitization. Class 5: Very High level of Allergy, indicative of very high level sensitization. Class 6: Very High level of Allergy, indicative of very high level sensitization.Performed By: #### RAP #### [facility] ([facility]) [address] [place] [address] VIRASPERGILLUS FUMIGATUS<^0.10Normal<0.10ProWayne HealthCare Main [facility] on above:Order Comment: Class 0: Normal Class 0/1: Low level of Allergy, indicative of ongoing sensitization. Class 1: Low level of Allergy, indicative of ongoing sensitization. Class 2: Moderate level of Allergy, indicative of stronger ongoing sensitization. Class 3: High level of Allergy, indicative of high level sensitization. Class 4: Very High level of Allergy, indicative of very high level sensitization. Class 5: Very High level of Allergy, indicative of very high level sensitization. Class 6: Very High level of Allergy, indicative of very high level sensitization.Performed By: #### RAP #### [facility] ([facility]) [address] [place] [address] VIRBERMUDA GRASS<^0.10Normal<0.10ProMiddletown Hospital Hospital Comment on above:Order Comment: Class 0: Normal Class 0/1: Low level of Allergy, indicative of ongoing sensitization. Class 1: Low level of Allergy, indicative of ongoing sensitization. Class 2: Moderate level of Allergy, indicative of stronger ongoing sensitization. Class 3: High level of Allergy, indicative of high level sensitization. Class 4: Very High level of Allergy, indicative of very high level sensitization. Class 5: Very High level of Allergy, indicative of very high level sensitization. Class 6: Very High level of Allergy, indicative of very high level sensitization.Performed By: #### RAP #### [facility] ([facility]) [address] [place] [address] VIRBOX ELDER<^0.10Normal<0.10ProOhiohealth Dublin Methodist HospitalComment on above:Order Comment: Class 0: Normal Class 0/1: Low level of Allergy, indicative of ongoing sensitization. Class 1: Low level of Allergy, indicative of ongoing sensitization. Class 2: Moderate level of Allergy, indicative of stronger ongoing sensitization. Class 3: High level of Allergy, indicative of high level sensitization. Class 4: Very High level of Allergy, indicative of very high level sensitization. Class 5: Very High level of Allergy, indicative of very high level sensitization. Class 6: Very High level of Allergy, indicative of very high level sensitization.Performed By: #### RAP #### [facility] ([facility]) [address] [place] [address] VIRCAT DANDER<^0.10Normal<0.10ProOhiohealth Dublin Methodist HospitalComment on above:Order Comment: Class 0: Normal Class 0/1: Low level of Allergy, indicative of ongoing sensitization. Class 1: Low level of Allergy, indicative of ongoing sensitization. Class 2: Moderate level of Allergy, indicative of stronger ongoing sensitization. Class 3: High level of Allergy, indicative of high level sensitization. Class 4: Very High level of Allergy, indicative of very high level sensitization. Class 5: Very High level of Allergy, indicative of very high level sensitization. Class 6: Very High level of Allergy, indicative of very high level sensitization.Performed By: #### RAP #### [facility] ([facility]) [address] [place] [address] VIRCLADOSPORIUM HERB<^0.10Normal<0.10ProOhiohealth Dublin Methodist Hospital Comment on above:Order Comment: Class 0: Normal Class 0/1: Low level of Allergy, indicative of ongoing sensitization. Class 1: Low level of Allergy, indicative of ongoing sensitization. Class 2: Moderate level of Allergy, indicative of stronger ongoing sensitization. Class 3: High level of Allergy, indicative of high level sensitization. Class 4: Very High level of Allergy, indicative of very high level sensitization. Class 5: Very High level of Allergy, indicative of very high level sensitization. Class 6: Very High level of Allergy, indicative of very high level sensitization.Performed By: #### RAP #### [facility] ([facility]) [address] [place] [address] VIRCOCKLEBUR<^0.10Normal<0.10ProOhiohealth Dublin Methodist HospitalComment on above:Order Comment: Class 0: Normal Class 0/1: Low level of Allergy, indicative of ongoing sensitization. Class 1: Low level of Allergy, indicative of ongoing sensitization. Class 2: Moderate level of Allergy, indicative of stronger ongoing sensitization. Class 3: High level of Allergy, indicative of high level sensitization. Class 4: Very High level of Allergy, indicative of very high level sensitization. Class 5: Very High level of Allergy, indicative of very high level sensitization. Class 6: Very High level of Allergy, indicative of very high level sensitization.Performed By: #### RAP #### [facility] ([facility]) [address] [place] [address] VIRCOCKROACH<^0.10Normal<0.10ProMiddletown Hospital HospitalComment on above:Order Comment: Class 0: Normal Class 0/1: Low level of Allergy, indicative of ongoing sensitization. Class 1: Low level of Allergy, indicative of ongoing sensitization. Class 2: Moderate level of Allergy, indicative of stronger ongoing sensitization. Class 3: High level of Allergy, indicative of high level sensitization. Class 4: Very High level of Allergy, indicative of very high level sensitization. Class 5: Very High level of Allergy, indicative of very high level sensitization. Class 6: Very High level of Allergy, indicative of very high level sensitization.Performed By: #### RAP #### [facility] ([facility]) [address] [place] [address] VIRCOMMON PIGWEED<^0.10Normal<0.10ProOhio[facility] Dublin Methodist Hospital Comment on above:Order Comment: Class 0: Normal Class 0/1: Low level of Allergy, indicative of ongoing sensitization. Class 1: Low level of Allergy, indicative of ongoing sensitization. Class 2: Moderate level of Allergy, indicative of stronger ongoing sensitization. Class 3: High level of Allergy, indicative of high level sensitization. Class 4: Very High level of Allergy, indicative of very high level sensitization. Class 5: Very High level of Allergy, indicative of very high level sensitization. Class 6: Very High level of Allergy, indicative of very high level sensitization.Performed By: #### RAP #### [facility] ([facility]) [address] [place] [address] VIRCOMMON RAGWEED<^0.10Normal<0.10ProOhio[facility] Hospital Comment on above:Order Comment: Class 0: Normal Class 0/1: Low level of Allergy, indicative of ongoing sensitization. Class 1: Low level of Allergy, indicative of ongoing sensitization. Class 2: Moderate level of Allergy, indicative of stronger ongoing sensitization. Class 3: High level of Allergy, indicative of high level sensitization. Class 4: Very High level of Allergy, indicative of very high level sensitization. Class 5: Very High level of Allergy, indicative of very high level sensitization. Class 6: Very High level of Allergy, indicative of very high level sensitization.Performed By: #### RAP #### [facility] ([facility]) [address] [place] [address] VIRCOMMON SILVER BIRCH<^0.10Normal<0.10ProOhiohealth Dublin Methodist HospitalComment on above:Order Comment: Class 0: Normal Class 0/1: Low level of Allergy, indicative of ongoing sensitization. Class 1: Low level of Allergy, indicative of ongoing sensitization. Class 2: Moderate level of Allergy, indicative of stronger ongoing sensitization. Class 3: High level of Allergy, indicative of high level sensitization. Class 4: Very High level of Allergy, indicative of very high level sensitization. Class 5: Very High level of Allergy, indicative of very high level sensitization. Class 6: Very High level of Allergy, indicative of very high level sensitization.Performed By: #### RAP #### [facility] ([facility]) [address] [place] [address] VIRCOTTONWOOD<^0.10Normal<0.10ProOhiohealth Dublin Methodist HospitalComment on above:Order Comment: Class 0: Normal Class 0/1: Low level of Allergy, indicative of ongoing sensitization. Class 1: Low level of Allergy, indicative of ongoing sensitization. Class 2: Moderate level of Allergy, indicative of stronger ongoing sensitization. Class 3: High level of Allergy, indicative of high level sensitization. Class 4: Very High level of Allergy, indicative of very high level sensitization. Class 5: Very High level of Allergy, indicative of very high level sensitization. Class 6: Very High level of Allergy, indicative of very high level sensitization.Performed By: #### RAP #### [facility] ([facility]) [address] [place] [address] VIRDERMATOPH FARINAE<^0.10Normal<0.10ProOhio[facility] Comment on above:Order Comment: Class 0: Normal Class 0/1: Low level of Allergy, indicative of ongoing sensitization. Class 1: Low level of Allergy, indicative of ongoing sensitization. Class 2: Moderate level of Allergy, indicative of stronger ongoing sensitization. Class 3: High level of Allergy, indicative of high level sensitization. Class 4: Very High level of Allergy, indicative of very high level sensitization. Class 5: Very High level of Allergy, indicative of very high level sensitization. Class 6: Very High level of Allergy, indicative of very high level sensitization.Performed By: #### RAP #### [facility] ([facility]) [address] [place] [address] VIRDERMATOPH PTERONYSS<^0.10Normal<0.10Pro[facility] Sears HospitalComment on above:Order Comment: Class 0: Normal Class 0/1: Low level of Allergy, indicative of ongoing sensitization. Class 1: Low level of Allergy, indicative of ongoing sensitization. Class 2: Moderate level of Allergy, indicative of stronger ongoing sensitization. Class 3: High level of Allergy, indicative of high level sensitization. Class 4: Very High level of Allergy, indicative of very high level sensitization. Class 5: Very High level of Allergy, indicative of very high level sensitization. Class 6: Very High level of Allergy, indicative of very high level sensitization.Performed By: #### RAP #### [facility] ([facility]) [address] [place] [address] VIRDOG DANDER<^0.10Normal<0.10Pro[facility] HospitalComment on above:Order Comment: Class 0: Normal Class 0/1: Low level of Allergy, indicative of ongoing sensitization. Class 1: Low level of Allergy, indicative of ongoing sensitization. Class 2: Moderate level of Allergy, indicative of stronger ongoing sensitization. Class 3: High level of Allergy, indicative of high level sensitization. Class 4: Very High level of Allergy, indicative of very high level sensitization. Class 5: Very High level of Allergy, indicative of very high level sensitization. Class 6: Very High level of Allergy, indicative of very high level sensitization.Performed By: #### RAP #### [facility] ([facility]) [address] [place] [address] VIRELM<^0.10Normal<0.10Pro[facility] Sears HospitalComment on above:Order Comment: Class 0: Normal Class 0/1: Low level of Allergy, indicative of ongoing sensitization. Class 1: Low level of Allergy, indicative of ongoing sensitization. Class 2: Moderate level of Allergy, indicative of stronger ongoing sensitization. Class 3: High level of Allergy, indicative of high level sensitization. Class 4: Very High level of Allergy, indicative of very high level sensitization. Class 5: Very High level of Allergy, indicative of very high level sensitization. Class 6: Very High level of Allergy, indicative of very high level sensitization.Performed By: #### RAP #### [facility] ([facility]) [address] [place] [address] VIRGOOSEFOOT CANNON QTR<^0.10Normal<0.10[facility] Comment on above:Order Comment: Class 0: Normal Class 0/1: Low level of Allergy, indicative of ongoing sensitization. Class 1: Low level of Allergy, indicative of ongoing sensitization. Class 2: Moderate level of Allergy, indicative of stronger ongoing sensitization. Class 3: High level of Allergy, indicative of high level sensitization. Class 4: Very High level of Allergy, indicative of very high level sensitization. Class 5: Very High level of Allergy, indicative of very high level sensitization. Class 6: Very High level of Allergy, indicative of very high level sensitization.Performed By: #### RAP #### [facility] ([facility]) [address] [place] [address] VIRIGE2 IU/mLNormal<=165ProOhiohealth Dublin Methodist HospitalComment on above:Order Comment: Class 0: Normal Class 0/1: Low level of Allergy, indicative of ongoing sensitization. Class 1: Low level of Allergy, indicative of ongoing sensitization. Class 2: Moderate level of Allergy, indicative of stronger ongoing sensitization. Class 3: High level of Allergy, indicative of high level sensitization. Class 4: Very High level of Allergy, indicative of very high level sensitization. Class 5: Very High level of Allergy, indicative of very high level sensitization. Class 6: Very High level of Allergy, indicative of very high level sensitization.Performed By: #### RAP #### [facility] ([facility]) [address] [place] [address] VIRJOHNSON GRASS<^0.10Normal<0.10[facility] Comment on above:Order Comment: Class 0: Normal Class 0/1: Low level of Allergy, indicative of ongoing sensitization. Class 1: Low level of Allergy, indicative of ongoing sensitization. Class 2: Moderate level of Allergy, indicative of stronger ongoing sensitization. Class 3: High level of Allergy, indicative of high level sensitization. Class 4: Very High level of Allergy, indicative of very high level sensitization. Class 5: Very High level of Allergy, indicative of very high level sensitization. Class 6: Very High level of Allergy, indicative of very high level sensitization.Performed By: #### RAP #### [facility] ([facility]) [address] [place] [address] VIRMAPLE LEAF SYCAMORE<^0.10Normal<0.10ProOhiohealth Dublin Methodist HospitalComment on above:Order Comment: Class 0: Normal Class 0/1: Low level of Allergy, indicative of ongoing sensitization. Class 1: Low level of Allergy, indicative of ongoing sensitization. Class 2: Moderate level of Allergy, indicative of stronger ongoing sensitization. Class 3: High level of Allergy, indicative of high level sensitization. Class 4: Very High level of Allergy, indicative of very high level sensitization. Class 5: Very High level of Allergy, indicative of very high level sensitization. Class 6: Very High level of Allergy, indicative of very high level sensitization.Performed By: #### RAP #### [facility] ([facility]) [address] [place] [address] VIRMEADOW GRASS [place] BLU0.17 kU/LAbnormal<0.10ProOhiohealth Dublin Methodist HospitalComment on above:Order Comment: Class 0: Normal Class 0/1: Low level of Allergy, indicative of ongoing sensitization. Class 1: Low level of Allergy, indicative of ongoing sensitization. Class 2: Moderate level of Allergy, indicative of stronger ongoing sensitization. Class 3: High level of Allergy, indicative of high level sensitization. Class 4: Very High level of Allergy, indicative of very high level sensitization. Class 5: Very High level of Allergy, indicative of very high level sensitization. Class 6: Very High level of Allergy, indicative of very high level sensitization.Performed By: #### RAP #### [facility] ([facility]) [address] [place] [address] VIRMOUNTAIN JUNIPER<^0.10Normal<0.10[facility] Comment on above:Order Comment: Class 0: Normal Class 0/1: Low level of Allergy, indicative of ongoing sensitization. Class 1: Low level of Allergy, indicative of ongoing sensitization. Class 2: Moderate level of Allergy, indicative of stronger ongoing sensitization. Class 3: High level of Allergy, indicative of high level sensitization. Class 4: Very High level of Allergy, indicative of very high level sensitization. Class 5: Very High level of Allergy, indicative of very high level sensitization. Class 6: Very High level of Allergy, indicative of very high level sensitization.Performed By: #### RAP #### [facility] ([facility]) [address] [place] [address] VIRMOUSE URINE PROTEINS<^0.10Normal<0.10ProOhiohealth Dublin Methodist HospitalComment on above:Order Comment: Class 0: Normal Class 0/1: Low level of Allergy, indicative of ongoing sensitization. Class 1: Low level of Allergy, indicative of ongoing sensitization. Class 2: Moderate level of Allergy, indicative of stronger ongoing sensitization. Class 3: High level of Allergy, indicative of high level sensitization. Class 4: Very High level of Allergy, indicative of very high level sensitization. Class 5: Very High level of Allergy, indicative of very high level sensitization. Class 6: Very High level of Allergy, indicative of very high level sensitization.Performed By: #### RAP #### [facility] ([facility]) [address] [place] [address] VIRMUGWORT<^0.10Normal<0.10ProOhiohealth Dublin Methodist HospitalComment on above:Order Comment: Class 0: Normal Class 0/1: Low level of Allergy, indicative of ongoing sensitization. Class 1: Low level of Allergy, indicative of ongoing sensitization. Class 2: Moderate level of Allergy, indicative of stronger ongoing sensitization. Class 3: High level of Allergy, indicative of high level sensitization. Class 4: Very High level of Allergy, indicative of very high level sensitization. Class 5: Very High level of Allergy, indicative of very high level sensitization. Class 6: Very High level of Allergy, indicative of very high level sensitization.Performed By: #### RAP #### [facility] ([facility]) [address] [place] [address] VIRMULBERRY TREE<^0.10Normal<0.10Pro[facility] Comment on above:Order Comment: Class 0: Normal Class 0/1: Low level of Allergy, indicative of ongoing sensitization. Class 1: Low level of Allergy, indicative of ongoing sensitization. Class 2: Moderate level of Allergy, indicative of stronger ongoing sensitization. Class 3: High level of Allergy, indicative of high level sensitization. Class 4: Very High level of Allergy, indicative of very high level sensitization. Class 5: Very High level of Allergy, indicative of very high level sensitization. Class 6: Very High level of Allergy, indicative of very high level sensitization.Performed By: #### RAP #### [facility] ([facility]) [address] [place] [address] VIRNETTLE<^0.10Normal<0.10ProMedica Sears HospitalComment on above:Order Comment: Class 0: Normal Class 0/1: Low level of Allergy, indicative of ongoing sensitization. Class 1: Low level of Allergy, indicative of ongoing sensitization. Class 2: Moderate level of Allergy, indicative of stronger ongoing sensitization. Class 3: High level of Allergy, indicative of high level sensitization. Class 4: Very High level of Allergy, indicative of very high level sensitization. Class 5: Very High level of Allergy, indicative of very high level sensitization. Class 6: Very High level of Allergy, indicative of very high level sensitization.Performed By: #### RAP #### [facility] ([facility]) [address] [place] [address] VIROAK<^0.10Normal<0.10ProMiddletown Hospital HospitalComment on above:Order Comment: Class 0: Normal Class 0/1: Low level of Allergy, indicative of ongoing sensitization. Class 1: Low level of Allergy, indicative of ongoing sensitization. Class 2: Moderate level of Allergy, indicative of stronger ongoing sensitization. Class 3: High level of Allergy, indicative of high level sensitization. Class 4: Very High level of Allergy, indicative of very high level sensitization. Class 5: Very High level of Allergy, indicative of very high level sensitization. Class 6: Very High level of Allergy, indicative of very high level sensitization.Performed By: #### RAP #### [facility] ([facility]) [address] [place] [address] VIRPECAN HICKORY TREE<^0.10Normal<0.10[facility] Comment on above:Order Comment: Class 0: Normal Class 0/1: Low level of Allergy, indicative of ongoing sensitization. Class 1: Low level of Allergy, indicative of ongoing sensitization. Class 2: Moderate level of Allergy, indicative of stronger ongoing sensitization. Class 3: High level of Allergy, indicative of high level sensitization. Class 4: Very High level of Allergy, indicative of very high level sensitization. Class 5: Very High level of Allergy, indicative of very high level sensitization. Class 6: Very High level of Allergy, indicative of very high level sensitization.Performed By: #### RAP #### [facility] ([facility]) [address] [place] [address] VIRPENICILLIUM CHRYSOGN<^0.10Normal<0.10[facility]ucl[facility] HospitalComment on above:Order Comment: Class 0: Normal Class 0/1: Low level of Allergy, indicative of ongoing sensitization. Class 1: Low level of Allergy, indicative of ongoing sensitization. Class 2: Moderate level of Allergy, indicative of stronger ongoing sensitization. Class 3: High level of Allergy, indicative of high level sensitization. Class 4: Very High level of Allergy, indicative of very high level sensitization. Class 5: Very High level of Allergy, indicative of very high level sensitization. Class 6: Very High level of Allergy, indicative of very high level sensitization.Performed By: #### RAP #### [facility] ([facility]) [address] [place] [address] MAICOL HALL<^0.10Normal<0.10[facility] Comment on above:Order Comment: Class 0: Normal Class 0/1: Low level of Allergy, indicative of ongoing sensitization. Class 1: Low level of Allergy, indicative of ongoing sensitization. Class 2: Moderate level of Allergy, indicative of stronger ongoing sensitization. Class 3: High level of Allergy, indicative of high level sensitization. Class 4: Very High level of Allergy, indicative of very high level sensitization. Class 5: Very High level of Allergy, indicative of very high level sensitization. Class 6: Very High level of Allergy, indicative of very high level sensitization.Performed By: #### RAP #### [facility] ([facility]) [address] [place] [address] VIRSALTWORT JENN THISTLE<^0.10Normal<0.10ProOhiohealth Dublin Methodist HospitalComment on above:Order Comment: Class 0: Normal Class 0/1: Low level of Allergy, indicative of ongoing sensitization. Class 1: Low level of Allergy, indicative of ongoing sensitization. Class 2: Moderate level of Allergy, indicative of stronger ongoing sensitization. Class 3: High level of Allergy, indicative of high level sensitization. Class 4: Very High level of Allergy, indicative of very high level sensitization. Class 5: Very High level of Allergy, indicative of very high level sensitization. Class 6: Very High level of Allergy, indicative of very high level sensitization.Performed By: #### RAP #### [facility] ([facility]) [address] [place] [address] VIRSHEEP SORREL<^0.10Normal<0.10[facility] Comment on above:Order Comment: Class 0: Normal Class 0/1: Low level of Allergy, indicative of ongoing sensitization. Class 1: Low level of Allergy, indicative of ongoing sensitization. Class 2: Moderate level of Allergy, indicative of stronger ongoing sensitization. Class 3: High level of Allergy, indicative of high level sensitization. Class 4: Very High level of Allergy, indicative of very high level sensitization. Class 5: Very High level of Allergy, indicative of very high level sensitization. Class 6: Very High level of Allergy, indicative of very high level sensitization.Performed By: #### RAP #### [facility] ([facility]) [address] [place] [address] VIRTIMOTHY<^0.10Normal<0.10ProOhiohealth Dublin Methodist HospitalComment on above:Order Comment: Class 0: Normal Class 0/1: Low level of Allergy, indicative of ongoing sensitization. Class 1: Low level of Allergy, indicative of ongoing sensitization. Class 2: Moderate level of Allergy, indicative of stronger ongoing sensitization. Class 3: High level of Allergy, indicative of high level sensitization. Class 4: Very High level of Allergy, indicative of very high level sensitization. Class 5: Very High level of Allergy, indicative of very high level sensitization. Class 6: Very High level of Allergy, indicative of very high level sensitization.Performed By: #### RAP #### [facility] ([facility]) [address] [place] [address] VIRWALNUT TREE POLLEN<^0.10Normal<0.10[facility] Comment on above:Order Comment: Class 0: Normal Class 0/1: Low level of Allergy, indicative of ongoing sensitization. Class 1: Low level of Allergy, indicative of ongoing sensitization. Class 2: Moderate level of Allergy, indicative of stronger ongoing sensitization. Class 3: High level of Allergy, indicative of high level sensitization. Class 4: Very High level of Allergy, indicative of very high level sensitization. Class 5: Very High level of Allergy, indicative of very high level sensitization. Class 6: Very High level of Allergy, indicative of very high level sensitization.Performed By: #### RAP #### [facility] ([facility]) [address] [place] [address] VIRWHITE GISELA<^0.10Normal<0.10ProOhiohealth Dublin Methodist HospitalComment on above:Order Comment: Class 0: Normal Class 0/1: Low level of Allergy, indicative of ongoing sensitization. Class 1: Low level of Allergy, indicative of ongoing sensitization. Class 2: Moderate level of Allergy, indicative of stronger ongoing sensitization. Class 3: High level of Allergy, indicative of high level sensitization. Class 4: Very High level of Allergy, indicative of very high level sensitization. Class 5: Very High level of Allergy, indicative of very high level sensitization. Class 6: Very High level of Allergy, indicative of very high level sensitization.Performed By: #### RAP #### [facility] ([facility]) [address] [place] [address] VIRAnesthesia Postprocedure Evaluationon 03-02-2024 Photo Printer Authentication Interface Message TextAnesthesia Postoperative Assessment: Vital Signs (most recent): BP [...] ANESTHESIA NOTABLE EVENTS: No notable events documented.NormalThe [facility] SystemAnesthesia Preprocedure Evaluationon [id number] Authentication Interface Message TextASA: 3 No history of anesthetic complications NPO status: Greater than 8 hours Past Medical History and Review of Systems Pulmonary (+) sleep apnea (-) non-smoker Dental ROS (+) teeth problems missing Endo (+) hypothyroidism (Gato's disease) 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 Scheduled for surgery 03/02/2024. ) Questions answered / anesthesia plan accepted ( Anesthesia consent obtained and scanned into [email or web address]. Scheduled for surgery 03/02/2024. ) Past medical history, surgical history, allergies, and medications reviewed. Pertinent laboratory tests, EKG, imaging, and consults reviewed and I have personally seen and evaluated the patient, repeating cabrera portions of the history and physical examination. Attestation: Anesthesia options were discussed with the patient and/or legal manufacturing sales representative. The risks, benefits and alternatives were reviewed. Questions regarding anesthesia were answered. Patient and/or legal manufacturing sales representative knows such anesthetics and procedures may be performed by Resident physicians, Certified Anesthesiologist Assistants, or Certified Nurse Anesthetists under the supervision of a physician. The patient /or the patient's legal manufacturing sales representative agree with the plan for anesthesia. Comment: Anesthesia consent obtained and scanned into EPIC. Scheduled for surgery 03/02/2024. [facility] CenterAnesthesia Transfer Of [facility]on [facility]-2024 Photo Printer Authentication Interface Message TextPatient taken to PACU. [...] surgical history indicates: EXTRACTION, TOOTH (09/15/2014) Procedure: [place] teeth; Surgeon: Bradley Goodwin DDS; Location: PERIOPERATIVE SERVICES; Service: Oral EUA, ORAL (09/15/2014) Procedure: EUA, ORAL; Surgeon: Bradley Goodwin DDS; Location: PERIOPERATIVE SERVICES; Service: Oral Allergies: Linzess [linaclotide] and Zarontin [ethosuximide] Basic Operating Room Facts: Surgeon(s): Elmer Topete DDS Anesthesiologist: Milton Luna MD COMMUNITY HEALTH EDUCATION COORDINATOR: Adalgisa Smith APRN-DARSHAN B2B Outside Sales Representative: Dayanna Preciado MD DENTAL RESTORATIONS (Right: Mouth) [...] of the report was received. Adalgisa Smith, [facility] SystemBlood Attestationon [id number] Authentication Interface Message TextBlood Attestation: ATTESTATION OF INFORMED CONSENT FOR BLOOD: The transfusion of blood and/or blood components were discussed with the patient and/or legal manufacturing sales representative. The risks, benefits and alternatives were reviewed. Questions regarding blood transfusions were answered. The patient /or the patient's legal manufacturing sales representative agree with the plan for transfusion of blood and/or blood components.NormalThe HelpHub SystemBrief Operative Noteon 06-04-1306Tbdirquhxfoyv Authentication Interface Message TextBrief Operative Note PHE OR 3 Ponce Esteves 29 year old female Surgical Contact Serial Number: [id number] Preoperative Diagnosis: Pre-op Diagnosis * Caries [K02.9] Postoperative Diagnosis: * Caries [K02.9] Procedures: Full mouth x-ray [01191] Prophylaxis [35738] Restorations [45406] Floride application [12841] Surgeon(s): Surgeon(s): Elmer Topete DDS Staff: Dorr Operator Nurse: Trudi Padilla Numerical Control Drill Press Operator: Paula Contreras DDS; Melquiades Christie DDS Anesthesia: General Anesthesiologist: Milton Luna MD COMMUNITY HEALTH EDUCATION COORDINATOR: Adalgisa Smith APRN-DARSHAN B2B Outside Sales Representative: Dayanna Preciado MD Specimen(s): * No specimens [...] by Paula Contreras DDS 03/02/2024 11:48 AMNormalThe HelpHub System Progress Noteson [id number] Authentication Interface Message Text ----- Saturday, March 02, 2024 at 11:38:59 AM ----- ----- Provider: [id number] - Elmer Rebolledo DDS -- Clinic: [facility] ----- [place] notes, [place] is ready for tx [place]. X-Rays look good, few cavities found and confirmed clinically. restos completed. OP Note by Paula Contreras DDS at 03/01/2024 6:14 PM Author: Paula Contreras DDS Service: Dentistry Author Type: Resident Filed: 03/02/2024 11:56 AM Date of Service: 03/01/2024 6:14 PM Note Type: OP Note Status: Cosign Needed Biosolids Management Technician: Paula Contreras DDS (Resident) Cosign Required: Yes Expand All Collapse All Surgical Case Number Data Unavailable Operating Room Data Unavailable Preoperative Diagnosis(es): Caries [k02.9] Surgeon: Dr. Topete Auto Technician Surgeon: Melquiades Arias DDS - Paula [...] the treatment plan included the following: Composite moravian on tooth #7 surface ML. Amalgam restorations [...] 2024 at 11:57:17 AM ----- ----- Provider: [id number] - Elmer Rebolledo DDS -- Clinic: [facility] -----NormalThe [facility] URINE HCG-IN OFFICEon [id number] ( test) Ql (U)NegativeNegative MetroHealthNegative Internal ControlNegativeNegativeMetroHealthPositive Internal ControlPositivePositiveMetroHealthMetroHealthURINE HCG-IN OFFICEOrdered By: Aure Salgado on [id number] ( test) Ql (U)NegativeNegative MetroHealthInterpretation and review of laboratory resultsNormalMetroHealth Negative Internal ControlNegativeNegativeMetroHealthPositive Internal Control PositivePositiveMetroHealthMetroHealthOP Noteon [id number] Authentication Interface Message TextSurgical Case Number Data Unavailable Operating Room Data Unavailable Preoperative Diagnosis(es): Caries [k02.9] Surgeon: Dr. Topete Auto Technician Surgeon: Melquiades Arias DDS - Paula [...] the treatment plan included the following: Composite moravian on tooth #7 surface ML. Amalgam restorations [...] procedure. Paula Contreras DDS 03/01/2024 6:15 PMNormalThe [facility] SystemTelephone Encounteron [id number] Authentication Interface Message Text Anesthesia consent obtained and scanned into [email or web address]. Scheduled for surgery 03/02/2024.NormalMer[facility] Health Fairfield Hospital SystemTelephone Encounteron 02-21-2024 Photo Printer Authentication Interface Message TextAnesthesia consent obtained and scanned into [email or web address]. Scheduled for surgery 03/02/2024.[facility] SystemPAT Call Historyon 02-19-2024 Photo Printer Authentication Interface Message TextTelephone History Ponce Esteves, [id number] 02/19/2024 Patient was identified by name and date of via Jerman, caregiver. Needs: Physical, Neck Circumference, BHCG, and ED on DOS. Note: OSH records/labs scanned to communications media professor. If the patient becomes ill prior to procedure or surgery, they are to call their provider or surgeon's office directly. 29 year old 136.6 lbs 5' 4 Date of Surgery: 03/02 Surgeon: Yoselyn Type of Surgery: DENTAL RESTORATIONS HISTORY OF PRESENT ILLNESS: telephone history for the upcoming surgery at [facility], [address] [place], enter through the [place]water entrance doors. 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 Fluticasone Propionate (FLONASE NASAL) Molina into each nostril. Selenium (SELENIMIN ORAL) Take by mouth. Sennosides (SENNA) 15 MG tablet Take 1 Tab by mouth daily as needed for Constipation. topiramate (TOPIRAGEN) 25 MG tablet Take 75 mg by mouth 2 times daily (more content not included)...NormalThe [facility] SystemProgress Noteson 02-17-2024 Photo Printer Authentication Interface Message TextPatient PAT has be rescheduled for 02/19/2024--for OR visit 03/02/2024----- Saturday, February 17, 2024 at 10:10:00 AM ----- ----- Provider: LESLIE - Candace [facility] Physiotherapist -- [place] -----NormalThe [facility] SystemProgress Noteson [id number] Authentication Interface Message TextPatient was no show for PAT today at [place] there surgery is scheduled 03/02-Contact Concetta figueroa --advised if PAT needs to reschedule or patient will be removed from OR----- Monday, February 05, 2024 at 4:24:04 PM ----- ----- Provider: LESLIE [facility] -- [place] -----NormalThe [facility] SystemProgress Noteson [id number] Authentication Interface Message TextParent/guardian/patient was contacted for PAT AND OR Sedation scheduled -- confirmed information with patient, also informed mom importance of going to PAT appointment -- if missed, IV Sedation will be cancelled, and you will be placed back on wait list 03/02/24----- Monday, January 08, 2024 at 2:14:12 PM ----- ----- Provider: LESLIE [facility] Physiotherapist -- [place] -----NormalThe [facility] CenterroMetrohealth [facility] SystemProgress Notes [id number] Authentication Interface Message TextAttempted to contact patient/ parent / guardian at telephone number listed -- no answer, left voicemail message requesting a return call.----- Saturday, December 30, 2023 at 2:26:35 PM ----- ----- Provider: LESLIE [facility] Physiotherapist -- [place] -----[facility] SystemFree T4on 83-44-8383Cavy T4 [Mass/Vol]1.12 ng/dLNormal0.58-1.64Olaf Meritus Medical CenterComment on above:Performed By: #### [id number], [id number] #### [facility] [address] [place], [place] [address]Amwkothhk Orderon [id number] Order [id number]#1.00CD:127NormalFisher Adventist HealthCare White Oak Medical CenterHon 88-27-5255TYT Qn4.74 m[IU]/LNormal0.34-5.60Way[facility] Healthcare Main CampusComment on above:Performed By: #### [id number], [id number] #### [facility] [address] [place], [place] [address]DQWS T4on 02-51-4755Kvmq T4 [Mass/Vol]1.76 ng/dLCritically high 0.76-1.46The [facility] Main CampusComment on above:Performed By: #### FT4 #### [facility] [address] [place] [address] Dr. Volodymyr PaezFlagstaff Medical Center [id number] Qnm[IU]/LCritically low0.358-3.740TrihealthComment on above:Performed By: #### TSH #### [facility] [address] [place] [address] Dr. Volodymyr Matthews URINEon [id number] URINEIsolate 1 Streptococcus agalactiae >100,000 cfu/mL of ORGANISM 1 Streptococcus agalactiae ANTIBIOTIC M.I.C RX STATUS Benzylpenicillin <=0.06 S F Ampicillin <=0.25 S F Cefotaxime <=0.12 S F Ceftriaxone <=0.12 S F Levofloxacin 1 S F Inducible Clindamycin Resistance Neg NEG F Erythromycin >=8 R F Clindamycin >=1 R F Linezolid <=2 S F Vancomycin 0.5 S F Tetracycline >=16 R FNormalTrihealthComment on above:Performed By: #### TSH, CMP #### [facility] [address] [place] [address] Dr. Volodymyr Zapata (CLEAN/CATCH) CORE LAYING MACHINE OPERATOR/MICRO IF IND.on [id number] Ql (U) NegativeNormalNEGATIVETrihealthComment on above:Performed By: #### UACSIND, UMICRO #### [facility] [address] [place] [address] Dr. Volodymyr PaezClarity (U)CLEARNormalCLEARThe Austell HospitalComment on above: Performed By: #### UACSIND, UMICRO #### [facility] [address] [address] [address] Volodymyr Jones (U)LT. YELLOWNormalYELLOWTrihealthComment on above:Performed By: #### UACSSHAHEEN, UMICRO #### [facility] [address] [address] [address] Volodymyr PaezGlucose Ql (U)NegativeNormalNEGATIVEUniversity Hospitals Ahuja Medical Center HospitalComment on above:Performed By: #### UACSSHAHEEN, UMICRO #### [facility] [address] [address] [address] Volodymyr PaezHemoglobin Ql (U)NegativeNormalNEGATIVEEast [facility] on above:Performed By: #### UACSSHAHEEN, UMICRO #### [facility] [address] [address] [address] Volodymyr PaezKetones Ql (U)NegativeNormalNEGATIVETrihealthComment on above:Performed By: #### UACSSHAHEEN UMICRO #### [facility] [address] [address] [address] Volodymyr PaezLEUKOCYTESSMALLAbnormalNEGATIVETrihealthComment on above:Performed By: #### UACSSHAHEEN, UMICRO #### [facility] [address] [address] [address] Volodymyr PaezNitrite Ql (U)NegativeNormalNEGATIVETrihealthComment on above:Performed By: #### UACSSHAHEEN, UMICRO #### [facility] [address] [address] [address] Volodymyr PaezpH (U)7.0 [pH]Normal5-9The [facility] CampusComment on above: Performed By: #### UACSIND, UMICRO #### [facility] [address] [address] [address] Volodymyr PaezSPEC GRAVITY1.467Aaiflw5.005-<=1.025The [facility] Main CampusComment on above:Performed By: #### TASHA UMICRO #### [facility] [address] [address] [address] Volodymyr Zapata PROTEINNegativeNormalNEGATIVE/ TRACEThe [facility] Comment on above:Performed By: #### TASHA UMICRO #### [facility] [address] [address] [address] Volodymyr Mendez MICRO INDINDICATEDNoSelect Medical Specialty Hospital - Cincinnati NorthComment on above: Performed By: #### TASHA UMICRO #### [facility] [address] [address] [address] Volodymyr Barber Qn (U)0.2 {Leta'U}/dLNormal0.2 - 1.0The [facility] CampusComment on above:Performed By: #### TASHA UMICRO #### [facility] [address] [address] [address] Volodymyr Garcia MICROSCOPIC ONLYon [id number]E SEEN The [facility] Main CampusCombeaumont hospital on above:Performed By: #### TASHA UMICRO #### [facility] [address] [address] [address] Volodymyr Ladd identified Cx Nom (U)INDICATEDProMedica Toledo HospitalComment on above:Performed By: #### TASHA UMICRO #### [facility] [address] [address] [address] Volodymyr Ernst SEENNormalNONE SEENTrihealthComment on above:Performed By: #### TASHA UMICRO #### [facility] [address] [address] [address] Volodymyr Mcdonough LM Nom (Urine sed)NONE SEENNormalNONE SEENTrihealthCombeaumont hospital on above:Performed By: #### TASHA UMICRO #### [facility] [address] [address] [address] Helm ChangEpithelial cells LM Ql (Urine sed)MODERATEAbnormalNONE SEEN /RARE The [facility] CampusComment on above:Performed By: #### MYAHCSSHAHEEN UMICRO #### [facility] [address] [place] [address] Dr. Volodymyr PaezMUCOUSTRACEAbnormalNONE SEENThe [facility] on above:Performed By: #### UACSIND UMICRO #### [facility] [address] [place] [address] Dr. Volodymyr PaezUhzcjORM3-1Ficqmjnm7-2Zdy Adena Pike Medical Centerment on above:Performed By: #### MYAHCSSHAHEEN UMICRO #### [facility] [address] [place] [address] Dr. Volodymyr PaezInfjzUZA11-76OlhoiisbMRND SEENTrihealthComment on above: Performed By: #### TASHA UMICRO #### [facility] [address] [place] [address] Dr. Volodymyr PaezLAMOTRIGINEon 60-18-9657Nsbctxpgiih, Serum11.2 ug/mLNormal 2.0-20.0The [facility] CampusComment on above:Result Comment: Detection Limit = 1.0Performed By: #### TSH, CMP #### [facility] [address] [place] [address] Dr. Volodymyr Kevin AUTO DIFFon [id number] #0.0 103/ulNormal0.0-0.1The [facility] CampusComment on above:Performed By: #### CBC #### [facility] [address] [place] [address] Dr. Volodymyr PaezBasophils/100 WBC (Bld)0.4 %Normal0.2-2.0The [facility] Comment on above:Performed By: #### CBC #### [facility] [address] [place] [address] Dr. Volodymyr Alcala #0.4 103/ulNormal0.0-0.7The [facility] CampusComment on above: Performed By: #### CBC #### [facility] [address] [address] [address] Volodymyr Haydenosinophils/100 WBC (Bld)4.3 %Normal0.9-7.0The [facility] Comment on above:Performed By: #### CBC #### [facility] [address] [place] [address] Dr. Volodymyr Haydenrythrocyte distribution width (RBC) [Ratio]13.2 %Oyoplk81.0-15.0 The [facility] CampusComment on above:Performed By: #### CBC #### [facility] [address] [place] [address] Dr. Volodymyr PaezHematocrit (Bld) [Volume fraction]40.2 %Dkfnir58.0-48.0The [facility] CampusComment on above:Performed By: #### CBC #### [facility] [address] [place] [address] Dr. Volodymyr PaezHemoglobin (Bld) [Mass/Vol]13.8 g/zJVtsvsn90.0-16.0The [facility] CampusComment on above:Performed By: #### CBC #### [facility] [address] [place] [address] Dr. Volodymyr Harrison #0.02 10e3/ulNormal0.00-0.03The [facility] CampusComment on above:Performed By: #### CBC #### [facility] [address] [place] [address] Dr. Volodymyr Harrison %0.2 %Normal0.0-0.5The [facility] CampusComment on above: Performed By: #### CBC #### [facility] [address] [place] [address] Dr. Volodymyr Mccormick #4.3 103/ulCritically high1.2-3.8The [facility] Comment on above:Performed By: #### CBC #### [facility] [address] [place] [address] Dr. Volodymyr Levimphocytes/100 WBC (Bld)51.8 %Uiqkqm17.5-60.0The [facility] CampusComment on above:Performed By: #### CBC #### [facility] [address] [address] [address] Volodymyr Hatch DIFF REQNONormalThe [facility] CampusComment on above: Performed By: #### CBC #### [facility] [address] [address] [address] Volodymyr Khan (RBC) [Entitic mass]31.0 stRnysia44.7-34.0The [facility] CampusComment on above:Performed By: #### CBC #### [facility] [address] [address] [address] Volodymyr Khan (RBC) [Mass/Vol]34.3 g/nDCltarj24.9-35.2The [facility] CampusComment on above:Performed By: #### CBC #### [facility] [address] [place] [address] Dr. Volodymyr Khan (RBC) [Entitic vol]90.3 iCJsbfev69.0-99.0[facility] Hospitalment on above:Performed By: #### CBC #### [facility] [address] [place] [address] Dr. Volodymyr Villegas #0.9 103/ulCritically high0.3-0.8ThR[facility] Comment on above:Performed By: #### CBC #### [facility] [address] [address] [address] Volodymyr Geeocytes/100 WBC (Bld)10.4 %Normal1.7-12.0[facility] Comment on above:Performed By: #### CBC #### [facility] [address] [address] [address] Volodymyr Kelly #2.7 103/ulNormal1.4-6.5The [facility] CampusComment on above:Performed By: #### CBC #### [facility] [address] [place] [address] Dr. Volodymyr Coulterutrophils/100 WBC (Bld)32.9 %Critically low43.0-75.0The [facility] CampusComment on above:Performed By: #### CBC #### [facility] [address] [place] [address] Dr. Volodymyr Hunt mean volume (Bld) [Entitic vol]10.3 fLNormal9.5-13.5The [facility] CampusComment on above:Performed By: #### CBC #### [facility] [address] [place] [address] Dr. Volodymyr MorinT231 103/zhLafmuo073-140Xyy [facility] CampusComment on above: Performed By: #### CBC #### [facility] [address] [place] [address] Dr. Volodymyr PaezRBC4.45 106/ulNormal4.20-5.40The [facility] CampusComment on above:Performed By: #### CBC #### [facility] [address] [place] [address] Dr. Volodymyr PaezWBC8.2 103/ulNormal4.0-11.0The [facility] CampusComment on above: Performed By: #### CBC #### [facility] [address] [place] [address] Dr. Volodymyr Munoz/ VALPROIC ACIDon 11-73-8996YBTLRRKL67.3 ug/mlNormal 50.0-100.0The [facility] CampusComment on above:Performed By: #### VALP #### [facility] [address] [place] [address] Dr. Volodymyr Moore THYROIDon [id number] THYROIDEXAMINATION: US THYROID HISTORY: Autoimmune thyroiditis COMPARISON: [...] 6 mm. No follow-up required TI-RADS: The [employer] [employer] TI-RADS committee's white paper recommendations for thyroid lesions classified as TR4 (moderately suspicious) are listed below: > 1.0 cm. Follow-up ultrasound in 1, 2, 3, and 5 years. > 1.5 cm. FNA. J. Am Chidi Radiol 2017;14:587-595. Electronically authenticated by: MATILDE WATERMAN Date: 2022-07-10 13:01NoSelect Medical Specialty Hospital - [facility] NorthLAMOTRIGINEon 47-73-5790Zmlpnjymakb, Serum14.2 ug/mLNormal 2.0-20.0TrihealthComment on above:Result Comment: Detection Limit = 1.0Performed By: #### TSH, CMP #### [facility] [address] [place] [address] Dr. Volodymyr Kevin AUTO DIFFon 30-36-8630BRRQ #0.1 103/ulNormal0.0-0.1TrihealthComment on above:Performed By: #### TSH, CMP #### [facility] [address] [place] [address] Dr. Volodymyr Jamesonsophils/100 WBC (Bld)0.7 %Normal0.2-2.0[facility] Comment on above:Performed By: #### TSH, CMP #### [facility] [address] [place] [address] Dr. Volodymyr Alcala #0.4 103/ulNormal0.0-0.7The [facility] CampusComment on above: Performed By: #### TSH, CMP #### [facility] [address] [place] [address] Dr. Volodymyr Haydenosinophils/100 WBC (Bld)5.1 %Normal0.9-7.0[facility] Comment on above:Performed By: #### TSH, CMP #### [facility] [address] [place] [address] Dr. Volodymyr Haydenrythrocyte distribution width (RBC) [Ratio]13.1 %Wvqlrd87.0-15.0 The [facility] CampusComment on above:Performed By: #### TSH, CMP #### [facility] [address] [place] [address] Dr. Volodymyr PaezHematocrit (Bld) [Volume fraction]39.7 %Pjqlwj26.0-48.0The [facility] CampusComment on above:Performed By: #### TSH, CMP #### [facility] [address] [place] [address] Dr. Volodymyr PaezHemoglobin (Bld) [Mass/Vol]13.3 g/wDZdtxsw92.0-16.0The [facility] on above:Performed By: #### TSH, CMP #### [facility] [address] [place] [address] Dr. Volodymyr Harrison #0.02 10e3/ulNormal0.00-0.03The [facility] CampusCombeaum[facility] on above:Performed By: #### TSH, CMP #### [facility] [address] [place] [address] Dr. Volodymyr Harrison %0.3 %Normal0.0-0.5The [facility] Centerment on above: Performed By: #### TSH, CMP #### [facility] [address] [place] [address] Dr. Volodymyr PondH #3.6 103/ulNormal1.2-3.8The [facility] on above:Performed By: #### TSH, CMP #### [facility] [address] [place] [address] Dr. Volodymyr Pondhocytes/100 WBC (Bld)47.4 %Xrokcq99.5-60.0The [facility] on above:Performed By: #### TSH, CMP #### [facility] [address] [place] [address] Dr. Volodymyr StroudUAL DIFF REQNONormalThe [facility] CampusComment on above: Performed By: #### TSH, CMP #### [facility] [address] [place] [address] Dr. Volodymyr Khan (RBC) [Entitic mass]30.3 ztPhxnuw95.7-34.0The [facility] CampusComment on above:Performed By: #### TSH, CMP #### [facility] [address] [place] [address] Dr. Volodymyr Khan (RBC) [Mass/Vol]33.5 g/kGMvwayc32.9-35.2The [facility] HospitalComment on above:Performed By: #### TSH, CMP #### [facility] [address] [place] [address] Dr. Volodymyr Khan (RBC) [Entitic vol]90.4 oMTymdnt77.0-99.0The [facility] CampusComment on above:Performed By: #### TSH, CMP #### [facility] [address] [place] [address] Dr. Volodymyr Villegas #0.9 103/ulCritically high0.3-0.8The [facility] Comment on above:Performed By: #### TSH, CMP #### [facility] [address] [place] [address] Dr. Volodymyr Geeocytes/100 WBC (Bld)11.3 %Normal1.7-12.0[facility] Comment on above:Performed By: #### TSH, CMP #### [facility] [address] [place] [address] Dr. Volodymyr Kelly #2.7 103/ulNormal1.4-6.5The [facility] CampusComment on above:Performed By: #### TSH, CMP #### [facility] [address] [place] [address] Dr. Volodymyr Coulterutrophils/100 WBC (Bld)35.2 %Critically low43.0-75.0The [facility] CampusComment on above:Performed By: #### TSH, CMP #### [facility] [address] [place] [address] Dr. Volodymyr Llamaslet mean volume (Bld) [Entitic vol]11.4 fLNormal9.5-13.5The [facility] CampusComment on above:Performed By: #### TSH, CMP #### [facility] [address] [place] [address] Dr. Volodymyr PaezPLT96 103/ulCritically ysq067-097Mtn [facility] CampusComment on above:Result Comment: slide made; no plt clumps seenPerformed By: #### TSH, CMP #### [facility] [address] [place] [address] Dr. Volodymyr PaezRBC4.39 106/ulNormal4.20-5.40The [facility] on above:Performed By: #### TSH, CMP #### [facility] [address] [place] [address] Dr. Volodymyr PaezWBC7.6 103/ulNormal4.0-11.0The [facility] on above: Performed By: #### TSH, CMP #### [facility] [address] [place] [address] Dr. Volodymyr River T4on 34-50-6783Mlfw T4 [Mass/Vol]1.45 ng/dLNormal0.76-1.46 [facility] on above:Performed By: #### FT4 #### [facility] [address] [place] [address] Dr. Volodymyr PaezPROF 14(COMP METB)on 65-08-2784Veqpbfk [Mass/Vol]3.2 g/dL Critically low3.4-5.0The [facility] CampusCombeaum[facility] on above:Performed By: #### TSH, CMP #### [facility] [address] [place] [address] Dr. Volodymyr PaezAlbumin/Globulin [Mass ratio]0.7 {ratio}NormalThe [facility] on above:Performed By: #### TSH, CMP #### [facility] [address] [place] [address] Dr. Volodymyr PaezALP [Catalytic activity/Vol]65 U/YZjvkny90-079Qwg [facility] HospitalComment on above:Performed By: #### TSH, CMP #### [facility] [address] [address] [address] Volodymyr ArcherT [Catalytic activity/Vol]20 U/CYpygms39-38Rpl [facility] CampusComment on above:Performed By: #### TSH, CMP #### [facility] [address] [address] [address] Volodymyr Reyeson gap [Moles/Vol]11.3 mmol/LNormalThe [facility] Comment on above:Performed By: #### TSH, CMP #### [facility] [address] [address] [address] Volodymyr PaezAST [Catalytic activity/Vol]25 U/XRhejsa91-66Jdd [facility] CampusComment on above:Performed By: #### TSH, CMP #### [facility] [address] [address] [address] Volodmyyr PaezBilirubin [Mass/Vol]0.3 mg/dLNormal0.2-1.0The [facility] Comment on above:Performed By: #### TSH, CMP #### [facility] [address] [address] [address] Volodymyr PaezCalcium [Mass/Vol]9.5 mg/dLNormal8.5-10.1The [facility] Comment on above:Performed By: #### TSH, CMP #### [facility] [address] [address] [address] Volodymyr PaezChloride [Moles/Vol]100 mmol/AZakouu33-483Oqo [facility] Comment on above:Performed By: #### TSH, CMP #### [facility] [address] [address] [address] Voldoymyr PaezCO2 [Moles/Vol]30.1 mmol/FMzuilp72.0-32.0The [facility] Comment on above:Performed By: #### TSH, CMP #### [facility] [address] [address] [address] Volodymyr PaezCreatinine [Mass/Vol]0.92 mg/dLNormal0.55-1.02The [facility]je[facility] HospitalComment on above:Performed By: #### TSH, CMP #### [facility] [address] [address] [address] Volodymyr HaydenGFR-AF PANAMANIAN>60Normal>=60The [facility] CampusComment on above:Performed By: #### TSH, CMP #### [facility] [address] [address] [address] Volodymyr HaydenGFR-NON AF PANAMANIAN>60Normal>=60The [facility] CampusComment on above:Performed By: #### TSH, CMP #### [facility] [address] [address] [address] Volodymyr PaezGlobulin (S) [Mass/Vol]4.4 g/dLNormalThe [facility] CampusComment on above:Performed By: #### TSH, CMP #### [facility] [address] [address] [address] Volodymyr PaezGlucose [Mass/Vol]76 mg/vRYcbtet89-193QvuTri[facility] Comment on above:Performed By: #### TSH, CMP #### [facility] [address] [address] [address] Volodymyr PaezPotassium [Moles/Vol]4.4 mmol/LNormal3.5-5.1The [facility] Comment on above:Performed By: #### TSH, CMP #### [facility] [address] [address] [address] Volodymyr PaezProtein [Mass/Vol]7.6 g/dLNormal6.4-8.2The [facility] Comment on above:Performed By: #### TSH, CMP #### [facility] [address] [address] [address] Volodymyr PaezSodium [Moles/Vol]137 mmol/VPtelji748-090MswTrihealth Comment on above:Performed By: #### TSH, CMP #### [facility] [address] [address] [address] Volodymyr PaezUrea nitrogen [Mass/Vol]7.0 mg/dLNormal7.0-18.0The [facility] CampusComment on above:Performed By: #### TSH, CMP #### [facility] [address] [address] [address] Volodymyr PaezUrea nitrogen/Creatinine [Mass ratio]7.6 mg/mgNormalThe [facility] CampusComment on above:Performed By: #### TSH, CMP #### [facility] [address] [place] [address] Dr. Volodymyr Everett 45-91-6874NGQ2.099 uIU/mLCritically low0.358-3.740The [facility] CampusComment on above:Performed By: #### TSH, CMP #### [facility] [address] [place] [address] Dr. Volodymyr RaiPAKENE/ VALPROIC ACIDon 78-14-9079DXZNKEQB30.4 ug/mlNormal 50.0-100.0The [facility] CampusComment on above:Performed By: #### TSH, CMP #### [facility] [address] [place] [address] Dr. Volodymyr Moore THYROIDon 11-25-0337ES THYROIDEXAMINATION: US THYROID HISTORY: Non-toxic multinodular goiter [...] screening is still recommended. TR 4: The [place] [employer] TI-RADS committee's white paper recommendations for thyroid lesions classified as TR4 (moderately suspicious) are listed below: > 1.0 cm. Follow-up ultrasound in 1, 2, 3, and 5 years. > 1.5 cm. FNA. J. Am Chidi Radiol 2017;14:587-595. Electronically authenticated by: KRIS MENDOZA Date: 2021-10-25 09:31NormalThe [facility] CampusFREE T4on 82-39-9252Yjyi T4 [Mass/Vol]1.08 ng/dLNormal0.76-1.46 The [facility] CampusComment on above:Performed By: #### TSH, CMP #### [facility] [address] [place], [place] [address] Dr. Volodymyr PaezTSHoalex 32-72-9025CFN10.719 uIU/mLCritically high0.358-3.740The [facility] CampusComment on above:Performed By: #### TSH #### [facility] [address] [place], [place] [address] Dr. Volodymyr Paez Vital Signs Date TimeVital SignValuePerforming GdxsbotfoRxwkmdzt29-15-5207 13:45-0500 Diastolic blood wpvpsuqi83 mm[Hg]Stv (1.5t)[facility]11-07-2025 13:45-0500Heart rate84 /minStv (1.5t)[facility]11-07-2025 13:45-0500Respiratory rate21 /minStv (1.5t)[facility]11-07-2025 13:45-4462ChX8% (BldA) [Mass fraction]99 %Stv (1.5t)[facility] 02-26-2025 13:45-0500Systolic blood jrpdzkaj570 mm[Hg]Stv (1.5t)[facility]11-07-2025 12:47-0500Body ljzftnecgnf97.8 [degF]Stv (1.5t)[facility]11-05-2025 09:34-0500Body mass index (BMI) [Ratio]22.73 kg/n5BpfmlShanna Stoll MD Work Phone: [facility]11-05-2025 09:34-0500Body ydqljg81.96 kgShanna Stoll MD Work Phone: [facility]11-05-2025 09:34-0500Diastolic blood mm[Hg]Shanna Stoll MD Work Phone: [facility]11-05-2025 09:34-0500Heart rate 79 /minShanna Stoll MD Work Phone: [facility]11-05-2025 09:34-1763RnB0% (BldA) [Mass fraction]97 %Shanna Stoll MD Work Phone: [facility]11-05-2025 09:34-0500Systolic blood lxujaleg003 mm[Hg]Shanna Stoll MD Work Phone: 1([phone] [place], [place] 1421211-04-2025 09:47-0500Body zupxsx860.1 cmMarc Dolce DPM FACFAS Work Phone: [phone])[address] [place], [place] [address]2011-04-2025 09:47-0500Body mass index (BMI) [Ratio]21.3 kg/m2Marc Dolce DPM FACFAS Work Phone: 1(573)[address] [place], [place] [address]2011-04-2025 09:47-0500Body kttajo09.06 kgMarc Dolce DPM FACFAS Work Phone: 1(832)[address] [place], [place] [address]2011-04-2025 09:47-0500Diastolic blood ywoiolso97 mm[Hg]Lai Alston DPM FACFAS Work Phone: 1(861)[address] [place], [place] [address]2011-04-2025 09:47-0500Heart rate70 /min Lai Alston DPM FACFAS Work Phone: 1([phone] [place], [place] [address]2011-04-2025 09:47-0500Systolic blood ukqfantg606 mm[Hg]Lai Alston DPM FACFAS Work Phone: 1(824)[address] [place], [place] 1822010-08-2025 13:12-0400Body pulgbx08.74 kgDaubaldo Iyer DO Work Phone: [facility]10-08-2025 13:12-0400 Diastolic blood zqyvtfoq73 mm[Hg]Nathan Iyer DO Work Phone: 1(567)[address] [place], [place] 2264010-08-2025 13:12-0400 Heart rate89 /minDaniel Iyer DO Work Phone: 1(815)[address] [place], [place] 8023310-08-2025 13:12-0400 SaO2% (BldA) [Mass fraction]98 %Nathan Iyer DO Work Phone: 1(352)[address] [place], [place] 8023310-08-2025 13:12-0400 Systolic blood khquzjwh857 mm[Hg]Nathan Iyer DO Work Phone: 1(089)[address] [place], [place] 8023309-19-2025 08:01-0400 Body yhdbof062.1 cmDaniel Iyer DO Work Phone: 1(234)[address] [place], [place] 8023309-19-2025 08:01-0400 Body zeoglq32.87 kgDaniel Iyer DO Work Phone: 1(014)[address] [place], [place] 8023309-19-2025 08:01-0400 Diastolic blood ahtozdnf84 mm[Hg]Nathan Iyer DO Work Phone: 1(696)[address] [place], [place] 8023309-19-2025 08:01-0400 Heart rate87 /minDaniel Iyer DO Work Phone: 1(042)[address] [place], [place] 8023309-19-2025 08:01-0400 Respiratory rate16 /minDaniel Iyer DO Work Phone: 1(585)[address] [place], [place] 8023309-19-2025 08:01-0400 SaO2% (BldA) [Mass fraction]97 %Nathan Iyer DO Work Phone: 1(336)[address] [place], [place] 8023309-19-2025 08:01-0400 Systolic blood mvdoxxju861 mm[Hg]Nathan Iyer DO Work Phone: 1(313)[address] [place], [place] 8023308-05-2025 10:00-0400 Body eghjjy103.1 cmMarc Dolce DPM FACFAS Work Phone: [facility] HospitalWheqapsspg13-94-0236 10:00-0400Body mass index (BMI) [Ratio]21.3 kg/m2Marc Dolce DPM FACFAS Work Phone: 1(419)[facility]-96[address] HospitalVkldumywjx10-63-3158 10:00-0400Body aisanb07.06 kgMarc Dolce DPM FACFAS Work Phone: [phone] HospitalRhginhdlww07-49-8944 10:00-0400Diastolic blood mm[Hg]Lai Hackettce DPM FACFAS Work Phone: 1(419)[address] [place], [place] 1822008-05-2025 10:00-0400Heart rate70 /min Lai Dolce DPM FACFAS Work Phone: 1(419)[address] [place], [place] 1822008-05-2025 10:00-0400Systolic blood ravqnour637 mm[Hg]Lai Hackettce DPM FACFAS Work Phone: 1(419)[facility] [place], [place] [address]Bygpyotdib94-44-3943 11:03-0400Body yqiqye934.1 cmMarc Dolce DPM FACFAS Work Phone: 1([phone] [place], [place] 1822005-06-2025 11:03-0400Body mass index (BMI) [Ratio]21.3 kg/m2Marc Dolce DPM FACFAS Work Phone: 1(419)[address] [place], [place] 1822005-06-2025 11:03-0400Body dosija85.06 kgMarc Dolce DPM FACFAS Work Phone: 1(419)[address] [place], [place] [address] HospitalNoodhghleb02-06-2211 11:03-0400Diastolic blood jmqqtogh36 mm[Hg]Lai Alston DPM FACFAS Work Phone: 1(419)[address] [place], [place] 1822005-06-2025 11:03-0400Heart rate71 /min Lai Dolce DPM FACFAS Work Phone: 1(419)[address] [place], [place] 1822005-06-2025 11:03-0400Systolic blood unxmtzrx646 mm[Hg]Lai Alston DPM FACFAS Work Phone: [phone] HospitalRwuadblzew23-24-0090 10:16-0400Body efednn320.1 cmAngsae De Anda PA Work Phone: [facility] HospitalRoucxaavlc71-93-1089 10:16-0400Body mass index (BMI) [Ratio]21.47 kg/x5Aezdks Lowe PA Work Phone: [facility] HospitalCjjqixthfu81-05-4085 10:16-0400Body eylndy84.51 kgAngela Lowe PA Work Phone: [facility] HospitalDhkkimnrma97-56-4601 10:16-0400Diastolic blood vpzsahel26 mm[Hg]Eduarda Lowe PA Work Phone: [facility] HospitalEldnzcjxmm57-25-3034 10:16-0400Systolic blood zppoxeze413 mm[Hg]Eduarda Lowe PA Work Phone: [facility] HospitalCdcdfnkdjk20-51-8766 10:24-0500Body .1 cmMarjuany Hackettce DPM FACFAS Work Phone: [facility] HospitalMsdeircgzd10-51-9881 10:24-0500Body mass index (BMI) [Ratio]21.47 kg/m2Marc Alecia DPM FACFAS Work Phone: [facility] HospitalErpbuuypmc48-32-0701 10:24-0500Body lapdht80.51 kgMarc Dolce DPM FACFAS Work Phone: [facility] HospitalKfmayufqsx50-80-3894 10:24-0500Diastolic blood savpryrt00 mm[Hg]Lai Alston DPM FACFAS Work Phone: [facility] HospitalXklbeoidox90-29-6871 10:24-0500Heart rate74 /min Lai Alston DPM FACFAS Work Phone: [facility] HospitalAfndqxksxq11-34-7322 10:24-0500Systolic blood psipmtzc922 mm[Hg]Lai Alston DPM FACFAS Work Phone: [facility] HospitalSrzmvgcale14-99-4896 09:45-0500Body abdmhz745.1 cmAngela Lowe PA Work Phone: [facility] HospitalXbikvepxch42-16-8304 09:45-0500Body mass index (BMI) [Ratio]21.47 kg/i3Xmfaaj Lowe PA Work Phone: [facility] HospitalCjdcmxcbih72-67-1005 09:45-0500Body letzey00.51 kgEduarda AMADOR Work Phone: [place] [address]Kileaficrq19-44-4883 11:19-0500Body .1 cmMarjuany Alston DPM FACFAS Work Phone: [facility] HospitalKgembkywqx05-39-9390 11:19-0500Body mass index (BMI) [Ratio]21.3 kg/m2Marc Dolce DPM FACFAS Work Phone: [place] [address]Oddpnsadkn92-89-5517 11:19-0500Body igdvyi76.06 kgMarc Dolce DPM FACFAS Work Phone: [place] [address]Ykcvufkmgg87-58-9541 11:19-0500Diastolic blood euuxdyaf14 mm[Hg]Lai Alston DPM FACFAS Work Phone: [place] [phone] 11:19-0500Heart rate88 /min Lai Lewezio DPM FACFAS Work Phone: [place] [address]Pvrfoxlwov65-29-4168 11:19-0500Systolic blood jxhmqobc720 mm[Hg]Lai Alston DPM FACFAS Work Phone: [place] [address]Emxwdedzvo68-95-9543 12:30-0500Body temperature 98.1 [degF]Elmer AlMisaelLetitiakristin DDS Work Phone: 1(715) [phone]fCwuxsr23-01-6862 12:30-0500Diastolic blood ljdyyeii30 mm[Hg]Elmer Topete DDS Work Phone: 1(763) [phone]dXohxqf33-08-6412 12:30-0500Heart dwmn186 /min Elmer ForbesLetitiakristin DDS Work Phone: 1(601) [phone]zHrorzx72-45-8732 12:30-0500Respiratory rate19 /minElmer ForbesLetitiakristin DDS Work Phone: 1(378) [phone]qWfvpqx27-89-0364 12:30-1240ZjG1% (BldA) [Mass fraction]98 %Elmer Topete DDS Work Phone: 1(237) [phone]uTbabxh90-27-1279 12:30-0500Systolic blood glruwjjm836 mm[Hg]Elmer Topete DDS Work Phone: 1(925) [phone]eXbjkhn70-90-0075 09:11-0500Body yazkue429.6 cm Elmer Topete DDS Work Phone: 1(393) [phone]oBxeiux57-07-2334 09:11-0500Body mass index (BMI) [Ratio]23.45 kg/m6MpcjnElmer Topete DDS Work Phone: 1(114) [phone]wTqcffb49-41-7382 09:11-0500Body .96 kg Elmer Topete DDS Work Phone: 1(437) [phone]eCelmyf18-50-6128 11:00-0400Body hksrfi424.6 cm Kelly Cabello ZSGvmxgTbwktl34-87-6221 11:00-0400Body mass index (BMI) [Ratio] 23.45 kg/p5Tludthpm Morris CRHnoohCmcffu17-27-9615 11:00-0400Body uygjsa87.96 kg Kelly Irineo DEEpvzbWpzkre92-87-7447 11:05-0400Diastolic blood perrujoh03 mm[Hg]Radha AMADOR Work Phone: noHERCAMOSHOP Mfofbftodm05-37-4312 11:05-0400Heart rate92 /min Radha AMADOR Work Phone: noMer[facility] WashingtonMasxvqjqjj98-74-1607 11:05-0400Respiratory rate16 /minRadha AMADOR Work Phone: noMer[facility] WashingtonJvhswusokd05-04-7415 11:05-0809EgB1% (BldA) [Mass fraction]96 %Radha AMADOR Work Phone: noHERCAMOSHOP Kmrwnaldky50-41-1900 11:05-0400Systolic blood mm[Hg]Radha AMADOR Work Phone: noMS Healthcare Encounters Encounter DateEncounter TypeCare ProviderFacilityStart: 02-26-2025 End: 21-11-5046hiytxjhizoLKSJWEJZKMGYousif [facility] Start: 02-26-2025 End: 20-33-8006Ltatuhkbzy hospital visit by physicianStgabriela Mri Rm 1 (1.5t)[facility] MRIComment on above:Unsteady gait; Seizure disorder (HCC)Start: 02-24-2025 End: 50-04-2720sbpkwemubdFDEFUF A HERRINGProMedica Sears HospitalStart: 02-24-2025 End: 54-66-6885Pkdpee consultation new/estab patient 58 Rohit Stoll MD Work Phone: [facility], A Department of [facility] HospitalComment on above:Other allergy, initial encounter (Primary Dx); Chronic rhinitisStart: 02-24-2025 End: 88-83-5141werckwhsbmMLXBY ELISAMemorial Health System HospitalStart: 02-23-2025 End: 07-81-2340Yqfoaf flowsheetMarc D Dolce DPM FACFAS Work Phone: noms [facility] HospitalnStart: 02-23-2025 End: 60-57-4491Apihmz flowsheetMarc D Dolce DPM FACFAS Work Phone: noms [facility] Hospitaltart: 02-23-2025 End: 18-59-8624Shwhrwz encounter procedureMarc D Dolce DPM FACFAS Work Phone: noms NMA PODComment on above:Onychomycosis (Primary Dx); Pain in right toe(s); Pain in left toe(s)Start: 02-23-2025 End: 61-67-7351ytjxwfyybzFPUY D DOLCENot AvailableStart: 01-27-2025 End: 65-66-4466ewnkwkwrjaDgipdv A Iyer DO Work Phone: [facility] Work Phone: Start: 01-27-2025 End: 28-54-6607Ftenlzi encounter procedureChlane Ruano DO-[facility] [place] Work Phone: Start: 01-08-2025 End: 34-82-2329Azrdbkv encounter procedureSmary Duvall VPFO-SAL-F[facility] HospitalStart: 01-08-2025 End: 71-12-4796yvwaeyvduyHrgmtq A Iyer DO Work Phone: [facility] Work Phone: Start: 12-28-2024 End: 67-51-0854Rjyiedoy ReferredSagloria Duvall WSKD-BUT-I-Pre-Surgical Testing Work Phone: Start: 12-28-2024 End: 16-94-5906Ywfrdaw encounter procedureSmary Duvall SINGING WAITER OR WAITRESS-EMERGENCY MANAGEMENT CONSULTANT-C -Pre-Surgical Testing Work Phone: Start: 12-28-2024 End: 26-20-8677zlgfpapfopKpenhy A Iyer DO Work Phone: [facility] Work Phone: Start: 12-24-2024 End: 87-73-4921Nuysxz outpatient new 30 minutesMaramanda Monroy PA-C Work Phone: [facility] ThroatComment on above:Recurrent sinusitis (Primary Dx); Recurrent sinus infections; Nasal congestionStart: 12-24-2024 End: 01-47-4706gdpmolokhqXDZYN D [facility]ITALKARENTogus [facility] Ambulatory PPGStart: 11-24-2024 End: 24-05-6247Buiwfn flowsheetMarc D Dolce DPM FACFAS Work Phone: noms [facility] AustintownStart: 11-24-2024 End: 90-19-3021Eediiq flowsheetMarc D Dolce DPM FACFAS Work Phone: noms [facility] AustintownStart: 11-24-2024 End: 63-60-7647hvpvktxiwjOMQO D DOLCENot AvailableStart: 11-24-2024 End: 48-75-3155Kmloweu encounter procedureMarc D Dolce DPM FACFAS Work Phone: noMS NMA PODComment on above:Onychomycosis (Primary Dx); Pain in right toe(s); Pain in left toe(s)Start: 10-01-2024 End: 82-15-1545nsyltjssqiIycavc A [facility] HospitalFacility:[facility] Hospitaltart: 08-25-2024 End: 72-08-8565Pqaykj flowsheetMarc D Dolce DPM FACFAS Work Phone: [facility] PODStart: 08-25-2024 End: 53-28-6126Qddbkf flowsheetMarc D Dolce DPM FACFAS Work Phone: [facility] PODStart: 08-25-2024 End: 96-47-6817Zmruqdf encounter procedureMarc D Dolce DPM FACFAS Work Phone: noMS NMA PODComment on above:Onychomycosis (Primary Dx); Pain in right toe(s); Pain in left toe(s)Start: 08-25-2024 End: 00-79-5783xikpkguyffQHWN D DOLCENot AvailableStart: 08-11-2024 End: 69-41-5617Hxjmak flowsheetAngela Lowe PA Work Phone: aNA [place]LEVUEStart: 08-11-2024 End: 44-97-8531Rhdtur flowsheetAngela Lowe PA Work Phone: aNA [place]LEVUEStart: 08-11-2024 End: 74-00-3869Zxyimu outpatient visit 25 minutesAngela Lowe PA Work Phone: aNA BELLEVUEComment on above:Seizure disorder (CMS/HCC) (Primary Dx); Gait instability; Pseudobulbar affect; Developmental delay; WeaknessStart: 08-11-2024 End: 85-62-7417ttsrwrtwrbHFYWNW LOWENot AvailableStart: 06-10-2024 End: 57-07-7413Pxkvsd flowsheetMarc D Dolce DPM FACFAS Work Phone: [facility] PODStart: 06-10-2024 End: 54-62-9310Tweqsl flowsheetMarc D Dolce DPM FACFAS Work Phone: [phone] PODStart: 06-10-2024 End: 70-69-6399Ymiocji encounter procedureMarc D Dolce DPM FACFAS Work Phone: noMS NMA PODComment on above:Onychomycosis (Primary Dx); Pain in right toe(s); Pain in left toe(s)Start: 06-10-2024 End: 76-13-5071kfzjcwbyvnXBHU D DOLCENot AvailableStart: 06-03-2024 End: 57-81-9960Iutcbr outpatient visit 25 minutesAngeamanda AMADOR Work Phone: aNA [place]ONComment on above:Seizure disorder (CMS/HCC) (Primary Dx); Autism (CMS/HCC); Developmental delay; Gait instabilityStart: 06-03-2024 End: 57-81-2741kofubrqunuXQUXWW LOWENot AvailableStart: 03-10-2024 End: 87-72-6880Uvzfut flowsheetMarc D Dolce DPM FACFAS Work Phone: [facility] PODStart: 03-10-2024 End: 99-78-4341Djoqxk flowsheetMarc D Dolce DPM FACFAS Work Phone: [phone] PODStart: 03-10-2024 End: 61-08-1270bcwinbukthFMNV D DOLCENot AvailableStart: 03-10-2024 End: 30-48-1862Gvzhst outpatient new 30 minutesMarc D Dolce DPM FACFAS Work Phone: noms NMA PODComment on above:Venous insufficiency (chronic) (peripheral) (Primary Dx); Onychomycosis; Pain in right toe(s); Pain in left toe(s); OnychocryptosisStart: 03-02-2024 End: 87-39-7684Tntrrxj encounter procedureElmer Topete DDS Work Phone: [facility] DentistryStart: 03-02-2024 End: 1993Tfigchllyu hospital visit by physicianElmer Topete DDS Work Phone: [facility] Ambulatory SurgeryStart: 03-02-2024 End: 66-92-4890xlkqzpzoosYHQHT AL-MASHNIFacility:[facility] HospitalStart: 02-26-2024 End: 16-45-1594Ovpccbbdi encounterKelly Cabello RNDelaware County Hospital Pre-Admission TestingComment on above:Pre-surgical Evaluation (DD adult dental restorations 03/02 under GA at [place]. PAT completed - anesthesia consent. PAT RN spoke to Mary (nurse), confirmed NPO, [place] address, and 0900 arrival time/)Start: 02-24-2024 End: 94-08-7732Ahqwrdvzw encounterAshleigh Kaplan [facility] Pre-Admission TestingComment on above:PAT (Anesthesia consent obtained)Start: 02-21-2024 End: 45-36-9504Ehpdgaold encounterMelbao Kaplan [facility] Pre-Admission TestingComment on above:PAT (Anesthesia consent obtained)Start: 02-19-2024 End: 59-20-5601Btlfvcm evaluation of patient and reportKelly Cabello RN [facility] Pre-Admission TestingComment on above:Pre-op evaluation (Primary Dx)Start: 02-19-2024 End: 13-28-7791Udtylubjlknis examination doneKelly Cabello RNDelaware County HospitalStart: 25-07-5430suawpybxpbQMELOFA PROVIDERFacility:[facility]ITALHealthStart: 02-19-2024 Encounter for other preprocedural examinationUNKNOWN PROVIDERThe [facility] Hospital SystemStart: 02-05-2024 End: 08-45-1868Cofwikr encounter Nisha Ferrell APRN-KEMI Work Phone: [facility] Pre-Admission TestingComment on above:NO SHOW (Primary Dx)Start: 01-21-2024 End: 84-31-8611Fkyrbx Alis AMADOR Work Phone: [facility] ROUTEStart: 01-21-2024 End: 96-99-4627Ioyekr flowsheetRadha Juan AMADOR Work Phone: noms [facility] ROUTEStart: 01-21-2024 End: 12-63-1181Vuxcjs outpatient visit 15 Adriel Martinez PERRY Work Phone: noms [facility] ROUTEComment on above:Seizure disorder (CMS/HCC) (Primary Dx); Mental deficiency (CMS/HCC); Autism (CMS/HCC); Pseudobulbar affect; Gait instabilityStart: 12-27-2023 End: 09-83-7054Wyynrmrbf to same day surgery Angelique Weber DDS Work Phone: [facility] DentistryStart: 01-09-2023 End: 89-76-3705vzqcydmcjrMDTSLL HERRINGFacility:FTMCStart: 08-29-2022 End: 53-19-9154iivduidztmUD DANIEL A HERRINGFacility:B0Anenh: 08-21-2022 End: 03-54-9639lqngpexznzFZ DOCTOR MISCFacility:Y5Xkyyq: 08-09-2022 End: 42-19-4709zwehegkblaAO DANIEL A HERRINGFacility:Q8Nwxdk: 07-21-2022 End: 05-66-3809xyworbtenmRR UMAIR TURNER .Facility:D1Irugk: 07-10-2022 End: 08-77-3932qaawukmdqjGT DOCTOR MISCFacility:Q7Gxxcx: 06-27-2022 End: 65-66-7470zsowufuvugZL NONE LISTED REQUESTFacility:O8Gvcjj: 04-30-2022 Telephone encounterMartha Coreas DMD Work Phone: [facility] HospitalComment on above:DentalStart: 04-03-2022 End: 31-60-4777anzcigalvcHF DANIEL A HERRINGFacility:U2Edups: 03-13-2022 End: 61-30-3990Vsqilan encounter procedureMartha Coreas DMD Work Phone: [facility] DentistryStart: 10-24-2021 End: 37-09-3232twfbxzdiduXP DOCTOR MISCFacility:M4Ckfau: 11-07-2016 End: 80-32-7214IghtpedcylUASCMAX PHYSICIANFacility:[facility] Procedures DateProcedureProcedure DetailPerforming ClinicianStart: 02-26-2025 End: 78-27-1295Utn spinal canal cervical w/o contrast matrlChriván Feliciano DO Work Phone: Start: 47-81-1148Fnudmrivgomn chorionic qualitative Дмитрий Feliciano DO Work Phone: Start: 03-02-2024 End: 63-31-7629Mypbf test visual color cmprsn Windy Luna MD Work Phone: Plan of Treatment DateCare ActivityDetailAuthorStart: 74-06-1410Fwmqxczs (RZV) Vaccine (1 of 2) Shingles (RZV) Vaccine (1 of 2)[facility]roHealthStart: 41-09-6818Luaru BMI Screening Adult BMI ScreeningCleveland Clinic Mentor Hospital SystemStart: 12-22-2025 End: 25-47-1206Osbiwsm encounter bognqhnlu22/02/2026 11:00 AM EDT Office Visit [facility] [address] [place] [address] Matilde Wilson, [facility] [address] [place] [address] [facility] DentistryStart: 05-25-2025 End: 45-32-3138Utjfgag encounter jehaosmxv93/03/2026 9:30 AM EST Procedure Visit [facility] [address] [place] [address] Lai Alston, DPM FACFAS [address] [place] [address] [facility] [place] [address] [facility] NMA PODStart: 03-16-2025 End: 42-94-5913Rfyeinb encounter megecgita10/25/2025 12:45 PM EST Office Visit [facility] [address] [place] [address] Philip Monroy, PA-C [address] [facility] [address] [address] [place] [address] [facility] ThroatStart: 96-79-3947Bmwlbj X-Ray: BitewingsDental X-Ray: BitewingsMetroHealthStart: 02-24-2025 End: 22-80-6321Rjicvdu encounter btfeofocl07/05/2025 9:30 AM EST Office Visit [facility] A Department of [facility] [address] [place] [address] Shanna Stoll MD [address] [place] [address] [facility], A Department of [facility] Start: 02-23-2025 End: 79-94-3206Rljebcf encounter procedureNOMS NMA PODComment on above:Arrived Start: 02-17-2025 End: 33-31-4779Btwnora encounter otidyqlxq51/29/2025 2:45 PM EDT Office Visit [facility] [address] [place] [address] Philip Monroy, PAJosse [address] [facility] [address] [place] [address] [facility] ThroatStart: 92-21-7811Xudjco Wellness Visit (Medicare)Annual Wellness Visit (Medicare)[facility]Start: 35-08-8718RL CAT/MRI W/ IV SEDATION (Not Applicable)OR CAT/MRI W/ IV SEDATION (Not Applicable)[facility] Hospitaltart: 77-05-1104DXBMF-19 Vaccine ( season) COVID-19 Vaccine ( season)[facility] HospitalStart: 12-21-2024 COVID-19 Vaccine ( season)COVID-19 Vaccine ( season) [facility]Start: 19-48-4920QTKLS-19 Vaccine ( season)COVID-19 Vaccine ( season)[facility] HealthcareStart: 13-68-5810WSJWU-19 Vaccine ( season)COVID-19 Vaccine ()[facility] Start: 70-40-5005Slktunxks vaccinationNOWV HealthcareStart: 33-82-7711Epfqpyjnl vaccinationFlu vaccine (#1)[facility] HospitalStart: 11-03-2024 End: 50-35-7276Vsacmmf encounter wieqpibzw99/15/2025 11:00 AM EDT Procedure Visit [facility] [address] [place] [address] Lai Alston, DPM FACFAS [address] [place] [address] [facility] SpecialistsStart: 47-78-4723Vakevw Oral ExamDental Oral ExamMetroHealthStart: 28-53-5190Plsvvu ProphylaxisDental ProphylaxisMetroHealthStart: 08-25-2024 End: 81-40-4168Ufnkxfd encounter procedureANA [place] CLINTONComment on above: ArrivedStart: 08-19-2024 End: 76-01-7200Fasnlsv encounter wjyfnimhh77/30/2025 11:00 AM EDT Procedure Visit [facility] [address] [place] [address] Lai Alston, DPM FACFAS [address] [place] [address] [facility] NMA PODStart: 08-11-2024 End: 20-88-6763Cakzxrp encounter procedureANA BELLEVUEComment on above:Arrived Start: 06-10-2024 End: 82-40-1013Lqxrflr encounter procedureNOMS NMA PODComment on above:Arrived Start: 05-12-2024 End: 87-83-9523Bbdtltj encounter pcilldecd74/21/2025 11:20 AM EST Office Visit [facility] [place] [facility] [address] [place] [address] Radha Martinez PA [address] [place] [address] [facility] ROUTEStart: 03-02-2024 End: 86-36-4563Wmieqjdjv to same day surgery fxeazn8803/02/2024 9:14 AM EST - 03/02/2024 10:58 AM EST Surgery [facility] [address] [place], [place] [id number] Elmer Topete [address] [place] [address] DENTAL RESTORATIONS [facility] Ambulatory SurgeryComment on above:DENTAL RESTORATIONSStart: 03-02-2024 End: 27-61-0279WPPXTC RESTORATIONSMetroHealthStart: 03-02-2024 End: 65-41-1048Hxyskjzmh to same day surgery spofmm5103/02/2024 7:40 AM EST - 03/02/2024 9:24 AM EST Surgery [facility] [address] [place] [address] Elmer Topete [address] [place] [address] DENTAL RESTORATIONS [facility] Ambulatory SurgeryComment on above:DENTAL RESTORATIONSStart: 03-02-2024 End: 29-22-3918GAOEIZ RESTORATIONSDENTAL RESTORATIONS Routine scheduled Caries 03/02/2024 7:40 AM ESTMetroHealthStart: 20-60-7798Fuuolcvpzy hospital visit by physicianUniversity [facility]als [facility] Ambulatory SurgeryStart: 03-02-2024 End: 42-48-4509Mbksyub encounter procedureMetroMetrohealth [facility] DentistryStart: 02-05-2024 End: 77-68-0053Caqugrl encounter wrxkmiijb16/16/2024 9:15 AM EDT Office Visit [facility] Pre-Admission Testing [address] [place] [address] Refugio Ferrell, SINGING WAITER OR WAITRESS-HAMMER SHOP SUPERVISOR [address] [place] [address] [facility] Pre-Admission TestingStart: 42-28-5348Aenurhtod vaccinationInfluenza Vaccine (#1)[facility] Start: 01-21-2024 End: 00-88-4431Rbwiteguaoz levelLamotrigine level Lab Routine Seizure disorder (CMS/HCC) Expected: 01/21/2024 (Approximate), Expires: 01/20/2025[facility] Work Phone: comment on above:Expected: 01/21/2024 (Approximate), Expires: 01/20/2025Start: 01-21-2024 End: 61-84-9538Ifuxiwow acid level, totalValproic acid level, total Lab Routine Seizure disorder (CMS/HCC) Expected: 01/21/2024 (Approximate), Expires: 01/20/2025[facility] HealthcareComment on above:Expected: 01/21/2024 (Approximate), Expires: 01/20/2025Start: 81-79-6544EKXWU-19 Vaccine ( season)COVID- 19 Vaccine ( season)[facility]HealthStart: 32-27-5793TWQGN-19 Vaccine ( season)COVID-19 Vaccine ( season)[facility]HealthStart: 02-79-0810Ajkmgpxdn vaccinationInfluenza Vaccine (#1)[facility]HealthStart: 26-89-4596Shupmkvym for malignant neoplasm of cervixNOMS HealthcareStart: 26-11-3566Quponiowp vaccinationInfluenza Vaccine (#1)[facility]HealthStart: 74-80-1276TLuF,Tdap and Td Vaccines (3 - Td or Tdap)DTaP,Tdap and Td Vaccines (3 - Td or Tdap)[facility] SystemStart: 55-80-2454DUYPF-19 Vaccine (3 - Booster for Pfizer series)COVID-19 Vaccine (3 - Booster for Pfizer series) [facility]HealthStart: 97-27-8903FFD Vaccine (optional start 27-45 years)HPV Vaccine (optional start 27-45 years)[facility]HealthStart: 19-65-2212EHJ Vaccines (1 - 3-dose SCDM series)HPV Vaccines (1 - 3-dose SCDM series)[facility] HealthcareStart: 90-87-3345Cdhijndix for malignant neoplasm of cervixPap SmearMetroHealthStart: 87-13-5531Ylprnp wellness visitAnnual Wellness Visit (G0438)[facility]HealthStart: 28-31-5468MRzT/Tdap/Td vaccine (1 - Tdap)DTaP/Tdap/Td vaccine (1 - Tdap)[facility] HospitalStart: 72-97-4298Lgfnkwxzu A (HAV) Vaccine (optional start 19+ years)Hepatitis A (HAV) Vaccine (optional start 19+ years)[facility]HealthStart: 26-31-8524Wdwdspxpb B vaccinationHepatitis B (HBV) Vaccine (1 of 3 - 19+ 3-dose series)[facility]HealthStart: 61-16-4082Jsdeomkjp B vaccine (1 of 3 - 19+ 3-dose series)Hepatitis B vaccine (1 of 3 - 19+ 3-dose series)[facility] Start: 96-35-2858Gldqpphoa B Vaccines (1 of 3 - 19+ 3-dose series)Hepatitis B Vaccines (1 of 3 - 19+ 3-dose series)[facility] HealthcareStart: 08-90-5939Kukuq BMI ScreeningAdult BMI ScreeningProClinton Memorial Hospital SystemStart: 26-88-3896Xzisdxlrt C screeningMetroHealthStart: 50-70-4501Jptwach + diphtheria + acellular pertussis vaccine (product)Tdap BoosterMetroHealthStart: 38-73-6212JPD screening MetroHealthStart: 26-81-7217Jewvcuq of varicella vaccinationVaricella Vaccines (1 of 2 - 13+ 2-dose series)[facility] HealthcareStart: 44-56-0575Wsqzuaxkp vaccine (1 of 2 - 13+ 2-dose series)Varicella vaccine (1 of 2 - 13+ 2-dose series)Bon [facility] HospitalStart: 40-97-1278Fflixwfepq ScreenDepression ScreenBon [facility] HospitalStart: 26-52-4990Lsovdiccop ScreeningDepression Screening [facility] SystemStart: 80-07-7308Lelrifp ScreeningTobacco Screening [facility] SystemStart: 98-34-5318LWdP/Tdap/Td Vaccines (1 - Tdap) DTaP/Tdap/Td Vaccines (1 - Tdap)[facility] HealthcareStart: 53-43-2243FCE Vaccines (1 of 1 - Standard series)MMR Vaccines (1 of 1 - Standard series)[facility] Healthcare Start: 1993Medicare Annual Wellness (AWV)Medicare Annual Wellness (AWV) NOM HealthcareDENTAL RESTORATIONSDENTAL RESTORATIONS Routine scheduled Caries [facility] End: 77-88-1167IXLXVDQK PACU OXYGEN THERAPY PROTOCOLInitiate PACU Oxygen Therapy Protocol Respiratory Care Routine Continuous until discontinued starting 02/26/2025 [facility] HospitalPharmacaComment on above:Continuous until discontinued starting 02/26/2025Oxygen therapy [Minimum Data Set]Initiate Oxygen Therapy Protocol Respiratory Care Routine As Needed until discontinued starting [facility]aca Work Phone: Comment on above:As Needed until discontinued starting 02/26/2025[facility] referralProtestant [facility]acon[facility] Work Phone: End: 78-52-1616Trjmgjmqvwo allergy panelRespiratory allergy panel Lab Routine Chronic rhinitis Other allergy, initial encounter 1 Occurrences starting 02/24/2025 until 02/24/2026[facility] Work Phone: Comment on above:1 Occurrences starting 02/24/2025 until 02/24/2026Respiratory allergy panelRespiratory allergy panel Lab Routine Chronic rhinitis Other allergy, initial encounter 02/24/2025 10:42 AM EST Lynk SystemSpirometry panelIncentive spirometry Respiratory Care Routine Every 2hr while awake until discontinued starting 02/26/2025 [facility] HospitalPharmacaComment on above:Every 2hr while awake until discontinued starting 02/26/2025 End: 51-96-3144Ruoyr , POCTUrine , POCT Point of Care Testing Routine One Time for 1 Occurrences starting 02/26/2025 until 02/26/2025on Marika [facility] Medical CenterComment on above:One Time for 1 Occurrences starting 02/26/2025 until 02/26/2025 Payers DatePayer CategoryPayerPolicy [id number]-[id number] 15-92-2030Txsloy --Stand AloneDENTAL-MEDICAID Member Subscriber Plan / Payer (Effective 2014-Present) Name: Ponce Esteves Relation to Subscriber: Self Name: Ponce Esteves Payer ID: Not on file Group ID: Not on file Type: Medicaid Address: [address] [place] [id number] [id number] 2013Medicare [facility] MEDICARE [id number]5812.100.[id number] 2.16.840.1.144486.3.579.2.18839-24-2780Rmswpud282200047 2.16840.1.035788.3.579.2.77277-88-8016Pbwzigy658358835 2.16840.1.892546.3.579.2.93394-33-9905Sdfhjpy103439549 2.16840.1.813312.3.579.2.058766-68-6237Pomurxz86498775 2.840.1.070582.3.579.2.004645-69-4542Hplozbv27955636 2.840.1.971979.3.579.2.774610-94-6845Ijegesd2784247 2.840.1.801383.3.579.2.234712-32-8750Qatjfnd2826067 2.840.1.473571.3.579.2.363501-53-7475Nbocqns4227616 2.840.1.863890.3.579.2.884106-80-9375Txzrfpg6971758 2.840.1.402882.3.579.2.753991-92-2181Wqmaoas2834430 2.840.1.314607.3.579.2.469107-75-9716Bsqvpwt520412855 2.840.1.767127.3.579.2.626680-91-3267Ctdcono122457479 2.840.1.295944.3.579.2.574437-84-4569Aclgskg507497261 2.840.1.940458.3.579.2.82279-95-2941Ppfscal452603754 2.840.1.267375.3.579.2.175 [id number] 1960Medicare 2DZ9SE4LS0055-02-4059Meslbxy6879971 2.840.1.607424.3.579.2. Ltirduq8799319 2.840.1.709343.3.579.2.40690-58-8922Bxrnuot6627126 2.840.1.947925.3.579.2.20104-39-9591Cxmsmcu6472442 2.840.1.941429.3.579.2.27619-87-5648Sczuiud2925711 2.840.1.008119.3.579.2.41214-79-2486Gzkonil5150958 2.840.1.981953.3.579.2.98529-15-8861Uzxdnkd3899707 2.840.1.850385.3.579.2.99489-46-5176Ihklayn3447592 2.840.1.954987.3.579.2.25233-78-5358Vvfjtzm54996555 2.840.1.167643.3.579.2.207HulgmmpDUH147124195560 22h82206-dj09-03yv-1978-4p87c6xz3h55Vlpycmm57321952 2.840.1.314840.3.579.2.727Wmfbocz78292304 [id number] Social History DateTypeDetailFacilityTobacco smoking status NHISTobacco smoking consumption unknownMetroHealthStart: 11-63-8535Ibb Assigned At BirthNot on fileMetroHealth Start: 10-01-2023 End: 38-93-2376Mrflfr identityNot on [facility] SystemStart: 09-03-2017 End: 94-12-1744Nbrzlmn smoking status NHISNever smoked tobaccoNOMS Healthcare Start: 09-03-2017 End: 48-44-0351Chnphzn use and exposureSmokeless tobacco non-userNOMS Healthcare Start: 10-01-2023 End: 06-78-5867Wwkudhivk beverage intakeLifetime non-drinker (finding)NOMS HealthcareStart: 10-01-2023 End: 05-30-6971Pmgaexl of Social functionCleveland Clinic Ment[facility] SystemStart: 07-06-2014 End: 71-12-9822FdcBferwo (finding)MetroHealthStart: 07-01-2019 End: 50-45-1617Pcqcathia beverage intakeCurrent non-drinker of alcohol (finding) [facility] SystemStart: 09-28-0834Ssefjdmgtk depression screening xgrrrtkxgm8AosWiefzsSandhills Regional Medical Centertart: 95-64-8021Lse Assigned At [facility] Hospitaltart: 19-77-2585Qwmqach of drug misuse behaviorHas never misused drugs (situation)[facility] Goals DatePatient GoalDesired Activity/State Clinical Notes 03-13-2022 to 02-26-2025 Note Date & LsfnMytgUrbbcugl62-45-7743 Hospital Discharge instructions* Discharge Instructions* Korina Ríos RN - 02/26/2025 1:39 PM EST No alcoholic beverages, no driving or operating machinery, no making important decisions for 24 hours. You may have a normal diet but should eat lightly day of surgery. Drink plenty of fluids. Urinate within 8 hours after surgery, if unable to urinate call your doctor documented in this encounterBon [facility] History of Present illness Narrative* Shanna Stoll MD - 02/24/2025 9:30 AM EST Images from the original note were not included. [facility] HISTORY OF PRESENT ILLNESS: Ponce is a 30 y.o. female who presents for new patient evaluation and consultation regarding recurrent sinus infections and nasal congestion. She is present today with her mother and caregiver. Shewas referred by Philip Monroy PA-C. PCP: NATHAN IYER, Nasal Congestion [...] developmental disorder Pica RUQ abdominal pain Seizures ([facility]) Sleep apnea Strabismus Thickening of wall of gallbladder Thyroid nodule LEFT Vomiting 09/03/2017 Weight loss PAST SURGICAL HISTORY: Past Surgical History: Procedure Laterality Date EGD N/A 2018 Performed by Destiney Magaña MD at [facility] WISDOM TOOTH EXTRACTION FAMILY HISTORY: Family History Problem Relation Age of Onset Hypothyroidism Father SOCIAL HISTORY: Social History Socioeconomic History Marital status: Single Tobacco Use Smoking status: Never Smokeless tobacco: Never Substance and Sexual Activity Alcohol use: No Drug use: No Sexual activity: Defer Environmental History: Allergy Environmental History Lives with: nursing home Secondhand Smoke Exposure?: No Pets: no pets Mold/mildew: No Housing Type: nursing home facility AC: Central Air Conditioning Heating: [...] for and in the presence of Shanna Stoll MD by Jennifer Wolfe (scribe). I, Shanna Stoll MD, personally performed the services described in the documentation, as scribed inmy presence, and confirm that the documentation is both accurate and complete. Shanna Stoll MD [facility] Total time spent was 45 minutes: preparing to see the patient (e.g., review of tests), obtaining and/or reviewing history, examination, counseling and educating the patient/family/caregive, orders and documenting clinical information in the electronic or other health record. documented in this encounterMedina HospitalShareRoot Karmanos Cancer CenterCmwxsu05-25-8709 Instructions* Patient Instructions* Shanna Stoll MD - 02/24/2025 9:30 AM EST Chronic [...] pending allergy test results. documented in this encounterMercy [facility]11-04-20[facility] History of Present illness Narrative* Lai [...] affect 08/06/2023 Gait instability 08/06/2023 Seizure disorder ([facility]) Mental disability 01/15/2024 Resolved [...] subungual debris. They were painful to palpation 81462 on the right 31840 on the left. VASC: DP /PT were nonpalpable bilateral. Capillary refill time < 3 seconds Digits 1-5 bilateral NEURO: [place] Cecy 5.07 monofilament was intact B/L. Vibratory [...] bedtime, Disp: , Rfl: documented in this encounterSaint John's HospitalHglsvrards76-04-9749 Evaluation note* Diagnosis Onset Date Resolution Status Admit Date Autism acuteOctober 2024 12:36pmMental deficiencyacuteOctober 2024 12:36pm Gait instabilitychronicOctober 2024 12:36pmSeizure disorderchronicOctober 2024 12:36pm [facility] Work Phone: 1(184) 955-419809-04-2025 History of Present illness Narrative* Philip Monroy PA-C - 12/24/2024 10:15 AM EDT [facility] [address] [place] [id number] SUBJECTIVE: Patient ID (1995): Ponce Esteves is [...] autism and developmental delay and resides at [facility]. Mom reports that Ponce experiences chronic nasal [...] a brain MRI to be completed at [facility] in [place] next week which has to be done [...] 2018 Performed by Destiney Magaña MD at [facility] WISDOM TOOTH EXTRACTION Family History Problem [...] [facility] - [place], [place] - [facility] - [place], [place]; Future Nasal congestion - [facility] - [place], [place] - [facility] - [place], [place]; Future - azelastine (ASTELIN) 137 mcg [...] to ensure the accuracy of this automated die attacher, some errors in die attacher may have occurred. Philip Monroy PA-C 12/24/24 1224 documented in [address]Mercy Health St. [facility]08-05-2025 History of Present illness Narrative* Lai Alston [...] subungual debris. They were painful to palpation 93930 on the right 13449 on the left. VASC: DP /PT were nonpalpable bilateral. Capillary refill time < 3 seconds Digits 1-5 bilateral NEURO: [place] Cecy 5.07 monofilament was intact B/L. Vibratory [...] 10. MAURA Salas documented in this encounterSaint John's HospitalDmyvzhbibg02-10-7713 History of Present illness Narrative* MAURA Salas [...] subungual debris. They were painful to palpation 28069 on the right 10454 on the left. VASC: DP /PT were nonpalpable bilateral. Capillary refill time < 3 seconds Digits 1-5 bilateral NEURO: [place] Cecy 5.07 monofilament was intact B/L. Vibratory [...] 10. MAURA Salas documented in this encounterSaint John's HospitalOqwssuskrz32-65-1270 History of Present illness Narrative* PERRY Vazquez [...] Review Audit Reviewed by Freida Amezquita MA (Java Flex Developer) on 08/11/24 at 1017 Medication Order Taking? Sig Documenting Provider Last Dose Status ammonium lactate (Amlactin) 12 % cream [id number] Apply 2 application topically Daily Patient not taking: Reported on 06/03/2024 Historical ProviderMD Active busPIRone (Buspar) 30 MG tablet [id number] Take 30 mg by mouth in the morning and 30 mg in the evening and 30 mg before bedtime. Historical ProviderMD Active cloNIDine (Catapres) 0.2 MG tablet [id number] Take 0.2 mg by mouth in the morning and 0.2 mg at noon and 0.2 mg in the evening and 0.2 mg before bedtime. Real Schneider MD Active divalproex (Depakote) 125 MG EC tablet [id number] Take 500 mg by mouth in the morning and 500 mg in the evening and 500 mg before bedtime. Real Schneider MD Active divalproex (Depakote) 125 MG EC tablet [id number] Take 1,000 mg by mouth at bedtime Do not crush, chew, or split. Historical MD Jennie Active famotidine (Pepcid) 40 MG tablet [id number] Take 40 mg by mouth Daily Historical MD Jennie Active guanFACINE (Tenex) 2 MG tablet [id number] Take 2 mg by mouth in the morning and 2 mg before bedtime. Real Schneider MD Active lamoTRIgine (LaMICtal) 100 MG tablet [id number] Take 100 mg by mouth at bedtime Historical MD Jennie Active lamoTRIgine (LaMICtal) 150 MG tablet [id number] Take 150 mg by mouth in the morning. Real Schneider MD Active levothyroxine (Synthroid, Levoxyl) 200 MCG tablet [id number] Take 200 mcg by mouth in the morning. Take before meals. Historical ProviderMD Active levothyroxine (Synthroid, Levoxyl) 25 MCG tablet [id number] Take 25 mcg by mouth in the morning. Takebefore meals. Real Schneider MD Active loratadine (Claritin) 10 MG tablet [id number] Take 10 mg by mouth Daily Historical ProviderMD Active Melatonin 3 MG tablet dispersible [id number] Take 3 mg by mouth at bedtime Historical ProviderMD Active norethindrone-ethinyl estradiol (Ortho-Novum, Nortrel) 1-35 MG-MCG tablet [id number] Take 1 tablet bymouth Daily Historical ProviderMD Active paliperidone (Invega) 3 MG 24 hr tablet [id number] Take 3 mg by mouth in the morning and 3 mg before bedtime. Do not crush, chew, or split.. Historical ProviderMD Active polyethylene glycol, PEG, 3350 (Miralax) 17 g packet [id number] Take 17 g by mouth Daily Historical ProviderMD Active QUEtiapine (SEROquel) 200 MG tablet [id number] Take 200 mg by mouth at bedtime Historical MD Jennie Active QUEtiapine (SEROquel) 400 MG tablet [id number] Take 400 mg by mouth at bedtime Historical ProviderMD Active HPI History obtained from caregiver report from [facility] Caregiver from [facility] here with patient today SEIZURE -on lamictal and depakote -denies any missed doses -denies any recent seizure -[facility] continues to use a wheelchair -she is [...] triceps, wrist extensors, wrist extensors, wrist flexor, senior education specialist strength 5/5. LUE Strength deltoid, biceps, triceps, wrist extensors, wrist extensors, wrist flexor, senior education specialist strength 5/5. RLE Strength illopsoas, quadriceps, tibialis [...] is note from PT and staff at [facility] that the patient has had continued loss [...] or CTA she would require sedation per [facility]. She continues with balance disturbance and worsening strength per PT at [facility]. Blood work 09/12/2023: Valproic acid level 93.9, [...] Progress notes and PT notes reviewed from [facility]. We will look into local options for [...] up after imaging. documented in this encounterSaint John's HospitalZwbyfncsxu51-68-4958 History of Present illness Narrative* Lai Alston [...] Past Medical History: Diagnosis Date Anxiety Autism ([facility]) Disturbance of salivary secretion [...] subungual debris. They were painful to palpation 63632 on the right 43565 on the left. VASC: DP /PT were nonpalpable bilateral. Capillary refill time < 3 seconds Digits 1-5 bilateral NEURO: [place] Ceyc 5.07 monofilament was intact B/L. Vibratory sensation [...] 10. MAURA Salas documented in this encounterSaint John's HospitalJfijpglquc56-33-7555 History of Present illness Narrative* PERRY Vazquez [...] Review Audit Reviewed by Krista Wu MA (Java Flex Developer) on 06/03/24 at 0955 Medication Order Taking? Sig Documenting Provider Last Dose Status ammonium lactate (Amlactin) 12 % cream [id number] Apply 2 application topically Daily Patient not taking: Reported on 06/03/2024 Historical MD Jennie Active busPIRone (Buspar) 30 MG tablet [id number] Take 30 mg by mouth in the morning and 30 mg in the evening and 30 mg before bedtime. Historical MD Jennie Active cloNIDine (Catapres) 0.2 MG tablet [id number] Take 0.2 mg by mouth in the morning and 0.2 mg at noon and 0.2 mg in the evening and 0.2 mg before bedtime. Historical MD Jennie Active divalproex (Depakote) 125 MG EC tablet [id number] Take 500 mg by mouth in the morning and 500 mg in the evening and 500 mg before bedtime. Real Schneider MD Active divalproex (Depakote) 125 MG EC tablet [id number] Take 1,000 mg by mouth at bedtime Do not crush, chew, or split. Real Schneider MD Active famotidine (Pepcid) 40 MG tablet [id number] Take 40 mg by mouth Daily Real Schneider MD Active guanFACINE (Tenex) 2 MG tablet [id number] Take 2 mg by mouth in the morning and 2 mg before bedtime. Real Schneider MD Active lamoTRIgine (LaMICtal) 100 MG tablet [id number] Take 100 mg by mouth at bedtime Real Schneider MD Active lamoTRIgine (LaMICtal) 150 MG tablet [id number] Take 150 mg by mouth in the morning. Real Schneider MD Active levothyroxine (Synthroid, Levoxyl) 200 MCG tablet [id number] Take 200 mcg by mouth in the morning. Take before meals. Real Schneider MD Active levothyroxine (Synthroid, Levoxyl) 25 MCG tablet [id number] Take 25 mcg by mouth in the morning. Takebefore meals. Historical ProviderMD Active loratadine (Claritin) 10 MG tablet [id number] Take 10 mg by mouth Daily Historical ProviderMD Active Melatonin 3 MG tablet dispersible [id number] Take 3 mg by mouth at bedtime Historical ProviderMD Active norethindrone-ethinyl estradiol (Ortho-Novum, Nortrel) 1-35 MG-MCG tablet [id number] Take 1 tablet bymouth Daily Historical ProviderMD Active paliperidone (Invega) 3 MG 24 hr tablet [id number] Take 3 mg by mouth in the morning and 3 mg before bedtime. Do not crush, chew, or split.. Historical ProviderMD Active polyethylene glycol, PEG, 3350 (Miralax) 17 g packet [id number] Take 17 g by mouth Daily Historical ProviderMD Active QUEtiapine (SEROquel) 200 MG tablet [id number] Take 200 mg by mouth at bedtime Historical ProviderMD Active QUEtiapine (SEROquel) 400 MG tablet [id number] Take 400 mg by mouth at bedtime Historical ProviderMD Active HPI History obtained from caregiver report from [facility] Caregiver from [facility] here with patient today SEIZURE -on lamictal and depakote -denies any missed doses -denies any recent seizure -[facility] continues to use a wheelchair for long [...] triceps, wrist extensors, wrist extensors, wrist flexor, senior education specialist strength 5/5. LUE Strength deltoid, biceps, triceps, wrist extensors, wrist extensors, wrist flexor, senior education specialist strength 5/5. RLE Strength illopsoas, quadriceps, tibialis [...] or CTA she would require sedation per [facility]. She had two recent falls 07/17/23and 08/02/23. She was evaluated at [facility] ER. Lamictal dose was recently decreased, [...] seizure prevention Continue with fall precautions at [facility] and assisted transfers and supervision/assistance with ambulation to avoid falls. She is at a high risk of trauma and debility associated with falls. Follow up 2 months documented in this encounterSaint John's HospitalLkhycsvuem97-49-8800 History of Present illness Narrative* Lai Alston [...] History: Diagnosis Date Anxiety Autism ([facility]) Disturbance of salivary secretion [...] subungual debris. They were painful to palpation 30537 on the right 80729 on the left. VASC: DP /PT were nonpalpable bilateral. Capillary refill time < 3 seconds Digits 1-5 bilateral NEURO: [place] Cecy 5.07 monofilament was intact B/L. Vibratory [...] nails. MAURA Salas documented in this encounterSaint John's HospitalYuxketgcuq79-32-8954 Hospital Discharge instructions* Discharge Instructions* Rehana Aguillon RN - 03/02/2024 12:22 PM EST PERIOPERATIVE DISCHARGE/HOME-GOING INSTRUCTIONS ANESTHESIA - GENERAL (ADULT) If a problem arises, you may contact your physician by calling [phone] and asking for the resident macaroni press operator for Dental service. Special Care Needs: [...] very uncomfortable and can t urinate, call [phone] or come to the emergency room. A [...] the home going instructions. documented in this [id number] Miscellaneous Notes* Brief Operative Note - Paula Contreras DDS - 03/02/2024 10:26 AM EST Brief Operative Note [facility] OR 3 Ponce Esteves 29 year old female Surgical Contact Serial Number: [id number] Preoperative Diagnosis: Pre-op Diagnosis * Caries [K02.9] Postoperative Diagnosis: * Caries [K02.9] Procedures: Full mouth x-ray [72868] Prophylaxis [57554] Restorations [87950] Floride application [59656] Surgeon(s): Surgeon(s): Elmer Topete DDS Staff: Dorr Operator Nurse: Trudi Padilla Numerical Control Drill Press Operator: Paula Contreras DDS; Melquiades Christie DDS Anesthesia: General Anesthesiologist: Milton Luna MD COMMUNITY HEALTH EDUCATION COORDINATOR: Adalgisa Smith APRN-DARSHAN B2B Outside Sales Representative: Dayanna Preciado MD Specimen(s): * No specimens [...] were discussed with the patient and/or legal manufacturing sales representative. The risks, benefits and alternatives were reviewed. Questions regarding blood transfusions were answered. The patient /or the patient s legal manufacturing sales representative agree with the plan for transfusion of blood and/or blood components. * OP Note - Paula Contreras DDS - 03/01/2024 6:14 PM EST Surgical Case Number Data Unavailable Operating Room Data Unavailable Preoperative Diagnosis(es): Caries [k02.9] Surgeon: Dr. Topete Auto Technician Surgeon: Melquiades Arias DDS - Paula [...] the treatment plan included the following: Composite moravian on tooth#7 surface ML. Amalgam restorations on [...] 03/02/2024 11:56 AM EST documented in this [id number] Surgery Postoperative evaluation and management note* Brief Operative Note - Paula Contreras DDS - 03/02/2024 10:26 AM EST Brief Operative Note PHE OR 3 Ponce Esteves 29 year old female Surgical Contact Serial Number: [id number] Preoperative Diagnosis: Pre-op Diagnosis * Caries [K02.9] Postoperative Diagnosis: * Caries [K02.9] Procedures: Full mouth x-ray [66557] Prophylaxis [38067] Restorations [52717] Floride application [43824] Surgeon(s): Surgeon(s): Elmer Topete DDS Staff: Dorr Operator Nurse: Trudi Padilla Numerical Control Drill Press Operator: Paula Contreras DDS; Melquiades Christie DDS Anesthesia: General Anesthesiologist: Milton Luna MD COMMUNITY HEALTH EDUCATION COORDINATOR: Adalgisa Smith APRN-DARSHAN B2B Outside Sales Representative: Dayanna Preciado MD Specimen(s): * No specimens [...] Topete DDS at 03/02/2024 11:55 AM EST [id number] History and physical note* Melquiades Christie DDS - 03/02/2024 9:38 AM EST Images from the original note were not included. Surgical History and Physical [facility] Ambulatory Surgery [address] [place] [address] Name: Ponce Esteves : 1995 29 year old CSN: [id number] Attending: Elmer Topete DDS Date of Admission: 03/02/2024 8:38 AM Room/Bed: [facility] OR/NONE Planned Procedure: Procedure(s): DENTAL RESTORATIONS HPI: [...] surgical history indicates: EXTRACTION, TOOTH (09/15/2014) Procedure: [place] teeth; Surgeon: Bradley Goodwin DDS; Location: PERIOPERATIVE [...] or any previous visit (from the past 86451 hours). BMP (last 3 years, up to [...] Topete DDS at 03/02/2024 11:48 AM EST [facility] Work Phone: 1(925) 866-634111-11-2024 NoteSurgical History and Physical [facility] Ambulatory Surgery [address] [place] [address] Name: Ponce Esteves : 1995 29 year old CSN: [id number] Attending: Elmer Topete DDS Date of Admission: 03/02/2024 8:38 AM Room/Bed: [facility] OR/NONE Planned Procedure: Procedure(s): DENTAL RESTORATIONS HPI: [...] surgical history indicates: EXTRACTION, TOOTH (09/15/2014) Procedure: [place] teeth; Surgeon: Bradley Goodwin DDS; Location: PERIOPERATIVE [...] or any previous visit (from the past 14327 hours). BMP (last 3 years, up to [...] DDS. Melquiades Stewart DDS 03/02/24 9:38 AMThe Apps GeniusBracketr [id number] History and physical note* Melquiades Christie DDS [...] Topete DDS at 03/02/2024 11:48 AM EST [id number] NoteSurgical Attestation: I have reviewed the patient's History and Physical Examination. I have personally seen and evaluated the patient, repeating cabrera portions. There is no significant interval change. Surgery is still indicated. Yes Consent reviewed and signed by patient/family: Yes Operative site verified and marked: site verified but not marked as not anatomically possible Melquiades Stewart DDS 03/02/2024 9:38 AMThe [employer] [id number] Progress note* Blood Attestation - Milton Luna MD - 03/02/2024 9:16 AM EST Blood Attestation: ATTESTATION OF INFORMED CONSENT FOR BLOOD: The transfusion of blood and/or blood components were discussed with the patient and/or legal manufacturing sales representative. The risks, benefits and alternatives were reviewed. Questions regarding blood transfusions were answered. The patient /or the patient s legal manufacturing sales representative agree with the plan for transfusion of blood and/or blood components. [employer] Work Phone: 1(248) 984-803111-11-2024 History of Present illness Narrative* Elmer Mcpherson DDS - 03/02/2024 8:12 AM EST ----- Saturday, March 02, 2024 at 11:38:59 AM ----- ----- Provider: [id number] iMsael Rebolledo DDS -- Clinic: [facility] ----- [place] notes, pt is ready for tx [place]. X-Rays look good, few cavities found and confirmed clinically. restos completed. OP Note by Paula Contreras DDS at 03/01/2024 6:14 PM Author: Paula Contreras DDS Service: Dentistry Author Type: Resident Filed: 03/02/2024 11:56 AM Date of Service: 03/01/2024 6:14 PM Note Type: OP Note Status: Cosign Needed Biosolids Management Technician: Paula Contreras DDS (Resident) Cosign Required: Yes Expand All Collapse All Surgical Case Number Data Unavailable Operating Room Data Unavailable Preoperative Diagnosis(es): Caries [k02.9] Surgeon: Dr. Topete Auto Technician Surgeon: Melquiades Arias DDS - Paula [...] the treatment plan included the following: Composite moravian on tooth#7 surface ML. Amalgam restorations on [...] 2024 at 11:57:17 AM ----- ----- Provider: [id number] Misael Rebolledo DDS -- Clinic: [facility] ----- documented in this [id number] Surgery Surgical operation note* OP Note - Paula Contreras DDS - 03/01/2024 6:14 PM EST Surgical Case Number Data Unavailable Operating Room Data Unavailable Preoperative Diagnosis(es): Caries [k02.9] Surgeon: Dr. Topete Auto Technician Surgeon: Melquiades Arias DDS - Paula [...] the treatment plan included the following: Composite moravian on tooth#7 surface ML. Amalgam restorations on [...] Topete DDS at 03/02/2024 11:56 AM EST [id number] NoteSurgical Attestation: I have reviewed the patient's History and Physical Examination. I have personally seen and evaluated the patient, repeating cabrera portions. There is no significant interval change. Surgery is still indicated. Yes Consent reviewed and signed by patient/family: Yes Operative site verified and marked: Verified but not marked Paula Contreras DDS 03/01/2024 6:10 PMTOhio[facility]11-04-[facility] Telephone encounter Note* Telephone Encounter - Ashleigh Kaplan RN - 02/24/2024 9:07 AM EST Anesthesia consent obtained and scanned into [email or web address]. Scheduled for surgery 03/02/2024. [id number] Miscellaneous Notes* Telephone Encounter - Ashleigh Kaplan RN - 02/24/2024 9:07 AM EST Anesthesia consent obtained and scanned into [email or web address]. Scheduled for surgery 03/02/2024. documented in this [id number] Telephone encounter Note* Telephone Encounter - Ashleigh Kaplan RN - 02/21/2024 12:22 PM EDT Anesthesia consent obtained and scanned into [email or web address]. Scheduled for surgery 03/02/2024. [id number] Miscellaneous Notes* Telephone Encounter - Ashleigh Kaplan RN - 02/21/2024 12:22 PM EDT Anesthesia consent obtained and scanned into [facility]. Scheduled for surgery 03/02/2024. documented in this [id number] Instructions* Discharge Instructions* Kelly Cabello RN - [...] otherwise contacted. ? [facility] one business day prior to [...] Your Surgery/Procedure booklet or [facility] CenterQuarri [email or web address]/surgery if you have questions. Contact the Pre-Admission Testing department at [phone] or your surgeon's office with any questions [...] a car, cab, shared ride service, or Apps Geniusro-van. You will not be allowed to drive yourself home or travel home alone. Your surgery may be cancelled if you do not have a ride. A responsible adult must stay with you after surgery. Please call [employer] if you need transportation assistance or have concerns about going home [phone]. ? PLEASE BE ON TIME. A late arrival may result in the cancellation/ delay of your surgery. Thank you for choosing [facility]; it is our pleasure to care for you documented in this [id number] Evaluation note* PAT Call History - Kelly Cabello, RN - 02/19/2024 11:55 AM EDT Telephone History Ponce Esteves, [id number] 02/19/2024 Patient was identified by name and date of via Jerman, caregiver. Needs: Physical, Neck Circumference, BHCG, and ED on DOS. Note: OSH records/labs scanned to communications media professor. If the patient becomes ill prior to procedure or surgery, they are to call their provider or surgeon's office directly. 29 year old 136.6 lbs 5' 4 Date of Surgery: 03/02 Surgeon: Yoselyn Type of Surgery: DENTAL RESTORATIONS HISTORY OF PRESENT ILLNESS: telephone history for the upcoming surgery at [facility], [address] [place], enter through the [place] entrance doors. 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 Fluticasone Propionate (FLONASE NASAL) Molina into each nostril. Selenium (SELENIMIN ORAL) Take [...] otherwise contacted. ? Expect a call from [facility] one business day prior to surgery for [...] your Preparing for Your Surgery/Procedure booklet or [email or web address] if you have questions. Contact the Pre-Admission Testing department at [phone] or your surgeon's office with any questions [...] stay with you after surgery. Please call [employer] if you need transportation assistance or have concerns about going home [phone]. ? PLEASE BE ON TIME. A late arrival may result in the cancellation/ delay of your surgery. Thank you for choosing [facility]; it is our pleasure to care for you Kelly Cabello RN Time Spent Performing this Telephone History: 48 with follow-up [place] [facility]: [id number] Miscellaneous Notes* PAT Call History - Kelly Cabello RN - 02/19/2024 11:55 AM EDT Telephone History Ponce Esteves, [id number] 02/19/2024 Patient was identified by name and date of via Jerman, caregiver. Needs: Physical, Neck Circumference, BHCG, and ED on DOS. If the patient becomes ill prior to procedure or surgery, they are tocall their provider or surgeon's office directly. 29 year old 136.6 lbs 5' 4 Date of Surgery: 03/02 Surgeon: Yoselyn Type of Surgery: DENTAL RESTORATIONS HISTORY OF PRESENT ILLNESS: telephone history for the upcoming surgery at [facility], [address] [place], [facility] doors. 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 Fluticasone Propionate (FLONASE NASAL) Molina into each nostril. Selenium (SELENIMIN ORAL) Take [...] otherwise contacted. ? Expect a call from [facility] one business day prior to surgery for [...] questions. Contact the Pre-Admission Testing department at [phone] or your surgeon's office with any questions [...] stay with you after surgery. Please call [facility] Social Work if you need transportation assistance or have concerns about going home [phone]. ? PLEASE BE ON TIME. A late arrival may result in the cancellation/ delay of your surgery. Thank you for choosing [facility]; it is our pleasure to care for you Kelly Cabello RN Time Spent Performing this Telephone History: 48 with follow-up [facility]: documented in this [id number] Miscellaneous Notes* PAT Call History - Kelly Cabello RN - 02/19/2024 11:55 AM EDT Telephone History Ponce Sonu, [id number] 02/19/2024 Patient was identified by name and date of via Jerman, caregiver. Needs: Physical, Neck Circumference, BHCG, and ED on DOS. Note: OSH records/labs scanned to communications media professor. If the patient becomes ill prior to procedure or surgery, they are to call their provider or surgeon's office directly. 29 year old 136.6 lbs 5' 4 Date of Surgery: 03/02 Surgeon: Yoselyn Type of Surgery: DENTAL RESTORATIONS HISTORY OF PRESENT ILLNESS: telephone history for the upcoming surgery at [facility], [address] [place], [facility] doors. STOP-BANG Row Name 02/19/24 9012 History of sleep apnea? Yes NO PSG [...] (+) teeth problems missing Endo (+) hypothyroidism oracle pl sql developer - negative ROS Neuro/Psych (+) bipolar disorder, seizures, intellectual disability Cardiovascular - negative ROS GI/Hepatic/Renal (+) GERD Heme/Other - negative ROS PAST SURGICAL HISTORY: Past Surgical History: Procedure Laterality Date EUA, ORAL 09/15/2014 Procedure: EUA, ORAL; Surgeon: Bradley Goodwin DDS; Location: PERIOPERATIVE SERVICES; Service: Oral EXTRACTION, TOOTH Bilateral 09/15/2014 Procedure: [place] teeth; Surgeon: Bradley Goodwin DDS; Location: PERIOPERATIVE [...] Take by mouth. Fluticasone Propionate (FLONASE NASAL) Molina into each nostril. Selenium (SELENIMIN ORAL) Take [...] otherwise contacted. ? Expect a call from [facility] one business day prior to surgery for [...] your Preparing for Your Surgery/Procedure booklet or [email or web address] if you have questions. Contact the Pre-Admission Testing department at [phone] or your surgeon's office with any questions [...] stay with you after surgery. Please call [facility] Social Work if you need transportation assistance or have concerns about going home [phone]. ? PLEASE BE ON TIME. A late arrival may result in the cancellation/ delay of your surgery. Thank you for choosing [facility]; it is our pleasure to care for you Kelly Cabello RN Time Spent Performing this Telephone History: 48 with follow-up [facility]: documented in this [id number] History and physical note* Melquiades Christie DDS - 03/02/2024 9:38 AM EST Images from the original note were not included. Surgical History and Physical [facility] Ambulatory Surgery [address] [address] Name: Ponce Esteves : 1995 29 year old CSN: [id number] Attending: Elmer Topete DDS Date of Admission: 03/02/2024 8:38 AM Room/Bed: [facility] OR/NONE Planned Procedure: Procedure(s): DENTAL RESTORATIONS HPI: [...] surgical history indicates: EXTRACTION, TOOTH (09/15/2014) Procedure: [place] teeth; Surgeon: Bradley Goodwin DDS; Location: PERIOPERATIVE [...] or any previous visit (from the past 50040 hours). BMP (last 3 years, up to [...] 03/02/2024 11:48 AM EST documented in this [id number] Miscellaneous Notes* Telephone Encounter - Liliana Song - 04/30/2022 3:03 PM EST Bina from [facility] calling in. She wanted to know where the pt was at on the OR wait list. E-mail sent to Connie E-mail sent 04/30/22 documented in this [id number] Telephone encounter Note* Telephone Encounter - Liliana Song - 04/30/2022 3:03 PM EST Bina from [facility] calling in. She wanted to know where the pt was at on the OR wait list. E-mail sent to Connie E-mail sent 04/30/22 [id number] History of Present illness Narrative* Martha Coreas DMD - 03/13/2022 10:06 AM EST ----- Sunday, March 13, 2022 at 11:58:40 AM ----- ----- Provider: [id number] Coreas DMD -- Clinic: [place] ----- OR [...] available. Legal Guardian: Toshia Esteves Phone #: [phone] NOTE: Patient had a hard time leaning her head back, but allowed me to look. Patient not indicatingshe is in any pain. #8 is very discolored - most likely will need RCT treatment. Gingiva very red and irritated. Caregiver did not know who patient's guardian was or contact information, looked it up in [facility]. Next Visit: OR documented in [facility] encounter[facility]roHealthEvaluation note* Diagnosis Caries- Primary Unspecified dental caries [facility]* Diagnosis Caries- Primary Unspecified dental caries Caries- Primary Unspecified dental caries [facility]* Diagnosis Seizure disorder ([facility]/HCC)- Primary Unspecified epilepsy without mention of intractable epilepsy Mental deficiency ([facility]) Unspecified mental retardation Autism ([facility]) Autistic disorder, current or active [...] mention of intractable epilepsy Autism ([facility]) Autistic disorder, current or active [...] [facility] noteNo assessment information available [facility] Work Phone: Evaluation note* Diagnosis Onychomycosis- Primary Dermatophytosis of nail Pain in right toe(s) Pain in left toe(s) documented in this encounter [facility] HealthcareEvaluation note* Diagnosis Other allergy, initial encounter- Primary Chronic rhinitis documented in this [facility]* Diagnosis Unsteady gait Abnormality of gait Seizure disorder (HCC) Unspecified epilepsy without mention of intractable epilepsy documented in this encounter [facility]* Diagnosis Unsteady gait Abnormality of gait Seizure disorder (HCC) Unspecified epilepsy without mention of intractable epilepsy documented in this encounter [facility] HealthInstructionsNot on filedocumented in this encounter [facility] SystemReason for referral (narrative)No reason for referral information availableDayton [facility]opathic [facility] Work Phone: Reason for visit Narrative* Auth/Cert (Routine) SpecialtyDiagnoses / ProceduresReferred By ContactReferred To Contact Ambulatory Surgery Diagnoses Caries Caries [K02.9] Procedures INTERDENTAL FIXATION. UNLISTED PROCEDURE, DENTOALVEOLAR STRUCTURES DENTAL RESTORATIONS Elmer Topete, DDS [address] [place] [address] Phone: tel: fax: [employer] [address] [place] [phone] Phone: tel: Referral IDStatusReasonStart DateExpiration DateVisits RequestedVisits [id number] [facility] for visit Narrative* Imaging (Routine) - Pending Review SpecialtyDiagnoses / ProceduresReferred By ContactReferred To ContactRadiology Diagnoses Unsteady gait Seizure disorder (HCC) Procedures MRI CERVICAL SPINE WO CONTRAST Дмитрий Feliciano M, DO [address] [place] [address] Phone: tel: fax: Referral IDStatusReasonStart DateExpiration DateVisits RequestedVisits [id number] [facility] Narrative* Imaging (Routine) - Pending ReviewSpecialtyDiagnoses / ProceduresReferred By ContactReferred To Contact Radiology Diagnoses Unsteady gait Seizure disorder (HCC) Procedures MRI BRAIN W WO CONTRAST Дмитрий Feliciano, DO [address] [place] [address] Phone: tel: fax: Referral IDStatusArabellaInwood DateExpiration DateVisits RequestedVisits [id number] [id number]/ [facility] Summary Purpose Family History No Family History Records FoundNo Family History Records FoundNo Family History Records FoundNo Family History Records FoundNo Family History Records FoundNo Family History Records FoundNo Family History Records FoundNo Family History Records FoundNo Family History Records Found Advance Directives TypeDate RecordedPatient RepresentativeExplanationLiving Will09/03/2017 4:36 PM [facility] Advance Directive Response Recorded Date/ Time Advance Directives No December 12:12pm TypeDate RecordedPatient RepresentativeExplanationLiving Will09/03/2017 4:36 PM [facility]GAL [facility] Reason for Referral SpecialtyDiagnoses / ProceduresReferred By ContactReferred To Contact Anesthesiology Diagnoses Caries Elmer Topete, DDS [address] [id number] [facility] PRE ADMISSION TESTING [address] [place] [address] Referral IDStatusLibra DateExpiration DateVisits RequestedVisits [id number]/ Scheduling Instructions Your surgical team will reach [...] and content) DATE CREATED AUTHOR 10/16/2017 [facility] DATE CREATED AUTHOR AUTHOR'S ORGANIZ ATION 09/02/2022 [facility] DATE CREATED AUTHOR AUTHOR'S ORGANIZ ATION 01/11/2023 [facility] DATE CREATED AUTHOR AUTHOR'S ORGANIZ ATION 03/10/2024 [facility] DATE CREATED AUTHOR AUTHOR'S ORGANIZ ATION 12/26/2024 [facility] DATE CREATED AUTHOR AUTHOR'S ORGANIZ ATION 01/22/2025 [facility] DATE CREATED AUTHOR AUTHOR'S ORGANIZ ATION 02/24/2025 [facility] DATE CREATED AUTHOR AUTHOR'S ORGANIZ ATION 02/26/2025 [facility] DATE CREATED AUTHOR AUTHOR'S ORGANIZ ATION 03/01/2025 [facility] Reason for Visit (unrecogniz ed section and content) ReasonOnset FnxyQiknyuxdZakmfq76/09/2023ReasonCommentsSeizuresReasonOnset Date SwalzkdiUMP47/01/2024nesthesia consent obtainedReasonOnset DateCommentsPAT 02/24/2024nesthesia consent obtainedReasonOnset DateCommentsPre-surgical Lecmwtruyv89/06/2024D adult dental restorations 03/02 under [place] at [place]. PAT completed - anesthesia consent. ZOHRA RN spoke to Mary (nurse), confirmed NPO, [place] address, and 0900 arrival timeReasonCommentsToenail ProblemRT grt nail fungalReasonCommentsToenail CareNon DM nail careReasonCommentsSinus ProblemNasal CongestionSpecialtyDiagnoses / ProceduresReferred By ContactReferred To Contact Otolaryngology Diagnoses Recurrent sinus infections Nasal congestion [place], [place] [address] [facility] [address] [place] [address], [address] [place] [address] Phone: tel: fax: Referral IDStatusReasonStart DateExpiration DateVisits RequestedVisits [id number] Review Specialty Services Required /[id number] PatientRed puffy eyes, runny noses, more likely year roundSpecialtyDiagnoses / ProceduresReferred By ContactReferred To ContactAllergy and Immunology Diagnoses Recurrent sinus infections Nasal congestion Philip Monroy, TAMIKO [address] [facility] [address] [place] [address] Phone: tel: fax: [facility] Allergy [facility] Immunology, A Department of [address] [place] [phone] Phone: tel: fax: Referral IDStatusReasonStart DateExpiration DateVisits RequestedVisits [id number] Review Care Teams (unrecognized sec tion and content) Team MemberRelationshipSpecialtyStart DateEnd Date Unallocated, May Schneider MD [address] [place] [address] PCP - GeneralFamily Medicine07/09/23 Kris Mcguire MD [address] [place] [address] Referring PhysicianNeurology07/09/23Team MemberRelationshipSpecialtyStart DateEnd Date Unallocated, May Schneider MD [address] [place], [place] [address] [address] PCP - GeneralFamily Medicine07/09/23 Kirs Mcguire MD [address] [place] [address] Referring PhysicianNeurology07/09/23Team MemberRelationshipSpecialtyStart DateEnd Date Nathan Iyer MD [address] [place] [address] PCP - Generalmily Pvlcefxs42/19/24 Kris Mcguire MD [address] [place] [address] Referring PhysicianNeurology07/09/23Team MemberRelationshipSpecialtyStart End Date Nathan Iyer MD [address] [place] [address] [facility] - [facility] Iuvbbzke42/19/24 Kris Mcguire MD [address] [place] [address] Referring PhysicianNeurology07/09/23Team MemberRelationshipSpecialtyStart End Nathan Iyer MD [address] [place] [address] PCP - GeneralSaint [facility] Fjyduxlo47/19/24 Kris Mcguire MD [address] [place] [address] Referring PhysicianNeurology07/09/23Team MemberRelationshipSpecialtyStart End Date Nathan Iyer MD [address] [place] [address] PCP - GeneralFamily Pmvmhonz89/19/24 Kris Mcguire MD [address] [place] [address] Referring PhysicianNeurology07/09/23Team MemberRelationshipSpecialtyStart DateEnd Date Nathan Iyer MD [address] [place] [address] PCP - GeneralSaint [facility] Tqvozllu65/19/24 Kris Mcguire MD [address] [id number] Referring PhysicianNeurology07/09/23Team MemberRelationshipSpecialtyStart End Nathan Iyer MD [address] [place] [address] PCP - GeneralFami Rpkjgmca97/19/24 Kris Mcguire MD Referring PhysicianNeurology07/09/23Team MemberRelationshipSpecialtyStart End Nathan Iyer MD [address] [place] [address] PCP - GeneralFami Qcsgsjnx08/19/24 Kris Mcguire MD Referring PhysicianNeurology07/09/23Team MemberRelationshipSpecialtyStart DateEnd Date Nathan Iyer MD [email or web address] [place] [address] PCP - GeneralMary Greeley Medical Centerly Rqxkqlaf50/19/24 Kris Mcguire MD Referring PhysicianNeurology07/09/23Team MemberRelationshipSpecialtyStart DateEnd Date Nathan Iyer MD [email or web address] [place], [place] [address] PCP - GeneralSaint [facility] Obuxiuoh67/19/24 Kris Mcguire MD Referring PhysicianNeurology07/09/23Team MemberRelationshipSpecialtyStart DateEnd Date Nathan Iyer DO [address] [place] [address] PCP - GeneralMary Greeley Medical Centerly Medicine08/23/17 Team Status: Active Member Role Status [...] Active Start: January 27, 2025 End: January 27hriván Feliciano DOAttending ProviderActiveStart: January 27, 2025 End: January 27, 2025Team MemberRelationshipSpecialtyStart DateEnd Date Nathan Iyer MD [email or web address] [place] [address] PCP - GeneralFamily Vtdquzus84/19/24 Kris Mcguire MD Referring PhysicianNeurology07/09/23Team MemberRelationshipSpecialtyStart DateEnd Date Nathan Iyer MD [email or web address] [place], [place] [address] PCP - GeneralFamily Ivmxyiky05/19/24 Kris Mcguire MD Referring PhysicianNeurology07/09/23Team MemberRelationshipSpecialtyStart DateEnd Date Nathan Iyer DO [address] [place] [address] PCP - GeneralFamily Medicine08/23/17Team MemberRelationshipSpecialtyStart DateEnd Date Nathan Iyer MD [address] [place] [address] PCP - GeneralFamily Wdxlfefm65/7/25Team MemberRelationshipSpecialtyStart DateEnd Date Nathan Iyer MD [address] [place] [phone] PCP - GeneralFamily Reacoysn72/7/25 PRN Active and Recently Administ ered Medications (unrecognized section and content) Medication Order bacitracin 500 UNIT/GM ointment (CANCELED) PRN, Starting on Sat03/02/24 at 1037, Until Sat03/02/24 at 1156, Intra-op * 1037 (Given - Provider: Melquiades Stewart, DDS - Comment: Applied to [...] BE BASED ON THE PRIMARY CLINICAL RECORDS. [employer] provides no warranty or guarantee of the accuracy or completeness of information in this document.
--- OUTSIDE RECORDS SUMMARY | 2025-03-07 09:20 | XMS_ITS | Clinical Summary ---
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 Name Role Phone Christos Iyerel Luana RENEE Primary Care Provider Social History Tobacco UseTypesPacks/DayYears UsedDateSmoking Tobacco: Never Assessed CommentsUnknownSex and Gender InformationValueDate RecordedSex Assigned at Not on fileLegal VafBpdgxm25/02/2012 8:23 AM ESTGender IdentityNot on fileSexual OrientationNot on file Plan of Treatment Health MaintenanceDue DateLast DoneCommentsAnxiety Pvgiocuct96/12/2011Depression Aanlxlkhb39/12/2011HIV Uyzjshjku24/12/2011Hepatitis C Amqvwzaft58/12/2011 DTaP,Tdap,Td Vaccine (1 - Tdap)01/02/2012Hepatitis B Vaccine (1 of 3 - 19+ 3- dose series)01/02/2012Cervical Cancer Yzivbkfqz28/12/2014HPV Vaccine (1 - 3-dose SCDM series)01/02/2020Covid-19 Vaccine ( - 2024- season)2024Influenza Vaccine (#1)2024 [address] [place] [address] Care Teams Team MemberRelationshipSpecialtyStart DateEnd Date Nathan Iyer DO PCP - GeneralAust[facility] Medicine09/03/12
--- OUTSIDE RECORDS SUMMARY | 2025-03-07 09:21 | XMS_ITS | Clinical Summary ---
Author Organization [facility] Address [address], [address] [place] [address] Care Team Providers Care [place] Name Role Phone Nathan Iyer MD Primary Care Provider + [phone] Allergies Active AllergyReactionsCriticalityNoted DateCommentsLinaclotideNausea And LgbztjfzFew17/06/2159SukghigxswmtFauyurl45/06/2025 rash Medications MedicationSigDispense QuantityRefillsLast FilledStart DateEnd DateStatus azelastine (OPTIVAR) 0.05 % ophthalmic solution Place 1 drop into both eyes 2 times dailyActive azelastine (ASTELIN) 0.1 % nasal spray 2 sprays by Nasal route 2 times daily Use in each nostril as directedActive busPIRone (BUSPAR) 30 MG tablet Take 30 mg by mouth 3 times daily 8am,4pm,8pmActive polyethylene glycol (GLYCOLAX) 17 g packet Take 1 packet by mouth daily 8amActive cloNIDine (CATAPRES) 0.1 MG tablet Take 1 tablet by mouth 2 times daily 8am, 4pmActive cloNIDine (CATAPRES) 0.2 MG tablet Take 1 tablet by mouth 3 times daily 8am,4pm,8pmActive cyproheptadine (PERIACTIN) 4 MG tablet Take 1 tablet by mouth daily 8pmActive divalproex (DEPAKOTE) [address] tablet Take 1 tablet by mouth 3 times daily 8am, 4pm, HSActive divalproex (DEPAKOTE) [address] tablet Take 1 tablet by mouth 3 times daily 8 tabs 8am, 4tabs 4pm,8 tabs HSActive famotidine (PEPCID) 40 MG tablet Take 1 tablet by mouth every morningActive Fluticasone Furoate 50 MCG/ACT AEPB Inhale 2 sprays into the lungs every morningActive guanFACINE HCl 2 MG TABS Take 2 mg by mouth in the morning and 2 mg in the evening.Active lamoTRIgine (LAMICTAL) 100 MG tablet Take 1 tablet by mouth at bedtimeActive lamoTRIgine (LAMICTAL) 150 MG tablet Take 1 tablet by mouth every morningActive polyethyl glycol-propyl glycol 0.4-0.3 % (SYSTANE) 0.4-0.3 % ophthalmic solution 1 drop in the morning and 1 drop in the evening. Affected eye.Active melatonin 3 MG TABS tablet Take 1 tablet by mouth at bedtimeActive mometasone (ASMANEX) 50 MCG/ACT AERO inhaler Inhale 2 puffs into the lungs every morningActive norethindrone-ethinyl estradiol (NORTREL 1/35, 21,) 1-35 MG-MCG per tablet Take 1 tablet by mouth every morningActive paliperidone (INVEGA) 3 MG extended release tablet Take 1 tablet by mouth 3 times daily 8am, 4pm, 8pmActive QUEtiapine (SEROQUEL) 400 MG tablet Take 1 tablet by mouth at bedtimeActive levothyroxine (SYNTHROID) 200 MCG tablet Take 1 tablet by mouth Daily 4pmActive levothyroxine (SYNTHROID) 25 MCG tablet Take 1 tablet by mouth Daily 4pmActive acetaminophen (TYLENOL) 325 MG tablet Take 2 tablets by mouth every 4 hours as needed for Pain (temp)Active bisacodyl (DULCOLAX) [address] 1 suppository rectally daily as needed for ConstipationActive guaiFENesin 400 MG tablet Take 1 tablet by mouth 2 times daily as needed for CoughActive ibuprofen (ADVIL;MOTRIN) 600 MG tablet Take 1 tablet by mouth every 6 hours as needed for PainActive mometasone (ELOCON) 0.1 % ointment Apply topically 2 times daily as needed M-FActive mupirocin (BACTROBAN) 2 % ointment Apply topically 2 times daily as needed Apply topically 3 times daily.Active ondansetron (ZOFRAN) 4 MG tablet Take 1 tablet by mouth every 6 hours as needed for Nausea or VomitingActive guaiFENesin (ROBITUSSIN) 100 MG/5ML liquid Take 10 mLs by mouth every 4 hours as needed for CoughActive senna (SENOKOT) 8.6 MG tablet Take 2 tablets by mouth 2 times daily as needed for ConstipationActive Hydrocerin (EUCERIN) CREA cream Apply topically every morning Upper armsActive Benzocaine (SOLARCAINE EX) Apply topically every 4 hours as needed (sunburn)Active Vitamins A & D (VITAMIN A & D) ointment Apply topically 2 times daily as needed for Dry Skin Apply topically as needed skin rednessActive Encounters DateTypeDepartmentCare KbchLthvntcowsf13/07/2025 11:21 AM ESTAnesthesia Event [address] [address] Jose Lawrence MD Trost, Christina, APRN - CRNA 02/26/2025 11:07 AM ESTAnesthesia Event [address] [address] Sandy Luna 02/26/2025 9:46 AM EST - 02/28/2025 11:59 PM ESTHospital Encounter [address] [address] Unsteady gait; Seizure disorder (HCC) Discharge Disposition: Home or Self Care02/26/2025 9:46 AM EST - 02/28/2025 11:59 PM ESTHospital Encounter [address] [address] Unsteady gait; Seizure disorder (HCC) Discharge Disposition: Home or Self Care01/21/2025Transcribe Orders [facility] [address] [place] [address] Ramos Feliciano DO Seizure disorder (HCC) (Primary Dx); Unsteady gaitfrom Last 3 Months Family History Medical HistoryRelationNameCommentsNo Known ProblemsFatherNo Known Problems MotherRelationNameStatusCommentsFatherAliveMotherAlive Social History Tobacco UseTypesPacks/DayYears UsedDateSmoking Tobacco: Never Assessed Interpersonal Safety Domain Source: IP Abuse ScreeningAnswerDate Recorded Physical pjkcmGycjbu26/07/2025Verbal zuijwWwtrnd31/07/2025Emotional abuseDenies 02/26/2025Financial llwokTabgof96/07/2025Sexual hlzouZriftp78/07/2025 CommentsUnknownSex and Gender InformationValueDate RecordedSex Assigned at Not on fileLegal LxkGxopog21/22/2025 9:46 AM EDTGender IdentityNot on fileSexual OrientationNot on file Last Filed Vital Signs Vital SignReadingTime TakenCommentsBlood Agtxmzlz876/7002/26/2025 1:45 PM EST Bazpe502302/26/2025 1:45 PM HZLZtxqqxahieq84 ??C (96.8 ??F)02/26/2025 12:47 PM EST Respiratory Eeec520902/26/2025 1:45 PM ESTOxygen Zkrjufmuxk75%02/26/2025 1:45 PM ESTInhaled Oxygen Concentration--Stppno19.3 kg (139 lb 9.6 oz)02/25/2025 3:10 PM CTHPxsbso572.6 cm (5' 4 )02/25/2025 3:10 PM ESTBody Mass Index23.9602/25/2025 3:10 PM EST Plan of Treatment Health MaintenanceDue DateLast DoneCommentsDepression Tqgccl2401/01/2005Varicella vaccine (1 of 2 - 13+ 2-dose series)2006HIV cinekn3001/02/2008Hepatitis C eediwe7301/01/2011DTaP/Tdap/Td vaccine (1 - Tdap)01/02/2012Hepatitis B vaccine (1 of 3 - 19+ 3-dose series)01/02/2012Pap smear2014Cervical cancer screen 2023HPV (without or with Pap)2023Flu vaccine (#1)11/20/2024OVID-19 Vaccine ( - season)2024nnual Wellness Visit (Medicare)01/21/2025 HPV vaccine (No [...] to complete this topic Procedures Procedure NamePriorityDate/TimeAssociated DiagnosisCommentsMRI CERVICAL SPINE WO VDMKTTWXCmnzfaq42/07/2025 12:30 PM EST Unsteady gait Seizure disorder (HCC) MRI BRAIN W WO XMRJFKIKGmwkdno90/07/2025 12:29 PM EST Unsteady gait Seizure disorder (HCC) HCG, SERUM, HYHLVNXCCECVYYG91/07/2025 10:39 AM EST from Last 3 Months Results * MRI CERVICAL SPINE WO CONTRAST [...] 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 ??Oqks-qb-gcyurmrq degenerative disc disease is noted at C5-C6. 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 Mjgr-cv-reeonaxc degenerative discdisease is noted at C5-C6. No [...] level. 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 ??Ahjd-yr-qaausmuc degenerative disc disease is noted at C5-C6. 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 Bwma-op-bpwsvfif degenerative discdisease is noted at C5-C6. No [...] atthe C5-C6 disc level. Authorizing ProviderResult TypeResult StatusRamos Feliciano [facility] MRI ORDERABLESFinal Result * (ABNORMAL) HCG, SERUM, QUALITATIVE (02/26/2025 10:39 AM EST)ComponentValueRef RangeTest MethodAnalysis TimePerformed AtPathologist SignaturePreg, Serum POSITIVE(A)RLOVBZSC75/07/2025 10:39 AM ESTMERCY LABORATORIESComment: ? If HCG results do not concur with clinical observations, additional testing to confirm result is recommended. ??This test is not labeled for use as a tumor marker. ? [employer] has confirmed the use of plasma for this test. This has not been cleared or approved by the U.S. Food and Drug Administration. ??The FDA has determined that such clearance is not necessary. Specimen (Source)Anatomical Location / LateralityCollection Method / Volume Collection TimeReceived TimeBloodBLOOD SPECIMEN / Rtxqzeh7502/26/2025 10:39 AM EST 02/26/2025 10:39 AM EST Narrative Authorizing ProviderResult TypeResult StatusRamos Feliciano DOCHEMISTRY ORDERABLESFinal ResultPerforming OrganizationAddressCity/State/ZIP CodePhone Number [employer] [address] [place] [address], [facility] [phone] from Last 3 Months Insurance * Guarantor: Barbra Ascencio TypeRelation to PatientDate of BirthPhone Billing AddressPersonal/UmedvsZfmx1995 [facility] [address] [place] [address] Care Teams Team MemberRelationshipSpecialtyStart DateEnd Nathan Iyer MD [address] [place] [address] PCP - GeneralFamily Tjjymred24/7/25
--- OUTSIDE RECORDS SUMMARY | 2025-03-09 06:49 | XMS_ITS | CCD ---
Author Organization [facility] Care Team Providers Care Manager Golf Name Role Phone PHYSICIAN, DEFAULT Unavailable Unavailable [...] Unavailable IYER, DR NATHAN Craft Admitting Unavailable IEYR, DR NATHAN Craft Attending Unavailable IYER, DR [...] Noms Provider Primary Care Provi roselyn Kris Mgcuire MD Unavailable Unallocated MD, Noms Provider Primary Care Jaspreet roselyn ELMER TOPETE Attending Unavailable PROVIDER, UNKNOWN Admitting Unavailable PROVIDER, UNKNOWN Admitting Unavailable PROVIDER, UNKNOWN Attending Unavailable ELMER TOPETE Admitting Unavailable ELMER TOPETE Attending Unavailable Iyer Nathan OLSON Primary Care Provider Maynor OLSON, Kris Unavailable Maynor OLSON, Kris Unavailable [phone] Iyer DONathan A Primary Care Provider PHILIP MONROY Attending Unavailable IYERNATHAN Referring Unavailable IYER, NATHAN Craft Primary Care Unavailable Iyer DO Nathan A Primary Care Provider Duvall ENGRAVING OPERATOR-GYNECOLOGICAL ASSISTANT-C, Kenisha Mata Attending Provider Kenisha Duvall Attending Unavailable Iyer, Nathan Craft Primary Care Unavailable Duvall, Kenisha E Admitting Unavailable Duvall, Kenisha E Admitting Unavailable Duvall, Kenisha E Attending Unavailable Iyer, Nathan Craft Primary Care Unavailable Iyer, Nathan A Primary Care Unavailable Eduarda De Anda Admitting Unavailable Eduarda De Anda Attending Unavailable Дмитрий Feliciano DO Attending Provider [phone] Nathan Iyer MD Primary Care Provider [phone] EDUARDA DE ANDA Attending Unavailable DOLCE, LAI [...] le Iyer Nathan OLSON Primary Care Provider [phone] Allergies Allergy ClassificationReported Allergen(s)Allergy TypeDate of OnsetReaction(s) Facility (20 sources)Ethosuximide; Translations: [ETHOSUXIMIDE]Drug Onxgius15-01-5825[facility] (1 source)AllopurinolDrug Gstsshv74-65-5316[facility] (1 source)EthosuximideDrug Erldobm54-17-5010Xmx [facility] (20 sources)linaclotide; Translations: [LINACLOTIDE]Drug Zwulyel52-34-3073 Unknown ReactionNOGA Healthcare (4 sources)EthosuximideDrug Ckijung39-52-0536Tuxi, ItchingPremier Health [facility] (4 sources)linaclotideDrug Ylrzgtu28-89-9700Beqmkf And VomitingPremier Health [facility] (1 source)EthosuximideDrug Gzzfdcx35-90-7844LehoeukmgSt. Mary[facility] (1 source)linaclotideDrug Ltjtrpb62-81-4553OfzzpdoupSt. Mary'S Medical Center Repository Medications Current Medications MedicationDrug Class(es)DatesSig (Normalized)Sig (Original)acetaminophen 325 mg oral capsule (15 sources)Start: 63-49-4190hkwb 2 capsules by mouth every four to [...] mouth. Active Acetaminophen / guaiFENesin (3 sources)Start: 85-78-6113pqoa 1 tablet by mouth twice dailyAcetaminophen- Guaifenesin 325-200 mg tablet Active 1 TAB PO Twice daily December 28, 2024 12:00amComplies with drug therapyStart: 09-55-8712cxqs 1 tablet by mouth twice dailyazelastine hydrochloride 0.5 mg/ml ophthalmic solution (7 sources)Histamine-1 Receptor AntagonistStart: 91-02-4258rbdu 1 drop(s) into the eye(s) twice dailyazelastine (OPTIVAR) 0.05 % ophthalmic solution Administer 1 drop to both eyes 2 (two) times a day.6 mL 12 02/24/2025 ActiveStart: 47-66-6951vpax 2 spray(s) nasal route in the morningazelastine [...] 10 mg rectal suppository (7 sources)Stimulant LaxativeStart: 91-55-5121Fsyjesjjs (Dulcolax (Bisacodyl)) 10 mg suppository Active 10 MG [place] Daily as needed for constipationSept2024 12:00am Complies with drug therapybusPIRone hydrochloride 30 mg oral tablet (20 sources)Start: 78-92-6221fvrp 1 tablet by mouth three times dailyBuspirone 30 mg tablet Active 30 MG PO Three times daily December 28, 2024 12:00am Complies with drug therapyStart: 17-40-6497sdoIAEema (BUSPAR) 10 mg tablet 1 tablet (10 mg total) in the morning and 1 tablet (10 mg total) atnoon and 1 tablet (10 mg total) before bedtime. 12/19/2017 Activetake 1 tablet by mouth once dailybusPIRone (BUSPAR) 30 MG tablet Take 30 mg by mouth daily. Active chlorhexidine gluconate 1.2 mg/ml mouthwash (12 sources)Start: 62-57-8231cerw 15 mL by mouth twice dailychlorhexidine (PERIDEX) 0.12 % oral solution Take 15 mL by mouth 2 times daily. 1 Bottle 0 09/15/2014 Tiwuuk43 hr cloNIDine hydrochloride 0.1 mg extended release oral tablet (20 sources)Central alpha-2 Adrenergic AgonistStart: 53-11-6800vgsk 1 tablet by mouth three times dailyClonidine Hcl 0.2 mg tablet Active 0.2 MG PO Three times daily December 28, 2024 12:00am Complieswith drug therapyStart: 62-11-9801njbf 1 tablet by mouth twice dailyClonidine Hcl [...] hydrochloride 4 mg oral tablet (5 sources)Start: 01-93-0725ogtk 1 tablet by mouth once daily at bedtime Cyproheptadine 4 mg tablet Active 4 MG PO Daily at bedtime December 28, 2024 12:00am Complies with drug therapydiazePAM 5 mg oral tablet (8 sources)BenzodiazepineStart: 12-34-6549hlanoVVE (Valium) 5 MG tablet Indications: Gait instability , Developmental delay , Seizure disorder (HCC) Take 1 tablet (5 mg) by mouth 1 time for 1 dose 30 minutes prior to MRI 1 tablet 08/11/2024 ActiveStart: 03-80-0916zhiasSHJ (VALIUM) 5 mg tablet 08/06/2017 ActivediphenhydrAMINE hydrochloride [...] total) before bedtime. ActiveNorethindrone-Ethin Estradiol (20 sources)EstrogenStart: 16-75-5661ebnr 0.93125841068035531 ug by mouth once dailyNorethindrone-Ethin Estradiol (Nortrel 1/35 (21)) 1-35 mg-mcg (21) tablet Active 1 TAB PO Daily December 28, 2024 12:00am Complies with drug therapy Start: 58-50-4207wton 0.21908266219407076 ug by mouth once dailyStart: 98-05-3234RHTOMSH 1/35, 28, 1-35 mg-mcg per tablet 10/07/2017 Activetake 1 tablet by mouth once daily in the morning, then take 0.05630531550466458-39 tablets by mouthoncenorethindrone-ethinyl estradiol (NORTREL 1/35, 21,) 1-35 MG- MCG per tablet Take 1 tablet by mouth every morning Activefamotidine 40 mg oral tablet (20 sources)Histamine-2 Receptor AntagonistStart: 26-94-7686cxqp 1 tablet by mouth once dailyFamotidine 40 mg tablet Active 40 MG PO Daily December 28, 2024 12:00am Complies with drug therapyfluticasone propionate 0.05 mg/actuat metered dose nasal spray (17 sources)CorticosteroidStart: 39-49-3463yeag 2 spray(s) nasal route in the morningfluticasone propionate (FLONASE) 50 mcg/actuation nasal spray Administer 2 sprays into each nostrilin the morning. 16 g 12 02/24/2025 Activetake 2 spray(s) by inhalation once daily in the morningFluticasone Furoate 50 MCG/ACT AEPB Inhale 2 sprays into the lungs every morning Active End: 61-36-0810nerb 1 spray(s) nasal route once dailyfluticasone (FLONASE) 50 mcg/actuation nasal spray Administer 1 spray into each nostril daily. 12/24/2024 Discontinued (Alternate therapy)Fluticasone Propionate (FLONASE NASAL) [place] into each nostril. SuspendedFluticasone Propionate (FLONASE NASAL) [place] into each nostril. ActiveFluticasone Propionate (FLONASE NASAL) [place] into each nostril. 0 ActiveguaiFENesin 20 mg/ml oral solution (11 sources)Start: 32-45-0354cpul 200 mg by mouth every four hours [...] oral tablet (20 sources)Central alpha-2 Adrenergic AgonistStart: 91-50-3721krhi 1 tablet by mouth twice dailyGuanfacine 2 [...] mg oral tablet (20 sources)Nonsteroidal Anti-inflammatory DrugStart: 65-84-7009vmrzgiql lactate 120 mg/ml topical cream (20 sources)Start: 76-38-5995khsviamg lactate (AMLACTIN) 12 % cream 07/08/2017 Activeammonium lactate (Amlactin) 12 % cream Apply 2 application topically Daily Activelactobacillus acidophilus 16 mg oral capsule (13 sources)Lactobacillus (ACIDOPHILUS) CAPS Take by mouth. ActivelamoTRIgine 100 mg oral tablet (20 sources)Mood Stabilizer, Anti-epileptic AgentStart: 18-52-7793ssov 1 tablet by mouth once daily at bedtimeLamotrigine (Lamictal) 100 mg tablet Active 100 MG PO Daily at bedtime December 28, 2024 12:00am Complies with drug therapy Start: 05-26-2812ssyp 1 tablet by mouth once dailyLamotrigine (Lamictal) 150 mg tablet Active 150 MG PO Daily December 28, 2024 12:00am Complies with drug therapyStart: 93-86-3160xmfbIYHgbax (LaMICtal XR) 300 mg tablet extended release 24hr 10/10/2017 Activelanolin 0.155 mg/mg / petrolatum 0.535 mg/mg topical ointment (2 sources)Vitamins A & D (VITAMIN A & D) ointment Apply topically 2 times daily as needed for Dry Skin Apply topically as needed skin redness Active lansoprazole 30 mg delayed release oral capsule (2 sources)Proton Pump InhibitorStart: 26-36-0739miursozexdfx (PREVACID) 30 mg capsule 01/23/2018 Activelevothyroxine sodium 0.2 mg oral tablet (20 sources)l-ThyroxineStart: 41-62-1271rhxm 1 tablet by mouth once daily Levothyroxine [...] Activemelatonin 3 mg oral capsule (20 sources)Start: 99-28-8157slyo 1 capsule by mouth once daily at [...] mg/actuat metered dose nasal spray (6 sources)CorticosteroidStart: 66-69-1408pywz 2 spray(s) nasal route in the morningmometasone [...] topical ointment (7 sources)RNA Synthetase Inhibitor AntibacterialStart: 35-36-7304Bolpsumbn (Centany) 2 % ointment Active 1 APPLIC TOPICAL Twice daily December 28, 2024 12:00am Complies with drug therapymupirocin (BACTROBAN) 2 % ointment Apply topically 2 times daily as needed Apply topically 3 times daily. Activemupirocin (BACTROBAN) 2 % ointment Apply 1 Application topically 3 (three) times a day. Activeondansetron 4 mg disintegrating oral tablet (8 sources)Serotonin-3 Receptor AntagonistStart: 33-26-0502Affte: 03-02-2024 End: 29-11-0366kwvl 4 mg intravenously once as needed for [...] hours as needed for nausea or vomiting. Fknqor64 hr paliperidone 3 mg extended release oral tablet (20 sources)Atypical AntipsychoticStart: 23-67-5424osvy 1 tablet by mouth three times dailyPaliperidone [...] release oral tablet (2 sources)Proton Pump InhibitorStart: 48-45-6539kokmgcwjczwv (PROTONIX) 40 mg EC tablet 02/27/2018 Activepetrolatum 610 mg/ml topical cream (2 sources)Hydrocerin (EUCERIN) CREA cream Apply topically every morning Upper arms Activepolyethylene glycol 3350 65256 mg powder for oral solution (20 sources)Osmotic LaxativeStart: 67-22-9470Wdhwxoumoyqo Glycol 3350 (Clearlax) 17 gram powder in [...] 400 mg oral tablet (20 sources)Atypical AntipsychoticStart: 02-36-0370xwis 1 tablet by mouth once daily at [...] 1 mg oral tablet (4 sources)Atypical AntipsychoticStart: 20-77-6094itbxgqzTCEW (RisperDAL) 0.5 mg tablet 10/10/2017 ActiveStart: 53-29-9399pnxaavtFELE (RisperDAL) 1 mg tablet 10/10/2017 ActiveSelenium (SELENIMIN ORAL) (13 sources)Selenium (SELENIMIN ORAL) Take by mouth. SuspendedSelenium (SELENIMIN ORAL) Take by mouth. ActiveSelenium (SELENIMIN ORAL) Take by mouth. 0 Activesennosides, shelter 8.6 mg oral tablet (20 sources)Start: 71-10-6633Fcpxbxqblu (Black-Draught Lax-Senna) 8.6 mg tablet Active 17.2 [...] oral tablet (20 sources)Mood Stabilizer, Anti-epileptic AgentStart: 57-84-0190Gnxkroenxo (Depakote) 125 mg tablet,delayed release (DR/EC) Active 1000 MG PO Three times daily January 27, 2025 1:21pm Complies with drug therapyStart: 62-88-5934jxir 4 tablets by mouth once dailyStart: 12-28-2024 End: 89-65-3888Rdtdhjhxrb (Depakote) 125 mg tablet,delayed release (DR/EC) Discontinued 1000 MG PO Twice daily December 28, 2024 12:00am January 27, 2025 1:23pmStart: 84-57-3913yjrjpablsn sprinkle (DEPAKOTE SPRINKLE) 125 mg capsule 10/10/2017 [...] injection 13 mL (1 source)Start: 02-26-2025 End: 52-33-1166krrn 1 dose intravenously once13 mL, IntraVENous, IMG [...] sources)Allergic disposition; Translations: [Other allergy, initial encounter]Onset: 549452-33-8852QlnwbyyjUfasimj disorders (20 sources)Anxiety disorder; Translations: [Anxiety disorder, unspecified] Onset: 498165-87-4425UqvinhuFwtynolw, dementia, and amnestic and other cognitive disorders (20 sources)Pseudobulbar affect; Translations: [Pseudobulbar affect]Onset: 435916-01-1255PiauverQaulljftdgvsi disorders (20 sources)Intellectual disability; Translations: [Unspecified intellectual disabilities]Onset: 278301-02-8059BgblildRftbfjbaf usually diagnosed in infancy, childhood, or adolescence (20 sources)Autism spectrum disorder; Translations: [Autistic disorder]Onset: 928219-85-6345InojzaoA Codes: Fall (1 source)Fall on same level from slipping, tripping and stumbling with subsequent striking against unspecified object, initial encounter; Translations: [FALL SAME LVL SLIP STRK UNS OBJ INT]Onset: 49-59-5845JcxbsjhpQkndhdcw; convulsions (20 sources)Epilepsy, unspecified, not intractable, without status epilepticus; Translations: [Seizure disorder]Onset: 85-16-2741SeqtmcqRqgbcmau; convulsions (2 sources)Seizure tyfctsoa06-48-6856ZwddqkxgYqgivbrwgewac symptoms and ill- defined conditions (1 source)Unspecified urinary incontinence; Translations: [UNSPECIFIED URINARY INCONTINENCE]Onset: 56-04-1383CbvaoxdFtvohweuqmnby symptoms and ill-defined conditions (4 sources)Anuria and oliguria; Translations: [ANURIA AND OLIGURIA]Onset: 18-72-1822SphoisfrFxdbqgh and fatigue (2 sources)Asthenia; Translations: [Weakness]33-61-7621HzhocuklStxoyuiqla disorders (1 source)Hormone replacement therapy; Translations: [HORMONE REPLACEMENT THERAPY]Onset: 15-14-3260TrqeekzdNpozezz (6 sources)Onychomycosis; Translations: [Tinea unguium]01-74-9958JjpfqnxlPend wounds of head; neck; and trunk (4 sources)Laceration without foreign body of other part of head, initial encounter; Translations: [LAC W/O FBOTH PART HEAD INIT ENC]Onset: 07-21-2022 EpisodicOther aftercare (5 sources)Other terminal press operator (current) drug therapy; Translations: [OTH LONG-TERM CURRENT DRUG THERAPY]Onset: 19-39-9895KretgxwgEnejl connective tissue disease (6 sources)Pain of toe of right foot; Translations: [Pain in right toe(s)] 95-17-7305BymaapfjGjqgl connective tissue disease (6 sources)Pain of toe of left foot; Translations: [Pain in left toe(s)] 08-54-1386NumwlzfgIraxj diseases of veins and lymphatics (2 sources)Peripheral venous insufficiency; Translations: [Venous insufficiency (chronic) (peripheral)]98-67-1629OnrmplmnBymvq nervous system disorders (20 sources)Abnormal gait; Translations: [Unsteadiness on feet]Onset: 08-06-2023 28-39-4155NdrukzuwAyxxl nervous system disorders (2 sources)Unsteadiness on feet; Translations: [Unsteadiness on feet]Onset: 76-31-5252QuwxbyscPquyz skin disorders (2 sources)Ingrowing nail; Translations: [Ingrowing nail]58-60-0939ElwmvvipCwddi upper respiratory disease (1 source)Chronic rhinitis; Translations: [Chronic rhinitis]18-09-1729Kdjinuh Other upper respiratory disease (1 source)Chronic rhinitis; Translations: [Chronic rhinitis]Onset: 02-24-2025 ChronicOther upper respiratory disease (5 sources)Nasal congestion; Translations: [Nasal congestion]Onset: 12-24-2024 33-10-7481TuenkbhmZgytl upper respiratory disease (1 source)Nasal congestion; Translations: [Nasal congestion]Onset: 12-24-2024 EpisodicOther upper respiratory infections (6 sources)Recurrent sinusitis; Translations: [Chronic sinusitis, unspecified] Onset: 614809-46-2921RiyiqglXksrdennnfh injury; contusion (1 source)Contusion of other part of head, initial encounter; Translations: [CONTUS OTH PRT HEAD INITIAL ENCNTR]Onset: 94-82-0516ZxaoggkvTpetuym disorders (17 sources)Hypothyroidism, unspecified; Translations: [Autoimmune thyroiditis] Onset: 54-77-3174XiyvregPhekvmlcwmlw (1 source)NO RCNK47-53-0493Oawcepicgejn (1 source)Sinus ProblemOnset: 33-73-5360Ykovzyelhcno (2 sources)Please arrange for MRI with General Anesthesia, need to have an MRI suite that can accommodate general anesthesiaUnclassified (1 source)New PatientOnset: 02-24-2025 Past or Other Problems Problem ClassificationProblemDateDocumented DateEpisodic/ChronicBiliary tract disease (6 sources)Finding of measures of gallbladder; Translations: [Other specified diseases of gallbladder]Onset: 09-03-2017 Resolved: 630702-95-2923EaadthptBckzjapjon associated with dizziness or vertigo (20 sources)Dizziness; Translations: [Dizziness and giddiness]Onset: 07-03-2018 51-75-1447SpskdamvWshjblkxu of teeth and jaw (13 sources)Dental caries; Translations: [Dental caries, unspecified]Onset: 12-27-2023 Resolved: 586919-71-1872OhbftdheMbtr disorders (2 sources)Mood disordersOnset: Nausea and vomiting (2 sources)Vomiting; Translations: [Vomiting, unspecified]Onset: 09-03-2017 22-12-2749HqlaovqcFtika gastrointestinal disorders (2 sources)Dysphagia; Translations: [Dysphagia, unspecified]Onset: 09-03-2017 16-68-1437EzqetbbfWpdvy nutritional; endocrine; and metabolic disorders (6 sources)Developmental delay; Translations: [Unspecified lack of expected normal physiological development in childhood]Onset: EpisodicOther nutritional; endocrine; and metabolic disorders (2 sources)Weight decreased; Translations: [Abnormal weight loss]Onset: 09-03-2017 Resolved: 819507-54-7557MxandfcbGqswuqxl codes; unclassified (20 sources)Personal history of other specified conditions; Translations: [Personal history of other specified diseases]Onset: Episodic Results Test NameValueInterpretationReference RangeFacilityMRI BRAIN W WO CONTRASTon 68-65-5866SUV BRAIN W WO CONTRASTEXAMINATION: MRI OF THE [...] 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 Gbtc-bh-igfyymtg degenerative disc disease is noted at C5-C6. 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 Fpst-jh-xqfelyut degenerative disc disease is noted at C5-C6. [...] by: Mario Blankenship MD 02/28/25 Final resultNormalMercy Valleycare Medical CenterNo Panel Informationon 55-35-6323Zfjnclij volume loss, advanced for patient's stated age. 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 Pulk-va-zwwxgbis degenerative disc disease is noted at C5-C6. No acute fracture or traumatic subluxation is identified. The cervical cord is normal in size and signal intensity. At C5-C6 there is a disc osteophyte complex, ligamentum flavum thickening, and facet hypertrophy resulting in severe narrowing of the thecal sac and both neural foramen. 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 Xbxr-ii-sxgfmicr degenerative disc disease is noted at C5-C6. [...] foraminal stenosis at the C5-C6 disc level. FindlineNo Panel InformationOrdered By: Mario Blankenship on 02-28-2025 [facility] SocialKaty Work Phone: HCG Screen, Bloodon 22-97-6817ZLT Screen, Blood PositiveAbnormalNEGMercy Valleycare Medical CenterComment on above:Result Comment: If HCG results do not concur with clinical observations, additional testing to confirm result is recommended. This test is not labeled for use as a tumor marker. [employer] ([facility]) has confirmed the use of plasma for this test. This has not been cleared or approved by the U.S. Food and Drug Administration. The FDA has determined that such clearance is not necessary.Performed By: #### HCG #### [employer] ([facility]) [address] [place] [address] History Professor: Jake Cabral MDHCG, SERUM, QUALITATIVEon 74-16-1666SOZ ( test) QlPositiveAbnormalNEGATIVERiverside Regional Medical CenterComment on above: If HCG results do not concur with clinical observations, additional testing to confirm result is recommended. This test is not labeled for use as a tumor marker. [facility] has confirmed the use of plasma for this test. This has not been cleared or approved by the U.S. Food and Drug Administration. The FDA has determined that such clearance is not necessary. Interpretation and review of laboratory resultsAbnormalSpotsylvania Regional Medical Center Brain WO and W contrast Rajni 22-31-4665Rgqxhmhgg Study observation (narrative)[facility] Cervical spine WO contraston 47-24-6374Quzduvfud Study observation (narrative)[facility] CenterRESPIRATORY ALLERGY PANELon 03-15-1805MMKEBOFJHG ALTERNATA<^0.10Normal <0.10ProPremier Health Atrium Medical CenterComment on above:Order Comment: Class 0: Normal Class [...] high level sensitization.Performed By: #### RAP #### [facility] (TT) [address] [place] [address] VIRASPERGILLUS FUMIGATUS<^0.10Normal<0.10ProOhioHealth Marion General Hospital on above:Order Comment: Class 0: Normal Class [...] high level sensitization.Performed By: #### RAP #### [facility] ([facility]) [address] [place] [address] VIRBERMUDA GRASS<^0.10Normal<0.10ProMer[facility] Health [facility] Comment on above:Order Comment: Class [...] high level sensitization.Performed By: #### RAP #### [facility] ([facility]) [address] [place] [address] VIRBOX ELDER<^0.10Normal<0.10ProPremier Health Atrium Medical CenterComment on above:Order Comment: Class 0: Normal Class [...] high level sensitization.Performed By: #### RAP #### [facility] ([facility]) [address] [place] [address] VIRCAT DANDER<^0.10Normal<0.10ProPremier Health Atrium Medical CenterComment on above:Order Comment: Class 0: Normal Class [...] high level sensitization.Performed By: #### RAP #### [facility] ([facility]) [address] [place] [address] VIRCLADOSPORIUM HERB<^0.10Normal<0.10ProPremier Health Atrium Medical Center Comment on above:Order Comment: Class 0: Normal [...] high level sensitization.Performed By: #### RAP #### [facility] ([facility]) [address] [place] [address] VIRCOCKLEBUR<^0.10Normal<0.10ProPremier Health Atrium Medical CenterComment on above:Order Comment: Class 0: Normal Class [...] high level sensitization.Performed By: #### RAP #### [facility] ([facility]) [address] [place] [address] VIRCOCKROACH<^0.10Normal<0.10ProMercy Health St[facility] HospitalComment on above:Order Comment: Class 0: [...] high level sensitization.Performed By: #### RAP #### [facility] ([facility]) [address] [place] [address] VIRCOMMON PIGWEED<^0.10Normal<0.10ProPremier Health Atrium Medical Center Comment on above:Order Comment: Class 0: Normal [...] high level sensitization.Performed By: #### RAP #### [facility] ([facility]) [address] [place] [address] VIRCOMMON RAGWEED<^0.10Normal<0.10ProPremier Health Atrium Medical Center Comment on above:Order Comment: Class 0: Normal [...] high level sensitization.Performed By: #### RAP #### [facility] ([facility]) [address] [place] [address] VIRCOMMON SILVER BIRCH<^0.10Normal<0.10ProPremier Health Atrium Medical CenterComment on above:Order Comment: Class 0: Normal Class [...] high level sensitization.Performed By: #### RAP #### [facility] ([facility]) [address] [place] [address] VIRCOTTONWOOD<^0.10Normal<0.10ProPremier Health Atrium Medical CenterComment on above:Order Comment: Class 0: Normal Class [...] high level sensitization.Performed By: #### RAP #### [facility] ([facility]) [address] [place] [address] VIRDERMATOPH FARINAE<^0.10Normal<0.10ProPremier Health Atrium Medical Center Comment on above:Order Comment: Class 0: Normal [...] high level sensitization.Performed By: #### RAP #### [facility] ([facility]) [address] [place] [address] VIRDERMATOPH PTERONYSS<^0.10Normal<0.10ProMedica Erie HospitalComment on above:Order Comment: Class 0: Normal [...] high level sensitization.Performed By: #### RAP #### [facility] ([facility] [facility] [address] [place] [address] VIRDOG DANDER<^0.10Normal<0.10ProMedica Erie HospitalComment on above:Order Comment: Class 0: Normal [...] high level sensitization.Performed By: #### RAP #### [facility] ([facility]) [address] [place] [address] VIRELM<^0.10Normal<0.10ProMedica Erie HospitalComment on above:Order Comment: Class 0: Normal [...] high level sensitization.Performed By: #### RAP #### [facility] ([facility]) [address] [place] [address] VIRGOOSEFOOT CANNON QTR<^0.10Normal<0.10[facility] Comment on above:Order Comment: Class 0: [...] high level sensitization.Performed By: #### RAP #### [facility] ([facility]) [address] [place] [address] VIRIGE2 IU/mLNormal<=165ProPremier Health Atrium Medical CenterComment on above:Order Comment: Class 0: Normal Class [...] high level sensitization.Performed By: #### RAP #### [facility] ([facility]) [address] [place] [address] VIRJOHNSON GRASS<^0.10Normal<0.10[facility] Comment on above:Order Comment: Class 0: [...] high level sensitization.Performed By: #### RAP #### [facility] ([facility]) [address] [place] [address] VIRMAPLE LEAF SYCAMORE<^0.10Normal<0.10ProPremier Health Atrium Medical CenterComment on above:Order Comment: Class 0: Normal Class [...] high level sensitization.Performed By: #### RAP #### [facility] ([facility]) [address] [place] [address] VIRMEADOW GRASS [place] BLU0.17 kU/LAbnormal<0.10ProPremier Health Atrium Medical CenterComment on above:Order Comment: Class 0: Normal Class [...] high level sensitization.Performed By: #### RAP #### [facility] ([facility]) [address] [place] [address] VIRMOUNTAIN JUNIPER<^0.10Normal<0.10Pro[facility] Comment on above:Order Comment: Class [...] high level sensitization.Performed By: #### RAP #### [facility] ([facility]) [address] [place] [address] VIRMOUSE URINE PROTEINS<^0.10Normal<0.10ProPremier Health Atrium Medical CenterComment on above:Order Comment: Class 0: Normal Class [...] high level sensitization.Performed By: #### RAP #### [facility] ([facility]) [address] [place] [address] VIRMUGWORT<^0.10Normal<0.10ProPremier Health Atrium Medical CenterComment on above:Order Comment: Class 0: Normal Class [...] high level sensitization.Performed By: #### RAP #### [facility] ([facility]) [address] [place] [address] VIRMULBERRY TREE<^0.10Normal<0.10Pro[facility] Comment on above:Order Comment: Class [...] high level sensitization.Performed By: #### RAP #### [facility] ([facility]) [address] [place] [address] VIRNETTLE<^0.10Normal<0.10[facility] Erie HospitalComment on above:Order Comment: Class 0: Normal [...] high level sensitization.Performed By: #### RAP #### [facility] ([facility]) [address] [place] [address] VIROAK<^0.10Normal<0.10Pro[facility] HospitalComment on above:Order Comment: Class 0: [...] high level sensitization.Performed By: #### RAP #### [facility] ([facility]) [address] [place] [address] VIRPECAN HICKORY TREE<^0.10Normal<0.10[facility] Comment on above:Order Comment: Class 0: Normal [...] high level sensitization.Performed By: #### RAP #### [facility] ([facility]) [address] [place] [address] VIRPENICILLIUM CHRYSOGN<^0.10Normal<0.10[facility] Charles HospitalComment on above:Order Comment: Class 0: Normal [...] high level sensitization.Performed By: #### RAP #### [facility] ([facility]) [address] [place] [address] MAICOL HALL<^0.10Normal<0.10[facility] Comment on above:Order Comment: Class 0: [...] high level sensitization.Performed By: #### RAP #### [facility] ([facility]) [address] [place] [address] VIRSALTWORT JENN THISTLE<^0.10Normal<0.10ProPremier Health Atrium Medical CenterComment on above:Order Comment: Class 0: Normal Class [...] high level sensitization.Performed By: #### RAP #### [facility] ([facility]) [address] [place] [address] VIRSHEEP SORREL<^0.10Normal<0.10Pro[facility] Comment on above:Order Comment: Class [...] high level sensitization.Performed By: #### RAP #### [facility] ([facility]) [address] [place] [address] VIRTIMOTHY<^0.10Normal<0.10ProPremier Health Atrium Medical CenterComment on above:Order Comment: Class 0: Normal Class [...] high level sensitization.Performed By: #### RAP #### [facility] ([facility]) [address] [place] [address] VIRWALNUT TREE POLLEN<^0.10Normal<0.10[facility] Comment on above:Order Comment: Class 0: Normal [...] high level sensitization.Performed By: #### RAP #### [facility] ([facility]) [address] [place] [address] VIRWHITE GISELA<^0.10Normal<0.10ProPremier Health Atrium Medical CenterComment on above:Order Comment: Class 0: Normal Class [...] high level sensitization.Performed By: #### RAP #### [facility] ([facility]) [address] [place] [address] VIRAnesthesia Postprocedure Evaluationon 03-02-2024 [employer] Boards Inspector Authentication Interface Message TextAnesthesia Postoperative Assessment: Vital [...] ANESTHESIA NOTABLE EVENTS: No notable events documented.NormalThe [facility] SystemAnesthesia Preprocedure Evaluationon [id number] Authentication Interface Message TextASA: 3 No history of anesthetic complications NPO status: Greater than 8 hours Past Medical History and Review of Systems Pulmonary (+) sleep apnea (-) non-smoker Dental ROS (+) teeth problems missing Endo (+) hypothyroidism (Gato's disease) 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 Scheduled for surgery 03/02/2024. ) Questions answered / anesthesia plan accepted ( Anesthesia consent obtained and scanned into Druva. Scheduled for surgery 03/02/2024. ) Past medical history, surgical history, allergies, and medications reviewed. Pertinent laboratory tests, EKG, imaging, and consults reviewed and I have personally seen and evaluated the patient, repeating cabrera portions of the history and physical examination. Attestation: Anesthesia options were discussed with the patient and/or legal insurance follow up representative. The risks, benefits and alternatives were reviewed. Questions regarding anesthesia were answered. Patient and/or legal insurance follow up representative knows such anesthetics and procedures may be performed by Resident physicians, Certified Anesthesiologist Assistants, or Certified Nurse Anesthetists under the supervision of a physician. The patient /or the patient's legal insurance follow up representative agree with the plan for anesthesia. Comment: Anesthesia consent obtained and scanned into EPIC. Scheduled for surgery 03/02/2024. [facility] HospitalAnesthesia Transfer Of [facility]anticokeon 03-02-2024 [employer]ed [employer] Boards Inspector Authentication Interface Message TextPatient taken to PACU. [...] surgical history indicates: EXTRACTION, TOOTH (09/15/2014) Procedure: Lima teeth; Surgeon: Bradley Goodwin DDS; Location: PERIOPERATIVE SERVICES; Service: Oral EUA, ORAL (09/15/2014) Procedure: EUA, ORAL; Surgeon: Bradley Goodwin DDS; Location: PERIOPERATIVE SERVICES; Service: Oral Allergies: Linzess [linaclotide] and Zarontin [ethosuximide] Basic Operating Room Facts: Surgeon(s): Elmer Topete DDS Anesthesiologist: Milton Luna MD PROJECT ENGINEER: Adalgisa Smith APRN-DARSHAN Crop Adjuster: Dayanna Preciado MD DENTAL RESTORATIONS (Right: Mouth) [...] of the report was received. Adalgisa Smith, [facility] SystemBlood Attestationon [id number] Authentication Interface Message TextBlood Attestation: ATTESTATION OF INFORMED CONSENT FOR BLOOD: The transfusion of blood and/or blood components were discussed with the patient and/or legal insurance follow up representative. The risks, benefits and alternatives were reviewed. Questions regarding blood transfusions were answered. The patient /or the patient's legal insurance follow up representative agree with the plan for transfusion of blood and/or blood components.NormalThe Aquto SystemBrief Operative Noteon [id number] Authentication Interface Message TextBrief Operative Note [facility] OR 3 Ponce Esteves 29 year old female Surgical Contact Serial Number: [id number] Preoperative Diagnosis: Pre-op Diagnosis * Caries [K02.9] Postoperative Diagnosis: * Caries [K02.9] Procedures: Full mouth x-ray [77192] Prophylaxis [79438] Restorations [49332] Floride application [02329] Surgeon(s): Surgeon(s): Elmer Topete DDS Staff: Halal Butcher Nurse: Trudi Padilla Olive Brine Tester: Paula Contreras DDS; Melquiades Christie DDS Anesthesia: General Anesthesiologist: Milton Luna MD PROJECT ENGINEER: Adalgisa Smith APRN-DARSHAN Crop Adjuster: Dayanna Preciado MD Specimen(s): * No specimens [...] by Paula Contreras DDS 03/02/2024 11:48 AMNormalThe [facility] System Progress Noteson [id number] Authentication Interface Message Text ----- Saturday, March 02, 2024 at 11:38:59 AM ----- ----- Provider: [id number] - Elmer Rebolledo DDS -- Clinic: [facility] ----- [place] notes, [place] is ready for tx [place]. X-Rays look good, few cavities found and confirmed clinically. restos completed. OP Note by Paula Contreras DDS at 03/01/2024 6:14 PM Author: Paula Contreras DDS Service: Dentistry Author Type: Resident Filed: 03/02/2024 11:56 AM Date of Service: 03/01/2024 6:14 PM Note Type: OP Note Status: Cosign Needed Gasoline Tractor Operator: Paula Contreras DDS (Resident) Cosign Required: Yes Expand All Collapse All Surgical Case Number Data Unavailable Operating Room Data Unavailable Preoperative Diagnosis(es): Caries [k02.9] Surgeon: Dr. Topete Line Haul Owner Operator Surgeon: Melquiades Arias DDS - Paula [...] the treatment plan included the following: Composite lutheran on tooth #7 surface ML. Amalgam restorations [...] 2024 at 11:57:17 AM ----- ----- Provider: [id number] - Elmer Rebolledo DDS -- Clinic: [facility] -----NormalThe [facility] URINE HCG-IN OFFICEon [id number] ( test) Ql (U)NegativeNegative [facility]HealthNegative Internal ControlNegativeNegativeMetroHealthPositive Internal ControlPositivePositiveMetroHealthMetroHealthURINE HCG-IN OFFICEOrdered By: Aure Salgado on 92-00-3905FCR ( test) Ql (U)NegativeNegative MetroHealthInterpretation and review of laboratory resultsNormalMetroHealth Negative Internal ControlNegativeNegativeMetroHealthPositive Internal Control PositivePositiveMetroHealthMetroHealthOP Noteon [id number] Authentication Interface Message TextSurgical Case Number Data Unavailable Operating Room Data Unavailable Preoperative Diagnosis(es): Caries [k02.9] Surgeon: Dr. Topete Line Haul Owner Operator Surgeon: Melquiades Arias DDS - Paula [...] the treatment plan included the following: Composite lutheran on tooth #7 surface ML. Amalgam restorations [...] procedure. Paula Contreras DDS 03/01/2024 6:15 PMNormalThe [facility] SystemTelephone Encounteron [id number] Authentication Interface Message Text Anesthesia consent obtained and scanned into Druva. Scheduled for surgery 03/02/2024.NormalOhio State University [facility] SystemTelephone Encounteron 02-21-2024 Printed [employer] Boards Inspector Authentication Interface Message TextAnesthesia consent obtained and scanned into Druva. Scheduled for surgery 03/02/2024.Health system SystemPAT Call Historyon 02-19-2024 Printed Circuit Boards Inspector Authentication Interface Message TextTelephone History Ponce Esteves, [id number] 02/19/2024 Patient was identified by name and date of via Jerman, caregiver. Needs: Physical, Neck Circumference, BHCG, and ED on DOS. Note: OSH records/labs scanned to media assistant. If the patient becomes ill prior to procedure or surgery, they are to call their provider or surgeon's office directly. 29 year old 136.6 lbs 5' 4 Date of Surgery: 03/02 Surgeon: Yoselyn Type of Surgery: DENTAL RESTORATIONS HISTORY OF PRESENT ILLNESS: telephone history for the upcoming surgery at [facility], [address] [place], enter through the matlock entrance doors. 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 Fluticasone Propionate (FLONASE NASAL) [place] into each nostril. Selenium (SELENIMIN ORAL) Take by mouth. Sennosides (SENNA) 15 MG tablet Take 1 Tab by mouth daily as needed for Constipation. topiramate (TOPIRAGEN) 25 MG tablet Take 75 mg by mouth 2 times daily (more content not included)...NormalThe [facility] SystemProgress Noteson 02-17-2024 Printed Circuit Boards Inspector Authentication Interface Message TextPatient PAT has be rescheduled for 02/19/2024--for OR visit 03/02/2024----- Saturday, February 17, 2024 at 10:10:00 AM ----- ----- Provider: LESLIE - Candace [facility]-Criminal[facility] -- Clinic: [place] -----NormalThe [facility] SystemProgress Noteson [id number] Authentication Interface Message TextPatient was no show for PAT today at [place] there surgery is scheduled 03/02-Contact Concetta figueroa --advised if PAT needs to reschedule or patient will be removed from OR----- Monday, February 05, 2024 at 4:24:04 PM ----- ----- Provider: LESLIE [facility]-Criminalist -- Clinic: [place] -----NormalThe [facility] SystemProgress Noteson [id number] Authentication Interface Message TextParent/guardian/patient was contacted for PAT AND OR Sedation scheduled -- confirmed information with patient, also informed mom importance of going to PAT appointment -- if missed, IV Sedation will be cancelled, and you will be placed back on wait list 03/02/24----- Monday, January 08, 2024 at 2:14:12 PM ----- ----- Provider: LESLIE [facility]-Criminalist -- Clinic: [place] -----NormalThe [facility] CenterroF[facility] SystemProgress Notes [id number] Authentication Interface Message TextAttempted to contact patient/ parent / guardian at telephone number listed -- no answer, left voicemail message requesting a return call.----- Saturday, December 30, 2023 at 2:26:35 PM ----- ----- Provider: LESLIE [facility]-Criminalist -- Clinic: [place] -----Health system SystemFree T4on 42-15-6360Dewy T4 [Mass/Vol]1.12 ng/dLNormal0.58-1.64Olaf [facility]aritan HospitalComment on above:Performed By: #### [id number], [id number] #### Olaf [facility] [address], [place] [address]Tqswzcjrl Orderon [id number] Order [id number]#1.00CD:127NormalFisher St. Agnes HospitalHon 00-39-7066WSM Qn4.74 m[IU]/LNormal0.34-5.60[facility]. Rita'S Medical CenterComment on above:Performed By: #### [id number], [id number] #### Babin [facility] [address] [place], [place] [address]UHLJ T4on 60-37-7410Hnbm T4 [Mass/Vol]1.76 ng/dLCritically high 0.76-1.46The [facility] HospitalComment on above:Performed By: #### FT4 #### [facility] [address] [place] [address] Dr. [address] PaezD[address] Health [facility] 20-83-9528LNA Qnm[IU]/LCritically low0.358-3.740Corey HospitalComment on above:Performed By: #### TSH #### [facility] [address] [place] [address] Dr. Volodymyr Matthews URINEon [id number] URINEIsolate 1 Streptococcus agalactiae >100,000 cfu/mL of ORGANISM 1 Streptococcus agalactiae ANTIBIOTIC M.I.C RX STATUS Benzylpenicillin <=0.06 S F Ampicillin <=0.25 S F Cefotaxime <=0.12 S F Ceftriaxone <=0.12 S F Levofloxacin 1 S F Inducible Clindamycin Resistance Neg NEG F Erythromycin >=8 R F Clindamycin >=1 R F Linezolid <=2 S F Vancomycin 0.5 S F Tetracycline >=16 R FNormalCorey HospitalComment on above:Performed By: #### TSH, CMP #### [facility] [address] [place] [address] Dr. Volodymyr Zapata (CLEAN/CATCH) ELECTROMECHANISMS DESIGN DRAFTER/MICRO IF IND.on [id number] Ql (U) NegativeNormalNEGATIVECorey HospitalComment on above:Performed By: #### UACSIND, UMICRO #### [facility] [address] [place] [address] Dr. Volodymyr PaezClarity (U)CLEARNormalCLEARThe [facility]ka HospitalComment on above: Performed By: #### UACSIND, UMICRO #### [facility] [address] [address] [address] Volodymyr Jones (U)LT. YELLOWNormalYELLOWCorey HospitalComment on above:Performed By: #### UACSSHAHEEN, UMICRO #### [facility] [address] [address] [address] Volodymyr PaezGlucose Ql (U)NegativeNormalNEGATIVEMemorial Health System Marietta Memorial Hospital HospitalComment on above:Performed By: #### UACSSHAHEEN, UMICRO #### [facility] [address] [address] [address] Volodymyr PaezHemoglobin Ql (U)NegativeNormalNEGATIVEOhiohealth Berger Hospital on above:Performed By: #### UACSSHAHEEN, UMICRO #### [facility] [address] [address] [address] Volodymyr PaezKetones Ql (U)NegativeNormalNEGATIVECorey HospitalComment on above:Performed By: #### UACSSHAHEEN UMICRO #### [facility] [address] [address] [address] Volodymyr PaezLEUKOCYTESSMALLAbnormalNEGATIVECorey HospitalComment on above:Performed By: #### UACSSHAHEEN, UMICRO #### [facility] [address] [address] [address] Volodymyr PaezNitrite Ql (U)NegativeNormalNEGATIVECorey HospitalComment on above:Performed By: #### UACSSHAHEEN, UMICRO #### [facility] [address] [address] [address] Volodymyr PaezpH (U)7.0 [pH]Normal5-9The [facility] HospitalComment on above: Performed By: #### UACSIND, UMICRO #### [facility] [address] [address] [address] Volodymyr PaezSPEC GRAVITY1.829Odqepp7.005-<=1.025The [facility] HospitalComment on above:Performed By: #### TASHA UMICRO #### [facility] [address] [address] [address] Volodymyr Zapata PROTEINNegativeNormalNEGATIVE/ TRACEThe [facility] Comment on above:Performed By: #### TASHA UMICRO #### [facility] [address] [address] [address] Volodymyr Mendez MICRO INDINDICATEDNoParkview Health Bryan HospitalComment on above: Performed By: #### TASHA UMICRO #### [facility] [address] [address] [address] Volodymyr Barber Qn (U)0.2 {Leta'U}/dLNormal0.2 - 1.0The [facility] HospitalComment on above:Performed By: #### TASHA UMICRO #### [facility] [address] [address] [address] Volodymyr Garcia MICROSCOPIC ONLYon [id number]sEZZA SEEN The [facility] HospitalComhelen [facility] on above:Performed By: #### TASHA UMICRO #### [facility] [address] [address] [address] Volodymyr Ladd identified Cx Nom (U)INDICATEDMercy Health St. Rita's Medical CenterComment on above:Performed By: #### TASHA UMICRO #### [facility] [address] [address] [address] Volodymyr Ernst SEENNormalNONE SEENCorey HospitalComment on above:Performed By: #### TASHA UMICRO #### [facility] [address] [address] [address] Volodymyr Mcdonough LM Nom (Urine sed)NONE SEENNormalNONE SEENCorey HospitalComhelen newberry joy hospital on above:Performed By: #### TASHA UMICRO #### [facility] [address] [address] [address] Helm ChangEpithelial cells LM Ql (Urine sed)MODERATEAbnormalNONE SEEN /RARE The [facility] HospitalComment on above:Performed By: #### MYAHCSSHAHEEN UMICRO #### [facility] [address] [place] [address] Dr. Volodymyr PaezMUCOUSTRACEAbnormalNONE SEENThe [facility] on above:Performed By: #### UACSIND UMICRO #### [facility] [address] [place] [address] Dr. Volodymyr PaezWhnipITD7-4Qbwmtncf9-9Tzo [facility] Eastment on above:Performed By: #### MYAHCSSHAHEEN UMICRO #### [facility] [address] [place] [address] Dr. Volodymyr PaezYykhqTMK65-49RlhjwccbMCSS SEENCorey HospitalComment on above: Performed By: #### TASHA UMICRO #### [facility] [address] [place] [address] Dr. Volodymyr PaezLAMOTRIGINEon 47-90-6946Zdkavaafwpb, Serum11.2 ug/mLNormal 2.0-20.0The [facility] HospitalComment on above:Result Comment: Detection Limit = 1.0Performed By: #### TSH, CMP #### [facility] [address] [place] [address] Dr. Volodymyr Kevin AUTO DIFFon 92-54-5816VNBG #0.0 103/ulNormal0.0-0.1The [facility] HospitalComment on above:Performed By: #### CBC #### [facility] [address] [place] [address] Dr. Volodmyyr PaezBasophils/100 WBC (Bld)0.4 %Normal0.2-2.0[facility] Comment on above:Performed By: #### CBC #### [facility] [address] [place] [address] Dr. Volodymyr Alcala #0.4 103/ulNormal0.0-0.7The [facility] HospitalComment on above: Performed By: #### CBC #### [facility] [address] [address] [address] Volodymyr Haydenosinophils/100 WBC (Bld)4.3 %Normal0.9-7.0[facility] Comment on above:Performed By: #### CBC #### [facility] [address] [place] [address] Dr. Volodymyr Haydenrythrocyte distribution width (RBC) [Ratio]13.2 %Wbhyxo93.0-15.0 The [facility] HospitalComment on above:Performed By: #### CBC #### [facility] [address] [place] [address] Dr. Volodymyr PaezHematocrit (Bld) [Volume fraction]40.2 %Qiulpp12.0-48.0The [facility] HospitalComment on above:Performed By: #### CBC #### [facility] [address] [place] [address] Dr. Volodymyr PaezHemoglobin (Bld) [Mass/Vol]13.8 g/tHYogcfr07.0-16.0The [facility] HospitalComment on above:Performed By: #### CBC #### [facility] [address] [place] [address] Dr. Volodymyr Harrison #0.02 10e3/ulNormal0.00-0.03The [facility] Community HospitalComment on above:Performed By: #### CBC #### [facility] [address] [place] [address] Dr. Volodymyr Harrison %0.2 %Normal0.0-0.5The [facility] HospitalComment on above: Performed By: #### CBC #### [facility] [address] [place] [address] Dr. Volodymyr Mccormick #4.3 103/ulCritically high1.2-3.8[facility] Comment on above:Performed By: #### CBC #### [facility] [address] [place] [address] Dr. Volodymyr Levimphocytes/100 WBC (Bld)51.8 %Oawyca60.5-60.0The [facility] HospitalComment on above:Performed By: #### CBC #### [facility] [address] [address] [address] Volodymyr Hatch DIFF REQNONormalThe [facility] Community HospitalComment on above: Performed By: #### CBC #### [facility] [address] [address] [address] Volodymyr Khan (RBC) [Entitic mass]31.0 uqFrarbs48.7-34.0The [facility] HospitalComment on above:Performed By: #### CBC #### [facility] [address] [address] [address] Volodymyr Khan (RBC) [Mass/Vol]34.3 g/wBCvlbbf51.9-35.2The [facility] HospitalComment on above:Performed By: #### CBC #### [facility] [address] [place] [address] Dr. Volodymyr Khan (RBC) [Entitic vol]90.3 rCRczswv40.0-99.0[facility] Systemment on above:Performed By: #### CBC #### [facility] [address] [place] [address] Dr. Volodymyr Villegas #0.9 103/ulCritically high0.3-0.8[facility] Comment on above:Performed By: #### CBC #### [facility] [address] [address] [address] Volodymyr Geeocytes/100 WBC (Bld)10.4 %Normal1.7-12.0[facility] Comment on above:Performed By: #### CBC #### [facility] [address] [address] [address] Volodymyr Kelly #2.7 103/ulNormal1.4-6.5The [facility] HospitalComment on above:Performed By: #### CBC #### [facility] [address] [place] [address] Dr. Volodymyr Coulterutrophils/100 WBC (Bld)32.9 %Critically low43.0-75.0The [facility] HospitalComment on above:Performed By: #### CBC #### [facility] [address] [place] [address] Dr. Volodymyr Hunt mean volume (Bld) [Entitic vol]10.3 fLNormal9.5-13.5The [facility] HospitalComment on above:Performed By: #### CBC #### [facility] [address] [place] [address] Dr. Volodymyr MorinT231 103/myItfler771-739Gev [facility] HospitalComment on above: Performed By: #### CBC #### [facility] [address] [place] [address] Dr. Volodymyr PaezRBC4.45 106/ulNormal4.20-5.40The [facility] HospitalComment on above:Performed By: #### CBC #### [facility] [address] [place] [address] Dr. Volodymyr PaezWBC8.2 103/ulNormal4.0-11.0The [facility] HospitalComment on above: Performed By: #### CBC #### [facility] [address] [place] [address] Dr. Volodymyr Munoz/ VALPROIC ACIDon 35-52-9031PCRFTUEI57.3 ug/mlNormal 50.0-100.0The [facility] HospitalComment on above:Performed By: #### VALP #### [facility] [address] [place] [address] Dr. Volodymyr Moore THYROIDon [id number] THYROIDEXAMINATION: US THYROID HISTORY: Autoimmune thyroiditis COMPARISON: [...] 6 mm. No follow-up required TI-RADS: The [employer] [place] [employer] TI-RADS committee's white paper recommendations for thyroid lesions classified as TR4 (moderately suspicious) are listed below: > 1.0 cm. Follow-up ultrasound in 1, 2, 3, and 5 years. > 1.5 cm. FNA. J. Am Chidi Radiol 2017;14:587-595. Electronically authenticated by: MATILDE WATERMAN Date: 2022-07-10 13:01NoParkview Health Bryan HospitalLAMOTRIGINEon [id number], Serum14.2 ug/mLNormal 2.0-20.0[facility] HospitalComment on above:Result Comment: Detection Limit = 1.0Performed By: #### TSH, CMP #### [facility] [address] [place] [address] Dr. Volodymyr Kevin AUTO DIFFon 30-30-5818EJPP #0.1 103/ulNormal0.0-0.1[facility] HospitalComment on above:Performed By: #### TSH, CMP #### [facility] [address] [place] [address] Dr. Volodymyr Jamesonsophils/100 WBC (Bld)0.7 %Normal0.2-2.0[facility] Comment on above:Performed By: #### TSH, CMP #### [facility] [address] [place] [address] Dr. Volodymyr Alcala #0.4 103/ulNormal0.0-0.7The [facility] HospitalComment on above: Performed By: #### TSH, CMP #### [facility] [address] [place] [address] Dr. Volodymyr Haydenosinophils/100 WBC (Bld)5.1 %Normal0.9-7.0[facility] Comment on above:Performed By: #### TSH, CMP #### [facility] [address] [place] [address] Dr. Volodymyr Haydenrythrocyte distribution width (RBC) [Ratio]13.1 %Cqjcha66.0-15.0 The [facility] HospitalComment on above:Performed By: #### TSH, CMP #### [facility] [address] [place] [address] Dr. Volodymyr PaezHematocrit (Bld) [Volume fraction]39.7 %Ocpbic36.0-48.0The [facility] HospitalComment on above:Performed By: #### TSH, CMP #### [facility] [address] [place] [address] Dr. Volodymyr PaezHemoglobin (Bld) [Mass/Vol]13.3 g/eHYnjnih94.0-16.0The [facility] on above:Performed By: #### TSH, CMP #### [facility] [address] [place] [address] Dr. Volodymyr Harrison #0.02 10e3/ulNormal0.00-0.03The [facility] HospitalComhelen [facility] on above:Performed By: #### TSH, CMP #### [facility] [address] [place] [address] Dr. Volodymyr Harrison %0.3 %Normal0.0-0.5The [facility]ment on above: Performed By: #### TSH, CMP #### [facility] [address] [place] [address] Dr. Volodymyr PondH #3.6 103/ulNormal1.2-3.8The [facility] on above:Performed By: #### TSH, CMP #### [facility] [address] [place] [address] Dr. Volodymyr Pondhocytes/100 WBC (Bld)47.4 %Yidlpm53.5-60.0The [facility] on above:Performed By: #### TSH, CMP #### [facility] [address] [place] [address] Dr. Volodymyr StroudUAL DIFF REQNONormalThe [facility] HospitalComment on above: Performed By: #### TSH, CMP #### [facility] [address] [place] [address] Dr. Volodymyr Khan (RBC) [Entitic mass]30.3 mpXymaad73.7-34.0The [facility] HospitalComment on above:Performed By: #### TSH, CMP #### [facility] [address] [place] [address] Dr. Volodymyr Khan (RBC) [Mass/Vol]33.5 g/cCBujcar82.9-35.2The [facility] HospitalComment on above:Performed By: #### TSH, CMP #### [facility] [address] [place] [address] Dr. Volodymyr Khan (RBC) [Entitic vol]90.4 vDTbxuvk04.0-99.0The [facility] HospitalComment on above:Performed By: #### TSH, CMP #### [facility] [address] [place] [address] Dr. Volodymyr Villegas #0.9 103/ulCritically high0.3-0.8[facility] Comment on above:Performed By: #### TSH, CMP #### [facility] [address] [place] [address] Dr. Volodymyr Geeocytes/100 WBC (Bld)11.3 %Normal1.7-12.0[facility] Comment on above:Performed By: #### TSH, CMP #### [facility] [address] [place] [address] Dr. Volodymyr Kelly #2.7 103/ulNormal1.4-6.5The [facility] HospitalComment on above:Performed By: #### TSH, CMP #### [facility] [address] [place] [address] Dr. Volodymyr Coulterutrophils/100 WBC (Bld)35.2 %Critically low43.0-75.0The [facility] HospitalComment on above:Performed By: #### TSH, CMP #### [facility] [address] [place] [address] Dr. Volodymyr Llamaslet mean volume (Bld) [Entitic vol]11.4 fLNormal9.5-13.5The [facility] HospitalComment on above:Performed By: #### TSH, CMP #### [facility] [address] [place] [address] Dr. Volodymyr PaezPLT96 103/ulCritically ynt708-722Dny [facility] HospitalComment on above:Result Comment: slide made; no plt clumps seenPerformed By: #### TSH, CMP #### [facility] [address] [place] [address] Dr. Volodymyr PaezRBC4.39 106/ulNormal4.20-5.40The [facility] on above:Performed By: #### TSH, CMP #### [facility] [address] [place] [address] Dr. Volodymyr PaezWBC7.6 103/ulNormal4.0-11.0The [facility] on above: Performed By: #### TSH, CMP #### [facility] [address] [place] [address] Dr. Volodymyr River T4on 29-70-8267Ajto T4 [Mass/Vol]1.45 ng/dLNormal0.76-1.46 The [facility] on above:Performed By: #### FT4 #### [facility] [address] [place] [address] Dr. Volodymyr PaezPROF 14(COMP METB)on 54-19-7236Dnxwbig [Mass/Vol]3.2 g/dL Critically low3.4-5.0The [facility] HospitalComhelen [facility] on above:Performed By: #### TSH, CMP #### [facility] [address] [place] [address] Dr. Volodymyr PaezAlbumin/Globulin [Mass ratio]0.7 {ratio}NormalThe [facility] on above:Performed By: #### TSH, CMP #### [facility] [address] [place] [address] Dr. Volodymyr PaezALP [Catalytic activity/Vol]65 U/VQvmxbk76-526Vdc [facility] HospitalComment on above:Performed By: #### TSH, CMP #### [facility] [address] [address] [address] Volodymyr ArcherT [Catalytic activity/Vol]20 U/VLlfguj98-80Ykj [facility] HospitalComment on above:Performed By: #### TSH, CMP #### [facility] [address] [address] [address] Volodymyr Reyeson gap [Moles/Vol]11.3 mmol/LNormalThe [facility] Comment on above:Performed By: #### TSH, CMP #### [facility] [address] [address] [address] Volodymyr PaezAST [Catalytic activity/Vol]25 U/SOadmlp97-90Cey [facility] HospitalComment on above:Performed By: #### TSH, CMP #### [facility] [address] [address] [address] Volodymyr PaezBilirubin [Mass/Vol]0.3 mg/dLNormal0.2-1.0[facility] Comment on above:Performed By: #### TSH, CMP #### [facility] [address] [address] [address] Volodymyr PaezCalcium [Mass/Vol]9.5 mg/dLNormal8.5-10.1[facility] Comment on above:Performed By: #### TSH, CMP #### [facility] [address] [address] [address] Volodymyr PaezChloride [Moles/Vol]100 mmol/EFfirku46-852Uzo [facility] Comment on above:Performed By: #### TSH, CMP #### [facility] [address] [address] [address] Volodymyr PaezCO2 [Moles/Vol]30.1 mmol/WAdjnxh22.0-32.0[facility] Comment on above:Performed By: #### TSH, CMP #### [facility] [address] [address] [address] Volodymyr PaezCreatinine [Mass/Vol]0.92 mg/dLNormal0.55-1.02The [facility]je[facility] HospitalComment on above:Performed By: #### TSH, CMP #### [facility] [address] [address] [address] Volodymyr HaydenGFR-AF BAHAMIAN>60Normal>=60The [facility] HospitalComment on above:Performed By: #### TSH, CMP #### [facility] [address] [address] [address] Volodymyr HaydenGFR-NON AF BAHAMIAN>60Normal>=60The [facility] HospitalComment on above:Performed By: #### TSH, CMP #### [facility] [address] [address] [address] Volodymyr PaezGlobulin (S) [Mass/Vol]4.4 g/dLNormalThe [facility] HospitalComment on above:Performed By: #### TSH, CMP #### [facility] [address] [address] [address] Volodymyr PaezGlucose [Mass/Vol]76 mg/zWDzccij96-176Zcm[facility] Comment on above:Performed By: #### TSH, CMP #### [facility] [address] [address] [address] Volodymyr PaezPotassium [Moles/Vol]4.4 mmol/LNormal3.5-5.1The [facility] Comment on above:Performed By: #### TSH, CMP #### [facility] [address] [address] [address] Volodymyr PaezProtein [Mass/Vol]7.6 g/dLNormal6.4-8.2The [facility] Comment on above:Performed By: #### TSH, CMP #### [facility] [address] [address] [address] Volodymyr PaezSodium [Moles/Vol]137 mmol/YObojzi964-305Oct[facility] Hospital Comment on above:Performed By: #### TSH, CMP #### [facility] [address] [address] [address] Volodymyr PaezUrea nitrogen [Mass/Vol]7.0 mg/dLNormal7.0-18.0The [facility] HospitalComment on above:Performed By: #### TSH, CMP #### [facility] [address] [address] [address] Volodymyr PaezUrea nitrogen/Creatinine [Mass ratio]7.6 mg/mgNormalThe [facility] HospitalComment on above:Performed By: #### TSH, CMP #### [facility] [address] [place] [address] Dr. Volodymyr Everett 98-81-7860RBD3.099 uIU/mLCritically low0.358-3.740The [facility] HospitalComment on above:Performed By: #### TSH, CMP #### [facility] [address] [place] [address] Dr. Volodymyr RaiPAKENE/ VALPROIC ACIDon 35-85-1893WHUXVSPL75.4 ug/mlNormal 50.0-100.0The [facility] HospitalComment on above:Performed By: #### TSH, CMP #### [facility] [address] [place] [address] Dr. Volodymyr Moore THYROIDon [id number] THYROIDEXAMINATION: US THYROID HISTORY: Non-toxic multinodular goiter [...] screening is still recommended. TR 4: The [place] [employer] TI-RADS committee's white paper recommendations for thyroid lesions classified as TR4 (moderately suspicious) are listed below: > 1.0 cm. Follow-up ultrasound in 1, 2, 3, and 5 years. > 1.5 cm. FNA. J. Am Chidi Radiol 2017;14:587-595. Electronically authenticated by: KRIS MENDOZA Date: 2021-10-25 09:31NormalThe [facility] HospitalFREE T4on 36-77-2448Liwe T4 [Mass/Vol]1.08 ng/dLNormal0.76-1.46 The [facility] HospitalComment on above:Performed By: #### TSH, CMP #### [facility] [address] [place], [place] [address] Dr. Volodymyr PaezTSHoalex 98-04-5452NDY72.719 uIU/mLCritically high0.358-3.740The [facility] HospitalComment on above:Performed By: #### TSH #### [facility] [address] [place], [place] [address] Dr. Volodymyr Paez Vital Signs Date TimeVital SignValuePerforming WjfrtiaigGwlbyomg30-00-0432 13:45-0500 Diastolic blood byuwszdw34 mm[Hg]Stv (1.5t)[facility]11-07-2025 13:45-0500Heart rate84 /minStv (1.5t)[facility]11-07-2025 13:45-0500Respiratory rate21 /minStv (1.5t)[facility]11-07-2025 13:45-4347KwW0% (BldA) [Mass fraction]99 %Stv (1.5t)[facility] 02-26-2025 13:45-0500Systolic blood mm[Hg]Stv (1.5t)[facility]11-07-2025 12:47-0500Body ilmcjcpkpsg33.8 [degF]Stv (1.5t)[facility]11-05-2025 09:34-0500Body mass index (BMI) [Ratio]22.73 kg/k6FplkrShanna Stoll MD Work Phone: [facility]11-05-2025 09:34-0500Body bynwzw47.96 kgShanna Stoll MD Work Phone: [facility]11-05-2025 09:34-0500Diastolic blood mm[Hg]Shanna Stoll MD Work Phone: [facility]11-05-2025 09:34-0500Heart rate 79 /minShanna Stoll MD Work Phone: [facility]11-05-2025 09:34-0350MhA8% (BldA) [Mass fraction]97 %Shanna Stoll MD Work Phone: [facility]11-05-2025 09:34-0500Systolic blood wenadtlg240 mm[Hg]Shanna Stoll MD Work Phone: 1([phone] [place], [place] 9884311-04-2025 09:47-0500Body icrzyb547.1 cmMarc Dolce DPM FACFAS Work Phone: [phone] [place], [place] 7799111-04-2025 09:47-0500Body mass index (BMI) [Ratio]21.3 kg/m2Marc Dolce DPM FACFAS Work Phone: [phone] [place], [place] 7799111-04-2025 09:47-0500Body lygqbh62.06 kgMarc Dolce DPM FACFAS Work Phone: [phone])[address] [place], [place] 7799111-04-2025 09:47-0500Diastolic blood jivaqeyb25 mm[Hg]Lai Alston DPM FACFAS Work Phone: [phone] [place], [place] 7799111-04-2025 09:47-0500Heart rate70 /min Lai Alston DPM FACFAS Work Phone: [phone] [place], [place] 7799111-04-2025 09:47-0500Systolic blood ncwpazsl734 mm[Hg]Lai Alston DPM FACFAS Work Phone: [phone])[address] [place], [place] 7799110-08-2025 13:12-0400Body .74 kgDaubaldo Iyer DO Work Phone: [facility]10-08-2025 13:12-0400 Diastolic blood jbjmkwov57 mm[Hg]Nathan Iyer DO Work Phone: [phone] [place], [place] 2304510-08-2025 13:12-0400 Heart rate89 /minDaniel Iyer DO Work Phone: [phone] [place], [place] 3923210-08-2025 13:12-0400 SaO2% (BldA) [Mass fraction]98 %Nathan Iyer DO Work Phone: [phone])[address] [place], [place] 3923210-08-2025 13:12-0400 Systolic blood qpbakrpx113 mm[Hg]Nathan Iyer DO Work Phone: 1([phone])[address] [place], [place] 3923209-19-2025 08:01-0400 Body ynzzwe366.1 cmDaniel Iyer DO Work Phone: [phone])[address] [place], [place] 3923209-19-2025 08:01-0400 Body .87 kgDaniel Iyer DO Work Phone: 1(167)[address] [place], [place] 3923209-19-2025 08:01-0400 Diastolic blood ygnenese46 mm[Hg]Nathan Iyer DO Work Phone: 1([phone])[address] [place], [place] 3923209-19-2025 08:01-0400 Heart rate87 /minDaniel Iyer DO Work Phone: [phone])[address] [place], [place] 3923209-19-2025 08:01-0400 Respiratory rate16 /minDaniel Iyer DO Work Phone: [phone])[address] [place], [place] 3923209-19-2025 08:01-0400 SaO2% (BldA) [Mass fraction]97 %Nathan Iyer DO Work Phone: [phone])[address] [place], [place] 3923209-19-2025 08:01-0400 Systolic blood mjjwdnew710 mm[Hg]Nathan Iyer DO Work Phone: [phone] [place], [place] 3923208-05-2025 10:00-0400 Body vmvdsy095.1 cmMarc Dolce DPM FACFAS Work Phone: [facility] HospitalBmlmpvtktf46-56-6435 10:00-0400Body mass index (BMI) [Ratio]21.3 kg/m2Marc Dolce DPM FACFAS Work Phone: 1(419)[facility]-2385[facility] HospitalTzvofdluom34-61-6663 10:00-0400Body qpdsae26.06 kgMarc Dolce DPM FACFAS Work Phone: [phone] HospitalSgygyeyhor55-93-2977 10:00-0400Diastolic blood dtffoiol45 mm[Hg]Lai Hackettce DPM FACFAS Work Phone: [phone] [place], [place] 7799108-05-2025 10:00-0400Heart rate70 /min Lai Dolce DPM FACFAS Work Phone: [phone] [place], [place] 7799108-05-2025 10:00-0400Systolic blood qjlrxlxu602 mm[Hg]Lai Hackettce DPM FACFAS Work Phone: [phone] [place], [place] [address]Uvsklltugb58-73-2884 11:03-0400Body ndwmuq872.1 cmMarc Dolce DPM FACFAS Work Phone: [phone] [place], [place] 7799105-06-2025 11:03-0400Body mass index (BMI) [Ratio]21.3 kg/m2Marc Dolce DPM FACFAS Work Phone: [phone] [place], [place] 7799105-06-2025 11:03-0400Body lhewkl29.06 kgMarc Dolce DPM FACFAS Work Phone: [phone] [place], [place] [address] HospitalCyvmgpanau80-75-7251 11:03-0400Diastolic blood qzovczho35 mm[Hg]Lai Alston DPM FACFAS Work Phone: [phone] [place], [place] 7799105-06-2025 11:03-0400Heart rate71 /min Lai Dolce DPM FACFAS Work Phone: [phone] [place], [place] 77[address]105-06-2025 11:03-0400Systolic blood itzcapjp420 mm[Hg]Lai Alston DPM FACFAS Work Phone: [phone] HospitalUziztnxhgl13-96-1384 10:16-0400Body .1 cmAngsae De Anda PA Work Phone: [facility] HospitalXvdlprkqdt10-82-1551 10:16-0400Body mass index (BMI) [Ratio]21.47 kg/z7Wlaogf Lowe PA Work Phone: [facility] HospitalHclcbflbxl12-71-6220 10:16-0400Body .51 kgAngela Lowe PA Work Phone: [facility] HospitalYqtnvybddx04-52-7435 10:16-0400Diastolic blood ubabaijm66 mm[Hg]Eduarda Lowe PA Work Phone: [facility] HospitalBlyadkzzyn24-06-5920 10:16-0400Systolic blood htilecql317 mm[Hg]Eduarda Lowe PA Work Phone: [facility] HospitalMaptjwgobc78-60-5795 10:24-0500Body bktukr316.1 cmMarjuany Hackettce DPM FACFAS Work Phone: [facility] HospitalMjvfindlki29-45-4845 10:24-0500Body mass index (BMI) [Ratio]21.47 kg/m2Marc Alecia DPM FACFAS Work Phone: [facility] HospitalFyxthwvfrz20-09-2235 10:24-0500Body zvnpac11.51 kgMarc Dolce DPM FACFAS Work Phone: [facility] HospitalDynfyhactk96-44-3133 10:24-0500Diastolic blood ppaycpdy75 mm[Hg]Lai Alston DPM FACFAS Work Phone: [facility] HospitalGqmzsdubul61-17-7866 10:24-0500Heart rate74 /min Lai Alston DPM FACFAS Work Phone: [facility] HospitalXuevfqdral01-70-2665 10:24-0500Systolic blood enorgqol217 mm[Hg]Lai Alston DPM FACFAS Work Phone: [facility] HospitalOsirorttyd15-39-3329 09:45-0500Body agqdom192.1 cmAngela Lowe PA Work Phone: [facility] HospitalSipndrljzz54-83-4922 09:45-0500Body mass index (BMI) [Ratio]21.47 kg/u9Dimnlj Lowe PA Work Phone: [facility] HospitalJudyuwsntq74-80-4617 09:45-0500Body .51 kgEduarda AMADOR Work Phone: [place] [address]Mzqhsbobab52-18-4844 11:19-0500Body yoytvz745.1 cmMarjuany Alston DPM FACFAS Work Phone: [facility] HospitalIzcvjnxrul74-81-7416 11:19-0500Body mass index (BMI) [Ratio]21.3 kg/m2Marc Dolce DPM FACFAS Work Phone: [place] [address]Whqqobplfw25-48-5182 11:19-0500Body yrzaer98.06 kgMarc Dolce DPM FACFAS Work Phone: [place] [address]Psnntdvdpr72-73-0887 11:19-0500Diastolic blood hfrpyrqz50 mm[Hg]Lai Alston DPM FACFAS Work Phone: [place] [address]Vtimqehrfg22-41-8586 11:19-0500Heart rate88 /min Lai Lewezio DPM FACFAS Work Phone: [place] [address]Ahekflbfmy98-68-9894 11:19-0500Systolic blood beatnqqc143 mm[Hg]Lai Alston DPM FACFAS Work Phone: [place] [address]Lcznhfayxs30-51-8209 12:30-0500Body temperature 98.1 [degF]Elmer AlMisaelLetitiakristin DDS Work Phone: 1(136) [phone]xAxvsuu79-20-0006 12:30-0500Diastolic blood qpvcilxc32 mm[Hg]Elmer Topete DDS Work Phone: 1(937) [phone]dSnqvzs41-11-0647 12:30-0500Heart kwjn302 /min Elmer ForbesLetitiakristin DDS Work Phone: 1(590) [phone]ySmrgmp57-72-2821 12:30-0500Respiratory rate19 /minEmler ForbesLetitiakristin DDS Work Phone: 1(901) [phone]vHcoxge48-10-7911 12:30-6030LuP7% (BldA) [Mass fraction]98 %Elmer Topete DDS Work Phone: 1(164) [phone]xAwtoyk63-99-0857 12:30-0500Systolic blood dunqfdkg115 mm[Hg]Elmer Topete DDS Work Phone: 1(766) [phone]yEjbknn99-25-9484 09:11-0500Body fpgudr621.6 cm Elmer Topete DDS Work Phone: 1(909) [phone]nVaovav90-41-2024 09:11-0500Body mass index (BMI) [Ratio]23.45 kg/e2ObrugElmer Topete DDS Work Phone: 1(253) [phone]fCjeuew62-16-9484 09:11-0500Body acovbi26.96 kg Elmer Topete DDS Work Phone: 1(411) [phone]bRmponi08-59-1877 11:00-0400Body njcigt901.6 cm Kelly Cabello JBPzgdiHshsbl90-00-2416 11:00-0400Body mass index (BMI) [Ratio] 23.45 kg/w9Ovuzlvge Morris ZURuckuOdgplm47-29-2081 11:00-0400Body maopvp62.96 kg Kelly Irineo NRSkabqGudxom82-27-7733 11:05-0400Diastolic blood jbcazwjl72 mm[Hg]Radha AMADOR Work Phone: [email or web address] Dvpwzxtbqv68-04-5859 11:05-0400Heart rate92 /min Radha AMADOR Work Phone: noHaw[facility] HospitalWmlalzeqgn33-32-3662 11:05-0400Respiratory rate16 /minRadha AMADOR Work Phone: noHawthorn [facility] HospitalLdaebzuylp32-49-7212 11:05-0184JnL7% (BldA) [Mass fraction]96 %Radha AMADOR Work Phone: [email or web address] Ftkmiuildx63-34-3971 11:05-0400Systolic blood devqxrpb587 mm[Hg]Radha AMADOR Work Phone: noMS Healthcare Encounters Encounter DateEncounter TypeCare ProviderFacilityStart: 02-26-2025 End: 01-88-4275jhaaubofovYIYNAZVPDKTYousif Kang [facility] Start: 02-26-2025 End: 29-65-2746Hdnbejpaxl hospital visit by physicianStgabriela Mri Rm 1 (1.5t)[facility] MRIComment on above:Unsteady gait; Seizure disorder (HCC)Start: 02-24-2025 End: 85-16-8626ncjzxkaqbwHRFTBY A HERRINGProMedica Erie HospitalStart: 02-24-2025 End: 53-15-2633Ebdhdx consultation new/estab patient 58 Rohit Stoll MD Work Phone: [facility], A Department of [facility] HospitalComment on above:Other allergy, initial encounter (Primary Dx); Chronic rhinitisStart: 02-24-2025 End: 94-88-2916vmcsinetmpALAVJ ELISAWayne HealthCare Main Campus HospitalStart: 02-23-2025 End: 10-77-3359Sthtbw flowsheetMarc D Dolce DPM FACFAS Work Phone: noms [facility] CenternStart: 02-23-2025 End: 87-85-5020Mwzkwu flowsheetMarc D Dolce DPM FACFAS Work Phone: noms [facility] Centertart: 02-23-2025 End: 03-80-3151Mjceady encounter procedureMarc D Dolce DPM FACFAS Work Phone: noms NMA PODComment on above:Onychomycosis (Primary Dx); Pain in right toe(s); Pain in left toe(s)Start: 02-23-2025 End: 80-23-0611wkkzhdvfbgQDQE D DOLCENot AvailableStart: 01-27-2025 End: 27-09-1994drdscsehqhEbqgzv A Iyer DO Work Phone: [facility] Work Phone: Start: 01-27-2025 End: 17-51-4356Upvvmmu encounter procedureChlane Ruano DO-[facility] [place] Work Phone: Start: 01-08-2025 End: 01-10-5198Ibdhhnk encounter procedureSmary Duvall MLGG-OKL-[facility] HospitalStart: 01-08-2025 End: 76-29-5049yxeuftjisuAwenvv A Iyer DO Work Phone: [facility] Work Phone: Start: 12-28-2024 End: 13-74-5105Empbrizh ReferredSagloria Duvall WFJQ-CTD-Q-Pre-Surgical Testing Work Phone: Start: 12-28-2024 End: 58-44-6469Nruacsj encounter procedureSmary Duvall ENGRAVING OPERATOR-GYNECOLOGICAL ASSISTANT-C -Pre-Surgical Testing Work Phone: Start: 12-28-2024 End: 17-24-7020tpfwlscbugTtwgie A Iyer DO Work Phone: [facility] Work Phone: Start: 12-24-2024 End: 26-20-9533Nuozol outpatient new 30 minutesMaramanda Monroy PA-C Work Phone: [facility] and ThroatComment on above:Recurrent sinusitis (Primary Dx); Recurrent sinus infections; Nasal congestionStart: 12-24-2024 End: 03-58-1543oghgiccqsoFRXDE D [facility] HOSPITALKARENCleveland Clinic Foundation Ambulatory PPGStart: 11-24-2024 End: 96-21-2286Dzmdpj flowsheetMarc D Dolce DPM FACFAS Work Phone: noms [facility] AustintownStart: 11-24-2024 End: 08-59-9653Drixvx flowsheetMarc D Dolce DPM FACFAS Work Phone: noms [facility] AustintownStart: 11-24-2024 End: 16-48-6119wrmskeyeoxZVBV D DOLCENot AvailableStart: 11-24-2024 End: 29-00-8479Ogpbfac encounter procedureMarc D Dolce DPM FACFAS Work Phone: noMS NMA PODComment on above:Onychomycosis (Primary Dx); Pain in right toe(s); Pain in left toe(s)Start: 10-01-2024 End: 18-49-5490tiuotwizdvRsxahm A [facility] CenterFacility:[facility] Daytontart: 08-25-2024 End: 32-33-3213Uuwfsh flowsheetMarc D Dolce DPM FACFAS Work Phone: [facility] PODStart: 08-25-2024 End: 54-46-1433Vsdlwe flowsheetMarc D Dolce DPM FACFAS Work Phone: [facility] PODStart: 08-25-2024 End: 50-88-2105Kvnubrv encounter procedureMarc D Dolce DPM FACFAS Work Phone: noMS NMA PODComment on above:Onychomycosis (Primary Dx); Pain in right toe(s); Pain in left toe(s)Start: 08-25-2024 End: 72-13-6708spjhcpgbjcDIFT D DOLCENot AvailableStart: 08-11-2024 End: 11-46-6511Vzvnal flowsheetAngela Lowe PA Work Phone: aNA [place]LEVUEStart: 08-11-2024 End: 72-01-8173Gckrro flowsheetAngela Lowe PA Work Phone: aNA [place]UEStart: 08-11-2024 End: 07-92-8917Bslnlz outpatient visit 25 minutesAngela Lowe PA Work Phone: aNA BELLEVUEComment on above:Seizure disorder (CMS/HCC) (Primary Dx); Gait instability; Pseudobulbar affect; Developmental delay; WeaknessStart: 08-11-2024 End: 17-48-9707jxytvusqdgZDZFHO LOWENot AvailableStart: 06-10-2024 End: 29-82-2756Cvapur flowsheetMarc D Dolce DPM FACFAS Work Phone: [facility] PODStart: 06-10-2024 End: 30-87-7687Mppmfi flowsheetMarc D Dolce DPM FACFAS Work Phone: [phone] PODStart: 06-10-2024 End: 48-09-5654Uxzntcm encounter procedureMarc D Dolce DPM FACFAS Work Phone: noMS NMA PODComment on above:Onychomycosis (Primary Dx); Pain in right toe(s); Pain in left toe(s)Start: 06-10-2024 End: 24-78-2669xjubykcmckOSAF D DOLCENot AvailableStart: 06-03-2024 End: 06-39-1642Qvneqd outpatient visit 25 minutesAngeamanda AMADOR Work Phone: aNA [place]ONComment on above:Seizure disorder (CMS/HCC) (Primary Dx); Autism (CMS/HCC); Developmental delay; Gait instabilityStart: 06-03-2024 End: 19-68-8346mlgcqngkhsWZKOFK LOWENot AvailableStart: 03-10-2024 End: 48-43-1661Vimunl flowsheetMarc D Dolce DPM FACFAS Work Phone: [facility] PODStart: 03-10-2024 End: 69-29-7708Tgdjnv flowsheetMarc D Dolce DPM FACFAS Work Phone: [phone] PODStart: 03-10-2024 End: 78-21-5353ibtmeyhlxnHZUY D DOLCENot AvailableStart: 03-10-2024 End: 45-17-9376Njdfui outpatient new 30 minutesMarc D Dolce DPM FACFAS Work Phone: noms NMA PODComment on above:Venous insufficiency (chronic) (peripheral) (Primary Dx); Onychomycosis; Pain in right toe(s); Pain in left toe(s); OnychocryptosisStart: 03-02-2024 End: 17-89-6148Ochitre encounter procedureElmer Topete DDS Work Phone: [facility] DentistryStart: 03-02-2024 End: 56-80-7442Mvczpcwohw hospital visit by physicianElmer Topete DDS Work Phone: [facility] Ambulatory SurgeryStart: 03-02-2024 End: 63-04-0588xttocbcbheMYFJU AL-MASHNIFacility:[facility] CenterStart: 02-26-2024 End: 28-67-7550Kfrdgjpmi encounterKelly Cabello RNFlower Hospital Pre-Admission TestingComment on above:Pre-surgical Evaluation (DD adult dental restorations 03/02 under [facility] at [facility]. PAT completed - anesthesia consent. PAT RN spoke to Mary (nurse), confirmed NPO, [facility] address, and 0900 arrival time/)Start: 02-24-2024 End: 44-80-7563Jvwxkeokw encounterAshleigh Kaplan [facility] Pre-Admission TestingComment on above:PAT (Anesthesia consent obtained)Start: 02-21-2024 End: 02-78-4231Qjejvzxty encounterMelbao Kaplan [facility] Pre-Admission TestingComment on above:PAT (Anesthesia consent obtained)Start: 02-19-2024 End: 06-27-7410Uetzyts evaluation of patient and reportKelly Cabello RN [facility] Pre-Admission TestingComment on above:Pre-op evaluation (Primary Dx)Start: 02-19-2024 End: 70-90-1416Keuaztrykfkzs examination doneKelly Cabello RNFlower HospitalStart: 17-70-4632cragxppzesEGXAIWV PROVIDERFacility:[facility]PITALHealthStart: 02-19-2024 Encounter for other preprocedural examinationUNKNOWN PROVIDERThe [facility] SystemStart: 02-05-2024 End: 07-75-7666Agilano encounter Nisha Ferrell APRN-KEMI Work Phone: [facility] Pre-Admission TestingComment on above:NO SHOW (Primary Dx)Start: 01-21-2024 End: 03-75-6554Kqwcab Alis AMADOR Work Phone: [facility] R[facility]TEStart: 01-21-2024 End: 12-81-6819Jjlptl flowsheetRadha Juan AMADOR Work Phone: noms [facility] ROUTEStart: 01-21-2024 End: 06-21-9697Giaolb outpatient visit 15 Adriel Martinez PERRY Work Phone: noms [facility] ROUTEComment on above:Seizure disorder (CMS/HCC) (Primary Dx); Mental deficiency (CMS/HCC); Autism (CMS/HCC); Pseudobulbar affect; Gait instabilityStart: 12-27-2023 End: 60-49-7400Aqrlgryzm to same day surgery Angelique Weber DDS Work Phone: [facility] DentistryStart: 01-09-2023 End: 25-69-0192vnnxhlnkqaRKAQRQ HERRINGFacility:FTMCStart: 08-29-2022 End: 29-95-2315zbqqiplvvdVJ DANIEL A HERRINGFacility:F8Kvsls: 08-21-2022 End: 06-12-1297fjzkbguzvnJG DOCTOR MISCFacility:M3Xzejw: 08-09-2022 End: 93-32-2971vfsxzynkxtYY DANIEL A HERRINGFacility:L1Myaue: 07-21-2022 End: 70-96-3961zvbzwvmaajLB UMAIR TURNER .Facility:B3Mrykg: 07-10-2022 End: 10-02-8547vxouwbrsipVS DOCTOR MISCFacility:O7Gqqzt: 06-27-2022 End: 18-24-4372fblrsagijbHR NONE LISTED REQUESTFacility:L5Cjxax: 04-30-2022 Telephone encounterMartha Coreas DMD Work Phone: [facility] CenterComment on above:DentalStart: 04-03-2022 End: 40-70-8174aofawlohtrRM DANIEL A HERRINGFacility:A7Wukdy: 03-13-2022 End: 23-96-7674Nvpjqxu encounter procedureMartha Coreas DMD Work Phone: [facility] DentistryStart: 10-24-2021 End: 44-54-3622wqmyunwevoSV DOCTOR MISCFacility:H6Rptrd: 11-07-2016 End: 74-48-7066BfxzvzzvecXHBOOAD PHYSICIANFacility:[facility] Procedures DateProcedureProcedure DetailPerforming ClinicianStart: 02-26-2025 End: 93-98-9979Zgp spinal canal cervical w/o contrast matrlChriván Fleiciano DO Work Phone: Start: 74-29-0452Gxxbhjitoukk chorionic qualitative Дмитрий Feliciano DO Work Phone: Start: 03-02-2024 End: 17-40-4546Aeavi test visual color cmprsn Windy Luna MD Work Phone: Plan of Treatment DateCare ActivityDetailAuthorStart: 82-49-7964Ujwjhkfq (RZV) Vaccine (1 of 2) Shingles (RZV) Vaccine (1 of 2)[facility]HealthStart: 09-36-8651Kvnsf BMI Screening Adult BMI ScreeningPremier Health [facility] Medical [facility] SystemStart: 12-22-2025 End: 20-43-9453Cmnuomq encounter augwrzthi47/02/2026 11:00 AM EDT Office Visit [facility] [address] [place] [address] Matilde Wilson, [address] [place] [address] [facility] DentistryStart: 05-25-2025 End: 98-62-4438Hyeulpr encounter bpxdviatt75/03/2026 9:30 AM EST Procedure Visit [facility] [address] [place] [address] Lai Alston, DPM FACFAS [address] [facility] [place] [address] [facility] NMA PODStart: 03-16-2025 End: 02-48-3372Hjqhjof encounter wctefugki52/25/2025 12:45 PM EST Office Visit [facility] [address] [facility] [address] [facility] [address] [facility] [place] [address] Philip Monroy, PA-C [address] [facility] [address] [place] [address] [facility] ThroatStart: 58-44-8890Vzbige X-Ray: BitewingsDental X-Ray: BitewingsMetroHealthStart: 02-24-2025 End: 85-08-3885Rroiehp encounter mrmzacrkc43/05/2025 9:30 AM EST Office Visit [facility], A Department of [facility] [address] [place] [address] Shanna Stoll MD [address] [facility] [address] [facility] [place] [address] [facility] A Department of [facility] Start: 02-23-2025 End: 45-33-5267Tkntukl encounter procedureNOMS NMA PODComment on above:Arrived Start: 02-17-2025 End: 74-05-7643Zkdokxk encounter eyubltjut88/29/2025 2:45 PM EDT Office Visit [facility] [address] [facility] [address] [place] [address] Philip Monroy, PAJosse [address] [facility] [address] [place] [address] [facility] ThroatStart: 94-29-8982Jubsoz Wellness Visit (Medicare)Annual Wellness Visit (Medicare)[facility] CenterStart: 86-52-9482FM CAT/MRI W/ IV SEDATION (Not Applicable)OR CAT/MRI W/ IV SEDATION (Not Applicable)[facility] Daytontart: 75-80-6547XFTOR-19 Vaccine ( season) COVID-19 Vaccine ( season)[facility] CenterStart: 12-21-2024 COVID-19 Vaccine ( season)COVID-19 Vaccine ( season) [facility]Start: 48-95-3892TOAAR-19 Vaccine ( season)COVID-19 Vaccine ( season)[facility] HealthcareStart: 33-26-0258YSULQ-19 Vaccine ( season)COVID-19 Vaccine ()[facility] Start: 11-92-2893Zgwpbdapl vaccinationNOGA HealthcareStart: 98-25-7326Frdsdodnu vaccinationFlu vaccine (#1)[facility] CenterStart: 11-03-2024 End: 40-01-2411Llubzzp encounter mplrwaayz83/15/2025 11:00 AM EDT Procedure Visit [facility] [address] [place] [address] Lai Alston, DPM FACFAS [address] [place] [address] [facility] SpecialistsStart: 82-84-1908Gseouy Oral ExamDental Oral ExamMetroHealthStart: 53-89-8971Uqsaec ProphylaxisDental ProphylaxisMetroHealthStart: 08-25-2024 End: 76-20-6341Mhgmyxg encounter procedureANA [place]INTONComment on above: ArrivedStart: 08-19-2024 End: 48-70-7797Kpymfmj encounter ezsodhjqe68/30/2025 11:00 AM EDT Procedure Visit [facility] [address] [place] [address] Lai Alston, DPM FACFAS [address] [place] [address] [facility] NMA PODStart: 08-11-2024 End: 05-06-6118Bifgtan encounter procedureANA BELLEVUEComment on above:Arrived Start: 06-10-2024 End: 12-48-4913Sijqiyt encounter procedureNOMS NMA PODComment on above:Arrived Start: 05-12-2024 End: 35-41-3503Udiudxm encounter /21/2025 11:20 AM EST Office Visit [facility] [place] [facility] [address] [place] [address] Radha Martinez PA [address] [place] [address] [facility] R[facility]TEStart: 03-02-2024 End: 27-24-7560Mddzqkkrd to same day surgery cczpzw4203/02/2024 9:14 AM EST - 03/02/2024 10:[address] [facility] [address] [place], [place] [address] Elmer Topete [address] [place] [address] Ambulatory SurgeryComment on above:DENTAL RESTORATIONSStart: 03-02-2024 End: 22-13-8962ZUNNUX RESTORATIONSMetroHealthStart: 03-02-2024 End: 48-63-8235Ctwasaljv to same day surgery jyvopo5303/02/2024 7:40 AM EST - 03/02/2024 9:[address] [facility] [address] [place] [address] Elmer Topete [address] [place] [address] [facility] Ambulatory SurgeryComment on above:DENTAL RESTORATIONSStart: 03-02-2024 End: 56-41-9848MCZQFZ RESTORATIONSDENTAL RESTORATIONS Routine scheduled Caries 03/02/2024 7:40 AM ESTMetroHealthStart: 19-45-9529Tgtrfonlve hospital visit by physicianSt. [facility] of [facility] Ambulatory SurgeryStart: 03-02-2024 End: 64-06-1770Urbhffd encounter procedureMetroFulton County Health Center DentistryStart: 02-05-2024 End: 73-28-7453Fuyetpy encounter xzqfdrmik45/16/2024 9:15 AM EDT Office Visit [facility] Pre-Admission Testing [address] [place] [address] Refugio Ferrell, ENGRAVING OPERATOR-RUSSIAN LANGUAGE PROFESSOR [address] [place] [address] [facility] Pre-Admission TestingStart: 53-82-0226Byckuhkid vaccinationInfluenza Vaccine (#1)[facility] Start: 01-21-2024 End: 24-33-0979Bttkykbxauy levelLamotrigine level Lab Routine Seizure disorder (CMS/HCC) Expected: 01/21/2024 (Approximate), Expires: 01/20/2025[facility] Work Phone: comment on above:Expected: 01/21/2024 (Approximate), Expires: 01/20/2025Start: 01-21-2024 End: 72-11-4415Mvfqaysm acid level, totalValproic acid level, total Lab Routine Seizure disorder (CMS/HCC) Expected: 01/21/2024 (Approximate), Expires: 01/20/2025[facility] HealthcareComment on above:Expected: 01/21/2024 (Approximate), Expires: 01/20/2025Start: 84-89-5261AFRBQ-19 Vaccine ( season)COVID- 19 Vaccine ( season)[facility]HealthStart: 08-77-4248WFDYN-19 Vaccine ( season)COVID-19 Vaccine ( season)[facility]HealthStart: 59-31-0930Dalbwsinq vaccinationInfluenza Vaccine (#1)[facility]HealthStart: 70-71-5562Ykrolyfuk for malignant neoplasm of cervixNOMS HealthcareStart: 33-34-6373Dqskgrurp vaccinationInfluenza Vaccine (#1)[facility]HealthStart: 27-06-6206QElS,Tdap and Td Vaccines (3 - Td or Tdap)DTaP,Tdap and Td Vaccines (3 - Td or Tdap)[facility] SystemStart: 89-21-7575ZDUPE-19 Vaccine (3 - Booster for Pfizer series)COVID-19 Vaccine (3 - Booster for Pfizer series) [facility]HealthStart: 27-69-6739PQD Vaccine (optional start 27-45 years)HPV Vaccine (optional start 27-45 years)[facility]HealthStart: 44-08-7694YJJ Vaccines (1 - 3-dose SCDM series)HPV Vaccines (1 - 3-dose SCDM series)[facility] HealthcareStart: 85-84-9281Hnvpldtwx for malignant neoplasm of cervixPap SmearMetroHealthStart: 92-55-0530Ukmipy wellness visitAnnual Wellness Visit (G0438)[facility]HealthStart: 45-25-5581AGaD/Tdap/Td vaccine (1 - Tdap)DTaP/Tdap/Td vaccine (1 - Tdap)[facility] CenterStart: 84-40-4753Mxuuwgmky A (HAV) Vaccine (optional start 19+ years)Hepatitis A (HAV) Vaccine (optional start 19+ years)[facility]Start: 74-38-1590Qfpvuwyyd B vaccinationHepatitis B (HBV) Vaccine (1 of 3 - 19+ 3-dose series)[facility]HealthStart: 91-81-6932Acrcnvlsx B vaccine (1 of 3 - 19+ 3-dose series)Hepatitis B vaccine (1 of 3 - 19+ 3-dose series)[facility] Start: 95-85-2588Zbordkjcr B Vaccines (1 of 3 - 19+ 3-dose series)Hepatitis B Vaccines (1 of 3 - 19+ 3-dose series)[facility] HealthcareStart: 95-31-0687Exwnr BMI ScreeningAdult BMI ScreeningProOhiohealth Hardin Memorial Hospital SystemStart: 54-30-9908Idlfnudrh C screeningMetroHealthStart: 37-39-0372Guidxia + diphtheria + acellular pertussis vaccine (product)Tdap BoosterMetroHealthStart: 19-64-5709NAD screening [facility]HealthStart: 67-74-8123Twtpgeb of varicella vaccinationVaricella Vaccines (1 of 2 - 13+ 2-dose series)[facility] HealthcareStart: 68-55-6421Netnikgni vaccine (1 of 2 - 13+ 2-dose series)Varicella vaccine (1 of 2 - 13+ 2-dose series)Bon [facility] HospitalStart: 97-59-6341Sxqviwulhk ScreenDepression ScreenBon [facility] HospitalStart: 21-63-7007Ohbdlxcvkj ScreeningDepression Screening [facility] SystemStart: 46-78-9038Xitchjd ScreeningTobacco Screening [facility] SystemStart: 30-21-5418RVpG/Tdap/Td Vaccines (1 - Tdap) DTaP/Tdap/Td Vaccines (1 - Tdap)[facility] HealthcareStart: 87-94-7803BUD Vaccines (1 of 1 - Standard series)MMR Vaccines (1 of 1 - Standard series)[facility] Healthcare Start: 1993Medicare Annual Wellness (AWV)Medicare Annual Wellness (AWV) NOM HealthcareDENTAL RESTORATIONSDENTAL RESTORATIONS Routine scheduled Caries MetSt. [facility] End: 45-79-8602NXKFZLQC PACU OXYGEN THERAPY PROTOCOLInitiate PACU Oxygen Therapy Protocol Respiratory Care Routine Continuous until discontinued starting 02/26/2025 BannerRentablesComment on above:Continuous until discontinued starting 02/26/2025Oxygen therapy [Minimum Data Set]Initiate Oxygen Therapy Protocol Respiratory Care Routine As Needed until discontinued starting [employer] Work Phone: Comment on above:As Needed until discontinued starting 02/26/2025[facility] referralNorwalk [facility] Work Phone: End: 76-67-3900Pudisjnlqmm allergy panelRespiratory allergy panel Lab Routine Chronic rhinitis Other allergy, initial encounter 1 Occurrences starting 02/24/2025 until 02/24/2026[facility] Work Phone: Comment on above:1 Occurrences starting 02/24/2025 until 02/24/2026Respiratory allergy panelRespiratory allergy panel Lab Routine Chronic rhinitis Other allergy, initial encounter 02/24/2025 10:42 AM EST RegistryLove SystemSpirometry panelIncentive spirometry Respiratory Care Routine Every 2hr while awake until discontinued starting 02/26/2025 BannerRentablesComment on above:Every 2hr while awake until discontinued starting 02/26/2025 End: 32-57-9546Wbfrp , POCTUrine , POCT Point of Care Testing Routine One Time for 1 Occurrences starting 02/26/2025 until 02/26/2025on Marika Magruder HospitalComment on above:One Time for 1 Occurrences starting 02/26/2025 until 02/26/2025 Payers DatePayer CategoryPayerPolicy [id number]-[id number] 01-29-5158Vabetj --Stand AloneDENTAL-MEDICAID Member Subscriber Plan / Payer (Effective 2014-Present) Name: Ponce Esteves Relation to Subscriber: Self Name: Ponce Esteves Payer ID: Not on file Group ID: Not on file Type: Medicaid Address: [address] [place] [id number] [id number] 2013M[id number] 2013Medicare [facility] MEDICARE [id number] 2.16.840.1.988467.3.57[id number] 2.16840.1.759740.3.57[id number] 2.16840.1.741253.3.57[id number] 2.16840.1.735105.3.57[id number] 2.840.1.066616.3.57[id number] 2.840.1.884886.3.579.2.[id number] 2.840.1.905943.3.579.[id number] 2.840.1.713122.3.579.2.533817-87-1960Jfyctbc5855268 2.840.1.834815.3.579.2.684598-10-2491Nibroxi3957950 2.840.1.428080.3.579.2.025440-24-8103Kjseewb1240677 2.840.1.097778.3.579.[id number] 2.840.1.938121.3.579.2.[id number] 2.840.1.164797.3.579.[id number] 2.840.1.893974.3.579.[id number] 2.840.1.470778.3.579.2.175 [id number] 1960Medicare [id number] 2.840.1.405626.3.579.2. [id number] 2.840.1.680224.3.579.[id number] 2.840.1.544939.3.579.2.79493-39-4635Ymhhusk8253734 2.840.1.787636.3.57[id number] 2.840.1.725247.3.579.2.23990-76-6223Jtrxzli5420964 2.840.1.020631.3.579.2.93225-72-1431Ytuyaul1374961 2.840.1.109535.3.579.[id number] 2.840.1.010174.3.57[id number] 2.840.1.283393.[id number] 47s27696-wj21-55fh-[id number] 2.840.1.6349[id number] 2.840.1.382479.3.579.2.531 [id number] 2.0.1.112676.3.579.2.531 Social History DateTypeDetailFacilityTobacco smoking status NHISTobacco smoking consumption unknownMetroHealthStart: 23-94-7240Pwq Assigned At BirthNot on fileMetroHealth Start: 10-01-2023 End: 59-31-0369Xabsft identityNot on [facility] SystemStart: 09-03-2017 End: 24-70-4276Tsydssn smoking status NHISNever smoked tobaccoNOMS Healthcare Start: 09-03-2017 End: 58-35-3838Ltdsred use and exposureSmokeless tobacco non-userNOMS Healthcare Start: 10-01-2023 End: 15-69-4810Lfqtohbev beverage intakeLifetime non-drinker (finding)[facility] HealthcareStart: 10-01-2023 End: 73-36-1295Lvlrggn of Social functionPremier Health [facility] SystemStart: 07-06-2014 End: 47-52-8044OdeUnivxp (finding)[facility]HealthStart: 07-01-2019 End: 03-56-3890Zzlthesla beverage intakeCurrent non-drinker of alcohol (finding) [facility] SystemStart: 81-56-5811Lyoykwncms depression screening szmzqumfro9VkpQzikvtAtrium Health Wake [facility] Medical Centertart: 12-83-2329Spv Assigned [facility]tart: 59-68-6428Rguczql of drug misuse behaviorHas never misused drugs (situation)[facility] Goals DatePatient GoalDesired Activity/State Clinical Notes 03-13-2022 to 02-26-2025 Note Date & [id number] Hospital Discharge instructions* Discharge Instructions* Korina Ríos RN - 02/26/2025 1:39 PM EST No alcoholic beverages, no driving or operating machinery, no making important decisions for 24 hours. You may have a normal diet but should eat lightly day of surgery. Drink plenty of fluids. Urinate within 8 hours after surgery, if unable to urinate call your doctor documented in this encounterBon [facility] History of Present illness Narrative* Shanna Stoll MD - 02/24/2025 9:30 AM EST Images from the original note were not included. [facility] [...] developmental disorder Pica RUQ abdominal pain Seizures [facility] Sleep apnea Strabismus Thickening of wall of gallbladder Thyroid nodule LEFT Vomiting 09/03/2017 Weight loss PAST SURGICAL HISTORY: Past Surgical History: Procedure Laterality Date EGD N/A 2018 Performed by Destiney Magaña MD at [facility] TO[facility] EXTRACTION FAMILY HISTORY: Family History Problem Relation Age of Onset Hypothyroidism Father SOCIAL HISTORY: Social History Socioeconomic History Marital status: Single Tobacco Use Smoking status: Never Smokeless tobacco: Never Substance and Sexual Activity Alcohol use: No Drug use: No Sexual activity: Defer Environmental History: Allergy Environmental History [facility] [facility] Secondhand Smoke Exposure?: No Pets: no pets Mold/mildew: No Housing Type: [facility] AC: Central Air Conditioning Heating: Furnace [...] both accurate and complete. Shanna Stoll MD [facility] Total time spent was 45 minutes: preparing to see the patient (e.g., review of tests), obtaining and/or reviewing history, examination, counseling and educating the patient/family/caregive, orders and documenting clinical information in the electronic or other health record. documented in this encounterNationwide Children's HospitalTorex Retail Canada [facility] Women'S HospitalXjjnzj94-05-0059 Instructions* Patient Instructions* Shanna Stoll MD - [...] pending allergy test results. documented in this encounterL[facility] History of Present illness Narrative* Lai Alston DPM FACFAS - 02/23/2025 9:30 AM EST Images from the original note were not included. patient: Ponce Esteves : 1995 PCP: Natahn Iyer MD SUBJECTIVE This is a 30 [...] affect 08/06/2023 Gait instability 08/06/2023 Seizure disorder ([facility]) Mental disability 01/15/2024 Resolved Ambulatory [...] subungual debris. They were painful to palpation 84289 on the right 64625 on the left. VASC: DP /PT were nonpalpable bilateral. Capillary refill time < 3 seconds Digits 1-5 bilateral NEURO: [place] Cecy 5.07 monofilament was intact B/L. Vibratory [...] bedtime, Disp: , Rfl: documented in this encounterFitzgibbon HospitalZethtludje97-99-5279 Evaluation note* Diagnosis Onset Date Resolution Status Admit Date Autism acuteOctober 2024 12:36pmMental deficiencyacuteOctober 2024 12:36pm Gait instabilitychronicOctober 2024 12:36pmSeizure disorderchronicOctober 2024 12:36pm [facility] Work Phone: 1(258) 642-887909-04-2025 History of Present illness Narrative* Philip Monroy PA-C - 12/24/2024 10:15 AM EDT [facility] [address] [place] [phone] SUBJECTIVE: Patient ID (1995): Ponce Estevse is a 29 y.o. female presents today for Chief Complaint Patient presents with Sinus Problem Nasal Congestion HPI: Ponce is seen as a new patient in consultation for recurrent sinusitis and chronic nasal congestion. She is present with her mother and caregiver who provide the history. She has a history of autism and developmental delay and resides at [facility]. Mom reports that Ponce experiences [...] a brain MRI to be completed at [facility] in [place] next week which has to be done [...] 2018 Performed by Destiney Magaña MD at [facility] Family History Problem [...] [facility] - [place], [place] - [facility] [place], [place]; Future Nasal congestion - [facility] - [place], [place] - [facility] [place], [place]; Future - azelastine (ASTELIN) 137 mcg (0.1 %) nasal spray; Administer 2 sprays into each nostril in the morning and 2 sprays before bedtime. Use in each nostril as directed. - mometasone (NASONEX) 50 mcg/actuation nasal spray; Administer 2 sprays into each nostril in the morning. Plan: Ponce Estvees was seen and evaluated. Examination was limited [...] to ensure the accuracy of this automated pathology transcriptionist, some errors in pathology transcriptionist may have occurred. Philip Monroy PA-C 12/24/24 1224 documented in this encounterLake County [facility] - West08-05-2025 History of Present illness Narrative* Lai Alston [...] subungual debris. They were painful to palpation 50021 on the right 34201 on the left. VASC: DP /PT were nonpalpable bilateral. Capillary refill time < 3 seconds Digits 1-5 bilateral NEURO: [place] Cecy 5.07 monofilament was intact B/L. Vibratory [...] 1through 10. MAURA Salas documented in this encounterFitzgibbon [id number] History of Present illness Narrative* MAURA Salas [...] subungual debris. They were painful to palpation 30093 on the right 76376 on the left. VASC: DP /PT were nonpalpable bilateral. Capillary refill time < 3 seconds Digits 1-5 bilateral NEURO: [place] Cecy 5.07 monofilament was intact B/L. Vibratory [...] 1through 10. MAURA Salas documented in this encounterFitzgibbon HospitalYcdayrhigz76-32-7591 History of Present illness Narrative* PERRY Vazquez [...] Review Audit Reviewed by Freida Amezquita MA (Desk Operator) on 08/11/24 at 1017 Medication Order Taking? Sig Documenting Provider Last Dose Status ammonium lactate (Amlactin) 12 % cream [id number] Apply 2 application topically Daily Patient not taking: Reported on 06/03/2024 Historical ProviderMD Active busPIRone (Buspar) 30 MG tablet [id number] Take 30 mg by mouth in the morning and 30 mg in the evening and 30 mg before bedtime. Historical ProviderMD Active cloNIDine (Catapres) 0.2 MG tablet [id number] Take 0.2 mg by mouth in the morning and 0.2 mg at noon and 0.2 mg in the evening and 0.2 mg before bedtime. Real Schneider MD Active divalproex (Depakote) 125 MG EC tablet [id number] Take 500 mg by mouth in the morning and 500 mg in the evening and 500 mg before bedtime. Real Schneider MD Active divalproex (Depakote) 125 MG EC tablet [id number] Take 1,000 mg by mouth at bedtime Do not crush, chew, or split. Historical MD Jennie Active famotidine (Pepcid) 40 MG tablet [id number] Take 40 mg by mouth Daily Historical MD Jennie Active guanFACINE (Tenex) 2 MG tablet [id number] Take 2 mg by mouth in the morning and 2 mg before bedtime. Real Schneider MD Active lamoTRIgine (LaMICtal) 100 MG tablet [id number] Take 100 mg by mouth at bedtime Historical MD Jennie Active lamoTRIgine (LaMICtal) 150 MG tablet [id number] Take 150 mg by mouth in the morning. Real Schneider MD Active levothyroxine (Synthroid, Levoxyl) 200 MCG tablet [id number] Take 200 mcg by mouth in the morning. Take before meals. Historical ProviderMD Active levothyroxine (Synthroid, Levoxyl) 25 MCG tablet [id number] Take 25 mcg by mouth in the morning. Takebefore meals. Real Schneider MD Active loratadine (Claritin) 10 MG tablet [id number] Take 10 mg by mouth Daily Historical ProviderMD Active Melatonin 3 MG tablet dispersible [id number] Take 3 mg by mouth at bedtime Historical ProviderMD Active norethindrone-ethinyl estradiol (Ortho-Novum, Nortrel) 1-35 MG-MCG tablet [id number] Take 1 tablet bymouth Daily Historical ProviderMD Active paliperidone (Invega) 3 MG 24 hr tablet [id number] Take 3 mg by mouth in the morning and 3 mg before bedtime. Do not crush, chew, or split.. Historical ProviderMD Active polyethylene glycol, PEG, 3350 (Miralax) 17 g packet [id number] Take 17 g by mouth Daily Historical ProviderMD Active QUEtiapine (SEROquel) 200 MG tablet [id number] Take 200 mg by mouth at bedtime Historical MD Jennie Active QUEtiapine (SEROquel) 400 MG tablet [id number] Take 400 mg by mouth at bedtime Historical ProviderMD Active HPI History obtained from caregiver report from [place] Caregiver from [place] here with patient today SEIZURE -on lamictal and depakote -denies any missed doses -denies any recent seizure -[place] continues to use a wheelchair -she is [...] triceps, wrist extensors, wrist extensors, wrist flexor, balance and hairspring assembler strength 5/5. LUE Strength deltoid, biceps, triceps, wrist extensors, wrist extensors, wrist flexor, balance and hairspring assembler strength 5/5. RLE Strength illopsoas, quadriceps, tibialis [...] is note from PT and staff at [place] that the patient has had continued loss [...] or CTA she would require sedation per [place]. She continues with balance disturbance and worsening strength per PT at [place]. Blood work 09/12/2023: Valproic acid level 93.9, [...] Progress notes and PT notes reviewed from [place]. We will look into local options for [...] Follow up after imaging. documented in this encounterFitzgibbon [id number] History of Present illness Narrative* Lai Alston [...] Past Medical History: Diagnosis Date Anxiety Autism (CMS/[facility]) Disturbance of salivary secretion Mood [...] subungual debris. They were painful to palpation 25178 on the right 49875 on the left. VASC: DP /PT were nonpalpable bilateral. Capillary refill time < 3 seconds Digits 1-5 bilateral NEURO: [place] Cecy 5.07 monofilament was intact B/L. Vibratory [...] 1through 10. MAURA Salas documented in this encounterFitzgibbon [id number] History of Present illness Narrative* PERRY Vazquez [...] Review Audit Reviewed by Krista Wu MA (Desk Operator) on 06/03/24 at 0955 Medication Order Taking? Sig Documenting Provider Last Dose Status ammonium lactate (Amlactin) 12 % cream [id number] Apply 2 application topically Daily Patient not taking: Reported on 06/03/2024 Historical MD Jennie Active busPIRone (Buspar) 30 MG tablet [id number] Take 30 mg by mouth in the morning and 30 mg in the evening and 30 mg before bedtime. Historical MD Jennie Active cloNIDine (Catapres) 0.2 MG tablet [id number] Take 0.2 mg by mouth in the morning and 0.2 mg at noon and 0.2 mg in the evening and 0.2 mg before bedtime. Historical MD Jennie Active divalproex (Depakote) 125 MG EC tablet [id number] Take 500 mg by mouth in the morning and 500 mg in the evening and 500 mg before bedtime. Real Schneider MD Active divalproex (Depakote) 125 MG EC tablet [id number] Take 1,000 mg by mouth at bedtime Do not crush, chew, or split. Real Schneider MD Active famotidine (Pepcid) 40 MG tablet [id number] Take 40 mg by mouth Daily Real Schneider MD Active guanFACINE (Tenex) 2 MG tablet [id number] Take 2 mg by mouth in the morning and 2 mg before bedtime. Real Schneider MD Active lamoTRIgine (LaMICtal) 100 MG tablet [id number] Take 100 mg by mouth at bedtime Real Schneider MD Active lamoTRIgine (LaMICtal) 150 MG tablet [id number] Take 150 mg by mouth in the morning. Real Schneider MD Active levothyroxine (Synthroid, Levoxyl) 200 MCG tablet [id number] Take 200 mcg by mouth in the morning. Take before meals. Real Schneider MD Active levothyroxine (Synthroid, Levoxyl) 25 MCG tablet [id number] Take 25 mcg by mouth in the morning. Takebefore meals. Historical ProviderMD Active loratadine (Claritin) 10 MG tablet [id number] Take 10 mg by mouth Daily Historical ProviderMD Active Melatonin 3 MG tablet dispersible [id number] Take 3 mg by mouth at bedtime Historical ProviderMD Active norethindrone-ethinyl estradiol (Ortho-Novum, Nortrel) 1-35 MG-MCG tablet [id number] Take 1 tablet bymouth Daily Historical ProviderMD Active paliperidone (Invega) 3 MG 24 hr tablet [id number] Take 3 mg by mouth in the morning and 3 mg before bedtime. Do not crush, chew, or split.. Historical ProviderMD Active polyethylene glycol, PEG, 3350 (Miralax) 17 g packet [id number] Take 17 g by mouth Daily Historical ProviderMD Active QUEtiapine (SEROquel) 200 MG tablet [id number] Take 200 mg by mouth at bedtime Historical ProviderMD Active QUEtiapine (SEROquel) 400 MG tablet [id number] Take 400 mg by mouth at bedtime Historical ProviderMD Active HPI History obtained from caregiver report from [place] Caregiver from [place] here with patient today SEIZURE -on lamictal and depakote -denies any missed doses -denies any recent seizure -[place] continues to use a wheelchair for long [...] triceps, wrist extensors, wrist extensors, wrist flexor, balance and hairspring assembler strength 5/5. LUE Strength deltoid, biceps, triceps, wrist extensors, wrist extensors, wrist flexor, balance and hairspring assembler strength 5/5. RLE Strength illopsoas, quadriceps, tibialis [...] or CTA she would require sedation per [place]. She had two recent falls 07/17/23and 08/02/23. She was evaluated at [facility] ER. Lamictal dose was recently decreased, although [...] seizure prevention Continue with fall precautions at [place] and assisted transfers and supervision/assistance with ambulation to avoid falls. She is at a high risk of trauma and debility associated with falls. Follow up 2 months documented in this encounterFitzgibbon [id number] History of Present illness Narrative* Lai Alston [...] Past Medical History: Diagnosis Date Anxiety Autism ([facility]) Disturbance of salivary secretion Mood [...] subungual debris. They were painful to palpation 69559 on the right 26439 on the left. VASC: DP /PT were nonpalpable bilateral. Capillary refill time < 3 seconds Digits 1-5 bilateral NEURO: [place] Cecy 5.07 monofilament was intact B/L. Vibratory [...] the nails. MAURA Salas documented in this encounterFitzgibbon [id number] Hospital Discharge instructions* Discharge Instructions* Rehana Aguillon RN - 03/02/2024 12:22 PM EST PERIOPERATIVE DISCHARGE/HOME-GOING INSTRUCTIONS ANESTHESIA - GENERAL (ADULT) If a problem arises, you may contact your physician by calling [phone] and asking for the resident automotive power electronics engineer for Dental service. Special Care Needs: Activity: [...] very uncomfortable and can t urinate, call [phone] or come to the emergency room. A [...] the home going instructions. documented in this [id number] Miscellaneous Notes* Brief Operative Note - Paula Contreras DDS - 03/02/2024 10:26 AM EST Brief Operative Note P[facility] OR 3 Ponce Esteves 29 year old female Surgical Contact Serial Number: [id number] Preoperative Diagnosis: Pre-op Diagnosis * Caries [K02.9] Postoperative Diagnosis: * Caries [K02.9] Procedures: Full mouth x-ray [86532] Prophylaxis [48005] Restorations [32987] Floride application [99729] Surgeon(s): Surgeon(s): Elmer Topete DDS Staff: Halal Butcher Nurse: Trudi Padilla Olive Brine Tester: Paula Contreras DDS; Melquiades Christie DDS Anesthesia: General Anesthesiologist: Milton Luna MD PROJECT ENGINEER: Adalgisa Smith APRN-DARSHAN Crop Adjuster: Dayanna Preciado MD Specimen(s): * No specimens [...] discussed with the patient and/or legal insurance follow up representative. The risks, benefits and alternatives were reviewed. Questions regarding blood transfusions were answered. The patient /or the patient s legal insurance follow up representative agree with the plan for transfusion of blood and/or blood components. * OP Note - Paula Contreras DDS - 03/01/2024 6:14 PM EST Surgical Case Number Data Unavailable Operating Room Data Unavailable Preoperative Diagnosis(es): Caries [k02.9] Surgeon: Dr. Topete Line Haul Owner Operator Surgeon: Melquiades Arias DDS - Paula [...] the treatment plan included the following: Composite lutheran on tooth#7 surface ML. Amalgam restorations on [...] 03/02/2024 11:56 AM EST documented in this [id number] Surgery Postoperative evaluation and management note* Brief Operative Note - Paula Contreras DDS - 03/02/2024 10:26 AM EST Brief Operative Note PHE OR 3 Ponce Esteves 29 year old female Surgical Contact Serial Number: [id number] Preoperative Diagnosis: Pre-op Diagnosis * Caries [K02.9] Postoperative Diagnosis: * Caries [K02.9] Procedures: Full mouth x-ray [48186] Prophylaxis [28504] Restorations [88819] Floride application [49385] Surgeon(s): Surgeon(s): Elmer Topete DDS Staff: Halal Butcher Nurse: Trudi Padilla Olive Brine Tester: Paula Contreras DDS; Melquiades Christie DDS Anesthesia: General Anesthesiologist: Milton Luna MD PROJECT ENGINEER: Adalgisa Smith APRN-DARSHAN Crop Adjuster: Dayanna Preciado MD Specimen(s): * No specimens [...] Topete DDS at 03/02/2024 11:55 AM EST [id number] History and physical note* Melquiades Christie DDS - 03/02/2024 9:38 AM EST Images from the original note were not included. Surgical History and Physical [facility] [address] [place] [address] Name: Ponce Esteves : 1995 29 year old CSN: [id number] Attending: Elmer Topete DDS Date of Admission: 03/02/2024 8:38 AM Room/Bed: [facility] OR/NONE Planned Procedure: Procedure(s): DENTAL RESTORATIONS HPI: [...] surgical history indicates: EXTRACTION, TOOTH (09/15/2014) Procedure: Lima teeth; Surgeon: Bradley Goodwin DDS; Location: PERIOPERATIVE [...] or any previous visit (from the past 35211 hours). BMP (last 3 years, up to [...] Topete DDS at 03/02/2024 11:48 AM EST [facility] Work Phone: 1(943) 918-550011-11-[address] [facility] [address] [place] [address] Name: Ponce Esteves : 1995 29 year old CSN: [id number] Attending: Elmer Topete DDS Date of Admission: 03/02/2024 8:38 AM Room/Bed: [facility] OR/NONE Planned Procedure: Procedure(s): DENTAL RESTORATIONS HPI: [...] surgical history indicates: EXTRACTION, TOOTH (09/15/2014) Procedure: Lima teeth; Surgeon: Bradley Goodwin DDS; Location: PERIOPERATIVE [...] or any previous visit (from the past 52993 hours). BMP (last 3 years, up to [...] DDS. Melquiades Stewart DDS 03/02/24 9:38 AMThe [employer] [id number] History and physical note* Melquiades Christie DDS [...] Topete DDS at 03/02/2024 11:48 AM EST [id number] NoteSurgical Attestation: I have reviewed the patient's History and Physical Examination. I have personally seen and evaluated the patient, repeating cabrera portions. There is no significant interval change. Surgery is still indicated. Yes Consent reviewed and signed by patient/family: Yes Operative site verified and marked: site verified but not marked as not anatomically possible Melquiades Stewart DDS 03/02/2024 9:38 AMThe [facility] [id number] Progress note* Blood Attestation - Milton Luna MD - 03/02/2024 9:16 AM EST Blood Attestation: ATTESTATION OF INFORMED CONSENT FOR BLOOD: The transfusion of blood and/or blood components were discussed with the patient and/or legal insurance follow up representative. The risks, benefits and alternatives were reviewed. Questions regarding blood transfusions were answered. The patient /or the patient s legal insurance follow up representative agree with the plan for transfusion of blood and/or blood components. [facility] Work Phone: 1(918) 540-508811-11-2024 History of Present illness Narrative* Elmer Mcpherson DDS - 03/02/2024 8:12 AM EST ----- Saturday, March 02, 2024 at 11:38:59 AM ----- ----- Provider: [id number] Misael Rebolledo DDS -- Clinic: [facility] ----- [place] notes, [place] is ready for tx [place]. X-Rays look good, few cavities found and confirmed clinically. restos completed. OP Note by Paula Contreras DDS at 03/01/2024 6:14 PM Author: Paula Contreras DDS Service: Dentistry Author Type: Resident Filed: 03/02/2024 11:56 AM Date of Service: 03/01/2024 6:14 PM Note Type: OP Note Status: Cosign Needed Gasoline Tractor Operator: Paula Contreras DDS (Resident) Cosign Required: Yes Expand All Collapse All Surgical Case Number Data Unavailable Operating Room Data Unavailable Preoperative Diagnosis(es): Caries [k02.9] Surgeon: Dr. Topete Line Haul Owner Operator Surgeon: Melquiades Arias DDS - Paula [...] the treatment plan included the following: Composite lutheran on tooth#7 surface ML. Amalgam restorations on [...] 2024 at 11:57:17 AM ----- ----- Provider: [id number] Misael Rebolledo DDS -- Clinic: [facility] ----- documented in this [id number] Surgery Surgical operation note* OP Note - Paula Contreras DDS - 03/01/2024 6:14 PM EST Surgical Case Number Data Unavailable Operating Room Data Unavailable Preoperative Diagnosis(es): Caries [k02.9] Surgeon: Dr. Topete Line Haul Owner Operator Surgeon: Melquiades Arias DDS - Paula [...] the treatment plan included the following: Composite lutheran on tooth#7 surface ML. Amalgam restorations on [...] Topete DDS at 03/02/2024 11:56 AM EST [id number] NoteSurgical Attestation: I have reviewed the patient's History and Physical Examination. I have personally seen and evaluated the patient, repeating cabrera portions. There is no significant interval change. Surgery is still indicated. Yes Consent reviewed and signed by patient/family: Yes Operative site verified and marked: Verified but not marked Paula Contreras DDS 03/01/2024 6:10 [facility]11-[facility] Telephone encounter Note* Telephone Encounter - Ashleigh Kaplan RN - 02/24/2024 9:07 AM EST Anesthesia consent obtained and scanned into [facility]. Scheduled for surgery 03/02/2024. [id number] Miscellaneous Notes* Telephone Encounter - Ashleigh Kaplan RN - 02/24/2024 9:07 AM EST Anesthesia consent obtained and scanned into [facility]. Scheduled for surgery 03/02/2024. documented in this [id number] Telephone encounter Note* Telephone Encounter - Ashleigh Kaplan RN - 02/21/2024 12:22 PM EDT Anesthesia consent obtained and scanned into [facility]. Scheduled for surgery 03/02/2024. [id number] Miscellaneous Notes* Telephone Encounter - Ashleigh Kaplan RN - 02/21/2024 12:22 PM EDT Anesthesia consent obtained and scanned into [facility]. Scheduled for surgery 03/02/2024. documented in this [id number] Instructions* Discharge Instructions* Kelly Cabello RN - [...] [facility] business day prior to surgery [...] your Preparing for Your Surgery/Procedure booklet or [facility] ([email or web address] if you have questions. Contact the Pre-Admission Testing department at [phone] or your surgeon's office with any questions [...] a car, cab, shared ride service, or [employer]-van. You will not be allowed to drive yourself home or travel home alone. Your surgery may be cancelled if you do not have a ride. A responsible adult must stay with you after surgery. Please call [employer] if you need transportation assistance or have concerns about going home [phone]. ? PLEASE BE ON TIME. A late arrival may result in the cancellation/ delay of your surgery. Thank you for choosing [facility]; it is our pleasure to care for you documented in this [id number] Evaluation note* PAT Call History - Kelly Cabello, RN - 02/19/2024 11:55 AM EDT Telephone History Ponce Esteves, [id number] 02/19/2024 Patient was identified by name and date of via Jerman, caregiver. Needs: Physical, Neck Circumference, BHCG, and ED on DOS. Note: OSH records/labs scanned to media assistant. If the patient becomes ill prior to procedure or surgery, they are to call their provider or surgeon's office directly. 29 year old 136.6 lbs 5' 4 Date of Surgery: 03/02 Surgeon: Yoselyn Type of Surgery: DENTAL RESTORATIONS HISTORY OF PRESENT ILLNESS: telephone history for the upcoming surgery at [facility], [address] [place], enter through the matlock entrance doors. 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 Fluticasone Propionate (FLONASE NASAL) [place] into each nostril. Selenium (SELENIMIN ORAL) Take [...] otherwise contacted. ? Expect a call from [facility] one business day prior to surgery for [...] your Preparing for Your Surgery/Procedure booklet or [email or web address] if you have questions. Contact the Pre-Admission Testing department at [phone] or your surgeon's office with any questions [...] stay with you after surgery. Please call [email or web address] if you need transportation assistance or have concerns about going home [phone]. ? PLEASE BE ON TIME. A late arrival may result in the cancellation/ delay of your surgery. Thank you for choosing [facility]; it is our pleasure to care for you Kelly Cabello RN Time Spent Performing this Telephone History: 48 with follow-up [place]: [id number] Miscellaneous Notes* PAT Call History - Kelly Cabello RN - 02/19/2024 11:55 AM EDT Telephone History Ponce Esteves, [id number] 02/19/2024 Patient was identified by name and [...] telephone history for the upcoming surgery at [facility], [address] [place], enter through the [facility] doors. 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 Fluticasone Propionate (FLONASE NASAL) [place] into each nostril. Selenium (SELENIMIN ORAL) Take [...] otherwise contacted. ? Expect a call from [facility] one business day prior to surgery for [...] questions. Contact the Pre-Admission Testing department at [phone] or your surgeon's office with any questions [...] stay with you after surgery. Please call [facility] Social Work if you need transportation assistance or have concerns about going home [phone]. ? PLEASE BE ON TIME. A late arrival may result in the cancellation/ delay of your surgery. Thank you for choosing [facility]; it is our pleasure to care for you Kelly Cabello RN Time Spent Performing this Telephone History: 48 with follow-up [facility]: documented in this [id number] Miscellaneous Notes* PAT Call History - Kelly Cabello RN - 02/19/2024 11:55 AM EDT Telephone History Ponce Sonu, [id number] 02/19/2024 Patient was identified by name and date of via Jerman, caregiver. Needs: Physical, Neck Circumference, BHCG, and ED on DOS. Note: OSH records/labs scanned to media assistant. If the patient becomes ill prior to procedure or surgery, they are to call their provider or surgeon's office directly. 29 year old 136.6 lbs 5' 4 Date of Surgery: 03/02 Surgeon: Yoselyn Type of Surgery: DENTAL RESTORATIONS HISTORY OF PRESENT ILLNESS: telephone history for the upcoming surgery at [facility], [address] [place], enter through the [facility] doors. STOP-BANG Row Name 02/19/24 1832 History of sleep apnea? Yes NO PSG [...] (+) teeth problems missing Endo (+) hypothyroidism turret lathe tender - negative ROS Neuro/Psych (+) bipolar disorder, seizures, intellectual disability Cardiovascular - negative ROS GI/Hepatic/Renal (+) GERD Heme/Other - negative ROS PAST SURGICAL HISTORY: Past Surgical History: Procedure Laterality Date EUA, ORAL 09/15/2014 Procedure: EUA, ORAL; Surgeon: Bradley Goodwin DDS; Location: PERIOPERATIVE SERVICES; Service: Oral EXTRACTION, TOOTH Bilateral 09/15/2014 Procedure: Lima teeth; Surgeon: Bradley Goodwin DDS; Location: PERIOPERATIVE [...] Take by mouth. Fluticasone Propionate (FLONASE NASAL) [place] into each nostril. Selenium (SELENIMIN ORAL) Take [...] otherwise contacted. ? Expect a call from [facility] one business day prior to surgery for [...] your Preparing for Your Surgery/Procedure booklet or [email or web address] if you have questions. Contact the Pre-Admission Testing department at [phone] or your surgeon's office with any questions [...] stay with you after surgery. Please call [facility] Social Work if you need transportation assistance or have concerns about going home [phone]. ? PLEASE BE ON TIME. A late arrival may result in the cancellation/ delay of your surgery. Thank you for choosing [facility]; it is our pleasure to care for you Kelly Cabello RN Time Spent Performing this Telephone History: 48 with follow-up [facility]: documented in this [id number] History and physical note* Melquiades Christie DDS - 03/02/2024 9:38 AM EST Images from the original note were not included. Surgical History and Physical [facility] [address] [address] Name: Ponce Esteves : 1995 29 year old CSN: [id number] Attending: Elmer Topete DDS Date of Admission: 03/02/2024 8:38 AM Room/Bed: [facility] OR/NONE Planned Procedure: Procedure(s): DENTAL RESTORATIONS HPI: [...] surgical history indicates: EXTRACTION, TOOTH (09/15/2014) Procedure: Lima teeth; Surgeon: Bradley Goodwin DDS; Location: PERIOPERATIVE [...] or any previous visit (from the past 73961 hours). BMP (last 3 years, up to [...] 03/02/2024 11:48 AM EST documented in this [id number] Miscellaneous Notes* Telephone Encounter - Liliana Song - 04/30/2022 3:03 PM EST Bina from [facility] calling in. She wanted to know where the pt was at on the OR wait list. E-mail sent to Connie E-mail sent 04/30/22 documented in this [id number] Telephone encounter Note* Telephone Encounter - Liliana Song - 04/30/2022 3:03 PM EST Bina from [facility] calling in. She wanted to know where the pt was at on the OR wait list. E-mail sent to Connie E-mail sent 04/30/22 [id number] History of Present illness Narrative* Martha Coreas DMD - 03/13/2022 10:06 AM EST ----- Sunday, March 13, 2022 at 11:58:40 AM ----- ----- Provider: [id number] Coreas DMD -- Clinic: [place] ----- OR [...] available. Legal Guardian: Toshia Esteves Phone #: [phone] NOTE: Patient had a hard time leaning her head back, but allowed me to look. Patient not indicatingshe is in any pain. #8 is very discolored - most likely will need RCT treatment. Gingiva very red and irritated. Caregiver did not know who patient's guardian was or contact information, looked it up in [facility]. Next Visit: OR [facility]* Diagnosis Caries- Primary Unspecified dental caries [facility]* Diagnosis Caries- Primary Unspecified dental caries Caries- Primary Unspecified dental caries [facility]* Diagnosis Seizure disorder ([facility]/HCC)- Primary Unspecified epilepsy without mention of intractable epilepsy Mental deficiency ([facility]) Unspecified mental retardation Autism ([facility]) Autistic disorder, current or active [...] [facility]* Diagnosis Seizure disorder ([facility]/HCC)- Primary Unspecified epilepsy without mention of intractable epilepsy Autism ([facility]) Autistic disorder, current or active state Developmental delay Unspecified delay in development Gait instability Abnormality of gait [facility]* Diagnosis Onychomycosis- Primary Dermatophytosis of nail Pain in right toe(s) Pain in left toe(s) documented [facility] this encounter [facility]* Diagnosis Seizure disorder ([facility]/HCC)- Primary Unspecified epilepsy without mention of intractable [...] [facility] assessment information available [facility] Work Phone: Evaluation note* Diagnosis Onychomycosis- Primary Dermatophytosis of nail Pain in right toe(s) Pain in left toe(s) documented in this encounter [facility]* Diagnosis Other allergy, initial encounter- Primary Chronic rhinitis [facility] in this encounter [facility]* Diagnosis Unsteady gait Abnormality of gait Seizure disorder (HCC) Unspecified epilepsy without mention of intractable epilepsy [facility]* Diagnosis Unsteady gait Abnormality of gait Seizure disorder (HCC) Unspecified epilepsy without mention of intractable epilepsy documented in this encounter [facility] HealthInstructionsNot on filedocumented in this encounter [facility] SystemReason for referral (narrative)No reason for referral information availableCl[facility] Work Phone: Reason for visit Narrative* Auth/Cert (Routine) SpecialtyDiagnoses / ProceduresReferred By ContactReferred To Contact Ambulatory Surgery Diagnoses Caries Caries [K02.9] Procedures INTERDENTAL FIXATION. UNLISTED PROCEDURE, DENTOALVEOLAR STRUCTURES DENTAL RESTORATIONS Elmer Topete, DDS [address] [place] [address] Phone: tel: fax: [facility] [address] [place] [phone] Phone: tel: Referral IDStatusReasonStart DateExpiration DateVisits RequestedVisits [id number] [facility] for visit Narrative* Imaging (Routine) - Pending Review SpecialtyDiagnoses / ProceduresReferred By ContactReferred To ContactRadiology Diagnoses Unsteady gait Seizure disorder (HCC) Procedures MRI CERVICAL SPINE WO CONTRAST Дмитрий Feliciano M, DO [address] [place] [address] Phone: tel: fax: Referral IDStatusReasonStart DateExpiration DateVisits RequestedVisits [id number] [facility] Narrative* Imaging (Routine) - Pending ReviewSpecialtyDiagnoses / ProceduresReferred By ContactReferred To Contact Radiology Diagnoses Unsteady gait Seizure disorder (HCC) Procedures MRI BRAIN W WO CONTRAST Дмитрий Feliciano, DO [address] [place] [address] Phone: tel: fax: Referral IDStatusArabellaLaguna DateExpiration DateVisits RequestedVisits [id number] Bzbzoa73/ [facility] Summary Purpose Family History No Family History Records FoundNo Family History Records FoundNo Family History Records FoundNo Family History Records FoundNo Family History Records FoundNo Family History Records FoundNo Family History Records FoundNo Family History Records FoundNo Family History Records Found Advance Directives TypeDate RecordedPatient RepresentativeExplanationLiving Will09/03/2017 4:36 PM LEGAL [facility] Advance Directive Response Recorded Date/ Time Advance Directives No December 12:12pm TypeDate RecordedPatient RepresentativeExplanationLiving Will09/03/2017 4:36 PM LEGAL [facility] Reason for Referral SpecialtyDiagnoses / ProceduresReferred By ContactReferred To Contact Anesthesiology Diagnoses Caries Elmer Topete, DDS [address] [phone] [facility] PRE ADMISSION TESTING [address] [place] [address] Referral IDStatusLibra DateExpiration DateVisits RequestedVisits [id number]/ Scheduling Instructions Your surgical team will reach [...] and content) DATE CREATED AUTHOR 10/16/2017 [facility] DATE CREATED AUTHOR AUTHOR'S ORGANIZ ATION 09/02/2022 [facility] DATE CREATED AUTHOR AUTHOR'S ORGANIZ ATION 01/11/[address] [facility] DATE CREATED AUTHOR AUTHOR'S ORGANIZ ATION 03/10/2024 [facility] DATE CREATED AUTHOR AUTHOR'S ORGANIZ ATION 12/26/2024 [facility] DATE CREATED AUTHOR AUTHOR'S ORGANIZ ATION 01/22/2025 The [facility]placed [facility] DATE CREATED AUTHOR AUTHOR'S ORGANIZ ATION 02/24/2025 [facility] DATE CREATED AUTHOR AUTHOR'S ORGANIZ ATION 02/26/[address] [facility] DATE CREATED AUTHOR AUTHOR'S ORGANIZ ATION 03/01/2025 [facility] Reason for Visit (unrecogniz ed section and content) ReasonOnset LdieYayvgiduTsfywz01/09/2023ReasonCommentsSeizuresReasonOnset Date FfhafxnmNMP95/01/2024nesthesia consent obtainedReasonOnset DateCommentsPAT 02/24/2024nesthesia consent obtainedReasonOnset DateCommentsPre-surgical Qvsxuzkxlz67/06/2024D adult dental restorations 03/02 under [place] at [place]. PAT completed - anesthesia consent. ZOHRA RN spoke to Mary (nurse), confirmed NPO, [place] address, and 0900 arrival timeReasonCommentsToenail ProblemRT grt nail fungalReasonCommentsToenail CareNon DM nail careReasonCommentsSinus ProblemNasal CongestionSpecialtyDiagnoses / ProceduresReferred By ContactReferred To Contact Otolaryngology Diagnoses Recurrent sinus infections Nasal congestion Ref Prov, [place] [address] [facility] [address] [place] [address], [address] [place] [address] Phone: tel: fax: Referral IDStatusReasonStart DateExpiration DateVisits RequestedVisits [id number] Review Specialty Services Required /[id number] PatientRed puffy eyes, runny noses, more likely year roundSpecialtyDiagnoses / ProceduresReferred By ContactReferred To ContactAllergy and Immunology Diagnoses Recurrent sinus infections Nasal congestion Philip Monroy, TAMIKO [address] [facility] [address] [place] [address] Phone: tel: fax: [facility], A Department of [address] [place] [phone] Phone: tel: fax: Referral IDStatusReasonStart DateExpiration DateVisits RequestedVisits [id number] Review Care Teams (unrecognized sec tion and content) Team MemberRelationshipSpecialtyStart DateEnd Date Unallocated, May Schneider MD [address] [place] [address] PCP - GeneralFamily Medicine07/09/23 Kris Mcguire MD [address] [place] [address] Referring PhysicianNeurology07/09/23Team MemberRelationshipSpecialtyStart DateEnd Date Unallocated, May Schneider MD [address] [place], [place] [address] [address] PCP - GeneralFamily Medicine07/09/23 Kris Mcguire MD [address] [place] [address] Referring PhysicianNeurology07/09/23Team MemberRelationshipSpecialtyStart DateEnd Date Nathan Iyer MD [address] [place] [address] PCP - Generalmily Culbdgli00/19/24 Kris Mcguire MD [address] [place] [address] Referring PhysicianNeurology07/09/23Team MemberRelationshipSpecialtyStart End Date Nathan Iyer MD [address] [place] [address] [facility] - [facility] Snkevebh89/19/24 Kris Mcguire MD [address] [place] [address] Referring PhysicianNeurology07/09/23Team MemberRelationshipSpecialtyStart End Nathan Iyer MD [address] [place] [address] [facility] - [facility] Jichsflg83/19/24 Kris Mcguire MD [address] [place] [address] Referring PhysicianNeurology07/09/23Team MemberRelationshipSpecialtyStart End Date Nathan Iyer MD [address] [place] [address] PCP - GeneralFamily Cdkqacft10/19/24 Kris Mcguire MD [address] [place] [address] Referring PhysicianNeurology07/09/23Team MemberRelationshipSpecialtyStart DateEnd Date Nathan Iyer MD [address] [place] [address] [facility] - [facility] Fqstcgjy63/19/24 Kris Mcguire MD [address] [phone] Referring PhysicianNeurology07/09/23Team MemberRelationshipSpecialtyStart End Nathan Iyer MD [address] [place] [address] PCP - GeneralFami Eayeoecb39/19/24 Kris Mcguire MD Referring PhysicianNeurology07/09/23Team MemberRelationshipSpecialtyStart End Nathan Iyer MD [address] [place] [address] PCP - GeneralFami Tfksfguf51/19/24 Kris Mcguire MD Referring PhysicianNeurology07/09/23Team MemberRelationshipSpecialtyStart DateEnd Date Nathan Iyer MD [address] [place] [address] PCP - GeneralDavis [facility] Hospital And Clinicsly Pfrofjdj74/19/24 Kris Mcguire MD Referring PhysicianNeurology07/09/23Team MemberRelationshipSpecialtyStart DateEnd Date Nathan Iyer MD [address] [place], [place] [id number] P[facility] - [facility] Knfuvbvk43/19/24 Kris Mcguire MD Referring PhysicianNeurology07/09/23Team MemberRelationshipSpecialtyStart DateEnd Date Nathan Iyer DO [address] [place] [address] PCP - GeneralDavis County Hospital And Clinicsly Medicine08/23/17 Team Status: Active Member Role Status [...] MemberRelationshipSpecialtyStart DateEnd Date Nathan Iyer MD [address] [place] [address] PCP - GeneralFamily Ekuhrude07/19/24 Kris Mcguire MD Referring PhysicianNeurology07/09/23Team MemberRelationshipSpecialtyStart DateEnd Date Nathan Iyer MD [address] [place], [place] [id number] PCP - GeneralFamily Bonfivkl27/19/24 Kris Mcguire MD Referring PhysicianNeurology07/09/23Team MemberRelationshipSpecialtyStart DateEnd Date Nathan Iyer DO [address] [place] [address] PCP - GeneralFamily Medicine08/23/17Team MemberRelationshipSpecialtyStart DateEnd Date Nathan Iyer MD [address] [place] [phone] PCP - GeneralFamily Rksroqrd27/7/25Team MemberRelationshipSpecialtyStart DateEnd Date Nathan Iyer MD [address] [place] [address] PCP - GeneralFamily Sfmqqqsx97/7/25 PRN Active and Recently Administ ered Medications [...] BE BASED ON THE PRIMARY CLINICAL RECORDS. [employer] provides no warranty or guarantee of the accuracy or completeness of information in this document.
[2025-03-09 07:14] LABS: Glucose Urine UA NEGATIVE (NEGATIVE)
== END 2025-03-09 06:47 | disposition home or self-care (01) ==
LOC: LAB 06:46
PROVIDERS: PCP Family Medicine; Visit Provider Family Medicine
DX: R35.0 Frequency of micturition (principal)
CPT/HCPCS: 81001; 81003

== ENCOUNTER 2025-03-16 06:57 | Outpatient (OUT) | payer MEDICARE, MEDICAID, SELFPAY ==
--- OUTSIDE RECORDS SUMMARY | 2025-03-16 07:01 | XMS_ITS | CCD ---
Author Organization [facility] Care Team Providers Care [employer] Teacher Name Role Phone PHYSICIAN, [...] HERNANDEZ Consulting Unavailable IYER, NATHAN Arce Unavailable IYRE, NATHAN Annitting Unavailable Unavailable Primary Care Provider Unavailabl e Rock OLSON, Noms Provider Primary Care Provi roselyn Kris Mcguire MD Unavailable [phone] Unallocated MD, Noms Provider Primary Care Jaspreet roselyn ELMER TOPETE Attending Unavailable PROVIDER, UNKNOWN Admitting Unavailable PROVIDER, UNKNOWN Admitting Unavailable PROVIDER, UNKNOWN Attending Unavailable ELMER OTPETE Admitting Unavailable ELMER TOPETE Attending Unavailable Iyer Nathan OLSON Primary Care Provider Maynor OLSON, Kris Unavailable [phone] Maynor OLSON, Kris Unavailable Iyer DONathan A Primary Care Provider PHILIP MONROY Attending Unavailable IYERNATHAN Referring Unavailable IYER, NATHAN Craft Primary Care Unavailable Iyer DO Nathan A Primary Care Provider Duvall ALL AROUND PRESSER-MONEY ORDER CLERK-C, Kenisha Mata Attending Provider Kenisha Duvall Attending Unavailable Iyer, Nathan Craft Primary Care Unavailable Duvall, Kenisha E Admitting Unavailable Duvall, Kenisha E Admitting Unavailable Duvall, Kenisha E Attending Unavailable Iyer, Nathan Craft Primary Care Unavailable Iyer, Nathan A Primary Care Unavailable Eduarda De Anda Admitting Unavailable Eduarda De Anda Attending Unavailable Дмитрий Feliciano DO Attending Provider [phone] Nathan Iyer MD Primary Care Provider [phone] EDUARDA DE ANDA Attending Unavailable DOLCE, LAI Valentine Attending Unavailable LOWEEDUARDA Attending Unavailable DOLCE, LAI Valentine Attending Unavailable DOLCE, LAI Valentine Attending Unavailable DOLCE, LAI Valentine Attending Unavailable DOLCE, LAI Valentine Attending Unavailable JERMANSHANNA Attending Unavailable PHILIP MONROY Referring Unavailable IYER, NATHAN Craft Primary Care Unavailable IYERNATHAN Referring Unavailable IYER, NATHAN Crfat Primary Care Unavailable ДМИТРИЙ FELICIANO Referring Unavailab le IYER, NATHAN Craft Primary Care Unavailable IYER, NATHAN Craft Primary Care Unavailable ДМИТРИЙ FELICIANO Referring Unavailab le Iyer Nathan OLSON Primary Care Provider Allergies Allergy ClassificationReported Allergen(s)Allergy TypeDate of OnsetReaction(s) Facility (20 sources)Ethosuximide; Translations: [ETHOSUXIMIDE]Drug Sjsvtkq86-71-4707Sckp [facility] (1 source)AllopurinolDrug Oyfpmql11-00-3254Hif [facility] (1 source)EthosuximideDrug Rlwcgbg54-88-0982Puo [facility] (20 sources)linaclotide; Translations: [LINACLOTIDE]Drug Sftexyt22-02-5070 Unknown ReactionNOAR Healthcare (4 sources)EthosuximideDrug Jxwnacf42-19-8172Ukqz, ItchingUniversity Hospitals [facility] (4 sources)linaclotideDrug Mwydxiv64-41-9163Ppcono And VomitingUniversity Hospitals [facility] (1 source)EthosuximideDrug Lictkus62-43-7034DahsbubxhSt. [facility] (1 source)linaclotideDrug Kuroioq50-02-2828VllpftqlsSt. Anthony'S Hospital Repository Medications Current Medications MedicationDrug Class(es)DatesSig (Normalized)Sig (Original)acetaminophen 325 mg oral capsule (15 sources)Start: 94-05-6582ylvu 2 capsules by mouth every four to [...] mouth. Active Acetaminophen / guaiFENesin (3 sources)Start: 31-63-0558nlvu 1 tablet by mouth twice dailyAcetaminophen- Guaifenesin 325-200 mg tablet Active 1 TAB PO Twice daily December 28, 2024 12:00amComplies with drug therapyStart: 67-57-7162pmif 1 tablet by mouth twice dailyazelastine hydrochloride 0.5 mg/ml ophthalmic solution (7 sources)Histamine-1 Receptor AntagonistStart: 89-32-8474nijb 1 drop(s) into the eye(s) twice dailyazelastine (OPTIVAR) 0.05 % ophthalmic solution Administer 1 drop to both eyes 2 (two) times a day.6 mL 12 02/24/2025 ActiveStart: 38-04-1883epqe 2 spray(s) nasal route in the morningazelastine [...] 10 mg rectal suppository (7 sources)Stimulant LaxativeStart: 86-55-0567Iepyiaanv (Dulcolax (Bisacodyl)) 10 mg suppository Active 10 MG LA Daily as needed for constipationSept2024 12:00am Complies with drug therapybusPIRone hydrochloride 30 mg oral tablet (20 sources)Start: 04-04-1922vycy 1 tablet by mouth three times dailyBuspirone 30 mg tablet Active 30 MG PO Three times daily December 28, 2024 12:00am Complies with drug therapyStart: 48-61-2155uamCLYpna (BUSPAR) 10 mg tablet 1 tablet (10 mg total) in the morning and 1 tablet (10 mg total) atnoon and 1 tablet (10 mg total) before bedtime. 12/19/2017 Activetake 1 tablet by mouth once dailybusPIRone (BUSPAR) 30 MG tablet Take 30 mg by mouth daily. Active chlorhexidine gluconate 1.2 mg/ml mouthwash (12 sources)Start: 13-42-9187uuba 15 mL by mouth twice dailychlorhexidine (PERIDEX) 0.12 % oral solution Take 15 mL by mouth 2 times daily. 1 Bottle 0 09/15/2014 Iffhbu56 hr cloNIDine hydrochloride 0.1 mg extended release oral tablet (20 sources)Central alpha-2 Adrenergic AgonistStart: 59-60-4011slzf 1 tablet by mouth three times dailyClonidine Hcl 0.2 mg tablet Active 0.2 MG PO Three times daily December 28, 2024 12:00am Complieswith drug therapyStart: 03-87-8270tvdr 1 tablet by mouth twice dailyClonidine Hcl [...] hydrochloride 4 mg oral tablet (5 sources)Start: 72-38-8813wfuy 1 tablet by mouth once daily at bedtime Cyproheptadine 4 mg tablet Active 4 MG PO Daily at bedtime December 28, 2024 12:00am Complies with drug therapydiazePAM 5 mg oral tablet (8 sources)BenzodiazepineStart: 80-51-4645scgvcGEE (Valium) 5 MG tablet Indications: Gait instability , Developmental delay , Seizure disorder (HCC) Take 1 tablet (5 mg) by mouth 1 time for 1 dose 30 minutes prior to MRI 1 tablet 08/11/2024 ActiveStart: 79-38-2459aclsuBJZ (VALIUM) 5 mg tablet 08/06/2017 ActivediphenhydrAMINE hydrochloride [...] total) before bedtime. ActiveNorethindrone-Ethin Estradiol (20 sources)EstrogenStart: 73-91-9273epgd 0.16033300046984107 ug by mouth once dailyNorethindrone-Ethin Estradiol (Nortrel 1/35 (21)) 1-35 mg-mcg (21) tablet Active 1 TAB PO Daily December 28, 2024 12:00am Complies with drug therapy Start: 68-50-3697ttuy 0.05474917754518387 ug by mouth once dailyStart: 45-37-5093TBZJSBE 1/35, 28, 1-35 mg-mcg per tablet 10/07/2017 Activetake 1 tablet by mouth once daily in the morning, then take 0.25928768246433636-89 tablets by mouthoncenorethindrone-ethinyl estradiol (NORTREL 1/35, 21,) 1-35 MG- MCG per tablet Take 1 tablet by mouth every morning Activefamotidine 40 mg oral tablet (20 sources)Histamine-2 Receptor AntagonistStart: 31-47-2022ahwf 1 tablet by mouth once dailyFamotidine 40 mg tablet Active 40 MG PO Daily December 28, 2024 12:00am Complies with drug therapyfluticasone propionate 0.05 mg/actuat metered dose nasal spray (17 sources)CorticosteroidStart: 94-80-7020xdhm 2 spray(s) nasal route in the morningfluticasone propionate (FLONASE) 50 mcg/actuation nasal spray Administer 2 sprays into each nostrilin the morning. 16 g 12 02/24/2025 Activetake 2 spray(s) by inhalation once daily in the morningFluticasone Furoate 50 MCG/ACT AEPB Inhale 2 sprays into the lungs every morning Active End: 25-31-3265pssp 1 spray(s) nasal route once dailyfluticasone (FLONASE) 50 mcg/actuation nasal spray Administer 1 spray into each nostril daily. 12/24/2024 Discontinued (Alternate therapy)Fluticasone Propionate (FLONASE NASAL) [place] into each nostril. SuspendedFluticasone Propionate (FLONASE NASAL) [place] into each nostril. ActiveFluticasone Propionate (FLONASE NASAL) [place] into each nostril. 0 ActiveguaiFENesin 20 mg/ml oral solution (11 sources)Start: 47-80-1662tvuc 200 mg by mouth every four hours [...] oral tablet (20 sources)Central alpha-2 Adrenergic AgonistStart: 20-36-2276vvca 1 tablet by mouth twice dailyGuanfacine 2 [...] mg oral tablet (20 sources)Nonsteroidal Anti-inflammatory DrugStart: 02-15-4769mlaooimx lactate 120 mg/ml topical cream (20 sources)Start: 33-38-9124bwrmszwm lactate (AMLACTIN) 12 % cream 07/08/2017 Activeammonium lactate (Amlactin) 12 % cream Apply 2 application topically Daily Activelactobacillus acidophilus 16 mg oral capsule (13 sources)Lactobacillus (ACIDOPHILUS) CAPS Take by mouth. ActivelamoTRIgine 100 mg oral tablet (20 sources)Mood Stabilizer, Anti-epileptic AgentStart: 71-75-7659eruu 1 tablet by mouth once daily at bedtimeLamotrigine (Lamictal) 100 mg tablet Active 100 MG PO Daily at bedtime December 28, 2024 12:00am Complies with drug therapy Start: 41-06-1665ydjp 1 tablet by mouth once dailyLamotrigine (Lamictal) 150 mg tablet Active 150 MG PO Daily December 28, 2024 12:00am Complies with drug therapyStart: 58-25-0215zyziSPQjszh (LaMICtal XR) 300 mg tablet extended release 24hr 10/10/2017 Activelanolin 0.155 mg/mg / petrolatum 0.535 mg/mg topical ointment (2 sources)Vitamins A & D (VITAMIN A & D) ointment Apply topically 2 times daily as needed for Dry Skin Apply topically as needed skin redness Active lansoprazole 30 mg delayed release oral capsule (2 sources)Proton Pump InhibitorStart: 48-64-8414ftrngaetqxyu (PREVACID) 30 mg capsule 01/23/2018 Activelevothyroxine sodium 0.2 mg oral tablet (20 sources)l-ThyroxineStart: 74-83-4713gbky 1 tablet by mouth once daily Levothyroxine [...] Activemelatonin 3 mg oral capsule (20 sources)Start: 56-46-9082yyeq 1 capsule by mouth once daily at [...] mg/actuat metered dose nasal spray (6 sources)CorticosteroidStart: 44-58-9361coba 2 spray(s) nasal route in the morningmometasone [...] topical ointment (7 sources)RNA Synthetase Inhibitor AntibacterialStart: 67-84-2521Sugeudfgv (Centany) 2 % ointment Active 1 APPLIC TOPICAL Twice daily December 28, 2024 12:00am Complies with drug therapymupirocin (BACTROBAN) 2 % ointment Apply topically 2 times daily as needed Apply topically 3 times daily. Activemupirocin (BACTROBAN) 2 % ointment Apply 1 Application topically 3 (three) times a day. Activeondansetron 4 mg disintegrating oral tablet (8 sources)Serotonin-3 Receptor AntagonistStart: 94-14-2421Ipdmv: 03-02-2024 End: 69-67-5085mupm 4 mg intravenously once as needed for [...] hours as needed for nausea or vomiting. Shersl84 hr paliperidone 3 mg extended release oral tablet (20 sources)Atypical AntipsychoticStart: 45-21-1814npnc 1 tablet by mouth three times dailyPaliperidone [...] release oral tablet (2 sources)Proton Pump InhibitorStart: 55-73-5861vxjbpxmswqzj (PROTONIX) 40 mg EC tablet 02/27/2018 Activepetrolatum 610 mg/ml topical cream (2 sources)Hydrocerin (EUCERIN) CREA cream Apply topically every morning Upper arms Activepolyethylene glycol 3350 85784 mg powder for oral solution (20 sources)Osmotic LaxativeStart: 35-43-8897Uqxpjbbigent Glycol 3350 (Clearlax) 17 gram powder in [...] 400 mg oral tablet (20 sources)Atypical AntipsychoticStart: 55-66-9625ilib 1 tablet by mouth once daily at [...] 1 mg oral tablet (4 sources)Atypical AntipsychoticStart: 73-19-8618gkjzbazPPVZ (RisperDAL) 0.5 mg tablet 10/10/2017 ActiveStart: 88-68-2278mvtemeoWJMB (RisperDAL) 1 mg tablet 10/10/2017 ActiveSelenium (SELENIMIN ORAL) (13 sources)Selenium (SELENIMIN ORAL) Take by mouth. SuspendedSelenium (SELENIMIN ORAL) Take by mouth. ActiveSelenium (SELENIMIN ORAL) Take by mouth. 0 Activesennosides, half-way 8.6 mg oral tablet (20 sources)Start: 35-67-9698Atkigawufw (Black-Draught Lax-Senna) 8.6 mg tablet Active 17.2 [...] oral tablet (20 sources)Mood Stabilizer, Anti-epileptic AgentStart: 34-65-6980Trsvcunugs (Depakote) 125 mg tablet,delayed release (DR/EC) Active 1000 MG PO Three times daily January 27, 2025 1:21pm Complies with drug therapyStart: 71-13-5253xier 4 tablets by mouth once dailyStart: 12-28-2024 End: 52-40-5206Getwxieadp (Depakote) 125 mg tablet,delayed release (DR/EC) Discontinued 1000 MG PO Twice daily December 28, 2024 12:00am January 27, 2025 1:23pmStart: 39-20-8347vcbdepzkdl sprinkle (DEPAKOTE SPRINKLE) 125 mg capsule 10/10/2017 [...] injection 13 mL (1 source)Start: 02-26-2025 End: 93-53-1151xyym 1 dose intravenously once13 mL, IntraVENous, IMG [...] sources)Allergic disposition; Translations: [Other allergy, initial encounter]Onset: 119518-09-4967GprglawkIzdsigf disorders (20 sources)Anxiety disorder; Translations: [Anxiety disorder, unspecified] Onset: 403145-55-2341VjataacLvsxyzfw, dementia, and amnestic and other cognitive disorders (20 sources)Pseudobulbar affect; Translations: [Pseudobulbar affect]Onset: 323042-02-4104TbygytpJgifszvidlqnp disorders (20 sources)Intellectual disability; Translations: [Unspecified intellectual disabilities]Onset: 463221-00-7604RieumfzQpuaoiocp usually diagnosed in infancy, childhood, or adolescence (20 sources)Autism spectrum disorder; Translations: [Autistic disorder]Onset: 632783-11-1468GtkfapwL Codes: Fall (1 source)Fall on same level from slipping, tripping and stumbling with subsequent striking against unspecified object, initial encounter; Translations: [FALL SAME LVL SLIP STRK UNS OBJ INT]Onset: 91-94-6531WclkvcyoQkckwdwl; convulsions (20 sources)Epilepsy, unspecified, not intractable, without status epilepticus; Translations: [Seizure disorder]Onset: 89-54-7084HmbkgruMxkiqkwh; convulsions (2 sources)Seizure zyfnblyq76-66-3963XsrgyxxoZtgkuziwnmrzj symptoms and ill- defined conditions (1 source)Unspecified urinary incontinence; Translations: [UNSPECIFIED URINARY INCONTINENCE]Onset: 66-74-0773BeekxkzNrmgdmzdnuaep symptoms and ill-defined conditions (4 sources)Anuria and oliguria; Translations: [ANURIA AND OLIGURIA]Onset: 99-34-5543JptzysvpFyeswfa and fatigue (2 sources)Asthenia; Translations: [Weakness]88-82-9590WvoiajhdYbrdkpwhsv disorders (1 source)Hormone replacement therapy; Translations: [HORMONE REPLACEMENT THERAPY]Onset: 21-21-8200EbvbqtzxTohihuk (6 sources)Onychomycosis; Translations: [Tinea unguium]86-44-4685NkdboxvnFuir wounds of head; neck; and trunk (4 sources)Laceration without foreign body of other part of head, initial encounter; Translations: [LAC W/O FBOTH PART HEAD INIT ENC]Onset: 07-21-2022 EpisodicOther aftercare (5 sources)Other oil heaterman (current) drug therapy; Translations: [OTH SKILLED NURSING CURRENT DRUG THERAPY]Onset: 58-31-0648JisdixwnAlnrw connective tissue disease (6 sources)Pain of toe of right foot; Translations: [Pain in right toe(s)] 71-98-4307EyktqgtlFpmtn connective tissue disease (6 sources)Pain of toe of left foot; Translations: [Pain in left toe(s)] 81-29-0081HsdgnwfjSedcy diseases of veins and lymphatics (2 sources)Peripheral venous insufficiency; Translations: [Venous insufficiency (chronic) (peripheral)]23-15-6420LmutabcdAflms nervous system disorders (20 sources)Abnormal gait; Translations: [Unsteadiness on feet]Onset: 08-06-2023 95-72-0563XsksibabHvxng nervous system disorders (2 sources)Unsteadiness on feet; Translations: [Unsteadiness on feet]Onset: 79-27-7614LaujvhdsNefsq skin disorders (2 sources)Ingrowing nail; Translations: [Ingrowing nail]67-59-0952FgtyfhouMldmo upper respiratory disease (1 source)Chronic rhinitis; Translations: [Chronic rhinitis]35-35-7719Wybhcnh Other upper respiratory disease (1 source)Chronic rhinitis; Translations: [Chronic rhinitis]Onset: 02-24-2025 ChronicOther upper respiratory disease (5 sources)Nasal congestion; Translations: [Nasal congestion]Onset: 12-24-2024 06-60-9027RulrdenuEbdiv upper respiratory disease (1 source)Nasal congestion; Translations: [Nasal congestion]Onset: 12-24-2024 EpisodicOther upper respiratory infections (6 sources)Recurrent sinusitis; Translations: [Chronic sinusitis, unspecified] Onset: 690849-99-1704OfntxszHxzcdgqjldr injury; contusion (1 source)Contusion of other part of head, initial encounter; Translations: [CONTUS OTH PRT HEAD INITIAL ENCNTR]Onset: 97-99-1124NtveynznSofjrrq disorders (17 sources)Hypothyroidism, unspecified; Translations: [Autoimmune thyroiditis] Onset: 96-68-3869CzwuklhZgxlygizodgd (1 source)NO COGH77-39-6297Cakkburjwelh (1 source)Sinus ProblemOnset: 06-13-6637Cmxnhnrgkqxo (2 sources)Please arrange for MRI with General Anesthesia, need to have an MRI suite that can accommodate general anesthesiaUnclassified (1 source)New PatientOnset: 02-24-2025 Past or Other Problems Problem ClassificationProblemDateDocumented DateEpisodic/ChronicBiliary tract disease (6 sources)Finding of measures of gallbladder; Translations: [Other specified diseases of gallbladder]Onset: 09-03-2017 Resolved: 600503-34-1233KzuyjuybXrnrlqgsri associated with dizziness or vertigo (20 sources)Dizziness; Translations: [Dizziness and giddiness]Onset: 07-03-2018 07-09-2131OggmbmqgPmtjzwbez of teeth and jaw (13 sources)Dental caries; Translations: [Dental caries, unspecified]Onset: 12-27-2023 Resolved: 522175-31-3789ZzsfcevrDsyv disorders (2 sources)Mood disordersOnset: Nausea and vomiting (2 sources)Vomiting; Translations: [Vomiting, unspecified]Onset: 09-03-2017 72-76-4994DnnzvpmdWassm gastrointestinal disorders (2 sources)Dysphagia; Translations: [Dysphagia, unspecified]Onset: 09-03-2017 33-26-0906ZvuojnlhFxzov nutritional; endocrine; and metabolic disorders (6 sources)Developmental delay; Translations: [Unspecified lack of expected normal physiological development in childhood]Onset: EpisodicOther nutritional; endocrine; and metabolic disorders (2 sources)Weight decreased; Translations: [Abnormal weight loss]Onset: 09-03-2017 Resolved: 110919-82-3459MzntktziYdczuivu codes; unclassified (20 sources)Personal history of other specified conditions; Translations: [Personal history of other specified diseases]Onset: Episodic Results Test NameValueInterpretationReference RangeFacilityMRI BRAIN W WO CONTRASTon 78-42-7456WMA BRAIN W WO CONTRASTEXAMINATION: MRI OF THE [...] 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 Lhgf-wz-zeiohosq degenerative disc disease is noted at C5-C6. 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 Iqrj-wv-lfymvzpu degenerative disc disease is noted at C5-C6. [...] by: Mario Blankenship MD 02/28/25 Final resultNormalMercy Mercy Medical CenterNo Panel Informationon 18-50-1508Ooshtwqa volume loss, advanced for patient's stated age. 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 Ylqs-ri-ofxobbbg degenerative disc disease is noted at C5-C6. No acute fracture or traumatic subluxation is identified. The cervical cord is normal in size and signal intensity. At C5-C6 there is a disc osteophyte complex, ligamentum flavum thickening, and facet hypertrophy resulting in severe narrowing of the thecal sac and both neural foramen. 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 Gpql-wh-piwbfjaq degenerative disc disease is noted at C5-C6. [...] foraminal stenosis at the C5-C6 disc level. [email or web address] Panel InformationOrdered By: Mario Blankenship on 02-28-2025 [facility] [employer] Work Phone: HCG Screen, Bloodon 52-72-4636PFX Screen, Blood PositiveAbnormalNEGMercy Mercy Medical CenterComment on above:Result Comment: If HCG results do not concur with clinical observations, additional testing to confirm result is recommended. This test is not labeled for use as a tumor marker. [facility] has confirmed the use of plasma for this test. This has not been cleared or approved by the U.S. Food and Drug Administration. The FDA has determined that such clearance is not necessary.Performed By: #### HCG #### [facility] [address] [place] [address] Animal Impersonator: Jake Cabral MDHCG, SERUM, QUALITATIVEon 62-36-3732MKO ( test) QlPositiveAbnormalNEGATIVEMary Washington HealthcareComment on above: If HCG results do not concur with clinical observations, additional testing to confirm result is recommended. This test is not labeled for use as a tumor marker. [facility] has confirmed the use of plasma for this test. This has not been cleared or approved by the U.S. Food and Drug Administration. The FDA has determined that such clearance is not necessary. Interpretation and review of laboratory resultsAbnormalLewisGale Hospital Pulaski Brain WO and W contrast Rajni 06-96-0362Mxprryqxu Study observation (narrative)[facility] Cervical spine WO contraston 33-62-9935Irhizfezj Study observation (narrative)[facility] HealthcareRESPIRATORY ALLERGY PANELon 99-79-5068UWOZWNHIPP ALTERNATA<^0.10Normal <0.10ProUniversity Hospitals Tripoint Medical CenterComment on above:Order Comment: Class 0: [...] high level sensitization.Performed By: #### RAP #### [facility] ([place]) [address] [place] [address] VIRASPERGILLUS FUMIGATUS<^0.10Normal<0.10ProNationwide Children's Hospital on above:Order Comment: Class 0: Normal [...] high level sensitization.Performed By: #### RAP #### [facility] ([facility]) [address] [place] [address] VIRBERMUDA GRASS<^0.10Normal<0.10ProKettering Health [facility] Comment on above:Order Comment: Class 0: [...] high level sensitization.Performed By: #### RAP #### [facility] ([facility]) [address] [place] [address] VIRBOX ELDER<^0.10Normal<0.10ProUniversity Hospitals Tripoint Medical CenterComment on above:Order Comment: Class 0: [...] high level sensitization.Performed By: #### RAP #### [facility] ([facility]) [address] [place] [address] VIRCAT DANDER<^0.10Normal<0.10ProUniversity Hospitals Tripoint Medical CenterComment on above:Order Comment: Class 0: [...] high level sensitization.Performed By: #### RAP #### [facility] ([facility]) [address] [place] [address] VIRCLADOSPORIUM HERB<^0.10Normal<0.10ProUniversity Hospitals Tripoint Medical Center Comment on above:Order Comment: Class [...] high level sensitization.Performed By: #### RAP #### [facility] ([facility]) [address] [place] [address] VIRCOCKLEBUR<^0.10Normal<0.10ProUniversity Hospitals Tripoint Medical CenterComment on above:Order Comment: Class 0: [...] high level sensitization.Performed By: #### RAP #### [facility] ([facility]) [address] [place] [address] VIRCOCKROACH<^0.10Normal<0.10ProKettering Health Greene Memorial HospitalComment on above:Order Comment: Class 0: Normal [...] high level sensitization.Performed By: #### RAP #### [facility] ([facility]) [address] [place] [address] VIRCOMMON PIGWEED<^0.10Normal<0.10ProUniversity Hospitals Tri[facility] Medical Center Comment on above:Order Comment: Class [...] high level sensitization.Performed By: #### RAP #### [facility] ([facility]) [address] [place] [address] VIRCOMMON RAGWEED<^0.10Normal<0.10ProUniversity Hospitals [facility] Center Comment on above:Order Comment: Class [...] high level sensitization.Performed By: #### RAP #### [facility] ([facility]) [address] [place] [address] VIRCOMMON SILVER BIRCH<^0.10Normal<0.10ProUniversity Hospitals Tripoint Medical CenterComment on above:Order Comment: Class 0: [...] high level sensitization.Performed By: #### RAP #### [facility] ([facility]) [address] [place] [address] VIRCOTTONWOOD<^0.10Normal<0.10ProUniversity Hospitals Tripoint Medical CenterComment on above:Order Comment: Class 0: [...] high level sensitization.Performed By: #### RAP #### [facility] [facility] ([facility]) [address] [place] [address] VIRDERMATOPH FARINAE<^0.10Normal<0.10ProUniversity Hospitals [facility] Comment on above:Order Comment: Class [...] high level sensitization.Performed By: #### RAP #### [facility] ([facility]) [address] [place] [address] VIRDERMATOPH PTERONYSS<^0.10Normal<0.10ProMedica Collins HospitalComment on above:Order Comment: Class 0: Normal [...] high level sensitization.Performed By: #### RAP #### [facility] ([facility]) [address] [place] [address] VIRDOG DANDER<^0.10Normal<0.10ProMedica Collins HospitalComment on above:Order Comment: Class 0: Normal [...] high level sensitization.Performed By: #### RAP #### [facility] ([facility]) [address] [place] [address] VIRELM<^0.10Normal<0.10ProMedica Collins HospitalComment on above:Order Comment: Class 0: Normal [...] high level sensitization.Performed By: #### RAP #### [facility] ([facility]) [address] [place] [address] VIRGOOSEFOOT CANNON QTR<^0.10Normal<0.10[facility] Comment on above:Order Comment: Class 0: [...] high level sensitization.Performed By: #### RAP #### [facility] ([facility]) [address] [place] [address] VIRIGE2 IU/mLNormal<=165ProUniversity Hospitals Tripoint Medical CenterComment on above:Order Comment: Class 0: [...] high level sensitization.Performed By: #### RAP #### [facility] ([facility]) [address] [place] [address] VIRJOHNSON GRASS<^0.10Normal<0.10[facility] Comment on above:Order Comment: Class 0: [...] high level sensitization.Performed By: #### RAP #### [facility] ([facility]) [address] [place] [address] VIRMAPLE LEAF SYCAMORE<^0.10Normal<0.10ProUniversity Hospitals Tripoint Medical CenterComment on above:Order Comment: Class 0: [...] high level sensitization.Performed By: #### RAP #### [facility] ([facility]) [address] [place] [address] VIRMEADOW GRASS [place] BLU0.17 kU/LAbnormal<0.10ProUniversity Hospitals Tripoint Medical CenterComment on above:Order Comment: Class 0: [...] high level sensitization.Performed By: #### RAP #### [facility] ([facility]) [address] [place] [address] VIRMOUNTAIN JUNIPER<^0.10Normal<0.10Pro[facility] Comment on above:Order Comment: Class 0: [...] high level sensitization.Performed By: #### RAP #### [facility] ([facility]) [address] [place] [address] VIRMOUSE URINE PROTEINS<^0.10Normal<0.10ProUniversity Hospitals Tripoint Medical CenterComment on above:Order Comment: Class 0: [...] high level sensitization.Performed By: #### RAP #### [facility] ([facility]) [address] [place] [address] VIRMUGWORT<^0.10Normal<0.10ProUniversity Hospitals Tripoint Medical CenterComment on above:Order Comment: Class 0: [...] high level sensitization.Performed By: #### RAP #### [facility] ([facility]) [address] [place] [address] VIRMULBERRY TREE<^0.10Normal<0.10ProK[facility] Comment on above:Order Comment: Class 0: [...] high level sensitization.Performed By: #### RAP #### [facility] ([facility]) [address] [place] [address] VIRNETTLE<^0.10Normal<0.10ProMedica Collins HospitalComment on above:Order Comment: Class 0: Normal [...] high level sensitization.Performed By: #### RAP #### [facility] ([facility]) [address] [place] [address] VIROAK<^0.10Normal<0.10ProKettering Health Greene Memorial HospitalComment on above:Order Comment: Class 0: Normal [...] high level sensitization.Performed By: #### RAP #### [facility] ([facility]) [address] [place] [address] VIRPECAN HICKORY TREE<^0.10Normal<0.10Pro[facility] Comment on above:Order Comment: Class [...] high level sensitization.Performed By: #### RAP #### [facility] ([facility]) [address] [place] [address] VIRPENICILLIUM CHRYSOGN<^0.10Normal<0.10[facility] HospitalComment on above:Order Comment: Class 0: Normal [...] high level sensitization.Performed By: #### RAP #### [facility] ([facility]) [address] [place] [address] MAICOL HALL<^0.10Normal<0.10[facility] Comment on above:Order Comment: Class 0: [...] high level sensitization.Performed By: #### RAP #### [facility] ([facility]) [address] [place] [address] VIRSALTWORT JENN THISTLE<^0.10Normal<0.10ProUniversity Hospitals Tripoint Medical CenterComment on above:Order Comment: Class 0: [...] high level sensitization.Performed By: #### RAP #### [facility] ([facility]) [address] [place] [address] VIRSHEEP SORREL<^0.10Normal<0.10Pro[facility] Comment on above:Order Comment: Class 0: [...] high level sensitization.Performed By: #### RAP #### [facility] ([facility]) [address] [place] [address] VIRTIMOTHY<^0.10Normal<0.10ProUniversity Hospitals Tripoint Medical CenterComment on above:Order Comment: Class 0: [...] high level sensitization.Performed By: #### RAP #### [facility] ([facility]) [address] [place] [address] VIRWALNUT TREE POLLEN<^0.10Normal<0.10Pro[facility] Comment on above:Order Comment: Class [...] high level sensitization.Performed By: #### RAP #### [facility] ([facility]) [address] [place] [address] VIRWHITE GISELA<^0.10Normal<0.10ProUniversity Hospitals Tripoint Medical CenterComment on above:Order Comment: Class 0: [...] high level sensitization.Performed By: #### RAP #### [facility] ([facility]) [address] [place] [address] VIRAnesthesia Postprocedure Evaluationon 03-02-2024 Primer Press Operator Authentication Interface Message TextAnesthesia Postoperative Assessment: Vital [...] ANESTHESIA NOTABLE EVENTS: No notable events documented.NormalThe [facility] SystemAnesthesia Preprocedure Evaluationon [id number] Authentication Interface Message TextASA: 3 No history of anesthetic complications NPO status: Greater than 8 hours Past Medical History and Review of Systems Pulmonary (+) sleep apnea (-) non-smoker Dental ROS (+) teeth problems missing Endo (+) hypothyroidism (Gaot's disease) 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 Scheduled for surgery 03/02/2024. ) Questions answered / anesthesia plan accepted ( Anesthesia consent obtained and scanned into [employer]. Scheduled for surgery 03/02/2024. ) Past medical history, surgical history, allergies, and medications reviewed. Pertinent laboratory tests, EKG, imaging, and consults reviewed and I have personally seen and evaluated the patient, repeating cabrera portions of the history and physical examination. Attestation: Anesthesia options were discussed with the patient and/or legal guest relations representative. The risks, benefits and alternatives were reviewed. Questions regarding anesthesia were answered. Patient and/or legal guest relations representative knows such anesthetics and procedures may be performed by Resident physicians, Certified Anesthesiologist Assistants, or Certified Nurse Anesthetists under the supervision of a physician. The patient /or the patient's legal guest relations representative agree with the plan for anesthesia. Comment: Anesthesia consent obtained and scanned into EPIC. Scheduled for surgery 03/02/2024. [facility] HospitalAnesthesia Transfer Of [facility] Healthcareon 03-02-2024 Primer Press Operator Authentication Interface Message TextPatient taken to PACU. [...] surgical history indicates: EXTRACTION, TOOTH (09/15/2014) Procedure: [place] teeth; Surgeon: Bradley Goodwin DDS; Location: PERIOPERATIVE SERVICES; Service: Oral EUA, ORAL (09/15/2014) Procedure: EUA, ORAL; Surgeon: Bradley Goodwin DDS; Location: PERIOPERATIVE SERVICES; Service: Oral Allergies: Linzess [linaclotide] and Zarontin [ethosuximide] Basic Operating Room Facts: Surgeon(s): Elmer Topete DDS Anesthesiologist: Milton Luna MD BURRING WHEEL OPERATOR: Adalgisa Smith APRN-DARSHAN Cook Dessert: Dayanna Preciado MD DENTAL RESTORATIONS (Right: Mouth) [...] report was received. Adalgisa Smith, [facility] SystemBlood Attestationon [id number] Authentication Interface Message TextBlood Attestation: ATTESTATION OF INFORMED CONSENT FOR BLOOD: The transfusion of blood and/or blood components were discussed with the patient and/or legal guest relations representative. The risks, benefits and alternatives were reviewed. Questions regarding blood transfusions were answered. The patient /or the patient's legal guest relations representative agree with the plan for transfusion of blood and/or blood components.NormalThe [employer] SystemBrief Operative Noteon [id number] Authentication Interface Message TextBrief Operative Note P[facility] OR 3 Ponce Esteves 29 year old female Surgical Contact Serial Number: [id number] Preoperative Diagnosis: Pre-op Diagnosis * Caries [K02.9] Postoperative Diagnosis: * Caries [K02.9] Procedures: Full mouth x-ray [61510] Prophylaxis [72958] Restorations [89905] [place]ide application [35206] Surgeon(s): Surgeon(s): Elmer Topete DDS Staff: Customer Business Manager Nurse: Trudi Padilla Water Treatment Plant Supervisor: Paula Contreras DDS; Melquiades Christie DDS Anesthesia: General Anesthesiologist: Milton Luna MD BURRING WHEEL OPERATOR: Adalgisa Smith APRN-DARSHAN Cook Dessert: Dayanna Preciado MD Specimen(s): * No specimens [...] by Paula Contreras DDS 03/02/2024 11:48 AMNormalThe [employer] System Progress Noteson [id number] Authentication Interface Message Text ----- Saturday, March 02, 2024 at 11:38:59 AM ----- ----- Provider: [id number] - Elmer Rebolledo DDS -- Clinic: [facility] ----- [place] notes, [place] is ready for tx [place]. X-Rays look good, few cavities found and confirmed clinically. restos completed. OP Note by Paula Contreras DDS at 03/01/2024 6:14 PM Author: Paula Contreras DDS Service: Dentistry Author Type: Resident Filed: 03/02/2024 11:56 AM Date of Service: 03/01/2024 6:14 PM Note Type: OP Note Status: Cosign Needed Special Education Teaching Assistant: Paula Contreras DDS (Resident) Cosign Required: Yes Expand All Collapse All Surgical Case Number Data Unavailable Operating Room Data Unavailable Preoperative Diagnosis(es): Caries [k02.9] Surgeon: Dr. Topete Material Lister Surgeon: Melquiades Arias DDS - Paula Contreras [...] the treatment plan included the following: Composite confucianist on tooth #7 surface ML. Amalgam restorations [...] 2024 at 11:57:17 AM ----- ----- Provider: [id number] - Elmer Rebolledo DDS -- Clinic: [facility] -----NormalThe [facility] URINE HCG-IN OFFICEon [id number] ( test) Ql (U)NegativeNegative [facility]HealthNegative Internal ControlNegativeNegativeMetroHealthPositive Internal ControlPositivePositiveMetroHealthMetroHealthURINE HCG-IN OFFICEOrdered By: Aure Salgado on [id number] ( test) Ql (U)NegativeNegative MetroHealthInterpretation and review of laboratory resultsNormalMetroHealth Negative Internal ControlNegativeNegativeMetroHealthPositive Internal Control PositivePositiveMetroHealthMetroHealthOP Noteon [id number] Authentication Interface Message TextSurgical Case Number Data Unavailable Operating Room Data Unavailable Preoperative Diagnosis(es): Caries [k02.9] Surgeon: Dr. Topete Material Lister Surgeon: Melquiades Arias DDS - Paula Contreras [...] the treatment plan included the following: Composite confucianist on tooth #7 surface ML. Amalgam restorations [...] procedure. Paula Contreras DDS 03/01/2024 6:15 PMNormalThe [facility] SystemTelephone Encounteron [id number] Authentication Interface Message Text Anesthesia consent obtained and scanned into [employer]. Scheduled for surgery 03/02/2024.NormalMetroHealth [facility] SystemTelephone Encounteron 02-21-2024 Primer Press Operator Authentication Interface Message TextAnesthesia consent obtained and scanned into [employer]. Scheduled for surgery 03/02/2024.[facility] SystemPAT Call Historyon 02-19-2024 Primer Press Operator Authentication Interface Message TextTelephone History Ponce Esteves, [id number] 02/19/2024 Patient was identified by name and date of via Jerman, caregiver. Needs: Physical, Neck Circumference, BHCG, and ED on DOS. 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 If the patient becomes ill prior to procedure or surgery, they are to call their provider or surgeon's office directly. 29 year old 136.6 lbs 5' 4 Date of Surgery: 03/02 Surgeon: Yoselyn Type of Surgery: DENTAL RESTORATIONS HISTORY OF PRESENT ILLNESS: telephone history for the upcoming surgery at [facility], [address] [place], enter through the [place] entrance doors. 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 Fluticasone Propionate (FLONASE NASAL) [place] into each nostril. Selenium (SELENIMIN ORAL) Take by mouth. Sennosides (SENNA) 15 MG tablet Take 1 Tab by mouth daily as needed for Constipation. topiramate (TOPIRAGEN) 25 MG tablet Take 75 mg by mouth 2 times daily (more content not included)...NormalThe [facility] SystemProgress Noteson 02-17-2024 Primer Press Operator Authentication Interface Message TextPatient PAT has be rescheduled for 02/19/2024--for OR visit 03/02/2024----- Saturday, February 17, 2024 at 10:10:00 AM ----- ----- Provider: LESLIE - Candace [facility]-Engraving Plate Maker -- Clinic: [place] -----NormalThe [facility] SystemProgress Noteson [id number] Authentication Interface Message TextPatient was no show for PAT today at [place] there surgery is scheduled 03/02-Contact Concetta figueroa --advised if PAT needs to reschedule or patient will be removed from OR----- Monday, February 05, 2024 at 4:24:04 PM ----- ----- Provider: LESLIE [facility]-[employer]raving Plate Maker -- Clinic: [place] -----NormalThe [facility] SystemProgress Noteson [id number] Authentication Interface Message TextParent/guardian/patient was contacted for PAT AND OR Sedation scheduled -- confirmed information with patient, also informed mom importance of going to PAT appointment -- if missed, IV Sedation will be cancelled, and you will be placed back on wait list 03/02/24----- Monday, January 08, 2024 at 2:14:12 PM ----- ----- Provider: LESLIE [facility]-Engraving Plate Maker -- Clinic: [place] -----NormalThe [facility] HospitalroW[facility] SystemProgress Notes [id number] Authentication Interface Message TextAttempted to contact patient/ parent / guardian at telephone number listed -- no answer, left voicemail message requesting a return call.----- Saturday, December 30, 2023 at 2:26:35 PM ----- ----- Provider: LESLIE [facility]-Engraving Plate Maker -- Clinic: [place] -----[facility] SystemFree T4on 28-57-4591Soyz T4 [Mass/Vol]1.12 ng/dLNormal0.58-1.64Ol[facility] Mercy Medical CenterComment on above:Performed By: #### [id number], [id number] #### [facility] [address], [place] [address]Ufldkdots Orderon [id number] Order [id number]#1.00CD:127NormalFisher Meritus Medical CenterHon 12-26-1138TNB Qn4.74 m[IU]/LNormal0.34-5.60[facility] HospitalComment on above:Performed By: #### [id number], [id number] #### [facility] [address] [place], [place] [address]YEVJ T4on 91-72-0255Ascw T4 [Mass/Vol]1.76 ng/dLCritically high 0.76-1.46The [facility] HospitalComment on above:Performed By: #### FT4 #### [facility] [address] [place] [address] Dr. Volodymyr PaezSage Memorial Hospital 96-97-9552VOC Qnm[IU]/LCritically low0.358-3.740N[facility]wide Children'S HospitalComment on above:Performed By: #### TSH #### [facility] [address] [place] [address] Dr. Volodymyr Matthews URINEon [id number] URINEIsolate 1 Streptococcus agalactiae >100,000 cfu/mL of ORGANISM 1 Streptococcus agalactiae ANTIBIOTIC M.I.C RX STATUS Benzylpenicillin <=0.06 S F Ampicillin <=0.25 S F Cefotaxime <=0.12 S F Ceftriaxone <=0.12 S F Levofloxacin 1 S F Inducible Clindamycin Resistance Neg NEG F Erythromycin >=8 R F Clindamycin >=1 R F Linezolid <=2 S F Vancomycin 0.5 S F Tetracycline >=16 R FNormalNationwide Children'S HospitalComment on above:Performed By: #### TSH, CMP #### [facility] [address] [place] [address] Dr. Volodymyr Zapata (CLEAN/CATCH) SYSTEMS INTEGRATION ADVISOR/MICRO IF IND.on [id number] Ql (U) NegativeNormalNEGATIVENationwide Children'S HospitalComment on above:Performed By: #### UACSIND, UMICRO #### [facility] [address] [place] [address] Dr. Volodymyr PaezClarity (U)CLEARNormalCLEARThe [facility] Springs HospitalComment on above: Performed By: #### UACSIND, UMICRO #### [facility] [address] [address] [address] Volodymyr Jones (U)LT. YELLOWNormalYELLOWNationwide Children'S HospitalComment on above:Performed By: #### UACSSHAHEEN, UMICRO #### [facility] [address] [address] [address] Volodymyr PaezGlucose Ql (U)NegativeNormalNEGATIVEBrown Memorial Hospital HospitalComment on above:Performed By: #### UACSSHAHEEN, UMICRO #### [facility] [address] [address] [address] Volodymyr PaezHemoglobin Ql (U)NegativeNormalNEGATIVEDetwiler Memorial Hospital on above:Performed By: #### UACSSHAHEEN, UMICRO #### [facility] [address] [address] [address] Volodymyr PaezKetones Ql (U)NegativeNormalNEGATIVENationwide Children'S HospitalComment on above:Performed By: #### UACSSHAHEEN UMICRO #### [facility] [address] [address] [address] Volodymyr PaezLEUKOCYTESSMALLAbnormalNEGATIVENationwide Children'S HospitalComment on above:Performed By: #### UACSSHAHEEN, UMICRO #### [facility] [address] [address] [address] Volodymyr PaezNitrite Ql (U)NegativeNormalNEGATIVENationwide Children'S HospitalComment on above:Performed By: #### UACSSHAHEEN, UMICRO #### [facility] [address] [address] [address] Volodymyr PaezpH (U)7.0 [pH]Normal5-9The [facility] HospitalComment on above: Performed By: #### UACSIND, UMICRO #### [facility] [address] [address] [address] Volodymyr PaezSPEC GRAVITY1.363Toqxvk0.005-<=1.025The [facility] HospitalComment on above:Performed By: #### TASHA UMICRO #### [facility] [address] [address] [address] Volodymyr Zapata PROTEINNegativeNormalNEGATIVE/ TRACEThe [facility] Comment on above:Performed By: #### TASHA UMICRO #### [facility] [address] [address] [address] Volodymyr Mendez MICRO INDINDICATEDNoFulton County Health CenterComment on above: Performed By: #### TASHA UMICRO #### [facility] [address] [address] [address] Volodymyr Barber Qn (U)0.2 {Leta'U}/dLNormal0.2 - 1.0The [facility] HospitalComment on above:Performed By: #### TASHA UMICRO #### [facility] [address] [address] [address] Volodymyr Garcia MICROSCOPIC ONLYon [id number]G SEEN The [facility] HospitalComhelen [facility] on above:Performed By: #### TASHA UMICRO #### [facility] [address] [address] [address] Volodymyr Ladd identified Cx Nom (U)INDICATEDOhioHealth Southeastern Medical CenterComment on above:Performed By: #### TASHA UMICRO #### [facility] [address] [address] [address] Volodymyr Ernst SEENNormalNONE SEENNationwide Children'S HospitalComment on above:Performed By: #### TASHA UMICRO #### [facility] [address] [address] [address] Volodymyr Mcdonough LM Nom (Urine sed)NONE SEENNormalNONE SEENNationwide Children'S HospitalComhelen [facility] on above:Performed By: #### TASHA UMICRO #### [facility] [address] [address] [address] Helm ChangEpithelial cells LM Ql (Urine sed)MODERATEAbnormalNONE SEEN /RARE The [facility] HospitalComment on above:Performed By: #### MYAHCSSHAHEEN UMICRO #### [facility] [address] [place] [address] Dr. Volodymyr PaezMUCOUSTRACEAbnormalNONE SEENThe [facility] on above:Performed By: #### UACSIND UMICRO #### [facility] [address] [place] [address] Dr. Volodymyr PaezAphtwHQH3-2Watuirme5-8Lhp [facility]lyria Medical Centerment on above:Performed By: #### MYAHCSSHAHEEN UMICRO #### [facility] [address] [place] [address] Dr. Volodymyr PaezFholrDCD87-80QmgedsvdHVMP SEENNationwide Children'S HospitalComment on above: Performed By: #### TASHA UMICRO #### [facility] [address] [place] [address] Dr. Volodymyr PaezLAMOTRIGINEon [id number], Serum11.2 ug/mLNormal 2.0-20.0The [facility] HospitalComment on above:Result Comment: Detection Limit = 1.0Performed By: #### TSH, CMP #### [facility] [address] [place] [address] Dr. Volodymyr Kevin AUTO DIFFon 35-61-3351WGNN #0.0 103/ulNormal0.0-0.1The [facility] HospitalComment on above:Performed By: #### CBC #### [facility] [address] [place] [address] Dr. Volodymyr PaezBasophils/100 WBC (Bld)0.4 %Normal0.2-2.0The [facility] Comment on above:Performed By: #### CBC #### [facility] [address] [place] [address] Dr. Volodymyr Alcala #0.4 103/ulNormal0.0-0.7The [facility] HospitalComment on above: Performed By: #### CBC #### [facility] [address] [address] [address] Volodymyr Haydenosinophils/100 WBC (Bld)4.3 %Normal0.9-7.0The [facility] Comment on above:Performed By: #### CBC #### [facility] [address] [place] [address] Dr. Volodymyr Haydenrythrocyte distribution width (RBC) [Ratio]13.2 %Gyhjni00.0-15.0 The [facility] HospitalComment on above:Performed By: #### CBC #### [facility] [address] [place] [address] Dr. Volodymyr PaezHematocrit (Bld) [Volume fraction]40.2 %Uzyknt40.0-48.0The [facility] HospitalComment on above:Performed By: #### CBC #### [facility] [address] [place] [address] Dr. Volodymyr PaezHemoglobin (Bld) [Mass/Vol]13.8 g/zGAapeds95.0-16.0The [facility] HospitalComment on above:Performed By: #### CBC #### [facility] [address] [place] [address] Dr. Volodymyr Harrison #0.02 10e3/ulNormal0.00-0.03The [facility] HospitalComment on above:Performed By: #### CBC #### [facility] [address] [place] [address] Dr. Volodymyr Harrison %0.2 %Normal0.0-0.5The [facility] HospitalComment on above: Performed By: #### CBC #### [facility] [address] [place] [address] Dr. Volodymyr Mccormick #4.3 103/ulCritically high1.2-3.8The [facility] Comment on above:Performed By: #### CBC #### [facility] [address] [place] [address] Dr. Volodymyr Levimphocytes/100 WBC (Bld)51.8 %Ouggot34.5-60.0The [facility] HospitalComment on above:Performed By: #### CBC #### [facility] [address] [address] [address] Volodymyr Hatch DIFF REQNONormalThe [facility] HospitalComment on above: Performed By: #### CBC #### [facility] [address] [address] [address] Volodymyr Khan (RBC) [Entitic mass]31.0 hwIojcah37.7-34.0The [facility] HospitalComment on above:Performed By: #### CBC #### [facility] [address] [address] [address] Volodymyr Khan (RBC) [Mass/Vol]34.3 g/hVSzdwea85.9-35.2The [facility] HospitalComment on above:Performed By: #### CBC #### [facility] [address] [place] [address] Dr. Volodymyr Khan (RBC) [Entitic vol]90.3 iXMbebnw65.0-99.0[facility] Northment on above:Performed By: #### CBC #### [facility] [address] [place] [address] Dr. Volodymyr Villegas #0.9 103/ulCritically high0.3-0.8ThMer[facility] Health [facility] Comment on above:Performed By: #### CBC #### [facility] [address] [address] [address] Volodymyr Geeocytes/100 WBC (Bld)10.4 %Normal1.7-12.0[facility] Comment on above:Performed By: #### CBC #### [facility] [address] [address] [address] Volodymyr Kelly #2.7 103/ulNormal1.4-6.5The [facility] HospitalComment on above:Performed By: #### CBC #### [facility] [address] [place] [address] Dr. Volodymyr Coulterutrophils/100 WBC (Bld)32.9 %Critically low43.0-75.0The [facility] HospitalComment on above:Performed By: #### CBC #### [facility] [address] [place] [address] Dr. Volodymyr Hunt mean volume (Bld) [Entitic vol]10.3 fLNormal9.5-13.5The [facility] HospitalComment on above:Performed By: #### CBC #### [facility] [address] [place] [address] Dr. Volodymyr MorinT231 103/qvFariiv376-121Rsd [facility] HospitalComment on above: Performed By: #### CBC #### [facility] [address] [place] [address] Dr. Volodymyr PaezRBC4.45 106/ulNormal4.20-5.40The [facility] HospitalComment on above:Performed By: #### CBC #### [facility] [address] [place] [address] Dr. Volodymyr PaezWBC8.2 103/ulNormal4.0-11.0The [facility] HospitalComment on above: Performed By: #### CBC #### [facility] [address] [place] [address] Dr. Volodymyr Munoz/ VALPROIC ACIDon 21-91-7845VIOQNDHF31.3 ug/mlNormal 50.0-100.0The [facility] HospitalComment on above:Performed By: #### VALP #### [facility] [address] [place] [address] Dr. Volodymyr Moore THYROIDon [id number] THYROIDEXAMINATION: US THYROID HISTORY: Autoimmune thyroiditis COMPARISON: [...] 6 mm. No follow-up required TI-RADS: The [employer] TI-RADS committee's white paper recommendations for thyroid lesions classified as TR4 (moderately suspicious) are listed below: > 1.0 cm. Follow-up ultrasound in 1, 2, 3, and 5 years. > 1.5 cm. FNA. J. Am Chidi Radiol 2017;14:587-595. Electronically authenticated by: MATILDE WATERMAN Date: 2022-07-10 13:01NoFulton County Health CenterLAMOTRIGINEon [id number], Serum14.2 ug/mLNormal 2.0-20.0[facility] HospitalComment on above:Result Comment: Detection Limit = 1.0Performed By: #### TSH, CMP #### [facility] [address] [place] [address] Dr. Volodymyr Kevin AUTO DIFFon [id number] #0.1 103/ulNormal0.0-0.1[facility] HospitalComment on above:Performed By: #### TSH, CMP #### [facility] [address] [place] [address] Dr. Volodymyr Jamesonsophils/100 WBC (Bld)0.7 %Normal0.2-2.0[facility] Comment on above:Performed By: #### TSH, CMP #### [facility] [address] [place] [address] Dr. Volodymyr Alcala #0.4 103/ulNormal0.0-0.7The [facility] HospitalComment on above: Performed By: #### TSH, CMP #### [facility] [address] [place] [address] Dr. Volodymyr Haydenosinophils/100 WBC (Bld)5.1 %Normal0.9-7.0[facility] Comment on above:Performed By: #### TSH, CMP #### [facility] [address] [place] [address] Dr. Volodymyr Haydenrythrocyte distribution width (RBC) [Ratio]13.1 %Noasjo99.0-15.0 The [facility] HospitalComment on above:Performed By: #### TSH, CMP #### [facility] [address] [place] [address] Dr. Volodymyr PaezHematocrit (Bld) [Volume fraction]39.7 %Yzdzcd02.0-48.0The [facility] HospitalComment on above:Performed By: #### TSH, CMP #### [facility] [address] [place] [address] Dr. Volodymyr PaezHemoglobin (Bld) [Mass/Vol]13.3 g/kAVnorwa15.0-16.0The [facility] on above:Performed By: #### TSH, CMP #### [facility] [address] [place] [address] Dr. Volodymyr Harrison #0.02 10e3/ulNormal0.00-0.03The [facility] HospitalComhelen [facility] on above:Performed By: #### TSH, CMP #### [facility] [address] [place] [address] Dr. Volodymyr Harrison %0.3 %Normal0.0-0.5The [facility] Centerment on above: Performed By: #### TSH, CMP #### [facility] [address] [place] [address] Dr. Volodymyr PondH #3.6 103/ulNormal1.2-3.8The [facility] on above:Performed By: #### TSH, CMP #### [facility] [address] [place] [address] Dr. Volodymyr Pondhocytes/100 WBC (Bld)47.4 %Aptzwt55.5-60.0The [facility] on above:Performed By: #### TSH, CMP #### [facility] [address] [place] [address] Dr. Volodymyr StroudUAL DIFF REQNONormalThe [facility] HospitalComment on above: Performed By: #### TSH, CMP #### [facility] [address] [place] [address] Dr. Volodymyr Khan (RBC) [Entitic mass]30.3 yrQpikfv31.7-34.0The [facility] HospitalComment on above:Performed By: #### TSH, CMP #### [facility] [address] [place] [address] Dr. Volodymyr Khan (RBC) [Mass/Vol]33.5 g/wIMwzgvw23.9-35.2The [facility]Comment on above:Performed By: #### TSH, CMP #### [facility] [address] [place] [address] Dr. Volodymyr Khan (RBC) [Entitic vol]90.4 nFAsuskf26.0-99.0The [facility] HospitalComment on above:Performed By: #### TSH, CMP #### [facility] [address] [place] [address] Dr. Volodymyr Villegas #0.9 103/ulCritically high0.3-0.8The [facility] Comment on above:Performed By: #### TSH, CMP #### [facility] [address] [place] [address] Dr. Volodymyr Geeocytes/100 WBC (Bld)11.3 %Normal1.7-12.0[facility] Comment on above:Performed By: #### TSH, CMP #### [facility] [address] [place] [address] Dr. Volodymyr Kelly #2.7 103/ulNormal1.4-6.5The [facility] HospitalComment on above:Performed By: #### TSH, CMP #### [facility] [address] [place] [address] Dr. Volodymyr Coulterutrophils/100 WBC (Bld)35.2 %Critically low43.0-75.0The [facility] HospitalComment on above:Performed By: #### TSH, CMP #### [facility] [address] [place] [address] Dr. Volodymyr Llamaslet mean volume (Bld) [Entitic vol]11.4 fLNormal9.5-13.5The [facility] HospitalComment on above:Performed By: #### TSH, CMP #### [facility] [address] [place] [address] Dr. Volodymyr PaezPLT96 103/ulCritically cxi115-132Irh [facility] HospitalComment on above:Result Comment: slide made; no plt clumps seenPerformed By: #### TSH, CMP #### [facility] [address] [place] [address] Dr. Volodymyr PaezRBC4.39 106/ulNormal4.20-5.40The [facility] on above:Performed By: #### TSH, CMP #### [facility] [address] [place] [address] Dr. Volodymyr PaezWBC7.6 103/ulNormal4.0-11.0The [facility] on above: Performed By: #### TSH, CMP #### [facility] [address] [place] [address] Dr. Volodymyr River T4on [id number] T4 [Mass/Vol]1.45 ng/dLNormal0.76-1.46 The [facility] on above:Performed By: #### FT4 #### [facility] [address] [place] [address] Dr. Volodymyr PaezPROF 14(COMP METB)on [id number] [Mass/Vol]3.2 g/dL Critically low3.4-5.0The [facility] HospitalComhelen [facility] on above:Performed By: #### TSH, CMP #### [facility] [address] [place] [address] Dr. Volodymyr PaezAlbumin/Globulin [Mass ratio]0.7 {ratio}NormalThe [facility] on above:Performed By: #### TSH, CMP #### [facility] [address] [place] [address] Dr. Volodymyr PaezALP [Catalytic activity/Vol]65 U/CYfxbra68-642Usj [facility] HospitalComment on above:Performed By: #### TSH, CMP #### [facility] [address] [address] [address] Volodymyr ArcherT [Catalytic activity/Vol]20 U/VMdnsae01-90Ssq [facility] HospitalComment on above:Performed By: #### TSH, CMP #### [facility] [address] [address] [address] Volodymyr Reyeson gap [Moles/Vol]11.3 mmol/LNormalThe [facility] Comment on above:Performed By: #### TSH, CMP #### [facility] [address] [address] [address] Volodymyr PaezAST [Catalytic activity/Vol]25 U/SUsaapw66-47Nuh [facility] HospitalComment on above:Performed By: #### TSH, CMP #### [facility] [address] [address] [address] Volodymyr PaezBilirubin [Mass/Vol]0.3 mg/dLNormal0.2-1.0The [facility] Comment on above:Performed By: #### TSH, CMP #### [facility] [address] [address] [address] Volodymyr PaezCalcium [Mass/Vol]9.5 mg/dLNormal8.5-10.1The [facility] Comment on above:Performed By: #### TSH, CMP #### [facility] [address] [address] [address] Volodymyr PaezChloride [Moles/Vol]100 mmol/ITsdbrs89-780Yvk [facility] Comment on above:Performed By: #### TSH, CMP #### [facility] [address] [address] [address] Volodymyr PaezCO2 [Moles/Vol]30.1 mmol/UNsapkc33.0-32.0The [facility] Comment on above:Performed By: #### TSH, CMP #### [facility] [address] [address] [address] Volodymyr PaezCreatinine [Mass/Vol]0.92 mg/dLNormal0.55-1.02The [facility] HospitalComment on above:Performed By: #### TSH, CMP #### [facility] [address] [address] [address] Volodymyr HaydenGFR-AF CUBAN>60Normal>=60The [facility] HospitalComment on above:Performed By: #### TSH, CMP #### [facility] [address] [address] [address] Volodymyr HaydenGFR-NON AF CUBAN>60Normal>=60The [facility] HospitalComment on above:Performed By: #### TSH, CMP #### [facility] [address] [address] [address] Volodymyr PaezGlobulin (S) [Mass/Vol]4.4 g/dLNormalThe [facility] HospitalComment on above:Performed By: #### TSH, CMP #### [facility] [address] [address] [address] Volodymyr PaezGlucose [Mass/Vol]76 mg/vKJsbjtx09-646NjgNationwide Children'S Hospital Comment on above:Performed By: #### TSH, CMP #### [facility] [address] [address] [address] Volodymyr PaezPotassium [Moles/Vol]4.4 mmol/LNormal3.5-5.1The [facility] Comment on above:Performed By: #### TSH, CMP #### [facility] [address] [address] [address] Volodymyr PaezProtein [Mass/Vol]7.6 g/dLNormal6.4-8.2The [facility] Comment on above:Performed By: #### TSH, CMP #### [facility] [address] [address] [address] Volodymyr PaezSodium [Moles/Vol]137 mmol/AJgwpzm844-880DhwNationwide Children'S Hospital Comment on above:Performed By: #### TSH, CMP #### [facility] [address] [address] [address] Volodymyr PaezUrea nitrogen [Mass/Vol]7.0 mg/dLNormal7.0-18.0The [facility] HospitalComment on above:Performed By: #### TSH, CMP #### [facility] [address] [address] [address] Volodymyr PaezUrea nitrogen/Creatinine [Mass ratio]7.6 mg/mgNormalThe [facility] HospitalComment on above:Performed By: #### TSH, CMP #### [facility] [address] [place] [address] Dr. Volodymyr Everett 70-07-2515PAR1.099 uIU/mLCritically low0.358-3.740The [facility] HospitalComment on above:Performed By: #### TSH, CMP #### [facility] [address] [place] [address] Dr. Volodymyr RaiPAKENE/ VALPROIC ACIDon [id number] ug/mlNormal 50.0-100.0The [facility] HospitalComment on above:Performed By: #### TSH, CMP #### [facility] [address] [place] [address] Dr. Volodymyr Moore THYROIDon [id number] THYROIDEXAMINATION: US THYROID HISTORY: Non-toxic multinodular goiter [...] screening is still recommended. TR 4: The [employer] TI-RADS committee's white paper recommendations for thyroid lesions classified as TR4 (moderately suspicious) are listed below: > 1.0 cm. Follow-up ultrasound in 1, 2, 3, and 5 years. > 1.5 cm. FNA. J. Am Chidi Radiol 2017;14:587-595. Electronically authenticated by: KRIS MENDOZA Date: 2021-10-25 09:31NormalThe [facility] HospitalFREE T4on [id number] T4 [Mass/Vol]1.08 ng/dLNormal0.76-1.46 The [facility] HospitalComment on above:Performed By: #### TSH, CMP #### [facility] [address] [place], [place] [address] Dr. Volodymyr PaezTSHoalex 67-11-0327FIX92.719 uIU/mLCritically high0.358-3.740The [facility] HospitalComment on above:Performed By: #### TSH #### [facility] [address] [place], [place] [address] Dr. Volodymyr Paez Vital Signs Date TimeVital SignValuePerforming LpdcxvsppRwndrgtg49-12-3401 13:45-0500 Diastolic blood zymmgopw20 mm[Hg]Stv (1.5t)[facility]11-07-2025 13:45-0500Heart rate84 /minStv (1.5t)[facility]11-07-2025 13:45-0500Respiratory rate21 /minStv (1.5t)[facility]11-07-2025 13:45-3114WhV9% (BldA) [Mass fraction]99 %Stv (1.5t)[facility] 02-26-2025 13:45-0500Systolic blood pravbqfv776 mm[Hg]Stv (1.5t)[facility]11-07-2025 12:47-0500Body cggwhggyfwm58.8 [degF]Stv (1.5t)[facility]11-05-2025 09:34-0500Body mass index (BMI) [Ratio]22.73 kg/a1LahacShanna Stoll MD Work Phone: [facility]11-05-2025 09:34-0500Body eegirl94.96 kgShanna Stoll MD Work Phone: [facility]11-05-2025 09:34-0500Diastolic blood xfdqoxgx66 mm[Hg]Shanna Stoll MD Work Phone: [facility]11-05-2025 09:34-0500Heart rate 79 /minShanna Stoll MD Work Phone: [facility]11-05-2025 09:34-6063DpS7% (BldA) [Mass fraction]97 %Shanna Stoll MD Work Phone: [facility]11-05-2025 09:34-0500Systolic blood fimfbdnw369 mm[Hg]Shanna Stoll MD Work Phone: 1(463)186-[address] [place], [place] 7074411-04-2025 09:47-0500Body mpktig576.1 cmMarc Dolce DPM FACFAS Work Phone: [phone])[address] [place], [place] 5702511-04-2025 09:47-0500Body mass index (BMI) [Ratio]21.3 kg/m2Marc Dolce DPM FACFAS Work Phone: 1(920)[address] [place], [place] 5702511-04-2025 09:47-0500Body csbquk78.06 kgMarc Dolce DPM FACFAS Work Phone: [phone])[address] [place], [place] 5702511-04-2025 09:47-0500Diastolic blood xbzltkec20 mm[Hg]Lai Alston DPM FACFAS Work Phone: 1(495)[address] [place], [place] 5702511-04-2025 09:47-0500Heart rate70 /min Lai Alston DPM FACFAS Work Phone: 1(887)[address] [place], [place] 5702511-04-2025 09:47-0500Systolic blood kcdhufhi491 mm[Hg]Lai Alston DPM FACFAS Work Phone: 1(831)[address] [place], [place] 5702510-08-2025 13:12-0400Body jgzhia64.74 kgDaubaldo Iyer DO Work Phone: [facility]10-08-2025 13:12-0400 Diastolic blood ixfaeqac44 mm[Hg]Nathan Iyer DO Work Phone: 1(567)[address] [place], [place] 4652810-08-2025 13:12-0400 Heart rate89 /minDaniel Iyer DO Work Phone: 1(568)[address] [place], [place] 6485910-08-2025 13:12-0400 SaO2% (BldA) [Mass fraction]98 %Nathan Iyer DO Work Phone: 1(399)[address] [place], [place] 6485910-08-2025 13:12-0400 Systolic blood jmcilyhp571 mm[Hg]Nathan Iyer DO Work Phone: 1(111)[address] [place], [place] 6485909-19-2025 08:01-0400 Body zefwix027.1 cmDaniel Iyer DO Work Phone: 1(984)[address] [place], [place] 6485909-19-2025 08:01-0400 Body .87 kgDaniel Iyer DO Work Phone: 1(479)[address] [place], [place] 6485909-19-2025 08:01-0400 Diastolic blood vnderfws81 mm[Hg]Nathan Iyer DO Work Phone: 1(557)[address] [place], [place] 6485909-19-2025 08:01-0400 Heart rate87 /minDaniel Iyer DO Work Phone: 1(706)[address] [place], [place] 6485909-19-2025 08:01-0400 Respiratory rate16 /minDaniel Iyer DO Work Phone: 1(086)[address] [place], [place] 6485909-19-2025 08:01-0400 SaO2% (BldA) [Mass fraction]97 %Nathan Iyer DO Work Phone: 1(253)[address] [place], [place] 6485909-19-2025 08:01-0400 Systolic blood wpqkoutt834 mm[Hg]Nathan Iyer DO Work Phone: 1(871)[address] [place], [place] 6485908-05-2025 10:00-0400 Body ebsevw724.1 cmMarc Dolce DPM FACFAS Work Phone: [facility] HospitalZrehmnaezh68-34-4062 10:00-0400Body mass index (BMI) [Ratio]21.3 kg/m2Marc Dolce DPM FACFAS Work Phone: 1(419)[facility]-61[address] HospitalVsnxnthxoc41-92-9753 10:00-0400Body dvuhcs07.06 kgMarc Dolce DPM FACFAS Work Phone: [phone] HospitalCsxmextuyp35-03-6852 10:00-0400Diastolic blood yaadjcji08 mm[Hg]Lai Hackettce DPM FACFAS Work Phone: 1(419)[address] [place], [place] 5702508-05-2025 10:00-0400Heart rate70 /min Lai Dolce DPM FACFAS Work Phone: 1(419)[address] [place], [place] 5702508-05-2025 10:00-0400Systolic blood axsdwbnt611 mm[Hg]Lai Hackettce DPM FACFAS Work Phone: 1(419)[facility] [place], [place] [address]Kftpxikacj27-60-1687 11:03-0400Body omskmc039.1 cmMarc Dolce DPM FACFAS Work Phone: 1(419)[address] [place], [place] 5702505-06-2025 11:03-0400Body mass index (BMI) [Ratio]21.3 kg/m2Marc Dolce DPM FACFAS Work Phone: 1(419)[address] [place], [place] 5702505-06-2025 11:03-0400Body gmwugg07.06 kgMarc Dolce DPM FACFAS Work Phone: [phone] [place], [place] [address] HospitalQdqmfxxggh20-83-0329 11:03-0400Diastolic blood hhhoynhg64 mm[Hg]Lai Alston DPM FACFAS Work Phone: 1(419)[address] [place], [place] 5702505-06-2025 11:03-0400Heart rate71 /min Lai Dolce DPM FACFAS Work Phone: 1(419)[address] [place], [place] 5702505-06-2025 11:03-0400Systolic blood fxsajexn247 mm[Hg]Lai Alston DPM FACFAS Work Phone: [phone] HospitalZpyhmolxvs09-65-9237 10:16-0400Body .1 cmAngsae De Anda PA Work Phone: [facility] HospitalPohabdanvd85-57-2752 10:16-0400Body mass index (BMI) [Ratio]21.47 kg/c1Fsqdub Lowe PA Work Phone: [facility] HospitalVtizugtjkk73-16-7906 10:16-0400Body nkabvv66.51 kgAngela Lowe PA Work Phone: [facility] HospitalCgfrddbibh22-63-1110 10:16-0400Diastolic blood kjfsigov95 mm[Hg]Eduarda Lowe PA Work Phone: [facility] HospitalTcirfkevxf30-70-8138 10:16-0400Systolic blood qrxviwwa662 mm[Hg]Eduarda Lowe PA Work Phone: [facility] HospitalAsuxgwkwdz44-12-0818 10:24-0500Body gyprhm956.1 cmMarjuany Hackettce DPM FACFAS Work Phone: [facility] HospitalIobwfnyyxf18-83-7296 10:24-0500Body mass index (BMI) [Ratio]21.47 kg/m2Marc Alecia DPM FACFAS Work Phone: [facility] HospitalNxnfaejjuv21-41-3163 10:24-0500Body ysduei11.51 kgMarc Dolce DPM FACFAS Work Phone: [facility] HospitalLefwyhovmn83-65-0898 10:24-0500Diastolic blood mm[Hg]Lai Alston DPM FACFAS Work Phone: [facility] HospitalQfngtethdd82-80-0294 10:24-0500Heart rate74 /min Lai Alston DPM FACFAS Work Phone: [facility] HospitalWuwztpzktk39-88-8872 10:24-0500Systolic blood atsrvhml132 mm[Hg]Lai Alston DPM FACFAS Work Phone: [facility] [facility] HospitalSgjdvsuhfn16-56-0533 09:45-0500Body jqijix581.1 cmAngela Lowe PA Work Phone: [facility] HospitalLzhdsituzs57-98-7615 09:45-0500Body mass index (BMI) [Ratio]21.47 kg/n5Vhedjx Lowe PA Work Phone: [facility] HospitalLqhaonoeza95-33-7356 09:45-0500Body ffwcac35.51 kgEduarda AMADOR Work Phone: [place] [phone] 11:19-0500Body ncahmk730.1 cmMarjuany Alston DPM FACFAS Work Phone: [facility] HospitalTirvjidmak00-45-4513 11:19-0500Body mass index (BMI) [Ratio]21.3 kg/m2Marc Dolce DPM FACFAS Work Phone: [place] [phone] 11:19-0500Body yodpyi21.06 kgMarc Dolce DPM FACFAS Work Phone: [place] [phone] 11:19-0500Diastolic blood vnddjpki59 mm[Hg]Lai Alston DPM FACFAS Work Phone: [place] [phone] 11:19-0500Heart rate88 /min Lai Lewezio DPM FACFAS Work Phone: [place] [phone] 11:19-0500Systolic blood tcnofale403 mm[Hg]Lai Alston DPM FACFAS Work Phone: [place] [address]Aqmjffhnfs94-89-1748 12:30-0500Body temperature 98.1 [degF]Elmer AlMisaelLetitiakristin DDS Work Phone: 1(707) [phone]oOfough08-05-5957 12:30-0500Diastolic blood kghzwise74 mm[Hg]Elmer Topete DDS Work Phone: 1(881) [phone]lQsyywq03-26-7523 12:30-0500Heart vbmb144 /min Elmer ForbesLetitiakristin DDS Work Phone: 1(735) [phone]wSqdavr29-02-4053 12:30-0500Respiratory rate19 /minElmer ForbesLetitiakristin DDS Work Phone: 1(216) [phone]eEjagsc34-81-5353 12:30-6029FfV1% (BldA) [Mass fraction]98 %Elmer Topete DDS Work Phone: 1(852) [phone]eOzoucs48-36-1066 12:30-0500Systolic blood pbelfhcn693 mm[Hg]Elmer Topete DDS Work Phone: 1(263) [phone]oIoigqm37-65-2418 09:11-0500Body ameshb629.6 cm Elmer Topete DDS Work Phone: 1(571) [phone]wVrxxvz30-13-2127 09:11-0500Body mass index (BMI) [Ratio]23.45 kg/u8ElqcwElmer Topete DDS Work Phone: 1(183) [phone]sHvosct82-45-1562 09:11-0500Body nqexcb63.96 kg Elmer Topete DDS Work Phone: 1(285) [phone]uBucvsr17-23-7958 11:00-0400Body .6 cm Kelly Cabello FPUovzvFlsbny19-58-7689 11:00-0400Body mass index (BMI) [Ratio] 23.45 kg/s4Dgetghgv Morris JUGpfwqNqccpj27-99-8448 11:00-0400Body .96 kg Kelly Irineo FXJksuyFqjcyg32-17-8887 11:05-0400Diastolic blood mm[Hg]Radha AMADOR Work Phone: noHeart Buddy Hhpghiyopz15-17-6323 11:05-0400Heart rate92 /min Radha AMADOR Work Phone: noLiber[facility] HospitalIikeqhtpxw78-36-3090 11:05-0400Respiratory rate16 /minRadha AMADOR Work Phone: noLiberty HospitalMvtiahqkua36-38-3929 11:05-7495BtL3% (BldA) [Mass fraction]96 %Radha AMADOR Work Phone: noHeart Buddy Dgfbdmlhxi81-40-7783 11:05-0400Systolic blood qhwpisit655 mm[Hg]Radha AMADOR Work Phone: noMS Healthcare Encounters Encounter DateEncounter TypeCare ProviderFacilityStart: 02-26-2025 End: 07-28-7621bzsdarizswWUOKANWAHGDYousif Kang [facility] Start: 02-26-2025 End: 22-30-9759Yigxtgwtki hospital visit by physicianStgabriela Mri Rm 1 (1.5t)[facility] MRIComment on above:Unsteady gait; Seizure disorder (HCC)Start: 02-24-2025 End: 90-43-7349fqhyxkucgtIIRRVP A HERRINGProMedica Collins HospitalStart: 02-24-2025 End: 15-21-8211Ihducp consultation new/estab patient 58 Rohit Stoll MD Work Phone: [facility], A Department of [facility]'S HospitalComment on above:Other allergy, initial encounter (Primary Dx); Chronic rhinitisStart: 02-24-2025 End: 51-27-3897easvxaurqbMOMOQ ELISAMcKitrick Hospital HospitalStart: 02-23-2025 End: 77-52-6199Gjekrc flowsheetMarc D Dolce DPM FACFAS Work Phone: noms [facility] HospitalnStart: 02-23-2025 End: 33-54-7916Fjlkbi flowsheetMarc D Dolce DPM FACFAS Work Phone: noms [facility] Hospitaltart: 02-23-2025 End: 36-16-8989Jvgxwbl encounter procedureMarc D Dolce DPM FACFAS Work Phone: noms NMA PODComment on above:Onychomycosis (Primary Dx); Pain in right toe(s); Pain in left toe(s)Start: 02-23-2025 End: 16-55-8885gqbjuuqiaaGWJO D DOLCENot AvailableStart: 01-27-2025 End: 14-43-1352xtoexcnegfIlbqqn A Iyer DO Work Phone: [facility] Work Phone: Start: 01-27-2025 End: 98-01-0748Ltejxkd encounter procedureChlane Ruano DO-[facility] [place] Work Phone: Start: 01-08-2025 End: 52-88-2555Chmyyiu encounter procedureSmary Duvall QDHR-FVX-W-[facility] HealthStart: 01-08-2025 End: 55-68-1475aruonixluuTuotjy A Iyer DO Work Phone: [facility] Work Phone: Start: 12-28-2024 End: 17-65-2045Gzzrbeqs ReferredSagloria Duvall URCV-FIX-U-Pre-Surgical Testing Work Phone: Start: 12-28-2024 End: 51-25-4594Hiridbu encounter procedureSmary Duvall ALL AROUND PRESSER-MONEY ORDER CLERK-C -Pre-Surgical Testing Work Phone: Start: 12-28-2024 End: 96-41-7404nfztxavymzEqiwys A Iyer DO Work Phone: [facility] Work Phone: Start: 12-24-2024 End: 32-28-1578Zecqva outpatient new 30 minutesMaramanda Monroy PA-C Work Phone: [facility] ThroatComment on above:Recurrent sinusitis (Primary Dx); Recurrent sinus infections; Nasal congestionStart: 12-24-2024 End: 92-77-5532wuwcgxjzuxDKILO D HURLEY MEDICAL CENTERKARENDunlap [facility] Hospital Ambulatory PPGStart: 11-24-2024 End: 69-00-6060Oidbpp flowsheetMarc D Dolce DPM FACFAS Work Phone: noms [facility] AustintownStart: 11-24-2024 End: 08-34-7048Smmwuc flowsheetMarc D Dolce DPM FACFAS Work Phone: noms [facility] AustintownStart: 11-24-2024 End: 49-78-9237zsggwhtvmbJBCJ D DOLCENot AvailableStart: 11-24-2024 End: 76-93-3378Owylpsv encounter procedureMarc D Dolce DPM FACFAS Work Phone: noMS NMA PODComment on above:Onychomycosis (Primary Dx); Pain in right toe(s); Pain in left toe(s)Start: 10-01-2024 End: 16-95-0612uppghhpqjeXbjawc A [facility] CenterFacility:[facility] Hospitaltart: 08-25-2024 End: 48-24-7194Ttpxsl flowsheetMarc D Dolce DPM FACFAS Work Phone: [facility] PODStart: 08-25-2024 End: 97-00-8334Xbzpii flowsheetMarc D Dolce DPM FACFAS Work Phone: [facility] PODStart: 08-25-2024 End: 50-93-1029Dpyfmxs encounter procedureMarc D Dolce DPM FACFAS Work Phone: noMS NMA PODComment on above:Onychomycosis (Primary Dx); Pain in right toe(s); Pain in left toe(s)Start: 08-25-2024 End: 17-35-2608vwfsvmhvfdAZSO D DOLCENot AvailableStart: 08-11-2024 End: 77-25-2702Mhnuza flowsheetAngela Lowe PA Work Phone: aNA [place]Start: 08-11-2024 End: 33-31-4300Gocifs flowsheetAngela Lowe PA Work Phone: aNA [place]LEVUEStart: 08-11-2024 End: 43-71-2998Jppczu outpatient visit 25 minutesAngela Lowe PA Work Phone: aNA BELLEVUEComment on above:Seizure disorder (CMS/HCC) (Primary Dx); Gait instability; Pseudobulbar affect; Developmental delay; WeaknessStart: 08-11-2024 End: 18-16-7639vhjenvptsvVMINAD LOWENot AvailableStart: 06-10-2024 End: 22-45-8591Mdgftm flowsheetMarc D Dolce DPM FACFAS Work Phone: [facility] PODStart: 06-10-2024 End: 26-85-3892Owtuyl flowsheetMarc D Dolce DPM FACFAS Work Phone: [phone] PODStart: 06-10-2024 End: 42-07-5408Rdzliul encounter procedureMarc D Dolce DPM FACFAS Work Phone: noMS NMA PODComment on above:Onychomycosis (Primary Dx); Pain in right toe(s); Pain in left toe(s)Start: 06-10-2024 End: 13-73-9934huwmjlhoflBJUU D DOLCENot AvailableStart: 06-03-2024 End: 58-16-2094Bnbqrd outpatient visit 25 minutesAngeamanda AMADOR Work Phone: aNA [place]Comment on above:Seizure disorder (CMS/HCC) (Primary Dx); Autism (CMS/HCC); Developmental delay; Gait instabilityStart: 06-03-2024 End: 51-61-8244ndsacuvmgxYUEYXX LOWENot AvailableStart: 03-10-2024 End: 45-66-9397Rrxkvm flowsheetMarc D Dolce DPM FACFAS Work Phone: [facility] PODStart: 03-10-2024 End: 64-15-3562Xmcsdq flowsheetMarc D Dolce DPM FACFAS Work Phone: [phone] PODStart: 03-10-2024 End: 60-34-7061nfdrcomvcvQEOU D DOLCENot AvailableStart: 03-10-2024 End: 16-64-4015Tjfdum outpatient new 30 minutesMarc D Dolce DPM FACFAS Work Phone: noms NMA PODComment on above:Venous insufficiency (chronic) (peripheral) (Primary Dx); Onychomycosis; Pain in right toe(s); Pain in left toe(s); OnychocryptosisStart: 03-02-2024 End: 72-20-6725Agvnpiw encounter procedureElmer Topete DDS Work Phone: [facility] DentistryStart: 03-02-2024 End: 21-16-9847Caljenvyzv hospital visit by physicianElmer Topete DDS Work Phone: [facility] Ambulatory SurgeryStart: 03-02-2024 End: 92-82-5010covzoqraugMAXXC AL-MASHNIFacility:[facility] HospitalStart: 02-26-2024 End: 05-33-4588Aqblwtnfj encounterKelly Cabello RNWexner Medical Center Pre-Admission TestingComment on above:Pre-surgical Evaluation (DD adult dental restorations 03/02 under [place] at [place]. PAT completed - anesthesia consent. PAT RN spoke to Mary (nurse), confirmed NPO, [place] address, and 0900 arrival time/)Start: 02-24-2024 End: 36-97-7584Fgamfylez encounterAshleigh Kaplan [facility] Pre-Admission TestingComment on above:PAT (Anesthesia consent obtained)Start: 02-21-2024 End: 17-32-8782Nnlwmbkqo encounterMelbao Kaplan [facility] Pre-Admission TestingComment on above:PAT (Anesthesia consent obtained)Start: 02-19-2024 End: 19-66-0864Ncmoewb evaluation of patient and reportKelly Cabello RN [facility] Pre-Admission TestingComment on above:Pre-op evaluation (Primary Dx)Start: 02-19-2024 End: 82-10-7667Oktdynxucknfv examination doneKelly Cabello RNWexner Medical CenterStart: 86-93-8434jzrsbxchenYBJWWTS PROVIDERFacility:[facility] CENTERHealthStart: 02-19-2024 Encounter for other preprocedural examinationUNKNOWN PROVIDERThe [facility] SystemStart: 02-05-2024 End: 28-45-0752Exwaojy encounter Nisha Ferrell APRN-KEMI Work Phone: [facility] Pre-Admission TestingComment on above:NO SHOW (Primary Dx)Start: 01-21-2024 End: 71-78-9644Thydao Alis AMADOR Work Phone: [facility] ROUTEStart: 01-21-2024 End: 26-99-0094Zbpvlu flowsheetRadha Juan AMADOR Work Phone: noms [facility] ROUTEStart: 01-21-2024 End: 02-73-5684Gcgjri outpatient visit 15 Adriel Martinez PERRY Work Phone: noms [facility] ROUTEComment on above:Seizure disorder (CMS/HCC) (Primary Dx); Mental deficiency (CMS/HCC); Autism (CMS/HCC); Pseudobulbar affect; Gait instabilityStart: 12-27-2023 End: 04-59-8600Zjgnbddbr to same day surgery Angelique Weber DDS Work Phone: [facility] DentistryStart: 01-09-2023 End: 52-25-0381ydnrvytlsaTGPGZW HERRINGFacility:FTMCStart: 08-29-2022 End: 67-57-9336liodvzgxevOF DANIEL A HERRINGFacility:J3Dgcxw: 08-21-2022 End: 71-79-7991vyzvemdzhnVP DOCTOR MISCFacility:V1Jnxyu: 08-09-2022 End: 71-01-1371exlrxpqvsbOS DANIEL A HERRINGFacility:U3Yljff: 07-21-2022 End: 05-41-6391mbfmjlmhwaTO UMAIR TURNER .Facility:Q6Fpfeo: 07-10-2022 End: 04-02-3604djajxtqujzZZ DOCTOR MISCFacility:F0Kvvmk: 06-27-2022 End: 51-14-5917wlrugbttmjLW NONE LISTED REQUESTFacility:E6Getdo: 04-30-2022 Telephone encounterMartha Coreas DMD Work Phone: [facility] CenterComment on above:DentalStart: 04-03-2022 End: 33-04-2782asakvtivgrGY DANIEL A HERRINGFacility:G4Zcltk: 03-13-2022 End: 45-24-2792Osjhtxc encounter procedureMartha Coreas DMD Work Phone: [facility] DentistryStart: 10-24-2021 End: 92-90-0806dkzjusndqsRA DOCTOR MISCFacility:P9Svkzy: 11-07-2016 End: 15-32-3766GlfalyqavvNKYOSOF PHYSICIANFacility:[facility] Procedures DateProcedureProcedure DetailPerforming ClinicianStart: 02-26-2025 End: 81-96-4219Lqz spinal canal cervical w/o contrast matrlChriván Feliciano DO Work Phone: Start: 85-45-9119Pewkktojhtwq chorionic qualitative Дмитрий Feliciano DO Work Phone: Start: 03-02-2024 End: 72-39-4960Uyaae test visual color cmprsn Windy Luna MD Work Phone: Plan of Treatment DateCare ActivityDetailAuthorStart: 53-62-3035Uoykrmkk (RZV) Vaccine (1 of 2) Shingles (RZV) Vaccine (1 of 2)[facility]Start: 15-03-1343Ylpcu BMI Screening Adult BMI ScreeningUniversity Hospitals Elyria Medical Center SystemStart: 12-22-2025 End: 67-23-0869Rfyfpon encounter gekmpvmdf18/02/2026 11:00 AM EDT Office Visit [facility] [address] [place] [address] Matilde Wilson, [facility] [address] [place] [address] [facility] DentistryStart: 05-25-2025 End: 49-36-9441Fidtrmt encounter qotvqzqxh45/03/2026 9:30 AM EST Procedure Visit [facility] [address] [place] [address] Lai Alston, DPM FACFAS [address] [facility] [place] [address] [facility] NMA PODStart: 03-16-2025 End: 07-61-5817Pxulety encounter jxgagouke21/25/2025 12:45 PM EST Office Visit [facility] [address] [place] [address] Philip Monroy, PA-C [address] [facility] [address] [place] [address] [facility] ThroatStart: 79-96-1889Moljpr X-Ray: BitewingsDental X-Ray: BitewingsMetroHealthStart: 02-24-2025 End: 04-40-4253Bswsmck encounter dbdlbouad88/05/2025 9:30 AM EST Office Visit [facility] A Department of [facility] [address] [place] [address] Shanna Stoll MD [address] [place] [address] [facility], A Department of [facility] Start: 02-23-2025 End: 37-81-8514Eqynpsa encounter procedureNOMS NMA PODComment on above:Arrived Start: 02-17-2025 End: 44-00-5789Fvbffao encounter ieymzfuwq78/29/2025 2:45 PM EDT Office Visit [facility] [address] [place] [address] Philip Monroy, PAJosse [address] [facility] [address] [place] [address] [facility] ThroatStart: 29-46-3756Uebznk Wellness Visit (Medicare)Annual Wellness Visit (Medicare)[facility] HealthcareStart: 07-43-8822JS CAT/MRI W/ IV SEDATION (Not Applicable)OR CAT/MRI W/ IV SEDATION (Not Applicable)[facility] Hospitaltart: 07-85-6945RAMUW-19 Vaccine ( season) COVID-19 Vaccine ( season)[facility] HealthcareStart: 12-21-2024 COVID-19 Vaccine ( season)COVID-19 Vaccine ( season) [facility]HealthStart: 40-76-3973TOLPM-19 Vaccine ( season)COVID-19 Vaccine ( season)[facility] HealthcareStart: 78-07-5622LYEWW-19 Vaccine ( season)COVID-19 Vaccine ()[facility] Start: 54-04-8939Yzcpntsqx vaccinationNOAR HealthcareStart: 45-12-3756Icmouvjwp vaccinationFlu vaccine (#1)[facility] HealthcareStart: 11-03-2024 End: 00-63-1725Efpxvvt encounter mjozrpvfb03/15/2025 11:00 AM EDT Procedure Visit [facility] [address] [place] [address] Lai Alston, DPM FACFAS [address] [place] [address] [facility] Ank[facility] SpecialistsStart: 75-76-5219Dxvtrm Oral ExamDental Oral ExamMetroHealthStart: 89-10-6958Szwoyb ProphylaxisDental ProphylaxisMetroHealthStart: 08-25-2024 End: 70-80-2940Mnocrer encounter procedureANA [place] CLINTONComment on above: ArrivedStart: 08-19-2024 End: 18-38-7158Idqoxhr encounter sptjnmrib18/30/2025 11:00 AM EDT Procedure Visit [facility] [address] [place] [address] Lai Alston, DPM FACFAS [address] [place] [address] [facility]MA PODStart: 08-11-2024 End: 05-41-7234Gyqsjvh encounter procedureANA BELLEVUEComment on above:Arrived Start: 06-10-2024 End: 43-06-5424Tsyjzzo encounter procedureNOMS NMA PODComment on above:Arrived Start: 05-12-2024 End: 03-78-2908Ssebmsc encounter ndhvcjxhy34/21/2025 11:20 AM EST Office Visit [facility] [place] [facility] [address] [place] [address] Radha Martinez PA [address] [place] [address] [facility] ROUTEStart: 03-02-2024 End: 22-95-1231Fkzmwmmlk to same day surgery pnolxw4503/02/2024 9:14 AM EST - 03/02/2024 10:58 AM EST Surgery [facility] [address] [place], [place] [address] Elmer Topete S [address] [place] [address] DENTAL RESTORATIONS [facility] Ambulatory SurgeryComment on above:DENTAL RESTORATIONSStart: 03-02-2024 End: 23-79-7360LUOXSN RESTORATIONSMetroHealthStart: 03-02-2024 End: 75-52-6593Rsxidlbxl to same day surgery uaqsni9303/02/2024 7:40 AM EST - 03/02/2024 9:24 AM EST Surgery [facility] [address] [place] [address] Elmer Topete S [address] [place] [address] DENTAL RESTORATIONS [facility] Ambulatory SurgeryComment on above:DENTAL RESTORATIONSStart: 03-02-2024 End: 67-34-7690DSADCC RESTORATIONSDENTAL RESTORATIONS Routine scheduled Caries 03/02/2024 7:40 AM ESTMetroHealthStart: 30-87-9596Wxrjziaosq hospital visit by physicianPrem[facility] Health [facility] Ambulatory SurgeryStart: 03-02-2024 End: 01-52-2212Iltfvvb encounter procedureMetroWexner Medical Center DentistryStart: 02-05-2024 End: 98-33-5629Xcbuxnc encounter nbzlufnpp45/16/2024 9:15 AM EDT Office Visit [facility] Pre-Admission Testing [address] [place] [address] Refugio Ferrell, ALL AROUND PRESSER-RELAYS DRAFTSPERSON [address] [place] [address] [facility] Pre-Admission TestingStart: 16-30-0539Pvkxqdzrc vaccinationInfluenza Vaccine (#1)[facility] Start: 01-21-2024 End: 00-82-7348Iumrjkgewez levelLamotrigine level Lab Routine Seizure disorder (CMS/HCC) Expected: 01/21/2024 (Approximate), Expires: 01/20/2025[facility] Work Phone: comment on above:Expected: 01/21/2024 (Approximate), Expires: 01/20/2025Start: 01-21-2024 End: 68-00-3208Sjzhfamz acid level, totalValproic acid level, total Lab Routine Seizure disorder (CMS/HCC) Expected: 01/21/2024 (Approximate), Expires: 01/20/2025[facility] HealthcareComment on above:Expected: 01/21/2024 (Approximate), Expires: 01/20/2025Start: 14-67-7454LYGNC-19 Vaccine ( season)COVID- 19 Vaccine ( season)[facility]HealthStart: 05-36-6342ZJVGY-19 Vaccine ( season)COVID-19 Vaccine ( season)[facility]HealthStart: 32-59-9936Keewteieg vaccinationInfluenza Vaccine (#1)[facility]roHealthStart: 15-47-2664Qreineind for malignant neoplasm of cervixNOMS HealthcareStart: 72-43-7067Zcolxrfll vaccinationInfluenza Vaccine (#1)[facility]HealthStart: 47-19-5150RSsB,Tdap and Td Vaccines (3 - Td or Tdap)DTaP,Tdap and Td Vaccines (3 - Td or Tdap)[facility] SystemStart: 74-88-3349SYKYF-19 Vaccine (3 - Booster for Pfizer series)COVID-19 Vaccine (3 - Booster for Pfizer series) [facility]HealthStart: 82-54-4705UHS Vaccine (optional start 27-45 years)HPV Vaccine (optional start 27-45 years)[facility]HealthStart: 10-66-0596QGY Vaccines (1 - 3-dose SCDM series)HPV Vaccines (1 - 3-dose SCDM series)[facility] HealthcareStart: 98-14-1530Odajjvtkb for malignant neoplasm of cervixPap SmearMetroHealthStart: 65-51-4747Yuoxbw wellness visitAnnual Wellness Visit (G0438)[facility]HealthStart: 31-55-4864PKrI/Tdap/Td vaccine (1 - Tdap)DTaP/Tdap/Td vaccine (1 - Tdap)[facility] HealthcareStart: 17-84-3095Eudjevymx A (HAV) Vaccine (optional start 19+ years)Hepatitis A (HAV) Vaccine (optional start 19+ years)[facility]HealthStart: 91-94-5971Lxfjhxzhw B vaccinationHepatitis B (HBV) Vaccine (1 of 3 - 19+ 3-dose series)[facility]HealthStart: 94-02-7822Lypvhutlt B vaccine (1 of 3 - 19+ 3-dose series)Hepatitis B vaccine (1 of 3 - 19+ 3-dose series)[facility] Start: 74-25-3781Dntmazgqe B Vaccines (1 of 3 - 19+ 3-dose series)Hepatitis B Vaccines (1 of 3 - 19+ 3-dose series)[facility] HealthcareStart: 62-89-3732Svvpe BMI ScreeningAdult BMI ScreeningProRegency Hospital Cleveland East SystemStart: 02-50-9882Benytelyi C screeningMetroHealthStart: 19-81-2283Hmsutgz + diphtheria + acellular pertussis vaccine (product)Tdap BoosterMetroHealthStart: 03-77-7060NMT screening [facility]HealthStart: 98-63-4671Sgbbohy of varicella vaccinationVaricella Vaccines (1 of 2 - 13+ 2-dose series)[facility] HealthcareStart: 16-18-0572Gwchvvwom vaccine (1 of 2 - 13+ 2-dose series)Varicella vaccine (1 of 2 - 13+ 2-dose series)[facility] HospitalStart: 02-30-4554Rfltgvhoej ScreenDepression ScreenBon Pomerene HospitalStart: 80-77-3705Wcsdrexctd ScreeningDepression Screening [facility] SystemStart: 00-83-7506Fcnqgbk ScreeningTobacco Screening [facility] SystemStart: 54-25-1659OBdA/Tdap/Td Vaccines (1 - Tdap) DTaP/Tdap/Td Vaccines (1 - Tdap)[facility] HealthcareStart: 89-84-2072KJH Vaccines (1 of 1 - Standard series)MMR Vaccines (1 of 1 - Standard series)[facility] Healthcare Start: 1993Medicare Annual Wellness (AWV)Medicare Annual Wellness (AWV) NOM HealthcareDENTAL RESTORATIONSDENTAL RESTORATIONS Routine scheduled Caries [facility] End: 28-80-3428HYDFTCOW PACU OXYGEN THERAPY PROTOCOLInitiate PACU Oxygen Therapy Protocol Respiratory Care Routine Continuous until discontinued starting 02/26/2025 [facility]annerMotor2Comment on above:Continuous until discontinued starting 02/26/2025Oxygen therapy [Minimum Data Set]Initiate Oxygen Therapy Protocol Respiratory Care Routine As Needed until discontinued starting [facility] Work Phone: Comment on above:As Needed until discontinued starting 02/26/2025Patient referralMckitrick Hospital Work Phone: End: 71-58-2164Idozgmkwdbb allergy panelRespiratory allergy panel Lab Routine Chronic rhinitis Other allergy, initial encounter 1 Occurrences starting 02/24/2025 until 02/24/2026[facility] Work Phone: Comment on above:1 Occurrences starting 02/24/2025 until 02/24/2026Respiratory allergy panelRespiratory allergy panel Lab Routine Chronic rhinitis Other allergy, initial encounter 02/24/2025 10:42 AM EST Intellitactics SystemSpirometry panelIncentive spirometry Respiratory Care Routine Every 2hr while awake until discontinued starting 02/26/2025 BannerMotor2Comment on above:Every 2hr while awake until discontinued starting 02/26/2025 End: 77-07-1429Wytax , POCTUrine , POCT Point of Care Testing Routine One Time for 1 Occurrences starting 02/26/2025 until 02/26/2025on Marika [facility] HospitalComment on above:One Time for 1 Occurrences starting 02/26/2025 until 02/26/2025 Payers DatePayer CategoryPayerPolicy [id number]-[id number] --Stand AloneDENTAL-MEDICAID Member Subscriber Plan / Payer (Effective 2014-Present) Name: Ponce Esteves Relation to Subscriber: Self Name: Ponce Esteves Payer ID: Not on file Group ID: Not on file Type: Medicaid Address: [address] [place] [id number]40.787582.1.13.56.2.7.3.049196.315 2013Medicare1.2.840.392156.1.13.56.2.7.3.872328.315 2013Medicare [facility] 1.2.840.432554.1.13.56.2.7.9.0871[id number] 2.16.840.1.223894.3.57[id number] 2.16840.1.337658.3.57[id number] 2.16840.1.350785.3.57[id number] 2.16840.1.231317.3.57[id number] 2.840.1.026795.3.57[id number] 2.840.1.339427.3.57[id number] 2.840.1.491566.3.57[id number] 2.840.1.867889.3.57[id number] 2.840.1.790694.3.57[id number] 2.840.1.088420.3.57[id number] 2.840.1.763812.3.57[id number] 2.840.1.238052.3.57[id number] 2.840.1.403088.3.57[id number] 2.840.1.064302.3.57[id number] 2.840.1.636488.3.579.2.175 [id number] 1960Medicare [id number] 2.840.1.375102.3.579.2. Fodiarx1532925 2.840.1.029540.3.57[id number] 2.840.1.697992.3.57[id number] 2.840.1.047713.3.579.[id number] 2.840.1.501414.3.579.[id number] 2.840.1.404057.3.57[id number] 2.840.1.123249.3.579.[id number] 2.840.1.505361.3.579.2.[id number] 2.840.1.34485[id number] 03a43659-mw55-65ye-674[id number] 2.840.1.49750[id number] 2.840.1.279074.3.579.2.531 [id number] 2.0.1.574895.3.579.2.531 Social History DateTypeDetailFacilityTobacco smoking status NHISTobacco smoking consumption unknownMetroHealthStart: 80-94-0710Mvx Assigned At BirthNot on fileMetroHealth Start: 10-01-2023 End: 69-67-7497Ldjjto identityNot on [facility] SystemStart: 09-03-2017 End: 55-18-3838Teticad smoking status NHISNever smoked tobaccoNOMS Healthcare Start: 09-03-2017 End: 48-41-4623Ksdfact use and exposureSmokeless tobacco non-userNOMS Healthcare Start: 10-01-2023 End: 38-36-2024Ybityjtex beverage intakeLifetime non-drinker (finding)N[facility] HealthcareStart: 10-01-2023 End: 46-85-2972Zkgbdjo of Social functionUniversity Hospitals Ely[facility] SystemStart: 07-06-2014 End: 22-28-8590RxcPqprpq (finding)MetroHealthStart: 07-01-2019 End: 02-78-8827Ehhhxwlgs beverage intakeCurrent non-drinker of alcohol (finding) [facility] SystemStart: 81-75-8928Rtvxytkpbn depression screening ppwljdwccl2UeeMqpuwjAtrium Health Mountain Islandtart: 59-09-1002Mhv Assigned At [facility] Centertart: 45-45-9785Zqvznph of drug misuse behaviorHas never misused drugs (situation)[facility] Goals DatePatient GoalDesired Activity/State Clinical Notes 03-13-2022 to 02-26-2025 Note Date & SyibAvyyKsdxfqil53-14-9404 Hospital Discharge instructions* Discharge Instructions* Korina Ríos RN - 02/26/2025 1:39 PM EST No alcoholic beverages, no driving or operating machinery, no making important decisions for 24 hours. You may have a normal diet but should eat lightly day of surgery. Drink plenty of fluids. Urinate within 8 hours after surgery, if unable to urinate call your doctor documented in [facility] encounterBon [facility] History of Present illness Narrative* Shanna Stoll MD - 02/24/2025 9:30 AM EST Images from the original note were not included. [facility] [...] 2018 Performed by Destiney Magaña MD at [facility] W[facility] TOOTH EXTRACTION FAMILY HISTORY: Family History Problem Relation Age of Onset Hypothyroidism Father SOCIAL HISTORY: Social History Socioeconomic History Marital status: Single Tobacco Use Smoking status: Never Smokeless tobacco: Never Substance and Sexual Activity Alcohol use: No Drug use: No Sexual activity: Defer Environmental History: Allergy Environmental History Lives with: penitentiary Secondhand Smoke Exposure?: No Pets: no pets Mold/mildew: No Housing Type: penitentiary facility AC: Central Air Conditioning Heating: Furnace [...] stridor, CTAB with good aeration throughoutall lung daliey Abdomen: soft, non-distended Skin: No rash, hives, [...] both accurate and complete. Shanna Stoll MD [facility] Total time spent was 45 minutes: preparing to see the patient (e.g., review of tests), obtaining and/or reviewing history, examination, counseling and educating the patient/family/caregive, orders and documenting clinical information in the electronic or other health record. documented in this encounterThe Jewish HospitalGlobal Renewables [facility] HospitalVtwlhi94-85-5976 Instructions* Patient Instructions* Shanna Stoll MD - [...] pending allergy test results. documented in this encounterParkview [facility]11-04-[facility] History of Present illness Narrative* Lai [...] affect 08/06/2023 Gait instability 08/06/2023 Seizure disorder ([facility]) Mental disability 01/15/2024 Resolved Ambulatory [...] subungual debris. They were painful to palpation 80230 on the right 80680 on the left. VASC: DP /PT were nonpalpable bilateral. Capillary refill time < 3 seconds Digits 1-5 bilateral NEURO: Canyon Cecy 5.07 monofilament was intact B/L. Vibratory [...] bedtime, Disp: , Rfl: documented in this encounterBates County Memorial HospitalYknpuuduxh36-91-1333 Evaluation note* Diagnosis Onset Date Resolution Status Admit Date Autism acuteOctober 2024 12:36pmMental deficiencyacuteOctober 2024 12:36pm Gait instabilitychronicOctober 2024 12:36pmSeizure disorderchronicOctober 2024 12:36pm [facility] Work Phone: 1(444) 610-324809-04-2025 History of Present illness Narrative* Philip Monroy PA-C - 12/24/2024 10:15 AM EDT [facility] [address] [place] [id number] SUBJECTIVE: Patient ID (1995): Ponce Esteves is [...] autism and developmental delay and resides at [facility]. Mom reports that Ponce experiences chronic nasal [...] a brain MRI to be completed at [facility] in [place] next week which has to be done [...] 2018 Performed by Destiney Magaña MD at [facility]TRA[facility] Family History Problem [...] [facility] - [place], [place] - [facility] [place], [place]; Future Nasal congestion - [facility] - [place], [place] - [facility] [place], [place]; Future - azelastine (ASTELIN) 137 mcg [...] to ensure the accuracy of this automated captain waiter/waitress, some errors in captain waiter/waitress may have occurred. Philip Monroy PA-C 12/24/24 1224 documented in this encounterParkview Health [facility]08-05-2025 History of Present illness Narrative* Lai [...] subungual debris. They were painful to palpation 35638 on the right 20777 on the left. VASC: DP /PT were nonpalpable bilateral. Capillary refill time < 3 seconds Digits 1-5 bilateral NEURO: Canyon Cecy 5.07 monofilament was intact B/L. Vibratory [...] 1through 10. MAURA Salas documented in this encounterBates County Memorial HospitalRjvchvxspi59-36-4068 History of Present illness Narrative* MAURA Salas [...] subungual debris. They were painful to palpation 17350 on the right [address] on the left. VASC: DP /PT were nonpalpable bilateral. Capillary refill time < 3 seconds Digits 1-5 bilateral NEURO: Canyon Cecy 5.07 monofilament was intact B/L. Vibratory [...] 1through 10. MAURA Salas documented in this encounterBates County Memorial HospitalSxcmcycamu71-44-9934 History of Present illness Narrative* PERRY Vazquez [...] Review Audit Reviewed by Freida Amezquita MA (Dial Screw Assembler) on 08/11/24 at 1017 Medication Order Taking? Sig Documenting Provider Last Dose Status ammonium lactate (Amlactin) 12 % cream [id number] Apply 2 application topically Daily Patient not taking: Reported on 06/03/2024 Historical ProviderMD Active busPIRone (Buspar) 30 MG tablet [id number] Take 30 mg by mouth in the morning and 30 mg in the evening and 30 mg before bedtime. Historical ProviderMD Active cloNIDine (Catapres) 0.2 MG tablet [id number] Take 0.2 mg by mouth in the morning and 0.2 mg at noon and 0.2 mg in the evening and 0.2 mg before bedtime. Real Schneider MD Active divalproex (Depakote) 125 MG EC tablet [id number] Take 500 mg by mouth in the morning and 500 mg in the evening and 500 mg before bedtime. Real Schneider MD Active divalproex (Depakote) 125 MG EC tablet [id number] Take 1,000 mg by mouth at bedtime Do not crush, chew, or split. Historical MD Jennie Active famotidine (Pepcid) 40 MG tablet [id number] Take 40 mg by mouth Daily Historical MD Jennie Active guanFACINE (Tenex) 2 MG tablet [id number] Take 2 mg by mouth in the morning and 2 mg before bedtime. Real Schneider MD Active lamoTRIgine (LaMICtal) 100 MG tablet [id number] Take 100 mg by mouth at bedtime Historical MD Jennie Active lamoTRIgine (LaMICtal) 150 MG tablet [id number] Take 150 mg by mouth in the morning. Real Schneider MD Active levothyroxine (Synthroid, Levoxyl) 200 MCG tablet [id number] Take 200 mcg by mouth in the morning. Take before meals. Historical ProviderMD Active levothyroxine (Synthroid, Levoxyl) 25 MCG tablet [id number] Take 25 mcg by mouth in the morning. Takebefore meals. Real Schneider MD Active loratadine (Claritin) 10 MG tablet [id number] Take 10 mg by mouth Daily Historical ProviderMD Active Melatonin 3 MG tablet dispersible [id number] Take 3 mg by mouth at bedtime Historical ProviderMD Active norethindrone-ethinyl estradiol (Ortho-Novum, Nortrel) 1-35 MG-MCG tablet [id number] Take 1 tablet bymouth Daily Historical ProviderMD Active paliperidone (Invega) 3 MG 24 hr tablet [id number] Take 3 mg by mouth in the morning and 3 mg before bedtime. Do not crush, chew, or split.. Historical ProviderMD Active polyethylene glycol, PEG, 3350 (Miralax) 17 g packet [id number] Take 17 g by mouth Daily Historical ProviderMD Active QUEtiapine (SEROquel) 200 MG tablet [id number] Take 200 mg by mouth at bedtime Historical MD Jennie Active QUEtiapine (SEROquel) 400 MG tablet [id number] Take 400 mg by mouth at bedtime Historical ProviderMD Active HPI History obtained from caregiver report from [facility] Caregiver from [facility] here with patient today SEIZURE -on lamictal and depakote -denies any missed doses -denies any recent seizure -[place] continues to use a wheelchair -she is [...] triceps, wrist extensors, wrist extensors, wrist flexor, air grinder strength 5/5. LUE Strength deltoid, biceps, triceps, wrist extensors, wrist extensors, wrist flexor, air grinder strength 5/5. RLE Strength illopsoas, quadriceps, tibialis [...] is note from PT and staff at [facility] that the patient has had continued loss [...] or CTA she would require sedation per [place]. She continues with balance disturbance and worsening strength per PT at [facility]. Blood work 09/12/2023: Valproic acid level 93.9, [...] Progress notes and PT notes reviewed from [place]. We will look into local options for [...] Follow up after imaging. documented in this encounterBates County Memorial HospitalDqibdrbaah75-99-8721 History of Present illness Narrative* Lai Alston [...] Past Medical History: Diagnosis Date Anxiety Autism ([facility]) Disturbance of salivary secretion Mood [...] subungual debris. They were painful to palpation 93993 on the right 26239 on the left. VASC: DP /PT were nonpalpable bilateral. Capillary refill time < 3 seconds Digits 1-5 bilateral NEURO: Canyon Cecy 5.07 monofilament was intact B/L. Vibratory [...] 1through 10. MAURA Salas documented in this encounterBates County Memorial HospitalOiglomoanz52-61-2888 History of Present illness Narrative* PERRY Vazquez [...] Review Audit Reviewed by Krista Wu MA (Dial Screw Assembler) on 06/03/24 at 0955 Medication Order Taking? Sig Documenting Provider Last Dose Status ammonium lactate (Amlactin) 12 % cream [id number] Apply 2 application topically Daily Patient not taking: Reported on 06/03/2024 Historical MD Jennie Active busPIRone (Buspar) 30 MG tablet [id number] Take 30 mg by mouth in the morning and 30 mg in the evening and 30 mg before bedtime. Historical MD Jennie Active cloNIDine (Catapres) 0.2 MG tablet [id number] Take 0.2 mg by mouth in the morning and 0.2 mg at noon and 0.2 mg in the evening and 0.2 mg before bedtime. Historical MD Jennie Active divalproex (Depakote) 125 MG EC tablet [id number] Take 500 mg by mouth in the morning and 500 mg in the evening and 500 mg before bedtime. Real Schneider MD Active divalproex (Depakote) 125 MG EC tablet [id number] Take 1,000 mg by mouth at bedtime Do not crush, chew, or split. Real Schneider MD Active famotidine (Pepcid) 40 MG tablet [id number] Take 40 mg by mouth Daily Real Schneider MD Active guanFACINE (Tenex) 2 MG tablet [id number] Take 2 mg by mouth in the morning and 2 mg before bedtime. Real Schneider MD Active lamoTRIgine (LaMICtal) 100 MG tablet [id number] Take 100 mg by mouth at bedtime Real Schneider MD Active lamoTRIgine (LaMICtal) 150 MG tablet [id number] Take 150 mg by mouth in the morning. Real Schneider MD Active levothyroxine (Synthroid, Levoxyl) 200 MCG tablet [id number] Take 200 mcg by mouth in the morning. Take before meals. Real Schneider MD Active levothyroxine (Synthroid, Levoxyl) 25 MCG tablet [id number] Take 25 mcg by mouth in the morning. Takebefore meals. Historical ProviderMD Active loratadine (Claritin) 10 MG tablet [id number] Take 10 mg by mouth Daily Historical ProviderMD Active Melatonin 3 MG tablet dispersible [id number] Take 3 mg by mouth at bedtime Historical ProviderMD Active norethindrone-ethinyl estradiol (Ortho-Novum, Nortrel) 1-35 MG-MCG tablet [id number] Take 1 tablet bymouth Daily Historical ProviderMD Active paliperidone (Invega) 3 MG 24 hr tablet [id number] Take 3 mg by mouth in the morning and 3 mg before bedtime. Do not crush, chew, or split.. Historical ProviderMD Active polyethylene glycol, PEG, 3350 (Miralax) 17 g packet [id number] Take 17 g by mouth Daily Historical ProviderMD Active QUEtiapine (SEROquel) 200 MG tablet [id number] Take 200 mg by mouth at bedtime Historical ProviderMD Active QUEtiapine (SEROquel) 400 MG tablet [id number] Take 400 mg by mouth at bedtime Historical ProviderMD Active HPI History obtained from caregiver report from [place] Caregiver from [place] here with patient today SEIZURE -on lamictal and depakote -denies any missed doses -denies any recent seizure -[place] continues to use a wheelchair for long [...] triceps, wrist extensors, wrist extensors, wrist flexor, air grinder strength 5/5. LUE Strength deltoid, biceps, triceps, wrist extensors, wrist extensors, wrist flexor, air grinder strength 5/5. RLE Strength illopsoas, quadriceps, tibialis [...] or CTA she would require sedation per [place]. She had two recent falls 07/17/23and 08/02/23. She was evaluated at [facility] ER. Lamictal dose was recently [...] seizure prevention Continue with fall precautions at [place] and assisted transfers and supervision/assistance with ambulation to avoid falls. She is at a high risk of trauma and debility associated with falls. Follow up 2 months documented in this encounterBates County Memorial HospitalFdwiryuwld45-15-8715 History of Present illness Narrative* Lai Alston DPM FACFAS - 03/10/2024 10:50 AM EST patient: Ponce Esteevs : 1995 PCP: Nathan Iyer MD SUBJECTIVE [...] Autism ([facility]) Disturbance of salivary secretion Mood [...] subungual debris. They were painful to palpation 11412 on the right 63556 on the left. VASC: DP /PT were nonpalpable bilateral. Capillary refill time < 3 seconds Digits 1-5 bilateral NEURO: Canyon Cecy 5.07 monofilament was intact B/L. Vibratory [...] the nails. MAURA Salas documented in this encounterBates County Memorial HospitalDyyjqszuae77-46-1312 Hospital Discharge instructions* Discharge Instructions* Rehana Aguillon RN - 03/02/2024 12:22 PM EST PERIOPERATIVE DISCHARGE/HOME-GOING INSTRUCTIONS ANESTHESIA - GENERAL (ADULT) If a problem arises, you may contact your physician by calling [phone] and asking for the resident healthcare liaison for Dental service. Special Care Needs: Activity: [...] very uncomfortable and can t urinate, call [phone] or come to the emergency room. A [...] the home going instructions. documented in this o[id number] Miscellaneous Notes* Brief Operative Note - Paula Contreras DDS - 03/02/2024 10:26 AM EST Brief Operative Note [facility] OR 3 Ponce Esteves 29 year old female Surgical Contact Serial Number: [id number] Preoperative Diagnosis: Pre-op Diagnosis * Caries [K02.9] Postoperative Diagnosis: * Caries [K02.9] Procedures: Full mouth x-ray [41643] Prophylaxis [49352] Restorations [82347] Floride application [95759] Surgeon(s): Surgeon(s): Elmer Topete DDS Staff: Customer Business Manager Nurse: Trudi Padilla Water Treatment Plant Supervisor: Paula Contreras DDS; Melquiades Christie DDS Anesthesia: General Anesthesiologist: Milton Luna MD BURRING WHEEL OPERATOR: Adalgisa Smith APRN-DARSHAN Cook Dessert: Dayanna Preciado MD Specimen(s): * No specimens [...] were discussed with the patient and/or legal guest relations representative. The risks, benefits and alternatives were reviewed. Questions regarding blood transfusions were answered. The patient /or the patient s legal guest relations representative agree with the plan for transfusion of blood and/or blood components. * OP Note - Paula Contreras DDS - 03/01/2024 6:14 PM EST Surgical Case Number Data Unavailable Operating Room Data Unavailable Preoperative Diagnosis(es): Caries [k02.9] Surgeon: Dr. Topete Material Lister Surgeon: Melquiades Arias DDS - Paula Contreras [...] the treatment plan included the following: Composite confucianist on tooth#7 surface ML. Amalgam restorations on [...] 03/02/2024 11:56 AM EST documented in this [id number] Surgery Postoperative evaluation and management note* Brief Operative Note - Paula Contreras DDS - 03/02/2024 10:26 AM EST Brief Operative Note [facility] OR 3 Ponce Esteves 29 year old female Surgical Contact Serial Number: [id number] Preoperative Diagnosis: Pre-op Diagnosis * Caries [K02.9] Postoperative Diagnosis: * Caries [K02.9] Procedures: Full mouth x-ray [15441] Prophylaxis [01431] Restorations [25739] Floride application [62876] Surgeon(s): Surgeon(s): Elmer Topete DDS Staff: Customer Business Manager Nurse: Trudi Padilla Water Treatment Plant Supervisor: Paula Contreras DDS; Melquiades Christie DDS Anesthesia: General Anesthesiologist: Milton Luna MD BURRING WHEEL OPERATOR: Adalgisa Smith APRN-DARSHAN Cook Dessert: Dayanna Preciado MD Specimen(s): * No specimens [...] Topete DDS at 03/02/2024 11:55 AM EST [id number] History and physical note* Melquiades Christie DDS - 03/02/2024 9:38 AM EST Images from the original note were not included. Surgical History and Physical [facility] [address] [place] [address] Name: Ponce Esteves : 1995 29 year old CSN: [id number] Attending: Elmer Topete DDS Date of Admission: 03/02/2024 8:38 AM Room/Bed: [facility] OR/NONE Planned Procedure: Procedure(s): DENTAL RESTORATIONS HPI: [...] surgical history indicates: EXTRACTION, TOOTH (09/15/2014) Procedure: [place] teeth; Surgeon: Bradley Goodwin DDS; Location: [...] or any previous visit (from the past 60795 hours). BMP (last 3 years, up to [...] Topete DDS at 03/02/2024 11:48 AM EST [facility] Work Phone: 1(594) 574-714411-11-2024 NoteSurgical History and Physical [facility] [address] [place] [address] Name: Ponce Esteves : 1995 29 year old CSN: [id number] Attending: Elmer Topete DDS Date of Admission: 03/02/2024 8:38 AM Room/Bed: [facility] OR/NONE Planned Procedure: Procedure(s): DENTAL RESTORATIONS HPI: [...] surgical history indicates: EXTRACTION, TOOTH (09/15/2014) Procedure: [place] teeth; Surgeon: Bradley Goodwin DDS; Location: [...] or any previous visit (from the past 18668 hours). BMP (last 3 years, up to [...] DDS. Melquiades Stewart DDS 03/02/24 9:38 AMThe OpenTrustWoldme [id number] History and physical note* Melquiades Christie DDS [...] Topete DDS at 03/02/2024 11:48 AM EST [id number] NoteSurgical Attestation: I have reviewed the patient's History and Physical Examination. I have personally seen and evaluated the patient, repeating cabrera portions. There is no significant interval change. Surgery is still indicated. Yes Consent reviewed and signed by patient/family: Yes Operative site verified and marked: site verified but not marked as not anatomically possible Melquiades Stewart DDS 03/02/2024 9:38 AMThe [employer] Flpnue49-12-7026 Progress note* Blood Attestation - Milton Luna MD - 03/02/2024 9:16 AM EST Blood Attestation: ATTESTATION OF INFORMED CONSENT FOR BLOOD: The transfusion of blood and/or blood components were discussed with the patient and/or legal guest relations representative. The risks, benefits and alternatives were reviewed. Questions regarding blood transfusions were answered. The patient /or the patient s legal guest relations representative agree with the plan for transfusion of blood and/or blood components. [employer] Work Phone: 1(431) 754-542711-11-2024 History of Present illness Narrative* Elmer Mcpherson DDS - 03/02/2024 8:12 AM EST ----- Saturday, March 02, 2024 at 11:38:59 AM ----- ----- Provider: [id number] Misael Rebolledo DDS -- Clinic: [facility] ----- [place] notes, pt is ready for tx [place]. X-Rays look good, few cavities found and confirmed clinically. restos completed. OP Note by Paula Contreras DDS at 03/01/2024 6:14 PM Author: Paula Contreras DDS Service: Dentistry Author Type: Resident Filed: 03/02/2024 11:56 AM Date of Service: 03/01/2024 6:14 PM Note Type: OP Note Status: Cosign Needed Special Education Teaching Assistant: Paula Contreras DDS (Resident) Cosign Required: Yes Expand All Collapse All Surgical Case Number Data Unavailable Operating Room Data Unavailable Preoperative Diagnosis(es): Caries [k02.9] Surgeon: Dr. Topete Material Lister Surgeon: Melquiades Arias DDS - Paula Contreras [...] the treatment plan included the following: Composite confucianist on tooth#7 surface ML. Amalgam restorations on [...] 2024 at 11:57:17 AM ----- ----- Provider: [id number] Misael Rebolledo DDS -- Clinic: [facility] ----- documented in this [id number] Surgery Surgical operation note* OP Note - Paula Contreras DDS - 03/01/2024 6:14 PM EST Surgical Case Number Data Unavailable Operating Room Data Unavailable Preoperative Diagnosis(es): Caries [k02.9] Surgeon: Dr. Topete Material Lister Surgeon: Melquiades Arias DDS - Paula Contreras [...] the treatment plan included the following: Composite confucianist on tooth#7 surface ML. Amalgam restorations on [...] Topete DDS at 03/02/2024 11:56 AM EST [id number] NoteSurgical Attestation: I have reviewed the patient's History and Physical Examination. I have personally seen and evaluated the patient, repeating cabrera portions. There is no significant interval change. Surgery is still indicated. Yes Consent reviewed and signed by patient/family: Yes Operative site verified and marked: Verified but not marked Paula Contreras DDS 03/01/2024 6:10 PMTKindred Healthcare11-04-2024 Telephone encounter Note* Telephone Encounter - Ashleigh Kaplan RN - 02/24/2024 9:07 AM EST Anesthesia consent obtained and scanned into [employer]. Scheduled for surgery 03/02/2024. [id number] Miscellaneous Notes* Telephone Encounter - Ashleigh Kaplan RN - 02/24/2024 9:07 AM EST Anesthesia consent obtained and scanned into [employer]. Scheduled for surgery 03/02/2024. documented in this [id number] Telephone encounter Note* Telephone Encounter - Ashleigh Kaplan RN - 02/21/2024 12:22 PM EDT Anesthesia consent obtained and scanned into [employer]. Scheduled for surgery 03/02/2024. [id number] Miscellaneous Notes* Telephone Encounter - Ashleigh Kaplan RN - 02/21/2024 12:22 PM EDT Anesthesia consent obtained and scanned into [facility]. Scheduled for surgery 03/02/2024. documented in this [id number] Instructions* Discharge Instructions* Kelly Cabello RN - [...] otherwise contacted. ? [facility] one business day prior to [...] Your Surgery/Procedure booklet or [facility] ([email or web address] if you have questions. Contact the Pre-Admission Testing department at [phone] or your surgeon's office with any questions [...] a car, cab, shared ride service, or OpenTrustro-van. You will not be allowed to drive yourself home or travel home alone. Your surgery may be cancelled if you do not have a ride. A responsible adult must stay with you after surgery. Please call [employer] if you need transportation assistance or have concerns about going home [phone]. ? PLEASE BE ON TIME. A late arrival may result in the cancellation/ delay of your surgery. Thank you for choosing [facility]; it is our pleasure to care for you documented in this [id number] Evaluation note* PAT Call History - Kelly Cabello, RN - 02/19/2024 11:55 AM EDT Telephone History Ponce Esteves, [id number] 02/19/2024 Patient was identified by name and date of via Jerman, caregiver. Needs: Physical, Neck Circumference, BHCG, and ED on DOS. 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 If the patient becomes ill prior to procedure or surgery, they are to call their provider or surgeon's office directly. 29 year old 136.6 lbs 5' 4 Date of Surgery: 03/02 Surgeon: Yoselyn Type of Surgery: DENTAL RESTORATIONS HISTORY OF PRESENT ILLNESS: telephone history for the upcoming surgery at [facility], [address] [place], enter through the [place] entrance doors. 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 Fluticasone Propionate (FLONASE NASAL) [place] into each nostril. Selenium (SELENIMIN ORAL) Take [...] otherwise contacted. ? Expect a call from [facility] one business day prior to surgery for [...] your Preparing for Your Surgery/Procedure booklet or [email or web address] if you have questions. Contact the Pre-Admission Testing department at [phone] or your surgeon's office with any questions [...] stay with you after surgery. Please call [employer] if you need transportation assistance or have concerns about going home [phone]. ? PLEASE BE ON TIME. A late arrival may result in the cancellation/ delay of your surgery. Thank you for choosing [facility]; it is our pleasure to care for you Kelly Cabello RN Time Spent Performing this Telephone History: 48 with follow-up [place]: [id number] Miscellaneous Notes* PAT Call History - Kelly Cabello RN - 02/19/2024 11:55 AM EDT Telephone History Ponce Esteves, [id number] 02/19/2024 Patient was identified by name and [...] telephone history for the upcoming surgery at [facility], [address] [place], enter through the [facility] doors. STOP-BANG Row Name 02/19/24 1154 History [...] (+) teeth problems missing Endo (+) hypothyroidism standards analyst - negative ROS Neuro/Psych (+) bipolar disorder, seizures, intellectual disability Cardiovascular - negative ROS GI/Hepatic/Renal (+) GERD Heme/Other - negative ROS PAST SURGICAL HISTORY: Past Surgical History: Procedure Laterality Date EUA, ORAL 09/15/2014 Procedure: EUA, ORAL; Surgeon: Bradley Goodwin DDS; Location: PERIOPERATIVE SERVICES; Service: Oral EXTRACTION, TOOTH Bilateral 09/15/2014 Procedure: [place] teeth; Surgeon: Bradley Goodwin DDS; Location: [...] Take by mouth. Fluticasone Propionate (FLONASE NASAL) [place] into each nostril. Selenium (SELENIMIN ORAL) Take [...] otherwise contacted. ? Expect a call from [facility] one business day prior to surgery for [...] questions. Contact the Pre-Admission Testing department at [phone] or your surgeon's office with any questions [...] stay with you after surgery. Please call [facility] Social Work if you need transportation assistance or have concerns about going home [phone]. ? PLEASE BE ON TIME. A late arrival may result in the cancellation/ delay of your surgery. Thank you for choosing [facility]; it is our pleasure to care for you Kelly Cabello RN Time Spent Performing this Telephone History: [address] follow-[address] [facility]: documented in this [id number] Miscellaneous Notes* PAT Call History - Kelly Cabello RN - 02/19/2024 11:55 AM EDT Telephone History Ponce Sonu, [id number] 02/19/2024 Patient was identified by name and date of via Jerman, caregiver. Needs: Physical, Neck Circumference, BHCG, and ED on DOS. 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 If the patient becomes ill prior to procedure or surgery, they are to call their provider or surgeon's office directly. 29 year old 136.6 lbs 5' 4 Date of Surgery: 03/02 Surgeon: Yoselyn Type of Surgery: DENTAL RESTORATIONS HISTORY OF PRESENT ILLNESS: telephone history for the upcoming surgery at [facility], [address] [place], enter through the [facility] doors. STOP-BANG Row Name 02/19/24 3259 History of sleep apnea? Yes NO PSG [...] (+) teeth problems missing Endo (+) hypothyroidism standards analyst - negative ROS Neuro/Psych (+) bipolar disorder, seizures, intellectual disability Cardiovascular - negative ROS GI/Hepatic/Renal (+) GERD Heme/Other - negative ROS PAST SURGICAL HISTORY: Past Surgical History: Procedure Laterality Date EUA, ORAL 09/15/2014 Procedure: EUA, ORAL; Surgeon: Bradley Goodwin DDS; Location: PERIOPERATIVE SERVICES; Service: Oral EXTRACTION, TOOTH Bilateral 09/15/2014 Procedure: [place] teeth; Surgeon: Bradley Goodwin DDS; Location: [...] Take by mouth. Fluticasone Propionate (FLONASE NASAL) [place] into each nostril. Selenium (SELENIMIN ORAL) Take [...] otherwise contacted. ? Expect a call from [facility] one business day prior to surgery for [...] your Preparing for Your Surgery/Procedure booklet or [email or web address] if you have questions. Contact the Pre-Admission Testing department at [phone] or your surgeon's office with any questions [...] stay with you after surgery. Please call [facility] Social Work if you need transportation assistance or have concerns about going home [phone]. ? PLEASE BE ON TIME. A late arrival may result in the cancellation/ delay of your surgery. Thank you for choosing [facility]; it is our pleasure to care for you Kelly Cabello RN Time Spent Performing this Telephone History: [address] follow-[address] [facility]: documented in this [id number] History and physical note* Melquiades Christie DDS - 03/02/2024 9:38 AM EST Images from the original note were not included. Surgical History and Physical [facility] Surgery [address] [address] Name: Ponce Esteves : 1995 29 year old CSN: [id number] Attending: Elmer Topete DDS Date of Admission: 03/02/2024 8:38 AM Room/Bed: [facility] OR/NONE Planned Procedure: Procedure(s): DENTAL RESTORATIONS HPI: [...] surgical history indicates: EXTRACTION, TOOTH (09/15/2014) Procedure: [place] teeth; Surgeon: Bradley Goodwin DDS; Location: [...] or any previous visit (from the past 49458 hours). BMP (last 3 years, up to [...] DDS. Discussed with attending Elmer Topete DDS. Melquaides Stewart DDS 03/02/24 9:38 AM Cosigned by [...] 03/02/2024 11:48 AM EST documented in this [id number] Miscellaneous Notes* Telephone Encounter - Liliana Song - 04/30/2022 3:03 PM EST Bina from [facility] calling in. She wanted to know where the pt was at on the OR wait list. E-mail sent to Connie E-mail sent 04/30/22 documented in this [id number] Telephone encounter Note* Telephone Encounter - Liliana Song - 04/30/2022 3:03 PM EST Bina from [facility] calling in. She wanted to know where the pt was at on the OR wait list. E-mail sent to Connie E-mail sent 04/30/22 [id number] History of Present illness Narrative* Martha Coreas DMD - 03/13/2022 10:06 AM EST ----- Sunday, March 13, 2022 at 11:58:40 AM ----- ----- Provider: [id number] Coreas DMD -- Clinic: [place] ----- OR EVALUATION Patient presents for evaluation [...] a time slot becomes available. Legal Guardian: Tohsia Esteves Phone #: [phone] NOTE: Patient had a hard time leaning her head back, but allowed me to look. Patient not indicatingshe is in any pain. #8 is very discolored - most likely will need RCT treatment. Gingiva very red and irritated. Caregiver did not know who patient's guardian was or contact information, looked it up in [facility]. Next Visit: OR documented in [facility]* Diagnosis Caries- Primary Unspecified dental caries [facility]* Diagnosis Caries- Primary Unspecified dental caries Caries- Primary Unspecified dental caries documented [facility]* Diagnosis Seizure disorder ([facility]/HCC)- Primary Unspecified epilepsy without mention of intractable epilepsy Mental deficiency ([facility]) Unspecified mental retardation Autism ([facility]) Autistic disorder, current or active [...] [facility]* Diagnosis Seizure disorder ([facility]/HCC)- Primary Unspecified epilepsy without mention of intractable epilepsy Autism ([facility]) Autistic disorder, current or active state Developmental delay Unspecified delay in development Gait instability Abnormality of gait documented [facility] this [facility]* Diagnosis Onychomycosis- Primary Dermatophytosis of nail Pain in right toe(s) Pain in left toe(s) documented in this [facility]* Diagnosis Seizure disorder ([facility]/HCC)- Primary Unspecified epilepsy without mention of intractable [...] [facility] noteNo assessment information available [facility] Work Phone: Evaluation note* Diagnosis Onychomycosis- Primary Dermatophytosis of nail Pain in right toe(s) Pain in left toe(s) documented in this encounter [facility]* Diagnosis Other allergy, initial encounter- Primary Chronic rhinitis documented in this [facility]* Diagnosis Unsteady gait Abnormality of gait Seizure disorder (HCC) Unspecified epilepsy without mention of intractable epilepsy [facility] encounter [facility]* Diagnosis Unsteady gait Abnormality of gait Seizure disorder (HCC) Unspecified epilepsy without mention of intractable epilepsy documented in this encounter [facility] HealthInstructionsNot on filedocumented in this encounter [facility] SystemReason for referral (narrative)No reason for referral information availableMagruder Memorial Hospital Ctr Work Phone: Reason for visit Narrative* Auth/Cert (Routine) SpecialtyDiagnoses / ProceduresReferred By ContactReferred To Contact Ambulatory Surgery Diagnoses Caries Caries [K02.9] Procedures INTERDENTAL FIXATION. UNLISTED PROCEDURE, DENTOALVEOLAR STRUCTURES DENTAL RESTORATIONS Elmer Topete, DDS [address] [place] [address] Phone: tel: fax: THE [employer] [address] [place] [phone] Phone: tel: Referral IDStatusReasonStart DateExpiration DateVisits RequestedVisits [id number] [facility] for visit Narrative* Imaging (Routine) - Pending Review SpecialtyDiagnoses / ProceduresReferred By ContactReferred To ContactRadiology Diagnoses Unsteady gait Seizure disorder (HCC) Procedures MRI CERVICAL SPINE WO CONTRAST Дмитрий Feliciano M, DO [address] [place] [address] Phone: tel: fax: Referral IDStatusReasonStart DateExpiration DateVisits RequestedVisits [id number] [facility] Narrative* Imaging (Routine) - Pending ReviewSpecialtyDiagnoses / ProceduresReferred By ContactReferred To Contact Radiology Diagnoses Unsteady gait Seizure disorder (HCC) Procedures MRI BRAIN W WO CONTRAST Дмитрий Feliciano, DO [address] [place] [address] Phone: tel: fax: Referral IDStatusArabellaAtoka DateExpiration DateVisits RequestedVisits [id number] Nlzwrz84/ [facility] Summary Purpose Family History No Family History Records FoundNo Family History Records FoundNo Family History Records FoundNo Family History Records FoundNo Family History Records FoundNo Family History Records FoundNo Family History Records FoundNo Family History Records FoundNo Family History Records Found Advance Directives TypeDate RecordedPatient RepresentativeExplanationLiving Will09/03/2017 4:36 PM LEGAL GU81ST MEDICAL GROUPIANSHIP/AG[facility]EMENT [facility] Advance Directive Response Recorded Date/ Time Advance Directives No December 12:12pm TypeDate RecordedPatient RepresentativeExplanationLiving Will09/03/2017 4:36 PM LEGAL GURADIANSHIP/AGREEMENT FOR [facility] Reason for Referral SpecialtyDiagnoses / ProceduresReferred By ContactReferred To Contact Anesthesiology Diagnoses Caries Elmer Topete, DDS [address] [place] [id number] [facility] PRE ADMISSION TESTING [address] [place] [address] Referral IDStatusLibra DateExpiration DateVisits RequestedVisits [id number]/6/20249/ Scheduling Instructions Your surgical team will reach [...] CREATED AUTHOR AUTHOR'S ORGANIZ ATION 09/02/2022 [facility] DATE CREATED AUTHOR AUTHOR'S ORGANIZ ATION 01/11/2023 [facility] DATE CREATED AUTHOR AUTHOR'S ORGANIZ ATION 03/10/2024 [facility] DATE CREATED AUTHOR AUTHOR'S ORGANIZ ATION 12/26/2024 [facility] DATE CREATED AUTHOR AUTHOR'S ORGANIZ ATION 01/22/2025 [facility] DATE CREATED AUTHOR AUTHOR'S ORGANIZ ATION 02/24/2025 [facility] DATE CREATED AUTHOR AUTHOR'S ORGANIZ ATION 02/26/2025 [facility] DATE CREATED AUTHOR AUTHOR'S ORGANIZ ATION 03/01/2025 [facility] Reason for Visit (unrecogniz ed section and content) ReasonOnset JqcuChggoiwtNbmilo11/09/2023ReasonCommentsSeizuresReasonOnset Date SstwwixvCNF42/01/2024nesthesia consent obtainedReasonOnset DateCommentsPAT 02/24/2024nesthesia consent obtainedReasonOnset DateCommentsPre-surgical Enuswzhukp60/06/2024D adult dental restorations 03/02 under [place] at [place]. PAT completed - anesthesia consent. ZOHRA RN spoke to Mary (nurse), confirmed NPO, [place] address, and 0900 arrival timeReasonCommentsToenail ProblemRT grt nail fungalReasonCommentsToenail CareNon DM nail careReasonCommentsSinus ProblemNasal CongestionSpecialtyDiagnoses / ProceduresReferred By ContactReferred To Contact Otolaryngology Diagnoses Recurrent sinus infections Nasal congestion Ref Prov, [place] [address] [facility] [address] [place] [address], [address] [place] [address] Phone: tel: fax: Referral IDStatusReasonStart DateExpiration DateVisits RequestedVisits [id number] Review Specialty Services Required /[id number] PatientRed puffy eyes, runny noses, more likely year roundSpecialtyDiagnoses / ProceduresReferred By ContactReferred To ContactAllergy and Immunology Diagnoses Recurrent sinus infections Nasal congestion Philip Monroy, TAMIKO [address] [facility] [address] [place] [address] Phone: tel: fax: [facility]ology, A Department of [address] [place] [phone] Phone: tel: fax: Referral IDStatusReasonStart DateExpiration DateVisits RequestedVisits [id number] Review Care Teams (unrecognized sec tion and content) Team MemberRelationshipSpecialtyStart DateEnd Date Unallocated, May Schneider MD [address] [place] [address] PCP - GeneralFamily Medicine07/09/23 Kris Mcguire MD [address] [place] [address] Referring PhysicianNeurology07/09/23Team MemberRelationshipSpecialtyStart DateEnd Date Unallocated, May Schneider MD [address] [place], [place] [address] [address] PCP - GeneralFamily Medicine07/09/23 Kris Mcguire MD [address] [place] [address] Referring PhysicianNeurology07/09/23Team MemberRelationshipSpecialtyStart DateEnd Date Nathan Iyer MD [address] [place] [address] PCP - Generalmily Xuyfljgn95/19/24 Kris Mcguire MD [address] [place] [address] Referring PhysicianNeurology07/09/23Team MemberRelationshipSpecialtyStart End Date Nathan Iyer MD [address] [place] [address] [facility] Vkcxmqtn20/19/24 Kris Mcguire MD [address] [place] [address] Referring PhysicianNeurology07/09/23Team MemberRelationshipSpecialtyStart End Nathan Iyer MD [address] [employer] [address] [place] [address] PCP - [facility] Ekzsykbl27/19/24 Kris Mcguire MD [address] [place] [address] Referring PhysicianNeurology07/09/23Team MemberRelationshipSpecialtyStart End Date Nathan Iyer MD [address] [place] [address] PCP - GeneralFamily Ubxcuuhx33/19/24 Kris Mcguire MD [address] [place] [address] Referring PhysicianNeurology07/09/23Team MemberRelationshipSpecialtyStart DateEnd Date Nathan Iyer MD [address] [place] [address] P[facility] - [facility] Lmdludul71/19/24 Kris Mcguire MD [address] [id number] Referring PhysicianNeurology07/09/23Team MemberRelationshipSpecialtyStart End Nathan Iyer MD [address] [place] [address] PCP - GeneralFami Cgztkdmg20/19/24 Kris Mcguire MD Referring PhysicianNeurology07/09/23Team MemberRelationshipSpecialtyStart End Nathan Iyer MD [address] [place] [address] PCP - GeneralFami Lwtstslo61/19/24 Kris Mcguire MD Referring PhysicianNeurology07/09/23Team MemberRelationshipSpecialtyStart DateEnd Date Nathan Iyer MD [address] [place] [address] PCP - [facility]George [facility] Jowpfgcy45/19/24 Kris Mcguire MD Referring PhysicianNeurology07/09/23Team MemberRelationshipSpecialtyStart DateEnd Date Nathan Iyer MD [address] [place], [place] [address] PCP - [facility] Wkeuinrg97/19/24 Kris Mcguire MD Referring PhysicianNeurology07/09/23Team MemberRelationshipSpecialtyStart DateEnd Date Nathan Iyer DO [address] [place] [address] PCP - GeneralGeorge [facility]ally Medicine08/23/17 Team Status: Active Member Role [...] MemberRelationshipSpecialtyStart DateEnd Date Nathan Iyer MD [address] [place] [address] PCP - GeneralFamily Rvtnryth53/19/24 Kris Mcguire MD Referring PhysicianNeurology07/09/23Team MemberRelationshipSpecialtyStart DateEnd Date Nathan Iyer MD [address] [place], [place] [address] PCP - GeneralFamily Idiqyqgf80/19/24 Kris Mcguire MD Referring PhysicianNeurology07/09/23Team MemberRelationshipSpecialtyStart DateEnd Date Nathan Iyer DO [address] [place] [address] PCP - GeneralFamily Medicine08/23/17Team MemberRelationshipSpecialtyStart DateEnd Date Nathan Iyer MD [address] [place] [phone] PCP - GeneralFamily Mawtiivz10/7/25Team MemberRelationshipSpecialtyStart DateEnd Date Nathan Iyer MD [address] [place] [phone] PCP - GeneralFamily Amratkiz61/7/25 PRN Active and Recently Administ ered Medications [...] BE BASED ON THE PRIMARY CLINICAL RECORDS. [employer] provides no warranty or guarantee of the accuracy or completeness of information in this document.
--- OUTSIDE RECORDS SUMMARY | 2025-03-16 07:02 | XMS_ITS | Clinical Summary ---
Author Organization [facility] Address [address] [facility] [place] [address] Care Team Providers Care Claim Investigator Name Role Phone Unavailable Primary Care Provider Unavailabl e Source Comments The following information is NOT included in Care Everywhere downloads:Psychiatric notes, ECG results, Cardiac Rehab notes, Pulmonary Function notes, data from SmartForms (includes but not limited toPregnancy data,audiograms, eye exams, pre-surgical evaluation notes, well-child exam data).[facility] Allergies Active AllergyReactionsCriticalityNoted ZawyVrivgyozOkphyrbiffh82/11/2024 GcebiyhzfcvcZzwf10/27/2015 Medications MedicationSigDispense QuantityRefillsLast FilledStart DateEnd DateStatus Lactobacillus (ACIDOPHILUS) CAPS Take by mouth.Active CLONIDINE HCL ORAL Take by mouth.Active docusate sodium (COLACE) 100 MG capsule Take 100 mg by mouth 2 times daily.Active Fluticasone Propionate (FLONASE NASAL) [place] into each nostril.Active Selenium (SELENIMIN ORAL) Take [...] times daily.Active Resolved Problems ProblemNoted DateDiagnosed DateResolved QszjPlfftk35 Social History Tobacco UseTypesPacks/DayYears UsedDateSmoking Tobacco: NeverSmokeless Tobacco: Never Tobacco Cessation:Counseling Given: Not Answered Alcohol UseStandard Drinks/WeekCommentsNever0 (1 standard drink = 0.6 oz pure alcohol)Substance UseTypesUse/WeekCommentsNeverCommentsNoSex and Gender InformationValueDate RecordedSex Assigned at BirthNot on fileLegal SexFemale 07/06/2014 1:56 PM EDTGender IdentityNot on fileSexual OrientationNot on file Last Filed Vital Signs Vital SignReadingTime TakenCommentsBlood Drifjmvy181/7303/02/2024 12:30 PM EST Idwif95718/11/2024 12:30 PM HRTTamerhfugrt85.7 ??C (98.1 ??F)03/02/2024 12:30 PM ESTRespiratory Tahq799103/02/2024 12:30 PM ESTOxygen Qrrlswaosg37%03/02/2024 12:30 PM ESTInhaled Oxygen Concentration--Lgqrrb06 kg (136 lb 9.6 oz)03/02/2024 9:11 AM LQTQnanxi610.6 cm (5' 4 )03/02/2024 9:11 AM ESTBody Mass Index23.45105/02/2023 9:11 AM EST Plan of Treatment DateTypeDepartmentCare Team (Latest Contact Info)Lsevyuxxzuk13/02/2026 11:00 AM EDTOffice Visit [facility] [address] [place], [place] [id number] Kaushal Wilson, [facility] [address] [place] [address] Health MaintenanceDue DateLast DoneCommentsHIV Test01/02/2008Hepatitis C Qworlpnl98/12/2011Tdap Giribjx2101/01/2011Hepatitis A (HAV) Vaccine (optional start 19+ years)01/02/2012Hepatitis B (HBV) Vaccine (1 of 3 - 19+ 3-dose series) 01/02/2012nnual Wellness Visit (G0438)12/21/2013Pap Smear2014HPV Vaccine (optional start 27-45 years)01/02/2020Dental Oral Exam4Dental Ngqompyndql63OVID-19 Vaccine ( - 2024- season)2024 05/24/2020, 05/03/2020Influenza Vaccine (#1)2024Dental X-Ray: Bitewings Shingles (RZV) Vaccine (1 of 2)2043Mammography DiscontinuedPneumococcal Vaccine(s)Aged OutNo longer eligible based on patient's age to complete this topic Procedures Procedure NamePriorityDate/TimeAssociated DiagnosisCommentsPROPHY ADULT 14 & XJNDKKvntkbt44/11/2024 12:00 AM ESTCOMPREHENSIVE WQMSOfvxrci24/11/2024 12:00 AM ESTfrom Last 3 Months or Most Recently Relevant to Health Maintenance Insurance * Guarantor: Barbra Ascencio TypeRelation to PatientDate of BirthPhone Billing ErlruweAxlgsfdwxylmmUctg1995 [address] [place] [address]
--- OUTSIDE RECORDS SUMMARY | 2025-03-16 07:02 | XMS_ITS | Clinical Summary ---
Author Organization [facility] Address [address], [address] [place] [address] Care Team Providers Care Detective Name Role Phone Nathan Iyer MD Primary Care Provider + [phone] Allergies Active AllergyReactionsCriticalityNoted DateCommentsLinaclotideNausea And FtebtyurRxe73/06/7574GadganknjzziWujmigy32/06/2025 rash Medications MedicationSigDispense QuantityRefillsLast FilledStart DateEnd DateStatus [...] topically as needed skin rednessActive Encounters DateTypeDepartmentCare WxdaHtolaxgaiyi38/07/2025 11:21 AM ESTAnesthesia Event [address] [address] Jose Lawrence MD Trost, Christina, APRN - CRNA 02/26/2025 9:46 AM EST - 02/28/2025 11:59 PM ESTHospital Encounter [address] [address] Unsteady gait; Seizure disorder (HCC) Discharge Disposition: Home or Self Care02/26/2025 9:46 AM EST - 02/28/2025 11:59 PM ESTHospital Encounter [address] [address] Unsteady gait; Seizure disorder (HCC) Discharge Disposition: Home or Self Care01/21/2025Transcribe Orders [facility] [address] [place] [address] [phone] Ramos Feliciano DO Seizure disorder (HCC) (Primary Dx); Unsteady gaitfrom Last 3 Months Family History Medical HistoryRelationNameCommentsNo Known ProblemsFatherNo Known Problems MotherRelationNameStatusCommentsFatherAliveMotherAlive Social History Tobacco UseTypesPacks/DayYears UsedDateSmoking Tobacco: Never Assessed Interpersonal Safety Domain Source: IP Abuse ScreeningAnswerDate Recorded Physical uxbneBkkrzk19/07/2025Verbal cimrrIofero99/07/2025Emotional abuseDenies 02/26/2025Financial zkbcpHvwniz86/07/2025Sexual dfvgnZcifog85/07/2025 CommentsUnknownSex and Gender InformationValueDate RecordedSex Assigned at Not on fileLegal LaxLevfzu66/22/2025 9:46 AM EDTGender IdentityNot on fileSexual OrientationNot on file Last Filed Vital Signs Vital SignReadingTime TakenCommentsBlood Rfuepjfj973/7002/26/2025 1:45 PM EST Kbuln081902/26/2025 1:45 PM USIFooutniyoyv56 ??C (96.8 ??F)02/26/2025 12:47 PM EST Respiratory Wdjk804402/26/2025 1:45 PM ESTOxygen Pfhltrruto69%02/26/2025 1:45 PM ESTInhaled Oxygen Concentration--Rmiiwb98.3 kg (139 lb 9.6 oz)02/25/2025 3:10 PM EFGIcrttj544.6 cm (5' 4 )02/25/2025 3:10 PM ESTBody Mass Index23.9602/25/2025 3:10 PM EST Plan of Treatment Health MaintenanceDue DateLast DoneCommentsDepression Vqsdvq4301/01/2005Varicella vaccine (1 of 2 - 13+ 2-dose series)2006HIV qqfdmv1801/02/2008Hepatitis C uppsmu9501/01/2011DTaP/Tdap/Td vaccine (1 - Tdap)01/02/2012Hepatitis B vaccine (1 of 3 - 19+ 3-dose series)01/02/2012Pap smear2014Cervical cancer screen 2023HPV (without or with Pap)2023Flu vaccine (#1)5COVID-19 Vaccine ( season)5Annual Wellness Visit (Medicare)01/21/2025 HPV vaccine (No Doses [...] Procedures Procedure NamePriorityDate/TimeAssociated DiagnosisCommentsMRI CERVICAL SPINE WO BDCFMCSBWqkcyle25/07/2025 12:30 PM EST Unsteady gait Seizure disorder (HCC) MRI BRAIN W WO CAZBPKRFHoidpgz49/07/2025 12:29 PM EST Unsteady gait Seizure disorder (HCC) HCG, SERUM, GWARUKFPFNFTYGE22/07/2025 10:39 AM EST from Last 3 Months [...] 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 ??Xthc-ks-jzwyfkhf degenerative disc disease is noted at C5-C6. 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 Vnqu-nc-eievriez degenerative discdisease is noted at C5-C6. No [...] level. 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 ??Gupy-gw-hvrsljtv degenerative disc disease is noted at C5-C6. 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 Vist-nh-fcymlinm degenerative discdisease is noted at C5-C6. No [...] atthe C5-C6 disc level. Authorizing ProviderResult TypeResult Annie Feliciano DOI MRI ORDERABLESFinal Result * (ABNORMAL) HCG, SERUM, QUALITATIVE (02/26/2025 10:39 AM EST)ComponentValueRef RangeTest MethodAnalysis TimePerformed AtPathologist SignaturePreg, Serum POSITIVE(A)PYNNUEDB97/07/2025 10:39 AM ESTMERCY LABORATORIESComment: ? If HCG results do not concur with clinical observations, additional testing to confirm result is recommended. ??This test is not labeled for use as a tumor marker. ? [facility] has confirmed the use of plasma for this test. This has not been cleared or approved by the U.S. Food and Drug Administration. ??The FDA has determined that such clearance is not necessary. Specimen (Source)Anatomical Location / LateralityCollection Method / Volume Collection TimeReceived TimeBloodBLOOD SPECIMEN / Fctwaxq8702/26/2025 10:39 AM EST 02/26/2025 10:39 AM EST Narrative Authorizing ProviderResult TypeResult StatusRamos Feliciano DOCHEMISTRY ORDERABLESFinal ResultPerforming OrganizationAddressCity/State/ZIP CodePhone Number [facility] [place] [address], [facility] [phone] from Last 3 Months Insurance * Guarantor: Barbra Ascencio TypeRelation to PatientDate of BirthPhone Billing AddressPersonal/OxmgdcYnos1995 [facility] [address] [place] [address] Care Teams Team MemberRelationshipSpecialtyStart DateEnd Date Nathan Iyer MD [address] [place] [address] PCP - GeneralFamily Yrgquqoi55/7/25
--- OUTSIDE RECORDS SUMMARY | 2025-03-16 07:02 | XMS_ITS | Clinical Summary ---
Author Organization [facility] Address [address] [place] [address] Care Team Providers Care Occ Med Physician Name Role Phone Nathan Iyer MD Primary Care Provider Allergies Active AllergyReactionsCriticalityNoted DateCommentsEthosuximideRashLow 09/15/20147814Qokinqfrjry01/16/2024 Medications MedicationSigDispense QuantityRefillsLast FilledStart DateEnd DateStatus ammonium [...] tablet 5Active Active Problems ProblemNoted DateDiagnosed DateMental pdvyqchapi40/25/2024 Overview (01/15/2024): Mental Retardation She has undelrying Autism, MRDD and anxiety with s/s of PBA. She follows with psychiatry and was recently started on Lexapro and is doing well. Pseudobulbar bzajjw6608/06/2023Gait hanwxuuhsea58/16/2024 Overview (01/15/2024): Patient has been experiencing increased gait instability and balance problems in the past month noted by Levasy, increased tone in her extremities, dizziness when looking upwards which has been contributing to falls. She has had dizziness in the past, as noted above. She had an unwitnessed fall without reported loss of consciousness. She was evaluated recently after the [facility] at [facility] and had a He ad CT, which revealed no acute process. There was left supraorbital soft tissue laceration. Blood work 11/23/2022 revealed Lamictal 12.4, valproic acid 85. Carotid ultraound was very limited due to patient cooperation, no hemodynamic significant stenosis noted. For MRI or CTA she would require sedation per Levasy. Her balance is stable and there have been no falls since her last visit. Xykoniknx61/14/2019Anxiety /15/5039Fpgrcv01/15/2018History of seizure 09/03/2017Seizure disorder Overview (01/15/2024): Patient with history of seizure disorder. She was previously on Topamax and this was weaned. Ambulatory EEG from 2018 was normal. She is currently treated with Depakote and Lamictal. Bloodwork 08/07/2022 revealed Lamictal level 11.2, Depakote level 80.3, platelets 231. She is overall at baseline with no recent breakthrough events. Encounters DateTypeDepartmentCare KukeRyemjnqtjwp09/04/2025 9:30 AM ESTProcedure Visit [facility] [address] [place] [id number] Lai Alston, DPM FACFAS Onychomycosis (Primary Dx); Pain in right toe(s); Pain in left toe(s)02/23/2025amboo flowsheet [facility] [address] [place] [address] Lai Alston, DPM FACFAS from Last 3 Months Social History Tobacco UseTypesPacks/DayYears UsedDateSmoking Tobacco: NeverSmokeless Tobacco: Never Tobacco Cessation:Counseling Given: Yes Alcohol UseStandard Drinks/WeekCommentsNever0 (1 standard drink = 0.6 oz pure alcohol)CommentsUnknownSex and Gender InformationValueDate RecordedSex Assigned at BirthNot on fileLegal CszZckrrv11/15/2023 11:47 PM EDTGender IdentityNot on fileSexual OrientationNot on file Last Filed Vital Signs Vital SignReadingTime TakenCommentsBlood Xbgzpqwq662/6402/23/2025 9:47 AM EST Maefh668302/23/2025 9:47 AM ESTTemperature--Respiratory Ddse9296 11:05 AM EDTOxygen Yeasosrths71%01/21/2024 11:05 AM EDTInhaled Oxygen Concentration-- Jeypcs38.1 kg (128 lb)02/23/2025 9:47 AM ITPEqdmex813.1 cm (5' 5 )02/23/2025 9:47 AM ESTBody Mass Index21. 9:47 AM EST Plan of Treatment DateTypeDepartmentCare Team (Latest Contact Info)Zejtltmgete25/03/2026 9:30 AM ESTProcedure Visit [facility] [address] [place] [address] Lai Alston, DPM FACFAS [address] [place] [address] Health MaintenanceDue DateLast DoneCommentsPap Smear2014Cervical Cancer Zqcqvmgxs51/12/2023HPV/Alrxmb3201/01/2023OVID-19 Vaccine ( season) , 05/24/2020, 05/03/2020Influenza RkzvmkvZrkeiwjbk28/22/2025 Pneumococcal Vaccine: Pediatrics (0 to 5 Years) and At-Risk Patients (6 to 64 Years)Aged OutNo longer eligible based on patient's age to complete this topic Insurance [address] [place] [address] Care Teams Team MemberRelationshipSpecialtyStart DateEnd Nathan Iyer MD [address] [place] [address] [address] [place] [phone] PCP - GeneralFamily Yzwjxkkm48/19/24
[2025-03-16 08:16] LABS: Thyroid Stimulating Hormone 0.023 uIU/mL (0.358-3.740)
[2025-03-16 08:24] LABS: Iron 115.0 ug/dL (50.0-170.0); Percent Iron Saturation 28.1 %; Total Iron Binding Capacity 409.0 ug/dL (250.0-450.0)
== END 2025-03-16 06:58 | disposition home or self-care (01) ==
LOC: LAB 06:59
PROVIDERS: PCP Family Medicine; Visit Provider Internal Medicine Endocrinology, Diabetes & Metabolism
DX: Z13.29 Encounter for screening for other suspected endocrine disorder (principal); Z79.899 Other long term (current) drug therapy; E03.9 Hypothyroidism, unspecified
CPT/HCPCS: 36415; 83540; 83550; 84439; 84443